=== PATIENT | male | born 1940 | race Caucasian/White ===

== ENCOUNTER 2018-04-29 06:50 | Observation (INO) | payer MEDICARE, SELFPAY ==
[2018-04-29] VITALS (16 sets, daily range): BP systolic 116–159; BP diastolic 7–88; PULSE 62–75; RESP 14–19; TEMP 36.5–37; O2SAT 94–99; BMI 33.7
--- NOTE | 2018-04-29 06:55 | RAD_ITS ---
STUDY: X-RAY CHEST REASON FOR EXAM: Male, 77 years old. Chest pain. TECHNIQUE: Single frontal view of the chest. COMPARISON: June 24, 2017 FINDINGS: There is stable mild hyperexpansion. There is no demonstrated pleural abnormality. Normal size heart. Normal mediastinum and savana. Normal visualized pulmonary arteries. There is aortic tortuosity unchanged. Normal visualized thoracic spine. Normal visualized ribs, clavicles, and shoulders. There is no demonstrated abnormality of the visualized soft tissue structures of the upper abdomen. RAD/Chest 1 View IMPRESSION: Stable mild hyperexpansion. No acute pathology. Electronically Signed: Amado Sethi MD at 11:17 EDT , Service support ,
--- NOTE | 2018-04-29 10:15 | DT_ITS ---
This patient was seen during an EMR downtime April 22, 2018 - April 29, 2018. This patient may have a combination of paper and electronic documentation or all paper documentation. All documentation is viewable within the e-chart portion of [employer] for each patient visit.
--- NOTE | 2018-04-29 10:55 | PCM.HP.STD ---
Problem List (1) Chest pain Status: Acute Qualifiers: Chest pain type: unspecified Qualified Code(s): R07.9 - Chest pain, unspecified (2) CAD (coronary artery disease) Status: Chronic Qualifiers: Coronary Disease-Associated Artery/Lesion type: [place] artery Associated angina: with unspecified angina (3) Chronic renal failure, stage 3 (moderate) Status: Chronic (4) HTN (hypertension) Status: Chronic Qualifiers: Hypertension type: essential hypertension Qualified Code(s): I10 - Essential (primary) hypertension (5) ETHAN (obstructive sleep apnea) Status: Chronic Comment: new diagnosis 04/2016 History of Present Illness Date of Admission: 04/29/18 Chief Complaint: Chest pain - 1 day The patient is a 77 year old M with past medical history of CAD status post 6 stents, chronic atrial fibrillation status post ablation, on chronic anticoagulation, hypertension, type 2 diabetes not on medication who comes in with complaints of angina that has been going on for months. Patient follows up with Dr. Banks in the outpatient and also plan for stress test versus cardiac cath. Patient woke up in the morning of the admission around 4 AM was sudden gradual onset of chest pain which was in the substernal and left side of the chest. Pain was described as crushing associated with some nausea but no diaphoresis or dizziness or palpitation. Pain lasts for about 15-20 minutes and is usually relieved by nitroglycerin. Patient had more than 2 nitroglycerin at home but was not getting relieved his family called the ambulance. In the ED, patient's initial EKG was unremarkable. Vitals were stable. He got a couple more doses of nitro which was still not being relieved and he subsequently was put on a nitro drip. At time of being seen, pain is less now for over 10, remains on nitro drip, no dizziness or palpitations or orthopnea or PND or leg edema. Past Medical History Past Medical History (Chronic Problems): Chronic Problems Chronic renal failure, stage 3 (moderate) (Chronic) H/O cardiac radiofrequency ablation (Chronic) March 2017 at the [facility] facility in [place] ETHAN (obstructive sleep apnea) (Chronic) new diagnosis 04/2016 Skin cancer (Chronic) not melanomas Chronic fatigue (Chronic) CAD (coronary artery disease) (Chronic) Osteoarthritis (Chronic) Glucose intolerance (pre-diabetes) (Chronic) S/P PTCA (percutaneous transluminal coronary angioplasty) (Chronic) has had 6 stents PAF (paroxysmal atrial fibrillation) (Chronic) GERD (gastroesophageal reflux disease) (Chronic) HTN (hypertension) (Chronic) Obesity (Chronic) Allergies adhesive tape Allergy (Verified 09/18/17 09:49) Rash Latex, Natural Rubber Allergy (Verified 09/18/17 09:49) Other TAPE BREAKS OUT IN HIVES codeine Adverse Reaction (Verified 09/18/17 09:49) Other HEART RACE hydrocodone bitartrate [From Vicodin] Adverse Reaction (Verified 09/18/17 09:49) Nausea meperidine HCl [From Demerol] Adverse Reaction (Verified 09/18/17 09:49) Other HEART RACE morphine Adverse Reaction (Verified 09/18/17 09:49) Vomiting propoxyphene napsylate [From Darvocet-N] Adverse Reaction (Verified 09/18/17 09:49) Other HEART RACE Home Medications: Ambulatory Orders Medication Instructions Recorded Apixaban [Eliquis] 5 mg PO BID 05/18/16 Atorvastatin Calcium [Lipitor] 40 mg PO QHS 05/18/16 Cholecalciferol (VIT D3) [Vitamin 1,000 unit PO DAILY 05/18/16 D3] Pantoprazole Sodium [Protonix] 40 mg PO DAILY 05/18/16 Dofetilide [Tikosyn] 250 mcg PO Q12 #60 capsule 05/19/16 Magnesium Oxide [Mag-Ox 400] 400 mg PO DAILYCM #90 tablet 05/23/16 Melatonin 3 mg PO QHS #90 tablet 05/23/16 Nitroglycerin [Nitrostat] 0.4 mg SUBLINGUAL Q5M PRN #1 tablet 05/23/16 Aspirin E.C. [Ecotrin] 81 mg PO DAILY@0807/26/16 Cyanocobalamin [Vitamin B12] 1,000 mcg PO DAILY@00 11/23/16 Metoprolol(XL)Succ [Toprol Xl 25 mg PO DAILY 06/24/17 (Beta Rebeca)] Senna/Docusate Sodium [Senokot-S] 1 tablet PO DAILY 06/24/17 Losartan Potassium [Cozaar] 50 mg PO DAILY 09/18/17 Celecoxib [Celebrex] 200 mg PO BID #30 capsule 10/03/17 Surgical History: total knee arthroplasty - Left, - - cervical fusion, 3 rotator cuff surgeries, lumbar fusion with an 8 inch kj, carpal tunnel surgery BL, 6 stents and 8 heart caths, radiofrequency ablation for atrial fibrillation Psychiatric History: No pertinent psych hx Smoking Status: Never smoker - *Family History Maternal History Items: Heart Disease Paternal History Items: No pertinent history Review of Systems Constitutional: Denies: Anorexia, Chills, Fever, Malaise, Weakness, Weight Change Eyes: Denies: Blurred vision, Cataracts, Conjunctivae Inflammation, Pain, Redness, Vision Change HEENT: Denies: Difficulty Hearing, Difficulty Swallowing, Head Aches, Hearing Changes, Nasal bleeding, Sinus Congestion, Sinus Drainage Cardiovascular: Reports: Chest Pain, Chest Pressure, Chest Tightness, Light Headedness. Denies: Heaviness, Orthopnea, Palpitations, Paroxysmal Noc. Dyspnea, Syncope Respiratory: Reports: Shortness of breath upon exertion. Denies: Cough, Hemoptysis, Pleuritic Pain, Shortness of Breath, Shortness of breath at rest, Sputum production Gastrointestinal: Denies: Abdominal Pain, Constipation, Hematemesis, Hematochezia, Nausea, Vomiting Genitourinary: Denies: Dysuria, Frequency, Incontinence, Nocturia Musculoskeletal: Denies: Joint Pain, Joint stiffness, Joint swelling, Joint Tenderness Skin: Denies: Rash, Wounds Neurological: Denies: Numbness, Tingling, Focal weakness Psychiatric: Denies: Anxiety, Depression, Homicidal Ideations, Suicidal Ideations Hematologic/ Lymphatic: Denies: Easy Bruising, Easy Bleeding VTE Information - Inpt Only VTE Present on Admission: No VTE Pharm Prophylaxis ordered?: Yes - Physical Exam General: Alert, Oriented x3, Cooperative, No apparent distress, - - Obese, not pale, no jaundice HEENT: Atraumatic, PERRLA, EOMI, Normocephalic Oral: Moist Mucosa Neck: Supple Lungs: Clear to auscultation, Normal air movement Cardiovascular: Regular rate, Regular Rhythm, Normal S1, Normal S2, No murmurs Abdomen: Bowel Sounds Present, Soft, Non Tender, Non-Distended, No Hepato-splenomegaly Extremities: No edema Skin: No rashes, No breakdown Musculoskeletal: No Tenderness to Palpation of Joints or Extremities Neurological: Cranial nerves II-XII grossly intact Psych/Mental Status: Normal Affect, Appropriate Weight: 103.5 kg Body Mass Index (BMI) 33.7 Assessment/Plan All Active Problems Chest pain (Acute) DVT (deep venous thrombosis) (Resolved) Diastolic CHF, acute (Resolved) 77 year old M with past medical history of CAD status post 6 stents, chronic atrial fibrillation status post ablation, on chronic anticoagulation, hypertension, type 2 diabetes not on medication who comes in with complaints of angina that has been going on for months. 1. Chest pain, acute on chronic angina, and the patient with complex cardiac history, history of 6 stents, no acute ST-T changes, stable vitals, initial troponins have been negative Plan: Admit to PCU, monitor on telemetry, trend troponins, cardiology consult in the light of patient's past medical history, G records from the [facility] 2. CAD status post stents, aspirin, statin, metoprolol, losartan 3. Chronic Atrial fibrillation status post ablation, in normal sinus rhythm, on Eliquis and Tikosyn 4. Hypertension, controlled, continue losartan and metoprolol 5. Obesity, BMI of 33.7, diet and exercise recommended 6. Chronic low back pain status post kj placement, not on any chronic pain medication back from NSAIDs, will hold NSAIDs for now 7. CKD stage III, creatinine appears around 1.75, will obtain records from the [facility] system to compare 8. DVT prophylaxis with heparin subcu Code Visit OBSV E&M: [id number] Initial observation care L3
--- NOTE | 2018-04-29 12:53 | CHAPLAIN ---
Type of Pastoral Visit _x__ Initial Visit ___ Follow-up Visit ___ On-call Visit ___ General Patient Visit ___ Spiritual Assessment ___ Family Conference ___ Bereavement ___ Rapid Response ___ Code Blue ___ Other (describe below) Pastoral Care Referral From ___ Patient _x__ Family ___ Nurse ___ Physician ___ Mobile Device Developer ___ Plugging Machine Operator ___ Other (describe below) Sacrament/Intervention _x__ Active listening ___ Anointing ___ Episcopal ___ Bereavement ___ Communion ___ Katelin exploration ___ ___ Life review _x__ Prayer ___ Reconciliation ___ Sacrament of Sick _x__ Supportive presence ___ Wedding ___ Other (describe below) Pastoral Comments family member asked for a 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
[2018-04-29] MEDS: Aspirin E.C. 81 MG Tablet PO (13:28)
[2018-04-29] MEDS: Losartan Potassium 50 MG Tablet PO (13:28)
[2018-04-29] MEDS: Cyanocobalamin 500 MCG Tablet 1000 MCG PO (13:28)
[2018-04-29] MEDS: Dofetilide 250 MCG Capsule PO ×2 (13:29→22:25)
[2018-04-29] MEDS: Metoprolol(XL)Succ 25 MG Tablet PO (13:29)
[2018-04-29] MEDS: Pantoprazole Sodium 40 MG Tablet PO (13:29)
[2018-04-29] MEDS: Senna/Docusate Sodium 1 Tablet PO (13:29)
[2018-04-29] MEDS: APIXABAN 5 MG TABLET PO (13:30)
--- NOTE | 2018-04-29 13:40 | EKG12_ITS ---
Test Reason : CP Blood Pressure : / mmHG Vent. Rate : 071 BPM Atrial Rate : 071 BPM P-R Int : 222 ms QRS Dur : 084 ms QT Int : 406 ms P-R-T Axes : -20 021 010 degrees QTc Int : 441 ms Sinus rhythm with 1st degree A-V block Otherwise normal ECG Confirmed by JENNA LORD, WALTER ([id number]), science editor NAINA VALERIO ([id number] on 05/01/2018 5:57:44 PM Referred By: Sergio Odom Confirmed By:WALTER WEST MD
--- NOTE | 2018-04-29 13:40 | EKG12_ITS ---
Test Reason : REPEAT-CP Blood Pressure : / mmHG Vent. Rate : 080 BPM Atrial Rate : 080 BPM P-R Int : 206 ms QRS Dur : 082 ms QT Int : 392 ms P-R-T Axes : 000 021 013 degrees QTc Int : 452 ms Normal sinus rhythm Normal ECG Confirmed by JENNA LORD, WALTER ([id number]), market editor NAINA VALERIO ([id number]) on 05/01/2018 5:57:24 PM Referred By: Sergio Odom Confirmed By:WALTER WEST MD
[2018-04-29 16:43] LABS: BUN 18 mg/dL (7-18); BUN/Creat Ratio 13.3 RATIO (10-20); Calcium,Total 8.6 mg/dL (8.5-10.1); Creatinine, Serum 1.35 mg/dL (0.70-1.30); EST Glomerular Filtration Rate 54 mL/min (>60); Est Glom Filt Rate - Afr Amer 65 mL/min (>60); Glucose 117 mg/dL (74-106)
[2018-04-29 16:44] LABS: Anion Gap 7 (5-15); Chloride 108 mmol/L (98-107); Sodium Level 142 mmol/L (136-145)
--- NOTE | 2018-04-29 18:44 | CON.PCM_ITS ---
Reason for Consult Date of Consultation: 04/29/18 Reason for Consultation: Chest discomfort. History of Present Illness: The patient is a 77 year old M with previously known coronary artery disease status post previous stenting as well as radiofrequency ablation has been complaining of chest discomfort over the last few days. He says that this morning he started experiencing chest discomfort described as a heaviness radiating across his neck for which he took one sublingual nitroglycerin. 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 He was started on intravenous nitroglycerin with improvement in his discomfort. He has not had any palpitations no dizziness no diaphoresis no near syncope or syncope he has not had any irregular heartbeats. He has been compliant with all his medications. Currently he is pain-free. [] Past Medical History Allergies/Adverse Reactions: Allergies adhesive tape Allergy (Verified 09/18/17 09:49) Rash Latex, Natural Rubber Allergy (Verified 09/18/17 09:49) Other TAPE BREAKS OUT IN HIVES codeine Adverse Reaction (Verified 09/18/17 09:49) Other HEART RACE hydrocodone bitartrate [From Vicodin] Adverse Reaction (Verified 09/18/17 09:49) Nausea meperidine HCl [From Demerol] Adverse Reaction (Verified 09/18/17 09:49) Other HEART RACE morphine Adverse Reaction (Verified 09/18/17 09:49) Vomiting propoxyphene napsylate [From Darvocet-N] Adverse Reaction (Verified 09/18/17 09: 49) Other HEART RACE Home Medications: Ambulatory Orders Medication Instructions Recorded Apixaban [Eliquis] 5 mg PO BID 05/18/16 Atorvastatin Calcium [Lipitor] 40 mg PO QHS 05/18/16 Cholecalciferol (VIT D3) [Vitamin 1,000 unit PO DAILY 05/18/16 D3] Pantoprazole Sodium [Protonix] 40 mg PO DAILY 05/18/16 Dofetilide [Tikosyn] 250 mcg PO Q12 #60 capsule 05/19/16 Magnesium Oxide [Mag-Ox 400] 400 mg PO DAILYCM #90 tablet 05/23/16 Melatonin 3 mg PO QHS #90 tablet 05/23/16 Nitroglycerin [Nitrostat] 0.4 mg SUBLINGUAL Q5M PRN #1 tablet 05/23/16 Aspirin E.C. [Ecotrin] 81 mg PO DAILY@0800 07/26/16 Cyanocobalamin [Vitamin B12] 1,000 mcg PO DAILY@0800 11/23/16 Metoprolol(XL)Succ [Toprol Xl 25 mg PO DAILY 06/24/17 (Beta Rebeca)] Senna/Docusate Sodium [Senokot-S] 1 tablet PO DAILY 06/24/17 Losartan Potassium [Cozaar] 50 mg PO DAILY 09/18/17 Celecoxib [Celebrex] 200 mg PO BID #30 capsule 10/03/17 Past Medical History (Chronic Problems): Chronic Problems Chronic renal failure, stage 3 (moderate) (Chronic) H/O cardiac radiofrequency ablation (Chronic) March 2017 at the [facility] facility in [place] ETHAN (obstructive sleep apnea) (Chronic) new diagnosis 04/2016 Skin cancer (Chronic) not melanomas Chronic fatigue (Chronic) CAD (coronary artery disease) (Chronic) Osteoarthritis (Chronic) Glucose intolerance (pre-diabetes) (Chronic) S/P PTCA (percutaneous transluminal coronary angioplasty) (Chronic) has had 6 stents PAF (paroxysmal atrial fibrillation) (Chronic) GERD (gastroesophageal reflux disease) (Chronic) HTN (hypertension) (Chronic) Obesity (Chronic) Surgical History: total knee arthroplasty - Left, - - cervical fusion, 3 rotator cuff surgeries, lumbar fusion with an 8 inch kj, carpal tunnel surgery BL, 6 stents and 8 heart caths, radiofrequency ablation for atrial fibrillation Psychiatric History: No pertinent psych hx - *Family History Maternal History Items: Heart Disease Paternal History Items: No pertinent history Smoking Status: Never smoker Alcohol: None Drugs: None Review of Systems - Review of Systems General: Denies: Fever, Night Sweats, Fatigue Cardiovascular: Reports: Chest Discomfort, Chest Pressure, Chest Tightness. Denies: Shortness of Breath, Orthopnea, PND, Peripheral Edema, Palpitations, Lightheadedness, Dizziness, Near Syncope, Syncope Respiratory: Denies: Cough, Sputum Production, Hemoptysis Gastrointestinal: Denies: Hematemesis, Hematochezia, Melena Genitourinary: Denies: Dysuria, Hematuria Skin: Denies: Rash Subjectve: Pleasant gentleman in no apparent distress Objective: Vital Signs Temp Pulse Resp BP Pulse Ox 98.3 F 67 14 128/75 H 97 04/29/18 18:00 04/29/18 18:00 04/29/18 18:00 04/29/18 18:00 04/29/18 18:00 Oxygen Delivery Method Room Air Weight: 228 lb 2.855 oz Body Mass Index (BMI) 33.7 Intake and Output for Last 24 Hours 04/27/18 04/28/18 04/29/18 23:59 23:59 23:59 Intake Total 567 / 567 Balance 567 / 567 General: Awake, Alert, Oriented x 3 HEENT: PERRL, EOMI, Sclera Non Icteric Neck: Supple, Good ROM, No Lymph Node Enlargement Lungs: Clear to auscultation Cardiovascular: Regular Rhythm, Normal S1, Normal S2, No Murmurs, No Rubs, No Gallops Vascular: No Carotid Bruits, Normal Femoral Pulses, Normal Radial Pulses, Normal Dorsalis Pedal Pulse, Normal Posterior Tibial Pulses Abdomen: Bowel Sounds Present, Soft, Non Tender, No HSM, No Organomegaly Extremities: No Cyanosis, No Clubbing, No edema Neurological: No Focal Motor or Sensory Deficit 04/29/18 11:40: Troponin I < 0.015 Rhythm: EKG: Normal sinus rhythm with a rate of 80 bpm and no acute changes. Assessment/Plan 1. Chest pain-recent angina. Ms. Hodgson presents with chest discomfort which is suggestive of recent angina. This appears to be well relieved by nitroglycerin. Due to his previous history of coronary artery stenting my recommendation will be for us to forego stress testing and proceed directly to a cardiac catheterization. Risks benefits and alternatives were explained to him he understands and agrees to proceed. Performed the above via the radial approach. 2. History of atrial fibrillation. He does have a history of atrial fibrillation currently maintaining sinus rhythm on the anticoagulation as well as the Tikosyn. My recommendation would be for him to continue the same. The anticoagulation however will be held pending his cardiac catheterization. 3. Hypertension. His blood pressure appears to be well controlled on the current medications with the Cozaar which will be continued. 4. Lipidemia. He does have a history of hyperlipidemia and following his coronary artery stenting the plan would be to continue him on high intensity statin. No other major changes will be made. Thank you for allowing me to participate in the care of your patient. Please don't hesitate to call if any issues arise
[2018-04-29] MEDS: MELATONIN 3 MG TABLET PO (22:25)
[2018-04-29] MEDS: Atorvastatin Calcium 40 MG Tablet PO (22:25)
[2018-04-30] VITALS (15 sets, daily range): BP systolic 96–132; BP diastolic 61–76; PULSE 58–65; RESP 14–16; TEMP 36.8–36.9; O2SAT 94–99
[2018-04-30 03:57] LABS: Hematocrit 41.1 % (40-54); Hemoglobin 13.9 g/dl (13.0-16.5); Mean Corp Hgb Conc 33.8 g/gl (32-36); Mean Corpuscular Hgb 29.7 pg (27.0-32.0); Mean Corpuscular Volume 87.8 fL (80-94); Mean Platelet Vol. 9.1 fl (6.2-12.0); Platelet Count 188 K/mm3 (150-450); RBC Distribution Width CV 14.5 % (11.6-14.6); RBC Distribution Width SD 46.5 fl (35.1-43.9); Red Blood Count 4.68 M/mm3 (4.6-6.2); White Blood Count 7.4 K/mm3 (4.4-11.0)
[2018-04-30 04:02] LABS: International Normalized Ratio 1.2; Prothrombin Time (Protime)PT. 15.3 SECONDS (11.7-14.9)
[2018-04-30 04:15] LABS: Anion Gap 6 (5-15); BUN 15 mg/dL (7-18); BUN/Creat Ratio 11.8 RATIO (10-20); Calcium,Total 8.9 mg/dL (8.5-10.1); Chloride 110 mmol/L (98-107); Creatinine, Serum 1.27 mg/dL (0.70-1.30); EST Glomerular Filtration Rate 58 mL/min (>60); Est Glom Filt Rate - Afr Amer 71 mL/min (>60); Glucose 108 mg/dL (74-106); Potassium 4.3 mmol/L (3.5-5.1); Sodium Level 144 mmol/L (136-145)
[2018-04-30 04:28] LABS: Scan Indicated on CBC? Y/N NO
--- NOTE | 2018-04-30 05:00 | EKG12_ITS ---
Test Reason : AM EKG Blood Pressure : / mmHG Vent. Rate : 083 BPM Atrial Rate : 083 BPM P-R Int : 252 ms QRS Dur : 080 ms QT Int : 390 ms P-R-T Axes : 037 029 013 degrees QTc Int : 458 ms Sinus rhythm with 1st degree A-V block Otherwise normal ECG Confirmed by MARISOL LORD, EVARISTO ([id number]), news copy editor NAINA VALERIO ([id number]) on 05/03/2018 1:44:20 PM Referred By: Sergio Odom Confirmed By:EVARISTO DAMON MD
[2018-04-30] MEDS: Losartan Potassium 50 MG Tablet PO (05:20)
[2018-04-30] MEDS: Metoprolol(XL)Succ 25 MG Tablet PO (05:20)
[2018-04-30] MEDS: Dofetilide 250 MCG Capsule PO (05:20)
[2018-04-30] MEDS: Aspirin E.C. 81 MG Tablet PO (05:21)
[2018-04-30 05:41] LABS: Bacteria 0 SEEN /hpf (None Seen); Mucous, Urine 0 SEEN /hpf (<or=2+); Red Blood Cells-Urine 0 SEEN /hpf (0-5); White Blood Cells 0 SEEN /hpf (0-5)
[2018-04-30 05:50] LABS: Color, Urine Yellow (Yellow); Glucose, Dipstick Normal (Normal); Ketone-Dipstick Negative (Negative); Leukocyte Esterase-Dipstick Negative /ul (Negative); Nitrite-Dipstick Negative (Negative); Occult Blood-Urine Negative /ul (Negative); Protein-Dipstick Negative (Negative); Urine Bilirubin Dipstick Negative (Negative); Urine Clarity Sl. Cloudy (Clear); Urine Urobilinogen Normal (Normal)
[2018-04-30 05:59] LABS: Squamous Epithelial Cells - UA 0-5 SEEN /hpf (0-5)
--- NOTE | 2018-04-30 06:58 | PCM.PN.HOSP ---
Vitals/I&O's: Vital Signs Temp Pulse Resp BP Pulse Ox 98.4 F 65 16 132/76 H 98 04/30/18 05:18 04/30/18 05:20 04/30/18 05:18 04/30/18 05:18 04/30/18 05:18 Oxygen Delivery Method Room Air Weight: 103.5 kg Body Mass Index (BMI) 33.7 Intake and Output for Last 24 Hours 04/28/18 04/29/18 04/30/18 23:59 23:59 23:59 Intake Total 567 / 567 Balance 567 / 567 Laboratory Results 04/29/18 11:40: Troponin I < 0.015 04/30/18 01:50: Urine Color Yellow, Urine Clarity Sl. Cloudy, Urine pH 6.0, Ur Specific [place] 1.010, Urine Protein Negative, Urine Glucose (UA) Normal, Urine Ketones Negative, Urine Occult Blood Negative, Urine Nitrite Negative, Urine Bilirubin Negative, Urine Urobilinogen Normal, Ur Leukocyte Esterase Negative, Urine RBC 0 SEEN, Urine WBC 0 SEEN, Ur Squamous Epith Cells 0-5 SEEN, Urine Bacteria 0 SEEN, Urine Mucus 0 SEEN 04/30/18 03:40: WBC 7.4, RBC 4.68, Hgb 13.9, Hct 41.1, MCV 87.8, MCH 29.7, MCHC 33.8, RDW 14.5, RDW Differential 46.5 H, Plt Count 188, MPV 9.1 04/30/18 03:40: Sodium 144, Potassium 4.3, Chloride 110 H, Carbon Dioxide 28.0, Anion Gap 6, BUN 15, Creatinine 1.27, Est GFR (MDRD) Af Amer 71, Est GFR (MDRD) Non-Af 58 L, BUN/Creatinine Ratio 11.8, Glucose 108 H, Calcium 8.9 04/30/18 03:40: PT 15.3 H, INR 1.2, APTT 32.0 Current Medications Aspirin (Ecotrin) 81 mg PO DAILY@0800 [facility] Last Admin: 04/30/18 05:21 Dose: 81 mg Atorvastatin Calcium (Lipitor) 40 mg PO QHS [facility] Last Admin: 04/29/18 22:25 Dose: 40 mg Bisacodyl (Dulcolax) 5 mg PO DAILY PRN PRN PRN Reason: Constipation Cholecalciferol (Vitamin D) 1,000 unit PO DAILY [facility] Last Admin: 04/29/18 13:29 Dose: 1,000 unit Cyanocobalamin (Vitamin B12) 1,000 mcg PO DAILY@0800 [facility] Last Admin: 04/29/18 13:28 Dose: 1,000 mcg Dofetilide (Tikosyn) 250 mcg PO Q12 [facility] Last Admin: 04/30/18 05:20 Dose: 250 mcg Sodium Chloride () 1,000 mls @ 15 mls/hr IV .Q48H [facility] PRN Reason: KVO Losartan Potassium (Cozaar) 50 mg PO DAILY [facility] Last Admin: 04/30/18 05:20 Dose: 50 mg Magnesium [facility]ide (Mag-Ox 400) [facility] Melatonin (Melatonin) 3 mg PO QHS [facility] Last Admin: 04/29/18 22:25 Dose: 3 mg Metoprolol Succinate (Toprol Xl (Beta Rebeca)) 25 mg PO DAILY [facility] Last Admin: 04/30/18 05:20 Dose: 25 mg Ondansetron HCl (Zofran) 4 mg IV Q8H PRN PRN PRN Reason: NAUSEA Pantoprazole Sodium (Protonix) 40 mg PO DAILY [facility] Last Admin: 04/29/18 13:29 Dose: 40 mg Psyllium Hydrophilic Mucilloid (Metamucil) 1 packet PO DAILY PRN PRN PRN Reason: CONSTIPATION Senna/Docusate Sodium (Senokot-S, Mague-Colace) 1 tablet PO DAILY [facility] Last Admin: 04/29/18 13:29 Dose: 1 tablet Medical Necessity - Tobacco Use Smoking Status: Never smoker Assessment/Plan All Active Problems Chest pain (Acute) DVT (deep venous thrombosis) (Resolved) Diastolic CHF, acute (Resolved)
--- NOTE | 2018-04-30 08:07 | PN.CARD_ITS ---
Subjectve: The patient was seen and evaluated. Appears to be doing well. Had uneventful night. Objective: Vital Signs Temp Pulse Resp BP Pulse Ox 98.4 F 65 16 132/76 H 98 04/30/18 05:18 04/30/18 05:20 04/30/18 05:18 04/30/18 05:18 04/30/18 05:18 Oxygen Delivery Method Room Air Weight: 228 lb 2.855 oz Body Mass Index (BMI) 33.7 Intake and Output for Last 24 Hours 04/28/18 04/29/18 04/30/18 23:59 23:59 23:59 Intake Total 567 / 567 Balance 567 / 567 General: Awake, Alert, Oriented x 3 HEENT: PERRL, EOMI, Sclera Non Icteric Neck: Supple, Good ROM, No Lymph Node Enlargement Lungs: Clear to auscultation Cardiovascular: Regular Rhythm, Normal S1, Normal S2, No Murmurs, No Rubs, No Gallops Vascular: No Carotid Bruits, Normal Femoral Pulses, Normal Radial Pulses, Normal Dorsalis Pedal Pulse, Normal Posterior Tibial Pulses Abdomen: Bowel Sounds Present, Soft, Non Tender, No HSM, No Organomegaly Extremities: No Cyanosis, No Clubbing, No edema Neurological: No Focal Motor or Sensory Deficit 04/29/18 11:40: Troponin I < 0.015 04/30/18 01:50: Urine Color Yellow, Urine Clarity Sl. Cloudy, Urine pH 6.0, Ur Specific [place] 1.010, Urine Protein Negative, Urine Glucose (UA) Normal, Urine Ketones Negative, Urine Occult Blood Negative, Urine Nitrite Negative, Urine Bilirubin Negative, Urine Urobilinogen Normal, Ur Leukocyte Esterase Negative, Urine RBC 0 SEEN, Urine WBC 0 SEEN 04/30/18 03:40: WBC 7.4, RBC 4.68, Hgb 13.9, Hct 41.1, MCV 87.8, MCH 29.7, MCHC 33.8, RDW 14.5, RDW Differential 46.5 H, Plt Count 188, MPV 9.1 04/30/18 03:40: Sodium 144, Potassium 4.3, Chloride 110 H, Carbon Dioxide 28.0, Anion Gap 6, BUN 15, Creatinine 1.27, Est GFR (MDRD) Af Amer 71, Est GFR (MDRD) Non-Af 58 L, BUN/Creatinine Ratio 11.8, Glucose 108 H, Calcium 8.9 04/30/18 03:40: PT 15.3 H, INR 1.2, APTT 32.0 Rhythm: EKG: ECHO: Stress Test: Cardiac Cath: PCI: CT Surgery: Holter monitor: EPS: PPM: CXR: Chest CT Scan: Medical Necessity - Tobacco Use Smoking Status: Never smoker Assessment/Plan 1. Chest pain-recent angina. Ms. Hodgson presents with chest discomfort which is suggestive of recent angina. Cardiac catheterization this morning demonstrated the following: Normal left main coronary artery. Left anterior descending artery previously stented with mild in-stent stenosis. Ramus intermedius with mild diffuse proximal disease. Left circumflex artery with no high-grade stenosis. Codominant right coronary artery with no high-grade stenosis. Preserved left ventricular ejection fraction. Based on the above angiographic findings the patient would be continued on medical therapy maximizing it and adding Norvasc to his regimen. 2. History of atrial fibrillation. He does have a history of atrial fibrillation currently maintaining sinus rhythm on the anticoagulation as well as the Tikosyn. My recommendation would be for him to continue the same. 3. Hypertension. His blood pressure appears to be well controlled on the current medications with the Cozaar which will be continued. 4. Lipidemia. He does have a history of hyperlipidemia and following his coronary artery stenting the plan would be to continue him on high intensity statin. No other major changes will be made. Thank you for allowing me to participate in the care of your patient. Please don't hesitate to call if any issues arise From the cardiac standpoint the patient can be discharged later today.
--- NOTE | 2018-04-30 08:24 | CL.D_ITS ---
Patient Name: JG CHAHAL Study Date: 04/30/2018 Performing: Humberto Tierney MD Ht: 69 inches 175 cm : 1940 Wt: 229.6 lbs 104 kg Age: 77 Gender: male BSA: 2.19 PROCEDURE(S) PERFORMED [id number] CLINICAL PROFILE AND INDICATIONS Indications: Worsening Angina Heart Failure: None Stress/Imaging Stress/Image Study Performed: No CAD Presentations: Stable angina. CONCLUSIONS Mild diffuse coronary atherosclerosis involving mild in-stent stenosis of the stent in the left anter ior descending artery with no high-grade stenosis noted. RECOMMENDATIONS Medical therapy Resume anticoagulation Sunday p.m. DESCRIPTION OF PROCEDURE The patient arrived to the procedure lab. The risks and benefits of the procedure as well as a full d escription of our services here and current unavailability of surgical backup were fully explained to the patient and/or their significant other prior to the catheterization. The Timeout was completed, verifying the correct patient and procedure. The patient's procedural site was prepped and draped in the usual fashion. Local anesthetic was given subcutaneously to right radial region with Lidocaine 2% . Using a modified Seldinger technique, arterial access was obtained via the right radial artery, a 6 Fr sheath was inserted. Left Coronary Artery selective angiography was performed in multiple views u sing a 5 Fr. 4.0 Hurricane catheter. Right Coronary Artery selective angiography was then performed in mu ltiple views using a 5 Fr. 4.0 Hurricane catheter. Left Ventriculography was performed in VARELA projection using a 5 Fr. Pigtail catheter. LV to AO pullback pressures were then recorded.The arterial sheath wa s pulled and a TR Band was applied for hemostasis 14ml air CORONARY ANGIOGRAPHY DOMINANCE: Co- Dominant LEFT HEART ASSESSMENT Left Ventricular Ejection Fraction: by LV Gram 60 % Normal LV wall motion Normal Left Ventricular systolic function LEFT MAIN: Angiographically normal LEFT ANTERIOR DECENDING ARTERY: Mild luminal irregularities less than 30% PROX LAD: Previously placed stent has an instent 30 % restenosis MID LAD: Previously placed stent has an instent 30 % restenosis CIRCUMFLEX ARTERY: Mild luminal irregularities OM 1: Ostial - 50 % Stenosis RAMUS: Mild luminal irregularities RIGHT CORONARY ARTERY: Moderate luminal irregularities up to 50% COMPLICATIONS No Complications PROCEDURE MEDICATIONS Versed 1 mg IV Fentanyl 50 mcg IV Oxygen: 2 L/min via nasal cannula Heparin diluted in 23cc Heparinized saline. Patient given 10cc IA of this solution. 04/30/2018 07:49: 51 Verapamil 2.5mg, Ntg 100mcgs, 2000 units of Heparin diluted in 23cc Heparinized saline. Patient give n 10cc IA of this solution. 04/30/2018 07:49:51 SUMMARY OF HEMODYNAMIC DATA Time AIR REST ECG 07:22:10 AO 124/76 (96) SA 07:52:21 LV 144/9, 19 07:59:09 LV 146/9, 18 07:59:15 LV 139/12, 23 08:00:43 LVp 142/10, 25 08:00:49 AOp 149/78 (106) 08:00:54 Signed By Humberto Tierney MD On 04/30/2018 08:23:25 Humberto Tierney MD
[2018-04-30] MEDS: Magnesium Oxide 400 MG Tablet PO (08:36)
[2018-04-30] MEDS: Cyanocobalamin 500 MCG Tablet 1000 MCG PO (08:37)
--- NOTE | 2018-04-30 08:45 | CASEMGMT ---
According to [employer] website, the following are in-network tertiary facilities: [facility], [place], [facility], [facility], [facility], and . Sarah [facility] CM
[2018-04-30] MEDS: Pantoprazole Sodium 40 MG Tablet PO (09:02)
[2018-04-30] MEDS: Senna/Docusate Sodium 1 Tablet PO ×2 (09:02)
[2018-04-30] MEDS: amLODIPine 5 MG Tablet PO (09:04)
--- NOTE | 2018-04-30 10:13 | PCM.DC ---
You will use the following diet at home:: Cardiac Discharge Activity: - - Follow post-op cath instructions. Call your doctor if your incision/area has: Continuous Slow Oozing, Sudden Increased Bleeding, Increased Pain/ Swelling, Increased Redness, Foul Smelling Discharge, Swelling at the incision site Call your doctor if you observe: Shortness of breath, Dizziness, Fainting spells, Chest pain, Increased palpitations (irregular heartbeat) Allergies/Adverse Reactions: Allergies adhesive tape Allergy (Verified 09/18/17 09:49) Rash Latex, Natural Rubber Allergy (Verified 09/18/17 09:49) Other TAPE BREAKS OUT IN HIVES codeine Adverse Reaction (Verified 09/18/17 09:49) Other HEART RACE hydrocodone bitartrate [From Vicodin] Adverse Reaction (Verified 09/18/17 09:49) Nausea meperidine HCl [From Demerol] Adverse Reaction (Verified 09/18/17 09:49) Other HEART RACE morphine Adverse Reaction (Verified 09/18/17 09:49) Vomiting propoxyphene napsylate [From Darvocet-N] Adverse Reaction (Verified 09/18/17 09:49) Other HEART RACE Medications to take at Discharge Apixaban [Eliquis] 5 mg PO BID 05/18/16 Atorvastatin Calcium [Lipitor] 40 mg PO QHS 05/18/16 Cholecalciferol (VIT D3) [Vitamin D3] 1,000 unit PO DAILY 05/18/16 Pantoprazole Sodium [Protonix] 40 mg PO DAILY 05/18/16 Dofetilide [Tikosyn] 250 mcg PO Q12 #60 capsule 05/19/16 Magnesium Oxide [Mag-Ox 400] 400 mg PO DAILYCM #90 tablet 05/23/16 Melatonin 3 mg PO QHS #90 tablet 05/23/16 Nitroglycerin [Nitrostat] 0.4 mg SUBLINGUAL Q5M PRN #1 tablet 05/23/16 Aspirin E.C. [Ecotrin] 81 mg PO DAILY@0807/26/16 Cyanocobalamin [Vitamin B12] 1,000 mcg PO DAILY@0811/23/16 Metoprolol(XL)Succ [Toprol Xl (Beta Rebeca)] 25 mg PO DAILY 06/24/17 Senna/Docusate Sodium [Senokot-S] 1 tablet PO DAILY 06/24/17 Losartan Potassium [Cozaar] 50 mg PO DAILY 09/18/17 Celecoxib [Celebrex] 200 mg PO BID #30 capsule 10/03/17 Amlodipine [Norvasc] 5 mg PO DAILY #30 tab 04/30/18 The following prescriptions were given: Amlodipine [Norvasc] 5 mg PO DAILY #30 tab Primary Care Physician: Galindo Yuan MD [Primary Care Provider] - Please follow up with your Primary Care Physician in: 1 Week Please Follow Up With: Mann Bee MD When: 2 Weeks Proposed Discharge Date: 04/30/18
--- NOTE | 2018-04-30 10:17 | DCINST_ITS ---
You will use the following diet at home:: Cardiac Discharge Activity: - - Follow post-op cath instructions. Call your doctor if your incision/area has: Continuous Slow Oozing, Sudden Increased Bleeding, Increased Pain/ Swelling, Increased Redness, Foul Smelling Discharge, Swelling at the incision site Call your doctor if you observe: Shortness of breath, Dizziness, Fainting spells , Chest pain, Increased palpitations (irregular heartbeat) Allergies/Adverse Reactions: Allergies adhesive tape Allergy (Verified 09/18/17 09:49) Rash Latex, Natural Rubber Allergy (Verified 09/18/17 09:49) Other TAPE BREAKS OUT IN HIVES codeine Adverse Reaction (Verified 09/18/17 09:49) Other HEART RACE hydrocodone bitartrate [From Vicodin] Adverse Reaction (Verified 09/18/17 09:49) Nausea meperidine HCl [From Demerol] Adverse Reaction (Verified 09/18/17 09:49) Other HEART RACE morphine Adverse Reaction (Verified 09/18/17 09:49) Vomiting propoxyphene napsylate [From Darvocet-N] Adverse Reaction (Verified 09/18/17 09: 49) Other HEART RACE Medications to take at Discharge Apixaban [Eliquis] 5 mg PO BID 05/18/16 Atorvastatin Calcium [Lipitor] 40 mg PO QHS 05/18/16 Cholecalciferol (VIT D3) [Vitamin D3] 1,000 unit PO DAILY 05/18/16 Pantoprazole Sodium [Protonix] 40 mg PO DAILY 05/18/16 Dofetilide [Tikosyn] 250 mcg PO Q12 #60 capsule 05/19/16 Magnesium Oxide [Mag-Ox 400] 400 mg PO DAILYCM #90 tablet 05/23/16 Melatonin 3 mg PO QHS #90 tablet 05/23/16 Nitroglycerin [Nitrostat] 0.4 mg SUBLINGUAL Q5M PRN #1 tablet 05/23/16 Aspirin E.C. [Ecotrin] 81 mg PO DAILY@0807/26/16 Cyanocobalamin [Vitamin B12] 1,000 mcg PO DAILY@0811/23/16 Metoprolol(XL)Succ [Toprol Xl (Beta Rebeca)] 25 mg PO DAILY 06/24/17 Senna/Docusate Sodium [Senokot-S] 1 tablet PO DAILY 06/24/17 Losartan Potassium [Cozaar] 50 mg PO DAILY 09/18/17 Celecoxib [Celebrex] 200 mg PO BID #30 capsule 10/03/17 Amlodipine [Norvasc] 5 mg PO DAILY #30 tab 04/30/18 The following prescriptions were given: Amlodipine [Norvasc] 5 mg PO DAILY #30 tab Primary Care Physician: Galindo Yuan MD [Primary Care Provider] - Please follow up with your Primary Care Physician in: 1 Week Please Follow Up With: Mann Bee MD When: 2 Weeks Proposed Discharge Date: 04/30/18
--- NOTE | 2018-04-30 10:27 | PCM.DC.SUM ---
<Sonia Luis - Last Filed: 04/30/18 10:36> Discharge Date and Diagnosis Date of Admission: 04/29/18 Date of Discharge: 04/30/18 - Primary Discharge Diagnosis 1. Acute on chronic angina-ACS ruled out - Secondary Discharge Diagnosis Chronic Problems Chronic renal failure, stage 3 (moderate) (Chronic) H/O cardiac radiofrequency ablation (Chronic) March 2017 at the [facility] facility in [place] ETHAN (obstructive sleep apnea) (Chronic) new diagnosis 04/2016 Skin cancer (Chronic) not melanomas Chronic fatigue (Chronic) CAD (coronary artery disease) (Chronic) Osteoarthritis (Chronic) Glucose intolerance (pre-diabetes) (Chronic) S/P PTCA (percutaneous transluminal coronary angioplasty) (Chronic) has had 6 stents PAF (paroxysmal atrial fibrillation) (Chronic) GERD (gastroesophageal reflux disease) (Chronic) HTN (hypertension) (Chronic) Obesity (Chronic) Hospital Course and Treatment Imaging Results: Diagnostic Data Chest X-Ray 04/29/18 06:55 IMPRESSION: Stable mild hyperexpansion. No acute pathology. Electronically Signed: Amado Sethi MD at 11:17 EDT , Service support , Dr. Tierney- Cardiology Operations: None Procedures: Cardiac catheterization Summary of Care Provided: The patient is a 77 year old M admitted 04/29/2018 due to chest pain. His past medical history of CAD status post 6 stents, paroxysmal atrial fibrillation status post ablation, hypertension, hyperlipidemia, type 2 diabetes mellitus, chronic kidney disease stage III, GERD, obesity, obstructive sleep apnea. He is a patient of Dr. Banks, [facility] cardiology. Cardiology consulted. He was initially placed on nitro drip. EKG without ST T changes. Troponin negative. Patient underwent cardiac catheterization 04/30/2018 which showed normal left main coronary artery, left anterior descending artery previously stented with mild in-stent stenosis, ramus intermedius with mild diffuse proximal disease, left circumflex artery with no high-grade stenosis, codominant right coronary artery with no high-grade stenosis, LVEF 60%. Other chronic medical conditions as noted above are stable at this time. Patient will continue with medical management including aspirin, statin, Eliquis, tikosyn, losartan, metoprolol. Additionally, he was started on amlodipine 5 mg daily. Patient continues to complain of minimal continuous left-sided chest discomfort. Denies other associated symptoms. Patient is stable for discharge home. To follow-up with primary care physician in 1 week and cardiology in 2 weeks. General: Alert, Oriented x3, Cooperative, No apparent distress HEENT: Atraumatic, PERRLA, EOMI, Normocephalic Oral: Moist Mucosa Neck: Supple Lungs: Clear to auscultation, Normal air movement Cardiovascular: Regular rate, Regular Rhythm, Normal S1, Normal S2, No murmurs Abdomen: Bowel Sounds Present, Soft, Non Tender, Non-Distended, No Hepato-splenomegaly Extremities: No edema Skin: No rashes, No breakdown Musculoskeletal: No Tenderness to Palpation of Joints or Extremities Neurological: Cranial nerves II-XII grossly intact Psych/Mental Status: Normal Affect, Appropriate Patient seen exam prior to discharge. Physical assessment as noted above. Patient stable for discharge home with the follow-up recommendations as noted above. This patient was seen by TRIP Black under the supervision of Dr. Saeed. Discharge Diet: Low fat/ Low Cholesterol, Carb Control Diet Discharge Activity: - - Follow post-op cath instructions. Call your doctor if your incision/area has: Continuous Slow Oozing, Sudden Increased Bleeding, Increased Pain/ Swelling, Increased Redness, Foul Smelling Discharge, Swelling at the incision site Call your doctor if you observe: Shortness of breath, Dizziness, Fainting spells, Chest pain, Increased palpitations (irregular heartbeat) Home Medications: Medications to take at Discharge Apixaban [Eliquis] 5 mg PO BID 05/18/16 Atorvastatin Calcium [Lipitor] 40 mg PO QHS 05/18/16 Cholecalciferol (VIT D3) [Vitamin D3] 1,000 unit PO DAILY 05/18/16 Pantoprazole Sodium [Protonix] 40 mg PO DAILY 05/18/16 Dofetilide [Tikosyn] 250 mcg PO Q12 #60 capsule 05/19/16 Magnesium Oxide [Mag-Ox 400] 400 mg PO DAILYCM #90 tablet 05/23/16 Melatonin 3 mg PO QHS #90 tablet 05/23/16 Nitroglycerin [Nitrostat] 0.4 mg SUBLINGUAL Q5M PRN #1 tablet 05/23/16 Aspirin E.C. [Ecotrin] 81 mg PO DAILY@0800 07/26/16 Cyanocobalamin [Vitamin B12] 1,000 mcg PO DAILY@0800 11/23/16 Metoprolol(XL)Succ [Toprol Xl (Beta Rebeca)] 25 mg PO DAILY 06/24/17 Senna/Docusate Sodium [Senokot-S] 1 tablet PO DAILY 06/24/17 Losartan Potassium [Cozaar] 50 mg PO DAILY 09/18/17 Celecoxib [Celebrex] 200 mg PO BID #30 capsule 10/03/17 Amlodipine [Norvasc] 5 mg PO DAILY #30 tab 04/30/18 Following Prescrptions Were Given to Patient: Amlodipine [Norvasc] 5 mg PO DAILY #30 tab Primary Care Physician: Galindo Yuan MD [Primary Care Provider] - Please follow up with your Primary Care Physician in: 1 Week Please Follow Up With: Mann Bee MD When: 2 Weeks Disposition: Home Minutes spent on discharge:: 35 Patient Condition:: Stable Medical Necessity - Tobacco Use Smoking Status: Never smoker Meaningful Use Info Meaningful Use Diagnoses (Choose all that apply): None applicable <Paintsil,[place] - Last Filed: 04/30/18 11:14> Discharge Date and Diagnosis - Secondary Discharge Diagnosis Chronic Problems Chronic renal failure, stage 3 (moderate) (Chronic) H/O cardiac radiofrequency ablation (Chronic) March 2017 at the [facility] facility in [place] ETHAN (obstructive sleep apnea) (Chronic) new diagnosis 04/2016 Skin cancer (Chronic) not melanomas Chronic fatigue (Chronic) CAD (coronary artery disease) (Chronic) Osteoarthritis (Chronic) Glucose intolerance (pre-diabetes) (Chronic) S/P PTCA (percutaneous transluminal coronary angioplasty) (Chronic) has had 6 stents PAF (paroxysmal atrial fibrillation) (Chronic) GERD (gastroesophageal reflux disease) (Chronic) HTN (hypertension) (Chronic) Obesity (Chronic) Hospital Course and Treatment Summary of Care Provided: The patient is a 77 year old M [] Code Visit Inpatient E&M: 11555 Disch Hosp
--- NOTE | 2018-04-30 10:36 | DS.PCM_ITS ---
<Sonia Luis - Last Filed: 04/30/18 10:36> Discharge Date and Diagnosis Date of Admission: 04/29/18 Date of Discharge: 04/30/18 - Primary Discharge Diagnosis 1. Acute on chronic angina-ACS ruled out - Secondary Discharge Diagnosis Chronic Problems Chronic renal failure, stage 3 (moderate) (Chronic) H/O cardiac radiofrequency ablation (Chronic) March 2017 at the [facility] facility in [place] ETH[place] (obstructive sleep apnea) (Chronic) new diagnosis 04/2016 Skin cancer (Chronic) not melanomas Chronic fatigue (Chronic) CAD (coronary artery disease) (Chronic) Osteoarthritis (Chronic) Glucose intolerance (pre-diabetes) (Chronic) S/P PTCA (percutaneous transluminal coronary angioplasty) (Chronic) has had 6 stents PAF (paroxysmal atrial fibrillation) (Chronic) GERD (gastroesophageal reflux disease) (Chronic) HTN (hypertension) (Chronic) Obesity (Chronic) Hospital Course and Treatment Imaging Results: Diagnostic Data Chest X-Ray 04/29/18 06:55 IMPRESSION: Stable mild hyperexpansion. No acute pathology. Electronically Signed: Amado Sethi MD at 11:17 EDT , Service support , Dr. Tierney- Cardiology Operations: None Procedures: Cardiac catheterization Summary of Care Provided: The patient is a 77 year old M admitted 04/29/2018 due to chest pain. His past medical history of CAD status post 6 stents, paroxysmal atrial fibrillation status post ablation, hypertension, hyperlipidemia, type 2 diabetes mellitus, chronic kidney disease stage III, GERD, obesity, obstructive sleep apnea. He is a patient of Dr. Banks, [facility] cardiology. Cardiology consulted. He was initially placed on nitro drip. EKG without ST T changes. Troponin negative. Patient underwent cardiac catheterization 04/30/2018 which showed normal left main coronary artery, left anterior descending artery previously stented with mild in-stent stenosis, ramus intermedius with mild diffuse proximal disease, left circumflex artery with no high-grade stenosis, codominant right coronary artery with no high-grade stenosis, LVEF 60%. Other chronic medical conditions as noted above are stable at this time. Patient will continue with medical management including aspirin, statin, Eliquis, tikosyn, losartan, metoprolol. Additionally, he was started on amlodipine 5 mg daily. Patient continues to complain of minimal continuous left-sided chest discomfort. Denies other associated symptoms. Patient is stable for discharge home. To follow-up with primary care physician in 1 week and cardiology in 2 weeks. General: Alert, Oriented x3, Cooperative, No apparent distress HEENT: Atraumatic, PERRLA, EOMI, Normocephalic Oral: Moist Mucosa Neck: Supple Lungs: Clear to auscultation, Normal air movement Cardiovascular: Regular rate, Regular Rhythm, Normal S1, Normal S2, No murmurs Abdomen: Bowel Sounds Present, Soft, Non Tender, Non-Distended, No Hepato- splenomegaly Extremities: No edema Skin: No rashes, No breakdown Musculoskeletal: No Tenderness to Palpation of Joints or Extremities Neurological: Cranial nerves II-XII grossly intact Psych/Mental Status: Normal Affect, Appropriate Patient seen exam prior to discharge. Physical assessment as noted above. Patient stable for discharge home with the follow-up recommendations as noted above. This patient was seen by TRIP Black under the supervision of Dr. Saeed. Discharge Diet: Low fat/ Low Cholesterol, Carb Control Diet Discharge Activity: - - Follow post-op cath instructions. Call your doctor if your incision/area has: Continuous Slow Oozing, Sudden Increased Bleeding, Increased Pain/ Swelling, Increased Redness, Foul Smelling Discharge, Swelling at the incision site Call your doctor if you observe: Shortness of breath, Dizziness, Fainting spells , Chest pain, Increased palpitations (irregular heartbeat) Home Medications: Medications to take at Discharge Apixaban [Eliquis] 5 mg PO BID 05/18/16 Atorvastatin Calcium [Lipitor] 40 mg PO QHS 05/18/16 Cholecalciferol (VIT D3) [Vitamin D3] 1,000 unit PO DAILY 05/18/16 Pantoprazole Sodium [Protonix] 40 mg PO DAILY 05/18/16 Dofetilide [Tikosyn] 250 mcg PO Q12 #60 capsule 05/19/16 Magnesium Oxide [Mag-Ox 400] 400 mg PO DAILYCM #90 tablet 05/23/16 Melatonin 3 mg PO QHS #90 tablet 05/23/16 Nitroglycerin [Nitrostat] 0.4 mg SUBLINGUAL Q5M PRN #1 tablet 05/23/16 Aspirin E.C. [Ecotrin] 81 mg PO DAILY@0800 07/26/16 Cyanocobalamin [Vitamin B12] 1,000 mcg PO DAILY@0800 11/23/16 Metoprolol(XL)Succ [Toprol Xl (Beta Rebeca)] 25 mg PO DAILY 06/24/17 Senna/Docusate Sodium [Senokot-S] 1 tablet PO DAILY 06/24/17 Losartan Potassium [Cozaar] 50 mg PO DAILY 09/18/17 Celecoxib [Celebrex] 200 mg PO BID #30 capsule 10/03/17 Amlodipine [Norvasc] 5 mg PO DAILY #30 tab 04/30/18 Following Prescrptions Were Given to Patient: Amlodipine [Norvasc] 5 mg PO DAILY #30 tab Primary Care Physician: Galindo Yuan MD [Primary Care Provider] - Please follow up with your Primary Care Physician in: 1 Week Please Follow Up With: Mann Bee MD When: 2 Weeks Disposition: Home Minutes spent on discharge:: 35 Patient Condition:: Stable Medical Necessity - Tobacco Use Smoking Status: Never smoker Meaningful Use Info Meaningful Use Diagnoses (Choose all that apply): None applicable <Paintsil,[place] - Last Filed: 04/30/18 11:14> Discharge Date and Diagnosis - Secondary Discharge Diagnosis Chronic Problems Chronic renal failure, stage 3 (moderate) (Chronic) H/O cardiac radiofrequency ablation (Chronic) March 2017 at the [facility] facility in [place] ETH[place] (obstructive sleep apnea) (Chronic) new diagnosis 04/2016 Skin cancer (Chronic) not melanomas Chronic fatigue (Chronic) CAD (coronary artery disease) (Chronic) Osteoarthritis (Chronic) Glucose intolerance (pre-diabetes) (Chronic) S/P PTCA (percutaneous transluminal coronary angioplasty) (Chronic) has had 6 stents PAF (paroxysmal atrial fibrillation) (Chronic) GERD (gastroesophageal reflux disease) (Chronic) HTN (hypertension) (Chronic) Obesity (Chronic) Hospital Course and Treatment Summary of Care Provided: The patient is a 77 year old M [] Code Visit Inpatient E&M: 88743 Disch Hosp
[2018-04-30] MEDS: 0.9% Normal Saline 1,000 ML 15 ML IV (11:38)
[2018-04-30 14:32] LABS: White Blood Count 6.9 K/mm3 (4.4-11.0)
[2018-04-30 14:33] LABS: Absolute Lymphocyte Count 0.98 X10^3/ul (0.83-4.51); Absolute Neutrophil Count 5.3 X10^3/uL (2.0-7.7); Basophil% 0.7 % (0-1); Eosinophils% 1.2 % (0-5); Hematocrit 42.6 % (40-54); Lymphocyte # 0.98 X10^3/ul (4.0); Lymphocyte % 14.2 % (19-41); Mean Corp Hgb Conc 32.9 g/gl (32-36); Mean Corpuscular Hgb 29.2 pg (27.0-32.0); Mean Corpuscular Volume 88.9 fL (80-94); Mean Platelet Vol. 9.5 fl (6.2-12.0); Monocyte% 6.8 % (0-10); Neutrophil # 5.31 X10^3/uL (2.7-7.7); POSITIVE COUNT NO; POSITIVE DIFFERENTIAL NO; POSITIVE MORPHOLOGY NO; Platelet Count 187 K/mm3 (150-450); RBC Distribution Width CV 14.8 % (11.6-14.6); RBC Distribution Width SD 47.5 fl (35.1-43.9); Red Blood Count 4.79 M/mm3 (4.6-6.2)
== END 2018-04-30 12:10 | disposition home or self-care (01) ==
LOC: ED 10:18 → PCU 10:19
PROVIDERS: Admitting Provider Internal Medicine; Emergency Provider Emergency Medicine; Family Provider Internal Medicine; PCP Internal Medicine; Visit Provider Internal Medicine
DX: I25.119 Atherosclerotic heart disease of native coronary artery with unspecified angina pectoris (principal); I48.2 Chronic atrial fibrillation; E78.5 Hyperlipidemia, unspecified; I13.0 Hypertensive heart and chronic kidney disease with heart failure and stage 1 through stage 4 chronic kidney disease, or unspecified chronic kidney disease; E11.22 Type 2 diabetes mellitus with diabetic chronic kidney disease; N18.3 Chronic kidney disease, stage 3 (moderate); I50.31 Acute diastolic (congestive) heart failure; E66.9 Obesity, unspecified; Z68.33 Body mass index [BMI] 33.0-33.9, adult; M54.5 Low back pain; G89.29 Other chronic pain; G47.33 Obstructive sleep apnea (adult) (pediatric); Z79.02 Long term (current) use of antithrombotics/antiplatelets; Z79.82 Long term (current) use of aspirin; Z79.899 Other long term (current) drug therapy
CPT/HCPCS: 36415; 71045; 80048; 81001; 84484; 85025; 85027; 85610; 85730; 93005; 93458; 99152; 99153; 99218; 99285; J7030; Q9967; A4216; C1769; C1894; G0378

== ENCOUNTER 2020-11-09 01:36 | Emergency (ER) | payer MEDICARE, SELFPAY ==
[2020-11-09 01:36] VITALS: BP 116/66; PULSE 76; RESP 18; TEMP 37.2; O2SAT 95; BMI 34.2
[2020-11-09 01:48] VITALS: O2SAT 95
--- NOTE | 2020-11-09 01:56 | RAD_ITS ---
STUDY: X-RAY CHEST REASON FOR EXAM: Male, 80 years old. CP TECHNIQUE: Single AP portable view of the chest. COMPARISON: None. FINDINGS: The lungs are clear and expanded. There is no demonstrated pleural abnormality. Normal size heart. Normal mediastinum and savana. Normal visualized pulmonary arteries. There is atherosclerotic calcification of the aortic arch with tortuosity. There are diffuse degenerative changes of the visualized thoracic spine. Normal visualized ribs, clavicles, and shoulders. There is no demonstrated abnormality of the visualized soft tissue structures of the upper abdomen. RAD/Chest 1 View (Portable) IMPRESSION: Degenerative changes, as described above. No demonstrated acute cardiopulmonary process. Electronically Signed: Manuel Núñez, at 2:37 EST Tel , Service support ,
--- NOTE | 2020-11-09 01:56 | ED.DCSUM_ITS ---
History of Present Illness Chief Complaint: Chest Pain Informant: Patient Narrative: 80-year-old male presenting with chest pain. Symptoms have been present intermittently for 4 days. He states that he thought it was a muscle and he states he still believes it is a muscle. Though he cannot elaborate as to why he believes it is a muscle. He states his chest is not sore. Nothing seems to make it better or worse. He states that it is a burning pain in the center of his chest. This is different than the chest pressure he had with his other episodes of angina he was hoping it would go away but tonight he woke around midnight after about 6 hours of sleep and was sweaty and had the pressure burning in his chest. After a while he called the ambulance to bring him to the hospital. They administered aspirin and nitroglycerin which did seem to help with his symptoms are reportedly coming back. He has a history of prior PTCA as well as ablation for A. fib. He sees a metal fabricating inspector in [place]. He states he used to see Dr. Banks locally for cardiology until he retired. 2017 he had a heart catheterization here that showed mild disease and mild in-stent stenosis but nothing to intervene upon and medical management was recommended. - Past Medical History (1) CAD (coronary artery disease) Status: Chronic (2) Chronic renal failure, stage 3 (moderate) Status: Chronic (3) GERD (gastroesophageal reflux disease) Status: Chronic (4) HTN (hypertension) Status: Chronic (5) ETHAN (obstructive sleep apnea) Status: Chronic Comment: new diagnosis 04/2016 (6) PAF (paroxysmal atrial fibrillation) Status: Chronic (7) S/P PTCA (percutaneous transluminal coronary angioplasty) Status: Chronic Comment: has had 6 stents Past Medical History - Allergies and Home Meds Allergies/Adverse Reactions: Allergies adhesive tape Allergy (Verified 11/09/20 01:39) Rash Latex, Natural Rubber Allergy (Verified 11/09/20 01:39) Other TAPE BREAKS OUT IN HIVES codeine Adverse Reaction (Verified 11/09/20 01:39) Other HEART RACE hydrocodone bitartrate [From Vicodin] Adverse Reaction (Verified 11/09/20 01:39) Nausea meperidine HCl [From Demerol] Adverse Reaction (Verified 11/09/20 01:39) Other HEART RACE morphine Adverse Reaction (Verified 11/09/20 01:39) Vomiting propoxyphene napsylate [From Darvocet-N] Adverse Reaction (Verified 11/09/20 01:39) Other HEART RACE Primary Care Physician: Galindo Yuan MD [Primary Care Provider] - Keep Melly appointment Prior records reviewed: Yes Surgical History: total knee arthroplasty - Left, - - cervical fusion, 3 rotator cuff surgeries, lumbar fusion with an 8 inch kj, carpal tunnel surgery BL, 6 stents and 8 heart caths, radiofrequency ablation for atrial fibrillation Smoking Status: Never smoker Drugs: None - Family History Maternal Family History: Reports: Heart Disease Paternal Family History: Reports: No pertinent history Review of Systems General: Denies: Chills, Fever, Sweats Eyes: Denies: Visual changes - bilaterally, Diplopia ENT: Denies: Rhinorrhea, Sore throat Cardiovascular: Reports: Chest pain. Denies: Palpitations Respiratory: Denies: Dyspnea, Cough, Dyspnea on exertion Gastrointestinal: Denies: Abdominal pain, Nausea, Vomiting, Diarrhea, Melena, Hematochezia Genitourinary: Denies: Dysuria, Hematuria, Frequency Musculoskeletal: Denies: Back pain, Extremity Pain Skin: Denies: Rash, Wounds Neurological: Denies: Headache, Weakness, Numbness Physical Exam Vital Signs/Narrative: Vital Signs Temp Pulse Resp BP Pulse Ox 11/09/20 01:48 95 11/09/20 01:36 98.9 F 76 18 116/66 95 Inital Vital Signs reviewed: Yes General: Well nourished, Well developed, No Acute Distress Head: Normocephalic, Atraumatic Eyes: Perrl, EOMI ENT: Moist mucous membranes, No rhinorrhea Neck: Supple, Nontender Cardiovascular: Regular rate, Regular rhythm, No murmurs Respiratory: No distress, CTA bilaterally, Chest nontender Abdomen: Soft, Nontender, Nondistended, Normal bowel sounds Back: Nontender, Normal Inspection Extremities: Nontender, No edema Skin: Normal color, No rash Neurological: Alert, Oriented x3, Cranial nerves II-XII grossly intact, Normal Strength, Normal Sensation Psychological: Normal affect, Normal Mood Diagnostic/Tx/Re-eval Clinical Impression(s) from Imaging Studies Chest X-Ray 11/09/20 01:56 IMPRESSION: Degenerative changes, as described above. No demonstrated acute cardiopulmonary process. Electronically Signed: Manuel Núñez at 2:37 EST Tel , Service support , Laboratory Last Values WBC 6.2 K/mm3 (4.4-11.0) 11/09/20 01:45 RBC 4.63 M/mm3 (4.6-6.2) 11/09/20 01:45 Hgb 13.3 g/dL (13.0-16.5) 11/09/20 01:45 Hct 40.9 % (40-54) 11/09/20 01:45 MCV 88.3 fL (80-94) 11/09/20 01:45 MCH 28.7 pg (27.0-32.0) 11/09/20 01:45 MCHC 32.5 g/dL (32-36) 11/09/20 01:45 RDW Std Deviation 44.2 fl (35.1-43.9) H 11/09/20 01:45 RDW Coeff of Nicholas 13.8 % (11.6-14.6) 11/09/20 01:45 Plt Count 209 K/mm3 (150-450) 11/09/20 01:45 MPV 9.1 fl (6.2-12.0) 11/09/20 01:45 Immature Gran % (Auto) 0.300 % (0.0-0.9) 11/09/20 01:45 Neut % (Auto) 59.1 % (47-70) 11/09/20 01:45 Lymph % (Auto) 28.8 % (19-41) 11/09/20 01:45 Carver % (Auto) 8.7 % (0-10) 11/09/20 01:45 Eos % (Auto) 2.1 % (0-5) 11/09/20 01:45 Baso % (Auto) 1.0 % (0-1) 11/09/20 01:45 Absolute Neuts (auto) 3.7 X10^3/uL (2.0-7.7) 11/09/20 01:45 Absolute Lymphs (auto) 1.78 X10^3/uL (0.83-4.51) 11/09/20 01:45 Nucleated RBC % 0 % (0-5) 11/09/20 01:45 Sodium 142 mmol/L (136-145) 11/09/20 01:45 Potassium 4.0 mmol/L (3.5-5.1) 11/09/20 01:45 Chloride 109 mmol/L (98-107) H 11/09/20 01:45 Carbon Dioxide 29.0 mmol/L (21.0-32.0) 11/09/20 01:45 Anion Gap 4 (5-15) L 11/09/20 01:45 BUN 18 mg/dL (7-18) 11/09/20 01:45 Creatinine 1.31 mg/dL (0.70-1.30) H 11/09/20 01:45 Estim Creat Clear Calc 44.97 ml/min 11/09/20 01:45 Est GFR (MDRD) Af Amer 68 mL/min (>60) 11/09/20 01:45 Est GFR (MDRD) Non-Af 56 mL/min (>60) L 11/09/20 01:45 BUN/Creatinine Ratio 13.7 RATIO (10-20) 11/09/20 01:45 Glucose 126 mg/dL (74-106) H 11/09/20 01:45 Calcium 8.7 mg/dL (8.5-10.1) 11/09/20 01:45 Troponin I < 0.015 ng/mL (<0.045) 11/09/20 01:45 - EKG Initial EKG Interpretation: Sinus Rhythm - EKG demonstrates a sinus rhythm with first-degree AV block and noted sinus arrhythmia. Rate is 70. I do not appreciate changes consistent with ACS. - Medical Decision Making My interpretation of the single view portable chest x-ray is no acute disease process. Initial EKG is a normal sinus rhythm with first-degree block with no concerning features of ACS. It appears grossly unchanged from April 2018. Initial cardiac enzymes were negative. A delta cardiac enzyme was ordered. This also was negative. Patient originally given GI cocktail and informed nursing that it resolves but it came back. He tells me he takes Protonix in the morning. I would recommend that he follow-up with primary care as he has an appointment on . I recommended he call his metal fabricating inspector today and tell them that he has had his symptoms and that he came to the hospital and had 2 sets of heart enzymes were negative and a normal EKG. ED Disposition - Plan for ED Patient: Disposition: Home or Assisted Living Diagnosis: Chest pain Instructions: ED Chest Pain, Uncertain Cause Referrals: Galindo Yuan MD [Primary Care Provider] - Keep Melly appointment Additional Instructions: I would recommend you call your metal fabricating inspector today and inform them that you are in the emergency room tonight with burning chest pain and had a normal EKG and 2 sets of cardiac enzymes that were also normal.
--- NOTE | 2020-11-09 01:56 | EKG12_ITS ---
Test Reason : CP Blood Pressure : / mmHG Vent. Rate : 070 BPM Atrial Rate : 070 BPM P-R Int : 262 ms QRS Dur : 080 ms QT Int : 422 ms P-R-T Axes : 046 041 030 degrees QTc Int : 455 ms Sinus rhythm with sinus arrhythmia with 1st degree A-V block Otherwise normal ECG Confirmed by MARISOL LORD, EVARISTO ([id number]), primer expeditor and drier RAJENDRA ROGERS ([id number]) on 11/10/2020 10:55:56 AM Referred By: Confirmed By:EVARISTO DAMON MD
[2020-11-09 02:06] LABS: Absolute Lymphocyte Count 1.78 X10^3/uL (0.83-4.51); Absolute Neutrophil Count 3.7 X10^3/uL (2.0-7.7); Basophil# 0.06 X10^3/uL; Eosinophil# 0.13 X10^3/uL; Eosinophils% 2.1 % (0-5); Hematocrit 40.9 % (40-54); Hemoglobin 13.3 g/dL (13.0-16.5); Lymphocyte # 1.78 X10^3/ul (4.0); Lymphocyte % 28.8 % (19-41); Mean Corp Hgb Conc 32.5 g/dL (32-36); Mean Corpuscular Hgb 28.7 pg (27.0-32.0); Mean Corpuscular Volume 88.3 fL (80-94); Mean Platelet Vol. 9.1 fl (6.2-12.0); Monocyte# 0.54 X10^3/uL; Monocyte% 8.7 % (0-10); NRBC Flagged by Analyzer 0 % (0-5); Neutrophil # 3.65 X10^3/uL (2.7-7.7); Neutrophil % 59.1 % (47-70); Platelet Count 209 K/mm3 (150-450); RBC Distribution Width CV 13.8 % (11.6-14.6); RBC Distribution Width SD 44.2 fl (35.1-43.9); Red Blood Count 4.63 M/mm3 (4.6-6.2); White Blood Count 6.2 K/mm3 (4.4-11.0)
[2020-11-09] MEDS: Mag Hydrox/Al Hydrox/Simeth 30 ML UDC PO (02:07)
[2020-11-09 02:21] LABS: Anion Gap 4 (5-15); BUN 18 mg/dL (7-18); BUN/Creat Ratio 13.7 RATIO (10-20); Calcium,Total 8.7 mg/dL (8.5-10.1); Chloride 109 mmol/L (98-107); Creatinine, Serum 1.31 mg/dL (0.70-1.30); EST Glomerular Filtration Rate 56 mL/min (>60); Est Glom Filt Rate - Afr Amer 68 mL/min (>60); Estimated Creatinine Clearance 44.97 ml/min; Glucose 126 mg/dL (74-106); Sodium Level 142 mmol/L (136-145)
[2020-11-09 02:36] VITALS: BP 112/59; PULSE 57; RESP 14; O2SAT 100
--- NOTE | 2020-11-09 03:27 | ED.RN ---
pt family updated about pt care per pt request. pt is currently resting in a position of comfort with no further needs at this time.
[2020-11-09 04:00] VITALS: BP 164/104; PULSE 97; RESP 28; O2SAT 100
[2020-11-09 05:07] VITALS: BP 124/77; PULSE 65; RESP 16; O2SAT 98
== END 2020-11-09 05:09 | disposition home or self-care (01) ==
PROVIDERS: Emergency Provider Emergency Medicine; PCP Internal Medicine
DX: R07.9 Chest pain, unspecified (principal); I25.119 Atherosclerotic heart disease of native coronary artery with unspecified angina pectoris; I12.9 Hypertensive 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 4 chronic kidney disease, or unspecified chronic kidney disease; N18.30 Chronic kidney disease, stage 3 unspecified; I48.0 Paroxysmal atrial fibrillation; I44.0 Atrioventricular block, first degree; K21.9 Gastro-esophageal reflux disease without esophagitis
CPT/HCPCS: 71045; 80048; 84484; 85025; 93005; 99285; J7030; A4216

== ENCOUNTER 2021-11-21 07:48 | Outpatient (CLI) | payer MEDICARE, SELFPAY ==
--- NOTE | 2021-11-21 07:57 | CT_ITS ---
STUDY: CT LEFT SHOULDER REASON FOR EXAM: Left shoulder pain, surgical planning. TECHNIQUE: The patient was scanned in a multi detector CT scanner. High resolution transaxial imaging was performed without the administration of intravenous contrast material. Sagittal and coronal images were reconstructed. Individualized dose optimization techniques were used for this CT. COMPARISON: Radiographs of the left humerus 06/20/2012. FINDINGS: There is glenohumeral arthrosis with small marginal osteophytes of the humeral head and joint space narrowing of the anterior aspect of the glenohumeral articulation (coronal reconstructions 35, 36) without demonstrated glenoid erosion. There is an intra-articular body in the anterior aspect of glenohumeral joint (axial images 30-32). There is an anchor in the humeral head. Status post subacromial decompression and excision of the distal clavicle. Normal visualized muscles and soft tissue structures. CT/Extremity Upper without Contra IMPRESSION: Glenohumeral arthrosis. Electronically Signed: Javan Mock MD at 14:58 EST Tel , Service support ,
== END 2021-11-21 23:59 | disposition short-term general hospital (02) ==
LOC: CT 07:50
PROVIDERS: PCP Internal Medicine; Referring Provider Specialist; Visit Provider Specialist
DX: M19.012 Primary osteoarthritis, left shoulder (principal)
CPT/HCPCS: 73200

== ENCOUNTER 2022-02-01 06:37 | Observation (INO) | payer MEDICARE, SELFPAY ==
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
[2022-01-18 08:25] LABS: Absolute Lymphocyte Count 1.44 X10^3/uL (0.83-4.51); Absolute Neutrophil Count 3.8 X10^3/uL (2.0-7.7); Basophil# 0.05 X10^3/uL; Basophil% 0.8 % (0-1); Eosinophil# 0.09 X10^3/uL; Eosinophils% 1.5 % (0-5); Hemoglobin 14.8 g/dL (13.0-16.5); Lymphocyte # 1.44 X10^3/ul (0.83-4.51); Lymphocyte % 24.4 % (19-41); Mean Corp Hgb Conc 32.9 g/dL (32-36); Mean Corpuscular Hgb 28.6 pg (27.0-32.0); Mean Corpuscular Volume 86.9 fL (80-94); Mean Platelet Vol. 9.1 fl (6.2-12.0); Monocyte# 0.48 X10^3/uL; Monocyte% 8.1 % (0-10); NRBC Flagged by Analyzer 0 % (0-5); Neutrophil # 3.84 X10^3/uL (2.7-7.7); Platelet Count 232 K/mm3 (150-450); RBC Distribution Width CV 14.2 % (11.6-14.6); RBC Distribution Width SD 45.2 fl (35.1-43.9); Red Blood Count 5.18 M/mm3 (4.6-6.2); White Blood Count 5.9 K/mm3 (4.4-11.0)
[2022-01-18 08:55] LABS: Magnesium 2.1 mg/dL (1.6-2.6)
[2022-01-18 09:01] LABS: Hemoglobin A1c 5.8 % (3.8-5.6)
[2022-01-18 09:02] LABS: Albumin, Serum 3.7 g/dL (3.2-5.0); Anion Gap 5 (5-15); BUN 20 mg/dL (7-18); Calcium,Total 9.4 mg/dL (8.5-10.1); Chloride 106 mmol/L (98-107); Creatinine, Serum 1.25 mg/dL (0.70-1.30); EST Glomerular Filtration Rate 59 mL/min (>60); Est Glom Filt Rate - Afr Amer 71 mL/min (>60); Glucose 102 mg/dL (74-106); Sodium Level 140 mmol/L (136-145)
[2022-02-01] VITALS (13 sets, daily range): BP systolic 105–144; BP diastolic 62–90; PULSE 59–75; RESP 14–18; TEMP 35.8–37.7; O2SAT 95–100; BMI 32.8
[2022-02-01] MEDS: Lactated Ringers 1,000 ML 999 ML IV ×2 (06:23→09:58)
[2022-02-01] MEDS: Acetaminophen 500 MG Tablet 1000 MG PO ×4 (06:24→23:47)
[2022-02-01] MEDS: Gabapentin 600 MG Tablet PO (06:24)
[2022-02-01 06:25] LABS: Bedside Glucose 156 mg/dL (74-106)
--- NOTE | 2022-02-01 06:36 | PCM.OPRPT ---
Report of Operation Date of Procedure: 02/01/22 Pre-Operative Diagnosis: Left shoulder osteoarthritis with rotator cuff insufficiency Post-Operative Diagnosis: Left shoulder osteoarthritis with rotator cuff insufficiency Surgery/Procedure Performed:: Left reverse total shoulder replacement Description of Surgical Findings:: Stable shoulder Surgeon: Zane Weaver industrial workers: Rowan Maldonado Type of Anesthesia: General Anesthesiologist: Ciro Urrutia Special Medications: 2 g Ancef, 2 g TXA lavage and wound prior to closure, 10 mg Decadron, 1.5 g vancomycin at incision Specimen's removed: Bony cuts Estimated Blood Loss (mL): 150 Fluids Replaced: 1000 mL crystalloid Description of Procedure: Components used 1. Paul reunion glenoid baseplate 2. Paul reunion 36 mm, 2 mm eccentric mm Glenosphere 3. Paul reunion 36 mm, 4 mm humeral liner 4. Paul reunion reverse TSA humeral adapter tray 2mm 5. Paul reunion humeral stem primary press-fit 14mm size Brief history/Operative indications: 81 yo m with history of left shoulder pain and cuff tear arthropathy. Patient failed conservative measures as mentioned in the H&P. After discussion of risk and benefits of reverse total shoulder replacement including but not limited to blood loss, DVTs, PEs, nerve vessel damage, infection, general risk of anesthesia including loss of life, instability and stiffness patient demonstrating understanding wish to proceed was able to sign informed consent. Medical clearance was obtained. Procedure: On the date of the procedure, patient's left upper extremity was marked in the preoperative area. Patient was taken back to the operating room where they were placed on the table in the supine position. Anesthesia assumed control of the C-spine and airway, then administered anesthetic. All bony prominences were identified well-padded, the head was secured and the patient was placed in the beachchair position at about 35? inclination. Anesthesia remained in control of the C-spine airway throughout the remainder of the procedure. Patient was then appropriately fastened to the table and the left upper extremity was prepped in a sterile fashion. The surgeons then scrubbed. Upon reentering the room, the left upper extremity was draped in a sterile fashion and the incision was marked out. Timeout was called, everyone agreed upon the side, the site, the procedure to be performed, patient identity and antibiotics given. Incision was taken down through skin and subcutaneous tissue, fat down to fascia. The stripe of the deltopectoral interval and cephalic vein were identified and blunt dissection was used to retract the deltoid. The cephalic vein was retracted laterally. Clavipectoral fascia was then incised and a cobra retractor was placed in the wound. The proximal one third of the pectoralis major insertion was released. Pectoralis tendon insertion was used to tenodesed the biceps tendon which was identified in the bicipital groove. Tenodesis was done with #1 Vicryl. Proximally we followed the biceps tendon after transecting it into the rotator interval. The rotator interval was split and the arm was externally rotated. The split was 1 cm medial to the bicipital groove. Subscapularis tendon was released. We released down the anterior portion of the humeral head and a renae elevator was used to release the inferior portion of the humeral head. The arm was externally rotated and the shoulder was dislocated. The humeral head was then cut at its natural retroversion. Once his humeral head cut was made humerus was retracted out of the way and the glenoid was exposed. After exposing the glenoid, the labrum and the remaining proximal biceps were debrided. At this time we are able to view the entire outer edge of the glenoid. A central pin was placed we sequentially reamed over this central pin to 36mm. Once this was completed the central screw was measured and found to be. The glenoid baseplate was screwed into place. Wound was closely irrigated out with normal saline we then drilled sequentially for 2 screws. Screws were placed superiorly and inferiorly and tightened down the screws. Once the screws were appropriately tightened into place the glenoid baseplate was compressed against the exposed subchondral bone. A 36mm glenosphere was impacted into place engaging the Ortiz taper. Attention was then turned towards the humerus. The humerus was again externally rotated exposing the proximal portion of the humerus. Central canal finder was then used to open up the canal. We reamed to a 14mm reamer. We then broached to a 14mm stem. We trialed the 4mm liner, with the 2mm humeral baseplate. We obtained an adequate reduction at this time with a nice stable shoulder. Good internal rotation to the gluteus, forward elevation to 140?, external rotation to 20?. Final components were then assembled on the back table, trials were removed and the wound was copiously irrigated with normal saline after dislocating the shoulder. Once the final components were assembled they were impacted into place. Shoulder was then reduced and found to be stable with good range of motion. Subscapularis tendon not repairable. The wound was with chlorhexidine solution then copiously irrigated out with a 1 L normal saline lavage. The deltopectoral fascia was then closed using #1 Vicryl skin was closed using 2-0 Vicryl interrupted sutures and final skin closure was done with 3-0 Monocryl. Steri-Strips are placed for final skin closure. Sterile dressing was placed patient was then placed in a sling and awakened by anesthesia. Patient was then transferred to the PACU for recovery. Postoperative plan: Patient will be admitted to the hospital overnight. They will get physical therapy starting in 2 weeks with normal postoperative regimen. Patient will resume his Eliquis dose postoperatively on postop day 1 for DVT prophylaxis. The first postoperative appointment will be in 2 weeks for wound check and initiation of phase 1 physical therapy. During the course of the procedure the physician housing assistant property manager played a vital role. His intimate knowledge of my steps in the procedure aided in safe and expedient completion of the procedure. The PA played a vital rolls in positioning particularly in obtaining the appropriate beach chair position and securing the patient's body and head to the table. The PA was also vital in the retraction of soft tissues during the exposure and especially the glenoid work as this is a vital part of the procedure to prevent neurovascular damage. the PA was also vital and protecting soft tissues during times of bony cuts and reaming. He also played a vital role in closure with my direct supervision. The PA was also important during reduction and dislocation of the joint and trials intraoperatively. Complications No intraoperative complications Admit VTE Documentation VTE Present on Admission: No VTE Mechan Device Prophylaxis: SCD's VTE Pharm Prophylaxis ordered?: Yes
--- NOTE | 2022-02-01 06:40 | RAD_ITS ---
History: Postop Right shoulder 2 views: Findings: Reverse shoulder prosthesis in place in satisfactory position. No acute bone or joint abnormality. Soft tissues are normal. IMPRESSION: Satisfactory postop changes. at 1059 Reported and signed by: Giovanny Dan MD Electronically Signed: Giovanny Dan MD at 10:58 EDT , RAD/Shoulder min 2 Views
[2022-02-01] MEDS: Lactated Ringers 1,000 ML 75 ML IV ×2 (07:30→10:57)
[2022-02-01] MEDS: Lactated Ringers 1,000 ML 125 ML IV (07:30)
[2022-02-01] MEDS: dexAMETHasone 10 MG/ML Vial IV (07:40)
[2022-02-01] MEDS: Cefazolin 2 GM in 0.9% Normal Saline 100 ML IV (07:40)
[2022-02-01 09:35] LABS: Bedside Glucose 113 mg/dL (74-106)
--- NOTE | 2022-02-01 10:27 | EKG12_ITS ---
Test Reason : POST OP Blood Pressure : / mmHG Vent. Rate : 063 BPM Atrial Rate : 063 BPM P-R Int : 242 ms QRS Dur : 090 ms QT Int : 476 ms P-R-T Axes : 075 026 010 degrees QTc Int : 487 ms Sinus rhythm with 1st degree A-V block Prolonged QT Abnormal ECG When compared with ECG of 09-NOV-2020 01:40, No significant change was found Confirmed by JOCELYN LORD, GILMER ([id number]), magazine editor RAJENDRA ROGERS ([id number]) on 02/02/2022 1:51:50 PM Referred By: Zane Weaver Confirmed By:LANRE BANKS MD
--- NOTE | 2022-02-01 11:19 | PN.HOSP_ITS ---
Subjective Subjective Follow-up for postop medical management: 81-year-old male with past medical history of CAD, hypertension, hyperlipidemia, ETHAN on CPAP, atrial fibrillation status post ablation, CKD who comes in with ongoing left shoulder pain status post fall in July 2021. Patient was admitted for elective left reverse total shoulder replacement. Patient was seen up postoperatively. He denied any chest pain or dizziness or palpitation. He rated the pain in his shoulder as 4 out of 10. He is able to wiggle his fingers . He sitting up in a chair. His vitals are stable with blood pressure 126/72, heart rate 68, SPO2 98% temperature 97.7, he saturating well on room air Objective Data Objective Data Vital Signs: Vital Signs Temp Pulse Resp BP Pulse Ox 97.8 F 62 14 133/68 H 97 02/01/22 10:34 02/01/22 10:56 02/01/22 10:34 02/01/22 10:34 02/01/22 10:34 Oxygen Flow Rate (L/min) 4 Oxygen Delivery Method Room Air Weight: 98 kg Body Mass Index (BMI) 32.8 Intake & Output: Intake and Output for Last 24 Hours 01/30/22 01/31/22 02/01/22 23:59 23:59 23:59 Intake Total 1930 Balance 1930 Lab / Micro Data Result Diagrams: 01/18/22 07:59 01/18/22 07:59 Labs: Laboratory Results - last 24 hr 02/01/22 06:07: POC Glucose 156 H 02/01/22 09:32: POC Glucose 113 H Micro: Microbiology 01/18/22 07:59 Swab (Method) Nasal Screen MRSA/MSSA - Final Radiography Diagnostic Testing: Radiology Impression Shoulder X-Ray 02/01/22 06:40 Physical Exam Narrative Physical exam: General: Alert, Oriented x3, Cooperative, No apparent distress, Well developed HEENT: Atraumatic Oral: Moist Mucosa Neck: Supple Lungs: Clear to auscultation Cardiovascular: HS I+II, regular, no murmurs Abdomen: Bowel Sounds Present, Soft, Non Tender Extremities: No edema, dressing over his anterior left shoulder is dry and intact, left shoulder in a sling, able to wiggle his fingers Skin: No rashes, No breakdown Neurological: Grossly intact Psych/Mental Status: Appropriate Assessment & Plan Assessment/Plan (1) ETHAN (obstructive sleep apnea): (2) Osteoarthritis: QUALIFIERS: Laterality: left Osteoarthritis location: shoulder Osteoarthritis type: post-traumatic Qualified Code(s): 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 Postop day #0 status post left reverse total shoulder arthroplasty, pain is fairly controlled Continue on current pain regimen, follow-up on orthopedic recommendations 2. Atrial fibrillation status post ablation, continue Tikosyn, metoprolol, apixaban(when okay by surgery) 3. Hypertension, controlled, continue metoprolol, losartan, amlodipine 4. CKD stage IIIa, stable, repeat blood work Continue losartan for now 5. ETHAN on CPAP 6. DVT prophylaxis?SCDs; will start apixaban tomorrow Charges/Coding Visit Charges Inpatient E&M: 64272 Subs Hosp L2
[2022-02-01] MEDS: Cyanocobalamin 500 MCG Tablet 1000 MCG PO (12:29)
[2022-02-01] MEDS: Senna/Docusate Sodium 1 Tablet 2 TABLET PO ×2 (12:29→20:20)
[2022-02-01] MEDS: Ensure Surgery 237 ML LIQUID PO ×2 (12:30→16:47)
[2022-02-01] MEDS: Cholecalciferol (VIT D3) 25 MCG TABLET (1,000 UNITS) PO (12:30)
[2022-02-01] MEDS: Magnesium Chloride 64 MG Delay Rel.Tablet 128 MG PO (12:30)
[2022-02-01] MEDS: Cefazolin 1 GM/50 ML BAG IV ×2 (16:46→23:08)
[2022-02-01 17:43] LABS: Absolute Lymphocyte Count 0.46 X10^3/uL (0.83-4.51); Absolute Neutrophil Count 11.6 X10^3/uL (2.0-7.7); Basophil# 0.02 X10^3/uL; Basophil% 0.2 % (0-1); Hematocrit 42.2 % (40-54); Hemoglobin 14.1 g/dL (13.0-16.5); Lymphocyte # 0.46 X10^3/ul (0.83-4.51); Lymphocyte % 3.6 % (19-41); Mean Corp Hgb Conc 33.4 g/dL (32-36); Mean Corpuscular Hgb 28.8 pg (27.0-32.0); Mean Corpuscular Volume 86.3 fL (80-94); Mean Platelet Vol. 9.2 fl (6.2-12.0); NRBC Flagged by Analyzer 0 % (0-5); Neutrophil # 11.61 X10^3/uL (2.7-7.7); Neutrophil % 91.9 % (47-70); POSITIVE DIFFERENTIAL YES; Platelet Count 231 K/mm3 (150-450); RBC Distribution Width SD 44.5 fl (35.1-43.9); Red Blood Count 4.89 M/mm3 (4.6-6.2); White Blood Count 12.6 K/mm3 (4.4-11.0)
[2022-02-01 18:06] LABS: ALB/GLOB Ratio 1.1 RATIO (0.9-2.4); AST(SGOT) 21 U/L (15-37); Alanine Aminotransfer ALT/SGPT 25 U/L (16-61); Albumin, Serum 3.6 g/dL (3.2-5.0); Alkaline Phosphatase 119 U/L (45-117); Anion Gap 6 (5-15); BUN 18 mg/dL (7-18); BUN/Creat Ratio 12.9 RATIO (10-20); Chloride 107 mmol/L (98-107); EST Glomerular Filtration Rate 52 mL/min (>60); Est Glom Filt Rate - Afr Amer 63 mL/min (>60); Estimated Creatinine Clearance 40.04 ml/min; Globulin 3.4 g/dL (2.2-4.2); Glucose 212 mg/dL (74-106); Potassium 4.9 mmol/L (3.5-5.1); Sodium Level 138 mmol/L (136-145)
[2022-02-01 18:12] LABS: Differential Indicated SCAN CRITERIA MET
[2022-02-01 19:29] LABS: Platelet Estimate ADEQUATE (ADEQ)
[2022-02-01 19:30] LABS: Red Cell Morphology NORM C+C NORMAL (NORM C&C)
[2022-02-01] MEDS: MELATONIN 3 MG TABLET PO (20:19)
[2022-02-01] MEDS: Atorvastatin Calcium 40 MG Tablet PO (20:19)
[2022-02-01] MEDS: Ketorolac 15 MG/ML Vial IV (20:20)
[2022-02-01] MEDS: traMADol 50 MG Tablet PO (20:21)
[2022-02-01] MEDS: Dofetilide 250 MCG Capsule PO (20:23)
[2022-02-01] MEDS: HYDROmorphone Inj 0.2 MG/ML SYRINGE IV (23:46)
[2022-02-01] MEDS: Ondansetron 4 MG/2 ML Vial IV (23:46)
[2022-02-02 00:02] VITALS: BP 119/70; PULSE 64; RESP 16; TEMP 36.6; O2SAT 96
[2022-02-02] MEDS: traMADol 50 MG Tablet PO ×2 (04:20→10:44)
[2022-02-02] MEDS: Ketorolac 15 MG/ML Vial IV (04:20)
[2022-02-02 04:32] VITALS: BP 116/65; PULSE 61; RESP 16; TEMP 36.8; O2SAT 96
[2022-02-02 06:10] LABS: Hematocrit 39.6 % (40-54); Hemoglobin 13.1 g/dL (13.0-16.5); Mean Corp Hgb Conc 33.1 g/dL (32-36); Mean Corpuscular Hgb 29.4 pg (27.0-32.0); Mean Platelet Vol. 9.3 fl (6.2-12.0); Platelet Count 223 K/mm3 (150-450); RBC Distribution Width CV 14.1 % (11.6-14.6); RBC Distribution Width SD 45.1 fl (35.1-43.9); Red Blood Count 4.45 M/mm3 (4.6-6.2); White Blood Count 10.5 K/mm3 (4.4-11.0)
[2022-02-02] MEDS: APIXABAN 5 MG TABLET PO (06:18)
[2022-02-02] MEDS: Acetaminophen 500 MG Tablet 1000 MG PO (06:19)
[2022-02-02 06:49] LABS: AST(SGOT) 18 U/L (15-37); Alanine Aminotransfer ALT/SGPT 22 U/L (16-61); Albumin, Serum 3.3 g/dL (3.2-5.0); Alkaline Phosphatase 105 U/L (45-117); Anion Gap 4 (5-15); BUN 28 mg/dL (7-18); BUN/Creat Ratio 21.2 RATIO (10-20); Calcium,Total 8.6 mg/dL (8.5-10.1); Chloride 105 mmol/L (98-107); Creatinine, Serum 1.32 mg/dL (0.70-1.30); EST Glomerular Filtration Rate 55 mL/min (>60); Est Glom Filt Rate - Afr Amer 67 mL/min (>60); Estimated Creatinine Clearance 42.46 ml/min; Globulin 3.2 g/dL (2.2-4.2); Glucose 131 mg/dL (74-106); Potassium 4.7 mmol/L (3.5-5.1); Protein, Total 6.5 g/dL (6.4-8.2); Sodium Level 135 mmol/L (136-145)
--- NOTE | 2022-02-02 07:41 | PN.HOSP_ITS ---
Subjective Subjective Follow-up for postop medical management: Patient was seen and examined. His pain is controlled. No acute events o vernight. Vital signs stable. Objective Data Objective Data Vital Signs: Vital Signs Temp Pulse Resp BP Pulse Ox 98.2 F 61 16 116/65 96 02/02/22 04:32 02/02/22 04:32 02/02/22 04:32 02/02/22 04:32 02/02/22 04:32 Oxygen Flow Rate (L/min) 4 Oxygen Delivery Method Room Air Weight: 98 kg Body Mass Index (BMI) 32.8 Intake & Output: Intake and Output for Last 24 Hours 01/31/22 02/01/22 02/02/22 23:59 23:59 23:59 Intake Total 5531 / 5981 1767.5 / 1767.5 Output Total 1200 / 1200 Balance 5531 / 5381 567.5 / 567.5 Lab / Micro Data Result Diagrams: 02/02/22 05:45 02/02/22 05:45 Labs: Laboratory Results - last 24 hr 02/01/22 09:32: POC Glucose 113 H 02/01/22 17:25: WBC 12.6 H, RBC 4.89, Hgb 14.1, Hct 42.2, MCV 86.3, MCH 28.8, MCHC 33.4, RDW Std Deviation 44.5 H, RDW Coeff of Nicholas 14.0, Plt Count 231, MPV 9.2, Immature Gran % (Auto) 0.300, Neut % (Auto) 91.9 H, Lymph % (Auto) 3.6 L, [place] % (Auto) 4.0, Eos % (Auto) 0.0, Baso % (Auto) 0.2, Absolute Neuts (auto) 11.6 H, Absolute Lymphs (auto) 0.46 L, Nucleated RBC % 0, Differential Comment , Platelet Estimate ADEQUATE, RBC Morphology NORM C+C 02/01/22 17:25: Sodium 138, Potassium 4.9, Chloride 107, Carbon Dioxide 25.0, Anion Gap 6, BUN 18, Creatinine 1.40 H, Estim Creat Clear Calc 40.04, Est GFR (MDRD) Af Amer 63, Est GFR (MDRD) Non-Af 52 L, BUN/Creatinine Ratio 12.9, Glucose 212 H, Calcium 9.0, Total Bilirubin 0.80, AST 21, ALT 25, Alkaline Phosphatase 119 H, Total Protein 7.0, Albumin 3.6, Globulin 3.4, A lbumin/Globulin Ratio 1.1 02/02/22 05:45: WBC 10.5, RBC 4.45 L, Hgb 13.1, Hct 39.6 L, MCV 89.0, MCH 29.4, MCHC 33.1, RDW Std Deviation 45.1 H, RDW Coeff of Nicholas 14.1, Plt Count 223, MPV 9.3 02/02/22 05:45: Sodium 135 L, Potassium 4.7, Chloride 105, Carbon Dioxide 26.0, Anion Gap 4 L, BUN 28 H, Creatinine 1.32 H, Estim Creat Clear Calc 42.46, Est GFR (MDRD) Af Amer 67, Est GFR (MDRD) Non-Af 55 L, BUN/Creatinine Ratio 21.2 H, Glucose 131 H, Calcium 8.6, Total Bilirubin 0.70, AST 18, ALT 22, Alkaline Phosphatase 105, Total Protein 6.5, Albumin 3.3, Globulin 3.2, Albumin/Globulin Ratio 1.0 Micro: Microbiology 01/18/22 07:59 Swab (Method) Nasal Screen MRSA/MSSA - Final Radiography Diagnostic Testing: Radiology Impression Shoulder X-Ray 02/01/22 06:40 Physical Exam Narrative Physical exam: General: Alert, Oriented x3, Cooperative, No apparent distress, Well developed HEENT: Atraumatic Oral: Moist Mucosa Neck: Supple Lungs: Clear to auscultation Cardiovascular: HS I+II, regular, no murmurs Abdomen: Bowel Sounds Present, Soft, Non Tender Extremities: No edema, dressing over his anterior left shoulder is dry and intact, left shoulder in a sling, able to wiggle his fingers Skin: No rashes, No breakdown Neurological: Grossly intact Psych/Mental Status: Appropriate Assessment & Plan Assessment/Plan (1) ETHAN (obstructive sleep apnea): (2) Osteoarthritis: QUALIFIERS: Laterality: left Osteoarthritis location: shoulder Osteoarthritis type: post-traumatic Qualified Code(s): 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 Postop day #1 status post left reverse total shoulder arthrop lasty, pain is fairly controlled Continue on current pain regimen, follow-up on orthopedic recommendations 2. Atrial fibrillation status post ablation, continue Tikosyn, metoprolol, apixaban 3. Hypertension, controlled, continue metoprolol, losartan, amlodipine 4. CKD stage IIIa, stable, repeat blood work Continue losartan for now 5. ETHAN on CPAP 6. DVT prophylaxis?apixaban Okay for discharge from medicine point of view Charges/Coding Visit Charges Inpatient E&M: 72761 Subs Hosp L2
[2022-02-02 08:00] VITALS: BP 101/65; PULSE 62; RESP 18; TEMP 36.9; O2SAT 94
--- NOTE | 2022-02-02 09:14 | PN.ORTHO_ITS ---
Subjective Subjective The patient was sitting in bedside chair upon examination. Patient denies any chest pain, shortness of breath, dizziness, lightheadedness, nausea or vomiting, or calf pain. Pain is controlled on medications. No adverse overnight events. Overall patient is doing well this morning. He has no significant complaints. Objective Data Objective Data Vital Signs: Vital Signs Temp Pulse Resp BP Pulse Ox 98.2 F 61 16 116/65 96 02/02/22 04:32 02/02/22 04:32 02/02/22 04:32 02/02/22 04:32 02/02/22 04:32 Oxygen Flow Rate (L/min) 4 Oxygen Delivery Method Room Air Weight: 98 kg Body Mass Index (BMI) 32.8 Intake & Output: Intake and Output for Last 24 Hours 01/31/22 02/01/22 02/02/22 23:59 23:59 23:59 Intake Total 5531 / 5981 1767.5 / 1767.5 Output Total 1200 / 1200 Balance 5531 / 5381 567.5 / 567.5 Lab / Micro Data Result Diagrams: 02/02/22 05:45 02/02/22 05:45 Labs: Laboratory Results - last 24 hr 02/01/22 09:32: POC Glucose 113 H 02/01/22 17:25: WBC 12.6 H, RBC 4.89, Hgb 14.1, Hct 42.2, MCV 86.3, MCH 28.8, MCHC 33.4, RDW Std Deviation 44.5 H, RDW Coeff of Nicholas 14.0, Plt Count 231, MPV 9.2, Immature Gran % (Auto) 0.300, Neut % (Auto) 91.9 H, Lymph % (Auto) 3.6 L, [place] % (Auto) 4.0, Eos % (Auto) 0.0, Baso % (Auto) 0.2, Absolute Neuts (auto) 11.6 H, Absolute Lymphs (auto) 0.46 L, Nucleated RBC % 0, Differential Comment , Platelet Estimate ADEQUATE, RBC Morphology NORM C+C 02/01/22 17:25: Sodium 138, Potassium 4.9, Chloride 107, Carbon Dioxide 25.0, Anion Gap 6, BUN 18, Creatinine 1.40 H, Estim Creat Clear Calc 40.04, Est GFR (MDRD) Af Amer 63, Est GFR (MDRD) Non-Af 52 L, BUN/Creatinine Ratio 12.9, Glucose 212 H, Calcium 9.0, Total Bilirubin 0.80, AST 21, ALT 25, Alkaline Ph osphatase 119 H, Total Protein 7.0, Albumin 3.6, Globulin 3.4, Albumin/Globulin Ratio 1.1 02/02/22 05:45: WBC 10.5, RBC 4.45 L, Hgb 13.1, Hct 39.6 L, MCV 89.0, MCH 29.4, MCHC 33.1, RDW Std Deviation 45.1 H, RDW Coeff of Nicholas 14.1, Plt Count 223, MPV 9.3 02/02/22 05:45: Sodium 135 L, Potassium 4.7, Chloride 105, Carbon Dioxide 26.0, Anion Gap 4 L, BUN 28 H, Creatinine 1.32 H, Estim Creat Clear Calc 42.46, Est GFR (MDRD) Af Amer 67, Est GFR (MDRD) Non-Af 55 L, BUN/Creatinine Ratio 21.2 H, Glucose 131 H, Calcium 8.6, Total Bilirubin 0.70, AST 18, ALT 22, Alkaline Phosphatase 105, Total Protein 6.5, Albumin 3.3, Globulin 3.2, Albumin/Globulin Ratio 1.0 Micro: Microbiology 01/18/22 07:59 Swab (Method) Nasal Screen MRSA/MSSA - Final Radiography Diagnostic Testing: Radiology Impression Shoulder X-Ray 02/01/22 06:40 Physical Exam Narrative Vital signs stable, afebrile Dressing is clean, dry, intact Ultra-sling fitting appropriately Sensation intact to axillary, radial, median, and ulnar distribution Motor intact to AIN, PIN, and ulnar nerve Const alert, oriented x3 and no apparent distress Assessment & Plan Assessment/Plan (1) Status post reverse total arthroplasty of left shoulder: PLAN: 1. S/P left reverse total shoulder arthroplasty POD #1 2. Continue Pain Medications: Tylenol and tramadol 3. DVT Prophylaxis: Patient will resume Eliquis today. Patient takes Eliquis for his atrial fibrillation and followed by cardiology. 4. PT/OT: Continue with UltraSling at all times except to come out for range of motion exercises of the elbow and pendulum exercise 3 times daily. No range of motion of the postoperative shoulder until outpatient physical therapy begins. Outpatient physical therapy will begin 2 weeks postoperatively after follow-up with [facility] with x-rays and incision check. 5. H & H: 13.1/39.6, asymptomatic. Postoperative anemia secondary to acute b lood loss from surgery without any intra operative complications. 6. Continue postoperative medical management per medicine: Patient does have stable chronic kidney disease with his creatinine today stable from previous lab work. 7. Encouraged Incentive Spirometry 8. Disposition: Plan will be for discharge home today as long as patient is medically stable, pain well controlled. Patient is not able to drive and will need home health physical therapy to start. We will not start home health ph ysical therapy until February 17, 2022. Patient will require 2-week postoperative follow-up first with x-rays. Prescriptions will be E scribed to John in [facility]. He will follow-up per postop instructions. I have reviewed the [place] Automated Rx Reporting System (OARRS) report for this patient for refill pattern and other prescriber involvement as part of the appropriate surveillance for the provision of acute and chronic controlled medications. The report was requested and reviewed on the date of this entry and was considered in the prescribing process.
--- NOTE | 2022-02-02 09:19 | DCINST_ITS ---
Discharge Instructions Diet Discharge Diet: No restrictions Activity Discharge Activity: May Not Drive (No driving 6 weeks postoperatively while wearing UltraSling and while taking narcotic pain medications.) May shower in (days): 1 (Dressing must be intact to skin. Turn dressing away from water.) Ice area for (Minutes): 20 (Every 1-2 hours while awake[address] place barrier between skin and ice pack.) Weight Bearing Status: No weight bearing (Postoperative upper extremity) Additional Activity Instructions:: Continue with UltraSling at all times. Please come out of UltraSling 3 times daily working on elbow range of motion and pendulum exercises. No range of motion of postoperative shoulder. Will begin outpatient physical therapy after 2-week scheduled follow-up. Dressing / Incision Call your doctor if your incision/area has: Continuous Slow Oozing, Sudden Increased Bleeding, Increased Pain/ Swelling, Increased Redness and Foul Smelling Discharge Call your doctor if you observe: Fever of 101 or Higher, Shortness of breath, Chest pain and Uncontrolled pain Remove Dressing in: 4 days (Okay to remove dressing on February 06, 2022) Additional Dressing/Incision Instructions:: Follow [facility] Post-op Instructions. Once postoperative dressing has been removed only use gentle soap and water over the incision. Do not use any ointments, Neosporin, salves, alcohol pads over the incision for 6 weeks postoperatively. Do not submerge underwater for 6 weeks postoperatively. Do NOT use alcohol with narcotic pain medication. Do NOT make important decisions while taking narcotic medication. If you have problems with taking your medication (rash, itching, nausea, etc.) call the office at once. Follow Up Care Test Results: Test results from this visit will be discussed in further detail at your follow-up appointment, if applicable. Discharge Plan Admission Admit Date/Time: 02/01/22 06:37 Attending Provider: Zane Weaver Primary Care Provider: Galindo Yuan Consulting Providers: Yumiko Huang Discharge Orders/Prescriptions Prescriptions: New tramadol 50 mg Tablet 50 - 100 mg PO Q6H PRN PRN (Reason: Pain Score 4-10) 7 Days Qty: 48 RF: 0 acetaminophen 500 mg Tablet 1,000 mg PO Q8 14 Days Qty: 84 RF: 0 Continued atorvastatin 40 MG tablet 40 mg PO QHS RF: 0 pantoprazole 40 MG tablet 40 mg PO DAILY RF: 0 cholecalciferol (vitamin D3) [Vitamin D3] 1,000 UNIT tablet 1,000 unit PO DAILY RF: 0 Eliquis 5 MG tablet 5 mg PO BID RF: 0 nitroglycerin 0.4 MG tablet 0.4 mg sublingual Q5M PRN (Reason: Chest Pain) Qty: 1 RF: 0 cyanocobalamin (vitamin B-12) [B-12 DOTS] 500 MCG tablet 1,000 mcg PO DAILY@0800 RF: 0 sennosides-docusate sodium [Stool Softener-Stimulant Laxat] 1 TABLET tablet 2 tab PO DAILY RF: 0 metoprolol succinate 25 MG tablet 25 mg PO DAILY RF: 0 losartan 50 MG tablet 50 mg PO DAILY RF: 0 dofetilide 250 MCG capsule 250 mcg PO Q12 RF: 0 melatonin 3 MG tablet 3 mg PO QHS RF: 0 amlodipine 5 MG tablet 5 mg PO DAILY RF: 0 magnesium oxide 400 MG tablet 400 mg PO DAILYCM RF: 0 Referrals / Follow Up: Galindo Yuan MD [Primary Care Provider] - Patricio Gage PA-C [PHYSICIAN SED [employer]] - 02/16/22 2:30 pm Disposition Disposition (needs filled in before D/C Order can be placed): Home Health Service
[2022-02-02] MEDS: Magnesium Chloride 64 MG Delay Rel.Tablet 128 MG PO (09:21)
[2022-02-02] MEDS: Pantoprazole Sodium 40 MG Tablet PO (09:21)
[2022-02-02] MEDS: Famotidine 20 MG Tablet PO (09:21)
[2022-02-02] MEDS: Cholecalciferol (VIT D3) 25 MCG TABLET (1,000 UNITS) PO (09:22)
[2022-02-02] MEDS: Cyanocobalamin 500 MCG Tablet 1000 MCG PO (09:22)
[2022-02-02] MEDS: amLODIPine 5 MG Tablet PO (09:22)
[2022-02-02] MEDS: Losartan Potassium 50 MG Tablet PO (09:22)
[2022-02-02] MEDS: Senna/Docusate Sodium 1 Tablet 2 TABLET PO (09:22)
[2022-02-02 09:23] VITALS: PULSE 66
[2022-02-02] MEDS: Dofetilide 250 MCG Capsule PO (09:23)
[2022-02-02] MEDS: Metoprolol(XL)Succ 25 MG Tablet PO (09:23)
[2022-02-02] MEDS: Ensure Surgery 237 ML LIQUID PO (09:25)
[2022-02-02 10:45] VITALS: BP 112/64; PULSE 66; RESP 14; O2SAT 99
--- NOTE | 2022-02-02 10:55 | CASEMGMT ---
RN CARLYN CLOTH BOOKER CM to room to meet with patient for initial transition planning/care coordination assessment. VISH ALCOCER introduced self and role at [facility]. Pt voices understanding and consents to assessment at this time. Pt sitting up in recliner in no distress at this time. in room visiting. Pt is A/O at this time and answers all questions appropriately. Care providers, pharmacy, and demographics verified/updated at this time. PCP: Dr Yuan Specialists: Dr Weaver-ortho. Channel Opener @ [facility] Chary--pt/ do not remember her name. Pt to see neurologist @ [facility] on May 02-- appt. [facility]erred [facility]acy: [facility] Prescription Benefit: Yes Living Will/HPOA: Pt does not currently have LW/HCPOA and declines info at this time. Pt and made aware that he can contact as an out-pt and make appt in the future if he decides he would like to talk with someone about this or would like to utilize [facility] social work for advanced directive completion. LNOK: , Kerri. Leigha DELGADO Living Arrangements: Lives w/ in a 2-story duplex w/one step to enter. Leigha DELGADO, and her live in the upstairs duplex. Pt independent prior to surgery. able to assist as needed. Transportation: Pt and both drive and deny transportation concerns DME: States has the following DME: shower chair, CPAP, polar care, glucometer Pt states no need for further DME at this time. HHC/SNF: No hx of SNF. Has had HHC in the past after hip surgery. Pt and interested in HHC. Education provided on [facility] requirements of being home-bound and made aware d/t pt not being homebound, [facility] would not cover for HHC. Discussed option of OP therapy. Pt and made aware [facility] in [place] does provide OP therapy, but he states does not want to go there. He prefers going to [facility] and would like VISH ALCOCER to schedule appt. Per KISHA Curry, only OP PT needed. Call placed to [facility] and 1st appt scheduled for 02/17/22 @ 9:30 AM w/PT. Appt placed in D/C plan/packet, printed off, and given to pt/. They voice appreciation. Pt wishes to return home and states has no concerns with going home at time of discharge. Pt and voice no further concerns/needs at this time. PLAN: Home w/OP therapy @ [facility]. MOODY form explained re: Observation status for treatment of left reverse total shoulder arthroplasty. Explained hospitalization will be paid per his insurance policy for Outpatient billing and condition will continue to be evaluated for Inpt necessity. Also let pt and know that [facility] sends paper in the billing packet with their phone number if questions arise. Pt and verbalize understanding and do not have further questions. Form signed, copy made and placed in chart, and original given to pt and . Calin CHRISTOPHER RN CM
== END 2022-02-02 11:22 | disposition home health service (06) ==
LOC: SDC 09:43 → MS3 09:43
PROVIDERS: Anesthesiology; Internal Medicine; Physician Assistant Surgical; Admitting Provider Specialist; PCP Internal Medicine; Referring Provider Specialist; Visit Provider Specialist
PROC: (CPT 23472; principal; 2022-02-01 07:00)
DX: M19.012 Primary osteoarthritis, left shoulder (principal); E11.22 Type 2 diabetes mellitus with diabetic chronic kidney disease; I48.0 Paroxysmal atrial fibrillation; N18.31 Chronic kidney disease, stage 3a; I25.10 Atherosclerotic heart disease of native coronary artery without angina pectoris; I12.9 Hypertensive 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 4 chronic kidney disease, or unspecified chronic kidney disease; K21.9 Gastro-esophageal reflux disease without esophagitis; G47.33 Obstructive sleep apnea (adult) (pediatric); M75.102 Unspecified rotator cuff tear or rupture of left shoulder, not specified as traumatic; E78.5 Hyperlipidemia, unspecified; Z79.01 Long term (current) use of anticoagulants; Z79.899 Other long term (current) drug therapy; G25.81 Restless legs syndrome
CPT/HCPCS: 23472; 01638; 64415; 36415; 73030; 80048; 80053; 82040; 82962; 83036; 83735; 85025; 85027; 87081; 93005; 96361; 96365; 96366; 96375; 96376; 97110; 97166; 97535; 99218; 99251; C1776; J7040; J7120; G0378; G0463; J2405

== ENCOUNTER 2022-08-08 08:07 | Emergency (ER) | payer MEDICARE, SELFPAY ==
[2022-08-08 08:08] VITALS: BP 130/65; PULSE 75; RESP 16; TEMP 36.7; O2SAT 97; BMI 34.9
--- NOTE | 2022-08-08 08:29 | CT_ITS ---
HISTORY: dizziness, headache. TECHNIQUE: Multiple axial images were obtained of the head without intravenous contrast. A radiation dose optimization technique was used for this scan. 248 images. COMPARISON: None. FINDINGS: BRAIN PARENCHYMA: Multiple foci and zones of low attenuation in the bilateral cerebral white matter compatible with chronic small vessel ischemic gliosis. Old lacunar infarcts in the basal ganglia. No acute intra-axial hemorrhage identified. CSF SPACES: Mild generalized volume loss. No midline shift or other significant mass effect. No acute extra-axial hemorrhage seen. OTHER: Intact calvarium. No significant air-fluid levels in the paranasal sinuses or mastoid air cells. Bilateral lens resections. CT/Brain/Head without Contrast IMPRESSION: No acute intracranial process identified. Chronic small vessel ischemic gliosis. Electronically Signed: Celsa Moreira MD at 9:30 EDT ,
[2022-08-08] MEDS: Ondansetron 4 MG/2 ML Vial IV (08:50)
[2022-08-08] MEDS: Acetaminophen 325 MG Tablet 650 MG PO (08:50)
[2022-08-08] MEDS: 0.9% Normal Saline 1,000 ML 1000 ML IV (08:50)
[2022-08-08 09:04] LABS: Absolute Lymphocyte Count 1.07 X10^3/uL (0.83-4.51); Absolute Neutrophil Count 4.9 X10^3/uL (2.0-7.7); Basophil# 0.05 X10^3/uL; Basophil% 0.8 % (0-1); Eosinophil# 0.06 X10^3/uL; Eosinophils% 0.9 % (0-5); Hematocrit 42.1 % (40-54); Hemoglobin 13.6 g/dL (13.0-16.5); Lymphocyte # 1.07 X10^3/ul (0.83-4.51); Lymphocyte % 16.4 % (19-41); Mean Corp Hgb Conc 32.3 g/dL (32-36); Mean Corpuscular Hgb 28.3 pg (27.0-32.0); Mean Corpuscular Volume 87.7 fL (80-94); Mean Platelet Vol. 9.6 fl (6.2-12.0); Monocyte# 0.41 X10^3/uL; Monocyte% 6.3 % (0-10); NRBC Flagged by Analyzer 0 % (0-5); Neutrophil # 4.92 X10^3/uL (2.7-7.7); Neutrophil % 75.3 % (47-70); Platelet Count 210 K/mm3 (150-450); RBC Distribution Width CV 14.1 % (11.6-14.6); RBC Distribution Width SD 45.1 fl (35.1-43.9); White Blood Count 6.5 K/mm3 (4.4-11.0)
--- NOTE | 2022-08-08 09:08 | ED.VIS.CHEST ---
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 Patient states he woke up around 3 AM which is normal for him. Around 5 AM he developed burning in the left side of his chest that radiated to his shoulder and then into his left hand. He has some associated nausea. He received nitro in route which did help with his chest discomfort but did give him a bad headache. Patient states he is pulled muscles in his chest is had similar pain before but denies any injury. He does note that he was chopping wood a couple days ago. He had left total shoulder in December of this year. Days. States that is when he bends over and he stands up he feels lightheaded. Had some urinary frequency yesterday that the noted however he states he was drinking more tea than normal. His child and adolescent therapist is through [facility]. Denies any swelling of his legs, history of DVT or PE. Denies any changes bowel movements, black or blood in his stool. Denies any vision changes. Prior Similar Symptoms: With Prior [place] [facility] Medical History Ambulates with cane Arthritis Back pain Cancer Cardiology follow-up encounter CPAP (continuous positive airway pressure) dependence Diabetes Excessive bleeding Gastric reflux History of echocardiogram History of renal disease History of stress test Hypertension Non-smoker Restless legs Sleep apnea Wears dentures Home Medications apixaban 5 mg tablet (Eliquis) 5 mg PO BID BLOOD THINNER 05/18/16 [History Last Taken 01/29/22] atorvastatin 40 mg tablet 40 mg PO QHS CHOLESTEROL 05/18/16 [History Last Taken 01/31/22] cholecalciferol (vitamin D3) 25 mcg (1,000 unit) tablet (Vitamin D3) 1,000 unit PO DAILY SUPPLEMENT 05/18/16 [History Last Taken 01/27/22] pantoprazole 40 mg tablet,delayed release 40 mg PO DAILY GERD 05/18/16 [History Last Taken 01/31/22] nitroglycerin 0.4 mg sublingual tablet 0.4 mg sublingual Q5M PRN Chest Pain ##1 05/23/16 [Rx Last Taken 01/31/22] cyanocobalamin (vitamin B-12) 500 mcg tablet (B-12 DOTS) 1,000 mcg PO DAILY@0800 SUPPLEMENT 11/23/16 [History Last Taken 01/27/22] metoprolol succinate 25 mg tablet,extended release 24 hr 25 mg PO DAILY BP 06/24/17 [History Last Taken 01/31/22] sennosides 8.6 mg-docusate sodium 50 mg tablet (Stool Softener-Stimulant Laxative) 2 tab PO DAILY STOOL SOFTENER 06/24/17 [History Last Taken 01/31/22] losartan 50 mg tablet 50 mg PO DAILY BP 09/18/17 [History Last Taken 01/31/22] amlodipine 5 mg tablet 5 mg PO DAILY BP 01/18/22 [History Last Taken 01/31/22] dofetilide 250 mcg capsule 250 mcg PO Q12 HEART RATE 01/18/22 [History Last Taken 01/31/22] magnesium oxide 400 mg (241.3 mg magnesium) tablet 400 mg PO DAILYCM SUPPLEMENT 01/18/22 [History Last Taken 01/27/22] melatonin 3 mg tablet 3 mg PO QHS SLEEP 01/18/22 [History Last Taken 01/31/22] acetaminophen 500 mg tablet 1,000 mg PO Q8 14 days #84 tabs 02/02/22 [Rx Last Taken Unknown] tramadol 50 mg tablet 50 - 100 mg PO Q6H PRN PRN Pain Score 4-10 7 days #48 tabs 02/02/22 [Rx Last Taken Unknown] meclizine 25 mg tablet 25 mg PO BID PRN dizziness #20 tabs 08/08/22 [Rx Last Taken Unknown] Allergy/AdvReac Type Severity Reaction Status Date / Time adhesive tape Allergy Rash Verified 08/08/22 08:08 Latex, Natural Rubber Allergy Other Verified 08/08/22 08:08 codeine AdvReac Other Verified 08/08/22 08:08 hydrocodone bitartrate AdvReac Nausea Verified 08/08/22 08:08 [From Vicodin] meperidine HCl [From Demerol] AdvReac Other Verified 08/08/22 08:08 morphine AdvReac Vomiting Verified 08/08/22 08:08 propoxyphene napsylate AdvReac Other Verified 08/08/22 08:08 [From Stevenson] Surgical History History of back surgery History of back surgery History of cardiac catheterization History of carpal tunnel release of both wrists History of coronary artery stent placement History of shoulder surgery Hx of neck surgery Hx of prior ablation treatment Hx of total hip arthroplasty Hx of total knee replacement Hx of total knee replacement Social History Smoking Status: Never smoker ROS ROS ED Constitutional Constitutional ED: Denies chills or fever(s) Eyes Eyes: Denies blurry vision or change in vision ENT ENT ED: Denies rhinorrhea or sore throat Cardiovascular Cardiovascular: Reports as per HPI and chest pain; Denies palpitations Respiratory/Chest Respiratory/Chest: Denies cough or dyspnea Gastrointestinal Gastrointestinal: Reports nausea; Denies abdominal pain or vomiting Genitourinary Genitourinary ED: Reports urinary frequency; Denies dysuria or hematuria Musculoskeletal Musculoskeletal: Denies arthralgias or myalgias Integumentary Denies rash Neurologic Neurologic: Denies headache(s), paresthesias or weakness Psychiatric Psychiatric: Denies anxiety Hematologic/Lymphatic Hematologic/Lymphatic: Reports easy bleeding and easy bruising EXAM Physical Exam Const Vital Signs: 08/08/22 08:08 08/08/22 08:10 08/08/22 10:16 Temperature 98.1 F Temperature Source Temporal Pulse Rate 75 68 Pulse Rate [Lying] Pulse Rate [Sitting (for 1 minute prior to obtaining)] Pulse Rate [Standing (for 1 minute prior to obtaining)] Respiratory Rate 16 16 Respiratory Effort Normal Non-Labored Blood Pressure 130/65 H 107/59 L Blood Pressure [Lying] Blood Pressure [Sitting (for 1 minute prior to obtaining)] Blood Pressure [Standing (for 1 minute prior to obtaining)] Blood Pressure Mean 86 75 Blood Pressure Mean [Lying] Blood Pressure Mean [Sitting (for 1 minute prior to obtaining)] Blood Pressure Mean [Standing (for 1 minute prior to obtaining)] Pulse Ox 97 96 Oxygen Delivery Method Room Air Room Air 08/08/22 12:00 08/08/22 13:22 Temperature Temperature Source Pulse Rate 59 L Pulse Rate [Lying] 65 Pulse Rate [Sitting (for 1 minute prior to obtaining)] 62 Pulse Rate [Standing (for 1 minute prior to obtaining)] 71 Respiratory Rate 18 Respiratory Effort Blood Pressure 116/72 Blood Pressure [Lying] 140/70 H Blood Pressure [Sitting (for 1 minute prior to obtaining)] 146/75 H Blood Pressure [Standing (for 1 minute prior to obtaining)] 155/80 H Blood Pressure Mean 86 Blood Pressure Mean [Lying] 93 Blood Pressure Mean [Sitting (for 1 minute prior to obtaining)] 98 Blood Pressure Mean [Standing (for 1 minute prior to obtaining)] 105 Pulse Ox 97 Oxygen Delivery Method Room Air Positive well nourished and well developed General Appearance ED: well developed and NAD HEENT Reports moist mucous membranes Eyes PERRL and EOMs intact bilaterally Neck supple and no JVD Neck Narrative: Decreased range of motion of the neck however this is chronic per patient Chest Wall inspection of chest normal and palpation of chest normal Chest: Negative for tenderness Resp normal respiratory effort and clear to auscultation bilaterally Cardio regular rate, regular rhythm and no murmurs Peripheral Pulses: pulses 2+ throughout GI normal to inspection, nondistended, normoactive bowel sounds, soft to palpation and non-tender Back/Spine no CVA tenderness Extremity normal to inspection Neuro oriented x3 and CN's II-XII intact bilaterally Motor Exam: Negative for general weakness Psych mental status grossly normal Skin no rashes or lesions noted and no wounds Heart Score History: Moderately Suspicious ECG: Normal Age: >/= 65 years Risk Factors: >/= 3 Risk Factors or History of CAD Troponin: </= Normal Limit Score: 5 MDM MDM MDM Narrative Medical decision making narrative: Patient is evaluated for chest pain that is burning in nature as well as dizziness. EKG is normal with a first-degree AV block and no ischemic changes. No changes compared to prior EKG. Cardiac work-up including 2-hour delta troponin is normal with a troponin of 8 both times. Chest x-ray interpreted by myself as well as radiology does not show any acute process. Patient's been compliant with his anticoagulation to have a low suspicion of a PE. CBC is normal including a normal hemoglobin. Creatinine is mildly elevated at 1.32 but this is his baseline. CMP largely unremarkable. Patient is given a GI cocktail in the ER with improvement of the symptoms. His orthostatics are normal. He is given a 500 cc bolus in the ER. The exact cause of his symptoms is not clear however I have a low suspicion for ACS at this time. It is possible he has vertigo but I cannot perform testing as he has prior neck surgery and very limited range of motion of his neck at baseline. CT of the brain does not show any acute process. He has a normal neurologic exam. No signs of truncal ataxia with normal [id number] as well. Patient is a steady gait in the ER. He will trial meclizine at home and is given a dose in the emergency room. Is given referral for ENT. Is counseled return precautions. Did offer observation given his cardiac risk factors but patient states he would prefer to go home. Is given return precautions. Patient and family verbalized agreement understand this plan of care. Lab Data Attestation: I reviewed the patient's lab results. Labs: Laboratory Results - last 24 hr 08/08/22 08/08/22 08/08/22 08:30 08:30 09:00 WBC 6.5 RBC 4.80 Hgb 13.6 Hct 42.1 MCV 87.7 MCH 28.3 MCHC 32.3 RDW Std Deviation 45.1 H RDW Coeff of Nicholas 14.1 Plt Count 210 MPV 9.6 Immature Gran % (Auto) 0.300 Neut % (Auto) 75.3 H Lymph % (Auto) 16.4 L [place] % (Auto) 6.3 Eos % (Auto) 0.9 Baso % (Auto) 0.8 Absolute Neuts (auto) 4.9 Absolute Lymphs (auto) 1.07 Nucleated RBC % 0 PT 15.9 H INR 1.3 Sodium 140 Potassium 3.7 Chloride 105 Carbon Dioxide 24.0 Anion Gap 11 BUN 17 Creatinine 1.32 H Estim Creat Clear Calc 40.34 Est GFR (MDRD) Af Amer 67 Est GFR (MDRD) Non-Af 55 L BUN/Creatinine Ratio 12.9 Glucose 135 H Calcium 9.0 Total Bilirubin 1.00 AST 15 ALT 21 Alkaline Phosphatase 131 H Troponin I High Sens 8 Total Protein 6.8 Albumin 3.3 Globulin 3.5 Albumin/Globulin Ratio 0.9 Lipase 91 Urine Color Urine Clarity Urine pH Ur Specific [place] Urine Protein Urine Glucose (UA) Urine Ketones Urine Occult Blood Urine Nitrite Urine Bilirubin Urine Urobilinogen Ur Leukocyte Esterase Urine RBC Urine WBC Ur Squamous Epith Cells Urine Bacteria Urine Mucus 08/08/22 08/08/22 09:24 11:25 WBC RBC Hgb Hct MCV MCH MCHC RDW Std Deviation RDW Coeff of Nicholas Plt Count MPV Immature Gran % (Auto) Neut % (Auto) Lymph % (Auto) [place] % (Auto) Eos % (Auto) Baso % (Auto) Absolute Neuts (auto) Absolute Lymphs (auto) Nucleated RBC % PT INR Sodium Potassium Chloride Carbon Dioxide Anion Gap BUN Creatinine Estim Creat Clear Calc Est GFR (MDRD) Af Amer Est GFR (MDRD) Non-Af BUN/Creatinine Ratio Glucose Calcium Total Bilirubin AST ALT Alkaline Phosphatase Troponin I High Sens 8 Total Protein Albumin Globulin Albumin/Globulin Ratio Lipase Urine Color Yellow Urine Clarity Clear Urine pH 7.0 Ur Specific [place] 1.010 Urine Protein Negative Urine Glucose (UA) Normal Urine Ketones Negative Urine Occult Blood Negative Urine Nitrite Negative Urine Bilirubin Negative Urine Urobilinogen Normal Ur Leukocyte Esterase 25 H Urine RBC 0 SEEN Urine WBC 0-5 SEEN Ur Squamous Epith Cells 0 SEEN Urine Bacteria 0 SEEN Urine Mucus 0 SEEN Radiography Diagnostic Testing: Clinical Impression(s) from Imaging Studies Brain CT 08/08/22 08:29 IMPRESSION: No acute intracranial process identified. Chronic small vessel ischemic gliosis. Electronically Signed: Celsa Moreira MD at 9:30 EDT , Chest X-Ray 08/08/22 09:10 IMPRESSION: No acute cardiopulmonary process identified. Electronically Signed: Celsa Moreira MD at 9:32 EDT , Rhythm Strip Rhythm Strip: Sinus Rhythm Rate: 78 Ectopy: None EKG Initial EKG: Attestation: I personally reviewed and interpreted this EKG as follows: Interpretation: Sinus Rhythm Comments: Sinus rhythm at a rate of 78 with sinus arrhythmia First-degree AV block with a MD interval 248 Normal axis Normal intervals Normal ST segments Compared to prior EKG on 02/01/2022, no significant change Discharge Plan Triage Chief Complaint: Chest Pain ED Provider: Gwendolyn Lopes Dx/Rx/DC Orders Clinical Impression: Chest pain, Dizziness Instructions: ED Chest Pain, Uncertain Cause, ED Dizziness, Uncertain Cause Prescriptions: New meclizine 25 mg tablet 25 mg PO BID PRN (Reason: dizziness) Qty: 20 0RF No Action atorvastatin 40 MG tablet 40 mg PO QHS Label Comments: Cholesterol pantoprazole 40 MG tablet 40 mg PO DAILY Label Comments: Acid Refulx/Stomach Acid cholecalciferol (vitamin D3) [Vitamin D3] 1,000 UNIT tablet 1,000 unit PO DAILY Label Comments: Supplement Eliquis 5 MG tablet 5 mg PO BID Label Comments: STOP 48 HR PRIOR nitroglycerin 0.4 MG tablet 0.4 mg sublingual Q5M PRN (Reason: Chest Pain) Qty: 1 0RF Label Comments: Chest pain Rx Instructions: Place one tab under tongue every 5 minutes x 3 doses as needed cyanocobalamin (vitamin B-12) [B-12 DOTS] 500 MCG tablet 1,000 mcg PO DAILY@0800 sennosides-docusate sodium [Stool Softener-Stimulant Laxat] 1 TABLET tablet 2 tab PO DAILY Label Comments: CONSTIPATION metoprolol succinate 25 MG tablet 25 mg PO DAILY Label Comments: HEART,BP losartan 50 MG tablet 50 mg PO DAILY dofetilide 250 MCG capsule 250 mcg PO Q12 Label Comments: Heart rate/rhythm melatonin 3 MG tablet 3 mg PO QHS Label Comments: Sleep amlodipine 5 MG tablet 5 mg PO DAILY magnesium oxide 400 MG tablet 400 mg PO DAILYCM Label Comments: Supplement tramadol 50 mg Tablet 50 - 100 mg PO Q6H PRN PRN (Reason: Pain Score 4-10) 7 Days Qty: 48 0RF acetaminophen 500 mg Tablet 1,000 mg PO Q8 14 Days Qty: 84 0RF Rx Instructions: Do not take more than 3000 mg Tylenol in a 24-hour period. Primary Care Provider: Galindo Yuan Referrals: Lalo Keenan MD [Med Staff - Active Staff] - 3-5 Days if not improving Galindo Yuan MD [Primary Care Provider] - Activity Restrictions/Additional Instructions: The exact cause of your discomfort today is not clear however your work-up was largely normal. Your orthostatic vital signs were normal, your EKG was normal, your high-sensitivity troponin was normal x2, and your CT did not show any acute process in your brain. No acute electrolyte abnormalities or signs of anemia. You have been referred to an ENT in case this is vertigo causing your dizziness. Please follow-up with your child and adolescent therapist as well as your primary care doctor. You are given a GI cocktail in the ER which did seem to improve some of the burning in your chest. Try to adhere to a low acid diet to see if that helps with your symptoms. Disposition Disposition: Home, Self Care Discharge Date/Time: 08/08/22 14:14
--- NOTE | 2022-08-08 09:10 | RAD_ITS ---
HISTORY: chest pain. TECHNIQUE: XR Chest 2 Views. COMPARISON: 11/09/2020. FINDINGS: CARDIOMEDIASTINAL BORDERS: Cardiac silhouette within normal limits in size. Mediastinal contour unremarkable with calcification of the aortic knob. LUNGS: Mild linear bibasilar scarring again seen. PLEURA: No pleural effusion or pneumothorax seen. OSSEOUS STRUCTURES: Interval left shoulder arthroplasty. Cervical spinal fusion hardware again seen. RAD/Chest PA and Lateral IMPRESSION: No acute cardiopulmonary process identified. Electronically Signed: Celsa Moreira MD at 9:32 EDT ,
[2022-08-08 09:17] LABS: International Normalized Ratio 1.3; Prothrombin Time (Protime)PT. 15.9 SECONDS (11.7-14.9)
[2022-08-08 09:24] LABS: ALB/GLOB Ratio 0.9 RATIO (0.9-2.4); AST(SGOT) 15 U/L (15-37); Alanine Aminotransfer ALT/SGPT 21 U/L (16-61); Albumin, Serum 3.3 g/dL (3.2-5.0); Alkaline Phosphatase 131 U/L (45-117); Anion Gap 11 (5-15); BUN 17 mg/dL (7-18); BUN/Creat Ratio 12.9 RATIO (10-20); Chloride 105 mmol/L (98-107); Creatinine, Serum 1.32 mg/dL (0.70-1.30); EST Glomerular Filtration Rate 55 mL/min (>60); Est Glom Filt Rate - Afr Amer 67 mL/min (>60); Estimated Creatinine Clearance 40.34 ml/min; Globulin 3.5 g/dL (2.2-4.2); Glucose 135 mg/dL (74-106); Lipase 91 U/L (73-393); Potassium 3.7 mmol/L (3.5-5.1); Protein, Total 6.8 g/dL (6.4-8.2); Sodium Level 140 mmol/L (136-145); Troponin-I HS (w/2H Reflex) 8 pg/mL (3.0-78.0)
[2022-08-08 09:28] LABS: Bacteria 0 SEEN /hpf (None Seen); Mucous, Urine 0 SEEN /hpf (<or=2+); Red Blood Cells-Urine 0 SEEN /hpf (0-5); Squamous Epithelial Cells - UA 0 SEEN /hpf (0-5)
[2022-08-08 09:31] LABS: Color, Urine Yellow (Yellow); Glucose, Dipstick Normal (Normal); Ketone-Dipstick Negative (Negative); Leukocyte Esterase-Dipstick 25 /ul (Negative); Nitrite-Dipstick Negative (Negative); Occult Blood-Urine Negative /ul (Negative); Protein-Dipstick Negative (Negative); Urine Bilirubin Dipstick Negative (Negative); Urine Clarity Clear (Clear); Urine Urobilinogen Normal (Normal)
[2022-08-08 09:41] LABS: White Blood Cells 0-5 SEEN /hpf (0-5)
[2022-08-08 10:16] VITALS: BP 107/59; PULSE 68; RESP 16; O2SAT 96
[2022-08-08 10:59] LABS: Reflex Troponin-HS? (from REC) Y
[2022-08-08 11:48] LABS: Troponin-I HS 8 pg/mL (3.0-78.0)
[2022-08-08] MEDS: Mag Hydrox/Al Hydrox/Simeth 30 ML UDC PO (11:59)
[2022-08-08 12:00] VITALS: BP 116/72; PULSE 59; RESP 18; O2SAT 97
[2022-08-08 13:22] VITALS: BP 140/70; BP 146/75; BP 155/80; PULSE 62; PULSE 65; PULSE 71
[2022-08-08] MEDS: Meclizine HCl 25 MG Tablet PO (13:56)
== END 2022-08-08 14:14 | disposition home or self-care (01) ==
PROVIDERS: Emergency Provider Emergency Medicine; PCP Internal Medicine; Visit Provider Emergency Medicine
DX: R07.9 Chest pain, unspecified (principal); E11.22 Type 2 diabetes mellitus with diabetic chronic kidney disease; I48.91 Unspecified atrial fibrillation; N18.30 Chronic kidney disease, stage 3 unspecified; R42 Dizziness and giddiness; I44.0 Atrioventricular block, first degree; I12.9 Hypertensive 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 4 chronic kidney disease, or unspecified chronic kidney disease; I25.10 Atherosclerotic heart disease of native coronary artery without angina pectoris; K21.9 Gastro-esophageal reflux disease without esophagitis; Z95.5 Presence of coronary angioplasty implant and graft; Z79.01 Long term (current) use of anticoagulants; Z79.899 Other long term (current) drug therapy
CPT/HCPCS: 36415; 70450; 71046; 80053; 81001; 83690; 84484; 85025; 85610; 93005; 96361; 96374; 99285; J7030; A4216; J2405

== ENCOUNTER 2023-01-27 09:12 | Emergency (ER) | payer MEDICARE, SELFPAY ==
[2023-01-27 09:13] VITALS: BP 167/76; PULSE 79; RESP 18; TEMP 36.3; O2SAT 98; BMI 34.4
[2023-01-27 09:25] VITALS: BP 124/72; PULSE 70; RESP 18; O2SAT 96
--- NOTE | 2023-01-27 09:42 | EX.ED.DYSGE1 ---
HPI History of Present Illness Chief Complaint: Wound Informant: patient Narrative Narrative: Patient is an 82-year-old male with history of coronary artery disease, CKD 3, proximal atrial fibrillation (on Eliquis therapy) presenting with increased redness, swelling and discomfort of his left upper extremity. Patient states it started next to where he had his IV recently. Patient states he had a recent cardiac catheterization at the beginning of the month and they went in through his right radial artery. Over the past 2 days he has noticed the pain, swelling and redness. He notes he gets intermittent numbness in his left fourth and fifth fingers but that is been more chronic. He currently does not have numbness. Denies any systemic symptoms such as fever or chills. Denies any chest pain or shortness of breath. States he is off his Eliquis for 2 days for the procedure but has been on it consistently since. No other complaints at this time. [facility] Medical History Ambulates with cane Arthritis Back pain Cancer Cardiology follow-up encounter CPAP (continuous positive airway pressure) dependence Diabetes Excessive bleeding Gastric reflux History of echocardiogram History of renal disease History of stress test Hypertension Non-smoker Restless legs Sleep apnea Wears dentures Home Medications apixaban 5 mg tablet (Eliquis) 5 mg PO BID BLOOD THINNER 05/18/16 [History Last Taken 01/29/22] atorvastatin 40 mg tablet 40 mg PO QHS CHOLESTEROL 05/18/16 [History Last Taken 01/31/22] cholecalciferol (vitamin D3) 25 mcg (1,000 unit) tablet (Vitamin D3) 1,000 unit PO DAILY SUPPLEMENT 05/18/16 [History Last Taken 01/27/22] pantoprazole 40 mg tablet,delayed release 40 mg PO DAILY GERD 05/18/16 [History Last Taken 01/31/22] nitroglycerin 0.4 mg sublingual tablet 0.4 mg sublingual Q5M PRN Chest Pain ##1 05/23/16 [Rx Last Taken 01/31/22] cyanocobalamin (vitamin B-12) 500 mcg tablet (B-12 DOTS) 1,000 mcg PO DAILY@0800 SUPPLEMENT 11/23/16 [History Last Taken 01/27/22] metoprolol succinate 25 mg tablet,extended release 24 hr 25 mg PO DAILY BP 06/24/17 [History Last Taken 01/31/22] sennosides 8.6 mg-docusate sodium 50 mg tablet (Stool Softener-Stimulant Laxative) 2 tab PO DAILY STOOL SOFTENER 06/24/17 [History Last Taken 01/31/22] losartan 50 mg tablet 50 mg PO DAILY BP 09/18/17 [History Last Taken 01/31/22] amlodipine 5 mg tablet 5 mg PO DAILY BP 01/18/22 [History Last Taken 01/31/22] dofetilide 250 mcg capsule 250 mcg PO Q12 HEART RATE 01/18/22 [History Last Taken 01/31/22] magnesium oxide 400 mg (241.3 mg magnesium) tablet 400 mg PO DAILYCM SUPPLEMENT 01/18/22 [History Last Taken 01/27/22] melatonin 3 mg tablet 3 mg PO QHS SLEEP 01/18/22 [History Last Taken 01/31/22] acetaminophen 500 mg tablet 1,000 mg PO Q8 14 days #84 tabs 02/02/22 [Rx Last Taken Unknown] tramadol 50 mg tablet 50 - 100 mg PO Q6H PRN PRN Pain Score 4-10 7 days #48 tabs 02/02/22 [Rx Last Taken Unknown] meclizine 25 mg tablet 25 mg PO BID PRN dizziness #20 tabs 08/08/22 [Rx Last Taken Unknown] cephalexin 500 mg capsule 500 mg PO Q6 7 days #28 CAPSULES 01/27/23 [Rx Last Taken Unknown] Allergy/AdvReac Type Severity Reaction Status Date / Time adhesive tape Allergy Rash Verified 01/27/23 09:16 Latex, Natural Rubber Allergy Other Verified 01/27/23 09:16 codeine AdvReac Other Verified 01/27/23 09:16 hydrocodone bitartrate AdvReac Nausea Verified 01/27/23 09:16 [From Vicodin] meperidine HCl [From Demerol] AdvReac Other Verified 01/27/23 09:16 morphine AdvReac Vomiting Verified 01/27/23 09:16 propoxyphene napsylate AdvReac Other Verified 01/27/23 09:16 [From Darvocet-N] Family History no significant family his Surgical History History of back surgery History of back surgery History of cardiac catheterization History of carpal tunnel release of both wrists History of coronary artery stent placement History of shoulder surgery Hx of neck surgery Hx of prior ablation treatment Hx of total hip arthroplasty Hx of total knee replacement Hx of total knee replacement Social History household members: spouse housing: house Smoking Status: Never smoker ROS ROS ED Constitutional Constitutional ED: Denies chills or fever(s) Cardiovascular Cardiovascular: Denies chest pain or palpitations Respiratory/Chest Respiratory/Chest: Denies cough or dyspnea Gastrointestinal Gastrointestinal: Denies nausea or vomiting Musculoskeletal Musculoskeletal: Reports other Details: left arm pain ; Denies arthralgias or myalgias Integumentary Reports rash Neurologic Neurologic: Reports paresthesias LUE (Fourth and fifth fingers, intermittent, chronic); Denies headache(s) or weakness Psychiatric Psychiatric: Denies anxiety or depression Hematologic/Lymphatic Hematologic/Lymphatic: Reports easy bleeding and easy bruising EXAM Physical Exam Const Vital Signs: 01/27/23 09:13 01/27/23 09:25 Temperature 97.3 F L Temperature Source Temporal Pulse Rate 79 70 Respiratory Rate 18 18 Blood Pressure 167/76 H 124/72 H Blood Pressure Mean 106 89 Pulse Ox 98 96 Oxygen Delivery Method Room Air Room Air Positive well nourished and well developed General Appearance ED: well developed and NAD HEENT Reports moist mucous membranes Neck supple and no JVD Chest Wall inspection of chest normal Resp normal respiratory effort Cardio regular rate and regular rhythm Extremity Extremity Narrative: Soft tissue edema of the medial aspect of the left elbow area. Normal range of motion of the elbow without pain. No joint effusion appreciated. 2+ radial pulse. Neuro oriented x3 Neuro Narrative: No focal deficits appreciated Normal movement of the hands with normal transcription typist strength. Sensorium / Orientation: alert Motor Exam: Negative for general weakness Skin Skin Narrative: Erythema warmth and mild tenderness over the medial left AC fossa. Erythema spans approximately 8 cm x 1 cm and is consistent with lymphangitic streaking/phlebitis. No associated crepitus. No fluctuance appreciated. No obvious wound present. MDM MDM MDM Narrative Medical decision making narrative: Patient is evaluated for swelling redness and pain of his left elbow area where he had a recent IV. Physical exam most consistent with phlebitis. Am concerned there could be an infectious component and will cover the patient with Keflex. First dose was given in the emergency room. Given that he is chronically anticoagulated lower suspicion for DVT and I do not think he requires a venous duplex at this time. He does not have any systemic symptoms I do not think lab work or IV antibiotics are indicated. He is also counseled on warm compresses. Erythema is demarcated with a marking pen and patient is given return precautions including development of systemic symptoms or worsening of his symptoms/spreading of the erythema. He verbalizes agreement understand this plan. Encouraged to follow-up with primary care physician in 2 to 3 days for wound check. Patient verbalized agreement understand this plan. Discharged home in stable condition. Discharge Plan Triage Chief Complaint: Wound ED Provider: Gwendolyn Lopes Dx/Rx/DC Orders Clinical Impression: Phlebitis and thrombophlebitis Instructions: ED Cellulitis, ED Thrombophlebitis, Superficial Prescriptions: New cephalexin 500 mg capsule 500 mg PO Q6 7 Days Qty: 28 0RF No Action atorvastatin 40 MG tablet 40 mg PO QHS Label Comments: Cholesterol pantoprazole 40 MG tablet 40 mg PO DAILY Label Comments: Acid Refulx/Stomach Acid cholecalciferol (vitamin D3) [Vitamin D3] 1,000 UNIT tablet 1,000 unit PO DAILY Label Comments: Supplement Eliquis 5 MG tablet 5 mg PO BID Label Comments: STOP 48 HR PRIOR nitroglycerin 0.4 MG tablet 0.4 mg sublingual Q5M PRN (Reason: Chest Pain) Qty: 1 0RF Label Comments: Chest pain Rx Instructions: Place one tab under tongue every 5 minutes x 3 doses as needed cyanocobalamin (vitamin B-12) [B-12 DOTS] 500 MCG tablet 1,000 mcg PO DAILY@0800 sennosides-docusate sodium [Stool Softener-Stimulant Laxat] 1 TABLET tablet 2 tab PO DAILY Label Comments: CONSTIPATION metoprolol succinate 25 MG tablet 25 mg PO DAILY Label Comments: HEART,BP losartan 50 MG tablet 50 mg PO DAILY dofetilide 250 MCG capsule 250 mcg PO Q12 Label Comments: Heart rate/rhythm melatonin 3 MG tablet 3 mg PO QHS Label Comments: Sleep amlodipine 5 MG tablet 5 mg PO DAILY magnesium oxide 400 MG tablet 400 mg PO DAILYCM Label Comments: Supplement tramadol 50 mg Tablet 50 - 100 mg PO Q6H PRN PRN (Reason: Pain Score 4-10) 7 Days Qty: 48 0RF acetaminophen 500 mg Tablet 1,000 mg PO Q8 14 Days Qty: 84 0RF Rx Instructions: Do not take more than 3000 mg Tylenol in a 24-hour period. meclizine 25 mg tablet 25 mg PO BID PRN (Reason: dizziness) Qty: 20 0RF Primary Care Provider: Galindo Yuan Referrals: Galindo Yuan MD [Primary Care Provider] - Activity Restrictions/Additional Instructions: Suspect you have inflammation of the vein however there could be a secondary cellulitis/infection as well so we will start you on antibiotics. Apply warm compresses to the area to help with inflammation and pain. Take Tylenol as needed at home. Continue taking your Eliquis. Follow-up with your primary care doctor in 2 to 3 days for wound check. Return if the redness and pain is worsening if you develop further symptoms/further concerns. Disposition Disposition: Home, Self Care Discharge Date/Time: 01/27/23 10:01
[2023-01-27] MEDS: Cephalexin 250 MG Capsule 500 MG PO (09:47)
== END 2023-01-27 10:01 | disposition home or self-care (01) ==
PROVIDERS: Emergency Provider Emergency Medicine; PCP Internal Medicine; Visit Provider Emergency Medicine
DX: I80.8 Phlebitis and thrombophlebitis of other sites (principal); I48.0 Paroxysmal atrial fibrillation; N18.30 Chronic kidney disease, stage 3 unspecified; I12.9 Hypertensive 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 4 chronic kidney disease, or unspecified chronic kidney disease; I25.10 Atherosclerotic heart disease of native coronary artery without angina pectoris; Z95.5 Presence of coronary angioplasty implant and graft; Z79.01 Long term (current) use of anticoagulants; Z79.899 Other long term (current) drug therapy
CPT/HCPCS: 99283

== ENCOUNTER 2023-06-24 07:56 | Emergency (ER) | payer MEDICARE, SELFPAY ==
[2023-06-24 07:57] VITALS: BP 118/56; PULSE 66; RESP 11; TEMP 36.6; O2SAT 99; BMI 33.0
--- NOTE | 2023-06-24 08:08 | EKG12_ITS ---
Test Reason : CP Blood Pressure : / mmHG Vent. Rate : 066 BPM Atrial Rate : 066 BPM P-R Int : 244 ms QRS Dur : 086 ms QT Int : 440 ms P-R-T Axes : 083 025 015 degrees QTc Int : 461 ms Sinus rhythm with 1st degree A-V block Otherwise normal ECG Confirmed by JENNA LORD, WALTER ([id number]), social media editor RAJENDRA ROGERS ([id number]) on 06/25/2023 1:27:06 PM Referred By: ALMA Confirmed By:WALTER WEST MD
--- NOTE | 2023-06-24 08:17 | RAD_ITS ---
STUDY: X-RAY CHEST REASON FOR EXAM: Male, 82 years old. Chest pain TECHNIQUE: Single AP portable view of the chest. COMPARISON: None. FINDINGS: The lungs are clear and expanded. There is no demonstrated pleural abnormality. Normal size heart. Normal mediastinum and savana. Normal visualized pulmonary arteries. There is atherosclerotic calcification of the aortic arch . There are degenerative changes of the visualized thoracic spine. There is postoperative change of the cervical spine. 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 There is no demonstrated abnormality of the visualized soft tissue structures of the upper abdomen. RAD/Chest 1 View (Portable) IMPRESSION: Degenerative and postoperative changes, as described above. No demonstrated acute cardiopulmonary process. Electronically Signed: Jay Bedoya MD at 9:12 EDT ,
[2023-06-24 08:24] LABS: Absolute Lymphocyte Count 1.59 X10^3/uL (0.83-4.51); Absolute Neutrophil Count 5.2 X10^3/uL (2.0-7.7); Basophil# 0.07 X10^3/uL; Basophil% 0.9 % (0-1); Eosinophil# 0.12 X10^3/uL; Eosinophils% 1.6 % (0-5); Hematocrit 45.6 % (40-54); Hemoglobin 14.2 g/dL (13.0-16.5); Lymphocyte # 1.59 X10^3/ul (0.83-4.51); Lymphocyte % 21.2 % (19-41); Mean Corp Hgb Conc 31.1 g/dL (32-36); Mean Corpuscular Hgb 28.7 pg (27.0-32.0); Mean Corpuscular Volume 92.1 fL (80-94); Monocyte% 6.7 % (0-10); NRBC Flagged by Analyzer 0 % (0-5); Neutrophil # 5.21 X10^3/uL (2.7-7.7); Neutrophil % 69.3 % (47-70); Platelet Count 230 K/mm3 (150-450); RBC Distribution Width CV 14.2 % (11.6-14.6); RBC Distribution Width SD 48.1 fl (35.1-43.9); Red Blood Count 4.95 M/mm3 (4.6-6.2); White Blood Count 7.5 K/mm3 (4.4-11.0)
[2023-06-24 08:43] LABS: Anion Gap 5 (5-15); BUN 17 mg/dL (7-18); BUN/Creat Ratio 14.3 RATIO (10-20); Chloride 108 mmol/L (98-107); Creatinine, Serum 1.19 mg/dL (0.70-1.30); EST Glomerular Filtration Rate 62 mL/min (>60); Est Glom Filt Rate - Afr Amer 75 mL/min (>60); Estimated Creatinine Clearance 44.75 ml/min; Glucose 129 mg/dL (74-106); Potassium 3.9 mmol/L (3.5-5.1); Sodium Level 140 mmol/L (136-145); Troponin-I HS (w/2H Reflex) 7 pg/mL (3.0-78.0)
--- NOTE | 2023-06-24 09:08 | ED.VIS.CHEST ---
HPI History of Present Illness Chief Complaint: Chest Pain Narrative Narrative: 82-year-old male with CAD, multiple cardiac stents, A-fib, hypertension, CKD presenting with an episode of chest pain which she described as achy. Episode started about 645 this morning while he was seated in exam which. He took a bite and became nauseous and diaphoretic. states he did not look pale. Patient got up from the table and went to sit down the living room. He took a nitroglycerin which eased the pain. He states he felt short of breath but this episode not not typical for him. Recently had clean cardiac catheterization by Dr. Rosas. Patient anticoagulated on Eliquis for A-fib history. Patient states chest pain is improved. His shortness of breath is improved. He states he is no longer sweaty and nauseous [facility] Medical History Ambulates with cane Arthritis Back pain Cancer Cardiology follow-up encounter CPAP (continuous positive airway pressure) dependence Diabetes Excessive bleeding Gastric reflux History of echocardiogram History of renal disease History of stress test Hypertension Non-smoker Restless legs Sleep apnea Wears dentures Home Medications apixaban 5 mg tablet (Eliquis) 5 mg PO BID BLOOD THINNER 05/18/16 [History Last Taken 01/29/22] atorvastatin 40 mg tablet 40 mg PO QHS CHOLESTEROL 05/18/16 [History Last Taken 01/31/22] cholecalciferol (vitamin D3) 25 mcg (1,000 unit) tablet (Vitamin D3) 1,000 unit PO DAILY SUPPLEMENT 05/18/16 [History Last Taken 01/27/22] pantoprazole 40 mg tablet,delayed release 40 mg PO DAILY GERD 05/18/16 [History Last Taken 01/31/22] nitroglycerin 0.4 mg sublingual tablet 0.4 mg sublingual Q5M PRN Chest Pain ##1 05/23/16 [Rx Last Taken 01/31/22] cyanocobalamin (vitamin B-12) 500 mcg tablet (B-12 DOTS) 1,000 mcg PO DAILY@0800 SUPPLEMENT 11/23/16 [History Last Taken 01/27/22] metoprolol succinate 25 mg tablet,extended release 24 hr 50 mg PO DAILY BP 06/24/17 [History Last Taken 01/31/22] sennosides 8.6 mg-docusate sodium 50 mg tablet (Stool Softener-Stimulant Laxative) 2 tab PO DAILY STOOL SOFTENER 06/24/17 [History Last Taken 01/31/22] losartan 50 mg tablet 50 mg PO DAILY BP 09/18/17 [History Last Taken 01/31/22] amlodipine 5 mg tablet 5 mg PO DAILY BP 01/18/22 [History Last Taken 01/31/22] dofetilide 250 mcg capsule 250 mcg PO Q12 HEART RATE 01/18/22 [History Last Taken 01/31/22] magnesium oxide 400 mg (241.3 mg magnesium) tablet 400 mg PO DAILYCM SUPPLEMENT 01/18/22 [History Last Taken 01/27/22] melatonin 3 mg tablet 3 mg PO QHS SLEEP 01/18/22 [History Last Taken 01/31/22] acetaminophen 500 mg tablet 1,000 mg (2 x 500 mg) PO Q8 14 days #84 tabs 02/02/22 [Rx Last Taken Unknown] tramadol 50 mg tablet 50 - 100 mg (1 - 2 x 50 mg) PO Q6H PRN PRN Pain Score 4-10 7 days #48 tabs 02/02/22 [Rx Last Taken Unknown] meclizine 25 mg tablet 25 mg PO BID PRN dizziness #20 tabs 08/08/22 [Rx Last Taken Unknown] Allergy/AdvReac Type Severity Reaction Status Date / Time adhesive tape Allergy Rash Verified 06/24/23 08:02 Latex, Natural Rubber Allergy Other Verified 06/24/23 08:02 codeine AdvReac Other Verified 06/24/23 08:02 hydrocodone bitartrate AdvReac Nausea Verified 06/24/23 08:02 [From Vicodin] meperidine HCl [From Demerol] AdvReac Other Verified 06/24/23 08:02 propoxyphene napsylate AdvReac Other Verified 06/24/23 08:02 [From Darvocet-N] Surgical History History of back surgery History of back surgery History of cardiac catheterization History of carpal tunnel release of both wrists History of coronary artery stent placement History of shoulder surgery Hx of neck surgery Hx of prior ablation treatment Hx of total hip arthroplasty Hx of total knee replacement Hx of total knee replacement Social History household members: spouse housing: house Smoking Status: Never smoker ROS ROS ED Constitutional Constitutional ED: Reports sweats; Denies chills or fever(s) Eyes Eyes: Denies blurry vision or change in vision ENT ENT ED: Denies ear pain or sore throat Cardiovascular Cardiovascular: Reports chest pain; Denies palpitations or racing heartbeat Respiratory/Chest Respiratory/Chest: Reports dyspnea; Denies cough or sputum Gastrointestinal Gastrointestinal: Reports nausea; Denies abdominal pain, constipation, diarrhea or vomiting Genitourinary Genitourinary ED: Denies dysuria, hematuria or urinary frequency Musculoskeletal Musculoskeletal: Denies arthralgias, myalgias or neck pain Integumentary Denies abscess, Abrasions or rash Neurologic Neurologic: Denies headache(s), paresthesias or weakness Psychiatric Psychiatric: Denies anxiety, depression, suicidal ideation or suicidal thoughts Endocrine Endocrinology: Denies polydipsia or polyuria EXAM Physical Exam Const Vital Signs: 06/24/23 07:57 06/24/23 07:57 06/24/23 09:56 Temperature 97.8 F Temperature Source Oral Pulse Rate 66 60 Respiratory Rate 11 L 98 H Respiratory Effort Normal Non-Labored Respiratory Pattern Normal Blood Pressure 118/56 L 126/76 H Blood Pressure Mean 76 92 Pulse Ox 99 98 Oxygen Delivery Method Room Air Room Air Positive well nourished General Appearance ED: NAD HEENT Reports moist mucous membranes Eyes PERRL and EOMs intact bilaterally Resp normal respiratory effort and clear to auscultation bilaterally Cardio regular rate and regular rhythm GI normal to inspection, nondistended, normoactive bowel sounds Extremity normal to inspection General Extremety ED: Negative for edema or pulses abnormal General Extremity: Negative for edema or pulses abnormal Neuro oriented x3 and CN's II-XII intact bilaterally Sensorium / Orientation: awake Motor Exam: strength 5/5 throughout Psych mental status grossly normal Skin no rashes or lesions noted Heart Score History: Moderately Suspicious ECG: Normal Age: >/= 65 years Risk Factors: >/= 3 Risk Factors or History of CAD Score: 5 MDM MDM MDM Narrative Medical decision making narrative: Patient with multiple comorbidities presenting with chest pain which started at about 645. Its improved. He took nitroglycerin today. Patient states he had a normal heart catheterization recently. Differential includes acute coronary syndrome, CHF, pneumonia, pneumothorax, gastritis, GERD, A-fib. Patient is on Eliquis so PE is unlikely. CBC discussed with blood cell count, hemoglobin, platelets, differential. BMP to assess renal function, electrolytes, glucose. High-sensitivity troponin EKG to assess for ischemia. Chest x-ray to rule out pneumonia or CHF. Patient had aspirin prior to arrival. EKG on my interpretation shows normal sinus rhythm with a ventricular of 66 bpm with first-degree AV block. It is noted that he had flipped into atrial fibrillation on the monitor in the room with a ventricular response was within normal limits. CBC was obtained to assess white blood cell count, hemoglobin and platelets. This was normal. BMP to assess renal function electrolytes, glucose and this was unremarkable. Patient had high-sensitivity troponin and delta troponin drawn and they were both 7. Chest x-ray on my interpretation shows no acute process. The radiologist or persistent agrees. At this point leighann with the family it is unlikely be cardiac especially with her recent cardiac catheter was negative. Patient did express to me that he has been under a lot of stress recently because he found his [id number] and has been having nightmares and its been upsetting him and he is wondering if maybe has anxiety over this. I recommended that he follow-up with his senior software qa analyst initially due to his medications that he is on to make sure what would be safe for him and he states he has appointment coming up at the end of the month. Patient return precautions. Impression: 1. chest pain 2. Nausea Lab Data Attestation: I reviewed the patient's lab results. Labs: Laboratory Results - last 24 hr 06/24/23 06/24/23 08:15 10:30 WBC 7.5 RBC 4.95 Hgb 14.2 Hct 45.6 MCV 92.1 MCH 28.7 MCHC 31.1 L RDW Std Deviation 48.1 H RDW Coeff of Nicholas 14.2 Plt Count 230 MPV 9.0 Immature Gran % (Auto) 0.300 Neut % (Auto) 69.3 Lymph % (Auto) 21.2 [place] % (Auto) 6.7 Eos % (Auto) 1.6 Baso % (Auto) 0.9 Absolute Neuts (auto) 5.2 Absolute Lymphs (auto) 1.59 Nucleated RBC % 0 Sodium 140 Potassium 3.9 Chloride 108 H Carbon Dioxide 27.0 Anion Gap 5 BUN 17 Creatinine 1.19 Estim Creat Clear Calc 44.75 Est GFR (MDRD) Af Amer 75 Est GFR (MDRD) Non-Af 62 BUN/Creatinine Ratio 14.3 Glucose 129 H Calcium 9.0 Troponin I High Sens 7 7 Radiography Diagnostic Testing: Clinical Impression(s) from Imaging Studies Chest X-Ray 06/24/23 08:17 IMPRESSION: Degenerative and postoperative changes, as described above. No demonstrated acute cardiopulmonary process. Electronically Signed: Jay Bedoya MD at 9:12 EDT , Discharge Plan Triage Chief Complaint: Chest Pain ED Provider: Koffi Rome Dx/Rx/DC Orders Instructions: ED Chest Pain, Uncertain Cause Prescriptions: No Action atorvastatin 40 MG tablet 40 mg PO QHS Patient Comments: Cholesterol pantoprazole 40 MG tablet 40 mg PO DAILY Patient Comments: Acid Refulx/Stomach Acid cholecalciferol (vitamin D3) [Vitamin D3] 1,000 UNIT tablet 1,000 unit PO DAILY Patient Comments: Supplement Eliquis 5 MG tablet 5 mg PO BID Patient Comments: STOP 48 HR PRIOR nitroglycerin 0.4 MG tablet 0.4 mg sublingual Q5M PRN (Reason: Chest Pain) Qty: 1 0RF Patient Comments: Chest pain Rx Instructions: Place one tab under tongue every 5 minutes x 3 doses as needed cyanocobalamin (vitamin B-12) [B-12 DOTS] 500 MCG tablet 1,000 mcg PO DAILY@0800 sennosides-docusate sodium [Stool Softener-Stimulant Laxat] 1 TABLET tablet 2 tab PO DAILY Patient Comments: CONSTIPATION metoprolol succinate 25 MG tablet 50 mg PO DAILY Patient Comments: HEART,BP losartan 50 MG tablet 50 mg PO DAILY dofetilide 250 MCG capsule 250 mcg PO Q12 Patient Comments: Heart rate/rhythm melatonin 3 MG tablet 3 mg PO QHS Patient Comments: Sleep amlodipine 5 MG tablet 5 mg PO DAILY magnesium oxide 400 MG tablet 400 mg PO DAILYCM Patient Comments: Supplement tramadol 50 mg Tablet 50 - 100 mg PO Q6H PRN PRN (Reason: Pain Score 4-10) 7 Days Qty: 48 0RF acetaminophen 500 mg Tablet 1,000 mg PO Q8 14 Days Qty: 84 0RF Rx Instructions: Do not take more than 3000 mg Tylenol in a 24-hour period. meclizine 25 mg tablet 25 mg PO BID PRN (Reason: dizziness) Qty: 20 0RF Primary Care Provider: Galindo Yuan Referrals: Galindo Yuan MD [Primary Care Provider] - Disposition Disposition: Home, Self Care
[2023-06-24 09:56] VITALS: BP 126/76; PULSE 60; RESP 98; O2SAT 98
[2023-06-24 10:17] LABS: Reflex Troponin-HS? (from REC) Y
[2023-06-24 10:50] LABS: Troponin-I HS 7 pg/mL (3.0-78.0)
[2023-06-24 11:17] VITALS: BP 112/60; PULSE 63; RESP 17; O2SAT 97
== END 2023-06-24 11:19 | disposition home or self-care (01) ==
PROVIDERS: Emergency Provider Student in an Organized Health Care Education/Training Program; PCP Internal Medicine; Visit Provider Student in an Organized Health Care Education/Training Program
DX: R07.9 Chest pain, unspecified (principal); I48.91 Unspecified atrial fibrillation; R11.0 Nausea; I25.10 Atherosclerotic heart disease of native coronary artery without angina pectoris; I12.9 Hypertensive 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 4 chronic kidney disease, or unspecified chronic kidney disease; N18.9 Chronic kidney disease, unspecified; Z95.5 Presence of coronary angioplasty implant and graft; Z79.01 Long term (current) use of anticoagulants; Z79.899 Other long term (current) drug therapy; Z63.4 Disappearance and death of family member
CPT/HCPCS: 71045; 80048; 84484; 85025; 93005; 99285

== ENCOUNTER 2023-10-12 15:58 | Emergency (ER) | payer MEDICARE, SELFPAY ==
[2023-10-12 16:00] VITALS: BP 146/66; PULSE 90; RESP 16; TEMP 36.4; O2SAT 96; BMI 32.5
[2023-10-12 16:21] VITALS: BP 119/69; PULSE 88; RESP 16; TEMP 36.2; O2SAT 97
--- NOTE | 2023-10-12 16:22 | EX.ED.DYSGE1 ---
HPI History of Present Illness Chief Complaint: Cold Sx Informant: patient, spouse/S.O., EMS and SNF Narrative Narrative: 83-year-old male presenting to the emergency department with fever. Patient states that on Sunday he developed sore throat and a cough. states he had 103 fever today. Reportedly was swabbed for strep and influenza and was negative. Patient states he is coughing up phlegm. He does not feel short of breath. He states he feels nauseated and generally weak. He notes a history of congestive heart failure, atrial fibrillation, coronary artery disease. The patient's paperwork that accompanies him list amoxicillin as a current medication but he does not know anything about that. There is no indication on the paperwork that tells me when it was started or for what reason. Patient states he feels thirsty. No diarrhea. No rashes. He notes generalized myalgias [facility] Medical History Ambulates with cane Arthritis Back pain Cancer Cardiology follow-up encounter CPAP (continuous positive airway pressure) dependence Diabetes Excessive bleeding Gastric reflux History of echocardiogram History of renal disease History of stress test Hypertension Non-smoker Restless legs Sleep apnea Wears dentures Home Medications apixaban 5 mg tablet (Eliquis) 5 mg PO BID BLOOD THINNER 05/18/16 [History Last Taken 01/29/22] atorvastatin 40 mg tablet 40 mg PO QHS CHOLESTEROL 05/18/16 [History Last Taken 01/31/22] cholecalciferol (vitamin D3) 25 mcg (1,000 unit) tablet (Vitamin D3) 1,000 unit PO DAILY SUPPLEMENT 05/18/16 [History Last Taken 01/27/22] pantoprazole 40 mg tablet,delayed release 40 mg PO DAILY GERD 05/18/16 [History Last Taken 01/31/22] nitroglycerin 0.4 mg sublingual tablet 0.4 mg sublingual Q5M PRN Chest Pain ##1 05/23/16 [Rx Last Taken 01/31/22] cyanocobalamin (vitamin B-12) 500 mcg tablet (B-12 DOTS) 1,000 mcg PO DAILY@0800 SUPPLEMENT 11/23/16 [History Last Taken 01/27/22] metoprolol succinate 25 mg tablet,extended release 24 hr 50 mg PO DAILY BP 06/24/17 [History Last Taken 01/31/22] sennosides 8.6 mg-docusate sodium 50 mg tablet (Stool Softener-Stimulant Laxative) 2 tab PO DAILY STOOL SOFTENER 06/24/17 [History Last Taken 01/31/22] losartan 50 mg tablet 50 mg PO DAILY BP 09/18/17 [History Last Taken 01/31/22] amlodipine 5 mg tablet 5 mg PO DAILY BP 01/18/22 [History Last Taken 01/31/22] dofetilide 250 mcg capsule 250 mcg PO Q12 HEART RATE 01/18/22 [History Last Taken 01/31/22] magnesium oxide 400 mg (241.3 mg magnesium) tablet 400 mg PO DAILYCM SUPPLEMENT 01/18/22 [History Last Taken 01/27/22] melatonin 3 mg tablet 3 mg PO QHS SLEEP 01/18/22 [History Last Taken 01/31/22] acetaminophen 500 mg tablet 1,000 mg (2 x 500 mg) PO Q8 14 days #84 tabs 02/02/22 [Rx Last Taken Unknown] tramadol 50 mg tablet 50 - 100 mg (1 - 2 x 50 mg) PO Q6H PRN PRN Pain Score 4-10 7 days #48 tabs 02/02/22 [Rx Last Taken Unknown] meclizine 25 mg tablet 25 mg PO BID PRN dizziness #20 tabs 08/08/22 [Rx Last Taken Unknown] molnupiravir 200 mg capsule (EUA) 800 mg (4 x 200 mg) PO Q12H 5 days #40 caps 10/12/23 [Rx Last Taken Unknown] Allergy/AdvReac Type Severity Reaction Status Date / Time adhesive tape Allergy Rash Verified 10/12/23 16:04 Latex, Natural Rubber Allergy Other Verified 10/12/23 16:04 codeine AdvReac Other Verified 10/12/23 16:04 hydrocodone bitartrate AdvReac Nausea Verified 10/12/23 16:04 [From Vicodin] meperidine HCl [From Demerol] AdvReac Other Verified 10/12/23 16:04 propoxyphene napsylate AdvReac Other Verified 10/12/23 16:04 [From Darvocet-N] Surgical History History of back surgery History of back surgery History of cardiac catheterization History of carpal tunnel release of both wrists History of coronary artery stent placement History of shoulder surgery Hx of neck surgery Hx of prior ablation treatment Hx of total hip arthroplasty Hx of total knee replacement Hx of total knee replacement Social History household members: spouse housing: house Smoking Status: Never smoker ROS ROS ED Constitutional Constitutional ED: Reports chills, fever(s) and sweats; Denies weight loss Eyes Eyes: Denies change in vision or diplopia ENT ENT ED: Reports sore throat; Denies ear pain or rhinorrhea Cardiovascular Cardiovascular: Denies chest pain, orthopnea, palpitations or racing heartbeat Respiratory/Chest Respiratory/Chest: Reports cough and sputum; Denies dyspnea or orthopnea Gastrointestinal Gastrointestinal: Reports nausea; Denies abdominal pain, diarrhea or vomiting Genitourinary Genitourinary ED: Denies dysuria, hematuria or urinary frequency Musculoskeletal Musculoskeletal: Reports myalgias; Denies arthralgias, back pain or neck pain Integumentary Denies abscess or rash Neurologic Neurologic: Denies headache(s) or weakness Psychiatric Psychiatric: Denies anxiety, depression, suicidal ideation or suicidal thoughts Endocrine Endocrinology: Denies polydipsia, polyphagia or polyuria Allergic/Immunologic Allergic/Immunologic ED: Denies mouth swelling, tongue swelling or urticaria EXAM Physical Exam Narrative Exam Narrative: The patient does not appear in any distress. He is laying back at a 45 degree angle. Const Vital Signs: 10/12/23 16:00 10/12/23 16:05 10/12/23 16:21 Temperature 97.6 F L 97.1 F L Temperature Source Oral Oral Pulse Rate 90 88 Respiratory Rate 16 16 Respiratory Pattern Normal Blood Pressure 146/66 H 119/69 Blood Pressure Mean 92 85 Pulse Ox 96 97 Oxygen Delivery Method Room Air Room Air 10/12/23 17:33 10/12/23 18:57 Temperature Temperature Source Pulse Rate 88 88 Respiratory Rate 16 18 Respiratory Pattern Blood Pressure 133/79 H 110/98 H Blood Pressure Mean 97 102 Pulse Ox 92 93 Oxygen Delivery Method Room Air Positive well nourished and well developed General Appearance ED: well developed HEENT Reports normocephalic, head/scalp atraumatic and moist mucous membranes HEENT Narrative: The patient has uvular edema. I do not appreciate any peritonsillar or retropharyngeal abscess. He appears to be handling secretions normally. No palatal petechiae. No exudates seen. Eyes PERRL and EOMs intact bilaterally Neck supple and no JVD Neck Narrative: There are few scattered small (less than 1 cm) tender anterior lymph nodes. Resp normal respiratory effort Auscultation: rhonchi throughout (Bilateral) Cardio regular rate, regular rhythm and no murmurs GI normal to inspection, nondistended, normoactive bowel sounds and non-tender Palpation: soft Back/Spine no CVA tenderness and normal ROM Extremity normal to inspection General Extremety ED: Negative for edema General Extremity: Negative for edema Neuro oriented x3 and CN's II-XII intact bilaterally Sensorium / Orientation: alert Motor Exam: strength 5/5 throughout Psych mental status grossly normal Mood & Affect: Negative for depressed or tearful Skin no rashes or lesions noted and no wounds MDM MDM MDM Narrative Medical decision making narrative: My independent interpretation of the chest x-ray is no acute process. White count 10.9 hemoglobin 15.3. Urinalysis 5-10 white cells rare bacteria negative nitrates. He is COVID-positive. Creatinine 1.50 BUN of 15. Lactic 1.4. Patient received 500 cc of normal saline. He also received Tylenol. He has been satting in the low 90s on room air. Breathing is unlabored. He received a small dose of Solu-Medrol for the uvulitis recognizing as discussed with family this may not help. Family is requesting COVID-19 antiviral. I will prescribe this and do think that is reasonable given his history. Patient to return if worsening or concerns. Lab Data Attestation: I reviewed the patient's lab results. Labs: Laboratory Results - last 24 hr 10/12/23 10/12/23 16:37 17:29 WBC 10.9 RBC 5.48 Hgb 15.3 Hct 46.8 MCV 85.4 MCH 27.9 MCHC 32.7 RDW Std Deviation 42.7 RDW Coeff of Nicholas 13.7 Plt Count 189 MPV 9.0 Immature Gran % (Auto) 0.500 Neut % (Auto) 84.4 H Lymph % (Auto) 5.0 L [place] % (Auto) 8.0 Eos % (Auto) 1.6 Baso % (Auto) 0.5 Absolute Neuts (auto) 9.2 H Absolute Lymphs (auto) 0.54 L Nucleated RBC % 0 Differential Comment SEE COMMENT Platelet Estimate ADEQUATE RBC Morphology NORM C+C PT 16.9 H INR 1.4 APTT 33.4 Sodium 132 L Potassium 4.1 Chloride 100 Carbon Dioxide 27.0 Anion Gap 5 BUN 15 Creatinine 1.50 H Estim Creat Clear Calc 34.89 Est GFR (MDRD) Af Amer 58 L Est GFR (MDRD) Non-Af 48 L BUN/Creatinine Ratio 10.0 Glucose 146 H Lactic Acid 1.4 Calcium 9.2 Total Bilirubin 1.20 H AST 13 L ALT 20 Alkaline Phosphatase 127 H Troponin I High Sens 14 B-Natriuretic Peptide 69.2 Total Protein 7.7 Albumin 3.6 Globulin 4.1 Albumin/Globulin Ratio 0.9 Urine Color Yellow Urine Clarity Clear Urine pH 6.0 Ur Specific [place] 1.015 Urine Protein 100 H Urine Glucose (UA) Normal Urine Ketones 5 H Urine Occult Blood 50 H Urine Nitrite Negative Urine Bilirubin Negative Urine Urobilinogen 1 H Ur Leukocyte Esterase 25 H Urine RBC 0 SEEN Urine WBC 5-10 SEEN Ur Squamous Epith Cells 0 SEEN Urine Bacteria RARE Urine Mucus 1+ Radiography Diagnostic Testing: Clinical Impression(s) from Imaging Studies Chest X-Ray 10/12/23 16:25 IMPRESSION: No acute cardiopulmonary pathology. Electronically Signed: Uri Pang MD at 16:44 EST Reading Location ID and State: [address] [place] [address] Tel , Service support , EKG Initial EKG: Attestation: I personally reviewed and interpreted this EKG as follows: Comments: Sinus rhythm with a first-degree AV block and a ventricular rate of 92 bpm. Discharge Plan Triage Chief Complaint: Cold Sx ED Provider: Vicente Davila Dx/Rx/DC Orders Clinical Impression: COVID-19, Uvulitis Instructions: ED Uvulitis Prescriptions: New molnupiravir 200 mg capsule 800 mg PO Q12H 5 Days Qty: 40 0RF No Action atorvastatin 40 MG tablet 40 mg PO QHS Patient Comments: Cholesterol pantoprazole 40 MG tablet 40 mg PO DAILY Patient Comments: Acid Refulx/Stomach Acid cholecalciferol (vitamin D3) [Vitamin D3] 1,000 UNIT tablet 1,000 unit PO DAILY Patient Comments: Supplement Eliquis 5 MG tablet 5 mg PO BID Patient Comments: STOP 48 HR PRIOR nitroglycerin 0.4 MG tablet 0.4 mg sublingual Q5M PRN (Reason: Chest Pain) Qty: 1 0RF Patient Comments: Chest pain Rx Instructions: Place one tab under tongue every 5 minutes x 3 doses as needed cyanocobalamin (vitamin B-12) [B-12 DOTS] 500 MCG tablet 1,000 mcg PO DAILY@0800 sennosides-docusate sodium [Stool Softener-Stimulant Laxat] 1 TABLET tablet 2 tab PO DAILY Patient Comments: CONSTIPATION metoprolol succinate 25 MG tablet 50 mg PO DAILY Patient Comments: HEART,BP losartan 50 MG tablet 50 mg PO DAILY dofetilide 250 MCG capsule 250 mcg PO Q12 Patient Comments: Heart rate/rhythm melatonin 3 MG tablet 3 mg PO QHS Patient Comments: Sleep amlodipine 5 MG tablet 5 mg PO DAILY magnesium oxide 400 MG tablet 400 mg PO DAILYCM Patient Comments: Supplement tramadol 50 mg Tablet 50 - 100 mg PO Q6H PRN PRN (Reason: Pain Score 4-10) 7 Days Qty: 48 0RF acetaminophen 500 mg Tablet 1,000 mg PO Q8 14 Days Qty: 84 0RF Rx Instructions: Do not take more than 3000 mg Tylenol in a 24-hour period. meclizine 25 mg tablet 25 mg PO BID PRN (Reason: dizziness) Qty: 20 0RF Primary Care Provider: Galindo Yuan Referrals: Galindo Yuan MD [Primary Care Provider] - As Needed Disposition Disposition: Home, Self Care
--- NOTE | 2023-10-12 16:25 | RAD_ITS ---
STUDY: X-RAY CHEST REASON FOR EXAM: Male, 83 years old. cough TECHNIQUE: AP portable COMPARISON: June 24, 2023. FINDINGS: The lungs are clear and expanded. There is no demonstrated pleural abnormality. Normal size heart. Normal mediastinum and savana. Normal visualized pulmonary arteries. Mildly calcified aortic arch and descending thoracic aorta. Dorsal spine demonstrates degenerative change. Normal visualized ribs, and clavicles. There are degenerative changes of the right shoulder and prosthesis on the left. Status post cervical fusion. There is no demonstrated abnormality of the visualized soft tissue structures of the upper abdomen. RAD/Chest 1 View (Portable) IMPRESSION: No acute cardiopulmonary pathology. Electronically Signed: Uri Pang MD at 16:44 EST ,
[2023-10-12] MEDS: Ondansetron 4 MG/2 ML Vial IV (16:33)
[2023-10-12 16:58] LABS: Absolute Lymphocyte Count 0.54 X10^3/uL (0.83-4.51); Absolute Neutrophil Count 9.2 X10^3/uL (2.0-7.7); Basophil# 0.05 X10^3/uL; Basophil% 0.5 % (0-1); Eosinophil# 0.17 X10^3/uL; Eosinophils% 1.6 % (0-5); Hematocrit 46.8 % (40-54); Hemoglobin 15.3 g/dL (13.0-16.5); Lymphocyte # 0.54 X10^3/ul (0.83-4.51); Mean Corp Hgb Conc 32.7 g/dL (32-36); Mean Corpuscular Hgb 27.9 pg (27.0-32.0); Mean Corpuscular Volume 85.4 fL (80-94); Monocyte# 0.87 X10^3/uL; NRBC Flagged by Analyzer 0 % (0-5); Neutrophil # 9.19 X10^3/uL (2.7-7.7); Neutrophil % 84.4 % (47-70); POSITIVE DIFFERENTIAL YES; Platelet Count 189 K/mm3 (150-450); RBC Distribution Width CV 13.7 % (11.6-14.6); RBC Distribution Width SD 42.7 fl (35.1-43.9); Red Blood Count 5.48 M/mm3 (4.6-6.2); White Blood Count 10.9 K/mm3 (4.4-11.0)
[2023-10-12 17:11] LABS: International Normalized Ratio 1.4; Prothrombin Time (Protime)PT. 16.9 SECONDS (11.7-14.9)
[2023-10-12 17:13] LABS: Partial Thromboplast Time 33.4 Seconds (24.1-36.2)
[2023-10-12 17:15] LABS: Lactic Acid 1.4 mmol/L (0.4-1.9)
[2023-10-12 17:16] LABS: ALB/GLOB Ratio 0.9 RATIO (0.9-2.4); AST(SGOT) 13 U/L (15-37); Alanine Aminotransfer ALT/SGPT 20 U/L (16-61); Albumin, Serum 3.6 g/dL (3.2-5.0); Alkaline Phosphatase 127 U/L (45-117); Anion Gap 5 (5-15); BUN 15 mg/dL (7-18); Calcium,Total 9.2 mg/dL (8.5-10.1); Chloride 100 mmol/L (98-107); EST Glomerular Filtration Rate 48 mL/min (>60); Est Glom Filt Rate - Afr Amer 58 mL/min (>60); Estimated Creatinine Clearance 34.89 ml/min; Globulin 4.1 g/dL (2.2-4.2); Glucose 146 mg/dL (74-106); Potassium 4.1 mmol/L (3.5-5.1); Protein, Total 7.7 g/dL (6.4-8.2); Sodium Level 132 mmol/L (136-145); Troponin-I HS 14 pg/mL (3.0-78.0)
[2023-10-12] MEDS: Acetaminophen 500 MG Tablet 1000 MG PO (17:21)
[2023-10-12 17:22] LABS: Differential Indicated SCAN CRITERIA MET
[2023-10-12 17:25] LABS: BNP,B-Type NATRIURETIC PEPTIDE 69.2 pg/mL (0-100); Platelet Estimate ADEQUATE (ADEQ); Red Cell Morphology NORM C+C NORMAL (NORM C&C)
[2023-10-12 17:33] VITALS: BP 133/79; PULSE 88; RESP 16; O2SAT 92
[2023-10-12 17:39] LABS: Red Blood Cells-Urine 0 SEEN /hpf (0-5); Squamous Epithelial Cells - UA 0 SEEN /hpf (0-5)
[2023-10-12 17:50] LABS: Color, Urine Yellow (Yellow); Glucose, Dipstick Normal (Normal); Ketone-Dipstick 5 mg/dl (Negative); Leukocyte Esterase-Dipstick 25 /ul (Negative); Nitrite-Dipstick Negative (Negative); Occult Blood-Urine 50 /ul (Negative); Protein-Dipstick 100 mg/dl (Negative); Specific Gravity, Urine 1.015 (1.002-1.030); Urine Bilirubin Dipstick Negative (Negative); Urine Clarity Clear (Clear); Urine Urobilinogen 1 mg/dl (Normal)
[2023-10-12] MEDS: 0.9% Normal Saline (500mL Bag) 500 ML 999 ML IV (17:55)
[2023-10-12 18:01] LABS: White Blood Cells 5-10 SEEN /hpf (0-5)
[2023-10-12 18:02] LABS: Bacteria RARE /hpf (None Seen); Mucous, Urine 1+ /hpf (<or=2+)
[2023-10-12] MEDS: MethylPREDNISolone 125 MG/2 ML Vial 60 MG IV (18:03)
[2023-10-12 18:57] VITALS: BP 110/98; PULSE 88; RESP 18; O2SAT 93
== END 2023-10-12 19:29 | disposition home or self-care (01) ==
PROVIDERS: Emergency Provider Emergency Medicine; PCP Internal Medicine; Visit Provider Emergency Medicine
DX: U07.1 COVID-19 (principal); I50.9 Heart failure, unspecified; E11.9 Type 2 diabetes mellitus without complications; K12.2 Cellulitis and abscess of mouth; I25.10 Atherosclerotic heart disease of native coronary artery without angina pectoris; G47.30 Sleep apnea, unspecified
CPT/HCPCS: 71045; 80053; 81001; 83605; 83880; 84484; 85025; 85610; 85730; 87040; 87086; 87428; 93005; 96361; 96374; 96375; 99284; J7030; A4216; J2405

== ENCOUNTER 2025-10-11 14:37 | Inpatient (IN) | payer MEDICARE, SELFPAY ==
[2025-10-11] VITALS (13 sets, daily range): BP systolic 111–183; BP diastolic 66–97; PULSE 58–75; RESP 12–25; TEMP 36.6–36.7; O2SAT 96–98; BMI 31.9; BMI 32.4
--- NOTE | 2025-10-11 14:52 | EKG12_ITS ---
Test Reason : cp Blood Pressure : */* mmHG Vent. Rate : 70 BPM Atrial Rate : 70 BPM P-R Int : 284 ms QRS Dur : 84 ms QT Int : 414 ms P-R-T Axes : 77 38 11 degrees QTcB Int : 447 ms Sinus rhythm with 1st degree A-V block Otherwise normal ECG Confirmed by JENNA LORD, WALTER ([id number]), development editor RAJENDRA ROGERS ([id number]) on 10/12/2025 1:06:16 PM Referred By: Yasmin Confirmed By: WALTER WEST MD
[2025-10-11 15:09] LABS: Hematocrit 42.5 % (40-54); Hemoglobin 14.1 g/dL (13.0-16.5); Immature Granulocytes Count 0.020 X10^3/uL (0.0-0.0); Mean Corp Hgb Conc 33.2 g/dL (32-36); Mean Corpuscular Volume 86.2 fL (80-94); Mean Platelet Vol. 9.6 fl (6.2-12.0); NRBC Flagged by Analyzer 0 % (0-5); Platelet Count 222 K/mm3 (150-450); RBC Distribution Width CV 14.1 % (11.6-14.6); RBC Distribution Width SD 44.5 fl (35.1-43.9); Red Blood Count 4.93 M/mm3 (4.6-6.2); White Blood Count 6.6 K/mm3 (4.4-11.0)
--- NOTE | 2025-10-11 15:16 | RAD_ITS ---
PROCEDURE: CHEST 1 VIEW (PORTABLE) 10/11/2025 REASON FOR EXAM: CHEST PAIN TECHNIQUE: Frontal view of the chest. COMPARISON: 10/12/23 FINDINGS: No focal consolidation. No pleural effusion or pneumothorax. Cardiac silhouette is within normal limits. No acute fractures. Cervical ACDF or left shoulder prosthesis. RAD/Chest 1 View (Portable) IMPRESSION: No focal consolidations. Reading Location: [id number]
--- NOTE | 2025-10-11 15:20 | ED.VIS.CHEST ---
HPI History of Present Illness Chief Complaint: Chest Pain Detail of Chief Complaint: Intermittent chest pressure burning past 4 days. Informant: patient and spouse/S.O. Onset/Context/Timing Onset: Days Activity at onset: sudden and rest Timing: Intermittent Quality: Positive for Aching and Pressure Location: Left Chest (With radiation to the left upper extremity. Yesterday it radiated to the jaw prior to going to the left upper extremity.) Current Severity: Mild Maximum Severity: Moderate Worsened By: Exertion; Not Worsened By Movement of Arm, Movement of Torso, Eating, Palpation or Breathing Relieved By: NTG (For approximately 15 to 30 minutes.) Associated Symptoms: Positive for Dyspnea; Negative for Nausea, Vomiting, Diaphoresis, Cough, Fever, Lightheadedness, Acid Reflux or Palpitations Narrative Narrative: Patient is a 85-year-old male. He has known coronary disease. He has 5 stents. First episode of chest discomfort was 4 days ago. This occurred at rest. Associated with shortness of breath and radiation to his left upper extremity. He did take nitro with temporary relief. He did not take any additional nitroglycerin. He had a chest pressure heaviness on Sunday as well. This occurred at rest. He did have radiation to the extremity. He took nitroglycerin with temporary relief. Yesterday he had chest discomfort with radiation again and dyspnea. He did not take nitro. This episode started at 2:30 in the morning. He took 1 nitro at 1:30 PM. He had transient relief again. When asked why he did not come in sooner and he states he does not like to come to the hospital. When asked why he did not take more nitroglycerin he states he does not like taking nitroglycerin because it gives him a headache. He denies history of peptic ulcers, hiatal hernia or reflux. He denies any respiratory infectious symptoms. He has no history of VTE. Denies leg pain, swelling discoloration. He denies orthopnea, PND or pedal edema. He denies symptoms of claudication. Prior Similar Symptoms: Yes and With Prior Angina CVD Risk Factors: Positive for Hypertension and Hypercholesterolemia; Negative for Diabetes PE Risk Factors: Negative for Recent Travel/Surgery, Recent Immobilization, Prior DVT or PE, Cancer or OCP + Smoking + >/=35 TAD Risk Factors: Positive for Hypertension; Negative for Marfan's Syndrome or Family History [facility] Medical History Wears dentures Cancer Diabetes Ambulates with cane Arthritis History of renal disease Excessive bleeding Restless legs Back pain Gastric reflux Non-smoker CPAP (continuous positive airway pressure) dependence Sleep apnea Hypertension Cardiology follow-up encounter History of stress test History of echocardiogram Home Medications ?Medication ?Instructions ?Recorded ?Last Taken ?Type apixaban 5 mg tablet (Eliquis) 5 mg PO BID BLOOD THINNER 05/18/16 01/29/22 History atorvastatin 40 mg tablet 40 mg PO QHS CHOLESTEROL 05/18/16 01/31/22 History cholecalciferol (vitamin D3) 25 1,000 unit PO DAILY SUPPLEMENT 05/18/16 01/27/22 History mcg (1,000 unit) tablet (Vitamin D3) pantoprazole 40 mg tablet,delayed 40 mg PO DAILY GERD 05/18/16 01/31/22 History release nitroglycerin 0.4 mg sublingual 0.4 mg sublingual Q5M PRN Chest 05/23/16 01/31/22 Rx tablet Pain ##1 cyanocobalamin (vitamin B-12) 500 1,000 mcg PO DAILY@0800 SUPPLEMENT 11/23/16 01/27/22 History mcg tablet (B-12 DOTS) metoprolol succinate 25 mg 50 mg PO DAILY BP 06/24/17 01/31/22 History tablet,extended release 24 hr sennosides 8.6 mg-docusate sodium 2 tab PO DAILY STOOL SOFTENER 06/24/17 01/31/22 History 50 mg tablet (Stool Softener-Stimulant Laxative) losartan 50 mg tablet 50 mg PO DAILY BP 09/18/17 01/31/22 History amlodipine 5 mg tablet 2.5 mg PO DAILY BP 01/18/22 01/31/22 History dofetilide 250 mcg capsule 250 mcg PO Q12 HEART RATE 01/18/22 01/31/22 History magnesium oxide 400 mg (241.3 mg 400 mg PO DAILYCM SUPPLEMENT 01/18/22 01/27/22 History magnesium) tablet melatonin 3 mg tablet 3 mg PO QHS SLEEP 01/18/22 01/31/22 History meclizine 25 mg tablet 25 mg PO BID PRN dizziness #20 tabs 08/08/22 Unknown Rx Allergy/AdvReac Type Severity Reaction Status Date / Time adhesive tape Allergy Rash Verified 10/11/25 14:39 Latex, Natural Rubber Allergy Other Verified 10/11/25 14:39 codeine AdvReac Other Verified 10/11/25 14:39 hydrocodone bitartrate (From AdvReac Nausea Verified 10/11/25 14:39 Vicodin) meperidine HCl (From Demerol) AdvReac Other Verified 10/11/25 14:39 propoxyphene napsylate (From AdvReac Other Verified 10/11/25 14:39 Darvocet-N) Surgical History History of cardiac catheterization Hx of total hip arthroplasty History of back surgery Hx of prior ablation treatment History of coronary artery stent placement History of back surgery Hx of neck surgery History of shoulder surgery Hx of total knee replacement History of carpal tunnel release of both wrists Hx of total knee replacement Social History household members: spouse housing: house Smoking Status: Never smoker ROS ROS ED Constitutional Constitutional ED: Denies chills, fever(s), subjective or sweats Eyes Eyes: Reports none ENT ENT ED: Denies ear pain, rhinorrhea or sore throat Cardiovascular Cardiovascular: Reports as per HPI; Denies orthopnea or paroxysmal nocturnal dyspnea Respiratory/Chest Respiratory/Chest: Reports dyspnea; Denies cough, dyspnea on exertion, orthopnea or paroxysmal nocturnal dyspnea Gastrointestinal Gastrointestinal: Denies abdominal pain, constipation, nausea or vomiting Musculoskeletal Musculoskeletal: Denies arthralgias, back pain, myalgias or neck pain Integumentary Denies abscess, Abrasions or rash Neurologic Neurologic: Denies headache(s), paresthesias or weakness Hematologic/Lymphatic Hematologic/Lymphatic: Denies easy bleeding or easy bruising EXAM Physical Exam Const Vital Signs: 10/11/25 14:39 10/11/25 17:08 Temperature 97.9 F Temperature Source Temporal Pulse Rate 75 70 Respiratory Rate 18 Blood Pressure 160/76 H 183/76 H Blood Pressure Mean 104 111 Pulse Ox 97 Oxygen Delivery Method Room Air Positive well nourished, well developed and obese General Appearance ED: well developed and NAD; Negative for pallor Nutritional Appearance: obese HEENT Reports moist mucous membranes normocephalic and atraumatic Eyes EOMs intact bilaterally General Eye ED: Negative for pale conjunctiva or scleral icterus Neck no lymphadenopathy, supple and no JVD Neck Narrative: Trachea is midline. Resp normal respiratory effort and clear to auscultation bilaterally Cardio regular rate, regular rhythm, S1 normal heart sound, S2 normal heart sound and no murmurs GI normal to inspection, nondistended, normoactive bowel sounds, soft to palpation, non-tender, non-distended and no masses Extremity normal to inspection General Extremety ED: Negative for edema or pulses abnormal General Extremity: Negative for edema or pulses abnormal Neuro oriented x3 and CN's II-XII intact bilaterally Neuro Narrative: He moves all extremities. There is no evidence of neurovasc compromise. Sensorium / Orientation: awake Psych mental status grossly normal Skin no rashes or lesions noted and no wounds General Skin Exam: Negative for jaundice or pallor MDM MDM MDM Narrative Medical decision making narrative: Differential diagnosis is cardiac chest pain versus noncardiac. Based on patient's history, past medical history and the fact that he gets improvement with nitroglycerin and worse with walking suspect this is cardiac. Noncardiac would include reflux, peptic ulcer disease, hiatal hernia, pulmonary. History physicals not consistent with pulmonary embolus. Nurse protocol was initiated. Lab Data Attestation: I reviewed the patient's lab results. Lab results narrative: CBC is unremarkable. Basic metabolic panel reveals mild renal insufficiency with a creatinine of 1.28 and estimated GFR 55. Glucose is slightly elevated 112. Troponin slightly elevated at 40. Labs: Laboratory Results - last 24 hr 10/11/25 10/11/25 14:59 17:20 WBC 6.6 RBC 4.93 Hgb 14.1 Hct 42.5 MCV 86.2 MCH 28.6 MCHC 33.2 RDW Std Deviation 44.5 H RDW Coeff of Nicholas 14.1 Plt Count 222 MPV 9.6 Immature Gran % (Auto) 0.300 Neut % (Auto) 63.1 Lymph % (Auto) 25.3 [place] % (Auto) 8.5 Eos % (Auto) 1.7 Baso % (Auto) 1.1 H Absolute Neuts (auto) 4.1 Absolute Lymphs (auto) 1.66 Nucleated RBC % 0 PT 16.2 H INR 1.3 APTT 32.6 Sodium 139 Potassium 3.9 Chloride 103 Carbon Dioxide 23.0 Anion Gap 13 BUN 19 Creatinine 1.28 H Estim Creat Clear Calc 47.57 L Est GFR (MDRD) Non-Af 55 L BUN/Creatinine Ratio 14.5 Glucose 112 H Hemoglobin A1c 6.0 H Calcium 9.3 Troponin T High Sens 40 H Troponin T Hi Sens 2 Hr 37 H Radiography Diagnostic Testing: Clinical Impression(s) from Imaging Studies Chest X-Ray 10/11/25 15:16 IMPRESSION: No focal consolidations. Reading Location: [facility] EKG Initial EKG: Attestation: I personally reviewed and interpreted this EKG as follows: Interpretation: Sinus Rhythm (Rate is 70. EKG reveals a first-degree AV block otherwise normal. The MI interval is 294 ms. QRS duration 84 ms. QT duration 114 ms. Doland is normal. There are no acute ischemic changes noted.) Treatment and Re-Evaluation :: Patient with acute coronary syndrome. In light of his history, past medical history, he was started on nitro drip since he was still having pain and heparin drip. Will contact hospitalist for admission. [employer] Therapist was not contacted since he does not require emergent intervention. Critical Care Time Critical Care Time: Yes Critical care time (excluding procedures): 30-74 minutes (39), Including time spent: (History, physical, documentation, interpretation laboratory results, EKG, initiation of treatment for acute coronary syndrome with heparin drip and nitro drip since he was having continuous pain.), Discussing w/Patient &/or Family/Strike Operations Officer (Patient and were informed why he was receiving the medicine and need for admission.), Discussing w/Consultants and Arranging Admission or Transfer Discharge Plan Dx/Rx/DC Orders Clinical Impression: ACS (acute coronary syndrome), ETHAN (obstructive sleep apnea), HTN (hypertension), Elevated serum creatinine, Glucose intolerance (pre-diabetes) Disposition Disposition: [facility] Discharge Date/Time: 10/11/25 18:09
[2025-10-11 15:27] LABS: Anion Gap 13 (5-15); BUN 19 mg/dL (4-19); BUN/Creat Ratio 14.5 RATIO (10-20); Calcium,Total 9.3 mg/dL (7.6-11.0); Carbon Dioxide 23.0 mmol/L (21.0-32.0); Chloride 103 mmol/L (98-108); Estimated Creatinine Clearance 47.57 ml/min (50-250); Glucose 112 mg/dL (70-99); Potassium 3.9 mmol/L (3.3-5.1); Troponin T High Sensitivity 40 ng/L (<=22)
--- OUTSIDE RECORDS SUMMARY | 2025-10-11 16:04 | XMS RPT_ITS | CCD ---
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, Kemi Unavailable Galindo Yuan MD Primary Care Provider Sakshi Sanz MD Unavailable Un available Galindo Yuan MD Primary Care Provider [phone] Jonathan Sanz MDine Unavailable Un available Galindo Yuan MD Primary Care Provider Kacy Nunez MD, Sakshi Unavailable Un available Kacy Nunez MD, Sakshi Unavailable Un available Galindo Yuan Primary Care Unavailable Gwendolyn Lopes Attending Unavailable Galindo Yuan Primary Care Unavailable Koffi Rome Attending Unavailable Galindo Yuan Primary Care Unavailable Vicente Davila Attending Unavailable Galindo Yuan MD Primary Care Provider BLANCO HERNANDEZ Attending Unavailable GALINDO YUAN Primary Care Unavailable Ean UNIVERSITY TUTORDION, Ana Fournier Unavailable RENAN BOWLING Admitting Unavailable RENAN BOWLING Attending Unavailable GALINDO YUAN Primary Care Unavailable RENAN BOWLING Admitting Unavailable RENAN BOWLING Attending Unavailable GALINDO YUAN Primary Care Unavailable Galindo Yuan MD Primary Care Provider ODIN OCHOA Attending Unavailable GALINDO YUAN Primary Care Unavailable ODIN OCHOA Admitting Unavailable ODIN OCHOA Attending Unavailable YUAN, GALINDO JESSICA Primary Care Unavailable YUAN, GALINDO JESSICA Primary Care Unavailable RENAN BOWLING Attending Unavailable YUAN, GALINDO Sam Primary Care Unavailable RENAN BOWLING Referring Unavailable YUAN, GALINDO Sam Primary Care Unavailable YUAN, GALINDO Sam Primary Care Unavailable YUAN, GALINDO Sam Referring Unavailable YUAN, GALINDO Sam Primary Care Unavailable ANURAG BAH Referring Unavailable RENAN BOWLING Referring Unavailable YUAN, GALINDO Sam Primary Care Unavailable YUAN, GLAINDO Sam Primary Care Unavailable YUAN, GALINDO Sam Attending Unavailable YUAN, GALINDO Sam Primary Care Unavailable TESTALEX, JUAN Referring Unavailable TESTALEX, JUAN Attending Unavailable YUAN, GALINDO Sam Primary Care Unavailable ATIF GRUBBS Attending Unavailable MIRYAM HENSON Referring Unavailable YUAN, GALINDO Sam Primary Care Unavailable ANURAG BAH Attending Unavailable YUAN, GALINDO Sam Primary Care Unavailable YUAN, GALINDO Sam Attending Unavailable YUAN, GALINDO Sam Attending Unavailable YUAN, GALINDO Sam Primary Care Unavailable RENAN BOWLING Attending Unavailable YUAN, GALINDO Sam Primary Care Unavailable YUAN, GALINDO Sam Primary Care Unavailable YUAN, GALINDO Sam Referring Unavailable YUAN, GALINDO Sam Primary Care Unavailable YUAN, GALINDO Sam Referring Unavailable YUAN, GALINDO Sam Primary Care Unavailable RASHAUN MANNING JR Attending Unavailable RENAN BOWLING Referring Unavailable YUAN, GALINDO Sam Primary Care Unavailable YUAN, GALINDO Sam Primary Care Unavailable RUTH PERLA Attending Unavailable YUAN, GALINDO Sam Primary Care Unavailable RUTH PERLA Attending Unavailable YUAN, GALINDO Sam Primary Care Unavailable TESTALEX, JUAN Attending Unavailable TESTALEX, JUAN Referring Unavailable YUAN, AGLINDO Sam Primary Care Unavailable TESTALEX, JUAN Referring Unavailable TESTALEX, JUAN Attending Unavailable YUAN, GALINDO Sam Primary Care Unavailable DIANE BRUCE Referring Unavailable YUAN, GALINDO Sam Primary Care Unavailable YUAN, GALINDO Sam Attending Unavailable YUAN, GALINDO Sam Primary Care Unavailable YUAN, GALINDO Sam Primary Care Unavailable YUAN, GALINDO Sam Referring Unavailable ULISSES FOX Attending Unavailable GALINDO YUAN Primary Care Unavailable JUAN TORRES Referring Unavailable JUAN TORRES Attending Unavailable Allergies Allergy Classification Reported Allergen(s) Allergy Type Date of Onset Reaction(s) Facility (20 sources) Adhesive agent; Translations: [ADHESIVE] Propensity to adverse reactions (disorder) 12-07-19 12 [facility] Repository (20 sources) codeine; Translations: [CODEINE] Drug Allergy 07-18-20 05 Palpitations [facility] Repository (20 sources) Latex; Translations: [LATEX] Propensity to adverse reactions (disorder) 08-24-20 12 [facility] Repository (20 sources) meperidine; Translations: [MEPERIDINE HCL] Drug Allergy 08-27-20 09 Unknown [facility] Repository (20 sources) PROPOXYPHENE N-ACETAMINOPHEN; Translations: [PROPOXYPHENE N-ACETAMINOPHEN] Propensity to adverse reactions (disorder) 07-16-20 Intolerance, Itching, Palpitations [facility] Repository (1 source) Acetaminophen / Propoxyphene Drug Allergy 03-17-20 19 tachycardia [facility] Work Phone: (1 source) Adhesive Tape; Translations: [TAPE] allergy to substance 03-17-20 [address] [facility] Work Phone: (1 source) Codeine Drug Allergy 03-17-20 19 tachycardia [facility] Work Phone: (1 source) Morphine Drug Allergy 03-17-20 19 vomiting [facility] Work Phone: (1 source) traMADol Drug Allergy 03-20-20 19 [facility] Work Phone: (5 sources) Adhesive Tape; Translations: [adhesive tape] Allergy to substance 08-08-20 Rash [facility] (5 sources) HYDROcodone; Translations: [hydrocodone bitartrate] Drug Allergy 08-08-20 22 Nausea [facility] (2 sources) Morphine Drug Allergy 08-08-20 Vomiting [facility] (4 sources) natural latex rubber Allergy to substance 08-08-20 Other [facility] (5 sources) Propoxyphene; Translations: [propoxyphene napsylate] Drug Allergy 08-08-20 Other [facility] (1 source) Morphine Drug Allergy 01-28-20 23 [facility] Repository (1 source) natural latex rubber Drug allergy (disorder) 10-12-20 [facility] Repository (2 sources) NSAIDs; Translations: [NSAIDS (NON-STEROIDAL ANTI-INFLAMMATORY DRUG)] Propensity to adverse reactions to drug (disorder) 03-16-20 Cardiac arrhythmia/arre st [facility] (1 source) ALLERGIES NOT ON FILE; Translations: [ALLERGIES NOT ON FILE] Propensity to adverse reactions (disorder) [facility] Medications Current Medications Medication Drug Class(es) Dates Sig (Normalized) Sig (Original) acetaminophen 500 mg oral tablet (4 sources) Start: 02-02-2022 take 3000 mg by mouth every eight hours Acetaminophen Active 1000 MG PO EVERY 8 HOURS 84 February 01, 2022 11:00pm Do not take more than 3000 mg Tylenol in a 24-hour period. amLODIPine 2.5 mg oral tablet (20 sources) Dihydropyridine Calcium Channel Rebeca Start: 07-19-2023 End: 12-10-2024 take 1 tablet by mouth once daily amLODIPine (NORVASC) 2.5 mg tablet Indications: Essential hypertension Take 1 tablet by mouth once daily. 90 tablet 3 12/10/2024 Active Start: 04-30-2018 End: 07-19-2023 take 5 mg by mouth once daily Amlodipine Active 5 MG P O DAILY January 18, 2022 11:26am Comment on above: Take 1 tablet by jennifer once daily. amoxicillin 500 mg oral tablet (20 sources) Penicillin-class Antibacterial Start: 09-29-20 21 Amoxicillin 500 mg tablet Take 4 tablets by mouth as needed (1 hour before the procedure). 4 tablet 09/29/2021 Active Comment on above: Take 4 tablets by mo [facility] as needed (1 hour before the procedure). apixaban 5 mg oral tablet (20 sources) Factor Xa Inhibitor Start: 05-18-20 16 End: 12-23-19 25 take 1 tablet by mouth twice daily apixaban (ELIQUIS) 5 mg tab(s) Indications: Paroxysmal atrial fibrillation (HCC) Take 1 tablet by mouth two times a day. 60 tablet 11 12/23/2024 Active Comment on above: Take 1 tablet by jennifer twice daily. Take 1 tablet by jennifer th two times a day. atorvastatin 40 mg oral tablet (20 sources) HMG-CoA Reductase Inhibitor Start: 05-18-20 16 End: 09-10-20 24 take 1 tablet by mouth once daily atorvastatin (LIPITOR) 40 mg tablet Take 1 tablet by mouth once daily. 90 tablet 3 09/10/2024 Active Comment on above: Take 1 tablet by jennifer once daily. b complex 0.4 mg tablet (1 source) take 1 tablet by mouth once daily b complex 0.4 mg tablet Take 1 tablet by mouth once daily. Active baclofen 10 mg oral tablet (20 sources) gamma-Aminobutyric Acid-ergic Agonist Start: 12-24-19 25 take 1 tablet by mouth at bedtime as needed baclofen 10 mg tablet Indications: Nocturnal leg cramps Take 1 tablet by mouth at bedtime as needed (leg cramps.). 30 tablet 12/24/2024 Active Start: 02-12-2023 End: 03-14-2023 take 1 tablet by mouth once daily baclofen (LIORESAL) 10 mg tablet Take 1 tablet by mouth once daily. 30 tablet 0 02/12/2023 03/14/2023 Comment on above: Take 1 tablet by jennifer once daily. betamethasone 0.5 mg/ml / clotrimazole 10 mg/ml topical cream (20 sources) Azole Antifungal, Corticosteroid Start: 08-15-2023 clotrimazole-betamet hasone (LOTRISONE) cream Apply to affected area twice daily. APPLY TO AFFECTED AREA 45 g 2 08/15/2023 Active Start: 08-15-2023 clotrimazole-b etamethasone (Lotrisone) cream Apply 1 Application topically 2 times a day. 08/15/2023 Active Comment on above: Apply to affected ar ea twice daily. 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 check blood sugars one time daily Freestyle LITE Meter Kit - Dx: Type 2 DM - Controlled E11.9 cholecalciferol 0.025 mg oral tablet (20 sources) Vitamin D Start: 05-18-20 take 1 tablet by mouth once daily Cholecalciferol (Vitamin D3) (Vitamin D3) 1,000 UNIT tablet Active 1000 UNIT PO DAILY May 17, 2016 11:00pm Start: 10-14-2013 take 1 capsule by mo [facility] once daily Cholecalciferol, Vitamin D3, 1,000 unit cap Take 1 capsule by mouth once daily. 0 10/14/2013 Active take 1 tablet by jennifer once daily cholecalciferol (Vitamin D3) 25 mcg (1,000 units) tablet Take 1 tablet (25 mcg) by mouth once daily. Active Comment on above: Take 1 capsule by mo [facility] once daily. ciclopirox 7.7 mg/ml topical cream (2 sources) Start: 06-16-2025 End: 07-16-2025 ciclopirox (LOPROX) 0.77 % cream Indications: Tinea pedis of left foot Apply 1 application to affected area once daily. 90 g 3 06/16/2025 07/16/2025 Active CPAP (20 sources) Start: 05-01-2022 CPAP Indications: ETHAN on CPAP Patient requesting new DME. Currently has a PAP device (2015 -- may be due for new device). Please fit with a Wisp (currently with Dream wisp and causing discomfort on top of head). Lifetime supplies. 1 Each 9999 05/01/2022 Active Comment on above: Patient requesting n ew DME. Currently has a PAP device (2016 -- may be due for new device). Please fit with a Wisp (currently with Dream wisp and causing discomfort on top of head). Lifetime supplies. docusate sodium 100 mg oral capsule (20 sources) Start: 11-25-2015 docusate sodium (COLACE) 100 mg capsule AT BEDTIME 11/25/2015 Active Comment on above: AT BEDTIME docusate sodium 50 mg / sennosides, detention 8.6 mg oral tablet (8 sources) Start: 06-24-2017 Sennosides-Docusate Sodium (Stool Softener-Stimulant Laxat) 1 TABLET tablet Active 2 TABLET PO DAILY June 24, 2017 6:18am Start: 08-10-2016 End: 06-24-2017 Sennosides-Docusate Sodium ( Stool Softener-Stimulant Laxat) 1 TABLET tablet Discontinued 2 TABLET PO TWICE A DAY August 09, 2016 11:00pm June 24, 2017 6:18am dofetilide 0.25 mg oral capsule (20 sources) Antiarrhythmic Start: 12-05-2023 End: 11-25-2024 take 1 capsule by mouth twice daily dofetilide (TIKOSYN) 250 mcg capsule Indications: Paroxysmal atrial fibrillation (HCC) Take 1 capsule by mouth two times a day. 180 capsule 3 11/26/2024 Active Start: 11-07-2021 End: 12-04-2022 take 1 capsule by mouth twice daily dofetilide (TIKOSYN) 250 mcg capsule Indications: Paroxysmal atrial fibrillation (HCC) Take 1 capsule by mouth twice daily. 180 capsule 3 12/04/2022 Active Start: 03-17-2019 TIKOSYN 250 MC G CAPS 1 capsule daily DOFETILIDE [id number] Kelli Fitzpatrick LPN Start: 05-19-2016 End: 01-18-2022 take 250 ug by mouth every twelve hours Dofetilide Active 250 MCG PO EVERY 12 HOURS January 18, 2022 11:26am Comment on above: Take 1 capsule by mo uth twice daily. Take 1 capsule by mo uth two times a day. doxycycline hyclate 100 mg oral tablet (2 sources) Tetracycline-class Drug Start: End: take 1 tablet by mouth twice daily doxycycline (VIBRA-TABS) 100 mg tablet Indications: Epididymitis Take 1 tablet by mouth two times a day for 5 days. 10 tablet 12/05/2024 12/10/2024 Active losartan potassium 50 mg oral tablet (20 sources) Angiotensin 2 Receptor Rebeca Start: 7 End: 5 take 1 tablet by mouth once daily losartan (COZAAR) 50 mg tablet Indications: Essential hypertension Take 1 tablet by mouth once daily. 90 tablet 3 12/23/2024 Active Start: 06-25-2017 End: 09-18-2017 take 50 mg by mouth twice daily Losartan Discontinued 50 MG PO TWICE A DAY June 24, 2017 11:00pm September 18, 2017 8:52am Start: 05-18-2016 End: 06-25-2017 take 50 mg by mouth once daily Losartan Discontinued 5 0 MG PO DAILY May 17, 2016 11:00pm June 25, 2017 9:41am Comment on above: Take 1 tablet by jennifer th once daily. magnesium oxide 400 mg oral tablet (20 sources) Start: 6 End: 2 take 1 tablet by mouth once daily magnesium oxide (MAG-OX) 400 mg tablet Indications: Paroxysmal atrial fibrillation (HCC) Take 1 tablet by mouth once daily. 90 tablet 3 08/21/2016 Active Comment on above: Take 1 tablet by jennifer th once daily. meclizine hydrochloride 25 mg oral tablet (4 sources) Antiemetic Start: 2 take 25 mg by mouth twice daily Meclizine Active 25 MG PO TWICE A DAY August 07, 2022 11:00pm melatonin 3 mg oral tablet (20 sources) Start: 6 End: 3 take 1 tablet by mouth once daily at bedtime melatonin 3 mg tablet Indications: Other insomnia Take 1 tablet by mouth daily at bedtime. 90 tablet 3 01/05/2023 Active take 1 capsule by mo uth once daily at bedtime melatonin 3 mg capsule Take 3 mg by mout h once daily at bedtime. Active Comment on above: Take 1 tablet by jennifer th daily at bedtime. 24 hr metoprolol succinate 25 mg extended release oral tablet (20 sources) beta-Adrenergic Rebeca Start: 12-23-2024 take 1 tablet by mouth once daily metoprolol succinate ER (TOPROL XL) 25 mg 24 hr tablet Indications: Paroxysmal atrial fibrillation (HCC) Take 1 tablet by mouth once daily. 90 tablet 3 12/23/2024 Active Start: 06-24-2017 End: 12-23-2024 take 1 tablet by mouth once daily metoprolol succinate ER (TOPROL XL) 25 mg 24 hr tablet Indications: Paroxysmal atrial fibrillation (HCC) Take 1 tablet by mouth once daily. 90 tablet 3 12/23/2024 Active Start: 06-24-2017 End: 11-16-2022 take 1 tablet by mouth once daily, then take 0.5 tablet by mouth once daily metoprolol succinate ER (TOPROL XL) 25 mg 24 hr tablet Indications: Paroxysmal atrial fibrillation (HCC) Take 1 tablet by mouth once daily. TAKE ONE-HALF TABLET BY MOUTH ONCE DAILY 90 tablet 3 12/21/2022 Active Start: 11-24-2016 End: 06-24-2017 take 12.5 mg by mouth twice daily Metoprolol Tartrate Discontinued 12.5 MG PO TWICE A DAY November 24, 2016 12:00am June 24, 2017 6:18am Comment on above: TAKE ONE-HALF TABLET BY MOUTH ONCE DAILY Take 1 tablet by jennifer th once daily. TAKE ONE-HALF TABLET BY MOUTH ONCE DAILY Take 1 tablet by jennifer th once daily. Molnupiravir (1 source) Start: take 800 mg by mouth every twelve hours Molnupiravir Active 800 MG PO Q12H 40 October 12, 2023 12:00am nitroglycerin 0.4 mg sublingual tablet (20 sources) Nitrate Vasodilator Start: 016 End: nitroglycerin sublingual (NITROSTAT) 0.4 mg SL tablet Indications: Coronary artery disease of [place] artery of [place] heart with stable angina pectoris Dissolve 1 tablet under the tongue every 5 minutes as needed for chest pain. 26 tablet 2 03/23/2025 Active Comment on above: Dissolve 1 tablet un diana the tongue every 5 minutes as needed for chest pain. pantoprazole 40 mg delayed release oral tablet (20 sources) Proton Pump Inhibitor Start: 024 End: take 1 tablet by mouth once daily before breakfast pantoprazole DR (PROTONIX) 40 mg tablet Indications: Gastroesophageal reflux disease without esophagitis TAKE ONE TABLET BY MOUTH DAILY ON EMPTY STOMACH ONE-HALF HOUR BEFORE BREAKFAST 90 tablet 3 11/26/2024 Active Start: 05-18-2016 End: 12-04-2022 take 1 tablet by mouth once daily before breakfast pantoprazole DR (PROTONIX) 40 mg tablet Indications: Gastroesophageal reflux disease without esophagitis TAKE ONE TABLET BY MOUTH DAILY ON EMPTY STOMACH ONE-HALF HOUR BEFORE BREAKFAST 90 tablet 3 12/04/2022 Active Comment on above: TAKE ONE TABLET BY M OUTH DAILY ON EMPTY STOMACH ONE-HALF HOUR BEFORE BREAKFAST perflutren lipid microspheres 1.3 mL in NaCl (PF) 0.9% 10 mL injection (DEFINITY) (20 sources) Start: 07-19-2023 End: 10-17-2024 perflutren lipid microspheres 1.3 mL in NaCl (PF) 0.9% 10 mL injection (DEFINITY) 125 ml sodium chloride 9 mg/ml prefilled syringe (20 sources) Start: 07-19-2023 End: 10-17-2024 sodium chloride 0.9 % (flush) 10 mL (BD POSIFLUSH) TENS unit and electrodes cmpk (20 sources) Start: 02-12-2023 TENS unit and electrodes cmpk Us as instructed. 1 Kit 02/12/2023 Active Start: 02-12-2023 TENS unit and electrodes cmpk Us as instructed. 1 Kit 0 02/12/2023 Active Comment on above: Us as instructed. traMADol hydrochloride 50 mg oral tablet (4 sources) Opioid Agonist Start: 02-03-20 22 take 50-100 mg by mouth every six hours as needed Tramadol Active 50 - 100 MG PO EVERY 6 HOURS NEEDED 48 7 February 01, 2022 11:00pm Vitamin B Complex (20 sources) Start: 06-01-20 11 take 1 tablet by mouth once daily vitamin b complex (B COMPLETE) ORAL Tab Take 1 tablet by mouth once daily. 100 tablet 4 06/01/2011 Active Comment on above: Take 1 tablet by jennifer once daily. vitamin b12 0.5 mg oral tablet (4 sources) Vitamin B12 Start: 11-23-19 17 take 2 tablets by mouth once daily Cyanocobalamin (Vitamin B-12) (B-12 Dots) 500 MCG tablet Active 1000 MCG PO DAILY@0800 November 23, 2016 12:00am zolpidem tartrate 5 mg oral tablet (20 sources) gamma-Aminobutyric Acid-ergic Agonist Start: 06-30-20 End: 06-20-20 24 take 1 tablet by mouth at bedtime as needed zolpidem (AMBIEN) 5 mg tablet Indications: Adjustment insomnia Take 1 tablet by mouth at bedtime as needed for sedation for up to 14 days. 14 tablet 0 06/30/2023 06/20/2024 Discontinued (Discontinued by Patient) Comment on above: Take 1 tablet by jennifer at bedtime as needed for sedation for up to 14 days. Completed/Discontinued Medications Medication Drug Class(es) Dates Sig (Normalized) Sig (Original) aspirin 81 mg delayed release oral tablet (5 sources) Platelet Aggregation Inhibitor, Nonsteroidal Anti-inflammatory Drug Start: 03-17-2019 ADULT ASPIRIN REGIMEN 81 MG TBEC 1 tablet daily ASPIRIN [id number] Kelli Fitzpatrick LPN Start: 05-18-2016 End: 05-23-2016 take 81 mg by mouth once daily Aspirin Discontinued 81 MG PO DAILY@0800 May 17, 2016 11:00pm May 23, 2016 9:53am B [id number] (1 source) Start: 03-17-2019 B COMPLETE TABS 1 tablet daily B [id number] Kelli Fitzpatrick LPN Blood-Glucose Meter monitoring kit (6 sources) Start: 03-30-2016 Blood-Glucose Meter monitoring kit Glucose Meter of Choice - Kit - Dx: Type 2 DM - Controlled E11.42 Insulin: No 1 Each 0 03/30/2016 Active Comment on above: Glucose Meter of Cho ice - Kit - Dx: Type 2 DM - Controlled E11.42 Insulin: No cephalexin 500 mg oral capsule (3 sources) Cephalosporin Antibacterial Start: 01-27-2023 End: 06-24-2023 take 500 mg by mouth every six hours Cephalexin Discontinued 500 MG PO EVERY 6 HOURS 15 06January 27, 2023 12:00am June 24, 2023 9:04am 24 hr isosorbide mononitrate 30 mg extended release oral tablet (4 sources) Nitrate Vasodilator Start: 05-18-2016 End: 05-23-2016 take 30 mg by mouth once daily Isosorbide Mononitrate Discontinued 30 MG PO DAILY May 17, 2016 11:00pm May 23, 2016 9:51am methocarbamol 750 mg oral tablet (6 sources) Muscle Relaxant Start: 12-23-2024 End: 12-24-2024 take 1 tablet by mouth twice daily as needed methocarbamol (ROBAXIN) 750 mg tablet Indications: Nocturnal leg cramps Take 1 tablet by mouth two times a day as needed (leg cramps). 60 tablet 1 12/23/2024 12/24/2024 Discontinued (Not on Formulary) Start: 01-04-2023 End: 02-03-2023 take 1 tablet by mouth every twelve hours as needed methocarbamol (ROBAXIN) 500 mg tablet Take 1 tablet by mouth twice daily as needed. 60 tablet 0 01/04/2023 02/03/2023 Active Comment on above: Take 1 tablet by jennifer twice daily as needed. sotalol hydrochloride 120 mg oral tablet (4 sources) Antiarrhythmic Start: End: take 120 mg by mouth twice daily Sotalol Discontinued 120 MG PO TWICE A DAY May 17, 2016 11:00pm May 23, 2016 9:51am temazepam 7.5 mg oral capsule (2 sources) Benzodiazepine Start: 023 End: 023 take 1 capsule by mouth at bedtime as needed temazepam (RESTORIL) 7.5 mg capsule Indications: Adjustment insomnia Take 1 capsule by mouth at bedtime as needed for up to 14 days. 14 capsule 0 06/28/2023 06/30/2023 Discontinued (Not on Formulary) Comment on above: Take 1 capsule by mo [facility] at bedtime as needed for up to 14 days. CHOLECALCIFEROL (1 source) Start: 019 VITAMIN D 1000 UNIT TABS 1 tablet daily CHOLECALCIFEROL [id number] Kelli Fitzpatrick LPN Problems Active Problems Problem Classification Problem Date Documented Da te Episodic/Chronic Acquired foot deformities (7 sources) Hammer toe; Translations: [Other hammer toe(s) (acquired), right foot] Onset: 5 Chronic Administrative/social admission (1 source) Follow-up status; Translations: [Person consulting for explanation of examination or test findings] Episodic Cardiac dysrhythmias (20 sources) Paroxysmal atrial fibrillation; Translations: [Paroxysmal atrial fibrillation] Onset: 6 Resolved: 0 11-06-2018 Chronic Chronic kidney disease (5 sources) Chronic renal failure; Translations: [Chronic renal failure, stage 3 (moderate)] Onset: 5 02-01-2022 Chronic Conditions associated with dizziness or vertigo (8 sources) Dizziness; Translations: [Dizziness and giddiness] Episodic Coronary atherosclerosis and other heart disease (20 sources) Coronary arteriosclerosis; Translations: [Atherosclerotic heart disease of [place] coronary artery without angina pectoris] Onset: 6 04-12-2018 Chronic Coronary atherosclerosis and other heart disease (5 sources) Patient post percutaneous transluminal coronary angioplasty; Translations: [Coronary angioplasty status] Onset: 5 04-30-2018 Episodic Diabetes mellitus with complications (20 sources) Type 2 diabetes mellitus; Translations: [Type 2 diabetes mellitus with diabetic polyneuropathy] Onset: 5 Resolved: 4 08-11-2015 Chronic Diabetes mellitus without complication (4 sources) Prediabetes; Translations: [Prediabetes] 04-30-2018 Episodic Diseases of mouth; excluding dental (1 source) Uvulitis; Translations: [Cellulitis and abscess of mouth] 10-12-2023 Episodic Disorders of lipid metabolism (20 sources) Hypercholesterolemia; Translations: [Pure hypercholesterolemia, unspecified] Onset: 2 Resolved: 7 11-06-2018 Chronic Esophageal disorders (20 sources) Gastroesophageal reflux disease; Translations: [Gastro-esophageal reflux disease without esophagitis] Onset: 2 11-06-2018 Chronic Essential hypertension (20 sources) Hypertensive disorder; Translations: [Essential (primary) hypertension] Onset: 5 Chronic Fever of unknown origin (1 source) Fever, unspecified; Translations: [Fever, unspecified] Onset: 3 Episodic Genitourinary symptoms and ill-defined conditions (2 sources) Increased frequency of urination; Translations: [Frequency of micturition] 10-12-2023 Episodic Hypertension with complications and secondary hypertension (20 sources) Chronic kidney disease due to hypertension; Translations: [Hypertensive 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 4 chronic kidney disease, or unspecified chronic kidney disease] Onset: 5 11-09-2020 Chronic Immunizations and screening for infectious disease (1 source) Vaccination needed; Translations: [Encounter for immunization] Episodic Malaise and fatigue (4 sources) Fatigue; Translations: [Chronic fatigue, unspecified] 04-30-2018 Chronic Miscellaneous mental health disorders (20 sources) Sleep terror disorder; Translations: [Sleep terrors [night terrors]] Onset: 2 11-24-2021 Chronic Miscellaneous mental health disorders (2 sources) Acute insomnia; Translations: [Adjustment insomnia] 06-28-2023 Episodic Open wounds of extremities (1 source) Open wound of toe; Translations: [Unspecified open wound of unspecified toe(s) without damage to nail, initial encounter] 02-07-2024 Episodic Osteoarthritis (20 sources) Degenerative joint disease involving multiple joints; Translations: [Polyosteoarthritis, unspecified] Onset: 5 Resolved: 3 02-16-2016 Chronic Other aftercare (1 source) Surgical follow-up; Translations: [Encounter for other specified surgical aftercare] Onset: 9 05-15-2019 Episodic Other aftercare (15 sources) Patient encounter status; Translations: [Encounter for therapeutic drug level monitoring] Episodic Other aftercare (1 source) Long-term current use of drug therapy; Translations: [Encounter for therapeutic drug level monitoring] 07-24-2024 Episodic Other aftercare (1 source) Drug therapy finding; Translations: [snf (current) use of anticoagulants] 07-24-2024 Episodic Other and unspecified benign neoplasm (3 sources) Senile angioma; Translations: [Hemangioma of skin and subcutaneous tissue] Episodic Other and unspecified benign neoplasm (2 sources) Multiple benign melanocytic nevi ; Translations: [Melanocytic nevi, unspecified] 08-20-2024 Episodic Other and unspecified benign neoplasm (1 source) Sebaceous adenoma of skin; Translations: [Other benign neoplasm of skin of unspecified part of face] 09-22-2024 Episodic Other and unspecified benign neoplasm (1 source) Melanocytic nevi, unspecified; Translations: [Multiple benign nevi] Onset: 5 Episodic Other and unspecified benign neoplasm (1 source) Hemangioma of skin and subcutaneous tissue; Translations: [Rios angioma] Onset: 5 Episodic Other connective tissue disease (4 sources) History of reverse prosthetic total arthroplasty of left shoulder; Translations: [Presence of left artificial shoulder joint] 02-02-2022 Chronic Other connective tissue disease (20 sources) Cramp in lower limb; Translations: [Sleep related leg cramps] Onset: 5 12-23-2024 Chronic Other connective tissue disease (1 source) Sleep related leg cramps; Translations: [Nocturnal leg cramps] Onset: 5 Chronic Other connective tissue disease (8 sources) Pain of toe of right foot; Translations: [Pain in right toe(s)] Episodic Other connective tissue disease (8 sources) Pain of toe of left foot; Translations: [Pain in left toe(s)] Episodic Other lower respiratory disease (1 source) Wheezing; Translations: [Wheezing] 06-23-2025 Episodic Other nervous system disorders (1 source) Other chronic pain; Translations: [Chronic midline thoracic back pain] Onset: 4 Chronic Other nervous system disorders (2 sources) Other acute postprocedural pain; Translations: [Other acute postprocedural pain] Onset: 5 Episodic Other nervous system disorders (1 source) Post-surgery back pain 05-21-2025 Episodic Other non-epithelial cancer of skin (20 sources) History of malignant neoplasm of skin; Translations: [Personal history of other malignant neoplasm of skin] Onset: 6 Resolved: 8 11-06-2018 Episodic Other nutritional; endocrine; and metabolic disorders (20 sources) Obese class I; Translations: [Obesity, unspecified] Onset: 9 11-13-2019 Chronic Other nutritional; endocrine; and metabolic disorders (6 sources) Obesity; Translations: [Obesity, unspecified] 04-30-2018 Chronic Other nutritional; endocrine; and metabolic disorders (1 source) Body mass index (BMI) 31.0-31.9, adult; Translations: [Class 1 obesity with body mass index (BMI) of 31.0 to 31.9 in adult, unspecified obesity type, unspecified whether serious comorbidity present] Onset: 5 Chronic Other screening for suspected conditions (not mental disorders or infectious disease) (1 source) Encounter for screening for malignant neoplasm of skin; Translations: [Skin exam, screening for cancer] Onset: 5 Episodic Other skin disorders (7 sources) Keratosis; Translations: [Epidermal thickening, unspecified] Episodic Other skin disorders (3 sources) Lentiginosis; Translations: [Other melanin hyperpigmentation] Episodic Other skin disorders (1 source) Other seborrheic keratosis; Translations: [Seborrheic keratosis] Onset: 5 Episodic Other skin disorders (1 source) Other melanin hyperpigmentation; Translations: [Lentigines] Onset: 5 Episodic Other upper respiratory infections (2 sources) Sore throat symptom; Translations: [Acute pharyngitis, unspecified] 10-12-2023 Episodic Phlebitis; thrombophlebitis and thromboembolism (7 sources) Deep venous thrombosis; Translations: [Acute embolism and thrombosis of unspecified deep veins of unspecified lower extremity] 01-27-2023 Episodic Residual codes; unclassified (20 sources) Obstructive sleep apnea syndrome; Translations: [Obstructive sleep apnea (adult) (pediatric)] Onset: 6 Chronic Residual codes; unclassified (7 sources) Parasomnia; Translations: [Parasomnia, unspecified] Chronic Residual codes; unclassified (1 source) Insomnia; Translations: [Other insomnia] Chronic Residual codes; unclassified (9 sources) H/O Spinal surgery; Translations: [Presence of other specified functional implants] Onset: 5 04-22-2025 Chronic Residual codes; unclassified (1 source) Obstructive sleep apnea (adult) (pediatric); Translations: [ETHAN on CPAP] Onset: 3 Chronic Residual codes; unclassified (1 source) Parasomnia, unspecified; Translations: [Parasomnia, unspecified type] Onset: 5 Chronic Residual codes; unclassified (1 source) Presence of other specified functional implants; Translations: [Status post insertion of spinal cord stimulator] Onset: 5 Chronic Residual codes; unclassified (4 sources) History of radiofrequency ablation operation for arrhythmia; Translations: [Other specified postprocedural states] 04-30-2018 Episodic Spondylosis; intervertebral disc disorders; other back problems (20 sources) Cervical spondylosis; Translations: [Spondylosis without myelopathy or radiculopathy, cervical region] Onset: 2 Chronic Syncope (1 source) Near syncope; Translations: [Syncope and collapse] 10-12-2023 Episodic Transient cerebral ischemia (1 source) Vertebrobasilar artery syndrome; 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 Unclassified (1 source) Unknown / UNK(Unknown) Onset: 7 Unclassified (1 source) History of lumbar fusion; Translations: [Arthrodesis status] Onset: 9 03-20-2019 Unclassified (1 source) Autogenerated Problem Onset: 5 03-18-2025 Unclassified (1 source) Weakness of both legs 05-21-2025 Unclassified (1 source) Class 1 obesity with body mass index (BMI) of 31.0 to 31.9 in adult, unspecified obesity type, unspecified whether serious comorbidity present; Translations: [Class 1 obesity with body mass index (BMI) of 31.0 to 31.9 in adult, unspecified obesity type, unspecified whether serious comorbidity present] Onset: 5 Viral infection (1 source) Disease caused by 2018-nCoV; Translations: [COVID-19] 10-12-2023 Episodic Past or Other Problems Problem Classification Problem Date Documented Da te Episodic/Chronic Abdominal pain (20 sources) Right lower quadrant pain; Translations: [Right lower quadrant pain] Resolved: 12-20-2023 06-28-2023 Episodic Congestive heart failure; nonhypertensive (20 sources) Acute diastolic heart failure; Translations: [Acute diastolic (congestive) heart failure] Onset: 06-28-2023 Resolved: 12-20-2023 04-30-2018 Chronic Diabetes mellitus without complication (20 sources) Diabetes mellitus without complication; Translations: [Type 2 diabetes mellitus without complications] Onset: 07-08-2007 Resolved: 02-16-2016 11-14-2021 Chronic Gastritis and duodenitis (20 sources) Acute gastritis; Translations: [Acute gastritis without bleeding] Onset: 01-19-2011 Resolved: 09-15-2017 09-15-2017 Episodic Inflammatory conditions of male genital organs (2 sources) Epididymitis; Translations: [Epididymitis] Onset: 12-05-2024 12-05-2024 Episodic Intestinal infection (20 sources) Infection caused by Helicobacter pylori; Translations: [Other specified bacterial intestinal infections] Onset: 05-30-2011 Resolved: 09-28-2011 11-14-2021 Episodic Mycoses (11 sources) Onychomycosis; Translations: [Tinea unguium] Onset: 03-12-2025 Episodic Neoplasms of unspecified nature or uncertain behavior (20 sources) Neoplasm of skin; Translations: [Neoplasm of unspecified behavior of bone, soft tissue, and skin] Onset: 02-17-2015 Resolved: 11-06-2018 Episodic Nonspecific chest pain (20 sources) Chest pain; Translations: [Chest pain, unspecified] Onset: 04-07-2012 Resolved: 02-16-2016 11-09-2020 Episodic Other acquired deformities (20 sources) Lumbar spondylolisthesis; Translations: [Spondylolisthesis, lumbar region] Onset: 02-04-2020 Resolved: 06-28-2023 02-04-2020 Episodic Other aftercare (20 sources) Long-term current use of anticoagulant; Translations: [snf (current) use of anticoagulants] Onset: 10-12-2015 04-12-2018 Episodic Other aftercare (1 source) Encounter for therapeutic drug level monitoring; Translations: [Encounter for monitoring dofetilide therapy] Onset: 12-15-2024 Episodic Other aftercare (1 source) Other long term care administrator (current) drug therapy; Translations: [Encounter for monitoring dofetilide therapy] Onset: 12-15-2024 Episodic Other and unspecified benign neoplasm (20 sources) Hemangioma of skin and subcutaneous tissue; Translations: [Hemangioma of skin and subcutaneous tissue] Onset: 02-17-2015 Resolved: 02-16-2016 11-14-2021 Episodic Other connective tissue disease (20 sources) History of cervical spine fusion; Translations: [Arthrodesis status] Onset: 02-04-2020 Resolved: 05-12-2021 Episodic Other connective tissue disease (20 sources) Myofascial pain syndrome of neck; Translations: [Myalgia, other site] Onset: 02-12-2023 Resolved: 12-20-2023 Episodic Other connective tissue disease (1 source) Other specified soft tissue disorders; Translations: [Other specified soft tissue disorders] Onset: 02-02-2023 Episodic Other connective tissue disease (20 sources) Tear of right rotator cuff; Translations: [Unspecified rotator cuff tear or rupture of right shoulder, not specified as traumatic] Onset: 10-21-2012 Resolved: 05-12-2021 05-12-2021 Episodic Other connective tissue disease (20 sources) History of lumbar fusion; Translations: [Arthrodesis status] Onset: 02-04-2020 Resolved: 05-12-2021 05-12-2021 Episodic Other connective tissue disease (11 sources) Other symptoms and signs involving the musculoskeletal system; Translations: [Other musculoskeletal symptoms referable to limbs] Onset: 05-21-2025 05-21-2025 Episodic Other connective tissue disease (1 source) Pain in right toe(s); Translations: [Pain in toe of right foot] Onset: 03-12-2025 Episodic Other connective tissue disease (1 source) Pain in left toe(s); Translations: [Pain in toe of left foot] Onset: 03-12-2025 Episodic Other diseases of kidney and ureters (20 sources) Renal impairment; Translations: [Disorder of kidney and ureter, unspecified] Onset: 11-16-2010 Resolved: 09-28-2011 11-14-2021 Episodic Other diseases of kidney and ureters (1 source) Disorder of kidney and ureter, unspecified; Translations: [Kidney insufficiency] Onset: 12-23-2024 Episodic Other disorders of stomach and duodenum (20 sources) Acquired hypertrophic pyloric stenosis; Translations: [Adult hypertrophic pyloric stenosis] Onset: 05-20-2007 Resolved: 01-29-2009 01-29-2009 Episodic Other gastrointestinal disorders (20 sources) Oropharyngeal dysphagia; Translations: [Dysphagia, oropharyngeal phase] Onset: 06-19-2022 06-19-2022 Episodic Other lower respiratory disease (1 source) Wheezing; Translations: [Wheezing] Onset: 06-25-2025 Episodic Other non-traumatic joint disorders (20 sources) Shoulder joint pain; Translations: [Pain in unspecified shoulder] Onset: 02-12-2015 Resolved: 02-16-2016 02-16-2016 Episodic Other nutritional; endocrine; and metabolic disorders (20 sources) Lipoprotein deficiency disorder; Translations: [Lipoprotein deficiency] Onset: 07-18-2005 Resolved: 02-19-2017 11-14-2021 Chronic Other skin disorders (20 sources) Actinic keratosis; Translations: [Actinic keratosis] Onset: 02-17-2015 11-06-2018 Episodic Other skin disorders (20 sources) Seborrheic keratosis; Translations: [Other seborrheic keratosis] Onset: 02-17-2015 Resolved: 11-06-2018 Episodic Other skin disorders (1 source) Actinic keratosis; Translations: [Actinic keratosis] Onset: 11-06-2018 Episodic Other skin disorders (1 source) Epidermal thickening, unspecified; Translations: [Hyperkeratosis] Onset: 03-12-2025 Episodic Residual codes; unclassified (20 sources) Insomnia; Translations: [Insomnia, unspecified] Onset: 08-21-2016 Resolved: 11-06-2018 11-06-2018 Episodic Screening and history of mental health and substance abuse codes (2 sources) Encounter for screening for depression; Translations: [Encounter for screening examination for other mental health and behavioral disorders] Onset: 06-23-2025 Episodic Spondylosis; intervertebral disc disorders; other back problems (20 sources) Spinal stenosis of lumbar region; Translations: [Neck pain] Onset: 08-26-2008 Resolved: 12-20-2023 03-20-2019 Episodic Sprains and strains (20 sources) Sprain of shoulder rotator cuff; Translations: [Sprain of unspecified rotator cuff capsule, initial encounter] Onset: 12-28-2014 Resolved: 12-28-2014 12-28-2014 Episodic Unclassified (1 source) Encounter for preprocedural cardiovascular examination Onset: 09-21-2017 Unclassified (1 source) Problem Unclassified (20 sources) SUMMARY Onset: 05-30-2011 Resolved: 09-15-2017 11-14-2021 Results Test Name Value Interpretation Reference Range Facility [facility] 09-21-2025 CNOV Office Visit (PODIWS) JG CHAHAL ([id number]) 1940 M Date Time Provider Department 09/21/25 9:15 AM JUAN TORRES During your visit today, we recorded the following information about you: Diane Saucedo RN 09/21/2025 10:54 AM Signed Patient presents with: Left Foot - Established Patient, Follow Up, Diabetic Foot Care Right Foot - Established Patient, Follow Up, Diabetic Foot Care Patient presents for follow up diabetic foot/nail care. Was started on Loprox at last visit. Hx of neuropathy. Last HA1c 5.9 on 06/23/25 CRISTIN 06/16/25 MikaylaAzeb marcanoew 09/21/2025 10:54 AM Signed Last saw pcp: 06/23/25 Subjective: Patient presents to clinic c/o painful toenails. They state that the nails are especially painful with shoe gear and pressure. Patient admits to being diabetic. He has hammertoes which lead to rubbing. He is interested in receiving a new order for diabetic shoes No other pedal complaints at this time. Patient states no change in medications or medical history since last visit. Objective: Patient presents to clinic ambulating in diabetic shoes Vasc: DP and PT pulses are palpable bilateral. CFT is less than 5 seconds bilateral. Skin temperature is warm to cool proximal to distal bilateral. There is mild edema or varicosities noted. Neuro: Protective sensation is intact to the foot and toes when tested with the 5.07 SWM bilateral. Vibratory sensation is absent at the hallux IPJ bilateral. The hallux is downgoing bilateral. Derm: Nails 1-5 right and 1-3,5 left are painful, discolored-yellow, thick, crumbly, dystrophic and with subungal debris. Skin is of normal turgor, texture and hair growth is absent bilateral. There are callus to tuft of b/l 3rd toe. No ulceration present Ortho: Muscle strength is 5/5 for all pedal groups tested. Ankle joint DF is decreased with the knee extended with no pain or crepitus noted. 1st MPJ ROM is decreased bilateral. Rigid hammertoes are present to b/l feet Assessment: (B35.1) Onychomycosis (primary encounter diagnosis) (M79.674) Pain in toe of right foot (M79.675) Pain in toe of left foot (E11.49) Other diabetic neurological complication associated with type 2 diabetes mellitus (HCC) (L85.9) Hyperkeratosis (M20.41, M20.42) Hammer toes of both feet Plan: Patient was seen and evaluated. Nails 1-5 right and 1-3,5 left were debrided in length and thickness. Callus reduced with dremmel to b/l feet Discussed hammertoes and the presence of callus and the history of diabetic neuropathy. Due to these reasons, diabetic shoes order. Patient was instructed on the continued importance of diabetic foot care along with proper diet and keeping their blood sugar under control to prevent complications. Patient is to RTC in 3-4 months. VVIEK Aleman Matthew 09/21/2025 9:28 AM Signed Diabetes Foot Care Instructions When you have diabetes, proper foot care is very important. Poor foot care may lead to amputation of a foot or leg. As a person with diabetes, you are more vulnerable to foot problems, because diabetes can damage your nerves and reduce blood flow to your feet. Here are some diabetes foot care tips to follow: Wash and Dry Your Feet Daily Use mild soaps Use warm water Pat your skin dry; do not rub. Thoroughly dry your feet. After washing, use lotion on your feet to prevent cracking. Do not put lotion between your toes. Examine Your Feet Each Day Check the tops and bottoms of your feet. Have someone else look at your feet if you cannot see them. Check for dry, cracked skin. Look for blisters, cuts, scratches, or other sores. Check for redness, increased warmth, or tenderness when touching any area of your feet. Check for ingrown toenails, corns, and calluses. If you get a blister or sore from your shoes, do not pop it. Apply a bandage and wear a different pair of shoes. Take Care of Your Toenails Cut toenails after bathing, when they are soft. Cut toenails straight across and smooth with a nail file. Avoid cutting into the corners of toes. Do not cut cuticles. If you have neuropathy (or decreased sensation in your feet) a web programmer should always cut your toenails. Be Careful When Exercising Walk and exercise in comfortable shoes. Do not exercise when you have open sores on your feet. Protect Your Feet With Shoes and Socks Never go barefoot. Always protect your feet by wearing shoes or hard-soled slippers or footwear. Avoid shoes with high heels and pointed toes. Avoid shoes that expose your toes or heels (such as open-toed shoes or sandals). These types of shoes increase your risk for injury and potential infections. Try on new footwear with the type of socks you usually wear. Do not wear new shoes for more than an hour at a time. Change your socks daily. Look and feel inside your shoes befo (more content not included)... Normal [facility] CNOVon 09-09-2025 CNOV Office Visit (STFLD) JG CHAHAL ([id number]) 1940 M Date Time Provider Department 09/09/25 1:40 PM RUTH PERLA STTND During your visit today, we recorded the following information about you: Ruth Perla DO 09/09/2025 3:15 PM Signed Established Patient Visit Last Visit Date: 02/18/2025 CC: FBSE waist up (per patient)-Declines Full body skin exam HPI: 85 year old male. Today's concerns are: 1) Skin lesions Location: L forearm Duration: ~3 months Symptoms: raised, bleeds Current treatment: none Past treatment: none 2) Skin lesions Location: temples Duration: ~3 months Symptoms: raised, bleeds Current treatment: none Past treatment: none Past Derm History: Personal history of melanoma: No Family history of melanoma (1st degree relative): Yes: Father, brothers, maternal uncle History of atypical nevi: No, Sebaceous adenoma L glabella Aug 2024 Personal history of NMSC: Yes: BCC R superior forehead 03/13-Moh's, BCC left jain s/p Mohs 03/26/2024, Left mid cheek s/p MOHS 04/11/2023, 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 Skin as above. Physical Exam: Gen: AANDOx3, well appearing Skin exam performed including scalp, face, neck, chest, abdomen, back, arms, hands-Declines lower body skin exam. Exam with noted findings of: -Scattered normal appearing brown macules and papules with reassuring features on dermoscopy -Trunk: scattered small red papules -Face, neck, trunk, UE with scattered polk-brown macules in sun-exposed distribution -Trunk, UE, LE with scattered warty brown stuck-on papules -Well healed and appropriated scars, no evidence of recurrence -5 pink scaly rough patches on the L forearm Assessment/Plan: ASSESSMENT/PLAN: 1. Skin exam, screening for cancer - ICD9: V76.43, ICD10: Z12.83 (primary diagnosis) -The ABCD's of melanoma were discussed. The patient is to perform monthly self exams and follow-up in dermatology for skin exams every 6 months. If any new lesions then the patient shall return sooner. Recommended SPF of 30 or greater. 2. Hx of nonmelanoma skin cancer - ICD9: V10.83, ICD10: Z85.828 -No evidence of recurrence at this time. Importance of monthly self skin checks emphasized. Recommend sun protection/avoidance , including hats and protective clothing, as well as sunscreen >=spf 30 qd. 3. Actinic keratosis - ICD9: 702.0, ICD10: L57.0 -Discussed premalignant etiology with low rate of development into skin cancer. Treatments include cyrotherapy, PDT, topical effudex. Recommended daily of use SPF 30 or greater -Cryotherapy SE/Risks discussed: The risks, benefits, indications, alternatives, and complications were discussed, and informed consent was obtained. Specifically, the risks of permanent scar, loss or darkening of skin color, blister and recurrence of lesion were discussed. Patient verbalized understanding and wished to proceed. Verbal consent was obtained. - See procedure notes. 4. Multiple benign nevi - ICD9: 216.9, ICD10: D22.9 -Explanation of these lesions were dicussed. Benign reassurance was given. -If lesion should change, grow, darken, bleed, etc then discussed with patient to call and return to the office. 5. Seborrheic keratosis - ICD9: 702.19, ICD10: L82.1 -Explanation of these lesions were dicussed. Benign reassurance was given. 6. Lentigines - ICD9: 709.09, ICD10: L81.4 -Explanation of these lesions were dicussed. Benign reassurance was given. 7. 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 Benign reassurance was given. Procedures: Procedure Note - Benign/Pre-Malignant Lesion(s) - Lesion(s) x5 AK's was treated with cryotherapy x 2 cycles x 10 sec/cycle with liquid nitrogen via cryostat spray device. The risks, benefits, indications, alternatives, and complications were discussed, and informed consent was obtained. Specifically, the risks of permanent scar, loss or darkening of skin color, blister and recurrence of lesion were discussed. Patient verbalized understanding and wished to proceed. Verbal consent was obtained. The patient tolerated the procedure well without complications. Wound care instructions were reviewed and given to patient. RTC 6 months FBSE. The patient is seen and examined by Dr. Perla and the following reflects his/her service. Scribed by Deejay Rivas RN. I agree with the Chief Complaint, ROS, and Past Histories independently gathered by the clinical program support assistant and the remaining scribed note accurately describes my personal service to the patient. DO Rob Robles Tyler, RN 09/09/2025 2:03 PM Signed Department of Dermatology [address] [place] [address] [address] [place] [address] SKIN CA (more content not included)... Normal [facility] CNOVon 08-03-2025 CNOV Office Visit (SLEWST) JG CHAHAL ([id number]) 1940 M Date Time Provider Department 08/03/25 9:00 AM RASHAUN MANNING JR During your visit today, we recorded the following information about you: Pulse Respiration Blood pressure Weight 73/minute 16/minute 116/71 95.6 kg Rashaun Manning Jr., MD 08/03/2025 10:23 AM Signed ESTABLISHED PATIENT VISIT CHIEF COMPLAINT: Follow Up HISTORY OF PRESENT ILLNESS: Jg Chahal is a 85 year old male, BMI 31.95 kg/m2 with a PMH significant for and per last office visit of 07/28/24: 1. ETHAN on CPAP - ICD9: 327.23, ICD10: G47.33 (primary diagnosis) Doing well on PAP. No complaints. Perceived benefit. Subjective and objective compliance confirmed. No changes to pressures today. Dry mouth is only issue and explained to pt how to adjust both humidifier and heated tubing settings including video demonstration while in office. Reminded pt to clean and replace equipment regularly and avoid ozone dumper mold cleaner. Advised pt not to drive or operate heavy machinery if sleepy. 2. Parasomnia, unspecified type - ICD9: 307.47, ICD10: G47.50 Stable and asx. Continue melatonin 3mg nightly (if needed can increase to 5mg (limited availability of 3mg tabs)). 3. Class 1 obesity with body mass index (BMI) of 32.0 to 32.9 in adult, unspecified obesity type, unspecified whether serious comorbidity present - ICD9: 278.00, V85.32, ICD10: E66.9, Z68.32 Enocuraged weight loss. PAP data download up to 08/02/25 shows 30/30 nights used for avg of 7 hours and 41 minutes.Set at 5-12 cmH2O with ERP 3. AHI is 0.4. 95% leak of 33.5 LPM. 95% pressure of 11.6 cmH2O. Patient continues to remain compliant with PAP. No complaints. No mask issues. Getting replacements through DME as needed. No pressure issues. Pt aware of mask leak but states he does not tighten it too tight as would cause headache. Also thinks he is using too small of a nasal piece but has a large one and will replace it. Note pt device last replaced in 2023. No other sleep issues. Still taking melatonin at night with no parasomnias. REVIEW OF SYSTEMS GENERAL:No weight loss, malaise or fevers. HEENT:Negative for frequent or significant headaches, No changes in hearing or vision, no nose bleeds or other nasal problems NECK:Negative for lumps, goiter, pain and significant neck swelling RESPIRATORY: Negative for cough, wheezing or shortness of breath. CARDIOVASCULAR: Negative for chest pain, or palpitations. GASTROINTESTINAL: Negative for abdominal discomfort, blood in stools or black stools or change in bowel habits GENITOURINARY: No history of dysuria, frequency or incontinence MUSCULOSKELETAL: Does have spinal stimulator since last visit - has improved back pain with ambulation. However, chronic knee pain unrelated. NEUROLOGIC:Negative for focal numbness or weakness, headaches and dizziness or syncope, vision changes, speech/languag changes - EXCEPT that as per HPI above. SKIN:Negative for lesions, rash, and itching. LAB/IMAGING: Those performed since patient's last visit have been reviewed. WBC (k/uL) Date Value 01/01/2024 6.26 RBC (m/uL) Date Value 01/01/2024 4.62 Hemoglobin (g/dL) Date Value 01/01/2024 14.1 Hematocrit (%) Date Value 01/01/2024 42.0 MCV (fL) Date Value 01/01/2024 90.9 MCH (pg) Date Value 01/01/2024 30.5 MCHC (g/dL) Date Value 01/01/2024 33.6 RDW-CV (%) Date Value 01/01/2024 14.7 Platelet Count (k/uL) Date Value 01/01/2024 217 MPV (fL) Date Value 01/01/2024 10.2 Glucose (mg/dL) Date Value 03/26/2025 96 BUN (mg/dL) Date Value 03/26/2025 15 Creatinine (mg/dL) Date Value 03/26/2025 1.23 (H) Sodium (mmol/L) Date Value 03/26/2025 140 Potassium (mmol/L) Date Value 03/26/2025 4.5 Chloride (mmol/L) Date Value 03/26/2025 104 CO2 (mmol/L) Date Value 03/26/2025 24 Protein, Total (g/dL) Date Value 03/26/2025 7.0 Albumin (g/dL) Date Value 03/26/2025 4.3 Calcium, Total (mg/dL) Date Value 03/26/2025 9.8 Alkaline Phosphatase (U/L) Date Value 03/26/2025 136 (H) Bilirubin, Total (mg/dL) Date Value 03/26/2025 1.0 AST (U/L) Date Value 03/26/2025 16 ALT (U/L) Date Value 03/26/2025 13 Rheumatoid Factor (IU/mL) Date Value 06/21/2005 8 MEDICATIONS: nitroglycerin sublingual (NITROSTAT) 0.4 mg SL tablet Dissolve 1 tablet under the tongue every 5 minutes as needed for chest pain. baclofen 10 mg tablet Take 1 tablet by mouth at bedtime as needed (leg cramps.). losartan (COZAAR) 50 mg tablet Take 1 tablet by mouth once daily. metoprolol succinate ER (TOPROL XL) 25 mg 24 hr tablet Take 1 tablet by mouth once daily. apixaban (ELIQUIS) 5 mg tab(s) Take 1 tablet by mouth two times a day. amLODIPine (NORVASC) 2.5 mg tablet Take 1 tablet by mouth once daily. dofetilide (TIKOSYN) 250 mcg capsule Take 1 caps (more content not included)... [facility] JG CHAHAL ([id number]) 1940 M Date Time Provider Department 07/23/25 RUTH PERLA [facility] During your visit today, we recorded the following information about you: Allergies As of Date: 07/23/2025 Noted Allergy Reaction ADHESIVE 12/07/2011 4 - Hives CODEINE 07/18/2005 Comments: HEART PALPITATIONS DARVOCET-N 100 (PROPOXYPHENE N-AC*07/16/2006 5 - Intolerance Comments: Heart racing LATEX 08/24/2012 4 - Hives MEPERIDINE HCL 08/27/2009 Date Reviewed: 06/23/2025 Reviewed by: Leatha Doss MA - Fully Assessed Prescriptions as of 07/23/2025 - nitroglycerin sublingual (NITROSTAT) 0.4 mg SL tablet Dissolve 1 tablet under the tongue every 5 minutes as needed for chest pain. - baclofen 10 mg tablet Take 1 tablet by mouth at bedtime as needed (leg cramps.). - losartan (COZAAR) 50 mg tablet Take 1 tablet by mouth once daily. - metoprolol succinate ER (TOPROL XL) 25 mg 24 hr tablet Take 1 tablet by mouth once daily. - apixaban (ELIQUIS) 5 mg tab(s) Take 1 tablet by mouth two times a day. - amLODIPine (NORVASC) 2.5 mg tablet Take 1 tablet by mouth once daily. - dofetilide (TIKOSYN) 250 mcg capsule Take 1 capsule by mouth two times a day. - pantoprazole DR (PROTONIX) 40 mg tablet TAKE ONE TABLET BY MOUTH DAILY ON EMPTY STOMACH ONE-HALF HOUR BEFORE BREAKFAST - atorvastatin (LIPITOR) 40 mg tablet Take 1 tablet by mouth once daily. - clotrimazole-betamet hasone (LOTRISONE) cream Apply to affected area twice daily. APPLY TO AFFECTED AREA - blood sugar diagnostic (BLOOD GLUCOSE TEST) test strip Test blood sugar(s) 1 times daily. Dx: Type 2 DM - Controlled E11.42 Insulin: No - TENS unit and electrodes cmpk Us as instructed. - melatonin 3 mg tablet Take 1 tablet by mouth daily at bedtime. - Lancets lancets Test blood sugar(s) 1 times daily. Dx: Type 2 DM - Controlled E11.42 Insulin: No - CPAP Patient requesting new DME. Currently has a PAP device (2016 -- may be due for new device). Please fit with a Wisp (currently with Dream wisp and causing discomfort on top of head). Lifetime supplies. - Amoxicillin 500 mg tablet Take 4 tablets by mouth as needed (1 hour before the procedure). - docusate sodium (COLACE) 100 mg capsule AT BEDTIME - magnesium oxide (MAG-OX) 400 mg tablet Take 1 tablet by mouth once daily. - Cholecalciferol, Vitamin D3, 1,000 unit cap Take 1 capsule by mouth once daily. - vitamin b complex (B COMPLETE) ORAL Tab Take 1 tablet by mouth once daily. 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 pylori infection [A04.8] 05/30/2011 09/28/2011 SUMMARY [V999.95] 11/24/2011 03/28/2012 SUMMARY [V999.95] 04/06/2012 09/15/2017 Chest pain [R07.9] 04/07/2012 02/16/2016 Hyperlipidemia [E78.5] 04/07/2012 02/19/2017 DM (diabetes mellitus) [E11.9] 04/07/2012 02/16/2016 Hypercholesteremia [E78.00] 08/24/2012 GERD (gastroesophageal reflux disease) [K21.9] 08/24/2012 Rotator cuff tear, right [M75.101] 10/21/2012 05/12/2021 Rotator cuff (capsule) sprain [S43.429A] 12/28/2014 12/28/2014 Pain in joint, shoulder region [M25.519] 02/12/2015 02/16/2016 Actinic keratosis [L57.0] 02/17/2015 Other seborrheic keratosis [L82.1] 02/17/2015 11/06/2018 Neoplasm of uncertain behavior of skin [D48.5] 02/17/2015 11/06/2018 Hemangioma of skin and subcutaneous tissue [D18*02/17/2015 02/16/2016 Basal cell carcinoma [C44.91] 02/23/2015 11/06/2018 Well controlled type 2 diabetes mellitus with p*08/11/2015 Chronic anticoagulation [Z79.01] 10/12/2015 Paroxysmal atrial fibrillation (HCC) [I48.0] 11/26/2015 Arthritis, midfoot [M19.079] 02/16/2016 06/28/2023 ETHAN on CPAP [G47.33] 05/25/2016 Insomnia [G47.00] 08/21/2016 11/06/2018 Type 2 diabetes mellitus with stage 3 chronic k*04/12/2018 06/20/2024 S/P coronary artery stent placement, multiple s*09/08/2019 Other persistent atrial fibrillation (HCC) [I48*09/08/2019 11/09/2020 Obesity, Class I, BMI 30-34.9 [E66.811] 11/13/2019 Spondylolisthesis of lumbar region [M43.16] 02/04/2020 06/28/2023 History of fusion of lumbar spine [Z98.1] 02/04/2020 05/12/2021 History of fusion of cervical spine [Z98.1] 02/04/2020 05/12/2021 Neck pain (more content not included)... Normal [facility] XR CHEST 2V FRONTAL/LATon XR CHEST 2V FRONTAL/LAT * * *Final Repor t* * * DATE OF EXAM: Jun 25 2025 9:30AM WOX [id number] - XR CHEST 2V FRONTAL/LAT / PROCEDURE REASON: Wheezing * * * * Physician Interpretation * * * * EXAMINATION: CHEST RADIOGRAPH (2 VIEW FRONTAL and LATERAL) CLINICAL HISTORY: Wheezing MQ: [id number]_6 EXAM DATE/TIME: 06/25/2025 9:30 AM COMPARISON: 12/05/2015 RESULT: Lines, tubes, and devices: Paired stimulator leads superimpose the lower thoracic spine. Lungs and pleura: No consolidation. No lung mass. No pleural effusion. No pneumothorax. Cardiomediastinal silhouette: Normal cardiomediastinal silhouette. Bones and soft tissues: Fusion plate, lower cervical spine. Interval left shoulder arthroplasty IMPRESSION: No acute radiographic abnormality. Supply Chain Planner: PSCB Transcribe Date/Time: Jun 26 2025 10:48A Dictated by : DAMIEN MELCHOR MD This examination was interpreted and the report reviewed and electronically signed by: DAMIEN MELCHOR MD on Jun 26 2025 10:50AM EST [id number] CN Normal [facility] ALBUMIN/CREATININE RATIO, UR INEon 06-23-2025 Albumin DL <= 20 mg/L (U) [Mass/Vol] mg/dL Normal [facility] Comment on above: Order Comment: Speci men Type: URINE SPECIMENOrdering Facility: [facility] Address: [address] [place] [address] Performed By: #### U ACR ####[facility] LABCLIA [id number] [place] [address] [place] Albumin/Creatinine (U) [Mass ratio] <8 Normal <30 [facility] Comment on above: Order Comment: Speci men Type: URINE SPECIMENOrdering Facility: [facility] Address: [address] [place] [address] Result Comment: Adul t Male and Female Nephrotic Criteria: <30 mg/g is considered normal to mildly increased 30-300 mg/g is considered moderately increased >300 mg/g is considered severely increased KDIGO. (2013). KDIGO 2012 Clinical Practice Guideline for the Evaluation and Management of Chronic Kidney Disease. Official Journal of the International Society of Nephrology, 3(1), 1-150. Performed By: #### U ACR ####[facility]CLIA [id number] [place] [address] [place] Creatinine (U) [Mass/Vol] 141.9 mg/dL Normal 20.0-300.0 [facility] Comment on above: Order Comment: Speci men Type: URINE SPECIMENOrdering Facility: [facility] Address: [address] [place] [address] Performed By: #### U ACR ####[facility] LABCLIA [id number] [place] [id number] [place] CNOVon 06-23-2025 CNOV Office Visit (INTMWS) JG CHAHAL ([id number]) 1940 M Date Time Provider Department 06/23/25 8:00 AM GALINDO YUAN INTMWS During your visit today, we recorded the following information about you: Pulse Blood pressure Weight Height 80/minute 118/68 96.1 kg 1.73 m Galindo Yuan MD 06/23/2025 8:59 AM Signed Jg Chahal is a 84 year old male here for a Medicare wellness visit. Medicare Health Risk Assessment General Health Fair Exercise: Minutes/Day 30 min Exercise: Days/Week 4 days Alcohol: Daily Use Never Alcohol: Drinks/Day Patient does not drink Alcohol: 6 or more drinks Never Feel off balance No Concerns: Teeth/Dentures No Concerns: Sexual function No Troubled by feelings None of the above Frequency: Eating healthy diet Nearly every day ADLs requiring help None of the above Safety precautions in home/vehicle Yes Smoke, vape, chews tobacco No Difficulty hearing Yes Difficulty seeing No Current Providers Specialists: I have reviewed specialist-related care of the patient in the medical record. Current care team: Patient Care Team: Galindo Yuan MD as PCP - General (Internal Medicine) Sakshi Sanz MD (Cardiology, EPS) Ana Mckoy, UNIVERSITY TUTOR.DENTAL FLOSS PACKER as Candy Bar Attendant (Internal Medicine) Renan Bah MD (Cardiology) Ruth Perla DO (Dermatology) Rashaun Manning MD (Neurology-Sleep Medicine) Renan Bowling MD (Pain management) Juan Torres DPShantanu (Podiatry) Odin Ochoa MD ([facility], Neurosurgery) Uri Diggs MD (Ophthalmology, [facility]). Medical/Family history review Reviewed and updated problem list, medical/surgical/fam dov/social history, medications, and allergies. Opioid use review Opioid Medications (last 90 days) No data to display Anxiety/Depression screening Recommendation: no further intervention at this time Cognitive screening Mini Cog Score: 4 Cognitive screening reviewed and No further action needed (score 3-5). Functional Observation Was the patient's Timed Up AND Go test unsteady or >= 12 seconds? No Advance Care Planning Patient did not wish or was not able to name a surrogate decision maker or provide an advance care plan Measurements BP 118/68 Pulse 80 Ht 173 cm (5' 8.11) Wt 96.1 kg (211 lb 13.8 oz) SpO2 98% BMI 32.11 kg/m? Vision Screening: Follows with optometry/ophthalmol ogy Assessment/Plan Medicare annual wellness visit, subsequent (Z00.00) - Counseled on healthy diet and regular exercise - Fall avoidance information provided - Personalized prevention plan provided Galindo Yuan MD 06/23/2025 8:59 AM Signed Subjective Jg Chahal is a 84 year old male. He was doing reasonably well. Physical therapy recommended HEP for his leg weakness and this was improved. Diabetes was diet controlled. Chronic kidney disease was stable. Hyperlipidemia was controlled. Chronic pains were stable and better s/p implanted spinal cord stimulator. 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 Obesity, Class I, Bmi 30-34.9 Sleep Terrors Oropharyngeal Dysphagia Cervical Spondylosis Stable Angina Nocturnal Leg Cramps Primary Hypertension Status Post Insertion of Spinal Cord Stimulator Lumbar Radiculopathy Failed Back Syndrome Weakness of Both Legs PAST SURGICAL HISTORY Procedure Laterality Date ARTHROSCOPY KNEE DIAGNOSTIC W/WO SYNOVIAL BX SPX 11/2003 Arthroscopy, knee ARTHRP ACETBLR/PROX FEM PROSTC AGRFT/ALGRFT Right 08/07/2016 Hip replacement, total ARTHRP KNE CONDYLEANDPLATU MEDIALANDLAT COMPARTMENTS 2002 Knee replacement, total, left ARTHRP KNE CONDYLEANDPLATU MEDIALANDLAT COMPARTMENTS Left 10/01/2017 revision L TKA, [facility] CC ABLATION SVT 04/06/2017 EP study, ablation for A.fib. COLONOSCOPY FLX DX W/COLLJ SPEC WHEN PFRMD 12/24/2002 Colonoscopy COLONOSCOPY FLX DX W/COLLJ SPEC WHEN PFRMD 05/11/2011 Colonoscopy ESOPHAGOGASTRODUODEN OSCOPY TRANSORAL DIAGNOSTIC 03/18/2007 EGD ESOPHAGOGASTRODUODEN OSCOPY TRANSORAL DIAGNOSTIC 06/11/2007 EGD ESOPHAGOGASTRODUODEN OSCOPY TRANSORAL DIAGNOSTIC 05/11/2011 EGD [id number] RENE SENZA SPINAL CORD STIMULATOR 04/10/2025 Perc. Thoracic Spinal Cord Stim. Generator and electrode implant. (more content not included)... Normal [facility] HEMOGLOBIN A1C (POC)on 06-23 HbA1c (Bld) [Mass fraction] 5.9 % Abnormal 4.3 - 5.6 % [facility] Comment on above: [id number] Location:[address], [place], [address] Point of care (POC) Hemoglobin A1c (HGBA1C) testing is intended to assess glucose control and provide a management tool for patients known to have diabetes and their healthcare providers. Target HGBA1C levels may depend on specific clinical circumstances. POC HGBA1C is not intended for use as a diagnostic or screening test; laboratory-based testing should be used for diagnostic purposes. The following information is supplemental and may not be applicable to specific diabetes management situations: The POC device reinforcing steel machine operator provides a normal range of 4.2% to 6.5% for the HGBA1C POC test. However, the [place] [employer] guidelines indicate that patients with HGBA1C in the range of 5.7% to 6.4% are at increased risk for development of diabetes and that intervention by lifestyle modification may be beneficial. A HGBA1C level greater than or equal to 6.5% is considered diagnostic of diabetes, pending confirmatory testing. Use of HGBA1C testing to evaluate glucose control may not be appropriate for patients with hemoglobin variants or other conditions (e.g. anemia) that alter red blood cell lifespan. Interpretation and review of laboratory results Abnormal [facility] CNOVon 06-16-2025 CNOV Office Visit (PODIWS) GJ CHAHAL ([id number]) 1940 M Date Time Provider Department 06/16/25 8:15 AM JUAN TORRES During your visit today, we recorded the following information about you: Holli Johnson LPN 06/16/2025 9:40 AM Signed AMB ROOMING INTAKE FLOWSHEET DATA Patient presents with: Right Foot - Established Patient, Pain, Diabetic Foot Care Left Foot - Established Patient, Pain, Diabetic Foot Care HUANG Ramirez Matthew 06/16/2025 9:40 AM Signed Last saw pcp: 05/21/25 Subjective: Patient presents to clinic c/o painful toenails. They state that the nails are especially painful with shoe gear and pressure. Patient states that nails 1-5 b/l are painful. Patient admits to being diabetic. No other pedal complaints at this time. Patient states no change in medications or medical history since last visit. Objective: Patient presents to clinic ambulating in tennis shoes Vasc: DP and PT pulses are palpable bilateral. CFT is less than 5 seconds bilateral. Skin temperature is warm to cool proximal to distal bilateral. There is moderate edema or varicosities noted. Neuro: Protective sensation is absent to the foot and toes when tested with the 5.07 SWM bilateral. Vibratory sensation is absent at the hallux IPJ bilateral. The hallux is downgoing bilateral. Derm: Nails 1-5 b/l are painful, discolored-yellow, thick, crumbly, dystrophic and with subungal debris. Skin is of normal turgor, texture and hair growth is absent bilateral. There are callus to left 3rd toe. No ulcerations, scars, verruca or other lesions noted. Scaling is noted between the left 4th interspace Ortho: Muscle strength is 5/5 for all pedal groups tested. Ankle joint DF is decreased with the knee extended with no pain or crepitus noted. 1st MPJ ROM is decreased bilateral. Rigid hammertoes of lesser toes of b/l feet Assessment: (B35.1) Onychomycosis (primary encounter diagnosis) (M79.674) Pain in toe of right foot (M79.675) Pain in toe of left foot (E11.49) Other diabetic neurological complication associated with type 2 diabetes mellitus (HCC) (L85.9) Hyperkeratosis (B35.3) Tinea pedis of left foot Plan: Patient was seen and evaluated. Nails 1-5 bilateral were debrided in length and thickness. Callus reduced with dremmel to left 3rd toe Discussed athletes's foot. Recommend the use of loprox between toes and use of lambs wool. When macerated, use betadine. Patient was instructed on the continued importance of diabetic foot care along with proper diet and keeping their blood sugar under control to prevent complications. Patient is to RTC in 3-4 months. VIVEK Aleman Matthew 06/16/2025 8:43 AM Addendum You have what appears to be athletes foot between the 4th and 5th toes. Please be sure to dry between your toes. When the foot has scaling between the toes, use the prescribed athlete's foot medication. If you notice excess moisture, hold on medication and use betadine. The use of lambs wool between the toes will also help. Diabetes Foot Care Instructions When you have diabetes, proper foot care is very important. Poor foot care may lead to amputation of a foot or leg. As a person with diabetes, you are more vulnerable to foot problems, because diabetes can damage your nerves and reduce blood flow to your feet. Here are some diabetes foot care tips to follow: Wash and Dry Your Feet Daily Use mild soaps Use warm water Pat your skin dry; do not rub. Thoroughly dry your feet. After washing, use lotion on your feet to prevent cracking. Do not put lotion between your toes. Examine Your Feet Each Day Check the tops and bottoms of your feet. Have someone else look at your feet if you cannot see them. Check for dry, cracked skin. Look for blisters, cuts, scratches, or other sores. Check for redness, increased warmth, or tenderness when touching any area of your feet. Check for ingrown toenails, corns, and calluses. If you get a blister or sore from your shoes, do not pop it. Apply a bandage and wear a different pair of shoes. Take Care of Your Toenails Cut toenails after bathing, when they are soft. Cut toenails straight across and smooth with a nail file. Avoid cutting into the corners of toes. Do not cut cuticles. If you have neuropathy (or decreased sensation in your feet) a web programmer should always cut your toenails. Be Careful When Exercising Walk and exercise in comfortable shoes. Do not exercise when you have open sores on your feet. Protect Your Feet With Shoes and Socks Never go barefoot. Always protect your feet by wearing shoes or hard-soled slippers or footwear. Avoid shoes with high heels and pointed toes. Avoid shoes that expose your toes or heels (such as open-toed shoes or sandals). These types of shoes increase your risk for injury and (more content not included)... Normal [facility] [id number] 06-08-2025 [id number] HNO ID: [id number] Author: ULISSES FOX PT Service: ? Author Type: Physical Therapist Type: [id number] Filed: 06/08/2025 15:56 Note Text: [facility] Physical Therapy Plan of Care Certification Patient Name: Jg Chahal : 1940 [facility] #: [id number] Date: 06/08/2025 To: Galindo Yuan MD From Therapist: Ulisses Fox PT RE: Patient Certification/ Recertification Your review, approval and electronic signature are required in order to comply with Payor: AET MEDICARE / Plan: [employer] MEDICARE PPO / Product Type: PPO / regulations. The identified Physical Therapy PLAN OF CARE for the patient is as follows: R29.898 Weakness of both legs (primary encounter diagnosis) M96.1 Failed back syndrome M54.16 Lumbar radiculopathy PLAN OF CARE: Assessment: Jg Chahal presents with chief complaint of BLE weakness that interferes with standing, walking in the community, bending, physical activities, lifting, squatting . The patient presents with impairments in ADL's, gait, overall function, strength, and symptom management. PROMIS? (Patient-Reported Outcomes Measurement Information System) scores were reviewed and identified as a rehabilitation concern. Prognosis for therapy is Fair due to: clinical presentation, multiple co- morbidities, chronic nature of impairments, advanced age, limited tolerance to activity . The patient will benefit from skilled therapy services to meet the goals established for this plan of care as noted below. Assessment Fall Risk : Active low risk Goals for Episode of Care: established Patient reported outcome of physical function will increase T-score by a minimum 5 points. [place] in home exercise program. Patient will demonstrate increase in BLE strength to 4+/5 during manual muscle testing in order to improve function for basic self-care tasks, home management tasks, and light functional tasks. Perform walking and standing for ADLs with decreased report of symptoms/pain in 4-6 weeks. Time Frame for Goals and Treatment : 08/09/25 Planned Interventions, Frequency, and Duration: Current Frequency: 1x/week Duration: 4 weeks Total Number of Visits Planned: 4 Planned Treatment Interventions: Therapeutic exercise (71539), Therapeutic activities (47482), Neuromuscular re-education (49320), Manual therapy (77980), Gait Training (02671), Self-usp management (61538), Patient/Family/Careg iver Education, Body Mechanics Training PLAN FOR NEXT VISIT: Assess carry voer of HEP, progress accordingly Patient demonstrates good understanding of plan of care and treatment. The above goals and plan of care were discussed and agreed upon by patient/family. For further details regarding this patient refer to the Physical Therapy electronically documented visit dated 06/08/2025. Provider Attestation I have reviewed the treatment plan for Jg Chahal, [facility]# [id number] for the period of 06/08/25 -- 07/20/25, established on 06/08/2025. Signature certifies the need for therapy services. Normal [facility] CNTHERAPYon 06-08-2025 CNTHERAPY OT/PT/Speech Visit (PTWS) JG CHAHAL ([id number]) 1940 M Date Time Provider Department 06/08/25 9:00 AM ULISSES FOX PTWS Date Time Provider Department Center 06/08/2025 9:00 AM [id number], SEAN PTWS Mara Wilson Reason for Visit: PT Eval [747] Primary Visit Diagnosis:Weakness of both legs [R29.898] Other Visit Diagnoses:Failed back syndrome [M96.1] Lumbar radiculopathy [M54.16] Allergies As of Date: 06/08/2025 Noted Allergy Reaction ADHESIVE 12/07/2011 4 - Hives CODEINE 07/18/2005 Comments: HEART PALPITATIONS DARVOCET-N 100 (PROPOXYPHENE N-AC*07/16/2006 5 - Intolerance Comments: Heart racing LATEX 08/24/2012 4 - Hives MEPERIDINE HCL 08/27/2009 Date Reviewed: 05/21/2025 Reviewed by: Griselda Stark LPN - Fully Assessed Prescriptions as of 06/08/2025 - nitroglycerin sublingual (NITROSTAT) 0.4 mg SL tablet Dissolve 1 tablet under the tongue every 5 minutes as needed for chest pain. - baclofen 10 mg tablet Take 1 tablet by mouth at bedtime as needed (leg cramps.). - losartan (COZAAR) 50 mg tablet Take 1 tablet by mouth once daily. - metoprolol succinate ER (TOPROL XL) 25 mg 24 hr tablet Take 1 tablet by mouth once daily. - apixaban (ELIQUIS) 5 mg tab(s) Take 1 tablet by mouth two times a day. - amLODIPine (NORVASC) 2.5 mg tablet Take 1 tablet by mouth once daily. - dofetilide (TIKOSYN) 250 mcg capsule Take 1 capsule by mouth two times a day. - pantoprazole DR (PROTONIX) 40 mg tablet TAKE ONE TABLET BY MOUTH DAILY ON EMPTY STOMACH ONE-HALF HOUR BEFORE BREAKFAST - atorvastatin (LIPITOR) 40 mg tablet Take 1 tablet by mouth once daily. - clotrimazole-betamet hasone (LOTRISONE) cream Apply to affected area twice daily. APPLY TO AFFECTED AREA - blood sugar diagnostic (BLOOD GLUCOSE TEST) test strip Test blood sugar(s) 1 times daily. Dx: Type 2 DM - Controlled E11.42 Insulin: No - TENS unit and electrodes cmpk Us as instructed. - melatonin 3 mg tablet Take 1 tablet by mouth daily at bedtime. - Lancets lancets Test blood sugar(s) 1 times daily. Dx: Type 2 DM - Controlled E11.42 Insulin: No - CPAP Patient requesting new DME. Currently has a PAP device (2016 -- may be due for new device). Please fit with a Wisp (currently with Dream wisp and causing discomfort on top of head). Lifetime supplies. - Amoxicillin 500 mg tablet Take 4 tablets by mouth as needed (1 hour before the procedure). - docusate sodium (COLACE) 100 mg capsule AT BEDTIME - magnesium oxide (MAG-OX) 400 mg tablet Take 1 tablet by mouth once daily. - Cholecalciferol, Vitamin D3, 1,000 unit cap Take 1 capsule by mouth once daily. - vitamin b complex (B COMPLETE) ORAL Tab Take 1 tablet by mouth once daily. Head Grinder: Addendum Therapy (PT/OT/Speech/Resp) ID: [id number] 06/08/2025 9:29 AM Author: ULISSES FOX Signed by ULISSES FOX PT on 06/08/2025 at 9:29 AM * * * This document replaces document [id number] * * * Document text: Program_ID:[id number] Access Code: [email or web address] URL: [email or web address] Date: 06-08-2025 Prepared By: Ulisses Fox Program Notes Exercises - Supine Active Straight Leg Raise - 1 x daily - 7 x weekly - 3 sets - 10 reps - Sidelying Hip Abduction - 1 x daily - 7 x weekly - 3 sets - 10 reps - Sit to Stand with Arms Crossed - 1 x daily - 7 x weekly - 3 sets - 10 reps - Seated Long Arc Quad with Ankle Weight - 1 x daily - 7 x weekly - 3 sets - 10 reps -------- Normal [facility] THERAPY NTon 06-08-2025 THERAPY NT HNO ID: [id number] Author: ULISSES FOX PT Service: ? Author Type: Physical Therapist Type: Therapy (PT/OT/Speech/Resp) Filed: 06/08/2025 09:29 Note Text: Program_ID:[id number] Access Code: [email or web address] URL: [email or web address] Date: 06-08-2025 Prepared By: Ulisses Fox Program Notes Exercises - Supine Active Straight Leg Raise - 1 x daily - 7 x weekly - 3 sets - 10 reps - Sidelying Hip Abduction - 1 x daily - 7 x weekly - 3 sets - 10 reps - Sit to Stand with Arms Crossed - 1 x daily - 7 x weekly - 3 sets - 10 reps - Seated Long Arc Quad with Ankle Weight - 1 x daily - 7 x weekly - 3 sets - 10 reps Normal [facility] CNOVon 05-21-2025 CNOV Office Visit (INTMWS) TIRSOJG Whalen ([id number]) 1940 M Date Time Provider Department 05/21/25 11:40 AM GALINDO YUAN INTMWS During your visit today, we recorded the following information about you: Pulse Respiration Blood pressure Weight 76/minute 16/minute 124/70 94.4 kg Galindo Yuan MD 05/21/2025 12:29 PM Signed This note was created using [employer]. Subjective Patient presents with: Discussion Jg Whalen Tirso is a 84 year old male. Recording using [email or web address] software for draft documentation of the visit was discussed with the patient/authorized aircraft sales representative; all questions welcomed and answered. Patient/authorized aircraft sales representative agreed to proceed Lower Extremity Weakness: - Onset following percutaneous thoracic spinal cord stimulator placement on April 10. - Describes legs as feeling like they are going to go after standing for 20 minutes. - Reports veering to the right when walking without a cane. - Able to ascend and descend 12 steps twice daily using handrails; does not use a cane for this. - Denies paresthesia or tingling. - Bowel movements and urination are regular. - Denies fever or illness. Spinal Cord Stimulator: - Percutaneous thoracic spinal cord stimulator electrodes and generator placed on April 10 at [facility]. - Reports 50% pain relief in the back, with some days as low as 35%. - Able to stand for 20 minutes without back pain, compared to 3-4 minutes before the procedure. - Battery requires charging every 7 days for 45 minutes; failure to charge results in increased pain. - Incision site is healed; denies current pain at the site. 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 - Experiences instability, especially when descending stairs. - Considering a brace for support. Review of Systems Constitutional: (-) fever Gastrointestinal: (-) constipation, (-) diarrhea Genitourinary: (+) increased urinary frequency Musculoskeletal: (+) right knee instability Neurological: (+) bilateral leg weakness, (-) paresthesias, (-) decreased sensation Objective BP 124/70 (BP Site: Left Arm, BP Position: Sitting, BP Cuff Size: Large Adult) Pulse 76 Resp 16 Wt 94.4 kg (208 lb 1.8 oz) BMI 32.60 kg/m? Physical Exam Constitutional: General: He is not in acute distress. Appearance: He is not ill-appearing. Pulmonary: Effort: Pulmonary effort is normal. Abdominal: General: There is no distension. Tenderness: There is no abdominal tenderness. Musculoskeletal: General: No tenderness. Lumbar back: No tenderness or bony tenderness. Negative right straight leg raise test and negative left straight leg raise test. Scoliosis present. Right lower leg: No edema. Left lower leg: No edema. Comments: Healed surgical sites (2) left lumbar area. Neurological: Mental Status: He is alert. Motor: Weakness (Weakness of both legs 4/5, right slightly more than left.) present. Gait: Gait abnormal (antalgic gait). Comments: Ambulates with cane. Assessment and Plan 1. Weakness of both legs - ICD9: 729.89, ICD10: R29.898 (primary diagnosis) - CONSULT TO PHYSICAL THERAPY 2. 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 Lumbar radiculopathy - ICD9: 724.4, ICD10: M54.16 - CONSULT TO PHYSICAL THERAPY 4. Status post insertion of spinal cord stimulator - ICD9: V45.89, ICD10: Z96.89 - with benefit. Galindo Yuan MD Allergies As of Date: 05/21/2025 Noted Allergy Reaction ADHESIVE 12/07/2011 4 - Hives CODEINE 07/18/2005 Comments: HEART PALPITATIONS DARVOCET-N 100 (PROPOXYPHENE N-AC*07/16/2006 5 - Intolerance Comments: Heart racing LATEX 08/24/2012 4 - Hives MEPERIDINE HCL 08/27/2009 Date Reviewed: 05/21/2025 Reviewed by: Griselda Stark LPN - Fully Assessed Reason for Visit: Discussion [813] Primary Visit Diagnosis:Weakness of both legs [R29.898] Other Visit Diagnoses:Failed back syndrome [M96.1] Lumbar radiculopathy [M54.16] Status post insertion of spinal cord stimulator [Z96.89] Order(s):CONSULT TO PHYSICAL THERAPY [9032] Order #: [id number]: 1 FUTURE Prescriptions as of 05/21/2025 - nitroglycerin sublingual (NITROSTAT) 0.4 mg SL tablet Dissolve 1 tablet under the tongue every 5 minutes as needed for chest pain. - baclofen 10 mg tablet Take 1 tablet by mouth at bedtime as needed (leg cramps.). - losartan (COZAAR) 50 mg tablet Take 1 tablet by mouth once daily. - metoprolol succinate ER (TOPROL XL) 25 mg 24 hr tablet Take 1 tablet by mouth once daily. - apixaban (ELIQUIS) 5 mg tab(s) Take 1 tablet by mouth two times a day. - amLODIPine (NORVASC) 2.5 mg tablet Take 1 tablet by mouth once daily. - dofetilide (TIKOSYN) 250 mcg capsule Take 1 capsule by mouth two times a day. - pantoprazole DR (PROTONIX) (more content not included)... Normal [facility] Blood type and Indirect anti body screen panel (Bld)on 04-10-2025 ABO group Nom (Bld) O Normal [facility] Comment on above: Order Comment: As ne eded preprocedure ONCE for scheduled for aortic, liver, cardiac, or thoracic surgery OR hgb<7.5mg/dl and no active type and screen. RN to release order. Performed By: #### 3 4532-2 #### SAKSHI Whalen ([id number]) [facility] ([facility]) [address] [place], [place] [address] Blood group antibody screen Ql Negative [facility] Comment on above: Order Comment: As ne eded preprocedure ONCE for scheduled for aortic, liver, cardiac, or thoracic surgery OR hgb<7.5mg/dl and no active type and screen. RN to release order. Performed By: #### 3 4532-2 #### SAKSHI Whalen ([id number]) [facility] ([facility]) [address] [place], [place] [address] D Ag Ql (Bld) Positive [facility] Comment on above: Order Comment: As ne eded preprocedure ONCE for scheduled for aortic, liver, cardiac, or thoracic surgery OR hgb<7.5mg/dl and no active type and screen. RN to release order. Performed By: #### 3 4532-2 #### SAKSHI Whalen ([id number]) [facility] ([facility]) [address] [place] [address] FL FLUORO IMAGES NO CHARGEon 04-10-2025 FL FLUORO IMAGES NO CHARGE These images are not reportable by radiology and will not be interpreted by Radiologists. Normal [facility] Basic metabolic 2000 panelon 04-01-2025 Anion gap [Moles/Vol] 17 mmol/L Normal 10-20 [facility] Comment on above: Performed By: #### 2 4321-2 #### SAKSHI Whalen ([id number]) [facility] ([facility]) [address] [place] [address] Calcium [Mass/Vol] 9.4 mg/dL Normal 8.6-10.6 [facility] Comment on above: Performed By: #### 2 4321-2 #### SAKSHI Whalen ([id number]) [facility] ([facility]) [address] [place] [address] Chloride [Moles/Vol] 104 mmol/L Normal 98-107 [facility] Comment on above: Performed By: #### 2 4321-2 #### SAKSHI Whalen ([id number]) [facility] ([facility]) [address] [place] [address] CO2 [Moles/Vol] 23 mmol/L Normal 21-32 [facility] Comment on above: Performed By: #### 2 4321-2 #### SAKSHI Whalen ([id number]) [facility] ([facility]) [address] [place] [address] Creatinine [Mass/Vol] 1.16 mg/dL Normal 0.50-1.30 [facility] Comment on above: Performed By: #### 2 4321-2 #### SAKSHI Whalen ([id number]) [facility] ([facility]) [address] [place] [address] Glomerular filtration rate/1.73 sq M.predicted 62 mL/min/1.73m*2 Normal >60 [facility] Comment on above: Result Comment: Calc ulations of estimated GFR are performed using the 2020 CKD-EPI Study Refit equation without the race variable for the IDMS-Traceable creatinine methods. https://jasn.asnjournals.org/content//ASN.863 2910165 Performed By: #### 2 4321-2 #### SAKSHI Whalen ([id number]) [facility] ([facility]) [address] [place] [address] Glucose [Mass/Vol] 107 mg/dL High 74-99 [facility] Comment on above: Performed By: #### 2 4321-2 #### SAKSHI Whalen ([id number]) [facility] ([facility]) [address] [place] [address] Potassium [Moles/Vol] 4.4 mmol/L Normal 3.5-5.3 [facility] Comment on above: Performed By: #### 2 4321-2 #### SAKSHI Whalen ([id number]) [facility] ([facility]) [address] [place] [address] Sodium [Moles/Vol] 140 mmol/L Normal 136-145 [facility] Comment on above: Performed By: #### 2 4321-2 #### SAKSHI Whalen ([id number]) [facility] ([facility]) [address] [place] [address] Urea nitrogen [Mass/Vol] 20 mg/dL Normal 6-23 [facility] Comment on above: Performed By: #### 2 4321-2 #### SAKSHI Whalen ([id number]) [facility] ([facility]) [address] [place] [address] CBC panel Auto (Bld)on 04-01 Erythrocyte distribution width (RBC) [Ratio] 14.3 % Normal 11.5-14.5 [facility] Comment on above: Performed By: #### 5 8410-2 #### SAKSHI Whalen ([id number]) [facility] ([facility]) [address] [place] [address] Hematocrit (Bld) [Volume fraction] 44.3 % Normal 41.0-52.0 [facility] Comment on above: Performed By: #### 5 8410-2 #### SAKSHI Whalen ([id number]) [facility] ([facility]) [address] [place] [address] Hemoglobin (Bld) [Mass/Vol] 14.2 g/dL Normal 13.5-17.5 [facility] Comment on above: Performed By: #### 5 8410-2 #### SAKSHI Whalen ([id number]) [facility] ([facility]) [address] [place] [address] MCH (RBC) [Entitic mass] 27.8 pg Normal 26.0-34.0 [facility] Comment on above: Performed By: #### 5 8410-2 #### SAKSHI Whalen ([id number]) [facility] ([facility]) [address] [place] [address] MCHC (RBC) [Mass/Vol] 32.1 g/dL Normal 32.0-36.0 [facility] Comment on above: Performed By: #### 5 8410-2 #### SAKSHI Whalen ([id number]) [facility] ([facility]) [address] [place] [address] MCV (RBC) [Entitic vol] 87 fL Normal 80-100 U [facility] Comment on above: Performed By: #### 5 8410-2 #### SAKSHI Whalen ([id number]) [facility] ([facility]) [address] [place] [address] Nucleated RBC/100 WBC (Bld) [Ratio] 0.0 /100 WBCs Normal 0.0-0.0 [facility] Comment on above: Performed By: #### 5 8410-2 #### SAKSHI Whalen ([id number]) [facility] ([facility]) [address] [place] [address] Platelets (Bld) [#/Vol] 237 x10*3/uL Normal 150-450 [facility] Comment on above: Performed By: #### 5 8410-2 #### SAKSHI Whalen ([id number]) [facility] ([facility]) [address] [place] [address] RBC (Bld) [#/Vol] 5.11 x10*6/uL Normal 4.50-5.90 [facility] Comment on above: Performed By: #### 5 8410-2 #### SAKSHI Whalen ([id number]) [facility] ([facility]) [address] [place] [address] WBC (Bld) [#/Vol] 5.8 x10*3/uL Normal 4.4-11.3 [facility] Comment on above: Performed By: #### 5 8410-2 #### SAKSHI Whalen ([id number]) [facility] ([facility]) [address] [place] [address] CNPNon 04-01-2025 CNPN Telephone (AGCARDPOB) JG CHAHAL ([id number]) 1940 M Date Time Provider Department 04/01/25 ANURAG BAH AGCARDPOB During your visit today, we recorded the following information about you: Nicole Wolfe RN 04/01/2025 12:06 PM Signed Received fax from Perioperative Medicine. Blank form scanned to chart. Surgeon: Dr. Ochoa Surgery: Percutaneous thoracic spinal cord stimulator electrodes and generator placement Date: 04/10/25 Faxed/routed Dr. Bah's OV 03/23/25 addressing pre-operative recommendations to [phone]. VISH Londono Jennifer, LPN 04/10/2025 10:12 AM Signed Hebert called [facility] to notify Dr. Bah that patient was recommended by surgeon to hold Eliquis 7 days post procedure- patient has percutaneous thoracic spinal cord stimulator electrodes and generator placement. Maryellen Fischer LPN Allergies As of Date: 04/01/2025 Noted Allergy Reaction ADHESIVE 12/07/2011 4 - Hives CODEINE 07/18/2005 Comments: HEART PALPITATIONS DARVOCET-N 100 (PROPOXYPHENE N-AC*07/16/2006 5 - Intolerance Comments: Heart racing LATEX 08/24/2012 4 - Hives MEPERIDINE HCL 08/27/2009 Date Reviewed: 03/23/2025 Reviewed by: Anurag Bah MD - Fully Assessed Reason for Visit: Cardiac Clearance [4105] Prescriptions as of 04/10/2025 - nitroglycerin sublingual (NITROSTAT) 0.4 mg SL tablet Dissolve 1 tablet under the tongue every 5 minutes as needed for chest pain. - baclofen 10 mg tablet Take 1 tablet by mouth at bedtime as needed (leg cramps.). - losartan (COZAAR) 50 mg tablet Take 1 tablet by mouth once daily. - metoprolol succinate ER (TOPROL XL) 25 mg 24 hr tablet Take 1 tablet by mouth once daily. - apixaban (ELIQUIS) 5 mg tab(s) Take 1 tablet by mouth two times a day. - amLODIPine (NORVASC) 2.5 mg tablet Take 1 tablet by mouth once daily. - dofetilide (TIKOSYN) 250 mcg capsule Take 1 capsule by mouth two times a day. - pantoprazole DR (PROTONIX) 40 mg tablet TAKE ONE TABLET BY MOUTH DAILY ON EMPTY STOMACH ONE-HALF HOUR BEFORE BREAKFAST - atorvastatin (LIPITOR) 40 mg tablet Take 1 tablet by mouth once daily. - clotrimazole-betamet hasone (LOTRISONE) cream Apply to affected area twice daily. APPLY TO AFFECTED AREA - blood sugar diagnostic (BLOOD GLUCOSE TEST) test strip Test blood sugar(s) 1 times daily. Dx: Type 2 DM - Controlled E11.42 Insulin: No - TENS unit and electrodes cmpk Us as instructed. - melatonin 3 mg tablet Take 1 tablet by mouth daily at bedtime. - Lancets lancets Test blood sugar(s) 1 times daily. Dx: Type 2 DM - Controlled E11.42 Insulin: No - CPAP Patient requesting new DME. Currently has a PAP device (2015 -- may be due for new device). Please fit with a Wisp (currently with Dream wisp and causing discomfort on top of head). Lifetime supplies. - Amoxicillin 500 mg tablet Take 4 tablets by mouth as needed (1 hour before the procedure). - docusate sodium (COLACE) 100 mg capsule AT BEDTIME - magnesium oxide (MAG-OX) 400 mg tablet Take 1 tablet by mouth once daily. - Cholecalciferol, Vitamin D3, 1,000 unit cap Take 1 capsule by mouth once daily. - vitamin b complex (B COMPLETE) ORAL Tab Take 1 tablet by mouth once daily. 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 pylori infection [A04.8] 05/30/2011 09/28/2011 SUMMARY [V999.95] 11/24/2011 03/28/2012 SUMMARY [V999.95] 04/06/2012 09/15/2017 Chest pain [R07.9] 04/07/2012 02/16/2016 Hyperlipidemia [E78.5] 04/07/2012 02/19/2017 DM (diabetes mellitus) [E11.9] 04/07/2012 02/16/2016 Hypercholesteremia [E78.00] 08/24/2012 GERD (gastroesophageal reflux disease) [K21.9] 08/24/2012 Rotator cuff tear, right [M75.101] 10/21/2012 05/12/2021 Rotator cuff (capsule) sprain [S43.429A] 12/28/2014 12/28/2014 Pain in joint, shoulder region [M25.519] 02/12/2015 02/16/2016 Actinic keratosis [L57.0] 02/17/2015 Other seborrheic keratosis [L82.1] 02/17/2015 11/06/2018 Neoplasm of uncertain behavior of skin [D48.5] 02/17/2015 11/06/2018 Hemangioma of skin and subcutaneous tissue [D18*02/17/2015 02/16/2016 Basal cell carcinoma [C44.91] 02/23/2015 11/06/2018 Well controlled type 2 diabe (more content not included)... Normal [facility] Staphylococcus aureus.methic illin resistant isolateon 04-01-2025 MRSA isol Org specific cx Ql (Nose) Test: Staphylococcus aureus/MRSA colonization, Culture Specimen Source: Nares/Axilla/Groin Specimen Type: Swab Specimen Date: 04/01/2025 1041 Result Date: 04/02/2025 1719 Result Status: Final result Abnormal: No Resulting Lab: [facility] [address] [place] [address] CULTURE No Staphylococcus aureus isolated Normal [facility] Comment on above: Performed By: #### 5 2969-3 #### SAKSHI Whalen ([id number]) [facility] ([facility]) [address] [place] [address] Comprehensive metabolic 2000 panelon 03-26-2025 Albumin [Mass/Vol] 4.3 g/dL Normal 3.9-4.9 [facility] Comment on above: Order Comment: Speci men Type: BLOOD SPECIMENOrdering Facility: [facility] Address: [address] [place] [address] Performed By: #### 2 4323-8, 77646-0 ####[facility] [id number] [place] [address] [place] ALP [Catalytic activity/Vol] 136 U/L High 38-113 [facility] Comment on above: Order Comment: Speci men Type: BLOOD SPECIMENOrdering Facility: [facility] [facility] Address: [address] [place] [address] Performed By: #### 2 4323-8, 34754-9 ####[facility] LABCLIA [id number] [place] [address] [place] ALT [Catalytic activity/Vol] 13 U/L Normal 10-54 [facility] Comment on above: Order Comment: Speci men Type: BLOOD SPECIMENOrdering Facility: [facility] Address: [address] [id number] Performed By: #### 2 4323-8, 10483-9 ####[facility] LABCLIA [id number] [address] [address] [place] Anion gap [Moles/Vol] 12 mmol/L Normal 8-15 [facility] Comment on above: Order Comment: Speci men Type: BLOOD SPECIMENOrdering Facility: [facility] Address: [address] [place] [address] Performed By: #### 2 4323-8, 33167-9 ####[facility] LABCLIA [id number] [place] [id number] [place] AST [Catalytic activity/Vol] 16 U/L Normal 14-40 [facility] Comment on above: Order Comment: Speci men Type: BLOOD SPECIMENOrdering Facility: [facility] Address: [address] [place] [address] Performed By: #### 2 4323-8, 16923-5 ####[facility] LABCLIA [id number] [place] [id number] [place] Bilirubin [Mass/Vol] 1.0 mg/dL Normal 0.2-1.3 [facility] Comment on above: Order Comment: Speci men Type: BLOOD SPECIMENOrdering Facility: [facility] Address: [address] [place], [place] [address] Performed By: #### 2 4323-8, 37460-4 ####[facility] LABCLIA [id number] [address] [address] [place] Calcium [Mass/Vol] 9.8 mg/dL Normal 8.5-10.2 [facility] Comment on above: Order Comment: Speci men Type: BLOOD SPECIMENOrdering Facility: [facility] Address: [address] [place], [place] [address] Performed By: #### 2 4323-8, 33618-6 ####[facility] LABCLIA [id number] [address] [address] [place] Chloride [Moles/Vol] 104 mmol/L Normal 98-107 [facility] Comment on above: Order Comment: Speci men Type: BLOOD SPECIMENOrdering Facility: [facility] Address: [address] [place] [address] Performed By: #### 2 4323-8, 49659-8 ####[facility] LABIA [id number] [place] [id number] [place] CO2 [Moles/Vol] 24 mmol/L Normal 22-30 [facility] Comment on above: Order Comment: Speci men Type: BLOOD SPECIMENOrdering Facility: [facility] Address: [address] [place] [address] Performed By: #### 2 4323-8, 05633-6 ####[facility] LABIA [id number] [place] [address] [place] Creatinine [Mass/Vol] 1.23 mg/dL High 0.73-1.22 [facility] Comment on above: Order Comment: Speci men Type: BLOOD SPECIMENOrdering Facility: [facility] Address: [address] [place] [address] Performed By: #### 2 4323-8, 13188-1 ####[facility] LABIA [id number] [place] [address] [place] Creatinine and Glomerular filtration rate.predicted panel (S/P/Bld) 58 mL/min/1.73m??? Low >=60 [facility] Comment on above: Order Comment: Speci men Type: BLOOD SPECIMENOrdering Facility: [facility] Address: [address] [place] [address] Result Comment: Janie mated Glomerular Filtration Rate (eGFR) is calculated using the 2020 CKD-EPI creatinine equation. This equation utilizes serum creatinine, sex, and age as parameters. The creatinine assay has traceable calibration to isotope dilution-mass spectrometry. Refer to KDIGO guidelines for clinical interpretation. In patients with unstable renal function, e.g. those with acute kidney injury, the eGFR may not accurately reflect actual GFR. Performed By: #### 2 4323-8, ####[facility] LABCLIA [id number] [address] [address] [place] Glucose [Mass/Vol] 96 mg/dL Normal 74-99 [facility] Comment on above: Order Comment: Baldev bailey Type: BLOOD SPECIMENOrdering Facility: [facility] Address: [address] [place] [address] Result Comment: The [place] Diabetes Association (ADA) provides guidance for cutoff values for fasting glucose and random glucose. The ADA defines fasting as no caloric intake for at least 8 hours. Fasting plasma glucose results between 100 to 125 mg/dL indicate increased risk for diabetes (prediabetes). Fasting plasma glucose results greater than or equal to 126 mg/dL meet the criteria for diagnosis of diabetes. In the absence of unequivocal hyperglycemia, results should be confirmed by repeat testing. In a patient with classic symptoms of hyperglycemia or hyperglycemic crisis, random plasma glucose results greater than or equal to 200 mg/dL meet the criteria for diagnosis of diabetes. Reference: Standards of Medical Care in Diabetes 2016, [place] [employer] Association. Diabetes Care. 2016.39(Suppl 1). Performed By: #### 2 4323-8, ####[facility] LABCLIA [id number] [facility] [address] [address] [place] Potassium [Moles/Vol] 4.5 mmol/L Normal 3.7-5.1 [facility] Comment on above: Order Comment: Baldev bailey Type: BLOOD SPECIMENOrdering Facility: [facility] Address: [address] [place] [address] Performed By: #### 2 4323-8, ####[facility]CL[facility] [id number] [facility] [address] [address] [place] Protein [Mass/Vol] 7.0 g/dL Normal 6.3-8.0 [facility] Comment on above: Order Comment: Speci men Type: BLOOD SPECIMENOrdering Facility: [facility] Address: [address] [place] [address] Performed By: #### 2 4323-8, 22028-1 ####[facility] LABCLIA [id number] [address] [place] [address] [place] Sodium [Moles/Vol] 140 mmol/L Normal 136-144 [facility] Comment on above: Order Comment: Speci men Type: BLOOD SPECIMENOrdering Facility: [facility] Address: [address] [place] [address] Performed By: #### 2 4323-8, 76657-5 ####[facility] LABCLIA [id number] [address], [facility] [place] Urea nitrogen [Mass/Vol] 15 mg/dL Normal 9-24 [facility] Comment on above: Order Comment: Speci men Type: BLOOD SPECIMENOrdering Facility: [facility] Address: [address] [place] [address] Performed By: #### 2 4323-8, 27226-7 ####[facility] LABCLIA [id number] [address] [address] [place] Lipid 1996 panelon 5 Cholesterol [Mass/Vol] 95 mg/dL Normal <[address] [facility] Comment on above: Order Comment: Speci men Type: BLOOD SPECIMENOrdering Facility: [facility] Address: [address] [place], [place] [address] Result Comment: <200 mg/dL, Desirable 200-239 mg/dL, Borderline high >239 mg/dL, High Performed By: #### 2 4323-8, 98456-5 ####[facility] LABCLIA [id number] [address] [place] [address] [place] Cholesterol in HDL [Mass/Vol] 35 mg/dL Low >39 [facility] Comment on above: Order Comment: Speci men Type: BLOOD SPECIMENOrdering Facility: [facility] Address: [address] [place] [address] Result Comment: 40-5 9 mg/dL, Acceptable >59 mg/dL, High: Negative risk factor for coronary heart disease <40 mg/dL, Low: Positive risk factor for coronary heart disease Performed By: #### 2 4323-8, 72986-4 ####[facility] LABCLIA [id number] [place] [address] [place] Cholesterol in LDL [Mass/Vol] 46 mg/dL Normal <100 [facility] Comment on above: Order Comment: Speci men Type: BLOOD SPECIMENOrdering Facility: [facility] Address: [address] [place] [address] Result Comment: <100 mg/dL, Optimal 100-129 mg/dL, Near optimal/above optimal 130-159 mg/dL, Borderline high 160-189 mg/dL, High >189 mg/dL, Very high Secondary prevention optimal LDL Cholesterol levels are recommended to be <70 mg/dL LDL cholesterol is calculated using the Donovan-NIH equation. Performed By: #### 2 4323-8, 26204-3 ####[facility] LABIA [id number] [place] [address] [place] Cholesterol in LDL/Cholesterol in HDL [Mass ratio] 1.31 {ratio} Normal <2.54 [facility] Comment on above: Order Comment: Sierrai men Type: BLOOD SPECIMENOrdering Facility: [facility] Address: [address] [place] [address] Result Comment: Refe rence: 1. National Cholesterol Education Program ATP III Guideline At-A-Glance Quick Desk Reference: National Heart, Lung, and Blood [place]. National Institutes of Health. 2001: NIH Publication No. 01-3305. 2. An International Atherosclerosis Society position paper: global recommendations for the management of dyslipidemia: executive summary, Atherosclerosis. 2014: 232(2):410-413. Performed By: #### 2 4323-8, 19269-2 ####[facility] LABCLIA [id number] [address] [place] [address] [place] Cholesterol in VLDL [Mass/Vol] 9 mg/dL Normal <30 [facility] Comment on above: Order Comment: Speci men Type: BLOOD SPECIMENOrdering Facility: [facility] Address: [address] [place] [address] Performed By: #### 2 4323-8, 38112-9 ####[facility] LABCLIA [id number] [address], [facility] [place] Cholesterol non HDL [Mass/Vol] 60 mg/dL Normal <130 [facility] Comment on above: Order Comment: Speci men Type: BLOOD SPECIMENOrdering Facility: [facility] Address: [address] [place] [address] Result Comment: <130 mg/dL, Optimal 130-159 mg/dL, Near optimal/above optimal 160-189 mg/dL, Borderline high 190-219 mg/dL, High >219 mg/dL, Very high Secondary prevention optimal non HDL Cholesterol levels are recommended to be <100 mg/dL Performed By: #### 2 4323-8, 12428-6 ####[facility] LABCLIA [id number] [place] [address] [place] Cholesterol.total/Choles terol in HDL [Mass ratio] 2.71 {ratio} Normal <5.10 [facility] Comment on above: Order Comment: Speci men Type: BLOOD SPECIMENOrdering Facility: [facility] Address: [address] [place] [address] Performed By: #### 2 4323-8, ####[facility] LABCLIA [id number] [address], [facility] [place] FASTING TIME 12 hrs Normal [facility] Comment on above: Order Comment: Speci men Type: BLOOD SPECIMENOrdering Facility: [facility] Address: [address] [place] [address] Performed By: #### 2 4323-8, 53414-1 ####[facility] LABCLIA [id number] [place] [id number] [place] Triglyceride [Mass/Vol] 61 mg/dL Normal <150 [facility] Comment on above: Order Comment: Speci men Type: BLOOD SPECIMENOrdering Facility: [facility] Address: [address] [place] [address] Result Comment: <150 mg/dL, Normal 150-199 mg/dL, Borderline high 200-499 mg/dL, High >499 mg/dL, Very high Performed By: #### 2 4323-8, 70430-7 ####[facility] LABIA [id number] [address] [place] CNOVon 03-23-2025 CNOV Office Visit (CARDWS) JG CHAHAL ([id number]) 1940 M Date Time Provider Department 03/23/25 11:20 AM ANURAG BAH During your visit today, we recorded the following information about you: Pulse Respiration Blood pressure Weight 77/minute 12/minute 114/66 95.7 kg Height 1.702 m Anurag Bah MD 03/23/2025 12:23 PM Signed [facility] Cardiology ([address]) [address] [facility] [phone] OUTPATIENT VISIT DATE 03/23/2025 PRIMARY CARE PHYSICIAN: Galindo Yuan [address] [place] [address] HISTORY OF PRESENT ILLNESS: Mr. Chahal is a 84 year old gentleman with known coronary artery disease and prior coronary intervention, paroxysmal atrial fibrillation currently maintained on Tikosyn, hypertension, dyslipidemia and diabetes ifc-[id number]-[id number] g who presents for routine follow-up. Patient continues to do well from a functional standpoint. He is limited by some back pain. He is scheduled for a spinal stimulator later this month. He reports that he had a stimulator for 5 days which significantly decreased his back pain and increased his functional capacity. He has not had symptoms concerning for CHF including PND, orthopnea, or lower extremity edema. He denies palpitations, lightheadedness, dizziness, or syncope. 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 Dr. Tee Clemons, Dermatology Basal cell carcinoma (BCC) of skin of face Mohs 04/2021 Cervical spondylosis 09/25/2022 Coronary atherosclerosis of unspecified type of vessel, [place] or graft 01/22/2006 moderate Diverticulosis of colon (without mention of hemorrhage) 07/18/2005 Dyslipidemia Dyspepsia and other specified disorders of function of stomach 07/18/2005 Chronic gastritis, Dyspepsia. Gastric ulcer, unspecified as acute or chronic, without mention of hemorrhage or perforation, with obstruction Generalized osteoarthrosis, unspecified site 07/18/2005 H. pylori infection 05/30/2011 HTN (hypertension) Hypertensive 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 4 chronic kidney disease, or unspecified chronic kidney disease 07/18/2005 Impaired fasting glucose 07/18/2005 Lipoprotein deficiencies 07/18/2005 Low HDL. Lumbago 08/26/2008 Dr. Odin Coon, [facility]. Rotator cuff tear, right 10/21/2012 Salmonella enteritis 08/2010 Type II or unspecified type diabetes mellitus without mention of complication, not stated as uncontrolled 07/08/2007 Unspecified essential hypertension 07/18/2005 PAST SURGICAL HISTORY Procedure Laterality Date ARTHROSCOPY KNEE DIAGNOSTIC W/WO SYNOVIAL BX SPX 11/2003 Arthroscopy, knee ARTHRP ACETBLR/PROX FEM PROSTC AGRFT/ALGRFT Right 08/07/2016 Hip replacement, total ARTHRP KNE CONDYLEANDPLATU MEDIALANDLAT COMPARTMENTS 2001 Knee replacement, total, left ARTHRP KNE CONDYLEANDPLATU MEDIALANDLAT COMPARTMENTS Left 10/01/2017 revision L TKA, [facility] CC ABLATION SVT 04/06/2017 EP study, ablation for A.fib. COLONOSCOPY FLX DX W/COLLJ SPEC WHEN PFRMD 12/24/2002 Colonoscopy COLONOSCOPY FLX DX W/COLLJ SPEC WHEN PFRMD 05/11/2011 Colonoscopy ESOPHAGOGASTRODUODEN OSCOPY TRANSORAL DIAGNOSTIC 03/18/2007 EGD ESOPHAGOGASTRODUODEN OSCOPY TRANSORAL DIAGNOSTIC 06/11/2007 EGD ESOPHAGOGASTRODUODEN OSCOPY TRANSORAL DIAGNOSTIC 05/11/2011 EGD LOPEZ W/O FACETEC FORAMOT/DSC 1/2 VRT SGM CRV 2000 Laminectomy, cervical LAMINECTOMY W/O FFD > 2 VERT SEG LUMBAR 11/05/2008 lumbar fusion LAMINOTOMY (HEMILAMINECTOMY), WITH DECOMPRESSION OF NERVE ROOT(S) Bilateral 05/02/2019 Revision hemilaminectomies L2,L3,L4-L5 LEFT HEART CATH,PERCUTANEOUS 01/22/2006 Cardiac cath, L heart LEFT HEART CATH,PERCUTANEOUS 05/31/2011 Cardiac cath, L heart LEFT HEART CATH,PERCUTANEOUS 11/27/2011 Cardiac cath, L heart LEFT HEART CATH,PERCUTANEOUS 11/27/2013 Cardiac cath, L heart NEUROPLASTY AND/TRANSPOS MEDIAN NRV CARPAL TUNNE 1995 Carpal tunnel decomp R/L OPEN REPAIR OF ROTATOR CUFF ACUTE 1996 Rotator cuff repair, bilateral OPEN REPAIR OF ROTATOR CUFF CHRONIC Left 12/28/2014 Left shoulder open rotator cuff repair and Sub Ac decompression SHX TOTAL SHOULDER REVERSE Left 02/01/2022 Left reverse total shoulder arthroplasty TRANSCATH STENT INIT VESSEL,PERCUT 08/26/2009 Transcath stent init vessel percut TRANSCATH STENT INIT VESSEL,PERCUT 11/16/2010 Transcath stent init vessel percut SOCIAL HISTO (more content not included)... Normal [facility] CNOVon 03-13-2025 CNOV Office Visit (DERSIN) JG CHAHAL ([id number]) 1940 M Date Time Provider Department 03/13/25 11:00 AM ATIF GRUBBS During your visit today, we recorded the following information about you: Pulse Blood pressure 80/minute 151/78 Atif Grubbs MD 03/13/2025 2:42 PM Signed MOHS MICROGRAPHIC OPERATIVE REPORT SERVICE DATE: 03/13/2025 SERVICE TIME: 11:00 AM LOCATION: { [place]:[facility],[address] [address] REFERRING PROVIDER: Miryam Henson [address] [facility] [address] PROCEDURE START TIME: 11:45 AM PROCEDURE END TIME: 12:30 PM SURGEON: Dr. Atif Grubbs RESIDENT: Dr. Pilar Joy CONSERVATION OR HERITAGE ARCHITECT: Marie Rangel MA ANTICOAGULANTS: Eliquis IMPLANTED DEVICES: Artificial Joints ANTIBIOTIC PROPHYLAXIS: Not required TRANSPLANT PATIENT: No PHOTOS: Photos taken VERIFICATION OF PROCEDURE: Procedure to be Performed: Mohs Surgery Patient Verified By: Name and Date of Site(s) Confirmed: Patient confirmed site from image in the EMR. Patient used mirror(s) to identify site(s). Patient verbalized agreement of surgical site(s). Site(s) Marked: Provider marking the site with patient involvement. Relevant documentation, images, implants or special equipment present: Yes SIGN IN COMMUNICATION: Completed Time Out: Team Confirms the Correct Patient, Correct Procedure, Correct Site(s) and Site Marked, Correct Position (if applicable). Time: 11:47 AM Affirmation of Time Out: Yes Sign out Discussion: Completed UNIVERSAL PROTOCOL / SAFETY CHECKLIST Procedure to be Performed: MOHS Sign In: A Moment of CARE was completed. Appropriate PPE (Personal Protective Equipment) worn by all providers involved with the procedure. Special equipment not required. Patient/Surrogate Stated/Verified: Patient name, Date of , Relevant allergies, and The intended procedure Time Out: Relevant labs, photos, and/or imaging studies have been reviewed. Intended patient and procedure match the source document(s) (e.g. consent, HANDP, associated studies [imaging, pathology]) match the intended patient and procedure. Consent obtained and matches the intended procedure. Yes. Correct side/site has been marked and visible. Medications required for this procedure are verified. Fire risk assessed and interventions discussed. Implants: are not applicable. Sign Out: Specimens are all correctly labeled and sent. All instruments, equipment, possible retained foreign bodies are accounted for. Yes. The post-procedure plan of care has been communicated to the patient or surrogate. LESION #1 Preoperative Diagnosis: BCC Nodular and Superficial of the right superior forehead Tumor Type: Primary Path Report Available at Bedside: Inside pathology report # [id number], Date of Biopsy: 02/18/2025, and Biopsy Performed By: Dr. Ruth Perla Pre-op Size: 0.6 cm - 1 cm, (0.7 cm X 0.8 cm) Lymphadenopathy: None Indication for Mohs: Anatomic Location where lesion is prone to recur, Type of tumor, and Age of patient Location: Area M: (Includes Cheeks, Forehead, Scalp, Neck, Jawline and Pretibial Surface) Preparation: Chlorhexidine LAYER A The patient was positioned, prepped with alcohol and draped in the usual manner. Anesthesia was obtained with local infiltration. The clinically apparent tumor was then debulked with a curette. A 1-2 mm rim of tissue was marked circumferentially around the defect. The area thus outlined was excised deep to the subcutis. Hemostasis was achieved with electrocautery. The specimen was oriented, subdivided into 2 sections, chromacoded and submitted for horizontal frozen sections. The patient tolerated the procedure well and no complications were noted. Upon review of the horizontal frozen sections for Layer A, no residual tumor was identified in A1, A2 . CLOSURE Rationale for Second Intention Healing: Given the superficial nature of the defect, the defect was allowed to heal by secondary intent. Diagnosis: Surgical defect secondary to Mohs micrographic surgery on a Primary tumor type from the right superior forehead (location of tumor). Post-op Defect Size: 1.0 x 1.1 cm SECONDARY INTENTION HEALING CLOSURE: Given the lack of redundant tissue surrounding the defect, the wound was allowed to heal by secondary intention. Final Size: SEE DEFECT SCC Staging N/A N/A LOCAL ANESTHETIC: 3 cc 1% Lidocaine HCl with Epinephrine 1:100,000 ESTIMATED BLOOD LOSS: Less Than Minimal Unless Noted Here. COMPLICATIONS: None, patient tolerated procedure well. TOTAL OPERATIVE TIME: 60 Minutes POST OP MEDS: None POST OP CARE: Pressure Dressing applied consisting of Contact Layer: Petrolatum ointment and Non stick Telfa pad Absorbent Layer: Gelfoam, Gauze pad Liquid Adhesive to surrounding skin to adhere dressing. Outer Layer: Hypafix MOHS POST OP INSTRUCTION (more content not included)... Normal [facility] CNOVon 03-12-2025 CNOV Office Visit (PODIWS) JG CHAHAL ([id number]) 1940 M Date Time Provider Department 03/12/25 8:15 AM JUAN TORRES PODIWS During your visit today, we recorded the following information about you: Holli Johnson LPN 03/12/2025 8:38 AM Signed AMB ROOMING INTAKE FLOWSHEET DATA Pain Pain Level: 2 Pain Location: Toe Description: Tenderness Duration Units: Months Frequency: Intermittent Intervention/Comfort measure: Reposition, Relaxation Patient presents with: Right Foot - Established Patient, Pain, Diabetic Foot Care Left Foot - Established Patient, Pain, Diabetic Foot Care HUNAG Ramirez Matthew 03/12/2025 8:38 AM Signed Last saw pcp: 12/23/24 Subjective: Patient presents to clinic c/o painful toenails. They state that the nails are especially painful with shoe gear and pressure. Patient reports that his right 5th toe is starting to bother him at night. He states he will often have to sleep with his foot out of the bed at night. No other pedal complaints at this time. Patient states no change in medications or medical history since last visit. Objective: Patient presents to clinic ambulating in boots Vasc: DP and PT pulses are palpable bilateral. CFT is less than 5 seconds bilateral. Skin temperature is warm to cool proximal to distal bilateral. There is mild edema or varicosities noted. Neuro: Protective sensation is intact to the foot and toes when tested with the 5.07 SWM bilateral. Vibratory sensation is decreased at the hallux IPJ bilateral. The hallux is downgoing bilateral. Derm: Nails 1-5 right and 1,2,4,5 are painful, discolored-yellow, thick, crumbly, dystrophic and with subungal debris. Skin is of normal turgor, texture and hair growth is decreased bilateral. There are callus along distal tuft of right 3rd toe. No ulcerations, scars, verruca or other lesions noted. Ortho: Muscle strength is 5/5 for all pedal groups tested. Ankle joint DF is decreased with the knee extended with no pain or crepitus noted. 1st MPJ ROM is decreased bilateral. Hammertoes are present to lesser toes of b/l feet Assessment: (B35.1) Onychomycosis (primary encounter diagnosis) (M79.674) Pain in toe of right foot (M79.675) Pain in toe of left foot (E11.49) Other diabetic neurological complication associated with type 2 diabetes mellitus (HCC) (L85.9) Hyperkeratosis (M20.41, M20.42) Hammer toes of both feet Plan: Patient was seen and evaluated. Nails 1-5 right and 1,2,4,5 left were debrided in length and thickness. Small bleed to right 3rd toe. Band aide applied. Recommend lambs wool between toes to prvent rubbing. Suspect pain in foot could be multiple factorial, not limited to hammertoes and neuropathy. Use lambs wool between toes. Could consider correction of hammertoes but given age and limited pain, will continue with conservative care. Betadine placed today in left 4th interspace. Apply as needed Diabetic shoes ordered. Patient will benefit from diabetic shoe given his neuropathy, presence of callus and presence of deformity of toes. Patient was instructed on the continued importance of diabetic foot care along with proper diet and keeping their blood sugar under control to prevent complications. Patient is to RTC in 3-4 months. VIVEK Aleman Matthew 03/12/2025 8:30 AM Signed Diabetes Foot Care Instructions When you have diabetes, proper foot care is very important. Poor foot care may lead to amputation of a foot or leg. As a person with diabetes, you are more vulnerable to foot problems, because diabetes can damage your nerves and reduce blood flow to your feet. Here are some diabetes foot care tips to follow: Wash and Dry Your Feet Daily Use mild soaps Use warm water Pat your skin dry; do not rub. Thoroughly dry your feet. After washing, use lotion on your feet to prevent cracking. Do not put lotion between your toes. Examine Your Feet Each Day Check the tops and bottoms of your feet. Have someone else look at your feet if you cannot see them. Check for dry, cracked skin. Look for blisters, cuts, scratches, or other sores. Check for redness, increased warmth, or tenderness when touching any area of your feet. Check for ingrown toenails, corns, and calluses. If you get a blister or sore from your shoes, do not pop it. Apply a bandage and wear a different pair of shoes. Take Care of Your Toenails Cut toenails after bathing, when they are soft. Cut toenails straight across and smooth with a nail file. Avoid cutting into the corners of toes. Do not cut cuticles. If you have neuropathy (or decreased sensation in your feet) a web programmer should always cut your toenails. Be Careful When Exercising Walk and exercise in comfortable shoes. Do not exercise when you have open sores on your feet. Protect Your Feet With Shoes a (more content not included)... Normal [facility] CNOVon 02-18-2025 CNOV Office Visit (STFLD) JG CHAHAL ([id number]) 1940 M Date Time Provider Department 02/18/25 9:40 AM RUTH PERLA STFLD During your visit today, we recorded the following information about you: Ruth Perla DO 02/18/2025 9:59 AM Signed Established Patient Visit Last Visit Date: 09/22/2024 CC: FBSE (waist upper patient) HPI: 84 year old male. 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 Skin as above. Physical Exam: Gen: AANDOx3, well appearing Skin exam performed including scalp, face, neck, chest, abdomen, back, arms, hands. Exam with noted findings of: -Scattered normal appearing brown macules and papules with reassuring features on dermoscopy -Trunk: scattered small red papules -Face, neck, trunk, UE with scattered polk-brown macules in sun-exposed distribution -Trunk, UE, LE with scattered warty brown stuck-on papules -5 mm erythematous patch on R superior forehead -1.1 cm irregular polk macule on L jaw line -5 mm irregular brown macule on R lateral elbow Assessment/Plan: ASSESSMENT/PLAN: 1. Skin exam, screening for cancer - ICD9: V76.43, ICD10: Z12.83 (primary diagnosis) -He declines FBSE and only wants upper body checked today -The ABCD's of melanoma were discussed. The patient is to perform monthly self exams and follow-up in dermatology for skin exams every 6 months. If any new lesions then the patient shall return sooner. Recommended SPF of 30 or greater. 2. Hx of nonmelanoma skin cancer - ICD9: V10.83, ICD10: Z85.828 -No evidence of recurrence at this time. Importance of monthly self skin checks emphasized. Recommend sun protection/avoidance , including hats and protective clothing, as well as sunscreen >=spf 30 qd. 3. Neoplasm of skin - ICD9: 239.2, ICD10: D49.2 -Shave Biopsy: The risks, benefits, indications, alternatives, and complications were discussed, and informed consent was obtained. Specifically, the expectation of a permanent scar and risk of possible infection were explained and understood. If the procedure were to be declined, the lesion could not be evaluated microscopically for diagnosis or abnormality, including cancer. Verbal consent was obtained. -See procedure notes. -SURGICAL PATHOLOGY 4. Multiple benign nevi - ICD9: 216.9, ICD10: D22.9 -Explanation of these lesions were dicussed. Benign reassurance was given. -If lesion should change, grow, darken, bleed, etc then discussed with patient to call and return to the office. 5. Lentigines - ICD9: 709.09, ICD10: L81.4 -Explanation of these lesions were dicussed. Benign reassurance was given. 6. 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 Benign reassurance was given. 7. Seborrheic keratosis - ICD9: 702.19, ICD10: L82.1 -Explanation of these lesions were dicussed. Benign reassurance was given. Procedures: Tangential biopsy via shave technique: A.) R superior forehead r/o ak vs scc vs bcc B) L jaw line r/o lentigo vs lentigo maligna C) R lateral elbow r/o an vs sk - Tangential biopsy by shave. The risks, benefits, indications, alternatives, and complications were discussed, and informed consent was obtained. Specifically, the expectation of a permanent scar and risk of possible infection were explained and understood. If the procedure were to be declined, the lesion could not be evaluated microscopically for diagnosis or abnormality, including cancer. In accordance with the [facility] policy, pre-procedure time out was performed to verify the correct patient, procedure, site, positioning, and implant(s) or special equipment. Site(s) were cleaned with alcohol and anesthetized with 1% lidocaine with epinephrine. Tangential biopsy via shave technique was performed. Hemostasis was obtained with aluminum chloride and/or electrocautery. Petrolatum and bandage were applied. The patient tolerated the procedure well without complications and with minimal blood loss. Written wound care instructions were reviewed and given. Specimen(s) sent to pathology. UNIVERSAL PROTOCOL / SAFETY CHECKLIST Procedure to be Performed: shave biopsy Sign In: A Moment of CARE was completed. Appropriate PPE (Personal Protective Equipment) worn by all providers involved w (more content not included)... Normal [facility] Pathology biopsy report Ryland (Tiss)on 02-18-2025 AP DISCLAIMER Normal [facility] Comment on above: Order Comment: Speci men Type: TISSUE SPECIMENOrdering Facility: [facility] Address: [address] [place] [address] Result Comment: Lila carroll Developed Test (LDT) Disclaimer: Performance characteristics of immunohistochemical, immunofluorescent, and chromogenic in-situ hybridization tests have been determined by the performing laboratory within [facility] Pathology and Laboratory Medicine Department ([facility], [facility], [facility], [facility], [facility], [facility], or [facility]) in a manner consistent with CLIA requirements. One or more of these tests may not have been cleared or approved by the FDA. [facility] is regulated under CLIA as qualified to perform high-complexity testing. These tests are used for clinical purposes. These should not be regarded as investigational or for research. Positive and negative controls stain appropriately. Performed By: #### 6 6121-5 ####[facility] [id number] [address] [address] [place] CASE REPORT Normal [facility] Comment on above: Order Comment: Speci men Type: TISSUE SPECIMENOrdering Facility: [facility] Address: [address] [place] [address] Result Comment: Surg [facility] Pathology Report Case: [id number] Authorizing Provider: Ruth Perla DO Collected: 02/18/2025 04:40 PM Ordering Location: Dermatology [facility] Received: 02/18/2025 07:48 PM Pathologist: Coco Min MD Specimens: A) - Skin, Shave Biopsy, A) R superior forehead B) - Skin, Shave Biopsy, B) L jaw line C) - Skin, Shave Biopsy, C) R lateral elbow Performed By: #### 6 6121-5 ####[facility] [id number] [address] [address] [place] CLINICAL HISTORY A) r/o ak vs scc vs bcc B) r/o lentigo vs lentigo maligna, C) r/o an vs sk Normal [facility] Comment on above: Order Comment: Speci men Type: TISSUE SPECIMENOrdering Facility: [facility] Address: [address] [place] [address] Performed By: #### 6 6121-5 ####[facility] [id number] [address] [place] FINAL DIAGNOSIS Normal [facility] Comment on above: Order Comment: Speci men Type: TISSUE SPECIMENOrdering Facility: [facility] Address: [address] [place] [address] Result Comment: A. S kin, right superior forehead, shave biopsy: - Basal cell carcinoma, superficial and nodular types. B. Skin, left jawline, shave biopsy: - Seborrheic keratosis. C. Skin, right lateral elbow, shave biopsy: - Seborrheic keratosis. CR 02/19/2025 at 1543 EDT Performed By: #### 6 6121-5 ####[facility] [id number] [address] [place] FINAL PERFORMING LAB Normal [facility] Comment on above: Order Comment: Speci men Type: TISSUE SPECIMENOrdering Facility: [facility] Address: [address] [place] [address] Result Comment: Diag nostic interpretation performed at: [facility], [address] [place], [place] [address] CLIA# [id number] Blanchard Grinder Operator: Damien Parker MD Performed By: #### 6 6121-5 ####[facility] [id number] [address] [place] GROSS DESCRIPTION Normal [facility] Comment on above: Order Comment: Speci men Type: TISSUE SPECIMENOrdering Facility: [facility] Address: [address] [place] [address] Result Comment: A. S kin, Shave Biopsy Received in formalin is a 0.7 x 0.5 x 0.1 cm shave of skin. On the skin surface there is a 0.7 cm polk-serrano flat area. The specimen is bisected. Totally submitted in one cassette. B. Skin, Shave Biopsy Received in formalin is a 1.3 x 0.8 x 0.2 cm shave of skin. On the skin surface there is a 1.3 cm polk-brown slightly elevated and firm area. The specimen is bisected. Totally submitted in one cassette. C. Skin, Shave Biopsy Received in formalin is a 0.6 x 0.5 x 0.1 cm shave of skin. On the skin surface there is a 0.5 cm polk-brown flat area. The specimen is bisected. Totally submitted in one cassette. [facility] February 19, 2025 12:47 AM Gross examination performed at [facility], [address] [place] [address] Performed By: #### 6 6121-5 ####[facility] [id number] [address] Renetta 02-03-2025 CECIL Telephone (RHINANA) JG CHAHAL ([id number]) 1940 M Date Time Provider Department 02/03/25 RENAN BOWLING During your visit today, we recorded the following information about you: Mariella Kimball MA 02/03/2025 11:18 AM Signed Received a secure email from Marion ([email or web address]) that the patient has decided to have the permanent SCS implanted by Dr. Ochoa at . She clarified, since the Clinic, unfortunately, does not have access to the newest technology right now and we are not sure when they will have it. Dr. Bowling is aware of this, and is ok with it as it is what?s best for the patients in the long run! I already spoke with Dr. Ochoa?s office and they just requested that the clinical notes be faxed over to them, particularly all the work up, neuropsych, etc. All OV notes related to SCS, lumbar and thoracic XR/CT/MRI, and psych notes have been faxed to Dr. Ochoa's office at [phone] with confirmation received. Email has been forwarded to [facility] Imaging department to push over images to . Informed Marion (Rene Easley) via email that records have been faxed and images will be pushed to with confirmation received. Allergies As of Date: 02/03/2025 Noted Allergy Reaction ADHESIVE 12/07/2011 4 - Hives CODEINE 07/18/2005 Comments: HEART PALPITATIONS DARVOCET-N 100 (PROPOXYPHENE N-AC*07/16/2006 5 - Intolerance Comments: Heart racing LATEX 08/24/2012 4 - Hives MEPERIDINE HCL 08/27/2009 Date Reviewed: 01/14/2025 Reviewed by: Sonia Oconnell, VISH - Fully Assessed Reason for Visit: Permanent SCS will be referred to Dr. Ochoa at [Other] Cmt: Records faxed to Dr. Ochoa's Office Prescriptions as of 02/03/2025 - baclofen 10 mg tablet Take 1 tablet by mouth at bedtime as needed (leg cramps.). - losartan (COZAAR) 50 mg tablet Take 1 tablet by mouth once daily. - metoprolol succinate ER (TOPROL XL) 25 mg 24 hr tablet Take 1 tablet by mouth once daily. - apixaban (ELIQUIS) 5 mg tab(s) Take 1 tablet by mouth two times a day. - amLODIPine (NORVASC) 2.5 mg tablet Take 1 tablet by mouth once daily. - dofetilide (TIKOSYN) 250 mcg capsule Take 1 capsule by mouth two times a day. - pantoprazole DR (PROTONIX) 40 mg tablet TAKE ONE TABLET BY MOUTH DAILY ON EMPTY STOMACH ONE-HALF HOUR BEFORE BREAKFAST - atorvastatin (LIPITOR) 40 mg tablet Take 1 tablet by mouth once daily. - clotrimazole-betamet hasone (LOTRISONE) cream Apply to affected area twice daily. APPLY TO AFFECTED AREA - nitroglycerin sublingual (NITROSTAT) 0.4 mg SL tablet Dissolve 1 tablet under the tongue every 5 minutes as needed for chest pain. - blood sugar diagnostic (BLOOD GLUCOSE TEST) test strip Test blood sugar(s) 1 times daily. Dx: Type 2 DM - Controlled E11.42 Insulin: No - TENS unit and electrodes cmpk Us as instructed. - melatonin 3 mg tablet Take 1 tablet by mouth daily at bedtime. - Lancets lancets Test blood sugar(s) 1 times daily. Dx: Type 2 DM - Controlled E11.42 Insulin: No - CPAP Patient requesting new DME. Currently has a PAP device (2016 -- may be due for new device). Please fit with a Wisp (currently with Dream wisp and causing discomfort on top of head). Lifetime supplies. - Amoxicillin 500 mg tablet Take 4 tablets by mouth as needed (1 hour before the procedure). - docusate sodium (COLACE) 100 mg capsule AT BEDTIME - magnesium oxide (MAG-OX) 400 mg tablet Take 1 tablet by mouth once daily. - Cholecalciferol, Vitamin D3, 1,000 unit cap Take 1 capsule by mouth once daily. - vitamin b complex (B COMPLETE) ORAL Tab Take 1 tablet by mouth once daily. 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 pylori infection [A04.8] 05/30/2011 09/28/2011 SUMMARY [V999.95] 11/24/2011 03/28/2012 SUMMARY [V999.95] 04/06/2012 09/15/2017 Chest pain [R07.9] 04/07/2012 02/16/2016 Hyperlipidemia [E78.5] 04/07/2012 02/19/2017 DM (diabetes mellitus) [E11.9] 04/07/2012 02/16/2016 Hypercholesteremia [E78.00] 08/24/2012 GERD (gastroesophageal reflux disease) [K21.9] 08/24/2012 Rotator cuff tear, right [M75.101] 10/21/2012 05/12/2021 Rotator cuff (capsule) sprain [S43.429A] 12/28/2014 12/28/2014 Pain in joint, sh (more content not included)... Normal [facility] MR Thoracic spine WO contras ton 01-23-2025 IMPRESSION: Preserved vertebral heights. No suspicious marrow signal intensity. Visualized spinal cord demonstrates normal caliber and signal intensity. No high-grade spinal canal stenosis. Degenerative changes as above. T1/T2/STIR hyperintense lesion at T10 likely presenting an atypical hemangioma. No aggressive imaging features. T2 hypointense subcentimeter left lower pole renal cortical lesion might represent a cyst with hemorrhagic content. This imaging finding could be further evaluated with dedicated nonurgent ultrasound. Anatomic Thoracic/Lumbar Variant: None. L4-5 is considered the level of the iliac crest and assume there are 5 lumbar-type vertebrae. Supply Chain Planner: [facility] Transcribe Date/Time: Jan 23 2025 10:01A Dictated by : KARLA SRIVASTAVA MD This examination was interpreted and the report reviewed and electronically signed by: KARLA SRIVASTAVA MD on Jan 23 2025 10:21AM [facility] DIVISION OF RADIOLOGY * * *Final Report* * * DATE OF EXAM: Jan 23 2025 8:27AM [facility] 0325 - MRI THORACIC SPINE WO IVCON / PROCEDURE REASON: multiple diagnoses * * * * Physician Interpretation * * * * EXAMINATION: MRI THORACIC SPINE WO IVCON CLINICAL HISTORY: Chronic midline thoracic back pain Chronic midline thoracic back pain TECHNIQUE: Routine thoracic spine MR protocol. MQ: MTSWO_3 COMPARISON: None. RESULT: Counting reference: Craniocervical and lumbosacral junctions. For the purposes of this report, Localizer images: Degenerative changes of visualized right glenohumeral and acromioclavicular joints. Susceptibility artifacts from left glenohumeral joint hardware. Susceptibility artifacts from anterior cervical fusion hardware. Susceptibility artifacts from lumbar posterior fusion hardware. Susceptibility artifacts from right hip replacement. T2 hyperintense left upper pole renal cortical lesion consistent with a renal cortical cyst. T2 hyperintense subcentimeter right hepatic lobe lesion likely secondary to simple hepatic cyst or hemangioma. T2 hyperintense left lower pole renal cortical cyst (localizer image 14) measuring 1.1 cm with similar imaging findings also seen on prior MRI lumbar spine Alignment: Alignment is anatomic. Cord: The visualized cord is within normal limits of signal intensity and morphology. Bone marrow signal/fracture: No evidence of pathologic marrow infiltration. No evidence of prior fracture. T1/T2/STIR hyperintense lesion at T10 (sagittal 13) likely representing an atypical hemangioma. Thoracic paraspinal soft tissues: The paraspinal soft tissues are within normal limits. Degenerative changes: Multilevel mild disc height reduction, endplate degenerative changes, and marginal osteophytes through the thoracic spine most pronounced at mid/lower thoracic region. Canal and foramina: No high-grade spinal canal or foraminal stenosis. Perineural cyst at T5-T6 on the right and T3-T4 and T4-T5 on the left. Small posterior disc bulge at T3-T4 with effacement of the anterior subarachnoid space and abutment of the ventral surface of the thoracic spinal cord (10:12). Small right paracentral disc protrusion at T6-T7 (10:29) with partial effacement of the anterior subarachnoid space without significant spinal canal stenosis. Small posterior central disc protrusion at T8-T9 (10:40) without significant spinal canal stenosis. Small right paracentral disc protrusion at T11-T12 (10:59) with partial effacement of the anterior subarachnoid space without significant spinal canal stenosis. [id number]-lhhladwv left foraminal stenosis at T9-T10. Mild to moderate right and mild left foraminal stenosis at T10-T11. DIVISION OF RADIOLOGY Provider, [facility] [place] - 01/23/2025 * * *Final Report* * * DATE OF EXAM: Jan 23 2025 8:27AM [facility] 0325 - MRI THORACIC SPINE WO IVCON / PROCEDURE REASON: multiple diagnoses * * * * Physician Interpretation * * * * EXAMINATION: MRI THORACIC SPINE WO IVCON CLINICAL HISTORY: Chronic midline thoracic back pain Chronic midline thoracic back pain TECHNIQUE: Routine thoracic spine MR protocol. MQ: [id number]_3 COMPARISON: None. RESULT: Counting reference: Craniocervical and lumbosacral junctions. For the purposes of this report, Localizer images: Degenerative changes of visualized right glenohumeral and acromioclavicular joints. Susceptibility artifacts from left glenohumeral joint hardware. Susceptibility artifacts from anterior cervical fusion hardware. Susceptibility artifacts from lumbar posterior fusion hardware. Susceptibility artifacts from right hip replacement. T2 hyperintense left upper pole renal cortical lesion consistent with a renal cortical cyst. T2 hyperintense subcentimeter right hepatic lobe lesion likely secondary to simple hepatic cyst or hemangioma. T2 hyperintense left lower pole renal cortical cyst (localizer image 14) measuring 1.1 cm with similar imaging findings also seen on prior MRI lumbar spine Alignment: Alignment is anatomic. Cord: The visualized cord is within normal limits of signal intensity and morphology. Bone marrow signal/fracture: No evidence of pathologic marrow infiltration. No evidence of prior fracture. T1/T2/STIR hyperintense lesion at T10 (sagittal 13) likely representing an atypical hemangioma. Thoracic paraspinal soft tissues: The paraspinal soft tissues are within normal limits. Degenerative changes: Multilevel mild disc height reduction, endplate degenerative changes, and marginal osteophytes through the thoracic spine most pronounced at mid/lower thoracic region. Canal and foramina: No high-grade spinal canal or foraminal stenosis. Perineural cyst at T5-T6 on the right and T3-T4 and T4-T5 on the left. Small posterior disc bulge at T3-T4 with effacement of the anterior subarachnoid space and abutment of the ventral surface of the thoracic spinal cord (10:12). Small right paracentral disc protrusion at T6-T7 (10:29) with partial effacement of the anterior subarachnoid space without significant spinal canal stenosis. Small posterior central disc protrusion at T8-T9 (10:40) without significant spinal canal stenosis. Small right paracentral disc protrusion at T11-T12 (10:59) with partial effacement of the anterior subarachnoid space without significant spinal canal stenosis. [id number] left foraminal stenosis at T9-T10. Mild to moderate right and mild left foraminal stenosis at T10-T11. IMPRESSION IMPRESSION: Preserved vertebral heights. No suspicious marrow signal intensity. Visualized spinal cord demonstrates normal caliber and signal intensity. No high-grade spinal canal stenosis. Degenerative changes as above. T1/T2/STIR hyperintense lesion at T10 likely presenting an atypical hemangioma. No aggressive imaging features. T2 hypointense subcentimeter left lower pole renal cortical lesion might represent a cyst with hemorrhagic content. This imaging finding could be further evaluated with dedicated nonurgent ultrasound. Anatomic Thoracic/Lumbar Variant: None. L4-5 is considered the level of the iliac crest and assume there are 5 lumbar-type vertebrae. Supply Chain Planner: [facility] Transcribe Date/Time: Jan 23 2025 10:01A Dictated by : KARLA SRIVASTAVA MD This examination was interpreted and the report reviewed and electronically signed by: KARLA SRIVASTAVA MD on Jan 23 2025 10:21AM EST [facility] Radiology Study observation (narrative) [facility] MR Thoracic spine WO contras tOrdered By: [facility] Provider on 01-23-2025 [facility] MRI THORACIC SPINE WO IVCONo n 01-23-2025 MRI THORACIC SPINE WO IVCON * * *Final Report* * * DATE OF EXAM: Jan 23 2025 8:27AM [facility] 0325 - MRI THORACIC SPINE WO IVCON / PROCEDURE REASON: multiple diagnoses * * * * Physician Interpretation * * * * EXAMINATION: MRI THORACIC SPINE WO IVCON CLINICAL HISTORY: Chronic midline thoracic back pain Chronic midline thoracic back pain TECHNIQUE: Routine thoracic spine MR protocol. MQ: MTSWO_3 COMPARISON: None. RESULT: Counting reference: Craniocervical and lumbosacral junctions. For the purposes of this report, Localizer images: Degenerative changes of visualized right glenohumeral and acromioclavicular joints. Susceptibility artifacts from left glenohumeral joint hardware. Susceptibility artifacts from anterior cervical fusion hardware. Susceptibility artifacts from lumbar posterior fusion hardware. Susceptibility artifacts from right hip replacement. T2 hyperintense left upper pole renal cortical lesion consistent with a renal cortical cyst. T2 hyperintense subcentimeter right hepatic lobe lesion likely secondary to simple hepatic cyst or hemangioma. T2 hyperintense left lower pole renal cortical cyst (localizer image 14) measuring 1.1 cm with similar imaging findings also seen on prior MRI lumbar spine Alignment: Alignment is anatomic. Cord: The visualized cord is within normal limits of signal intensity and morphology. Bone marrow signal/fracture: No evidence of pathologic marrow infiltration. No evidence of prior fracture. T1/T2/STIR hyperintense lesion at T10 (sagittal 13) likely representing an atypical hemangioma. Thoracic paraspinal soft tissues: The paraspinal soft tissues are within normal limits. Degenerative changes: Multilevel mild disc height reduction, endplate degenerative changes, and marginal osteophytes through the thoracic spine most pronounced at mid/lower thoracic region. Canal and foramina: No high-grade spinal canal or foraminal stenosis. Perineural cyst at T5-T6 on the right and T3-T4 and T4-T5 on the left. Small posterior disc bulge at T3-T4 with effacement of the anterior subarachnoid space and abutment of the ventral surface of the thoracic spinal cord (10:12). Small right paracentral disc protrusion at T6-T7 (10:29) with partial effacement of the anterior subarachnoid space without significant spinal canal stenosis. Small posterior central disc protrusion at T8-T9 (10:40) without significant spinal canal stenosis. Small right paracentral disc protrusion at T11-T12 (10:59) with partial effacement of the anterior subarachnoid space without significant spinal canal stenosis. Tvwe-ah-bkjwwgoi left foraminal stenosis at T9-T10. Mild to moderate right and mild left foraminal stenosis at T10-T11. IMPRESSION: Preserved vertebral heights. No suspicious marrow signal intensity. Visualized spinal cord demonstrates normal caliber and signal intensity. No high-grade spinal canal stenosis. Degenerative changes as above. T1/T2/STIR hyperintense lesion at T10 likely presenting an atypical hemangioma. No aggressive imaging features. T2 hypointense subcentimeter left lower pole renal cortical lesion might represent a cyst with hemorrhagic content. This imaging finding could be further evaluated with dedicated nonurgent ultrasound. Anatomic Thoracic/Lumbar Variant: None. L4-5 is considered the level of the iliac crest and assume there are 5 lumbar-type vertebrae. Supply Chain Planner: [facility] Transcribe Date/Time: Jan 23 2025 10:01A Dictated by : KARLA SRIVASTAVA MD This examination was interpreted and the report reviewed and electronically signed by: KARLA SRIVASTAVA MD on Jan 23 2025 10:21AM EST [id number] CN Normal [facility] CNOVon 01-21-2025 CNOV Office Visit (PNMDNA) JG CHAHAL ([id number]) 1940 M Date Time Provider Department 01/21/25 10:30 AM RENAN BOWLING PNMDNA During your visit today, we recorded the following information about you: Pulse Weight 89/minute 96.9 kg Renan Bowling MD 01/21/2025 11:31 AM Signed [facility] Date: January 21, 2025 - 10:24 AM Chief Complaint: Back and leg pain SUBJECTIVE: Mr. Chahal presents to the [facility] for a follow up appointment regarding chronic back and predominant left lower extremity pain. The patient is here for follow-up for removal of the spinal cord stimulator leads. The patient had a trial for 7 days. Overall he states up to 80% improvement of pain. He also states he was able to engage in more purposeful activities. The pain is described as just hurts and is rated as 2 on a scale of 0-10. Symptoms interfere with physical activity, walking, and sitting. The pain is exacerbated by movement, sitting, and standing. The pain is mitigated by lying down staight. REVIEW OF SYSTEMS: Constitutional: (-) Fever (-) Night Sweats (-) Weight Gain (-) Weight Loss (-) Fatigue Cardiovascular: (-) Chest Pain (-) Palpitations (-) Lightheadedness (-) Swelling of Ankles (-) Hx Heart Surgery Respiratory: (-) Shortness of Breath (-) Cough (-) Wheezing (-) Snoring Gastrointestinal: (-) Incontinence (-) Abdominal Pain (-) Diarrhea (-) Constipation (-) Nausea/Vomiting (-) Heart Burn Endocrine: (-) Thyroid Disorder (-) Diabetes Hematologic: (-) Prolonged Bleeding (-) Easy Bruising Genitourinary: (-) Incontinence (-) Frequency (-) Urinary Urgency Skin: (-) Rashes (-) Itching (-) Other Lesions Neurologic: (-) Headache (-) Double Vision (-) Confusion (-) Paralysis Psychiatric: (-) Depression (-) Anxiety (-) Delusions (-) Hallucinations (-) Personal History of Alcohol or Substance Abuse (-) Family History of Alcohol or Substance Abuse PROMIS 12/24/2024 PROMIS CAT Pain Interference PROMIS Adult Short Form-Global Health Score (Mental) 48.3 (Very Good) 02/13/2024 02/14/2023 PROMIS CAT Physical Function T-Score 38 (moderate dysfunction) 47 (within normal limits) Percentile 12 38 Proxy-reported Percentiles provide an indication of how a patient?s score ranks in relation to the [place] general population. > 31st percentile is within normal limits or better * < 31st percentile is at least ? 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 Dr. Tee Clemons, Dermatology Basal cell carcinoma (BCC) of skin of face Mohs 04/2021 Cervical spondylosis 09/25/2022 Coronary atherosclerosis of unspecified type of vessel, [place] or graft 01/22/2006 moderate Diverticulosis of colon (without mention of hemorrhage) 07/18/2005 Dyslipidemia Dyspepsia and other specified disorders of function of stomach 07/18/2005 Chronic gastritis, Dyspepsia. Gastric ulcer, unspecified as acute or chronic, without mention of hemorrhage or perforation, with obstruction Generalized osteoarthrosis, unspecified site 07/18/2005 H. pylori infection 05/30/2011 HTN (hypertension) Hypertensive 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 4 chronic kidney disease, or unspecified chronic kidney disease 07/18/2005 Impaired fasting glucose 07/18/2005 Lipoprotein deficiencies 07/18/2005 Low HDL. Lumbago 08/26/2008 Dr. Odin Coon, [facility]. Rotator cuff tear, right 10/21/2012 Salmonella enteritis 08/2010 Type II or unspecified type diabetes mellitus without mention of complication, not stated as uncontrolled 07/08/2007 Unspecified essential hypertension 07/18/2005 PAST SURGICAL HISTORY Procedure Laterality Date ARTHROSCOPY KNEE DIAGNOSTIC W/WO SYNOVIAL BX SPX 11/2003 Arthroscopy, knee ARTHRP ACETBLR/PROX FEM PROSTC AGRFT/ALGRFT Right 08/07/2016 Hip replacement, total ARTHRP KNE CONDYLEANDPLATU MEDIALANDLAT COMPARTMENTS 2002 Knee replacement, total, left ARTHRP KNE CONDYLEANDPLATU MEDIALANDLAT COMPARTMENTS Left 10/01/2017 revision L TKA, [facility] CC ABLATION SVT 04/06/2017 EP study, ablation for A.fib. COLONOSCOPY FLX DX W/COLLJ (more content not included)... 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 Post Anesthesia Patient Status Patient Evaluation: PACU. PACU/ICU Patient Condition: stable. Anticipated Disposition: phase 2 then home. Neurological Status: aware and responsive. Pulmonary Status: breathing comfortably on room air Airway Control: returned to baseline unsupported. Cardiovascular Status: stable. Pain Management: clinically adequate - multimodal analgesia pain management approach Postoperative Hydration: acceptable. Intraoperative Events: no significant anesthesia events Recommendation: continue current plan of care. Anesthesia Observations No Documentation SIGNATURE: Ignacio Francisco MD PATIENT NAME: Jg Chahal DATE: January 14, 2025 TIME: 10:07 AM CSN: [id number] [facility] ANES PRE-OPon 01-14-2025 ANES PRE-OP HNO ID: [id number] Author: IGNACIO FRANCISCO MD Service: Anesthesiology Author Type: Physician Type: Anesthesia Preprocedure Evaluation Filed: 01/14/2025 07:34 Note Text: ANESTHESIOLOGY DAY OF SURGERY NOTE : 1940 Procedure Information Date/Time: 01/14/25729 Procedure: PERCUTANEOUS IMPLANT LEAD NEUROSTIM EPIDURAL TRIAL (Spine) Location: [place] OR02 / [place] Surgeons: Renan Bowling MD Estimated body mass index is 31.32 kg/m? as calculated from the following: Height as of this encounter: 170.2 cm (5' 7). Weight as of this encounter: 90.7 kg (200 lb). Most recent hematocrit and potassium results: HCT 42.0 01/01/2024 Potassium 4.2 12/15/2024 Relevant Problems ANESTHESIA (+) ETHAN on CPAP CARDIO (+) Coronary artery disease of [place] artery of [place] heart with stable angina pectoris (HCC) (+) Paroxysmal atrial fibrillation (HCC) (+) Stable angina (HCC) GI (+) GERD (gastroesophageal reflux disease) -RENAL (+) Hypertensive 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 4 chronic kidney disease, or unspecified chronic kidney disease NEURO-PSYCH (+) Personal history of other malignant neoplasm of skin PULMONARY (+) ETHAN on CPAP I - PHYSICAL EVALUATION AIRWAY Patient intubated: No. Tracheostomy tube not present Mallampati: II. TM distance: >3 FB. Neck ROM: limited extension. Mouth opening: adequate. Short neck: no. Thick neck: no DENTAL Normal dental observations. Dentures, upper: complete. Dentures, lower: complete. Additional exam findings: yes. CARDIOVASCULAR Rhythm: regular Rate: normal PULMONARY Breath sounds clear to auscultation. II - ANESTHESIA PLAN ASA Score: 3 Anesthetic Plan: MAC NPO Status: adequate Anesthetic plan additional comments: Has hardware in low back and neck from spine surgeries. Vyay-sa-vkaa rotation is limited.. Beta Rebeca Monitoring Plan Monitoring plan: Standard ASA. Post Procedure Analgesic Plan Postoperative analgesic plan: parenteral or oral opioids and multimodal analgesia. Informed Consent Anesthetic risks, benefits, alternatives, personnel and consent discussed: yes. Patient / Responsible Libertarian agrees to proceed: yes Patient / Surrogate agrees to blood products: blood products not planned DNR status not reviewed with patient and/or family prior to surgery. Significant changes in the patient condition since the History and Physical, not otherwise documented in primary service progress note: no. Potential Anesthesia issues that may suggest increased risk of complications or contraindication to planned procedure: none. Vitals Value Taken Time BP 143/65 01/14/25 0630 Pulse 58 01/14/25 0630 Resp 18 01/14/25 0630 Temp 36.5 ?C (97.7 ?F) 01/14/25 0630 SpO2 98 % 01/14/2530 Facility-Administere d Medications as of 01/14/2025 Medication Dose Route Frequency NaCl 0.9% iv infusion 30 mL/hr INTRAVENOUS CONTINUOUS ceFAZolin iv piggyback 1 g in D5W (iso-osmotic) 50 mL (ANCEF) 1 g INTRAVENOUS ONCE Outpatient Medications as of 01/14/2025 Medication Sig amLODIPine (NORVASC) 2.5 mg tablet Take 1 tablet by mouth once daily. dofetilide (TIKOSYN) 250 mcg capsule Take 1 capsule by mouth two times a day. pantoprazole DR (PROTONIX) 40 mg tablet TAKE ONE TABLET BY MOUTH DAILY ON EMPTY STOMACH ONE-HALF HOUR BEFORE BREAKFAST atorvastatin (LIPITOR) 40 mg tablet Take 1 tablet by mouth once daily. melatonin 3 mg tablet Take 1 tablet by mouth daily at bedtime. CPAP Patient requesting new DME. Currently has a PAP device (2015 -- may be due for new device). Please fit with a Wisp (currently with Dream wisp and causing discomfort on top of head). Lifetime supplies. docusate sodium (COLACE) 100 mg capsule AT BEDTIME magnesium oxide (MAG-OX) 400 mg tablet Take 1 tablet by mouth once daily. Cholecalciferol, Vitamin D3, 1,000 unit cap Take 1 capsule by mouth once daily. vitamin b complex (B COMPLETE) ORAL Tab Take 1 tablet by mouth once daily. clotrimazole-betamet hasone (LOTRISONE) cream Apply to affected area twice daily. APPLY TO AFFECTED AREA nitroglycerin sublingual (NITROSTAT) 0.4 mg SL tablet Dissolve 1 tablet under the tongue every 5 minutes as needed for chest pain. blood sugar diagnostic (BLOOD GLUCOSE TEST) test strip Test blood sugar(s) 1 times daily. Dx: Type 2 DM - Controlled E11.42 Insulin: No TENS unit and electrodes cmpk Us as instructed. Lancets lancets Test blood sugar(s) 1 times daily. Dx: Type 2 DM - Controlled E11.42 Insulin: No Amoxicillin 500 mg tablet Take 4 tablets by mouth as needed (1 hour before the procedure). I have interviewed and examined the patient. I have reviewed the medical record and/or the pre-anesthesia evaluation, pertinent labs, and test results. This contains updated information obtained within 48 hours of Surgery/Procedure. SIGNATURE: Ignacio Francisco MD PATIENT NAME: Jg Chahal DATE: January 14, 2025 TIME: 6:52 AM CSN: [id number] (more content not included)... Normal [facility] HISTORY PHYSICALon HISTORY PHYSICAL HNO ID: [id number] Author: RENAN BOWLING MD Service: Pain Management Author Type: Physician Type: H&P Filed: 01/14/2025 07:15 Note Text: HISTORY AND PHYSICAL EXAMINATION PATIENT NAME: Jg Chahal DATE of SERVICE: 01/14/2025 Jg Chahal is here for the pain mangement procedure. The patients presents with persistent pain complaints. Jg Chahal denies any interval changes or new pain complaints or focal neurologic deficits. 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 Dr. Tee Clemons, Dermatology Basal cell carcinoma (BCC) of skin of face Mohs 04/2021 Cervical spondylosis 09/25/2022 Coronary atherosclerosis of unspecified type of vessel, [place] or graft 01/22/2006 moderate Diverticulosis of colon (without mention of hemorrhage) 07/18/2005 Dyslipidemia Dyspepsia and other specified disorders of function of stomach 07/18/2005 Chronic gastritis, Dyspepsia. Gastric ulcer, unspecified as acute or chronic, without mention of hemorrhage or perforation, with obstruction Generalized osteoarthrosis, unspecified site 07/18/2005 H. pylori infection 05/30/2011 HTN (hypertension) Hypertensive 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 4 chronic kidney disease, or unspecified chronic kidney disease 07/18/2005 Impaired fasting glucose 07/18/2005 Lipoprotein deficiencies 07/18/2005 Low HDL. Lumbago 08/26/2008 Dr. Odin Coon, [facility]. Rotator cuff tear, right 10/21/2012 Salmonella enteritis 08/2010 Type II or unspecified type diabetes mellitus without mention of complication, not stated as uncontrolled 07/08/2007 Unspecified essential hypertension 07/18/2005 PAST SURGICAL HISTORY Procedure Laterality Date ARTHROSCOPY KNEE DIAGNOSTIC W/WO SYNOVIAL BX SPX 11/2003 Arthroscopy, knee ARTHRP ACETBLR/PROX FEM PROSTC AGRFT/ALGRFT Right 08/07/2016 Hip replacement, total ARTHRP KNE CONDYLEANDPLATU MEDIALANDLAT COMPARTMENTS 2002 Knee replacement, total, left ARTHRP KNE CONDYLEANDPLATU MEDIALANDLAT COMPARTMENTS Left 10/01/2017 revision L TKA, [facility] CC ABLATION SVT 04/06/2017 EP study, ablation for A.fib. COLONOSCOPY FLX DX W/COLLJ SPEC WHEN PFRMD 12/24/2002 Colonoscopy COLONOSCOPY FLX DX W/COLLJ SPEC WHEN PFRMD 05/11/2011 Colonoscopy ESOPHAGOGASTRODUODEN OSCOPY TRANSORAL DIAGNOSTIC 03/18/2007 EGD ESOPHAGOGASTRODUODEN OSCOPY TRANSORAL DIAGNOSTIC 06/11/2007 EGD ESOPHAGOGASTRODUODEN OSCOPY TRANSORAL DIAGNOSTIC 05/11/2011 EGD LOPEZ W/O FACETEC FORAMOT/DSC 1/2 VRT SGM CRV 2000 Laminectomy, cervical LAMINECTOMY W/O FFD > 2 VERT SEG LUMBAR 11/05/2008 lumbar fusion LAMINOTOMY (HEMILAMINECTOMY), WITH DECOMPRESSION OF NERVE ROOT(S) Bilateral 05/02/2019 Revision hemilaminectomies L2,L3,L4-L5 LEFT HEART CATH,PERCUTANEOUS 01/22/2006 Cardiac cath, L heart LEFT HEART CATH,PERCUTANEOUS 05/31/2011 Cardiac cath, L heart LEFT HEART CATH,PERCUTANEOUS 11/27/2011 Cardiac cath, L heart LEFT HEART CATH,PERCUTANEOUS 11/27/2013 Cardiac cath, L heart NEUROPLASTY AND/TRANSPOS MEDIAN NRV CARPAL TUNNE 1995 Carpal tunnel decomp R/L OPEN REPAIR OF ROTATOR CUFF ACUTE 1996 Rotator cuff repair, bilateral OPEN REPAIR OF ROTATOR CUFF CHRONIC Left 12/28/2014 Left shoulder open rotator cuff repair and Sub Ac decompression SHX TOTAL SHOULDER REVERSE Left 02/01/2022 Left reverse total shoulder arthroplasty TRANSCATH STENT INIT VESSEL,PERCUT 08/26/2009 Transcath stent init vessel percut TRANSCATH STENT INIT VESSEL,PERCUT 11/16/2010 Transcath stent init vessel percut Social History Tobacco Use Smoking status: Never Smokeless tobacco: Never Vaping Use Vaping status: Never Used Substance Use Topics Alcohol use: No Drug use: No FAMILY HISTORY Problem Relation Age of Onset other (CVA) Mother d 89 stroke other (HTN) Mother other (CHF) Mother Ischemic Heart Disease Father Skin Cancer Father bcc other (Lymphoma) Father d 65 lymphoma other (Skin Ca) Brother Melanoma Brother other (Tremors) Brother Cancer Daughter ovarian Diabetes Maternal Grandmother other (Tremors) Brother Melanoma Other maternal uncle ALLERGIES Allergen Reactions Adhesive Hives Codeine HEART PALPITATIONS Darvocet-N 100 [Pro* Intolerance Heart racing Latex Hives Meperidine Hcl Current Facility-Administere d Medications Medication Dose Route Frequency NaCl 0.9% iv infusion 30 mL/hr INTRAVENOUS CONTINUOUS ceFAZolin iv piggyback 1 g in D5W (iso-osmotic) 50 mL (ANCEF) 1 g INTRAVENOUS ONCE Physical Exam: Performed in conjunction with observation. The patient is alert and oscar (more content not included)... [facility] OPERATIVE NOon 01-14-2025 OPERATIVE NO HNO ID: [id number] Author: RENAN BOWLING MD Service: Pain Management Author Type: Physician Type: Operative Report Filed: 01/14/2025 08:50 Note Text: PATIENT NAME: Jg Chahal SERVICE DATE: 01/14/2025 PREOPERATIVE DIAGNOSIS Postlaminectomy syndrome Lumbar radiculopathy Lumbar canal stenosis POSTOPERATIVE DIAGNOSIS Same PROCEDURE: PERCUTANEOUS SPINAL CORD STIMULATOR TRIAL (ANS/MEDTRONIC/BS) ANESTHESIA: MAC PREOPERATIVE ANTIBIOTICS: 1 g IV given 30 minutes prior to procedure start, see anesthesia record for time. DESCRIPTION OF PROCEDURE: The patient was brought to the OR. The patient was positioned prone on the fluoroscopy table. Monitored anesthesia care was initiated by the anesthesia team. The lumbar spine area was prepped and draped in a sterile fashion. In AP projection, T12-L1 interspace was identified and entry point was marked. Skin anesthesia was achieved using 10 cc of 0.25% Marcaine with Epinepherine. A 14 3 1/2 inch Tuohy needle was inserted at the T12-L1 interspace using a paramedian approach. The needle was slowly advanced in a 45-degree angle down towards the ligamentum flavum. Once the ligamentum flavum was reached, a loss of resistance syringe was attached. The needle was slowly advanced into the dorsal epidural space. After loss of resistance was noted, negative aspiration for blood or CSF was confirmed . A 8-lead percutaneous lead was inserted through the needle and slowly advanced in the epidural space under fluoroscopy. The distal lead was eventually placed at the bottom of T7. A second lead was then placed in a similar fashion and placed immediately adjacent to the first lead with the distal tip placed at the top of T8. Both leads were then connected to allow for test stimulation and confirmed the correct impedence. The lead was sutured in place with a 0-silk suture. A sterile dressing was applied. The patient was transferred to the postoperative area in stable condition. Jg Whalen Tirso was taken to the Post-block Recovery Area for further observation. EBL: nil Start time: 7:58 AM End time: 8:43 AM I was present the entire time and personally performed the procedure. SIGNATURE: Renan Bowling MD DATE: January 14, 2025 TIME: 8:47 AM [facility] XR FLUOROSCOPYon 01-14-2025 XR FLUOROSCOPY * * *Final Report* * * DATE OF EXAM: Jan 14 2025 8:43AM MDR [id number] - XR FLUOROSCOPY / PROCEDURE REASON: PERCUTANEOUS IMPLANT LEAD NEUROSTIMULATOR TRIAL INSERTION * * * * Physician Interpretation * * * * EXAMINATION: XR FLUOROSCOPY CLINICAL INFORMATION: 84 years old Male with PERCUTANEOUS IMPLANT LEAD NEUROSTIMULATOR TRIAL INSERTION Fluoroscopic Radiation Summary: Plane A, Air Kerma: 109.8 mGy Dose Area Product (DAP): Fluoro time: 1:32 min:sec RESULT/ IMPRESSION: Fluoroscopic images obtained during placement of spinal stimulator. Please refer to the performing LIP's report for details. Supply Chain Planner: [facility] Transcribe Date/Time: Jan 14 2025 9:45A Dictated by : MONTSE CARMEN DO This examination was interpreted and the report reviewed and electronically signed by: MONTSE CARMEN DO on Jan 14 2025 9:46AM EST [id number] CN [facility] CNCOon 01-02-2025 CNCO Letter Text [facility] CNPNon 01-02-2025 CNPN Telephone (PNMDNA) JG CHAHAL ([id number]) 1940 M Date Time Provider Department 01/02/25 RENAN BOWLING During your visit today, we recorded the following information about you: Petr Mccall RN 01/02/2025 2:04 PM Addendum Procedure: SCS Trial Procedure Date: 01/14/2025 Auth Status: DENIED Denial Rationale: Based on [employer] Supplemental Guidelines for Spinal Cord Stimulation and the information we have about your condition, you don't meet both of the criteria for a dorsal column stimulator device. The criteria are: (1) You have a diagnosis of one of the following: (a) failed back surgery syndrome, (b) complex regional pain syndrome, (c) ongoing and intense ischemic limb pain in an arm or leg due to blockages in your blood vessels (peripheral vascular disease) that can't be fixed with surgery, or (d) this is a last option to treat your moderate to severe nerve pain you've had for 12 or more months. And (2) you have all of the following: (a) screening completed by a team of healthcare providers from different medical specialties, (b) no untreated drug addiction problems, (c) clearance from a psychiatrist, psychologist, or other qualified mental health professional (such as master's or licensed clinical clinical social work therapist) to receive this device, (d) tried other ways to treat your pain and failed, (e) there is a known medical reason for your pain, and (f) you scored 21% or more on a standard disability test (Oswestry Disability Index) to evaluate your pain. 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 Hernandez 08/27/2024, Dr. Bowling 10/01/2024, Neurology - Dr. Manning 01/18/2024 No untreated drug addiction problems: Narc Score 010 Clearance from psychiatrist, psychologist, or other qualified mental health professional: Dr. Pop appointment 12/03/2024 with approval to proceed Tried other ways to treat pain and failed: s/p lumbar fusion, injections Known medical reason for your pain: Lumbar MRI 02/19/2024 (Multilevel degenerative changes resulting in primarily foraminal stenosis, most pronounced and advanced bilaterally at L5-S1 as well as moderate to advanced bilaterally spanning L2-L5.) Standard disability test score 21% or more Appeal faxed to [phone] (EXPEDITED). Secure email sent to [employer] Denials Support Team notifying of faxed appeal. Awaiting determination. Petr Mccall RN 01/06/2025 9:17 AM Signed Informed patient via telephone of SCS trial denial and expedited appeal. Patient verbalized understanding. Office to contact patient on Sunday, 01/09 with update. Petr Mccall RN 01/08/2025 12:34 PM Addendum Procedure: SCS Trial Procedure Date: 01/14/2025 Auth Status: APPROVED Secure email received from [employer] Denials Support Team: I am contacting you in order to inform you that we were advised from the insurance that your appeal filled on 01/02/2025 has been approved. Under auth# [id number] valid from 01/05/2025 - 07/05/2025. Attempted to contact patient via telephone without success. Left voicemail requesting return telephone call. Petr Mccall RN 01/08/2025 1:20 PM Signed Notified patient via telephone of procedure approval. Patient verbalized understanding and voiced no additional questions/concerns. Allergies As of Date: 01/02/2025 Noted Allergy Reaction ADHESIVE 12/07/2011 4 - Hives CODEINE 07/18/2005 Comments: HEART PALPITATIONS DARVOCET-N 100 (PROPOXYPHENE N-AC*07/16/2006 5 - Intolerance Comments: Heart racing LATEX 08/24/2012 4 - Hives MEPERIDINE HCL 08/27/2009 Date Reviewed: 12/24/2024 Reviewed by: William Vann PA-C - Fully Assessed Reason for Visit: Insurance Authorization [[id number]] Cmt: SCS Trial Prescriptions as of 01/08/2025 - baclofen 10 mg tablet Take 1 tablet by mouth at bedtime as needed (leg cramps.). - losartan (COZAAR) 50 mg tablet Take 1 tablet by mouth once daily. - metoprolol succinate ER (TOPROL XL) 25 mg 24 hr tablet Take 1 tablet by mouth once daily. - apixaban (ELIQUIS) 5 mg tab(s) Take 1 tablet by mouth two times a day. - amLODIPine (NORVASC) 2.5 mg tablet Take 1 tablet by mouth once daily. - dofetilide (TIKOSYN) 250 mcg capsule Take 1 capsule by mouth two times a day. - pantoprazole DR (PROTONIX) 40 mg tablet TAKE ONE TABLET BY MOUTH DAILY ON EMPTY STOMACH ONE-HALF HOUR BEFORE BREAKFAST - atorvastatin (LIPITOR) 40 mg tablet Take 1 tablet by mouth once daily. - clotrimazole-betamet hasone (LOTRISONE) cream Apply to affected area twice daily. APPLY TO AFFECTED AREA - nitroglycerin sublingual (NITROSTAT) 0.4 mg SL tablet Dissolve 1 tablet under the tongue every 5 minutes as needed for chest pain. - blood sugar diagnostic (BLOOD GLUCOSE TEST) test strip Test blood sugar(s) 1 times daily. Dx: Typ (more content not included)... Normal [facility] HISTORY PHYSICALon HISTORY PHYSICAL HNO ID: [id number] Author: WILLIAM VANN PA-C Service: ? Author Type: Physician Resin Coater Type: H&P Filed: 12/24/2024 10:00 Note Text: [facility] HISTORY AND PHYSICAL EXAMINATION SERVICE DATE: 12/24/2024 SERVICE TIME: 8:50 AM PRIMARY CARE PHYSICIAN: Galindo Yuan MD Assessment Patient has the following medical conditions which may affect eileen-operative course: Coronary artery disease of [place] artery of [place] heart with stable angina pectoris (HCC) Assessment: Follows with Cardiology in [place], and EP at , last OV with Diane Reed PA-C 07/24/2024 History of AR and stents. Denies any recent chest pain or SOB. No Nitro in months. 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 Assessment: . [place] Activity Status Index: METS: Walk indoors, such as around the house (1.75 METs) Do light work around the house, such as dusting or washing dishes (2.70 METs) Take care of self; that is eating, dressing, bathing, using the toilet (2.75 METs) Walk a block or two on level ground (2.75 METs) Do moderate work around the house, such as vacuuming, sweeping floors, or carrying in groceries (3.50 METs) DASI Score: 13.45 Patient denies any chest pain or undue shortness of breath with the above physical activity. Clinical Frailty Scale: 5. Mildly frail STOP-Bang Score: STOP-Bang Score: (+ETHAN- uses CPAP nightly ) [id number] Score: Age: >=75 Sex: male CHF history: No Hypertension history: Yes Stroke/TIA/thromboem bolism history: No Vascular disease history: No Diabetes history: Yes [id number] Score: 4 ANESTHESIA FINDINGS: Intubation History: No history of difficult intubation Significant Anesthesia Considerations: none Airway History: No history of difficult airway History of head/neck surgery that distorted airway, including mouth, neck, or their mobility I - PHYSICAL EVALUATION AIRWAY Patient intubated: No. Tracheostomy tube not present Mallampati: III. TM distance: >3 FB. Neck ROM: limited flexion and extension. Mouth opening: adequate. Short neck: no. Additional comments: Limited neck rotation with pain. Thick neck: no Tolentino present: no Lip Bite Test: I DENTAL Dentures, upper: complete. Dentures, lower: complete. II - ANESTHESIA PLAN Anesthetic plan additional comments: *PACC/TCI - anesthesia choice. Beta Rebeca Monitoring Plan Post Procedure Analgesic Plan Prepared for Surgery: optimally prepared for surgery. Patient was seen by PCP yesterday and instructed to hold Eliquis 2 days before procedure. CONSULTS: Patient does not require consults for optimization at this time Planned Anesthetic: anesthesia choice The Following Tests/Procedures Have Been Initiated: No orders of the defined types were placed in this encounter. This is a virtual visit using Keego video visit. It required patient-provider interaction for the medical decision making as documented below. REASON FOR VISIT: Jg Chahal is a 84 year old male who is scheduled for Procedure(s): PERCUTANEOUS IMPLANT LEAD NEUROSTIM EPIDURAL TRIAL (N/A) at the request of Dr. Renan Bowling for consultation. My final recommendation will be communicated back to the requesting physician by way of shared medical record or letter. Subjective The patient has the following: COVID-19 Immunization Status Postponed - Covid-19 Vaccine () Postponed until 12/05/2025 12/05/2024 Postponed until 12/05/2025 by Saritha Daniel MA (Declined at this time) 06/20/2024 Imm Admin: COVID-19 vaccine, age 12+ yr (PFIZER-BIONTECH COMIRNATY) 12/20/2023 Imm Admin: COVID-19 vaccine, age 12+ yr (PFIZER-BIONTECH COMIRNATY) Only the first 3 history entries have been loaded, but more history exists. CHIEF COMPLAINT: Pain disorder with related psychological factors, Failed back syndrome of lumbar spine HPI: Jg Chahal is a 84 year old male who is scheduled for (more content not included)... Normal [facility] CNOVon 12-23-2024 CNOV Office Visit (INTMWS) JG CHAHAL ([id number]) 1940 M Date Time Provider Department 12/23/24 8:40 AM GALINDO YUAN INTMWS During your visit today, we recorded the following information about you: Temperature Pulse Respiration Blood pressure 98.5 degrees 64/minute 16/minute 126/72 Weight 97.2 kg Galindo Yuan MD 12/23/2024 9:19 AM Signed This note was created using Mavenlinkriter. Subjective Jg Chahal is a 84 year old male. His testicle pain resolved. He's been dealing with hand cramps off and on. His recent labs were notable for mild kidney insufficiency. What was more bothersome was severe nocturnal leg cramps for more than one year, that wake him up often. These are worse when he was more active. He gets relief from a small serving of pickle juice but his blood pressure elevates from pickle juice presumably from high sodium content. He was scheduled for a trial of percutaneous implant of neurostimulator for chronic pain. Review of Systems Constitutional: Negative for fatigue and fever. Respiratory: Negative for shortness of breath. Cardiovascular: Negative for chest pain, palpitations and leg swelling. Musculoskeletal: Positive for myalgias. Neurological: Negative. 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 Obesity, Class I, Bmi 30-34.9 Sleep Terrors Oropharyngeal Dysphagia Cervical Spondylosis Stable Angina (Hcc) Social History Tobacco Use Smoking status: Never Smokeless tobacco: Never Vaping Use Vaping status: Never Used Substance Use Topics Alcohol use: No Drug use: No Current Outpatient Medications Medication Sig amLODIPine (NORVASC) 2.5 mg tablet Take 1 tablet by mouth once daily. dofetilide (TIKOSYN) 250 mcg capsule Take 1 capsule by mouth two times a day. pantoprazole DR (PROTONIX) 40 mg tablet TAKE ONE TABLET BY MOUTH DAILY ON EMPTY STOMACH ONE-HALF HOUR BEFORE BREAKFAST apixaban (ELIQUIS) 5 mg tab(s) Take 1 tablet by mouth two times a day. atorvastatin (LIPITOR) 40 mg tablet Take 1 tablet by mouth once daily. metoprolol succinate ER (TOPROL XL) 25 mg 24 hr tablet Take 1 tablet by mouth once daily. losartan (COZAAR) 50 mg tablet Take 1 tablet by mouth once daily. clotrimazole-betamet hasone (LOTRISONE) cream Apply to affected area twice daily. APPLY TO AFFECTED AREA nitroglycerin sublingual (NITROSTAT) 0.4 mg SL tablet Dissolve 1 tablet under the tongue every 5 minutes as needed for chest pain. blood sugar diagnostic (BLOOD GLUCOSE TEST) test strip Test blood sugar(s) 1 times daily. Dx: Type 2 DM - Controlled E11.42 Insulin: No TENS unit and electrodes cmpk Us as instructed. melatonin 3 mg tablet Take 1 tablet by mouth daily at bedtime. Lancets lancets Test blood sugar(s) 1 times daily. Dx: Type 2 DM - Controlled E11.42 Insulin: No CPAP Patient requesting new DME. Currently has a PAP device (2015 -- may be due for new device). Please fit with a Wisp (currently with Dream wisp and causing discomfort on top of head). Lifetime supplies. Amoxicillin 500 mg tablet Take 4 tablets by mouth as needed (1 hour before the procedure). docusate sodium (COLACE) 100 mg capsule AT BEDTIME magnesium oxide (MAG-OX) 400 mg tablet Take 1 tablet by mouth once daily. Cholecalciferol, Vitamin D3, 1,000 unit cap Take 1 capsule by mouth once daily. vitamin b complex (B COMPLETE) ORAL Tab Take 1 tablet by mouth once daily. No current facility-administere d medications for this visit. Objective BP 126/72 (BP Site: Left Arm, BP Position: Sitting, BP Cuff Size: Large Adult) Pulse 64 Temp 36.9 ?C (98.5 ?F) (Temporal) Resp 16 Wt 97.2 kg (214 lb 4.6 oz) BMI 33.56 kg/m? Physical Exam Constitutional: General: He is not in acute distress. Cardiovascular: Heart sounds: Normal heart sounds. Pulmonary: Breath sounds: Normal breath sounds. Musculoskeletal: Right lower leg: No edema. Left lower leg: No edema. Neurological: General: No focal deficit present. Mental Status: He is alert. Gait: Gait abnormal. Comments: Using a cane. Assessment and Plan 1. Nocturnal leg cramps - ICD9: 327.52, ICD10: G47.62 (primary diagnosis) Chronic. Shared Medical Decision Making was done: Me (more content not included)... Normal [facility] CNPNon 12-23-2024 [facility] Telephone (INTMWS) TIRSOJG ([id number]) 1940 M Date Time Provider Department 12/23/24 GALINDO YUAN INTMWS During your visit today, we recorded the following information about you: Faby Zapien RN 12/23/2024 9:22 AM Signed Renetta pharmacist from [facility] calls and states that insurance will not cover methocarbamol. Insurance will cover Tizanidine. VISH Reich Victor H, MD 12/24/2024 9:46 AM Signed The following approved medication requests have been transmitted electronically. Requested Prescriptions Signed Prescriptions Disp Refills baclofen 10 mg tablet 30 tablet 0 Sig: Take 1 tablet by mouth at bedtime as needed (leg cramps.). Authorizing Provider: GALINDO YUAN MD Allergies As of Date: 12/23/2024 Noted Allergy Reaction ADHESIVE 12/07/2011 4 - Hives CODEINE 07/18/2005 Comments: HEART PALPITATIONS DARVOCET-N 100 (PROPOXYPHENE N-AC*07/16/2006 5 - Intolerance Comments: Heart racing LATEX 08/24/2012 4 - Hives MEPERIDINE HCL 08/27/2009 Date Reviewed: 12/23/2024 Reviewed by: Griselda Stark LPN - Fully Assessed Reason for Visit: Medication Problem [65] Primary Visit Diagnosis:Nocturnal leg cramps [G47.62] Order(s):baclofen 10 mg tabletTake 1 tablet by mouth at bedtime as needed (leg cramps.).Disp: 30 tabletRfl: 0 Prescriptions as of 12/24/2024 - baclofen 10 mg tablet Take 1 tablet by mouth at bedtime as needed (leg cramps.). - losartan (COZAAR) 50 mg tablet Take 1 tablet by mouth once daily. - metoprolol succinate ER (TOPROL XL) 25 mg 24 hr tablet Take 1 tablet by mouth once daily. - apixaban (ELIQUIS) 5 mg tab(s) Take 1 tablet by mouth two times a day. - amLODIPine (NORVASC) 2.5 mg tablet Take 1 tablet by mouth once daily. - dofetilide (TIKOSYN) 250 mcg capsule Take 1 capsule by mouth two times a day. - pantoprazole DR (PROTONIX) 40 mg tablet TAKE ONE TABLET BY MOUTH DAILY ON EMPTY STOMACH ONE-HALF HOUR BEFORE BREAKFAST - atorvastatin (LIPITOR) 40 mg tablet Take 1 tablet by mouth once daily. - clotrimazole-betamet hasone (LOTRISONE) cream Apply to affected area twice daily. APPLY TO AFFECTED AREA - nitroglycerin sublingual (NITROSTAT) 0.4 mg SL tablet Dissolve 1 tablet under the tongue every 5 minutes as needed for chest pain. - blood sugar diagnostic (BLOOD GLUCOSE TEST) test strip Test blood sugar(s) 1 times daily. Dx: Type 2 DM - Controlled E11.42 Insulin: No - TENS unit and electrodes cmpk Us as instructed. - melatonin 3 mg tablet Take 1 tablet by mouth daily at bedtime. - Lancets lancets Test blood sugar(s) 1 times daily. Dx: Type 2 DM - Controlled E11.42 Insulin: No - CPAP Patient requesting new DME. Currently has a PAP device (2016 -- may be due for new device). Please fit with a Wisp (currently with Dream wisp and causing discomfort on top of head). Lifetime supplies. - Amoxicillin 500 mg tablet Take 4 tablets by mouth as needed (1 hour before the procedure). - docusate sodium (COLACE) 100 mg capsule AT BEDTIME - magnesium oxide (MAG-OX) 400 mg tablet Take 1 tablet by mouth once daily. - Cholecalciferol, Vitamin D3, 1,000 unit cap Take 1 capsule by mouth once daily. - vitamin b complex (B COMPLETE) ORAL Tab Take 1 tablet by mouth once daily. 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 pylori infection [A04.8] 05/30/2011 09/28/2011 SUMMARY [V999.95] 11/24/2011 03/28/2012 SUMMARY [V999.95] 04/06/2012 09/15/2017 Chest pain [R07.9] 04/07/2012 02/16/2016 Hyperlipidemia [E78.5] 04/07/2012 02/19/2017 DM (diabetes mellitus) [E11.9] 04/07/2012 02/16/2016 Hypercholesteremia [E78.00] 08/24/2012 GERD (gastroesophageal reflux disease) [K21.9] 08/24/2012 Rotator cuff tear, right [M75.101] 10/21/2012 05/12/2021 Rotator cuff (capsule) sprain [S43.429A] 12/28/2014 12/28/2014 Pain in joint, shoulder region [M25.519] 02/12/2015 02/16/2016 Actinic keratosis [L57.0] 02/17/2015 Other seborrheic keratosis [L82.1] 02/17/2015 11/06/2018 Neoplasm of uncertain behavior of skin [D48.5] 02/17/2015 11/06/2018 Hemangioma of skin and subcutaneous tissue [D18*02/17/2015 02/16/2016 Basal cell carcinoma [C44.9 (more content not included)... Normal [facility] Basic metabolic 2000 panelon 12-15-2024 Anion gap [Moles/Vol] 8 mmol/L Normal 8-15 [facility] Comment on above: Order Comment: Speci men Type: BLOOD SPECIMENOrdering Facility: [facility] Address: [address] [place] [address] Performed By: #### 1 9123-9, 61788-8 ####[facility]ITALSHREYAA [id number] [place] [address] [place] Calcium [Mass/Vol] 9.9 mg/dL Normal 8.5-10.2 [facility] Comment on above: Order Comment: Speci men Type: BLOOD SPECIMENOrdering Facility: [facility] Address: [address] [place] [address] Performed By: #### 1 9123-9, 06358-5 ####[facility] HOSPITALSARAH [id number] [place] [address] [place] Chloride [Moles/Vol] 100 mmol/L Normal 98-107 [facility] Comment on above: Order Comment: Speci men Type: BLOOD SPECIMENOrdering Facility: [facility] Address: [address] [place] [address] Performed By: #### 1 9123-9, 33954-8 ####[facility] [id number] [place] [address] [place] CO2 [Moles/Vol] 27 mmol/L Normal 22-30 [facility] Comment on above: Order Comment: Speci men Type: BLOOD SPECIMENOrdering Facility: [facility] Address: [address] [place] [address] Performed By: #### 1 9123-9, 53303-2 ####[facility]ITAL[facility] [id number] [place] [address] [place] Creatinine [Mass/Vol] 1.24 mg/dL High 0.73-1.22 [facility] Comment on above: Order Comment: Speci men Type: BLOOD SPECIMENOrdering Facility: [facility] Address: [address] [place], [place] [id number] Performed By: #### 1 9123-9, 67289-3 ####[facility] HOSPITALNCLIA [id number] [place] [address] [place] Creatinine and Glomerular filtration rate.predicted panel (S/P/Bld) 57 mL/min/1.73m??? Low >=60 [facility] Comment on above: Order Comment: Baldev bailey Type: BLOOD SPECIMENOrdering Facility: [facility] Address: [address] [place] [address] Result Comment: Janie mated Glomerular Filtration Rate (eGFR) is calculated using the 2020 CKD-EPI creatinine equation. This equation utilizes serum creatinine, sex, and age as parameters. The creatinine assay has traceable calibration to isotope dilution-mass spectrometry. Refer to KDIGO guidelines for clinical interpretation. In patients with unstable renal function, e.g. those with acute kidney injury, the eGFR may not accurately reflect actual GFR. Performed By: #### 1 9123-9, 04052-3 ####[facility]ITALA [id number] [place] [address] [place] Glucose [Mass/Vol] 107 mg/dL High 74-99 [facility] Comment on above: Order Comment: Baldev bailey Type: BLOOD SPECIMENOrdering Facility: [facility] Address: [address] [place] [address] Result Comment: The [place] Diabetes Association (ADA) provides guidance for cutoff values for fasting glucose and random glucose. The ADA defines fasting as no caloric intake for at least 8 hours. Fasting plasma glucose results between 100 to 125 mg/dL indicate increased risk for diabetes (prediabetes). Fasting plasma glucose results greater than or equal to 126 mg/dL meet the criteria for diagnosis of diabetes. In the absence of unequivocal hyperglycemia, results should be confirmed by repeat testing. In a patient with classic symptoms of hyperglycemia or hyperglycemic crisis, random plasma glucose results greater than or equal to 200 mg/dL meet the criteria for diagnosis of diabetes. Reference: Standards of Medical Care in Diabetes 2016, [place] [employer] Association. Diabetes Care. 2016.39(Suppl 1). Performed By: #### 1 9123-9, 85879-9 ####[facility] MAR[facility] LUISJUDEA [id number] [place] [address] [place] Potassium [Moles/Vol] 4.2 mmol/L Normal 3.7-5.1 [facility] Comment on above: Order Comment: Speci men Type: BLOOD SPECIMENOrdering Facility: [facility] Address: [address] [place] [address] Performed By: #### 1 9123-9, 92899-3 ####[facility] JESSICA [id number] [place] [address] [place] Sodium [Moles/Vol] 135 mmol/L Low 136-144 [facility] Comment on above: Order Comment: Speci men Type: BLOOD SPECIMENOrdering Facility: [facility] Address: [address] [place] [address] Performed By: #### 1 9123-9, 94410-7 ####[facility] JESSICA [id number] [place] [address] [place] Urea nitrogen [Mass/Vol] 16 mg/dL Normal 9-24 [facility] Comment on above: Order Comment: Speci men Type: BLOOD SPECIMENOrdering Facility: [facility] Address: [address] [place] [address] Performed By: #### 1 9123-9, 33996-2 ####[facility] HOSPITALNICOLELIA [id number] [place] [address] [place] Magnesium SerPl-mCncon 12-15 Magnesium [Mass/Vol] 2.2 mg/dL Normal 1.7-2.3 [facility] Comment on above: Order Comment: Speci men Type: BLOOD SPECIMENOrdering Facility: [facility] Address: [address] [place] [address] Performed By: #### 1 9123-9, 95125-3 ####[facility] SIUSARAH [id number] [place] [address] [facility] CNOVon 12-11-2024 CNOV Office Visit (PODIWS) JG CHAHAL ([id number]) 1940 M Date Time Provider Department 12/11/24 8:30 AM JUAN TORRES PODIWS During your visit today, we recorded the following information about you: Holli Johnson LPN 12/11/2024 8:58 AM Signed AMB ROOMING INTAKE FLOWSHEET DATA Pain Pain Level: 4 Pain Location: Toe Description: Sore Duration Units: Months Frequency: Intermittent Intervention/Comfort measure: Relaxation, Reposition Patient presents with: Right Foot - Established Patient, Pain, nail care Left Foot - Established Patient, Pain, nail care HUANG Ramirez Matthew 12/11/2024 8:34 AM Signed Diabetes Foot Care Instructions When you have diabetes, proper foot care is very important. Poor foot care may lead to amputation of a foot or leg. As a person with diabetes, you are more vulnerable to foot problems, because diabetes can damage your nerves and reduce blood flow to your feet. Here are some diabetes foot care tips to follow: Wash and Dry Your Feet Daily Use mild soaps Use warm water Pat your skin dry; do not rub. Thoroughly dry your feet. After washing, use lotion on your feet to prevent cracking. Do not put lotion between your toes. Examine Your Feet Each Day Check the tops and bottoms of your feet. Have someone else look at your feet if you cannot see them. Check for dry, cracked skin. Look for blisters, cuts, scratches, or other sores. Check for redness, increased warmth, or tenderness when touching any area of your feet. Check for ingrown toenails, corns, and calluses. If you get a blister or sore from your shoes, do not pop it. Apply a bandage and wear a different pair of shoes. Take Care of Your Toenails Cut toenails after bathing, when they are soft. Cut toenails straight across and smooth with a nail file. Avoid cutting into the corners of toes. Do not cut cuticles. If you have neuropathy (or decreased sensation in your feet) a web programmer should always cut your toenails. Be Careful When Exercising Walk and exercise in comfortable shoes. Do not exercise when you have open sores on your feet. Protect Your Feet With Shoes and Socks Never go barefoot. Always protect your feet by wearing shoes or hard-soled slippers or footwear. Avoid shoes with high heels and pointed toes. Avoid shoes that expose your toes or heels (such as open-toed shoes or sandals). These types of shoes increase your risk for injury and potential infections. Try on new footwear with the type of socks you usually wear. Do not wear new shoes for more than an hour at a time. Change your socks daily. Look and feel inside your shoes before putting them on to make sure there are no foreign objects or rough areas. Avoid tight socks. Wear natural-fiber socks (cotton, wool, or a cotton-wool blend). Wear special shoes if your health care provider recommends them. Wear shoes/boots that will protect your feet from various weather conditions (cold, moisture, etc.). Make sure your shoes fit properly. If you have neuropathy (nerve damage), you may not notice that your shoes are too tight. Perform the footwear test described below. Footwear Test Use this simple test to see if your shoes fit correctly: Stand on a piece of paper. (Make sure you are standing and not sitting, because your foot changes shape when you stand.) Trace the outline of your foot. Trace the outline of your shoe. Compare the tracings: Is the shoe too narrow? Is your foot crammed into the shoe? The shoe should be at least 1/2 inch longer than your longest toe and as wide as your foot. Proper Shoe Choices The following types of shoes are best for people with diabetes Closed toes and heels Leather uppers without a seam inside At least 1/2 inch extra space at the end of your longest toe Inside of shoe should be soft with no rough areas Outer sole should be made of stiff material Shoes should be at least as wide as your feet Tips for Foot Care in Diabetes Don't wait to treat a minor foot problem if you have diabetes. Follow your health care provider's guidelines and first aid guidelines. Report foot injuries and infections to your health care provider immediately. Check water temperature with your elbow, not your foot. Do not use a heating pad on your feet. Do not cross your legs. Do not self-treat your corns, calluses, or other foot problems. Go to your health care provider or web programmer to treat these conditions. Juan oTrres 12/11/2024 8:58 AM Signed Last saw pcp: 12/05/24 Subjective: Patient presents to clinic c/o painful toenails. They state that the nails are especially painful with shoe gear and pressure. Patient admits to being diabetic. No other pedal complaints at this time. Patient states no change in medications or medical history since last visit. Objective: Patien (more content not included)... Normal [facility] CNOVon 12-05-2024 CNOV Office Visit (INTMWS) JG CHAHAL ([id number]) 1940 M Date Time Provider Department 12/05/24 11:40 AM GALINDO YUAN INTMWS During your visit today, we recorded the following information about you: Pulse Respiration Blood pressure Weight 56/minute 16/minute 118/70 96.3 kg Galindo Yuan MD 12/05/2024 1:42 PM Signed This note was created using NoteWriter. Subjective Jg Chahal is a 84 year old male. He developed left testicle pain one week ago, varying in severity, aggravated by sitting down and certain movements, but no self palpation. He denied trauma, urinary symptoms, or swelling. Review of Systems Constitutional: Negative for chills and fever. Gastrointestinal: Negative for abdominal pain, nausea and vomiting. Genitourinary: Negative for dysuria, hematuria and penile discharge. 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 Obesity, Class I, Bmi 30-34.9 Sleep Terrors Oropharyngeal Dysphagia Cervical Spondylosis Stable Angina (Hcc) Social History Tobacco Use Smoking status: Never Smokeless tobacco: Never Vaping Use Vaping status: Never Used Substance Use Topics Alcohol use: No Drug use: No Current Outpatient Medications Medication Sig doxycycline (VIBRA-TABS) 100 mg tablet Take 1 tablet by mouth two times a day for 5 days. dofetilide (TIKOSYN) 250 mcg capsule Take 1 capsule by mouth two times a day. pantoprazole DR (PROTONIX) 40 mg tablet TAKE ONE TABLET BY MOUTH DAILY ON EMPTY STOMACH ONE-HALF HOUR BEFORE BREAKFAST apixaban (ELIQUIS) 5 mg tab(s) Take 1 tablet by mouth two times a day. atorvastatin (LIPITOR) 40 mg tablet Take 1 tablet by mouth once daily. metoprolol succinate ER (TOPROL XL) 25 mg 24 hr tablet Take 1 tablet by mouth once daily. losartan (COZAAR) 50 mg tablet Take 1 tablet by mouth once daily. amLODIPine (NORVASC) 2.5 mg tablet Take 1 tablet by mouth once daily. clotrimazole-betamet hasone (LOTRISONE) cream Apply to affected area twice daily. APPLY TO AFFECTED AREA nitroglycerin sublingual (NITROSTAT) 0.4 mg SL tablet Dissolve 1 tablet under the tongue every 5 minutes as needed for chest pain. blood sugar diagnostic (BLOOD GLUCOSE TEST) test strip Test blood sugar(s) 1 times daily. Dx: Type 2 DM - Controlled E11.42 Insulin: No TENS unit and electrodes cmpk Us as instructed. melatonin 3 mg tablet Take 1 tablet by mouth daily at bedtime. Lancets lancets Test blood sugar(s) 1 times daily. Dx: Type 2 DM - Controlled E11.42 Insulin: No CPAP Patient requesting new DME. Currently has a PAP device (2016 -- may be due for new device). Please fit with a Wisp (currently with Dream wisp and causing discomfort on top of head). Lifetime supplies. Amoxicillin 500 mg tablet Take 4 tablets by mouth as needed (1 hour before the procedure). docusate sodium (COLACE) 100 mg capsule AT BEDTIME magnesium oxide (MAG-OX) 400 mg tablet Take 1 tablet by mouth once daily. Cholecalciferol, Vitamin D3, 1,000 unit cap Take 1 capsule by mouth once daily. vitamin b complex (B COMPLETE) ORAL Tab Take 1 tablet by mouth once daily. No current facility-administere d medications for this visit. Objective BP 118/70 Pulse (!) 56 Resp 16 Wt 96.3 kg (212 lb 4.9 oz) SpO2 94% BMI 33.25 kg/m? Physical Exam Constitutional: Appearance: He is not ill-appearing. Abdominal: Palpations: Abdomen is soft. There is no mass. Tenderness: There is no abdominal tenderness. Hernia: No hernia is present. There is no hernia in the left inguinal area or right inguinal area. Genitourinary: Penis: Uncircumcised. No discharge or lesions. Testes: Right: Mass, tenderness, swelling, testicular hydrocele or varicocele not present. Left: Tenderness present. Mass, swelling, testicular hydrocele or varicocele not present. Epididymis: Left: Tenderness present. No mass. Lymphadenopathy: Lower Body: No right inguinal adenopathy. No left inguinal adenopathy. Neurological: Mental Status: He is alert. Latest Ref Rng 12/05/2024 GLUCOSE UA (POCT) Negative mg/dL Negative BILIRUBIN UA (POCT) Negative Negative KETONE UA (POCT) Negative mg/dL Negative SPECIFIC GRAVITY UA (POCT) 1.005 - 1.030 1.020 HEMOGLOBIN (more content not included)... Normal [facility] UA DIP, URINE (POC)on 2024 BILIRUBIN UA (POCT) Negative Negative [facility] CLARITY UA (POCT) Clear [facility] COLOR UA (POCT) Yellow [facility] GLUCOSE UA (POCT) Negative Negative mg/dL [facility] Hemoglobin Ql (U) Trace-intact Abnormal Negative [facility] Interpretation and review of laboratory results Abnormal [facility] KETONE UA (POCT) Negative Negative mg/dL [facility] LEUKOCYTES UA (POCT) [facility] N[facility] ([facility]) Negative Negative [facility] PH UA (POCT) 6.0 4.5 - 8.0 [facility] Protein Ql (U) Negative Negative mg/dL [facility] SPECIFIC GRAVITY UA (POCT) 1.020 1.005 - 1.030 [facility] UROBILINOGEN UA (POCT) 0.2 [place] l E.U./dL [facility] Location:[address], [place], [place], [id number] [place] [address] POINT OF CARE [facility] CNPMaría 12-03-2024 CNPN Telephone (PNMDNA) CHAHALJG VICTORIA ([id number]) 1940 M Date Time Provider Department 12/03/24 RENAN BOWLING During your visit today, we recorded the following information about you: Petr Mccall RN 12/03/2024 3:50 PM Signed Procedure: SCS Trial Procedure Date: TBD Patient completed office visit with Dr. Pop on 12/03/2024. Recommendations: Mr. Chahal appears to be an excellent candidate for the SCS and it is recommended that he proceed to the trial of the spinal cord stimulator. He was instructed in the need to maintain a journal of activities, pain, sleep, what he likes and does not like about the process in order to determine whether or not to continue to permanent implant. If he does well with the trial, and would like to continue to permanent implant, it would be so indicated. Lumbar MRI: 02/19/2024 Thoracic XRAY: 10/02/2024 Patient to be discussed with Dr. Bowling during next available office day. Petr Mccall RN 12/08/2024 3:06 PM Addendum Patient discussed with Dr. Bowling, who is amenable to proceeding with SCS trial with [facility]. Confirmed with Surgery Schedulers of OR availability 01/14/2025 AM. Email sent to block Dr. Bowling's office schedule. Petr Mccall RN 12/08/2024 3:34 PM Signed Patient contacted via telephone to schedule SCS Trial. Patient has scheduled for: January 14, 2025 Patient's Office Visit: January 21, 2025 @ 1030 Patient instructed to hold the following medication(s) prior to the procedure: PACC Visit Dr. Aguilar's number provided to schedule consult for permanent SCS implantation ([phone]). Patient verbalized understanding with no additional questions or concerns at this time. Email sent to [facility]ene aircraft sales representative informing of OR date and follow-up office visit. Procedure order pended for provider review. Routing to provider Petr Mccall RN 12/08/2024 3:35 PM Signed Addended by: PETR CMCALL on: 12/08/2024 03:35 PM Modules accepted: Orders Krystin Hernandez APRN.CNP 12/09/2024 11:12 AM Signed SCS order signed off Krystin Hernandez APRN.CNP 12/09/2024 11:12 AM Signed Addended by: KRYSTIN HERNANDEZ on: 12/09/2024 11:12 AM Modules accepted: Orders Allergies As of Date: 12/03/2024 Noted Allergy Reaction ADHESIVE 12/07/2011 4 - Hives CODEINE 07/18/2005 Comments: HEART PALPITATIONS DARVOCET-N 100 (PROPOXYPHENE N-AC*07/16/2006 5 - Intolerance Comments: Heart racing LATEX 08/24/2012 4 - Hives MEPERIDINE HCL 08/27/2009 Date Reviewed: 09/09/2024 Reviewed by: Nicole Rod MA - Fully Assessed Reason for Visit: Hand Buffer - Other [3602] Cmt: SCS Trial Primary Visit Diagnosis: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 - dofetilide (TIKOSYN) 250 mcg capsule Take 1 capsule by mouth two times a day. - pantoprazole DR (PROTONIX) 40 mg tablet TAKE ONE TABLET BY MOUTH DAILY ON EMPTY STOMACH ONE-HALF HOUR BEFORE BREAKFAST - apixaban (ELIQUIS) 5 mg tab(s) Take 1 tablet by mouth two times a day. - atorvastatin (LIPITOR) 40 mg tablet Take 1 tablet by mouth once daily. - metoprolol succinate ER (TOPROL XL) 25 mg 24 hr tablet Take 1 tablet by mouth once daily. - losartan (COZAAR) 50 mg tablet Take 1 tablet by mouth once daily. - amLODIPine (NORVASC) 2.5 mg tablet Take 1 tablet by mouth once daily. - clotrimazole-betamet hasone (LOTRISONE) cream Apply to affected area twice daily. APPLY TO AFFECTED AREA - nitroglycerin sublingual (NITROSTAT) 0.4 mg SL tablet Dissolve 1 tablet under the tongue every 5 minutes as needed for chest pain. - blood sugar diagnostic (BLOOD GLUCOSE TEST) test strip Test blood sugar(s) 1 times daily. Dx: Type 2 DM - Controlled E11.42 Insulin: No - TENS unit and electrodes cmpk Us as instructed. - melatonin 3 mg tablet Take 1 tablet by mouth daily at bedtime. - Lancets lancets Test blood sugar(s) 1 times daily. Dx: Type 2 DM - Controlled E11.42 Insulin: No - CPAP Patient requesting new DME. Currently has a PAP device (2016 -- may be due for new device). Please fit with a Wisp (currently with Dream wisp and causing discomfort on top of head). Lifetime supplies. - Amoxicillin 500 mg tablet Take 4 tablets by mouth as needed (1 hour before the procedure). - docusate sodium (COLACE) 100 mg capsule AT BEDTIME - magnesium oxide (MAG-OX) 400 mg tablet Take 1 tablet by mouth once daily. - Cholecalciferol, Vitamin D3, 1,000 unit cap Take 1 capsule by mouth once daily. - vitamin b complex (B COMPLETE) ORAL Tab Take 1 tablet by mouth once daily. Problem List As Of Date 12/03/2024 (more content not included)... [facility]BALJINDER[facility] CHAHALJG VICTORIA ([id number]) 1940 M Date Time Provider Department 11/24/24 RENAN BOWLING During your visit today, we recorded the following information about you: Petr Mccall RN 11/24/2024 12:48 PM Signed Patient's granddaughter contacted Pain Management with [employer] on 11/24/2024 at 1238 inquiring if patient can schedule with a provider other than Dr. Pop for his psychological testing prior to his spinal cord stimulator (SCS) trial. Patient's granddaughter stating that patient has been unable to schedule an appointment with Dr. Pop. Patient's granddaughter requesting return telephone call at [phone]. CRISTIN: 10/01/2024 w/Dr. Bowling PLAN: The patient status post lumbar fusion surgery with chronic persistent back pain and left radicular pain symptoms. He has had injections multiple times with temporary relief but still having persistent pain that is worsening. His activity level is decreased significantly and is only able to ambulate for short distances. The patient does not want to proceed with any major surgical procedures at this time. The recommendation is to proceed with spinal cord stimulation trial. The rationale behind the procedure as well as risk and benefits were discussed with the patient. The patient understands and wishes to proceed. No new medication was prescribed. Encouraged regular home exercise program. F/U in 1 week after the spinal cord stimulation trial. Mariella Kimball MA 11/24/2024 1:00 PM Signed Called and spoke with the patient's granddaughter and informed her that it can be any psychologist as long as they do clearances for SCS trials. The patient's granddaughter is going to contact a place closer to them. I informed the patient's granddaughter that we will need the OV notes or a letter clearing the patient for SCS trial fax to our office. Patient's granddaughter verbalized understanding. Allergies As of Date: 11/24/2024 Noted Allergy Reaction ADHESIVE 12/07/2011 4 - Hives CODEINE 07/18/2005 Comments: HEART PALPITATIONS DARVOCET-N 100 (PROPOXYPHENE N-AC*07/16/2006 5 - Intolerance Comments: Heart racing LATEX 08/24/2012 4 - Hives MEPERIDINE HCL 08/27/2009 Date Reviewed: 09/09/2024 Reviewed by: Nicole Rod MA - Fully Assessed Reason for Visit: Patient Update [1234] Prescriptions as of 11/24/2024 - apixaban (ELIQUIS) 5 mg tab(s) Take 1 tablet by mouth two times a day. - atorvastatin (LIPITOR) 40 mg tablet Take 1 tablet by mouth once daily. - metoprolol succinate ER (TOPROL XL) 25 mg 24 hr tablet Take 1 tablet by mouth once daily. - losartan (COZAAR) 50 mg tablet Take 1 tablet by mouth once daily. - amLODIPine (NORVASC) 2.5 mg tablet Take 1 tablet by mouth once daily. - dofetilide (TIKOSYN) 250 mcg capsule Take 1 capsule by mouth two times a day. - pantoprazole DR (PROTONIX) 40 mg tablet TAKE ONE TABLET BY MOUTH DAILY ON EMPTY STOMACH ONE-HALF HOUR BEFORE BREAKFAST - clotrimazole-betamet hasone (LOTRISONE) cream Apply to affected area twice daily. APPLY TO AFFECTED AREA - nitroglycerin sublingual (NITROSTAT) 0.4 mg SL tablet Dissolve 1 tablet under the tongue every 5 minutes as needed for chest pain. - blood sugar diagnostic (BLOOD GLUCOSE TEST) test strip Test blood sugar(s) 1 times daily. Dx: Type 2 DM - Controlled E11.42 Insulin: No - TENS unit and electrodes cmpk Us as instructed. - melatonin 3 mg tablet Take 1 tablet by mouth daily at bedtime. - Lancets lancets Test blood sugar(s) 1 times daily. Dx: Type 2 DM - Controlled E11.42 Insulin: No - CPAP Patient requesting new DME. Currently has a PAP device (2015 -- may be due for new device). Please fit with a Wisp (currently with Dream wisp and causing discomfort on top of head). Lifetime supplies. - Amoxicillin 500 mg tablet Take 4 tablets by mouth as needed (1 hour before the procedure). - docusate sodium (COLACE) 100 mg capsule AT BEDTIME - magnesium oxide (MAG-OX) 400 mg tablet Take 1 tablet by mouth once daily. - Cholecalciferol, Vitamin D3, 1,000 unit cap Take 1 capsule by mouth once daily. - vitamin b complex (B COMPLETE) ORAL Tab Take 1 tablet by mouth once daily. 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 [facility] Nurse Visit (FAMPWS) JG CHAHAL ([id number]) 1940 M Date Time Provider Department 11/05/24 11:30 AM AR NURSE FAMPWS During your visit today, we recorded the following information about you: Sussy Ng LPN 11/05/2024 11:05 AM Signed Patient presents for Flu vaccine. Denies any problems at this time. Tolerated injection well. Sussy Ng LPN Referring Provider: GALINDO YUAN [[id number]] Allergies As of Date: 11/05/2024 Noted Allergy Reaction ADHESIVE 12/07/2011 4 - Hives CODEINE 07/18/2005 Comments: HEART PALPITATIONS DARVOCET-N 100 (PROPOXYPHENE N-AC*07/16/2006 5 - Intolerance Comments: Heart racing LATEX 08/24/2012 4 - Hives MEPERIDINE HCL 08/27/2009 Date Reviewed: 09/09/2024 Reviewed by: Nicole Rod MA - Fully Assessed Reason for Visit: Imm/Inj [58] Visit Diagnosis:Encounter for immunization [Z23] Order(s):INFLUENZA VACCINE, PRSV FREE, AGE 65+ YR, HIGH DOSE, TRIVALENT (FLUZONE HIGH-DOSE) [[id number]] Order #: [id number] Prescriptions as of 11/05/2024 - apixaban (ELIQUIS) 5 mg tab(s) Take 1 tablet by mouth two times a day. - atorvastatin (LIPITOR) 40 mg tablet Take 1 tablet by mouth once daily. - metoprolol succinate ER (TOPROL XL) 25 mg 24 hr tablet Take 1 tablet by mouth once daily. - losartan (COZAAR) 50 mg tablet Take 1 tablet by mouth once daily. - amLODIPine (NORVASC) 2.5 mg tablet Take 1 tablet by mouth once daily. - dofetilide (TIKOSYN) 250 mcg capsule Take 1 capsule by mouth two times a day. - pantoprazole DR (PROTONIX) 40 mg tablet TAKE ONE TABLET BY MOUTH DAILY ON EMPTY STOMACH ONE-HALF HOUR BEFORE BREAKFAST - clotrimazole-betamet hasone (LOTRISONE) cream Apply to affected area twice daily. APPLY TO AFFECTED AREA - nitroglycerin sublingual (NITROSTAT) 0.4 mg SL tablet Dissolve 1 tablet under the tongue every 5 minutes as needed for chest pain. - blood sugar diagnostic (BLOOD GLUCOSE TEST) test strip Test blood sugar(s) 1 times daily. Dx: Type 2 DM - Controlled E11.42 Insulin: No - TENS unit and electrodes cmpk Us as instructed. - melatonin 3 mg tablet Take 1 tablet by mouth daily at bedtime. - Lancets lancets Test blood sugar(s) 1 times daily. Dx: Type 2 DM - Controlled E11.42 Insulin: No - CPAP Patient requesting new DME. Currently has a PAP device (2016 -- may be due for new device). Please fit with a Wisp (currently with Dream wisp and causing discomfort on top of head). Lifetime supplies. - Amoxicillin 500 mg tablet Take 4 tablets by mouth as needed (1 hour before the procedure). - docusate sodium (COLACE) 100 mg capsule AT BEDTIME - magnesium oxide (MAG-OX) 400 mg tablet Take 1 tablet by mouth once daily. - Cholecalciferol, Vitamin D3, 1,000 unit cap Take 1 capsule by mouth once daily. - vitamin b complex (B COMPLETE) ORAL Tab Take 1 tablet by mouth once daily. 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 pylori infection [A04.8] 05/30/2011 09/28/2011 SUMMARY [V999.95] 11/24/2011 03/28/2012 SUMMARY [V999.95] 04/06/2012 09/15/2017 Chest pain [R07.9] 04/07/2012 02/16/2016 Hyperlipidemia [E78.5] 04/07/2012 02/19/2017 DM (diabetes mellitus) [E11.9] 04/07/2012 02/16/2016 Hypercholesteremia [E78.00] 08/24/2012 GERD (gastroesophageal reflux disease) [K21.9] 08/24/2012 Rotator cuff tear, right [M75.101] 10/21/2012 05/12/2021 Rotator cuff (capsule) sprain [S43.429A] 12/28/2014 12/28/2014 Pain in joint, shoulder region [M25.519] 02/12/2015 02/16/2016 Actinic keratosis [L57.0] 02/17/2015 Other seborrheic keratosis [L82.1] 02/17/2015 11/06/2018 Neoplasm of uncertain behavior of skin [D48.5] 02/17/2015 11/06/2018 Hemangioma of skin and subcutaneous tissue [D18*02/17/2015 02/16/2016 Basal cell carcinoma [C44.91] 02/23/2015 11/06/2018 Well controlled type 2 diabetes mellitus with p*08/11/2015 Chronic anticoagulation [Z79.01] 10/12/2015 Paroxysmal atrial fibrillation (HCC) [I48.0] 11/26/2015 Arthritis, 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 Normal [facility] [facility] Renetta 10-13-2024 CNPN Telephone (RHINANA) JG CHAHAL ([id number]) 1940 M Date Time Provider Department 10/13/24 RENAN BOWLING During your visit today, we recorded the following information about you: Petr Mccall RN 10/13/2024 9:40 AM Signed Thoracic XRAY obtained for potential spinal cord stimulator (SCS) trial. [employer] message sent. Petr Mccall RN 10/14/2024 8:49 AM Signed [place] message read: Last read by Jr Chahal at 5:23 PM on 10/13/2024. Allergies As of Date: 10/13/2024 Noted Allergy Reaction ADHESIVE 12/07/2011 4 - Hives CODEINE 07/18/2005 Comments: HEART PALPITATIONS DARVOCET-N 100 (PROPOXYPHENE N-AC*07/16/2006 5 - Intolerance Comments: Heart racing LATEX 08/24/2012 4 - Hives MEPERIDINE HCL 08/27/2009 Date Reviewed: 09/09/2024 Reviewed by: Nicole Rod MA - Fully Assessed Reason for Visit: Results [95] Cmt: Thoracic XRAY Prescriptions as of 10/14/2024 - apixaban (ELIQUIS) 5 mg tab(s) Take 1 tablet by mouth two times a day. - atorvastatin (LIPITOR) 40 mg tablet Take 1 tablet by mouth once daily. - metoprolol succinate ER (TOPROL XL) 25 mg 24 hr tablet Take 1 tablet by mouth once daily. - losartan (COZAAR) 50 mg tablet Take 1 tablet by mouth once daily. - amLODIPine (NORVASC) 2.5 mg tablet Take 1 tablet by mouth once daily. - dofetilide (TIKOSYN) 250 mcg capsule Take 1 capsule by mouth two times a day. - pantoprazole DR (PROTONIX) 40 mg tablet TAKE ONE TABLET BY MOUTH DAILY ON EMPTY STOMACH ONE-HALF HOUR BEFORE BREAKFAST - clotrimazole-betamet hasone (LOTRISONE) cream Apply to affected area twice daily. APPLY TO AFFECTED AREA - nitroglycerin sublingual (NITROSTAT) 0.4 mg SL tablet Dissolve 1 tablet under the tongue every 5 minutes as needed for chest pain. - blood sugar diagnostic (BLOOD GLUCOSE TEST) test strip Test blood sugar(s) 1 times daily. Dx: Type 2 DM - Controlled E11.42 Insulin: No - TENS unit and electrodes [facility] as instructed. - melatonin 3 mg tablet Take 1 tablet by mouth daily at bedtime. - Lancets lancets Test blood sugar(s) 1 times daily. Dx: Type 2 DM - Controlled E11.42 Insulin: No - CPAP Patient requesting new DME. Currently has a PAP device (2015 -- may be due for new device). Please fit with a Wisp (currently with Dream wisp and causing discomfort on top of head). Lifetime supplies. - Amoxicillin 500 mg tablet Take 4 tablets by mouth as needed (1 hour before the procedure). - docusate sodium (COLACE) 100 mg capsule AT BEDTIME - magnesium oxide (MAG-OX) 400 mg tablet Take 1 tablet by mouth once daily. - Cholecalciferol, Vitamin D3, 1,000 unit cap Take 1 capsule by mouth once daily. - vitamin b complex (B COMPLETE) ORAL Tab Take 1 tablet by mouth once daily. 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 pylori infection [A04.8] 05/30/2011 09/28/2011 SUMMARY [V999.95] 11/24/2011 03/28/2012 SUMMARY [V999.95] 04/06/2012 09/15/2017 Chest pain [R07.9] 04/07/2012 02/16/2016 Hyperlipidemia [E78.5] 04/07/2012 02/19/2017 DM (diabetes mellitus) [E11.9] 04/07/2012 02/16/2016 Hypercholesteremia [E78.00] 08/24/2012 GERD (gastroesophageal reflux disease) [K21.9] 08/24/2012 Rotator cuff tear, right [M75.101] 10/21/2012 05/12/2021 Rotator cuff (capsule) sprain [S43.429A] 12/28/2014 12/28/2014 Pain in joint, shoulder region [M25.519] 02/12/2015 02/16/2016 Actinic keratosis [L57.0] 02/17/2015 Other seborrheic keratosis [L82.1] 02/17/2015 11/06/2018 Neoplasm of uncertain behavior of skin [D48.5] 02/17/2015 11/06/2018 Hemangioma of skin and subcutaneous tissue [D18*02/17/2015 02/16/2016 Basal cell carcinoma [C44.91] 02/23/2015 11/06/2018 Well controlled type 2 diabetes mellitus with p*08/11/2015 Chronic anticoagulation [Z79.01] 10/12/2015 Paroxysmal atrial fibrillation (HCC) [I48.0] 11/26/2015 Arthritis, 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 Normal [facility] XR THORACIC 2V AP/LATon 11- XR THORACIC 2V AP/LAT * * *Final Report* * * DATE OF EXAM: Oct 02 2024 9:30AM WOX [id number] - XR THORACIC 2V AP/LAT / PROCEDURE REASON: multiple diagnoses * * * * Physician Interpretation * * * * EXAMINATION: XR THORACIC 2V AP/LAT CLINICAL HISTORY: Chronic midline thoracic back pain Technique: XR THORACIC 2V AP/LAT -- NOT APPLICABLE with 2 views on 4 images Comparison: No relevant prior study is available for comparison RESULT: No acute fracture or malalignment. Multilevel intervertebral disc space narrowing with vertebral body osteophytes. Anterior fusion of the lower cervical spine from C4 through C7. Hardware is intact. IMPRESSION: No acute fracture. Degenerative disease of the thoracic spine. Supply Chain Planner: BERENICE Transcribe Date/Time: Oct 07 2024 3:35P Dictated by : SUSSY BOLES MD This examination was interpreted and the report reviewed and electronically signed by: SUSSY BOLES MD on Oct 07 2024 3:39PM EST [id number] CN Normal [facility] CNOVon 10-01-2024 CNOV Office Visit (PNMDNA) JG CHAHAL ([id number]) 1940 M Date Time Provider Department 10/01/24 9:30 AM RENAN BOWLING PNFLASH During your visit today, we recorded the following information about you: Pulse Weight 74/minute 96.7 kg Renan Bowling MD 10/01/2024 10:38 AM Signed [facility] Date: October 01, 2024 - 9:20 AM Chief Complaint: back and leg pain SUBJECTIVE: Mr. Chahal presents to the [facility] for a follow up appointment regarding chronic lower back pain. He states that since the last visit symptoms have been persistent. The pain is located in the left lumbar region and gluteal region and radiates to the left lower extremity along the posterior aspect to the level of the posterior thigh. // The pain is described as aching and is rated as 6 on a scale of 0-10. Symptoms interfere with physical activity, walking, sleeping, and lifting. The pain is exacerbated by standing and walking. The pain is mitigated by sitting. He is not currently receiving medications through the [facility]. REVIEW OF SYSTEMS: Constitutional: (-) Fever (-) Night Sweats (-) Weight Gain (-) Weight Loss (-) Fatigue Cardiovascular: (-) Chest Pain (-) Palpitations (-) Lightheadedness (-) Swelling of Ankles (-) Hx Heart Surgery Respiratory: (-) Shortness of Breath (-) Cough (-) Wheezing (-) Snoring Gastrointestinal: (-) Incontinence (-) Abdominal Pain (-) Diarrhea (-) Constipation (-) Nausea/Vomiting (-) Heart Burn Endocrine: (-) Thyroid Disorder (-) Diabetes Hematologic: (-) Prolonged Bleeding (-) Easy Bruising Genitourinary: (-) Incontinence (-) Frequency (-) Urinary Urgency Skin: (-) Rashes (-) Itching (-) Other Lesions Neurologic: (-) Headache (-) Double Vision (-) Confusion (-) Paralysis Psychiatric: (-) Depression (-) Anxiety (-) Delusions (-) Hallucinations (-) Personal History of Alcohol or Substance Abuse (-) Family History of Alcohol or Substance Abuse PROMIS 02/13/2024 PROMIS CAT Pain Interference PROMIS Pain Interference T-Score (range: 10 - 90) 63 (moderate) PROMIS Pain Interference Percentile 10 PROMIS Adult Short Form-Global Health Score (Mental) 45.8 (Good) 02/13/2024 02/14/2023 PROMIS CAT Physical Function T-Score 38 (moderate dysfunction) 47 (within normal limits) Percentile 12 38 Percentiles provide an indication of how a patient?s score ranks in relation to the [place] general population. > 31st percentile is within normal limits or better * < 31st percentile is at least ? 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 Dr. Tee Clemons, Dermatology Basal cell carcinoma (BCC) of skin of face Mohs 04/2021 Cervical spondylosis 09/25/2022 Coronary atherosclerosis of unspecified type of vessel, [place] or graft 01/22/2006 moderate Diverticulosis of colon (without mention of hemorrhage) 07/18/2005 Dyslipidemia Dyspepsia and other specified disorders of function of stomach 07/18/2005 Chronic gastritis, Dyspepsia. Gastric ulcer, unspecified as acute or chronic, without mention of hemorrhage or perforation, with obstruction Generalized osteoarthrosis, unspecified site 07/18/2005 H. pylori infection 05/30/2011 HTN (hypertension) Hypertensive 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 4 chronic kidney disease, or unspecified chronic kidney disease 07/18/2005 Impaired fasting glucose 07/18/2005 Lipoprotein deficiencies 07/18/2005 Low HDL. Lumbago 08/26/2008 Dr. Odin Coon, [facility]. Rotator cuff tear, right 10/21/2012 Salmonella enteritis 08/2010 Type II or unspecified type diabetes mellitus without mention of complication, not stated as uncontrolled 07/08/2007 Unspecified essential hypertension 07/18/2005 PAST SURGICAL HISTORY Procedure Laterality Date ARTHROSCOPY KNEE DIAGNOSTIC W/WO SYNOVIAL BX SPX 11/2003 Arthroscopy, knee ARTHRP ACETBLR/PROX FEM PROSTC AGRFT/ALGRFT Right 08/07/2016 Hip replacement, total ARTHRP KNE CONDYLEANDPLATU MEDIALANDLAT COMPARTMENTS 2002 Knee replacement, total, left ARTHRP KNE CONDYLEANDPLATU MEDIALANDLAT COMPARTMENTS Left 10/01/2017 linda (more content not included)... Normal [facility] SURGICAL PATHOLOGYOrdered By : Luis Felipe Muniz on 09-23-2024 Case Report Surgical Pathology Report Case: [id number] Authorizing Provider: Maryellen Mitchell MD Collected: 09/22/2024 03:05 PM Ordering Location: Dermatology Received: 09/22/2024 04:31 PM Pathologist: Luis Felipe Muniz MD, PhD Specimen: Skin, Excision, left glabella [facility] Work Phone: Clinical History k5zobKMbKHTnv3jcCGRr bGFuZzEwMzNcZnRuYmp7 ACCuepB5Qxq5UAIxJXdq cV4eUDFsVTrdK7dkijPg zDNzAZEuMDs8hS4zbFlt qE2mHzWfQgOuCVPpuAYf js45PM4dw5QvRAJpoRVm JECgnp3bGPhtQ8jvZ8ve hQJnC3swp3ukJTOsmS== [facility] Work Phone: FINAL DIAGNOSIS a3ubyKEpUAKsuFKdKUqt VetzvrIjRIEdyMMfT1Vw pizpGWdlEO9xYU7djOty gRYhmSQyGPHuCeFod1ss v833xPBxi6gjEKXOwhwn lOl1dIreK64sr7W3Zdei K96hlZUmMDT3VUEjGHOr bNGkNAXkTDA6XAGmoHSe N3jvNTIoTD2hhsywHGvy FPayQRQetYK5DZSwsSJs S2IuPUVqJYpeFFJwzmn3 CkMtZe7woMSgnNlbLDng YXJkXHBsYWluXGZzMjAg BQ9sV7mmwtpukTFejBXn bGFiZWxsYSwgZXhjaXNp e789GDHghuAaWCOrYwOr ZW76epRdpTDfxyBnCFIj SA6oZPQliwWmIKluwJXs AZPgmHUiPI4alwPzLKXf t55ntKO9IYr4XHK3F4pt ZWQuXHBhciAtIFNlYmFj AN96htDvBCXem78pJFot OM5kuFFiMFRlnMwaqNCx IkAtuDUqKAUmhqRGCb6W UlWuKJ1aAS9uXAywRNI0 [facility] Work Phone: Gross Description r8ycnSWaQCGhpUUJQYH8 YJEjDO7yrQladRf2vCtm BQBftrG3kBGxFQccw6cp NGJ4d8lsjnYPIzznSSQe QN3hMSzoAFKyLY1kDdXx XGRlZmYxXHBhcGVydzEy MuIhHWRuyDNuzQB7TENr ZZ9lxabrFThqEVflKEFq pgQ7TJNaqUCzA1CbFZYz VV5vniinGJA0KSWOSkcb Tk1bdPUswFziApHcYtPm TKRoIUHrHSWyh8tvloDG ncvaqDi1qM9SDIHrD2Et BN7Pd2evITSdhJFjXWO2 BHufj9voKWedHRP0CXWk JQJbMAEcPY2GUuNyOCb5 TcG2Amt5McP5KIn5RNLZ PFPmZDM6OgZ5RRErWYl5 OTkgXFxuaCBcXHQgMSBc BLKdAHprjaJ6n4ijWBSe hXYvXAQ5AUmxa6tqZGpa RRA4KJTlLsYjXLBmCA8B FvEiCIh3TrH8Lzd0NwW5 BDh2ECHOCzVsIwGlTnK7 KzK0YLqwHCf7CAa5PFrX KnXqHGL8DTcbApC6YkH4 LTW8PnDxEUYrFkTrOCBe WHFvZRqkaVSjVF6zkKof NUFuCG5DNQDtYPpiTKTy MnIiCX4nY2kazwgmXTop mVIme57lrCJoQ5ypjPUp ZX3MMUNvjbTkTFqmyHex nT1eqUXjO9ybMzMxQzej cGljTmVzdERvYzEgDQpc qHCccTPoVU8EHIJqYsPj StGsWGs9KBGcxC8cTu8k xSLltY1krZJqXN0wNCfh tCS0hRQndJAhmWWlUDVn k5IcpJUacEBiNuBqi6ck IGFuZCBzdWJjdXRhbmVv sLBijXuqf4YcEZ8oGKT7 cmluZyAxLjcgeCAxLjAg nWGdPpJyU63pCUNOtOWm j1gnotCkwDWvOSKoLVSm xA4mo0WtXQOmjhOnviLl kbLtZ4KoRTWwfLWwPXOr bGlnaHRseSBkZXByZXNz ZWQgYXJlYSBtZWFzdXJp qcytRT10WGsnJY9nVUYe HNYnixZpYZt6JT9jtwP3 jaMlNzZvX24fpE2xvZjz SH0aSHFpj6OsaOChN0st NuUtSOraQY4grdsdggQf WSEsOQoxa6NmUWSvOCAb LiAgVGhlIHNwZWNpbWVu VBuxWUYwG2Dtj69eVLKg dvQjsF46WBclvLUfcSIn zNH3WIOmQYArCa0lxG98 czogQTEgdGlwcywgQTJc kXqmLKQbCQj0CnXhJJYc ZHkuIFxwYXIgDQpccGFy QF3ZH6MsId23YF6wYFIr NTdtSjVeKPZbDxL4PVEQ XHBhciANClxwYXIgDQpH uv1ruaUvpEEfhT4waSpc ukXfCELiz8EuBRBcAQZf N0nadmSsYR4fFBWokW7c YywgOTUwMCBFdWNsaWQg RQYtPxayA5losgLyTW6i MGVRNVC5ZMN1RLcqLNZe ANsnc1MxIFzorShlXAEi CwQjMYpcSOFoF14dc1DF e8Ebm4hlwQzuh6HpeQGv WU99JSIfjKQqSID7XD2d fVxwYXIgDQpccGFyZCAN ZdxpreHiLM4EoE== [facility] Work Phone: Performing Lab m1vajZFmQXGhlTGjKzLc DTMqOFDre8xkSQVowQYc ZzEwMzNcZnRuYmpcdWMx EUEoNmGwy7itm379oYVo q5chFFOkSqM9cJUwAZMo lPWyN895NWOjUJnwe5gl f3CtBVNigCBnt7T5LEPW ybgmfDc8uCigL95ge0V0 NigvD5abNPKgSGYxW4To YB2pGWTyRsf5UGZ3ZON3 WCYqFISkD4BjKC7gXFWh rIKaCQh2m7ynwTvjABPj HII6j2ikQTohoyFbPW7f cx1lbAu6t9yjmeWoPAEl OBCiwJVSNBWyE5BndJck Wz5moUy3yMlxXbeiYHD6 Smm9MS8wty68oyz2xTjh ETDsrettDmZ9ELmjXWRh touoVKn9KSewZMPecOS1 THQmiALmN9KjEYicGL2x eme2LVZ9CCpqZHRbDcJ9 NDBcaGVhZGVyeTcyMFxm z625TOA0UfKxDE0jV0Cr a3C3fS3olUOwQXTgpULg MgKuKEEdge8ajQPrNLrw x9OkETV9lkL3kCUqpVJw VWQmCW79Bydni8RlHian w3WgE33hvNF1JPlqp6lu ON1uUqJ0iiUaKVxuk1fq rR7dTyG9TNkfAV0gEP5n CZFjtM2onndwOBArAxDd fydwYKSxgJkinuGaTq8a iFpsIFZ3DDxiL6gioX6p EfX1QDbyA0juzC1yMIf6 WHnvvNU9ZTKzvV8yHK7j udwcf2joCUhiLYazAESp uwC7jgLqMEFqfUWaP0Ld eL7yPAZnPS7accspn3uo GOI6ERizJPVtXYA3ViJj OXSqo9Dsqhb5NwOvj0Zl uDMeKWmbG71ok574PBZx crXdM4eotNMkpuiccDXg qnsfYIppaiS8HLGfPJWa YWluXGYxXGZzMjBcbGFu ZzEwMzNcaGljaFxmMVxk MjKuWCTcWVdcL4dkXjZl FlLnLQKOvWYumz5heGae GVkrtCKeySJceNA1dK6z EFZvqzJogt4cEDNvvGRE lDQ9EThpvuNiZ6rdmqyd JJZ8XWMcPHS8C6eqOUOA dmUsIENsZXZlbGFuZCBP LPD6BWA3DDQfRMSDQCYl BAA9AQM3LJNuNRBqzOIw XHBhclxwYXJkXHBsYWlu DLUnEYJoBqYnbNkotJ0h GhEnPrPlWFspYT5oANBa E2vhuVKpIJCpBHGlU1kd WoAadD6lrTmfRPxqJsQg ZnMyMFxsdHJjaCBMYWJv xqX5a3I1OUvatUThgvoe MVxmczIwXGxhbmcxMDMz UDqxG6rpDzNuULJspNjg XQgga8AyHHRcLOEdYkFf IOnfHXV9u9H9KIoyiTBw zjLOTsCDDI5qcPQwcpwp OV6BLjkuaLXddsadNGst czIyXGxhbmcxMDMzXGhp V8tlTqIbOSMrvFvzWRno j2MwXEGdYWGjFuZsvMCz fQ== [facility] Work Phone: [facility] Work Phone: CNOVon 08-27-2024 CNOV Office Visit (NSFRVW) JG CHAHAL ([id number]) 1940 M Date Time Provider Department 08/27/24 10:00 AM BLANCO HERNANDEZ NSFRVW During your visit today, we recorded the following information about you: Pulse Blood pressure 68/minute 155/74 Blanco Hernandez MD 08/27/2024 12:42 PM Signed SPINE SURGERY ESTABLISHED This is an in-person visit. DATE OF SERVICE: 08/27/2024 DATE OF LAST VISIT: 05/21/2024 SUBJECTIVE: HPI:Jg Chahal is a 84 year old male presenting with family. Today, the patient reports that he feels pain in the middle of their back. While they are able to lie down on their back or their side to go to sleep at night, their pain returns when standing back up in the morning. Patient has also complained of a chronic heart disease. PAIN EVALUATION 08/27/2024 0951 Pain Level: 3 Pain Location: Back-Lower Description: Aching Frequency: Continuous Pain Radiation: Mid back Aggravating Factors: Standing, Walking Alleviating Factors: Lying supine, Side-lying AMBULATORY STATUS: Impaired Community Distances ANTIPLATELET OR ANTICOAGULATION STATUS: Yes, Eliquis 5mg PREVIOUS CONSERVATIVE TREATMENTS: N/A REVIEW OF SYSTEMS: GENERAL: No weight loss or malaise MUSCULOSKELETAL: SEE HPI NEURO: No history of syncope, paralysis, seizures or tremors MEDICATIONS: gabapentin (NEURONTIN) 300 mg capsule Take 1 capsule by mouth two times a day. iv contrast (will be provided with radiology test) CT ABD/PEL -Inject, intravenously, once for 1 dose.No IV access, insert saline lock prior to the beginning of sedation, infusion, injection of imaging exam. Discontinue saline lock post exam. If Pt. has a central line or IVAD, may access for administration according to line specific nursing protocol. Once exam is complete flush line and de-access according to line specific nursing protocol in the CT contrast administration guidelines link. methocarbamol (ROBAXIN) 750 mg tablet Take 1 tablet by mouth three times a day as needed. amLODIPine (NORVASC) 10 mg tablet Take 10 mg by mouth once daily. hydroCHLOROthiazide 12.5 mg capsule Take 12.5 mg by mouth once daily. atenolol (TENORMIN) 25 mg tablet Take 25 mg by mouth once daily. finasteride(PROSCAR 5 MG TAB) Take one(1) tablet daily. SIMVASTATIN 20 MG TAB Take one(1) tablet daily. trazodone hcl(DESYREL 150 MG TAB) as necessary MULTIVITAMINS-MINERA LS-LUTEIN TAB Take one(1) tablet daily. hyoscyamine sublingual (LEVSIN SL) 0.125 mg Dissolve 1 tablet under the tongue every 4 hours as needed for up to 3 days. Patient Entered Questionnaires 06/20/2023 Low Back Pain Questionnaires STarT Risk Score 1 (Low risk for prolonged disability) STarT Distress Score Incomplete STarT Total Score Incomplete PROMIS Score Percentiles 06/20/2023 Physical Health Physical Function Percentile 66 Pain Interference Percentile 31 Percentiles provide an indication of how the patient's score ranks in relation to the general population. Higher percentile rankings indicate better function/quality of life. 50th percentile is the average of the general population and indicates half of respondents had a worse score. Depression Screening: PHQ-9 Self-Harm (Item 9) response options: 0 Not at all 1 Several days 2 More than half the days 3 Nearly every day PHQ-9 Levels: 0-4 No to mild depression 5-9 Mild depression 10-14 Moderate depression 15-19 Moderately severe depression 20-27 Severe depression OBJECTIVE: PHYSICAL EXAM: BP 114/97 Pulse 84 SpO2 99% GENERAL APPEARANCE: Well nourished, well developed, and no apparent distress. NEURO PSYCH: Patient oriented to person, place, and time. Mood pleasant. Benign affect. MUSCULOSKELETAL VISUAL INSPECTION CERVICAL: WNL THORACIC: WNL LUMBAR: WNL MOTOR: 5/5 in all muscle groups. SENSORY: Normal sensory exam GAIT: Normal. NEURO TESTS: None DATA REVIEW:Diagnostic tests reviewed for today's visit, films/specimens were personally reviewed by me: [facility] records independently reviewed Imaging and outside records independently reviewed Images independently reviewed with the patient ASSESSMENT/PLAN Lumbar stenosis with neurogenic claudication Jg Chahal is not a candidate for surgery at this time. I will reach out to Dr. Bowling regarding spinal cord stimulator trial. Surgery consideration will include extension of fusion to L4 with L4-5 TLIF. Follow up: Following above The documentation for this note was completed by Lavelle Hamilton acting as scribe for Blanco Hernandez MD. August 27, 2024 9:56 AM. SIGNATURE: Blanco Hernandez MD PATIENT NAME: Jg Chahal DATE: August 27, 2024 TIME: 9:56 AM PAGER: Allergies As of Date: 08/27/2024 Noted Allergy Reaction ADHESIVE 12/07/2011 4 - Hives CODEINE 07/18/2005 Comments: HEART PALPITATIONS DARVOCET-N 100 (PROPOXYPHENE N (more content not included)... Normal [facility] CT Lumbar spine WO contrasto n 08-06-2024 IMPRESSION: Degenerative and postsurgical changes of the lumbar spine as discussed. No severe narrowing of the bony spinal canal. Severe bilateral bony foraminal stenosis at L3-4, L4-5, and L5-S1. L5-S1 posterior fusion hardware is intact and without CT evidence of loosening. Anatomic Lumbar Variant: None. L4-5 is considered the level of the iliac crest and assume there are 5 lumbar-type vertebrae. Supply Chain Planner: PSCB Transcribe Date/Time: Aug 06 2024 6:16P Dictated by : NADJA SCHMIDT MD This examination was interpreted and the report reviewed and electronically signed by: NADJA SCHMIDT MD on Aug 06 2024 6:22PM [facility] DIVISION OF RADIOLOGY * * *Final Report* * * DATE OF EXAM: Aug 06 2024 3:21PM [facility] 0508 - CT LUMBAR SPINE WO IVCON / PROCEDURE REASON: Radiculopathy of lumbar region * * * * Physician Interpretation * * * * EXAMINATION: CT LUMBAR SPINE WO IVCON CLINICAL HISTORY: Radiculopathy of lumbar region TECHNIQUE: Spiral, high resolution axial unenhanced images were obtained from the thoracolumbar junction to the sacrum with sagittal and coronal planar reconstructions. MQ: CTLSPWO_3 CT Radiation dose: Integrated Dose-Length Product (DLP) for this visit = 1417 mGy*cm. CT Dose Reduction Employed: Automated exposure control(AEC) and iterative recon COMPARISON: MRI lumbar spine 02/19/2024. RESULT: Counting reference: Lumbosacral junction. For the purposes of this report, L4-5 is considered the level of the iliac crest and assume there are 5 lumbar-type vertebrae. Anatomic variant: None. [employer] (topogram) images: Right hip replacement changes. Alignment: Grade 2 anterolisthesis of L5 on S1, unchanged. Grade 1 anterolisthesis of L4 on L5, unchanged. Alignment is otherwise preserved. Bone marrow /fracture: Again noted are changes of posterior decompression at L2-3 as well as at L4-S1. Again noted is posterior instrumented fusion at L5-S1 with bilateral pedicle screws and connecting rods. Hardware appears intact without CT evidence of loosening. There is bony ankylosis between L5 and S1. No fracture. Paraspinal soft tissues: Postsurgical changes at L2 and below, no definite loculated fluid collection identified. Lower thoracic spine: A large anterior osteophytes in the lower thoracic levels. Disc/osteophyte complex bulges at T11-12 and T12-L1 with mild spinal canal narrowing. L1-L2: Disc/osteophyte complex bulge and facet hypertrophy with mild spinal canal and mild bilateral foraminal stenosis. No significant change allowing for difference in technique. L2-L3: Canal is decompressed. Disc bulge and facet hypertrophy with moderate bilateral foraminal stenosis. No significant change. L3-L4: Canal is decompressed. Severe bilateral foraminal stenosis. No significant change. L4-L5: Canal is decompressed. Severe bilateral foraminal stenosis. L5-S1: Canal is decompressed. Severe bilateral bony foraminal stenosis. No significant change. Sacrum and iliac wings: The visualized sacrum and iliac wings are within normal limits. DIVISION OF RADIOLOGY Provider, [facility] [place] - 08/06/2024 * * *Final Report* * * DATE OF EXAM: Aug 06 2024 3:21PM [facility] 0508 - CT LUMBAR SPINE WO IVCON / PROCEDURE REASON: Radiculopathy of lumbar region * * * * Physician Interpretation * * * * EXAMINATION: CT LUMBAR SPINE WO IVCON CLINICAL HISTORY: Radiculopathy of lumbar region TECHNIQUE: Spiral, high resolution axial unenhanced images were obtained from the thoracolumbar junction to the sacrum with sagittal and coronal planar reconstructions. MQ: [id number]_3 CT Radiation dose: Integrated Dose-Length Product (DLP) for this visit = 1417 mGy*cm. CT Dose Reduction Employed: Automated exposure control(AEC) and iterative recon COMPARISON: MRI lumbar spine 02/19/2024. RESULT: Counting reference: Lumbosacral junction. For the purposes of this report, L4-5 is considered the level of the iliac crest and assume there are 5 lumbar-type vertebrae. Anatomic variant: None. [employer] (topogram) images: Right hip replacement changes. Alignment: Grade 2 anterolisthesis of L5 on S1, unchanged. Grade 1 anterolisthesis of L4 on L5, unchanged. Alignment is otherwise preserved. Bone marrow /fracture: Again noted are changes of posterior decompression at L2-3 as well as at L4-S1. Again noted is posterior instrumented fusion at L5-S1 with bilateral pedicle screws and connecting rods. Hardware appears intact without CT evidence of loosening. There is bony ankylosis between L5 and S1. No fracture. Paraspinal soft tissues: Postsurgical changes at L2 and below, no definite loculated fluid collection identified. Lower thoracic spine: A large anterior osteophytes in the lower thoracic levels. Disc/osteophyte complex bulges at T11-12 and T12-L1 with mild spinal canal narrowing. L1-L2: Disc/osteophyte complex bulge and facet hypertrophy with mild spinal canal and mild bilateral foraminal stenosis. No significant change allowing for difference in technique. L2-L3: Canal is decompressed. Disc bulge and facet hypertrophy with moderate bilateral foraminal stenosis. No significant change. L3-L4: Canal is decompressed. Severe bilateral foraminal stenosis. No significant change. L4-L5: Canal is decompressed. Severe bilateral foraminal stenosis. L5-S1: Canal is decompressed. Severe bilateral bony foraminal stenosis. No significant change. Sacrum and iliac wings: The visualized sacrum and iliac wings are within normal limits. IMPRESSION IMPRESSION: Degenerative and postsurgical changes of the lumbar spine as discussed. No severe narrowing of the bony spinal canal. Severe bilateral bony foraminal stenosis at L3-4, L4-5, and L5-S1. L5-S1 posterior fusion hardware is intact and without CT evidence of loosening. Anatomic Lumbar Variant: None. L4-5 is considered the level of the iliac crest and assume there are 5 lumbar-type vertebrae. Supply Chain Planner: BERENICE Transcribe Date/Time: Aug 06 2024 6:16P Dictated by : NADJA SCHMIDT MD This examination was interpreted and the report reviewed and electronically signed by: NADJA SCHMIDT MD on Aug 06 2024 6:22PM EST [facility] Radiology Study observation (narrative) [facility] CT Lumbar spine WO gabbyO rdered By: [facility] Provider on 08-06-2024 [facility] HEMOGLOBIN A1C (POC)on 06-20 HbA1c (Bld) [Mass fraction] 5.8 % Abnormal 4.3 - 5.6 % [facility] Comment on above: Location:[facility], [address], [place], [address] Point of care (POC) Hemoglobin A1c (HGBA1C) testing is intended to assess glucose control and provide a management tool for patients known to have diabetes and their healthcare providers. Target HGBA1C levels may depend on specific clinical circumstances. POC HGBA1C is not intended for use as a diagnostic or screening test; laboratory-based testing should be used for diagnostic purposes. The following information is supplemental and may not be applicable to specific diabetes management situations: The POC device reinforcing steel machine operator provides a normal range of 4.2% to 6.5% for the HGBA1C POC test. However, the [place] [employer] guidelines indicate that patients with HGBA1C in the range of 5.7% to 6.4% are at increased risk for development of diabetes and that intervention by lifestyle modification may be beneficial. A HGBA1C level greater than or equal to 6.5% is considered diagnostic of diabetes, pending confirmatory testing. Use of HGBA1C testing to evaluate glucose control may not be appropriate for patients with hemoglobin variants or other conditions (e.g. anemia) that alter red blood cell lifespan. Interpretation and review of laboratory results Abnormal [facility] HISTORY PHYSICALon HISTORY PHYSICAL HNO ID: [id number] Author: RENAN BOWLING MD Service: Pain Management Author Type: Physician Type: H&P Filed: 03/18/2024 07:14 Note Text: HISTORY AND PHYSICAL EXAMINATION PATIENT NAME: Jg Chahal DATE of SERVICE: 03/18/2024 Jg Chahal is here for the pain mangement procedure. The patients presents with persistent pain complaints. Jg Chahal denies any interval changes or new pain complaints or focal neurologic deficits. 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 Dr. Tee Clemons, Dermatology Basal cell carcinoma (BCC) of skin of face Mohs 04/2021 Cervical spondylosis 09/25/2022 Coronary atherosclerosis of unspecified type of vessel, [place] or graft 01/22/2006 moderate Diverticulosis of colon (without mention of hemorrhage) 07/18/2005 Dyslipidemia Dyspepsia and other specified disorders of function of stomach 07/18/2005 Chronic gastritis, Dyspepsia. Gastric ulcer, unspecified as acute or chronic, without mention of hemorrhage or perforation, with obstruction Generalized osteoarthrosis, unspecified site 07/18/2005 H. pylori infection 05/30/2011 HTN (hypertension) Hypertensive 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 4 chronic kidney disease, or unspecified chronic kidney disease 07/18/2005 Impaired fasting glucose 07/18/2005 Lipoprotein deficiencies 07/18/2005 Low HDL. Lumbago 08/26/2008 Dr. Odin Coon, [facility]. Rotator cuff tear, right 10/21/2012 Salmonella enteritis 08/2010 Type II or unspecified type diabetes mellitus without mention of complication, not stated as uncontrolled 07/08/2007 Unspecified essential hypertension 07/18/2005 PAST SURGICAL HISTORY Procedure Laterality Date ARTHROSCOPY KNEE DIAGNOSTIC W/WO SYNOVIAL BX SPX 11/2003 Arthroscopy, knee ARTHRP ACETBLR/PROX FEM PROSTC AGRFT/ALGRFT Right 08/07/2016 Hip replacement, total ARTHRP KNE CONDYLEANDPLATU MEDIALANDLAT COMPARTMENTS 2001 Knee replacement, total, left ARTHRP KNE CONDYLEANDPLATU MEDIALANDLAT COMPARTMENTS Left 10/01/2017 revision L TKA, [facility] CC ABLATION SVT 04/06/2017 EP study, ablation for A.fib. COLONOSCOPY FLX DX W/COLLJ SPEC WHEN PFRMD 12/24/2002 Colonoscopy COLONOSCOPY FLX DX W/COLLJ SPEC WHEN PFRMD 05/11/2011 Colonoscopy ESOPHAGOGASTRODUODEN OSCOPY TRANSORAL DIAGNOSTIC 03/18/2007 EGD ESOPHAGOGASTRODUODEN OSCOPY TRANSORAL DIAGNOSTIC 06/11/2007 EGD ESOPHAGOGASTRODUODEN OSCOPY TRANSORAL DIAGNOSTIC 05/11/2011 EGD LOPEZ W/O FACETEC FORAMOT/DSC 1/2 VRT SGM CRV 2000 Laminectomy, cervical LAMINECTOMY W/O FFD > 2 VERT SEG LUMBAR 11/05/2008 lumbar fusion LAMINOTOMY (HEMILAMINECTOMY), WITH DECOMPRESSION OF NERVE ROOT(S) Bilateral 05/02/2019 Revision hemilaminectomies L2,L3,L4-L5 LEFT HEART CATH,PERCUTANEOUS 01/22/2006 Cardiac cath, L heart LEFT HEART CATH,PERCUTANEOUS 05/31/2011 Cardiac cath, L heart LEFT HEART CATH,PERCUTANEOUS 11/27/2011 Cardiac cath, L heart LEFT HEART CATH,PERCUTANEOUS 11/27/2013 Cardiac cath, L heart NEUROPLASTY AND/TRANSPOS MEDIAN NRV CARPAL TUNNE 1995 Carpal tunnel decomp R/L OPEN REPAIR OF ROTATOR CUFF ACUTE 1996 Rotator cuff repair, bilateral OPEN REPAIR OF ROTATOR CUFF CHRONIC Left 12/28/2014 Left shoulder open rotator cuff repair and Sub Ac decompression SHX TOTAL SHOULDER REVERSE Left 02/01/2022 Left reverse total shoulder arthroplasty TRANSCATH STENT INIT VESSEL,PERCUT 08/26/2009 Transcath stent init vessel percut TRANSCATH STENT INIT VESSEL,PERCUT 11/16/2010 Transcath stent init vessel percut Social History Tobacco Use Smoking status: Never Smokeless tobacco: Never Vaping Use Vaping Use: Never used Substance Use Topics Alcohol use: No Drug use: No FAMILY HISTORY Problem Relation Age of Onset other (CVA) Mother d 89 stroke other (HTN) Mother other (CHF) Mother Ischemic Heart Disease Father Skin Cancer Father bcc other (Lymphoma) Father d 65 lymphoma other (Skin Ca) Brother Melanoma Brother other (Tremors) Brother Cancer Daughter ovarian Diabetes Maternal Grandmother other (Tremors) Brother Melanoma Other maternal uncle ALLERGIES Allergen Reactions Adhesive Hives Codeine HEART PALPITATIONS Darvocet-N 100 [Pro* Intolerance Heart racing Latex Hives Meperidine Hcl No current facility-administere d medications for this encounter. Physical Exam: Performed in conjunction with observation. The patient is alert and oriented x3. The patient is in no acute distress. Neck: Supple. The range of motion is intact. Lungs: clear CVR: RRR. Extremities: no reported edema o (more content not included)... [facility] NURSING PROGon 03-18-2024 NURSING PROG HNO ID: [id number] Author: SONIA OCONNELL RN Service: Nursing Author Type: Registered Nurse Type: Nursing Progress Note Filed: 03/18/2024 07:19 Note Text: Other: pt ready for OR, call light in reach, and son to stay in waiting room per pt request. [facility] OPERATIVE NOon 03-18-2024 OPERATIVE NO HNO ID: [id number] Author: RENAN BOWLING MD Service: Pain Management Author Type: Physician Type: Operative Report Filed: 03/18/2024 08:49 Note Text: PATIENT NAME: Jg Chahal SERVICE DATE: 03/18/2024 PROCEDURE NOTE PREOPERATIVE DIAGNOSIS(ES) Lumbar radiculopathy Lumbar disc displacement Lumbar canal stenosis without neurogenic claudication Lumbar DDD POSTOPERATIVE DIAGNOSIS(ES): Same PROCEDURE: Left L4-5 lumbar transforaminal epidural steroid injection under fluoroscopy. ANESTHESIA: Conscious sedation with Versed 2mg, IV INDICATIONS: The patient presents for lumbar transforaminal epidural steroid injection. Since the last assessment, the patient denies any new pain complaints and denies any focal neurological deficits. The risks and benefits of the procedure were discussed. Specifically, the risks of bleeding, infection, inadvertent dural puncture, spinal heaches, vasovagal reaction, epidural hematoma, partial or permanent nerve injury were covered. The potential side effects of medications used in procedures including increase in lumbar pain, headaches, facial redness or warmth (flushing), anxiety or mood swings, sleeplessness, fever, high blood sugar, brief reduction in immunity were discussed. The patient expressed understanding of potential risks and wishes to proceed with the procedure. PROCEDURE NOTE: The patient was brought to the operating room. The patient was placed in the prone position with pressure points protected. Continuous hemodynamic monitoring was initiated including blood pressure, EKG, and pulse oximetry. Supplemental oxygen per nasal canula was started. The intravenous medication was administered incrementally to provide conscious sedation and to allow the patient to remain comfortable and conversant throughout the procedure. The lower back was prepped in sterile fashion. Upon AP projection under a fluoroscopy, the lumbar L4-5 level was identified. The fluoroscopy was rotated in oblique projection to identify the neuroforamen. Entry point was marked and anesthetized with 2ml of 0.25% Marcaine. This was followed by insertion of a 5 inch spinal needle, which was inserted and advanced towards the 12 o' clock of the L4-5 neuroforamen. Once the Needle tip contacted the inferior lateral aspect of the pedicle, aspiration was performed which was negative for blood or CSF. This was followed by injection of 0.2 ml of Omnipaque 300, which revealed a spread through the neuroforamen into the anterior epidural space. There was no evidence of intravascular or intrathecal flow. This was then followed by a total injection of 2 mL of 0.25% Marcaine with 40 mg of Depomedrol. The patient tolerated the procedure well. The needle was removed intact. Dry dressing was placed over the injection site. The patient was taken to the recovery room in stable condition. EBL: nil Start time: 8:35 AM End time: 8:46 AM I was present the entire time and personally performed the procedure. SIGNATURE: Renan Bowling MD DATE: March 18, 2024 TIME: 8:48 AM [facility] MR Lumbar spine WO contrasto n 02-19-2024 [facility] Culture, Blood (WB)on 2022 CUB No growth in 5 days. Normal [facility] Comment on above: Performed By: #### M 200.1000 #### [facility] [address] [place], [address] CUB No growth in 5 days. Normal [facility] Comment on above: Performed By: #### M 200.1000 #### [facility] [address] [place], [address] Urine Cultureon 10-13-2023 [facility] Culture exhibits no growth. Normal [facility] Comment on above: Performed By: #### M 101.0111, L400.0001, M100.2200 #### [facility] [address] [place], [address] Absolute lymphocyte countOrd ered By: Vicente Davila on 10-12-2023 Lymphocytes Auto (Unsp spec) [#/Vol] 0.54 10*3/uL 0.83-4.51 [facility] BNP,B-Type NATRIURETIC PEPTI Simeon 10-12-2023 Natriuretic peptide B (Bld) [Mass/Vol] 69.2 pg/mL Normal 0-100 [facility] Comment on above: Performed By: #### M 101.0111, L400.0001, M100.2200 #### [facility] [address] [place], [address] Basophil percentageOrdered B y: Vicente Davila on 10-12-2023 Basophil percentage 5-10 SEEN /hpf 0-5 [facility] Basophils/100 WBC (Bld) 0.5 % 0-1 [facility] Bilirubin [Mass/Vol] 1.20 mg/dL 0.20-1.00 [facility] Comment on above: For patients on eltr ombopag therapy, use of Dimension Traphill TBIL is not recommended. Chloride [Moles/Vol] 100 mmol/L 98-107 [facility] Eosinophils/100 WBC (Bld) 1.6 % 0-5 [facility] Glucose [Mass/Vol] 146 mg/dL 74-106 [facility] Comment on above: Fasting Glucose resu lt greater than or equal to 126 mg/dL suggests DIABETES MELLITUS per A.D.A. criteria. Lactate [Moles/Vol] 1.4 mmol/L 0.4-2.0 [facility] Neutrophils (Bld) [#/Vol] 9.2 10*3/uL 2.0-7.7 [facility] Neutrophils/100 WBC (Bld) 84.4 % 47-70 [facility] Potassium [Moles/Vol] 4.1 mmol/L 3.5-5.1 [facility] Protein [Mass/Vol] 7.7 g/dL 6.4-8.2 [facility] Sodium [Moles/Vol] 132 mmol/L 136-145 [facility] WBC (Bld) [#/Vol] 10.9 10*3/uL 4.4-11.0 [facility] Bilirubin Test strip Ql (U)O rdered By: Vicente Davila on 10-12-2023 Bilirubin Ql (U) Negative Negative [facility] Blood erythrocytes count (nu mber/volume)Ordered By: Vicente Davila on 10-12-2023 RBC (Bld) [#/Vol] 5.48 10*6/uL 4.6-6.2 [facility] Blood hemoglobin measurement (mass/volume)Ordered By: Vicente Davila on 10-12-2023 Hemoglobin (Bld) [Mass/Vol] 15.3 g/dL 13.0-16.5 [facility] Blood lymphocytes/100 leukoc ytesOrdered By: Vicente Davila on 10-12-2023 Lymphocytes/100 WBC (Bld) 5.0 % 19-41 [facility] Blood manual differential co mment interpretation (narrative result)Ordered By: Vicente Davila on 10-12-2023 Manual differential comment Ryland (Bld) [Interp] SEE COMMENT [facility] Comment on above: LYMPHOPENIA NOTED Blood monocytes/100 leukocyt esOrdered By: Vicente Davila on 10-12-2023 Monocytes/100 WBC (Bld) 8.0 % 0-10 [facility] Blood platelet adequacy dete ction by light microscopyOrdered By: Vicente Davila on 10-12-2023 Platelets LM Ql (Bld) ADEQUATE ADEQ [facility] Blood platelet mean volumeOr dered By: Vicente Davila on 10-12-2023 Platelet mean volume (Bld) [Entitic vol] 9.0 fL 6.2-12.0 [facility] CBC W/Diff, Automatedon 09-20 PLT EST [facility]QUATE [facility] Comment on above: Performed By: #### M 101.0111, L400.0001, M100.0 #### [facility] [address] [place], [place], [id number] RED CELL MORPH NORM C+C Normal NORM C C [facility] Comment on above: Performed By: #### M 101.0111, L400.0001, M100.2200 #### [facility] [address] [place], [place], [id number] SMEAR COMMENT SEE COMMENT Normal [facility] Comment on above: Result Comment: LYMP HOPENIA NOTED Performed By: #### M 101.0111, L400.0001, M100.2200 #### [facility] [address] [place], [place], [address] Chest 1 View (Portable)on Chest 1 View (Portable) [facility] Imaging Services [address] [place] [address] Chest 1 View (Portable) MR#: [id number] Acct: [id number] Name: JG CHAAHL Rep #: [id number] : 1940 M 83 From: Uri Pang MD PCP: Dr. Galindo Yuan MD Status: REG ER Study: Chest 1 View (Portable) Date of Exam: 10/12/23 Exam# [id number] Ordering Dr: Vicente Davila DO [id number] STUDY: X-RAY CHEST REASON FOR EXAM: Male, 83 years old. cough TECHNIQUE: AP portable COMPARISON: June 24, 2023. FINDINGS: The lungs are clear and expanded. There is no demonstrated pleural abnormality. Normal size heart. Normal mediastinum and savana. Normal visualized pulmonary arteries. Mildly calcified aortic arch and descending thoracic aorta. Dorsal spine demonstrates degenerative change. Normal visualized ribs, and clavicles. There are degenerative changes of the right shoulder and prosthesis on the left. Status post cervical fusion. There is no demonstrated abnormality of the visualized soft tissue structures of the upper abdomen. RAD/Chest 1 View (Portable) IMPRESSION: No acute cardiopulmonary pathology. Electronically Signed: Uri Pang MD at 16:44 EST , CC: Dr. Vicente Davila DO; Dr. Galindo Yuan MD Supply Chain Planner: Signed Normal [facility] Comprehensive Metabolic Prof ilon 10-12-2023 Albumin [Mass/Vol] 3.6 g/dL Normal 3.2-5.0 [facility] Comment on above: Order Comment: 'TROP ' Serial specimen #1, #2 or #3: 1 Performed By: #### M 101.0111, L400.0001, M1.0 #### [facility] [address] [place], [address] Albumin/Globulin [Mass ratio] 0.9 {ratio} Normal 0.9-2.4 [facility] Comment on above: Order Comment: 'TROP ' Serial specimen #1, #2 or #3: 1 Performed By: #### M 101.0111, L400.0001, M1.2199 #### [facility] [address] [place], [address] ALK P 127 U/L High 45-117 [facility] Comment on above: Order Comment: 'TROP ' Serial specimen #1, #2 or #3: 1 Performed By: #### M 101.0111, L400.0001, #### [facility] [address] [place], [address] ALT [Catalytic activity/Vol] 20 U/L Normal 16-61 [facility] Comment on above: Order Comment: 'TROP ' Serial specimen #1, #2 or #3: 1 Performed By: #### M 101.0111, L400.0001, M1.0 #### [facility] [address] [place], [address] AST [Catalytic activity/Vol] 13 U/L Low 15-37 [facility] Comment on above: Order Comment: 'TROP ' Serial specimen #1, #2 or #3: 1 Performed By: #### M 101.0111, L400.0001, M1.0 #### [facility] [address] [place], [address] Bilirubin [Mass/Vol] 1.20 mg/dL High 0.20-1.00 [facility] Comment on above: Order Comment: 'TROP ' Serial specimen #1, #2 or #3: 1 Result Comment: For patients on eltrombopag therapy, use of Dimension Traphill TBIL is not recommended. Performed By: #### M 101.0111, L400.0001, #### [facility] [address] [place], [address] BUN/CRE 10.0 RATIO Normal 10-20 [facility] Comment on above: Order Comment: 'TROP ' Serial specimen #1, #2 or #3: 1 Performed By: #### M 101.0111, L400.0001, #### [facility] [address] [place], [address] CA,Total 9.2 mg/dL Normal 8.5-10.1 [facility] Comment on above: Order Comment: 'TROP ' Serial specimen #1, #2 or #3: 1 Performed By: #### M 101.0111, L400.0001, #### [facility] [address] [place], [address] Chloride [Moles/Vol] 100 mmol/L Normal 98-107 [facility] Comment on above: Order Comment: 'TROP ' Serial specimen #1, #2 or #3: 1 Performed By: #### M 101.0111, L400.0001, #### [facility] [address] [place], [address] CO2 [Moles/Vol] 27.0 mmol/L Normal 21.0-32.0 [facility] Comment on above: Order Comment: 'TROP ' Serial specimen #1, #2 or #3: 1 Performed By: #### M 101.0111, L400.0001, #### [facility] [address] [place], [address] Creatinine [Mass/Vol] 1.50 mg/dL High 0.70-1.30 [facility] Comment on above: Order Comment: 'TROP ' Serial specimen #1, #2 or #3: 1 Result Comment: The validity of the calculated GFR GFRAA in patients over 70 years has not been determined. Clinical correlation is essential. Performed By: #### M 101.0111, L400.0001, M10 #### [facility] [address] [place], [address] ECRCL 34.89 ml/min Normal [facility] Comment on above: Order Comment: 'TROP ' Serial specimen #1, #2 or #3: 1 Performed By: #### M 101.0111, L400.0001, #### [facility] [address] [place], [address] EST GFR - AA 58 mL/min Low >60 [facility] Comment on above: Order Comment: 'TROP ' Serial specimen #1, #2 or #3: 1 Result Comment: Afri can [place] GFR Calc Performed By: #### M 101.0111, L400.0001, 0 #### [facility] [address] [place], [address] GAP 5 Normal 5-15 [facility] Comment on above: Order Comment: 'TROP ' Serial specimen #1, #2 or #3: 1 Performed By: #### M 101.0111, L400.0001, M10 #### [facility] [address] [place], [address] GFR/1.73 sq M.predicted among non-blacks MDRD (S/P/Bld) [Vol rate/Area] 48 mL/min/{1.73_m2} Low >60 [facility] Comment on above: Order Comment: 'TROP ' Serial specimen #1, #2 or #3: 1 Result Comment: Non- GFR Calc Performed By: #### M 101.0111, L400.0001, .2199 #### [facility] [address] [place], [address] Globulin (S) [Mass/Vol] 4.1 g/dL Normal 2.2-4.[address] [facility] Comment on above: Order Comment: 'TROP ' Serial specimen #1, #2 or #3: 1 Performed By: #### M 101.0111, L400.0001, .2199 #### [facility] [address] [place], [address] Glucose [Mass/Vol] 146 mg/dL High 74-106 [facility] Comment on above: Order Comment: 'TROP ' Serial specimen #1, #2 or #3: 1 Result Comment: Fast ing Glucose result greater than or equal to 126 mg/dL suggests DIABETES MELLITUS per A.D.A. criteria. Performed By: #### M 101.0111, L400.0001, #### [facility] [address] [place], [address] Potassium [Moles/Vol] 4.1 mmol/L Normal 3.5-5.1 [facility] Comment on above: Order Comment: 'TROP ' Serial specimen #1, #2 or #3: 1 Performed By: #### M 101.0111, L400.0001, #### [facility] [address] [place], [address] Sodium [Moles/Vol] 132 mmol/L Low 136-145 [facility] Comment on above: Order Comment: 'TROP ' Serial specimen #1, #2 or #3: 1 Performed By: #### M 101.0111, L400.0001, M1.0 #### [facility] [address] [place], [address] T PROT 7.7 g/dL Normal 6.4-8.2 [facility] Comment on above: Order Comment: 'TROP ' Serial specimen #1, #2 or #3: 1 Performed By: #### M 101.0111, L400.0001, M100.2200 #### [facility] [address] [place], [address] Urea nitrogen [Mass/Vol] 15 mg/dL Normal 7-18 [facility] Comment on above: Order Comment: 'TROP ' Serial specimen #1, #2 or #3: 1 Performed By: #### M 101.0111, L400.0001, M100.2200 #### [facility] [address] [place], [address] Determination of erythrocyte mean corpuscular volume (MCV)Ordered By: Vicente Davila on 10-12-2023 MCV (RBC) [Entitic vol] 85.4 fL 80-94 [facility] Emergency Department Summary on 10-12-2023 Emergency Department Summary [facility] Medical Records Department [address] [place] [address] Emergency Department Summary 10/12/23 MR#: [id number] Acct: [id number] Name: JG CHAHAL Rep #: [id number] : 1940 83 From: Vicente Davila DO PCP: Dr. Galindo Yuan MD Status:DEP ER Location: ED HPI History of Present Illness Chief Complaint: Cold Sx Informant: patient, spouse/S.O., EMS and SNF Narrative Narrative: 83-year-old male presenting to the emergency department with fever. Patient states that on Sunday he developed sore throat and a cough. states he had 103 fever today. Reportedly was swabbed for strep and influenza and was negative. Patient states he is coughing up phlegm. He does not feel short of breath. He states he feels nauseated and generally weak. He notes a history of congestive heart failure, atrial fibrillation, coronary artery disease. The patient's paperwork that accompanies him list amoxicillin as a current medication but he does not know anything about that. There is no indication on the paperwork that tells me when it was started or for what reason. Patient states he feels thirsty. No diarrhea. No rashes. He notes generalized myalgias [facility] Medical History Ambulates with cane Arthritis Back pain Cancer Cardiology follow-up encounter CPAP (continuous positive airway pressure) dependence Diabetes Excessive bleeding Gastric reflux History of echocardiogram History of renal disease History of stress test Hypertension Non-smoker Restless legs Sleep apnea Wears dentures Home Medications apixaban 5 mg tablet (Eliquis) 5 mg PO BID BLOOD THINNER 05/18/16 [History Last Taken 01/29/22] atorvastatin 40 mg tablet 40 mg PO QHS CHOLESTEROL 05/18/16 [History Last Taken 01/31/22] cholecalciferol (vitamin D3) 25 mcg (1,000 unit) tablet (Vitamin D3) 1,000 unit PO DAILY SUPPLEMENT 05/18/16 [History Last Taken 01/27/22] pantoprazole 40 mg tablet,delayed release 40 mg PO DAILY GERD 05/18/16 [History Last Taken 01/31/22] nitroglycerin 0.4 mg sublingual tablet 0.4 mg sublingual Q5M PRN Chest Pain ##1 05/23/16 [Rx Last Taken 01/31/22] cyanocobalamin (vitamin B-12) 500 mcg tablet (B-12 DOTS) 1,000 mcg PO DAILY@0800 SUPPLEMENT 11/23/16 [History Last Taken 01/27/22] metoprolol succinate 25 mg tablet,extended release 24 hr 50 mg PO DAILY BP 06/24/17 [History Last Taken 01/31/22] sennosides 8.6 mg-docusate sodium 50 mg tablet (Stool Softener-Stimulant Laxative) 2 tab PO DAILY STOOL SOFTENER 06/24/17 [History Last Taken 01/31/22] losartan 50 mg tablet 50 mg PO DAILY BP 09/18/17 [History Last Taken 01/31/22] amlodipine 5 mg tablet 5 mg PO DAILY BP 01/18/22 [History Last Taken 01/31/22] dofetilide 250 mcg capsule 250 mcg PO Q12 HEART RATE 01/18/22 [History Last Taken 01/31/22] magnesium oxide 400 mg (241.3 mg magnesium) tablet 400 mg PO DAILYCM SUPPLEMENT 01/18/22 [History Last Taken 01/27/22] melatonin 3 mg tablet 3 mg PO QHS SLEEP 01/18/22 [History Last Taken 01/31/22] acetaminophen 500 mg tablet 1,000 mg (2 x 500 mg) PO Q8 14 days #84 tabs 02/02/22 [Rx Last Taken Unknown] tramadol 50 mg tablet 50 - 100 mg (1 - 2 x 50 mg) PO Q6H PRN PRN Pain Score 4-10 7 days #48 tabs 02/02/22 [Rx Last Taken Unknown] meclizine 25 mg tablet 25 mg PO BID PRN dizziness #20 tabs 08/08/22 [Rx Last Taken Unknown] molnupiravir 200 mg capsule (EUA) 800 mg (4 x 200 mg) PO Q12H 5 days #40 caps 10/12/23 [Rx Last Taken Unknown] Allergy/AdvReac Type Severity Reaction Status Date / Time adhesive tape Allergy Rash Verified 10/12/23 16:04 Latex, Natural Rubber Allergy Other Verified 10/12/23 16:04 codeine AdvReac Other Verified 10/12/23 16:04 hydrocodone bitartrate AdvReac Nausea Verified 10/12/23 16:04 [From Vicodin] meperidine HCl [From Demerol] AdvReac Other Verified 10/12/23 16:04 propoxyphene napsylate AdvReac Other Verified 10/12/23 16:04 [From Darvocet-N] Surgical History History of back surgery History of back surgery History of cardiac catheterization History of carpal tunnel release of both wrists History of coronary artery stent placement History of shoulder surgery Hx of neck surgery Hx of prior ablation treatment Hx of total hip arthroplasty Hx of total knee replacement Hx of total knee replacement Social History household members: spouse housing: house Smoking Status: Never smoker ROS ROS ED Constitutional Constitutional ED: Reports chills, fever(s) and sweats; Denies weight loss Eyes Eyes: Denies change in vision or diplopia ENT ENT ED: Reports sore throat; Denies ear pain or rhinorrhea Cardiovascular Cardiovascular: Denies chest pain, orthopnea, palpitations or racing h (more content not included)... Normal [facility] GLUCOSE, BLOOD (POC)on 10-12 Glucose [Mass/Vol] 143 mg/dL Abnormal 74 - 99 mg/dL [facility] Hematocrit Auto (Bld) [Volum e fraction]Ordered By: Vicente Davila on 10-12-2023 Hematocrit (Bld) [Volume fraction] 46.8 % 40-54 [facility] INFLUENZA A&B MOLECULAR (POC )on 10-12-2023 Flu A (POCT) Negative Negative [facility] Flu B (POCT) Negative Negative [facility] Procedural Control Valid [facility] INR in Blood by Coagulation assayOrdered By: Vicente Davila on 10-12-2023 INR Coag (Bld) [Relative time] 1.4 {INR} [facility] Influenza virus A and B and SARS-CoV-2 (COVID-19) Ag panel - Upper respiratory specimOrdered By: Vicente Davila on 10-12-2023 SARS-CoV-2 & FLU Antigen (Rapid) SARS-CoV-2 (COVID 19) [facility] Ketones Test strip Ql (U)Ord ered By: Vicente Davila on 10-12-2023 Ketones Ql (U) 5 mg/dl Negative [facility] L501.4020on 10-12-2023 TROPONIN-I HS 14 pg/mL Normal 3.0-78.0 [facility] Comment on above: Order Comment: 'TROP ' Serial specimen #1, #2 or #3: 1 Result Comment: Plea se Note: New Test Units and Gender Specific Reference Ranges. For more information see Policy Stat Procedure Traphill High Sensitivity Troponin (TNIH) and attachments. Performed By: #### M 101.0111, L400.0001, M100.2200 #### [facility] [address] [place], [address] Laboratory - Chemistry and C hemistry - challengeOrdered By: Vicente Davila on 10-12-2023 ALP [Catalytic activity/Vol] 127 U/L 45-117 [facility] ALT [Catalytic activity/Vol] 20 U/L 16-61 [facility] CO2 [Moles/Vol] 27.0 mmol/L 21.0-32.0 [facility] Globulin (S) [Mass/Vol] 4.1 g/dL 2.2-4.2 [facility] Natriuretic peptide B (Bld) [Mass/Vol] 69.2 pg/mL 0-100 [facility] Urea nitrogen/Creatinine [Mass ratio] 10.0 mg/mg 10-20 [facility] Laboratory - CoagulationOrde red By: Vicente Davila on 10-12-2023 aPTT Coag (Bld) [Time] 33.4 s 24.1-36.2 [facility] PT Coag (PPP) [Time] 16.9 s 11.7-14.9 [facility] Laboratory - Hematology and Cell countsOrdered By: Vicente Davila on 10-12-2023 Erythrocyte distribution width (RBC) [Entitic vol] 42.7 fL 35.1-43.9 [facility] Erythrocyte distribution width (RBC) [Ratio] 13.7 % 11.6-14.6 [facility] Immature granulocytes/100 WBC (Bld) 0.500 % 0.0-0.9 [facility] Comment on above: IG% - Immature Granu locytes (promyelocytes, myelocytes and metamyelocytes) > 1% indicates that a LEFT SHIFT is Present. MCH (RBC) [Entitic mass] 27.9 pg 27.0-32.0 [facility] Nucleated RBC/100 WBC (Bld) [Ratio] 0 % 0-5 [facility] Lactic Acidon 10-12-2023 Lactate [Moles/Vol] 1.4 mmol/L Normal 0.4-1.9 [facility] Comment on above: Order Comment: Y Performed By: #### L 500.4050, L501.4020, L100.0100, L503.6005, L300.3900, L300.4310 #### [facility] [address] [place], [address] M101.0111on 10-12-2023 M101.0111 *Negative results from patients with symptom onset beyond five days should be treated as presumptive and confirmed by a molecular assay if clinically necessary. Negative results should not be used as the sole basis for treatment or for patient management. FLUABV+SARS-CoV2 Ag Pnl Up resp IA.rapid *Positive results do not differentiate between SARS-CoV and SARS-CoV-2. FLUABV+SARS-CoV2 Ag Pnl Up resp IA.rapid Negative Influenza results should be confirmed with FLU PANEL MOLECULAR if indicated. FLUABV+SARS-CoV2 Ag Pnl Up resp IA.rapid * This test has not been FDA cleared or approved; the test has been authorized by FDA under an Emergency Use Authorization (EAU) for use by laboratories certified under CLIA that meet the requirements to perform moderate, high, or waived complexity tests. FLUABV+SARS-CoV2 Ag Pnl Up resp IA.rapid Normal Reference Range: Negative [place], JEY method SARS-CoV-2 (COVID 19) A *POSITIVE* A Influenza Ag, Direct NEGATIVE for Influenza A/B Antigen (See Note) SARS-CoV-2 (COVID 19) Normal [facility] Comment on above: Performed By: #### M 101.0111, L400.0001, M100.2200 #### [facility] [address] [place], [address] MCHC Auto (RBC) [Mass/Vol]Or dered By: Vicente Davila on 10-12-2023 MCHC (RBC) [Mass/Vol] 32.7 g/dL 32-36 [facility] Mucus LM Ql (Urine sed)Order ed By: Vicente Davila on 10-12-2023 Mucus Ql (Urine sed) 1+ /hpf [facility] Nitrite Test strip Ql (U)Ord ered By: Vicente Davila on 10-12-2023 Nitrite Ql (U) Negative Negative [facility] No Panel InformationOrdered By: Vicente Davila on 10-12-2023 Estimated Creatinine Clearance Calc 34.89 ml/min [facility] Estimated GFR (MDRD) Amer 58 mL/min >60 [facility] Comment on above: GFR Calc Estimated GFR (MDRD) Non-Af Amer 48 mL/min >60 [facility] Comment on above: Non- GFR Calc Troponin I High Sensitivity 14 pg/mL 3.0-78.0 [facility] Comment on above: Please Note: New Serene t Units and Gender Specific Reference Ranges. For more information see Policy Stat Procedure Traphill High Sensitivity Troponin (TNIH) and attachments. Partial Thromboplast Timeon 10-12-2023 aPTT Coag (Bld) [Time] 33.4 s Normal 24.1-36.2 [facility] Comment on above: Performed By: #### M 101.0111, L400.0001, #### [facility] [address] [place], [address] Platelets bldOrdered By: Kalen Davila on 10-12-2023 Platelets (Bld) [#/Vol] 189 10*3/uL 150-450 [facility] Protein Test strip Ql (U)Ord ered By: Vicente Davila on 10-12-2023 Protein Ql (U) 100 mg/dl Negative [facility] Prothrombin Time w/INRon INR Coag (PPP) [Relative time] 1.4 {INR} Normal [facility] Comment on above: Performed By: #### M 101.0111, L400.0001, #### [facility] [address] [place], [address] PT Coag (PPP) [Time] 16.9 s High 11.7-14.9 [facility] Comment on above: Performed By: #### M 101.0111, L400.0001, #### [facility] [address] [place], [address] RBC morphologyOrdered By: Boris Davila on 10-12-2023 RBC morphology finding Nom (Bld) NORM C+C NORMAL NORM C&C [facility] STREP A MOLECULAR (POC)on Procedural Control Valid [facility] Strep A (POCT) Negative Negative [facility] Serum or plasma albumin isabell urement (mass/volume)Ordered By: Vicente Davila on 10-12-2023 Albumin [Mass/Vol] 3.6 g/dL 3.2-5.0 [facility] Serum or plasma albumin/glob ulin mass ratioOrdered By: Vicente Davila on 10-12-2023 Albumin/Globulin [Mass ratio] 0.9 {ratio} 0.9-2.4 [facility] Serum or plasma calcium isabell urement (mass/volume)Ordered By: Vicente Davila on 10-12-2023 Calcium [Mass/Vol] 9.2 mg/dL 8.5-10.1 [facility] Serum or plasma creatinine m easurement (mass/volume)Ordered By: Vicente Davila on 10-12-2023 Creatinine [Mass/Vol] 1.50 mg/dL 0.70-1.30 [facility] Comment on above: The validity of the calculated GFR & GFRAA in patients over 70 years has not been determined. Clinical correlation is essential. Serum or plasma urea nitroge n measurement (mass/volume)Ordered By: Vicente Davila on 10-12-2023 Urea nitrogen [Mass/Vol] 15 mg/dL 7-18 [facility] Squamous epithelial cells de tection in urine sediment by light microscopyOrdered By: Vicente Davila on 10-12-2023 Epithelial cells.squamous LM Ql (Urine sed) 0 SEEN /hpf 0-5 [facility] Thin prep Papanicolaou smear with manual screeningOrdered By: Vicente Davila on 10-12-2023 Thin prep Papanicolaou smear with manual screening 13 U/L 15-37 [facility] Thin prep Papanicolaou smear with manual screening 5 5-15 [facility] UA DIP, URINE (POC)on 2022 BILIRUBIN UA (POCT) Negative Negative [facility] CLARITY UA (POCT) Clear [facility] COLOR UA (POCT) Yellow [facility] GLUCOSE UA (POCT) Negative Negative mg/dL [facility] Hemoglobin Ql (U) Moderate Abnormal Negative [facility] KETONE UA (POCT) Negative Negative mg/dL [facility] LEUKOCYTES UA (POCT) Negative Negative [facility] NITRITE UA (POCT) Negative [facility]A ([facility]) 7.0 4.5 - 8.0 [facility] Protein Ql (U) 100 mg/dL Abnormal Negative mg/dL [facility] SPECIFIC GRAVITY UA (POCT) 1.020 1.005 - 1.030 [facility] UROBILINOGEN UA (POCT) 1.0 E.U./dL [place] E.U./dL [facility] Urinalysis, Completeon 10-12 BACTERIA RARE Normal None Seen [facility] Comment on above: Order Comment: PEPE CTOR TO SPECIFY Performed By: #### M 101.0111, L400.0001, M100.2200 #### [facility] [address] [place], [address] Mucus Ql (Urine sed) 1+ /hpf Normal [facility] Comment on above: Order Comment: PEPE CTOR TO SPECIFY Performed By: #### M 101.0111, L400.0001, M100.2200 #### [facility] [address] [place], [address] WBC 5-10 SEEN Normal 0-5 [facility] Comment on above: Order Comment: PEPE CTOR TO SPECIFY Performed By: #### M 101.0111, L400.0001, M100.2200 #### [facility] [address] [place], [address] EPI,SQUAMOUS 0 SEEN Normal 0-5 [facility] Comment on above: Order Comment: PEPE CTOR TO SPECIFY Performed By: #### M 101.0111, L400.0001, M100.2200 #### [facility] [address] [place], [address] RBC 0 SEEN Normal 0-5 [facility] Comment on above: Order Comment: PEPE CTOR TO SPECIFY Performed By: #### M 101.0111, L400.0001, M100.2200 #### [facility] [address] [place], [address] Urine blood detectionOrdered By: Vicente Davila on 10-12-2023 RBC Ql (U) 50 /ul Negative [facility] RBC Ql (U) 0 SEEN /hpf 0-5 [facility] Urine clarityOrdered By: Kalen Davila on 10-12-2023 Clarity (U) Clear Clear [facility] Urine color determinationOrd ered By: Vicente Davila on 10-12-2023 Color (U) Yellow Yellow [facility] Urine glucose detectionOrder ed By: Vicente Davila on 10-12-2023 Glucose Ql (U) Normal mg/dl Normal [facility] Urine leukocyte esterase det ection by dipstickOrdered By: Vicente Davila on 10-12-2023 Leukocyte esterase Test strip Ql (U) 25 /ul Negative [facility] Urine pHOrdered By: Vicente morales on 10-12-2023 pH (U) 6.0 [pH] 5.0 - 8.0 [facility] Urine sediment bacteria coun t by microscopy (number/high power field)Ordered By: Vicente Davila on 10-12-2023 Bacteria LM.HPF (Urine sed) [#/Area] RARE /hpf None Seen [facility] Urine specific gravity measu rementOrdered By: Vicente Davila on 10-12-2023 Specific gravity (U) [Rel density] 1.015 1.002-1.030 [facility] Urobilinogen Auto test strip Ql (U)Ordered By: Vicente Davila on 10-12-2023 Urobilinogen Ql (U) 1 mg/dl Normal [facility] ECG COMPLETEon 07-21-2023 Atrial Rate 66 BPM [facility] Calculated P [place] 76 degrees [facility] Calculated R [place] 26 degrees [facility] Calculated T [place] 6 degrees [facility] P-R Interval 236 ms [facility] QRS Duration 86 ms [facility] QT Interval 412 ms [facility] QTC Calculation (Bazett) 431 ms [facility] Ventricular Rate 66 BPM [facility] d [facility] 12 Lead EKGon 06-24-2023 12 Lead EKG [facility] [address] [place] [address] 12 Lead EKG 06/24/23 0800 MR#: [id number] Acct: [id number] Name: JG CHAHAL Rep #: [id number] : 1940 82 From: Humberto Tierney MD Attending Dr: Status: DEP ER Ordering Dr: Koffi Rome DO Date: 06/24/23 Location: ED Sex: M C Admitted: Test Reason : CP Blood Pressure : / mmHG Vent. Rate : 066 BPM Atrial Rate : 066 BPM P-R Int : 244 ms QRS Dur : 086 ms QT Int : 440 ms P-R-T Axes : 083 025 015 degrees QTc Int : 461 ms Sinus rhythm with 1st degree A-V block Otherwise normal ECG Confirmed by HUMBERTO TIERNEY MD ([id number]), writer editor DIANE ROGERS ([id number]) on 06/25/2023 1:27:06 PM Referred By: ALMA Confirmed By:HUMBERTO TIERNEY MD 06/25/23 1327 Date Humberto Tierney MD CC: Dr. Kofif Rome DO; Dr. Galindo Yuan MD Signed Normal [facility] Absolute lymphocyte countOrd ered By: Koffi Rome on 06-24-2023 Lymphocytes Auto (Unsp spec) [#/Vol] 1.59 10*3/uL 0.83-4.51 [facility] Basic Metabolic Profile (BMP )on 06-24-2023 BUN/CRE 14.3 RATIO Normal 10-20 [facility] Comment on above: Order Comment: 1Y Performed By: #### M 101.0111, L400.0001, #### [facility] [address] [place], [address] CA,Total 9.0 mg/dL Normal 8.5-10.1 [facility] Comment on above: Order Comment: 1Y Performed By: #### M 101.0111, L400.0001, M100.0 #### [facility] [address] [place], [address] Chloride [Moles/Vol] 108 mmol/L High 98-107 [facility] Comment on above: Order Comment: 1Y Performed By: #### M 101.0111, L400.0001, #### [facility] [address] [place], [address] CO2 [Moles/Vol] 27.0 mmol/L Normal 21.0-32.0 [facility] Comment on above: Order Comment: 1Y Performed By: #### M 101.0111, L400.0001, #### [facility] [address] [place], [address] Creatinine [Mass/Vol] 1.19 mg/dL Normal 0.70-1.30 [facility] Comment on above: Order Comment: 1Y Result Comment: The validity of the calculated GFR GFRAA in patients over 70 years has not been determined. Clinical correlation is essential. Performed By: #### M 101.0111, L400.0001, #### [facility] [address] [place], [address] ECRCL 44.75 ml/min Normal [facility] Comment on above: Order Comment: 1Y Performed By: #### M 101.0111, L400.0001, #### [facility] [address] [place], [address] EST GFR - AA 75 mL/min Normal >60 [facility] Comment on above: Order Comment: 1Y Result Comment: Afri can Faro[place] GFR Calc Performed By: #### M 101.0111, L400.0001, #### [facility] [address] [place], [address] GAP 5 Normal 5-15 [facility] Comment on above: Order Comment: 1Y Performed By: #### M 101.0111, L400.0001, #### [facility] [address] [place], [address] GFR/1.73 sq M.predicted among non-blacks MDRD (S/P/Bld) [Vol rate/Area] 62 mL/min/{1.73_m2} Normal >60 [facility] Comment on above: Order Comment: 1Y Result Comment: Non- GFR Calc Performed By: #### M 101.0111, L400.0001, #### [facility] [address] [place], [address] Glucose [Mass/Vol] 129 mg/dL High 74-106 [facility] Comment on above: Order Comment: 1Y Result Comment: Fast ing Glucose result greater than or equal to 126 mg/dL suggests DIABETES MELLITUS per A.D.A. criteria. Performed By: #### M 101.0111, L400.0001, #### [facility] [address] [place], [address] Potassium [Moles/Vol] 3.9 mmol/L Normal 3.5-5.1 [facility] Comment on above: Order Comment: 1Y Performed By: #### M 101.0111, L400.0001, #### [facility] [address] [place], [address] Sodium [Moles/Vol] 140 mmol/L Normal 136-145 [facility] Comment on above: Order Comment: 1Y Performed By: #### M 101.0111, L400.0001, .0 #### [facility] [address] [place], [address] Urea nitrogen [Mass/Vol] 17 mg/dL Normal 7-18 [facility] Comment on above: Order Comment: 1Y Performed By: #### M 101.0111, L400.0001, .0 #### [facility] [address] [place], [address] Basophil percentageOrdered B y: Koffi Rome on 06-24-2023 Basophils/100 WBC (Bld) 0.9 % 0-1 [facility] Chloride [Moles/Vol] 108 mmol/L 98-107 [facility] Eosinophils/100 WBC (Bld) 1.6 % 0-5 [facility] Glucose [Mass/Vol] 129 mg/dL 74-106 [facility] Comment on above: Fasting Glucose resu lt greater than or equal to 126 mg/dL suggests DIABETES MELLITUS per A.D.A. criteria. Neutrophils (Bld) [#/Vol] 5.2 10*3/uL 2.0-7.7 [facility] Neutrophils/100 WBC (Bld) 69.3 % 47-70 [facility] Potassium [Moles/Vol] 3.9 mmol/L 3.5-5.1 [facility] Sodium [Moles/Vol] 140 mmol/L 136-145 [facility] WBC (Bld) [#/Vol] 7.5 10*3/uL 4.4-11.0 [facility] Blood erythrocytes count (nu mber/volume)Ordered By: Koffi Rome on 06-24-2023 RBC (Bld) [#/Vol] 4.95 10*6/uL 4.6-6.2 [facility] Blood hemoglobin measurement (mass/volume)Ordered By: Koffi Rome on 06-24-2023 Hemoglobin (Bld) [Mass/Vol] 14.2 g/dL 13.0-16.5 [facility] Blood lymphocytes/100 leukoc ytesOrdered By: Koffi Rome on 06-24-2023 Lymphocytes/100 WBC (Bld) 21.2 % 19-41 [facility] Blood monocytes/100 leukocyt esOrdered By: Koffi Rome on 06-24-2023 Monocytes/100 WBC (Bld) 6.7 % 0-10 [facility] Blood platelet mean volumeOr dered By: Koffi Rome on 06-24-2023 Platelet mean volume (Bld) [Entitic vol] 9.0 fL 6.2-12.0 [facility] CBC W/Diff, Automatedon Absolute Lymph 1.59 X10 3/uL Normal 0.83-4.51 [facility] Comment on above: Performed By: #### M 101.0111, L400.0001, #### [facility] [address] [place], [address] Absolute Neut 5.2 X10 3/uL Normal 2.0-7.7 [facility] Comment on above: Performed By: #### M 101.0111, L400.0001, #### [facility] [address] [place], [address] Basophils/100 WBC (Bld) 0.9 % Normal 0-1 [facility] Comment on above: Performed By: #### M 101.0111, L400.0001, #### [facility] [address] [place], [address] Eosinophils/100 WBC (Bld) 1.6 % Normal 0-5 [facility] Comment on above: Performed By: #### M 101.0111, L400.0001, #### [facility] [address] [place], [address] Erythrocyte distribution width (RBC) [Ratio] 14.2 % Normal 11.6-14.6 [facility] Comment on above: Performed By: #### M 101.0111, L400.0001, #### [facility] [address] [place], [address] Hematocrit (Bld) [Volume fraction] 45.6 % Normal 40-54 [facility] Comment on above: Performed By: #### M 101.0111, L400.0001, #### [facility] [address] [place], [address] Hemoglobin (Bld) [Mass/Vol] 14.2 g/dL Normal 13.0-16.5 [facility] Comment on above: Performed By: #### M 101.0111, L400.0001, #### [facility] [address] [place], [address] IG% 0.300 Normal 0.0-0.9 [facility] Comment on above: Result Comment: IG% - Immature Granulocytes (promyelocytes, myelocytes and metamyelocytes) > 1% indicates that a LEFT SHIFT is Present. Performed By: #### M 101.0111, L400.0001, #### [facility] [address] [place], [address] Lymphocytes/100 WBC (Bld) 21.2 % Normal 19-41 [facility] Comment on above: Performed By: #### M 101.0111, L400.0001, #### [facility] [address] [place], [address] MCH (RBC) [Entitic mass] 28.7 pg Normal 27.0-32.0 [facility] Comment on above: Performed By: #### M 101.0111, L400.0001, #### [facility] [address] [place], [address] MCHC (RBC) [Mass/Vol] 31.1 g/dL Low 32-36 [facility] Comment on above: Performed By: #### M 101.0111, L400.0001, #### [facility] [address] [place], [address] MCV (RBC) [Entitic vol] 92.1 fL Normal 80-94 [facility] Comment on above: Performed By: #### M 101.0111, L400.0001, #### [facility] [address] [place], [address] Monocytes/100 WBC (Bld) 6.7 % Normal 0-10 [facility] Comment on above: Performed By: #### M 101.0111, L400.0001, #### [facility] [address] [place], [address] Neutrophils/100 WBC (Bld) 69.3 % Normal 47-70 [facility] Comment on above: Performed By: #### M 101.0111, L400.0001, #### [facility] [address] [place], [address] Nucleated RBC (Bld) [#/Vol] 0 10*3/uL Normal 0-5 [facility] Comment on above: Performed By: #### M 101.0111, L400.0001, #### [facility] [address] [place], [address] Platelet mean volume (Bld) [Entitic vol] 9.0 fL Normal 6.2-12.0 [facility] Comment on above: Performed By: #### M 101.0111, L400.0001, #### [facility] [address] [place], [address] Platelets (Bld) [#/Vol] 230 10*3/uL Normal 150-450 [facility] Comment on above: Performed By: #### M 101.0111, L400.0001, #### [facility] [address] [place], [address] RBC (Bld) [#/Vol] 4.95 10*6/uL Normal 4.6-6.2 [facility] Comment on above: Performed By: #### M 101.0111, L400.0001, #### [facility] [address] [place], [address] RDW SD 48.1 fl High 35.1-43.9 [facility] Comment on above: Performed By: #### M 101.0111, L400.0001, M100.2200 #### [facility] [address] [place], [address] WBC (Bld) [#/Vol] 7.5 10*3/uL Normal 4.4-11.0 [facility] Comment on above: Performed By: #### M 101.0111, L400.0001, M100.2200 #### [facility] [address] [place], [address] Chest 1 View (Portable)on Chest 1 View (Portable) [facility] Imaging Services [address] [place] [address] Chest 1 View (Portable) MR#: [id number] Acct: [id number] Name: CHAHALJG Marlee Rep #: [id number] : 1940 82 From: Jay Bedoya MD PCP: Dr. Galindo Yuan MD Status: REG ER Study: Chest 1 View (Portable) Date of Exam: 06/24/23 Exam# [id number] Ordering Dr: Koffi Rome DO STUDY: X-RAY CHEST REASON FOR EXAM: Male, 82 years old. Chest pain TECHNIQUE: Single AP portable view of the chest. COMPARISON: None. FINDINGS: The lungs are clear and expanded. There is no demonstrated pleural abnormality. Normal size heart. Normal mediastinum and savana. Normal visualized pulmonary arteries. There is atherosclerotic calcification of the aortic arch . There are degenerative changes of the visualized thoracic spine. There is postoperative change of the cervical spine. 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 There is no demonstrated abnormality of the visualized soft tissue structures of the upper abdomen. RAD/Chest 1 View (Portable) IMPRESSION: Degenerative and postoperative changes, as described above. No demonstrated acute cardiopulmonary process. Electronically Signed: Jay Bedoya MD at 9:12 EDT , CC: Dr. Koffi Rome DO; Dr. Galindo Yuan MD Supply Chain Planner: Signed Normal [facility] Determination of erythrocyte mean corpuscular volume (MCV)Ordered By: Koffi Rome on 06-24-2023 MCV (RBC) [Entitic vol] 92.1 fL 80-94 [facility] Emergency Department Summary on 06-24-2023 Emergency Department Summary [facility] Medical Records Department [address] [place] [address] Emergency Department Summary 06/24/23 MR#: [id number] Acct: [id number] Name: JG CHAHAL Rep #: [id number] : 1940 82 From: Koffi Rome DO PCP: Dr. Galindo Yuan MD Status:REG ER Location: ED HPI History of Present Illness Chief Complaint: Chest Pain Narrative Narrative: 82-year-old male with CAD, multiple cardiac stents, A-fib, hypertension, CKD presenting with an episode of chest pain which she described as achy. Episode started about 645 this morning while he was seated in exam which. He took a bite and became nauseous and diaphoretic. states he did not look pale. Patient got up from the table and went to sit down the living room. He took a nitroglycerin which eased the pain. He states he felt short of breath but this episode not not typical for him. Recently had clean cardiac catheterization by Dr. Bah. Patient anticoagulated on Eliquis for A-fib history. Patient states chest pain is improved. His shortness of breath is improved. He states he is no longer sweaty and nauseous [facility] Medical History Ambulates with cane Arthritis Back pain Cancer Cardiology follow-up encounter CPAP (continuous positive airway pressure) dependence Diabetes Excessive bleeding Gastric reflux History of echocardiogram History of renal disease History of stress test Hypertension Non-smoker Restless legs Sleep apnea Wears dentures Home Medications apixaban 5 mg tablet (Eliquis) 5 mg PO BID BLOOD THINNER 05/18/16 [History Last Taken 01/29/22] atorvastatin 40 mg tablet 40 mg PO QHS CHOLESTEROL 05/18/16 [History Last Taken 01/31/22] cholecalciferol (vitamin D3) 25 mcg (1,000 unit) tablet (Vitamin D3) 1,000 unit PO DAILY SUPPLEMENT 05/18/16 [History Last Taken 01/27/22] pantoprazole 40 mg tablet,delayed release 40 mg PO DAILY GERD 05/18/16 [History Last Taken 01/31/22] nitroglycerin 0.4 mg sublingual tablet 0.4 mg sublingual Q5M PRN Chest Pain ##1 05/23/16 [Rx Last Taken 01/31/22] cyanocobalamin (vitamin B-12) 500 mcg tablet (B-12 DOTS) 1,000 mcg PO DAILY@0800 SUPPLEMENT 11/23/16 [History Last Taken 01/27/22] metoprolol succinate 25 mg tablet,extended release 24 hr 50 mg PO DAILY BP 06/24/17 [History Last Taken 01/31/22] sennosides 8.6 mg-docusate sodium 50 mg tablet (Stool Softener-Stimulant Laxative) 2 tab PO DAILY STOOL SOFTENER 06/24/17 [History Last Taken 01/31/22] losartan 50 mg tablet 50 mg PO DAILY BP 09/18/17 [History Last Taken 01/31/22] amlodipine 5 mg tablet 5 mg PO DAILY BP 01/18/22 [History Last Taken 01/31/22] dofetilide 250 mcg capsule 250 mcg PO Q12 HEART RATE 01/18/22 [History Last Taken 01/31/22] magnesium oxide 400 mg (241.3 mg magnesium) tablet 400 mg PO DAILYCM SUPPLEMENT 01/18/22 [History Last Taken 01/27/22] melatonin 3 mg tablet 3 mg PO QHS SLEEP 01/18/22 [History Last Taken 01/31/22] acetaminophen 500 mg tablet 1,000 mg (2 x 500 mg) PO Q8 14 days #84 tabs 02/02/22 [Rx Last Taken Unknown] tramadol 50 mg tablet 50 - 100 mg (1 - 2 x 50 mg) PO Q6H PRN PRN Pain Score 4-10 7 days #48 tabs 02/02/22 [Rx Last Taken Unknown] meclizine 25 mg tablet 25 mg PO BID PRN dizziness #20 tabs 08/08/22 [Rx Last Taken Unknown] Allergy/AdvReac Type Severity Reaction Status Date / Time adhesive tape Allergy Rash Verified 06/24/23 08:02 Latex, Natural Rubber Allergy Other Verified 06/24/23 08:02 codeine AdvReac Other Verified 06/24/23 08:02 hydrocodone bitartrate AdvReac Nausea Verified 06/24/23 08:02 [From Vicodin] meperidine HCl [From Demerol] AdvReac Other Verified 06/24/23 08:02 propoxyphene napsylate AdvReac Other Verified 06/24/23 08:02 [From Darvocet-N] Surgical History History of back surgery History of back surgery History of cardiac catheterization History of carpal tunnel release of both wrists History of coronary artery stent placement History of shoulder surgery Hx of neck surgery Hx of prior ablation treatment Hx of total hip arthroplasty Hx of total knee replacement Hx of total knee replacement Social History household members: spouse housing: house Smoking Status: Never smoker ROS RUST ED Constitutional Constitutional ED: Reports sweats; Denies chills or fever(s) Eyes Eyes: Denies blurry vision or change in vision ENT ENT ED: Denies ear pain or sore throat Cardiovascular Cardiovascular: Reports chest pain; Denies palpitations or racing heartbeat Respiratory/Chest Respiratory/Chest: Reports dyspnea; Denies cough or sputum Gastrointestinal Gastrointestinal: Reports nausea; Denies abdominal pain, constipation, diarrhea or vomiting Genitourinary Ge (more content not included)... Normal [facility] Hematocrit Auto (Bld) [Volum e fraction]Ordered By: Koffi Rome on 06-24-2023 Hematocrit (Bld) [Volume fraction] 45.6 % 40-54 [facility] L501.4020on 06-24-2023 TROPONIN-I HS 7 pg/mL Normal 3.0-78.0 [facility] Comment on above: Result Comment: Plelarisa gale Note: New Test Units and Gender Specific Reference Ranges. For more information see Policy Stat Procedure Traphill High Sensitivity Troponin (TNIH) and attachments. Performed By: #### L 501.4020 #### [facility] [address] [place], [place], [address] L501.5425on 06-24-2023 TROPONIN-I HS 7 pg/mL Normal 3.0-78.0 [facility] Comment on above: Order Comment: 1Y Result Comment: Son gale Note: New Test Units and Gender Specific Reference Ranges. For more information see Policy Stat Procedure Traphill High Sensitivity Troponin (TNIH) and attachments. Performed By: #### M 101.0111, L400.0001, M100.2200 #### [facility] [address] [place], [place], [address] Laboratory - Chemistry and C hemistry - challengeOrdered By: Koffi Rome on 06-24-2023 CO2 [Moles/Vol] 27.0 mmol/L 21.0-32.0 [facility] Urea nitrogen/Creatinine [Mass ratio] 14.3 mg/mg 10-20 [facility] - Hematology and Cell countsOrdered By: Koffi Rome on 06-24-2023 Erythrocyte distribution width (RBC) [Entitic vol] 48.1 fL 35.1-43.9 [facility] Erythrocyte distribution width (RBC) [Ratio] 14.2 % 11.6-14.6 [facility] Immature granulocytes/100 WBC (Bld) 0.300 % 0.0-0.9 [facility] Comment on above: IG% - Immature Granu locytes (promyelocytes, myelocytes and metamyelocytes) > 1% indicates that a LEFT SHIFT is Present. MCH (RBC) [Entitic mass] 28.7 pg 27.0-32.0 [facility] Nucleated RBC/100 WBC (Bld) [Ratio] 0 % 0-5 [facility] MCHC Auto (RBC) [Mass/Vol]Or dered By: Koffi Rome on 06-24-2023 MCHC (RBC) [Mass/Vol] 31.1 g/dL 32-36 [facility] No Panel InformationOrdered By: Koffi Rome on 06-24-2023 Troponin I High Sensitivity 7 pg/mL 3.0-78.0 [facility] Comment on above: Please Note: New Serene t Units and Gender Specific Reference Ranges. For more information see Policy Stat Procedure Traphill High Sensitivity Troponin (TNIH) and attachments. Estimated Creatinine Clearance Calc 44.75 ml/min [facility] Estimated GFR (MDRD) Amer 75 mL/min >60 [facility] Comment on above: GFR Calc Estimated GFR (MDRD) Non-Af Amer 62 mL/min >60 [facility] Comment on above: Non- GFR Calc Platelets bldOrdered By: Erik Rome on 06-24-2023 Platelets (Bld) [#/Vol] 230 10*3/uL 150-450 [facility] Serum or plasma calcium isabell urement (mass/volume)Ordered By: Koffi Rome on 06-24-2023 Calcium [Mass/Vol] 9.0 mg/dL 8.5-10.1 [facility] Serum or plasma creatinine m easurement (mass/volume)Ordered By: Koffi Rome on 06-24-2023 Creatinine [Mass/Vol] 1.19 mg/dL 0.70-1.30 [facility] Comment on above: The validity of the calculated GFR & GFRAA in patients over 70 years has not been determined. Clinical correlation is essential. Serum or plasma urea nitroge n measurement (mass/volume)Ordered By: Koffi Rome on 06-24-2023 Urea nitrogen [Mass/Vol] 17 mg/dL 7-18 [facility] Thin prep Papanicolaou smear with manual screeningOrdered By: Koffi Rome on 06-24-2023 Thin prep Papanicolaou smear with manual screening 5 5-15 [facility] Emergency Department Summary on 01-27-2023 Emergency Department Summary [facility] Medical Records Department [address] [place] [address] Emergency Department Summary 01/27/23 MR#: [id number] Acct: [id number] Name: JG CHAHAL Rep #: [id number] : 1940 82 From: Gwendolyn Lopes DO PCP: Dr. Galindo Yuan MD Status:DEP ER Location: ED HPI History of Present Illness Chief Complaint: Wound Informant: patient Narrative Narrative: Patient is an 82-year-old male with history of coronary artery disease, CKD 3, proximal atrial fibrillation (on Eliquis therapy) presenting with increased redness, swelling and discomfort of his left upper extremity. Patient states it started next to where he had his IV recently. Patient states he had a recent cardiac catheterization at the beginning of the month and they went in through his right radial artery. Over the past 2 days he has noticed the pain, swelling and redness. He notes he gets intermittent numbness in his left fourth and fifth fingers but that is been more chronic. He currently does not have numbness. Denies any systemic symptoms such as fever or chills. Denies any chest pain or shortness of breath. States he is off his Eliquis for 2 days for the procedure but has been on it consistently since. No other complaints at this time. [facility] Medical History Ambulates with cane Arthritis Back pain Cancer Cardiology follow-up encounter CPAP (continuous positive airway pressure) dependence Diabetes Excessive bleeding Gastric reflux History of echocardiogram History of renal disease History of stress test Hypertension Non-smoker Restless legs Sleep apnea Wears dentures Home Medications apixaban 5 mg tablet (Eliquis) 5 mg PO BID BLOOD THINNER 05/18/16 [History Last Taken 01/29/22] atorvastatin 40 mg tablet 40 mg PO QHS CHOLESTEROL 05/18/16 [History Last Taken 01/31/22] cholecalciferol (vitamin D3) 25 mcg (1,000 unit) tablet (Vitamin D3) 1,000 unit PO DAILY SUPPLEMENT 05/18/16 [History Last Taken 01/27/22] pantoprazole 40 mg tablet,delayed release 40 mg PO DAILY GERD 05/18/16 [History Last Taken 01/31/22] nitroglycerin 0.4 mg sublingual tablet 0.4 mg sublingual Q5M PRN Chest Pain ##1 05/23/16 [Rx Last Taken 01/31/22] cyanocobalamin (vitamin B-12) 500 mcg tablet (B-12 DOTS) 1,000 mcg PO DAILY@0800 SUPPLEMENT 11/23/16 [History Last Taken 01/27/22] metoprolol succinate 25 mg tablet,extended release 24 hr 25 mg PO DAILY BP 06/24/17 [History Last Taken 01/31/22] sennosides 8.6 mg-docusate sodium 50 mg tablet (Stool Softener-Stimulant Laxative) 2 tab PO DAILY STOOL SOFTENER 06/24/17 [History Last Taken 01/31/22] losartan 50 mg tablet 50 mg PO DAILY BP 09/18/17 [History Last Taken 01/31/22] amlodipine 5 mg tablet 5 mg PO DAILY BP 01/18/22 [History Last Taken 01/31/22] dofetilide 250 mcg capsule 250 mcg PO Q12 HEART RATE 01/18/22 [History Last Taken 01/31/22] magnesium oxide 400 mg (241.3 mg magnesium) tablet 400 mg PO DAILYCM SUPPLEMENT 01/18/22 [History Last Taken 01/27/22] melatonin 3 mg tablet 3 mg PO QHS SLEEP 01/18/22 [History Last Taken 01/31/22] acetaminophen 500 mg tablet 1,000 mg PO Q8 14 days #84 tabs 02/02/22 [Rx Last Taken Unknown] tramadol 50 mg tablet 50 - 100 mg PO Q6H PRN PRN Pain Score 4-10 7 days #48 tabs 02/02/22 [Rx Last Taken Unknown] meclizine 25 mg tablet 25 mg PO BID PRN dizziness #20 tabs 08/08/22 [Rx Last Taken Unknown] cephalexin 500 mg capsule 500 mg PO Q6 7 days #28 CAPSULES 01/27/23 [Rx Last Taken Unknown] Allergy/AdvReac Type Severity Reaction Status Date / Time adhesive tape Allergy Rash Verified 01/27/23 09:16 Latex, Natural Rubber Allergy Other Verified 01/27/23 09:16 codeine AdvReac Other Verified 01/27/23 09:16 hydrocodone bitartrate AdvReac Nausea Verified 01/27/23 09:16 [From Vicodin] meperidine HCl [From Demerol] AdvReac Other Verified 01/27/23 09:16 morphine AdvReac Vomiting Verified 01/27/23 09:16 propoxyphene napsylate AdvReac Other Verified 01/27/23 09:16 [From Darvocet-N] Family History no significant family his Surgical History History of back surgery History of back surgery History of cardiac catheterization History of carpal tunnel release of both wrists History of coronary artery stent placement History of shoulder surgery Hx of neck surgery Hx of prior ablation treatment Hx of total hip arthroplasty Hx of total knee replacement Hx of total knee replacement Social History household members: spouse housing: house Smoking Status: Never smoker ROS ROS ED Constitutional Constitutional ED: Denies chills or fever(s) Cardiovascular Cardiovascular: Denies chest pain or palpitations Respiratory/Chest Respiratory/Chest: Denies c (more content not included)... Normal [facility] SCREENING FOR AAAon 12-22 [facility] Absolute lymphocyte counton 08-08-2022 Lymphocytes Auto (Unsp spec) [#/Vol] 1.07 10*3/uL 0.83-4.51 [facility] Work Phone: Basophil percentageon 2021 Basophil percentage 0-5 SEEN /hpf 0-5 [facility] Work Phone: Basophils/100 WBC (Bld) 0.8 % 0-1 [facility] Work Phone: Bilirubin [Mass/Vol] 1.00 mg/dL 0.20-1.00 [facility] Work Phone: Comment on above: For patients on eltr ombopag therapy, use of Dimension Traphill TBIL is not recommended. Chloride [Moles/Vol] 105 mmol/L 98-107 [facility] Work Phone: Eosinophils/100 WBC (Bld) 0.9 % 0-5 [facility] Work Phone: Glucose [Mass/Vol] 135 mg/dL 74-106 [facility] Work Phone: Comment on above: Fasting Glucose resu lt greater than or equal to 126 mg/dL suggests DIABETES MELLITUS per A.D.A. criteria. Neutrophils (Bld) [#/Vol] 4.9 10*3/uL 2.0-7.7 [facility] Work Phone: Neutrophils/100 WBC (Bld) 75.3 % 47-70 [facility] Work Phone: Potassium [Moles/Vol] 3.7 mmol/L 3.5-5.[address] [facility] Work Phone: Protein [Mass/Vol] 6.8 g/dL 6.4-8.2 [facility] Work Phone: Sodium [Moles/Vol] 140 mmol/L 136-145 [facility] Work Phone: WBC (Bld) [#/Vol] 6.5 10*3/uL 4.4-11.0 [facility] Work Phone: Bilirubin Test strip Ql (U)o n 08-08-2022 Bilirubin Ql (U) Negative Negative [facility] Work Phone: Blood erythrocytes count (nu mber/volume)on 08-08-2022 RBC (Bld) [#/Vol] 4.80 10*6/uL 4.6-6.[address] [facility] Work Phone: Blood hemoglobin measurement (mass/volume)on 08-08-2022 Hemoglobin (Bld) [Mass/Vol] 13.6 g/dL 13.0-16.5 [facility] Work Phone: Blood lymphocytes/100 leukoc yteson 08-08-2022 Lymphocytes/100 WBC (Bld) 16.4 % 19-41 [facility] Work Phone: Blood monocytes/100 leukocyt eson 08-08-2022 Monocytes/100 WBC (Bld) 6.3 % 0-10 [facility] Work Phone: Blood platelet mean volumeon 08-08-2022 Platelet mean volume (Bld) [Entitic vol] 9.6 fL 6.2-12.0 [facility] Work Phone: Determination of erythrocyte mean corpuscular volume (MCV)on 08-08-2022 MCV (RBC) [Entitic vol] 87.7 fL 80-94 [facility] Work Phone: Hematocrit Auto (Bld) [Volum e fraction]on 08-08-2022 Hematocrit (Bld) [Volume fraction] 42.1 % 40-54 [facility] Work Phone: INR in Blood by Coagulation assayon 08-08-2022 INR Coag (Bld) [Relative time] 1.3 {INR} [facility] Work Phone: Ketones Test strip Ql (U)on 08-08-2022 Ketones Ql (U) Negative Negative [facility] Work Phone: Laboratory - Chemistry and C hemistry - challengeon 08-08-2022 ALP [Catalytic activity/Vol] 131 U/L 45-117 [facility] Work Phone: ALT [Catalytic activity/Vol] 21 U/L 16-61 [facility] Work Phone: CO2 [Moles/Vol] 24.0 mmol/L 21.0-32.0 [facility] Work Phone: Globulin (S) [Mass/Vol] 3.5 g/dL 2.2-4.2 [facility] Work Phone: Lipase [Catalytic activity/Vol] 91 U/L 73-393 [facility] Work Phone: Urea nitrogen/Creatinine [Mass ratio] 12.9 mg/mg 10-20 [facility] Work Phone: Laboratory - Coagulationon 0 08-08-2022 PT Coag (PPP) [Time] 15.9 s 11.7-14.9 [facility] Work Phone: Laboratory - Hematology and Cell countson 08-08-2022 Erythrocyte distribution width (RBC) [Entitic vol] 45.1 fL 35.1-43.9 [facility] Work Phone: Erythrocyte distribution width (RBC) [Ratio] 14.1 % 11.6-14.6 [facility] Work Phone: Immature granulocytes/100 WBC (Bld) 0.300 % 0.0-0.9 [facility] Work Phone: Comment on above: IG% - Immature Granu locytes (promyelocytes, myelocytes and metamyelocytes) > 1% indicates that a LEFT SHIFT is Present. MCH (RBC) [Entitic mass] 28.3 pg 27.0-32.0 [facility] Work Phone: Nucleated RBC/100 WBC (Bld) [Ratio] 0 % 0-5 [facility] Work Phone: MCHC Auto (RBC) [Mass/Vol]on 08-08-2022 MCHC (RBC) [Mass/Vol] 32.3 g/dL 32-36 [facility] Work Phone: Mucus LM Ql (Urine sed)on Mucus Ql (Urine sed) 0 SEEN /hpf [facility] Work Phone: Nitrite Test strip Ql (U)on 08-08-2022 Nitrite Ql (U) Negative Negative [facility] Work Phone: No Panel Informationon 08-08 Troponin I High Sensitivity 8 pg/mL 3.0-78.0 [facility] Work Phone: Comment on above: Please Note: New Serene t Units and Gender Specific Reference Ranges. For more information see Policy Stat Procedure Traphill High Sensitivity Troponin (TNIH) and attachments. Estimated Creatinine Clearance Calc 40.34 ml/min [facility] Work Phone: Estimated GFR (MDRD) Amer 67 mL/min >60 [facility] Work Phone: Comment on above: GFR Calc Estimated GFR (MDRD) Non-Af Amer 55 mL/min >60 [facility] Work Phone: Comment on above: Non- GFR Calc Platelets bldon 08-08-2022 Platelets (Bld) [#/Vol] 210 10*3/uL 150-450 [facility] Work Phone: Protein Test strip Ql (U)on 08-08-2022 Protein Ql (U) Negative Negative [facility] Work Phone: Serum or plasma albumin isabell urement (mass/volume)on 08-08-2022 Albumin [Mass/Vol] 3.3 g/dL 3.2-5.0 [facility] Work Phone: Serum or plasma albumin/glob ulin mass ratioon 08-08-2022 Albumin/Globulin [Mass ratio] 0.9 {ratio} 0.9-2.4 [facility] Work Phone: Serum or plasma calcium isabell urement (mass/volume)on 08-08-2022 Calcium [Mass/Vol] 9.0 mg/dL 8.5-10.1 [facility] Work Phone: Serum or plasma creatinine m easurement (mass/volume)on 08-08-2022 Creatinine [Mass/Vol] 1.32 mg/dL 0.70-1.30 [facility] Work Phone: Comment on above: The validity of the calculated GFR & GFRAA in patients over 70 years has not been determined. Clinical correlation is essential. Serum or plasma urea nitroge n measurement (mass/volume)on 08-08-2022 Urea nitrogen [Mass/Vol] 17 mg/dL 7-18 [facility] Work Phone: Squamous epithelial cells de tection in urine sediment by light microscopyon 08-08-2022 Epithelial cells.squamous LM Ql (Urine sed) 0 SEEN /hpf 0-5 [facility] Work Phone: Thin prep Papanicolaou smear with manual screeningon 08-08-2022 Thin prep Papanicolaou smear with manual screening 15 U/L 15-37 [facility] Work Phone: Thin prep Papanicolaou smear with manual screening 11 5-15 [facility] Work Phone: Urine blood detectionon 07-21 RBC Ql (U) Negative Negative [facility] Work Phone: RBC Ql (U) 0 SEEN /hpf 0-5 [facility] Work Phone: Urine clarityon 08-08-2022 Clarity (U) Clear Clear [facility] Work Phone: Urine color determinationon 08-08-2022 Color (U) Yellow Yellow [facility] Work Phone: Urine glucose detectionon Glucose Ql (U) Normal mg/dl Normal [facility] Work Phone: Urine leukocyte esterase det ection by dipstickon 08-08-2022 Leukocyte esterase Test strip Ql (U) 25 /ul Negative [facility] Work Phone: Urine pHon 08-08-2022 pH (U) 7.0 [pH] 5.0 - 8.0 [facility] Work Phone: Urine sediment bacteria coun t by microscopy (number/high power field)on 08-08-2022 Bacteria LM.HPF (Urine sed) [#/Area] 0 /[HPF] None Seen [facility] Work Phone: Urine specific gravity measu rementon 08-08-2022 Specific gravity (U) [Rel density] 1.010 1.002-1.030 [facility] Work Phone: Urobilinogen Auto test strip Ql (U)on 08-08-2022 Urobilinogen Ql (U) Normal mg/dl Normal [facility] Work Phone: MRI CERVICAL SPINE WO IVCONo n 05-15-2022 [facility] Provider Note - ED v2on 10-2 Provider Note - ED v2 Provider Note - ED v2: Chart Review: ED NOTES ED NOTES: Patient came in with complaints of head laceration patient said he rolled out of bed and hit it on the nightstand. Patient is on a blood thinner says he did not lose consciousness denies any headaches visual changes nausea or vomiting. HISTORY OF PRESENTING ILLNESS JG is a 81 year old Male and was seen by me at 13-Sep-2021 12:07. The historian is the patient. Triage Information: Most recent Vital Sign Value Date PAST MEDICAL HISTORY ATTESTATION: I have reviewed and confirmed nurse's/medic's notes for patient's medications, allergies, and medical, surgical, family and social history PSYCHOSOCIAL SCREENING: NO: concerns for safety at home, feelings of depression, feels like hurting others and feels like hurting self ALLERGIES/INTOLERANC ES: Allergy Allergen: NSAIDs Type: Drug Category Reaction: Arrhythmia HEALTH HISTORY: No documented data. OUTPATIENT MEDICATIONS: Home Medications Review Status for Reconciliation: Complete Med Status: Patient Currently Takes Medications Drug Name: Eliquis Instructions: null Drug Name: Tikosyn Instructions: null Drug Name: losartan Instructions: null Drug Name: metoprolol Instructions: null Drug Name: Lipitor Instructions: null Drug Name: amLODIPine Instructions: null SIGNIFICANT EVENTS: No documented data. REVIEW OF SYSTEMS INTEGUMENTARY: ( Laceration) All other systems reviewed and are negative RESULTS/VITAL SIGNS VITAL SIGNS: T PRBP SpO2O2(LPM) %FiO2 Method 13-Sep-2021 11:40:[id number] PHYSICAL EXAM CONSTITUTIONAL: Well appearing, well nourished, awake, alert, oriented to person, place, time/situation and in no apparent distress. HENMT: Airway patent, EYES: pupils are accommodating MUSCULOSKELETAL: , range of motion is not limited, no muscle or joint tenderness. NEUROLOGICAL: Alert and oriented, no focal deficits, no motor or sensory deficits. SKIN: Skin normal color for race, warm, patient has a 3 cm laceration. Laceration is clotted. Very superficial unable to suture. PSYCHIATRIC: Alert and oriented to person, place, time/situation. normal mood and affect. No apparent risk to self or others. HEME/LYMPH: No cervical adenopathy. CLINICAL IMPRESSION Diagnosis/Annotation : ED Dx Name:Laceration of scalp Code:S01.01XA Disposition: discharged Type: home ATTESTATION Comments/Additional Findings: Patient was cleansed with clobetasol. Bacitracin and bandage was placed on wound at this time. Patient was educated to keep it clean and dry and watch for signs and symptoms of infection. Patient was okay with not getting sutures due to superficial nature of wound. CRITICAL CARE TIME Is this a critically ill patient: no Electronic Signatures: Effie Douglas ([employer]IVERSITY [employer]OSS P[employer]ER) (Signed 13-Sep-2021 12:09) Authored: ED Notes, HPI, PMH, ROS, PE, Results/Vital Signs, Clinical Impression, Attestation, Chart Review, Scores Last Updated: 13-Sep-2021 12:09 by Effie Douglas (UNIVERSITY TUTOR-DENTAL FLOSS PACKER) [facility] Clinical Summary: HMSPatient IDon [id number] OOP [facility] Work Phone: Vital Signs Date Time Vital Sign Value Performing Clinician Facility 08-03-2025 08:45-0400 Body mass index (BMI) [Ratio] 31.95 kg/m2 Rashaun Manning Jr., MD Work Phone: [facility] 08-03-2025 08:45-0400 Body weight 95.62 kg Rashaun Manning Jr., MD Work Phone: [facility] 08-03-2025 08:45-0400 Diastolic blood pressure 71 mm[Hg] Rashaun Manning Jr., MD Work Phone: [facility] 08-03-2025 08:45-0400 Heart rate 73 /min Rashaun Manning Jr., MD Work Phone: [facility] 08-03-2025 08:45-0400 Respiratory rate 16 /min Rashaun Manning Jr., MD Work Phone: [facility] 08-03-2025 08:45-0400 SaO2% (BldA) [Mass fraction] 96 % Rashaun Manning Jr., MD Work Phone: [facility] 08-03-2025 08:45-0400 Systolic blood pressure 116 mm[Hg] Rashaun Manning Jr., MD Work Phone: [facility] 06-23-2025 07:41-0400 Body height 173 cm Galindo Yuan MD Work Phone: [facility] 06-23-2025 07:41-0400 Body mass index (BMI) [Ratio] 32.11 kg/m2 Galindo Yuan MD Work Phone: [facility] 06-23-2025 07:41-0400 Body weight 96.1 kg Galindo Yuan MD Work Phone: [facility] 06-23-2025 07:41-0400 Diastolic blood pressure 68 mm[Hg] Galindo Yuan MD Work Phone: [facility] 06-23-2025 07:41-0400 Heart rate 80 /min Galindo Yuan MD Work Phone: [facility] 06-23-2025 07:41-0400 SaO2% (BldA) [Mass fraction] 98 % Galindo Yuan MD Work Phone: [facility] 06-23-2025 07:41-0400 Systolic blood pressure 118 mm[Hg] Galindo Yuan MD Work Phone: [facility] 06-08-2025 09:00-0400 Diastolic blood pressure 72 mm[Hg] [facility] 06-08-2025 09:00-0400 Heart rate 83 /min [facility] 06-08-2025 09:00-0400 Systolic blood pressure 119 mm[Hg] [facility] 05-21-2025 11:31-0400 Body mass index (BMI) [Ratio] 32.6 kg/m2 Galindo Yuan MD Work Phone: [facility] 05-21-2025 11:31-0400 Body weight 94.4 kg Galindo Yuan MD Work Phone: [facility] 05-21-2025 11:31-0400 Diastolic blood pressure 70 mm[Hg] Galindo Yuan MD Work Phone: [facility] 05-21-2025 11:31-0400 Heart rate 76 /min Galindo Yuan MD Work Phone: [facility] 05-21-2025 11:31-0400 Respiratory rate 16 /min Galindo Yuan MD Work Phone: [facility] 05-21-2025 11:31-0400 Systolic blood pressure 124 mm[Hg] Galindo Yuan MD Work Phone: [facility] 03-23-2025 11:07-0400 Body height 170.2 cm Anurag Bah MD Work Phone: [facility] 03-23-2025 11:07-0400 Body mass index (BMI) [Ratio] 33.05 kg/m2 Anurag Bah MD Work Phone: [facility] 03-23-2025 11:07-0400 Body weight 95.71 kg Anurag Bah MD Work Phone: [facility] 03-23-2025 11:07-0400 Diastolic blood pressure 66 mm[Hg] Anurag Bah MD Work Phone: [facility] 03-23-2025 11:07-0400 Heart rate 77 /min Anurag Bah MD Work Phone: [facility] 03-23-2025 11:07-0400 Respiratory rate 12 /min Anurag Bah MD Work Phone: [facility] 03-23-2025 11:07-0400 SaO2% (BldA) [Mass fraction] 96 % Anurag Bah MD Work Phone: [facility] 03-23-2025 11:07-0400 Systolic blood pressure 114 mm[Hg] Anurag Bah MD Work Phone: [facility] 01-21-2025 10:30-0500 Body mass index (BMI) [Ratio] 33.46 kg/m2 Renan Bowling MD Work Phone: [facility] 01-21-2025 10:30-0500 Body weight 96.9 kg Renan Bowling MD Work Phone: [facility] 01-21-2025 10:30-0500 Heart rate 89 /min Renan Bowling MD Work Phone: [facility] 01-21-2025 10:30-0500 SaO2% (BldA) [Mass fraction] 98 % Renan Bowling MD Work Phone: [facility] 12-24-2024 08:58-0500 Body height 171.5 cm Pac 3 Work Phone: [facility] 12-24-2024 08:58-0500 Body mass index (BMI) [Ratio] 32.41 kg/m2 Pac 3 Work Phone: [facility] 12-24-2024 08:58-0500 Body weight 95.25 kg Pacc 3 Work Phone: [facility] 12-23-2024 08:25-0500 Body mass index (BMI) [Ratio] 33.56 kg/m2 Galindo Yuan MD Work Phone: [facility] 12-23-2024 08:25-0500 Body temperature 98.49 [degF] Galindo Yuan MD Work Phone: [facility] 12-23-2024 08:25-0500 Body weight 97.2 kg Galindo Yuan MD Work Phone: [facility] 12-23-2024 08:25-0500 Diastolic blood pressure 72 mm[Hg] Galindo Yuan MD Work Phone: [facility] 12-23-2024 08:25-0500 Heart rate 64 /min Galindo Yuan MD Work Phone: [facility] 12-23-2024 08:25-0500 Respiratory rate 16 /min Galindo Yuan MD Work Phone: [facility] 12-23-2024 08:25-0500 Systolic blood pressure 126 mm[Hg] Galindo Yuan MD Work Phone: [facility] 12-05-2024 11:40-0500 Body mass index (BMI) [Ratio] 33.25 kg/m2 Galindo Yuan MD Work Phone: [facility] 12-05-2024 11:40-0500 Body weight 96.3 kg Galindo Yuan MD Work Phone: [facility] 12-05-2024 11:40-0500 Diastolic blood pressure 70 mm[Hg] Galindo Yuan MD Work Phone: [facility] 12-05-2024 11:40-0500 Heart rate 56 /min Galindo Yuan MD Work Phone: [facility] 12-05-2024 11:40-0500 Respiratory rate 16 /min Galindo Yuan MD Work Phone: [facility] 12-05-2024 11:40-0500 SaO2% (BldA) [Mass fraction] 94 % Galindo Yuan MD Work Phone: [facility] 12-05-2024 11:40-0500 Systolic blood pressure 118 mm[Hg] Galindo Yuan MD Work Phone: [facility] 10-01-2024 09:28-0500 Body mass index (BMI) [Ratio] 33.39 kg/m2 Renan Bowling MD Work Phone: [facility] 10-01-2024 09:28-0500 Body weight 96.7 kg Renan Bowling MD Work Phone: [facility] 10-01-2024 09:28-0500 Heart rate 74 /min Renan Bowling MD Work Phone: [facility] 10-01-2024 09:28-0500 SaO2% (BldA) [Mass fraction] 97 % Renan Bowling MD Work Phone: [facility] 08-27-2024 09:47-0400 Diastolic blood pressure 74 mm[Hg] Blanco Hernandez MD Work Phone: [facility] 08-27-2024 09:47-0400 Heart rate 68 /min Blanco Hernandez MD Work Phone: [facility] 08-27-2024 09:47-0400 SaO2% (BldA) [Mass fraction] 98 % Blanco Hernandez MD Work Phone: [facility] 08-27-2024 09:47-0400 Systolic blood pressure 155 mm[Hg] Blanco Hernandez MD Work Phone: [facility] 08-04-2024 10:50-0400 Body height 170.2 cm Blanco Hernandez MD Work Phone: [facility] 08-04-2024 10:50-0400 Body mass index (BMI) [Ratio] 33.46 kg/m2 Blanco Hernandez MD Work Phone: [facility] 08-04-2024 10:50-0400 Body weight 96.9 kg Blanco Hernandez MD Work Phone: [facility] 08-04-2024 10:50-0400 Diastolic blood pressure 76 mm[Hg] Blanco Hernandez MD Work Phone: [facility] Comment on above: provider notified 08-04-2024 10:50-0400 Heart rate 81 /min Blanco Hernandez MD Work Phone: [facility] 08-04-2024 10:50-0400 SaO2% (BldA) [Mass fraction] 98 % Blanco Hernandez MD Work Phone: [facility] 08-04-2024 10:50-0400 Systolic blood pressure 159 mm[Hg] Blanco Hernandez MD Work Phone: [facility] Comment on above: provider notified 2024 08:53-0400 Body mass index (BMI) [Ratio] 32.2 kg/m2 Rashaun Manning Jr., MD Work Phone: [facility] 2024 08:53-0400 Body weight 93.26 kg Rashaun Manning Jr., MD Work Phone: [facility] 2024 08:53-0400 Diastolic blood pressure 81 mm[Hg] Rashaun Manning Jr., MD Work Phone: [facility] 2024 08:53-0400 Heart rate 71 /min Rashaun Manning Jr., MD Work Phone: [facility] 2024 08:53-0400 SaO2% (BldA) [Mass fraction] 99 % Rashaun Manning Jr., MD Work Phone: [facility] 2024 08:53-0400 Systolic blood pressure 118 mm[Hg] Rashaun Manning Jr., MD Work Phone: [facility] 07-24-2024 11:02-0400 Body mass index (BMI) [Ratio] 32.11 kg/m2 Diane Bruce PA-C Work Phone: [facility] 07-24-2024 11:02-0400 Body weight 93 kg Diane Bruce PA-C Work Phone: [facility] 07-24-2024 11:02-0400 Diastolic blood pressure 60 mm[Hg] Diane Bruce PA-C Work Phone: [facility] 07-24-2024 11:02-0400 Heart rate 69 /min Diane Bruce PA-C Work Phone: [facility] 07-24-2024 11:02-0400 Systolic blood pressure 128 mm[Hg] Diane Bruce PA-C Work Phone: [facility] 06-20-2024 07:24-0400 Diastolic blood pressure 76 mm[Hg] Ana Ean [employer]IVERSITY TUTOR[employer]OSS P[employer]ER Work Phone: [facility] 06-20-2024 07:24-0400 Systolic blood pressure 140 mm[Hg] Ana Ean [employer]IVERSITY TUTOR.D[employer]AL [employer]OSS P[employer]ER Work Phone: [facility] 06-20-2024 07:06-0400 Body height 170.2 cm Ana Ean UNIVERSITY TUTOR.D[employer]AL [employer]OSS P[employer]ER Work Phone: [facility] 06-20-2024 07:06-0400 Body mass index (BMI) [Ratio] 33.25 kg/m2 Ana Ean UNIVERSITY TUTOR.D[employer]AL [employer]OSS P[employer]ER Work Phone: [facility] 06-20-2024 07:06-0400 Body weight 96.3 kg Ana Ean UNIVERSITY TUTOR.D[employer]AL [employer]OSS P[employer]ER Work Phone: [facility] 06-20-2024 07:06-0400 Heart rate 76 /min Ana Ean UNIVERSITY TUTOR.D[employer]AL [employer]OSS P[employer]ER Work Phone: [facility] 06-20-2024 07:06-0400 Respiratory rate 12 /min Ana Ean [employer]IVERSITY TUTOR.D[employer]AL FLOSS P[employer]ER Work Phone: [facility] 06-20-2024 07:06-0400 SaO2% (BldA) [Mass fraction] 97 % Ana Mckoy UNIVERSITY TUTOR.DENTAL FLOSS P[employer]ER Work Phone: [facility] 06-17-2024 09:32-0400 Body mass index (BMI) [Ratio] 33.6 kg/m2 Krystin Hernandez UNIVERSITY TUTOR.D[employer]AL FLOSS P[employer]ER Work Phone: [facility] 06-17-2024 09:32-0400 Body weight 97.3 kg Krystin Hernandez UNIVERSITY TUTOR.[employer]AL [employer]OSS P[employer]ER Work Phone: [facility] 06-17-2024 09:32-0400 Heart rate 69 /min Krystin Hernandez [employer]IVERSITY TUTOR.D[employer]AL [employer]OSS P[employer]ER Work Phone: [facility] 06-17-2024 09:32-0400 SaO2% (BldA) [Mass fraction] 96 % Krystin Hernandez [employer]IVERSITY TUTOR.[employer]AL [employer]OSS P[employer]ER Work Phone: [facility] 06-16-2024 11:36-0400 Body mass index (BMI) [Ratio] 33.52 kg/m2 Anurag Bah MD Work Phone: [facility] 06-16-2024 11:36-0400 Body weight 97.07 kg Anurag Bah MD Work Phone: [facility] 06-16-2024 11:36-0400 Diastolic blood pressure 76 mm[Hg] Anurag Bah MD Work Phone: [facility] 06-16-2024 11:36-0400 Heart rate 66 /min Anurag Bah MD Work Phone: [facility] 06-16-2024 11:36-0400 SaO2% (BldA) [Mass fraction] 96 % Anurag Bah MD Work Phone: [facility] 06-16-2024 11:36-0400 Systolic blood pressure 134 mm[Hg] Anurag Bah MD Work Phone: [facility] 03-26-2024 14:07-0400 Diastolic blood pressure 65 mm[Hg] Sakshi Rodriguez MD Work Phone: [facility] 03-26-2024 14:07-0400 Heart rate 68 /min Sakshi Rodriguez MD Work Phone: [facility] 03-26-2024 14:07-0400 Systolic blood pressure 141 mm[Hg] Sakshi Rodriguez MD Work Phone: [facility] 02-13-2024 09:53-0400 Body weight 94.9 kg Renan Bowling MD Work Phone: [facility] 02-13-2024 09:53-0400 Heart rate 74 /min Renan Bowling MD Work Phone: [facility] 02-13-2024 09:53-0400 SaO2% (BldA) [Mass fraction] 97 % Renan Bowling MD Work Phone: [facility] 01-18-2024 09:01-0500 Body weight 95.25 kg Rashaun Manning Jr., MD Work Phone: [facility] 01-18-2024 09:01-0500 Diastolic blood pressure 76 mm[Hg] Rashaun Manning Jr., MD Work Phone: [facility] 01-18-2024 09:01-0500 Heart rate 76 /min Rashaun Manning Jr., MD Work Phone: [facility] 01-18-2024 09:01-0500 Respiratory rate 18 /min Rashaun Manning Jr., MD Work Phone: [facility] 01-18-2024 09:01-0500 SaO2% (BldA) [Mass fraction] 97 % Rashaun Manning Jr., MD Work Phone: [facility] 01-18-2024 09:01-0500 Systolic blood pressure 127 mm[Hg] Rashaun Manning Jr., MD Work Phone: [facility] 10-12-2023 18:57-0500 Diastolic blood pressure 98 mm[Hg] [facility] 10-12-2023 18:57-0500 Heart rate 88 /min [facility] 10-12-2023 18:57-0500 Respiratory rate 18 /min [facility] 10-12-2023 18:57-0500 SaO2% (BldA) [Mass fraction] 93 % [facility] 10-12-2023 18:57-0500 Systolic blood pressure 110 mm[Hg] [facility] 10-12-2023 16:21-0500 Body temperature 97.1 [degF] [facility] 10-12-2023 16:00-0500 Body height 171.45 cm [facility] 10-12-2023 16:00-0500 Body mass index (BMI) [Ratio] 32.5 kg/m2 [facility] 10-12-2023 16:00-0500 Body weight 95.8 kg [facility] 10-12-2023 14:51-0500 Body temperature 103.21 [degF] Yossi Soham [employer]IVERSITY T[employer]OR.[employer] P[employer]ER Work Phone: [facility] 10-12-2023 14:51-0500 Body weight 92.08 kg Yossi Soham [employer]IVERSITY TUTOR.D[employer]AL [employer]OSS P[employer]ER Work Phone: [facility] 10-12-2023 14:51-0500 Diastolic blood pressure 85 mm[Hg] Yossi Soham UNIVERSITY TUTOR.D[employer]AL [employer]OSS P[employer]ER Work Phone: [facility] 10-12-2023 14:51-0500 Heart rate 101 /min Yossi Soham UNIVERSITY T[employer]OR.[employer]AL [employer]OSS P[employer]ER Work Phone: [facility] 10-12-2023 14:51-0500 Respiratory rate 18 /min Yossi Soham [employer]IVERSITY TUTOR.[employer]AL [employer]OSS P[employer]ER Work Phone: [facility] 10-12-2023 14:51-0500 SaO2% (BldA) [Mass fraction] 97 % Yossi Soham 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.D[employer]AL [employer]OSS P[employer]ER Work Phone: [facility] 10-12-2023 14:51-0500 Systolic blood pressure 160 mm[Hg] Yossi Soahm [employer]IVERSITY TUTOR.D[employer]AL [employer]OSS P[employer]ER Work Phone: [facility] 07-19-2023 11:33-0400 Body height 170.2 cm Sakshi Nunez MD Work Phone: [facility] 07-19-2023 11:33-0400 Body weight 96.16 kg Sakshi Nunez MD Work Phone: [facility] 07-19-2023 11:33-0400 Diastolic blood pressure 70 mm[Hg] Sakshi Nunez MD Work Phone: [facility] 07-19-2023 11:33-0400 Heart rate 66 /min Sakshi Nunez MD Work Phone: [facility] 07-19-2023 11:33-0400 Systolic blood pressure 116 mm[Hg] Sakshi Nunez MD Work Phone: [facility] 07-13-2023 08:50-0400 Body weight 94.8 kg Rashaun Manning Jr., MD Work Phone: [facility] 07-13-2023 08:50-0400 Diastolic blood pressure 74 mm[Hg] Rashaun Manning Jr., MD Work Phone: [facility] 07-13-2023 08:50-0400 Heart rate 72 /min Rashaun Manning Jr., MD Work Phone: [facility] 07-13-2023 08:50-0400 Respiratory rate 18 /min Rashaun Manning Jr., MD Work Phone: [facility] 07-13-2023 08:50-0400 SaO2% (BldA) [Mass fraction] 97 % Rashaun Manning Jr., MD Work Phone: [facility] 07-13-2023 08:50-0400 Systolic blood pressure 128 mm[Hg] Rashaun Manning Jr., MD Work Phone: [facility] 07-09-2023 08:13-0400 Body height 170.2 cm Ana Older UNIVERSITY T[employer]OR.[employer]OSS P[employer]ER Work Phone: [facility] 07-09-2023 08:13-0400 Body weight 94.8 kg Ana Older [employer]IVERSITY T[employer]OR.[employer]OSS [employer]ER Work Phone: [facility] 07-09-2023 08:13-0400 Diastolic blood pressure 75 mm[Hg] Ana Older [employer]IVERSITY T[employer]OR.[employer] P[employer]ER Work Phone: [facility] 07-09-2023 08:13-0400 Heart rate 80 /min Ana Older [employer]IVERSITY T[employer]OR.[employer] P[employer]ER Work Phone: [facility] 07-09-2023 08:13-0400 Respiratory rate 16 /min Ana Older [employer]IVERSITY T[employer]OR.[employer] P[employer]ER Work Phone: [facility] 07-09-2023 08:13-0400 Systolic blood pressure 124 mm[Hg] Ana Older [employer]IVERSITY [employer]OR.[employer] P[employer]ER Work Phone: [facility] 06-28-2023 13:53-0400 Body weight 94.35 kg Galindo Yuan MD Work Phone: [facility] 06-28-2023 13:53-0400 Diastolic blood pressure 68 mm[Hg] Galindo Yuan MD Work Phone: [facility] 06-28-2023 13:53-0400 Heart rate 76 /min Galindo Yuan MD Work Phone: [facility] 06-28-2023 13:53-0400 Respiratory rate 20 /min Gailndo Yuan MD Work Phone: [facility] 06-28-2023 13:53-0400 Systolic blood pressure 120 mm[Hg] Galindo Yuan MD Work Phone: [facility] 06-24-2023 11:17-0400 Diastolic blood pressure 60 mm[Hg] [facility] 06-24-2023 11:17-0400 Heart rate 63 /min [facility] 06-24-2023 11:17-0400 Respiratory rate 17 /min [facility] 06-24-2023 11:17-0400 SaO2% (BldA) [Mass fraction] 97 % [facility] 06-24-2023 11:17-0400 Systolic blood pressure 112 mm[Hg] [facility] 06-24-2023 07:57-0400 Body height 170.18 cm [facility] 06-24-2023 07:57-0400 Body mass index (BMI) [Ratio] 33 kg/m2 [facility] 06-24-2023 07:57-0400 Body temperature 97.8 [degF] [facility] 06-24-2023 07:57-0400 Body weight 95.9 kg [facility] 04-11-2023 13:00-0400 Diastolic blood pressure 69 mm[Hg] Sakshi Rodriguez MD Work Phone: [facility] 04-11-2023 13:00-0400 Heart rate 77 /min Sakshi Rodriguez MD Work Phone: [facility] 04-11-2023 13:00-0400 Systolic blood pressure 130 mm[Hg] Sakshi Rodriguez MD Work Phone: [facility] 02-12-2023 09:08-0400 Body weight 96.62 kg Renan Bowling MD Work Phone: [facility] 02-12-2023 09:08-0400 Heart rate 76 /min Renan Bowling MD Work Phone: [facility] 02-12-2023 09:08-0400 SaO2% (BldA) [Mass fraction] 96 % Renan Bowling MD Work Phone: [facility] 01-27-2023 09:25-0500 Diastolic blood pressure 72 mm[Hg] [facility] 01-27-2023 09:25-0500 Heart rate 70 /min [facility] 01-27-2023 09:25-0500 Respiratory rate 18 /min [facility] 01-27-2023 09:25-0500 SaO2% (BldA) [Mass fraction] 96 % [facility] 01-27-2023 09:25-0500 Systolic blood pressure 124 mm[Hg] [facility] 01-27-2023 09:13-0500 Body height 170.18 cm [facility] 01-27-2023 09:13-0500 Body mass index (BMI) [Ratio] 34.4 kg/m2 [facility] 01-27-2023 09:13-0500 Body temperature 97.3 [degF] [facility] 01-27-2023 09:13-0500 Body weight 99.79 kg [facility] 01-05-2023 08:41-0500 Body weight 99.7 kg Rashaun Manning Jr., MD Work Phone: [facility] 01-05-2023 08:41-0500 Diastolic blood pressure 78 mm[Hg] Rashaun Manning Jr., MD Work Phone: [facility] 01-05-2023 08:41-0500 Heart rate 82 /min Rashaun Manning Jr., MD Work Phone: [facility] 01-05-2023 08:41-0500 Respiratory rate 16 /min Rashaun Manning Jr., MD Work Phone: [facility] 01-05-2023 08:41-0500 SaO2% (BldA) [Mass fraction] 97 % Rashaun Manning Jr., MD Work Phone: [facility] 01-05-2023 08:41-0500 Systolic blood pressure 132 mm[Hg] Rashaun Manning Jr., MD Work Phone: [facility] 12-20-2022 09:30-0500 Body temperature 98.2 [degF] Galindo Yuan MD Work Phone: [facility] 12-20-2022 09:30-0500 Body weight 99.34 kg Galindo Yuan MD Work Phone: [facility] 12-20-2022 09:30-0500 Diastolic blood pressure 64 mm[Hg] Galindo Yuan MD Work Phone: [facility] 12-20-2022 09:30-0500 Heart rate 76 /min Galindo Yuan MD Work Phone: [facility] 12-20-2022 09:30-0500 Respiratory rate 20 /min Galindo Yuan MD Work Phone: [facility] 12-20-2022 09:30-0500 Systolic blood pressure 138 mm[Hg] Galindo Yuan MD Work Phone: [facility] 09-04-2022 16:34-0400 Body weight 100.7 kg Rashaun Manning Jr., MD Work Phone: [facility] 09-04-2022 16:34-0400 Diastolic blood pressure 74 mm[Hg] Rashaun Manning Jr., MD Work Phone: [facility] 09-04-2022 16:34-0400 Heart rate 92 /min Rashaun Manning Jr., MD Work Phone: [facility] 09-04-2022 16:34-0400 SaO2% (BldA) [Mass fraction] 94 % Rashaun Manning Jr., MD Work Phone: [facility] 09-04-2022 16:34-0400 Systolic blood pressure 130 mm[Hg] Rashaun Manning Jr., MD Work Phone: [facility] 08-08-2022 13:22-0400 Diastolic blood pressure 80 mm[Hg] [facility] Work Phone: 08-08-2022 13:22-0400 Heart rate 71 /min [facility] Work Phone: 08-08-2022 13:22-0400 Systolic blood pressure 155 mm[Hg] [facility] Work Phone: 08-08-2022 12:00-0400 Respiratory rate 18 /min [facility] Work Phone: 08-08-2022 12:00-0400 SaO2% (BldA) [Mass fraction] 97 % [facility] Work Phone: 08-08-2022 08:08-0400 Body height 170.18 cm [facility] Work Phone: 08-08-2022 08:08-0400 Body mass index (BMI) [Ratio] 34.9 kg/m2 [facility] Work Phone: 08-08-2022 08:08-0400 Body temperature 98.1 [degF] [facility] Work Phone: 08-08-2022 08:08-0400 Body weight 101.1 kg [facility] Work Phone: 06-20-2022 11:37-0400 Body height 170.2 cm Faby Georges [employer]IV[employer]ITY [employer]OR[employer] Work Phone: [facility] 06-20-2022 11:37-0400 Body weight 97.52 kg Faby Georges [employer]IV[employer]ITY [employer]OR.[employer] Work Phone: [facility] 06-20-2022 11:37-0400 Diastolic blood pressure 69 mm[Hg] Afby Georges [employer]IVERSITY T[employer]OR.[employer] P[employer]ER Work Phone: [facility] 06-20-2022 11:37-0400 Heart rate 72 /min Faby Georges [employer]IVERSITY T[employer]OR.[employer]ER Work Phone: [facility] 06-20-2022 11:37-0400 SaO2% (BldA) [Mass fraction] 97 % Faby Georges [employer]IVERSITY [employer]OR.[employer]ER Work Phone: [facility] 06-20-2022 11:37-0400 Systolic blood pressure 126 mm[Hg] Faby Georges [employer]IVERSITY [employer]OR.[employer] P[employer]ER Work Phone: [facility] 05-01-2022 09:04-0400 Body temperature 98.91 [degF] Rashaun Manning Jr., MD Work Phone: [facility] 05-01-2022 09:04-0400 Body weight 97.98 kg Rashaun Manning Jr., MD Work Phone: [facility] 05-01-2022 09:04-0400 Diastolic blood pressure 72 mm[Hg] Rashaun Manning Jr., MD Work Phone: [facility] 05-01-2022 09:04-0400 Heart rate 85 /min Rashaun Manning Jr., MD Work Phone: [facility] 05-01-2022 09:04-0400 Respiratory rate 18 /min Rashaun Manning Jr., MD Work Phone: [facility] 05-01-2022 09:04-0400 SaO2% (BldA) [Mass fraction] 97 % Rashaun Manning Jr., MD Work Phone: [facility] 05-01-2022 09:04-0400 Systolic blood pressure 110 mm[Hg] Rashaun Manning Jr., MD Work Phone: [facility] NEGATED: Highlighted [id number] 10:31-0400 BMI (Body Mass Index) 33.79 kg/m2 Mary Oro [facility] Work Phone: NEGATED: Highlighted [id number] 10:31-0400 Body weight 103.42 kg Mary Oro DIRECTOR OF CARDIOLOGY [facility] Work Phone: NEGATED: Highlighted [id number] 10:31-0400 Body weight 104 kg Mary Abreuer [facility] Work Phone: NEGATED: Highlighted [id number] 10:31-0400 BP Diastolic 75 mm[Hg] Mary Bradyer DIRECTOR OF CARDIOLOGY [facility] Work Phone: NEGATED: Highlighted [id number] 10:31-0400 BP Systolic 113 mm[Hg] Mary Bradyer DIRECTOR OF CARDIOLOGY [facility] Work Phone: NEGATED: Highlighted [id number] 10:31-0400 Height 175.26 cm Mary Bradyer [facility] Work Phone: NEGATED: Highlighted [id number] 10:31-0400 Height 175 cm Mary Bradyer DIRECTOR OF CARDIOLOGY [facility] Work Phone: NEGATED: Highlighted [id number] 10:31-0400 Pulse (Heart Rate) 86 /min Mary Oro LPN [facility] Work Phone: Encounters Encounter Date Encounter Type Care Provider Facility Start: 09-25-2025 End: 09-25-2025 ambulatory GALINDO Sam KWABENA Facility:[facility] Start: 09-21-2025 End: 09-21-2025 ambulatory KARON KWABENA Facility:[facility] Start: 09-09-2025 End: 09-09-2025 ambulatory KARON KWABENA [facility] [facility] Start: 08-03-2025 End: 08-03-2025 Patient encounter procedure Rashaun Manning MD Work Phone: Neurology Comment on above: ETHAN on CPAP (Primary Dx); Class 1 obesity with body mass index (BMI) of 31.0 to 31.9 in adult, unspecified obesity type, unspecified whether serious comorbidity present; Parasomnia, unspecified type Start: 08-03-2025 End: 08-03-2025 ambulatory GALINDO Sam KWABENA Facility:[facility] Start: 07-23-2025 End: 07-23-2025 Telephone encounter Ruth Jesús CHAPPELL Work Phone: Dermatology [place] Start: 06-25-2025 ambulatory GALINDO Sam KWABENA Faci lity:[facility] Start: 06-23-2025 End: 06-23-2025 ambulatory KARON KWABENA Facility:[facility] Start: 06-23-2025 End: 06-23-2025 ambulatory KARON KWABENA Facility:[facility] Start: 06-23-2025 End: 06-23-2025 Patient encounter procedure Galindo Yuan MD Work Phone: Internal Medicine [place] Comment on above: Medicare annual well ness visit, subsequent (Primary Dx); Screening for depression; Encounter for screening examination for other mental health and behavioral disorders; 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); Coronary artery disease of [place] artery of [place] heart with stable angina pectoris; Primary hypertension; Failed back syndrome; Weakness of both legs; Wheezing Start: 06-16-2025 End: 06-16-2025 Patient encounter procedure Juan Torres Work Phone: Podiatry Comment on above: Onychomycosis (Prima ry Dx); Pain in toe of right foot; Pain in toe of left foot; Other diabetic neurological complication associated with type 2 diabetes mellitus (HCC); Hyperkeratosis; Tinea pedis of left foot Start: 06-16-2025 End: 06-16-2025 ambulatory GALINDO YUAN Facility:[facility] Start: 06-08-2025 End: 06-08-2025 ambulatory Ulisses Fox PT [facility] Comment on above: Weakness of both leg s (Primary Dx); Failed back syndrome; Lumbar radiculopathy Start: 05-21-2025 End: 05-21-2025 Office outpatient visit 15 minutes Galindo Yuan MD Work Phone: Internal Medicine [place] Comment on above: Weakness of both leg s (Primary Dx); Failed back syndrome; Lumbar radiculopathy; Status post insertion of spinal cord stimulator Start: 05-21-2025 End: 05-21-2025 ambulatory GALINDO YUAN Facility:[facility] Start: 04-22-2025 End: 04-22-2025 Postop follow up visit related to original px Odin Ochoa MD Work Phone: [facility] Comment on above: 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); S/P insertion of spinal cord stimulator Start: 04-10-2025 End: 04-10-2025 ambulatory ODIN OCHOA [facility] Start: 04-01-2025 End: 06-01-2025 Follow-up encounter Anurag Bah MD Work Phone: [facility] [place] Start: 04-01-2025 End: 04-01-2025 Telephone encounter Anurag Bah MD Work Phone: [facility] [place] Comment on above: Cardiac Clearance Start: 04-01-2025 End: 04-01-2025 ambulatory GALINDO MORENOASQUEZ [facility] Start: 04-01-2025 End: 04-01-2025 Encounter for other preprocedural examination GALINDO YUAN [facility] Start: 03-26-2025 End: 03-26-2025 ambulatory GALINDO Sam YUAN Facility:[facility] Start: 03-23-2025 Encounter for preprocedural cardiovascular examination ANURAG BAH [facility] Start: 03-23-2025 End: 03-23-2025 Patient encounter procedure Anurag Bah MD Work Phone: Cardiology Comment on above: Coronary artery dise ase of [place] artery of [place] heart with stable angina pectoris (Primary Dx); Paroxysmal atrial fibrillation (HCC); Hypercholesteremia; Primary hypertension; Pre-operative cardiovascular examination Start: 03-23-2025 End: 06-23-2025 Patient encounter status Anurag Bah MD Work Phone: [facility] Start: 03-23-2025 End: 03-23-2025 ambulatory GALINDO Sam KWABENA Facility:[facility] Start: 03-13-2025 End: 03-13-2025 ambulatory GALINDO Sam YUAN Facility:[facility] Start: 03-12-2025 End: 03-12-2025 ambulatory GALINDO Sam YUAN Facility:[facility] Start: 02-24-2025 End: 02-24-2025 Follow-up encounter Ruth Perla DO Work Phone: [employer] Comment on above: Derm Surgical Path R esults (Called pt to discuss biopsy results, no answer, v-mail left for pt to return call./) Start: 02-18-2025 End: 02-18-2025 ambulatory GALINDO Sam YUAN Facility:[facility] Start: 02-18-2025 End: 02-18-2025 Patient encounter procedure Ruth Perla DO Work Phone: [employer] Comment on above: Skin exam, screening for cancer (Primary Dx); Hx of nonmelanoma skin cancer; Neoplasm of skin; Multiple benign nevi; Lentigines; Rios angioma; Seborrheic keratosis Start: 02-04-2025 End: 02-04-2025 ambulatory ODIN OCHOA [facility] Start: 02-04-2025 End: 02-04-2025 Office outpatient new 30 minutes Odin Ochoa MD Work Phone: [facility] Comment on above: 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 Ochoa at (Records faxed to Dr. Ochoa's Office) Start: 01-23-2025 End: 01-23-2025 ambulatory RENAN BOWLING Facility:[facility] Start: 01-23-2025 End: 01-23-2025 Subsequent hospital visit by physician [facility] (I-Stat/1.5t) Work Phone: Radiology Comment on above: Chronic midline thor acic back pain [M54.6, G89.29] Start: 01-21-2025 End: 01-21-2025 ambulatory RENAN BOWLING Facility:[facility] Start: 01-21-2025 End: 01-21-2025 Patient encounter procedure Renan Bowling MD Work Phone: Pain Management Comment on above: Chronic midline thor acic back pain (Primary Dx); Lumbar radiculopathy; Failed back syndrome of lumbar spine Start: 01-14-2025 End: 01-14-2025 ambulatory RENAN BOWLING Facility:[facility] Start: 01-02-2025 End: 01-02-2025 Telephone encounter Renan Bowling MD Work Phone: Pain Management Comment on above: Insurance Authorizat ion (SCS Trial) Start: 12-24-2024 End: 12-24-2024 [facility]mission [facility] Work Phone: Pre Anesthesia Start: 12-24-2024 End: 12-24-2024 ambulatory RENAN BOWLING Facility:[facility] Start: 12-24-2024 End: 12-24-2024 Anesthesia consultation Pac 3 Work Phone: Pre Anesthesia Comment on above: Pre-op evaluation (P rimary Dx); Coronary artery disease of [place] artery of [place] heart with stable angina pectoris (HCC); Hypercholesteremia; Paroxysmal atrial fibrillation (HCC); ETHAN on CPAP; 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 Start: 12-24-2024 End: 12-24-2024 Preprocedural examination done [facility] Work Phone: [facility] Work Phone: Start: 12-23-2024 End: 12-24-2024 Telephone encounter Galindo Yuan MD Work Phone: Internal Medicine [place] Comment on above: Medication Problem Start: 12-23-2024 End: 12-23-2024 Office outpatient visit 15 minutes Galindo Yuan MD Work Phone: Internal Medicine [place] Comment on above: Nocturnal leg cramps (Primary Dx); Essential hypertension; Paroxysmal atrial fibrillation (HCC); Coronary artery disease of [place] artery of [place] heart with stable angina pectoris (HCC); 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); Kidney insufficiency Start: 12-23-2024 End: 12-23-2024 ambulatory GALINDO YUAN Facility:[facility] Start: 12-15-2024 End: 12-15-2024 Orders Only Renan Bowling MD Work Phone: Pain Management Comment on above: 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); Failed back syndrome of lumbar spine; Lumbar radiculopathy; Lumbar spondylosis Start: 12-11-2024 End: 12-11-2024 ambulatory JUAN TORRES Facility:[facility] Start: 12-11-2024 End: 12-11-2024 Patient encounter procedure Juan Torres Work Phone: Podiatry Comment on above: Onychomycosis (Prima ry Dx); Pain in toe of right foot; Pain in toe of left foot; Other diabetic neurological complication associated with type 2 diabetes mellitus (HCC); Hyperkeratosis; Hammer toes of both feet Start: 12-10-2024 End: 12-10-2024 Refill Galindo Yuan MD Work Phone: Internal Medicine [place] Comment on above: Refill Request Start: 12-05-2024 End: 12-05-2024 Office outpatient visit 15 minutes Galindo Yuan MD Work Phone: Internal Medicine [place] Comment on above: Epididymitis (Primar y Dx) Start: 12-05-2024 End: 12-05-2024 ambulatory KARON KWABENA Facility:[facility] Start: 12-03-2024 End: 12-03-2024 Telephone encounter Renan Bowling MD Work Phone: Pain Management Comment on above: Hand Buffer - O ther (SCS Trial) Start: 12-03-2024 End: 12-03-2024 Patient encounter procedure Silvia Massey PhD Work Phone: Pain Management Comment on above: 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); Failed back syndrome of lumbar spine Start: 11-25-2024 End: 11-26-2024 Refill Galindo Yuan MD Work Phone: Internal Medicine [place] Comment on above: Refill Request Start: 11-24-2024 End: 11-24-2024 Telephone encounter Renan Bowling MD Work Phone: Pain Management Comment on above: Patient Update Start: 11-05-2024 End: 11-05-2024 Nursing evaluation of patient and report Mi Nurse Work Phone: Family Medicine [place] Comment on above: Encounter for immuni zation Start: 11-05-2024 End: 11-05-2024 ambulatory KARON KWABENA Facility:[facility] Start: 10-13-2024 End: 10-14-2024 Telephone encounter Renan Bowling MD Work Phone: Pain Management Comment on above: Results (Thoracic XR AY) Start: 10-02-2024 End: 10-02-2024 ambulatory RENAN BOWLING Facility:[facility] Start: 10-02-2024 End: 10-02-2024 Subsequent hospital visit by physician José Miguel [facility] [place] Work Phone: Radiology Comment on above: 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] Start: 10-01-2024 End: 10-01-2024 ambulatory RENAN BOWLING Facility:[facility] Start: 10-01-2024 End: 10-01-2024 Patient encounter procedure Renan Bowling MD Work Phone: Pain Management Comment on above: Failed back syndrome of lumbar spine (Primary Dx); Chronic midline thoracic back pain Refill Request Start: 09-22-2024 End: 09-22-2024 Patient encounter procedure Maryellen Mitchell MD Work Phone: Dermatology Comment on above: Sebaceous adenoma of face (Primary Dx) Start: 09-10-2024 End: 09-10-2024 Refill aGlindo Yuan MD Work Phone: Internal Medicine [place] Comment on above: Refill Request Start: 09-09-2024 End: 09-09-2024 Patient encounter procedure Juan Torres Work Phone: Podiatry Comment on above: Onychomycosis (Prima ry Dx); Pain in toe of right foot; Pain in toe of left foot; Other diabetic neurological complication associated with type 2 diabetes mellitus (HCC) Start: 09-01-2024 End: 09-01-2024 Telephone encounter Renan Bowling MD Work Phone: Pain Management Comment on above: Appointment ([facility] [place]) Start: 08-27-2024 End: 08-27-2024 Telephone encounter Ruth Perla DO Work Phone: Dermatology [facility] Comment on above: Results Start: 08-27-2024 End: 08-27-2024 Patient encounter procedure Blanco Hernandez MD Work Phone: Neurosurgery Comment on above: Spondylolisthesis of lumbar region (Primary Dx); Spinal stenosis, lumbar region with neurogenic claudication Start: 08-27-2024 End: 08-27-2024 ambulatory BLANCO HERNANDEZ Facility:[facility] Start: 08-20-2024 End: 08-20-2024 Patient encounter procedure Ruth Perla DO Work Phone: Dermatology [facility] Comment on above: Skin exam, screening for cancer (Primary Dx); Hx of nonmelanoma skin cancer; Neoplasm of uncertain behavior of skin; Actinic keratosis; Rios angioma; Lentigines; Multiple benign nevi; Seborrheic keratosis Start: 08-12-2024 End: 09-02-2024 Telephone encounter Blanco Hernandez MD Work Phone: [facility] [place] Start: 08-06-2024 End: 08-06-2024 Subsequent hospital visit by physician [facility] (I-Stat) Work Phone: Cat Scan Comment on above: Radiculopathy of lum bar region [M54.16] Start: 08-04-2024 End: 08-04-2024 Patient encounter procedure Blanco Hernandez MD Work Phone: [facility] [place] Comment on above: Radiculopathy of lum bar region (Primary Dx); Lumbar radiculopathy; Lumbar spondylosis Start: 2024 End: 2024 Patient encounter procedure Rashaun Manning MD Work Phone: Neurology Comment on above: ETHAN on CPAP (Primary Dx); Parasomnia, unspecified type; Class 1 obesity with body mass index (BMI) of 32.0 to 32.9 in adult, unspecified obesity type, unspecified whether serious comorbidity present Start: 07-24-2024 End: 07-24-2024 Patient encounter procedure Diane Bruce PA-C Work Phone: Cardiology Comment on above: Encounter for monito ring dofetilide therapy (Primary Dx); Paroxysmal atrial fibrillation (HCC); On continuous oral anticoagulation Start: 06-20-2024 End: 06-20-2024 Patient encounter procedure Ana Mckoy APRN.CNP Work Phone: Internal Medicine [place] Comment on above: Medicare annual well ness visit, subsequent (Primary Dx); 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); Hypertensive 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 4 chronic kidney disease, or unspecified chronic kidney disease; ETHAN on CPAP; Screening for depression; Encounter for screening examination for other mental health and behavioral disorders; Encounter for immunization Start: 06-17-2024 End: 06-17-2024 Patient encounter procedure Krystin Hernandez APRN.[employer]ENTAL [employer]OSS P[employer]ER Work Phone: Pain Management Comment on above: Lumbar radiculopathy (Primary Dx); Lumbar spondylosis Start: 06-16-2024 End: 06-16-2024 Patient encounter procedure Anurag Bah MD Work Phone: Cardiology Comment on above: 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) (Primary Dx); Paroxysmal atrial fibrillation (HCC); Hypertensive 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 4 chronic kidney disease, or unspecified chronic kidney disease; Hypercholesteremia Start: 06-03-2024 End: 06-03-2024 Patient encounter procedure Juan Melissa Work Phone: Podiatry Comment on above: Onychomycosis (Prima ry Dx); Pain in toe of right foot; Pain in toe of left foot; Other diabetic neurological complication associated with type 2 diabetes mellitus (HCC); Hyperkeratosis Start: 04-21-2024 Telephone encounter Rashaun Manning MD Work Phone: Neurology Start: 03-26-2024 End: 03-26-2024 Patient encounter procedure Sakshi Rodriguez MD Work Phone: Dermatology Comment on above: Basal cell carcinoma (BCC) of left jain region Start: 03-18-2024 End: 03-18-2024 ambulatory RENAN BOWLING Facility:[facility] Start: 03-11-2024 Telephone encounter Sakshi Nunez MD Work Phone: Cardiology Comment on above: Patient Update Start: 02-28-2024 Orders Only Renan Bowling MD Work Phone: Pain Management Comment on above: Low back pain with s ciatica, sciatica laterality unspecified, unspecified back pain laterality, unspecified chronicity (Primary Dx); Lumbar radiculopathy Cardiac Clearance (A nticoagulation ) Start: 02-25-2024 ambulatory Renan Bowling MD Work Phone: Pain Management Comment on above: Results and Recommen dations Start: 02-25-2024 E-mail encounter mariaelena fournier caregiver Renan Bowling MD Work Phone: [facility] Start: 02-21-2024 ambulatory Renan Bowling MD Work Phone: Pain Management Comment on above: Results and Recommen dations Start: 02-21-2024 E-mail encounter fro shantanu caregiver Renan Bowling MD Work Phone: [facility] Start: 02-21-2024 Telephone encounter Renan ch MD Work Phone: Pain Management Comment on above: Results (Lumbar MRI ) Start: 02-19-2024 Telephone encounter Ruth Stone josh DO Work Phone: Dermatology [place] Comment on above: Results Start: 02-19-2024 End: 02-19-2024 Subsequent hospital visit by physician [facility] (I-Stat/1.5t) Work Phone: Radiology Comment on above: Low back pain with s ciatica, sciatica laterality unspecified, unspecified back pain laterality, unspecified chronicity [M54.40] Start: 02-13-2024 End: 02-13-2024 Patient encounter procedure Renan Bowling MD Work Phone: Pain Management Comment on above: Low back pain with s ciatica, sciatica laterality unspecified, unspecified back pain laterality, unspecified chronicity (Primary Dx) Start: 02-07-2024 End: 02-07-2024 Patient encounter procedure Juan Torres Work Phone: Podiatry Comment on above: Open wound of toe, i nitial encounter (Primary Dx) Start: 02-04-2024 Telephone encounter Rashaun Manning MD Work Phone: Neurology Comment on above: Patient Update Start: 02-04-2024 End: 02-04-2024 Nursing evaluation of patient and report Mi Nurse Work Phone: [facility] Medicine [place] Comment on above: Paroxysmal atrial fi brillation (HCC) (Primary Dx); Encounter for monitoring dofetilide therapy Start: 01-30-2024 ambulatory Lety Seth RN [facility] Comment on above: MARA LEON RN ( EDU per request of payor) Start: 01-18-2024 Telephone encounter Renan ch MD Work Phone: Pain Management Comment on above: Appointment (Dr. Thierno ma Referral ) Start: 01-18-2024 End: 01-18-2024 Patient encounter procedure Rashaun Manning MD Work Phone: Neurology Comment on above: Obstructive sleep ap zach (adult) (pediatric) (Primary Dx); ETHAN on CPAP; Parasomnia, unspecified type; Cervicalgia; Lumbar pain; Lightheadedness Start: 01-03-2024 Telephone encounter Galindo mccormick MD Work Phone: Internal Medicine [place] Comment on above: Results Refill Request Start: 12-25-2023 End: 12-25-2023 Patient encounter procedure Juan Torres Work Phone: Podiatry Comment on above: 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) (Primary Dx); Onychomycosis; Pain in toe of right foot; Pain in toe of left foot; Hammer toes of both feet; Hyperkeratosis Start: 10-12-2023 End: 10-12-2023 Emergency department patient visit Galindo Yuan Facility:[facility] Start: 10-12-2023 End: 10-12-2023 Emergency department patient visit [facility] Work Phone: Start: 10-12-2023 End: 10-12-2023 Patient encounter procedure Yossi Rousseau APRN.DENTAL FLOSS P[employer]ER Work Phone: [facility] Comment on above: URI, acute (Primary Dx); Sore throat; Urinary frequency; Gross hematuria; Pre-syncope Start: 09-27-2023 Refill Ana ParishDENTAL FLOSS PACKER Work Phone: Internal Medicine [place] Comment on above: Refill Request Start: 09-14-2023 Refill Galindo albarran MD Work Phone: Internal Medicine [place] Comment on above: Refill Request Start: 07-19-2023 End: 07-19-2023 Patient encounter procedure Sakshi Nunez MD Work Phone: Cardiology Comment on above: Paroxysmal atrial fi brillation (HCC) (Primary Dx); Encounter for monitoring dofetilide therapy; Essential hypertension; Acute diastolic heart failure (HCC) Start: 07-13-2023 End: 07-13-2023 Patient encounter procedure Rashaun Manning MD Work Phone: Neurology Comment on above: ETHAN on CPAP (Primary Dx); Parasomnia, unspecified type; Cervicalgia; Lightheadedness Start: 07-09-2023 End: 07-09-2023 Patient encounter procedure Ana Edwards APRN.CNP Work Phone: Internal Medicine [place] Comment on above: Medicare annual well ness visit, subsequent (Primary Dx); Encounter for immunization Start: 06-29-2023 Telephone encounter Galindo mccormick MD Work Phone: Internal Medicine [place] Comment on above: Medication Problem Start: 06-28-2023 End: 06-28-2023 Patient encounter procedure Galindo Yuan MD Work Phone: Internal Medicine [place] Comment on above: 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) (Primary Dx); 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); Paroxysmal atrial fibrillation (HCC); Right lower quadrant pain; Adjustment insomnia; Acute diastolic heart failure (HCC); Type 2 diabetes mellitus with stage 3a chronic kidney disease, without long-term current use of insulin (HCC) Start: 06-24-2023 End: 06-24-2023 Emergency department patient visit Galindo Yuan Facility:[facility] Start: 06-24-2023 End: 06-24-2023 Emergency department patient visit [facility] Work Phone: Start: 05-11-2023 End: 05-11-2023 Patient encounter procedure Juan Torres Work Phone: Podiatry Comment on above: 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) (Primary Dx); Onychomycosis; Pain in toe of right foot; Pain in toe of left foot; Hammer toes of both feet; Hyperkeratosis Start: 04-11-2023 End: 04-12-2023 Patient encounter procedure Sakshi Rodriguez MD Work Phone: Dermatology Comment on above: Basal cell carcinoma (BCC) of left cheek Start: 03-15-2023 Telephone encounter Ruth moreno DO Work Phone: Dermatology [place] Comment on above: Results Start: 03-14-2023 End: 03-14-2023 Patient encounter procedure Ruth Perla DO Work Phone: Dermatology [place] Comment on above: Skin exam, screening for cancer (Primary Dx); Hx of nonmelanoma skin cancer; Neoplasm of skin; Actinic keratosis; Lentigines; Rios angioma; Seborrheic keratosis Start: 02-22-2023 End: 02-22-2023 ambulatory Ancelmo Madrigal PT Work Phone: [facility] Comment on above: Cervicalgia (Primary Dx) Start: 02-20-2023 End: 02-20-2023 ambulatory Sheryl Mancia [employer] Work Phone: [facility] Comment on above: Cervicalgia (Primary Dx) Start: 02-15-2023 Telephone encounter Renan ch MD Work Phone: Pain Management Comment on above: Orders (TENS unit) Start: 02-12-2023 End: 02-12-2023 Patient encounter procedure Renan Bowling MD Work Phone: Pain Management Comment on above: Cervicalgia (Primary Dx); History of fusion of cervical spine; Cervical myofascial pain syndrome Start: 01-27-2023 End: 01-27-2023 Emergency department patient visit Galindo Yuan Facility:[facility] Start: 01-27-2023 End: 01-27-2023 Emergency department patient visit [facility]Emergency Department Start: 01-15-2023 Telephone encounter Krystin arrington APRN.CNP Work Phone: Pain Management Comment on above: Medication Problem Start: 01-05-2023 Telephone encounter Camilogan Renner APRN.DENTAL FLOSS PACKER Work Phone: [facility] Comment on above: Results Start: 01-05-2023 End: 01-05-2023 Patient encounter procedure Rashaun Manning MD Work Phone: Neurology Comment on above: ETHAN on CPAP (Primary Dx); Parasomnia, unspecified type; Cervicalgia; Vertigo; Other insomnia Start: 12-28-2022 Telephone encounter Galindo mccormick MD Work Phone: Internal Medicine [place] Comment on above: Results Start: 12-26-2022 Orders Only Anurag lagunas MD Work Phone: [facility] [place] Comment on above: 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) (Primary Dx) Start: 12-22-2022 End: 12-22-2022 Subsequent hospital visit by physician [facility] Work Phone: Radiology Comment on above: Screening for AAA (a bdominal aortic aneurysm) [Z13.6] Start: 12-21-2022 Telephone encounter Sakshi Nunez MD Work Phone: [address] [place] [address] Comment on above: Orders Start: 12-20-2022 End: 12-20-2022 Patient encounter procedure Galindo Yuan MD Work Phone: Internal Medicine [place] Comment on above: Hypertensive 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 4 chronic kidney disease, or unspecified chronic kidney disease (Primary Dx); 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); Essential hypertension; Paroxysmal atrial fibrillation (HCC); Need for COVID-19 vaccine; Screening for AAA (abdominal aortic aneurysm) Start: 12-04-2022 Refill Galindo albarran MD Work Phone: Internal Medicine [place] Comment on above: Refill Request Start: 11-21-2022 Orders Only Renan Bowling MD Work Phone: Pain Management Comment on above: Cervicalgia (Primary Dx); Cervical spondylosis; Cervical facet syndrome; History of fusion of cervical spine Start: 11-16-2022 Refill Ana ParishDENTAL FLOSS PACKER Work Phone: Internal Medicine [place] Comment on above: Refill Request Start: 11-06-2022 Refill Galindo albarran MD Work Phone: Internal Medicine [place] Comment on above: Refill Request Start: 09-27-2022 Refill Galindo albarran MD Work Phone: [address] [place] [address] Comment on above: Refill Request Start: 09-25-2022 End: 09-25-2022 Patient encounter procedure Renan Bowling MD Work Phone: Pain Management Comment on above: Cervical spondylosis (Primary Dx); Cervicalgia; History of fusion of cervical spine Cervicalgia (Primary Dx); History of fusion of cervical spine; Cervical spondylosis Start: 09-05-2022 Telephone encounter Rashaun Manning MD Work Phone: Neurology Comment on above: Orders Order MRI Start: 09-04-2022 End: 09-04-2022 Patient encounter procedure Rashaun Manning MD Work Phone: Neurology Comment on above: Vertigo (Primary Dx) ; ETHAN on CPAP; Parasomnia, unspecified type; Cervicalgia; History of fusion of cervical spine Start: 08-30-2022 End: 08-30-2022 ambulatory Mi Nurse Work Phone: Family [facility] Start: 08-21-2022 Telephone encounter Faby parisi APRN.DENTAL FLOSS PACKER Work Phone: Cardiology Comment on above: Results Start: 08-21-2022 End: 08-21-2022 Patient encounter procedure Juan Torres Work Phone: Podiatry Comment on above: 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) (Primary Dx); Onychomycosis; Pain in toe of right foot; Pain in toe of left foot; Hyperkeratosis; Hammer toes of both feet Start: 08-08-2022 End: 08-08-2022 [facility] Start: 07-12-2022 End: 07-12-2022 Patient encounter procedure Linden Iglesias PA-C Work Phone: Dermatology [facility] Comment on above: Actinic keratosis (P rimary Dx); History of nonmelanoma skin cancer; Seborrheic keratosis Start: 06-20-2022 End: 06-20-2022 Patient encounter procedure Faby Georgesisak AWTTS Work Phone: Cardiology Comment on above: Coronary artery dise ase involving spokane coronary artery of spokane heart without angina pectoris (Primary Dx); Paroxysmal atrial fibrillation (HCC); Visit for monitoring Tikosyn therapy; Current use of long term care administrator anticoagulation Start: 06-19-2022 Refill Galindo albarran MD Work Phone: Internal Medicine [place] Comment on above: Medication Problem Start: 06-06-2022 ambulatory Galindo albarran MD Work Phone: Internal Medicine [facility] [place] Start: 05-16-2022 Telephone encounter Rashaun Manning MD Work Phone: Neurology Comment on above: Results Start: 05-15-2022 End: 05-15-2022 Subsequent hospital visit by physician Mri Radio [facility] Wstr (I-Stat/1.5t) Work Phone: Radiology Comment on above: Spinal stenosis of c ervical region [M48.02] Start: 05-02-2022 End: 05-02-2022 Patient encounter procedure Juan Torres Work Phone: Podiatry Comment on above: 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) (Primary Dx); Onychomycosis; Pain in toe of right foot; Pain in toe of left foot; Hyperkeratosis; Hammer toes of both feet Start: 05-01-2022 Telephone encounter Rashaun Manning MD Work Phone: Neurology Comment on above: Orders (New DME ) Start: 05-01-2022 End: 05-01-2022 Patient encounter procedure Rashaun Manning MD Work Phone: Neurology Comment on above: ETHAN on CPAP (Primary Dx); Parasomnia, unspecified type; Cervicalgia; Spinal stenosis of cervical region; History of fusion of cervical spine Start: 05-15-2019 End: 05-15-2019 Patient encounter procedure Kemi Todd UNIVERSITY TUTOR-DENTAL FLOSS PACKER Work Phone: [facility] Work Phone: Start: 09-09-2018 [facility] Facility :[facility] Start: 01-09-2018 End: 01-09-2018 [facility] Facility:[facility] Start: 09-21-2017 End: 09-21-2017 [facility] Facility:[facility] Procedures Date Procedure Procedure Detail Performing Clinician Start: 06-23-2025 Hemoglobin A1c/Hemoglobin.total in Blood Galindo Yuan MD Work Phone: Start: 06-23-2025 Adult depression screening assessment Galindo Yuan MD Work Phone: Start: 01-23-2025 Mri spinal canal thoracic w/o contrast matrl Renan Bowling MD Work Phone: Start: 12-05-2024 Urnls dip stick/tabl et rgnt auto w/o microscopy Galindo Yuan MD Work Phone: Start: 09-22-2024 Level iv surg pathol ogy gross&microscopic exam Maryellen Mitchell MD Work Phone: Start: 08-06-2024 Ct lumbar spine w/o contrast material Blanco Hernandez MD Work Phone: Start: 06-20-2024 Hemoglobin A1c/Hemoglobin.total in Blood Ana Mckoy UNIVERSITY TUTOR.DENTAL FLOSS PACKER Work Phone: Start: 06-20-2024 [email or web address] COVID-19 VACCINE (2022- SEASON) AGE 12+ YR Ana Mckoy UNIVERSITY TUTOR.DENTAL FLOSS PACKER Work Phone: Start: 06-20-2024 Adult depression screening assessment Ana Mckoy UNIVERSITY TUTOR.DENTAL FLOSS PACKER Work Phone: Start: 02-19-2024 Mri spinal canal lum bar w/o contrast material Renan Bowling MD Work Phone: Start: 02-04-2024 Ecg routine ecg w/le ast 12 lds i&r only [facility] Provider Start: 10-12-2023 Plain chest X-ray Start: 10-12-2023 Gluc bld gluc mntr d ev cleared fda spec home use [facility] Provider Start: 10-12-2023 INFLUENZA A&B MOLECU LAR (POC) [facility] Provider Start: 10-12-2023 Urnls dip stick/tabl et rgnt auto w/o microscopy [facility] Provider Start: 10-12-2023 STREP A MOLECULAR (POC) [facility] Provider Start: 10-12-2023 SARS-CoV-2 & FLU Antigen (Rapid) Start: 07-19-2023 Ecg routine ecg w/le ast 12 lds i&r only [facility] Provider Start: 07-09-2023 [employer] COVID-19 BIVALENT VACCINE, AGE 12+ YR Ana Older UNIVERSITY TUTOR.DENTAL FLOSS PACKER Work Phone: Start: 06-24-2023 Plain chest X-ray Start: 12-22-2022 Us abdominal aorta r eal time screen study aaa Galindo Yuan MD Work Phone: Start: 12-20-2022 [employer] COVID-19 BIVALENT BOOSTER VACCINE, AGE 12+ YR Galindo Yuan MD Work Phone: Start: 08-30-2022 INFLUENZA SEASONAL QUADRIVALENT HIGH DOSE AGE 65+ Galindo Yuan MD Work Phone: Start: 08-08-2022 Plain chest X-ray Start: 08-08-2022 CT of head without contrast Start: 06-20-2022 Ecg routine ecg w/le ast 12 lds w/i&r [facility] Provider Start: 05-15-2022 Mri spinal canal cervical w/o contrast matrl Rashaun Manning MD Work Phone: Start: 09-08-2019 History of placement of stent for coronary artery disease S/P coronary artery stent placement, multiple stent placements, 2008, 2011, 2012. Rashaun Manning Jr., MD Work Phone: Start: 05-15-2019 End: 05-15-2019 Blood pressure within normal parameters - no follow-up required Kemi Todd APRN-DENTAL FLOSS PACKER Work Phone: Start: 05-15-2019 End: 05-15-2019 BMI outside of normal parameters - no follow-up plan/reason not given Kemi Todd APRN-LOWELL Work Phone: Start: 05-15-2019 End: 05-15-2019 Documentation of current medications Kemi Todd APRN-DENTAL FLOSS PACKER Work Phone: Start: 05-15-2019 End: 05-15-2019 Pain assessment documented as positive - follow-up documented Kemi Todd APRN-DENTAL FLOSS PACKER Work Phone: Start: 05-15-2019 End: 05-15-2019 Tobacco non-user Kemi Todd APRN-DENTAL FLOSS PACKER Work Phone: History of placement of stent for coronary artery disease S/P coronary artery stent placement, multiple stent placements, 2008, 2011, 2012. Pacc 3 Work Phone: NEGATED: Highlighted rowStart: 05-15-2019 End: 05-15-2019 Documentation of current medications Mary Oro LPN Plan of Treatment Date Care Activity Detail Author Start: 08-06-2026 End: 08-06-2026 Patient encounter procedure 08/06/2026 9:00 AM EDT Office Visit Neurology [address] [place] [phone] Rashaun Manning Jr., MD [address] [place], [place] [phone] 1 year follow up Neurology Comment on above: 1 year follow up Start: 06-23-2026 Anxiety Screening Anxiety Screening [facility] Start: 06-23-2026 Depression Screening Depression Screening [facility] Start: 06-23-2026 Hepatitis B screening Urine Albumin:Creatinine Ratio [facility] Start: 06-16-2026 Diabetic foot examination Diabetic Foot Exam [facility] Start: 05-11-2026 Glaucoma screening Dilated Retinal Exam [facility] Start: 04-01-2026 Creatinine measurement Creatinine Level [facility] Start: 04-01-2026 Potassium measurement Potassium Level [facility] Start: 03-26-2026 Hepatitis B surface antibody level LDL Cholesterol [facility] Start: 12-24-2025 Hemoglobin A1c measurement HbA1C [facility] Start: 12-24-2025 End: 12-24-2025 Patient encounter procedure 12/24/2025 9:40 AM EST Office Visit Internal Medicine [place] [address] [place] [address] Galindo Yuan MD [address] [place] [address] 6 month follow up Internal Medicine [place] Comment on above: 6 month follow up Start: 12-05-2025 Covid-19 Vaccine () Covid-19 Vaccine () [facility] Comment on above: Postponed from 08/15/2024 (Declined at t his time) Start: 11-02-2025 End: 11-02-2025 Patient encounter procedure 11/02/2025 1:20 PM EST Office Visit Cardiology [address] [place] [address] Anurag Bah MD [address] [facility] [address] [place] [address] 6-month follow up Cardiology Comment on above: 6-month follow up Start: 09-21-2025 End: 09-21-2025 Patient encounter procedure 09/21/2025 9:15 AM EST Office Visit Podiatry [address] [place] [address] Juan Torres [address] [place] [address] 2nd att to r/s -BETSY 07/30 Podiatry Comment on above: 2nd att to r/s -BETSY 07/30 Start: 09-17-2025 End: 09-17-2025 Patient encounter procedure 09/17/2025 8:15 AM EDT Office Visit Podiatry [address] [place] [address] Juan Torres [address] [place] [address] 3 month follow up nail care Podiatry Comment on above: 3 month follow up nail care Start: 09-09-2025 End: 09-09-2025 Patient encounter procedure 09/09/2025 1:40 PM EDT Office Visit Dermatology [facility] [address] [place] [address] Ruth Perla, DO [address] [place], [place] [phone] FBSE Dermatology [facility] Comment on above: FBSE Start: 08-26-2025 End: 08-26-2025 Patient encounter procedure Dermatology [facility] Comment on above: FBSE 07/23 [facility] Start: 08-19-2025 End: 08-19-2025 Patient encounter procedure 08/19/2025 11:30 AM EDT Office Visit [facility] [address] [place] [phone] Ruth Perla, DO [address] [place], [place] [phone] FBSE Dermatology [facility] Comment on above: FBSE Start: 08-03-2025 End: 08-03-2025 Patient encounter procedure Neurology Comment on above: 1 year follow up Start: 07-20-2025 Influenza [facility] Start: 07-07-2025 DTaP/Tdap/Td Vaccines (3 - Tdap) DTaP/Tdap/Td Vaccines (3 - Tdap) [facility] Start: 07-07-2025 Urine microalbumin profile [facility] Start: 07-03-2025 End: 07-03-2025 ambulatory 07/03/2025 8:15 AM EDT OT/PT/Speech Visit [facility] Physical Therapy [address] [place] [address] Ulisses Fox, PT R29.898 (ICD-10-CM) - Weakness of both legs [facility] Comment on above: R29.898 (ICD-10-CM) - Weakness of both l egs Start: 06-25-2025 End: 06-25-2025 Patient encounter procedure 06/25/2025 9:30 AM EDT Appointment Radiology [address] [place] [address] XR CHEST 2V FRONTAL/LAT Radiology Comment on above: XR CHEST 2V FRONTAL/LAT Start: 06-23-2025 End: 09-22-2025 Microalbumin/Creatinine [Mass Ratio] in Urine [facility] Work Phone: Comment on above: Expected: 06/23/2025, Expires: Start: 06-23-2025 End: 06-23-2025 ambulatory 06/23/2025 9:30 AM EDT OT/PT/Speech Visit [facility] [address] [place] [address] Sheryl Mancia, SUPERVISOR [employer] [address] [place] [address] R29.898 (ICD-10-CM) - Weakness of both legs [facility] Comment on above: R29.898 (ICD-10-CM) - Weakness of both l egs Start: 06-23-2025 End: 06-23-2025 Patient encounter procedure 06/23/2025 8:00 AM EDT Office Visit Internal Medicine [place] [address] [facility] [place] [place] [address] Galindo Yuan MD [address] [facility] [place] [address] Annual Medicare Wellness w/6 month follow-up Internal Medicine [place] Comment on above: Annual Medicare Wellness w/6 month follo w-up Start: 06-20-2025 Anxiety Screening Anxiety Screening [facility] Start: 06-20-2025 Depression Screening Depression Screening [facility] Start: 06-20-2025 Hemoglobin A1c measurement Diabetes: Hemoglobin A1C [facility] Start: 06-19-2025 End: 06-19-2025 ambulatory 06/19/2025 8:15 AM EDT OT/PT/Speech Visit [facility] [address] [place] [address] Ulisses Fox, PT R29.898 (ICD-10-CM) - Weakness of both legs [facility] Comment on above: R29.898 (ICD-10-CM) - Weakness of both l egs Start: 06-16-2025 End: 06-16-2025 Patient encounter procedure 06/16/2025 8:15 AM EDT Office Visit Podiatry [address] [place] [address] Juan Torres [address] [place] [address] 3 month follow up nail care Podiatry Comment on above: 3 month follow up nail care Start: 06-08-2025 End: 06-08-2025 ambulatory 06/08/2025 9:00 AM EDT OT/PT/Speech Visit [facility] [address] [place] [address] Ulisses Fox, PT Weakness of both legs [R29.898] [facility] Comment on above: Weakness of both legs [R29.898] Start: 06-03-2025 Diabetic foot examination Diabetic Foot Exam [facility] Start: 03-23-2025 End: 03-15-2026 Comprehensive metabolic 2000 panel - Serum or Plasma COMPREHENSIVE METABOLIC PANEL Lab Routine Coronary artery disease of [place] artery of [place] heart with stable angina pectoris Expected: 03/23/2025, Expires: 03/15/2026 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 Hypercholesteremia Expected: 03/23/2025, Expires: 03/15/2026 [facility] Comment on above: Expected: 03/23/2025, Expires: Start: 03-23-2025 End: 03-23-2025 Patient encounter procedure Cardiology Comment on above: 9-month follow up Start: 03-19-2025 Glaucoma screening Dilated Retinal Exam [facility] Start: 03-12-2025 End: 03-12-2025 Patient encounter procedure Podiatry Comment on above: 3 month follow up nail care Start: 02-18-2025 End: 02-18-2025 Patient encounter procedure 02/18/2025 9:40 AM EDT Office Visit Dermatology [facility] [address] [place] [address] Ruth Perla DO [address] [place] [address] FBSE Dermatology [facility] Comment on above: FBSE Start: 01-23-2025 End: 01-23-2025 Patient encounter procedure 01/23/2025 8:00 AM EST Appointment Radiology [address] [place] [address] 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 6, G89.29] Start: 01-21-2025 End: 07-24-2025 ECG COMPLETE ECG COMPLETE ECG Routine Encounter for monitoring dofetilide therapy Paroxysmal atrial fibrillation (HCC) Expected: 01/21/2025 (Approximate), Expires: 07/24/2025 [facility] Comment on above: Expected: 01/21/2025 (Approximate), Expi res: 07/24/2025 Start: 01-21-2025 End: 01-21-2025 Patient encounter procedure 01/21/2025 10:30 AM EST Office Visit Pain Management [address] [facility] [address] [place] [address] Renan Bowling MD [address] [facility] [address] [place] [address] SCS Assessment/Removal (Nevro Rep) Pain Management Comment on above: SCS Assessment/Removal (Nevro Rep) Start: 01-14-2025 End: 01-14-2025 Admission to same day surgery center 01/14/2025 7:30 AM EST - 01/14/2025 8:49 AM EST Surgery [facility] Surgery [address] [place] [address] Renan Bowling MD [address] [facility] [place] [address] PERCUTANEOUS IMPLANT LEAD NEUROSTIM EPIDURAL TRIAL [facility] Comment on above: PERCUTANEOUS IMPLANT LEAD NEUROSTIM EPID URAL TRIAL Start: 01-14-2025 End: 01-14-2025 Prq impltj nstim electrode array epidural PERCUTANEOUS IMPLANT LEAD NEUROSTIM EPIDURAL TRIAL 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 Lumbar radiculopathy Lumbar spondylosis 01/14/2025 7:30 AM EST ME OR Start: 01-14-2025 Subsequent hospital visit by physician 01/14/2025 7:30 AM EST Hospital Encounter [facility] Surgery [address] [place] [address] Renan Bowling MD [address] [facility] [place] [address] 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], 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], Lumbar radiculopathy [M54.16], Lumbar spondylosis [M47.816] [facility] Comment on above: 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], 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], Lumbar radiculopathy [M54.16], Lumbar spondylosis [M47.816] Start: 01-01-2025 Diabetes mellitus screening Diabetes Screening [facility] Start: 01-01-2025 Hepatitis B screening Urine Albumin:Creatinine Ratio [facility] Start: 01-01-2025 Hepatitis B surface antibody level LDL Cholesterol [facility] Start: 01-01-2025 Urine screening for protein CKD: Urine Protein Screening [facility] Start: 12-24-2024 End: 12-24-2024 Anesthesia consultation 12/24/2024 9:00 AM EST PAT Pre Anesthesia [address] [facility] [address] [place] [address] DOS 01/14 Pre Anesthesia Comment on above: DOS 01/14 Start: 12-23-2024 End: 12-23-2024 Patient encounter procedure 12/23/2024 8:40 AM EST Office Visit Internal Medicine [place] [address] [place] [address] Galindo Yuan MD [address] [facility] [place] [address] 6 month follow up Internal Medicine [place] Comment on above: 6 month follow up Start: 12-21-2024 Hemoglobin A1c measurement HbA1C [facility] Start: 12-11-2024 End: 12-11-2024 Patient encounter procedure Podiatry Comment on above: 3 month follow up nail care Start: 12-05-2024 End: 12-05-2024 Patient encounter procedure 12/05/2024 11:40 AM EST Office Visit Internal Medicine [place] [address] [facility] [place] [address] Galindo Yuan MD [address] [place] [address] testicle pain x1 week Internal Medicine [place] Comment on above: testicle pain x1 week Start: 12-03-2024 End: 12-03-2024 Patient encounter procedure 12/03/2024 1:00 PM EST Office Visit Pain Management [address] [place] [address] Silvia Villanueva, PhD [address] [facility] [address] [place], [place] [phone] NPPS - Dr Bowling Referred Pain Management Comment on above: NPPS - Dr Bowling Referred Start: 11-19-2024 Advance Directive Discussion Advance Directive Discussion [facility] Start: 11-19-2024 Medicare Advantage Annual Wellness Visit Medicare Advantage Annual Wellness Visit [facility] Start: 10-02-2024 End: 10-02-2024 Patient encounter procedure 10/02/2024 9:30 AM EST Appointment Radiology [address] [place] [address] 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] Radiology Comment on above: Failed back syndrome of lumbar spine [M9 6.1] Start: 10-01-2024 End: 10-01-2024 Patient encounter procedure 10/01/2024 9:30 AM EST Office Visit Pain Management [address] [facility] [address] [place], [place] [phone] Renan Bowling MD [address] [facility] [address] [place], [place] [phone] SCS Evaluation Pain Management Comment on above: SCS Evaluation Start: 09-22-2024 End: 09-22-2024 Patient encounter procedure 09/22/2024 1:30 PM EST Office Visit Dermatology [address] [place] [address] Maryellen Mitchell MD [address] [place], [place] [phone] Exc, left glabella, shave biopsy: Dermatology Comment on above: Exc, left glabella, shave biopsy: Start: 09-09-2024 End: 09-09-2024 Patient encounter procedure 09/09/2024 8:30 AM EDT Office Visit Podiatry [address] [place] [address] Juan Torres [address] [place] [address] 3MTH FOLLOW UP Podiatry Comment on above: 3MTH FOLLOW UP Start: 09-05-2024 End: 09-05-2024 Patient encounter procedure 09/05/2024 8:15 AM EDT Office Visit Podiatry [address] [place] [address] Juan Torres [address] [place], [place] [address] 3MTH FOLLOW UP Podiatry Comment on above: 3MTH FOLLOW UP Start: 08-20-2024 End: 08-20-2024 Patient encounter procedure 08/20/2024 1:20 PM EDT Office Visit Dermatology [facility] [address] [place] [address] Jesús RuthDO [address] [place] [address] 6 month FBSE Dermatology [facility] Comment on above: 6 month FBSE Start: 08-15-2024 COVID-19 Vaccine ( season) COVID-19 Vaccine () [facility] Start: 08-15-2024 Covid-19 Vaccine ( season) Covid-19 Vaccine () [facility] Start: 08-06-2024 End: 08-06-2024 Patient encounter procedure 08/06/2024 3:20 PM EDT Appointment Cat Scan [address] [place] [address] Radiculopathy of lumbar region [M54.16] Cat Scan Comment on above: Radiculopathy of lumbar region [M54.16] Start: 08-04-2024 End: 08-04-2024 Patient encounter procedure [facility] Comment on above: Lumbar radiculopathy [M54.16] Start: 2024 End: 2024 Patient encounter procedure Neurology Comment on above: ETHAN 6 mth follow up ETHAN 6 mth follow up, on [facility] Start: 07-24-2024 End: 07-24-2024 Patient encounter procedure 07/24/2024 11:00 AM EDT Office Visit Cardiology [address] [place] [address] Diane Bruce PA-C [address] [place] [address] cardiology follow up afib Cardiology Comment on above: cardiology follow up afib Start: 07-20-2024 Influenza vaccination [facility] Start: 07-10-2024 Medicare Annual Wellness Visit Medicare Annual Wellness Visit (AWV) [facility] Start: 07-01-2024 Hemoglobin A1c measurement HbA1C [facility] Start: 06-20-2024 End: 06-20-2024 Patient encounter procedure 06/20/2024 7:00 AM EDT Office Visit Internal Medicine [place] [address] [place] [address] Ana Mckoy, UNIVERSITY TUTOR.DENTAL FLOSS PACKER [address] [place] [address] 6 month follow up/medicare wellness Internal Medicine [place] Comment on above: 6 month follow up/medicare wellness Start: 06-17-2024 End: 06-17-2024 Patient encounter procedure 06/17/2024 9:30 AM EDT Office Visit Pain Management [address] [address] Krystin Hernandez, UNIVERSITY TUTOR.DENTAL FLOSS PACKER [address] [place] [address] consult for inj Pain Management Comment on above: consult for inj Start: 06-16-2024 End: 06-16-2024 Patient encounter procedure 06/16/2024 11:40 AM EDT Office Visit Cardiology [address] [place] [phone] Anurag Bah MD [address] [facility] [address] [place] [address] 6 month follow up Cardiology Comment on above: 6 month follow up Start: 05-11-2024 3 comp foot exam completed DIABETIC FOOT EXAM [facility] Start: 05-11-2024 Diabetic foot examination Diabetic Foot Exam [facility] Start: 04-19-2024 Covid-19 Vaccine ( season) Covid-19 Vaccine () [facility] Start: 03-26-2024 End: 03-26-2024 Patient encounter procedure 03/26/2024 2:00 PM EDT Office Visit Dermatology [address] [place] [address] Sakshi Gibson MD [address] [place] [id number] Mohs: BCC left jain, 1 pt Dermatology Comment on above: Mohs: BCC left jain, 1 pt Start: 03-18-2024 End: 03-18-2024 Admission to same day surgery center 03/18/2024 8:30 AM EDT - 03/18/2024 8:56 AM EDT Surgery [facility] Surgery [address] [place] [address] Renan Bowling MD [address] [place] [address] INJECTION(S) ANESTHETIC AGENT AND STEROID TRANSFORAMINAL EPIDURAL W/ IMAGING GUIDANCE LUMBAR [facility] Surgery Comment on above: INJECTION(S) ANESTHETIC AGENT AND STEROI D TRANSFORAMINAL EPIDURAL W/ IMAGING GUIDANCE LUMBAR Start: 03-18-2024 End: 03-18-2024 Njx anes&/strd w/img tfrml edrl lmbr/sac 1 lvl INJECTION(S) ANESTHETIC AGENT AND STEROID TRANSFORAMINAL EPIDURAL W/ IMAGING GUIDANCE LUMBAR Low back pain with sciatica, sciatica laterality unspecified, unspecified back pain laterality, unspecified chronicity Lumbar radiculopathy 03/18/2024 8:30 AM EDT ME OR Start: 03-18-2024 Subsequent hospital visit by physician 03/18/2024 8:30 AM EDT Hospital Encounter [facility] Surgery [address] [place] [address] Renan Bowling MD [address] [facility] [place] [address] Low back pain with sciatica, sciatica laterality unspecified, unspecified back pain laterality, unspecified chronicity [M54.40] [facility] Surgery Comment on above: Low back pain with sciatica, sciatica la terality unspecified, unspecified back pain laterality, unspecified chronicity [M54.40] Start: 02-22-2024 Glaucoma screening Dilated Retinal Exam [facility] Start: 02-22-2024 Hepatitis C antibody, confirmatory test DILATED RETINAL EXAM [facility] Start: 12-21-2023 Hemoglobin A1c measurement HbA1C [facility] Start: 12-21-2023 Hemoglobin A1c/Hemoglobin.total in Blood HBA1C [facility] Start: 12-07-2023 Hepatitis B screening URINE ALBUMIN:CREATININE RATIO [facility] Start: 12-07-2023 Hepatitis B surface antibody level LDL CHOLESTEROL [facility] Start: 11-19-2023 Advance Directive Discussion Advance Directive Discussion [facility] Start: 11-19-2023 Behavioral Health Screening Behavioral Health Screening [facility] Start: 10-12-2023 [facility] Start: 10-12-2023 [facility] Start: 10-12-2023 End: 10-12-2023 Blood culture [facility] Start: 10-12-2023 Bacteria identified in Blood by Culture Blood Culture [facility] Start: 10-12-2023 Bacteria identified in Urine by Culture [facility] Start: 09-03-2023 Covid-19 Vaccine ( season) Covid-19 Vaccine () [facility] Start: 07-20-2023 Influenza vaccination [facility] Start: 07-19-2023 End: 09-18-2023 Basic metabolic 2000 panel - Serum or Plasma BASIC METABOLIC PNL Lab Routine Encounter for monitoring dofetilide therapy Expected: 07/19/2023, Expires: 09/18/2023 [facility] Work Phone: Comment on above: Expected: 07/19/2023, Expires: Start: 07-19-2023 End: 09-18-2023 Magnesium [Mass/volume] in Serum or Plasma MAGNESIUM BLD Lab Routine Paroxysmal atrial fibrillation (HCC) Encounter for monitoring dofetilide therapy Expected: 07/19/2023, Expires: 09/18/2023 [facility] Work Phone: Comment on above: Expected: 07/19/2023, Expires: Start: 06-28-2023 End: 08-28-2023 Urinalysis complete panel - Urine URINALYSIS, WITH MICROSCOPIC Lab Routine Right lower quadrant pain Expected: 06/28/2023, Expires: 08/28/2023 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 Work Phone: Comment on above: Expected: 06/19/2023, Expires: 3 Start: 06-06-2023 Hemoglobin A1c/Hemoglobin.total in Blood HBA1C [facility] Start: 05-02-2023 3 comp foot exam completed DIABETIC FOOT EXAM [facility] Start: 04-19-2023 COVID-19 VACCINE (6 - Pfizer series) COVID-19 VACCINE (6 - Pfizer series) [facility] Start: 02-17-2023 Hepatitis C antibody, confirmatory test DILATED RETINAL EXAM [facility] Start: 12-21-2022 End: 02-20-2023 CBC panel - Blood by Automated count CBC Lab Routine Current use of long term care administrator anticoagulation Expected: 12/21/2022, Expires: 02/20/2023 [facility] Work Phone: Comment on above: Expected: 12/21/2022, Expires: 3 Start: 12-20-2022 Hemoglobin A1c/Hemoglobin.total in Blood HBA1C [facility] Start: 11-19-2022 ADVANCE DIRECTIVE DISCUSSION ADVANCE DIRECTIVE DISCUSSION [facility] Start: 11-19-2022 DEPRESSION ASSESSMENT DEPRESSION ASSESSMENT [facility] Start: 11-17-2022 Hepatitis B screening URINE ALBUMIN:CREATININE RATIO [facility] Start: 11-17-2022 Hepatitis B surface antibody level LDL CHOLESTEROL [facility] Start: 08-14-2022 COVID-19 VACCINE (5 - Booster for Pfizer series) COVID-19 VACCINE (5 - Booster for Pfizer series) [facility] Start: 07-20-2022 Influenza vaccination INFLUENZA (#1) [facility] Start: 06-06-2022 End: 08-06-2022 Hemoglobin A1c in Blood HGB A1C Lab Routine 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 Work Phone: Comment on above: Expected: 06/06/2022, Expires: 2 Start: 06-06-2022 End: 08-06-2022 SCHEDULE LAB TESTING SCHEDULE LAB TESTING Lab Routine Expected: 06/06/2022, Expires: 08/06/2022 [facility] Work Phone: Comment on above: Expected: 06/06/2022, Expires: 2 Start: 05-18-2022 Hemoglobin A1c/Hemoglobin.total in Blood HBA1C [facility] Start: 03-22-2022 COVID-19 VACCINE (4 - Booster for Pfizer series) COVID-19 VACCINE (4 - Booster for Pfizer series) [facility] Start: 02-14-2022 3 comp foot exam completed DIABETIC FOOT EXAM [facility] Start: 11-19-2021 ADVANCE DIRECTIVE DISCUSSION ADVANCE DIRECTIVE DISCUSSION [facility] Start: 11-19-2021 DEPRESSION ASSESSMENT DEPRESSION ASSESSMENT [facility] Start: 05-29-2019 End: 05-29-2019 Appointment Appointment [facility] Work Phone: Start: 05-15-2019 End: 05-15-2019 Appointment Appointment [facility] Work Phone: Start: 05-15-2019 End: 05-15-2019 Radex spine lumbosacral 2/3 views XR LUMBAR 2-3 VWS AP/LAT [facility] Work Phone: Start: 2000 RSV Vaccine (1 - 1-dose 60+ series) RSV Vaccine (1 - 1-dose 60+ series) [facility] Start: 1958 Anxiety Screening Anxiety Screening [facility] Start: 1958 Depression Screening Depression Screening [facility] Start: 1940 Echocardiography Echocardiogram [facility] Start: 1940 Lipid panel Lipid Panel [facility] Start: 1940 Medicare Annual Wellness Visit Medicare Annual Wellness Visit (AWV) [facility] ALERE STREP A TEST (AG) ALERE ST REP A TEST (AG) Lab Routine Sore throat Ordered: 10/12/2023 [facility] Work Phone: Comment on above: Ordered: 10/12/2023 End: 06-20-2023 Basic metabolic 2000 panel - Serum or Plasma BASIC METABOLIC PNL Lab Routine Paroxysmal atrial fibrillation (HCC) Visit for monitoring Tikosyn therapy Every 3 months for 4 Occurrences starting 06/20/2022 until 06/20/2023 [facility] Work Phone: Comment on above: Every 3 months for 4 Occurrences startin g 06/20/2022 until 06/20/2023 End: 07-24-2025 Basic metabolic 2000 panel - Serum or Plasma BASIC METABOLIC PANEL Lab Routine Encounter for monitoring dofetilide therapy Paroxysmal atrial fibrillation (HCC) Every 6 months for 2 Occurrences starting 07/24/2024 until 07/24/2025 [facility] Work Phone: Comment on above: Every 6 months for 2 Occurrences startin g 07/24/2024 until 07/24/2025 End: 09-03-2025 CT Lumbar spine WO contrast CT LUMBAR SPINE WO IVCON Radiology Routine Radiculopathy of lumbar region 1 Occurrences starting 08/04/2024 until 09/03/2025 [facility] Work Phone: Comment on above: 1 Occurrences starting 08/04/2024 until 09/03/2025 End: 06-20-2023 ECG COMPLETE ECG COMPLETE ECG Routine Coronary artery disease involving [place] coronary artery of [place] heart without angina pectoris 1 Occurrences starting 06/20/2022 until 06/20/2023 [facility] Work Phone: Comment on above: 1 Occurrences starting 06/20/2022 until 06/20/2023 ECG COMPLETE ECG COMPLETE ECG 06/20/2022 11:[address] [facility] End: 07-19-[address] [facility] Work Phone: Comment on above: 1 Occurrences starting 07/19/2023 until 07/19/2024 Every 3 months for 4 Occurrences starting 07/19/2023 until 07/19/2024 ECG COMPLETE ECG COMPLETE ECG 02/04/2024 9:[address] [facility] ECG COMPLETE ECG COMPLETE ECG Routine Encounter for monitoring dofetilide therapy Paroxysmal atrial fibrillation (HCC) Ordered: 07/24/2024 [facility] Comment on above: Ordered: 07/24/2024 End: 07-19-2024 Echocardiography ECHO Cardiology Routine Paroxysmal atrial fibrillation (HCC) 1 Occurrences starting 07/19/2023 until 07/19/2024 [facility] Work Phone: Comment on above: 1 Occurrences starting 07/19/2023 until 07/19/2024 End: 06-20-2023 Magnesium [Mass/volume] in Serum or Plasma MAGNESIUM BLD Lab Routine Paroxysmal atrial fibrillation (HCC) Visit for monitoring Tikosyn therapy Every 3 months for 4 Occurrences starting 06/20/2022 until 06/20/2023 [facility] Work Phone: Comment on above: Every 3 months for 4 Occurrences startin g 06/20/2022 until 06/20/2023 End: 07-24-2025 Magnesium [Mass/volume] in Serum or Plasma MAGNESIUM Lab Routine Encounter for monitoring dofetilide therapy Paroxysmal atrial fibrillation (HCC) Every 6 months for 2 Occurrences starting 07/24/2024 until 07/24/2025 [facility] Comment on above: Every 6 months for 2 Occurrences startin g 07/24/2024 until 07/24/2025 End: 03-14-2025 MR Lumbar spine WO contrast MRI LUMBAR SPINE WO IVCON Radiology Routine Low back pain with sciatica, sciatica laterality unspecified, unspecified back pain laterality, unspecified chronicity 1 Occurrences starting 02/13/2024 until 03/14/2025 [facility] Work Phone: Comment on above: 1 Occurrences starting 02/13/2024 until 03/14/2025 End: 02-20-2026 MR Thoracic spine WO contrast MRI THORACIC SPINE WO IVCON Radiology Routine Chronic midline thoracic back pain 1 Occurrences starting 01/21/2025 until 02/20/2026 [facility] Work Phone: Comment on above: 1 Occurrences starting 01/21/2025 until 02/20/2026 End: 10-05-2023 Mra head w/o contrst material MRA BRAIN WO IVCON Radiology Routine Vertebrobasilar artery syndrome 1 Occurrences starting 09/05/2022 until 10/05/2023 [facility] Work Phone: Comment on above: 1 Occurrences starting 09/05/2022 until 10/05/2023 End: 10-05-2023 Mra neck w/o contrst material MRA CAROTID WO IVCON Radiology Routine Vertebrobasilar artery syndrome 1 Occurrences starting 09/05/2022 until 10/05/2023 [facility] Work Phone: Comment on above: 1 Occurrences starting 09/05/2022 until 10/05/2023 End: 10-05-2023 Mri brain brain stem w/o contrast material MRI BRAIN WO IVCON Radiology Routine Vertebrobasilar artery syndrome 1 Occurrences starting 09/05/2022 until 10/05/2023 [facility] Work Phone: Comment on above: 1 Occurrences starting 09/05/2022 until 10/05/2023 End: 05-31-2023 Mri spinal canal cervical w/o contrast matrl MRI CERVICAL SPINE WO IVCON Radiology Routine Spinal stenosis of cervical region 1 Occurrences starting 05/01/2022 until 05/31/2023 [facility] Work Phone: Comment on above: 1 Occurrences starting 05/01/2022 until 05/31/2023 Njx anes&/strd w/img tfrml edrl lmbr/sac 1 lvl INJ TRANSFORAMINAL EPID ANES/STER LS SINGL Procedures Routine Low back pain with sciatica, sciatica laterality unspecified, unspecified back pain laterality, unspecified chronicity Lumbar radiculopathy Ordered: 02/21/2024 [facility] Work Phone: Comment on above: Ordered: 02/21/2024 Njx dx/ther agt pvrt facet jt crv/thrc 1 level NJX DX/THER AGT PVRT FACET JT CRV/THRC 1 LEVEL Procedures Routine Cervicalgia Cervical spondylosis 1 Occurrences starting 09/25/2022 [facility] Work Phone: Comment on above: 1 Occurrences starting 09/25/2022 Patient Education [facility] Work Phone: Patient referral [facility] Work Phone: Prq impltj nstim electrode array epidural SPINAL CORD STIM PERCT SCS ELCT Procedures Routine Failed back syndrome of lumbar spine 1 Occurrences starting 10/01/2024 [facility] Work Phone: Comment on above: 1 Occurrences starting 10/01/2024 SARS-CoV-2 (COVID-19 ) RNA [Presence] in Respiratory specimen by VAN with probe detection COVID NAAT, UPPER RESPIRATORY, ROUTINE Microbiology Routine URI, acute Ordered: 10/12/2023 [facility] Work Phone: Comment on above: Ordered: 10/12/2023 SURGICAL PATHOLOGY SURGICAL PATH OLOGY Lab Routine Neoplasm of skin 03/14/2023 3:[address] [facility] Work Phone: SURGICAL PATHOLOGY SURGICAL PATH OLOGY Lab Routine Neoplasm of uncertain behavior of skin Ordered: 08/20/2024 [facility] Work Phone: Comment on above: Ordered: 08/20/2024 Tissue Pathology bio psy report SURGICAL PATHOLOGY Lab Routine Neoplasm of skin Ordered: 02/18/2025 [facility] Work Phone: Comment on above: Ordered: 02/18/2025 Urinalysis complete panel - Urine URINALYSIS, WITH MICROSCOPIC Lab Routine Gross hematuria 10/12/2023 4:[address] [facility] Work Phone: End: 01-19-2024 Us abdominal aorta real time screen study aaa US SCREENING FOR AAA Radiology Routine Screening for AAA (abdominal aortic aneurysm) 1 Occurrences starting 12/20/2022 until 01/19/2024 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 Work Phone: [facility] Immunizations Immunization Date Immunization Notes Care Provider Fa cili 11-05-2024 influenza, high dose seasonal, preservative-free In Nurse Work Phone: [facility] 11-05-2024 influenza virus vaccine, unspecified formulation Galindo Yuan MD Work Phone: [facility] 07-03-2024 respiratory syncytia l virus (RSV) vaccine, adjuvanted (AREXVY) Diane Bruce PA-C Work Phone: [facility] 06-20-2024 COVID-19 vaccine, ag e 12+ yr, season (PFIZER-BIONTECH) Ana Mckoy UNIVERSITY TUTOR.DENTAL FLOSS PACKER Work Phone: [facility] 12-20-2023 COVID-19 vaccine, ag e 12+ yr, season (PFIZER-BIONTECH) Juan Torres Work Phone: [facility] 09-05-2023 influenza (HD-IIV4) vaccine, age 65+ yr, high dose, quadrivalent, PF (FLUZONE HIGH-DOSE) Juantreva Degroot Work Phone: [facility] Work Phone: 09-05-2023 influenza virus vaccine, unspecified formulation Juan Torres Work Phone: [facility] 07-09-2023 COVID-19 vaccine, ag e 12+ yr, bivalent (PFIZER-BIONTECH) Ana Edwards UNIVERSITY TUTOR.DENTAL FLOSS PACKER Work Phone: [facility] 12-20-2022 COVID-19 booster vaccine, age 12+ yr, bivalent (PFIZER-BIONTECH) Galindo Yuan MD Work Phone: [facility] Work Phone: 08-30-2022 influenza, high-dose , quadrivalent vaccine (FLUZONE HIGH DOSE QUADRIVALENT) In Nurse Work Phone: [facility] Work Phone: 08-30-2022 influenza virus vaccine, unspecified formulation Galindo Yuan MD Work Phone: [facility] 06-19-2022 COVID-19 vaccine, ag e 12+ yr (PFIZER-BIONTECH - RAMIREZ TOP) Galindo Yuan MD Work Phone: [facility] Work Phone: 11-22-2021 COVID-19 vaccine, ag e 12+ yr (PFIZER-BIONTECH - PURPLE TOP) Rashaun Manning Jr., MD Work Phone: [facility] Work Phone: 10-17-2021 influenza, high dose seasonal, preservative-free Rashaun Manning Jr., MD Work Phone: [facility] Work Phone: 10-17-2021 influenza, high-dose , quadrivalent vaccine (FLUZONE HIGH DOSE QUADRIVALENT) Rashaun Manning Jr., MD Work Phone: [facility] 09-05-2021 influenza, injectabl e, quadrivalent, preservative free [facility] 09-05-2021 influenza, seasonal, injectable Rashaun Manning Jr., MD Work Phone: [facility] 02-02-2021 COVID-19 vaccine, ag e 12+ yr (PFIZER-BIONTECH - PURPLE TOP) Rashaun Manning Jr., MD Work Phone: [facility] Work Phone: 01-12-2021 COVID-19 vaccine, ag e 12+ yr (PFIZER-BIONTECH - PURPLE TOP) Rashaun Manning Jr., MD Work Phone: [facility] Work Phone: 08-18-2020 influenza (HD-IIV4) vaccine, age 65+ yr, high dose, quadrivalent, PF (FLUZONE HIGH-DOSE) Galindo Yuan MD Work Phone: [facility] 08-18-2020 influenza, high dose seasonal, preservative-free Rashaun Manning Jr., MD Work Phone: [facility] Work Phone: 04-06-2020 zoster vaccine recombinant Rashaun Manning Jr., MD Work Phone: [facility] Work Phone: 12-26-2019 zoster vaccine recombinant Rashaun Manning Jr., MD Work Phone: [facility] Work Phone: 09-08-2019 influenza, high dose seasonal, preservative-free Rashaun Manning Jr., MD Work Phone: [facility] Work Phone: 09-09-2018 influenza, high dose seasonal, preservative-free Rashaun Manning Jr., MD Work Phone: [facility] 09-15-2017 influenza, high dose seasonal, preservative-free Rashaun Manning Jr., MD Work Phone: [facility] 08-22-2016 influenza, injectabl e, quadrivalent, preservative free [facility] 08-22-2016 influenza, seasonal, injectable [facility] 08-21-2016 influenza, high dose seasonal, preservative-free Rashaun Manning Jr., MD Work Phone: [facility] 10-21-2015 pneumococcal conjuga te vaccine, 13 valent Rashaun Manning Jr., MD Work Phone: [facility] 08-11-2015 influenza, high dose seasonal, preservative-free Rashaun Manning Jr., MD Work Phone: [facility] 07-07-2015 tetanus and diphther ia toxoids, adsorbed, preservative free, for adult use (5 Lf of tetanus toxoid and 2 Lf of diphtheria toxoid) Rashaun Manning Jr., MD Work Phone: [facility] 11-02-2014 influenza, seasonal, injectable Rashaun Manning Jr., MD Work Phone: [facility] 10-14-2013 influenza virus vaccine, unspecified formulation Rashaun Manning Jr., MD Work Phone: [facility] 08-25-2012 influenza virus vaccine, unspecified formulation Rashaun Manning Jr., MD Work Phone: [facility] 08-28-2009 influenza virus vaccine, unspecified formulation Rashaun Manning Jr., MD Work Phone: [facility] 09-23-2008 influenza virus vaccine, unspecified formulation Rashaun Manning Jr., MD Work Phone: [facility] 09-24-2007 influenza virus vaccine, unspecified formulation Rashaun Manning Jr., MD Work Phone: [facility] 09-28-2006 influenza virus vaccine, unspecified formulation Rashaun Manning Jr., MD Work Phone: [facility] 09-26-2005 influenza virus vaccine, unspecified formulation Rashaun Manning Jr., MD Work Phone: [facility] Work Phone: 09-26-2005 pneumococcal polysaccharide vaccine, 23 valent Rashaun Manning Jr., MD Work Phone: [facility] Work Phone: 12-24-2003 diphtheria and tetan us toxoids, adsorbed for pediatric use Rashaun Manning Jr., MD Work Phone: [facility] Work Phone: 08-23-1993 hepatitis B vaccine, unspecified formulation Rashaun Manning Jr., MD Work Phone: [facility] Work Phone: 03-21-1993 hepatitis B vaccine, unspecified formulation Rashaun Manning Jr., MD Work Phone: [facility] Work Phone: 02-14-1993 hepatitis B vaccine, unspecified formulation Rashaun Manning Jr., MD Work Phone: [facility] Work Phone: Payers Date Payer Category Payer Self-pay [id number] 2021 Medicare AETNA MEDICARE A ETNA MEDICARE PPO [id number] 2021-Present [phone] [address] [place] [address] PPO [id number] 2021 Medicare AETNA MEDICARE A ETNA MEDICARE PPO [id number] 2021-Present [phone] [address] [place] [address] PPO [id number] 2021 Medicare (Managed Care) [id number]. [id number] 2015 Private Health Insurance [place] [id number] 1940 Unknown [id number] [facility] 1940 Unknown [id number] [facility] 1940 Unknown [id number] 245 Medicare [id number] Unknown [id number] Unknown [id number] 62 Unknown [id number] Social History Date Type Detail Facility Start: 08-08-2022 End: 10-12-2023 Assertion Unknown if ever smoked [facility] Work Phone: Start: 09-28-2011 End: 04-01-2025 Tobacco smoking status NHIS Never smoked tobacco [facility] Work Phone: Start: 05-01-2022 End: 08-03-2025 Alcohol intake Current non-drinker of alcohol (finding) [facility] Start: 1940 Sex Assigned At Not on file C [facility] Start: 04-21-2022 End: 04-10-2025 Exposure to SARS-CoV-2 (event) Not sure [facility] Start: 09-28-2011 End: 04-01-2025 Tobacco use and exposure Smokeless tobacco non-user [facility] Work Phone: Start: 04-29-2018 None [facility] Start: 06-24-2017 Spouse/ Signif icant Other [facility] Start: 11-09-2020 Non-smoker [facility] Start: 1940 Sex Assigned At Male W [facility] Start: 06-28-2023 End: 08-20-2024 History of Social function [facility] Work Phone: Start: 06-28-2023 End: 08-20-2024 Tobacco use panel [facility] Work Phone: Start: 10-20-2012 Adult Depression Screening Assessment 0 [facility] Work Phone: How often to you hav e a drink containing alcohol? Never [facility] Start: 01-25-2025 End: 02-04-2025 Exposure to SARS-CoV-2 (event) Unable to assess [facility] Start: 04-10-2025 Alcoholic beverage intake Lifetime non-drinker (finding) [facility] Work Phone: Medical Equipment Procedure Code Equipment Code Equipment Origin al Text Equipment Identifier Dates Anchr Sut 5.5mm Bcmps Crkscr - [id number] Start: 12-28-2014 Comment on above: Description: [employer] [place] [employer] Corkscrew FT, Vented, 5.5 x 14.7mm Anchr Sut Svllok Bcs Rcuf - [id number] Start: 12-28-2014 Comment on above: Description: [employer] [place] [employer] SwiveLock SP Self Punching 4.75 x 24.5mm [id number] Start: 11-11-2020 End: 06-28-2023 Comment on above: Test blood sugar(s) 2 times daily. Dx: Type 2 DM - Controlled E11.42 Insulin: No Test blood sugar(s) 1 times daily. Dx: Type 2 DM - Controlled E11.42 Insulin: No ([id number]) Uncoated shoulde r humeral stem prosthesis [id number] FDA Start: 02-01-2022 ([id number]) Stem-fixed humer al head prosthesis [id number] FDA Start: 02-01-2022 ([id number]) Stem-fixed humer al head prosthesis ()[id number] FDA Start: 02-01-2022 ([id number]) Stem-fixed humer al head prosthesis ()[id number] RM FDA Start: 02-01-2022 ([id number]) Reverse shoulder prosthesis head ()[id number] DD FDA Start: 02-01-2022 ([id number]) Total shoulder prosthesis ()[id number] FDA Start: 02-01-2022 ([id number]) Reverse shoulder prosthesis base plate ()[id number] FDA Start: 02-01-2022 ([id number]) Metallic reverse shoulder prosthesis cup ()[id number](10)[id number] FDA Start: 02-01-2022 Kt Nrv Stm Ld Pe rq 50x5 [id number] Start: 01-14-2025 Kt Nrv Stm Ld Pe rq 50x5 [id number] Start: 01-14-2025 Lead Kit, Blue, 70cm, W/ 5mm Spacing - Sna - [id number] ()[id number]([id number](21) NA, [id number] FDA Start: 04-10-2025 Lead Kit, Blue, 70cm, W/ 5mm Spacing - Sna - [id number] ()[id number]([id number](21) NA, [id number] FDA Start: 04-10-2025 [place] Kit, Neurostimulator, N300 Lead - Sna - [id number] ()[id number](21)N A, [id number] FDA Start: 04-10-2025 Ipg Kit ()[id number], [id number] FDA Start: 04-10-2025 Comment on above: Description: Per gucci l only jdr 04/14 Goals Date Patient Goal Desired Activity /State Personal health goal Personal health goal Functional Status Date Assessment Result Facility 06-23-2025 Total score [AUDIT-C] 0 06/23/20 7:42 AM EDT Leatha Doss MA [facility] 04-07-2017 Are you deaf, or do you have serious difficulty hearing No 04/07/2017 12:58 PM DANIELT Lisseth Bernabe RN No [facility] 04-07-2017 Are you blind, or do you have serious difficulty seeing, even when wearing glasses No 04/07/2017 12:58 PM EDT Lisseth Bernabe, VISH No [facility] 04-07-2017 Do you have serious difficulty walking or climbing stairs No 04/07/2017 12:58 PM EDT Lisseth Bernabe RN No [facility] 04-07-2017 Do you have difficul ty dressing or bathing No 04/07/2017 12:58 PM DANIELT Lisseth Bernabe, VISH No [facility] 04-07-2017 Because of a physica l, mental, or emotional condition, do you have difficulty doing errands alone such as visiting a physician's office or shopping No 04/07/2017 12:58 PM Lisseth Galvin, VISH No [facility] Mental Status Date Assessment Result Facility 10-12-2023 Cognitive function Level Of Cons ciousness Awake;Alert;Appropriate [facility] Work Phone: 06-24-2023 Cognitive function Awake;Alert;A ppropriate;Fol lows Commands [facility] Work Phone: 08-08-2022 Cognitive function Awake;Alert;A ppropriate;Fol lows Commands [facility] Work Phone: 04-07-2017 Because of a physica l, mental, or emotional condition, do you have serious difficulty concentrating, remembering, or making decisions No 04/07/2017 12:58 PM EDT Lisseth Bernabe RN No [facility] Clinical Notes 03-17-2020 to 09-21-2025 Patient InstructionsRashaun Manning Jr., MD - 08/03/2025 9:04 AM Galindo Alarcon MD - 06/23/2025 8:45 AM Galindo Alarcon MD - 06/23/2025 7:42 AM EDTPatient Instructions Note Date & Type Note Facility 09-21-2025 Note HNO ID: [id number] Author: JUAN TORRES, ? Service: ? Author Type: Physician Type: Progress Notes Filed: 09/21/2025 10:54 Note Text: Last saw pcp: 06/23/25 Subjective: Patient presents to clinic c/o painful toenails. They state that the nails are especially painful with shoe gear and pressure. Patient admits to being diabetic. He has hammertoes which lead to rubbing. He is interested in receiving a new order for diabetic shoes No other pedal complaints at this time. Patient states no change in medications or medical history since last visit. Objective: Patient presents to clinic ambulating in diabetic shoes Vasc: DP and PT pulses are palpable bilateral. CFT is less than 5 seconds bilateral. Skin temperature is warm to cool proximal to distal bilateral. There is mild edema or varicosities noted. Neuro: Protective sensation is intact to the foot and toes when tested with the 5.07 SWM bilateral. Vibratory sensation is absent at the hallux IPJ bilateral. The hallux is downgoing bilateral. Derm: Nails 1-5 right and 1-3,5 left are painful, discolored-yellow, thick, crumbly, dystrophic and with subungal debris. Skin is of normal turgor, texture and hair growth is absent bilateral. There are callus to tuft of b/l 3rd toe. No ulceration present Ortho: Muscle strength is 5/5 for all pedal groups tested. Ankle joint DF is decreased with the knee extended with no pain or crepitus noted. 1st MPJ ROM is decreased bilateral. Rigid hammertoes are present to b/l feet Assessment: (B35.1) Onychomycosis (primary encounter diagnosis) (M79.674) Pain in toe of right foot (M79.675) Pain in toe of left foot (E11.49) Other diabetic neurological complication associated with type 2 diabetes mellitus (HCC) (L85.9) Hyperkeratosis (M20.41, M20.42) Hammer toes of both feet Plan: Patient was seen and evaluated. Nails 1-5 right and 1-3,5 left were debrided in length and thickness. Callus reduced with dremmel to b/l feet Discussed hammertoes and the presence of callus and the history of diabetic neuropathy. Due to these reasons, diabetic shoes order. Patient was instructed on the continued importance of diabetic foot care along with proper diet and keeping their blood sugar under control to prevent complications. Patient is to RTC in 3-4 months. Juan Torres DPM [facility] 09-21-2025 Note HNO ID: [id number] Author: DIANE SAUCEDO RN Service: ? Author Type: Registered Nurse Type: Progress Notes Filed: 09/21/2025 10:54 Note Text: Patient presents with: Left Foot - Established Patient, Follow Up, Diabetic Foot Care Right Foot - Established Patient, Follow Up, Diabetic Foot Care Patient presents for follow up diabetic foot/nail care. Was started on Loprox at last visit. Hx of neuropathy. Last HA1c 5.9 on 06/23/25 CRISTIN 06/16/25 [facility] 09-09-2025 Note HNO ID: [id number] Author: RUTH PERLA DO Service: ? Author Type: Physician Type: Progress Notes Filed: 09/09/2025 15:15 Note Text: Established Patient Visit Last Visit Date: 02/18/2025 CC: FBSE waist up (per patient)-Declines Full body skin exam HPI: 85 year old male. Today's concerns are: 1) Skin lesions Location: L forearm Duration: ~3 months Symptoms: raised, bleeds Current treatment: none Past treatment: none 2) Skin lesions Location: temples Duration: ~3 months Symptoms: raised, bleeds Current treatment: none Past treatment: none Past Derm History: Personal history of melanoma: No Family history of melanoma (1st degree relative): Yes: Father, brothers, maternal uncle History of atypical nevi: No, Sebaceous adenoma L glabella Aug 2024 Personal history of NMSC: Yes: BCC R superior forehead 03/13-Moh's, BCC left jain s/p Mohs 03/26/2024, Left mid cheek s/p MOHS 04/11/2023, 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 Skin as above. Physical Exam: Gen: AANDOx3, well appearing Skin exam performed including scalp, face, neck, chest, abdomen, back, arms, hands-Declines lower body skin exam. Exam with noted findings of: -Scattered normal appearing brown macules and papules with reassuring features on dermoscopy -Trunk: scattered small red papules -Face, neck, trunk, UE with scattered polk-brown macules in sun-exposed distribution -Trunk, UE, LE with scattered warty brown stuck-on papules -Well healed and appropriated scars, no evidence of recurrence -5 pink scaly rough patches on the L forearm Assessment/Plan: ASSESSMENT/PLAN: 1. Skin exam, screening for cancer - ICD9: V76.43, ICD10: Z12.83 (primary diagnosis) -The ABCD's of melanoma were discussed. The patient is to perform monthly self exams and follow-up in dermatology for skin exams every 6 months. If any new lesions then the patient shall return sooner. Recommended SPF of 30 or greater. 2. Hx of nonmelanoma skin cancer - ICD9: V10.83, ICD10: Z85.828 -No evidence of recurrence at this time. Importance of monthly self skin checks emphasized. Recommend sun protection/avoidance, including hats and protective clothing, as well as sunscreen >=spf 30 qd. 3. Actinic keratosis - ICD9: 702.0, ICD10: L57.0 -Discussed premalignant etiology with low rate of development into skin cancer. Treatments include cyrotherapy, PDT, topical effudex. Recommended daily of use SPF 30 or greater -Cryotherapy SE/Risks discussed: The risks, benefits, indications, alternatives, and complications were discussed, and informed consent was obtained. Specifically, the risks of permanent scar, loss or darkening of skin color, blister and recurrence of lesion were discussed. Patient verbalized understanding and wished to proceed. Verbal consent was obtained. - See procedure notes. 4. Multiple benign nevi - ICD9: 216.9, ICD10: D22.9 -Explanation of these lesions were dicussed. Benign reassurance was given. -If lesion should change, grow, darken, bleed, etc then discussed with patient to call and return to the office. 5. Seborrheic keratosis - ICD9: 702.19, ICD10: L82.1 -Explanation of these lesions were dicussed. Benign reassurance was given. 6. Lentigines - ICD9: 709.09, ICD10: L81.4 -Explanation of these lesions were dicussed. Benign reassurance was given. 7. 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 Benign reassurance was given. Procedures: Procedure Note - Benign/Pre-Malignant Lesion(s) - Lesion(s) x5 AK's was treated with cryotherapy x 2 cycles x 10 sec/cycle with liquid nitrogen via cryostat spray device. The risks, benefits, indications, alternatives, and complications were discussed, and informed consent was obtained. Specifically, the risks of permanent scar, loss or darkening of skin color, blister and recurrence of lesion were discussed. Patient verbalized understanding and wished to proceed. Verbal consent was obtained. The patient tolerated the procedure well without complications. Wound care instructions were reviewed and given to patient. RTC 6 months FBSE. The patient is seen and examined by Dr. Perla and the following reflects his/her service. Scribed by Deejay Rivas RN. I agree with the Chief Complaint, ROS, and Past Histories independently gathered by the clinical program support assistant and the remaining scribed note accurately describes my personal service to the patient. Ruth Perla, DO [facility] 08-03-2025 Instructions Rashaun Manning Jr., MD - 08/03/2025 9:17 AM EDT Your most recent body mass index (BMI) that we have on record is 31.95 kg/m2. Obstructive sleep apnea (ETHAN) worsens with an increase in weight; reduction in weight may improve or resolve your ETHAN. If you are not already seeking treatment, there are resources available at the [facility] such as a nutrition consultation or referral to weight management programs at our [facility]. Please let us know if we can assist with a referral. documented in this encounter [facility] 08-03-2025 Note HNO ID: [id number] Author: RASHAUN MANNING JR, MD Service: ? Author Type: Physician Type: Progress Notes Filed: 08/03/2025 10:23 Note Text: ESTABLISHED PATIENT VISIT CHIEF COMPLAINT: Follow Up HISTORY OF PRESENT ILLNESS: Jg Chahal is a 85 year old male, BMI 31.95 kg/m2 with a PMH significant for and per last office visit of 07/28/24: 1. ETHAN on CPAP - ICD9: 327.23, ICD10: G47.33 (primary diagnosis) Doing well on PAP. No complaints. Perceived benefit. Subjective and objective compliance confirmed. No changes to pressures today. Dry mouth is only issue and explained to pt how to adjust both humidifier and heated tubing settings including video demonstration while in office. Reminded pt to clean and replace equipment regularly and avoid ozone dumper mold cleaner. Advised pt not to drive or operate heavy machinery if sleepy. 2. Parasomnia, unspecified type - ICD9: 307.47, ICD10: G47.50 Stable and asx. Continue melatonin 3mg nightly (if needed can increase to 5mg (limited availability of 3mg tabs)). 3. Class 1 obesity with body mass index (BMI) of 32.0 to 32.9 in adult, unspecified obesity type, unspecified whether serious comorbidity present - ICD9: 278.00, V85.32, ICD10: E66.9, Z68.32 Enocuraged weight loss. PAP data download up to 08/02/25 shows 30/30 nights used for avg of 7 hours and 41 minutes.Set at 5-12 cmH2O with ERP 3. AHI is 0.4. 95% leak of 33.5 LPM. 95% pressure of 11.6 cmH2O. Patient continues to remain compliant with PAP. No complaints. No mask issues. Getting replacements through DME as needed. No pressure issues. Pt aware of mask leak but states he does not tighten it too tight as would cause headache. Also thinks he is using too small of a nasal piece but has a large one and will replace it. Note pt device last replaced in 2023. No other sleep issues. Still taking melatonin at night with no parasomnias. REVIEW OF SYSTEMS GENERAL:No weight loss, malaise or fevers. HEENT:Negative for frequent or significant headaches, No changes in hearing or vision, no nose bleeds or other nasal problems NECK:Negative for lumps, goiter, pain and significant neck swelling RESPIRATORY: Negative for cough, wheezing or shortness of breath. CARDIOVASCULAR: Negative for chest pain, or palpitations. GASTROINTESTINAL: Negative for abdominal discomfort, blood in stools or black stools or change in bowel habits GENITOURINARY: No history of dysuria, frequency or incontinence MUSCULOSKELETAL: Does have spinal stimulator since last visit - has improved back pain with ambulation. However, chronic knee pain unrelated. NEUROLOGIC:Negative for focal numbness or weakness, headaches and dizziness or syncope, vision changes, speech/languag changes - EXCEPT that as per HPI above. SKIN:Negative for lesions, rash, and itching. LAB/IMAGING: Those performed since patient's last visit have been reviewed. WBC (k/uL) Date Value 01/01/2024 6.26 RBC (m/uL) Date Value 01/01/2024 4.62 Hemoglobin (g/dL) Date Value 01/01/2024 14.1 Hematocrit (%) Date Value 01/01/2024 42.0 MCV (fL) Date Value 01/01/2024 90.9 MCH (pg) Date Value 01/01/2024 30.5 MCHC (g/dL) Date Value 01/01/2024 33.6 RDW-CV (%) Date Value 01/01/2024 14.7 Platelet Count (k/uL) Date Value 01/01/2024 217 MPV (fL) Date Value 01/01/2024 10.2 Glucose (mg/dL) Date Value 03/26/2025 96 BUN (mg/dL) Date Value 03/26/2025 15 Creatinine (mg/dL) Date Value 03/26/2025 1.23 (H) Sodium (mmol/L) Date Value 03/26/2025 140 Potassium (mmol/L) Date Value 03/26/2025 4.5 Chloride (mmol/L) Date Value 03/26/2025 104 CO2 (mmol/L) Date Value 03/26/2025 24 Protein, Total (g/dL) Date Value 03/26/2025 7.0 Albumin (g/dL) Date Value 03/26/2025 4.3 Calcium, Total (mg/dL) Date Value 03/26/2025 9.8 Alkaline Phosphatase (U/L) Date Value 03/26/2025 136 (H) Bilirubin, Total (mg/dL) Date Value 03/26/2025 1.0 AST (U/L) Date Value 03/26/2025 16 ALT (U/L) Date Value 03/26/2025 13 Rheumatoid Factor (IU/mL) Date Value 06/21/2005 8 MEDICATIONS: nitroglycerin sublingual (NITROSTAT) 0.4 mg SL tablet Dissolve 1 tablet under the tongue every 5 minutes as needed for chest pain. baclofen 10 mg tablet Take 1 tablet by mouth at bedtime as needed (leg cramps.). losartan (COZAAR) 50 mg tablet Take 1 tablet by mouth once daily. metoprolol succinate ER (TOPROL XL) 25 mg 24 hr tablet Take 1 tablet by mouth once daily. apixaban (ELIQUIS) 5 mg tab(s) Take 1 tablet by mouth two times a day. amLODIPine (NORVASC) 2.5 mg tablet Take 1 tablet by mouth once daily. dofetilide (TIKOSYN) 250 mcg capsule Take 1 capsule by mouth two times a day. pantoprazole DR (PROTONIX) 40 mg tablet TAKE ONE TABLET BY MOUTH DAILY ON EMPTY STOMACH ONE-HALF HOUR BEFORE BREAKFAST atorvastatin (LIPITOR) 40 mg tablet Take 1 tablet by mouth once daily. clotrimazole-betamethasone (LOTRISONE) cream Apply to (more content not included)... [facility] 08-03-2025 History of Present illness Narrative ESTABLISHED PATIENT VISIT CHIEF COMPLAINT: Follow Up HISTORY OF PRESENT ILLNESS: Jg Chahal is a 85 year old male, BMI 31.95 kg/m2 with a PMH significant for and per last office visit of 07/28/24: 1. ETHAN on CPAP - ICD9: 327.23, ICD10: G47.33 (primary diagnosis) Doing well on PAP. No complaints. Perceived benefit. Subjective and objective compliance confirmed. No changes to pressures today. Dry mouth is only issue and explained to pt how to adjust both humidifier and heated tubing settings including video demonstration while in office. Reminded pt to clean and replace equipment regularly and avoid ozone dumper mold cleaner. Advised pt not to drive or operate heavy machinery if sleepy. 2. Parasomnia, unspecified type - ICD9: 307.47, ICD10: G47.50 Stable and asx. Continue melatonin 3mg nightly (if needed can increase to 5mg (limited availability of 3mg tabs)). 3. Class 1 obesity with body mass index (BMI) of 32.0 to 32.9 in adult, unspecified obesity type, unspecified whether serious comorbidity present - ICD9: 278.00, V85.32, ICD10: E66.9, Z68.32 Enocuraged weight loss. PAP data download up to 08/02/25 shows 30/30 nights used for avg of 7 hours and 41 minutes.Set at 5-12 cmH2O with ERP 3. AHI is 0.4. 95% leak of 33.5 LPM. 95% pressure of 11.6 cmH2O. Patient continues to remain compliant with PAP. No complaints. No mask issues. Getting replacements through DME as needed. No pressure issues. Pt aware of mask leak but states he does not tighten it too tight as would cause headache. Also thinks he is using too small of a nasal piece but has a large one and will replace it. Note pt device last replaced in 2023. No other sleep issues. Still taking melatonin at night with no parasomnias. REVIEW OF SYSTEMS GENERAL:No weight loss, malaise or fevers. HEENT:Negative for frequent or significant headaches, No changes in hearing or vision, no nose bleeds or other nasal problems NECK:Negative for lumps, goiter, pain and significant neck swelling RESPIRATORY: Negative for cough, wheezing or shortness of breath. CARDIOVASCULAR: Negative for chest pain, or palpitations. GASTROINTESTINAL: Negative for abdominal discomfort, blood in stools or black stools or change in bowel habits GENITOURINARY: No history of dysuria, frequency or incontinence MUSCULOSKELETAL: Does have spinal stimulator since last visit - has improved back pain with ambulation. However, chronic knee pain unrelated. NEUROLOGIC:Negative for focal numbness or weakness, headaches and dizziness or syncope, vision changes, speech/languag changes - EXCEPT that as per HPI above. SKIN:Negative for lesions, rash, and itching. LAB/IMAGING: Those performed since patient's last visit have been reviewed. WBC (k/uL) Date Value 01/01/2024 6.26 RBC (m/uL) Date Value 01/01/2024 4.62 Hemoglobin (g/dL) Date Value 01/01/2024 14.1 Hematocrit (%) Date Value 01/01/2024 42.0 MCV (fL) Date Value 01/01/2024 90.9 MCH (pg) Date Value 01/01/2024 30.5 MCHC (g/dL) Date Value 01/01/2024 33.6 RDW-CV (%) Date Value 01/01/2024 14.7 Platelet Count (k/uL) Date Value 01/01/2024 217 MPV (fL) Date Value 01/01/2024 10.2 Glucose (mg/dL) Date Value 03/26/2025 96 BUN (mg/dL) Date Value 03/26/2025 15 Creatinine (mg/dL) Date Value 03/26/2025 1.23 (H) Sodium (mmol/L) Date Value 03/26/2025 140 Potassium (mmol/L) Date Value 03/26/2025 4.5 Chloride (mmol/L) Date Value 03/26/2025 104 CO2 (mmol/L) Date Value 03/26/2025 24 Protein, Total (g/dL) Date Value 03/26/2025 7.0 Albumin (g/dL) Date Value 03/26/2025 4.3 Calcium, Total (mg/dL) Date Value 03/26/2025 9.8 Alkaline Phosphatase (U/L) Date Value 03/26/2025 136 (H) Bilirubin, Total (mg/dL) Date Value 03/26/2025 1.0 AST (U/L) Date Value 03/26/2025 16 ALT (U/L) Date Value 03/26/2025 13 Rheumatoid Factor (IU/mL) Date Value 06/21/2005 8 MEDICATIONS: nitroglycerin sublingual (NITROSTAT) 0.4 mg SL tablet Dissolve 1 tablet under the tongue every 5 minutes as needed for chest pain. baclofen 10 mg tablet Take 1 tablet by mouth at bedtime as needed (leg cramps.). losartan (COZAAR) 50 mg tablet Take 1 tablet by mouth once daily. metoprolol succinate ER (TOPROL XL) 25 mg 24 hr tablet Take 1 tablet by mouth once daily. apixaban (ELIQUIS) 5 mg tab(s) Take 1 tablet by mouth two times a day. amLODIPine (NORVASC) 2.5 mg tablet Take 1 tablet by mouth once daily. dofetilide (TIKOSYN) 250 mcg capsule Take 1 capsule by mouth two times a day. pantoprazole DR (PROTONIX) 40 mg tablet TAKE ONE TABLET BY MOUTH DAILY ON EMPTY STOMACH ONE-HALF HOUR BEFORE BREAKFAST atorvastatin (LIPITOR) 40 mg tablet Take 1 tablet by mouth once daily. clotrimazole-betamethasone (LOTRISONE) cream Apply to affected area twice daily. APPLY TO AFFECTED AREA blood sugar diagnostic (BLOOD GLUCOSE TEST) test strip Test blood sugar(s) 1 times daily. Dx: Type 2 DM - Controlled E11.42 Insulin: No TENS unit and electrodes cmpk Us as instructed. melatonin 3 mg tablet Take 1 tablet by mouth daily at bedtime. Lancets lancets Test blood sugar(s) 1 times daily. Dx: Type 2 DM - Controlled E11.42 Insulin: No CPAP Patient requesting new DME. Currently has a PAP device (2016 -- may be due for new device). Please fit with a Wisp (currently with Dream wisp and causing discomfort on top of head). Lif[employer] supplies. Amoxicillin 500 mg tablet Take 4 tablets by mouth as needed (1 hour before the procedure). docusate sodium (COLACE) 100 mg capsule AT BEDTIME magnesium oxide (MAG-OX) 400 mg tablet Take 1 tablet by mouth once daily. Cholecalciferol, Vitamin D3, 1,000 unit cap Take 1 capsule by mouth once daily. vitamin b complex (B COMPLETE) ORAL Tab Take 1 tablet by mouth once daily. 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 Dr. Tee Clemons, Dermatology Basal cell carcinoma (BCC) of skin of face Mohs 04/2021 Cervical spondylosis 09/25/2022 Coronary atherosclerosis of unspecified type of vessel, [place] or graft 01/22/2006 moderate Diverticulosis of colon (without mention of hemorrhage) 07/18/2005 Dyslipidemia Dyspepsia and other specified disorders of function of stomach 07/18/2005 Chronic gastritis, Dyspepsia. Gastric ulcer, unspecified as acute or chronic, without mention of hemorrhage or perforation, with obstruction Generalized osteoarthrosis, unspecified site 07/18/2005 H. pylori infection 05/30/2011 HTN (hypertension) Hypertensive 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 4 chronic kidney disease, or unspecified chronic kidney disease 07/18/2005 Impaired fasting glucose 07/18/2005 Lipoprotein deficiencies 07/18/2005 Low HDL. Lumbago 08/26/2008 Dr. Odin Coon, [facility]. Rotator cuff tear, right 10/21/2012 Salmonella enteritis 08/2010 Type II or unspecified type diabetes mellitus without mention of complication, not stated as uncontrolled 07/08/2007 Unspecified essential hypertension 07/18/2005 FAMILY HISTORY Problem Relation Age of Onset other (CVA) Mother d 89 stroke other (HTN) Mother other (CHF) Mother Ischemic Heart Disease Father Skin Cancer Father bcc other (Lymphoma) Father d 65 lymphoma Arthritis Brother Heart Failure Brother Arrhythmia Brother atrial fib Parkinson s Disease Brother Stroke Brother Melanoma Brother Diabetes Maternal Grandmother Cancer Daughter ovarian Melanoma Other maternal uncle SOCIAL HISTORY SOCIAL HISTORY[1] PHYSICAL EXAMINATION BP 116/71 Pulse 73 Resp 16 Wt 95.6 kg (210 lb 12.8 oz) SpO2 96% BMI 31.95 kg/m GENERAL EXAM: General appearance: NAD, pleasant. HEENT: NC/AT, nasal congestion absent, no oral lesions, membranes moist. NECK: ROM nml. Lungs: CTA bilaterally. CV: RRR nl S1, S2. No carotid bruits. Extr: No cyanosis, clubbing or edema. Skin: Cool to touch. NEUROLOGICAL EXAM: General: Awake, alert, oriented x3 (person,place,time), fluent, no dysarthria; comprehension, naming, repetition intact. CN: PERRL, EOMI and without nystagmus, VFF to confrontation, facial sensation and strength are normal and symmetric, hearing is intact to finger rub bilaterally, palate and tongue movements are intact and symmetric. SCM and trapezius strength normal. Motor: Normal tone, bulk and strength (5/5) bilaterally (throughout extremities x4). Coordination: FNF, LUKASZ, HTS intact. No tremors. Sensation: Light touch intact throughout. No evidence of neglect. Gait: Stable with normal stride and arm swing. Assessment and Plan: ASSESSMENT/PLAN: 1. ETHAN on CPAP - ICD9: 327.23, ICD10: G47.33 (primary diagnosis) 2. Class 1 obesity with body mass index (BMI) of 31.0 to 31.9 in adult, unspecified obesity type, unspecified whether serious comorbidity present - ICD9: 278.00, V85.31, ICD10: E66.811, Z68.31 Patient doing well on PAP. Compliance confirmed by history and objective data of PAP download. Perceived benefit with PAP therapy. No complaints except mask leak but pt aware of problem and will adjust mask as above (needs to use large nasal piece). Encouraged continued compliance. Reminded to clean and replace equipment regularly. Advised pt not to drive or operate heavy machinery if sleepy. 3. Parasomnia, unspecified type - ICD9: 307.47, ICD10: G47.50 Resolved since started on melatonin - no side effects. Pt will continue melatonin which he purchases OTC. Follow up 1 year or sooner prn. Rashaun Manning MD I spent a total of 20 minutes on the date of the service which included preparing to see the patient, [id number] patient care, completing clinical documentation, obtaining and/or reviewing separately obtained history, performing a medically appropriate examination, counseling and educating the patient/family/caregiver, independently interpreting results (not separately reported), and communicating results to the patient/family/caregiver. [1] Social History Tobacco Use Smoking status: Never Smokeless tobacco: Never Vaping Use Vaping status: Never Used Substance Use Topics Alcohol use: No Drug use: No documented in this encounter [facility] 06-25-2025 Note HNO ID: [id number] Author: JD ALONSO RT(R) Service: ? Author Type: Client Account Specialist Type: Progress Notes Filed: 06/25/2025 09:29 Note Text: Radiology Service Progress Note PATIENT NAME: Jg Chahal DATE OF SERVICE: June 25, 2025 TIME: 9:29 AM PATIENT IDENTITY VERIFICATION COMPLETED USING TWO (2) IDENTIFIERS: Name and Date of confirmed by patient verbally. FALL SCREENING: Has the patient had 2 falls in the last year or 1 fall with injury or currently using an Ambulatory Assistive Device (Walker, Cane, Wheelchair, Crutches, etc.)? Yes, Patient High Risk for Falls What interventions were put in place to prevent falls during this visit? Increased Observations by Caregivers PATIENT GENDER DATA: Assigned male at PATIENT RELEVANT IMPLANT DATA REVIEWED: Yes PATIENT PRESENTS WITH AN IMPLANTABLE OR ATTACHED LIBRARY SPECIALIST: No RADIOLOGY DEPARTMENT: General X-ray: Exam(s) Completed: Chest X-Ray PERIPHERAL IV DATA: Not applicable SIGNED BY: RT Abdoulaye(R) June 25, 2025 9:29 AM [facility] 06-23-2025 Note HNO ID: [id number] Author: GALINDO YUAN MD Service: ? Author Type: Physician Type: Progress Notes Filed: 06/23/2025 08:59 Note Text: Subjective Jg Chahal is a 84 year old male. He was doing reasonably well. Physical therapy recommended HEP for his leg weakness and this was improved. Diabetes was diet controlled. Chronic kidney disease was stable. Hyperlipidemia was controlled. Chronic pains were stable and better s/p implanted spinal cord stimulator. 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 Obesity, Class I, Bmi 30-34.9 Sleep Terrors Oropharyngeal Dysphagia Cervical Spondylosis Stable Angina Nocturnal Leg Cramps Primary Hypertension Status Post Insertion of Spinal Cord Stimulator Lumbar Radiculopathy Failed Back Syndrome Weakness of Both Legs PAST SURGICAL HISTORY Procedure Laterality Date ARTHROSCOPY KNEE DIAGNOSTIC W/WO SYNOVIAL BX SPX 11/2003 Arthroscopy, knee ARTHRP ACETBLR/PROX FEM PROSTC AGRFT/ALGRFT Right 08/07/2016 Hip replacement, total ARTHRP KNE CONDYLEANDPLATU MEDIALANDLAT COMPARTMENTS 2001 Knee replacement, total, left ARTHRP KNE CONDYLEANDPLATU MEDIALANDLAT COMPARTMENTS Left 10/01/2017 revision L TKA, [facility] CC ABLATION SVT 04/06/2017 EP study, ablation for A.fib. COLONOSCOPY FLX DX W/COLLJ SPEC WHEN PFRMD 12/24/2002 Colonoscopy COLONOSCOPY FLX DX W/COLLJ SPEC WHEN PFRMD 05/11/2011 Colonoscopy ESOPHAGOGASTRODUODENOSCOPY TRANSORAL DIAGNOSTIC 03/18/2007 EGD ESOPHAGOGASTRODUODENOSCOPY TRANSORAL DIAGNOSTIC 06/11/2007 EGD ESOPHAGOGASTRODUODENOSCOPY TRANSORAL DIAGNOSTIC 05/11/2011 EGD [id number] RENE VELEZ SPINAL CORD STIMULATOR 04/10/2025 Perc. Thoracic Spinal Cord Stim. Generator and electrode implant. LOPEZ W/O FACETEC FORAMOT/DSC 1/2 VRT SGM CRV 2000 Laminectomy, cervical LAMINECTOMY W/O FFD > 2 VERT SEG LUMBAR 11/05/2008 lumbar fusion LAMINOTOMY (HEMILAMINECTOMY), WITH DECOMPRESSION OF NERVE ROOT(S) Bilateral 05/02/2019 Revision hemilaminectomies L2,L3,L4-L5 LEFT HEART CATH,PERCUTANEOUS 01/22/2006 Cardiac cath, L heart LEFT HEART CATH,PERCUTANEOUS 05/31/2011 Cardiac cath, L heart LEFT HEART CATH,PERCUTANEOUS 11/27/2011 Cardiac cath, L heart LEFT HEART CATH,PERCUTANEOUS 11/27/2013 Cardiac cath, L heart NEUROPLASTY AND/TRANSPOS MEDIAN NRV CARPAL TUNNE 1995 Carpal tunnel decomp R/L OPEN REPAIR OF ROTATOR CUFF ACUTE 1995 Rotator cuff repair, bilateral OPEN REPAIR OF ROTATOR CUFF CHRONIC Left 12/28/2014 Left shoulder open rotator cuff repair and Sub Ac decompression SHX TOTAL SHOULDER REVERSE Left 02/01/2022 Left reverse total shoulder arthroplasty TRANSCATH STENT INIT VESSEL,PERCUT 08/26/2009 Transcath stent init vessel percut TRANSCATH STENT INIT VESSEL,PERCUT 11/16/2010 Transcath stent init vessel percut Current Outpatient Medications Medication Sig ciclopirox (LOPROX) 0.77 % cream Apply 1 application to affected area once daily. nitroglycerin sublingual (NITROSTAT) 0.4 mg SL tablet Dissolve 1 tablet under the tongue every 5 minutes as needed for chest pain. baclofen 10 mg tablet Take 1 tablet by mouth at bedtime as needed (leg cramps.). losartan (COZAAR) 50 mg tablet Take 1 tablet by mouth once daily. metoprolol succinate ER (TOPROL XL) 25 mg 24 hr tablet Take 1 tablet by mouth once daily. apixaban (ELIQUIS) 5 mg tab(s) Take 1 tablet by mouth two times a day. amLODIPine (NORVASC) 2.5 mg tablet Take 1 tablet by mouth once daily. dofetilide (TIKOSYN) 250 mcg capsule Take 1 capsule by mouth two times a day. pantoprazole DR (PROTONIX) 40 mg tablet TAKE ONE TABLET BY MOUTH DAILY ON EMPTY STOMACH ONE-HALF HOUR BEFORE BREAKFAST atorvastatin (LIPITOR) 40 mg tablet Take 1 tablet by mouth once daily. clotrimazole-betamethasone (LOTRISONE) cream Apply to affected area twice daily. APPLY TO AFFECTED AREA blood sugar diagnostic (BLOOD GLUCOSE TEST) test strip Test blood sugar(s) 1 times daily. Dx: Type 2 DM - Controlled E11.42 Insulin: No TENS unit and electrodes cmpk Us as instructed. melatonin 3 mg tablet Take 1 tablet by mouth daily at bedtime. Lancets lancets Test blood sugar(s) 1 times daily. Dx: Type 2 DM - Controlled E11.42 Insulin: No CPAP Patient requesting new DME. Currently has a PAP device (2015 -- may be due for new device). Please fit with a Wisp (currently with Dream wisp (more content not included)... [facility] 06-23-2025 History of Present illness Narrative Subjective Jg Chahal is a 84 year old male. He was doing reasonably well. Physical therapy recommended HEP for his leg weakness and this was improved. Diabetes was diet controlled. Chronic kidney disease was stable. Hyperlipidemia was controlled. Chronic pains were stable and better s/p implanted spinal cord stimulator. 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 Obesity, Class I, Bmi 30-34.9 Sleep Terrors Oropharyngeal Dysphagia Cervical Spondylosis Stable Angina Nocturnal Leg Cramps Primary Hypertension Status Post Insertion of Spinal Cord Stimulator Lumbar Radiculopathy Failed Back Syndrome Weakness of Both Legs PAST SURGICAL HISTORY Procedure Laterality Date ARTHROSCOPY KNEE DIAGNOSTIC W/WO SYNOVIAL BX SPX 11/2003 Arthroscopy, knee ARTHRP ACETBLR/PROX FEM PROSTC AGRFT/ALGRFT Right 08/07/2016 Hip replacement, total ARTHRP KNE CONDYLE&PLATU MEDIAL&LAT COMPARTMENTS 2002 Knee replacement, total, left ARTHRP KNE CONDYLE&PLATU MEDIAL&LAT COMPARTMENTS Left 10/01/2017 revision L TKA, [facility] CC ABLATION SVT 04/06/2017 EP study, ablation for A.fib. COLONOSCOPY FLX DX W/COLLJ SPEC WHEN PFRMD 12/24/2002 Colonoscopy COLONOSCOPY FLX DX W/COLLJ SPEC WHEN PFRMD 05/11/2011 Colonoscopy ESOPHAGOGASTRODUODENOSCOPY TRANSORAL DIAGNOSTIC 03/18/2007 EGD ESOPHAGOGASTRODUODENOSCOPY TRANSORAL DIAGNOSTIC 06/11/2007 EGD ESOPHAGOGASTRODUODENOSCOPY TRANSORAL DIAGNOSTIC 05/11/2011 EGD [id number] RENE VELEZ SPINAL CORD STIMULATOR 04/10/2025 Perc. Thoracic Spinal Cord Stim. Generator and electrode implant. LOPEZ W/O FACETEC FORAMOT/DSC 1/2 VRT SGM CRV 2000 Laminectomy, cervical LAMINECTOMY W/O FFD > 2 VERT SEG LUMBAR 11/05/2008 lumbar fusion LAMINOTOMY (HEMILAMINECTOMY), WITH DECOMPRESSION OF NERVE ROOT(S) Bilateral 05/02/2019 Revision hemilaminectomies L2,L3,L4-L5 LEFT HEART CATH,PERCUTANEOUS 01/22/2006 Cardiac cath, L heart LEFT HEART CATH,PERCUTANEOUS 05/31/2011 Cardiac cath, L heart LEFT HEART CATH,PERCUTANEOUS 11/27/2011 Cardiac cath, L heart LEFT HEART CATH,PERCUTANEOUS 11/27/2013 Cardiac cath, L heart NEUROPLASTY &/TRANSPOS MEDIAN NRV CARPAL TUNNE 1995 Carpal tunnel decomp R/L OPEN REPAIR OF ROTATOR CUFF ACUTE 1996 Rotator cuff repair, bilateral OPEN REPAIR OF ROTATOR CUFF CHRONIC Left 12/28/2014 Left shoulder open rotator cuff repair and Sub Ac decompression SHX TOTAL SHOULDER REVERSE Left 02/01/2022 Left reverse total shoulder arthroplasty TRANSCATH STENT INIT VESSEL,PERCUT 08/26/2009 Transcath stent init vessel percut TRANSCATH STENT INIT VESSEL,PERCUT 11/16/2010 Transcath stent init vessel percut Current Outpatient Medications Medication Sig ciclopirox (LOPROX) 0.77 % cream Apply 1 application to affected area once daily. nitroglycerin sublingual (NITROSTAT) 0.4 mg SL tablet Dissolve 1 tablet under the tongue every 5 minutes as needed for chest pain. baclofen 10 mg tablet Take 1 tablet by mouth at bedtime as needed (leg cramps.). losartan (COZAAR) 50 mg tablet Take 1 tablet by mouth once daily. metoprolol succinate ER (TOPROL XL) 25 mg 24 hr tablet Take 1 tablet by mouth once daily. apixaban (ELIQUIS) 5 mg tab(s) Take 1 tablet by mouth two times a day. amLODIPine (NORVASC) 2.5 mg tablet Take 1 tablet by mouth once daily. dofetilide (TIKOSYN) 250 mcg capsule Take 1 capsule by mouth two times a day. pantoprazole DR (PROTONIX) 40 mg tablet TAKE ONE TABLET BY MOUTH DAILY ON EMPTY STOMACH ONE-HALF HOUR BEFORE BREAKFAST atorvastatin (LIPITOR) 40 mg tablet Take 1 tablet by mouth once daily. clotrimazole-betamethasone (LOTRISONE) cream Apply to affected area twice daily. APPLY TO AFFECTED AREA blood sugar diagnostic (BLOOD GLUCOSE TEST) test strip Test blood sugar(s) 1 times daily. Dx: Type 2 DM - Controlled E11.42 Insulin: No TENS unit and electrodes cmpk Us as instructed. melatonin 3 mg tablet Take 1 tablet by mouth daily at bedtime. Lancets lancets Test blood sugar(s) 1 times daily. Dx: Type 2 DM - Controlled E11.42 Insulin: No CPAP Patient requesting new DME. Currently has a PAP device (2016 -- may be due for new device). Please fit with a Wisp (currently with Dream wisp and causing discomfort on top of head). Lifetime supplies. Amoxicillin 500 mg tablet Take 4 tablets by mouth as needed (1 hour before the procedure). docusate sodium (COLACE) 100 mg capsule AT BEDTIME magnesium oxide (MAG-OX) 400 mg tablet Take 1 tablet by mouth once daily. Cholecalciferol, Vitamin D3, 1,000 unit cap Take 1 capsule by mouth once daily. vitamin b complex (B COMPLETE) ORAL Tab Take 1 tablet by mouth once daily. No current facility-administered medications for this visit. Review of Systems Constitutional: Negative for fatigue and unexpected weight change. Respiratory: Negative for cough, shortness of breath and wheezing. Cardiovascular: Negative for chest pain, palpitations and leg swelling. Gastrointestinal: Negative. Genitourinary: Negative for difficulty urinating. Musculoskeletal: Positive for arthralgias and gait problem. Neurological: Negative for dizziness. Objective BP 118/68 Pulse 80 Ht 173 cm (5' 8.11) Wt 96.1 kg (211 lb 13.8 oz) SpO2 98% BMI 32.11 kg/m Physical Exam Constitutional: General: He is not in acute distress. HENT: Nose: No rhinorrhea. Eyes: Conjunctiva/sclera: Conjunctivae normal. Cardiovascular: Rate and Rhythm: Normal rate and regular rhythm. Heart sounds: No murmur heard. No gallop. Pulmonary: Breath sounds: Examination of the right-upper field reveals wheezing. Wheezing present. No decreased breath sounds, rhonchi or rales. Musculoskeletal: Right lower leg: No edema. Left lower leg: No edema. Neurological: Mental Status: He is alert. Gait: Gait abnormal. Comments: Ambulatory with cane. A1c 5.9% today (POC) ASSESSMENT/PLAN: 1. Medicare annual wellness visit, subsequent - ICD9: V70.0, ICD10: Z00.00 (primary diagnosis) - See wellness. 2. Screening for depression - ICD9: V79.0, ICD10: Z13.31 - DEPRESSION SCREENING 3. Encounter for screening examination for other mental health and behavioral disorders - ICD9: V79.8, ICD10: Z13.39 - ANXIETY SCREENING 4. 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) - ICD9: 250.60, 357.2, ICD10: E11.42 Diet controlled. - HEMOGLOBIN A1C (POC) - ALBUMIN/CREATININE RATIO, URINE 5. Coronary artery disease of [place] artery of [place] heart with stable angina pectoris - ICD9: 414.01, 413.9, ICD10: I25.118 - Stable. 6. Primary hypertension - ICD9: 401.9, ICD10: I10 - Controlled - Continue current medications 7. Failed back syndrome - ICD9: 722.80, ICD10: M96.1 - He declined SNRI. 8. Weakness of both legs - ICD9: 729.89, ICD10: R29.898 - Resolve. 9. Wheezing - ICD9: 786.07, ICD10: R06.2 Significance not clear. I called spouse as this was discussed, but ordered after the visit. He was instructed to do at his convenience. - XR CHEST 2V FRONTAL/LAT Galindo Yuan MD Jg Chahal is a 84 year old male here for a Medicare wellness visit. Medicare Health Risk Assessment General Health Fair Exercise: Minutes/Day 30 min Exercise: Days/Week 4 days Alcohol: Daily Use Never Alcohol: Drinks/Day Patient does not drink Alcohol: 6 or more drinks Never Feel off balance No Concerns: Teeth/Dentures No Concerns: Sexual function No Troubled by feelings None of the above Frequency: Eating healthy diet Nearly every day ADLs requiring help None of the above Safety precautions in home/vehicle Yes Smoke, vape, chews tobacco No Difficulty hearing Yes Difficulty seeing No Current Providers Specialists: I have reviewed specialist-related care of the patient in the medical record. Current care team: Patient Care Team: Galindo Yuan MD as PCP - General (Internal Medicine) Sakshi Sanz MD (Cardiology, EPS) Ana Mckoy, UNIVERSITY TUTOR.DENTAL FLOSS PACKER as Candy Bar Attendant (Internal Medicine) Renan Bah MD (Cardiology) Ruth Perla DO (Dermatology) Rashaun Manning MD (Neurology-Sleep Medicine) Renan Bowling MD (Pain management) Juan Torres DPM (Podiatry) Odin Ochoa MD ([facility], Neurosurgery) Uri Diggs MD (Ophthalmology, [facility]). Medical/Family history review Reviewed and updated problem list, medical/surgical/family/social history, medications, and allergies. Opioid use review Opioid Medications (last 90 days) No data to display Anxiety/Depression screening Recommendation: no further intervention at this time Cognitive screening Mini Cog Score: 4 Cognitive screening reviewed and No further action needed (score 3-5). Functional Observation Was the patient's Timed Up & Go test unsteady or >= 12 seconds? No Advance Care Planning Patient did not wish or was not able to name a surrogate decision maker or provide an advance care plan Measurements BP 118/68 Pulse 80 Ht 173 cm (5' 8.11) Wt 96.1 kg (211 lb 13.8 oz) SpO2 98% BMI 32.11 kg/m Vision Screening: Follows with optometry/ophthalmology Assessment/Plan Medicare annual wellness visit, subsequent (Z00.00) - Counseled on healthy diet and regular exercise - Fall avoidance information provided - Personalized prevention plan provided documented in this encounter [facility] 06-23-2025 Note HNO ID: [id number] Author: GALINDO YUAN MD Service: ? Author Type: Physician Type: Progress Notes Filed: 06/23/2025 08:59 Note Text: Jg Chahal is a 84 year old male here for a Medicare wellness visit. Medicare Health Risk Assessment General Health Fair Exercise: Minutes/Day 30 min Exercise: Days/Week 4 days Alcohol: Daily Use Never Alcohol: Drinks/Day Patient does not drink Alcohol: 6 or more drinks Never Feel off balance No Concerns: Teeth/Dentures No Concerns: Sexual function No Troubled by feelings None of the above Frequency: Eating healthy diet Nearly every day ADLs requiring help None of the above Safety precautions in home/vehicle Yes Smoke, vape, chews tobacco No Difficulty hearing Yes Difficulty seeing No Current Providers Specialists: I have reviewed specialist-related care of the patient in the medical record. Current care team: Patient Care Team: Galindo Yuan MD as PCP - General (Internal Medicine) Sakshi Sanz MD (Cardiology, EPS) Ana Mckoy, DONNIE.DENTAL FLOSS PACKER as Candy Bar Attendant (Internal Medicine) Renan Bah MD (Cardiology) Ruth Perla DO (Dermatology) Rashaun Manning MD (Neurology-Sleep Medicine) Renan Bowling MD (Pain management) Juan Torres DPM (Podiatry) Odin Ochoa MD ([facility], Neurosurgery) Uri Diggs MD (Ophthalmology, [facility]). Medical/Family history review Reviewed and updated problem list, medical/surgical/family/social history, medications, and allergies. Opioid use review Opioid Medications (last 90 days) No data to display Anxiety/Depression screening Recommendation: no further intervention at this time Cognitive screening Mini Cog Score: 4 Cognitive screening reviewed and No further action needed (score 3-5). Functional Observation Was the patient's Timed Up AND Go test unsteady or >= 12 seconds? No Advance Care Planning Patient did not wish or was not able to name a surrogate decision maker or provide an advance care plan Measurements BP 118/68 Pulse 80 Ht 173 cm (5' 8.11) Wt 96.1 kg (211 lb 13.8 oz) SpO2 98% BMI 32.11 kg/m? Vision Screening: Follows with optometry/ophthalmology Assessment/Plan Medicare annual wellness visit, subsequent (Z00.00) - Counseled on healthy diet and regular exercise - Fall avoidance information provided - Personalized prevention plan provided [facility] 06-16-2025 Note HNO ID: [id number] Author: JUAN TORRES, ? Service: ? Author Type: Physician Type: Progress Notes Filed: 06/16/2025 09:40 Note Text: Last saw pcp: 05/21/25 Subjective: Patient presents to clinic c/o painful toenails. They state that the nails are especially painful with shoe gear and pressure. Patient states that nails 1-5 b/l are painful. Patient admits to being diabetic. No other pedal complaints at this time. Patient states no change in medications or medical history since last visit. Objective: Patient presents to clinic ambulating in tennis shoes Vasc: DP and PT pulses are palpable bilateral. CFT is less than 5 seconds bilateral. Skin temperature is warm to cool proximal to distal bilateral. There is moderate edema or varicosities noted. Neuro: Protective sensation is absent to the foot and toes when tested with the 5.07 SWM bilateral. Vibratory sensation is absent at the hallux IPJ bilateral. The hallux is downgoing bilateral. Derm: Nails 1-5 b/l are painful, discolored-yellow, thick, crumbly, dystrophic and with subungal debris. Skin is of normal turgor, texture and hair growth is absent bilateral. There are callus to left 3rd toe. No ulcerations, scars, verruca or other lesions noted. Scaling is noted between the left 4th interspace Ortho: Muscle strength is 5/5 for all pedal groups tested. Ankle joint DF is decreased with the knee extended with no pain or crepitus noted. 1st MPJ ROM is decreased bilateral. Rigid hammertoes of lesser toes of b/l feet Assessment: (B35.1) Onychomycosis (primary encounter diagnosis) (M79.674) Pain in toe of right foot (M79.675) Pain in toe of left foot (E11.49) Other diabetic neurological complication associated with type 2 diabetes mellitus (HCC) (L85.9) Hyperkeratosis (B35.3) Tinea pedis of left foot Plan: Patient was seen and evaluated. Nails 1-5 bilateral were debrided in length and thickness. Callus reduced with dremmel to left 3rd toe Discussed athletes's foot. Recommend the use of loprox between toes and use of lambs wool. When macerated, use betadine. Patient was instructed on the continued importance of diabetic foot care along with proper diet and keeping their blood sugar under control to prevent complications. Patient is to RTC in 3-4 months. Juan Torres DPM [facility] 06-16-2025 History of Present illness Narrative Last saw pcp: 05/21/25 Subjective: Patient presents to clinic c/o painful toenails. They state that the nails are especially painful with shoe gear and pressure. Patient states that nails 1-5 b/l are painful. Patient admits to being diabetic. No other pedal complaints at this time. Patient states no change in medications or medical history since last visit. Objective: Patient presents to clinic ambulating in tennis shoes Vasc: DP and PT pulses are palpable bilateral. CFT is less than 5 seconds bilateral. Skin temperature is warm to cool proximal to distal bilateral. There is moderate edema or varicosities noted. Neuro: Protective sensation is absent to the foot and toes when tested with the 5.07 SWM bilateral. Vibratory sensation is absent at the hallux IPJ bilateral. The hallux is downgoing bilateral. Derm: Nails 1-5 b/l are painful, discolored-yellow, thick, crumbly, dystrophic and with subungal debris. Skin is of normal turgor, texture and hair growth is absent bilateral. There are callus to left 3rd toe. No ulcerations, scars, verruca or other lesions noted. Scaling is noted between the left 4th interspace Ortho: Muscle strength is 5/5 for all pedal groups tested. Ankle joint DF is decreased with the knee extended with no pain or crepitus noted. 1st MPJ ROM is decreased bilateral. Rigid hammertoes of lesser toes of b/l feet Assessment: (B35.1) Onychomycosis (primary encounter diagnosis) (M79.674) Pain in toe of right foot (M79.675) Pain in toe of left foot (E11.49) Other diabetic neurological complication associated with type 2 diabetes mellitus (HCC) (L85.9) Hyperkeratosis (B35.3) Tinea pedis of left foot Plan: Patient was seen and evaluated. Nails 1-5 bilateral were debrided in length and thickness. Callus reduced with dremmel to left 3rd toe Discussed athletes's foot. Recommend the use of loprox between toes and use of lambs wool. When macerated, use betadine. Patient was instructed on the continued importance of diabetic foot care along with proper diet and keeping their blood sugar under control to prevent complications. Patient is to RTC in 3-4 months. Juan Torres DPM AMB ROOMING INTAKE FLOWSHEET DATA Patient presents with: Right Foot - Established Patient, Pain, Diabetic Foot Care Left Foot - Established Patient, Pain, Diabetic Foot Care Holli Johnson LPN documented in this encounter [facility] 06-16-2025 Instructions Juan Torres - 06/16/2025 8:34 AM EDT You have what appears to be athletes foot between the 4th and 5th toes. Please be sure to dry between your toes. When the foot has scaling between the toes, use the prescribed athlete's foot medication. If you notice excess moisture, hold on medication and use betadine. The use of lambs wool between the toes will also help. Diabetes Foot Care Instructions When you have diabetes, proper foot care is very important. Poor foot care may lead to amputation of a foot or leg. As a person with diabetes, you are more vulnerable to foot problems, because diabetes can damage your nerves and reduce blood flow to your feet. Here are some diabetes foot care tips to follow: Wash and Dry Your Feet Daily Use mild soaps Use warm water Pat your skin dry; do not rub. Thoroughly dry your feet. After washing, use lotion on your feet to prevent cracking. Do not put lotion between your toes. Examine Your Feet Each Day Check the tops and bottoms of your feet. Have someone else look at your feet if you cannot see them. Check for dry, cracked skin. Look for blisters, cuts, scratches, or other sores. Check for redness, increased warmth, or tenderness when touching any area of your feet. Check for ingrown toenails, corns, and calluses. If you get a blister or sore from your shoes, do not pop it. Apply a bandage and wear a different pair of shoes. Take Care of Your Toenails Cut toenails after bathing, when they are soft. Cut toenails straight across and smooth with a nail file. Avoid cutting into the corners of toes. Do not cut cuticles. If you have neuropathy (or decreased sensation in your feet) a web programmer should always cut your toenails. Be Careful When Exercising Walk and exercise in comfortable shoes. Do not exercise when you have open sores on your feet. Protect Your Feet With Shoes and Socks Never go barefoot. Always protect your feet by wearing shoes or hard-soled slippers or footwear. Avoid shoes with high heels and pointed toes. Avoid shoes that expose your toes or heels (such as open-toed shoes or sandals). These types of shoes increase your risk for injury and potential infections. Try on new footwear with the type of socks you usually wear. Do not wear new shoes for more than an hour at a time. Change your socks daily. Look and feel inside your shoes before putting them on to make sure there are no foreign objects or rough areas. Avoid tight socks. Wear natural-fiber socks (cotton, wool, or a cotton-wool blend). Wear special shoes if your health care provider recommends them. Wear shoes/boots that will protect your feet from various weather conditions (cold, moisture, etc.). Make sure your shoes fit properly. If you have neuropathy (nerve damage), you may not notice that your shoes are too tight. Perform the footwear test described below. Footwear Test Use this simple test to see if your shoes fit correctly: Stand on a piece of paper. (Make sure you are standing and not sitting, because your foot changes shape when you stand.) Trace the outline of your foot. Trace the outline of your shoe. Compare the tracings: Is the shoe too narrow? Is your foot crammed into the shoe? The shoe should be at least 1/2 inch longer than your longest toe and as wide as your foot. Proper Shoe Choices The following types of shoes are best for people with diabetes Closed toes and heels Leather uppers without a seam inside At least 1/2 inch extra space at the end of your longest toe Inside of shoe should be soft with no rough areas Outer sole should be made of stiff material Shoes should be at least as wide as your feet Tips for Foot Care in Diabetes Don't wait to treat a minor foot problem if you have diabetes. Follow your health care provider's guidelines and first aid guidelines. Report foot injuries and infections to your health care provider immediately. Check water temperature with your elbow, not your foot. Do not use a heating pad on your feet. Do not cross your legs. Do not self-treat your corns, calluses, or other foot problems. Go to your health care provider or web programmer to treat these conditions. documented in this encounter [facility] 06-16-2025 Note HNO ID: [id number] Author: HOLLI JOHNSON LPN Service: ? Author Type: LICENSED NURSE Type: Progress Notes Filed: 06/16/2025 09:40 Note Text: AMB ROOMING INTAKE FLOWSHEET DATA Patient presents with: Right Foot - Established Patient, Pain, Diabetic Foot Care Left Foot - Established Patient, Pain, Diabetic Foot Care Holli Johnson LPN [facility] 06-08-2025 Note HNO ID: [id number] Author: ULISSES FOX PT Service: ? Author Type: Physical Therapist Type: Progress Notes Filed: 06/08/2025 15:57 Note Text: Episode Visit Count: 1 Therapist That Will Accept/Oversee The Plan Of Care: Ulisses Fox Start of Care Date: 02/14/23 Onset Date: 02/14/22 Plan of Care Certification Date: 06/08/25 Next Certification Due Date: 07/20/25 Patient Identified by Name and Date of : Yes REHABILITATION AND SPORTS THERAPY PHYSICAL THERAPY EVALUATION PLAN OF CARE: Assessment: Jg Chahal presents with chief complaint of BLE weakness that interferes with standing, walking in the community, bending, physical activities, lifting, squatting . The patient presents with impairments in ADL's, gait, overall function, strength, and symptom management. PROMIS? (Patient-Reported Outcomes Measurement Information System) scores were reviewed and identified as a rehabilitation concern. Prognosis for therapy is Fair due to: clinical presentation, multiple co- morbidities, chronic nature of impairments, advanced age, limited tolerance to activity . The patient will benefit from skilled therapy services to meet the goals established for this plan of care as noted below. Assessment Fall Risk : Active low risk Goals for Episode of Care: established Patient reported outcome of physical function will increase T-score by a minimum 5 points. [place] in home exercise program. Patient will demonstrate increase in BLE strength to 4+/5 during manual muscle testing in order to improve function for basic self-care tasks, home management tasks, and light functional tasks. Perform walking and standing for ADLs with decreased report of symptoms/pain in 4-6 weeks. Time Frame for Goals and Treatment : 08/09/25 Planned Interventions, Frequency, and Duration: Current Frequency: 1x/week Duration: 4 weeks Total Number of Visits Planned: 4 Planned Treatment Interventions: Therapeutic exercise (87211), Therapeutic activities (97859), Neuromuscular re-education (77761), Manual therapy (38372), Gait Training (25962), Self-usp management (69189), Patient/Family/Caregiver Education, Body Mechanics Training PLAN FOR NEXT VISIT: Assess carry voer of HEP, progress accordingly Patient demonstrates good understanding of plan of care and treatment. The above goals and plan of care were discussed and agreed upon by patient/family. SUBJECTIVE: BLE weakness for awhile now but more noticeable lately after getting a spinal cord stimulator. Functional Limitations: standing, walking in the community, bending, physical activities, lifting, squatting Prior Level of Function: Independent with restrictions Independent with the following restrictions: Standing, walking, ADLs in WB Intake Information: Prescription present Falls History # of falls in past year: 0 Pain: Pain Pain Level: 5 Pain Location: Low Back/Lumbar Spine- Midline Description: Aching, Tightness Frequency: Intermittent PROMIS Scales 02/13/2024 02/14/2023 Higher is Better Phys Func - T Score 38 (moderate dysfunction) 47 (within normal limits) Phys Func - Percentile 12 38 Self-Eff Symptom - T Score 49 (Average) Self-Eff Symptom - Percentile 46 Proxy-reported 02/13/2024 02/14/2023 Lower is Better Pain Interference - T Score 63 (moderate) 63 (moderate) Pain Interference - Percentile 10 10 Proxy-reported T-scores: mean of general population = 50. 5 points is clinically meaningfully difference Percentiles provide an indication of how the patient's score ranks in relation to the general population. Higher percentile rankings indicate better function/quality of life. 50th percentile is the average of the general population and indicates half of respondents had a worse score. OBJECTIVE MEASURES WITH LEVEL OF FUNCTION: LE Strength R LE Strength: 4- to 4/5 grossly L LE Strength: 4- to 4/5 grossly Functional Performance Test Results 30 Second Chair Stand Test: 10 reps Vitals BP: 119/72 Pulse: 83 Education: Education Learning/educational needs: Home exercise program, Plan of Care Education Provided: Yes, see treatment interventions for education provided Education Provided To: Patient Education Mode/Type: Demonstration, Explanation/Discussion, Literature/Printed Materials Response to Education/Teach Back: States/Identifies TREATMENT: PT Treatment Interventions: Therapeutic Exercise Evaluation Therapeutic Exercise: 1: *SLR 3x10/side 2: *SL hip abduction 3x10/side 3: *LAQ 3x10 (Ankle weight of his choice at home, discussed how to determine appropriate resistance) 4: *STS 3x10 (cued for quick on the up, slow on the down) Skilled Intervention: Patient was educated in proper exercise technique and purpose for exercises. Skilled judgment was used in selection of appropriate interventions. Provided written instruction for home exercise program to facilitate proper (more content not included)... [facility] 06-08-2025 History of Present illness Narrative Images from the original note were not included. Episode Visit Count: 1 Therapist That Will Accept/Oversee The Plan Of Care: Ulisses Fox Start of Care Date: 02/14/23 Onset Date: 02/14/22 Plan of Care Certification Date: 06/08/25 Next Certification Due Date: 07/20/25 Patient Identified by Name and Date of : Yes REHABILITATION AND SPORTS THERAPY PHYSICAL THERAPY EVALUATION PLAN OF CARE: Assessment: Jg Chahal presents with chief complaint of BLE weakness that interferes with standing, walking in the community, bending, physical activities, lifting, squatting . The patient presents with impairments in ADL's, gait, overall function, strength, and symptom management. PROMIS (Patient-Reported Outcomes Measurement Information System) scores were reviewed and identified as a rehabilitation concern. Prognosis for therapy is Fair due to: clinical presentation, multiple co- morbidities, chronic nature of impairments, advanced age, limited tolerance to activity . The patient will benefit from skilled therapy services to meet the goals established for this plan of care as noted below. Assessment Fall Risk : Active low risk Goals for Episode of Care: established Patient reported outcome of physical function will increase T-score by a minimum 5 points. [place] in home exercise program. Patient will demonstrate increase in BLE strength to 4+/5 during manual muscle testing in order to improve function for basic self-care tasks, home management tasks, and light functional tasks. Perform walking and standing for ADLs with decreased report of symptoms/pain in 4-6 weeks. Time Frame for Goals and Treatment : 08/09/25 Planned Interventions, Frequency, and Duration: Current Frequency: 1x/week Duration: 4 weeks Total Number of Visits Planned: 4 Planned Treatment Interventions: Therapeutic exercise (26794), Therapeutic activities (25946), Neuromuscular re-education (17659), Manual therapy (65335), Gait Training (16453), Self-usp management (83563), Patient/Family/Caregiver Education, Body Mechanics Training PLAN FOR NEXT VISIT: Assess carry voer of HEP, progress accordingly Patient demonstrates good understanding of plan of care and treatment. The above goals and plan of care were discussed and agreed upon by patient/family. SUBJECTIVE: BLE weakness for awhile now but more noticeable lately after getting a spinal cord stimulator. Functional Limitations: standing, walking in the community, bending, physical activities, lifting, squatting Prior Level of Function: Independent with restrictions Independent with the following restrictions: Standing, walking, ADLs in WB Intake Information: Prescription present Falls History # of falls in past year: 0 Pain: Pain Pain Level: 5 Pain Location: Low Back/Lumbar Spine- Midline Description: Aching, Tightness Frequency: Intermittent PROMIS Scales 02/13/2024 02/14/2023 Higher is Better Phys Func - T Score 38 (moderate dysfunction) 47 (within normal limits) Phys Func - Percentile 12 38 Self-Eff Symptom - T Score 49 (Average) Self-Eff Symptom - Percentile 46 Proxy-reported 02/13/2024 02/14/2023 Lower is Better Pain Interference - T Score 63 (moderate) 63 (moderate) Pain Interference - Percentile 10 10 Proxy-reported T-scores: mean of general population = 50. 5 points is clinically meaningfully difference Percentiles provide an indication of how the patient's score ranks in relation to the general population. Higher percentile rankings indicate better function/quality of life. 50th percentile is the average of the general population and indicates half of respondents had a worse score. OBJECTIVE MEASURES WITH LEVEL OF FUNCTION: LE Strength R LE Strength: 4- to 4/5 grossly L LE Strength: 4- to 4/5 grossly Functional Performance Test Results 30 Second Chair Stand Test: 10 reps Vitals BP: 119/72 Pulse: 83 Education: Education Learning/educational needs: Home exercise program, Plan of Care Education Provided: Yes, see treatment interventions for education provided Education Provided To: Patient Education Mode/Type: Demonstration, Explanation/Discussion, Literature/Printed Materials Response to Education/Teach Back: States/Identifies TREATMENT: PT Treatment Interventions: Therapeutic Exercise Evaluation Therapeutic Exercise: 1: *SLR 3x10/side 2: *SL hip abduction 3x10/side 3: *LAQ 3x10 (Ankle weight of his choice at home, discussed how to determine appropriate resistance) 4: *STS 3x10 (cued for quick on the up, slow on the down) Skilled Intervention: Patient was educated in proper exercise technique and purpose for exercises. Skilled judgment was used in selection of appropriate interventions. Provided written instruction for home exercise program to facilitate proper performance and compliance. Correct performance of therapeutic exercises was facilitated with verbal, visual, and tactile cuing. Billing * Evaluation Low Complexity: 1 Unit Therapeutic Exercise Treatment Minutes: 10 Skilled Treatment Time Minutes (timed and untimed codes): 33 Total Session Time (minutes): 33 Session Start Time : 904 Session Stop Time : 937 Ulisses Fox PT Program_ID:[id number] Access Code: [email or web address] URL: [email or web address] Date: 06-08-2025 Prepared By: Ulisses Fox Program Notes Exercises - Supine Active Straight Leg Raise - 1 x daily - 7 x weekly - 3 sets - 10 reps - Sidelying Hip Abduction - 1 x daily - 7 x weekly - 3 sets - 10 reps - Sit to Stand with Arms Crossed - 1 x daily - 7 x weekly - 3 sets - 10 reps - Seated Long Arc Quad with Ankle Weight - 1 x daily - 7 x weekly - 3 sets - 10 reps documented in this encounter [facility] 05-21-2025 Note HNO ID: [id number] Author: GALINDO YUAN MD Service: ? Author Type: Physician Type: Progress Notes Filed: 05/21/2025 12:29 Note Text: This note was created using Mavenlinkriter. Subjective Patient presents with: Discussion Jg Chahal is a 84 year old male. Recording using [email or web address] software for draft documentation of the visit was discussed with the patient/authorized aircraft sales representative; all questions welcomed and answered. Patient/authorized aircraft sales representative agreed to proceed Lower Extremity Weakness: - Onset following percutaneous thoracic spinal cord stimulator placement on April 10. - Describes legs as feeling like they are going to go after standing for 20 minutes. - Reports veering to the right when walking without a cane. - Able to ascend and descend 12 steps twice daily using handrails; does not use a cane for this. - Denies paresthesia or tingling. - Bowel movements and urination are regular. - Denies fever or illness. Spinal Cord Stimulator: - Percutaneous thoracic spinal cord stimulator electrodes and generator placed on April 10 at [facility]. - Reports 50% pain relief in the back, with some days as low as 35%. - Able to stand for 20 minutes without back pain, compared to 3-4 minutes before the procedure. - Battery requires charging every 7 days for 45 minutes; failure to charge results in increased pain. - Incision site is healed; denies current pain at the site. 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 - Experiences instability, especially when descending stairs. - Considering a brace for support. Review of Systems Constitutional: (-) fever Gastrointestinal: (-) constipation, (-) diarrhea Genitourinary: (+) increased urinary frequency Musculoskeletal: (+) right knee instability Neurological: (+) bilateral leg weakness, (-) paresthesias, (-) decreased sensation Objective BP 124/70 (BP Site: Left Arm, BP Position: Sitting, BP Cuff Size: Large Adult) Pulse 76 Resp 16 Wt 94.4 kg (208 lb 1.8 oz) BMI 32.60 kg/m? Physical Exam Constitutional: General: He is not in acute distress. Appearance: He is not ill-appearing. Pulmonary: Effort: Pulmonary effort is normal. Abdominal: General: There is no distension. Tenderness: There is no abdominal tenderness. Musculoskeletal: General: No tenderness. Lumbar back: No tenderness or bony tenderness. Negative right straight leg raise test and negative left straight leg raise test. Scoliosis present. Right lower leg: No edema. Left lower leg: No edema. Comments: Healed surgical sites (2) left lumbar area. Neurological: Mental Status: He is alert. Motor: Weakness (Weakness of both legs 4/5, right slightly more than left.) present. Gait: Gait abnormal (antalgic gait). Comments: Ambulates with cane. Assessment and Plan 1. Weakness of both legs - ICD9: 729.89, ICD10: R29.898 (primary diagnosis) - CONSULT TO PHYSICAL THERAPY 2. 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 Lumbar radiculopathy - ICD9: 724.4, ICD10: M54.16 - CONSULT TO PHYSICAL THERAPY 4. Status post insertion of spinal cord stimulator - ICD9: V45.89, ICD10: Z96.89 - with benefit. Galindo Yuan MD [facility] 05-21-2025 History of Present illness Narrative This note was created using CollabNetter. Subjective Patient presents with: Discussion Jg Chahal is a 84 year old male. Recording using [email or web address] software for draft documentation of the visit was discussed with the patient/authorized aircraft sales representative; all questions welcomed and answered. Patient/authorized aircraft sales representative agreed to proceed Lower Extremity Weakness: - Onset following percutaneous thoracic spinal cord stimulator placement on April 10. - Describes legs as feeling like they are going to go after standing for 20 minutes. - Reports veering to the right when walking without a cane. - Able to ascend and descend 12 steps twice daily using handrails; does not use a cane for this. - Denies paresthesia or tingling. - Bowel movements and urination are regular. - Denies fever or illness. Spinal Cord Stimulator: - Percutaneous thoracic spinal cord stimulator electrodes and generator placed on April 10 at [facility]. - Reports 50% pain relief in the back, with some days as low as 35%. - Able to stand for 20 minutes without back pain, compared to 3-4 minutes before the procedure. - Battery requires charging every 7 days for 45 minutes; failure to charge results in increased pain. - Incision site is healed; denies current pain at the site. 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 - Experiences instability, especially when descending stairs. - Considering a brace for support. Review of Systems Constitutional: (-) fever Gastrointestinal: (-) constipation, (-) diarrhea Genitourinary: (+) increased urinary frequency Musculoskeletal: (+) right knee instability Neurological: (+) bilateral leg weakness, (-) paresthesias, (-) decreased sensation Objective BP 124/70 (BP Site: Left Arm, BP Position: Sitting, BP Cuff Size: Large Adult) Pulse 76 Resp 16 Wt 94.4 kg (208 lb 1.8 oz) BMI 32.60 kg/m Physical Exam Constitutional: General: He is not in acute distress. Appearance: He is not ill-appearing. Pulmonary: Effort: Pulmonary effort is normal. Abdominal: General: There is no distension. Tenderness: There is no abdominal tenderness. Musculoskeletal: General: No tenderness. Lumbar back: No tenderness or bony tenderness. Negative right straight leg raise test and negative left straight leg raise test. Scoliosis present. Right lower leg: No edema. Left lower leg: No edema. Comments: Healed surgical sites (2) left lumbar area. Neurological: Mental Status: He is alert. Motor: Weakness (Weakness of both legs 4/5, right slightly more than left.) present. Gait: Gait abnormal (antalgic gait). Comments: Ambulates with cane. Assessment and Plan 1. Weakness of both legs - ICD9: 729.89, ICD10: R29.898 (primary diagnosis) - CONSULT TO PHYSICAL THERAPY 2. 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 Lumbar radiculopathy - ICD9: 724.4, ICD10: M54.16 - CONSULT TO PHYSICAL THERAPY 4. Status post insertion of spinal cord stimulator - ICD9: V45.89, ICD10: Z96.89 - with benefit. Galindo Yuan MD documented in this encounter [facility] 04-22-2025 History of Present illness Narrative [facility] Neurosurgery Diagnosis Diagnoses and all orders for this visit: Postlaminectomy syndrome of lumbar region S/P insertion of spinal cord stimulator Patient Discussion/Summary Jg has postlaminectomy syndrome. After the failure of multimodal management, he underwent a trial of spinal cord stimulation using the [employer] system with an excellent result. As such, he was brought to the operating room on April 10 for implantation of a percutaneous spinal cord stimulator. This procedure was uncomplicated. In follow-up, he has been healing well. He only had mild surgical site discomfort, which has improved. He has already noticed significant improvement with the stimulation itself. We were able to see his usage in virtually today; this demonstrated excellent pain relief with rest and activity. At this time, he does not require any specific programming with the [employer] representatives. He is aware to call them with any needs. Otherwise, he may contact us with any questions or concerns. History of Present Illness Chief Complaint: No chief complaint on file. HPI: Jg Chahal is a 84 y.o. male with postlaminectomy syndrome who underwent a successful trial of spinal cord stimulation using the [employer] system, with up to 80% improvement in his baseline pain, as well as significant improvement in his sleep and function. 04/10 he underwent a percutaneous thoracic spinal cord stimulator electrodes and generator placement. Patient presents today for his post op visit for evaluation of wound, progress since surgery and programming as needed. ROS: As noted in HPI. Previous History Medical History[1] Surgical History[2] Social History[3] Family History[4] Allergies[5] Current Outpatient Medications Medication Instructions amLODIPine (NORVASC) 2.5 mg, Daily atorvastatin (LIPITOR) 40 mg, Daily b complex 0.4 mg tablet 1 tablet, Daily baclofen (LIORESAL) 10 mg, Daily PRN cholecalciferol (VITAMIN D3) 25 mcg, Daily clotrimazole-betamethasone (Lotrisone) cream 1 Application, 2 times daily docusate sodium (COLACE) 100 mg, Nightly dofetilide (TIKOSYN) 250 mcg, Every 12 hours Eliquis 5 mg, oral, 2 times daily, DO NOT RESUME UNTIL POST OPERATIVE DAY 7 (04/17/2025) losartan (COZAAR) 50 mg, Daily RT magnesium oxide (MAG-OX) 400 mg, Daily melatonin 3 mg, Nightly metoprolol succinate XL (TOPROL-XL) 25 mg, Daily RT nitroglycerin (NITROSTAT) 0.4 mg, Every 5 min PRN pantoprazole (PROTONIX) 40 mg, Daily before breakfast Vitals There were no vitals taken for this visit. [1] Past Medical History: Diagnosis Date Arrhythmia Arthritis Chronic pain disorder CKD (chronic kidney disease) Coronary artery disease GERD (gastroesophageal reflux disease) Hyperlipidemia Hypertension Irregular heart beat Lumbar disc disease Skin disorder Sleep apnea Type 2 diabetes mellitus [2] Past Surgical History: Procedure Laterality Date BACK SURGERY 4 surgeries CARPAL TUNNEL RELEASE Bilateral CATARACT EXTRACTION Bilateral HIP SURGERY Right KNEE Left 2x SHOULDER Left SHOULDER Right SKIN CANCER EXCISION head [3] Social History Tobacco Use Smoking status: Never Smokeless tobacco: Never Vaping Use Vaping status: Never Used Substance Use Topics Alcohol use: Never Drug use: Never [4] Family History Problem Relation Name Age of Onset Heart failure Mother Hypertension Mother Stroke Mother Heart attack Father Lymphoma Father [5] Allergies Allergen Reactions Adhesive Hives Latex Hives Meperidine Hcl Unknown Nsaids (Non-Steroidal Anti-Inflammatory Drug) Cardiac arrhythmia/arrest Codeine Palpitations Propoxyphene N-Acetaminophen Itching and Palpitations documented in this encounter [facility] Work Phone: 04-01-2025 Telephone encounter Note Received fax from Perioperative Medicine. Blank form scanned to chart. Surgeon: Dr. Ochoa Surgery: Percutaneous thoracic spinal cord stimulator electrodes and generator placement Date: 04/10/25 Faxed/routed Dr. Bah's OV 03/23/25 addressing pre-operative recommendations to [phone]. Nicole Wolfe RN [facility] 04-01-2025 Miscellaneous Notes Received fax from Perioperative Medicine. Blank form scanned to chart. Surgeon: Dr. Ochoa Surgery: Percutaneous thoracic spinal cord stimulator electrodes and generator placement Date: 04/10/25 Faxed/routed Dr. Bah'scott OV 03/23/25 addressing pre-operative recommendations to [phone]. Nicole Wolfe RN documented in this encounter [facility] 03-23-2025 Anurag Vitale MD - 03/23/2025 11:38 AM EDT Repeat fasting blood work documented in this encounter [facility] 03-23-2025 History of Present illness Narrative Images from the original note were not included. [facility] SE[facility] REGIONAL CARDIOLOGY Cardiology ([facility]) [address] [facility] [id number] OUTPATIENT VISIT DATE 03/23/2025 PRIMARY CARE PHYSICIAN: Galindo Yuan [address] [place] [address] HISTORY OF PRESENT ILLNESS: Mr. Chahal is a 84 year old gentleman with known coronary artery disease and prior coronary intervention, paroxysmal atrial fibrillation currently maintained on Tikosyn, hypertension, dyslipidemia and diabetes [id number] who presents for routine follow-up. Patient continues to do well from a functional standpoint. He is limited by some back pain. He is scheduled for a spinal stimulator later this month. He reports that he had a stimulator for 5 days which significantly decreased his back pain and increased his functional capacity. He has not had symptoms concerning for CHF including PND, orthopnea, or lower extremity edema. He denies palpitations, lightheadedness, dizziness, or syncope. 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 Dr. Tee Clemons, Dermatology Basal cell carcinoma (BCC) of skin of face Mohs 04/2021 Cervical spondylosis 09/25/2022 Coronary atherosclerosis of unspecified type of vessel, [place] or graft 01/22/2006 moderate Diverticulosis of colon (without mention of hemorrhage) 07/18/2005 Dyslipidemia Dyspepsia and other specified disorders of function of stomach 07/18/2005 Chronic gastritis, Dyspepsia. Gastric ulcer, unspecified as acute or chronic, without mention of hemorrhage or perforation, with obstruction Generalized osteoarthrosis, unspecified site 07/18/2005 H. pylori infection 05/30/2011 HTN (hypertension) Hypertensive 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 4 chronic kidney disease, or unspecified chronic kidney disease 07/18/2005 Impaired fasting glucose 07/18/2005 Lipoprotein deficiencies 07/18/2005 Low HDL. Lumbago 08/26/2008 Dr. Odin Coon, [facility]. Rotator cuff tear, right 10/21/2012 Salmonella enteritis 08/2010 Type II or unspecified type diabetes mellitus without mention of complication, not stated as uncontrolled 07/08/2007 Unspecified essential hypertension 07/18/2005 PAST SURGICAL HISTORY Procedure Laterality Date ARTHROSCOPY KNEE DIAGNOSTIC W/WO SYNOVIAL BX SPX 11/2003 Arthroscopy, knee ARTHRP ACETBLR/PROX FEM PROSTC AGRFT/ALGRFT Right 08/07/2016 Hip replacement, total ARTHRP KNE CONDYLE&PLATU MEDIAL&LAT COMPARTMENTS 2002 Knee replacement, total, left ARTHRP KNE CONDYLE&PLATU MEDIAL&LAT COMPARTMENTS Left 10/01/2017 revision L TKA, [facility] CC ABLATION SVT 04/06/2017 EP study, ablation for A.fib. COLONOSCOPY FLX DX W/COLLJ SPEC WHEN PFRMD 12/24/2002 Colonoscopy COLONOSCOPY FLX DX W/COLLJ SPEC WHEN PFRMD 05/11/2011 Colonoscopy ESOPHAGOGASTRODUODENOSCOPY TRANSORAL DIAGNOSTIC 03/18/2007 EGD ESOPHAGOGASTRODUODENOSCOPY TRANSORAL DIAGNOSTIC 06/11/2007 EGD ESOPHAGOGASTRODUODENOSCOPY TRANSORAL DIAGNOSTIC 05/11/2011 EGD LOPEZ W/O FACETEC FORAMOT/DSC 1/2 VRT SGM CRV 2000 Laminectomy, cervical LAMINECTOMY W/O FFD > 2 VERT SEG LUMBAR 11/05/2008 lumbar fusion LAMINOTOMY (HEMILAMINECTOMY), WITH DECOMPRESSION OF NERVE ROOT(S) Bilateral 05/02/2019 Revision hemilaminectomies L2,L3,L4-L5 LEFT HEART CATH,PERCUTANEOUS 01/22/2006 Cardiac cath, L heart LEFT HEART CATH,PERCUTANEOUS 05/31/2011 Cardiac cath, L heart LEFT HEART CATH,PERCUTANEOUS 11/27/2011 Cardiac cath, L heart LEFT HEART CATH,PERCUTANEOUS 11/27/2013 Cardiac cath, L heart NEUROPLASTY &/TRANSPOS MEDIAN NRV CARPAL TUNNE 1995 Carpal tunnel decomp R/L OPEN REPAIR OF ROTATOR CUFF ACUTE 1996 Rotator cuff repair, bilateral OPEN REPAIR OF ROTATOR CUFF CHRONIC Left 12/28/2014 Left shoulder open rotator cuff repair and Sub Ac decompression SHX TOTAL SHOULDER REVERSE Left 02/01/2022 Left reverse total shoulder arthroplasty TRANSCATH STENT INIT VESSEL,PERCUT 08/26/2009 Transcath stent init vessel percut TRANSCATH STENT INIT VESSEL,PERCUT 11/16/2010 Transcath stent init vessel percut SOCIAL HISTORY Social History Tobacco Use Smoking status: Never Smokeless tobacco: Never Vaping Use Vaping status: Never Used Substance Use Topics Alcohol use: No Drug use: No FAMILY HISTORY Problem Relation Age of Onset other (CVA) Mother d 89 stroke other (HTN) Mother other (CHF) Mother Ischemic Heart Disease Father Skin Cancer Father bcc other (Lymphoma) Father d 65 lymphoma other (Skin Ca) Brother Melanoma Brother other (Tremors) Brother Cancer Daughter ovarian Diabetes Maternal Grandmother other (Tremors) Brother Melanoma Other maternal uncle ALLERGIES: ALLERGIES Allergen Reactions Adhesive Hives Codeine HEART PALPITATIONS Darvocet-N 100 [Pro* Intolerance Heart racing Latex Hives Meperidine Hcl MEDICATIONS: baclofen 10 mg tablet Take 1 tablet by mouth at bedtime as needed (leg cramps.). losartan (COZAAR) 50 mg tablet Take 1 tablet by mouth once daily. metoprolol succinate ER (TOPROL XL) 25 mg 24 hr tablet Take 1 tablet by mouth once daily. apixaban (ELIQUIS) 5 mg tab(s) Take 1 tablet by mouth two times a day. amLODIPine (NORVASC) 2.5 mg tablet Take 1 tablet by mouth once daily. dofetilide (TIKOSYN) 250 mcg capsule Take 1 capsule by mouth two times a day. pantoprazole DR (PROTONIX) 40 mg tablet TAKE ONE TABLET BY MOUTH DAILY ON EMPTY STOMACH ONE-HALF HOUR BEFORE BREAKFAST atorvastatin (LIPITOR) 40 mg tablet Take 1 tablet by mouth once daily. clotrimazole-betamethasone (LOTRISONE) cream Apply to affected area twice daily. APPLY TO AFFECTED AREA nitroglycerin sublingual (NITROSTAT) 0.4 mg SL tablet Dissolve 1 tablet under the tongue every 5 minutes as needed for chest pain. blood sugar diagnostic (BLOOD GLUCOSE TEST) test strip Test blood sugar(s) 1 times daily. Dx: Type 2 DM - Controlled E11.42 Insulin: No TENS unit and electrodes cmpk Us as instructed. melatonin 3 mg tablet Take 1 tablet by mouth daily at bedtime. Lancets lancets Test blood sugar(s) 1 times daily. Dx: Type 2 DM - Controlled E11.42 Insulin: No CPAP Patient requesting new DME. Currently has a PAP device (2016 -- may be due for new device). Please fit with a Wisp (currently with Dream wisp and causing discomfort on top of head). Lifetime supplies. Amoxicillin 500 mg tablet Take 4 tablets by mouth as needed (1 hour before the procedure). docusate sodium (COLACE) 100 mg capsule AT BEDTIME magnesium oxide (MAG-OX) 400 mg tablet Take 1 tablet by mouth once daily. Cholecalciferol, Vitamin D3, 1,000 unit cap Take 1 capsule by mouth once daily. vitamin b complex (B COMPLETE) ORAL Tab Take 1 tablet by mouth once daily. REVIEW OF SYSTEMS: Review of Systems Constitutional: Negative for chills, fever, malaise/fatigue and weight loss. HENT: Negative for hearing loss and sore throat. Eyes: Negative for blurred vision and double vision. Respiratory: Negative. Cardiovascular: Negative. Gastrointestinal: Negative. Genitourinary: Negative for dysuria, frequency, hematuria and urgency. Musculoskeletal: Negative. Skin: Negative. Neurological: Negative for dizziness, seizures, loss of consciousness, weakness and headaches. Endo/Heme/Allergies: Negative for environmental allergies. Does not bruise/bleed easily. Psychiatric/Behavioral: Negative for depression. PHYSICAL EXAMINATION: BP 114/66 Pulse 77 Resp 12 Ht 5' 7 (1.70m) Wt 211 lb (95.7kg) SpO2 96% BMI 33.04 kg/(m^2). General: Pleasant gentleman sitting appears comfortable no apparent distress he is alert and oriented x3 HEENT: Carotid upstrokes are brisk bilaterally without bruits no JVD appreciated. Pulmonary: Lungs are clear no rales, wheezes, rhonchi Cardiovascular: Normal S1, S2 with regular rate and rhythm. No murmurs, rubs, or gallops Extremities: Warm, well-perfused, no lower extremity edema. 2+ distal pulses. CARDIOVASCULAR MEDICINE TESTING: ECG in the office 11/05/2023: Normal sinus rhythm with first-degree AV block 256 ms. Normal axis. No significant ST or T wave changes Cardiac Catheterization 01/17/2023: Post- Procedure Diagnosis: Patent stents in the proximal right coronary artery, proximal to mid LAD, and proximal ramus branch all with mild diffuse in-stent restenosis. Otherwise mild to moderate diffuse coronary disease noted. Right coronary dominant system. Normal LVEDP Hemodynamics: LVEDP: 7 mmHg LV - AORTA: No gradient. Coronary Angiography: Left Main: Mild diffuse disease Left Anterior Descending: Moderate to large caliber vessel. There are patent stents from the proximal to mid LAD with mild diffuse in-stent restenosis. The mid and mid distal vessel has mild diffuse disease. Circumflex: Large-caliber nondominant vessel extending into a distal obtuse marginal branch. The first obtuse marginal branch has mild to moderate focal ostial disease estimated 50-60% luminal narrowing. The remainder the vessel has mild diffuse disease. The AV groove circumflex has minimal disease. The distal obtuse marginal branch has mild diffuse disease Ramus: Large caliber vessel. The ostium of the vessel has mild focal disease estimated 40-50% luminal narrowing. There is a patent stent in the proximal segment with mild in-stent restenosis. Otherwise mild diffuse disease Right Coronary Artery: Large-caliber dominant vessel. There is a widely patent stent in the proximal vessel. The remainder the vessel has mild diffuse disease Echocardiogram 08/07/2023: - Exam indication: Atrial fibrillation - The left ventricle is normal in size. There is mild upper septal left ventricular hypertrophy. Left ventricular systolic function is normal. EF = 58 5% (2D biplane) Grade I left ventricular diastolic dysfunction. - The right ventricle is normal in size. Right ventricular systolic function is normal. - Exam was compared with the prior echocardiographic exam performed on 12/27/2021, no significant change. Echocardiogram 12/27/2021: - Technically difficult exam due to body habitus. - Exam indication: Pre-op clearance; S/p AF ablation - The left ventricle is small. There is moderate upper septal left ventricular hypertrophy. Left ventricular systolic function is normal. EF = 66 5% (2D biplane) Grade I left ventricular diastolic dysfunction. - The right ventricle is normal in size. Right ventricular systolic function is normal. - No significant valvular disease. - There is resting mild non-obstructive chordal ISELA IMPRESSION: Mr. Chahal is a 84 year old gentleman with extensive cardiac history and prior coronary interventions most recent 2005 with stenting of the LAD and RCA with recent cardiac catheterization January 2023 demonstrating patent stents and mild to moderate diffuse disease. He is also treated for paroxysmal atrial fibrillation with prior pulmonary vein isolation procedure and currently maintained on Tikosyn. He has a history of diabetes (voe-[id number]-[id number]) hypertension and dyslipidemia. He presents the office for routine follow-up. PLAN AND RECOMMENDATIONS: 1. Coronary artery disease of [place] artery of [place] heart with stable angina pectoris - ICD9: 414.01, 413.9, ICD10: I25.118 (primary diagnosis) Patient doing well without symptoms concerning for angina. Continue current medical therapy and risk factor modification - NITROGLYCERIN 0.4 MG SUBLINGUAL TABLET - COMPREHENSIVE METABOLIC PANEL - LIPID PANEL, FASTING 2. Paroxysmal atrial fibrillation (HCC) - ICD9: 427.31, ICD10: I48.0 Maintaining sinus rhythm. He is on Eliquis for stroke risk reduction. Follows with Dr. Argueta for electrophysiology. 3. Hypercholesteremia - ICD9: 272.0, ICD10: E78.00 Maintained on atorvastatin 40 mg daily. Recheck fasting lipid panel - LIPID PANEL, FASTING 4. Primary hypertension - ICD9: 401.9, ICD10: I10 Well-controlled on current regimen. 5. Pre-operative cardiovascular examination - ICD9: V72.81, ICD10: Z01.810 Patient is at low risk for planned low risk procedure. He should be off Eliquis for 72 hours prior to his procedure. Can resume Eliquis postprocedure as soon as medically safe from a surgical standpoint Anurag Bah MD documented in this encounter [facility] 03-23-2025 Note HNO ID: [id number] Author: ANURAG BAH MD Service: ? Author Type: Physician Type: Progress Notes Filed: 03/23/2025 12:23 Note Text: [facility] SECTION OF REGIONAL CARDIOLOGY Cardiology ([address]) [address] [facility] [id number] OUTPATIENT VISIT DATE 03/23/2025 PRIMARY CARE PHYSICIAN: Galindo Yuan [address] [place] [address] HISTORY OF PRESENT ILLNESS: Mr. Chahal is a 84 year old gentleman with known coronary artery disease and prior coronary intervention, paroxysmal atrial fibrillation currently maintained on Tikosyn, hypertension, dyslipidemia and diabetes [id number] who presents for routine follow-up. Patient continues to do well from a functional standpoint. He is limited by some back pain. He is scheduled for a spinal stimulator later this month. He reports that he had a stimulator for 5 days which significantly decreased his back pain and increased his functional capacity. He has not had symptoms concerning for CHF including PND, orthopnea, or lower extremity edema. He denies palpitations, lightheadedness, dizziness, or syncope. 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 Dr. Tee Clemons, Dermatology Basal cell carcinoma (BCC) of skin of face Mohs 04/2021 Cervical spondylosis 09/25/2022 Coronary atherosclerosis of unspecified type of vessel, [place] or graft 01/22/2006 moderate Diverticulosis of colon (without mention of hemorrhage) 07/18/2005 Dyslipidemia Dyspepsia and other specified disorders of function of stomach 07/18/2005 Chronic gastritis, Dyspepsia. Gastric ulcer, unspecified as acute or chronic, without mention of hemorrhage or perforation, with obstruction Generalized osteoarthrosis, unspecified site 07/18/2005 H. pylori infection 05/30/2011 HTN (hypertension) Hypertensive 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 4 chronic kidney disease, or unspecified chronic kidney disease 07/18/2005 Impaired fasting glucose 07/18/2005 Lipoprotein deficiencies 07/18/2005 Low HDL. Lumbago 08/26/2008 Dr. Odin Coon, [facility]. Rotator cuff tear, right 10/21/2012 Salmonella enteritis 08/2010 Type II or unspecified type diabetes mellitus without mention of complication, not stated as uncontrolled 07/08/2007 Unspecified essential hypertension 07/18/2005 PAST SURGICAL HISTORY Procedure Laterality Date ARTHROSCOPY KNEE DIAGNOSTIC W/WO SYNOVIAL BX SPX 11/2003 Arthroscopy, knee ARTHRP ACETBLR/PROX FEM PROSTC AGRFT/ALGRFT Right 08/07/2016 Hip replacement, total ARTHRP KNE CONDYLEANDPLATU MEDIALANDLAT COMPARTMENTS 2002 Knee replacement, total, left ARTHRP KNE CONDYLEANDPLATU MEDIALANDLAT COMPARTMENTS Left 10/01/2017 revision L TKA, [facility] CC ABLATION SVT 04/06/2017 EP study, ablation for A.fib. COLONOSCOPY FLX DX W/COLLJ SPEC WHEN PFRMD 12/24/2002 Colonoscopy COLONOSCOPY FLX DX W/COLLJ SPEC WHEN PFRMD 05/11/2011 Colonoscopy ESOPHAGOGASTRODUODENOSCOPY TRANSORAL DIAGNOSTIC 03/18/2007 EGD ESOPHAGOGASTRODUODENOSCOPY TRANSORAL DIAGNOSTIC 06/11/2007 EGD ESOPHAGOGASTRODUODENOSCOPY TRANSORAL DIAGNOSTIC 05/11/2011 EGD LOPEZ W/O FACETEC FORAMOT/DSC 1/2 VRT SGM CRV 2000 Laminectomy, cervical LAMINECTOMY W/O FFD > 2 VERT SEG LUMBAR 11/05/2008 lumbar fusion LAMINOTOMY (HEMILAMINECTOMY), WITH DECOMPRESSION OF NERVE ROOT(S) Bilateral 05/02/2019 Revision hemilaminectomies L2,L3,L4-L5 LEFT HEART CATH,PERCUTANEOUS 01/22/2006 Cardiac cath, L heart LEFT HEART CATH,PERCUTANEOUS 05/31/2011 Cardiac cath, L heart LEFT HEART CATH,PERCUTANEOUS 11/27/2011 Cardiac cath, L heart LEFT HEART CATH,PERCUTANEOUS 11/27/2013 Cardiac cath, L heart NEUROPLASTY AND/TRANSPOS MEDIAN NRV CARPAL TUNNE 1995 Carpal tunnel decomp R/L OPEN REPAIR OF ROTATOR CUFF ACUTE 1996 Rotator cuff repair, bilateral OPEN REPAIR OF ROTATOR CUFF CHRONIC Left 12/28/2014 Left shoulder open rotator cuff repair and Sub Ac decompression SHX TOTAL SHOULDER REVERSE Left 02/01/2022 Left reverse total shoulder arthroplasty TRANSCATH STENT INIT VESSEL,PERCUT 08/26/2009 Transcath stent init vessel percut TRANSCATH STENT INIT VESSEL,PERCUT 11/16/2010 Transcath stent init vessel percut SOCIAL HISTORY Social History Tobacco Use Smoking status: Never Smokeless tobacco: Never Vaping Use Vaping status: Never Used Substance Use Topics Alcohol use: No Drug use: No FAMILY HISTORY Problem Relation Age of Onset other (CVA) Mother d 89 stroke other (HTN) Mother other (CHF) M (more content not included)... [facility] 03-13-2025 Note HNO ID: [id number] Author: ATIF GRUBBS MD Service: ? Author Type: Physician Type: Progress Notes Filed: 03/13/2025 14:42 Note Text: MOHS MICROGRAPHIC OPERATIVE REPORT SERVICE DATE: 03/13/2025 SERVICE TIME: 11:00 AM LOCATION: { [place]:[facility]ERLY [facility],[id number] REFERRING PROVIDER: Miryam Henson [address] [facility] [address] PROCEDURE START TIME: 11:45 AM PROCEDURE END TIME: 12:30 PM SURGEON: Dr. Atif Grubbs RESIDENT: Dr. Pilar Joy CONSERVATION OR HERITAGE ARCHITECT: Marie Rangel MA ANTICOAGULANTS: Eliquis IMPLANTED DEVICES: Artificial Joints ANTIBIOTIC PROPHYLAXIS: Not required TRANSPLANT PATIENT: No PHOTOS: Photos taken VERIFICATION OF PROCEDURE: Procedure to be Performed: Mohs Surgery Patient Verified By: Name and Date of Site(s) Confirmed: Patient confirmed site from image in the EMR. Patient used mirror(s) to identify site(s). Patient verbalized agreement of surgical site(s). Site(s) Marked: Provider marking the site with patient involvement. Relevant documentation, images, implants or special equipment present: Yes SIGN IN COMMUNICATION: Completed Time Out: Team Confirms the Correct Patient, Correct Procedure, Correct Site(s) and Site Marked, Correct Position (if applicable). Time: 11:47 AM Affirmation of Time Out: Yes Sign out Discussion: Completed UNIVERSAL PROTOCOL / SAFETY CHECKLIST Procedure to be Performed: MOHS Sign In: A Moment of CARE was completed. Appropriate PPE (Personal Protective Equipment) worn by all providers involved with the procedure. Special equipment not required. Patient/Surrogate Stated/Verified: Patient name, Date of , Relevant allergies, and The intended procedure Time Out: Relevant labs, photos, and/or imaging studies have been reviewed. Intended patient and procedure match the source document(s) (e.g. consent, HANDP, associated studies [imaging, pathology]) match the intended patient and procedure. Consent obtained and matches the intended procedure. Yes. Correct side/site has been marked and visible. Medications required for this procedure are verified. Fire risk assessed and interventions discussed. Implants: are not applicable. Sign Out: Specimens are all correctly labeled and sent. All instruments, equipment, possible retained foreign bodies are accounted for. Yes. The post-procedure plan of care has been communicated to the patient or surrogate. 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 Ruth Perla Pre-op Size: 0.6 cm - 1 cm, (0.7 cm X 0.8 cm) Lymphadenopathy: None Indication for Mohs: Anatomic Location where lesion is prone to recur, Type of tumor, and Age of patient Location: Area M: (Includes Cheeks, Forehead, Scalp, Neck, Jawline and Pretibial Surface) Preparation: Chlorhexidine LAYER A The patient was positioned, prepped with alcohol and draped in the usual manner. Anesthesia was obtained with local infiltration. The clinically apparent tumor was then debulked with a curette. A 1-2 mm rim of tissue was marked circumferentially around the defect. The area thus outlined was excised deep to the subcutis. Hemostasis was achieved with electrocautery. The specimen was oriented, subdivided into 2 sections, chromacoded and submitted for horizontal frozen sections. The patient tolerated the procedure well and no complications were noted. Upon review of the horizontal frozen sections for Layer A, no residual tumor was identified in A1, A2 . CLOSURE Rationale for Second Intention Healing: Given the superficial nature of the defect, the defect was allowed to heal by secondary intent. Diagnosis: Surgical defect secondary to Mohs micrographic surgery on a Primary tumor type from the right superior forehead (location of tumor). Post-op Defect Size: 1.0 x 1.1 cm SECONDARY INTENTION HEALING CLOSURE: Given the lack of redundant tissue surrounding the defect, the wound was allowed to heal by secondary intention. Final Size: SEE DEFECT SCC Staging N/A N/A LOCAL ANESTHETIC: 3 cc 1% Lidocaine HCl with Epinephrine 1:100,000 ESTIMATED BLOOD LOSS: Less Than Minimal Unless Noted Here. COMPLICATIONS: None, patient tolerated procedure well. TOTAL OPERATIVE TIME: 60 Minutes POST OP MEDS: None POST OP CARE: Pressure Dressing applied consisting of Contact Layer: Petrolatum ointment and Non stick Telfa pad Absorbent Layer: Gelfoam, Gauze pad Liquid Adhesive to surrounding skin to adhere dressing. Outer Layer: Hypafix MOHS POST OP INSTRUCTIONS GIVEN WITH VERBAL UNDERSTANDING: Yes PATIENT DISCHARGED TO LUNCH COOK/NAME: self/driver guard FOLLOW UP: Pilar STOKES, served as the dermatology resident and assisted during the procedure. The documentation for this note was comp (more content not included)... [facility] 03-12-2025 Note HNO ID: [id number] Author: JUAN TORRES, ? Service: ? Author Type: Physician Type: Progress Notes Filed: 03/12/2025 08:38 Note Text: Last saw pcp: 12/23/24 Subjective: Patient presents to clinic c/o painful toenails. They state that the nails are especially painful with shoe gear and pressure. Patient reports that his right 5th toe is starting to bother him at night. He states he will often have to sleep with his foot out of the bed at night. No other pedal complaints at this time. Patient states no change in medications or medical history since last visit. Objective: Patient presents to clinic ambulating in boots Vasc: DP and PT pulses are palpable bilateral. CFT is less than 5 seconds bilateral. Skin temperature is warm to cool proximal to distal bilateral. There is mild edema or varicosities noted. Neuro: Protective sensation is intact to the foot and toes when tested with the 5.07 SWM bilateral. Vibratory sensation is decreased at the hallux IPJ bilateral. The hallux is downgoing bilateral. Derm: Nails 1-5 right and 1,2,4,5 are painful, discolored-yellow, thick, crumbly, dystrophic and with subungal debris. Skin is of normal turgor, texture and hair growth is decreased bilateral. There are callus along distal tuft of right 3rd toe. No ulcerations, scars, verruca or other lesions noted. Ortho: Muscle strength is 5/5 for all pedal groups tested. Ankle joint DF is decreased with the knee extended with no pain or crepitus noted. 1st MPJ ROM is decreased bilateral. Hammertoes are present to lesser toes of b/l feet Assessment: (B35.1) Onychomycosis (primary encounter diagnosis) (M79.674) Pain in toe of right foot (M79.675) Pain in toe of left foot (E11.49) Other diabetic neurological complication associated with type 2 diabetes mellitus (HCC) (L85.9) Hyperkeratosis (M20.41, M20.42) Hammer toes of both feet Plan: Patient was seen and evaluated. Nails 1-5 right and 1,2,4,5 left were debrided in length and thickness. Small bleed to right 3rd toe. Band aide applied. Recommend lambs wool between toes to prvent rubbing. Suspect pain in foot could be multiple factorial, not limited to hammertoes and neuropathy. Use lambs wool between toes. Could consider correction of hammertoes but given age and limited pain, will continue with conservative care. Betadine placed today in left 4th interspace. Apply as needed Diabetic shoes ordered. Patient will benefit from diabetic shoe given his neuropathy, presence of callus and presence of deformity of toes. Patient was instructed on the continued importance of diabetic foot care along with proper diet and keeping their blood sugar under control to prevent complications. Patient is to RTC in 3-4 months. Juan Torres DPM [facility] 03-12-2025 Note HNO ID: [id number] Author: HOLLI JOHNSON LPN Service: ? Author Type: LICENSED NURSE Type: Progress Notes Filed: 03/12/2025 08:38 Note Text: AMB ROOMING INTAKE FLOWSHEET DATA Pain Pain Level: 2 Pain Location: Toe Description: Tenderness Duration Units: Months Frequency: Intermittent Intervention/Comfort measure: Reposition, Relaxation Patient presents with: Right Foot - Established Patient, Pain, Diabetic Foot Care Left Foot - Established Patient, Pain, Diabetic Foot Care Holli Johnson LPN [facility] 02-24-2025 Telephone encounter Note Called pt to discuss biopsy results, no answer, v-mail left for pt to return call. [facility] 02-24-2025 Miscellaneous Notes Called pt to discuss biopsy results, no answer, v-mail left for pt to return call. ----- Message from Ruth Perla DO sent at 02/24/2025 11:05 AM EDT ----- A. Skin, right superior forehead, shave biopsy: - Basal cell carcinoma, superficial and nodular types- Mohs B. Skin, left jawline, shave biopsy: - Seborrheic keratosis- Benign C. Skin, right lateral elbow, shave biopsy: - Seborrheic keratosis- Benign documented in this encounter [facility] 02-24-2025 Telephone encounter Note ----- Message from Ruth Perla DO sent at 02/24/2025 11:05 AM EDT ----- A. Skin, right superior forehead, shave biopsy: - Basal cell carcinoma, superficial and nodular types- Mohs B. Skin, left jawline, shave biopsy: - Seborrheic keratosis- Benign C. Skin, right lateral elbow, shave biopsy: - Seborrheic keratosis- Benign [facility] 02-18-2025 Instructions Marry Tucker MA - 02/18/2025 9:46 AM EDT Images from the original note were not included. Department of Dermatology [address] [place] [address] CARE FOR YOUR SHAVE BIOPSY SITE Please follow these instructions for daily wound care: 1. Wash the area every day with gentle soap and water. 2. Apply a thin layer of Vaseline or Aquaphor to the wound site to keep the area slightly greasy at all time (this helps to prevent scabbing). Please do not use an old tub of ointment as this can introduce germs into your wound and cause infection. 3. Cover with a bandage and continue this daily process until the wound is healed. Do not leave a soiled or wet bandage on the wound. -Keep the area clean and dry with the bandage in place the day of surgery. -If you experience any bleeding, please apply pressure to the area for approximately 10 minutes. -You may shower, but do not soak in a bathtub, hot tub, pool, marmolejo, etc until after the wound has healed. -DO NOT USE NEOSPORIN OR BACITRACIN as there is a fairly high incidence of allergic response to these products. -You may experience some mild discomfort, redness, swelling, and/or a clear discharge from the wound after your procedure. Severe pain, worsening swelling, and foul-smelling discharge from the site are NOT to be expected. If you have concerns about how your wounds are healing, please send your provider a [email or web address] message or call [phone] and ask for a dermatology nurse. documented in this encounter [facility] 02-18-2025 Note HNO ID: [id number] Author: RUTH PERLA DO Service: ? Author Type: Physician Type: Progress Notes Filed: 02/18/2025 09:59 Note Text: Established Patient Visit Last Visit Date: 09/22/2024 CC: FBSE (waist upper patient) HPI: 84 year old male. 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 Skin as above. Physical Exam: Gen: AANDOx3, well appearing Skin exam performed including scalp, face, neck, chest, abdomen, back, arms, hands. Exam with noted findings of: -Scattered normal appearing brown macules and papules with reassuring features on dermoscopy -Trunk: scattered small red papules -Face, neck, trunk, UE with scattered polk-brown macules in sun-exposed distribution -Trunk, UE, LE with scattered warty brown stuck-on papules -5 mm erythematous patch on R superior forehead -1.1 cm irregular polk macule on L jaw line -5 mm irregular brown macule on R lateral elbow Assessment/Plan: ASSESSMENT/PLAN: 1. Skin exam, screening for cancer - ICD9: V76.43, ICD10: Z12.83 (primary diagnosis) -He declines FBSE and only wants upper body checked today -The ABCD's of melanoma were discussed. The patient is to perform monthly self exams and follow-up in dermatology for skin exams every 6 months. If any new lesions then the patient shall return sooner. Recommended SPF of 30 or greater. 2. Hx of nonmelanoma skin cancer - ICD9: V10.83, ICD10: Z85.828 -No evidence of recurrence at this time. Importance of monthly self skin checks emphasized. Recommend sun protection/avoidance, including hats and protective clothing, as well as sunscreen >=spf 30 qd. 3. Neoplasm of skin - ICD9: 239.2, ICD10: D49.2 -Shave Biopsy: The risks, benefits, indications, alternatives, and complications were discussed, and informed consent was obtained. Specifically, the expectation of a permanent scar and risk of possible infection were explained and understood. If the procedure were to be declined, the lesion could not be evaluated microscopically for diagnosis or abnormality, including cancer. Verbal consent was obtained. -See procedure notes. -SURGICAL PATHOLOGY 4. Multiple benign nevi - ICD9: 216.9, ICD10: D22.9 -Explanation of these lesions were dicussed. Benign reassurance was given. -If lesion should change, grow, darken, bleed, etc then discussed with patient to call and return to the office. 5. Lentigines - ICD9: 709.09, ICD10: L81.4 -Explanation of these lesions were dicussed. Benign reassurance was given. 6. 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 Benign reassurance was given. 7. Seborrheic keratosis - ICD9: 702.19, ICD10: L82.1 -Explanation of these lesions were dicussed. Benign reassurance was given. Procedures: Tangential biopsy via shave technique: A.) R superior forehead r/o ak vs scc vs bcc B) L jaw line r/o lentigo vs lentigo maligna C) R lateral elbow r/o an vs sk - Tangential biopsy by shave. The risks, benefits, indications, alternatives, and complications were discussed, and informed consent was obtained. Specifically, the expectation of a permanent scar and risk of possible infection were explained and understood. If the procedure were to be declined, the lesion could not be evaluated microscopically for diagnosis or abnormality, including cancer. In accordance with the [facility] policy, pre-procedure time out was performed to verify the correct patient, procedure, site, positioning, and implant(s) or special equipment. Site(s) were cleaned with alcohol and anesthetized with 1% lidocaine with epinephrine. Tangential biopsy via shave technique was performed. Hemostasis was obtained with aluminum chloride and/or electrocautery. Petrolatum and bandage were applied. The patient tolerated the procedure well without complications and with minimal blood loss. Written wound care instructions were reviewed and given. Specimen(s) sent to pathology. UNIVERSAL PROTOCOL / SAFETY CHECKLIST Procedure to be Performed: shave biopsy Sign In: A Moment of CARE was completed. Appropriate PPE (Personal Protective Equipment) worn by all providers involved with the procedure. Special equipment utilized . Patient/Surrogate Stated/Verified: Time Out: Relevant labs, photos, and/or imaging studies Intended patient and procedure match the s (more content not included)... [facility] 02-18-2025 History of Present illness Narrative Established Patient Visit Last Visit Date: 09/22/2024 CC: FBSE (waist upper patient) HPI: 84 year old male. 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 Skin as above. Physical Exam: Gen: A&Ox3, well appearing Skin exam performed including scalp, face, neck, chest, abdomen, back, arms, hands. Exam with noted findings of: -Scattered normal appearing brown macules and papules with reassuring features on dermoscopy -Trunk: scattered small red papules -Face, neck, trunk, UE with scattered polk-brown macules in sun-exposed distribution -Trunk, UE, LE with scattered warty brown stuck-on papules -5 mm erythematous patch on R superior forehead -1.1 cm irregular polk macule on L jaw line -5 mm irregular brown macule on R lateral elbow Assessment/Plan: ASSESSMENT/PLAN: 1. Skin exam, screening for cancer - ICD9: V76.43, ICD10: Z12.83 (primary diagnosis) -He declines FBSE and only wants upper body checked today -The ABCD's of melanoma were discussed. The patient is to perform monthly self exams and follow-up in dermatology for skin exams every 6 months. If any new lesions then the patient shall return sooner. Recommended SPF of 30 or greater. 2. Hx of nonmelanoma skin cancer - ICD9: V10.83, ICD10: Z85.828 -No evidence of recurrence at this time. Importance of monthly self skin checks emphasized. Recommend sun protection/avoidance, including hats and protective clothing, as well as sunscreen >=spf 30 qd. 3. Neoplasm of skin - ICD9: 239.2, ICD10: D49.2 -Shave Biopsy: The risks, benefits, indications, alternatives, and complications were discussed, and informed consent was obtained. Specifically, the expectation of a permanent scar and risk of possible infection were explained and understood. If the procedure were to be declined, the lesion could not be evaluated microscopically for diagnosis or abnormality, including cancer. Verbal consent was obtained. -See procedure notes. -SURGICAL PATHOLOGY 4. Multiple benign nevi - ICD9: 216.9, ICD10: D22.9 -Explanation of these lesions were dicussed. Benign reassurance was given. -If lesion should change, grow, darken, bleed, etc then discussed with patient to call and return to the office. 5. Lentigines - ICD9: 709.09, ICD10: L81.4 -Explanation of these lesions were dicussed. Benign reassurance was given. 6. 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 Benign reassurance was given. 7. Seborrheic keratosis - ICD9: 702.19, ICD10: L82.1 -Explanation of these lesions were dicussed. Benign reassurance was given. Procedures: Tangential biopsy via shave technique: A.) R superior forehead r/o ak vs scc vs bcc B) L jaw line r/o lentigo vs lentigo maligna C) R lateral elbow r/o an vs sk - Tangential biopsy by shave. The risks, benefits, indications, alternatives, and complications were discussed, and informed consent was obtained. Specifically, the expectation of a permanent scar and risk of possible infection were explained and understood. If the procedure were to be declined, the lesion could not be evaluated microscopically for diagnosis or abnormality, including cancer. In accordance with the [facility] policy, pre-procedure time out was performed to verify the correct patient, procedure, site, positioning, and implant(s) or special equipment. Site(s) were cleaned with alcohol and anesthetized with 1% lidocaine with epinephrine. Tangential biopsy via shave technique was performed. Hemostasis was obtained with aluminum chloride and/or electrocautery. Petrolatum and bandage were applied. The patient tolerated the procedure well without complications and with minimal blood loss. Written wound care instructions were reviewed and given. Specimen(s) sent to pathology. UNIVERSAL PROTOCOL / SAFETY CHECKLIST Procedure to be Performed: shave biopsy Sign In: A Moment of CARE was completed. Appropriate PPE (Personal Protective Equipment) worn by all providers involved with the procedure. Special equipment utilized . Patient/Surrogate Stated/Verified: Time Out: Relevant labs, photos, and/or imaging studies Intended patient and procedure match the source document(s) (e.g. consent, H&P, associated studies [imaging, pathology]) Consent obtained and matches the intended procedure. Correct side/site Medications required for this procedure Fire risk assessed Implants: Correct implant(s) confirmed including size and side. Expiration date(s) reviewed. Sign Out: Specimens All instruments, equipment, possible retained foreign bodies are accounted for. The post-procedure plan of care has been communicated . RTC 6 month skin check. The patient is seen and examined by Dr. Perla and the following reflects his/her service. Scribed by Marry Tucker CMA. I agree with the Chief Complaint, ROS, and Past Histories independently gathered by the clinical program support assistant and the remaining scribed note accurately describes my personal service to the patient. Ruth Perla DO documented in this encounter [facility] 02-04-2025 History of Present illness Narrative [facility] Neurosurgery Diagnosis Diagnoses and all orders for this visit: Postlaminectomy syndrome of lumbar region Patient Discussion/Summary Jg has postlaminectomy syndrome. His pain has been refractory to multimodal management including physical therapy, injections and medications. He underwent a successful trial of spinal cord stimulation using the Nevro system, with up to 80% improvement in his baseline pain, as well as significant improvement in his sleep and function. As such, he is an excellent candidate for permanent implantation of a percutaneous Nevro spinal cord stimulator. The procedure was discussed in detail and all of their questions were answered. We also discussed the risks of the procedure including, but not limited to the risks of bleeding, infection, CSF leak, hardware malfunction, and neurological injury including, but not limited to increased pain, numbness, weakness, paralysis or stroke. The risks of an anesthetic including cardiorespiratory compromise, coma or were touched upon, and will be discussed in greater detail by the anesthesiologist. History of Present Illness Chief Complaint: No chief complaint on file. HPI: Jg Chahal is a 84 y.o. male referred by Dr. Bowling for chronic back and LLE pain. Also with hx of HTN, A-fib, CAD, DM2 and kidney insufficiency and nocturnal leg cramps. His pain is in the left lumbar region and gluteal region and radiates to the left lower extremity along the posterior aspect to the level of the posterior thigh. It's aching in nature. Pain is exacerbated by standing and walking and mitigated by sitting. He underwent a Nevro scs trial on 01/[address] Bowling at [facility] where he received 80% improvement of pain. Of note, pain psych eval done on 12/03 with Silvia GARCÍA: As noted in HPI. Previous History No past medical history on file. No past surgical history on file. No family history on file. Not on File No current outpatient medications Vitals There were no vitals taken for this visit. Results An MRI of the thoracic spine from January 2025 was reviewed. This demonstrates multilevel degenerative changes without significant central or foraminal stenosis. 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 documented in this encounter [facility] Work Phone: 02-03-2025 Telephone encounter Note Received a secure email from Marion ([employer]) that the patient has decided to have the permanent SCS implanted by Dr. Ochoa at . She clarified, since the Clinic, unfortunately, does not have access to the newest technology right now and we are not sure when they will have it. Dr. Bowling is aware of this, and is ok with it as it is what s best for the patients in the long run! I already spoke with Dr. Ochoa s office and they just requested that the clinical notes be faxed over to them, particularly all the work up, neuropsych, etc. All OV notes related to SCS, lumbar and thoracic XR/CT/MRI, and psych notes have been faxed to Dr. Ochoa's office at [phone] with confirmation received. Email has been forwarded to [facility] Imaging department to push over images to . Informed Marion (Rene [employer]) via email that records have been faxed and images will be pushed to with confirmation received. [facility] 02-03-2025 Miscellaneous Notes Received a secure email from Marion (Rene [employer]) that the patient has decided to have the permanent SCS implanted by Dr. Ochoa at . She clarified, since the Clinic, unfortunately, does not have access to the newest technology right now and we are not sure when they will have it. Dr. Bowling is aware of this, and is ok with it as it is what s best for the patients in the long run! I already spoke with Dr. Ochoa s office and they just requested that the clinical notes be faxed over to them, particularly all the work up, neuropsych, etc. All OV notes related to SCS, lumbar and thoracic XR/CT/MRI, and psych notes have been faxed to Dr. Ochoa's office at [phone] with confirmation received. Email has been forwarded to [facility] Imaging department to push over images to . Informed Marion (Rene Easley) via email that records have been faxed and images will be pushed to with confirmation received. documented in this encounter [facility] 01-23-2025 History of Present illness Narrative Radiology Service Progress Note PATIENT NAME: Jg Chahal DATE OF SERVICE: January 23, 2025 TIME: 8:04 AM PATIENT IDENTITY VERIFICATION COMPLETED USING TWO (2) IDENTIFIERS: Name and Date of confirmed by patient verbally. FALL SCREENING: Has the patient had 2 falls in the last year or 1 fall with injury or currently using an Ambulatory Assistive Device (Walker, Cane, Wheelchair, Crutches, etc.)? Yes, Patient High Risk for Falls What interventions were put in place to prevent falls during this visit? Instructed Patient to Call for Help if Needed, Offered Assistance with Transfers/Clothing, Instructed Patient to Remain Seated (Not on Exam Table) Until Exam, and Increased Observations by Caregivers PATIENT GENDER DATA: Assigned male at PATIENT RELEVANT IMPLANT DATA REVIEWED: Yes PATIENT PRESENTS WITH AN IMPLANTABLE OR ATTACHED LIBRARY SPECIALIST: No RADIOLOGY DEPARTMENT: MR; Exam(s) Completed: Spine: Thoracic spine PERIPHERAL IV DATA: Not applicable SIGNED BY: RT Lebron(Magali) January 23, 2025 8:04 AM documented in this encounter [facility] 01-23-2025 Note HNO ID: [id number] Author: KELLI BLACKMON RT(R) Service: ? Author Type: Technologist Type: Progress Notes Filed: 01/23/2025 08:04 Note Text: Radiology Service Progress Note PATIENT NAME: Jg Chahal DATE OF SERVICE: January 23, 2025 TIME: 8:04 AM PATIENT IDENTITY VERIFICATION COMPLETED USING TWO (2) IDENTIFIERS: Name and Date of confirmed by patient verbally. FALL SCREENING: Has the patient had 2 falls in the last year or 1 fall with injury or currently using an Ambulatory Assistive Device (Walker, Cane, Wheelchair, Crutches, etc.)? Yes, Patient High Risk for Falls What interventions were put in place to prevent falls during this visit? Instructed Patient to Call for Help if Needed, Offered Assistance with Transfers/Clothing, Instructed Patient to Remain Seated (Not on Exam Table) Until Exam, and Increased Observations by Caregivers PATIENT GENDER DATA: Assigned male at PATIENT RELEVANT IMPLANT DATA REVIEWED: Yes PATIENT PRESENTS WITH AN IMPLANTABLE OR ATTACHED LIBRARY SPECIALIST: No RADIOLOGY DEPARTMENT: MR; Exam(s) Completed: Spine: Thoracic spine PERIPHERAL IV DATA: Not applicable SIGNED BY: RT Lebron(R) January 23, 2025 8:04 AM [facility] 01-21-2025 Note HNO ID: [id number] Author: RENAN BOWLING MD Service: ? Author Type: Physician Type: Progress Notes Filed: 01/21/2025 11:31 Note Text: [facility] Date: January 21, 2025 - 10:24 AM Chief Complaint: Back and leg pain SUBJECTIVE: Mr. Chahal presents to the [facility] for a follow up appointment regarding chronic back and predominant left lower extremity pain. The patient is here for follow-up for removal of the spinal cord stimulator leads. The patient had a trial for 7 days. Overall he states up to 80% improvement of pain. He also states he was able to engage in more purposeful activities. The pain is described as just hurts and is rated as 2 on a scale of 0-10. Symptoms interfere with physical activity, walking, and sitting. The pain is exacerbated by movement, sitting, and standing. The pain is mitigated by lying down staight. REVIEW OF SYSTEMS: Constitutional: (-) Fever (-) Night Sweats (-) Weight Gain (-) Weight Loss (-) Fatigue Cardiovascular: (-) Chest Pain (-) Palpitations (-) Lightheadedness (-) Swelling of Ankles (-) Hx Heart Surgery Respiratory: (-) Shortness of Breath (-) Cough (-) Wheezing (-) Snoring Gastrointestinal: (-) Incontinence (-) Abdominal Pain (-) Diarrhea (-) Constipation (-) Nausea/Vomiting (-) Heart Burn Endocrine: (-) Thyroid Disorder (-) Diabetes Hematologic: (-) Prolonged Bleeding (-) Easy Bruising Genitourinary: (-) Incontinence (-) Frequency (-) Urinary Urgency Skin: (-) Rashes (-) Itching (-) Other Lesions Neurologic: (-) Headache (-) Double Vision (-) Confusion (-) Paralysis Psychiatric: (-) Depression (-) Anxiety (-) Delusions (-) Hallucinations (-) Personal History of Alcohol or Substance Abuse (-) Family History of Alcohol or Substance Abuse PROMIS 12/24/2024 PROMIS CAT Pain Interference PROMIS Adult Short Form-Global Health Score (Mental) 48.3 (Very Good) 02/13/2024 02/14/2023 PROMIS CAT Physical Function T-Score 38 (moderate dysfunction) 47 (within normal limits) Percentile 12 38 Proxy-reported Percentiles provide an indication of how a patient?s score ranks in relation to the [place] general population. > 31st percentile is within normal limits or better * < 31st percentile is at least ? 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 Dr. Tee Clemons, Dermatology Basal cell carcinoma (BCC) of skin of face Mohs 04/2021 Cervical spondylosis 09/25/2022 Coronary atherosclerosis of unspecified type of vessel, [place] or graft 01/22/2006 moderate Diverticulosis of colon (without mention of hemorrhage) 07/18/2005 Dyslipidemia Dyspepsia and other specified disorders of function of stomach 07/18/2005 Chronic gastritis, Dyspepsia. Gastric ulcer, unspecified as acute or chronic, without mention of hemorrhage or perforation, with obstruction Generalized osteoarthrosis, unspecified site 07/18/2005 H. pylori infection 05/30/2011 HTN (hypertension) Hypertensive 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 4 chronic kidney disease, or unspecified chronic kidney disease 07/18/2005 Impaired fasting glucose 07/18/2005 Lipoprotein deficiencies 07/18/2005 Low HDL. Lumbago 08/26/2008 Dr. Odin Coon, [facility]. Rotator cuff tear, right 10/21/2012 Salmonella enteritis 08/2010 Type II or unspecified type diabetes mellitus without mention of complication, not stated as uncontrolled 07/08/2007 Unspecified essential hypertension 07/18/2005 PAST SURGICAL HISTORY Procedure Laterality Date ARTHROSCOPY KNEE DIAGNOSTIC W/WO SYNOVIAL BX SPX 11/2003 Arthroscopy, knee ARTHRP ACETBLR/PROX FEM PROSTC AGRFT/ALGRFT Right 08/07/2016 Hip replacement, total ARTHRP KNE CONDYLEANDPLATU MEDIALANDLAT COMPARTMENTS 2002 Knee replacement, total, left ARTHRP KNE CONDYLEANDPLATU MEDIALANDLAT COMPARTMENTS Left 10/01/2017 revision L TKA, [facility] CC ABLATION SVT 04/06/2017 EP study, ablation for A.fib. COLONOSCOPY FLX DX W/COLLJ SPEC WHEN PFRMD 12/24/2002 Colonoscopy COLONOSCOPY FLX DX W/COLLJ SPEC WHEN PFRMD 05/11/2011 Colonoscopy ESOPHAGOGASTRODUODENOSCOPY TRANSORAL DIAGNOSTIC 03/18/2007 EGD ESOPHAGOGASTRODUODENOSCOPY TRANSORAL DIAGNOSTIC 0 (more content not included)... [facility] 01-21-2025 History of Present illness Narrative Images from the original note were not included. [facility] Date: January 21, 2025 - 10:24 AM Chief Complaint: Back and leg pain SUBJECTIVE: Mr. Chahal presents to the [facility] for a follow up appointment regarding chronic back and predominant left lower extremity pain. The patient is here for follow-up for removal of the spinal cord stimulator leads. The patient had a trial for 7 days. Overall he states up to 80% improvement of pain. He also states he was able to engage in more purposeful activities. The pain is described as just hurts and is rated as 2 on a scale of 0-10. Symptoms interfere with physical activity, walking, and sitting. The pain is exacerbated by movement, sitting, and standing. The pain is mitigated by lying down staight. REVIEW OF SYSTEMS: Constitutional: (-) Fever (-) Night Sweats (-) Weight Gain (-) Weight Loss (-) Fatigue Cardiovascular: (-) Chest Pain (-) Palpitations (-) Lightheadedness (-) Swelling of Ankles (-) Hx Heart Surgery Respiratory: (-) Shortness of Breath (-) Cough (-) Wheezing (-) Snoring Gastrointestinal: (-) Incontinence (-) Abdominal Pain (-) Diarrhea (-) Constipation (-) Nausea/Vomiting (-) Heart Burn Endocrine: (-) Thyroid Disorder (-) Diabetes Hematologic: (-) Prolonged Bleeding (-) Easy Bruising Genitourinary: (-) Incontinence (-) Frequency (-) Urinary Urgency Skin: (-) Rashes (-) Itching (-) Other Lesions Neurologic: (-) Headache (-) Double Vision (-) Confusion (-) Paralysis Psychiatric: (-) Depression (-) Anxiety (-) Delusions (-) Hallucinations (-) Personal History of Alcohol or Substance Abuse (-) Family History of Alcohol or Substance Abuse PROMIS 12/24/2024 PROMIS CAT Pain Interference PROMIS Adult Short Form-Global Health Score (Mental) 48.3 (Very Good) 02/13/2024 02/14/2023 PROMIS CAT Physical Function T-Score 38 (moderate dysfunction) 47 (within normal limits) Percentile 12 38 Proxy-reported Percentiles provide an indication of how a patient s score ranks in relation to the [place] general population. > 31st percentile is within normal limits or better * < 31st percentile is at least SD worse than population, which may be clinically relevant < 16th percentile is at least 1 SD worse than population and warrants attention PAST MEDICAL HISTORY Diagnosis Date Abdominal pain, right lower quadrant 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 Dr. Tee Clemons, Dermatology Basal cell carcinoma (BCC) of skin of face Mohs 04/2021 Cervical spondylosis 09/25/2022 Coronary atherosclerosis of unspecified type of vessel, [place] or graft 01/22/2006 moderate Diverticulosis of colon (without mention of hemorrhage) 07/18/2005 Dyslipidemia Dyspepsia and other specified disorders of function of stomach 07/18/2005 Chronic gastritis, Dyspepsia. Gastric ulcer, unspecified as acute or chronic, without mention of hemorrhage or perforation, with obstruction Generalized osteoarthrosis, unspecified site 07/18/2005 H. pylori infection 05/30/2011 HTN (hypertension) Hypertensive 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 4 chronic kidney disease, or unspecified chronic kidney disease 07/18/2005 Impaired fasting glucose 07/18/2005 Lipoprotein deficiencies 07/18/2005 Low HDL. Lumbago 08/26/2008 Dr. Odin Coon, [facility]. Rotator cuff tear, right 10/21/2012 Salmonella enteritis 08/2010 Type II or unspecified type diabetes mellitus without mention of complication, not stated as uncontrolled 07/08/2007 Unspecified essential hypertension 07/18/2005 PAST SURGICAL HISTORY Procedure Laterality Date ARTHROSCOPY KNEE DIAGNOSTIC W/WO SYNOVIAL BX SPX 11/2003 Arthroscopy, knee ARTHRP ACETBLR/PROX FEM PROSTC AGRFT/ALGRFT Right 08/07/2016 Hip replacement, total ARTHRP KNE CONDYLE&PLATU MEDIAL&LAT COMPARTMENTS 2002 Knee replacement, total, left ARTHRP KNE CONDYLE&PLATU MEDIAL&LAT COMPARTMENTS Left 10/01/2017 revision L TKA, [facility] CC ABLATION SVT 04/06/2017 EP study, ablation for A.fib. COLONOSCOPY FLX DX W/COLLJ SPEC WHEN PFRMD 12/24/2002 Colonoscopy COLONOSCOPY FLX DX W/COLLJ SPEC WHEN PFRMD 05/11/2011 Colonoscopy ESOPHAGOGASTRODUODENOSCOPY TRANSORAL DIAGNOSTIC 03/18/2007 EGD ESOPHAGOGASTRODUODENOSCOPY TRANSORAL DIAGNOSTIC 06/11/2007 EGD ESOPHAGOGASTRODUODENOSCOPY TRANSORAL DIAGNOSTIC 05/11/2011 EGD LOPEZ W/O FACETEC FORAMOT/DSC 1/2 VRT SGM CRV 2000 Laminectomy, cervical LAMINECTOMY W/O FFD > 2 VERT SEG LUMBAR 11/05/2008 lumbar fusion LAMINOTOMY (HEMILAMINECTOMY), WITH DECOMPRESSION OF NERVE ROOT(S) Bilateral 05/02/2019 Revision hemilaminectomies L2,L3,L4-L5 LEFT HEART CATH,PERCUTANEOUS 01/22/2006 Cardiac cath, L heart LEFT HEART CATH,PERCUTANEOUS 05/31/2011 Cardiac cath, L heart LEFT HEART CATH,PERCUTANEOUS 11/27/2011 Cardiac cath, L heart LEFT HEART CATH,PERCUTANEOUS 11/27/2013 Cardiac cath, L heart NEUROPLASTY &/TRANSPOS MEDIAN NRV CARPAL TUNNE 1995 Carpal tunnel decomp R/L OPEN REPAIR OF ROTATOR CUFF ACUTE 1996 Rotator cuff repair, bilateral OPEN REPAIR OF ROTATOR CUFF CHRONIC Left 12/28/2014 Left shoulder open rotator cuff repair and Sub Ac decompression SHX TOTAL SHOULDER REVERSE Left 02/01/2022 Left reverse total shoulder arthroplasty TRANSCATH STENT INIT VESSEL,PERCUT 08/26/2009 Transcath stent init vessel percut TRANSCATH STENT INIT VESSEL,PERCUT 11/16/2010 Transcath stent init vessel percut ALLERGIES Allergen Reactions Adhesive Hives Codeine HEART PALPITATIONS Darvocet-N 100 [Pro* Intolerance Heart racing Latex Hives Meperidine Hcl Current Outpatient Medications Medication Sig baclofen 10 mg tablet Take 1 tablet by mouth at bedtime as needed (leg cramps.). losartan (COZAAR) 50 mg tablet Take 1 tablet by mouth once daily. metoprolol succinate ER (TOPROL XL) 25 mg 24 hr tablet Take 1 tablet by mouth once daily. apixaban (ELIQUIS) 5 mg tab(s) Take 1 tablet by mouth two times a day. amLODIPine (NORVASC) 2.5 mg tablet Take 1 tablet by mouth once daily. dofetilide (TIKOSYN) 250 mcg capsule Take 1 capsule by mouth two times a day. pantoprazole DR (PROTONIX) 40 mg tablet TAKE ONE TABLET BY MOUTH DAILY ON EMPTY STOMACH ONE-HALF HOUR BEFORE BREAKFAST atorvastatin (LIPITOR) 40 mg tablet Take 1 tablet by mouth once daily. clotrimazole-betamethasone (LOTRISONE) cream Apply to affected area twice daily. APPLY TO AFFECTED AREA nitroglycerin sublingual (NITROSTAT) 0.4 mg SL tablet Dissolve 1 tablet under the tongue every 5 minutes as needed for chest pain. blood sugar diagnostic (BLOOD GLUCOSE TEST) test strip Test blood sugar(s) 1 times daily. Dx: Type 2 DM - Controlled E11.42 Insulin: No TENS unit and electrodes cmpk Us as instructed. melatonin 3 mg tablet Take 1 tablet by mouth daily at bedtime. Lancets lancets Test blood sugar(s) 1 times daily. Dx: Type 2 DM - Controlled E11.42 Insulin: No CPAP Patient requesting new DME. Currently has a PAP device (2015 -- may be due for new device). Please fit with a Wisp (currently with Dream wisp and causing discomfort on top of head). Lifetime supplies. Amoxicillin 500 mg tablet Take 4 tablets by mouth as needed (1 hour before the procedure). docusate sodium (COLACE) 100 mg capsule AT BEDTIME magnesium oxide (MAG-OX) 400 mg tablet Take 1 tablet by mouth once daily. Cholecalciferol, Vitamin D3, 1,000 unit cap Take 1 capsule by mouth once daily. vitamin b complex (B COMPLETE) ORAL Tab Take 1 tablet by mouth once daily. No current facility-administered medications for this visit. I have reviewed the nurses notes and I am aware of the family/social history. Since the last evaluation the medical history has not changed. PDMP website checked and validated. All prescriptions have been APPROPRIATELY filled. No suspicious activity was identified. 01/21/2025 by Renan Bowling MD Narcotic Agreement reviewed and signed?: N/A on January 21, 2025 Urine Panel: No results found for: UQCANN, UQBNZL, PHQ6PYY, UQAMPH, UQMAMP, UQBUPRE, UQNORBUP, UQMTHD, UQEDDP, UQTRAM, UQDTRM, UQFNTL, UQNFTL, UQCODE, UQMORP, UQDCDN, UQHCOD, UQOXYC, UQHMOR, UQOXYM, UQCREA, UQPH, UQSPGR, UQOXID, UQSPQ The pain panel was N/A PHYSICAL EXAMINATION: Performed in conjunction with observation. The patient was alert and oriented x3. The patient was in no acute distress. Lungs: Clear, negative for dyspnea or distress. CVR: Regular Rate. Negative for SOB or peripheral edema. Neck: Supple. The range of motion was intact. Back: Range of motion of the trunk was intact. The spinal cord spinal leads were removed intact. The puncture sites were clean. There is no sign of any infections. Extremities: no reported edema or erythema. ASSESSMENT: Chronic midline thoracic back pain (primary encounter diagnosis) Status post spinal cord stimulation trial. PLAN: Prior available imaging studies were reviewed. Findings were discussed. Injection history was reviewed. Medication use and compliance were reviewed. 1. The patient had up to 80% improvement of pain and was able to engage in more activities. Recommend proceeding with permanent implantation of the spinal cord stimulator. 2. MRI of the thoracic spine was ordered for preop assessment. 3. No new medication was prescribed. 4. Encouraged regular home exercise program. 5) F/U in as needed basis The treatment plan was discussed with the patient during the office visit and they verbalized an understanding of it. I have discussed and confirmed the above treatment plan with the patient and I have reviewed the nurses notes and I am aware of the family/social history. I have confirmed ROS findings. Renan Bwoling MD cc: Dr. Galindo Yuan MD cc: No referring provider defined for this encounter. Phone: N/A Fax: Results of consultation to be transmitted via electronic medical record for those providers who practice within [facility] or with access to [employer] via [employer] Connect, or via letter. 1. This document has been created with the use of voice recognition technology. It may contain inaccuracies: (e.g. misspellings, inaccurate syntax or word sense) that have escaped review. 2. The nurse practitioner, nursing staff and medical assistants are a major part of YOUR TREATMENT TEAM and will be handling your phone calls and inquiries, if any. Unless explicitly told otherwise at the time of your office visit, your study results and ensuing treatment plans will be discussed during your follow-up appointment. If you do not have a follow-up appointment and wish to discuss any issues, please set up an appointment. 3. It is my practice to not fill disability or any other insurance-related forms/documentation. All of the office notes, study results, and other pertinent documentation generated as part of your evaluation will be available to you and to your Primary Care Physician (PCP). Use of this material to complete such forms will be at the discretion of your PCP/referring physician. documented in this encounter [facility] 01-14-2025 Note HNO ID: [id number] Author: SONIA OCONNELL RN Service: Nursing Author Type: Registered Nurse Type: Nursing Progress Note Filed: 01/14/2025 06:45 Note Text: Other: pt ready for OR, call light in reach, family called to bedside [facility] 01-02-2025 Telephone encounter Note Images from the original note were not included. Procedure: SCS Trial Procedure Date: 01/14/2025 Auth Status: DENIED Denial Rationale: Based on [employer] Supplemental Guidelines for Spinal Cord Stimulation and the information we have about your condition, you don't meet both of the criteria for a dorsal column stimulator device. The criteria are: (1) You have a diagnosis of one of the following: (a) failed back surgery syndrome, (b) complex regional pain syndrome, (c) ongoing and intense ischemic limb pain in an arm or leg due to blockages in your blood vessels (peripheral vascular disease) that can't be fixed with surgery, or (d) this is a last option to treat your moderate to severe nerve pain you've had for 12 or more months. And (2) you have all of the following: (a) screening completed by a team of healthcare providers from different medical specialties, (b) no untreated drug addiction problems, (c) clearance from a psychiatrist, psychologist, or other qualified mental health professional (such as master's or licensed clinical clinical social work therapist) to receive this device, (d) tried other ways to treat your pain and failed, (e) there is a known medical reason for your pain, and (f) you scored 21% or more on a standard disability test (Oswestry Disability Index) to evaluate your pain. 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 Hernandez 08/27/2024, Dr. Bowling 10/01/2024, Neurology - Dr. Manning 01/18/2024 No untreated drug addiction problems: Narc Score 010 Clearance from psychiatrist, psychologist, or other qualified mental health professional: Dr. Pop appointment 12/03/2024 with approval to proceed Tried other ways to treat pain and failed: s/p lumbar fusion, injections Known medical reason for your pain: Lumbar MRI 02/19/2024 (Multilevel degenerative changes resulting in primarily foraminal stenosis, most pronounced and advanced bilaterally at L5-S1 as well as moderate to advanced bilaterally spanning L2-L5.) Standard disability test score 21% or more Appeal faxed to [phone] (EXPEDITED). Secure email sent to [employer] Denials Support Team notifying of faxed appeal. Awaiting determination. [facility] 01-02-2025 Miscellaneous Notes Images from the original note were not included. Procedure: SCS Trial Procedure Date: 01/14/2025 Auth Status: DENIED Denial Rationale: Based on [employer] Supplemental Guidelines for Spinal Cord Stimulation and the information we have about your condition, you don't meet both of the criteria for a dorsal column stimulator device. The criteria are: (1) You have a diagnosis of one of the following: (a) failed back surgery syndrome, (b) complex regional pain syndrome, (c) ongoing and intense ischemic limb pain in an arm or leg due to blockages in your blood vessels (peripheral vascular disease) that can't be fixed with surgery, or (d) this is a last option to treat your moderate to severe nerve pain you've had for 12 or more months. And (2) you have all of the following: (a) screening completed by a team of healthcare providers from different medical specialties, (b) no untreated drug addiction problems, (c) clearance from a psychiatrist, psychologist, or other qualified mental health professional (such as master's or licensed clinical clinical social work therapist) to receive this device, (d) tried other ways to treat your pain and failed, (e) there is a known medical reason for your pain, and (f) you scored 21% or more on a standard disability test (Oswestry Disability Index) to evaluate your pain. 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 Hernandez 08/27/2024, Dr. Bowling 10/01/2024, Neurology - Dr. Manning 01/18/2024 No untreated drug addiction problems: Narc Score 010 Clearance from psychiatrist, psychologist, or other qualified mental health professional: Dr. Pop appointment 12/03/2024 with approval to proceed Tried other ways to treat pain and failed: s/p lumbar fusion, injections Known medical reason for your pain: Lumbar MRI 02/19/2024 (Multilevel degenerative changes resulting in primarily foraminal stenosis, most pronounced and advanced bilaterally at L5-S1 as well as moderate to advanced bilaterally spanning L2-L5.) Standard disability test score 21% or more Appeal faxed to [phone] (EXPEDITED). Secure email sent to [employer] Denials Support Team notifying of faxed appeal. Awaiting determination. documented in this encounter [facility] 12-24-2024 Telephone encounter Note The following approved medication requests have been transmitted electronically. Requested Prescriptions Signed Prescriptions Disp Refills baclofen 10 mg tablet 30 tablet 0 Sig: Take 1 tablet by mouth at bedtime as needed (leg cramps.). Authorizing Provider: GALINDO YUAN MD [facility] 12-24-2024 Miscellaneous Notes The following approved medication requests have been transmitted electronically. Requested Prescriptions Signed Prescriptions Disp Refills baclofen 10 mg tablet 30 tablet 0 Sig: Take 1 tablet by mouth at bedtime as needed (leg cramps.). Authorizing Provider: GALINDO YUAN MD Renetta smalls from [facility] calls and states that insurance will not cover methocarbamol. Insurance will cover Tizanidine. Faby Zapien RN documented in this encounter [facility] 12-24-2024 Instructions William Vann PA-C - 12/24/2024 9:15 AM EST Images from the original note were not included. [facility] PATIENT PREOPERATIVE INSTRUCTIONS Renan Bowling MD has scheduled you for your procedure at this surgery center: [facility]: [phone] -- [address] [address]. Please read below carefully for your personalized instructions. Dietary Restrictions: - No solid food after midnight. - You may have 12 ounces of clear liquids (water, clear juices such as apple juice or gatorade, carbonated beverages, clear tea, black coffee, jello) until 2 hours before scheduled arrival at facility. Medications: Medications to take the day of surgery with a sip of water: Metoprolol, amlodipine, tikosyn, pantoprazole, atorvastatin If you take any medications for erectile dysfunction-Cialis (Tadalafil), Levitra, Staxyn (Vardenafil) Viagra (Sildenenafil please do not take these for 48 hours before surgery. If you start any new medications after today's visit, please contact the surgeon's office. If you are currently using a bism-iit-jhef injectable or oral medication for diabetes or weight loss such as Dulaglutide (Trulicity), Exenatide (Byetta, Bydureon), Liraglutide (Victoza, Saxenda), Semaglutide (Ozempic, Wegovy, Rybelsus), or Tirzepatide (Mounjaro), the medicine should be stopped at least 7 days before surgery. These medicines can cause food to remain in your stomach for a very long time and increase the risks from surgery and anesthesia. Not stopping the medication for a long enough time may result in your surgery being rescheduled. Blood Thinning Medications: - Stop NSAIDS (Ibuprofen, Advil, Aleve, Motrin, Celebrex, Mobic, etc.) 7 days before surgery, as directed by your surgeon. - Stop ALL herbal and dietary supplements 7 days before surgery. - You may take Tylenol (Acetaminophen) or any of your pain medications that do not contain aspirin or NSAIDS as needed. Eliquis- hold 2 days prior to surgery , per Dr. Yuan Important Reminders: - If you use CPAP/BIPAP, bring the machine with you to the surgery center. - If you are prescribed inhalers for breathing, continue using them. - Candy, mints, and tobacco products are NOT permitted the morning of surgery. - Hearing aids, dentures and glasses may be worn the morning of surgery. - NO jewelry, body piercings, makeup, hairpins or contacts are to be worn the day of surgery. If you develop symptoms such as a fever, cold, or flu, or have other changes to your health within TWO DAYS of scheduled surgery or the morning of surgery, please contact the surgery center above. Personal Belongings: -Please have photo ID and insurance cards. -If you do not have a copy of advance directives on file with us, please bring a copy with you on the day of surgery. - Leave ALL valuables and money at home or with family members. - Please bring high-quality footwear, such as sneakers, to the hospital for ambulating post-surgery. For Outpatient Procedures: - YOU MUST HAVE A RESPONSIBLE LUNCH COOK TAKE YOU HOME. A PROFESSIONAL BENEFITS SALES CONSULTANT OR SUPPORT SERVICES TECH CANNOT BE MADE A RESPONSIBLE LUNCH COOK. - We recommend that a responsible person stays with you overnight to take care of you. - You cannot stay in a hotel alone after outpatient surgery. You will not be permitted to have your surgery, if you do not have someone to take care of you. Arrival Time for Surgery: - The Surgery Center or hospital where you are having surgery will call the afternoon before surgery (or Sunday for Sunday surgery) with a scheduled arrival time. - If you have not heard by 4 pm, please contact the surgery center above. Please be aware that emergency situations arise, which may delay or change your surgical time. If this happens, we will notify you as soon as possible and regret any inconvenience. If you already have an Advance Directive, please fax a copy to [phone] or email to for it to be added to your chart. If you do not have an Advance Directive, you can find the appropriate form and more information at [email or web address]. We recommend that you complete the Advance Directive form found on the website and bring it with you the day of your surgery. It can be witnessed and scanned into your chart that day. William Vann PA-C documented in this encounter [facility] 12-24-2024 History and physical note Images from the original note were not included. [facility] HISTORY AND PHYSICAL EXAMINATION SERVICE DATE: 12/24/2024 SERVICE TIME: 8:50 AM PRIMARY CARE PHYSICIAN: Galindo Yuan MD Assessment Patient has the following medical conditions which may affect eileen-operative course: Coronary artery disease of [place] artery of [place] heart with stable angina pectoris (HCC) Assessment: Follows with Cardiology in [place], and EP at , last OV with Diane Reed PA-C 07/24/2024 History of AR and stents. Denies any recent chest pain or SOB. No Nitro in months. 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 Assessment: . [place] Activity Status Index: METS: Walk indoors, such as around the house (1.75 METs) Do light work around the house, such as dusting or washing dishes (2.70 METs) Take care of self; that is eating, dressing, bathing, using the toilet (2.75 METs) Walk a block or two on level ground (2.75 METs) Do moderate work around the house, such as vacuuming, sweeping floors, or carrying in groceries (3.50 METs) DASI Score: 13.45 Patient denies any chest pain or undue shortness of breath with the above physical activity. Clinical Frailty Scale: 5. Mildly frail STOP-Bang Score: STOP-Bang Score: (+ETHAN- uses CPAP nightly ) [id number] Score: Age: >=75 Sex: male CHF history: No Hypertension history: Yes Stroke/TIA/thromboembolism history: No Vascular disease history: No Diabetes history: Yes [id number] Score: 4 ANESTHESIA FINDINGS: Intubation History: No history of difficult intubation Significant Anesthesia Considerations: none Airway History: No history of difficult airway History of head/neck surgery that distorted airway, including mouth, neck, or their mobility I - PHYSICAL EVALUATION AIRWAY Patient intubated: No. Tracheostomy tube not present Mallampati: III. TM distance: >3 FB. Neck ROM: limited flexion and extension. Mouth opening: adequate. Short neck: no. Additional comments: Limited neck rotation with pain. Thick neck: no Tolentino present: no Lip Bite Test: I DENTAL Dentures, upper: complete. Dentures, lower: complete. II - ANESTHESIA PLAN Anesthetic plan additional comments: *PACC/TCI - anesthesia choice. Beta Rebeca Monitoring Plan Post Procedure Analgesic Plan Prepared for Surgery: optimally prepared for surgery. Patient was seen by PCP yesterday and instructed to hold Eliquis 2 days before procedure. CONSULTS: Patient does not require consults for optimization at this time Planned Anesthetic: anesthesia choice The Following Tests/Procedures Have Been Initiated: No orders of the defined types were placed in this encounter. This is a virtual visit using Keego video visit. It required patient-provider interaction for the medical decision making as documented below. REASON FOR VISIT: Jg Chahal is a 84 year old male who is scheduled for Procedure(s): PERCUTANEOUS IMPLANT LEAD NEUROSTIM EPIDURAL TRIAL (N/A) at the request of Dr. Renan Bowling for consultation. My final recommendation will be communicated back to the requesting physician by way of shared medical record or letter. Subjective The patient has the following: COVID-19 Immunization Status Postponed - Covid-19 Vaccine () Postponed until 12/05/2025 12/05/2024 Postponed until 12/05/2025 by Saritha Daniel MA (Declined at this time) 06/20/2024 Imm Admin: COVID-19 vaccine, age 12+ yr (PFIZER-BIONTECH COMIRNATY) 12/20/2023 Imm Admin: COVID-19 vaccine, age 12+ yr (PFIZER-BIONTECH COMIRNATY) Only the first 3 history entries have been loaded, but more history exists. CHIEF COMPLAINT: Pain disorder with related psychological factors, Failed back syndrome of lumbar spine HPI: Jg Chahal is a 84 year old male who is scheduled for PERCUTANEOUS IMPLANT LEAD NEUROSTIM EPIDURAL TRIAL at the request of Dr. Renan Bowling for 01/14/2025. He reports low back pain x2 years. He states that he can hardly stand up. He states pain is effecting his walking, sleeping and daily activities. He has had spinal injections without improvement. He has tried tylenol without improvement. He denies any relievers. This is a virtual visit. The visit was conducted using Keego video visit. It required patient-provider interaction for the medical decision making as documented below. I have communicated my name and active licensure. The patient's identity and physical location were verified at the time of this visit. Either the patient or their legal aircraft sales representative has been informed of the risks and benefits of and alternatives to treatment through a remote evaluation and consents to proceed with the evaluation remotely. REVIEW OF SYSTEMS: General: No weight loss, malaise or fevers. Neurological: No history of TIA's, stroke, CLINICAL CARE COORDINATOR tumor, impaired sensorium, hemiplegia, paraplegia or quadraplegia. No neurological symptoms or problems. Respiratory: Positive for: obstructive sleep apnea and CPAP/BiPAP compliant. Negative for: asthma, pneumonia within 6 weeks, tobacco use and URI < 2 weeks. Cardiovascular: Positive for: atrial fibrillation, CAD, hyperlipidemia and hypertension Negative for: chest pain and DVT/PE. GI: No history of GI symptoms or problems. No history of esophageal varices, recent ascites, or ETOH greater than 2 drinks per day. : +CKD-3 Negative for: dysuria and hematuria. Endocrine: Positive for: diabetes mellitus. Patient's diabetes mellitus is controlled by diet. Hematology: Positive for: chronic anti-coagulation/platelet meds. Oncology: No history of CA metastasis, chemo within 30 days, or radiotherapy within 90 days. No history of oncological symptoms or problems. Psych: No history of psychiatric symptoms or problems. Musculoskeletal: See HPI. Positive for: back pain and joint pain (hands, feet). Skin: Negative for lesions, rash and itching. 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 Dr. Tee Clemons, Dermatology Basal cell carcinoma (BCC) of skin of face Mohs 04/2021 Cervical spondylosis 09/25/2022 Coronary atherosclerosis of unspecified type of vessel, [place] or graft 01/22/2006 moderate Diverticulosis of colon (without mention of hemorrhage) 07/18/2005 Dyslipidemia Dyspepsia and other specified disorders of function of stomach 07/18/2005 Chronic gastritis, Dyspepsia. Gastric ulcer, unspecified as acute or chronic, without mention of hemorrhage or perforation, with obstruction Generalized osteoarthrosis, unspecified site 07/18/2005 H. pylori infection 05/30/2011 HTN (hypertension) Hypertensive 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 4 chronic kidney disease, or unspecified chronic kidney disease 07/18/2005 Impaired fasting glucose 07/18/2005 Lipoprotein deficiencies 07/18/2005 Low HDL. Lumbago 08/26/2008 Dr. Odin Coon, [facility]. Rotator cuff tear, right 10/21/2012 Salmonella enteritis 08/2010 Type II or unspecified type diabetes mellitus without mention of complication, not stated as uncontrolled 07/08/2007 Unspecified essential hypertension 07/18/2005 PAST SURGICAL HISTORY Procedure Laterality Date ARTHROSCOPY KNEE DIAGNOSTIC W/WO SYNOVIAL BX SPX 11/2003 Arthroscopy, knee ARTHRP ACETBLR/PROX FEM PROSTC AGRFT/ALGRFT Right 08/07/2016 Hip replacement, total ARTHRP KNE CONDYLE&PLATU MEDIAL&LAT COMPARTMENTS 2002 Knee replacement, total, left ARTHRP KNE CONDYLE&PLATU MEDIAL&LAT COMPARTMENTS Left 10/01/2017 revision L TKA, [facility] CC ABLATION SVT 04/06/2017 EP study, ablation for A.fib. COLONOSCOPY FLX DX W/COLLJ SPEC WHEN PFRMD 12/24/2002 Colonoscopy COLONOSCOPY FLX DX W/COLLJ SPEC WHEN PFRMD 05/11/2011 Colonoscopy ESOPHAGOGASTRODUODENOSCOPY TRANSORAL DIAGNOSTIC 03/18/2007 EGD ESOPHAGOGASTRODUODENOSCOPY TRANSORAL DIAGNOSTIC 06/11/2007 EGD ESOPHAGOGASTRODUODENOSCOPY TRANSORAL DIAGNOSTIC 05/11/2011 EGD LOPEZ W/O FACETEC FORAMOT/DSC 1/2 VRT SGM CRV 2000 Laminectomy, cervical LAMINECTOMY W/O FFD > 2 VERT SEG LUMBAR 11/05/2008 lumbar fusion LAMINOTOMY (HEMILAMINECTOMY), WITH DECOMPRESSION OF NERVE ROOT(S) Bilateral 05/02/2019 Revision hemilaminectomies L2,L3,L4-L5 LEFT HEART CATH,PERCUTANEOUS 01/22/2006 Cardiac cath, L heart LEFT HEART CATH,PERCUTANEOUS 05/31/2011 Cardiac cath, L heart LEFT HEART CATH,PERCUTANEOUS 11/27/2011 Cardiac cath, L heart LEFT HEART CATH,PERCUTANEOUS 11/27/2013 Cardiac cath, L heart NEUROPLASTY &/TRANSPOS MEDIAN NRV CARPAL TUNNE 1995 Carpal tunnel decomp R/L OPEN REPAIR OF ROTATOR CUFF ACUTE 1996 Rotator cuff repair, bilateral OPEN REPAIR OF ROTATOR CUFF CHRONIC Left 12/28/2014 Left shoulder open rotator cuff repair and Sub Ac decompression SHX TOTAL SHOULDER REVERSE Left 02/01/2022 Left reverse total shoulder arthroplasty TRANSCATH STENT INIT VESSEL,PERCUT 08/26/2009 Transcath stent init vessel percut TRANSCATH STENT INIT VESSEL,PERCUT 11/16/2010 Transcath stent init vessel percut FAMILY HISTORY Problem Relation Age of Onset other (CVA) Mother d 89 stroke other (HTN) Mother other (CHF) Mother Ischemic Heart Disease Father Skin Cancer Father bcc other (Lymphoma) Father d 65 lymphoma other (Skin Ca) Brother Melanoma Brother other (Tremors) Brother Cancer Daughter ovarian Diabetes Maternal Grandmother other (Tremors) Brother Melanoma Other maternal uncle Social History Tobacco Use Smoking status: Never Smokeless tobacco: Never Vaping Use Vaping status: Never Used Substance Use Topics Alcohol use: No Drug use: No Prior to Admission medications as of 12/24/24 0951 Medication Sig Last Dose Taking losartan (COZAAR) 50 mg tablet Take 1 tablet by mouth once daily. Taking Yes metoprolol succinate ER (TOPROL XL) 25 mg 24 hr tablet Take 1 tablet by mouth once daily. Taking Yes apixaban (ELIQUIS) 5 mg tab(s) Take 1 tablet by mouth two times a day. Taking Yes amLODIPine (NORVASC) 2.5 mg tablet Take 1 tablet by mouth once daily. Taking Yes dofetilide (TIKOSYN) 250 mcg capsule Take 1 capsule by mouth two times a day. Taking Yes pantoprazole DR (PROTONIX) 40 mg tablet TAKE ONE TABLET BY MOUTH DAILY ON EMPTY STOMACH ONE-HALF HOUR BEFORE BREAKFAST Taking Yes atorvastatin (LIPITOR) 40 mg tablet Take 1 tablet by mouth once daily. Taking Yes TENS unit and electrodes cmpk Us as instructed. Taking Yes melatonin 3 mg tablet Take 1 tablet by mouth daily at bedtime. Taking Yes CPAP Patient requesting new DME. Currently has a PAP device (2015 -- may be due for new device). Please fit with a Wisp (currently with Dream wisp and causing discomfort on top of head). Lifetime supplies. Taking Yes docusate sodium (COLACE) 100 mg capsule AT BEDTIME Taking Yes magnesium oxide (MAG-OX) 400 mg tablet Take 1 tablet by mouth once daily. Taking Yes Cholecalciferol, Vitamin D3, 1,000 unit cap Take 1 capsule by mouth once daily. Taking Yes vitamin b complex (B COMPLETE) ORAL Tab Take 1 tablet by mouth once daily. Taking Yes baclofen 10 mg tablet Take 1 tablet by mouth at bedtime as needed (leg cramps.). clotrimazole-betamethasone (LOTRISONE) cream Apply to affected area twice daily. APPLY TO AFFECTED AREA nitroglycerin sublingual (NITROSTAT) 0.4 mg SL tablet Dissolve 1 tablet under the tongue every 5 minutes as needed for chest pain. blood sugar diagnostic (BLOOD GLUCOSE TEST) test strip Test blood sugar(s) 1 times daily. Dx: Type 2 DM - Controlled E11.42 Insulin: No Lancets lancets Test blood sugar(s) 1 times daily. Dx: Type 2 DM - Controlled E11.42 Insulin: No Amoxicillin 500 mg tablet Take 4 tablets by mouth as needed (1 hour before the procedure). No medication comments found. ALLERGIES Allergen Reactions Adhesive Hives Codeine HEART PALPITATIONS Darvocet-N 100 [Pro* Intolerance Heart racing Latex Hives Meperidine Hcl Objective PHYSICAL EXAM: (if completed, exam performed via video enabled technology) General: alert and oriented and obese. Pertinent negatives noted - not distressed. Skin: normal color, no rash or lesions. HEENT: EOM intact and pupils equal round. Throat; OROPHARYNX: moist mucus membranes. Neck; full ROM, no cervical LNs noted. Cardiovascular: Pulse characterized as regular.RRR, confirmed with radial pulse exam. Respiratory: Breathing non-labored . Abdomen: Pertinent negatives noted - not tender. Extremities: no deformity, no edema or tenderness, no joint swelling or clubbing. Neurological: normal cognition and motor skills. PAIN ASSESSMENT: Pain Pain Level: 4 VITALS: Ht 5' 7.5 (1.72m) Wt 210 lb (95.3kg) BMI 32.39 kg/(m^2). Diagnostic tests reviewed for today's visit: Lab Value Units Date High Low HB No results within date range. HCT No results within date range. WBC No results within date range. PLT No results within date range. NA 135 mmol/L 12/15/2024 144 136 K 4.2 mmol/L 12/15/2024 5.1 3.7 GLUC 107 mg/dL 12/15/2024 99 74 BUN 16 mg/dL 12/15/2024 24 9 CREAT 1.24 mg/dL 12/15/2024 1.22 0.73 PTSEC No results within date range. INR No results within date range. APTT No results within date range. ALT No results within date range. AST No results within date range. TBILI No results within date range. TSH No results within date range. Lab Value Units Date High Low HCGQT No results within date range. UHCG No results within date range. HCG, BODY* No results within date range. Lab Value Units Date High Low ABORHD No results within date range. ABSCREEN No results within date range. Hemoglobin A1C (%) Date Value 01/01/2024 5.8 06/20/2023 5.8 12/07/2022 5.8 11/17/2021 6.1 05/05/2021 6.1 11/04/2020 6.0 11/05/2019 5.9 04/16/2019 5.9 Hemoglobin A1C (POCT) (%) Date Value 06/20/2024 5.8 06/19/2022 5.8 05/14/2020 6.0 Recent Results (from the past 8760 hour(s)) ECG COMPLETE Collection Time: 07/24/24 10:56 AM Result Value Ventricular Rate 69 Atrial Rate 69 P-R Interval 244 QRS Duration 84 QT Interval 406 QTC Calculation (Bazett) 435 Calculated P [place] 90 Calculated R [place] 59 Calculated T [place] 36 Impression SINUS RHYTHM WITH 1ST DEGREE AV BLOCK OTHERWISE NORMAL ECG Confirmed by NATALIE PETERSON MD ([id number]) on 08/11/2024 11:20:32 AM Recent Results (from the past 80955 hour(s)) ECHO Collection Time: 08/07/23 9:01 AM Impression CONCLUSIONS: - Exam indication: Atrial fibrillation - The left ventricle is normal in size. There is mild upper septal left ventricular hypertrophy. Left ventricular systolic function is normal. EF = 58 5% (2D biplane) Grade I left ventricular diastolic dysfunction. - The right ventricle is normal in size. Right ventricular systolic function is normal. - Exam was compared with the prior echocardiographic exam performed on 12/27/2021, no significant change. * * * Final * * * Instructions Given to Patient: Instructions located in the after visit summary. Patient given verbal and written preop instructions and voices comprehension and compliance. SIGNATURE: William Vann PA-C PATIENT NAME: Jg Chahal DATE: December 24, 2024 TIME: 10:00 AM PAGER/CONTACT #: [facility] 12-24-2024 History and physical note Images from the original note were not included. [facility] HISTORY AND PHYSICAL EXAMINATION SERVICE DATE: 12/24/2024 SERVICE TIME: 8:50 AM PRIMARY CARE PHYSICIAN: Galindo Yuan MD Assessment Patient has the following medical conditions which may affect eileen-operative course: Coronary artery disease of [place] artery of [place] heart with stable angina pectoris (HCC) Assessment: Follows with Cardiology in [place], and EP at , last OV with Diane Reed PA-C 07/24/2024 History of AR and stents. Denies any recent chest pain or SOB. No Nitro in months. 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 Assessment: . [place] Activity Status Index: METS: Walk indoors, such as around the house (1.75 METs) Do light work around the house, such as dusting or washing dishes (2.70 METs) Take care of self; that is eating, dressing, bathing, using the toilet (2.75 METs) Walk a block or two on level ground (2.75 METs) Do moderate work around the house, such as vacuuming, sweeping floors, or carrying in groceries (3.50 METs) DASI Score: 13.45 Patient denies any chest pain or undue shortness of breath with the above physical activity. Clinical Frailty Scale: 5. Mildly frail STOP-Bang Score: STOP-Bang Score: (+ETHAN- uses CPAP nightly ) [id number] Score: Age: >=75 Sex: male CHF history: No Hypertension history: Yes Stroke/TIA/thromboembolism history: No Vascular disease history: No Diabetes history: Yes [id number] Score: 4 ANESTHESIA FINDINGS: Intubation History: No history of difficult intubation Significant Anesthesia Considerations: none Airway History: No history of difficult airway History of head/neck surgery that distorted airway, including mouth, neck, or their mobility I - PHYSICAL EVALUATION AIRWAY Patient intubated: No. Tracheostomy tube not present Mallampati: III. TM distance: >3 FB. Neck ROM: limited flexion and extension. Mouth opening: adequate. Short neck: no. Additional comments: Limited neck rotation with pain. Thick neck: no Tolentino present: no Lip Bite Test: I DENTAL Dentures, upper: complete. Dentures, lower: complete. II - ANESTHESIA PLAN Anesthetic plan additional comments: *PACC/TCI - anesthesia choice. Beta Rebeca Monitoring Plan Post Procedure Analgesic Plan Prepared for Surgery: optimally prepared for surgery. Patient was seen by PCP yesterday and instructed to hold Eliquis 2 days before procedure. CONSULTS: Patient does not require consults for optimization at this time Planned Anesthetic: anesthesia choice The Following Tests/Procedures Have Been Initiated: No orders of the defined types were placed in this encounter. This is a virtual visit using Keego video visit. It required patient-provider interaction for the medical decision making as documented below. REASON FOR VISIT: Jg Chahal is a 84 year old male who is scheduled for Procedure(s): PERCUTANEOUS IMPLANT LEAD NEUROSTIM EPIDURAL TRIAL (N/A) at the request of Dr. Renan Bowling for consultation. My final recommendation will be communicated back to the requesting physician by way of shared medical record or letter. Subjective The patient has the following: COVID-19 Immunization Status Postponed - Covid-19 Vaccine ( season) Postponed until 12/05/2025 12/05/2024 Postponed until 12/05/2025 by Saritha Daniel MA (Declined at this time) 06/20/2024 Imm Admin: COVID-19 vaccine, age 12+ yr (PFIZER-BIONTECH COMIRNATY) 12/20/2023 Imm Admin: COVID-19 vaccine, age 12+ yr (PFIZER-BIONTECH COMIRNATY) Only the first 3 history entries have been loaded, but more history exists. CHIEF COMPLAINT: Pain disorder with related psychological factors, Failed back syndrome of lumbar spine HPI: Jg Chahal is a 84 year old male who is scheduled for PERCUTANEOUS IMPLANT LEAD NEUROSTIM EPIDURAL TRIAL at the request of Dr. Renan Bowling for 01/14/2025. He reports low back pain x2 years. He states that he can hardly stand up. He states pain is effecting his walking, sleeping and daily activities. He has had spinal injections without improvement. He has tried tylenol without improvement. He denies any relievers. This is a virtual visit. The visit was conducted using Keego video visit. It required patient-provider interaction for the medical decision making as documented below. I have communicated my name and active licensure. The patient's identity and physical location were verified at the time of this visit. Either the patient or their legal aircraft sales representative has been informed of the risks and benefits of and alternatives to treatment through a remote evaluation and consents to proceed with the evaluation remotely. REVIEW OF SYSTEMS: General: No weight loss, malaise or fevers. Neurological: No history of TIA's, stroke, CLINICAL CARE COORDINATOR tumor, impaired sensorium, hemiplegia, paraplegia or quadraplegia. No neurological symptoms or problems. Respiratory: Positive for: obstructive sleep apnea and CPAP/BiPAP compliant. Negative for: asthma, pneumonia within 6 weeks, tobacco use and URI < 2 weeks. Cardiovascular: Positive for: atrial fibrillation, CAD, hyperlipidemia and hypertension Negative for: chest pain and DVT/PE. GI: No history of GI symptoms or problems. No history of esophageal varices, recent ascites, or ETOH greater than 2 drinks per day. : +CKD-3 Negative for: dysuria and hematuria. Endocrine: Positive for: diabetes mellitus. Patient's diabetes mellitus is controlled by diet. Hematology: Positive for: chronic anti-coagulation/platelet meds. Oncology: No history of CA metastasis, chemo within 30 days, or radiotherapy within 90 days. No history of oncological symptoms or problems. Psych: No history of psychiatric symptoms or problems. Musculoskeletal: See HPI. Positive for: back pain and joint pain (hands, feet). Skin: Negative for lesions, rash and itching. 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 Dr. Tee Clemons, Dermatology Basal cell carcinoma (BCC) of skin of face Mohs 04/2021 Cervical spondylosis 09/25/2022 Coronary atherosclerosis of unspecified type of vessel, [place] or graft 01/22/2006 moderate Diverticulosis of colon (without mention of hemorrhage) 07/18/2005 Dyslipidemia Dyspepsia and other specified disorders of function of stomach 07/18/2005 Chronic gastritis, Dyspepsia. Gastric ulcer, unspecified as acute or chronic, without mention of hemorrhage or perforation, with obstruction Generalized osteoarthrosis, unspecified site 07/18/2005 H. pylori infection 05/30/2011 HTN (hypertension) Hypertensive 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 4 chronic kidney disease, or unspecified chronic kidney disease 07/18/2005 Impaired fasting glucose 07/18/2005 Lipoprotein deficiencies 07/18/2005 Low HDL. Lumbago 08/26/2008 Dr. Odin Coon, [facility]. Rotator cuff tear, right 10/21/2012 Salmonella enteritis 08/2010 Type II or unspecified type diabetes mellitus without mention of complication, not stated as uncontrolled 07/08/2007 Unspecified essential hypertension 07/18/2005 PAST SURGICAL HISTORY Procedure Laterality Date ARTHROSCOPY KNEE DIAGNOSTIC W/WO SYNOVIAL BX SPX 11/2003 Arthroscopy, knee ARTHRP ACETBLR/PROX FEM PROSTC AGRFT/ALGRFT Right 08/07/2016 Hip replacement, total ARTHRP KNE CONDYLE&PLATU MEDIAL&LAT COMPARTMENTS 2002 Knee replacement, total, left ARTHRP KNE CONDYLE&PLATU MEDIAL&LAT COMPARTMENTS Left 10/01/2017 revision L TKA, [facility] CC ABLATION SVT 04/06/2017 EP study, ablation for A.fib. COLONOSCOPY FLX DX W/COLLJ SPEC WHEN PFRMD 12/24/2002 Colonoscopy COLONOSCOPY FLX DX W/COLLJ SPEC WHEN PFRMD 05/11/2011 Colonoscopy ESOPHAGOGASTRODUODENOSCOPY TRANSORAL DIAGNOSTIC 03/18/2007 EGD ESOPHAGOGASTRODUODENOSCOPY TRANSORAL DIAGNOSTIC 06/11/2007 EGD ESOPHAGOGASTRODUODENOSCOPY TRANSORAL DIAGNOSTIC 05/11/2011 EGD LOPEZ W/O FACETEC FORAMOT/DSC 1/2 VRT SGM CRV 2000 Laminectomy, cervical LAMINECTOMY W/O FFD > 2 VERT SEG LUMBAR 11/05/2008 lumbar fusion LAMINOTOMY (HEMILAMINECTOMY), WITH DECOMPRESSION OF NERVE ROOT(S) Bilateral 05/02/2019 Revision hemilaminectomies L2,L3,L4-L5 LEFT HEART CATH,PERCUTANEOUS 01/22/2006 Cardiac cath, L heart LEFT HEART CATH,PERCUTANEOUS 05/31/2011 Cardiac cath, L heart LEFT HEART CATH,PERCUTANEOUS 11/27/2011 Cardiac cath, L heart LEFT HEART CATH,PERCUTANEOUS 11/27/2013 Cardiac cath, L heart NEUROPLASTY &/TRANSPOS MEDIAN NRV CARPAL TUNNE 1995 Carpal tunnel decomp R/L OPEN REPAIR OF ROTATOR CUFF ACUTE 1995 Rotator cuff repair, bilateral OPEN REPAIR OF ROTATOR CUFF CHRONIC Left 12/28/2014 Left shoulder open rotator cuff repair and Sub Ac decompression SHX TOTAL SHOULDER REVERSE Left 02/01/2022 Left reverse total shoulder arthroplasty TRANSCATH STENT INIT VESSEL,PERCUT 08/26/2009 Transcath stent init vessel percut TRANSCATH STENT INIT VESSEL,PERCUT 11/16/2010 Transcath stent init vessel percut FAMILY HISTORY Problem Relation Age of Onset other (CVA) Mother d 89 stroke other (HTN) Mother other (CHF) Mother Ischemic Heart Disease Father Skin Cancer Father bcc other (Lymphoma) Father d 65 lymphoma other (Skin Ca) Brother Melanoma Brother other (Tremors) Brother Cancer Daughter ovarian Diabetes Maternal Grandmother other (Tremors) Brother Melanoma Other maternal uncle Social History Tobacco Use Smoking status: Never Smokeless tobacco: Never Vaping Use Vaping status: Never Used Substance Use Topics Alcohol use: No Drug use: No Prior to Admission medications as of 12/24/24 0959 Medication Sig Last Dose Taking losartan (COZAAR) 50 mg tablet Take 1 tablet by mouth once daily. Taking Yes metoprolol succinate ER (TOPROL XL) 25 mg 24 hr tablet Take 1 tablet by mouth once daily. Taking Yes apixaban (ELIQUIS) 5 mg tab(s) Take 1 tablet by mouth two times a day. Taking Yes amLODIPine (NORVASC) 2.5 mg tablet Take 1 tablet by mouth once daily. Taking Yes dofetilide (TIKOSYN) 250 mcg capsule Take 1 capsule by mouth two times a day. Taking Yes pantoprazole DR (PROTONIX) 40 mg tablet TAKE ONE TABLET BY MOUTH DAILY ON EMPTY STOMACH ONE-HALF HOUR BEFORE BREAKFAST Taking Yes atorvastatin (LIPITOR) 40 mg tablet Take 1 tablet by mouth once daily. Taking Yes TENS unit and electrodes [facility] as instructed. Taking Yes melatonin 3 mg tablet Take 1 tablet by mouth daily at bedtime. Taking Yes CPAP Patient requesting new DME. Currently has a PAP device (2016 -- may be due for new device). Please fit with a Wisp (currently with Dream wisp and causing discomfort on top of head). Lifetime supplies. Taking Yes docusate sodium (COLACE) 100 mg capsule AT BEDTIME Taking Yes magnesium oxide (MAG-OX) 400 mg tablet Take 1 tablet by mouth once daily. Taking Yes Cholecalciferol, Vitamin D3, 1,000 unit cap Take 1 capsule by mouth once daily. Taking Yes vitamin b complex (B COMPLETE) ORAL Tab Take 1 tablet by mouth once daily. Taking Yes baclofen 10 mg tablet Take 1 tablet by mouth at bedtime as needed (leg cramps.). clotrimazole-betamethasone (LOTRISONE) cream Apply to affected area twice daily. APPLY TO AFFECTED AREA nitroglycerin sublingual (NITROSTAT) 0.4 mg SL tablet Dissolve 1 tablet under the tongue every 5 minutes as needed for chest pain. blood sugar diagnostic (BLOOD GLUCOSE TEST) test strip Test blood sugar(s) 1 times daily. Dx: Type 2 DM - Controlled E11.42 Insulin: No Lancets lancets Test blood sugar(s) 1 times daily. Dx: Type 2 DM - Controlled E11.42 Insulin: No Amoxicillin 500 mg tablet Take 4 tablets by mouth as needed (1 hour before the procedure). No medication comments found. ALLERGIES Allergen Reactions Adhesive Hives Codeine HEART PALPITATIONS Darvocet-N 100 [Pro* Intolerance Heart racing Latex Hives Meperidine Hcl Objective PHYSICAL EXAM: (if completed, exam performed via video enabled technology) General: alert and oriented and obese. Pertinent negatives noted - not distressed. Skin: normal color, no rash or lesions. HEENT: EOM intact and pupils equal round. Throat; OROPHARYNX: moist mucus membranes. Neck; full ROM, no cervical LNs noted. Cardiovascular: Pulse characterized as regular.RRR, confirmed with radial pulse exam. Respiratory: Breathing non-labored . Abdomen: Pertinent negatives noted - not tender. Extremities: no deformity, no edema or tenderness, no joint swelling or clubbing. Neurological: normal cognition and motor skills. PAIN ASSESSMENT: Pain Pain Level: 4 VITALS: Ht 5' 7.5 (1.72m) Wt 210 lb (95.3kg) BMI 32.39 kg/(m^2). Diagnostic tests reviewed for today's visit: Lab Value Units Date High Low HB No results within date range. HCT No results within date range. WBC No results within date range. PLT No results within date range. NA 135 mmol/L 12/15/2024 144 136 K 4.2 mmol/L 12/15/2024 5.1 3.7 GLUC 107 mg/dL 12/15/2024 99 74 BUN 16 mg/dL 12/15/2024 24 9 CREAT 1.24 mg/dL 12/15/2024 1.22 0.73 PTSEC No results within date range. INR No results within date range. APTT No results within date range. ALT No results within date range. AST No results within date range. TBILI No results within date range. TSH No results within date range. Lab Value Units Date High Low HCGQT No results within date range. UHCG No results within date range. HCG, BODY* No results within date range. Lab Value Units Date High Low ABORHD No results within date range. ABSCREEN No results within date range. Hemoglobin A1C (%) Date Value 01/01/2024 5.8 06/20/2023 5.8 12/07/2022 5.8 11/17/2021 6.1 05/05/2021 6.1 11/04/2020 6.0 11/05/2019 5.9 04/16/2019 5.9 Hemoglobin A1C (POCT) (%) Date Value 06/20/2024 5.8 06/19/2022 5.8 05/14/2020 6.0 Recent Results (from the past 8760 hour(s)) ECG COMPLETE Collection Time: 07/24/24 10:56 AM Result Value Ventricular Rate 69 Atrial Rate 69 P-R Interval 244 QRS Duration 84 QT Interval 406 QTC Calculation (Bazett) 435 Calculated P [place] 90 Calculated R [place] 59 Calculated T [place] 36 Impression SINUS RHYTHM WITH 1ST DEGREE AV BLOCK OTHERWISE NORMAL ECG Confirmed by NATALIE PETERSON MD ([id number]) on 08/11/2024 11:20:32 AM Recent Results (from the past 66414 hour(s)) ECHO Collection Time: 08/07/23 9:01 AM Impression CONCLUSIONS: - Exam indication: Atrial fibrillation - The left ventricle is normal in size. There is mild upper septal left ventricular hypertrophy. Left ventricular systolic function is normal. EF = 58 5% (2D biplane) Grade I left ventricular diastolic dysfunction. - The right ventricle is normal in size. Right ventricular systolic function is normal. - Exam was compared with the prior echocardiographic exam performed on 12/27/2021, no significant change. * * * Final * * * Instructions Given to Patient: Instructions located in the after visit summary. Patient given verbal and written preop instructions and voices comprehension and compliance. SIGNATURE: William Vann PA-C PATIENT NAME: Jg Chahal DATE: December 24, 2024 TIME: 10:00 AM PAGER/CONTACT #: documented in this encounter [facility] 12-23-2024 Telephone encounter Note Renetta smalls from [facility] and states that insurance will not cover methocarbamol. Insurance will cover Tizanidine. Faby Zapien RN [facility] 12-23-2024 Note HNO ID: [id number] Author: GALINDO YUAN MD Service: ? Author Type: Physician Type: Progress Notes Filed: 12/23/2024 09:19 Note Text: This note was created using Mavenlinkriter. Subjective Jg Chahal is a 84 year old male. His testicle pain resolved. He's been dealing with hand cramps off and on. His recent labs were notable for mild kidney insufficiency. What was more bothersome was severe nocturnal leg cramps for more than one year, that wake him up often. These are worse when he was more active. He gets relief from a small serving of pickle juice but his blood pressure elevates from pickle juice presumably from high sodium content. He was scheduled for a trial of percutaneous implant of neurostimulator for chronic pain. Review of Systems Constitutional: Negative for fatigue and fever. Respiratory: Negative for shortness of breath. Cardiovascular: Negative for chest pain, palpitations and leg swelling. Musculoskeletal: Positive for myalgias. Neurological: Negative. 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 Obesity, Class I, Bmi 30-34.9 Sleep Terrors Oropharyngeal Dysphagia Cervical Spondylosis Stable Angina (Hcc) Social History Tobacco Use Smoking status: Never Smokeless tobacco: Never Vaping Use Vaping status: Never Used Substance Use Topics Alcohol use: No Drug use: No Current Outpatient Medications Medication Sig amLODIPine (NORVASC) 2.5 mg tablet Take 1 tablet by mouth once daily. dofetilide (TIKOSYN) 250 mcg capsule Take 1 capsule by mouth two times a day. pantoprazole DR (PROTONIX) 40 mg tablet TAKE ONE TABLET BY MOUTH DAILY ON EMPTY STOMACH ONE-HALF HOUR BEFORE BREAKFAST apixaban (ELIQUIS) 5 mg tab(s) Take 1 tablet by mouth two times a day. atorvastatin (LIPITOR) 40 mg tablet Take 1 tablet by mouth once daily. metoprolol succinate ER (TOPROL XL) 25 mg 24 hr tablet Take 1 tablet by mouth once daily. losartan (COZAAR) 50 mg tablet Take 1 tablet by mouth once daily. clotrimazole-betamethasone (LOTRISONE) cream Apply to affected area twice daily. APPLY TO AFFECTED AREA nitroglycerin sublingual (NITROSTAT) 0.4 mg SL tablet Dissolve 1 tablet under the tongue every 5 minutes as needed for chest pain. blood sugar diagnostic (BLOOD GLUCOSE TEST) test strip Test blood sugar(s) 1 times daily. Dx: Type 2 DM - Controlled E11.42 Insulin: No TENS unit and electrodes cmpk Us as instructed. melatonin 3 mg tablet Take 1 tablet by mouth daily at bedtime. Lancets lancets Test blood sugar(s) 1 times daily. Dx: Type 2 DM - Controlled E11.42 Insulin: No CPAP Patient requesting new DME. Currently has a PAP device (2015 -- may be due for new device). Please fit with a Wisp (currently with Dream wisp and causing discomfort on top of head). Lifetime supplies. Amoxicillin 500 mg tablet Take 4 tablets by mouth as needed (1 hour before the procedure). docusate sodium (COLACE) 100 mg capsule AT BEDTIME magnesium oxide (MAG-OX) 400 mg tablet Take 1 tablet by mouth once daily. Cholecalciferol, Vitamin D3, 1,000 unit cap Take 1 capsule by mouth once daily. vitamin b complex (B COMPLETE) ORAL Tab Take 1 tablet by mouth once daily. No current facility-administered medications for this visit. Objective BP 126/72 (BP Site: Left Arm, BP Position: Sitting, BP Cuff Size: Large Adult) Pulse 64 Temp 36.9 ?C (98.5 ?F) (Temporal) Resp 16 Wt 97.2 kg (214 lb 4.6 oz) BMI 33.56 kg/m? Physical Exam Constitutional: General: He is not in acute distress. Cardiovascular: Heart sounds: Normal heart sounds. Pulmonary: Breath sounds: Normal breath sounds. Musculoskeletal: Right lower leg: No edema. Left lower leg: No edema. Neurological: General: No focal deficit present. Mental Status: He is alert. Gait: Gait abnormal. Comments: Using a cane. Assessment and Plan 1. Nocturnal leg cramps - ICD9: 327.52, ICD10: G47.62 (primary diagnosis) Chronic. Shared Medical Decision Making was done: Medication: methocarbamol. Benefits: Medication may help symptoms. Risks: Possible side effects were discussed. Possible interactions: n/a. Warnings: n/a. Options: cyclobenzaprine contraindicated due to arrhythmia. Call for refill if effective. - METHOCARBAMOL 750 MG TABLET 2. Essential hypertension (more content not included)... [facility] 12-23-2024 History of Present illness Narrative This note was created using NoteWriter. Subjective Jg Chahal is a 84 year old male. His testicle pain resolved. He's been dealing with hand cramps off and on. His recent labs were notable for mild kidney insufficiency. What was more bothersome was severe nocturnal leg cramps for more than one year, that wake him up often. These are worse when he was more active. He gets relief from a small serving of pickle juice but his blood pressure elevates from pickle juice presumably from high sodium content. He was scheduled for a trial of percutaneous implant of neurostimulator for chronic pain. Review of Systems Constitutional: Negative for fatigue and fever. Respiratory: Negative for shortness of breath. Cardiovascular: Negative for chest pain, palpitations and leg swelling. Musculoskeletal: Positive for myalgias. Neurological: Negative. 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 Obesity, Class I, Bmi 30-34.9 Sleep Terrors Oropharyngeal Dysphagia Cervical Spondylosis Stable Angina (Hcc) Social History Tobacco Use Smoking status: Never Smokeless tobacco: Never Vaping Use Vaping status: Never Used Substance Use Topics Alcohol use: No Drug use: No Current Outpatient Medications Medication Sig amLODIPine (NORVASC) 2.5 mg tablet Take 1 tablet by mouth once daily. dofetilide (TIKOSYN) 250 mcg capsule Take 1 capsule by mouth two times a day. pantoprazole DR (PROTONIX) 40 mg tablet TAKE ONE TABLET BY MOUTH DAILY ON EMPTY STOMACH ONE-HALF HOUR BEFORE BREAKFAST apixaban (ELIQUIS) 5 mg tab(s) Take 1 tablet by mouth two times a day. atorvastatin (LIPITOR) 40 mg tablet Take 1 tablet by mouth once daily. metoprolol succinate ER (TOPROL XL) 25 mg 24 hr tablet Take 1 tablet by mouth once daily. losartan (COZAAR) 50 mg tablet Take 1 tablet by mouth once daily. clotrimazole-betamethasone (LOTRISONE) cream Apply to affected area twice daily. APPLY TO AFFECTED AREA nitroglycerin sublingual (NITROSTAT) 0.4 mg SL tablet Dissolve 1 tablet under the tongue every 5 minutes as needed for chest pain. blood sugar diagnostic (BLOOD GLUCOSE TEST) test strip Test blood sugar(s) 1 times daily. Dx: Type 2 DM - Controlled E11.42 Insulin: No TENS unit and electrodes cmpk Us as instructed. melatonin 3 mg tablet Take 1 tablet by mouth daily at bedtime. Lancets lancets Test blood sugar(s) 1 times daily. Dx: Type 2 DM - Controlled E11.42 Insulin: No CPAP Patient requesting new DME. Currently has a PAP device (2015 -- may be due for new device). Please fit with a Wisp (currently with Dream wisp and causing discomfort on top of head). Lifetime supplies. Amoxicillin 500 mg tablet Take 4 tablets by mouth as needed (1 hour before the procedure). docusate sodium (COLACE) 100 mg capsule AT BEDTIME magnesium oxide (MAG-OX) 400 mg tablet Take 1 tablet by mouth once daily. Cholecalciferol, Vitamin D3, 1,000 unit cap Take 1 capsule by mouth once daily. vitamin b complex (B COMPLETE) ORAL Tab Take 1 tablet by mouth once daily. No current facility-administered medications for this visit. Objective BP 126/72 (BP Site: Left Arm, BP Position: Sitting, BP Cuff Size: Large Adult) Pulse 64 Temp 36.9 C (98.5 F) (Temporal) Resp 16 Wt 97.2 kg (214 lb 4.6 oz) BMI 33.56 kg/m Physical Exam Constitutional: General: He is not in acute distress. Cardiovascular: Heart sounds: Normal heart sounds. Pulmonary: Breath sounds: Normal breath sounds. Musculoskeletal: Right lower leg: No edema. Left lower leg: No edema. Neurological: General: No focal deficit present. Mental Status: He is alert. Gait: Gait abnormal. Comments: Using a cane. Assessment and Plan 1. Nocturnal leg cramps - ICD9: 327.52, ICD10: G47.62 (primary diagnosis) Chronic. Shared Medical Decision Making was done: Medication: methocarbamol. Benefits: Medication may help symptoms. Risks: Possible side effects were discussed. Possible interactions: n/a. Warnings: n/a. Options: cyclobenzaprine contraindicated due to arrhythmia. Call for refill if effective. - METHOCARBAMOL 750 MG TABLET 2. Essential hypertension - ICD9: 401.9, ICD10: I10 - Controlled - Continue current medications - Encouraged sodium restriction, DASH or Mediterranean diet - LOSARTAN 50 MG TABLET 3. Paroxysmal atrial fibrillation (HCC) - ICD9: 427.31, ICD10: I48.0 Controlled. - METOPROLOL SUCCINATE ER 25 MG TABLET,EXTENDED RELEASE 24 HR - APIXABAN 5 MG TABLET 4. Coronary artery disease of [place] artery of [place] heart with stable angina pectoris (HCC) - ICD9: 414.01, 413.9, ICD10: I25.118 - Stable. 5. 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 Kidney insufficiency - ICD9: 593.9, ICD10: N28.9 - Hydration stressed. Galindo Yuan MD documented in this encounter [facility] 12-11-2024 Note HNO ID: [id number] Author: JUAN TORRES, ? Service: ? Author Type: Physician Type: Progress Notes Filed: 12/11/2024 08:58 Note Text: Last saw pcp: 12/05/24 Subjective: Patient presents to clinic c/o painful toenails. They state that the nails are especially painful with shoe gear and pressure. Patient admits to being diabetic. No other pedal complaints at this time. Patient states no change in medications or medical history since last visit. Objective: Patient presents to clinic ambulating in sneakers Vasc: DP and PT pulses are palpable bilateral. CFT is less than 5 seconds bilateral. Skin temperature is warm to cool proximal to distal bilateral. There is mild edema or varicosities noted. Neuro: Protective sensation is decreased to the foot and toes when tested with the 5.07 SWM bilateral. Vibratory sensation is absent at the hallux IPJ bilateral. The hallux is downgoing bilateral. Derm: Nails 1-5 right and 1,2,4,5 are painful, discolored-yellow, thick, crumbly, dystrophic and with subungal debris. Skin is of normal turgor, texture and hair growth is decreased bilateral. There are callus to the distal tuft of b/l 3rd toe. no ulcerations, scars, verruca or other lesions noted. Ortho: Muscle strength is 5/5 for all pedal groups tested. Ankle joint DF is decreased with the knee extended with no pain or crepitus noted. 1st MPJ ROM is decreased bilateral. Hammertoes are present to lesser toes of b/l feet. Assessment: (B35.1) Onychomycosis (primary encounter diagnosis) (M79.674) Pain in toe of right foot (M79.675) Pain in toe of left foot (E11.49) Other diabetic neurological complication associated with type 2 diabetes mellitus (HCC) (L85.9) Hyperkeratosis (M20.41, M20.42) Hammer toes of both feet Plan: Patient was seen and evaluated. Nails 1-5 right and 1,2,4,5 left were debrided in length and thickness. Discussed hammertoes and callus. Continue with wider shoes and/or padding. Callus reduced with dremmel. Patient was instructed on the continued importance of diabetic foot care along with proper diet and keeping their blood sugar under control to prevent complications. Stressed the importance of avoiding barefoot walking, wearing good shoes and inspection of feet. Patient is to RTC in 3-4 months. Juan Torres DPM [facility] 12-11-2024 History of Present illness Narrative Last saw pcp: 12/05/24 Subjective: Patient presents to clinic c/o painful toenails. They state that the nails are especially painful with shoe gear and pressure. Patient admits to being diabetic. No other pedal complaints at this time. Patient states no change in medications or medical history since last visit. Objective: Patient presents to clinic ambulating in [facility] Vasc: DP and PT pulses are palpable bilateral. CFT is less than 5 seconds bilateral. Skin temperature is warm to cool proximal to distal bilateral. There is mild edema or varicosities noted. Neuro: Protective sensation is decreased to the foot and toes when tested with the 5.07 SWM bilateral. Vibratory sensation is absent at the hallux IPJ bilateral. The hallux is downgoing bilateral. Derm: Nails 1-5 right and 1,2,4,5 are painful, discolored-yellow, thick, crumbly, dystrophic and with subungal debris. Skin is of normal turgor, texture and hair growth is decreased bilateral. There are callus to the distal tuft of b/l 3rd toe. no ulcerations, scars, verruca or other lesions noted. Ortho: Muscle strength is 5/5 for all pedal groups tested. Ankle joint DF is decreased with the knee extended with no pain or crepitus noted. 1st MPJ ROM is decreased bilateral. Hammertoes are present to lesser toes of b/l feet. Assessment: (B35.1) Onychomycosis (primary encounter diagnosis) (M79.674) Pain in toe of right foot (M79.675) Pain in toe of left foot (E11.49) Other diabetic neurological complication associated with type 2 diabetes mellitus (HCC) (L85.9) Hyperkeratosis (M20.41, M20.42) Hammer toes of both feet Plan: Patient was seen and evaluated. Nails 1-5 right and 1,2,4,5 left were debrided in length and thickness. Discussed hammertoes and callus. Continue with wider shoes and/or padding. Callus reduced with dremmel. Patient was instructed on the continued importance of diabetic foot care along with proper diet and keeping their blood sugar under control to prevent complications. Stressed the importance of avoiding barefoot walking, wearing good shoes and inspection of feet. Patient is to RTC in 3-4 months. Juan Torres DPM AMB ROOMING INTAKE FLOWSHEET DATA Pain Pain Level: 4 Pain Location: Toe Description: Sore Duration Units: Months Frequency: Intermittent Intervention/Comfort measure: Relaxation, Reposition Patient presents with: Right Foot - Established Patient, Pain, nail care Left Foot - Established Patient, Pain, nail care Holli Johnson LPN documented in this encounter [facility] 12-11-2024 Instructions Juan Torres - 12/11/2024 8:34 AM EST Diabetes Foot Care Instructions When you have diabetes, proper foot care is very important. Poor foot care may lead to amputation of a foot or leg. As a person with diabetes, you are more vulnerable to foot problems, because diabetes can damage your nerves and reduce blood flow to your feet. Here are some diabetes foot care tips to follow: Wash and Dry Your Feet Daily Use mild soaps Use warm water Pat your skin dry; do not rub. Thoroughly dry your feet. After washing, use lotion on your feet to prevent cracking. Do not put lotion between your toes. Examine Your Feet Each Day Check the tops and bottoms of your feet. Have someone else look at your feet if you cannot see them. Check for dry, cracked skin. Look for blisters, cuts, scratches, or other sores. Check for redness, increased warmth, or tenderness when touching any area of your feet. Check for ingrown toenails, corns, and calluses. If you get a blister or sore from your shoes, do not pop it. Apply a bandage and wear a different pair of shoes. Take Care of Your Toenails Cut toenails after bathing, when they are soft. Cut toenails straight across and smooth with a nail file. Avoid cutting into the corners of toes. Do not cut cuticles. If you have neuropathy (or decreased sensation in your feet) a web programmer should always cut your toenails. Be Careful When Exercising Walk and exercise in comfortable shoes. Do not exercise when you have open sores on your feet. Protect Your Feet With Shoes and Socks Never go barefoot. Always protect your feet by wearing shoes or hard-soled slippers or footwear. Avoid shoes with high heels and pointed toes. Avoid shoes that expose your toes or heels (such as open-toed shoes or sandals). These types of shoes increase your risk for injury and potential infections. Try on new footwear with the type of socks you usually wear. Do not wear new shoes for more than an hour at a time. Change your socks daily. Look and feel inside your shoes before putting them on to make sure there are no foreign objects or rough areas. Avoid tight socks. Wear natural-fiber socks (cotton, wool, or a cotton-wool blend). Wear special shoes if your health care provider recommends them. Wear shoes/boots that will protect your feet from various weather conditions (cold, moisture, etc.). Make sure your shoes fit properly. If you have neuropathy (nerve damage), you may not notice that your shoes are too tight. Perform the footwear test described below. Footwear Test Use this simple test to see if your shoes fit correctly: Stand on a piece of paper. (Make sure you are standing and not sitting, because your foot changes shape when you stand.) Trace the outline of your foot. Trace the outline of your shoe. Compare the tracings: Is the shoe too narrow? Is your foot crammed into the shoe? The shoe should be at least 1/2 inch longer than your longest toe and as wide as your foot. Proper Shoe Choices The following types of shoes are best for people with diabetes Closed toes and heels Leather uppers without a seam inside At least 1/2 inch extra space at the end of your longest toe Inside of shoe should be soft with no rough areas Outer sole should be made of stiff material Shoes should be at least as wide as your feet Tips for Foot Care in Diabetes Don't wait to treat a minor foot problem if you have diabetes. Follow your health care provider's guidelines and first aid guidelines. Report foot injuries and infections to your health care provider immediately. Check water temperature with your elbow, not your foot. Do not use a heating pad on your feet. Do not cross your legs. Do not self-treat your corns, calluses, or other foot problems. Go to your health care provider or web programmer to treat these conditions. documented in this encounter [facility] 12-11-2024 Note HNO ID: [id number] Author: HOLLI JOHNSON LPN Service: ? Author Type: LICENSED NURSE Type: Progress Notes Filed: 12/11/2024 08:58 Note Text: AMB ROOMING INTAKE FLOWSHEET DATA Pain Pain Level: 4 Pain Location: Toe Description: Sore Duration Units: Months Frequency: Intermittent Intervention/Comfort measure: Relaxation, Reposition Patient presents with: Right Foot - Established Patient, Pain, nail care Left Foot - Established Patient, Pain, nail care Holli Johnson LPN [facility] 12-10-2024 Telephone encounter Note Prescription Refill Information The patient has been identified by name and date of : Yes Caregiver verified no other encounters exist for this prescription request: Yes Caregiver confirmed with patient/requestor that no other refills are due, in the near future, with this provider at this time: Yes The last office visit in the department: 12-05-24 Does the patient have a future office visit with this provider/department: Yes Requested Prescriptions Pending Prescriptions Disp Refills amLODIPine (NORVASC) 2.5 mg tablet 90 tablet 3 Sig: Take 1 tablet by mouth once daily. Maryellen Greenberg December 10, 2024 8:02 AM [facility] 12-10-2024 Miscellaneous Notes Prescription Refill Information The patient has been identified by name and date of : Yes Caregiver verified no other encounters exist for this prescription request: Yes Caregiver confirmed with patient/requestor that no other refills are due, in the near future, with this provider at this time: Yes The last office visit in the department: 12-05-24 Does the patient have a future office visit with this provider/department: Yes Requested Prescriptions Pending Prescriptions Disp Refills amLODIPine (NORVASC) 2.5 mg tablet 90 tablet 3 Sig: Take 1 tablet by mouth once daily. Maryellen Greenberg December 10, 2024 8:02 AM documented in this encounter [facility] 12-05-2024 Note HNO ID: [id number] Author: GALINDO YUAN MD Service: ? Author Type: Physician Type: Progress Notes Filed: 12/05/2024 13:42 Note Text: This note was created using Mavenlinkriter. Subjective Jg Chahal is a 84 year old male. He developed left testicle pain one week ago, varying in severity, aggravated by sitting down and certain movements, but no self palpation. He denied trauma, urinary symptoms, or swelling. Review of Systems Constitutional: Negative for chills and fever. Gastrointestinal: Negative for abdominal pain, nausea and vomiting. Genitourinary: Negative for dysuria, hematuria and penile discharge. 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 Obesity, Class I, Bmi 30-34.9 Sleep Terrors Oropharyngeal Dysphagia Cervical Spondylosis Stable Angina (Hcc) Social History Tobacco Use Smoking status: Never Smokeless tobacco: Never Vaping Use Vaping status: Never Used Substance Use Topics Alcohol use: No Drug use: No Current Outpatient Medications Medication Sig doxycycline (VIBRA-TABS) 100 mg tablet Take 1 tablet by mouth two times a day for 5 days. dofetilide (TIKOSYN) 250 mcg capsule Take 1 capsule by mouth two times a day. pantoprazole DR (PROTONIX) 40 mg tablet TAKE ONE TABLET BY MOUTH DAILY ON EMPTY STOMACH ONE-HALF HOUR BEFORE BREAKFAST apixaban (ELIQUIS) 5 mg tab(s) Take 1 tablet by mouth two times a day. atorvastatin (LIPITOR) 40 mg tablet Take 1 tablet by mouth once daily. metoprolol succinate ER (TOPROL XL) 25 mg 24 hr tablet Take 1 tablet by mouth once daily. losartan (COZAAR) 50 mg tablet Take 1 tablet by mouth once daily. amLODIPine (NORVASC) 2.5 mg tablet Take 1 tablet by mouth once daily. clotrimazole-betamethasone (LOTRISONE) cream Apply to affected area twice daily. APPLY TO AFFECTED AREA nitroglycerin sublingual (NITROSTAT) 0.4 mg SL tablet Dissolve 1 tablet under the tongue every 5 minutes as needed for chest pain. blood sugar diagnostic (BLOOD GLUCOSE TEST) test strip Test blood sugar(s) 1 times daily. Dx: Type 2 DM - Controlled E11.42 Insulin: No TENS unit and electrodes cmpk Us as instructed. melatonin 3 mg tablet Take 1 tablet by mouth daily at bedtime. Lancets lancets Test blood sugar(s) 1 times daily. Dx: Type 2 DM - Controlled E11.42 Insulin: No CPAP Patient requesting new DME. Currently has a PAP device (2016 -- may be due for new device). Please fit with a Wisp (currently with Dream wisp and causing discomfort on top of head). Lifetime supplies. Amoxicillin 500 mg tablet Take 4 tablets by mouth as needed (1 hour before the procedure). docusate sodium (COLACE) 100 mg capsule AT BEDTIME magnesium oxide (MAG-OX) 400 mg tablet Take 1 tablet by mouth once daily. Cholecalciferol, Vitamin D3, 1,000 unit cap Take 1 capsule by mouth once daily. vitamin b complex (B COMPLETE) ORAL Tab Take 1 tablet by mouth once daily. No current facility-administered medications for this visit. Objective BP 118/70 Pulse (!) 56 Resp 16 Wt 96.3 kg (212 lb 4.9 oz) SpO2 94% BMI 33.25 kg/m? Physical Exam Constitutional: Appearance: He is not ill-appearing. Abdominal: Palpations: Abdomen is soft. There is no mass. Tenderness: There is no abdominal tenderness. Hernia: No hernia is present. There is no hernia in the left inguinal area or right inguinal area. Genitourinary: Penis: Uncircumcised. No discharge or lesions. Testes: Right: Mass, tenderness, swelling, testicular hydrocele or varicocele not present. Left: Tenderness present. Mass, swelling, testicular hydrocele or varicocele not present. Epididymis: Left: Tenderness present. No mass. Lymphadenopathy: Lower Body: No right inguinal adenopathy. No left inguinal adenopathy. Neurological: Mental Status: He is alert. Latest Ref Rng 12/05/2024 GLUCOSE UA (POCT) Negative mg/dL Negative BILIRUBIN UA (POCT) Negative Negative KETONE UA (POCT) Negative mg/dL Negative SPECIFIC GRAVITY UA (POCT) 1.005 - 1.030 1.020 HEMOGLOBIN/BLOOD UA (POCT) Negative Trace-intact ! PH UA (POCT) 4.5 - 8.0 6.0 PROTEIN UA (POCT) Negative mg/dL Negative UROBILINOGEN UA (POCT) Normal E.U./dL 0.2 NITRITE UA (POCT) Negative Negative LEUKOCYTES UA (POCT) Negative Negative COLOR UA (POCT) Yellow CLARITY UA (POCT) Migue (more content not included)... [facility] 12-05-2024 History of Present illness Narrative This note was created using Mavenlinkriter. Subjective Jg Chahal is a 84 year old male. He developed left testicle pain one week ago, varying in severity, aggravated by sitting down and certain movements, but no self palpation. He denied trauma, urinary symptoms, or swelling. Review of Systems Constitutional: Negative for chills and fever. Gastrointestinal: Negative for abdominal pain, nausea and vomiting. Genitourinary: Negative for dysuria, hematuria and penile discharge. 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 Obesity, Class I, Bmi 30-34.9 Sleep Terrors Oropharyngeal Dysphagia Cervical Spondylosis Stable Angina (Hcc) Social History Tobacco Use Smoking status: Never Smokeless tobacco: Never Vaping Use Vaping status: Never Used Substance Use Topics Alcohol use: No Drug use: No Current Outpatient Medications Medication Sig doxycycline (VIBRA-TABS) 100 mg tablet Take 1 tablet by mouth two times a day for 5 days. dofetilide (TIKOSYN) 250 mcg capsule Take 1 capsule by mouth two times a day. pantoprazole DR (PROTONIX) 40 mg tablet TAKE ONE TABLET BY MOUTH DAILY ON EMPTY STOMACH ONE-HALF HOUR BEFORE BREAKFAST apixaban (ELIQUIS) 5 mg tab(s) Take 1 tablet by mouth two times a day. atorvastatin (LIPITOR) 40 mg tablet Take 1 tablet by mouth once daily. metoprolol succinate ER (TOPROL XL) 25 mg 24 hr tablet Take 1 tablet by mouth once daily. losartan (COZAAR) 50 mg tablet Take 1 tablet by mouth once daily. amLODIPine (NORVASC) 2.5 mg tablet Take 1 tablet by mouth once daily. clotrimazole-betamethasone (LOTRISONE) cream Apply to affected area twice daily. APPLY TO AFFECTED AREA nitroglycerin sublingual (NITROSTAT) 0.4 mg SL tablet Dissolve 1 tablet under the tongue every 5 minutes as needed for chest pain. blood sugar diagnostic (BLOOD GLUCOSE TEST) test strip Test blood sugar(s) 1 times daily. Dx: Type 2 DM - Controlled E11.42 Insulin: No TENS unit and electrodes cmpk Us as instructed. melatonin 3 mg tablet Take 1 tablet by mouth daily at bedtime. Lancets lancets Test blood sugar(s) 1 times daily. Dx: Type 2 DM - Controlled E11.42 Insulin: No CPAP Patient requesting new DME. Currently has a PAP device (2015 -- may be due for new device). Please fit with a Wisp (currently with Dream wisp and causing discomfort on top of head). Lifetime supplies. Amoxicillin 500 mg tablet Take 4 tablets by mouth as needed (1 hour before the procedure). docusate sodium (COLACE) 100 mg capsule AT BEDTIME magnesium oxide (MAG-OX) 400 mg tablet Take 1 tablet by mouth once daily. Cholecalciferol, Vitamin D3, 1,000 unit cap Take 1 capsule by mouth once daily. vitamin b complex (B COMPLETE) ORAL Tab Take 1 tablet by mouth once daily. No current facility-administered medications for this visit. Objective BP 118/70 Pulse (!) 56 Resp 16 Wt 96.3 kg (212 lb 4.9 oz) SpO2 94% BMI 33.25 kg/m Physical Exam Constitutional: Appearance: He is not ill-appearing. Abdominal: Palpations: Abdomen is soft. There is no mass. Tenderness: There is no abdominal tenderness. Hernia: No hernia is present. There is no hernia in the left inguinal area or right inguinal area. Genitourinary: Penis: Uncircumcised. No discharge or lesions. Testes: Right: Mass, tenderness, swelling, testicular hydrocele or varicocele not present. Left: Tenderness present. Mass, swelling, testicular hydrocele or varicocele not present. Epididymis: Left: Tenderness present. No mass. Lymphadenopathy: Lower Body: No right inguinal adenopathy. No left inguinal adenopathy. Neurological: Mental Status: He is alert. Latest Ref Rng 12/05/2024 GLUCOSE UA (POCT) Negative mg/dL Negative BILIRUBIN UA (POCT) Negative Negative KETONE UA (POCT) Negative mg/dL Negative SPECIFIC GRAVITY UA (POCT) 1.005 - 1.030 1.020 HEMOGLOBIN/BLOOD UA (POCT) Negative Trace-intact ! PH UA (POCT) 4.5 - 8.0 6.0 PROTEIN UA (POCT) Negative mg/dL Negative UROBILINOGEN UA (POCT) Normal E.U./dL 0.2 NITRITE UA (POCT) Negative Negative LEUKOCYTES UA (POCT) Negative Negative COLOR UA (POCT) Yellow CLARITY UA (POCT) Clear Legend: ! Abnormal Assessment and Plan 1. Epididymitis - ICD9: 604.90, ICD10: N45.1 Supportive care. Empiric antibiotic. Call if not better or worse. - DOXYCYCLINE HYCLATE 100 MG TABLET - UA DIP, URINE (POC) Galindo Yuan MD documented in this encounter [facility] 12-03-2024 Telephone encounter Note Procedure: SCS Trial Procedure Date: TBD Patient completed office visit with Dr. Pop on 12/03/2024. Recommendations: Mr. Chahal appears to be an excellent candidate for the SCS and it is recommended that he proceed to the trial of the spinal cord stimulator. He was instructed in the need to maintain a journal of activities, pain, sleep, what he likes and does not like about the process in order to determine whether or not to continue to permanent implant. If he does well with the trial, and would like to continue to permanent implant, it would be so indicated. Lumbar MRI: 02/19/2024 Thoracic XRAY: 10/02/2024 Patient to be discussed with Dr. Bowling during next available office day. [facility] 12-03-2024 Miscellaneous Notes Procedure: SCS Trial Procedure Date: TBD Patient completed office visit with Dr. Pop on 12/03/2024. Recommendations: Mr. Chahal appears to be an excellent candidate for the SCS and it is recommended that he proceed to the trial of the spinal cord stimulator. He was instructed in the need to maintain a journal of activities, pain, sleep, what he likes and does not like about the process in order to determine whether or not to continue to permanent implant. If he does well with the trial, and would like to continue to permanent implant, it would be so indicated. Lumbar MRI: 02/19/2024 Thoracic XRAY: 10/02/2024 Patient to be discussed with Dr. Bowling during next available office day. documented in this encounter [facility] 12-03-2024 History of Present illness Narrative [facility] PA[facility]NAG[facility]HAVIORAL MEDICINE EVALUATION REFERRING PHYSICIAN: Renan Bowling MD ATTENDING PHYSICIAN: Silvia Massey, PHD Jg Chahal PATIENT TYPE: [facility] : 1940 DATE OF SERVICE: December 03, 2024 IDENTIFYING INFORMATION Jg Chahal is a 84 year old male from [place], [place] who is referred for evaluation by Renan Bowling MD to determine if he would be an appropriate candidate for a spinal cord stimulator. He was accompanied to his appointment by his spouse, Kerri. It is his understanding that Dr. Bowling would do the trial, and if he moves to permanent implant, he would see someone at [facility]. PRESENTING COMPLAINT He presents with failed back surgery syndrome, M96.1; chronic midline thoracic pain, M54.6, G89.29. His pain is in his center back down to his left hip with the usual intensity of 7, subsiding to 2, and escalating to 10. He describes it as being like a severe toothache. It is exacerbated by standing, walking distances, and alleviated by sitting or lying down. CIRCUMSTANCES OF ONSET His pain severity began about 3 years ago. He does have a history of falling down a flight of stairs. He has had 3 back surgeries including lumbar fusion and does not want any more surgery. OTHER PHYSICAL CONDITIONS There are no active hospital problems to display for this patient. 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 Dr. Tee Clemons, Dermatology Basal cell carcinoma (BCC) of skin of face Mohs 04/2021 Cervical spondylosis 09/25/2022 Coronary atherosclerosis of unspecified type of vessel, [place] or graft 01/22/2006 moderate Diverticulosis of colon (without mention of hemorrhage) 07/18/2005 Dyslipidemia Dyspepsia and other specified disorders of function of stomach 07/18/2005 Chronic gastritis, Dyspepsia. Gastric ulcer, unspecified as acute or chronic, without mention of hemorrhage or perforation, with obstruction Generalized osteoarthrosis, unspecified site 07/18/2005 H. pylori infection 05/30/2011 HTN (hypertension) Hypertensive 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 4 chronic kidney disease, or unspecified chronic kidney disease 07/18/2005 Impaired fasting glucose 07/18/2005 Lipoprotein deficiencies 07/18/2005 Low HDL. Lumbago 08/26/2008 Dr. Odin Coon, [facility]. Rotator cuff tear, right 10/21/2012 Salmonella enteritis 08/2010 Type II or unspecified type diabetes mellitus without mention of complication, not stated as uncontrolled 07/08/2007 Unspecified essential hypertension 07/18/2005 PAST SURGICAL HISTORY Procedure Laterality Date ARTHROSCOPY KNEE DIAGNOSTIC W/WO SYNOVIAL BX SPX 11/2003 Arthroscopy, knee ARTHRP ACETBLR/PROX FEM PROSTC AGRFT/ALGRFT Right 08/07/2016 Hip replacement, total ARTHRP KNE CONDYLE&PLATU MEDIAL&LAT COMPARTMENTS 2002 Knee replacement, total, left ARTHRP KNE CONDYLE&PLATU MEDIAL&LAT COMPARTMENTS Left 10/01/2017 revision L TKA, [facility] CC ABLATION SVT 04/06/2017 EP study, ablation for A.fib. COLONOSCOPY FLX DX W/COLLJ SPEC WHEN PFRMD 12/24/2002 Colonoscopy COLONOSCOPY FLX DX W/COLLJ SPEC WHEN PFRMD 05/11/2011 Colonoscopy ESOPHAGOGASTRODUODENOSCOPY TRANSORAL DIAGNOSTIC 03/18/2007 EGD ESOPHAGOGASTRODUODENOSCOPY TRANSORAL DIAGNOSTIC 06/11/2007 EGD ESOPHAGOGASTRODUODENOSCOPY TRANSORAL DIAGNOSTIC 05/11/2011 EGD LOPEZ W/O FACETEC FORAMOT/DSC 1/2 VRT SGM CRV 2000 Laminectomy, cervical LAMINECTOMY W/O FFD > 2 VERT SEG LUMBAR 11/05/2008 lumbar fusion LAMINOTOMY (HEMILAMINECTOMY), WITH DECOMPRESSION OF NERVE ROOT(S) Bilateral 05/02/2019 Revision hemilaminectomies L2,L3,L4-L5 LEFT HEART CATH,PERCUTANEOUS 01/22/2006 Cardiac cath, L heart LEFT HEART CATH,PERCUTANEOUS 05/31/2011 Cardiac cath, L heart LEFT HEART CATH,PERCUTANEOUS 11/27/2011 Cardiac cath, L heart LEFT HEART CATH,PERCUTANEOUS 11/27/2013 Cardiac cath, L heart NEUROPLASTY &/TRANSPOS MEDIAN NRV CARPAL TUNNE 1995 Carpal tunnel decomp R/L OPEN REPAIR OF ROTATOR CUFF ACUTE 1996 Rotator cuff repair, bilateral OPEN REPAIR OF ROTATOR CUFF CHRONIC Left 12/28/2014 Left shoulder open rotator cuff repair and Sub Ac decompression SHX TOTAL SHOULDER REVERSE Left 02/01/2022 Left reverse total shoulder arthroplasty TRANSCATH STENT INIT VESSEL,PERCUT 08/26/2009 Transcath stent init vessel percut TRANSCATH STENT INIT VESSEL,PERCUT 11/16/2010 Transcath stent init vessel percut RELEVANT MEDICAL HISTORY He has had interventional procedures without relief. He states he was told he is not a candidate for physical therapy. He has not seen a psychologist or psychiatrist. He has a TENS unit that helps his neck, but has not been beneficial for his back. He was asked what treatments have helped the most, and states that he has been worse since his last surgery. He did not identify anything that helped. CURRENT MEDICATIONS Current Outpatient Medications Medication Sig Dispense Refill dofetilide (TIKOSYN) 250 mcg capsule Take 1 capsule by mouth two times a day. [address] (PROTONIX) 40 mg tablet TAKE ONE TABLET BY MOUTH DAILY ON EMPTY STOMACH ONE-HALF HOUR BEFORE BREAKFAST 90 tablet 3 apixaban (ELIQUIS) 5 mg tab(s) Take 1 tablet by mouth two times a day. 180 tablet 3 atorvastatin (LIPITOR) 40 mg tablet Take 1 tablet by mouth once daily. 90 tablet 3 metoprolol succinate ER (TOPROL XL) 25 mg 24 hr tablet Take 1 tablet by mouth once daily. 90 tablet 3 losartan (COZAAR) 50 mg tablet Take 1 tablet by mouth once daily. 90 tablet 3 amLODIPine (NORVASC) 2.5 mg tablet Take 1 tablet by mouth once daily. 90 tablet 3 clotrimazole-betamethasone (LOTRISONE) cream Apply to affected area twice daily. APPLY TO AFFECTED AREA 45 g 2 nitroglycerin sublingual (NITROSTAT) 0.4 mg SL tablet Dissolve 1 tablet under the tongue every 5 minutes as needed for chest pain. 26 tablet 2 blood sugar diagnostic (BLOOD GLUCOSE TEST) test strip Test blood sugar(s) 1 times daily. Dx: Type 2 DM - Controlled E11.42 Insulin: No 50 Strip 5 TENS unit and electrodes cmpk Us as instructed. 1 Kit 0 melatonin 3 mg tablet Take 1 tablet by mouth daily at bedtime. 90 tablet 3 Lancets lancets Test blood sugar(s) 1 times daily. Dx: Type 2 DM - Controlled E11. Insulin: No 100 Each 3 CPAP Patient requesting new DME. Currently has a PAP device (2016 -- may be due for new device). Please fit with a Wisp (currently with Dream wisp and causing discomfort on top of head). Lifetime supplies. 1 Each 9999 Amoxicillin 500 mg tablet Take 4 tablets by mouth as needed (1 hour before the procedure). 4 tablet 0 docusate sodium (COLACE) 100 mg capsule AT BEDTIME magnesium oxide (MAG-OX) 400 mg tablet Take 1 tablet by mouth once daily. 90 tablet 3 Cholecalciferol, Vitamin D3, 1,000 unit cap Take 1 capsule by mouth once daily. 0 vitamin b complex (B COMPLETE) ORAL Tab Take 1 tablet by mouth once daily. 100 tablet 4 No current facility-administered medications for this visit. ALLERGIES ALLERGIES Allergen Reactions Adhesive Hives Codeine HEART PALPITATIONS Darvocet-N 100 [Pro* Intolerance Heart racing Latex Hives Meperidine Hcl SUBSTANCE USE He denies alcohol, tobacco, marijuana, CBD consumption. Caffeine involves Dr. Garcia and tea. He denies any history of substance abuse. FAMILY HISTORY His mother lived to age 89; his father at age 65 of lymphoma. They had been together. He has 2 older brothers and reports having a great relationship with his family of origin, with no history of being abused. He is 65-1/2 years with no previous marriages. He has 2 grown daughters and a son. He and his live in a house they described as accessible; however, their bedroom is upstairs. They do have a bedroom on the first floor where they could stay, and he was encouraged to do that, particularly while going through the stimulator process. His is a homemaker. He describes her as great; she's a wonderful person. EDUCATION/EMPLOYMENT He is a high school graduate, no background. 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 He last worked at age 62. INTERVIEW He arrived for his appointment neatly groomed, with good attention to personal hygiene. He was able to sit throughout his session, but ambulates with a cane. He was friendly, pleasant, and cooperative. He denies problems with memory or concentration. He denies mood changes, anxiety, depression, anger. He is frustrated with himself, and irritable at times when he is in pain. He denies suicidal ideation. He occasionally has difficulty with sleep onset, noting he has to lie down for 15 to 20 minutes to ease his pain before he is able to function. He does not have trouble maintaining sleep for 4 or 5 hours. He does exercise including daily stretching and walking. He states he has not relinquished any activities because of his pain. Social and leisure activities are pretty much limited to being with his family, which he enjoys. He works on crossword puzzles, picture puzzles and listens to [employer] music; he and his enjoyed dancing, but they are no longer able to do that. They both enjoy outdoors activities in the summer. If he had some relief from his pain, he would like to do more woodworking. He was asked about expectations for stimulator and states I hope it works. He states he would be satisfied with 50-60% relief. We discussed the stimulator in detail including the difference between that and a TENS unit. We reviewed pulse generation, high-frequency, and closed-loop functions as well as the trial process, permanent implant, and recharging. TESTS ADMINISTERED 1. Landrum Depression Inventory (BDI-II) 2. Oswestry Disability Index 3. Personality Assessment Inventory (GLORIA) 4. Chronic Pain Coping Inventory (CPCI) TEST INTERPRETATION His score of 10 on the BDI suggests he sees himself as having only mild/minimal depression. His score of 8 on the Oswestry suggests he only sees himself as mildly disabled. He was administered the CPCI, which is interpreted anecdotally as he exceeds the age limit, but it does provide information on how he views himself. On illness focused coping strategies he is on the borderline of adaptive for resting, indicating he does not have too much downtime. He shows a need for moderate improvement in guarding, which involves avoiding people, places, activities because of his pain, and asking for assistance, both of which are in the moderate/subclinical range, but again with his age are not of any significance. He does very well on wellness focused coping strategies with seeking social support, coping self statements, and relaxation skills all being in the adaptive range, with task persistence and pacing very close to adaptive and only a mild need for improvement in exercise/stretching, which is in the moderate/subclinical range. He was also administered the Personality Assessment Inventory, the results of which suggest he responded to test items in a slightly defensive manner, but in an individual who appears to want help for his problems. His profile is valid and interpretable. He sees himself as having only mild health concerns, with a high focus on them, and no tendency to convert emotions into physical symptoms. He reports mild anxiety, with just mild anxiety related issues. He reports the emotional component of depression to be low to mild with a more moderate elevation on physical aspects, likely to include fatigue, lack of energy, sleep disturbance, perceptual disturbance, but overall energy levels appear to be reasonable. There are no indications of any major psychological/psychiatric disorder nor personality disorder that would preclude doing well with the stimulator. There are no indications of substance abuse. He denies anger, denies suicidal ideation, sees himself as having low stress, good support, but not a lot of control over his life at this point in time. He is likely to be someone who has autonomy and balance in his life, with normal assertiveness, friendliness, and concern for others. IMPRESSIONS 1. 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 Bowling doing the trial, and if successful being seen at [facility] [place] for permanent implant. If he had some relief from his pain, he would like to do more woodworking. He was asked about expectations for stimulator and states I hope it works. He states he would be satisfied with 50-60% relief. We discussed the stimulator in detail including the difference between that and a TENS unit. We reviewed pulse generation, high-frequency, and closed-loop functions as well as the trial process, permanent implant, and recharging. 2. 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 3. He does try to help himself through exercising including walking and daily stretching. He enjoys working on crossword puzzles picture puzzles, listening to '50s music and having outdoor activities in the warm weather. 4. His goal is to be more active with his woodworking. 5. He has had 3 back surgeries and likes the idea of the stimulator as he does not want further back surgery 6. There are no psychological/psychiatric factors nor personality disorders that would preclude doing well with the stimulator. 7. He was asked about expectations for stimulator and states I hope it works. He states he would be satisfied with 50-60% relief. We discussed the stimulator in detail including the difference between that and a TENS unit. We reviewed pulse generation, high-frequency, and closed-loop functions as well as the trial process, permanent implant, and recharging. RECOMMENDATIONS 1. Mr. Chahal appears to be an excellent candidate for the SCS and it is recommended that he proceed to the trial of the spinal cord stimulator. 2. He was instructed in the need to maintain a journal of activities, pain, sleep, what he likes and does not like about the process in order to determine whether or not to continue to permanent implant. 3. If he does well with the trial, and would like to continue to permanent implant, it would be so indicated. Silvia Massey, PHD documented in this encounter [facility] 11-25-2024 Telephone encounter Note Next office appointment 12/23/24 Maryanne Colunga MA [facility] 11-25-2024 Miscellaneous Notes Next office appointment 12/23/24 Maryanne Colunga MA Prescription Refill Information The patient has been identified by name and date of : Yes Caregiver verified no other encounters exist for this prescription request: Yes Caregiver confirmed with patient/requestor that no other refills are due, in the near future, with this provider at this time: Yes The last office visit in the department: 11-05-24 Does the patient have a future office visit with this provider/department: Yes Requested Prescriptions Pending Prescriptions Disp Refills dofetilide (TIKOSYN) 250 mcg capsule 180 capsule 3 Sig: Take 1 capsule by mouth two times a day. pantoprazole DR (PROTONIX) 40 mg tablet 90 tablet 3 Sig: TAKE ONE TABLET BY MOUTH DAILY ON EMPTY STOMACH ONE-HALF HOUR BEFORE BREAKFAST Patient is also asking the name of the psychiatrist in [place]. Please return call to patient. Chelsey Casillas November 25, 2024 1:05 PM documented in this encounter [facility] 11-25-2024 Telephone encounter Note Prescription Refill Information The patient has been identified by name and date of : Yes Caregiver verified no other encounters exist for this prescription request: Yes Caregiver confirmed with patient/requestor that no other refills are due, in the near future, with this provider at this time: Yes The last office visit in the department: 11-05-24 Does the patient have a future office visit with this provider/department: Yes Requested Prescriptions Pending Prescriptions Disp Refills dofetilide (TIKOSYN) 250 mcg capsule 180 capsule 3 Sig: Take 1 capsule by mouth two times a day. pantoprazole DR (PROTONIX) 40 mg tablet 90 tablet 3 Sig: TAKE ONE TABLET BY MOUTH DAILY ON EMPTY STOMACH ONE-HALF HOUR BEFORE BREAKFAST Patient is also asking the name of the psychiatrist in [place]. Please return call to patient. Chelsey Casillas November 25, 2024 1:05 PM [facility] 11-24-2024 Telephone encounter Note Called and spoke with the patient's granddaughter and informed her that it can be any psychologist as long as they do clearances for SCS trials. The patient's granddaughter is going to contact a place closer to them. I informed the patient's granddaughter that we will need the OV notes or a letter clearing the patient for SCS trial fax to our office. Patient's granddaughter verbalized understanding. [facility] 11-24-2024 Miscellaneous Notes Called and spoke with the patient's granddaughter and informed her that it can be any psychologist as long as they do clearances for SCS trials. The patient's granddaughter is going to contact a place closer to them. I informed the patient's granddaughter that we will need the OV notes or a letter clearing the patient for SCS trial fax to our office. Patient's granddaughter verbalized understanding. Patient's granddaughter contacted Pain Management with voicemail on 11/24/2024 at 1238 inquiring if patient can schedule with a provider other than Dr. Pop for his psychological testing prior to his spinal cord stimulator (SCS) trial. Patient's granddaughter stating that patient has been unable to schedule an appointment with Dr. Pop. Patient's granddaughter requesting return telephone call at [phone]. CRISTIN: 10/01/2024 w/Dr. Bowling PLAN: The patient status post lumbar fusion surgery with chronic persistent back pain and left radicular pain symptoms. He has had injections multiple times with temporary relief but still having persistent pain that is worsening. His activity level is decreased significantly and is only able to ambulate for short distances. The patient does not want to proceed with any major surgical procedures at this time. The recommendation is to proceed with spinal cord stimulation trial. The rationale behind the procedure as well as risk and benefits were discussed with the patient. The patient understands and wishes to proceed. No new medication was prescribed. Encouraged regular home exercise program. F/U in 1 week after the spinal cord stimulation trial. documented in this encounter [facility] 11-24-2024 Telephone encounter Note Patient's granddaughter contacted Pain Management with voicemail on 11/24/2024 at 1238 inquiring if patient can schedule with a provider other than Dr. Pop for his psychological testing prior to his spinal cord stimulator (SCS) trial. Patient's granddaughter stating that patient has been unable to schedule an appointment with Dr. Pop. Patient's granddaughter requesting return telephone call at [phone]. CRISTIN: 10/01/2024 w/Dr. Bowling PLAN: The patient status post lumbar fusion surgery with chronic persistent back pain and left radicular pain symptoms. He has had injections multiple times with temporary relief but still having persistent pain that is worsening. His activity level is decreased significantly and is only able to ambulate for short distances. The patient does not want to proceed with any major surgical procedures at this time. The recommendation is to proceed with spinal cord stimulation trial. The rationale behind the procedure as well as risk and benefits were discussed with the patient. The patient understands and wishes to proceed. No new medication was prescribed. Encouraged regular home exercise program. F/U in 1 week after the spinal cord stimulation trial. [facility] 11-05-2024 Note HNO ID: [id number] Author: SUSSY NG LPN Service: ? Author Type: LICENSED NURSE Type: Progress Notes Filed: 11/05/2024 11:05 Note Text: Patient presents for Flu vaccine. Denies any problems at this time. Tolerated injection well. Sussy Ng LPN [facility] 11-05-2024 History of Present illness Narrative Patient presents for Flu vaccine. Denies any problems at this time. Tolerated injection well. Sussy Ng LPN documented in this encounter [facility] 10-14-2024 Telephone encounter Note MyChart message read: Last read by Jr Mralee Chahal at 5:23 PM on 10/13/2024. [facility] 10-14-2024 Miscellaneous Notes MyChart message read: Last read by Jr Chahal at 5:23 PM on 10/13/2024. Thoracic XRAY obtained for potential spinal cord stimulator (SCS) trial. MyChart message sent. documented in this encounter [facility] 10-13-2024 Telephone encounter Note Thoracic XRAY obtained for potential spinal cord stimulator (SCS) trial. MyChart message sent. [facility] 10-02-2024 History of Present illness Narrative Radiology Service Progress Note PATIENT NAME: Jg Chahal DATE OF SERVICE: October 02, 2024 TIME: 9:22 AM PATIENT IDENTITY VERIFICATION COMPLETED USING TWO (2) IDENTIFIERS: Name and Date of confirmed by patient verbally. FALL SCREENING: Has the patient had 2 falls in the last year or 1 fall with injury or currently using an Ambulatory Assistive Device (Walker, Cane, Wheelchair, Crutches, etc.)? Yes, Patient High Risk for Falls What interventions were put in place to prevent falls during this visit? Offered Assistance with Transfers/Clothing and Instructed Patient to Remain Seated (Not on Exam Table) Until Exam PATIENT GENDER DATA: Male PATIENT RELEVANT IMPLANT DATA REVIEWED: Not Applicable PATIENT PRESENTS WITH AN IMPLANTABLE OR ATTACHED LIBRARY SPECIALIST: No RADIOLOGY DEPARTMENT: General X-ray: Exam(s) Completed: Spine X-Ray(s): Thoracic PERIPHERAL IV DATA: Not applicable SIGNED BY: RT Yareli(R) October 02, 2024 9:22 AM documented in this encounter [facility] 10-02-2024 Note HNO ID: [id number] Author: PRAVEEN ALFORD RT(R) Service: Radiology Author Type: Technologist Type: Progress Notes Filed: 10/02/2024 09:31 Note Text: Radiology Service Progress Note PATIENT NAME: Jg Chahal DATE OF SERVICE: October 02, 2024 TIME: 9:22 AM PATIENT IDENTITY VERIFICATION COMPLETED USING TWO (2) IDENTIFIERS: Name and Date of confirmed by patient verbally. FALL SCREENING: Has the patient had 2 falls in the last year or 1 fall with injury or currently using an Ambulatory Assistive Device (Walker, Cane, Wheelchair, Crutches, etc.)? Yes, Patient High Risk for Falls What interventions were put in place to prevent falls during this visit? Offered Assistance with Transfers/Clothing and Instructed Patient to Remain Seated (Not on Exam Table) Until Exam PATIENT GENDER DATA: Male PATIENT RELEVANT IMPLANT DATA REVIEWED: Not Applicable PATIENT PRESENTS WITH AN IMPLANTABLE OR ATTACHED LIBRARY SPECIALIST: No RADIOLOGY DEPARTMENT: General X-ray: Exam(s) Completed: Spine X-Ray(s): Thoracic PERIPHERAL IV DATA: Not applicable SIGNED BY: RT Yareli(R) October 02, 2024 9:22 AM [facility] 10-01-2024 Telephone encounter Note Prescription Refill Information The patient has been identified by name and date of : Yes Caregiver verified no other encounters exist for this prescription request: Yes Caregiver confirmed with patient/requestor that no other refills are due, in the near future, with this provider at this time: Yes The last office visit in the department: 06-20-24 Does the patient have a future office visit with this provider/department: Yes 12-23-24 Requested Prescriptions Pending Prescriptions Disp Refills apixaban (ELIQUIS) 5 mg tab(s) 180 tablet 3 Sig: Take 1 tablet by mouth two times a day. Alia Greenberg October 01, 2024 11:57 AM [facility] 10-01-2024 Miscellaneous Notes Prescription Refill Information The patient has been identified by name and date of : Yes Caregiver verified no other encounters exist for this prescription request: Yes Caregiver confirmed with patient/requestor that no other refills are due, in the near future, with this provider at this time: Yes The last office visit in the department: 06-20-24 Does the patient have a future office visit with this provider/department: Yes 12-23-24 Requested Prescriptions Pending Prescriptions Disp Refills apixaban (ELIQUIS) 5 mg tab(s) 180 tablet 3 Sig: Take 1 tablet by mouth two times a day. Alia Greenberg October 01, 2024 11:57 AM documented in this encounter [facility] 10-01-2024 Note HNO ID: [id number] Author: RENAN BOWLING MD Service: ? Author Type: Physician Type: Progress Notes Filed: 10/01/2024 10:38 Note Text: [facility] Date: October 01, 2024 - 9:20 AM Chief Complaint: back and leg pain SUBJECTIVE: Mr. Chahal presents to the [facility] for a follow up appointment regarding chronic lower back pain. He states that since the last visit symptoms have been persistent. The pain is located in the left lumbar region and gluteal region and radiates to the left lower extremity along the posterior aspect to the level of the posterior thigh. // The pain is described as aching and is rated as 6 on a scale of 0-10. Symptoms interfere with physical activity, walking, sleeping, and lifting. The pain is exacerbated by standing and walking. The pain is mitigated by sitting. He is not currently receiving medications through the [facility]. REVIEW OF SYSTEMS: Constitutional: (-) Fever (-) Night Sweats (-) Weight Gain (-) Weight Loss (-) Fatigue Cardiovascular: (-) Chest Pain (-) Palpitations (-) Lightheadedness (-) Swelling of Ankles (-) Hx Heart Surgery Respiratory: (-) Shortness of Breath (-) Cough (-) Wheezing (-) Snoring Gastrointestinal: (-) Incontinence (-) Abdominal Pain (-) Diarrhea (-) Constipation (-) Nausea/Vomiting (-) Heart Burn Endocrine: (-) Thyroid Disorder (-) Diabetes Hematologic: (-) Prolonged Bleeding (-) Easy Bruising Genitourinary: (-) Incontinence (-) Frequency (-) Urinary Urgency Skin: (-) Rashes (-) Itching (-) Other Lesions Neurologic: (-) Headache (-) Double Vision (-) Confusion (-) Paralysis Psychiatric: (-) Depression (-) Anxiety (-) Delusions (-) Hallucinations (-) Personal History of Alcohol or Substance Abuse (-) Family History of Alcohol or Substance Abuse PROMIS 02/13/2024 PROMIS CAT Pain Interference PROMIS Pain Interference T-Score (range: 10 - 90) 63 (moderate) PROMIS Pain Interference Percentile 10 PROMIS Adult Short Form-Global Health Score (Mental) 45.8 (Good) 02/13/2024 02/14/2023 PROMIS CAT Physical Function T-Score 38 (moderate dysfunction) 47 (within normal limits) Percentile 12 38 Percentiles provide an indication of how a patient?s score ranks in relation to the [place] general population. > 31st percentile is within normal limits or better * < 31st percentile is at least ? 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 Dr. Tee Clemons, Dermatology Basal cell carcinoma (BCC) of skin of face Mohs 04/2021 Cervical spondylosis 09/25/2022 Coronary atherosclerosis of unspecified type of vessel, [place] or graft 01/22/2006 moderate Diverticulosis of colon (without mention of hemorrhage) 07/18/2005 Dyslipidemia Dyspepsia and other specified disorders of function of stomach 07/18/2005 Chronic gastritis, Dyspepsia. Gastric ulcer, unspecified as acute or chronic, without mention of hemorrhage or perforation, with obstruction Generalized osteoarthrosis, unspecified site 07/18/2005 H. pylori infection 05/30/2011 HTN (hypertension) Hypertensive 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 4 chronic kidney disease, or unspecified chronic kidney disease 07/18/2005 Impaired fasting glucose 07/18/2005 Lipoprotein deficiencies 07/18/2005 Low HDL. Lumbago 08/26/2008 Dr. Odin Coon, [facility]. Rotator cuff tear, right 10/21/2012 Salmonella enteritis 08/2010 Type II or unspecified type diabetes mellitus without mention of complication, not stated as uncontrolled 07/08/2007 Unspecified essential hypertension 07/18/2005 PAST SURGICAL HISTORY Procedure Laterality Date ARTHROSCOPY KNEE DIAGNOSTIC W/WO SYNOVIAL BX SPX 11/2003 Arthroscopy, knee ARTHRP ACETBLR/PROX FEM PROSTC AGRFT/ALGRFT Right 08/07/2016 Hip replacement, total ARTHRP KNE CONDYLEANDPLATU MEDIALANDLAT COMPARTMENTS 2001 Knee replacement, total, left ARTHRP KNE CONDYLEANDPLATU MEDIALANDLAT COMPARTMENTS Left 10/01/2017 revision L TKA, [facility] CC ABLATION SVT 04/06/2017 EP study, ablation for A.fib. COLONOSCOPY FLX DX W/COLLJ SPEC WHEN PFRMD 12/24/2002 Colonoscopy COLONOSCOPY FLX DX W/COLLJ SPEC WHEN PFRMD 05/11/2011 Colonoscopy (more content not included)... [facility] 10-01-2024 History of Present illness Narrative Images from the original note were not included. [facility] Date: October 01, 2024 - 9:20 AM Chief Complaint: back and leg pain SUBJECTIVE: Mr. Chahal presents to the [facility] for a follow up appointment regarding chronic lower back pain. He states that since the last visit symptoms have been persistent. The pain is located in the left lumbar region and gluteal region and radiates to the left lower extremity along the posterior aspect to the level of the posterior thigh. // The pain is described as aching and is rated as 6 on a scale of 0-10. Symptoms interfere with physical activity, walking, sleeping, and lifting. The pain is exacerbated by standing and walking. The pain is mitigated by sitting. He is not currently receiving medications through the [facility]. REVIEW OF SYSTEMS: Constitutional: (-) Fever (-) Night Sweats (-) Weight Gain (-) Weight Loss (-) Fatigue Cardiovascular: (-) Chest Pain (-) Palpitations (-) Lightheadedness (-) Swelling of Ankles (-) Hx Heart Surgery Respiratory: (-) Shortness of Breath (-) Cough (-) Wheezing (-) Snoring Gastrointestinal: (-) Incontinence (-) Abdominal Pain (-) Diarrhea (-) Constipation (-) Nausea/Vomiting (-) Heart Burn Endocrine: (-) Thyroid Disorder (-) Diabetes Hematologic: (-) Prolonged Bleeding (-) Easy Bruising Genitourinary: (-) Incontinence (-) Frequency (-) Urinary Urgency Skin: (-) Rashes (-) Itching (-) Other Lesions Neurologic: (-) Headache (-) Double Vision (-) Confusion (-) Paralysis Psychiatric: (-) Depression (-) Anxiety (-) Delusions (-) Hallucinations (-) Personal History of Alcohol or Substance Abuse (-) Family History of Alcohol or Substance Abuse PROMIS 02/13/2024 PROMIS CAT Pain Interference PROMIS Pain Interference T-Score (range: 10 - 90) 63 (moderate) PROMIS Pain Interference Percentile 10 PROMIS Adult Short Form-Global Health Score (Mental) 45.8 (Good) 02/13/2024 02/14/2023 PROMIS CAT Physical Function T-Score 38 (moderate dysfunction) 47 (within normal limits) Percentile 12 38 Percentiles provide an indication of how a patient s score ranks in relation to the [place] general population. > 31st percentile is within normal limits or better * < 31st percentile is at least SD worse than population, which may be clinically relevant < 16th percentile is at least 1 SD worse than population and warrants attention PAST MEDICAL HISTORY Diagnosis Date Abdominal pain, right lower quadrant 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 Dr. Tee Clemons, Dermatology Basal cell carcinoma (BCC) of skin of face Mohs 04/2021 Cervical spondylosis 09/25/2022 Coronary atherosclerosis of unspecified type of vessel, [place] or graft 01/22/2006 moderate Diverticulosis of colon (without mention of hemorrhage) 07/18/2005 Dyslipidemia Dyspepsia and other specified disorders of function of stomach 07/18/2005 Chronic gastritis, Dyspepsia. Gastric ulcer, unspecified as acute or chronic, without mention of hemorrhage or perforation, with obstruction Generalized osteoarthrosis, unspecified site 07/18/2005 H. pylori infection 05/30/2011 HTN (hypertension) Hypertensive 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 4 chronic kidney disease, or unspecified chronic kidney disease 07/18/2005 Impaired fasting glucose 07/18/2005 Lipoprotein deficiencies 07/18/2005 Low HDL. Lumbago 08/26/2008 Dr. Odin Coon, [facility]. Rotator cuff tear, right 10/21/2012 Salmonella enteritis 08/2010 Type II or unspecified type diabetes mellitus without mention of complication, not stated as uncontrolled 07/08/2007 Unspecified essential hypertension 07/18/2005 PAST SURGICAL HISTORY Procedure Laterality Date ARTHROSCOPY KNEE DIAGNOSTIC W/WO SYNOVIAL BX SPX 11/2003 Arthroscopy, knee ARTHRP ACETBLR/PROX FEM PROSTC AGRFT/ALGRFT Right 08/07/2016 Hip replacement, total ARTHRP KNE CONDYLE&PLATU MEDIAL&LAT COMPARTMENTS 2002 Knee replacement, total, left ARTHRP KNE CONDYLE&PLATU MEDIAL&LAT COMPARTMENTS Left 10/01/2017 revision L TKA, [facility] CC ABLATION SVT 04/06/2017 EP study, ablation for A.fib. COLONOSCOPY FLX DX W/COLLJ SPEC WHEN PFRMD 12/24/2002 Colonoscopy COLONOSCOPY FLX DX W/COLLJ SPEC WHEN PFRMD 05/11/2011 Colonoscopy ESOPHAGOGASTRODUODENOSCOPY TRANSORAL DIAGNOSTIC 03/18/2007 EGD ESOPHAGOGASTRODUODENOSCOPY TRANSORAL DIAGNOSTIC 06/11/2007 EGD ESOPHAGOGASTRODUODENOSCOPY TRANSORAL DIAGNOSTIC 05/11/2011 EGD LOPEZ W/O FACETEC FORAMOT/DSC 1/2 VRT SGM CRV 2000 Laminectomy, cervical LAMINECTOMY W/O FFD > 2 VERT SEG LUMBAR 11/05/2008 lumbar fusion LAMINOTOMY (HEMILAMINECTOMY), WITH DECOMPRESSION OF NERVE ROOT(S) Bilateral 05/02/2019 Revision hemilaminectomies L2,L3,L4-L5 LEFT HEART CATH,PERCUTANEOUS 01/22/2006 Cardiac cath, L heart LEFT HEART CATH,PERCUTANEOUS 05/31/2011 Cardiac cath, L heart LEFT HEART CATH,PERCUTANEOUS 11/27/2011 Cardiac cath, L heart LEFT HEART CATH,PERCUTANEOUS 11/27/2013 Cardiac cath, L heart NEUROPLASTY &/TRANSPOS MEDIAN NRV CARPAL TUNNE 1995 Carpal tunnel decomp R/L OPEN REPAIR OF ROTATOR CUFF ACUTE 1995 Rotator cuff repair, bilateral OPEN REPAIR OF ROTATOR CUFF CHRONIC Left 12/28/2014 Left shoulder open rotator cuff repair and Sub Ac decompression SHX TOTAL SHOULDER REVERSE Left 02/01/2022 Left reverse total shoulder arthroplasty TRANSCATH STENT INIT VESSEL,PERCUT 08/26/2009 Transcath stent init vessel percut TRANSCATH STENT INIT VESSEL,PERCUT 11/16/2010 Transcath stent init vessel percut ALLERGIES Allergen Reactions Adhesive Hives Codeine HEART PALPITATIONS Darvocet-N 100 [Pro* Intolerance Heart racing Latex Hives Meperidine Hcl Current Outpatient Medications Medication Sig atorvastatin (LIPITOR) 40 mg tablet Take 1 tablet by mouth once daily. metoprolol succinate ER (TOPROL XL) 25 mg 24 hr tablet Take 1 tablet by mouth once daily. losartan (COZAAR) 50 mg tablet Take 1 tablet by mouth once daily. amLODIPine (NORVASC) 2.5 mg tablet Take 1 tablet by mouth once daily. dofetilide (TIKOSYN) 250 mcg capsule Take 1 capsule by mouth two times a day. pantoprazole DR (PROTONIX) 40 mg tablet TAKE ONE TABLET BY MOUTH DAILY ON EMPTY STOMACH ONE-HALF HOUR BEFORE BREAKFAST apixaban (ELIQUIS) 5 mg tab(s) Take 1 tablet by mouth two times a day. clotrimazole-betamethasone (LOTRISONE) cream Apply to affected area twice daily. APPLY TO AFFECTED AREA nitroglycerin sublingual (NITROSTAT) 0.4 mg SL tablet Dissolve 1 tablet under the tongue every 5 minutes as needed for chest pain. blood sugar diagnostic (BLOOD GLUCOSE TEST) test strip Test blood sugar(s) 1 times daily. Dx: Type 2 DM - Controlled E11.42 Insulin: No TENS unit and electrodes cmpk Us as instructed. melatonin 3 mg tablet Take 1 tablet by mouth daily at bedtime. Lancets lancets Test blood sugar(s) 1 times daily. Dx: Type 2 DM - Controlled E11.42 Insulin: No CPAP Patient requesting new DME. Currently has a PAP device (2015 -- may be due for new device). Please fit with a Wisp (currently with Dream wisp and causing discomfort on top of head). Lifetime supplies. Amoxicillin 500 mg tablet Take 4 tablets by mouth as needed (1 hour before the procedure). docusate sodium (COLACE) 100 mg capsule AT BEDTIME magnesium oxide (MAG-OX) 400 mg tablet Take 1 tablet by mouth once daily. Cholecalciferol, Vitamin D3, 1,000 unit cap Take 1 capsule by mouth once daily. vitamin b complex (B COMPLETE) ORAL Tab Take 1 tablet by mouth once daily. Current Facility-Administered Medications Medication Dose Route Frequency perflutren lipid microspheres 1.3 mL in NaCl (PF) 0.9% 10 mL injection (DEFINITY) INTRAVENOUS DIRECTED PRN sodium chloride 0.9 % (flush) 10 mL (BD POSIFLUSH) 10 mL INTRAVENOUS DIRECTED PRN I have reviewed the nurses notes and I am aware of the family/social history. Since the last evaluation the medical history has not changed. PDMP website checked and validated. All prescriptions have been APPROPRIATELY filled. No suspicious activity was identified. 10/01/2024 by Renan Bowling MD Narcotic Agreement reviewed and signed?: N/A on October 01, 2024 Urine Panel: No results found for: UQCANN, UQBNZL, VKA7DDB, UQAMPH, UQMAMP, UQBUPRE, UQNORBUP, UQMTHD, UQEDDP, UQTRAM, UQDTRM, UQFNTL, UQNFTL, UQCODE, UQMORP, UQDCDN, UQHCOD, UQOXYC, UQHMOR, UQOXYM, UQCREA, UQPH, UQSPGR, UQOXID, UQSPQ The pain panel was N/A PHYSICAL EXAMINATION: Performed in conjunction with observation. The patient was alert and oriented x3. The patient was in no acute distress. Lungs: Clear, negative for dyspnea or distress. CVR: Regular Rate. Negative for SOB or peripheral edema. Neck: Supple. The range of motion was intact. Negative focal tenderness Back: Range of motion of the trunk was limited to mainly due to pain. Bilateral lumbosacral tenderness. SLR: Positive/equivocal on the left. Facet Loading: Equivocal with axial loading and extension. Extremities: no reported edema or erythema. Motor: Negative focal deficits Sensory: Intact light touch bilateral lower extremity to the level of the ankles Gait: Slow to stand with flexed posture. Only able to ambulate for short distances. Positive antalgic gait as he favors the left side. 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 Findings were discussed. Injection history was reviewed. Medication use and compliance were reviewed. 1. The patient status post lumbar fusion surgery with chronic persistent back pain and left radicular pain symptoms. He has had injections multiple times with temporary relief but still having persistent pain that is worsening. His activity level is decreased significantly and is only able to ambulate for short distances. The patient does not want to proceed with any major surgical procedures at this time. The recommendation is to proceed with spinal cord stimulation trial. 2. The rationale behind the procedure as well as risk and benefits were discussed with the patient. The patient understands and wishes to proceed. 3. No new medication was prescribed. 4. Encouraged regular home exercise program. 5) F/U in 1 week after the spinal cord stimulation trial. The treatment plan was discussed with the patient during the office visit and they verbalized an understanding of it. I have discussed and confirmed the above treatment plan with the patient and I have reviewed the nurses notes and I am aware of the family/social history. I have confirmed ROS findings. Renan Bowling MD cc: Dr. Galindo Yuan MD cc: No referring provider defined for this encounter. Phone: N/A Fax: Results of consultation to be transmitted via electronic medical record for those providers who practice within [facility] or with access to [employer] via MD Connect, or via letter. 1. This document has been created with the use of voice recognition technology. It may contain inaccuracies: (e.g. misspellings, inaccurate syntax or word sense) that have escaped review. 2. The nurse practitioner, nursing staff and medical assistants are a major part of YOUR TREATMENT TEAM and will be handling your phone calls and inquiries, if any. Unless explicitly told otherwise at the time of your office visit, your study results and ensuing treatment plans will be discussed during your follow-up appointment. If you do not have a follow-up appointment and wish to discuss any issues, please set up an appointment. 3. It is my practice to not fill disability or any other insurance-related forms/documentation. All of the office notes, study results, and other pertinent documentation generated as part of your evaluation will be available to you and to your Primary Care Physician (PCP). Use of this material to complete such forms will be at the discretion of your PCP/referring physician. documented in this encounter [facility] 09-25-2024 Progress note Formatting of t his note might be different from the original. Patient informed of pathology results via [place] [facility]. Maryellen Mitchell MD [facility] 09-25-2024 Miscellaneous Notes Patient informed of pathology results via [facility] [facility]. Maryellen Mitchell MD documented in this encounter [facility] 09-22-2024 Instructions Marie Rangel MA - 09/22/2024 1:20 PM EST WOUND CARE INSTRUCTIONS WITH REMOVABLE SUTURES WOUND CARE: The dressing you have been sent home with is called a pressure dressing. It should remain in place for 48 hours. To care for the wound: Remove pressure dressing after 48 hours. Tip: wet dressing in the shower to assist with adhesive removal. You can remove adhesive with soap, water, or alcohol pad. Clean with gentle soap and water twice daily. If you notice dried blood or scab, please use a small amount of hydrogen peroxide along the suture line Your main form of cleaning will be with soap and water Example of gentle soap: Dove, Dial, CeraVe, Cetaphil, Aveeno, or any non-scented bar of soap After wound is thoroughly cleansed and dried, apply a thick layer of Vaseline or Aquaphor to the suture line. Do NOT use polysporin or neosporin on your wound After 72 hours, may leave uncovered as long as it is kept greasy and won t interfere with clothing. If you need to have stitches removed, please make an appointment to return to the office in 7 days. This will be with a nurse only, unless you have been informed otherwise. Signs and symptoms of infection: Redness streaking away from the wound, swelling, new onset of pain, foul smelling drainage, pus, and generalized fevers/chills BLEEDING: Careful attention has been given to your wound to prevent bleeding. The initial dressing you have on is a pressure dressing to also help prevent bleeding. You may notice a small amount of blood on the edges of the dressing the first day; this is normal. In case of persistent bleeding: Apply firm, steady pressure over the dressing with gauze for 20 minutes. If bleeding persists, please apply firm pressure for another 30 minutes. Tip #1: use a timer to record the time of pressure held Tip #2: do not peek at wound until time is completed- this will disrupt clotting time of vessel Tip #3: you may also use ice, as this may aid in slowing any bleeding. If bleeding persists, please call the office using the numbers below. We will instruct you on how to proceed. PAIN: What pain can I expect after surgery? You can expect to have some pain after surgery. This is normal. The pain is typically worse for a day or two after surgery, and quickly begins to get better. Most patients are able to manage their pain after surgery with Swlc-lbz-Leikdwc (OTC) medications such as Tylenol (acetaminophen) and Motrin/Advil (ibuprofen). If you have a condition that does not allow you to take either of these medications, please notify us immediately. How will I manage my pain? The best strategy for controlling your pain after surgery is around the clock pain control with Tylenol (acetaminophen) and Motrin/Advil (ibuprofen). Alternating these medications with each other allows you to maximize your pain control. In addition to Tylenol and Motrin, you can use ice packs on your incisions for 20 minutes each hour for the first two days after surgery to help reduce your pain and swelling. After the first two days, you may use a heating pad or warm compress on your incisions and surrounding area. If you have received a graft, please *DO NOT* apply ice directly onto the graft site. How will I alternate my regular strength iitq-jqe-kiixriq pain medication? You will take a dose of pain medication every four hours while you're awake. Start by taking 200-400 mg of Motrin/Advil (ibuprofen) (1-2 pills of 200 mg) 4 hours later, take 500-1000 mg of Tylenol (acetaminophen) (1-2 pills of 500 mg) 4 hours later, take 200-400 mg of Motrin/Advil (ibuprofen) (1-2 pills of 200 mg) 4 hours later, take 500-1000 mg of Tylenol (acetaminophen) (1-2 pills of 500 mg) 4 hours later, take 200-400 mg of Motrin/Advil (ibuprofen) (1-2 pills of 200 mg) We recommend that you follow this schedule [id number] for at least 3 days after surgery, or until you feel that it is no longer needed. As an alternative, you can purchase OTC Advil Dual Action, which is a combined pill containing Acetaminophen 250mg and Ibuprofen 125mg. IMPORTANT: Do not take more than 3000mg of Tylenol (acetaminophen) or 3200mg of Motrin/Advil (ibuprofen) in a 24-hour period. Be aware that some chronic pain medications as well as over the counter cold and flu remedies may also contain acetaminophen. Take this into consideration to avoid exceeding the maximum daily dose. Limit alcohol intake. It is recommended to avoid heavy alcohol intake (more than two standard drinks per day for men and one standard drink for women) after surgery and while taking acetaminophen. Drinking alcohol causes the liver to convert more of the acetaminophen you take into toxic byproducts. Alcohol also acts as a blood thinner and can increase your risk for post-operative bleeding. Continue to take all of your prescribed medication. SWELLING: Swelling after surgery is normal and can peak at 48hr after surgery Suggestion: sleep on 1-2 pillows post procedure for 2-3 days to minimize swelling You can do this if you had a procedure on your face, top of head, ears, jaw, eyes, nose, cheeks, etc. Elevate arms and legs at rest to decrease swelling You can wrap your affected extremity by using JERI wrap, coban wrap, or compression stockings to also minimize swelling Please also use ice packs to decrease swelling. Can use approximately 20 minutes each hour. NOTES: You may shower regularly after your initial surgery dressing is removed Avoid increasing heart rate or blood pressure for the first 72 hours following surgery (increases bleeding risk) Avoid heavy lifting and strenuous activity for 72 hours following surgery Return to referring automobile service writer for skin checks every 6 months Wear sunscreen PHONE NUMBERS: [place] contact number: [phone], [phone], or [phone] (Sunday-Sunday, 8am-5pm) For emergencies only: On-call number: [phone] and ask for the installation engineer dermatology surgery fellow documented in this encounter [facility] 09-22-2024 History of Present illness Narrative Patient is here for: Excision and Closure Site: left glabella Referral from Dr. Dr. Ruth Perla . PATIENT ID CONFIRMED: by Name and Birthdate YES PATIENT ID VERIFIED BY: Marie Rangel MA ANTIGOAGULANTS: Eliquis PACEMAKER: NO ANTIBIOTIC PROPHYLAXIS: Not required SURGERY ROOM:[facility] Dr. Maryellen Mitchell Pre photos taken with consent PROCEDURE NOTES: EXCISION WITH CLOSURE REF MD: Dr. Ruth Perla STAFF Derm Surg Staff: Dr. Maryellen Mitchell UNIVERSAL PROTOCOL / SAFETY CHECKLIST Procedure to be Performed: Excision and Closure Sign In: A Moment of CARE was completed. Personnel directly involved with the procedure wore the appropriate PPE (Personal Protective Equipment). No special equipment needed. Patient/Surrogate Stated/Verified: PATIENT VERIFIED(optional for EMERGENT procedures): Patient name, Date of , Relevant allergies, and The intended procedure Time Out Communication: Intended patient and procedure match the source documents. Consent documented and matches the intended procedure. Relevant labs, photos, and/or imaging studies have been reviewed. Correct side/site marked and visible. Medications required for procedure verified. Fire risk assessed and interventions discussed. No implant(s) inserted. Sign Out: SIGN OUT (optional for EMERGENT procedures): All specimen containers correctly labeled. All instruments, equipment, possible retained foreign bodies accounted for. Post-procedure follow-up management communicated and Plan of Care Visit completed when applicable. Marie Rangel MA Antibiotics Administered if Applicable Safety Precautions Based on Patient History or Medication yes LOCAL ANESTHETIC: 1% Lidocaine HCl with Epinephrine 1:100,000 A full-thickness excision of the lesion(s) was performed to the level of: Subcutaneous fat LESION # 1 DX: Sebaceous Adenoma TUMOR TYPE: N/A LOC OF LESION: LEFT GLABELLA PRE-OP SIZE: 0.8 X 0.6 CM MARGIN: 1-2 mm LYMPHADENOPATHY: n/a Description: PRIMARY INTERMEDIATE requiring a layered closure of the following; skin and deeper subcutaneous fat CLOSURE: Primary intermediate: Requiring closure of skin and deeper subcutaneous fat. Undermining was performed in all directions at the dermal subcutaneous layer to decrease the tension of the wound and facilitate skin edge apposition. Meticulous hemostasis was achieved with electrocautery. The deeper tissues were apposed with 5-0 Absorbable sutures. The epidermal edges were apposed with 6-0 Non absorbable sutures. The surgical site was cleansed with saline and covered with a bandage as below. The patient tolerated the procedure well and no complications were noted. Sutures: 5-0 Absorbable and 6-0 Non absorbable Final Size: Linear closure - 1.9 cm COMPLICATIONS: None, patient tolerated procedure well. POST OP MEDS: None POST OP CARE:Pressure Dressing applied consisting of Contact Layer: Petrolatum ointment and Non stick Telfa pad Absorbent Layer: Gauze pad Skin Prep to surrounding skin to adhere dressing. Outer Layer: Hypafix POST OP INSTRUCTIONS GIVEN: Surgical Wound Care COMMENTS: 1 specimen sent to pathology CHARGE CODE: see e-bill PATIENT TO RETURN TO CLINIC: SUTURE REMOVAL: 7 DAYS PATIENT DISCHARGED TO LUNCH COOK/NAME: family TOTAL OPERATIVE TIME: MINUTES: 30 min The documentation for this note was completed by Marie Rangel MA acting as scribe for Maryellen Mitchell MD. September 22, 2024 3:02 PM. I agree with the operative note independently gathered by the clinical program support assistant and the remaining scribed note accurately describes my personal service to the patient. Maryellen Mitchell MD documented in this encounter [facility] 09-10-2024 Telephone encounter Note Prescription Refill Information The patient has been identified by name and date of : Yes Caregiver verified no other encounters exist for this prescription request: Yes Caregiver confirmed with patient/requestor that no other refills are due, in the near future, with this provider at this time: Yes The last office visit in the department: 06-20-24 Does the patient have a future office visit with this provider/department: Yes 12-23-24 Requested Prescriptions Pending Prescriptions Disp Refills atorvastatin (LIPITOR) 40 mg tablet 90 tablet 3 Sig: Take 1 tablet by mouth once daily. Alia Baxter [facility] September 10, 2024 8:20 AM [facility] 09-10-2024 Miscellaneous Notes Prescription Refill Information The patient has been identified by name and date of : Yes Caregiver verified no other encounters exist for this prescription request: Yes Caregiver confirmed with patient/requestor that no other refills are due, in the near future, with this provider at this time: Yes The last office visit in the department: 06-20-24 Does the patient have a future office visit with this provider/department: Yes 12-23-24 Requested Prescriptions Pending Prescriptions Disp Refills atorvastatin (LIPITOR) 40 mg tablet 90 tablet 3 Sig: Take 1 tablet by mouth once daily. Alia Greenberg September 10, 2024 8:20 AM documented in this encounter [facility] 09-09-2024 History of Present illness Narrative Last saw pcp: 06/20/24 Subjective: Patient presents to clinic c/o painful toenails. They state that the nails are especially painful with shoe gear and pressure. Patient states his left 2nd toe is painful. No other pedal complaints at this time. Patient states no change in medications or medical history since last visit. Objective: Patient presents to clinic ambulating in sneakers Vasc: DP and PT pulses are palpable bilateral. CFT is less than 5 seconds bilateral. Skin temperature is warm to cool proximal to distal bilateral. There is no edema or varicosities noted. Neuro: Protective sensation is intact to the foot and toes when tested with the 5.07 SWM bilateral. Vibratory sensation is absent at the hallux IPJ bilateral. The hallux is downgoing bilateral. Derm: Nails 1-5 right and 1,2,3,5 left are painful, discolored-yellow, thick, crumbly, dystrophic and with subungal debris. Skin is of normal turgor, texture and hair growth is present bilateral. There are no hyperkeratosis, ulcerations, scars, verruca or other lesions noted. Ortho: Muscle strength is 5/5 for all pedal groups tested. Ankle joint DF is decreased with the knee extended with no pain or crepitus noted. 1st MPJ ROM is decreased bilateral. 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 Nails 1-5 right and 1,2,3,5 left were debrided in length and thickness. Small bleed to right 3rd toe. Band aide applied. Recommend gel padding between toes to prevent rubbing. Discussed pain in left 2nd toe. Suspect arthritis of left 2nd dipj. Options include monitoring vs dipj fusion vs distal syme amputation. Patient has elected to monitor. Patient was instructed on the continued importance of diabetic foot care along with proper diet and keeping their blood sugar under control to prevent complications. Stressed the importance of\ avoiding barefoot walking, wearing good shoes and inspection of feet. Patient is to RTC in 3-4 months. Juan Torres DPM Patient presents with: Right Foot - Established Patient Left Foot - Established Patient Nail care AMB ROOMING INTAKE FLOWSHEET DATA Here for nail care. documented in this encounter [facility] 09-09-2024 Instructions Juan Torres - 09/09/2024 8:28 AM EDT Diabetes Foot Care Instructions When you have diabetes, proper foot care is very important. Poor foot care may lead to amputation of a foot or leg. As a person with diabetes, you are more vulnerable to foot problems, because diabetes can damage your nerves and reduce blood flow to your feet. Here are some diabetes foot care tips to follow: Wash and Dry Your Feet Daily Use mild soaps Use warm water Pat your skin dry; do not rub. Thoroughly dry your feet. After washing, use lotion on your feet to prevent cracking. Do not put lotion between your toes. Examine Your Feet Each Day Check the tops and bottoms of your feet. Have someone else look at your feet if you cannot see them. Check for dry, cracked skin. Look for blisters, cuts, scratches, or other sores. Check for redness, increased warmth, or tenderness when touching any area of your feet. Check for ingrown toenails, corns, and calluses. If you get a blister or sore from your shoes, do not pop it. Apply a bandage and wear a different pair of shoes. Take Care of Your Toenails Cut toenails after bathing, when they are soft. Cut toenails straight across and smooth with a nail file. Avoid cutting into the corners of toes. Do not cut cuticles. If you have neuropathy (or decreased sensation in your feet) a web programmer should always cut your toenails. Be Careful When Exercising Walk and exercise in comfortable shoes. Do not exercise when you have open sores on your feet. Protect Your Feet With Shoes and Socks Never go barefoot. Always protect your feet by wearing shoes or hard-soled slippers or footwear. Avoid shoes with high heels and pointed toes. Avoid shoes that expose your toes or heels (such as open-toed shoes or sandals). These types of shoes increase your risk for injury and potential infections. Try on new footwear with the type of socks you usually wear. Do not wear new shoes for more than an hour at a time. Change your socks daily. Look and feel inside your shoes before putting them on to make sure there are no foreign objects or rough areas. Avoid tight socks. Wear natural-fiber socks (cotton, wool, or a cotton-wool blend). Wear special shoes if your health care provider recommends them. Wear shoes/boots that will protect your feet from various weather conditions (cold, moisture, etc.). Make sure your shoes fit properly. If you have neuropathy (nerve damage), you may not notice that your shoes are too tight. Perform the footwear test described below. Footwear Test Use this simple test to see if your shoes fit correctly: Stand on a piece of paper. (Make sure you are standing and not sitting, because your foot changes shape when you stand.) Trace the outline of your foot. Trace the outline of your shoe. Compare the tracings: Is the shoe too narrow? Is your foot crammed into the shoe? The shoe should be at least 1/2 inch longer than your longest toe and as wide as your foot. Proper Shoe Choices The following types of shoes are best for people with diabetes Closed toes and heels Leather uppers without a seam inside At least 1/2 inch extra space at the end of your longest toe Inside of shoe should be soft with no rough areas Outer sole should be made of stiff material Shoes should be at least as wide as your feet Tips for Foot Care in Diabetes Don't wait to treat a minor foot problem if you have diabetes. Follow your health care provider's guidelines and first aid guidelines. Report foot injuries and infections to your health care provider immediately. Check water temperature with your elbow, not your foot. Do not use a heating pad on your feet. Do not cross your legs. Do not self-treat your corns, calluses, or other foot problems. Go to your health care provider or web programmer to treat these conditions. documented in this encounter [facility] 09-01-2024 Telephone encounter Note Called and spoke with Patient. He accepted appt for 10/01/2024 at 9:30 AM Miryam Barker [facility] 09-01-2024 Miscellaneous Notes Called and spoke with Patient. He accepted appt for 10/01/2024 at 9:30 AM Miryam Barker Received secure staff message from Dr. Hernandez: I saw Mr. Chahal regarding low back pain and adjacent segment degeneration. He had temporary response to recent epidural injection but not lasting. I gave him option to extend fusion to L4 but he wants to see if he is considered for spinal cord stimulator trial. Any chance you can see him please for evaluation? Dr. Bowling in agreement to see patient for spinal cord stimulator (SCS) evaluation. Routing to clerical pool for appointment scheduling. Provider: Dr. Bowling Why: SCS Evaluation documented in this encounter [facility] 09-01-2024 Telephone encounter Note Received secure staff message from Dr. Hernandez: I saw Mr. Chahal regarding low back pain and adjacent segment degeneration. He had temporary response to recent epidural injection but not lasting. I gave him option to extend fusion to L4 but he wants to see if he is considered for spinal cord stimulator trial. Any chance you can see him please for evaluation? Dr. Bowling in agreement to see patient for spinal cord stimulator (SCS) evaluation. Routing to clerical pool for appointment scheduling. Provider: Dr. Bowling Why: SCS Evaluation [facility] 08-27-2024 History of Present illness Narrative SPINE SURGERY ESTABLISHED This is an in-person visit. DATE OF SERVICE: 08/27/2024 DATE OF LAST VISIT: 05/21/2024 SUBJECTIVE: HPI:Jg Chahal is a 84 year old male presenting with family. Today, the patient reports that he feels pain in the middle of their back. While they are able to lie down on their back or their side to go to sleep at night, their pain returns when standing back up in the morning. Patient has also complained of a chronic heart disease. PAIN EVALUATION 08/27/2024 0951 Pain Level: 3 Pain Location: Back-Lower Description: Aching Frequency: Continuous Pain Radiation: Mid back Aggravating Factors: Standing, Walking Alleviating Factors: Lying supine, Side-lying AMBULATORY STATUS: Impaired Community Distances ANTIPLATELET OR ANTICOAGULATION STATUS: Yes, Eliquis 5mg PREVIOUS CONSERVATIVE TREATMENTS: N/A REVIEW OF SYSTEMS: GENERAL: No weight loss or malaise MUSCULOSKELETAL: SEE HPI NEURO: No history of syncope, paralysis, seizures or tremors MEDICATIONS: gabapentin (NEURONTIN) 300 mg capsule Take 1 capsule by mouth two times a day. iv contrast (will be provided with radiology test) CT ABD/PEL -Inject, intravenously, once for 1 dose.No IV access, insert saline lock prior to the beginning of sedation, infusion, injection of imaging exam. Discontinue saline lock post exam. If Pt. has a central line or IVAD, may access for administration according to line specific nursing protocol. Once exam is complete flush line and de-access according to line specific nursing protocol in the CT contrast administration guidelines link. methocarbamol (ROBAXIN) 750 mg tablet Take 1 tablet by mouth three times a day as needed. amLODIPine (NORVASC) 10 mg tablet Take 10 mg by mouth once daily. hydroCHLOROthiazide 12.5 mg capsule Take 12.5 mg by mouth once daily. atenolol (TENORMIN) 25 mg tablet Take 25 mg by mouth once daily. finasteride(PROSCAR 5 MG TAB) Take one(1) tablet daily. SIMVASTATIN 20 MG TAB Take one(1) tablet daily. trazodone hcl(DESYREL 150 MG TAB) as necessary [id number] TAB Take one(1) tablet daily. hyoscyamine sublingual (LEVSIN SL) 0.125 mg Dissolve 1 tablet under the tongue every 4 hours as needed for up to 3 days. Patient Entered Questionnaires 06/20/2023 Low Back Pain Questionnaires STarT Risk Score 1 (Low risk for prolonged disability) STarT Distress Score Incomplete STarT Total Score Incomplete PROMIS Score Percentiles 06/20/2023 Physical Health Physical Function Percentile 66 Pain Interference Percentile 31 Percentiles provide an indication of how the patient's score ranks in relation to the general population. Higher percentile rankings indicate better function/quality of life. 50th percentile is the average of the general population and indicates half of respondents had a worse score. Depression Screening: PHQ-9 Self-Harm (Item 9) response options: 0 Not at all 1 Several days 2 More than half the days 3 Nearly every day PHQ-9 Levels: 0-4 No to mild depression 5-9 Mild depression 10-14 Moderate depression 15-19 Moderately severe depression 20-27 Severe depression OBJECTIVE: PHYSICAL EXAM: BP 114/97 Pulse 84 SpO2 99% GENERAL APPEARANCE: Well nourished, well developed, and no apparent distress. NEURO PSYCH: Patient oriented to person, place, and time. Mood pleasant. Benign affect. MUSCULOSKELETAL VISUAL INSPECTION CERVICAL: WNL THORACIC: WNL LUMBAR: WNL MOTOR: 5/5 in all muscle groups. SENSORY: Normal sensory exam GAIT: Normal. NEURO TESTS: None DATA REVIEW:Diagnostic tests reviewed for today's visit, films/specimens were personally reviewed by me: [facility] records independently reviewed Imaging and outside records independently reviewed Images independently reviewed with the patient ASSESSMENT/PLAN Lumbar stenosis with neurogenic claudication Jg Chahal is not a candidate for surgery at this time. I will reach out to Dr. Bowling regarding spinal cord stimulator trial. Surgery consideration will include extension of fusion to L4 with L4-5 TLIF. Follow up: Following above The documentation for this note was completed by Lavelle Hamilton acting as scribe for Blanco Hernandez MD. August 27, 2024 9:56 AM. SIGNATURE: Blanco Hernandez MD PATIENT NAME: Jg Chahal DATE: August 27, 2024 TIME: 9:56 AM PAGER: documented in this encounter [facility] 08-27-2024 Note HNO ID: [id number] Author: BLANCO HERNANDEZ MD Service: ? Author Type: Physician Type: Progress Notes Filed: 08/27/2024 12:42 Note Text: SPINE SURGERY ESTABLISHED This is an in-person visit. DATE OF SERVICE: 08/27/2024 DATE OF LAST VISIT: 05/21/2024 SUBJECTIVE: HPI:Jg Chahal is a 84 year old male presenting with family. Today, the patient reports that he feels pain in the middle of their back. While they are able to lie down on their back or their side to go to sleep at night, their pain returns when standing back up in the morning. Patient has also complained of a chronic heart disease. PAIN EVALUATION 08/27/2024 0951 Pain Level: 3 Pain Location: Back-Lower Description: Aching Frequency: Continuous Pain Radiation: Mid back Aggravating Factors: Standing, Walking Alleviating Factors: Lying supine, Side-lying AMBULATORY STATUS: Impaired Community Distances ANTIPLATELET OR ANTICOAGULATION STATUS: Yes, Eliquis 5mg PREVIOUS CONSERVATIVE TREATMENTS: N/A REVIEW OF SYSTEMS: GENERAL: No weight loss or malaise MUSCULOSKELETAL: SEE HPI NEURO: No history of syncope, paralysis, seizures or tremors MEDICATIONS: gabapentin (NEURONTIN) 300 mg capsule Take 1 capsule by mouth two times a day. iv contrast (will be provided with radiology test) CT ABD/PEL -Inject, intravenously, once for 1 dose.No IV access, insert saline lock prior to the beginning of sedation, infusion, injection of imaging exam. Discontinue saline lock post exam. If Pt. has a central line or IVAD, may access for administration according to line specific nursing protocol. Once exam is complete flush line and de-access according to line specific nursing protocol in the CT contrast administration guidelines link. methocarbamol (ROBAXIN) 750 mg tablet Take 1 tablet by mouth three times a day as needed. amLODIPine (NORVASC) 10 mg tablet Take 10 mg by mouth once daily. hydroCHLOROthiazide 12.5 mg capsule Take 12.5 mg by mouth once daily. atenolol (TENORMIN) 25 mg tablet Take 25 mg by mouth once daily. finasteride(PROSCAR 5 MG TAB) Take one(1) tablet daily. SIMVASTATIN 20 MG TAB Take one(1) tablet daily. trazodone hcl(DESYREL 150 MG TAB) as necessary [id number] TAB Take one(1) tablet daily. hyoscyamine sublingual (LEVSIN SL) 0.125 mg Dissolve 1 tablet under the tongue every 4 hours as needed for up to 3 days. Patient Entered Questionnaires 06/20/2023 Low Back Pain Questionnaires STarT Risk Score 1 (Low risk for prolonged disability) STarT Distress Score Incomplete STarT Total Score Incomplete PROMIS Score Percentiles 06/20/2023 Physical Health Physical Function Percentile 66 Pain Interference Percentile 31 Percentiles provide an indication of how the patient's score ranks in relation to the general population. Higher percentile rankings indicate better function/quality of life. 50th percentile is the average of the general population and indicates half of respondents had a worse score. Depression Screening: PHQ-9 Self-Harm (Item 9) response options: 0 Not at all 1 Several days 2 More than half the days 3 Nearly every day PHQ-9 Levels: 0-4 No to mild depression 5-9 Mild depression 10-14 Moderate depression 15-19 Moderately severe depression 20-27 Severe depression OBJECTIVE: PHYSICAL EXAM: BP 114/97 Pulse 84 SpO2 99% GENERAL APPEARANCE: Well nourished, well developed, and no apparent distress. NEURO PSYCH: Patient oriented to person, place, and time. Mood pleasant. Benign affect. MUSCULOSKELETAL VISUAL INSPECTION CERVICAL: WNL THORACIC: WNL LUMBAR: WNL MOTOR: 5/5 in all muscle groups. SENSORY: Normal sensory exam GAIT: Normal. NEURO TESTS: None DATA REVIEW:Diagnostic tests reviewed for today's visit, films/specimens were personally reviewed by me: [facility] records independently reviewed Imaging and outside records independently reviewed Images independently reviewed with the patient ASSESSMENT/PLAN Lumbar stenosis with neurogenic claudication Jg Chahal is not a candidate for surgery at this time. I will reach out to Dr. Bowling regarding spinal cord stimulator trial. Surgery consideration will include extension of fusion to L4 with L4-5 TLIF. Follow up: Following above The documentation for this note was completed by Lavelle Hamilton acting as scribe for Blanco Hernandez MD. August 27, 2024 9:56 AM. SIGNATURE: Blanco Hernandez MD PATIENT NAME: Jg Chahal DATE: August 27, 2024 TIME: 9:56 AM PAGER: [facility] 08-27-2024 Telephone encounter Note LVM for pt to schedule. [facility] 08-27-2024 Miscellaneous Notes LVM for pt to schedule. PROCEDURE & TIME REQUIRED Excision: TIME REQUIRED: Other: A. Skin, left glabella, shave biopsy: - Sebaceous adenoma. Size: 0.4 cm 60 minutes for PGY2 45 minutes for PGY3 30 minutes for PGY4 or staff Approved by: Frantz Mosley RN Schedule with: Patient Preference Location: Patient Preference *Photos in Get Images documented in this encounter [facility] 08-27-2024 Telephone encounter Note PROCEDURE & TIME REQUIRED Excision: TIME REQUIRED: Other: A. Skin, left glabella, shave biopsy: - Sebaceous adenoma. Size: 0.4 cm 60 minutes for PGY2 45 minutes for PGY3 30 minutes for PGY4 or staff Approved by: Frantz Mosley RN Schedule with: Patient Preference Location: Patient Preference *Photos in Get Images [facility] 08-27-2024 Telephone encounter Note ----- Message from Ruth Perla DO sent at 08/26/2024 5:22 PM EDT ----- A. Skin, left glabella, shave biopsy: - Sebaceous adenoma- Excision with Derm Surg [facility] 08-27-2024 Miscellaneous Notes ----- Message from Ruth Perla DO sent at 08/26/2024 5:22 PM EDT ----- A. Skin, left glabella, shave biopsy: - Sebaceous adenoma- Excision with Derm Surg documented in this encounter [facility] 08-20-2024 Instructions Sussy Zepeda MA - 08/20/2024 1:49 PM EDT Images from the original note were not included. Department of Dermatology [address] [place] [address] CARE FOR YOUR SHAVE BIOPSY SITE Please follow these instructions for daily wound care: 1. Wash the area every day with gentle soap and water. 2. Apply a thin layer of Vaseline or Aquaphor to the wound site to keep the area slightly greasy at all time (this helps to prevent scabbing). Please do not use an old tub of ointment as this can introduce germs into your wound and cause infection. 3. Cover with a bandage and continue this daily process until the wound is healed. Do not leave a soiled or wet bandage on the wound. -Keep the area clean and dry with the bandage in place the day of surgery. -If you experience any bleeding, please apply pressure to the area for approximately 10 minutes. -You may shower, but do not soak in a bathtub, hot tub, pool, marmolejo, etc until after the wound has healed. -DO NOT USE NEOSPORIN OR BACITRACIN as there is a fairly high incidence of allergic response to these products. -You may experience some mild discomfort, redness, swelling, and/or a clear discharge from the wound after your procedure. Severe pain, worsening swelling, and foul-smelling discharge from the site are NOT to be expected. If you have concerns about how your wounds are healing, please send your provider a [email or web address] message or call [phone] and ask for a dermatology nurse. SKIN CARE AFTER CRYOSURGERY The SKIN'S response to cryosurgery (freezing) can be mild to more severe, depending on the depth of the freeze and the location of the area treated. You may have only mild redness and swelling with a little discomfort of significant discoloration and blistering with considerable discomfort. A burning sensation in the skin may last from several minutes to several hours after the procedure. Follow these instructions when caring for an area treated by cryosurgery: MINOR RESPONSE: 1. The area may sing or burn for a short time after treatment. 2. The treated area will be red in color at first then turn brown and flakey as it heals and the upper layer of skin sloughs off. 3. Gently cleanse the area with anti-bacterial soap and water. Pat dry and apply a thin film of antibiotic ointment. Do this at least once a day to prevent infection. MAJOR RESPONSE: 1. Follow instructions as stated for minor response. 2. The area may sting and burn for several hours after treatment. 3. To relieve throbbing and pain, elevate the treatment area. 4. If instructed by your physician, you may take [id number]-pitpily pain medications as needed for discomfort. 5. A blister will form in the area of freezing. It may be filled with clear fluid or blood. This response is not unusual. 6. Do not break the blister unless it becomes uncomfortable. You may prick the blister with a sterile needle or pin to remove the fluid. Leave the skin intact. 7. All treated areas usually heal within 3 to 4 weeks. If you have problems or questions, please call the office at . documented in this encounter [facility] 08-20-2024 History of Present illness Narrative Established Patient Visit Last Visit Date: 02/15/2024 CC: Skin check HPI: 84 year old male. 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 Skin as above. Physical Exam: Gen: A&Ox3, well appearing Skin exam performed including scalp, face, neck, arms, abdomen, chest, back. Exam with noted findings of: -Declines full body skin exam today, upper body only -Scattered normal appearing brown macules and papules with reassuring features on dermoscopy -Trunk: scattered small red papules -Face, neck, trunk, UE with scattered polk-brown macules in sun-exposed distribution -Trunk, UE with scattered warty brown stuck-on papules -4 mm erythematous papule left glabella -1 pink scaly rough patch on right ear Assessment/Plan: ASSESSMENT/PLAN: 1. Skin exam, screening for cancer - ICD9: V76.43, ICD10: Z12.83 (primary diagnosis) -Only upper body done today per pt -The ABCD's of melanoma were discussed. The patient is to perform monthly self exams and follow-up in dermatology for skin exams every 6 months. If any new lesions then the patient shall return sooner. Recommended SPF of 30 or greater. 2. Hx of nonmelanoma skin cancer - ICD9: V10.83, ICD10: Z85.828 -No evidence of recurrence at this time. Importance of monthly self skin checks emphasized. Recommend sun protection/avoidance, including hats and protective clothing, as well as sunscreen >=spf 30 qd. 3. Neoplasm of uncertain behavior of skin - ICD9: 238.2, ICD10: D48.5 -Shave Biopsy: The risks, benefits, indications, alternatives, and complications were discussed, and informed consent was obtained. Specifically, the expectation of a permanent scar and risk of possible infection were explained and understood. If the procedure were to be declined, the lesion could not be evaluated microscopically for diagnosis or abnormality, including cancer. Verbal consent was obtained. -See procedure notes. -SURGICAL PATHOLOGY 4. Actinic keratosis - ICD9: 702.0, ICD10: L57.0 -Discussed premalignant etiology with low rate of development into skin cancer. Treatments include cyrotherapy, PDT, topical effudex. Recommended daily of use SPF 30 or greater -Cryotheraphy SE/Risks discussed: The risks, benefits, indications, alternatives, and complications were discussed, and informed consent was obtained. Specifically, the risks of permanent scar, loss or darkening of skin color, blister and recurrence of lesion were discussed. Patient verbalized understanding and wished to proceed. Verbal consent was obtained. -See procedure notes. 5. 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 Benign reassurance was given. 6. Lentigines - ICD9: 709.09, ICD10: L81.4 -Explanation of these lesions were dicussed. Benign reassurance was given. 7. Multiple benign nevi - ICD9: 216.9, ICD10: D22.9 -Explanation of these lesions were dicussed. Benign reassurance was given. -If lesion should change, grow, darken, bleed, etc then discussed with patient to call and return to the office. 8. Seborrheic keratosis - ICD9: 702.19, ICD10: L82.1 - Explanation of these lesions were dicussed. Benign reassurance was given. Procedures: Tangential biopsy via shave technique: A.) Left glabella r/o BCC vs SCC - Tangential biopsy by shave. The risks, benefits, indications, alternatives, and complications were discussed, and informed consent was obtained. Specifically, the expectation of a permanent scar and risk of possible infection were explained and understood. If the procedure were to be declined, the lesion could not be evaluated microscopically for diagnosis or abnormality, including cancer. In accordance with the [facility] policy, pre-procedure time out was performed to verify the correct patient, procedure, site, positioning, and implant(s) or special equipment. Site(s) were cleaned with alcohol and anesthetized with 1% lidocaine. Tangential biopsy via shave technique was performed. Hemostasis was obtained with aluminum chloride and/or electrocautery. Petrolatum and bandage were applied. The patient tolerated the procedure well without complications and with minimal blood loss. Written wound care instructions were reviewed and given. Specimen(s) sent to pathology. Procedure Note - Benign/Pre-Malignant Lesion(s) - Lesion(s) x1 AK was treated with cryotherapy x 2 cycles x 10 sec/cycle with liquid nitrogen via cryostat spray device. The risks, benefits, indications, alternatives, and complications were discussed, and informed consent was obtained. Specifically, the risks of permanent scar, loss or darkening of skin color, blister and recurrence of lesion were discussed. Patient verbalized understanding and wished to proceed. Verbal consent was obtained. The patient tolerated the procedure well without complications. Wound care instructions were reviewed and given to patient. RTC 6 month FBSE/pending path. The patient is seen and examined by Dr. Perla and the following reflects his/her service. Scribed by Sussy Zepeda MA. I agree with the Chief Complaint, ROS, and Past Histories independently gathered by the clinical program support assistant and the remaining scribed note accurately describes my personal service to the patient. Ruth Perla DO documented in this encounter [facility] 08-18-2024 Telephone encounter Note Patient called back asking for Dr. Hernandez's review and recommendations after his review of recent CT. Advised we would call him back. [facility] 08-18-2024 Miscellaneous Notes Patient called back asking for Dr. Hernandez's review and recommendations after his review of recent CT. Advised we would call him back. Patient left message on nurse VM 08/12/24 requesting call back to discuss referral to Dr. Bowling regarding possible injection. CRISTIN; 08/04/[address] Hernandez ASSESSMENT/PLAN (M54.16) Radiculopathy of lumbar region (primary encounter diagnosis) (M54.16) Lumbar radiculopathy (M47.816) Lumbar spondylosis Jg Chahal has a condition that requires further workup. 1. Imaging: CT Lumbar Spine 2.After CT we can discuss Spinal Cord stimulator trial with Dr. Bowling. Follow up: Following above Imaging Ordered: CT Lumbar Spine CT lumbar spin completed 08/06/24 Routing to provider for review and recommendations documented in this encounter [facility] 08-12-2024 Telephone encounter Note Patient left message on nurse VM 08/12/24 requesting call back to discuss referral to Dr. Bowling regarding possible injection. CRISTIN; 08/04/[address] Hernandez ASSESSMENT/PLAN (M54.16) Radiculopathy of lumbar region (primary encounter diagnosis) (M54.16) Lumbar radiculopathy (M47.816) Lumbar spondylosis Jg Chahal has a condition that requires further workup. 1. Imaging: CT Lumbar Spine 2.After CT we can discuss Spinal Cord stimulator trial with Dr. Bowling. Follow up: Following above Imaging Ordered: CT Lumbar Spine CT lumbar spin completed 08/06/24 Routing to provider for review and recommendations [facility] 08-06-2024 History of Present illness Narrative Radiology Service Progress Note PATIENT NAME: Jg Chahal DATE OF SERVICE: August 06, 2024 TIME: 3:46 PM PATIENT IDENTITY VERIFICATION COMPLETED USING TWO (2) IDENTIFIERS: Name and Date of confirmed by patient verbally. FALL SCREENING: Has the patient had 2 falls in the last year or 1 fall with injury or currently using an Ambulatory Assistive Device (Walker, Cane, Wheelchair, Crutches, etc.)? No PATIENT GENDER DATA: Male PATIENT RELEVANT IMPLANT DATA REVIEWED: Yes PATIENT PRESENTS WITH AN IMPLANTABLE OR ATTACHED LIBRARY SPECIALIST: No RADIOLOGY DEPARTMENT: CT; Exam(s) Completed: Spine PERIPHERAL IV DATA: Not applicable SIGNED BY: RT Richar(R) August 06, 2024 3:46 PM documented in this encounter [facility] 08-04-2024 History of Present illness Narrative Images from the original note were not included. SPINE SURGERY NEW PATIENT This is an in-person visit. PCP: Galindo Yuan MD REFERRING PROVIDER: Krystin Hernandez APRN.[facility] SUBJECTIVE HISTORY OF PRESENT ILLNESS: Jg Chahal is a 84 year old male presenting with granddaughter. CHIEF COMPLAINT: Mid back pain PRECIPITATING EVENT: None DURATION OF SYMPTOMS: Greater Than 1 Year C/O Mid back pain with no radiation which started a year ago. In the last 6 months symptoms have been worsening. He has difficulty standing straight up due to pain. No paresthesia in LE. Has had an injection on 03/18/2024 which lasted 5-6 days . He is not currently taking any medication. He has tried opioids and Gabapentin. He does not smoke. PAIN EVALUATION 08/04/2024 1049 Pain Level: 7 Pain Location: Back-Lower Description: Sharp Duration Amount of Time: -- ongoing Frequency: Continuous Pain Radiation: Pain does not radiate Aggravating Factors: Standing, Walking, Bending Alleviating Factors: Sitting, Stretching, elevating legs Pain Ratio: N/A DERMATOMAL DISTRIBUTION: Not applicable AMBULATORY STATUS: Independent Community Distances ANTIPLATELET OR ANTICOAGULATION STATUS: Yes Apixaban 5 mg PREVIOUS CONSERVATIVE TREATMENTS: left L4-5 transforaminal injection- 03/18/2024 (75% improvement lasted 30 days ) PREVIOUS SPINAL SURGERY: SURGERY #1: Cervical, Laminectomy 2000 SURGERY #2: Lumbar Fusion 11/05/2008 SURGERY #3: Bilateral Hemilaminectomy L2,L3,L4-L5 ACTIVE PROBLEM LIST Hypertensive Chronic Kidney Disease With Stage 1 Through Stage 4 Chronic Kidney Disease, Or Unspecified Chronic Kidney Disease 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 Obesity, Class I, Bmi 30-34.9 Sleep Terrors Oropharyngeal Dysphagia Cervical Spondylosis Stable Angina (Hcc) PAST MEDICAL HISTORY Diagnosis Date Abdominal pain, right lower quadrant 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 Dr. Tee Clemons, Dermatology Basal cell carcinoma (BCC) of skin of face Mohs 04/2021 Cervical spondylosis 09/25/2022 Coronary atherosclerosis of unspecified type of vessel, [place] or graft 01/22/2006 moderate Diverticulosis of colon (without mention of hemorrhage) 07/18/2005 Dyslipidemia Dyspepsia and other specified disorders of function of stomach 07/18/2005 Chronic gastritis, Dyspepsia. Gastric ulcer, unspecified as acute or chronic, without mention of hemorrhage or perforation, with obstruction Generalized osteoarthrosis, unspecified site 07/18/2005 H. pylori infection 05/30/2011 HTN (hypertension) Hypertensive 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 4 chronic kidney disease, or unspecified chronic kidney disease 07/18/2005 Impaired fasting glucose 07/18/2005 Lipoprotein deficiencies 07/18/2005 Low HDL. Lumbago 08/26/2008 Dr. Odin Coon, [facility]. Rotator cuff tear, right 10/21/2012 Salmonella enteritis 08/2010 Type II or unspecified type diabetes mellitus without mention of complication, not stated as uncontrolled 07/08/2007 Unspecified essential hypertension 07/18/2005 PAST SURGICAL HISTORY Procedure Laterality Date ARTHROSCOPY KNEE DIAGNOSTIC W/WO SYNOVIAL BX SPX 11/2003 Arthroscopy, knee ARTHRP ACETBLR/PROX FEM PROSTC AGRFT/ALGRFT Right 08/07/2016 Hip replacement, total ARTHRP KNE CONDYLE&PLATU MEDIAL&LAT COMPARTMENTS 2002 Knee replacement, total, left ARTHRP KNE CONDYLE&PLATU MEDIAL&LAT COMPARTMENTS Left 10/01/2017 revision L TKA, [facility] CC ABLATION SVT 04/06/2017 EP study, ablation for A.fib. COLONOSCOPY FLX DX W/COLLJ SPEC WHEN PFRMD 12/24/2002 Colonoscopy COLONOSCOPY FLX DX W/COLLJ SPEC WHEN PFRMD 05/11/2011 Colonoscopy ESOPHAGOGASTRODUODENOSCOPY TRANSORAL DIAGNOSTIC 03/18/2007 EGD ESOPHAGOGASTRODUODENOSCOPY TRANSORAL DIAGNOSTIC 06/11/2007 EGD ESOPHAGOGASTRODUODENOSCOPY TRANSORAL DIAGNOSTIC 05/11/2011 EGD LOPEZ W/O FACETEC FORAMOT/DSC 1/2 VRT SGM CRV 2000 Laminectomy, cervical LAMINECTOMY W/O FFD > 2 VERT SEG LUMBAR 11/05/2008 lumbar fusion LAMINOTOMY (HEMILAMINECTOMY), WITH DECOMPRESSION OF NERVE ROOT(S) Bilateral 05/02/2019 Revision hemilaminectomies L2,L3,L4-L5 LEFT HEART CATH,PERCUTANEOUS 01/22/2006 Cardiac cath, L heart LEFT HEART CATH,PERCUTANEOUS 05/31/2011 Cardiac cath, L heart LEFT HEART CATH,PERCUTANEOUS 11/27/2011 Cardiac cath, L heart LEFT HEART CATH,PERCUTANEOUS 11/27/2013 Cardiac cath, L heart NEUROPLASTY &/TRANSPOS MEDIAN NRV CARPAL TUNNE 1995 Carpal tunnel decomp R/L OPEN REPAIR OF ROTATOR CUFF ACUTE 1996 Rotator cuff repair, bilateral OPEN REPAIR OF ROTATOR CUFF CHRONIC Left 12/28/2014 Left shoulder open rotator cuff repair and Sub Ac decompression SHX TOTAL SHOULDER REVERSE Left 02/01/2022 Left reverse total shoulder arthroplasty TRANSCATH STENT INIT VESSEL,PERCUT 08/26/2009 Transcath stent init vessel percut TRANSCATH STENT INIT VESSEL,PERCUT 11/16/2010 Transcath stent init vessel percut FAMILY HISTORY Problem Relation Age of Onset other (CVA) Mother d 89 stroke other (HTN) Mother other (CHF) Mother Ischemic Heart Disease Father Skin Cancer Father bcc other (Lymphoma) Father d 65 lymphoma other (Skin Ca) Brother Melanoma Brother other (Tremors) Brother Cancer Daughter ovarian Diabetes Maternal Grandmother other (Tremors) Brother Melanoma Other maternal uncle Social History Tobacco Use Smoking status: Never Smokeless tobacco: Never Vaping Use Vaping status: Never Used Substance Use Topics Alcohol use: No Drug use: No ALLERGIES Allergen Reactions Adhesive Hives Codeine HEART PALPITATIONS Darvocet-N 100 [Pro* Intolerance Heart racing Latex Hives Meperidine Hcl MEDICATIONS: metoprolol succinate ER (TOPROL XL) 25 mg 24 hr tablet^Take 1 tablet by mouth once daily.^Disp: 90 tablet^Rfl: 3 losartan (COZAAR) 50 mg tablet^Take 1 tablet by mouth once daily.^Disp: 90 tablet^Rfl: 3 amLODIPine (NORVASC) 2.5 mg tablet^Take 1 tablet by mouth once daily.^Disp: 90 tablet^Rfl: 3 dofetilide (TIKOSYN) 250 mcg capsule^Take 1 capsule by mouth two times a day.^Disp: 180 capsule^Rfl: [address] (PROTONIX) 40 mg tablet^TAKE ONE TABLET BY MOUTH DAILY ON EMPTY STOMACH ONE-HALF HOUR BEFORE BREAKFAST^Disp: 90 tablet^Rfl: 3 apixaban (ELIQUIS) 5 mg tab(s)^Take 1 tablet by mouth two times a day.^Disp: 180 tablet^Rfl: 3 atorvastatin (LIPITOR) 40 mg tablet^Take 1 tablet by mouth once daily.^Disp: 90 tablet^Rfl: 3 clotrimazole-betamethasone (LOTRISONE) cream^Apply to affected area twice daily. APPLY TO AFFECTED AREA^Disp: 45 g^Rfl: 2 nitroglycerin sublingual (NITROSTAT) 0.4 mg SL tablet^Dissolve 1 tablet under the tongue every 5 minutes as needed for chest pain.^Disp: 26 tablet^Rfl: 2 blood sugar diagnostic (BLOOD GLUCOSE TEST) test strip^Test blood sugar(s) 1 times daily. Dx: Type 2 DM - Controlled E11.42 Insulin: No^Disp: 50 Strip^Rfl: 5 TENS unit and electrodes cmpk^Us as instructed.^Disp: 1 Kit^Rfl: 0 melatonin 3 mg tablet^Take 1 tablet by mouth daily at bedtime.^Disp: 90 tablet^Rfl: 3 Lancets lancets^Test blood sugar(s) 1 times daily. Dx: Type 2 DM - Controlled E11.42 Insulin: No^Disp: 100 Each^Rfl: 3 CPAP^Patient requesting new DME. Currently has a PAP device (2016 -- may be due for new device). Please fit with a Wisp (currently with Dream wisp and causing discomfort on top of head). Lifetime supplies.^Disp: 1 Each^Rfl: 9999 Amoxicillin 500 mg tablet^Take 4 tablets by mouth as needed (1 hour before the procedure).^Disp: 4 tablet^Rfl: 0 docusate sodium (COLACE) 100 mg capsule^AT BEDTIME^Disp: ^Rfl: magnesium oxide (MAG-OX) 400 mg tablet^Take 1 tablet by mouth once daily.^Disp: 90 tablet^Rfl: 3 Cholecalciferol, Vitamin D3, 1,000 unit cap^Take 1 capsule by mouth once daily.^Disp: ^Rfl: 0 vitamin b complex (B COMPLETE) ORAL Tab^Take 1 tablet by mouth once daily.^Disp: 100 tablet^Rfl: 4 REVIEW OF SYSTEMS: PAIN ASSESSMENT: See HPI. GENERAL: Denies fever, chills malaise and weight loss. HEENT: No recent change in vision or hearing. CARDIOVASCULAR: Denies chest pain, history of A-fib, valvular disease, or pacemaker/ICD. RESPIRATORY: Denies SOB, sputum production, and hemoptysis. GI: Denies GI ulcers, inflammatory disease, or liver disease. : Denies change in frequency or urgency, kidney disease, and burning with urination. MUSCULOSKELETAL: Positive for back pain SKIN: Denies rash or itching. PSYCHOLOGICAL: Denies uncontrolled depression or anxiety. NEURO: Denies CVA, seizures, headaches. ENDOCRINE: Denies diabetes, thyroid disease. HEMATOLOGY/LYMPHOLOGY: Denies cancer, bleeding or clotting disorders, anemia,and DVT's. ALLERGIC/IMMUNOLOGICAL: Denies risks for infection, or recent MRSA infections. Patient Entered Questionnaires PROMIS Score Percentiles 02/14/2023 02/13/2024 Physical Health Physical Function Percentile 38 12 Pain Interference Percentile 10 10 02/14/2023 02/13/2024 PROMIS Global Health Scale Physical Health Percentile 22* 15 15 Mental Health Percentile 73 34 34 Multiple values from one day are sorted in reverse-chronological order Percentiles provide an indication of how the patient's score ranks in relation to the general population. Higher percentile rankings indicate better function/quality of life. 50th percentile is the average of the general population and indicates half of respondents had a worse score. Depression Screenin05/12/2021 PHQ-9 Score 3 05/12/2021 PHQ-9 Self-harm Question Question 9 Not at all PHQ-9 Self-Harm (Item 9) response options: 0 Not at all 1 Several days 2 More than half the days 3 Nearly every day PHQ-9 Levels: 0-4 No to mild depression 5-9 Mild depression 10-14 Moderate depression 15-19 Moderately severe depression 20-27 Severe depression OBJECTIVE: PHYSICAL EXAM BP 159/76 (BP Site: Left Arm, BP Position: Sitting, BP Cuff Size: Regular Adult) Pulse 81 Ht 170.2 cm (5' 7) Wt 96.9 kg (213 lb 10 oz) SpO2 98% BMI 33.46 kg/m Oriented x3 PERRL FS Motor: UE D 5/5, B 5/5, T 5/5, G 5/5, HI 5/5 LE HF 5/5, KE 5/5, DF 5/5, PF 5/5, EHL 5/5 Incision C/D/I Antalgic gait Reflexes 2+ Hip exam is normal Forward posture NEURO TESTS: None DATA REVIEW MRI lumbar spine shows prior L5/S! Fusion with adjacent segment degeneration with associated L4/5 foraminal stenosis ASSESSMENT/PLAN (M54.16) Radiculopathy of lumbar region (primary encounter diagnosis) (M54.16) Lumbar radiculopathy (M47.816) Lumbar spondylosis Jg Chahal has a condition that requires further workup. 1. Imaging: CT Lumbar Spine 2.After CT we can discuss Spinal Cord stimulator trial with Dr. Bowling. Follow up: Following above Imaging Ordered: CT Lumbar Spine Medical Decision Making: Problems: Moderate: 2+ stable chronic illnesses Data: Independent interpretation of test from other physician/QHCP Risk: Moderate: Moderate risk from testing/treatment Medical Decision Making Level: 4 - Moderate The documentation for this note was completed by Sumi Ozuna acting as scribe for Blanco Hernandez MD. August 04, 2024 11:15 AM. SIGNATURE: Blanco Hernandez MD PATIENT NAME: Jg Chahal DATE: August 04, 2024 TIME: 11:00 AM PAGER: documented in this encounter [facility] 2024 Instructions Rashaun Manning Jr., MD - 2024 9:30 AM EDT Your most recent body mass index (BMI) that we have on record is 32.2 kg/m2. Obstructive sleep apnea (ETHAN) worsens with an increase in weight; reduction in weight may improve or resolve your ETHAN. If you are not already seeking treatment, there are resources available at the [facility] such as a nutrition consultation or referral to weight management programs at our [facility]. Please let us know if we can assist with a referral. documented in this encounter [facility] 2024 History of Present illness Narrative ESTABLISHED PATIENT VISIT CHIEF COMPLAINT: Follow Up HISTORY OF PRESENT ILLNESS: Jg Chahal is a 84 year old male, BMI 32.2 kg/m2 with a PMH significant for and per last office visit of 01/18/24: 1. Obstructive sleep apnea (adult) (pediatric) - ICD9: 327.23, ICD10: G47.33 (primary diagnosis) Patient doing well on PAP. Subjective and objective compliance confirmed. Perceived benefit. Tubing and mask issues as above for which Rx sent to DME for longer tubing and possible mask fitting. No other complaints. Encouraged continued compliance. Reminded to clean and replace PAP equipment regularly. Advised pt not to drive or operate heavy machinery if sleepy. 3. Parasomnia, unspecified type - ICD9: 307.47, ICD10: G47.50 Stable and asx on melatonin 3mg nightly. 4. Cervicalgia - ICD9: 723.1, ICD10: M54.2 5. Lumbar pain - ICD9: 724.2, ICD10: M54.50 Persist with lumbar pain worsening. Chronic disease and following with ortho and pain. Will ask Dr. Bowling if he feels injections at this point would help. 6. Lightheadedness - ICD9: 780.4, ICD10: R42 Resolved. PAP data download shows 90/90 days use for avg of 7 hours and 53 minutes. Sat at 5-12 cmH2O. 95% pressure was 11.7 cmH2O. 95% leak is 34 LPM. AHI is 0.4. States scheduled to see spine surgery after failing injections with Dr. Bowling. Patient states pain impacting walking, work, posture. Patient feels sleep going well. No issues falling asleep (<30 minutes). Wakes maybe once or twice per night due to chronic back pain. No nocturia. Only issues patient has with PAP is dry mouth. Using nasal masks - states not opening mouth. Pt has not tried to increase humidifier. Patient instructed on how to adjust humidifier and heated tubing settings. Bedtime about 6PM and wake time about 230AM. Finds sleep restorative. Tired during the day but pt feels due to other health conditions. Note on multiple meds and cards history that could result in fatigue. ESS 08/12. No parasomnias. Continues on melatonin 3mg daily. REVIEW OF SYSTEMS GENERAL:No weight loss, malaise or fevers. HEENT:Negative for frequent or significant headaches, No changes in hearing or vision, no nose bleeds or other nasal problems NECK:Negative for lumps, goiter, pain and significant neck swelling RESPIRATORY: Negative for cough, wheezing or shortness of breath. CARDIOVASCULAR: Negative for chest pain or palpitations. GASTROINTESTINAL: Negative for abdominal discomfort, blood in stools or black stools or change in bowel habits GENITOURINARY: No history of dysuria, frequency or incontinence MUSCULOSKELETAL: Negative for joint pain or swelling, back pain or muscle pain. NEUROLOGIC:Negative for focal numbness or weakness, headaches and dizziness or syncope, vision changes, speech/languag changes - EXCEPT that as per HPI above. SKIN:Negative for lesions, rash, and itching. LAB/IMAGING: Those performed since patient's last visit have been reviewed. WBC (k/uL) Date Value 01/01/2024 6.26 RBC (m/uL) Date Value 01/01/2024 4.62 Hemoglobin (g/dL) Date Value 01/01/2024 14.1 Hematocrit (%) Date Value 01/01/2024 42.0 MCV (fL) Date Value 01/01/2024 90.9 MCH (pg) Date Value 01/01/2024 30.5 MCHC (g/dL) Date Value 01/01/2024 33.6 RDW-CV (%) Date Value 01/01/2024 14.7 Platelet Count (k/uL) Date Value 01/01/2024 217 MPV (fL) Date Value 01/01/2024 10.2 Glucose (mg/dL) Date Value 07/25/2024 113 (H) BUN (mg/dL) Date Value 07/25/2024 17 Creatinine (mg/dL) Date Value 07/25/2024 1.17 Sodium (mmol/L) Date Value 07/25/2024 138 Potassium (mmol/L) Date Value 07/25/2024 4.1 Chloride (mmol/L) Date Value 07/25/2024 102 CO2 (mmol/L) Date Value 07/25/2024 24 Protein, Total (g/dL) Date Value 01/01/2024 6.6 Albumin (g/dL) Date Value 01/01/2024 4.3 Calcium, Total (mg/dL) Date Value 07/25/2024 9.7 Alkaline Phosphatase (U/L) Date Value 01/01/2024 121 (H) Bilirubin, Total (mg/dL) Date Value 01/01/2024 1.0 AST (U/L) Date Value 01/01/2024 15 ALT (U/L) Date Value 01/01/2024 12 Rheumatoid Factor (IU/mL) Date Value 06/21/2005 8 MEDICATIONS: metoprolol succinate ER (TOPROL XL) 25 mg 24 hr tablet^Take 1 tablet by mouth once daily.^Disp: 90 tablet^Rfl: 3 losartan (COZAAR) 50 mg tablet^Take 1 tablet by mouth once daily.^Disp: 90 tablet^Rfl: 3 amLODIPine (NORVASC) 2.5 mg tablet^Take 1 tablet by mouth once daily.^Disp: 90 tablet^Rfl: 3 dofetilide (TIKOSYN) 250 mcg capsule^Take 1 capsule by mouth two times a day.^Disp: 180 capsule^Rfl: [address] (PROTONIX) 40 mg tablet^TAKE ONE TABLET BY MOUTH DAILY ON EMPTY STOMACH ONE-HALF HOUR BEFORE BREAKFAST^Disp: 90 tablet^Rfl: 3 apixaban (ELIQUIS) 5 mg tab(s)^Take 1 tablet by mouth two times a day.^Disp: 180 tablet^Rfl: 3 atorvastatin (LIPITOR) 40 mg tablet^Take 1 tablet by mouth once daily.^Disp: 90 tablet^Rfl: 3 clotrimazole-betamethasone (LOTRISONE) cream^Apply to affected area twice daily. APPLY TO AFFECTED AREA^Disp: 45 g^Rfl: 2 nitroglycerin sublingual (NITROSTAT) 0.4 mg SL tablet^Dissolve 1 tablet under the tongue every 5 minutes as needed for chest pain.^Disp: 26 tablet^Rfl: 2 blood sugar diagnostic (BLOOD GLUCOSE TEST) test strip^Test blood sugar(s) 1 times daily. Dx: Type 2 DM - Controlled E11.42 Insulin: No^Disp: 50 Strip^Rfl: 5 TENS unit and electrodes cmpk^Us as instructed.^Disp: 1 Kit^Rfl: 0 melatonin 3 mg tablet^Take 1 tablet by mouth daily at bedtime.^Disp: 90 tablet^Rfl: 3 Lancets lancets^Test blood sugar(s) 1 times daily. Dx: Type 2 DM - Controlled E11.42 Insulin: No^Disp: 100 Each^Rfl: 3 CPAP^Patient requesting new DME. Currently has a PAP device (2015 -- may be due for new device). Please fit with a Wisp (currently with Dream wisp and causing discomfort on top of head). Lifetime supplies.^Disp: 1 Each^Rfl: 9999 Amoxicillin 500 mg tablet^Take 4 tablets by mouth as needed (1 hour before the procedure).^Disp: 4 tablet^Rfl: 0 docusate sodium (COLACE) 100 mg capsule^AT BEDTIME^Disp: ^Rfl: magnesium oxide (MAG-OX) 400 mg tablet^Take 1 tablet by mouth once daily.^Disp: 90 tablet^Rfl: 3 Cholecalciferol, Vitamin D3, 1,000 unit cap^Take 1 capsule by mouth once daily.^Disp: ^Rfl: 0 vitamin b complex (B COMPLETE) ORAL Tab^Take 1 tablet by mouth once daily.^Disp: 100 tablet^Rfl: 4 HISTORIES PAST MEDICAL HISTORY No date: Abdominal pain, right lower quadrant 05/20/2007: Acquired hypertrophic pyloric stenosis 08/26/2009: Acute coronary syndrome (HCC) 06/28/2023: Acute diastolic heart failure (HCC) 06/11/2007: Acute gastritis without mention of hemorrhage No date: Atrial fibrillation (HCC) 02/23/2015: Basal cell carcinoma Comment: Behind right mid ear, shave biopsy. Dr. Tee Clemons, Dermatology No date: Basal cell carcinoma (BCC) of skin of face Comment: Mohs 04/202109/25/2022: Cervical spondylosis 01/22/2006: Coronary atherosclerosis of unspecified type of vessel, [place] or graft Comment: moderate 07/18/2005: Diverticulosis of colon (without mention of hemorrhage) No date: Dyslipidemia 07/18/2005: Dyspepsia and other specified disorders of function of stomach Comment: Chronic gastritis, Dyspepsia. No date: Gastric ulcer, unspecified as acute or chronic, without mention of hemorrhage or perforation, with obstruction 07/18/2005: Generalized osteoarthrosis, unspecified site 05/30/2011: H. pylori infection No date: HTN (hypertension) 07/18/2005: Hypertensive 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 4 chronic kidney disease, or unspecified chronic kidney disease 07/18/2005: Impaired fasting glucose 07/18/2005: Lipoprotein deficiencies Comment: Low HDL. 08/26/2008: Lumbago Comment: Dr. Odin Coon, [facility]. 10/21/2012: Rotator cuff tear, right 08/2010: Salmonella enteritis 07/08/2007: Type II or unspecified type diabetes mellitus without mention of complication, not stated as uncontrolled 07/18/2005: Unspecified essential hypertension FAMILY HISTORY Problem Relation Age of Onset other (CVA) Mother d 89 stroke other (HTN) Mother other (CHF) Mother Ischemic Heart Disease Father Skin Cancer Father bcc other (Lymphoma) Father d 65 lymphoma other (Skin Ca) Brother Melanoma Brother other (Tremors) Brother Cancer Daughter ovarian Diabetes Maternal Grandmother other (Tremors) Brother Melanoma Other maternal uncle SOCIAL HISTORY Social History Tobacco Use Smoking status: Never Smokeless tobacco: Never Vaping Use Vaping status: Never Used Substance Use Topics Alcohol use: No Drug use: No PHYSICAL EXAMINATION BP 118/81 (BP Site: Right Arm, BP Position: Sitting) Pulse 71 Wt 93.3 kg (205 lb 9.6 oz) SpO2 99% BMI 32.20 kg/m GENERAL EXAM: General appearance: NAD, pleasant. HEENT: NC/AT, nasal congestion absent, no oral lesions, membranes moist. NECK: No masses, supple. Lungs: CTA bilaterally. CV: RRR nl S1, S2. Extr: No cyanosis, clubbing or edema. Skin: Cool to touch. NEUROLOGICAL EXAM: General: Awake, alert, oriented x3 (person,place,time), speech fluent, no dysarthria; comprehension, naming, repetition intact. CN: PERRL, EOMI and without nystagmus, VFF to confrontation, facial sensation and strength are normal and symmetric, hearing is intact to finger rub bilaterally, palate and tongue movements are intact and symmetric. SCM and trapezius strength normal. Motor: Normal tone, bulk and strength (5/5) bilaterally (throughout extremities x4). Coordination: FNF, LUKASZ, HTS intact. No tremors. Sensation: Light touch intact throughout. No evidence of neglect. Gait: Stable with cane. Assessment and Plan: ASSESSMENT/PLAN: 1. ETHAN on CPAP - ICD9: 327.23, ICD10: G47.33 (primary diagnosis) Doing well on PAP. No complaints. Perceived benefit. Subjective and objective compliance confirmed. No changes to pressures today. Dry mouth is only issue and explained to pt how to adjust both humidifier and heated tubing settings including video demonstration while in office. Reminded pt to clean and replace equipment regularly and avoid ozone dumper mold cleaner. Advised pt not to drive or operate heavy machinery if sleepy. 2. Parasomnia, unspecified type - ICD9: 307.47, ICD10: G47.50 Stable and asx. Continue melatonin 3mg nightly (if needed can increase to 5mg (limited availability of 3mg tabs)). 3. Class 1 obesity with body mass index (BMI) of 32.0 to 32.9 in adult, unspecified obesity type, unspecified whether serious comorbidity present - ICD9: 278.00, V85.32, ICD10: E66.9, Z68.32 Enocuraged weight loss. Pt will continue to follow with spine surgery for chronic cervicalgia and lumbar pain. Follow up 6 mos to 1 year or sooner prn. Rashaun Manning MD Medical Decision Making: Problems: Moderate: 2+ stable chronic illnesses Data: Unique test result(s) reviewed: 2 Risk: Low: Low risk from testing/treatment Medical Decision Making Level: 3 - Low . I spent a total of 25 minutes on the date of the service which included preparing to see the patient, [id number] patient care, completing clinical documentation, obtaining and/or reviewing separately obtained history, performing a medically appropriate examination, counseling and educating the patient/family/caregiver, independently interpreting results (not separately reported), and communicating results to the patient/family/caregiver (results include interp of PAP data download). documented in this encounter [facility] 07-24-2024 Instructions Diane Bruce PA-C - 07/24/2024 11:26 AM EDT - Continue tikosyn for rhythm control, continue Toprol - Continue eliquis for stroke protection - I placed orders for labs and EKG's for tikosyn monitoring --> you should get labs now for tikosyn (either here or in [place]) - In 6 months get an EKG and labs again - I will message Dr Bah but also call their office about the chest pain - We will continue to see you annually Diane Bruce PA-C documented in this encounter [facility] 07-24-2024 History of Present illness Narrative Images from the original note were not included. [facility] Department of Cardiovascular Medicine SECTION OF CARDIAC PACING and ELECTROPHYSIOLOGY OUTPATIENT VISIT DATE July 24, 2024 OUTPATIENT VISIT TYPE ESTABLISHED PRIMARY CARE PHYSICIAN: Galindo Yuan [address] [place] [address] CHIEF COMPLAINT: Cardiology follow up HISTORY OF PRESENT ILLNESS: Mr. Chahal is a 83 year old male who presents today for follow-up visit. He is a patient of Dr Woodruff'scott with history of previously persistent, drug refractory atrial fibrillation s/p PVAI March 2017, HTN, HLP, DM II, ETHAN on CPAP, CAD s/p PCI in 2005 and 2008. Currently managed on eliquis, dofetilide, and Toprol. Here for an annual follow up Has seen Dr Bah in [place] for general cardiology. Says he has been battling a lot of low back pain - seeing a spine doc later this month. Reports having some chest heaviness about a week ago after coming down stairs after he woke up; says it was left sided and radiated to left shoulder and was SOB. Lasted ~ 4 hrs. Little clammy. BP was in the 150's, HR's in the 70's. Says that he has had 3 other episodes of chest heaviness over the past 2 months and each of those lasted about 20 minutes No AF that he is aware of He denies abdominal distention, shortness of breath, orthopnea, cough, edema, palpitations, PND, lightheadedness or syncope. PAST CARDIAC HISTORY: See above PAST MEDICAL HISTORY No date: Abdominal pain, right lower quadrant 05/20/2007: Acquired hypertrophic pyloric stenosis 08/26/2009: Acute coronary syndrome (HCC) 06/28/2023: Acute diastolic heart failure (HCC) 06/11/2007: Acute gastritis without mention of hemorrhage No date: Atrial fibrillation (HCC) 02/23/2015: Basal cell carcinoma Comment: Behind right mid ear, shave biopsy. Dr. Tee Clemons, Dermatology No date: Basal cell carcinoma (BCC) of skin of face Comment: Mohs 04/202109/25/2022: Cervical spondylosis 01/22/2006: Coronary atherosclerosis of unspecified type of vessel, [place] or graft Comment: moderate 07/18/2005: Diverticulosis of colon (without mention of hemorrhage) No date: Dyslipidemia 07/18/2005: Dyspepsia and other specified disorders of function of stomach Comment: Chronic gastritis, Dyspepsia. No date: Gastric ulcer, unspecified as acute or chronic, without mention of hemorrhage or perforation, with obstruction 07/18/2005: Generalized osteoarthrosis, unspecified site 05/30/2011: H. pylori infection No date: HTN (hypertension) 07/18/2005: Hypertensive 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 4 chronic kidney disease, or unspecified chronic kidney disease 07/18/2005: Impaired fasting glucose 07/18/2005: Lipoprotein deficiencies Comment: Low HDL. 08/26/2008: Lumbago Comment: Dr. Odin Coon, [facility]. 10/21/2012: Rotator cuff tear, right 08/2010: Salmonella enteritis 07/08/2007: Type II or unspecified type diabetes mellitus without mention of complication, not stated as uncontrolled 07/18/2005: Unspecified essential hypertensionPAST SURGICAL HISTORY 11/2003: ARTHROSCOPY KNEE DIAGNOSTIC W/WO SYNOVIAL BX SPX Comment: Arthroscopy, knee 08/07/2016: ARTHRP ACETBLR/PROX FEM PROSTC AGRFT/ALGRFT; Right Comment: Hip replacement, total 2001: ARTHRP KNE CONDYLE&PLATU MEDIAL&LAT COMPARTMENTS Comment: Knee replacement, total, left 10/01/2017: ARTHRP KNE CONDYLE&PLATU MEDIAL&LAT COMPARTMENTS; Left Comment: revision L TKA, [facility] 04/06/2017: CC ABLATION SVT Comment: EP study, ablation for A.fib. 12/24/2002: COLONOSCOPY FLX DX W/COLLJ SPEC WHEN PFRMD Comment: Colonoscopy 05/11/2011: COLONOSCOPY FLX DX W/COLLJ SPEC WHEN PFRMD Comment: Colonoscopy 03/18/2007: ESOPHAGOGASTRODUODENOSCOPY TRANSORAL DIAGNOSTIC Comment: EGD 06/11/2007: ESOPHAGOGASTRODUODENOSCOPY TRANSORAL DIAGNOSTIC Comment: EGD 05/11/2011: ESOPHAGOGASTRODUODENOSCOPY TRANSORAL DIAGNOSTIC Comment: EGD 2000: LOPEZ W/O FACETEC FORAMOT/DSC 1/2 VRT SGM CRV Comment: Laminectomy, cervical 11/05/2008: LAMINECTOMY W/O FFD > 2 VERT SEG LUMBAR Comment: lumbar fusion 05/02/2019: LAMINOTOMY (HEMILAMINECTOMY), WITH DECOMPRESSION OF NERVE ROOT(S); Bilateral Comment: Revision hemilaminectomies L2,L3,L4-L5 01/22/2006: LEFT HEART CATH,PERCUTANEOUS Comment: Cardiac cath, heart 05/31/2011: LEFT HEART CATH,PERCUTANEOUS Comment: Cardiac cath, L heart 11/27/2011: LEFT HEART CATH,PERCUTANEOUS Comment: Cardiac cath, L heart 11/27/2013: LEFT HEART CATH,PERCUTANEOUS Comment: Cardiac cath, L heart 1995: NEUROPLASTY &/TRANSPOS MEDIAN NRV CARPAL TUNNE Comment: Carpal tunnel decomp R/L 1995: OPEN REPAIR OF ROTATOR CUFF ACUTE Comment: Rotator cuff repair, bilateral 12/28/2014: OPEN REPAIR OF ROTATOR CUFF CHRONIC; Left Comment: Left shoulder open rotator cuff repair and Sub Ac decompression 02/01/2022: SHX TOTAL SHOULDER REVERSE; Left Comment: Left reverse total shoulder arthroplasty 08/26/2009: TRANSCATH STENT INIT VESSEL,PERCUT Comment: Transcath stent init vessel percut 11/16/2010: TRANSCATH STENT INIT VESSEL,PERCUT Comment: Transcath stent init vessel percut SOCIAL HISTORY Social History Tobacco Use Smoking status: Never Smokeless tobacco: Never Vaping Use Vaping status: Never Used Substance Use Topics Alcohol use: No Drug use: No FAMILY HISTORY Problem Relation Age of Onset other (CVA) Mother d 89 stroke other (HTN) Mother other (CHF) Mother Ischemic Heart Disease Father Skin Cancer Father bcc other (Lymphoma) Father d 65 lymphoma other (Skin Ca) Brother Melanoma Brother other (Tremors) Brother Cancer Daughter ovarian Diabetes Maternal Grandmother other (Tremors) Brother Melanoma Other maternal uncle ALLERGIES: ALLERGIES Allergen Reactions Adhesive Hives Codeine HEART PALPITATIONS Darvocet-N 100 [Pro* Intolerance Heart racing Latex Hives Meperidine Hcl MEDICATIONS: metoprolol succinate ER (TOPROL XL) 25 mg 24 hr tablet^Take 1 tablet by mouth once daily.^Disp: 90 tablet^Rfl: 3 losartan (COZAAR) 50 mg tablet^Take 1 tablet by mouth once daily.^Disp: 90 tablet^Rfl: 3 amLODIPine (NORVASC) 2.5 mg tablet^Take 1 tablet by mouth once daily.^Disp: 90 tablet^Rfl: 3 dofetilide (TIKOSYN) 250 mcg capsule^Take 1 capsule by mouth two times a day.^Disp: 180 capsule^Rfl: [address] (PROTONIX) 40 mg tablet^TAKE ONE TABLET BY MOUTH DAILY ON EMPTY STOMACH ONE-HALF HOUR BEFORE BREAKFAST^Disp: 90 tablet^Rfl: 3 apixaban (ELIQUIS) 5 mg tab(s)^Take 1 tablet by mouth two times a day.^Disp: 180 tablet^Rfl: 3 atorvastatin (LIPITOR) 40 mg tablet^Take 1 tablet by mouth once daily.^Disp: 90 tablet^Rfl: 3 clotrimazole-betamethasone (LOTRISONE) cream^Apply to affected area twice daily. APPLY TO AFFECTED AREA^Disp: 45 g^Rfl: 2 nitroglycerin sublingual (NITROSTAT) 0.4 mg SL tablet^Dissolve 1 tablet under the tongue every 5 minutes as needed for chest pain.^Disp: 26 tablet^Rfl: 2 blood sugar diagnostic (BLOOD GLUCOSE TEST) test strip^Test blood sugar(s) 1 times daily. Dx: Type 2 DM - Controlled E11.42 Insulin: No^Disp: 50 Strip^Rfl: 5 TENS unit and electrodes cmpk^Us as instructed.^Disp: 1 Kit^Rfl: 0 melatonin 3 mg tablet^Take 1 tablet by mouth daily at bedtime.^Disp: 90 tablet^Rfl: 3 Lancets lancets^Test blood sugar(s) 1 times daily. Dx: Type 2 DM - Controlled E11.42 Insulin: No^Disp: 100 Each^Rfl: 3 CPAP^Patient requesting new DME. Currently has a PAP device (2015 -- may be due for new device). Please fit with a Wisp (currently with Dream wisp and causing discomfort on top of head). Lifetime supplies.^Disp: 1 Each^Rfl: 9999 Amoxicillin 500 mg tablet^Take 4 tablets by mouth as needed (1 hour before the procedure).^Disp: 4 tablet^Rfl: 0 docusate sodium (COLACE) 100 mg capsule^AT BEDTIME^Disp: ^Rfl: magnesium oxide (MAG-OX) 400 mg tablet^Take 1 tablet by mouth once daily.^Disp: 90 tablet^Rfl: 3 Cholecalciferol, Vitamin D3, 1,000 unit cap^Take 1 capsule by mouth once daily.^Disp: ^Rfl: 0 vitamin b complex (B COMPLETE) ORAL Tab^Take 1 tablet by mouth once daily.^Disp: 100 tablet^Rfl: 4 REVIEW OF SYSTEMS: + Findings in bold GENERAL: Negative for: Weight loss or gain, Fever or Chills, Weakness and Sleep difficulties. HEENT: Negative for: Headache, Impaired Vision, Glasses, Hearing Impairment, Ringing in Ears, Nosebleeds, Poor Dental Care, Bleeding Gums and Dentures. NECK: Negative for: Swelling, Pain, Stiffness RESPIRATORY: Negative for: Cough, Blood in Sputum, Shortness of breath, Wheezing, Apnea GASTROINTESTINAL: Negative for: Trouble swallowing, Heartburn, Change in bowel habits, Blood in stool, Dark black stools MUSCULOSKELETAL: Negtive for: Muscle or joint pain, stiffness, Joint swelling NEUROLOGIC/PSYCHIATRIC: Negative for: Weakness, Paralysis, Numbness, Tingling, Tremor, Nervousness or anxiety, Depressed mood, Memory loss SKIN: Negative for: Rash, Itching HEMATOLOGICAL/LYMPHATIC: Negative for: Easy bruising, Easy bleeding ENDOCRINE: Negative for: Heat or Cold Intolerance, Excessive Sweating, Frequent Urination, Frequent Thirst PHYSICAL EXAMINATION: BP 128/60 (BP Site: Left Arm, BP Position: Sitting, BP Cuff Size: Regular Adult) Pulse 69 Wt 93 kg (205 lb 0.4 oz) BMI 32.11 kg/m General: Well appearing, in no acute distress, speaking in complete sentences. Neck: No jugular venous distention, no carotid bruits, carotids have a normal upstroke, no palpable thyromegaly. Lungs: Clear to auscultation bilaterally, no wheezing or rhonchi. Heart: Regular rhythm, PMI not displaced, S1, S2 normal, no S3, no S4, no heaves, no rub and no murmur. Abdomen: Soft, nontender, bowel sounds normal, no palpable organomegaly, no bruits. Extremities: No peripheral edema . Grade 2/4 distal pulses bilaterally. Neuro: Oriented to person, place and time, alert, cooperative, gait coordinated. CARDIOVASCULAR MEDICINE TESTING: Electrocardiogram: July 24, 2024 Sinus rhythm, rate of 69 BPM QTc 435 ms Echo: 2022 - The left ventricle is normal in size. There is mild upper septal left ventricular hypertrophy. Left ventricular systolic function is normal. EF = 58 5% (2D biplane) Grade I left ventricular diastolic dysfunction. - The right ventricle is normal in size. Right ventricular systolic function is normal. - Exam was compared with the prior echocardiographic exam performed on 12/27/2021, no significant change. Cardiac Cath: 01/2023 LMT: _ The LMT has mild diffuse disease. LAD: _ The LAD has mild diffuse disease. _ The proximal LAD is narrowed 30 % - ISR. Additional Comment: Moderate to large caliber vessel. There are patent stents from the proximal to mid LAD with mild diffuse in-stent restenosis. The mid and mid distal vessel has mild diffuse disease. LCX: _ The Circumflex has mild diffuse disease. _ The 1st obtuse marginal circumflex is narrowed 50 % - focal disease. Additional Comment: Large-caliber nondominant vessel extending into a distal obtuse marginal branch. The first obtuse marginal branch has mild to moderate focal ostial disease estimated 50-60% luminal narrowing. The remainder the vessel has mild diffuse disease. The AV groove circumflex has minimal disease. The distal obtuse marginal branch has mild diffuse disease. RAMUS: _ The Ramus has mild diffuse disease. _ The ostial Ramus is narrowed 50 % - focal disease. Additional Comment: Large caliber vessel. The ostium of the vessel has mild focal disease estimated 40-50% luminal narrowing. There is a patent stent in the proximal segment with mild in-stent restenosis. Otherwise mild diffuse disease. RCA: _ The RCA has mild diffuse disease. Additional Comment: Large-caliber dominant vessel. There is a widely patent stent in the proximal vessel. The remainder the vessel has mild diffuse disease. Latest Ref Rng 12/12/2023 01/01/2024 Protein, Total 6.3 - 8.0 g/dL 6.6 Albumin 3.9 - 4.9 g/dL 4.3 Calcium 8.5 - 10.2 mg/dL 9.5 Bilirubin, Total 0.2 - 1.3 mg/dL 1.0 Alkaline Phosphatase 38 - 113 U/L 121 (H) AST 14 - 40 U/L 15 ALT 10 - 54 U/L 12 Glucose 74 - 99 mg/dL 102 (H) BUN 9 - 24 mg/dL 14 Creatinine 0.73 - 1.22 mg/dL 1.22 Sodium 136 - 144 mmol/L 141 Potassium 3.7 - 5.1 mmol/L 4.4 Chloride 97 - 105 mmol/L 106 (H) CO2 22 - 30 mmol/L 26 Anion Gap 9 - 18 mmol/L 9 eGFR >=60 mL/min/1.73m 59 (L) WBC 3.70 - 11.00 k/uL 6.26 RBC 4.20 - 6.00 m/uL 4.62 Hemoglobin 13.0 - 17.0 g/dL 14.1 Hematocrit 39.0 - 51.0 % 42.0 MCV 80.0 - 100.0 fL 90.9 MCH 26.0 - 34.0 pg 30.5 MCHC 30.5 - 36.0 g/dL 33.6 RDW-CV 11.5 - 15.0 % 14.7 Platelet Count 150 - 400 k/uL 217 MPV 9.0 - 12.7 fL 10.2 Absolute nRBC <0.01 k/uL <0.01 Magnesium 1.7 - 2.3 mg/dL 2.1 I have personally reviewed the Electrocardiogram. IMPRESSION: Mr. Chahal is a 83 year old male with previously persistent, drug refractory atrial fibrillation s/p PVAI March 2017, HTN, HLP, DM II, ETHAN on CPAP, CAD s/p PCI in 2005 and 2008. Here for routine annual visit for Tikosyn monitoring. He is in sinus rhythm on EKG today with a stable QTc interval of 435 ms. Reports no awareness of any breakthroughs of atrial fibrillation in the past year. Continues to be anticoagulated with Eliquis without any bleeding complications. However he reported having a couple of episodes of left-sided chest heaviness over the past 2 months. Last episode was the most significant 1 that lasted for hours, radiated to his left shoulder, associated with shortness of breath and sweating. Has not recurred since. His cath was done 1 year ago with overall stable findings from before. PLAN AND RECOMMENDATIONS: -With regards to his chest pain I will send a message to Dr. Bah/patient to inform the office -Continue Tikosyn therapy at current dose. QTc remained stable on EKG -Continue Toprol and Eliquis -Standing orders placed for EKG and labs for dofetilide monitoring. He needs to update labs now, and in 6 months needs EKG and labs locally in [place] -In we will see him again in 1 year I personally interviewed, confirmed and edited the above information as obtained by others. CONTACT INFORMATION: Diane Bruce PA-C I spent 35 minutes in the visit, with more than 50% of the total [id number] time of the visit in counseling / coordination of care. documented in this encounter [facility] 06-20-2024 Instructions Ana Mckoy, UNIVERSITY TUTOR.DENTAL FLOSS PACKER - 06/20/2024 7:21 AM EDT Screening schedule The following prevention plan is recommended: RSV Vaccine(1 - 1-dose 60+ series) Never done WHAT YOU CAN DO TO PREVENT FALLS Many falls can be prevented. By making some changes, you can lower your chances of falling. Four things YOU can do to prevent falls for you* and your caregiver 1. Begin a regular exercise program Exercise is one of the most important ways to lower your chances of falling. It makes you stronger and helps you feel better. Exercises that improve balance and coordination (like Angel Chi) are the most helpful. Lack of exercise leads to weakness and increases your chances of falling. Ask your doctor or health care provider about the best type of exercise program for you. 2. Have your health care provider review your medicines Have your doctor or pharmacist review all the medicines you take, even sqgn-clr-[id number] medicines. As you get older, the way medicines work in your body can change. Some medicines, or combinations of medicines, can make you sleepy or dizzy and can cause you to fall. 3. Have your vision checked Have your eyes checked by an eye doctor at least once a year. You may be wearing the wrong glasses or have a condition like glaucoma or cataracts that limits your vision. Poor vision can increase your chances of falling. 4. Make your home safer About half of all falls happen at home. To make your home safer: Remove things you can trip over (like papers, books, clothes, and shoes) from stairs and places where you walk. Remove small throw rugs or use double-sided tape to keep the rugs from slipping. Keep items you use often in cabinets you can reach easily without using a step stool. Have grab bars put in next to your toilet and in the tub or shower. Use non-slip mats in the bathtub and on shower floors. Improve the lighting in your home. As you get older, you need brighter lights to see well. Hang light-weight curtains or shades to reduce glare. Have handrails and lights put in on all staircases. Wear shoes both inside and outside the house. Avoid going barefoot or wearing slippers. For more information, contact: Centers for Disease Control and Prevention www.cdc.gov/injury * This information may not apply if you have certain medical conditions. documented in this encounter [facility] 06-20-2024 History of Present illness Narrative Images from the original note were not included. Jg Chahal is a 83 year old male here for a Medicare wellness visit. Medicare Health Risk Assessment General Health Good Exercise: Minutes/Day 30 min Exercise: Days/Week 5 days Alcohol: Daily Use Never Alcohol: Drinks/Day Patient does not drink Alcohol: 6 or more drinks Never Feel off balance No Concerns: Teeth/Dentures No Concerns: Sexual function No Troubled by feelings None of the above Frequency: Eating healthy diet Nearly every day ADLs requiring help None of the above Safety precautions in home/vehicle Yes Smoke, vape, chews tobacco No Difficulty hearing Yes Difficulty seeing Current Providers Specialists: I have reviewed specialist-related care of the patient in the medical record. Current care team: Patient Care Team: Galindo Yuan MD as PCP - General (Internal Medicine) Dr. Bah (Cardiology) (dermatology) Dr. Manning (neurology) Dr. Bowling (pain management) Outside specialists seen: [facility] Medical/Family history review Reviewed and updated problem list, medical/surgical/family/social history, medications, and allergies. Opioid use review Opioid Medications (last 90 days) No data to display Anxiety/Depression screening PHQ-2 Score: 0 (Lower risk for depression) SHREYAS-2 Score: 0 (Lower risk for anxiety) Recommendation: no further intervention at this time Cognitive screening Mini Cog Score: 5 Cognitive screening reviewed and No further action needed (score 3-5). Functional Observation Was the patient's Timed Up & Go test unsteady or ? 12 seconds? No Advance Care Planning Patient was not able to provide a surrogate decision maker or written advance directives Measurements BP 142/92 Pulse 76 Resp 12 Ht 170.2 cm (5' 7) Wt 96.3 kg (212 lb 4.9 oz) SpO2 97% BMI 33.25 kg/m Vision Screening: Follows with optometry/ophthalmology Assessment/Plan Medicare annual wellness visit, subsequent (Z00.00) - Counseled on healthy diet and regular exercise - Fall avoidance information provided - Personalized prevention plan provided Additional Concerns The following concerns were also discussed with the patient: Diabetes: Diet controlled Home blood sugar readings: does not check Increased thirst: No Urinary frequency: No Nocturia: No Fatigue: No Unintentional weight loss: No Blurred vision: No Numbness, tingling or pain in extremities: No Ulcers or sores on feet: No Last Ophthalmology exam: within the past 12 months Patient's last HgA1C : Hemoglobin A1C (%) Date Value 01/01/2024 5.8 06/20/2023 5.8 11/17/2021 6.1 05/05/2021 6.1 Hemoglobin A1C (POCT) (%) Date Value 06/19/2022 5.8 HTN-Medication changes:No Taking all medications as prescribed: Yes Side effects: No Home BP's: No Denies: headache, chest pain, palpitations, dyspnea, and peripheral edema. Last 3 Encounter BP Readings: Date: BP: 06/20/2024 140/76 06/16/2024 134/76 03/26/2024 141/65 ETHAN: Is compliant with CPAP. No changes in settings. Denies issues with mask. Denies snoring, un-refreshed sleep, insomnia, excessive daytime drowsiness. PHYSICAL EXAM BP 142/92 Pulse 76 Resp 12 Ht 170.2 cm (5' 7) Wt 96.3 kg (212 lb 4.9 oz) SpO2 97% BMI 33.25 kg/m GENERAL: well appearing, alert, in no acute distress CARDIOVASCULAR: regular rate and rhythm. No murmur, rubs or gallops. PULMONARY: clear to auscultation, no wheezing, rhonchi, or crackles ASSESSMENT/PLAN: 1. Medicare annual wellness visit, subsequent - ICD9: V70.0, ICD10: Z00.00 (primary diagnosis) See medicare wellness plan 2. 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 Hypertensive 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 4 chronic kidney disease, or unspecified chronic kidney disease - ICD9: 403.90, ICD10: I12.9 - Controlled - Continue current medications - Recommend home blood pressure monitoring, to bring results to next visit - Encouraged sodium restriction, DASH or Mediterranean diet 4. ETHAN on CPAP - ICD9: 327.23, ICD10: G47.33 Compliant with CPAP 5. Screening for depression - ICD9: V79.0, ICD10: Z13.31 - DEPRESSION SCREENING 6. Encounter for screening examination for other mental health and behavioral disorders - ICD9: V79.8, ICD10: Z13.39 - ANXIETY SCREENING 7. Encounter for immunization - ICD9: V03.89, ICD10: Z23 - [employer] COVID-19 VACCINE (2022- SEASON) AGE 12+ YR - RSV PRINTED PHARMACY INSTRUCTIONS Ana Mckoy APRN.[facility]ELL documented in this encounter [facility] 06-17-2024 History of Present illness Narrative Images from the original note were not included. Subjective Jg Chahal presents to [facility] Pain Management Department for a follow up appointment. Since the last visit, Jg Chahal states the pain has been improved with the injection in February. Current pain intensity is 6 on a scale of 0-10. Pain located in lower back and gluteal area and radiates to the left LE to the level of the thigh. Pain described as aching Symptoms interfere with walking. Pain is exacerbated by walking and standing. Pain is mitigated by sitting. The patient is overall improved with the injections by 75%. Patient Entered Questionnaires PROMIS Score Percentiles 02/14/2023 02/13/2024 PROMIS Global Health Scale Physical Health Percentile 22* 15 15 Mental Health Percentile 73 34 34 02/14/2023 02/13/2024 Physical Health Physical Function Percentile 38 12 Pain Interference Percentile 10 10 Percentiles provide an indication of how the patient's score ranks in relation to the general population. Higher percentile rankings indicate better function/quality of life. 50th percentile is the average of the general population and indicates half of respondents had a worse score. > 31st percentile is within normal limits or better * < 31st percentile is at least SD worse than population, which may be clinically relevant < 16th percentile is at least 1 SD worse than population and warrants attention Review of Systems Constitutional: (-) Weight Gain (-) Weight Loss (-) Fatigue Cardiovascular: (-) hx heart surgery (-) Pacemaker Respiratory: (-) Shortness of Breath (-) Cough (-) Snoring Gastrointestinal: (-) Incontinence (-) Diarrhea (-) Constipation (-) Nausea/Vomiting Endocrine: (-) Thyroid Disorder (-) Diabetes Hematologic: (-) Prolonged Bleeding (-) Easy Bruising Genitourinary: (-) Incontinence (-) Frequency (-) Urinary Urgency Skin: (-) Open sores/wound Neurologic: (-) Headache (-) Double Vision Psychiatric: (-) Depression (-) Anxiety (-) Personal History of Alcohol or Substance Abuse (-) Family History of Alcohol or Substance Abuse Chief Complaint Patient presents with: Back Pain Follow Up Physical Examination Pulse 69 Wt 214 lb 8.1 oz (97.3kg) SpO2 96% General:well appearing and alert Skin: Skin color, texture, turgor normal, no rashes or lesions HEENT: normal Cardiovascular: Regular, rate and rhythm Lungs: Normal respiratory rate and rhythm, unlabored on room air Musculoskeletal: Back: Tenderness on palpation over the lumbar spine. , Tenderness over the left lumbar paraspinal muscles, Pain reproduced with flexion of the lumbar spine., Pain reproduced with extension of the lumbar spine. , Diffiuclty going from sitting to standing. Extremities: Extremities normal. No deformities, edema, or skin discoloration Neurological: Mental Status: alert Gait: Antalgic. Trigger points: lumbosacral spine muscles. Assessment Assessment : Patient presents for an injection follow-up He had a left L4-5 transforaminal injection on 03-18-2024 with 75% improvement but only lasted for about 30 days He has chronic low back pain mainly on the left side that radiates down the left lower extremity He reports difficulty standing and has been using a cane to ambulate Patient has a history of spinal fusion from [facility] about 3 years ago. He has had a total of 3 back surgeries and a neck surgery He defers repeating the injection due to not lasting as long as he expected Discussed spine surgery consult Encounter Diagnosis ICD-10-CM 1. Lumbar radiculopathy M54.16 CONSULT TO SPINE SURGERY 2. Lumbar spondylosis M47.816 CONSULT TO SPINE SURGERY 02/13/2024 PROMIS CAT Pain Interference PROMIS Pain Interference T-Score (range: 10 - 90) 63 (moderate) PROMIS Pain Interference Percentile 10 PROMIS Adult Short Form-Global Health Score (Mental) 45.8 (Good) OARRS Report: Reviewed: The patient's OARRS report was reviewed and is consistent with the reported medication use. Plan Injection history was reviewed. Medication use and compliance were reviewed. 1. Consult spine surgery 2. No meds prescribed today 3. Interventional procedure options discussed. None. Consider SCS? 4. Encouraged regular home exercise program. 5) F/U in prn The level of medical decision making for this encounter was low level. I spent a total of 25 minutes on the date of the service which included preparing to see the patient, [id number] patient care, completing clinical documentation, performing a medically appropriate examination, and ordering medications, tests, or procedures. 1. This document has been created with the use of voice recognition technology. It may contain inaccuracies: (e.g. misspellings, inaccurate syntax or word sense) that have escaped review. 2. The physician, nursing staff and medical assistants are a major part of YOUR TREATMENT TEAM and will be handling your phone calls and inquiries, if any. Unless explicitly told otherwise at the time of your office visit, your study results and ensuing treatment plans will be discussed during your follow-up appointment. If you do not have a follow-up appointment and wish to discuss any issues, please set up an appointment. 3. It is my practice to not fill disability or any other insurance-related forms/documentation. All of the office notes, study results, and other pertinent documentation generated as part of your evaluation will be available to you and to your Primary Care Physician (PCP). Use of this material to complete such forms will be at the discretion of your PCP/referring physician. The above plan and management options were discussed at length with patient. Patient is in agreement with the above and verbalized understanding. Krystin Hernandez APRN, CNP June 17, 2024 documented in this encounter [facility] 06-16-2024 History of Present illness Narrative Images from the original note were not included. [facility] SE[facility]IONAL CARDIOLOGY Cardiology ([facility]) [address] [facility] [id number] OUTPATIENT VISIT DATE 06/16/2023 PRIMARY CARE PHYSICIAN: Galindo Yuan [address] [place] [address] HISTORY OF PRESENT ILLNESS: Mr. Chahal is a 83 year old gentleman with known coronary artery disease and prior coronary intervention, paroxysmal atrial fibrillation currently maintained on Tikosyn, hypertension, dyslipidemia and diabetes [id number] who presents for routine follow-up. Patient continues to do well from a functional standpoint. He is limited by lower back pain. He has not had symptoms concerning for congestive heart failure including PND, orthopnea, or lower extremity edema. He denies overt palpitations but does describe a flutter feeling that is brief that happens intermittently. He denies chest pain, chest pressure, or dyspnea on exertion. 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 Dr. Tee Clemons, Dermatology Basal cell carcinoma (BCC) of skin of face Mohs 04/2021 Cervical spondylosis 09/25/2022 Coronary atherosclerosis of unspecified type of vessel, [place] or graft 01/22/2006 moderate Diverticulosis of colon (without mention of hemorrhage) 07/18/2005 Dyslipidemia Dyspepsia and other specified disorders of function of stomach 07/18/2005 Chronic gastritis, Dyspepsia. Gastric ulcer, unspecified as acute or chronic, without mention of hemorrhage or perforation, with obstruction Generalized osteoarthrosis, unspecified site 07/18/2005 H. pylori infection 05/30/2011 HTN (hypertension) Hypertensive 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 4 chronic kidney disease, or unspecified chronic kidney disease 07/18/2005 Impaired fasting glucose 07/18/2005 Lipoprotein deficiencies 07/18/2005 Low HDL. Lumbago 08/26/2008 Dr. Odin Coon, [facility]. Rotator cuff tear, right 10/21/2012 Salmonella enteritis 08/2010 Type II or unspecified type diabetes mellitus without mention of complication, not stated as uncontrolled 07/08/2007 Unspecified essential hypertension 07/18/2005 PAST SURGICAL HISTORY Procedure Laterality Date ARTHROSCOPY KNEE DIAGNOSTIC W/WO SYNOVIAL BX SPX 11/2003 Arthroscopy, knee ARTHRP ACETBLR/PROX FEM PROSTC AGRFT/ALGRFT Right 08/07/2016 Hip replacement, total ARTHRP KNE CONDYLE&PLATU MEDIAL&LAT COMPARTMENTS 2002 Knee replacement, total, left ARTHRP KNE CONDYLE&PLATU MEDIAL&LAT COMPARTMENTS Left 10/01/2017 revision L TKA, [facility] CC ABLATION SVT 04/06/2017 EP study, ablation for A.fib. COLONOSCOPY FLX DX W/COLLJ SPEC WHEN PFRMD 12/24/2002 Colonoscopy COLONOSCOPY FLX DX W/COLLJ SPEC WHEN PFRMD 05/11/2011 Colonoscopy ESOPHAGOGASTRODUODENOSCOPY TRANSORAL DIAGNOSTIC 03/18/2007 EGD ESOPHAGOGASTRODUODENOSCOPY TRANSORAL DIAGNOSTIC 06/11/2007 EGD ESOPHAGOGASTRODUODENOSCOPY TRANSORAL DIAGNOSTIC 05/11/2011 EGD LOPEZ W/O FACETEC FORAMOT/DSC 1/2 VRT SGM CRV 2000 Laminectomy, cervical LAMINECTOMY W/O FFD > 2 VERT SEG LUMBAR 11/05/2008 lumbar fusion LAMINOTOMY (HEMILAMINECTOMY), WITH DECOMPRESSION OF NERVE ROOT(S) Bilateral 05/02/2019 Revision hemilaminectomies L2,L3,L4-L5 LEFT HEART CATH,PERCUTANEOUS 01/22/2006 Cardiac cath, L heart LEFT HEART CATH,PERCUTANEOUS 05/31/2011 Cardiac cath, L heart LEFT HEART CATH,PERCUTANEOUS 11/27/2011 Cardiac cath, L heart LEFT HEART CATH,PERCUTANEOUS 11/27/2013 Cardiac cath, L heart NEUROPLASTY &/TRANSPOS MEDIAN NRV CARPAL TUNNE 1996 Carpal tunnel decomp R/L OPEN REPAIR OF ROTATOR CUFF ACUTE 1996 Rotator cuff repair, bilateral OPEN REPAIR OF ROTATOR CUFF CHRONIC Left 12/28/2014 Left shoulder open rotator cuff repair and Sub Ac decompression SHX TOTAL SHOULDER REVERSE Left 02/01/2022 Left reverse total shoulder arthroplasty TRANSCATH STENT INIT VESSEL,PERCUT 08/26/2009 Transcath stent init vessel percut TRANSCATH STENT INIT VESSEL,PERCUT 11/16/2010 Transcath stent init vessel percut SOCIAL HISTORY Social History Tobacco Use Smoking status: Never Smokeless tobacco: Never Vaping Use Vaping Use: Never used Substance Use Topics Alcohol use: No Drug use: No FAMILY HISTORY Problem Relation Age of Onset other (CVA) Mother d 89 stroke other (HTN) Mother other (CHF) Mother Ischemic Heart Disease Father Skin Cancer Father bcc other (Lymphoma) Father d 65 lymphoma other (Skin Ca) Brother Melanoma Brother other (Tremors) Brother Cancer Daughter ovarian Diabetes Maternal Grandmother other (Tremors) Brother Melanoma Other maternal uncle ALLERGIES: ALLERGIES Allergen Reactions Adhesive Hives Codeine HEART PALPITATIONS Darvocet-N 100 [Pro* Intolerance Heart racing Latex Hives Meperidine Hcl MEDICATIONS: metoprolol succinate ER (TOPROL XL) 25 mg 24 hr tablet^Take 1 tablet by mouth once daily.^Disp: 90 tablet^Rfl: 3 losartan (COZAAR) 50 mg tablet^Take 1 tablet by mouth once daily.^Disp: 90 tablet^Rfl: 3 amLODIPine (NORVASC) 2.5 mg tablet^Take 1 tablet by mouth once daily.^Disp: 90 tablet^Rfl: 3 dofetilide (TIKOSYN) 250 mcg capsule^Take 1 capsule by mouth two times a day.^Disp: 180 capsule^Rfl: [address] (PROTONIX) 40 mg tablet^TAKE ONE TABLET BY MOUTH DAILY ON EMPTY STOMACH ONE-HALF HOUR BEFORE BREAKFAST^Disp: 90 tablet^Rfl: 3 apixaban (ELIQUIS) 5 mg tab(s)^Take 1 tablet by mouth two times a day.^Disp: 180 tablet^Rfl: 3 atorvastatin (LIPITOR) 40 mg tablet^Take 1 tablet by mouth once daily.^Disp: 90 tablet^Rfl: 3 clotrimazole-betamethasone (LOTRISONE) cream^Apply to affected area twice daily. APPLY TO AFFECTED AREA^Disp: 45 g^Rfl: 2 nitroglycerin sublingual (NITROSTAT) 0.4 mg SL tablet^Dissolve 1 tablet under the tongue every 5 minutes as needed for chest pain.^Disp: 26 tablet^Rfl: 2 blood sugar diagnostic (BLOOD GLUCOSE TEST) test strip^Test blood sugar(s) 1 times daily. Dx: Type 2 DM - Controlled E11.42 Insulin: No^Disp: 50 Strip^Rfl: 5 TENS unit and electrodes cmpk^Us as instructed.^Disp: 1 Kit^Rfl: 0 melatonin 3 mg tablet^Take 1 tablet by mouth daily at bedtime.^Disp: 90 tablet^Rfl: 3 Lancets lancets^Test blood sugar(s) 1 times daily. Dx: Type 2 DM - Controlled E11.42 Insulin: No^Disp: 100 Each^Rfl: 3 CPAP^Patient requesting new DME. Currently has a PAP device (2016 -- may be due for new device). Please fit with a Wisp (currently with Dream wisp and causing discomfort on top of head). Lifetime supplies.^Disp: 1 Each^Rfl: 9999 Amoxicillin 500 mg tablet^Take 4 tablets by mouth as needed (1 hour before the procedure).^Disp: 4 tablet^Rfl: 0 docusate sodium (COLACE) 100 mg capsule^AT BEDTIME^Disp: ^Rfl: magnesium oxide (MAG-OX) 400 mg tablet^Take 1 tablet by mouth once daily.^Disp: 90 tablet^Rfl: 3 Cholecalciferol, Vitamin D3, 1,000 unit cap^Take 1 capsule by mouth once daily.^Disp: ^Rfl: 0 vitamin b complex (B COMPLETE) ORAL Tab^Take 1 tablet by mouth once daily.^Disp: 100 tablet^Rfl: 4 zolpidem (AMBIEN) 5 mg tablet^Take 1 tablet by mouth at bedtime as needed for sedation for up to 14 days.^Disp: 14 tablet^Rfl: 0 REVIEW OF SYSTEMS: Review of Systems Constitutional: Negative for chills, fever, malaise/fatigue and weight loss. HENT: Negative for hearing loss and sore throat. Eyes: Negative for blurred vision and double vision. Respiratory: Negative. Cardiovascular: Negative. Gastrointestinal: Negative. Genitourinary: Negative for dysuria, frequency, hematuria and urgency. Musculoskeletal: Negative. Skin: Negative. Neurological: Negative for dizziness, seizures, loss of consciousness, weakness and headaches. Endo/Heme/Allergies: Negative for environmental allergies. Does not bruise/bleed easily. Psychiatric/Behavioral: Negative for depression. PHYSICAL EXAMINATION: BP 134/76 Pulse 66 Wt 214 lb (97.1kg) SpO2 96% General: Pleasant gentleman sitting appears comfortable no apparent distress he is alert and oriented x3 HEENT: Carotid upstrokes are brisk bilaterally without bruits no JVD appreciated. Pulmonary: Lungs are clear no rales, wheezes, rhonchi Cardiovascular: Normal S1, S2 with regular rate and rhythm. No murmurs, rubs, or gallops Extremities: Warm, well-perfused, no lower extremity edema. 2+ distal pulses. CARDIOVASCULAR MEDICINE TESTING: ECG in the office 11/05/2023: Normal sinus rhythm with first-degree AV block 256 ms. Normal axis. No significant ST or T wave changes Cardiac Catheterization 01/17/2023: Post- Procedure Diagnosis: Patent stents in the proximal right coronary artery, proximal to mid LAD, and proximal ramus branch all with mild diffuse in-stent restenosis. Otherwise mild to moderate diffuse coronary disease noted. Right coronary dominant system. Normal LVEDP Hemodynamics: LVEDP: 7 mmHg LV - AORTA: No gradient. Coronary Angiography: Left Main: Mild diffuse disease Left Anterior Descending: Moderate to large caliber vessel. There are patent stents from the proximal to mid LAD with mild diffuse in-stent restenosis. The mid and mid distal vessel has mild diffuse disease. Circumflex: Large-caliber nondominant vessel extending into a distal obtuse marginal branch. The first obtuse marginal branch has mild to moderate focal ostial disease estimated 50-60% luminal narrowing. The remainder the vessel has mild diffuse disease. The AV groove circumflex has minimal disease. The distal obtuse marginal branch has mild diffuse disease Ramus: Large caliber vessel. The ostium of the vessel has mild focal disease estimated 40-50% luminal narrowing. There is a patent stent in the proximal segment with mild in-stent restenosis. Otherwise mild diffuse disease Right Coronary Artery: Large-caliber dominant vessel. There is a widely patent stent in the proximal vessel. The remainder the vessel has mild diffuse disease Echocardiogram 08/07/2023: - Exam indication: Atrial fibrillation - The left ventricle is normal in size. There is mild upper septal left ventricular hypertrophy. Left ventricular systolic function is normal. EF = 58 5% (2D biplane) Grade I left ventricular diastolic dysfunction. - The right ventricle is normal in size. Right ventricular systolic function is normal. - Exam was compared with the prior echocardiographic exam performed on 12/27/2021, no significant change. Echocardiogram 12/27/2021: - Technically difficult exam due to body habitus. - Exam indication: Pre-op clearance; S/p AF ablation - The left ventricle is small. There is moderate upper septal left ventricular hypertrophy. Left ventricular systolic function is normal. EF = 66 5% (2D biplane) Grade I left ventricular diastolic dysfunction. - The right ventricle is normal in size. Right ventricular systolic function is normal. - No significant valvular disease. - There is resting mild non-obstructive chordal ISELA IMPRESSION: Mr. Chahal is a 83 year old gentleman with extensive cardiac history and prior coronary interventions most recent 2005 with stenting of the LAD and RCA with recent cardiac catheterization January 2023 demonstrating patent stents and mild to moderate diffuse disease. He is also treated for paroxysmal atrial fibrillation with prior pulmonary vein isolation procedure and currently maintained on Tikosyn. He has a history of diabetes (ixs-jizqpao-[id number]) hypertension and dyslipidemia. He presents the office for routine follow-up. PLAN AND RECOMMENDATIONS: 1. Coronary artery disease of [place] artery of [place] heart with stable angina pectoris (HCC) - ICD9: 414.01, 413.9, ICD10: I25.118 (primary diagnosis) Patient doing well without overt anginal symptoms. Catheterization from January 2023 was reviewed with the patient during the office visit. 2. Paroxysmal atrial fibrillation (HCC) - ICD9: 427.31, ICD10: I48.[address] Argueta for electrophysiology. He is maintaining sinus rhythm on current dose of Tikosyn. He is on Eliquis for stroke risk reduction 3. Hypertensive 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 4 chronic kidney disease, or unspecified chronic kidney disease - ICD9: 403.90, ICD10: I12.9 Adequate control on current regimen. 4. Hypercholesteremia - ICD9: 272.0, ICD10: E78.00 Maintained on atorvastatin 40 mg daily. Fasting blood work from January 2024 was reviewed. LDL cholesterol 38 mg/dL Anurag Bah MD documented in this encounter [facility] 06-03-2024 History of Present illness Narrative Last saw pcp: 12/20/23 Subjective: Patient presents to clinic c/o painful toenails. They state that the nails are especially painful with shoe gear and pressure. Patient states that nails right 3rd are painful. Patient admits to being diabetic. No other pedal complaints at this time. Patient states no change in medications or medical history since last visit. Objective: Patient presents to clinic ambulating in diabetic shoes Vasc: DP and PT pulses are palpable bilateral. CFT is less than 5 seconds bilateral. Skin temperature is warm to cool proximal to distal bilateral. There is no edema or varicosities noted. Neuro: Protective sensation is absent to the foot and toes when tested with the 5.07 SWM bilateral. Vibratory sensation is absent at the hallux IPJ bilateral. The hallux is downgoing bilateral. Derm: Nails 1-5 right and 1,2,5 left are painful, discolored-yellow, thick, crumbly, dystrophic and with subungal debris. Left 3rd and 4th nail have been removed. Skin is of normal turgor, texture and hair growth is present bilateral. Callus present to distal tuft of b/l 3rd toe. There are no other lesions noted. Ortho: Muscle strength is 5/5 for all pedal groups tested. Ankle joint DF is decreased with the knee extended with no pain or crepitus noted. 1st MPJ ROM is decreased bilateral. Hammertoe is present to lesser toes of b/l feet Assessment: (B35.1) Onychomycosis (primary encounter diagnosis) (M79.674) Pain in toe of right foot (M79.675) Pain in toe of left foot (E11.49) Other diabetic neurological complication associated with type 2 diabetes mellitus (HCC) (L85.9) Hyperkeratosis Plan: Patient was seen and evaluated. Nails 1-5 right and 1,2,5 left were debrided in length and thickness. Callus to b/l 3rd toe reduced today with dremmel. Small bleed present to right 3rd toe. Band aide applied. Patient was instructed on the continued importance of diabetic foot care along with proper diet and keeping their blood sugar under control to prevent complications. He has neuropathy so it is important he avoid barefoot walking. Patient is to RTC in 3-4 months. Juan Torres DPM Patient presents with: Left Foot - Established Patient, Follow Up Right Foot - Established Patient, Follow Up, Pain Patient presents for follow up nail care and calluses to bilateral feet. States some tenderness to right toes. documented in this encounter [facility] 06-03-2024 Instructions Juan Torres - 06/03/2024 9:47 AM EDT Diabetes Foot Care Instructions When you have diabetes, proper foot care is very important. Poor foot care may lead to amputation of a foot or leg. As a person with diabetes, you are more vulnerable to foot problems, because diabetes can damage your nerves and reduce blood flow to your feet. Here are some diabetes foot care tips to follow: Wash and Dry Your Feet Daily Use mild soaps Use warm water Pat your skin dry; do not rub. Thoroughly dry your feet. After washing, use lotion on your feet to prevent cracking. Do not put lotion between your toes. Examine Your Feet Each Day Check the tops and bottoms of your feet. Have someone else look at your feet if you cannot see them. Check for dry, cracked skin. Look for blisters, cuts, scratches, or other sores. Check for redness, increased warmth, or tenderness when touching any area of your feet. Check for ingrown toenails, corns, and calluses. If you get a blister or sore from your shoes, do not pop it. Apply a bandage and wear a different pair of shoes. Take Care of Your Toenails Cut toenails after bathing, when they are soft. Cut toenails straight across and smooth with a nail file. Avoid cutting into the corners of toes. Do not cut cuticles. If you have neuropathy (or decreased sensation in your feet) a web programmer should always cut your toenails. Be Careful When Exercising Walk and exercise in comfortable shoes. Do not exercise when you have open sores on your feet. Protect Your Feet With Shoes and Socks Never go barefoot. Always protect your feet by wearing shoes or hard-soled slippers or footwear. Avoid shoes with high heels and pointed toes. Avoid shoes that expose your toes or heels (such as open-toed shoes or sandals). These types of shoes increase your risk for injury and potential infections. Try on new footwear with the type of socks you usually wear. Do not wear new shoes for more than an hour at a time. Change your socks daily. Look and feel inside your shoes before putting them on to make sure there are no foreign objects or rough areas. Avoid tight socks. Wear natural-fiber socks (cotton, wool, or a cotton-wool blend). Wear special shoes if your health care provider recommends them. Wear shoes/boots that will protect your feet from various weather conditions (cold, moisture, etc.). Make sure your shoes fit properly. If you have neuropathy (nerve damage), you may not notice that your shoes are too tight. Perform the footwear test described below. Footwear Test Use this simple test to see if your shoes fit correctly: Stand on a piece of paper. (Make sure you are standing and not sitting, because your foot changes shape when you stand.) Trace the outline of your foot. Trace the outline of your shoe. Compare the tracings: Is the shoe too narrow? Is your foot crammed into the shoe? The shoe should be at least 1/2 inch longer than your longest toe and as wide as your foot. Proper Shoe Choices The following types of shoes are best for people with diabetes Closed toes and heels Leather uppers without a seam inside At least 1/2 inch extra space at the end of your longest toe Inside of shoe should be soft with no rough areas Outer sole should be made of stiff material Shoes should be at least as wide as your feet Tips for Foot Care in Diabetes Don't wait to treat a minor foot problem if you have diabetes. Follow your health care provider's guidelines and first aid guidelines. Report foot injuries and infections to your health care provider immediately. Check water temperature with your elbow, not your foot. Do not use a heating pad on your feet. Do not cross your legs. Do not self-treat your corns, calluses, or other foot problems. Go to your health care provider or web programmer to treat these conditions. documented in this encounter [facility] 04-21-2024 Telephone encounter Note Faxed signed Rx to [facility] with OV notation to [phone]. Dede Baxter LPN [facility] 04-21-2024 Miscellaneous Notes Faxed signed Rx to [facility] with OV notation to [phone]. Dede Baxter LPN documented in this encounter [facility] 03-26-2024 Instructions Sharmila Douglas DIRECTOR OF CARDIOLOGY - 03/26/2024 4:36 PM EDT WOUND CARE INSTRUCTIONS WITH DISSOLVABLE SUTURES WOUND CARE: The dressing you have been sent home with is called a pressure dressing. It should remain in place for 48 hours. To care for the wound: Remove pressure dressing after 48 hours. Tip: wet dressing in the shower to assist with adhesive removal. You can remove adhesive with soap, water, or alcohol pad. Clean with gentle soap and water twice daily. Example of gentle soap: Dove, Dial, CeraVe, Cetaphil, Aveeno, or any non-scented bar of soap After wound is thoroughly cleansed and dried, apply a thick layer of Vaseline or Aquaphor to the suture line. Do NOT use polysporin or neosporin on your wound After 72 hours, may leave uncovered as long as it is kept greasy and won t interfere with clothing. You may notice redness along the suture line as the wound heals This is normal- it is your body trying to break down the sutures If redness persists and continues to grow, please call us Signs and symptoms of infection: Redness streaking away from the wound, swelling, new onset of pain, foul smelling drainage, pus, and generalized fevers/chills BLEEDING: Careful attention has been given to your wound to prevent bleeding. The initial dressing you have on is a pressure dressing to also help prevent bleeding. You may notice a small amount of blood on the edges of the dressing the first day; this is normal. In case of persistent bleeding: Apply firm, steady pressure over the dressing with gauze for 20 minutes. If bleeding persists, please apply firm pressure for another 30 minutes. Tip #1: use a timer to record the time of pressure held Tip #2: do not peek at wound until time is completed- this will disrupt clotting time of vessel Tip #3: you may also use ice, as this may aid in slowing any bleeding. 2. If bleeding persists, please call the office using the numbers below. We will instruct you on how to proceed. PAIN: What pain can I expect after surgery? You can expect to have some pain after surgery. This is normal. The pain is typically worse for a day or two after surgery, and quickly begins to get better. Most patients are able to manage their pain after surgery with Fmeq-gye-Gejsbmc (OTC) medications such as Tylenol (acetaminophen) and Motrin/Advil (ibuprofen). If you have a condition that does not allow you to take either of these medications, please notify us immediately. How will I manage my pain? The best strategy for controlling your pain after surgery is around the clock pain control with Tylenol (acetaminophen) and Motrin/Advil (ibuprofen). Alternating these medications with each other allows you to maximize your pain control. In addition to Tylenol and Motrin, you can use ice packs on your incisions for 20 minutes each hour for the first two days after surgery to help reduce your pain and swelling. After the first two days, you may use a heating pad or warm compress on your incisions and surrounding area. If you have received a graft, please *DO NOT* apply ice directly onto the graft site. How will I alternate my regular strength rqld-nyg-maamkox pain medication? You will take a dose of pain medication every four hours while you're awake. Start by taking 200-400 mg of Motrin/Advil (ibuprofen) (1-2 pills of 200 mg) 4 hours later, take 500-1000 mg of Tylenol (acetaminophen) (1-2 pills of 500 mg) 4 hours later, take 200-400 mg of Motrin/Advil (ibuprofen) (1-2 pills of 200 mg) 4 hours later, take 500-1000 mg of Tylenol (acetaminophen) (1-2 pills of 500 mg) 4 hours later, take 200-400 mg of Motrin/Advil (ibuprofen) (1-2 pills of 200 mg) We recommend that you follow this schedule qrhbbf-fpy-cbnre for at least 3 days after surgery, or until you feel that it is no longer needed. As an alternative, you can purchase OTC Advil Dual Action, which is a combined pill containing Acetaminophen 250mg and Ibuprofen 125mg. IMPORTANT: Do not take more than 3000mg of Tylenol (acetaminophen) or 3200mg of Motrin/Advil (ibuprofen) in a 24-hour period. Be aware that some chronic pain medications as well as over the counter cold and flu remedies may also contain acetaminophen. Take this into consideration to avoid exceeding the maximum daily dose. Easy on the alcohol. It is recommended to avoid heavy alcohol intake (more than two standard drinks per day for men and one standard drink for women) after surgery and while taking acetaminophen. Drinking alcohol causes the liver to convert more of the acetaminophen you take into toxic byproducts. Alcohol also acts as a blood thinner and can increase your risk for post-operative bleeding. Continue to take all of your prescribed medication. SWELLING: Swelling after surgery is normal and can peak at 48hr after surgery Suggestion: sleep on 1-2 pillows post procedure for 2-3 days to minimize swelling You can do this if you had a procedure on your face, top of head, ears, jaw, eyes, nose, cheeks, etc. Elevate arms and legs at rest to decrease swelling You can wrap your affected extremity by using JERI wrap, coban wrap, or compression stockings to also minimize swelling Please also use ice to decrease swelling. Can use approximately 20 minutes each hour. NOTES: You may shower regularly after your initial surgery dressing is removed Avoid increasing heart rate or blood pressure for the first 72 hours following surgery (increases bleeding risk) Avoid heavy lifting and strenuous activity for 72 hours following surgery Return to referring automobile service writer for skin checks every 6 months Wear sunscreen PHONE NUMBERS: [facility]: [phone] and ask to be transferred to Dermatology (Sunday-Sunday, 8am-5pm) For emergencies only: On-call number: [phone] and ask for the installation engineer dermatology surgery fellow documented in this encounter [facility] 03-26-2024 History of Present illness Narrative [facility] MICROGRAPHIC OPERATIVE REPORT SERVICE DATE: 03/26/2024 SERVICE TIME: 1400 LOCATION: [facility] [address] [place], [place] [address] REFERRING PROVIDER: Ruth Perla DO PROCEDURE START TIME: 1440 PROCEDURE END TIME: 1630 SURGEON: Dr. Sakshi Rodriguez FELLOW: Fátima Lowery MD LICENSED PRACTICAL NURSE: Sharmila Douglas LPN ANTICOAGULANTS: None IMPLANTED DEVICES: None ANTIBIOTIC PROPHYLAXIS: Not required TRANSPLANT PATIENT: No PHOTOS: Photos taken VERIFICATION OF PROCEDURE: Procedure to be Performed: Mohs Surgery Patient Verified By: Name and Date of Site(s) Confirmed: Patient confirmed site from image in the EMR. Patient used mirror(s) to identify site(s). Patient pointed to site(s). Patient identified site in photo(s) taken during consult or preprocedure then signed photo. Patient verbalized agreement of surgical site(s). Site(s) Marked: Provider marking the site with patient involvement. Provider physically marking the site on or near incision site, with persistent marker, and remains visible once patient prepped. Relevant documentation, images, implants or special equipment present: Yes SIGN IN COMMUNICATION: Completed Time Out: Team Confirms the Correct Patient, Correct Procedure, Correct Site(s) and Site Marked, Correct Position (if applicable). Time: 1324 Affirmation of Time Out: Yes Sign out Discussion: Completed UNIVERSAL PROTOCOL / SAFETY CHECKLIST Procedure to be Performed: Mohs Surgery Sign In: A Moment of CARE was completed. Personnel directly involved with the procedure wore the appropriate PPE (Personal Protective Equipment). No special equipment needed. Patient/Surrogate Stated/Verified: PATIENT VERIFIED(optional for EMERGENT procedures): Patient name, Date of , Relevant allergies, and The intended procedure Time Out Communication: Intended patient and procedure match the source documents. Consent documented and matches the intended procedure. Relevant labs, photos, and/or imaging studies have been reviewed. Correct side/site marked and visible. Medications required for procedure verified. Fire risk assessed and interventions discussed. No implant(s) inserted. Sign Out: SIGN OUT (optional for EMERGENT procedures): All specimen containers correctly labeled. All instruments, equipment, possible retained foreign bodies accounted for. Post-procedure follow-up management communicated and Plan of Care Visit completed when applicable. Sakshi Rodriguez MD LESION #1 Preoperative Diagnosis: BCC Nodular and Superficial of the left jain Tumor Type: Primary Path Report Available at Bedside: Inside pathology report # [id number] Pre-op Size: 0.6 cm - 1 cm, (0.9 X 0.8 cm) Lymphadenopathy: None Indication for Mohs: Type of tumor, Rapid growth, and Age of patient Location: Area H: (Mask Areas of the Face - Includes Central Face, Eyelids, Inner/Outer [place], Eyebrows, Nose, Chin, Lips, Ears, Periauricular Skin and Church) Preparation: Povidone-iodine LAYER A The patient was positioned, prepped with alcohol and draped in the usual manner. Anesthesia was obtained with local infiltration. The clinically apparent tumor was then debulked with a curette. A 1-2 mm rim of tissue was marked circumferentially around the defect. The area thus outlined was excised deep to the subcutis. Hemostasis was achieved with electrocautery. The specimen was oriented, subdivided into 2 sections, chromacoded and submitted for horizontal frozen sections. The patient tolerated the procedure well and no complications were noted. A1-A2 positive. Upon review of the horizontal frozen sections for Layer A, residual basal cell carcinoma nodular infiltrative was identified in pieces A1 and A2. Depth of Invasion:dermis Perineural invasion: No LVI: No . NODULAR BASAL CELL CARCINOMA: Emanating from the epidermis and infiltrating the dermis are irregularly shaped islands of basaloid keratinocytes. The cells have scant cytoplasm and round dark nuclei. Mitotic figures and apoptotic bodies are evident. The nuclei at the periphery of the islands have a palisaded arrangement. The islands are associated with a fibromyxoid stroma and there is cleft formation between some of the islands and stroma. and INFILTRATIVE BASAL CELL CARCINOMA: Irregularly shaped cords and strands of basaloid keratinocytes infiltrate the dermis with a spiky growth pattern. The cells have scant cytoplasm and round dark nuclei. Mitotic figures and apoptotic bodies are evident. The nuclei at the periphery of the islands have a palisaded arrangement. The islands are associated with a fibromyxoid stroma and there is cleft formation between some of the islands and stroma. LAYER B A 1-2 mm rim of tissue was marked to encompass the positive margins noted in the frozen section. The area thus outlined was excised deep to the subcutis. Hemostasis was achieved with electrocautery. The specimen was oriented, subdivided into 2 sections, chromacoded and submitted for horizontal frozen sections. The patient tolerated the procedure well and no complications were noted. B1-B2 negative. Upon review of the horizontal frozen sections for Layer B, no residual tumor was identified . CLOSURE Rationale for Primary Closure: Given the location and size of the defect and in order to minimize the pain, bleeding, and infection associated with second intention healing, the wound was closed with a primary linear closure. Diagnosis: Surgical defect secondary to Mohs micrographic surgery on a Primary tumor type from [facility] jain (location of tumor). Post-op Defect Size: 1.5 x 1.6 cm INTERMEDIATE CLOSURE: Requiring skin and subcutaneous fat. The beveled edge of the Mohs defect was surgically removed. The wound edges were undermined in all directions to decrease the tension of the wound and facilitate skin edge apposition. Meticulous hemostasis was achieved with electrocautery. Redundant standing cones were removed to allow the wound to be closed without distortion. The deep tissue were opposed with 4-0 Absorbable Absorbant sutures. The epidermal edges were opposed with 5-0 Absorbable sutures. The surgical site was cleansed with saline and covered with a bandage as below. The patient tolerated the procedure well and no complications were noted. Final Size: Linear closure - 4 cm LOCAL ANESTHETIC: 9 cc 1% Lidocaine HCl with Epinephrine 1:100,000 ESTIMATED BLOOD LOSS: Less Than Minimal Unless Noted Here. COMPLICATIONS: None, patient tolerated procedure well. TOTAL OPERATIVE TIME: 130 Minutes POST OP MEDS: Tylenol 650 mg every 4-6 hours as needed for pain relief POST OP CARE: Pressure Dressing applied consisting of Contact Layer: Petrolatum ointment and Non stick Telfa pad Absorbent Layer: Gauze pad and ABD pad Outer Layer: Hypafix MOHS POST OP INSTRUCTIONS GIVEN WITH VERBAL UNDERSTANDING: Yes PATIENT DISCHARGED TO LUNCH COOK/NAME: Grand Daughter FOLLOW UP:every 6 months for full body skin exam The documentation for this note was completed by Sharmila Douglas LPN acting as scribe for Sakshi Cheng MD. March 26, 2024 4:38 PM. Fellow took the layer(s), under direct supervision and the remainder of the procedure was performed by the primary surgeon/proceduralist with assistance. I served as the fellow in this case under supervision of the attending surgeon. I prepped the patient and interpreted the slides. I took the Mohs A layer Fátima Lowery MD Micrographic Surgery & Dermatologic Oncology Fellow I have seen and examined Jg Chahal. I have discussed the case and the management of this patient's care with the Fellow. I also have reviewed and agree with the assessment and plan as stated above and agree with all of its relevant components. I was present for and supervised the procedures as documented above by the Fellow. documented in this encounter [facility] 03-13-2024 Telephone encounter Note Patient aware. [facility] 03-13-2024 Miscellaneous Notes Patient aware. Patient is scheduled for left L4-5 lumbar trans foraminal epidural steroid injection on March 18, 2024. Patient takes Eliqus [address] Renan Bowling asking for consent to withhold their anticoagulant. Please advise. documented in this encounter [facility] 03-11-2024 Telephone encounter Note Patient is scheduled for left L4-5 lumbar trans foraminal epidural steroid injection on March 18, 2024. Patient takes Eliqus [address] Renan Bowling asking for consent to withhold their anticoagulant. Please advise. [facility] 02-28-2024 Miscellaneous Notes Procedure: Left L4-5 TFESI Procedure Date: 03/18/2024 Cardiac Clearance: Eliquis, ASA 81mg Per patient, Eliquis managed by his journalism teacher, Dr. Araiza. Cardiac Clearance letter generated and faxed to Dr. Argueta. Awaiting determination. documented in this encounter [facility] 02-25-2024 Miscellaneous Notes MyChart message unread. Additional MyChart message sent. Injection order signed off Dr. Bowling reviewed patient's lumbar MRI. Lumbar MRI shows: Multi-level degenerative disc disease (wear and tear) Foraminal stenosis (narrowing in the part of the spine causing nerve compression) at L4-5, L5-S1 Osteophytes (bone spurs) at L4-5, L5-S1 Dr. Bowling recommends a left L4-5 lumbar transforaminal epidural steroid injection. MyChart message sent. Injection order pended for provider review. Routing to provider. documented in this encounter [facility] 02-21-2024 History of Present illness Narrative [facility] NURSE - CHART REVIEW Provider NOEL [facility] Action 06/24/2023 patient with cardiac history presented to ED reporting episode of chest pain, became nauseous, short of breath, and diaphoretic, nitroglycerine relieved pain and symptoms improved. Anticoagulated and history of A fib. Documentation of encounter did not reveal any acute processes. Transitioned home with instruction to follow up with journalism teacher and PCP. Pt identified by name and . Reason for Review: Payor request Patient Attributed To: QAE Payer: LEON Chart Review For: Utilization: ED Total Patient High CostTotal Patient High Cost {HIGH COST:155013) Quality measure review Payor request for assistance Action Taken: No action needed Karma Navarro RN February 21, 2024 10:58 AM documented in this encounter [facility] 02-19-2024 Miscellaneous Notes Patient contacted and agrees to MOHS procedure. ----- Message from Ruth Perla DO sent at 02/19/2024 12:16 PM EDT ----- A. Skin, left jain, shave biopsy: - Basal cell carcinoma, superficial and nodular types- Mohs documented in this encounter [facility] 02-19-2024 History of Present illness Narrative Radiology Service Progress Note PATIENT NAME: Jg Chahal DATE OF SERVICE: February 19, 2024 TIME: 8:00 AM PATIENT IDENTITY VERIFICATION COMPLETED USING TWO (2) IDENTIFIERS: Name and Date of confirmed by patient verbally. FALL SCREENING: Has the patient had 2 falls in the last year or 1 fall with injury or currently using an Ambulatory Assistive Device (Walker, Cane, Wheelchair, Crutches, etc.)? No PATIENT GENDER DATA: Male PATIENT RELEVANT IMPLANT DATA REVIEWED: Yes PATIENT PRESENTS WITH AN IMPLANTABLE OR ATTACHED LIBRARY SPECIALIST: No RADIOLOGY DEPARTMENT: MR; Exam(s) Completed: Spine: Lumbar spine PERIPHERAL IV DATA: Not applicable SIGNED BY: RT Lebron(Magali) February 19, 2024 8:00 AM documented in this encounter [facility] 02-13-2024 History of Present illness Narrative [facility] Date: February 13, 2024 - 9:43 AM Chief Complaint: back and leg pain SUBJECTIVE: Mr. Chahal presents to the [facility] for a follow up appointment regarding back and leg pain. He states that since the last visit symptoms have been persistent. The pain is located in the left lumbar region and gluteal region and radiates to the left lower extremity along the posterior aspect to the level of the posterior thigh. // The pain is described as aching and is rated as 6 on a scale of 0-10. Currently, the symptoms do not interfere with activities of daily living (ADLs).The pain is exacerbated by standing. The pain is mitigated by sitting. REVIEW OF SYSTEMS: Constitutional: (-) Fever (-) Night Sweats (-) Weight Gain (-) Weight Loss (-) Fatigue Cardiovascular: (-) Chest Pain (-) Palpitations (+) Lightheadedness (-) Swelling of Ankles (-) Hx Heart Surgery Respiratory: (-) Shortness of Breath (-) Cough (-) Wheezing (-) Snoring Gastrointestinal: (-) Incontinence (-) Abdominal Pain (-) Diarrhea (-) Constipation (-) Nausea/Vomiting (-) Heart Burn Endocrine: (-) Thyroid Disorder (-) Diabetes Hematologic: (-) Prolonged Bleeding (+) Easy Bruising Genitourinary: (-) Incontinence (-) Frequency (-) Urinary Urgency Skin: (-) Rashes (-) Itching (-) Other Lesions Neurologic: (-) Headache (-) Double Vision (-) Confusion (-) Paralysis Psychiatric: (-) Depression (-) Anxiety (-) Delusions (-) Hallucinations (-) Personal History of Alcohol or Substance Abuse (-) Family History of Alcohol or Substance Abuse PAST MEDICAL HISTORY Diagnosis Date Abdominal pain, right lower quadrant 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 Dr. Tee Clemons, Dermatology Basal cell carcinoma (BCC) of skin of face Mohs 04/2021 Cervical spondylosis 09/25/2022 Coronary atherosclerosis of unspecified type of vessel, [place] or graft 01/22/2006 moderate Diverticulosis of colon (without mention of hemorrhage) 07/18/2005 Dyslipidemia Dyspepsia and other specified disorders of function of stomach 07/18/2005 Chronic gastritis, Dyspepsia. Gastric ulcer, unspecified as acute or chronic, without mention of hemorrhage or perforation, with obstruction Generalized osteoarthrosis, unspecified site 07/18/2005 H. pylori infection 05/30/2011 HTN (hypertension) Hypertensive 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 4 chronic kidney disease, or unspecified chronic kidney disease 07/18/2005 Impaired fasting glucose 07/18/2005 Lipoprotein deficiencies 07/18/2005 Low HDL. Lumbago 08/26/2008 Dr. Odin Coon, [facility]. Rotator cuff tear, right 10/21/2012 Salmonella enteritis 08/2010 Type II or unspecified type diabetes mellitus without mention of complication, not stated as uncontrolled 07/08/2007 Unspecified essential hypertension 07/18/2005 PAST SURGICAL HISTORY Procedure Laterality Date ARTHROSCOPY KNEE DIAGNOSTIC W/WO SYNOVIAL BX SPX 11/2003 Arthroscopy, knee ARTHRP ACETBLR/PROX FEM PROSTC AGRFT/ALGRFT Right 08/07/2016 Hip replacement, total ARTHRP KNE CONDYLE&PLATU MEDIAL&LAT COMPARTMENTS 2002 Knee replacement, total, left ARTHRP KNE CONDYLE&PLATU MEDIAL&LAT COMPARTMENTS Left 10/01/2017 revision L TKA, [facility] CC ABLATION SVT 04/06/2017 EP study, ablation for A.fib. COLONOSCOPY FLX DX W/COLLJ SPEC WHEN PFRMD 12/24/2002 Colonoscopy COLONOSCOPY FLX DX W/COLLJ SPEC WHEN PFRMD 05/11/2011 Colonoscopy ESOPHAGOGASTRODUODENOSCOPY TRANSORAL DIAGNOSTIC 03/18/2007 EGD ESOPHAGOGASTRODUODENOSCOPY TRANSORAL DIAGNOSTIC 06/11/2007 EGD ESOPHAGOGASTRODUODENOSCOPY TRANSORAL DIAGNOSTIC 05/11/2011 EGD LOPEZ W/O FACETEC FORAMOT/DSC 1/2 VRT SGM CRV 2000 Laminectomy, cervical LAMINECTOMY W/O FFD > 2 VERT SEG LUMBAR 11/05/2008 lumbar fusion LAMINOTOMY (HEMILAMINECTOMY), WITH DECOMPRESSION OF NERVE ROOT(S) Bilateral 05/02/2019 Revision hemilaminectomies L2,L3,L4-L5 LEFT HEART CATH,PERCUTANEOUS 01/22/2006 Cardiac cath, L heart LEFT HEART CATH,PERCUTANEOUS 05/31/2011 Cardiac cath, L heart LEFT HEART CATH,PERCUTANEOUS 11/27/2011 Cardiac cath, L heart LEFT HEART CATH,PERCUTANEOUS 11/27/2013 Cardiac cath, L heart NEUROPLASTY &/TRANSPOS MEDIAN NRV CARPAL TUNNE 1995 Carpal tunnel decomp R/L OPEN REPAIR OF ROTATOR CUFF ACUTE 1996 Rotator cuff repair, bilateral OPEN REPAIR OF ROTATOR CUFF CHRONIC Left 12/28/2014 Left shoulder open rotator cuff repair and Sub Ac decompression SHX TOTAL SHOULDER REVERSE Left 02/01/2022 Left reverse total shoulder arthroplasty TRANSCATH STENT INIT VESSEL,PERCUT 08/26/2009 Transcath stent init vessel percut TRANSCATH STENT INIT VESSEL,PERCUT 11/16/2010 Transcath stent init vessel percut ALLERGIES Allergen Reactions Adhesive Hives Codeine HEART PALPITATIONS Darvocet-N 100 [Pro* Intolerance Heart racing Latex Hives Meperidine Hcl Current Outpatient Medications Medication Sig metoprolol succinate ER (TOPROL XL) 25 mg 24 hr tablet Take 1 tablet by mouth once daily. losartan (COZAAR) 50 mg tablet Take 1 tablet by mouth once daily. amLODIPine (NORVASC) 2.5 mg tablet Take 1 tablet by mouth once daily. dofetilide (TIKOSYN) 250 mcg capsule Take 1 capsule by mouth two times a day. pantoprazole DR (PROTONIX) 40 mg tablet TAKE ONE TABLET BY MOUTH DAILY ON EMPTY STOMACH ONE-HALF HOUR BEFORE BREAKFAST apixaban (ELIQUIS) 5 mg tab(s) Take 1 tablet by mouth two times a day. atorvastatin (LIPITOR) 40 mg tablet Take 1 tablet by mouth once daily. clotrimazole-betamethasone (LOTRISONE) cream Apply to affected area twice daily. APPLY TO AFFECTED AREA zolpidem (AMBIEN) 5 mg tablet Take 1 tablet by mouth at bedtime as needed for sedation for up to 14 days. nitroglycerin sublingual (NITROSTAT) 0.4 mg SL tablet Dissolve 1 tablet under the tongue every 5 minutes as needed for chest pain. blood sugar diagnostic (BLOOD GLUCOSE TEST) test strip Test blood sugar(s) 1 times daily. Dx: Type 2 DM - Controlled E11.42 Insulin: No TENS unit and electrodes cmpk Us as instructed. melatonin 3 mg tablet Take 1 tablet by mouth daily at bedtime. Lancets lancets Test blood sugar(s) 1 times daily. Dx: Type 2 DM - Controlled E11.42 Insulin: No CPAP Patient requesting new DME. Currently has a PAP device (2016 -- may be due for new device). Please fit with a Wisp (currently with Dream wisp and causing discomfort on top of head). Lif[employer] supplies. Amoxicillin 500 mg tablet Take 4 tablets by mouth as needed (1 hour before the procedure). (Patient not taking: Reported on 02/07/2024) docusate sodium (COLACE) 100 mg capsule AT BEDTIME magnesium oxide (MAG-OX) 400 mg tablet Take 1 tablet by mouth once daily. Cholecalciferol, Vitamin D3, 1,000 unit cap Take 1 capsule by mouth once daily. vitamin b complex (B COMPLETE) ORAL Tab Take 1 tablet by mouth once daily. Current Facility-Administered Medications Medication Dose Route Frequency perflutren lipid microspheres 1.3 mL in NaCl (PF) 0.9% 10 mL injection (DEFINITY) INTRAVENOUS DIRECTED PRN sodium chloride 0.9 % (flush) 10 mL (BD POSIFLUSH) 10 mL INTRAVENOUS DIRECTED PRN I have reviewed the nurses notes and I am aware of the family/social history. Since the last evaluation the medical history has not changed. PDMP website checked and validated. All prescriptions have been APPROPRIATELY filled. No suspicious activity was identified. 02/13/2024 by Renan Bowling MD Narcotic Agreement reviewed and signed?: N/A on February 13, 2024 Urine Panel: No results found for: UQCANN, UQBNZL, YFN7MXZ, UQAMPH, UQMAMP, UQBUPRE, UQNORBUP, UQMTHD, UQEDDP, UQTRAM, UQDTRM, UQFNTL, UQNFTL, UQCODE, UQMORP, UQDCDN, UQHCOD, UQOXYC, UQHMOR, UQOXYM, UQCREA, UQPH, UQSPGR, UQOXID, UQSPQ The pain panel was N/A PHYSICAL EXAMINATION: Performed in conjunction with observation. The patient was alert and oriented x3. The patient was in no acute distress. Lungs: Clear, negative for dyspnea or distress. CVR: Regular Rate. Negative for SOB or peripheral edema. Neck: Supple. The range of motion was intact. Negative focal tenderness Back: Range of motion of the trunk was limited with extension. Bilateral lumbosacral tenderness worse on the left side. SLR: Positive on the left at less than 75 degrees elevation. Facet Loading: Positive with axial loading and extension. SI joint: Negative PSIS tenderness. Extremities: no reported edema or erythema. Motor: Negative focal deficits Sensory: Intact to light touch and sharp throughout the lower extremities Gait: Slow to stand with flexed posture. Otherwise, within normal limits ASSESSMENT: Low back pain with sciatica, sciatica laterality unspecified, unspecified back pain laterality, unspecified chronicity (primary encounter diagnosis) PLAN: Prior available imaging studies were reviewed. Findings were discussed. Injection history was reviewed. Medication use and compliance were reviewed. 1. The patient has prior history of lumbar surgery with posterior instrumentation fusion L5-S1 level. The patient is having worsening back pain with left radicular pain symptoms. Due to pain, his activity level is diminished significantly. Recommend MRI evaluation of his lumbar spine. 2. Interventional procedure options discussed. None at this time 3. No new medication was prescribed. 4. Encouraged regular home exercise program. 5) F/U in we will contact with results of the imaging studies and we will provide further recommendation at that time. The treatment plan was discussed with the patient during the office visit and they verbalized an understanding of it. I have discussed and confirmed the above treatment plan with the patient and I have reviewed the nurses notes and I am aware of the family/social history. I have confirmed ROS findings. Renan Bowling MD cc: Dr. Galindo Yuan MD cc: No referring provider defined for this encounter. Phone: N/A Fax: Results of consultation to be transmitted via electronic medical record for those providers who practice within [facility] or with access to [employer] via [employer] Connect, or via letter. 1. This document has been created with the use of voice recognition technology. It may contain inaccuracies: (e.g. misspellings, inaccurate syntax or word sense) that have escaped review. 2. The nurse practitioner, nursing staff and medical assistants are a major part of YOUR TREATMENT TEAM and will be handling your phone calls and inquiries, if any. Unless explicitly told otherwise at the time of your office visit, your study results and ensuing treatment plans will be discussed during your follow-up appointment. If you do not have a follow-up appointment and wish to discuss any issues, please set up an appointment. 3. It is my practice to not fill disability or any other insurance-related forms/documentation. All of the office notes, study results, and other pertinent documentation generated as part of your evaluation will be available to you and to your Primary Care Physician (PCP). Use of this material to complete such forms will be at the discretion of your PCP/referring physician. documented in this encounter [facility] 02-07-2024 Instructions Juan Torres - 02/07/2024 8:24 AM EDT Your wounds appear to be healing nicely Continue with soaking and local wound care until the entire toe heals You have small scabs that may fall off. If they do, dress with topical antibiotic documented in this encounter [facility] 02-07-2024 History of Present illness Narrative FOLLOW UP PODIATRIC OFFICE VISIT Chief Complaint: This 83 year old who presents for follow up:total nail matrixectomy of left 3rd and 4th toe Patient presents for follow-up left 3rd and 4th toe Patient denies any redness or drainage Feeling very well Places padding between the 3rd and 2nd toe to avoid rubbing. PAIN EVALUATION No data found in the last 1 encounters. Hemoglobin A1C Date Value Ref Range Status 01/01/2024 5.8 (H) 4.3 - 5.6 % Final Comment: [place] [employer] guidelines indicate that patients with HgbA1c in the range 5.7-6.4% are at increased risk for development of diabetes, and intervention by lifestyle modification may be beneficial. HgbA1c greater or equal to 6.5% is considered diagnostic of diabetes. PCP: Galindo Yuan MD PAST MEDICAL HISTORY Diagnosis Date Abdominal pain, right lower quadrant 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 Dr. Tee Clemons, Dermatology Basal cell carcinoma (BCC) of skin of face Mohs 04/2021 Cervical spondylosis 09/25/2022 Coronary atherosclerosis of unspecified type of vessel, [place] or graft 01/22/2006 moderate Diverticulosis of colon (without mention of hemorrhage) 07/18/2005 Dyslipidemia Dyspepsia and other specified disorders of function of stomach 07/18/2005 Chronic gastritis, Dyspepsia. Gastric ulcer, unspecified as acute or chronic, without mention of hemorrhage or perforation, with obstruction Generalized osteoarthrosis, unspecified site 07/18/2005 H. pylori infection 05/30/2011 HTN (hypertension) Hypertensive 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 4 chronic kidney disease, or unspecified chronic kidney disease 07/18/2005 Impaired fasting glucose 07/18/2005 Lipoprotein deficiencies 07/18/2005 Low HDL. Lumbago 08/26/2008 Dr. Odin Coon, [facility]. Rotator cuff tear, right 10/21/2012 Salmonella enteritis 08/2010 Type II or unspecified type diabetes mellitus without mention of complication, not stated as uncontrolled 07/08/2007 Unspecified essential hypertension 07/18/2005 Current Outpatient Medications Medication Sig metoprolol succinate ER (TOPROL XL) 25 mg 24 hr tablet Take 1 tablet by mouth once daily. losartan (COZAAR) 50 mg tablet Take 1 tablet by mouth once daily. amLODIPine (NORVASC) 2.5 mg tablet Take 1 tablet by mouth once daily. dofetilide (TIKOSYN) 250 mcg capsule Take 1 capsule by mouth two times a day. pantoprazole DR (PROTONIX) 40 mg tablet TAKE ONE TABLET BY MOUTH DAILY ON EMPTY STOMACH ONE-HALF HOUR BEFORE BREAKFAST apixaban (ELIQUIS) 5 mg tab(s) Take 1 tablet by mouth two times a day. atorvastatin (LIPITOR) 40 mg tablet Take 1 tablet by mouth once daily. clotrimazole-betamethasone (LOTRISONE) cream Apply to affected area twice daily. APPLY TO AFFECTED AREA nitroglycerin sublingual (NITROSTAT) 0.4 mg SL tablet Dissolve 1 tablet under the tongue every 5 minutes as needed for chest pain. blood sugar diagnostic (BLOOD GLUCOSE TEST) test strip Test blood sugar(s) 1 times daily. Dx: Type 2 DM - Controlled E11.42 Insulin: No TENS unit and electrodes cmpk Us as instructed. melatonin 3 mg tablet Take 1 tablet by mouth daily at bedtime. Lancets lancets Test blood sugar(s) 1 times daily. Dx: Type 2 DM - Controlled E11.42 Insulin: No CPAP Patient requesting new DME. Currently has a PAP device (2015 -- may be due for new device). Please fit with a Wisp (currently with Dream wisp and causing discomfort on top of head). Lifetime supplies. docusate sodium (COLACE) 100 mg capsule AT BEDTIME magnesium oxide (MAG-OX) 400 mg tablet Take 1 tablet by mouth once daily. Cholecalciferol, Vitamin D3, 1,000 unit cap Take 1 capsule by mouth once daily. vitamin b complex (B COMPLETE) ORAL Tab Take 1 tablet by mouth once daily. zolpidem (AMBIEN) 5 mg tablet Take 1 tablet by mouth at bedtime as needed for sedation for up to 14 days. Amoxicillin 500 mg tablet Take 4 tablets by mouth as needed (1 hour before the procedure). (Patient not taking: Reported on 02/07/2024) Current Facility-Administered Medications Medication Dose Route Frequency perflutren lipid microspheres 1.3 mL in NaCl (PF) 0.9% 10 mL injection (DEFINITY) INTRAVENOUS DIRECTED PRN sodium chloride 0.9 % (flush) 10 mL (BD POSIFLUSH) 10 mL INTRAVENOUS DIRECTED PRN ALLERGIES Allergen Reactions Adhesive Hives Codeine HEART PALPITATIONS Darvocet-N 100 [Pro* Intolerance Heart racing Latex Hives Meperidine Hcl PAST SURGICAL HISTORY Procedure Laterality Date ARTHROSCOPY KNEE DIAGNOSTIC W/WO SYNOVIAL BX SPX 11/2003 Arthroscopy, knee ARTHRP ACETBLR/PROX FEM PROSTC AGRFT/ALGRFT Right 08/07/2016 Hip replacement, total ARTHRP KNE CONDYLE&PLATU MEDIAL&LAT COMPARTMENTS 2002 Knee replacement, total, left ARTHRP KNE CONDYLE&PLATU MEDIAL&LAT COMPARTMENTS Left 10/01/2017 revision L TKA, [facility] CC ABLATION SVT 04/06/2017 EP study, ablation for A.fib. COLONOSCOPY FLX DX W/COLLJ SPEC WHEN PFRMD 12/24/2002 Colonoscopy COLONOSCOPY FLX DX W/COLLJ SPEC WHEN PFRMD 05/11/2011 Colonoscopy ESOPHAGOGASTRODUODENOSCOPY TRANSORAL DIAGNOSTIC 03/18/2007 EGD ESOPHAGOGASTRODUODENOSCOPY TRANSORAL DIAGNOSTIC 06/11/2007 EGD ESOPHAGOGASTRODUODENOSCOPY TRANSORAL DIAGNOSTIC 05/11/2011 EGD LOPEZ W/O FACETEC FORAMOT/DSC 1/2 VRT SGM CRV 2000 Laminectomy, cervical LAMINECTOMY W/O FFD > 2 VERT SEG LUMBAR 11/05/2008 lumbar fusion LAMINOTOMY (HEMILAMINECTOMY), WITH DECOMPRESSION OF NERVE ROOT(S) Bilateral 05/02/2019 Revision hemilaminectomies L2,L3,L4-L5 LEFT HEART CATH,PERCUTANEOUS 01/22/2006 Cardiac cath, L heart LEFT HEART CATH,PERCUTANEOUS 05/31/2011 Cardiac cath, L heart LEFT HEART CATH,PERCUTANEOUS 11/27/2011 Cardiac cath, L heart LEFT HEART CATH,PERCUTANEOUS 11/27/2013 Cardiac cath, L heart NEUROPLASTY &/TRANSPOS MEDIAN NRV CARPAL TUNNE 1995 Carpal tunnel decomp R/L OPEN REPAIR OF ROTATOR CUFF ACUTE 1996 Rotator cuff repair, bilateral OPEN REPAIR OF ROTATOR CUFF CHRONIC Left 12/28/2014 Left shoulder open rotator cuff repair and Sub Ac decompression SHX TOTAL SHOULDER REVERSE Left 02/01/2022 Left reverse total shoulder arthroplasty TRANSCATH STENT INIT VESSEL,PERCUT 08/26/2009 Transcath stent init vessel percut TRANSCATH STENT INIT VESSEL,PERCUT 11/16/2010 Transcath stent init vessel percut Physical Exam: OBJECTIVE: Constitutional: Pt is a well developed 83 year old male who is alert, oriented, cooperative and in no apparent distress. Eyes: Following during examination. No redness or drainage. Respiratory: RR normal and nonlabored. Even breathing. No evidence of distress. Psychology: Patient is engaged during conversation. Normal affect and mood. Does not appear depressed or anxious. NVSI unchanged from previous visit. Dermatological: Left 3rd and 4th toe with nail bed intact, healing as expected. No signs of infection. ASSESSMENT: (S91.109A) Open wound of toe, initial encounter (primary encounter diagnosis) PLAN: Wounds of left 3rd and 4th toe appear to be healing Continue with local wound care utnil the toe is completely healed Patient very pleased with progress Juan Torres DPM Patient presents with: Left Foot - Established Patient, Follow Up, Post Op Patient presents for follow up matrixectomy L 3rd and 4th toe done 01/24/24 documented in this encounter [facility] 02-04-2024 Miscellaneous Notes Phone call placed to [place] advised patient needs mask supplies. Domenico Ambrosio will reach out to the patient. Dede Baxter LPN documented in this encounter [facility] 02-04-2024 History of Present illness Narrative Patient presents for EKG per Dr Sakshi Nunez. Denies any problems at this time. Tolerated procedure well. Sussy Ng LPN documented in this encounter [facility] 01-30-2024 History of Present illness Narrative ACM KIMBERLY RN Patient identified by name and date of . Reason for review or outreach: Chart Review [facility] Emergency Department Utilization Utilization in past 6 months: # Occurrences Date Last Occurrence Hospital Admission Hospital Observation ED 2 10/12/23 SNF / Acute Rehab / LTAC ED DIAGNOSES/REASON(S) FOR ED USE: Upper Resp Infection OTHER FINDINGS/SUMMARY: No further action needed Patient Attributed To: E Payer: Leon JARRETT Action Taken: No action needed Contact made with patient: No, Chart review only. Signature: Lety Seth RN documented in this encounter [facility] 01-18-2024 Miscellaneous Notes Per secure staff message: Wondering if he might benefit from lumbar spine injections as pain getting worse. You previously saw for cervical spine injections bu never worked on the lumbar spine. Thank you. Routing to clerical pool for appointment scheduling. Appointment: Lumbar Pain w/Dr. Bowling documented in this encounter [facility] 01-18-2024 Miscellaneous Notes Faxed Rx mask, tubing to [facility] 01/18/2024 to [phone]. Dede Baxter LPN documented in this encounter [facility] 01-18-2024 History of Present illness Narrative ESTABLISHED PATIENT VISIT CHIEF COMPLAINT: Follow Up HISTORY OF PRESENT ILLNESS: Jg Chahal is a 83 year old male, BMI 32.89 kg/m2 with a PMH significant for and per last office visit of 07/13/23: 1. ETHAN on CPAP - ICD9: 327.23, V46.8, ICD10: G47.33 (primary diagnosis) Subjectively doing well and both subjectively and objectively compliant. Download shows elevated leak, but pt denies. Thus no changes in PAP settings. Encouraged continued compliance. Reminded to clean and replace equipment regularly. Advised pt not to drive or operate heavy machinery when sleepy. Note recent fatigue appears directly related to recent episode of afib with pt having cards follow up soon. 2. Parasomnia, unspecified type - ICD9: 307.47, ICD10: G47.50 Stable with no symptoms so long as taking melatonin 3-5mg nightly. No change in treatment. 3. Cervicalgia - ICD9: 723.1, ICD10: M54.2 Stable. Encouraged follow up with Dr. Bowling. 4. Lightheadedness - ICD9: 780.4, ICD10: R42 Not vertigo. Positional in nature. Could not reproduce in office and not orthostatic. However question if Norvasc contributing and would ask if cardiology could consider alternative med. PAP data download up to 01/16/24 shows 88/90 days use for avg of 7 hours and 52 minutes. PAP set at 5-12 cmH2O. AHI is 0.7. 95% leak is 12.8 LPM. 95% pressure is 11.7 cmH2O. Patient now using FFM. States cannot wear false teeth with mask as the mask pushes and cuts into the gum line with teeth in. Unclear exactly what mask pt has. Also has issue of pulling tubing and mask apart. No other issues with PAP. Tolerating pressure. Sleep is good. Goes to bed about 630PM and wakes at MN. Sleep schedule is based on pt's prior work schedule. No parasomnias. Still taking melatonin at night. Neck pain stable. However, did have a fall last fall in which he injured his right upper ext. States surgeons have told him he has a torn rotator cuff. Also with worsening lower back pain (chronic condition for which he has been seen by surgeon) - if stands to long the lower back aches, if sits down it resolves. Encouraged follow up with Dr. Bowling. REVIEW OF SYSTEMS GENERAL:No weight loss, malaise or fevers. HEENT:Negative for frequent or significant headaches, No changes in hearing or vision, no nose bleeds or other nasal problems NECK:Negative for lumps, goiter, pain and significant neck swelling RESPIRATORY: Negative for cough, wheezing or shortness of breath. CARDIOVASCULAR: Negative for chest pain, leg swelling or palpitations. GASTROINTESTINAL: Negative for abdominal discomfort, blood in stools or black stools or change in bowel habits GENITOURINARY: No history of dysuria, frequency or incontinence MUSCULOSKELETAL: See HPI NEUROLOGIC:See HPI SKIN:Negative for lesions, rash, and itching. LAB/IMAGING: Those performed since patient's last visit have been reviewed. WBC (k/uL) Date Value 01/01/2024 6.26 RBC (m/uL) Date Value 01/01/2024 4.62 Hemoglobin (g/dL) Date Value 01/01/2024 14.1 Hematocrit (%) Date Value 01/01/2024 42.0 MCV (fL) Date Value 01/01/2024 90.9 MCH (pg) Date Value 01/01/2024 30.5 MCHC (g/dL) Date Value 01/01/2024 33.6 RDW-CV (%) Date Value 01/01/2024 14.7 Platelet Count (k/uL) Date Value 01/01/2024 217 MPV (fL) Date Value 01/01/2024 10.2 Glucose (mg/dL) Date Value 01/01/2024 102 (H) BUN (mg/dL) Date Value 01/01/2024 14 Creatinine (mg/dL) Date Value 01/01/2024 1.22 Sodium (mmol/L) Date Value 01/01/2024 141 Potassium (mmol/L) Date Value 01/01/2024 4.4 Chloride (mmol/L) Date Value 01/01/2024 106 (H) CO2 (mmol/L) Date Value 01/01/2024 26 Protein, Total (g/dL) Date Value 01/01/2024 6.6 Albumin (g/dL) Date Value 01/01/2024 4.3 Calcium, Total (mg/dL) Date Value 01/01/2024 9.5 Alkaline Phosphatase (U/L) Date Value 01/01/2024 121 (H) Bilirubin, Total (mg/dL) Date Value 01/01/2024 1.0 AST (U/L) Date Value 01/01/2024 15 ALT (U/L) Date Value 01/01/2024 12 Rheumatoid Factor (IU/mL) Date Value 06/21/2005 8 MEDICATIONS: metoprolol succinate ER (TOPROL XL) 25 mg 24 hr tablet^Take 1 tablet by mouth once daily.^Disp: 90 tablet^Rfl: 3 losartan (COZAAR) 50 mg tablet^Take 1 tablet by mouth once daily.^Disp: 90 tablet^Rfl: 3 amLODIPine (NORVASC) 2.5 mg tablet^Take 1 tablet by mouth once daily.^Disp: 90 tablet^Rfl: 3 dofetilide (TIKOSYN) 250 mcg capsule^Take 1 capsule by mouth two times a day.^Disp: 180 capsule^Rfl: [address] (PROTONIX) 40 mg tablet^TAKE ONE TABLET BY MOUTH DAILY ON EMPTY STOMACH ONE-HALF HOUR BEFORE BREAKFAST^Disp: 90 tablet^Rfl: 3 apixaban (ELIQUIS) 5 mg tab(s)^Take 1 tablet by mouth two times a day.^Disp: 180 tablet^Rfl: 3 atorvastatin (LIPITOR) 40 mg tablet^Take 1 tablet by mouth once daily.^Disp: 90 tablet^Rfl: 3 clotrimazole-betamethasone (LOTRISONE) cream^Apply to affected area twice daily. APPLY TO AFFECTED AREA^Disp: 45 g^Rfl: 2 nitroglycerin sublingual (NITROSTAT) 0.4 mg SL tablet^Dissolve 1 tablet under the tongue every 5 minutes as needed for chest pain.^Disp: 26 tablet^Rfl: 2 blood sugar diagnostic (BLOOD GLUCOSE TEST) test strip^Test blood sugar(s) 1 times daily. Dx: Type 2 DM - Controlled E11.42 Insulin: No^Disp: 50 Strip^Rfl: 5 TENS unit and electrodes cmpk^Us as instructed.^Disp: 1 Kit^Rfl: 0 melatonin 3 mg tablet^Take 1 tablet by mouth daily at bedtime.^Disp: 90 tablet^Rfl: 3 Lancets lancets^Test blood sugar(s) 1 times daily. Dx: Type 2 DM - Controlled E11.42 Insulin: No^Disp: 100 Each^Rfl: 3 CPAP^Patient requesting new DME. Currently has a PAP device (2016 -- may be due for new device). Please fit with a Wisp (currently with Dream wisp and causing discomfort on top of head). Lifetime supplies.^Disp: 1 Each^Rfl: 9999 Amoxicillin 500 mg tablet^Take 4 tablets by mouth as needed (1 hour before the procedure).^Disp: 4 tablet^Rfl: 0 docusate sodium (COLACE) 100 mg capsule^AT BEDTIME^Disp: ^Rfl: magnesium oxide (MAG-OX) 400 mg tablet^Take 1 tablet by mouth once daily.^Disp: 90 tablet^Rfl: 3 Cholecalciferol, Vitamin D3, 1,000 unit cap^Take 1 capsule by mouth once daily.^Disp: ^Rfl: 0 vitamin b complex (B COMPLETE) ORAL Tab^Take 1 tablet by mouth once daily.^Disp: 100 tablet^Rfl: 4 zolpidem (AMBIEN) 5 mg tablet^Take 1 tablet by mouth at bedtime as needed for sedation for up to 14 days.^Disp: 14 tablet^Rfl: 0 HISTORIES PAST MEDICAL HISTORY Diagnosis Date Abdominal pain, right lower quadrant 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 Dr. Tee Clemons, Dermatology Basal cell carcinoma (BCC) of skin of face Mohs 04/2021 Cervical spondylosis 09/25/2022 Coronary atherosclerosis of unspecified type of vessel, [place] or graft 01/22/2006 moderate Diverticulosis of colon (without mention of hemorrhage) 07/18/2005 Dyslipidemia Dyspepsia and other specified disorders of function of stomach 07/18/2005 Chronic gastritis, Dyspepsia. Gastric ulcer, unspecified as acute or chronic, without mention of hemorrhage or perforation, with obstruction Generalized osteoarthrosis, unspecified site 07/18/2005 H. pylori infection 05/30/2011 HTN (hypertension) Hypertensive 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 4 chronic kidney disease, or unspecified chronic kidney disease 07/18/2005 Impaired fasting glucose 07/18/2005 Lipoprotein deficiencies 07/18/2005 Low HDL. Lumbago 08/26/2008 Dr. Odin Coon, [facility]. Rotator cuff tear, right 10/21/2012 Salmonella enteritis 08/2010 Type II or unspecified type diabetes mellitus without mention of complication, not stated as uncontrolled 07/08/2007 Unspecified essential hypertension 07/18/2005 FAMILY HISTORY Problem Relation Age of Onset other (CVA) Mother d 89 stroke other (HTN) Mother other (CHF) Mother Ischemic Heart Disease Father Skin Cancer Father bcc other (Lymphoma) Father d 65 lymphoma other (Skin Ca) Brother Melanoma Brother other (Tremors) Brother Cancer Daughter ovarian Diabetes Maternal Grandmother other (Tremors) Brother Melanoma Other maternal uncle SOCIAL HISTORY Social History Tobacco Use Smoking status: Never Smokeless tobacco: Never Vaping Use Vaping Use: Never used Substance Use Topics Alcohol use: No Drug use: No PHYSICAL EXAMINATION BP 127/76 Pulse 76 Resp 18 Wt 95.3 kg (210 lb) SpO2 97% BMI 32.89 kg/m GENERAL EXAM: General appearance: NAD, pleasant. HEENT: NC/AT, nasal congestion absent, no oral lesions, membranes moist. NECK: ROM nml. Lungs: CTA bilaterally. CV: RRR nl S1, S2. Extr: No cyanosis, clubbing or edema. Skin: Cool to touch. NEUROLOGICAL EXAM: General: Awake, alert, oriented x3 (person,place,time), speech fluent, no dysarthria; comprehension, naming, repetition intact. CN: PERRL, EOMI and without nystagmus, VFF to confrontation, facial sensation and strength are normal and symmetric, hearing is intact to finger rub bilaterally, palate and tongue movements are intact and symmetric. SCM and trapezius strength normal. Motor: Normal tone, bulk and strength (5/5) bilaterally (throughout extremities x4). Coordination: FNF, LUKASZ, HTS intact. No tremors. Sensation: LT intact throughout. No evidence of neglect. Gait: Stable with normal stride and arm swing. Assessment and Plan: ASSESSMENT/PLAN: 1. Obstructive sleep apnea (adult) (pediatric) - ICD9: 327.23, ICD10: G47.33 (primary diagnosis) Patient doing well on PAP. Subjective and objective compliance confirmed. Perceived benefit. Tubing and mask issues as above for which Rx sent to DME for longer tubing and possible mask fitting. No other complaints. Encouraged continued compliance. Reminded to clean and replace PAP equipment regularly. Advised pt not to drive or operate heavy machinery if sleepy. 3. Parasomnia, unspecified type - ICD9: 307.47, ICD10: G47.50 Stable and asx on melatonin 3mg nightly. 4. Cervicalgia - ICD9: 723.1, ICD10: M54.2 5. Lumbar pain - ICD9: 724.2, ICD10: M54.50 Persist with lumbar pain worsening. Chronic disease and following with ortho and pain. Will ask Dr. Bowling if he feels injections at this point would help. 6. Lightheadedness - ICD9: 780.4, ICD10: R42 Resolved. Rashaun Manning MD Medical Decision Making: Problems: Moderate: 2+ stable chronic illnesses Data: Unique test result(s) reviewed: 2 Medical Decision Making Level: 3 - Low I spent a total of 25 minutes on the date of the service which included preparing to see the patient, [id number] patient care, completing clinical documentation, obtaining and/or reviewing separately obtained history, performing a medically appropriate examination, counseling and educating the patient/family/caregiver, independently interpreting results (not separately reported), and communicating results to the patient/family/caregiver. documented in this encounter [facility] 01-03-2024 Miscellaneous Notes Patient notified, verbalized understanding. Griselda Stark LPN Attempted to reach pt by phone and line is busy. Try later. Georgina Baxter LPN ----- Message from Galindo Yuan MD sent at 01/02/2024 10:56 PM EST ----- Test results are okay. Diabetes, lipids controlled. Continue diet, and medications. documented in this encounter [facility] 01-03-2024 Miscellaneous Notes Patient has been identified by name and date of : Yes Patient phones for refill(s): Requested Prescriptions Pending Prescriptions Disp Refills metoprolol succinate ER (TOPROL XL) 25 mg 24 hr tablet 90 tablet 3 Sig: Take 1 tablet by mouth once daily. losartan (COZAAR) 50 mg tablet 90 tablet 3 Sig: Take 1 tablet by mouth once daily. Date of last office visit in primary care: 12/20/2023 Date of next office visit in primary care: 06/20/2024 Please advise. Thank you. Candi Greenberg. documented in this encounter [facility] 12-25-2023 History of Present illness Narrative Last saw pcp: 12/20/23 Subjective: Patient presents to clinic c/o painful toenails. They state that the nails are especially painful with shoe gear and pressure. Patient states that nails left 3rd and 4th toenail are painful. Patient admits to being diabetic. No other pedal complaints at this time. Patient states no change in medications or medical history since last visit. Objective: Patient presents to clinic ambulating in diabetic shoe Vasc: DP and PT pulses are palpable bilateral. CFT is less than 5 seconds bilateral. Skin temperature is warm to cool proximal to distal bilateral. There is no edema or varicosities noted. Neuro: Protective sensation is intact to the foot and toes when tested with the 5.07 SWM bilateral. Vibratory sensation is absent at the hallux IPJ bilateral. The hallux is downgoing bilateral. Derm: Nails 1-5 b/l are painful, discolored-yellow, thick, crumbly, dystrophic and with subungal debris. Skin is of normal turgor, texture and hair growth is present bilateral. There are callus to right 3rd toe. No ulcerations, scars, verruca or other lesions noted. Ortho: Muscle strength is 5/5 for all pedal groups tested. Ankle joint DF is decreased with the knee extended with no pain or crepitus noted. 1st MPJ ROM is decreased bilateral. Hammertoes of lesser toes, b/l feet Assessment: (E11.49) Other diabetic neurological complication associated with type 2 diabetes mellitus (HCC) (primary encounter diagnosis) (B35.1) Onychomycosis (M79.674) Pain in toe of right foot (M79.675) Pain in toe of left foot (M20.41, M20.42) Hammer toes of both feet (L85.9) Hyperkeratosis Plan: Patient was seen and evaluated. Nails 1-5 bilateral were debrided in length and thickness. Discussed conservative care for nail deformity vs permanent removal. Patient desires removal of left 3rd and 4th nail in the future. Would ask that he stop his blood thinner prior to procedure if possible Callus reduced to right 3rd toe with dremmel. Due to hammertoe, diabetic neurop[athy and pre-ulcerative callus, will order diabetic shoe Patient was instructed on the continued importance of diabetic foot care along with proper diet and keeping their blood sugar under control to prevent complications. Patient is to RTC in 3-4 months. Juan Torres DPM AMB ROOMING INTAKE FLOWSHEET DATA Pain Pain Level: 3 Pain Location: Foot-Left Description: Raw Duration Amount of Time: 1 Duration Units: Weeks Frequency: Continuous Intervention/Comfort measure: Reposition, Relaxation Patient presents with: Left Foot - Established Patient, Follow Up, Pain, Diabetic Foot Care Right Foot - Established Patient, Follow Up, Diabetic Foot Care Holli Johnson LPN documented in this encounter [facility] 12-25-2023 Instructions Juan Torres - 12/25/2023 9:11 AM EST Diabetes Foot Care Instructions When you have diabetes, proper foot care is very important. Poor foot care may lead to amputation of a foot or leg. As a person with diabetes, you are more vulnerable to foot problems, because diabetes can damage your nerves and reduce blood flow to your feet. Here are some diabetes foot care tips to follow: Wash and Dry Your Feet Daily Use mild soaps Use warm water Pat your skin dry; do not rub. Thoroughly dry your feet. After washing, use lotion on your feet to prevent cracking. Do not put lotion between your toes. Examine Your Feet Each Day Check the tops and bottoms of your feet. Have someone else look at your feet if you cannot see them. Check for dry, cracked skin. Look for blisters, cuts, scratches, or other sores. Check for redness, increased warmth, or tenderness when touching any area of your feet. Check for ingrown toenails, corns, and calluses. If you get a blister or sore from your shoes, do not pop it. Apply a bandage and wear a different pair of shoes. Take Care of Your Toenails Cut toenails after bathing, when they are soft. Cut toenails straight across and smooth with a nail file. Avoid cutting into the corners of toes. Do not cut cuticles. If you have neuropathy (or decreased sensation in your feet) a web programmer should always cut your toenails. Be Careful When Exercising Walk and exercise in comfortable shoes. Do not exercise when you have open sores on your feet. Protect Your Feet With Shoes and Socks Never go barefoot. Always protect your feet by wearing shoes or hard-soled slippers or footwear. Avoid shoes with high heels and pointed toes. Avoid shoes that expose your toes or heels (such as open-toed shoes or sandals). These types of shoes increase your risk for injury and potential infections. Try on new footwear with the type of socks you usually wear. Do not wear new shoes for more than an hour at a time. Change your socks daily. Look and feel inside your shoes before putting them on to make sure there are no foreign objects or rough areas. Avoid tight socks. Wear natural-fiber socks (cotton, wool, or a cotton-wool blend). Wear special shoes if your health care provider recommends them. Wear shoes/boots that will protect your feet from various weather conditions (cold, moisture, etc.). Make sure your shoes fit properly. If you have neuropathy (nerve damage), you may not notice that your shoes are too tight. Perform the footwear test described below. Footwear Test Use this simple test to see if your shoes fit correctly: Stand on a piece of paper. (Make sure you are standing and not sitting, because your foot changes shape when you stand.) Trace the outline of your foot. Trace the outline of your shoe. Compare the tracings: Is the shoe too narrow? Is your foot crammed into the shoe? The shoe should be at least 1/2 inch longer than your longest toe and as wide as your foot. Proper Shoe Choices The following types of shoes are best for people with diabetes Closed toes and heels Leather uppers without a seam inside At least 1/2 inch extra space at the end of your longest toe Inside of shoe should be soft with no rough areas Outer sole should be made of stiff material Shoes should be at least as wide as your feet Tips for Foot Care in Diabetes Don't wait to treat a minor foot problem if you have diabetes. Follow your health care provider's guidelines and first aid guidelines. Report foot injuries and infections to your health care provider immediately. Check water temperature with your elbow, not your foot. Do not use a heating pad on your feet. Do not cross your legs. Do not self-treat your corns, calluses, or other foot problems. Go to your health care provider or web programmer to treat these conditions. documented in this encounter [facility] 10-12-2023 Nurse Note Administered 3 L/Min of oxygen pre-EMS arrival by Cheo Rousseau CNP. Stephanie Arce MA documented in this encounter [facility] 10-12-2023 History of Present illness Narrative Subjective HPI HPI Jg Chahal is a 83 year old male who presents today for CC of cough, congestion, fever, chills, urinary frequency. This started 1 day ago. Has tried otc medication for relief. Symptoms are worsened by nothing. Risk factors sick exposures recently. Denies cp/sob. Denies testicular pain/perineal pain. .Patient presents with: Chest Congestion: Sinus congestion, chills x1 day PAST MEDICAL HISTORY Diagnosis Date Abdominal pain, right lower quadrant 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 Dr. Tee Clemons, Dermatology Basal cell carcinoma (BCC) of skin of face Mohs 04/2021 Coronary atherosclerosis of unspecified type of vessel, [place] or graft 01/22/2006 moderate Diverticulosis of colon (without mention of hemorrhage) 07/18/2005 Dyslipidemia Dyspepsia and other specified disorders of function of stomach 07/18/2005 Chronic gastritis, Dyspepsia. Gastric ulcer, unspecified as acute or chronic, without mention of hemorrhage or perforation, with obstruction Generalized osteoarthrosis, unspecified site 07/18/2005 H. 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 Lumbago 08/26/2008 Dr. Odin Coon, [facility]. Rotator cuff tear, right 10/21/2012 Salmonella enteritis 08/2010 Type II or unspecified type diabetes mellitus without mention of complication, not stated as uncontrolled 07/08/2007 Unspecified essential hypertension 07/18/2005 PAST SURGICAL HISTORY Procedure Laterality Date ARTHROSCOPY KNEE DIAGNOSTIC W/WO SYNOVIAL BX SPX 11/2003 Arthroscopy, knee ARTHRP ACETBLR/PROX FEM PROSTC AGRFT/ALGRFT Right 08/07/2016 Hip replacement, total ARTHRP KNE CONDYLE&PLATU MEDIAL&LAT COMPARTMENTS 2001 Knee replacement, total, left ARTHRP KNE CONDYLE&PLATU MEDIAL&LAT COMPARTMENTS Left 10/01/2017 revision L TKA, [facility] CC ABLATION SVT 04/06/2017 EP study, ablation for A.fib. COLONOSCOPY FLX DX W/COLLJ SPEC WHEN PFRMD 12/24/2002 Colonoscopy COLONOSCOPY FLX DX W/COLLJ SPEC WHEN PFRMD 05/11/2011 Colonoscopy ESOPHAGOGASTRODUODENOSCOPY TRANSORAL DIAGNOSTIC 03/18/2007 EGD ESOPHAGOGASTRODUODENOSCOPY TRANSORAL DIAGNOSTIC 06/11/2007 EGD ESOPHAGOGASTRODUODENOSCOPY TRANSORAL DIAGNOSTIC 05/11/2011 EGD LOPEZ W/O FACETEC FORAMOT/DSC 1/2 VRT SGM CRV 2000 Laminectomy, cervical LAMINECTOMY W/O FFD > 2 VERT SEG LUMBAR 11/05/2008 lumbar fusion LAMINOTOMY (HEMILAMINECTOMY), WITH DECOMPRESSION OF NERVE ROOT(S) Bilateral 05/02/2019 Revision hemilaminectomies L2,L3,L4-L5 LEFT HEART CATH,PERCUTANEOUS 01/22/2006 Cardiac cath, L heart LEFT HEART CATH,PERCUTANEOUS 05/31/2011 Cardiac cath, L heart LEFT HEART CATH,PERCUTANEOUS 11/27/2011 Cardiac cath, L heart LEFT HEART CATH,PERCUTANEOUS 11/27/2013 Cardiac cath, L heart NEUROPLASTY &/TRANSPOS MEDIAN NRV CARPAL TUNNE 1995 Carpal tunnel decomp R/L OPEN REPAIR OF ROTATOR CUFF ACUTE 1995 Rotator cuff repair, bilateral OPEN REPAIR OF ROTATOR CUFF CHRONIC Left 12/28/2014 Left shoulder open rotator cuff repair and Sub Ac decompression SHX TOTAL SHOULDER REVERSE Left 02/01/2022 Left reverse total shoulder arthroplasty TRANSCATH STENT INIT VESSEL,PERCUT 08/26/2009 Transcath stent init vessel percut TRANSCATH STENT INIT VESSEL,PERCUT 11/16/2010 Transcath stent init vessel percut ALLERGIES Adhesive, Codeine, Darvocet-N 100 [Propoxyphene N-Acetaminophen], Latex, and Meperidine Hcl MEDICATIONS apixaban (ELIQUIS) 5 mg tab(s)^Take 1 tablet by mouth two times a day.^Disp: 180 tablet^Rfl: 3 atorvastatin (LIPITOR) 40 mg tablet^Take 1 tablet by mouth once daily.^Disp: 90 tablet^Rfl: 3 clotrimazole-betamethasone (LOTRISONE) cream^Apply to affected area twice daily. APPLY TO AFFECTED AREA^Disp: 45 g^Rfl: 2 amLODIPine (NORVASC) 2.5 mg tablet^Take 1 tablet by mouth once daily.^Disp: ^Rfl: zolpidem (AMBIEN) 5 mg tablet^Take 1 tablet by mouth at bedtime as needed for sedation for up to 14 days.^Disp: 14 tablet^Rfl: 0 nitroglycerin sublingual (NITROSTAT) 0.4 mg SL tablet^Dissolve 1 tablet under the tongue every 5 minutes as needed for chest pain.^Disp: 26 tablet^Rfl: 2 blood sugar diagnostic (BLOOD GLUCOSE TEST) test strip^Test blood sugar(s) 1 times daily. Dx: Type 2 DM - Controlled E11.42 Insulin: No^Disp: 50 Strip^Rfl: 5 metoprolol succinate ER (TOPROL XL) 25 mg 24 hr tablet^Take 1 tablet by mouth once daily.^Disp: ^Rfl: 3 TENS unit and electrodes cmpk^Us as instructed.^Disp: 1 Kit^Rfl: 0 melatonin 3 mg tablet^Take 1 tablet by mouth daily at bedtime.^Disp: 90 tablet^Rfl: 3 Lancets lancets^Test blood sugar(s) 1 times daily. Dx: Type 2 DM - Controlled E11.42 Insulin: No^Disp: 100 Each^Rfl: 3 losartan (COZAAR) 50 mg tablet^Take 1 tablet by mouth once daily.^Disp: 90 tablet^Rfl: [address] (PROTONIX) 40 mg tablet^TAKE ONE TABLET BY MOUTH DAILY ON EMPTY STOMACH ONE-HALF HOUR BEFORE BREAKFAST^Disp: 90 tablet^Rfl: 3 dofetilide (TIKOSYN) 250 mcg capsule^Take 1 capsule by mouth twice daily.^Disp: 180 capsule^Rfl: 3 CPAP^Patient requesting new DME. Currently has a PAP device (2016 -- may be due for new device). Please fit with a Wisp (currently with Dream wisp and causing discomfort on top of head). Lifetime supplies.^Disp: 1 Each^Rfl: 9999 Amoxicillin 500 mg tablet^Take 4 tablets by mouth as needed (1 hour before the procedure).^Disp: 4 tablet^Rfl: 0 docusate sodium (COLACE) 100 mg capsule^AT BEDTIME^Disp: ^Rfl: magnesium oxide (MAG-OX) 400 mg tablet^Take 1 tablet by mouth once daily.^Disp: 90 tablet^Rfl: 3 Cholecalciferol, Vitamin D3, 1,000 unit cap^Take 1 capsule by mouth once daily.^Disp: ^Rfl: 0 vitamin b complex (B COMPLETE) ORAL Tab^Take 1 tablet by mouth once daily.^Disp: 100 tablet^Rfl: 4 FAMILY HISTORY Problem Relation Age of Onset other (CVA) Mother d 89 stroke other (HTN) Mother other (CHF) Mother Ischemic Heart Disease Father Skin Cancer Father bcc other (Lymphoma) Father d 65 lymphoma other (Skin Ca) Brother Melanoma Brother other (Tremors) Brother Cancer Daughter ovarian Diabetes Maternal Grandmother other (Tremors) Brother Melanoma Other maternal uncle Social History Tobacco Use Smoking status: Never Smokeless tobacco: Never Vaping Use Vaping Use: Never used Substance Use Topics Alcohol use: No Drug use: No Review of Systems Constitutional: Positive for fever and malaise/fatigue. HENT: Positive for congestion and sore throat. Negative for ear pain and nosebleeds. Respiratory: Positive for cough. Negative for shortness of breath and wheezing. Musculoskeletal: Negative for neck pain. Skin: Negative for itching and rash. Objective Blood pressure 160/85, pulse 101, temperature (!) 39.6 C (103.2 F), resp. rate 18, weight 92.1 kg (203 lb), SpO2 97 %. Component Latest Ref Rng & Units 09/25/2023 Glucose 74 - 99 mg/dL 91 BUN 9 - 24 mg/dL 14 Creatinine 0.73 - 1.22 mg/dL 1.22 Sodium 136 - 144 mmol/L 140 Potassium 3.7 - 5.1 mmol/L 4.3 Chloride 97 - 105 mmol/L 104 CO2 22 - 30 mmol/L 25 Anion Gap 9 - 18 mmol/L 11 Calcium 8.5 - 10.2 mg/dL 9.4 eGFR >=60 mL/min/1.73m 59 (L) Physical Exam Constitutional: General: He is not in acute distress. Appearance: He is not toxic-appearing or diaphoretic. HENT: Head: Normocephalic and atraumatic. Right Ear: Hearing, tympanic membrane, ear canal and external ear normal. Left Ear: Hearing, tympanic membrane, ear canal and external ear normal. Nose: Nose normal. Mouth/Throat: Pharynx: Uvula midline. Posterior oropharyngeal erythema present. No pharyngeal swelling, oropharyngeal exudate or uvula swelling. Eyes: General: Lids are normal. No scleral icterus. Right eye: No discharge. Left eye: No discharge. Conjunctiva/sclera: Conjunctivae normal. Pupils: Pupils are equal, round, and reactive to light. Neck: Trachea: Trachea normal. Cardiovascular: Rate and Rhythm: Normal rate and regular rhythm. Heart sounds: Normal heart sounds. Pulmonary: Effort: Pulmonary effort is normal. Breath sounds: Normal breath sounds. Musculoskeletal: Cervical back: Normal range of motion and neck supple. Lymphadenopathy: Cervical: No cervical adenopathy. Right cervical: No superficial cervical adenopathy. Left cervical: No superficial cervical adenopathy. Skin: Findings: No rash. Neurological: Mental Status: He is alert and oriented to person, place, and time. ASSESSMENT/PLAN: 1. URI, acute - ICD9: 465.9, ICD10: J06.9 (primary diagnosis) - Discussed viral etiology and rationale for treatment. - Symptomatic treatment with prn analgesia - Supportive care with fluids and rest - Follow up in 3-5 days if symptoms persist or sooner if worsening of symptoms - COVID NAAT, UPPER RESPIRATORY, ROUTINE 2. Sore throat - ICD9: 462, ICD10: J02.9 Neg, viral - ALERE STREP A TEST (AG) 3. Urinary frequency - ICD9: 788.41, ICD10: R35.0 acute - UA positive for hematuria and proteinuria - Send urine for culture - Patient education for prevention given - URINE CULTURE 4. Gross hematuria - ICD9: 599.71, ICD10: R31.0 - URINALYSIS, WITH MICROSCOPIC - URINE CULTURE 5. Pre-syncope - ICD9: 780.2, ICD10: R55 Will refer to ER, squad called This occurred while in room. Yossi Rousseau APRN.DENTAL FLOSS PACKER documented in this encounter [facility] 09-27-2023 Miscellaneous Notes Last seen DOCUMENT PROCESSING SPECIALIST 07/09/23. Next appt with pcp 12/20/23. Patient has been identified by name and date of : Yes Requested Prescriptions Pending Prescriptions Disp Refills apixaban (ELIQUIS) 5 mg tab(s) 180 tablet 3 Sig: Take 1 tablet by mouth two times a day. RX INSTRUCTIONS: Patient aware RX will be sent to pharmacy. No need to notify patient. Lorna Greenberg documented in this encounter [facility] 09-14-2023 Miscellaneous Notes CRISTIN: 07/09/2023 Last refill: QTY: 90 Refills: 3 Patient has been identified by name and date of : Yes Requested Prescriptions Pending Prescriptions Disp Refills atorvastatin (LIPITOR) 40 mg tablet 90 tablet 3 Sig: Take 1 tablet by mouth once daily. RX INSTRUCTIONS: Patient aware RX will be sent to pharmacy. No need to notify patient. Alia Baxter Pss documented in this encounter [facility] 07-19-2023 History of Present illness Narrative Images from the original note were not included. [facility] Department of Cardiovascular Medicine SECTION OF CARDIAC PACING and ELECTROPHYSIOLOGY OUTPATIENT VISIT DATE December 21, 2022 OUTPATIENT VISIT TYPE ESTABLISHED PRIMARY CARE PHYSICIAN: Galindo Yuan MD [address] [place] [address] CHIEF COMPLAINT: Previously persistent, drug refractory atrial fibrillation, status post catheter ablation March 2017; Therapy HISTORY OF PRESENT ILLNESS: Mr. Chahal is a fair functioning 82 year old male who presents today for follow-up visit -- generally doing well. In July, he had an episode of tachycardia (heart rate via his blood pressure cuff was 90 bpm), because he felt lightheaded, he was encouraged to go to the emergency department by his granddaughter who is a nurse practitioner. Upon arrival he was noted to be in sinus rhythm, work-up was performed without remarkable findings and he was discharged home he had another episode of lightheadedness in September, but this resolved without incident. Recently had another episode that was very similar. This was associated with lightheadedness, shortness of breath. Reports that it came on very suddenly. Prompting him to call EMS. He was found to be in A-fib. This resolved spontaneously while he is in the emergency department, and he was discharged home. He denies chest pain, shortness of breath, orthopnea, cough, edema, palpitations, PND, lightheadedness or syncope. PAST CARDIAC HISTORY: PAST MEDICAL HISTORY Diagnosis Date Abdominal pain, right lower quadrant 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 Dr. Tee Clemons, Dermatology Basal cell carcinoma (BCC) of skin of face Mohs 04/2021 Coronary atherosclerosis of unspecified type of vessel, [place] or graft 01/22/2006 moderate Diverticulosis of colon (without mention of hemorrhage) 07/18/2005 Dyslipidemia Dyspepsia and other specified disorders of function of stomach 07/18/2005 Chronic gastritis, Dyspepsia. Gastric ulcer, unspecified as acute or chronic, without mention of hemorrhage or perforation, with obstruction Generalized osteoarthrosis, unspecified site 07/18/2005 H. 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 Lumbago 08/26/2008 Dr. Odin Coon, [facility]. Rotator cuff tear, right 10/21/2012 Salmonella enteritis 08/2010 Type II or unspecified type diabetes mellitus without mention of complication, not stated as uncontrolled 07/08/2007 Unspecified essential hypertension 07/18/2005 PAST SURGICAL HISTORY Procedure Laterality Date ARTHROSCOPY KNEE DIAGNOSTIC W/WO SYNOVIAL BX SPX 11/2003 Arthroscopy, knee ARTHRP ACETBLR/PROX FEM PROSTC AGRFT/ALGRFT Right 08/07/2016 Hip replacement, total ARTHRP KNE CONDYLE&PLATU MEDIAL&LAT COMPARTMENTS 2001 Knee replacement, total, left ARTHRP KNE CONDYLE&PLATU MEDIAL&LAT COMPARTMENTS Left 10/01/2017 revision L TKA, [facility] CC ABLATION SVT 04/06/2017 EP study, ablation for A.fib. COLONOSCOPY FLX DX W/COLLJ SPEC WHEN PFRMD 12/24/2002 Colonoscopy COLONOSCOPY FLX DX W/COLLJ SPEC WHEN PFRMD 05/11/2011 Colonoscopy ESOPHAGOGASTRODUODENOSCOPY TRANSORAL DIAGNOSTIC 03/18/2007 EGD ESOPHAGOGASTRODUODENOSCOPY TRANSORAL DIAGNOSTIC 06/11/2007 EGD ESOPHAGOGASTRODUODENOSCOPY TRANSORAL DIAGNOSTIC 05/11/2011 EGD LOPEZ W/O FACETEC FORAMOT/DSC 1/2 VRT SGM CRV 2000 Laminectomy, cervical LAMINECTOMY W/O FFD > 2 VERT SEG LUMBAR 11/05/2008 lumbar fusion LAMINOTOMY (HEMILAMINECTOMY), WITH DECOMPRESSION OF NERVE ROOT(S) Bilateral 05/02/2019 Revision hemilaminectomies L2,L3,L4-L5 LEFT HEART CATH,PERCUTANEOUS 01/22/2006 Cardiac cath, L heart LEFT HEART CATH,PERCUTANEOUS 05/31/2011 Cardiac cath, L heart LEFT HEART CATH,PERCUTANEOUS 11/27/2011 Cardiac cath, L heart LEFT HEART CATH,PERCUTANEOUS 11/27/2013 Cardiac cath, L heart NEUROPLASTY &/TRANSPOS MEDIAN NRV CARPAL TUNNE 1995 Carpal tunnel decomp R/L OPEN REPAIR OF ROTATOR CUFF ACUTE 1996 Rotator cuff repair, bilateral OPEN REPAIR OF ROTATOR CUFF CHRONIC Left 12/28/2014 Left shoulder open rotator cuff repair and Sub Ac decompression SHX TOTAL SHOULDER REVERSE Left 02/01/2022 Left reverse total shoulder arthroplasty TRANSCATH STENT INIT VESSEL,PERCUT 08/26/2009 Transcath stent init vessel percut TRANSCATH STENT INIT VESSEL,PERCUT 11/16/2010 Transcath stent init vessel percut SOCIAL HISTORY Social History Tobacco Use Smoking status: Never Smokeless tobacco: Never Vaping Use Vaping Use: Never used Substance Use Topics Alcohol use: No Drug use: No FAMILY HISTORY Problem Relation Age of Onset other (CVA) Mother d 89 stroke other (HTN) Mother other (CHF) Mother Ischemic Heart Disease Father Skin Cancer Father bcc other (Lymphoma) Father d 65 lymphoma other (Skin Ca) Brother Melanoma Brother other (Tremors) Brother Cancer Daughter ovarian Diabetes Maternal Grandmother other (Tremors) Brother Melanoma Other maternal uncle ALLERGIES: ALLERGIES Allergen Reactions Adhesive Hives Codeine HEART PALPITATIONS Darvocet-N 100 [Pro* Intolerance Heart racing Latex Hives Meperidine Hcl MEDICATIONS: amLODIPine (NORVASC) 2.5 mg tablet^Take 1 tablet by mouth once daily.^Disp: ^Rfl: zolpidem (AMBIEN) 5 mg tablet^Take 1 tablet by mouth at bedtime as needed for sedation for up to 14 days.^Disp: 14 tablet^Rfl: 0 nitroglycerin sublingual (NITROSTAT) 0.4 mg SL tablet^Dissolve 1 tablet under the tongue every 5 minutes as needed for chest pain.^Disp: 26 tablet^Rfl: 2 blood sugar diagnostic (BLOOD GLUCOSE TEST) test strip^Test blood sugar(s) 1 times daily. Dx: Type 2 DM - Controlled E11.42 Insulin: No^Disp: 50 Strip^Rfl: 5 metoprolol succinate ER (TOPROL XL) 25 mg 24 hr tablet^Take 1 tablet by mouth once daily.^Disp: ^Rfl: 3 TENS unit and electrodes cmpk^Us as instructed.^Disp: 1 Kit^Rfl: 0 melatonin 3 mg tablet^Take 1 tablet by mouth daily at bedtime.^Disp: 90 tablet^Rfl: 3 Lancets lancets^Test blood sugar(s) 1 times daily. Dx: Type 2 DM - Controlled E11.42 Insulin: No^Disp: 100 Each^Rfl: 3 losartan (COZAAR) 50 mg tablet^Take 1 tablet by mouth once daily.^Disp: 90 tablet^Rfl: [address] (PROTONIX) 40 mg tablet^TAKE ONE TABLET BY MOUTH DAILY ON EMPTY STOMACH ONE-HALF HOUR BEFORE BREAKFAST^Disp: 90 tablet^Rfl: 3 dofetilide (TIKOSYN) 250 mcg capsule^Take 1 capsule by mouth twice daily.^Disp: 180 capsule^Rfl: 3 apixaban (ELIQUIS) 5 mg tab(s)^Take 1 tablet by mouth twice daily.^Disp: 180 tablet^Rfl: 3 atorvastatin (LIPITOR) 40 mg tablet^Take 1 tablet by mouth once daily.^Disp: 90 tablet^Rfl: 3 CPAP^Patient requesting new DME. Currently has a PAP device (2016 -- may be due for new device). Please fit with a Wisp (currently with Dream wisp and causing discomfort on top of head). Lifetime supplies.^Disp: 1 Each^Rfl: 9999 Amoxicillin 500 mg tablet^Take 4 tablets by mouth as needed (1 hour before the procedure).^Disp: 4 tablet^Rfl: 0 docusate sodium (COLACE) 100 mg capsule^AT BEDTIME^Disp: ^Rfl: magnesium oxide (MAG-OX) 400 mg tablet^Take 1 tablet by mouth once daily.^Disp: 90 tablet^Rfl: 3 Cholecalciferol, Vitamin D3, 1,000 unit cap^Take 1 capsule by mouth once daily.^Disp: ^Rfl: 0 vitamin b complex (B COMPLETE) ORAL Tab^Take 1 tablet by mouth once daily.^Disp: 100 tablet^Rfl: 4 REVIEW OF SYSTEMS: GENERAL: Negative for: Weight loss or gain, Fever or Chills, Weakness and Sleep difficulties. HEENT: Negative for: Headache, Impaired Vision, Glasses, Hearing Impairment, Ringing in Ears, Nosebleeds, Poor dental care, Bleeding Gums, Dentures NECK: Negative for: Swelling, Pain, Stiffness RESPIRATORY: Negative for: Cough, Blood in Sputum, Shortness of breath, Wheezing, Apnea GASTROINTESTINAL: Negative for: Trouble swallowing, Heartburn, Change in bowel habits, Blood in stool, Dark black stools MUSCULOSKELETAL: Negative for: Muscle or joint pain, Stiffness , Joint swelling NEUROLOGIC/PSYCHIATRIC: Negative for: Weakness, Paralysis, Numbness, Tingling, Tremor, Nervousness, Depressed mood, Memory loss SKIN: Negative for: Rashes, Itching HEMATOLOGICAL/LYMPHATIC: Negative for: Easy bruising , Easy bleeding ENDOCRINE: Negative for: Heat or cold intolerance, Excessive sweating, Frequent urination, Frequent thirst PHYSICAL EXAMINATION: BP 116/70 Pulse 66 Ht 170.2 cm (5' 7) Wt 96.2 kg (212 lb) BMI 33.20 kg/m General: Well appearing, in no acute distress. Skin: No clubbing, no cyanosis. Eyes: Extra ocular movements intact Oropharynx: Teeth in good repair. Neck: No jugular venous distention, no carotid bruits, carotids have a normal upstroke, no palpable thyromegaly. Lungs: Clear to auscultation bilaterally, no wheezing or rhonchi. Heart: Regular rhythm, PMI not displaced, S1, S2 normal, no S3, no S4, no heaves, no rub and no murmur. Abdomen: Soft, nontender, bowel sounds normal, no palpable organomegaly, no bruits. Extremities: No peripheral edema . Grade 2/4 distal pulses bilaterally. Neuro: Oriented to person, place and time, alert, cooperative, gait coordinated. CARDIOVASCULAR MEDICINE TESTING: Electrocardiogram: Normal sinus rhythm corrected QT 440 Cardiac perfusion and stress study July 2021 CONCLUSIONS: 1. SPECT Perfusion Study: Normal. 2. There is no scintigraphic evidence for inducible ischemia. 3. No evidence of scarred myocardium. 4. Left ventricle is normal in size. The left ventricle systolic function is hyperdynamic. 5. Right ventricle is normal in size. The right ventricle systolic function is normal. 6. This is a low risk scan. Component Latest Ref Rng & Units 06/20/2023 07/02/2023 Glucose 74 - 99 mg/dL 104 (H) BUN 9 - 24 mg/dL 15 Creatinine 0.73 - 1.22 mg/dL 1.17 Sodium 136 - 144 mmol/L 140 Potassium 3.7 - 5.1 mmol/L 4.7 Chloride 97 - 105 mmol/L 104 CO2 22 - 30 mmol/L 25 Anion Gap 9 - 18 mmol/L 11 Calcium 8.5 - 10.2 mg/dL 9.9 eGFR >=60 mL/min/1.73m 62 Magnesium 1.7 - 2.3 mg/dL 2.0 I have personally reviewed the Electrocardiogram. IMPRESSION: Mr. Chahal is a fairly well-functioning 82 year old male hypertension, dyslipidemia, diabetes, obstructive sleep apnea treated with C Pap, stable coronary artery disease (status post PCI 2005,2008), preserved LV systolic function, diffuse arthritis (chronic pain), and drug refractory symptomatic, persistent atrial fibrillation (previously initially improved with sotalol started in November 2015; but then developed refractoriness and switched to Tikosyn in May 2016). He Underwent in March 2017 catheter based pulmonary vein antral isolation. Remains on dofetilide 250 mg twice a day. He has demonstrated excellent rhythm control following catheter ablation --until the fall 2021. He describes awareness of what seemed to him sudden onset tachypalpitations, associated with lightheadedness. Blood pressure taken at home was 180/90. He took 2 sublingual nitroglycerin --found he was still quite lightheaded, and presented to his local emergency department. On arrival he was found to be in sinus rhythm. Work-up was complete and he was sent home. He describes another episode of transient lightheadedness which occurred in September. Another episode recently, in which he presented to the emergency department and was reportedly found in A-fib with RVR. A-fib resolved spontaneously. We discussed escalating rhythm control efforts including 1. Catheter ablation and to switching from dofetilide to amiodarone. At this point he would like to adopt a watchful waiting strategy He continues to describe dyspnea (mild) with exertion. We reviewed his coronary angiography. Echo from last year showed no structural nor valvular disease. We will repeat an echocardiogram. But I told Satnam that I suspect this may be deconditioning. He wonders if his blood pressure may be too low. And it was suggested to him that he cut back on his dose of amlodipine. This in my opinion is reasonable.. But I did tell him to check his blood pressure after this adjustment and if greater than 140/90, he should resume this current dose. Next appointment in 12 months with [facility] team documented in this encounter [facility] 07-19-2023 Instructions Sakshi Sanz MD - 07/19/2023 1:02 PM EDT Reduce amlodipine 2.5 mg daily IF BP >140/90 then resume 5 mg daily documented in this encounter [facility] 07-13-2023 History of Present illness Narrative ESTABLISHED PATIENT VISIT CHIEF COMPLAINT: Follow Up HISTORY OF PRESENT ILLNESS: Jg Chahal is a 82 year old male, BMI 32.73 kg/m2 with a PMH significant for and per last office visit note of 01/05/23: 1. ETHAN on CPAP - ICD9: 327.23, V46.8, ICD10: G47.33, Z99.89 (primary diagnosis) Doing well on PAP. No subjective complaints and objective data download confirm compliance with normalization of AHI. Encouraged continued compliance. Reminded to clean and replace equipment regularly. Advised pt not to drive or operate heavy machinery if sleepy. 2. Parasomnia, unspecified type - ICD9: 307.47, ICD10: G47.50 Stable with no symptoms with pt taking melatonin 3mg at bedtime. No change in therapy at this time. 3. Cervicalgia - ICD9: 723.1, ICD10: M54.2 Encouraged follow up with pain mgmt. Non-focal neuro exam. 4. Vertigo - ICD9: 780.4, ICD10: R42 Resolved. Discussed benefits of still gong through with MRI brain (MRA brain/neck). Pt declines at this time. If changes his mind, order still in system. PAP data download reviewed. Pt has used 89/90 days for avg use of 8 hours and 3 minutes. Set at 5-12 cmH2O with 95% pressure of 11.8 cmH2O. 95% leak is elevated at 31.4 LPM. AHI is 0.5. Pt still feels lightheaded when standing up - goes away immediately. Not vertigo. had a spell with his heart a week or so ago and was in afib. States they did not change meds however fatigued ever since. Sleep has been ok and in fact better than it has been. in February had some difficulties sleeping after finding his brother in law . Nightmares for a month or so per pt after event. Now resolved. Using CPAP nightly. States he does need a new mask with pt stating 3 months since last. No subjective leaks. States pressure does not feel like enough in the AM. Always wakes at 2AM no matter when he falls asleep. Feels sleep is good and wakes and walks every day. Still following with pain mgmt for neck with good control of cervicalgia (seeing Dr. Malena Bowling in [place]). Parasomnias stable. BP sittin/65; pulse 73 BP standin/72; pulse 82 REVIEW OF SYSTEMS GENERAL:No weight loss, malaise or fevers. HEENT:Negative for frequent or significant headaches, No changes in hearing or vision, no nose bleeds or other nasal problems NECK:Negative for lumps, goiter, pain and significant neck swelling RESPIRATORY: Negative for cough, wheezing or shortness of breath. CARDIOVASCULAR: Negative for chest pain, leg swelling or palpitations. GASTROINTESTINAL: Negative for abdominal discomfort, blood in stools or black stools or change in bowel habits GENITOURINARY: No history of dysuria, frequency or incontinence MUSCULOSKELETAL: See HPI. NEUROLOGIC:Negative for focal numbness or weakness, headaches and dizziness or syncope, vision changes, speech/languag changes - EXCEPT that as per HPI above. SKIN:Negative for lesions, rash, and itching. LAB/IMAGING: Those performed since patient's last visit have been reviewed. WBC (k/uL) Date Value 01/03/2023 9.27 RBC (m/uL) Date Value 01/03/2023 5.04 Hemoglobin (g/dL) Date Value 01/03/2023 14.7 Hematocrit (%) Date Value 01/03/2023 44.2 MCV (fL) Date Value 01/03/2023 87.7 MCH (pg) Date Value 01/03/2023 29.2 MCHC (g/dL) Date Value 01/03/2023 33.3 RDW-CV (%) Date Value 01/03/2023 14.6 Platelet Count (k/uL) Date Value 01/03/2023 216 MPV (fL) Date Value 01/03/2023 9.2 Glucose (mg/dL) Date Value 07/02/2023 104 (H) BUN (mg/dL) Date Value 07/02/2023 15 Creatinine (mg/dL) Date Value 07/02/2023 1.17 Sodium (mmol/L) Date Value 07/02/2023 140 Potassium (mmol/L) Date Value 07/02/2023 4.7 Chloride (mmol/L) Date Value 07/02/2023 104 CO2 (mmol/L) Date Value 07/02/2023 25 Protein, Total (g/dL) Date Value 12/07/2022 6.9 Albumin (g/dL) Date Value 12/07/2022 4.3 Calcium, Total (mg/dL) Date Value 07/02/2023 9.9 Alkaline Phosphatase (U/L) Date Value 12/07/2022 137 (H) Bilirubin, Total (mg/dL) Date Value 12/07/2022 0.7 AST (U/L) Date Value 12/07/2022 16 ALT (U/L) Date Value 12/07/2022 18 Rheumatoid Factor (IU/mL) Date Value 06/21/2005 8 MEDICATIONS: zolpidem (AMBIEN) 5 mg tablet Take 1 tablet by mouth at bedtime as needed for sedation for up to 14 days. nitroglycerin sublingual (NITROSTAT) 0.4 mg SL tablet Dissolve 1 tablet under the tongue every 5 minutes as needed for chest pain. blood sugar diagnostic (BLOOD GLUCOSE TEST) test strip Test blood sugar(s) 1 times daily. Dx: Type 2 DM - Controlled E11.42 Insulin: No metoprolol succinate ER (TOPROL XL) 25 mg 24 hr tablet Take 1 tablet by mouth once daily. TENS unit and electrodes cmpk Us as instructed. melatonin 3 mg tablet Take 1 tablet by mouth daily at bedtime. Lancets lancets Test blood sugar(s) 1 times daily. Dx: Type 2 DM - Controlled E11.42 Insulin: No losartan (COZAAR) 50 mg tablet Take 1 tablet by mouth once daily. pantoprazole DR (PROTONIX) 40 mg tablet TAKE ONE TABLET BY MOUTH DAILY ON EMPTY STOMACH ONE-HALF HOUR BEFORE BREAKFAST dofetilide (TIKOSYN) 250 mcg capsule Take 1 capsule by mouth twice daily. amLODIPine (NORVASC) 5 mg tablet Take 1 tablet by mouth once daily. apixaban (ELIQUIS) 5 mg tab(s) Take 1 tablet by mouth twice daily. atorvastatin (LIPITOR) 40 mg tablet Take 1 tablet by mouth once daily. CPAP Patient requesting new DME. Currently has a PAP device (2015 -- may be due for new device). Please fit with a Wisp (currently with Dream wisp and causing discomfort on top of head). Lifetime supplies. Amoxicillin 500 mg tablet Take 4 tablets by mouth as needed (1 hour before the procedure). docusate sodium (COLACE) 100 mg capsule AT BEDTIME magnesium oxide (MAG-OX) 400 mg tablet Take 1 tablet by mouth once daily. Cholecalciferol, Vitamin D3, 1,000 unit cap Take 1 capsule by mouth once daily. vitamin b complex (B COMPLETE) ORAL Tab Take 1 tablet by mouth once daily. 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 Dr. Tee Clemons, Dermatology Basal cell carcinoma (BCC) of skin of face Mohs 04/2021 Coronary atherosclerosis of unspecified type of vessel, [place] or graft 01/22/2006 moderate Diverticulosis of colon (without mention of hemorrhage) 07/18/2005 Dyslipidemia Dyspepsia and other specified disorders of function of stomach 07/18/2005 Chronic gastritis, Dyspepsia. Gastric ulcer, unspecified as acute or chronic, without mention of hemorrhage or perforation, with obstruction Generalized osteoarthrosis, unspecified site 07/18/2005 H. 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 Lumbago 08/26/2008 Dr. Odin Coon, [facility]. Rotator cuff tear, right 10/21/2012 Salmonella enteritis 08/2010 Type II or unspecified type diabetes mellitus without mention of complication, not stated as uncontrolled 07/08/2007 Unspecified essential hypertension 07/18/2005 FAMILY HISTORY Problem Relation Age of Onset other (CVA) Mother d 89 stroke other (HTN) Mother other (CHF) Mother Ischemic Heart Disease Father Skin Cancer Father bcc other (Lymphoma) Father d 65 lymphoma other (Skin Ca) Brother Melanoma Brother other (Tremors) Brother Cancer Daughter ovarian Diabetes Maternal Grandmother other (Tremors) Brother Melanoma Other maternal uncle SOCIAL HISTORY Social History Tobacco Use Smoking status: Never Smokeless tobacco: Never Vaping Use Vaping Use: Never used Substance Use Topics Alcohol use: No Drug use: No PHYSICAL EXAMINATION BP 128/74 Pulse 72 Resp 18 Wt 94.8 kg (209 lb) SpO2 97% BMI 32.73 kg/m GENERAL EXAM: General appearance: NAD, pleasant. HEENT: NC/AT, nasal congestion absent, no oral lesions, membranes moist. NECK: No masses, supple. Lungs: CTA bilaterally. CV: RRR nl S1, S2 Extr: No cyanosis, clubbing or edema. Skin: Cool to touch. NEUROLOGICAL EXAM: General: Awake, alert, oriented x3 (person,place,time), speech fluent, no dysarthria; comprehension, naming, repetition intact. CN: PERRL, EOMI and without nystagmus, VFF to confrontation, facial sensation and strength are normal and symmetric, hearing is intact to finger rub bilaterally, palate and tongue movements are intact and symmetric. SCM and trapezius strength normal. Motor: Normal tone, bulk and strength (5/5) bilaterally (throughout extremities x4). Coordination: FNF, LUKASZ, HTS intact. No tremors. Sensation: Light touch, vibration intact throughout. No evidence of neglect. Gait: Stable with normal stride and arm swing. Assessment and Plan: ASSESSMENT/PLAN: 1. ETHAN on CPAP - ICD9: 327.23, V46.8, ICD10: G47.33 (primary diagnosis) Subjectively doing well and both subjectively and objectively compliant. Download shows elevated leak, but pt denies. Thus no changes in PAP settings. Encouraged continued compliance. Reminded to clean and replace equipment regularly. Advised pt not to drive or operate heavy machinery when sleepy. Note recent fatigue appears directly related to recent episode of afib with pt having cards follow up soon. 2. Parasomnia, unspecified type - ICD9: 307.47, ICD10: G47.50 Stable with no symptoms so long as taking melatonin 3-5mg nightly. No change in treatment. 3. Cervicalgia - ICD9: 723.1, ICD10: M54.2 Stable. Encouraged follow up with Dr. Bowling. 4. Lightheadedness - ICD9: 780.4, ICD10: R42 Not vertigo. Positional in nature. Could not reproduce in office and not orthostatic. However question if Norvasc contributing and would ask if cardiology could consider alternative med. Rashaun Manning MD I spent a total of 32 minutes on the date of the service which included preparing to see the patient, [id number] patient care, completing clinical documentation, obtaining and/or reviewing separately obtained history, performing a medically appropriate examination, counseling and educating the patient/family/caregiver, communicating with other HCPs (not separately reported), independently interpreting results (not separately reported), and communicating results to the patient/family/caregiver. documented in this encounter [facility] 07-09-2023 Ana Mead APRN.DENTAL FLOSS PACKER - 07/09/2023 8:21 AM EDT Screening schedule The following prevention plan is recommended: COVID-19 VACCINE(6 - Pfizer series) due on 04/19/2023 WHAT YOU CAN DO TO PREVENT FALLS Many falls can be prevented. By making some changes, you can lower your chances of falling. Four things YOU can do to prevent falls for you* and your caregiver 1. Begin a regular exercise program Exercise is one of the most important ways to lower your chances of falling. It makes you stronger and helps you feel better. Exercises that improve balance and coordination (like Angel Chi) are the most helpful. Lack of exercise leads to weakness and increases your chances of falling. Ask your doctor or health care provider about the best type of exercise program for you. 2. Have your health care provider review your medicines Have your doctor or pharmacist review all the medicines you take, even [id number] medicines. As you get older, the way medicines work in your body can change. Some medicines, or combinations of medicines, can make you sleepy or dizzy and can cause you to fall. 3. Have your vision checked Have your eyes checked by an eye doctor at least once a year. You may be wearing the wrong glasses or have a condition like glaucoma or cataracts that limits your vision. Poor vision can increase your chances of falling. 4. Make your home safer About half of all falls happen at home. To make your home safer: Remove things you can trip over (like papers, books, clothes, and shoes) from stairs and places where you walk. Remove small throw rugs or use double-sided tape to keep the rugs from slipping. Keep items you use often in cabinets you can reach easily without using a step stool. Have grab bars put in next to your toilet and in the tub or shower. Use non-slip mats in the bathtub and on shower floors. Improve the lighting in your home. As you get older, you need brighter lights to see well. Hang light-weight curtains or shades to reduce glare. Have handrails and lights put in on all staircases. Wear shoes both inside and outside the house. Avoid going barefoot or wearing slippers. For more information, contact: Centers for Disease Control and Prevention www.cdc.gov/injury * This information may not apply if you have certain medical conditions. documented in this encounter [facility] 07-09-2023 History of Present illness Narrative Jg Chahal is a 82 year old male here for a Medicare wellness visit. Health Risk Assessment In general, health is: Good Concerns with balance:occasional due to positional lightheadedness Concerns with teeth or dentures:Not at all Concerns with sexual function:prefers not to answer [place] anxious, stressed, angry, irritable, lonely, isolated, or had thoughts of hurting themself: Several days due to recent in the family Has little interest or pleasure in doing things: Not at all Bothered by feeling down, depressed, or hopeless: Not at all Needs help with grocery shopping, cooking, housework, bathing, grooming, dressing, eating, sitting or standing, walking, using the toilet, handling finances, taking medications, using the telephone, or driving: No Following safety precautions in the home environment and vehicle: removed throw rugs from floors, installed grab bars in the bathroom, handrails in stairwells, having adequate lighting, wearing seatbelt at all times?: Yes Smokes cigarettes, vapes, or chew tobacco: No Eats healthy foods including fruits, vegetables, whole grains, and fiber-rich foods: Nearly every day Number of days per week engages in exercise: tries to stay active with walking and yard work Average alcohol consumption: Never Current Providers Specialists: I have reviewed specialist-related care of the patient in the medical record. Current care team: Patient Care Team: Galindo Yuan MD as PCP - General (Internal Medicine) Sakshi Sanz MD as Primary Staff Physician (Cardiology-bag machine set up operator) Podiatry- [place] Sleep medicine- [facility] Outside specialists seen: [facility] Medical/Family history review Reviewed and updated problem list, medical/surgical/family/social history, medications, and allergies. Opioid use review Patient is not currently using opioids. Depression screening Depression Screening PHQ-2 Score PHQ-9 Score 06/28/2023 0 - Depression screening tool completed and reviewed. Based on score and interview, patient is not at risk for depression. Screening tool discussed with patient, and I recommended no further intervention at this time. Cognitive screening Mini Cog Score: 5 Functional Observation Was the patient's timed Up & Go test unsteady or ? 12 seconds? No Advance Care Planning End of Life planning discussed, including patient's advanced directive wishes: Yes Measurements BP 124/75 Pulse 80 Resp 16 Ht 5' 7 (1.70m) Wt 209 lb (94.8kg) BMI 32.73 kg/(m^2). Visual acuity (required for Welcome to Medicare): follows with optometry/ophthalmology Hearing Evaluation: within normal limits Assessment/Plan Medicare annual wellness visit, subsequent (Z00.00) - Counseled on healthy diet and regular exercise - Discussed need for and benefit of weight loss. BMI 32.73 kg/(m^2) - Fall avoidance - Vaccines recommended COVID-19 - Depression screening documented in this encounter [facility] 07-02-2023 Miscellaneous Notes Pt notified. Amberly Rosales Ma Patient's request for medication is as follows Requested Prescriptions Signed Prescriptions Disp Refills zolpidem (AMBIEN) 5 mg tablet 14 tablet 0 Sig: Take 1 tablet by mouth at bedtime as needed for sedation for up to 14 days. Authorizing Provider: GALINDO YUAN Order entered - please phone pharmacy and notify patient. Galindo Yuan MD Patient reports insurance will not cover temazepam not on formulary. Asking pcp to order something else. Advised patient to call insurance and ask what medication is on formulary. Patient states he does not want to call insurance, would rather doctor take care of this. Please advise patient. documented in this encounter [facility] 06-28-2023 History of Present illness Narrative This note was created using [employer]. Subjective Jg Chahal is a 82 year old male. He was in the [facility] ED for chest pain and palpitations. His cardiac work up was negative. His medications were unchanged, and he was advised cardiology follow up. He was dealing with a in the family and stressors were high. He was having more insomnia. On system review, he had chronic right lower quadrant pain for several months, with no specific triggers or associations. Review of Systems Constitutional: Negative for appetite change, fatigue, fever and unexpected weight change. Respiratory: Negative for cough and shortness of breath. Cardiovascular: Negative for chest pain, palpitations and leg swelling. Gastrointestinal: Positive for abdominal pain. Negative for abdominal distention, blood in stool, constipation, diarrhea, nausea and vomiting. Genitourinary: Negative for difficulty urinating, dysuria, flank pain and hematuria. 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 Obesity, Class I, Bmi 30-34.9 Sleep Terrors Oropharyngeal Dysphagia Cervical Spondylosis Stable Angina (Hcc) Cervical Myofascial Pain Syndrome Cervicalgia Social History Tobacco Use Smoking status: Never Smokeless tobacco: Never Vaping Use Vaping Use: Never used Substance Use Topics Alcohol use: No Drug use: No ALLERGIES Allergen Reactions Adhesive Hives Codeine HEART PALPITATIONS Darvocet-N 100 [Pro* Intolerance Heart racing Latex Hives Meperidine Hcl Current Outpatient Medications Medication Sig TENS unit and electrodes cmpk Us as instructed. melatonin 3 mg tablet Take 1 tablet by mouth daily at bedtime. Lancets lancets Test blood sugar(s) 1 times daily. Dx: Type 2 DM - Controlled E11.42 Insulin: No losartan (COZAAR) 50 mg tablet Take 1 tablet by mouth once daily. pantoprazole DR (PROTONIX) 40 mg tablet TAKE ONE TABLET BY MOUTH DAILY ON EMPTY STOMACH ONE-HALF HOUR BEFORE BREAKFAST dofetilide (TIKOSYN) 250 mcg capsule Take 1 capsule by mouth twice daily. amLODIPine (NORVASC) 5 mg tablet Take 1 tablet by mouth once daily. apixaban (ELIQUIS) 5 mg tab(s) Take 1 tablet by mouth twice daily. atorvastatin (LIPITOR) 40 mg tablet Take 1 tablet by mouth once daily. CPAP Patient requesting new DME. Currently has a PAP device (2015 -- may be due for new device). Please fit with a Wisp (currently with Dream wisp and causing discomfort on top of head). Lifetime supplies. Amoxicillin 500 mg tablet Take 4 tablets by mouth as needed (1 hour before the procedure). docusate sodium (COLACE) 100 mg capsule AT BEDTIME magnesium oxide (MAG-OX) 400 mg tablet Take 1 tablet by mouth once daily. Cholecalciferol, Vitamin D3, 1,000 unit cap Take 1 capsule by mouth once daily. vitamin b complex (B COMPLETE) ORAL Tab Take 1 tablet by mouth once daily. nitroglycerin sublingual (NITROSTAT) 0.4 mg SL tablet Dissolve 1 tablet under the tongue every 5 minutes as needed for chest pain. blood sugar diagnostic (BLOOD GLUCOSE TEST) test strip Test blood sugar(s) 1 times daily. Dx: Type 2 DM - Controlled E11.42 Insulin: No metoprolol succinate ER (TOPROL XL) 25 mg 24 hr tablet Take 1 tablet by mouth once daily. temazepam (RESTORIL) 7.5 mg capsule Take 1 capsule by mouth at bedtime as needed for up to 14 days. No current facility-administered medications for this visit. Objective BP 120/68 (BP Site: Left Arm, BP Position: Sitting, BP Cuff Size: Large Adult) Pulse 76 Resp 20 Wt 94.3 kg (208 lb) BMI 32.58 kg/m Physical Exam Constitutional: General: He is not in acute distress. Appearance: He is not ill-appearing. HENT: Mouth/Throat: Mouth: Mucous membranes are moist. Eyes: General: No scleral icterus. Conjunctiva/sclera: Conjunctivae normal. Cardiovascular: Rate and Rhythm: Normal rate and regular rhythm. Heart sounds: No murmur heard. No gallop. Pulmonary: Effort: Pulmonary effort is normal. Breath sounds: Normal breath sounds. Abdominal: General: There is no distension. Palpations: Abdomen is soft. There is no mass. Tenderness: There is no abdominal tenderness. There is no guarding. Hernia: No hernia is present. Neurological: General: No focal deficit present. Mental Status: He is alert. Gait: Gait normal. Depression Screening 04/12/2018 04/25/2019 05/12/2021 06/28/2023 PHQ-2 Score 0 0 0 0 PHQ-9 Score - - 3 - Depression screening tool completed and reviewed. Based on score and interview, patient is not at risk for depression. Screening tool discussed with patient, and I recommended no further intervention at this time. Assessment and Plan 1. Coronary artery disease of [place] artery of [place] heart with stable angina pectoris (HCC) - ICD9: 414.01, 413.9, ICD10: I25.118 (primary diagnosis) Stable. - NITROGLYCERIN 0.4 MG SUBLINGUAL TABLET 2. 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) - ICD9: 250.60, 357.2, ICD10: E11.42 - Controlled - Continue current medications - BLOOD GLUCOSE TEST STRIPS 3. Paroxysmal atrial fibrillation (HCC) - ICD9: 427.31, ICD10: I48.0 Dose clarified. - METOPROLOL SUCCINATE ER 25 MG TABLET,EXTENDED RELEASE 24 HR 4. Right lower quadrant pain - ICD9: 789.03, ICD10: R10.31 Etiology unclear Differential Diagnosis includes Kidney stones/colic - URINALYSIS, WITH MICROSCOPIC 5. Adjustment insomnia - ICD9: 307.41, ICD10: F51.02 Discussed medication dosage, usage, goals of therapy, and side effects. 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 Macias, [facility] Other seborrheic keratosis 02/17/2015 1 01/07/2018 Overview: Dr. Tee Clemons, Dermatology Neoplasm of uncertain behavior of skin 02/17/2015 11/06/2018 Overview: Behind right mid ear Dr. Tee Clemons, Dermatology Hemangioma of skin and subcutaneous tissue 02/17/2015 02/16/2016 Overview: Dr. Tee Clemons, Dermatology Pain in joint, shoulder region 02/12/2015 02/16/2016 Rotator cuff (capsule) sprain 12/28/2014 12/28/2014 Rotator cuff tear, right 10/21/2012 Chest pain 04/07/2012 02/16/2016 Overview: Unstable angina vs NSTEMI Multiple admissions for NSTEMI and unstable angina Stress test in Sep 2015 negative Zack negative Plan: - Consider LHC if symptoms get worse Hyperlipidemia 04/07/2012 02/19/2017 DM (diabetes mellitus) 04/07/201202/15 SUMMARY 04/06/2012 09/15/2017 Overview: This is a 71 year old male with CAD (s/p PCI with DARCI in PDA and Ramus), DM, obesity and HTN who presents with typical CP over 12hrs. ECG shows mild diffuse concave ST elevation, less notable than his ECG in November 2011 when a LHC showed stable CAD. Enzymes at [facility] negative. Repeat enzymes pending. Plan - Cycle ECG/Enzymes-Negativef for AR - Aspirin/Clopidogrel/BB/Statin/ARB -Stress echo negative for ischemia, discharge 04/09 am. -04/09/2012 Stable DC home. Follow up with Dr Jones. DC home on same meds prior to admit except aspirin reduced from 325mg daily to 81mg daily. SUMMARY 11/24/2011 03/28/2012 Overview: This is a 71 year old male with CAD s/p PCI with DARCI in PDA and Ramus, DM, HTN who presents with atypical CP over the past 5 weeks 1/9 Intermittent chest discomfort all weekend despite negative enzymes, cath today SUMMARY 05/30/2011 09/28/2011 Overview: 72 year old man known to have HTN, DM, hypercholesterolaemia, CAD s/p DARCI to the [facility] 08/2009, DARCI to the [place] 10/2010. He was admitted 05/2011 with chest pain but on repeat LHC was found to have patent stents. He was readmitted 03/2012 with chest pain but was negative for coronary ischaemia on stress echocardiogram evaluation and was medically optimised pre discharge He was admitted to an OSH on 08/24/2012 with sudden onset of chest pain at 10 AM while at a , his initial eval was negative for ACS and he has been transferred to [facility] for further evaluation and management. Started heparin,NTG last night for unstable angina. Cardiac cath - 08/27/2012 Successful PCI of Mid LAD with a 2.5 x 16 mm Promus Element DARCI H. pylori infection 05/30/2011 09/28/20 11 Overview: Continue triple therapy Acute gastritis without mention of hemorrhage 01/20/20 11 09/15/2017 Renal insufficiency 11/16/2010 09/28/20 11 Overview: Na Bicarb at cath. 05/30 BUN/Creat 13.15 Diabetes mellitus without complication 07/08/2007 02/16/2016 Overview: - Accuchecks and DM diet - Sliding scale insulin. -HBa1c -5.6%. 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 Macias, [facility] Dermatology Other seborrheic keratosis 02/17/2015 1 01/07/2018 Overview: Dr. Tee Clemons, Dermatology Neoplasm of uncertain behavior of skin 02/17/2015 11/06/2018 Overview: Behind right mid ear Dr. Tee Clemons, Dermatology Hemangioma of skin and subcutaneous tissue 02/17/2015 02/16/2016 Overview: Dr. Tee Clemons, Dermatology Pain in joint, shoulder region 02/12/2015 02/16/2016 Rotator cuff (capsule) sprain 12/28/2014 12/28/2014 Rotator cuff tear, right 10/21/2012 Chest pain 04/07/2012 02/16/2016 Overview: Unstable angina vs NSTEMI Multiple admissions for NSTEMI and unstable angina Stress test in Sep 2015 negative Zack negative Plan: - Consider LHC if symptoms get worse Hyperlipidemia 04/07/2012 02/19/2017 DM (diabetes mellitus) 04/07/201202/15 SUMMARY 04/06/2012 09/15/2017 Overview: This is a 71 year old male with CAD (s/p PCI with DARCI in PDA and Ramus), DM, obesity and HTN who presents with typical CP over 12hrs. ECG shows mild diffuse concave ST elevation, less notable than his ECG in November 2011 when a LHC showed stable CAD. Enzymes at [facility] negative. Repeat enzymes pending. Plan - Cycle ECG/Enzymes-Negativef for AR - Aspirin/Clopidogrel/BB/Statin/ARB -Stress echo negative for ischemia, discharge 04/09 am. -04/09/2012 Stable DC home. Follow up with Dr Jones. DC home on same meds prior to admit except aspirin reduced from 325mg daily to 81mg daily. SUMMARY 11/24/2011 03/28/2012 Overview: This is a 71 year old male with CAD s/p PCI with DARCI in PDA and Ramus, DM, HTN who presents with atypical CP over the past 5 weeks 11/27 Intermittent chest discomfort all weekend despite negative enzymes, cath today SUMMARY 05/30/2011 09/28/2011 Overview: 72 year old man known to have HTN, DM, hypercholesterolaemia, CAD s/p DARCI to the [facility] 08/2009, DARCI to the [place] 10/2010. He was admitted 05/2011 with chest pain but on repeat LHC was found to have patent stents. He was readmitted 03/2012 with chest pain but was negative for coronary ischaemia on stress echocardiogram evaluation and was medically optimised pre discharge He was admitted to an OSH on 08/24/2012 with sudden onset of chest pain at 10 AM while at a , his initial eval was negative for ACS and he has been transferred to [facility] for further evaluation and management. Started heparin,NTG last night for unstable angina. Cardiac cath - 08/27/2012 Successful PCI of Mid LAD with a 2.5 x 16 mm Promus Element DARCI H. pylori infection 05/30/2011 09/28/20 11 Overview: Continue triple therapy Acute gastritis without mention of hemorrhage 01/20/20 11 09/15/2017 Renal insufficiency 11/16/2010 09/28/20 11 Overview: Na Bicarb at cath. 05/30 BUN/Creat 01/12.15 Diabetes mellitus without complication 07/08/2007 02/16/2016 Overview: - Accuchecks and DM diet - Sliding scale insulin. -HBa1c -5.6%. 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 Macias, [facility] Dermatology Other seborrheic keratosis 02/17/2015 1 01/07/2018 Overview: Dr. Tee Clemons, Dermatology Neoplasm of uncertain behavior of skin 02/17/2015 11/06/2018 Overview: Behind right mid ear Dr. Tee Clemons, Dermatology Hemangioma of skin and subcutaneous tissue 02/17/2015 02/16/2016 Overview: Dr. Tee Clemons, Dermatology Pain in joint, shoulder region 02/12/2015 02/16/2016 Rotator cuff (capsule) sprain 12/28/2014 12/28/2014 Rotator cuff tear, right 10/21/2012 Chest pain 04/07/2012 02/16/2016 Overview: Unstable angina vs NSTEMI Multiple admissions for NSTEMI and unstable angina Stress test in Sep 2015 negative Zack negative Plan: - Consider C if symptoms get worse Hyperlipidemia 04/07/2012 02/19/2017 DM (diabetes mellitus) 04/07/201202/15 SUMMARY 04/06/2012 09/15/2017 Overview: This is a 71 year old male with CAD (s/p PCI with DARCI in PDA and Ramus), DM, obesity and HTN who presents with typical CP over 12hrs. ECG shows mild diffuse concave ST elevation, less notable than his ECG in November 2011 when a LHC showed stable CAD. Enzymes at [facility] negative. Repeat enzymes pending. Plan - Cycle ECG/Enzymes-Negativef for AR - Aspirin/Clopidogrel/BB/Statin/ARB -Stress echo negative for ischemia, discharge 04/09 am. -04/09/2012 Stable DC home. Follow up with Dr Jones. DC home on same meds prior to admit except aspirin reduced from 325mg daily to 81mg daily. SUMMARY 11/24/2011 03/28/2012 Overview: This is a 71 year old male with CAD s/p PCI with DARCI in PDA and Ramus, DM, HTN who presents with atypical CP over the past 5 weeks 11/27 Intermittent chest discomfort all weekend despite negative enzymes, cath today SUMMARY 05/30/2011 09/28/2011 Overview: 72 year old man known to have HTN, DM, hypercholesterolaemia, CAD s/p DARCI to the [facility] 08/2009, DARCI to [place] 10/2010. He was admitted 05/2011 with chest pain but on repeat LHC was found to have patent stents. He was readmitted 03/2012 with chest pain but was negative for coronary ischaemia on stress echocardiogram evaluation and was medically optimised pre discharge He was admitted to an OSH on 08/24/2012 with sudden onset of chest pain at 10 AM while at a , his initial eval was negative for ACS and he has been transferred to [facility] for further evaluation and management. Started heparin,NTG last night for unstable angina. Cardiac cath - 08/27/2012 Successful PCI of Mid LAD with a 2.5 x 16 mm Promus Element DARCI H. pylori infection 05/30/2011 09/28/20 11 Overview: Continue triple therapy Acute gastritis without mention of hemorrhage 01/20/20 11 09/15/2017 Renal insufficiency 11/16/2010 09/28/20 11 Overview: Na Bicarb at cath. 05/30 BUN/Creat 01/12.15 Diabetes mellitus without complication 07/08/2007 02/16/2016 Overview: - Accuchecks and DM diet - Sliding scale insulin. -HBa1c -5.6%. 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 Macias, [facility] Dermatology Other seborrheic keratosis 02/17/2015 1 01/07/2018 Overview: Dr. Tee Clemons, Dermatology Neoplasm of uncertain behavior of skin 02/17/2015 11/06/2018 Overview: Behind right mid ear Dr. Tee Clemons, Dermatology Hemangioma of skin and subcutaneous tissue 02/17/2015 02/16/2016 Overview: Dr. Tee Clemons, Dermatology Pain in joint, shoulder region 02/12/2015 02/16/2016 Rotator cuff (capsule) sprain 12/28/2014 12/28/2014 Rotator cuff tear, right 10/21/2012 Chest pain 04/07/2012 02/16/2016 Overview: Unstable angina vs NSTEMI Multiple admissions for NSTEMI and unstable angina Stress test in Sep 2015 negative Z[facility] negative Plan: - Consider LHC if symptoms get worse Hyperlipidemia 04/07/2012 02/19/2017 DM (diabetes mellitus) 04/07/201202/15 SUMMARY 04/06/2012 09/15/2017 Overview: This is a 71 year old male with CAD (s/p PCI with DARCI in PDA and Ramus), DM, obesity and HTN who presents with typical CP over 12hrs. ECG shows mild diffuse concave ST elevation, less notable than his ECG in November 2011 when a LHC showed stable CAD. Enzymes at [facility] negative. Repeat enzymes pending. Plan - Cycle ECG/Enzymes-Negativef for AR - Aspirin/Clopidogrel/BB/Statin/ARB -Stress echo negative for ischemia, discharge 04/09 am. -04/09/2012 Stable DC home. Follow up with Dr Jones. DC home on same meds prior to admit except aspirin reduced from 325mg daily to 81mg daily. SUMMARY 11/24/2011 03/28/2012 Overview: This is a 71 year old male with CAD s/p PCI with DARCI in PDA and Ramus, DM, HTN who presents with atypical CP over the past 5 weeks 1/9 Intermittent chest discomfort all weekend despite negative enzymes, cath today SUMMARY 05/30/2011 09/28/2011 Overview: 72 year old man known to have HTN, DM, hypercholesterolaemia, CAD s/p DARCI to the [facility] 08/2009, DARCI to [place] 10/2010. He was admitted 05/2011 with chest pain but on repeat LHC was found to have patent stents. He was readmitted 03/2012 with chest pain but was negative for coronary ischaemia on stress echocardiogram evaluation and was medically optimised pre discharge He was admitted to an OSH on 08/24/2012 with sudden onset of chest pain at 10 AM while at a , his initial eval was negative for ACS and he has been transferred to [facility] for further evaluation and management. Started heparin,NTG last night for unstable angina. Cardiac cath - 08/27/2012 Successful PCI of Mid LAD with a 2.5 x 16 mm Promus Element DARCI H. pylori infection 05/30/2011 09/28/20 11 Overview: Continue triple therapy Acute gastritis without mention of hemorrhage 01/20/20 11 09/15/2017 Renal insufficiency 11/16/2010 09/28/20 11 Overview: Na Bicarb at cath. 05/30 BUN/Creat 01/12.15 Diabetes mellitus without complication 07/08/2007 02/16/2016 Overview: - Accuchecks and DM diet - Sliding scale insulin. -HBa1c -5.6%. 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 Macias, [facility] Dermatology Other seborrheic keratosis 02/17/2015 1 01/07/2018 Overview: Dr. Tee Clemons, Dermatology Neoplasm of uncertain behavior of skin 02/17/2015 11/06/2018 Overview: Behind right mid ear Dr. Tee Clemons, Dermatology Hemangioma of skin and subcutaneous tissue 02/17/2015 02/16/2016 Overview: Dr. Tee Clemons, Dermatology Pain in joint, shoulder region 02/12/2015 02/16/2016 Rotator cuff (capsule) sprain 12/28/2014 12/28/2014 Rotator cuff tear, right 10/21/2012 Chest pain 04/07/2012 02/16/2016 Overview: Unstable angina vs NSTEMI Multiple admissions for NSTEMI and unstable angina Stress test in Sep 2015 negative Zack negative Plan: - Consider LHC if symptoms get worse Hyperlipidemia 04/07/2012 02/19/2017 DM (diabetes mellitus) 04/07/201202/15 SUMMARY 04/06/2012 09/15/2017 Overview: This is a 71 year old male with CAD (s/p PCI with DARCI in PDA and Ramus), DM, obesity and HTN who presents with typical CP over 12hrs. ECG shows mild diffuse concave ST elevation, less notable than his ECG in November 2011 when a LHC showed stable CAD. Enzymes at [facility] negative. Repeat enzymes pending. Plan - Cycle ECG/Enzymes-Negativef for AR - Aspirin/Clopidogrel/BB/Statin/ARB -Stress echo negative for ischemia, discharge 04/09 am. -04/09/2012 Stable DC home. Follow up with Dr Jones. DC home on same meds prior to admit except aspirin reduced from 325mg daily to 81mg daily. SUMMARY 11/24/2011 03/28/2012 Overview: This is a 71 year old male with CAD s/p PCI with DARCI in PDA and Ramus, DM, HTN who presents with atypical CP over the past 5 weeks 11/27 Intermittent chest discomfort all weekend despite negative enzymes, cath today SUMMARY 05/30/2011 09/28/2011 Overview: 72 year old man known to have HTN, DM, hypercholesterolaemia, CAD s/p DARCI to the [facility] 08/2009, [place]ARCI to [place] 10/2010. He was admitted 05/2011 with chest pain but on repeat LHC was found to have patent stents. He was readmitted 03/2012 with chest pain but was negative for coronary ischaemia on stress echocardiogram evaluation and was medically optimised pre discharge He was admitted to an OSH on 08/24/2012 with sudden onset of chest pain at 10 AM while at a , his initial eval was negative for ACS and he has been transferred to [facility] for further evaluation and management. Started heparin,NTG last night for unstable angina. Cardiac cath - 08/27/2012 Successful PCI of Mid LAD with a 2.5 x 16 mm Promus Element DARCI H. pylori infection 05/30/2011 09/28/20 11 Overview: Continue triple therapy Acute gastritis without mention of hemorrhage 01/20/20 11 09/15/2017 Renal insufficiency 11/16/2010 09/28/20 11 Overview: Na Bicarb at cath. 05/30 BUN/Creat 01/12.15 Diabetes mellitus without complication 07/08/2007 02/16/2016 Overview: - Accuchecks and DM diet - Sliding scale insulin. -HBa1c -5.6%. 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/2017 Overview: Continue pravastatin Right lower quadrant pain documented as of this encounter (statuses as of 01/18/2024) [facility]-10-2023 History of Past illness Narrative* Problem Noted Date Diagnosed Date Resolved Date Acute diastolic heart failure 06/28/2023 12/20/2023 Cervicalgia 02/14/2023 12/20/2023 Cervical myofascial pain syndrome 02/12/2023 12/20/2023 Spinal stenosis, lumbar braulio on with neurogenic claudication 03/17/2020 05/12/2021 Neck pain 02/09/2020 05/12/2021 Spondylolisthesis of lumbar region 02/04/2020 06/28/2023 History of fusion of lumbar spine 02/04/2020 05/12/2021 History of fusion of cervical spine 02/04/2020 05/12/2021 Other persistent atrial fibrillation 09/08/2019 11/09/2020 Insomnia 08/21/2016 11/06/2018 Arthritis, midfoot 02/16/2016 Basal cell carcinoma 02/23/2015 018 Overview: Dr. Macias, [facility] Dermatology Other seborrheic keratosis 02/17/2015 1 01/07/2018 Overview: Dr. Tee Clemons, Dermatology Neoplasm of uncertain behavior of skin 02/17/2015 11/06/2018 Overview: Behind right mid ear Dr. Tee Clemons, Dermatology Hemangioma of skin and subcutaneous tissue 02/17/2015 02/16/2016 Overview: Dr. Tee Clemons, Dermatology Pain in joint, shoulder region 02/12/2015 02/16/2016 Rotator cuff (capsule) sprain 12/28/2014 12/28/2014 Rotator cuff tear, right 10/21/2012 Chest pain 04/07/2012 02/16/2016 Overview: Unstable angina vs NSTEMI Multiple admissions for NSTEMI and unstable angina Stress test in Sep 2015 negative Zack negative Plan: - Consider LHC if symptoms get worse Hyperlipidemia 04/07/2012 02/19/2017 DM (diabetes mellitus) 04/07/201202/15 SUMMARY 04/06/2012 09/15/2017 Overview: This is a 71 year old male with CAD (s/p PCI with DARCI in PDA and Ramus), DM, obesity and HTN who presents with typical CP over 12hrs. ECG shows mild diffuse concave ST elevation, less notable than his ECG in November 2011 when a LHC showed stable CAD. Enzymes at [place] negative. Repeat enzymes pending. Plan - Cycle ECG/Enzymes-Negativef for AR - Aspirin/Clopidogrel/BB/Statin/ARB -Stress echo negative for ischemia, discharge 04/09 am. -04/09/2012 Stable DC home. Follow up with Dr Jones. DC home on same meds prior to admit except aspirin reduced from 325mg daily to 81mg daily. SUMMARY 11/24/2011 03/28/2012 Overview: This is a 71 year old male with CAD s/p PCI with DARCI in PDA and Ramus, DM, HTN who presents with atypical CP over the past 5 weeks 11/27 Intermittent chest discomfort all weekend despite negative enzymes, cath today SUMMARY 05/30/2011 09/28/2011 Overview: 72 year old man known to have HTN, DM, hypercholesterolaemia, CAD s/p DARCI to the [place] 08/2009, DARCI to the [place] 10/2010. He was admitted 05/2011 with chest pain but on repeat LHC was found to have patent stents. He was readmitted 03/2012 with chest pain but was negative for coronary ischaemia on stress echocardiogram evaluation and was medically optimised pre discharge He was admitted to an OSH on 08/24/2012 with sudden onset of chest pain at 10 AM while at a , his initial eval was negative for ACS and he has been transferred to [facility] for further evaluation and management. Started heparin,NTG last night for unstable angina. Cardiac cath - 08/27/2012 Successful PCI of Mid LAD with a 2.5 x 16 mm Promus Element DARCI H. pylori infection 05/30/2011 09/28/20 11 Overview: Continue triple therapy Acute gastritis without mention of hemorrhage 01/20/20 11 09/15/2017 Renal insufficiency 11/16/2010 09/28/20 11 Overview: Na Bicarb at cath. 05/30 BUN/Creat 13/1.15 Diabetes mellitus without complication 07/08/2007 02/16/2016 Overview: - Accuchecks and DM diet - Sliding scale insulin. -HBa1c -5.6%. 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 Macias, [facility] Dermatology Other seborrheic keratosis 02/17/2015 1 01/07/2018 Overview: Dr. Tee Clemons, Dermatology Neoplasm of uncertain behavior of skin 02/17/2015 11/06/2018 Overview: Behind right mid ear Dr. Tee Clemons, Dermatology Hemangioma of skin and subcutaneous tissue 02/17/2015 02/16/2016 Overview: Dr. Tee Clemons, Dermatology Pain in joint, shoulder region 02/12/2015 02/16/2016 Rotator cuff (capsule) sprain 12/28/2014 12/28/2014 Rotator cuff tear, right 10/21/2012 Chest pain 04/07/2012 02/16/2016 Overview: Unstable angina vs NSTEMI Multiple admissions for NSTEMI and unstable angina Stress test in Sep 2015 negative Zack negative Plan: - Consider LHC if symptoms get worse Hyperlipidemia 04/07/2012 02/19/2017 DM (diabetes mellitus) 04/07/201202/15 SUMMARY 04/06/2012 09/15/2017 Overview: This is a 71 year old male with CAD (s/p PCI with DARCI in PDA and Ramus), DM, obesity and HTN who presents with typical CP over 12hrs. ECG shows mild diffuse concave ST elevation, less notable than his ECG in November 2011 when a LHC showed stable CAD. Enzymes at [place] negative. Repeat enzymes pending. Plan - Cycle ECG/Enzymes-Negativef for AR - Aspirin/Clopidogrel/BB/Statin/ARB -Stress echo negative for ischemia, discharge 04/09 am. -04/09/2012 Stable DC home. Follow up with Dr Jones. DC home on same meds prior to admit except aspirin reduced from 325mg daily to 81mg daily. SUMMARY 11/24/2011 03/28/2012 Overview: This is a 71 year old male with CAD s/p PCI with DARCI in PDA and Ramus, DM, HTN who presents with atypical CP over the past 5 weeks 11/27 Intermittent chest discomfort all weekend despite negative enzymes, cath today SUMMARY 05/30/2011 09/28/2011 Overview: 72 year old man known to have HTN, DM, hypercholesterolaemia, CAD s/p DARCI to the r[place] 08/2009, DARCI to the [place] 10/2010. He was admitted 05/2011 with chest pain but on repeat LHC was found to have patent stents. He was readmitted 03/2012 with chest pain but was negative for coronary ischaemia on stress echocardiogram evaluation and was medically optimised pre discharge He was admitted to an OSH on 08/24/2012 with sudden onset of chest pain at 10 AM while at a , his initial eval was negative for ACS and he has been transferred to [facility] for further evaluation and management. Started heparin,NTG last night for unstable angina. Cardiac cath - 08/27/2012 Successful PCI of Mid LAD with a 2.5 x 16 mm Promus Element DARCI H. pylori infection 05/30/2011 09/28/20 11 Overview: Continue triple therapy Acute gastritis without mention of hemorrhage 01/20/20 11 09/15/2017 Renal insufficiency 11/16/2010 09/28/20 11 Overview: Na Bicarb at cath. 05/30 BUN/Creat 01/12.15 Diabetes mellitus without complication 07/08/2007 02/16/2016 Overview: - Accuchecks and DM diet - Sliding scale insulin. -HBa1c -5.6%. 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/2017 Overview: Continue pravastatin Right lower quadrant pain documented as of this encounter (statuses as of 01/30/2024) [facility]08-10-2023 History of Past illness Narrative* Problem Noted Date Diagnosed Date Resolved Date Acute diastolic heart failure 06/28/2023 12/20/2023 Cervicalgia 02/14/2023 12/20/2023 Cervical myofascial pain syndrome 02/12/2023 12/20/2023 Spinal stenosis, lumbar braulio on with neurogenic claudication 03/17/2020 05/12/2021 Neck pain 02/09/2020 05/12/2021 Spondylolisthesis of lumbar region 02/04/2020 06/28/2023 History of fusion of lumbar spine 02/04/2020 05/12/2021 History of fusion of cervical spine 02/04/2020 05/12/2021 Other persistent atrial fibrillation 09/08/2019 11/09/2020 Insomnia 08/21/2016 11/06/2018 Arthritis, midfoot 02/16/2016 3 Basal cell carcinoma 02/23/2015 018 Overview: Dr. Macias, [facility] Dermatology Other seborrheic keratosis 02/17/2015 1 01/07/2018 Overview: Dr. Tee Clemons, Dermatology Neoplasm of uncertain behavior of skin 02/17/2015 11/06/2018 Overview: Behind right mid ear Dr. Tee Clemons, Dermatology Hemangioma of skin and subcutaneous tissue 02/17/2015 02/16/2016 Overview: Dr. Tee Clemons, Dermatology Pain in joint, shoulder region 02/12/2015 02/16/2016 Rotator cuff (capsule) sprain 12/28/2014 12/28/2014 Rotator cuff tear, right 10/21/2012 Chest pain 04/07/2012 02/16/2016 Overview: Unstable angina vs NSTEMI Multiple admissions for NSTEMI and unstable angina Stress test in Sep 2015 negative Zack negative Plan: - Consider LHC if symptoms get worse Hyperlipidemia 04/07/2012 02/19/2017 DM (diabetes mellitus) 04/07/201202/15 SUMMARY 04/06/2012 09/15/2017 Overview: This is a 71 year old male with CAD (s/p PCI with DARCI in PDA and Ramus), DM, obesity and HTN who presents with typical CP over 12hrs. ECG shows mild diffuse concave ST elevation, less notable than his ECG in November 2011 when a LHC showed stable CAD. Enzymes at [place] negative. Repeat enzymes pending. Plan - Cycle ECG/Enzymes-Negativef for AR - Aspirin/Clopidogrel/BB/Statin/ARB -Stress echo negative for ischemia, discharge 04/09 am. -04/09/2012 Stable DC home. Follow up with Dr Jones. DC home on same meds prior to admit except aspirin reduced from 325mg daily to 81mg daily. SUMMARY 11/24/2011 03/28/2012 Overview: This is a 71 year old male with CAD s/p PCI with DARCI in PDA and Ramus, DM, HTN who presents with atypical CP over the past 5 weeks 1/ Intermittent chest discomfort all weekend despite negative enzymes, cath today SUMMARY 05/30/2011 09/28/2011 Overview: 72 year old man known to have HTN, DM, hypercholesterolaemia, CAD s/p DARCI to the r[place] 08/2009, DARCI to [place] 10/2010. He was admitted 05/2011 with chest pain but on repeat LHC was found to have patent stents. He was readmitted 03/2012 with chest pain but was negative for coronary ischaemia on stress echocardiogram evaluation and was medically optimised pre discharge He was admitted to an OSH on 08/24/2012 with sudden onset of chest pain at 10 AM while at a , his initial eval was negative for ACS and he has been transferred to [facility] for further evaluation and management. Started heparin,NTG last night for unstable angina. Cardiac cath - 08/27/2012 Successful PCI of Mid LAD with a 2.5 x 16 mm Promus Element DARCI H. pylori infection 05/30/2011 09/28/20 11 Overview: Continue triple therapy Acute gastritis without mention of hemorrhage 01/20/20 11 09/15/2017 Renal insufficiency 11/16/2010 09/28/20 11 Overview: Na Bicarb at cath. 05/30 BUN/Creat 01/12.15 Diabetes mellitus without complication 07/08/2007 02/16/2016 Overview: - Accuchecks and DM diet - Sliding scale insulin. -HBa1c -5.6%. 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/2017 Overview: Continue pravastatin Right lower quadrant pain documented as of this encounter (statuses as of 02/04/2024) [facility]08-10-2023 History of Past illness Narrative* Problem Noted Date Diagnosed Date Resolved Date Acute diastolic heart failure 06/28/2023 12/20/2023 Cervicalgia 02/14/2023 12/20/2023 Cervical myofascial pain syndrome 02/12/2023 12/20/2023 Spinal stenosis, lumbar braulio on with neurogenic claudication 03/17/2020 05/12/2021 Neck pain 02/09/2020 05/12/2021 Spondylolisthesis of lumbar region 02/04/2020 06/28/2023 History of fusion of lumbar spine 02/04/2020 05/12/2021 History of fusion of cervical spine 02/04/2020 05/12/2021 Other persistent atrial fibrillation 09/08/2019 11/09/2020 Insomnia 08/21/2016 11/06/2018 Arthritis, midfoot 02/16/2016 3 Basal cell carcinoma 02/23/2015 018 Overview: Dr. Macias, [facility] Dermatology Other seborrheic keratosis 02/17/2015 1 01/07/2018 Overview: Dr. Tee Clemons, Dermatology Neoplasm of uncertain behavior of skin 02/17/2015 11/06/2018 Overview: Behind right mid ear Dr. Tee Clemons, Dermatology Hemangioma of skin and subcutaneous tissue 02/17/2015 02/16/2016 Overview: Dr. Tee Clemons, Dermatology Pain in joint, shoulder region 02/12/2015 02/16/2016 Rotator cuff (capsule) sprain 12/28/2014 12/28/2014 Rotator cuff tear, right 10/21/2012 Chest pain 04/07/2012 02/16/2016 Overview: Unstable angina vs NSTEMI Multiple admissions for NSTEMI and unstable angina Stress test in Sep 2015 negative Zack negative Plan: - Consider LHC if symptoms get worse Hyperlipidemia 04/07/2012 02/19/2017 DM (diabetes mellitus) 04/07/201202/15 SUMMARY 04/06/2012 09/15/2017 Overview: This is a 71 year old male with CAD (s/p PCI with DARCI in PDA and Ramus), DM, obesity and HTN who presents with typical CP over 12hrs. ECG shows mild diffuse concave ST elevation, less notable than his ECG in November 2011 when a LHC showed stable CAD. Enzymes at [place] negative. Repeat enzymes pending. Plan - Cycle ECG/Enzymes-Negativef for AR - Aspirin/Clopidogrel/BB/Statin/ARB -Stress echo negative for ischemia, discharge 04/09 am. -04/09/2012 Stable DC home. Follow up with Dr Jones. DC home on same meds prior to admit except aspirin reduced from 325mg daily to 81mg daily. SUMMARY 11/24/2011 03/28/2012 Overview: This is a 71 year old male with CAD s/p PCI with DARCI in PDA and Ramus, DM, HTN who presents with atypical CP over the past 5 weeks 11/27 Intermittent chest discomfort all weekend despite negative enzymes, cath today SUMMARY 05/30/2011 09/28/2011 Overview: 72 year old man known to have HTN, DM, hypercholesterolaemia, CAD s/p DARCI to the [place] 08/2009, DARCI to [place] 10/2010. He was admitted 05/2011 with chest pain but on repeat LHC was found to have patent stents. He was readmitted 03/2012 with chest pain but was negative for coronary ischaemia on stress echocardiogram evaluation and was medically optimised pre discharge He was admitted to an OSH on 08/24/2012 with sudden onset of chest pain at 10 AM while at a , his initial eval was negative for ACS and he has been transferred to [facility] for further evaluation and management. Started heparin,NTG last night for unstable angina. Cardiac cath - 08/27/2012 Successful PCI of Mid LAD with a 2.5 x 16 mm Promus Element DARCI H. pylori infection 05/30/2011 09/28/20 11 Overview: Continue triple therapy Acute gastritis without mention of hemorrhage 01/20/20 11 09/15/2017 Renal insufficiency 11/16/2010 09/28/20 11 Overview: Na Bicarb at cath. 05/30 BUN/Creat 01/12.15 Diabetes mellitus without complication 07/08/2007 02/16/2016 Overview: - Accuchecks and DM diet - Sliding scale insulin. -HBa1c -5.6%. 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/2017 Overview: Continue pravastatin Right lower quadrant pain documented as of this encounter (statuses as of 02/04/2024) [facility]08-10-2023 History of Past illness Narrative* Problem Noted Date Diagnosed Date Resolved Date Acute diastolic heart failure 06/28/2023 12/20/2023 Cervicalgia 02/14/2023 12/20/2023 Cervical myofascial pain syndrome 02/12/2023 12/20/2023 Spinal stenosis, lumbar braulio on with neurogenic claudication 03/17/2020 05/12/2021 Neck pain 02/09/2020 05/12/2021 Spondylolisthesis of lumbar region 02/04/2020 06/28/2023 History of fusion of lumbar spine 02/04/2020 05/12/2021 History of fusion of cervical spine 02/04/2020 05/12/2021 Other persistent atrial fibrillation 09/08/2019 11/09/2020 Insomnia 08/21/2016 11/06/2018 Arthritis, midfoot 02/16/2016 Basal cell carcinoma 02/23/2015 018 Overview: Dr. Macias, [facility] Dermatology Other seborrheic keratosis 02/17/2015 1 01/07/2018 Overview: Dr. Tee Clemons, Dermatology Neoplasm of uncertain behavior of skin 02/17/2015 11/06/2018 Overview: Behind right mid ear Dr. Tee Clemons, Dermatology Hemangioma of skin and subcutaneous tissue 02/17/2015 02/16/2016 Overview: Dr. Tee Clemons, Dermatology Pain in joint, shoulder region 02/12/2015 02/16/2016 Rotator cuff (capsule) sprain 12/28/2014 12/28/2014 Rotator cuff tear, right 10/21/2012 Chest pain 04/07/2012 02/16/2016 Overview: Unstable angina vs NSTEMI Multiple admissions for NSTEMI and unstable angina Stress test in Sep 2015 negative Zack negative Plan: - Consider LHC if symptoms get worse Hyperlipidemia 04/07/2012 02/19/2017 DM (diabetes mellitus) 04/07/201202/15 SUMMARY 04/06/2012 09/15/2017 Overview: This is a 71 year old male with CAD (s/p PCI with DARCI in PDA and Ramus), DM, obesity and HTN who presents with typical CP over 12hrs. ECG shows mild diffuse concave ST elevation, less notable than his ECG in November 2011 when a LHC showed stable CAD. Enzymes at [place] negative. Repeat enzymes pending. Plan - Cycle ECG/Enzymes-Negativef for AR - Aspirin/Clopidogrel/BB/Statin/ARB -Stress echo negative for ischemia, discharge 04/09 am. -04/09/2012 Stable DC home. Follow up with Dr Jones. DC home on same meds prior to admit except aspirin reduced from 325mg daily to 81mg daily. SUMMARY 11/24/2011 03/28/2012 Overview: This is a 71 year old male with CAD s/p PCI with DARCI in PDA and Ramus, DM, HTN who presents with atypical CP over the past 5 weeks 11/27 Intermittent chest discomfort all weekend despite negative enzymes, cath today SUMMARY 05/30/2011 09/28/2011 Overview: 72 year old man known to have HTN, DM, hypercholesterolaemia, CAD s/p DARCI to the r[facility] 08/2009, DARCI to the [place] 10/2010. He was admitted 05/2011 with chest pain but on repeat LHC was found to have patent stents. He was readmitted 03/2012 with chest pain but was negative for coronary ischaemia on stress echocardiogram evaluation and was medically optimised pre discharge He was admitted to an OSH on 08/24/2012 with sudden onset of chest pain at 10 AM while at a , his initial eval was negative for ACS and he has been transferred to [facility] for further evaluation and management. Started heparin,NTG last night for unstable angina. Cardiac cath - 08/27/2012 Successful PCI of Mid LAD with a 2.5 x 16 mm Promus Element DARCI H. pylori infection 05/30/2011 09/28/20 11 Overview: Continue triple therapy Acute gastritis without mention of hemorrhage 01/20/20 11 09/15/2017 Renal insufficiency 11/16/2010 09/28/20 11 Overview: Na Bicarb at cath. 05/30 BUN/Creat 13/1.15 Diabetes mellitus without complication 07/08/2007 02/16/2016 Overview: - Accuchecks and DM diet - Sliding scale insulin. -HBa1c -5.6%. 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/2017 Overview: Continue pravastatin Right lower quadrant pain documented as of this encounter (statuses as of 02/07/2024) [facility]08-10-2023 History of Past illness Narrative* Problem Noted Date Diagnosed Date Resolved Date Acute diastolic heart failure 06/28/2023 12/20/2023 Cervicalgia 02/14/2023 12/20/2023 Cervical myofascial pain syndrome 02/12/2023 12/20/2023 Spinal stenosis, lumbar braulio on with neurogenic claudication 03/17/2020 05/12/2021 Neck pain 02/09/2020 05/12/2021 Spondylolisthesis of lumbar region 02/04/2020 06/28/2023 History of fusion of lumbar spine 02/04/2020 05/12/2021 History of fusion of cervical spine 02/04/2020 05/12/2021 Other persistent atrial fibrillation 09/08/2019 11/09/2020 Insomnia 08/21/2016 11/06/2018 Arthritis, midfoot 02/16/2016 3 Basal cell carcinoma 02/23/2015 018 Overview: Dr. Macias, [facility] Dermatology Other seborrheic keratosis 02/17/2015 1 01/07/2018 Overview: Dr. Tee Clemons, Dermatology Neoplasm of uncertain behavior of skin 02/17/2015 11/06/2018 Overview: Behind right mid ear Dr. Tee Clemons, Dermatology Hemangioma of skin and subcutaneous tissue 02/17/2015 02/16/2016 Overview: Dr. Tee Clemons, Dermatology Pain in joint, shoulder region 02/12/2015 02/16/2016 Rotator cuff (capsule) sprain 12/28/2014 12/28/2014 Rotator cuff tear, right 10/21/2012 Chest pain 04/07/2012 02/16/2016 Overview: Unstable angina vs NSTEMI Multiple admissions for NSTEMI and unstable angina Stress test in Sep 2015 negative Zack negative Plan: - Consider LHC if symptoms get worse Hyperlipidemia 04/07/2012 02/19/2017 DM (diabetes mellitus) 04/07/201202/15 SUMMARY 04/06/2012 09/15/2017 Overview: This is a 71 year old male with CAD (s/p PCI with DARCI in PDA and Ramus), DM, obesity and HTN who presents with typical CP over 12hrs. ECG shows mild diffuse concave ST elevation, less notable than his ECG in November 2011 when a LHC showed stable CAD. Enzymes at [place] negative. Repeat enzymes pending. Plan - Cycle ECG/Enzymes-Negativef for AR - Aspirin/Clopidogrel/BB/Statin/ARB -Stress echo negative for ischemia, discharge 04/09 am. -04/09/2012 Stable DC home. Follow up with Dr Jones. DC home on same meds prior to admit except aspirin reduced from 325mg daily to 81mg daily. SUMMARY 11/24/2011 03/28/2012 Overview: This is a 71 year old male with CAD s/p PCI with DARCI in PDA and Ramus, DM, HTN who presents with atypical CP over the past 5 weeks 1/9 Intermittent chest discomfort all weekend despite negative enzymes, cath today SUMMARY 05/30/2011 09/28/2011 Overview: 72 year old man known to have HTN, DM, hypercholesterolaemia, CAD s/p DARCI to the r[facility] 08/2009, DARCI to the [place] 10/2010. He was admitted 05/2011 with chest pain but on repeat LHC was found to have patent stents. He was readmitted 03/2012 with chest pain but was negative for coronary ischaemia on stress echocardiogram evaluation and was medically optimised pre discharge He was admitted to an OSH on 08/24/2012 with sudden onset of chest pain at 10 AM while at a , his initial eval was negative for ACS and he has been transferred to [facility] for further evaluation and management. Started heparin,NTG last night for unstable angina. Cardiac cath - 08/27/2012 Successful PCI of Mid LAD with a 2.5 x 16 mm Promus Element DARCI H. pylori infection 05/30/2011 09/28/20 11 Overview: Continue triple therapy Acute gastritis without mention of hemorrhage 01/20/20 11 09/15/2017 Renal insufficiency 11/16/2010 09/28/20 11 Overview: Na Bicarb at cath. 05/30 BUN/Creat 01/12.15 Diabetes mellitus without complication 07/08/2007 02/16/2016 Overview: - Accuchecks and DM diet - Sliding scale insulin. -HBa1c -5.6%. 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 Macias, [facility] Dermatology Other seborrheic keratosis 02/17/2015 1 01/07/2018 Overview: Dr. Tee Clemons, Dermatology Neoplasm of uncertain behavior of skin 02/17/2015 11/06/2018 Overview: Behind right mid ear Dr. Tee Clemons, Dermatology Hemangioma of skin and subcutaneous tissue 02/17/2015 02/16/2016 Overview: Dr. Tee Clemons, Dermatology Pain in joint, shoulder region 02/12/2015 02/16/2016 Rotator cuff (capsule) sprain 12/28/2014 12/28/2014 Rotator cuff tear, right 10/21/2012 Chest pain 04/07/2012 02/16/2016 Overview: Unstable angina vs NSTEMI Multiple admissions for NSTEMI and unstable angina Stress test in Sep 2015 negative Zack negative Plan: - Consider LHC if symptoms get worse Hyperlipidemia 04/07/2012 02/19/2017 DM (diabetes mellitus) 04/07/201202/15 SUMMARY 04/06/2012 09/15/2017 Overview: This is a 71 year old male with CAD (s/p PCI with DARCI in PDA and Ramus), DM, obesity and HTN who presents with typical CP over 12hrs. ECG shows mild diffuse concave ST elevation, less notable than his ECG in November 2011 when a LHC showed stable CAD. Enzymes at [facility] negative. Repeat enzymes pending. Plan - Cycle ECG/Enzymes-Negativef for AR - Aspirin/Clopidogrel/BB/Statin/ARB -Stress echo negative for ischemia, discharge 04/09 am. -04/09/2012 Stable DC home. Follow up with Dr Jones. DC home on same meds prior to admit except aspirin reduced from 325mg daily to 81mg daily. SUMMARY 11/24/2011 03/28/2012 Overview: This is a 71 year old male with CAD s/p PCI with DARCI in PDA and Ramus, DM, HTN who presents with atypical CP over the past 5 weeks 11/27 Intermittent chest discomfort all weekend despite negative enzymes, cath today SUMMARY 05/30/2011 09/28/2011 Overview: 72 year old man known to have HTN, DM, hypercholesterolaemia, CAD s/p DARCI to the [place] 08/2009, DARCI to the [place] 10/2010. He was admitted 05/2011 with chest pain but on repeat LHC was found to have patent stents. He was readmitted 03/2012 with chest pain but was negative for coronary ischaemia on stress echocardiogram evaluation and was medically optimised pre discharge He was admitted to an OSH on 08/24/2012 with sudden onset of chest pain at 10 AM while at a , his initial eval was negative for ACS and he has been transferred to [facility] for further evaluation and management. Started heparin,NTG last night for unstable angina. Cardiac cath - 08/27/2012 Successful PCI of Mid LAD with a 2.5 x 16 mm Promus Element DARCI H. pylori infection 05/30/2011 09/28/20 11 Overview: Continue triple therapy Acute gastritis without mention of hemorrhage 01/20/20 11 09/15/2017 Renal insufficiency 11/16/2010 09/28/20 11 Overview: Na Bicarb at cath. 05/30 BUN/Creat 01/12.15 Diabetes mellitus without complication 07/08/2007 02/16/2016 Overview: - Accuchecks and DM diet - Sliding scale insulin. -HBa1c -5.6%. 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/2017 Overview: Continue pravastatin Right lower quadrant pain documented as of this encounter (statuses as of 02/20/2024) [facility]08-10-2023 History of Past illness Narrative* Problem Noted Date Diagnosed Date Resolved Date Acute diastolic heart failure 06/28/2023 12/20/2023 Cervicalgia 02/14/2023 12/20/2023 Cervical myofascial pain syndrome 02/12/2023 12/20/2023 Spinal stenosis, lumbar braulio on with neurogenic claudication 03/17/2020 05/12/2021 Neck pain 02/09/2020 05/12/2021 Spondylolisthesis of lumbar region 02/04/2020 06/28/2023 History of fusion of lumbar spine 02/04/2020 05/12/2021 History of fusion of cervical spine 02/04/2020 05/12/2021 Other persistent atrial fibrillation 09/08/2019 11/09/2020 Insomnia 08/21/2016 11/06/2018 Arthritis, midfoot 02/16/2016 Basal cell carcinoma 02/23/2015 018 Overview: Dr. Macias, [facility] Dermatology Other seborrheic keratosis 02/17/2015 1 01/07/2018 Overview: Dr. Tee Clemons, Dermatology Neoplasm of uncertain behavior of skin 02/17/2015 11/06/2018 Overview: Behind right mid ear Dr. Tee Clemons, Dermatology Hemangioma of skin and subcutaneous tissue 02/17/2015 02/16/2016 Overview: Dr. Tee Clemons, Dermatology Pain in joint, shoulder region 02/12/2015 02/16/2016 Rotator cuff (capsule) sprain 12/28/2014 12/28/2014 Rotator cuff tear, right 10/21/2012 Chest pain 04/07/2012 02/16/2016 Overview: Unstable angina vs NSTEMI Multiple admissions for NSTEMI and unstable angina Stress test in Sep 2015 negative Zack negative Plan: - Consider LHC if symptoms get worse Hyperlipidemia 04/07/2012 02/19/2017 DM (diabetes mellitus) 04/07/201202/15 SUMMARY 04/06/2012 09/15/2017 Overview: This is a 71 year old male with CAD (s/p PCI with DARCI in PDA and Ramus), DM, obesity and HTN who presents with typical CP over 12hrs. ECG shows mild diffuse concave ST elevation, less notable than his ECG in November 2011 when a LHC showed stable CAD. Enzymes at [facility] negative. Repeat enzymes pending. Plan - Cycle ECG/Enzymes-Negativef for AR - Aspirin/Clopidogrel/BB/Statin/ARB -Stress echo negative for ischemia, discharge 04/09 am. -04/09/2012 Stable DC home. Follow up with Dr Jones. DC home on same meds prior to admit except aspirin reduced from 325mg daily to 81mg daily. SUMMARY 11/24/2011 03/28/2012 Overview: This is a 71 year old male with CAD s/p PCI with DARCI in PDA and Ramus, DM, HTN who presents with atypical CP over the past 5 weeks 11/27 Intermittent chest discomfort all weekend despite negative enzymes, cath today SUMMARY 05/30/2011 09/28/2011 Overview: 72 year old man known to have HTN, DM, hypercholesterolaemia, CAD s/p DARCI to the r[place] 08/2009, DARCI to the [place] 10/2010. He was admitted 05/2011 with chest pain but on repeat LHC was found to have patent stents. He was readmitted 03/2012 with chest pain but was negative for coronary ischaemia on stress echocardiogram evaluation and was medically optimised pre discharge He was admitted to an OSH on 08/24/2012 with sudden onset of chest pain at 10 AM while at a , his initial eval was negative for ACS and he has been transferred to [facility] for further evaluation and management. Started heparin,NTG last night for unstable angina. Cardiac cath - 08/27/2012 Successful PCI of Mid LAD with a 2.5 x 16 mm Promus Element DARCI H. pylori infection 05/30/2011 09/28/20 11 Overview: Continue triple therapy Acute gastritis without mention of hemorrhage 01/20/20 11 09/15/2017 Renal insufficiency 11/16/2010 09/28/20 11 Overview: Na Bicarb at cath. 05/30 BUN/Creat 13/.15 Diabetes mellitus without complication 07/08/2007 02/16/2016 Overview: - Accuchecks and DM diet - Sliding scale insulin. -HBa1c -5.6%. 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/2017 Overview: Continue pravastatin Right lower quadrant pain documented as of this encounter (statuses as of 02/20/2024) [facility]08-10-2023 History of Past illness Narrative* Problem Noted Date Diagnosed Date Resolved Date Acute diastolic heart failure 06/28/2023 12/20/2023 Cervicalgia 02/14/2023 12/20/2023 Cervical myofascial pain syndrome 02/12/2023 12/20/2023 Spinal stenosis, lumbar braulio on with neurogenic claudication 03/17/2020 05/12/2021 Neck pain 02/09/2020 05/12/2021 Spondylolisthesis of lumbar region 02/04/2020 06/28/2023 History of fusion of lumbar spine 02/04/2020 05/12/2021 History of fusion of cervical spine 02/04/2020 05/12/2021 Other persistent atrial fibrillation 09/08/2019 11/09/2020 Insomnia 08/21/2016 11/06/2018 Arthritis, midfoot 02/16/2016 3 Basal cell carcinoma 02/23/2015 018 Overview: Dr. Macias, [facility] Dermatology Other seborrheic keratosis 02/17/2015 1 01/07/2018 Overview: Dr. Tee Clemons, Dermatology Neoplasm of uncertain behavior of skin 02/17/2015 11/06/2018 Overview: Behind right mid ear Dr. Tee Clemons, Dermatology Hemangioma of skin and subcutaneous tissue 02/17/2015 02/16/2016 Overview: Dr. Tee Clemons, Dermatology Pain in joint, shoulder region 02/12/2015 02/16/2016 Rotator cuff (capsule) sprain 12/28/2014 12/28/2014 Rotator cuff tear, right 10/21/2012 Chest pain 04/07/2012 02/16/2016 Overview: Unstable angina vs NSTEMI Multiple admissions for NSTEMI and unstable angina Stress test in Sep 2015 negative Zack negative Plan: - Consider LHC if symptoms get worse Hyperlipidemia 04/07/2012 02/19/2017 DM (diabetes mellitus) 04/07/201202/15 SUMMARY 04/06/2012 09/15/2017 Overview: This is a 71 year old male with CAD (s/p PCI with DARCI in PDA and Ramus), DM, obesity and HTN who presents with typical CP over 12hrs. ECG shows mild diffuse concave ST elevation, less notable than his ECG in November 2011 when a LHC showed stable CAD. Enzymes at [facility] negative. Repeat enzymes pending. Plan - Cycle ECG/Enzymes-Negativef for AR - Aspirin/Clopidogrel/BB/Statin/ARB -Stress echo negative for ischemia, discharge 04/09 am. -04/09/2012 Stable DC home. Follow up with Dr Jones. DC home on same meds prior to admit except aspirin reduced from 325mg daily to 81mg daily. SUMMARY 11/24/2011 03/28/2012 Overview: This is a 71 year old male with CAD s/p PCI with DARCI in PDA and Ramus, DM, HTN who presents with atypical CP over the past 5 weeks 11/27 Intermittent chest discomfort all weekend despite negative enzymes, cath today SUMMARY 05/30/2011 09/28/2011 Overview: 72 year old man known to have HTN, DM, hypercholesterolaemia, CAD s/p DARCI to the r[place] 08/2009, DARCI to the [place] 10/2010. He was admitted 05/2011 with chest pain but on repeat LHC was found to have patent stents. He was readmitted 03/2012 with chest pain but was negative for coronary ischaemia on stress echocardiogram evaluation and was medically optimised pre discharge He was admitted to an OSH on 08/24/2012 with sudden onset of chest pain at 10 AM while at a , his initial eval was negative for ACS and he has been transferred to [facility] for further evaluation and management. Started heparin,NTG last night for unstable angina. Cardiac cath - 08/27/2012 Successful PCI of Mid LAD with a 2.5 x 16 mm Promus Element DARCI H. pylori infection 05/30/2011 09/28/20 11 Overview: Continue triple therapy Acute gastritis without mention of hemorrhage 01/20/20 11 09/15/2017 Renal insufficiency 11/16/2010 09/28/20 11 Overview: Na Bicarb at cath. 05/30 BUN/Creat 01/12.15 Diabetes mellitus without complication 07/08/2007 02/16/2016 Overview: - Accuchecks and DM diet - Sliding scale insulin. -HBa1c -5.6%. 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/2017 Overview: Continue pravastatin Right lower quadrant pain documented as of this encounter (statuses as of 02/21/2024) [facility]08-10-2023 History of Past illness Narrative* Problem Noted Date Diagnosed Date Resolved Date Acute diastolic heart failure 06/28/2023 12/20/2023 Cervicalgia 02/14/2023 12/20/2023 Cervical myofascial pain syndrome 02/12/2023 12/20/2023 Spinal stenosis, lumbar braulio on with neurogenic claudication 03/17/2020 05/12/2021 Neck pain 02/09/2020 05/12/2021 Spondylolisthesis of lumbar region 02/04/2020 06/28/2023 History of fusion of lumbar spine 02/04/2020 05/12/2021 History of fusion of cervical spine 02/04/2020 05/12/2021 Other persistent atrial fibrillation 09/08/2019 11/09/2020 Insomnia 08/21/2016 11/06/2018 Arthritis, midfoot 02/16/2016 Basal cell carcinoma 02/23/2015 018 Overview: Dr. Macias, [facility] Dermatology Other seborrheic keratosis 02/17/2015 1 01/07/2018 Overview: Dr. Tee Clemons, Dermatology Neoplasm of uncertain behavior of skin 02/17/2015 11/06/2018 Overview: Behind right mid ear Dr. Tee Clemons, Dermatology Hemangioma of skin and subcutaneous tissue 02/17/2015 02/16/2016 Overview: Dr. Tee Clemons, Dermatology Pain in joint, shoulder region 02/12/2015 02/16/2016 Rotator cuff (capsule) sprain 12/28/2014 12/28/2014 Rotator cuff tear, right 10/21/2012 Chest pain 04/07/2012 02/16/2016 Overview: Unstable angina vs NSTEMI Multiple admissions for NSTEMI and unstable angina Stress test in Sep 2015 negative Zack negative Plan: - Consider LHC if symptoms get worse Hyperlipidemia 04/07/2012 02/19/2017 DM (diabetes mellitus) 04/07/201202/15 SUMMARY 04/06/2012 09/15/2017 Overview: This is a 71 year old male with CAD (s/p PCI with DARCI in PDA and Ramus), DM, obesity and HTN who presents with typical CP over 12hrs. ECG shows mild diffuse concave ST elevation, less notable than his ECG in November 2011 when a LHC showed stable CAD. Enzymes at [facility] negative. Repeat enzymes pending. Plan - Cycle ECG/Enzymes-Negativef for AR - Aspirin/Clopidogrel/BB/Statin/ARB -Stress echo negative for ischemia, discharge 04/09 am. -04/09/2012 Stable DC home. Follow up with Dr Jones. DC home on same meds prior to admit except aspirin reduced from 325mg daily to 81mg daily. SUMMARY 11/24/2011 03/28/2012 Overview: This is a 71 year old male with CAD s/p PCI with DARCI in PDA and Ramus, DM, HTN who presents with atypical CP over the past 5 weeks 11/27 Intermittent chest discomfort all weekend despite negative enzymes, cath today SUMMARY 05/30/2011 09/28/2011 Overview: 72 year old man known to have HTN, DM, hypercholesterolaemia, CAD s/p DARCI to the [place] 08/2009, DARCI to the [place] 10/2010. He was admitted 05/2011 with chest pain but on repeat LHC was found to have patent stents. He was readmitted 03/2012 with chest pain but was negative for coronary ischaemia on stress echocardiogram evaluation and was medically optimised pre discharge He was admitted to an OSH on 08/24/2012 with sudden onset of chest pain at 10 AM while at a , his initial eval was negative for ACS and he has been transferred to [facility] for further evaluation and management. Started heparin,NTG last night for unstable angina. Cardiac cath - 08/27/2012 Successful PCI of Mid LAD with a 2.5 x 16 mm Promus Element DARCI H. pylori infection 05/30/2011 09/28/20 11 Overview: Continue triple therapy Acute gastritis without mention of hemorrhage 01/20/20 11 09/15/2017 Renal insufficiency 11/16/2010 09/28/20 11 Overview: Liana Turk at cath. 05/30 BUN/Creat 13.15 Diabetes mellitus without complication 07/08/2007 02/16/2016 Overview: - Accuchecks and DM diet - Sliding scale insulin. -HBa1c -5.6%. 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/2017 Overview: Continue pravastatin Right lower quadrant pain documented as of this encounter (statuses as of 02/22/2024) [facility]08-10-2023 History of Past illness Narrative* Problem Noted Date Diagnosed Date Resolved Date Acute diastolic heart failure 06/28/2023 12/20/2023 Cervicalgia 02/14/2023 12/20/2023 Cervical myofascial pain syndrome 02/12/2023 12/20/2023 Spinal stenosis, lumbar braulio on with neurogenic claudication 03/17/2020 05/12/2021 Neck pain 02/09/2020 05/12/2021 Spondylolisthesis of lumbar region 02/04/2020 06/28/2023 History of fusion of lumbar spine 02/04/2020 05/12/2021 History of fusion of cervical spine 02/04/2020 05/12/2021 Other persistent atrial fibrillation 09/08/2019 11/09/2020 Insomnia 08/21/2016 11/06/2018 Arthritis, midfoot 02/16/2016 Basal cell carcinoma 02/23/2015 018 Overview: Dr. Macias, [facility] Dermatology Other seborrheic keratosis 02/17/2015 1 01/07/2018 Overview: Dr. Tee Clemons, Dermatology Neoplasm of uncertain behavior of skin 02/17/2015 11/06/2018 Overview: Behind right mid ear Dr. Tee Clemons, Dermatology Hemangioma of skin and subcutaneous tissue 02/17/2015 02/16/2016 Overview: Dr. Tee Clemons, Dermatology Pain in joint, shoulder region 02/12/2015 02/16/2016 Rotator cuff (capsule) sprain 12/28/2014 12/28/2014 Rotator cuff tear, right 10/21/2012 Chest pain 04/07/2012 02/16/2016 Overview: Unstable angina vs NSTEMI Multiple admissions for NSTEMI and unstable angina Stress test in Sep 2015 negative Zack negative Plan: - Consider LHC if symptoms get worse Hyperlipidemia 04/07/2012 02/19/2017 DM (diabetes mellitus) 04/07/201202/15 SUMMARY 04/06/2012 09/15/2017 Overview: This is a 71 year old male with CAD (s/p PCI with DARCI in PDA and Ramus), DM, obesity and HTN who presents with typical CP over 12hrs. ECG shows mild diffuse concave ST elevation, less notable than his ECG in November 2011 when a LHC showed stable CAD. Enzymes at [facility] negative. Repeat enzymes pending. Plan - Cycle ECG/Enzymes-Negativef for AR - Aspirin/Clopidogrel/BB/Statin/ARB -Stress echo negative for ischemia, discharge 04/09 am. -04/09/2012 Stable DC home. Follow up with Dr Jones. DC home on same meds prior to admit except aspirin reduced from 325mg daily to 81mg daily. SUMMARY 11/24/2011 03/28/2012 Overview: This is a 71 year old male with CAD s/p PCI with DARCI in PDA and Ramus, DM, HTN who presents with atypical CP over the past 5 weeks 11/27 Intermittent chest discomfort all weekend despite negative enzymes, cath today SUMMARY 05/30/2011 09/28/2011 Overview: 72 year old man known to have HTN, DM, hypercholesterolaemia, CAD s/p DARCI to the r[facility] 08/2009, DARCI to the [place] 10/2010. He was admitted 05/2011 with chest pain but on repeat LHC was found to have patent stents. He was readmitted 03/2012 with chest pain but was negative for coronary ischaemia on stress echocardiogram evaluation and was medically optimised pre discharge He was admitted to an OSH on 08/24/2012 with sudden onset of chest pain at 10 AM while at a , his initial eval was negative for ACS and he has been transferred to [facility] for further evaluation and management. Started heparin,NTG last night for unstable angina. Cardiac cath - 08/27/2012 Successful PCI of Mid LAD with a 2.5 x 16 mm Promus Element DARCI H. pylori infection 05/30/2011 09/28/20 11 Overview: Continue triple therapy Acute gastritis without mention of hemorrhage 01/20/20 11 09/15/2017 Renal insufficiency 11/16/2010 09/28/20 11 Overview: Na Bicarb at cath. 05/30 BUN/Creat 13/.15 Diabetes mellitus without complication 07/08/2007 02/16/2016 Overview: - Accuchecks and DM diet - Sliding scale insulin. -HBa1c -5.6%. 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/2017 Overview: Continue pravastatin Right lower quadrant pain documented as of this encounter (statuses as of 02/25/2024) [facility]08-10-2023 History of Past illness Narrative* Problem Noted Date Diagnosed Date Resolved Date Acute diastolic heart failure 06/28/2023 12/20/2023 Cervicalgia 02/14/2023 12/20/2023 Cervical myofascial pain syndrome 02/12/2023 12/20/2023 Spinal stenosis, lumbar braulio on with neurogenic claudication 03/17/2020 05/12/2021 Neck pain 02/09/2020 05/12/2021 Spondylolisthesis of lumbar region 02/04/2020 06/28/2023 History of fusion of lumbar spine 02/04/2020 05/12/2021 History of fusion of cervical spine 02/04/2020 05/12/2021 Other persistent atrial fibrillation 09/08/2019 11/09/2020 Insomnia 08/21/2016 11/06/2018 Arthritis, midfoot 02/16/2016 3 Basal cell carcinoma 02/23/2015 018 Overview: Dr. Macias, [facility] Dermatology Other seborrheic keratosis 02/17/2015 1 01/07/2018 Overview: Dr. Tee Clemons, Dermatology Neoplasm of uncertain behavior of skin 02/17/2015 11/06/2018 Overview: Behind right mid ear Dr. Tee Clemons, Dermatology Hemangioma of skin and subcutaneous tissue 02/17/2015 02/16/2016 Overview: Dr. Tee Clemons, Dermatology Pain in joint, shoulder region 02/12/2015 02/16/2016 Rotator cuff (capsule) sprain 12/28/2014 12/28/2014 Rotator cuff tear, right 10/21/2012 Chest pain 04/07/2012 02/16/2016 Overview: Unstable angina vs NSTEMI Multiple admissions for NSTEMI and unstable angina Stress test in Sep 2015 negative Zack negative Plan: - Consider LHC if symptoms get worse Hyperlipidemia 04/07/2012 02/19/2017 DM (diabetes mellitus) 04/07/201202/15 SUMMARY 04/06/2012 09/15/2017 Overview: This is a 71 year old male with CAD (s/p PCI with DARCI in PDA and Ramus), DM, obesity and HTN who presents with typical CP over 12hrs. ECG shows mild diffuse concave ST elevation, less notable than his ECG in November 2011 when a LHC showed stable CAD. Enzymes at [facility] negative. Repeat enzymes pending. Plan - Cycle ECG/Enzymes-Negativef for AR - Aspirin/Clopidogrel/BB/Statin/ARB -Stress echo negative for ischemia, discharge 04/09 am. -04/09/2012 Stable DC home. Follow up with Dr Jones. DC home on same meds prior to admit except aspirin reduced from 325mg daily to 81mg daily. SUMMARY 11/24/2011 03/28/2012 Overview: This is a 71 year old male with CAD s/p PCI with DARCI in PDA and Ramus, DM, HTN who presents with atypical CP over the past 5 weeks / Intermittent chest discomfort all weekend despite negative enzymes, cath today SUMMARY 05/30/2011 09/28/2011 Overview: 72 year old man known to have HTN, DM, hypercholesterolaemia, CAD s/p DARCI to the [facility] 08/2009, DARCI to the [place] 10/2010. He was admitted 05/2011 with chest pain but on repeat LHC was found to have patent stents. He was readmitted 03/2012 with chest pain but was negative for coronary ischaemia on stress echocardiogram evaluation and was medically optimised pre discharge He was admitted to an OSH on 08/24/2012 with sudden onset of chest pain at 10 AM while at a , his initial eval was negative for ACS and he has been transferred to [facility] for further evaluation and management. Started heparin,NTG last night for unstable angina. Cardiac cath - 08/27/2012 Successful PCI of Mid LAD with a 2.5 x 16 mm Promus Element DARCI H. pylori infection 05/30/2011 09/28/20 11 Overview: Continue triple therapy Acute gastritis without mention of hemorrhage 01/20/20 11 09/15/2017 Renal insufficiency 11/16/2010 09/28/20 11 Overview: Na Bicarb at cath. 05/30 BUN/Creat 01/12.15 Diabetes mellitus without complication 07/08/2007 02/16/2016 Overview: - Accuchecks and DM diet - Sliding scale insulin. -HBa1c -5.6%. 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/2017 Overview: Continue pravastatin Right lower quadrant pain documented as of this encounter (statuses as of 02/25/2024) [facility]08-10-2023 History of Past illness Narrative* Problem Noted Date Diagnosed Date Resolved Date Acute diastolic heart failure 06/28/2023 12/20/2023 Cervicalgia 02/14/2023 12/20/2023 Cervical myofascial pain syndrome 02/12/2023 12/20/2023 Spinal stenosis, lumbar braulio on with neurogenic claudication 03/17/2020 05/12/2021 Neck pain 02/09/2020 05/12/2021 Spondylolisthesis of lumbar region 02/04/2020 06/28/2023 History of fusion of lumbar spine 02/04/2020 05/12/2021 History of fusion of cervical spine 02/04/2020 05/12/2021 Other persistent atrial fibrillation 09/08/2019 11/09/2020 Insomnia 08/21/2016 11/06/2018 Arthritis, midfoot 02/16/2016 3 Basal cell carcinoma 02/23/2015 018 Overview: Dr. Macias, [facility] Dermatology Other seborrheic keratosis 02/17/2015 1 01/07/2018 Overview: Dr. Tee Clemons, Dermatology Neoplasm of uncertain behavior of skin 02/17/2015 11/06/2018 Overview: Behind right mid ear Dr. Tee Clemons, Dermatology Hemangioma of skin and subcutaneous tissue 02/17/2015 02/16/2016 Overview: Dr. Tee Clemons, Dermatology Pain in joint, shoulder region 02/12/2015 02/16/2016 Rotator cuff (capsule) sprain 12/28/2014 12/28/2014 Rotator cuff tear, right 10/21/2012 Chest pain 04/07/2012 02/16/2016 Overview: Unstable angina vs NSTEMI Multiple admissions for NSTEMI and unstable angina Stress test in Sep 2015 negative Zack negative Plan: - Consider LHC if symptoms get worse Hyperlipidemia 04/07/2012 02/19/2017 DM (diabetes mellitus) 04/07/201202/15 SUMMARY 04/06/2012 09/15/2017 Overview: This is a 71 year old male with CAD (s/p PCI with DARCI in PDA and Ramus), DM, obesity and HTN who presents with typical CP over 12hrs. ECG shows mild diffuse concave ST elevation, less notable than his ECG in November 2011 when a LHC showed stable CAD. Enzymes at [facility] negative. Repeat enzymes pending. Plan - Cycle ECG/Enzymes-Negativef for AR - Aspirin/Clopidogrel/BB/Statin/ARB -Stress echo negative for ischemia, discharge 04/09 am. -04/09/2012 Stable DC home. Follow up with Dr Jones. DC home on same meds prior to admit except aspirin reduced from 325mg daily to 81mg daily. SUMMARY 11/24/2011 03/28/2012 Overview: This is a 71 year old male with CAD s/p PCI with DARCI in PDA and Ramus, DM, HTN who presents with atypical CP over the past 5 weeks 1/9 Intermittent chest discomfort all weekend despite negative enzymes, cath today SUMMARY 05/30/2011 09/28/2011 Overview: 72 year old man known to have HTN, DM, hypercholesterolaemia, CAD s/p DARCI to the [facility] 08/2009, [place]ARCI to [place] 10/2010. He was admitted 05/2011 with chest pain but on repeat LHC was found to have patent stents. He was readmitted 03/2012 with chest pain but was negative for coronary ischaemia on stress echocardiogram evaluation and was medically optimised pre discharge He was admitted to an OSH on 08/24/2012 with sudden onset of chest pain at 10 AM while at a , his initial eval was negative for ACS and he has been transferred to [facility] for further evaluation and management. Started heparin,NTG last night for unstable angina. Cardiac cath - 08/27/2012 Successful PCI of Mid LAD with a 2.5 x 16 mm Promus Element DARCI H. pylori infection 05/30/2011 09/28/20 11 Overview: Continue triple therapy Acute gastritis without mention of hemorrhage 01/20/20 11 09/15/2017 Renal insufficiency 11/16/2010 09/28/20 11 Overview: Na Bicarb at cath. 05/30 BUN/Creat 01/12.15 Diabetes mellitus without complication 07/08/2007 02/16/2016 Overview: - Accuchecks and DM diet - Sliding scale insulin. -HBa1c -5.6%. 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/2017 Overview: Continue pravastatin Right lower quadrant pain documented as of this encounter (statuses as of 02/28/2024) [facility]08-06-2023 Discharge summary Author Koffi Rome [facility] June 24, 2023 11:10am Note Date/Time June 24, 2023 9:0 9am [facility] Medical Records Department [address] [place] [address] Emergency Department Summary 06/24/23 MR#: [id number] Acct: [id number] Name: JG CHAHAL Rep #:[id number] : 1940 82 From: Koffi Rome DO PCP: Dr. Galindo Yuan MD Status:R EG ER Location: ED HPI History of Present Illness Chief Complaint: Chest Pain Narrative Narrative: 82-year-old male with CAD, multiple cardiac stents, A-fib, hypertension, CKD presenting with an episode of chest pain which she described as achy. Episode started about 645 this morning while he was seated in exam which. He took a bite and became nauseous and diaphoretic. states he did not look pale. Patient got up from the table and went to sit down the living room. He took a nitroglycerin which eased the pain. He states he felt short of breath but this episode not not typical for him. Recently had clean cardiac catheterization by Dr. Bah. Patient anticoagulated on Eliquis for A-fib history. Patient states chest pain is improved. His shortness of breath is improved. He states he is no longer sweaty and nauseous PFSH PFS Medical History Ambulates with cane Arthritis Back pain Cancer Cardiology follow-up encounter CPAP (continuous positive airway pressure) dependence Diabetes Excessive bleeding Gastric reflux History of echocardiogram History of renal disease History of stress test Hypertension Non-smoker Restless legs Sleep apnea Wears dentures Home Medications apixaban 5 mg tablet (Eliquis) 5 mg PO BID BLOOD THINNER 05/18/16 [History Last Taken 01/29/22] atorvastatin 40 mg tablet 40 mg PO QHS CHOLESTEROL 05/18/16 [History Last Taken 01/31/22] cholecalciferol (vitamin D3) 25 mcg (1,000 unit) tablet (Vitamin D3) 1,000 unit PO DAILY SUPPLEMENT 05/18/16 [History Last Taken 01/27/22] pantoprazole 40 mg tablet,delayed release 40 mg PO DAILY GERD 05/18/16 [History Last Taken 01/31/22] nitroglycerin 0.4 mg sublingual tablet 0.4 mg sublingual Q5M PRN Chest Pain ##1 05/23/16 [Rx Last Taken 01/31/22] cyanocobalamin (vitamin B-12) 500 mcg tablet (B-12 DOTS) 1,000 mcg PO DAILY@0800SUPPLEMENT 11/23/16 [History Last Taken 01/27/22] metoprolol succinate 25 mg tablet,extended release 24 hr 50 mg PO DAILY BP 06/24/17 [History Last Taken 01/31/22] sennosides 8.6 mg-docusate sodium 50 mg tablet (Stool Softener-Stimulant Laxative) 2 tab PO DAILY STOOL SOFTENER 06/24/17 [History Last Taken 01/31/22] losartan 50 mg tablet 50 mg PO DAILY BP 09/18/17 [History Last Taken 01/31/22] amlodipine 5 mg tablet 5 mg PO DAILY BP 01/18/22 [History Last Taken 01/31/22] dofetilide 250 mcg capsule 250 mcg PO Q12 HEART RATE 01/18/22 [History Last Taken 01/31/22] magnesium oxide 400 mg (241.3 mg magnesium) tablet 400 mg PO DAILYCM SUPPLEMENT 01/18/22 [History Last Taken 01/27/22] melatonin 3 mg tablet 3 mg PO QHS SLEEP 01/18/22 [History Last Taken 01/31/22] acetaminophen 500 mg tablet 1,000 mg (2 x 500 mg) PO Q8 14 days #84 tabs 02/02/22 [Rx Last Taken Unknown] tramadol 50 mg tablet 50 - 100 mg (1 - 2 x 50 mg) PO Q6H PRN PRN Pain Score 4- 107 days #48 tabs 02/02/22 [Rx Last Taken Unknown] meclizine 25 mg tablet 25 mg PO BID PRN dizziness #20 tabs 08/08/22 [Rx Last Taken Unknown] Allergy/AdvReac Type Severity Reaction Status Date / Time adhesive tape Allergy Rash Verified 06/24/23 08:02 Latex, Natural Rubber Allergy Other Verified 06/24/23 08:02 codeine AdvReac Other Verified 06/24/23 08:02 hydrocodone bitartrate AdvReac Nausea Verified 06/24/23 08:02 [From Vicodin] meperidine HCl [From Demerol] AdvReac Other Verified 06/24/23 08:02 propoxyphene napsylate AdvReac Other Verified 06/24/23 08:02 [From Darvocet-N] Surgical History History of back surgery History of back surgery History of cardiac catheterization History of carpal tunnel release of both wrists History of coronary artery stent placement History of shoulder surgery Hx of neck surgery Hx of prior ablation treatment Hx of total hip arthroplasty Hx of total knee replacement Hx of total knee replacement Social History household members: spouse housing: house Smoking Status: Never smoker ROS ROS ED Constitutional Constitutional ED: Reports sweats; Denies chills or fever(s) Eyes Eyes: Denies blurry vision or change in vision ENT ENT ED: Denies ear pain or sore throat Cardiovascular Cardiovascular: Reports chest pain; Denies palpitations or racing heartbeat Respiratory/Chest Respiratory/Chest: Reports dyspnea; Denies cough or sputum Gastrointestinal Gastrointestinal: Reports nausea; Denies abdominal pain, constipation, diarrhea or vomiting Genitourinary Genitourinary ED: Denies dysuria, hematuria or urinary frequency Musculoskeletal Musculoskeletal: Denies arthralgias, myalgias or neck pain Integumentary Denies abscess, Abrasions or rash Neurologic Neurologic: Denies headache(s), paresthesias or weakness Psychiatric Psychiatric: Denies anxiety, depression, suicidal ideation or suicidal thoughts Endocrine Endocrinology: Denies polydipsia or polyuria EXAM Physical Exam Const Vital Signs: 06/24/23 07:57 06/24/23 07:57 06/24/23 09:56 Temperature 97.8 F Temperature Source Oral Pulse Rate 66 60 Respiratory Rate 11 L 98 H Respiratory Effort Normal Non-Labored Respiratory Pattern Normal Blood Pressure 118/56 L 126/76 H Blood Pressure Mean 76 92 Pulse Ox 99 98 Oxygen Delivery Method Room Air Room Air Positive well nourished General Appearance ED: NAD HEENT Reports moist mucous membranes Eyes PERRL and EOMs intact bilaterally Resp normal respiratory effort and clear to auscultation bilaterally Cardio regular rate and regular rhythm GI normal to inspection, nondistended, normoactive bowel sounds Extremity normal to inspection General Extremety ED: Negative for edema or pulses abnormal General Extremity: Negative for edema or pulses abnormal Neuro oriented x3 and CN's II-XII intact bilaterally Sensorium / Orientation: awake Motor Exam: strength 5/5 throughout Psych mental status grossly normal Skin no rashes or lesions noted Heart Score History: Moderately Suspicious ECG: Normal Age: >/= 65 years Risk Factors: >/= 3 Risk Factors or History of CAD Score: 5 MDM MDM MDM Narrative Medical decision making narrative: Patient with multiple comorbidities presenting with chest pain which started at about 645. Its improved. He took nitroglycerin today. Patient states he had anormal heart catheterization recently. Differential includes acute coronary syndrome, CHF, pneumonia, pneumothorax, gastritis, GERD, A-fib. Patient is on Eliquis so PE is unlikely. CBC discussed with blood cell count, hemoglobin, platelets, differential. BMP to assess renal function, electrolytes, glucose. High-sensitivity troponin EKG to assess for ischemia. Chest x-ray to rule out pneumonia or CHF. Patient had aspirin prior to arrival. EKG on my interpretation shows normal sinus rhythm with a ventricular of 66 bpm with first-degree AV block. It is noted that he had flipped into atrial fibrillationon the monitor in the room with a ventricular response was within normal limits. CBC was obtained to assess white blood cell count, hemoglobin and platelets. This was normal. BMP to assess renal function electrolytes, glucose and this was unremarkable. Patient had high-sensitivity troponin and delta troponin drawn and they were both 7. Chest x-ray on my interpretation shows no acute process. The radiologist or persistent agrees. At this point leighann with the family it is unlikely be cardiac especially with her recent cardiac catheter wasnegative. Patient did express to me that he has been under a lot of stress recently because he found his flxpozq-zp-its and has been having nightmares and its been upsetting him and he is wondering if maybe has anxiety over this. 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 Patient return precautions. Impression: 1. chest pain 2. Nausea Lab Data Attestation: I reviewed the patient's lab results. Labs: Laboratory Results - last 24 hr 06/24/23 06/24/23 08:15 10:30 WBC 7.5 RBC 4.95 Hgb 14.2 Hct 45.6 MCV 92.1 MCH 28.7 MCHC 31.1 L RDW Std Deviation 48.1 H RDW Coeff of Nicholas 14.2 Plt Count 230 MPV 9.0 Immature Gran % (Auto) 0.300 Neut % (Auto) 69.3 Lymph % (Auto) 21.2 [place] % (Auto) 6.7 Eos % (Auto) 1.6 Baso % (Auto) 0.9 Absolute Neuts (auto) 5.2 Absolute Lymphs (auto) 1.59 Nucleated RBC % 0 Sodium 140 Potassium 3.9 Chloride 108 H Carbon Dioxide 27.0 Anion Gap 5 BUN 17 Creatinine 1.19 Estim Creat Clear Calc 44.75 Est GFR (MDRD) Af Amer 75 Est GFR (MDRD) Non-Af 62 BUN/Creatinine Ratio 14.3 Glucose 129 H Calcium 9.0 Troponin I High Sens 7 7 Radiography Diagnostic Testing: Clinical Impression(s) from Imaging Studies Chest X-Ray 06/24/23 08:17 IMPRESSION: Degenerative and postoperative changes, as described above. No demonstrated acute cardiopulmonary process. Electronically Signed: Jay Bedoya MD at 9:12 EDT , Discharge Plan Triage Chief Complaint: Chest Pain ED Provider: Koffi Rome Dx/Rx/DC Orders Instructions: ED Chest Pain, Uncertain Cause Prescriptions: No Action atorvastatin 40 MG tablet 40 mg PO QHS Patient Comments: Cholesterol pantoprazole 40 MG tablet 40 mg PO DAILY Patient Comments: Acid Refulx/Stomach Acid cholecalciferol (vitamin D3) [Vitamin D3] 1,000 UNIT tablet 1,000 unit PO DAILY Patient Comments: Supplement Eliquis 5 MG tablet 5 mg PO BID Patient Comments: STOP 48 HR PRIOR nitroglycerin 0.4 MG tablet 0.4 mg sublingual Q5M PRN (Reason: Chest Pain) Qty: 1 0RF Patient Comments: Chest pain Rx Instructions: Place one tab under tongue every 5 minutes x 3 doses as needed cyanocobalamin (vitamin B-12) [B-12 DOTS] 500 MCG tablet 1,000 mcg PO DAILY@0800 sennosides-docusate sodium [Stool Softener-Stimulant Laxat] 1 TABLET tablet 2 tab PO DAILY Patient Comments: CONSTIPATION metoprolol succinate 25 MG tablet 50 mg PO DAILY Patient Comments: HEART,BP losartan 50 MG tablet 50 mg PO DAILY dofetilide 250 MCG capsule 250 mcg PO Q12 Patient Comments: Heart rate/rhythm melatonin 3 MG tablet 3 mg PO QHS Patient Comments: Sleep amlodipine 5 MG tablet 5 mg PO DAILY magnesium oxide 400 MG tablet 400 mg PO DAILYCM Patient Comments: Supplement tramadol 50 mg Tablet 50 - 100 mg PO Q6H PRN PRN (Reason: Pain Score 4-10) 7 Days Qty: 48 0RF acetaminophen 500 mg Tablet 1,000 mg PO Q8 14 Days Qty: 84 0RF Rx Instructions: Do not take more than 3000 mg Tylenol in a 24-hour period. meclizine 25 mg tablet 25 mg PO BID PRN (Reason: dizziness) Qty: 20 0RF Primary Care Provider: Galindo Yuan Referrals: Galindo Yuan MD [Primary Care Provider] - Disposition Disposition: Home, Self Care What to do if you have Problems For any increased pain, shortness of breath, bleeding, nausea or vomiting, chestpain, or any unexpected problems, contact your Primary Care Provider. Call [facility] ([phone]) or report to the closest Emergency Room. Call 911 if necessary. 06/24/23 1110 <Electronically signed by Koffi Rome DO> Cosigner Signature (if applicable): CC: Dr. Galindo Yuan MD ~ Signed [facility] Work Phone: [phone] 789-818506-23-2023 History of Present illness Narrative* Juan oTrres - 05/11/2023 1:57 PM EDT Last saw pcp: 12/20/22 Subjective: Patient presents to clinic c/o painful toenails. They state that the nails are especially painful with shoe gear and pressure. Patient states that nails 1-5 b/l are painful. Patient admits to being diabetic. Patient complains of painful callus to right 3rd toe. No other pedal complaintsat this time. Patient states no change in medications or medical history since last visit. Objective: Patient presents to clinic ambulating in [facility] Vasc: DP and PT pulses are palpable bilateral. CFT is less than 5 seconds bilateral. Skin temperature is warm to cool proximal to distal bilateral. There is no edema or varicosities noted. Neuro: Protective sensation is decreased to the foot and toes when tested with the 5.07 SWM bilateral. Vibratory sensation is absent at the hallux IPJ bilateral. The hallux is downgoing bilateral. Derm: Nails 1-5 b/l are painful, discolored-yellow, thick, crumbly, dystrophic and with subungal debris. Skin is of normal turgor, texture and hair growth is present bilateral. There are callus to right 3rd toe. No ulcerations, scars, verruca or other lesions noted. Ortho: Muscle strength is 5/5 for all pedal groups tested. Ankle joint DF is decreased with the knee extended with no pain or crepitus noted. 1st MPJ ROM is decreased bilateral. Rigid hammertoe of lesser toes at dipj b/l. Assessment: (E11.49) Other diabetic neurological complication associated with type 2 diabetes mellitus (HCC) (primary encounter diagnosis) (B35.1) Onychomycosis (M79.674) Pain in toe of right foot (M79.675) Pain in toe of left foot (M20.41, M20.42) Hammer toes of both feet (L85.9) Hyperkeratosis Plan: Patient was seen and evaluated. Nails 1-5 bilateral were debrided in length and thickness. Callus of right 3rd toe caused by hammertoe. Continue with hammertoe pad vs consideration into hammertoe correction. Patient states he will hold on surgery at this time. Callus reduced with dremmel. Patient was instructed on the continued importance of diabetic foot care along with proper diet andkeeping their blood sugar under control to prevent complications. Patient is to RTC in 3-4 months. Juan Torres DPM * Holli Johnson LPN - 05/11/2023 1:35 PM EDT AMB ROOMING INTAKE FLOWSHEET DATA Pain Pain Level: 7 Pain Location: Other: See Comment (bilateral feet) Description: Burning Duration Units: Years Frequency: Intermittent Intervention/Comfort measure: Reposition, Relaxation Patient presents with: Left Foot - Established Patient, Follow Up, nail care , Pain Right Foot - Established Patient, Follow Up, nail care , Pain Holli Johnson LPN [facility] Instructions* Patient Instructions* Juan Torres - 05/11/2023 1:57 PM EDT Diabetes Foot Care Instructions When you have diabetes, proper foot care is very important. Poor foot care may lead to amputation of a foot or leg. As a person with diabetes, you are more vulnerable to foot problems, because diabetes can damage your nerves and reduce blood flow to your feet. Here are some diabetes foot care tips to follow: Wash and Dry Your Feet Daily Use mild soaps Use warm water Pat your skin dry; do not rub. Thoroughly dry your feet. After washing, use lotion on your feet to prevent cracking. Do not put lotion between your toes. Examine Your Feet Each Day Check the tops and bottoms of your feet. Have someone else look at your feet if you cannot see them. Check for dry, cracked skin. Look for blisters, cuts, scratches, or other sores. Check for redness, increased warmth, or tenderness when touching any area of your feet. Check for ingrown toenails, corns, and calluses. If you get a blister or sore from your shoes, do not pop it. Apply a bandage and wear a differentpair of shoes. Take Care of Your Toenails Cut toenails after bathing, when they are soft. Cut toenails straight across and smooth with a nail file. Avoid cutting into the corners of toes. Do not cut cuticles. If you have neuropathy (or decreased sensation in your feet) a web programmer should always cut your toenails. Be Careful When Exercising Walk and exercise in comfortable shoes. Do not exercise when you have open sores on your feet. Protect Your Feet With Shoes and Socks Never go barefoot. Always protect your feet by wearing shoes or hard-soled slippers or footwear. Avoid shoes with high heels and pointed toes. Avoid shoes that expose your toes or heels (such as open-toed shoes or sandals). These types of shoes increase your risk for injury and potential infections. Try on new footwear with the type of socks you usually wear. Do not wear new shoes for more than an hour at a time. Change your socks daily. Look and feel inside your shoes before putting them on to make sure there are no foreign objects orrough areas. Avoid tight socks. Wear natural-fiber socks (cotton, wool, or a cotton-wool blend). Wear special shoes if your health care provider recommends them. Wear shoes/boots that will protect your feet from various weather conditions (cold, moisture, etc.). Make sure your shoes fit properly. If you have neuropathy (nerve damage), you may not notice that your shoes are too tight. Perform the footwear test described below. Footwear Test Use this simple test to see if your shoes fit correctly: Stand on a piece of paper. (Make sure you are standing and not sitting, because your foot changes shape when you stand.) Trace the outline of your foot. Trace the outline of your shoe. Compare the tracings: Is the shoe too narrow? Is your foot crammed into the shoe? The shoe should be at least 1/2 inch longer than your longest toe and as wide as your foot. Proper Shoe Choices The following types of shoes are best for people with diabetes Closed toes and heels Leather uppers without a seam inside At least 1/2 inch extra space at the end of your longest toe Inside of shoe should be soft with no rough areas Outer sole should be made of stiff material Shoes should be at least as wide as your feet Tips for Foot Care in Diabetes Don't wait to treat a minor foot problem if you have diabetes. Follow your health care provider's guidelines and first aid guidelines. Report foot injuries and infections to your health care provider immediately. Check water temperature with your elbow, not your foot. Do not use a heating pad on your feet. Do not cross your legs. Do not self-treat your corns, calluses, or other foot problems. Go to your health care provider or web programmer to treat these conditions. documented in this [facility]05-24[facility]23 Instructions* Patient Instructions* Desirae Salas RN - 04/11/2023 3:59 PM EDT WOUND CARE INSTRUCTIONS WITH DISSOLVABLE SUTURES WOUND CARE: The dressing you have been sent home with is called a pressure dressing. It should remain in place for 48 hours. To care for the wound: Remove pressure dressing after 48 hours. Tip: wet dressing in the shower to assist with adhesive removal. You can remove adhesive with soap,water, or alcohol pad. Clean with gentle soap and water twice daily. Example of gentle soap: Dove, Dial, CeraVe, Cetaphil, Aveeno, or any non-scented bar of soap After wound is thoroughly cleansed and dried, apply a thick layer of Vaseline or Aquaphor to the suture line. Do NOT use polysporin or neosporin on your wound After 72 hours, may leave uncovered as long as it is kept greasy and won t interfere with clothing. You may notice redness along the suture line as the wound heals This is normal- it is your body trying to break down the sutures If redness persists and continues to grow, please call us Signs and symptoms of infection: Redness streaking away from the wound, swelling, new onset of pain, foul smelling drainage, pus, and generalized fevers/chills BLEEDING: Careful attention has been given to your wound to prevent bleeding. The initial dressing you have on is a pressure dressing to also help prevent bleeding. You may notice a small amount of blood on the edges of the dressing the first day; this is normal. In case of persistent bleeding: Apply firm, steady pressure over the dressing with gauze for 20 minutes. If bleeding persists, please apply firm pressure for another 30 minutes. Tip #1: use a timer to record the time of pressure held Tip #2: do not peek at wound until time is completed- this will disrupt clotting time of vessel Tip #3: you may also use ice, as this may aid in slowing any bleeding. 2. If bleeding persists, please call the office using the numbers below. We will instruct you on how to proceed. PAIN: What pain can I expect after surgery? You can expect to have some pain after surgery. This is normal. The pain is typically worse for a day or two after surgery, and quickly begins to get better. Most patients are able to manage their pain after surgery with Usnc-lfd-Xsnpwmv (OTC) medications such as Tylenol (acetaminophen) and Motrin/A dvil (ibuprofen). If you have a condition that does not allow you to take either of these medications, please notify us immediately. How will I manage my pain? The best strategy for controlling your pain after surgery is around the clock pain control with Tylenol (acetaminophen) and Motrin/Advil (ibuprofen). Alternating these medications with each other allows you to maximize your pain control. In addition to Tylenol and Motrin, you can use ice packs on your incisions for 20 minutes each hour for the first two days after surgery to help reduce your painand swelling. After the first two days, you may use a heating pad or warm compress on your incisions and surrounding area. If you have received a graft, please *DO NOT* apply ice directly onto the graft site. How will I alternate my regular strength maka-hzj-qduqafe pain medication? You will take a dose of pain medication every four hours while you're awake. Start by taking 200-400 mg of Motrin/Advil (ibuprofen) (1-2 pills of 200 mg) 4 hours later, take 500-1000 mg of Tylenol (acetaminophen) (1-2 pills of 500 mg) 4 hours later, take 200-400 mg of Motrin/Advil (ibuprofen) (1-2 pills of 200 mg) 4 hours later, take 500-1000 mg of Tylenol (acetaminophen) (1-2 pills of 500 mg) 4 hours later, take 200-400 mg of Motrin/Advil (ibuprofen) (1-2 pills of 200 mg) We recommend that you follow this schedule aluclf-dlm-ctgne for at least 3 days after surgery, or until you feel that it is no longer needed. As an alternative, you can purchase OTC Advil Dual Action, which is a combined pill containing Acetaminophen 250mg and Ibuprofen 125mg. IMPORTANT: Do not take more than 3000mg of Tylenol (acetaminophen) or 3200mg of Motrin/Advil (ibuprofen) in a 24-hour period. Be aware that some chronic pain medications as well as over the counter cold and flu remedies may also contain acetaminophen. Take this into consideration to avoid exceeding the maximum daily dose. Limit alcohol intake. It is recommended to avoid heavy alcohol intake (more than two standard drinks per day for men and one standard drink for women) after surgery and while taking acetaminophen. Drinking alcohol causes the liver to convert more of the acetaminophen you take into toxic byproducts.Alcohol also acts as a blood thinner and can increase your risk for post-operative bleeding. Continue to take all of your prescribed medication. SWELLING: Swelling after surgery is normal and can peak at 48hr after surgery Suggestion: sleep on 1-2 pillows post procedure for 2-3 days to minimize swelling You can do this if you had a procedure on your face, top of head, ears, jaw, eyes, nose, cheeks, etc. Elevate arms and legs at rest to decrease swelling You can wrap your affected extremity by using JERI wrap, coban wrap, or compression stockings to also minimize swelling Please also use ice to decrease swelling. Can use approximately 20 minutes each hour. NOTES: You may shower regularly after your initial surgery dressing is removed Avoid increasing heart rate or blood pressure for the first 72 hours following surgery (increases bleeding risk) Avoid heavy lifting and strenuous activity for 72 hours following surgery Return to referring automobile service writer for skin checks every 6 months Wear sunscreen PHONE NUMBERS: Chary contact number: [phone] and ask to be transferred to Dermatology (Sunday-Sunday, 8am-5pm) For emergencies only: On-call number: [phone] and ask for the installation engineer dermatology surgery fellow documented in this encounterT[facility]05-[facility]23 History of Present illness Narrative* Sakshi Rodriguez MD - 04/11/2023 10:44 AM EDT MOHS MICROGRAPHIC OPERATIVE REPORT SERVICE DATE: 04/11/2023 SERVICE TIME: 1300 LOCATION: [facility] [address] [place], [place] [address] REFERRING PROVIDER: Ruth Perla [address] [place] [id number] PROCEDURE START TIME: 1:21 PM PROCEDURE END TIME: 1601 SURGEON: Dr. Sakshi Rodriguez FELLOW: Dr. Jg Bangura PHYSICIAN TRUCKLOAD OWNER OPERATOR: Kerri Dockery LICENSED PRACTICAL NURSE: Romulo Yoder LPN ANTICOAGULANTS: Eliquis 5 mg IMPLANTED DEVICES: Artificial Joints left knee, right hip, left shoulder, plate in Neck and Back. ANTIBIOTIC PROPHYLAXIS: Not required TRANSPLANT PATIENT: No PHOTOS: Photos taken VERIFICATION OF PROCEDURE: Procedure to be Performed: Mohs Surgery Patient Verified By: Name and Date of Site(s) Confirmed: Patient confirmed site from image in the EMR. Patient used mirror(s) to identifysite(s). Patient pointed to site(s). Patient identified site in photo(s) taken during consult or preprocedure then signed photo. Patient verbalized agreement of surgical site(s). Site(s) Marked: Provider marking the site with patient involvement. Relevant documentation, images, implants or special equipment present: Yes SIGN IN COMMUNICATION: Completed Time Out: Team Confirms the Correct Patient, Correct Procedure, Correct Site(s) and Site Marked, Correct Position (if applicable). Time: 1:21 PM Affirmation of Time Out: Yes Sign out Discussion: Completed UNIVERSAL PROTOCOL / SAFETY CHECKLIST Procedure to be Performed: Mohs Surgery Sign In: A Moment of CARE was completed. Personnel directly involved with the procedure wore the appropriate PPE (Personal Protective Equipment). No special equipment needed. Patient/Surrogate Stated/Verified: PATIENT VERIFIED(optional for EMERGENT procedures): Patient name, Date of , Relevant allergies, and The intended procedure Time Out Communication: Intended patient and procedure match the source documents. Consent documented and matches the intended procedure. Relevant labs, photos, and/or imaging studies have been reviewed. Correct side/site marked and visible. Medications required for procedure verified. Fire risk assessed and interventions discussed. No implant(s) inserted. Sign Out: SIGN OUT (optional for EMERGENT procedures): All specimen containers correctly labeled. All instruments, equipment, possible retained foreign bodies accounted for. Post-procedure follow-up management communicated and Plan of Care Visit completed when applicable. Romulo Yoder LPN LESION #1 Preoperative Diagnosis: BCC Nodular of the LEFT MID CHEEK Tumor Type: Primary Path Report Available at Bedside: Inside pathology report # [id number] Pre-op Size: 0.6 cm - 1 cm, (0.8 cm X 0.7 cm) Lymphadenopathy: None Indication for Mohs: Anatomic Location where lesion is prone to recur, Proven difficulty with skin cancers, Type of tumor, Rapid growth, Age of patient, Size, and Aggressive pathology Location: Area M: (Includes Cheeks, Forehead, Scalp, Neck, Jawline and Pretibial Surface) Preparation: Povidone-iodine LAYER A The patient was positioned, prepped with alcohol and draped in the usual manner. Anesthesia was obtained with local infiltration. The clinically apparent tumor was then debulked with a curette. A 1-2mm rim of tissue was marked circumferentially around the defect. The area thus outlined was exciseddeep to the subcutis. Hemostasis was achieved with electrocautery. The specimen was oriented, subdivided into 2 sections ( A1 & A2), chromacoded and submitted for horizontal frozen sections. The patient tolerated the procedure well and no complications were noted. Upon review of the horizontal frozen sections for Layer A, residual bcc was identified in pieces A1& A2. Depth of Invasion:dermis. MORPHEAFORM BASAL CELL CARCINOMA: Irregularly shaped cords and strands of basaloid keratinocytes are present within the. In areas the cells assume a single cell strand formation with a highly-infiltrative growth pattern. The cells have scant cytoplasm and round dark nuclei. Mitotic figures and apoptotic bodies are evident. The nuclei at the periphery of the islands have a palisaded arrangement. The islands are associated with a dense morpheic stroma. LAYER B A 1-2 mm rim of tissue was marked to encompass the positive margins noted in the frozen section. The area thus outlined was excised deep to the subcutis. Hemostasis was achieved with electrocautery. The specimen was oriented, subdivided into 1 sections, chromacoded and submitted for horizontal frozen sections. The patient tolerated the procedure well and no complications were noted. Upon review of the horizontal frozen sections for Layer B, residual BCC was identified in pieces B1 Depth of Invasion:dermis. LAYER C A 1-2 mm rim of tissue was marked to encompass the positive margins noted in the frozen section. The area thus outlined was excised deep to the subcutis. Hemostasis was achieved with electrocautery. The specimen was oriented, subdivided into 1 sections, chromacoded and submitted for horizontal frozen sections. The patient tolerated the procedure well and no complications were noted. Upon review of the horizontal frozen sections for Layer C, no residual tumor was identified in piece C1. CLOSURE Rationale for Primary Closure: Given the location and size of the defect and in order to minimize the pain, bleeding, and infection associated with second intention healing, the wound was closed witha primary linear closure. Diagnosis: Surgical defect secondary to Mohs micrographic surgery on a Primary tumor type from LeftMid Cheek (location of tumor). Post-op Defect Size: 1.5 cm X 1.8 cm INTERMEDIATE CLOSURE: Requiring skin and subcutaneous fat. The beveled edge of the Mohs defect was surgically removed. The wound edges were undermined in all directions to decrease the tension of thewound and facilitate skin edge apposition. Meticulous hemostasis was achieved with electrocautery. Redundant standing cones were removed to allow the wound to be closed without distortion. The deep tissue were opposed with 5-0 Absorbable Absorbant sutures. The epidermal edges were opposed with 5-0 Absorbable sutures. The surgical site was cleansed with saline and covered with a bandage as below. The patient tolerated the procedure well and no complications were noted. Final Size: Linear closure - 4.0 cm SCC Staging N/A N/A LOCAL ANESTHETIC: 6 cc 1% Lidocaine HCl with Epinephrine 1:100,000 ESTIMATED BLOOD LOSS: Less Than Minimal Unless Noted Here. COMPLICATIONS: None, patient tolerated procedure well. TOTAL OPERATIVE TIME: 160 Minutes POST OP MEDS: Tylenol 650 mg every 4-6 hours as needed for pain relief POST OP CARE: Pressure Dressing applied consisting of Contact Layer: Petrolatum ointment and Non stick Telfa pad Absorbent Layer: Gauze pad Liquid Adhesive to surrounding skin to adhere dressing. Outer Layer: Hypafix MOHS POST OP INSTRUCTIONS GIVEN WITH VERBAL UNDERSTANDING: Yes PATIENT DISCHARGED TO LUNCH COOK/NAME: spouse Kerri. FOLLOW UP: Return for wound care check in 6-8 weeks See Dermatology yearly or as needed for FSE's PRN The documentation for this note was completed by Romulo Yoder LPN acting as scribe for MD Gisselle. April 11, 2023 1:19 PM. Kerri Dockery PA-C (Training) Jg Bangura MD served as fellow surgeon in the final repair. Fellow closed, under direct supervision and the remainder of the procedure was performed by the primary surgeon/proceduralist with assistance. I have seen and examined Jg Whalen Chahal. I have discussed the case and the management of this patient's care with the Fellow. I also have reviewed and agree with the assessment and plan as stated above and agree with all of its relevant components. I was present for and supervised the proceduresas documented above by the Fellow. I was physically present during the critical portion(s) of this procedure. I agree with the operative note independently gathered by the clinical program support assistant and the remaining scribed note accurately describes my personal service to the patient. I/primary surgeon/proceduralist reviewed the specimen(s) and worked as the pathologist. Sakshi Cheng MD April 18, 2023 documented in this encounterToledo [facility]04-28-2023 Miscellaneous Notes* Telephone Encounter - Swati Roberto RN - 03/16/2023 10:56 AM EDT Called patient regarding biopsy results and to discuss Mohs surgery expectations/instructions. Patient voiced understanding and would like to proceed. Routed to Mohs schedulers to set up appointment time. PROCEDURE & TIME REQUIRED Mohs Micrographic surgery: AUC: 7 Mohs surgery preoperative scoring for BCC and SCC (for scheduling): Lesion 1 1. Where is the lesion located? Other location (1 points) A. Skin, left mid cheek, shave biopsy: -Basal cell carcinoma, nodular type. 2. Is the lesion a recurrent tumor? Unknown (0 points) 3. Does the tumor have an aggressive histologic subtype? (micronodular or infiltrative BCC, moderate or poorly differentiated SCC) No (0 points) 4. Lesion size <1 cm (0 points) Size: 0.5 cm Total Points for Lesion: 1 If 2 lesions are close together and done on the same day add 1 point. Total points: 1 If score is 3 or higher, schedule in AM Mohs slots only If score is 5 or higher, please hold 2 Mohs surgery slots For every 4 additional points hold an additional slot If the lesion has 6 or greater number of pieces please schedule at location where 2 histotechs are located. Please include total points in the appointment visit notes. Derm time required: one slot and PM Approved by: Swati Roberto RN Schedule with: First Available Location: [place] *Photos in Get Images; no photos in mirror * Telephone Encounter - Marry Tucker CMA - 03/16/2023 9:07 AM EDT Patient agrees to Mohs. * Telephone Encounter - Brenda London Ma - 03/15/2023 5:17 PM EDT ----- Message from Ruth Perla DO sent at 03/15/2023 4:23 PM EDT ----- A. Skin, left mid cheek, shave biopsy: -Basal cell carcinoma, nodular type- Mohs documented in this encounterToledo [facility]04-26-2023 Instructions* Patient Instructions* Brenda London Ma - 03/14/2023 3:56 PM EDT Images from the original note were not included. Department of Dermatology [address] [place], [place] [id number] SKIN CARE AFTER CRYOSURGERY Post - Operative Instructions The skin's response to cryosurgery (freezing) can be mild to more severe, depending on the depth ofthe freeze and the location of the area treated. You may have only mild redness and swelling with alittle discomfort of significant discoloration and blistering with considerable discomfort. A burning sensation in the skin may last from several minutes to several hours after the procedure. Follow these instructions when caring for an area treated by cryosurgery: MINOR RESPONSE: The area may sting or burn for a short time after treatment. The treated area will be red in color at first then turn brown and flaky as it heals and the upper layer of skin sloughs off. Gently cleanse the area with soap and water. Pat dry and apply a thin film of: vaseline. Do this atleast once a day to prevent infection. MAJOR RESPONSE: Follow instructions as stated for minor response. The area may sting and burn for several hours after treatment. To relieve throbbing and pain, elevate the treatment area. Acetaminophen (Tylenol) may be taken every 3 to 4 hours for discomfort. A blister will form in the area of freezing. It may be filled with clear fluid or blood. This response is not unusual. Do not break the blister unless it becomes uncomfortable. You may prick the blister with a sterile needle or pin to remove the fluid. Leave the skin intact. Cleanse twice a day with soap and water and apply vaseline to prevent infection and a thick scab from forming. All treated areas usually heal within 3 to 4 weeks. Please call [phone] to speak to one of the dermatology nurses if you have any questions. Department of Dermatology [address] [place], [place] [id number] CARE FOR YOUR SHAVE BIOPSY SITE Please follow these instructions for daily wound care: 1. Wash the area every day with gentle soap and water. 2. Apply a thin layer of Vaseline or Aquaphor to the wound site to keep the area slightly greasy atall time (this helps to prevent scabbing). Please do not use an old tub of ointment as this can introduce germs into your wound and cause infection. 3. Cover with a bandage and continue this daily process until the wound is healed. Do not leave a soiled or wet bandage on the wound. -Keep the area clean and dry with the bandage in place the day of surgery. -If you experience any bleeding, please apply pressure to the area for approximately 10 minutes. -You may shower, but do not soak in a bathtub, hot tub, pool, marmolejo, etc until after the wound has healed. -DO NOT USE NEOSPORIN OR BACITRACIN as there is a fairly high incidence of allergic response to these products. -You may experience some mild discomfort, redness, swelling, and/or a clear discharge from the wound after your procedure. Severe pain, worsening swelling, and foul-smelling discharge from the site are NOT to be expected. If you have concerns about how your wounds are healing, please send your provider a [email or web address] message or call [phone] and ask for a dermatology nurse. documented in this encounterT[facility]edo Hospital04-26-2023 History of Present illness Narrative* Ruth Perla DO - 03/14/2023 3:36 PM EDT Established Patient Visit Last Visit Date: 07/12/2022 with Linden Iglesias PA-C CC: skin lesions HPI: 82 year old male. Today's concerns are: 1) skin lesions Location: Right arm, left arm, scalp, face Duration: years-months Symptoms: bleeding lesion on face Current treatment: none Past treatment: LN2 treatment in the past Past Derm History: Personal history of melanoma: No Family history of melanoma (1st degree relative): Yes: father, brothers, maternal uncle History of atypical nevi: No Personal history of NMSC: Yes: Multiple BCC most recent L side of nose 04/2021 Mohs, SCC L posteriorforearm excised 09/2021 ROS: Denies fevers, weight loss, night sweats, joint pain, abdominal pain, headaches, cough. Skin as above. Physical Exam: Gen: A&Ox3, well appearing Skin exam performed including scalp, face, neck, chest, abdomen, back, arms, hands. Exam with notedfindings of: -scalp, right forearm, left forearm: 8 pink scaly rough patches -Left mid cheek: 5 mm AN erythematous crusted patch -Trunk: scattered small red papules -Trunk, UE, LE with scattered warty brown stuck-on papules -Face, neck, trunk, UE with scattered polk-brown macules in sun-exposed distribution Assessment/Plan: ASSESSMENT/PLAN: 1. Skin exam, screening for cancer - ICD9: V76.43, ICD10: Z12.83 (primary diagnosis) -The ABCD's of melanoma were discussed. The patient is to perform monthly self exams and follow-up in dermatology for skin exams every 3 months. If any new lesions then the patient shall return sooner. Recommended SPF of 30 or greater. 2. Hx of nonmelanoma skin cancer - ICD9: V10.83, ICD10: Z85.828 -The ABCD's of melanoma were discussed. The patient is to perform monthly self exams and follow-up in dermatology for skin exams every 3 months. If any new lesions then the patient shall return sooner. Recommended SPF of 30 or greater. 3. Neoplasm of skin - ICD9: 239.2, ICD10: D49.2 - Shave Biopsy: The risks, benefits, indications, alternatives, and complications were discussed, and informed consent was obtained. Specifically, the expectation of a permanent scar and risk of possible infection were explained and understood. If the procedure were to be declined, the lesion could not be evaluated microscopically for diagnosis or abnormality, including cancer. Verbal consent wasobtained. - See procedure notes. 4. Actinic keratosis - ICD9: 702.0, ICD10: L57.0 - Cryotheraphy SE/Risks discussed: The risks, benefits, indications, alternatives, and complications were discussed, and informed consent was obtained. Specifically, the risks of permanent scar, lossor darkening of skin color, blister and recurrence of lesion were discussed. Patient verbalized unde rstanding and wished to proceed. Verbal consent was obtained. - See procedure notes. 5. Lentigines - ICD9: 709.09, ICD10: L81.4 -Explanation of these lesions were dicussed. Benign reassurance was given. 6. 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 Benign reassurance was given. 7. Seborrheic keratosis - ICD9: 702.19, ICD10: L82.1 -Explanation of these lesions were dicussed. Benign reassurance was given. Procedures: Tangential biopsy via shave technique: A.) left mid cheek r/o bcc vs scc - Tangential biopsy by shave. The risks, benefits, indications, alternatives, and complications were discussed, and informed consent was obtained. Specifically, the expectation of a permanent scar and risk of possible infection were explained and understood. If the procedure were to be declined, the lesion could not be evaluated microscopically for diagnosis or abnormality, including cancer. In accordance with the [facility] policy, pre-procedure time out was performed to verify the correct patient, procedure, site, positioning, and implant(s) or special equipment. Site(s) were cleaned with alcoholand anesthetized with 1% lidocaine with epinephrine. Tangential biopsy via shave technique was performed. Hemostasis was obtained with aluminum chloride and/or electrocautery. Petrolatum and bandage were applied. The patient tolerated the procedure well without complications and with minimal blood loss. Written wound care instructions were reviewed and given. Specimen(s) sent to pathology. Procedure Note - Benign/Pre-Malignant Lesion(s) - Lesion(s) x 8 AK's was treated with cryotherapy x 2 cycles x 10 sec/cycle with liquid nitrogen via cryostat spray device. The risks, benefits, indications, alternatives, and complications were discussed, and informed consent was obtained. Specifically, the risks of permanent scar, loss or darkening of skin color, blister and recurrence of lesion were discussed. Patient verbalized understanding and wished to proceed. Verbal consent was obtained. The patient tolerated the procedure well withoutcomplications. Wound care instructions were reviewed and given to patient. RTC 6 months skin check. The patient is seen and examined by Dr. Perla and the following reflects his/her service. Scribed by Yue I agree with the Chief Complaint, ROS, and Past Histories independently gathered by the clinical program support assistant and the remaining scribed note accurately describes my personal service to the patient. Ruth Perla DO documented in this encounterT[facility]edo Hospital04-06-2023 History of Present illness Narrative* Ancelmo Madrigal PT - 02/22/2023 10:41 AM EDT Episode Visit Count: 3 Therapist That Will Accept/Oversee The Plan Of Care: Ancelmo Madrigal PT Start of Care Date: 02/14/23 Onset Date: 02/14/22 Plan of Care Certification Date: 02/14/23 Next Certification Due Date: 03/28/23 Patient Identified by Name and Date of : Yes REHABILITATION AND SPORTS THERAPY PHYSICAL THERAPY TREATMENT NOTE ASSESSMENT: Jg Chahal tolerated the session with no issues. He demonstrated difficulty withincreased pain that did not decrease after manual therapy. The patient will continue to benefit from ongoing skilled physical therapy to progress toward set goals. PLAN FOR NEXT VISIT: Continue with stretching and strengthening of cervical spine musculature with emphasis on proper technique and intensity. Continue manual therapy for soft tissue work but no traction secondary to cervical spine fusion. SUBJECTIVE: Patient Reason for Visit: Pt reports that overall he is feeling worse and he blames thecurrent weather conditions for this. Pt reports that he has stayed active at home doing chores around the house. He reports compliance with HEP 3x day. He reports that improvements from massage last visit lasted for less than an hour. He reports that driving home caused all of his symptoms to return. He reports that his gave him a massage yesterday and the short term relief was the same as when he received massage in PT. Pain: Pain Pain Level: 5 Pain Location: Neck - Right, Head - Right Description: (headache) Frequency: Intermittent Post Treatment Pain Post Treatment Pain Level: No Change Post Treatment Symptoms: After manual therapy today, pt denied any change and continued to rate hispain 5/10 OBJECTIVE MEASURES WITH LEVEL OF FUNCTION: TREATMENT: Therapeutic Exercise: 1: *Cervical AROM rotation to R and L x10 each 2: *Cervical side bending 1x10 B 3: seated R UT stretch 3x30 seconds 4: seated R levator scapulae stretch 3x30 seconds 5: seated scapular retraction 2x10 6: HEP was reviewed, corrected and continuation encouraged for AROM(sidebending and rotation) and stretches for levator scapulae and UT. Skilled Intervention: Patient was educated in proper exercise technique and purpose for exercises. Reviewed and educated patient on additions/changes for home exercise program as above (*). Skilled judgment was provided in selection of appropriate interventions. Correct performance of therapeutic exercises was facilitated with verbal, visual, and tactile cuing. Patient education as noted. Manual Therapy: 1: After therex, manual therapy done to R sided cervical spine musculature. Techniques included massage, muscle bending, passive stretch, sub-occipital release and trigger point release. All done to pt tolerance. Total time with manual therapy was 10 minutes. Skilled Intervention: Manual skills to improve joint mobility, ROM, and decrease pain. Utilized anatomy knowledge of the therapist, and assessment of patient's response to intervention. Billing Therapeutic Exercise Treatment Minutes: 30 Manual TherapyTreatment Minutes: 10 Total Treatment Time Minutes (timed/untimed): 40 Ancelmo Madrigal PT documented in this encounterT[facility]edo Hospital04-04-2023 History of Present illness Narrative* Ancelmo Madrigal PT - 02/20/2023 8:42 AM EDT Episode Visit Count: 2 Therapist That Will Accept/Oversee The Plan Of Care: Ancelmo Madrigal PT Start of Care Date: 02/14/23 Onset Date: 02/14/22 Plan of Care Certification Date: 02/14/23 Next Certification Due Date: 03/28/23 Patient Identified by Name and Date of : Yes REHABILITATION AND SPORTS THERAPY PHYSICAL THERAPY TREATMENT NOTE ASSESSMENT: Jg Chahal tolerated the session with decreased symptoms. He demonstrated difficulty with AROM of cervical spine. The patient will continue to benefit from ongoing skilled physicaltherapy to progress toward set goals. PLAN FOR NEXT VISIT: Assese response to STM and SUBJECTIVE: Patient Reason for Visit: Pt reports that he doesn't think that the exercises are helping at all, his neck has gotten a little worse. Pt states completing the exercises 3x per day. Pt states having a dull headache this morning. Pain: Pain Pain Level: 6 Pain Location: Neck - Right, Head - Right Frequency: Intermittent (worse with drivng) Post Treatment Pain Post Treatment Pain Level: Better Post Treatment Pain Location: Neck - Right, Head - Right Post Treatment Symptoms: Pt stated headache was alleviated with manual techniques. OBJECTIVE MEASURES WITH LEVEL OF FUNCTION: Increased cervical rotation noted after manual techniques. TREATMENT: Therapeutic Exercise: 1: Cervical AROM rotation to R and L x10 each 2: Cervical side bending 1x10 B 3: Attempted scapular retractions , discontinued to go aggrevation in shoudlers 4: Cervical retraction 1x10 5: *discussed decreasing frequency of stretches to see if it helps with symptoms. Skilled Intervention: Patient was educated in proper exercise technique and purpose for exercises. Skilled judgment was provided in selection of appropriate interventions. Correct performance of therapeutic exercises was facilitated with verbal and visual cuing. Manual Therapy: 1: Manual stretching of R UT 2: STM to R cervical paraspinals x 10 minutes Skilled Intervention: Manual skills to improve joint mobility, ROM, and decrease pain. Utilized anatomy knowledge of the therapist, and assessment of patient's response to intervention. Billing Therapeutic Exercise Treatment Minutes: 23 Manual TherapyTreatment Minutes: 15 Total Treatment Time Minutes (timed/untimed): 38 Sheryl Mancia, [employer] Ancelmo Madrigal PT documented in this encounterT[facility]03-30-[facility]23 Miscellaneous Notes* Telephone Encounter - Mariella Kimball Ma - 02/15/2023 3:34 PM EDT Order for TENS unit, CMN form, demographics, and today's OV note has been faxed to [facility]. Fax confirmation received. documented in this encounterToledo [facility]03-27-2023 History of Present illness Narrative* Renan Bowling MD - 02/12/2023 9:02 AM EDT [facility] Date: February 12, 2023 - 9:02 AM Chief Complaint: Neck pain SUBJECTIVE: Mr. Chahal presents to the [facility] for a follow up appointment regarding chronic neck pain. He is status post of cervical facet injections with overall minimal improvement. Pain is also involving the right posterior occipital region on an intermittent basis. He denies any radiation to the upper extremities. He is status post multilevel anterior cervical fusion. The pain is bilateral but mainly located in the right posterior cervical region and does not radiate. // The pain is described as crawling and headache and is rated as 6 on a scale of 0-10. The patient Denies numbness and tingling. Symptoms interfere with sleeping and his day to day activities. The painis exacerbated by looking down and turning his head to the right. The pain is mitigated by compression and ice. He is currently receiving medications through the [facility]. He is having difficulty with his PMC medications. The medications are causing hives and welts. REVIEW OF SYSTEMS: Constitutional: (-) Fever (-) Night Sweats (-) Weight Gain (-) Weight Loss (-) Fatigue Cardiovascular: (-) Chest Pain (-) Palpitations (-) Lightheadedness (-) Swelling of Ankles (-) Hx Heart Surgery Respiratory: (-) Shortness of Breath (-) Cough (-) Wheezing (-) Snoring Gastrointestinal: (-) Incontinence (-) Abdominal Pain (-) Diarrhea (-) Constipation (-) Nausea/Vomiting (-) Heart Burn Endocrine: (-) Thyroid Disorder (-) Diabetes Hematologic: (-) Prolonged Bleeding (-) Easy Bruising Genitourinary: (-) Incontinence (-) Frequency (-) Urinary Urgency Skin: (-) Rashes (-) Itching (-) Other Lesions Neurologic: (+) Headache (-) Double Vision (-) Confusion (-) Paralysis Psychiatric: (-) Depression (-) Anxiety PAST MEDICAL HISTORY Diagnosis Date Abdominal pain, right lower quadrant 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 Dr. Tee Clemons, Dermatology Basal cell carcinoma (BCC) of skin of face Mohs 04/2021 Coronary atherosclerosis of unspecified type of vessel, [place] or graft 01/22/2006 moderate Diverticulosis of colon (without mention of hemorrhage) 07/18/2005 Dyslipidemia Dyspepsia and other specified disorders of function of stomach 07/18/2005 Chronic gastritis, Dyspepsia. Gastric ulcer, unspecified as acute or chronic, without mention of hemorrhage or perforation, with obstruction Generalized osteoarthrosis, unspecified site 07/18/2005 H. 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 Lumbago 08/26/2008 Dr. Odin Coon, [facility]. Rotator cuff tear, right 10/21/2012 Salmonella enteritis 08/2010 Type II or unspecified type diabetes mellitus without mention of complication, not stated as uncontrolled 07/08/2007 Unspecified essential hypertension 07/18/2005 PAST SURGICAL HISTORY Procedure Laterality Date ARTHROSCOPY KNEE DIAGNOSTIC W/WO SYNOVIAL BX SPX 11/2003 Arthroscopy, knee ARTHRP ACETBLR/PROX FEM PROSTC AGRFT/ALGRFT Right 08/07/2016 Hip replacement, total ARTHRP KNE CONDYLE&PLATU MEDIAL&LAT COMPARTMENTS 2002 Knee replacement, total, left ARTHRP KNE CONDYLE&PLATU MEDIAL&LAT COMPARTMENTS Left 10/01/2017 revision L TKA, [facility] CC ABLATION SVT 04/06/2017 EP study, ablation for A.fib. COLONOSCOPY FLX DX W/COLLJ SPEC WHEN PFRMD 12/24/2002 Colonoscopy COLONOSCOPY FLX DX W/COLLJ SPEC WHEN PFRMD 05/11/2011 Colonoscopy ESOPHAGOGASTRODUODENOSCOPY TRANSORAL DIAGNOSTIC 03/18/2007 EGD ESOPHAGOGASTRODUODENOSCOPY TRANSORAL DIAGNOSTIC 06/11/2007 EGD ESOPHAGOGASTRODUODENOSCOPY TRANSORAL DIAGNOSTIC 05/11/2011 EGD LOPEZ W/O FACETEC FORAMOT/DSC 1/2 VRT SGM CRV 2000 Laminectomy, cervical LAMINECTOMY W/O FFD > 2 VERT SEG LUMBAR 11/05/2008 lumbar fusion LAMINOTOMY (HEMILAMINECTOMY), WITH DECOMPRESSION OF NERVE ROOT(S) Bilateral 05/02/2019 Revision hemilaminectomies L2,L3,L4-L5 LEFT HEART CATH,PERCUTANEOUS 01/22/2006 Cardiac cath, L heart LEFT HEART CATH,PERCUTANEOUS 05/31/2011 Cardiac cath, L heart LEFT HEART CATH,PERCUTANEOUS 11/27/2011 Cardiac cath, L heart LEFT HEART CATH,PERCUTANEOUS 11/27/2013 Cardiac cath, L heart NEUROPLASTY &/TRANSPOS MEDIAN NRV CARPAL TUNNE 1995 Carpal tunnel decomp R/L OPEN REPAIR OF ROTATOR CUFF ACUTE 1996 Rotator cuff repair, bilateral OPEN REPAIR OF ROTATOR CUFF CHRONIC Left 12/28/2014 Left shoulder open rotator cuff repair and Sub Ac decompression SHX TOTAL SHOULDER REVERSE Left 02/01/2022 Left reverse total shoulder arthroplasty TRANSCATH STENT INIT VESSEL,PERCUT 08/26/2009 Transcath stent init vessel percut TRANSCATH STENT INIT VESSEL,PERCUT 11/16/2010 Transcath stent init vessel percut ALLERGIES Allergen Reactions Adhesive Hives Codeine HEART PALPITATIONS Darvocet-N 100 [Pro* Intolerance Heart racing Latex Hives Meperidine Hcl Current Outpatient Medications Medication Sig TENS unit and electrodes cmpk Us as instructed. baclofen (LIORESAL) 10 mg tablet Take 1 tablet by mouth once daily. melatonin 3 mg tablet Take 1 tablet by mouth daily at bedtime. metoprolol succinate ER (TOPROL XL) 25 mg 24 hr tablet Take 1 tablet by mouth once daily. TAKE ONE-HALF TABLET BY MOUTH ONCE DAILY (Patient taking differently: Take 25 mg by mouth once daily. Taking 50 mg (1 tablet) daily) blood sugar diagnostic (BLOOD GLUCOSE TEST) test strip Test blood sugar(s) 1 times daily. Dx: Type 2 DM - Controlled E11.42 Insulin: No Lancets lancets Test blood sugar(s) 1 times daily. Dx: Type 2 DM - Controlled E11.42 Insulin: No losartan (COZAAR) 50 mg tablet Take 1 tablet by mouth once daily. pantoprazole DR (PROTONIX) 40 mg tablet TAKE ONE TABLET BY MOUTH DAILY ON EMPTY STOMACH ONE-HALF HOUR BEFORE BREAKFAST dofetilide (TIKOSYN) 250 mcg capsule Take 1 capsule by mouth twice daily. amLODIPine (NORVASC) 5 mg tablet Take 1 tablet by mouth once daily. apixaban (ELIQUIS) 5 mg tab(s) Take 1 tablet by mouth twice daily. atorvastatin (LIPITOR) 40 mg tablet Take 1 tablet by mouth once daily. CPAP Patient requesting new DME. Currently has a PAP device (2016 -- may be due for new device). Please fit with a Wisp (currently with Dream wisp and causing discomfort on top of head). Lifetime supplies. nitroglycerin sublingual (NITROSTAT) 0.4 mg SL tablet Dissolve 1 tablet under the tongue every 5 minutes as needed for chest pain. Amoxicillin 500 mg tablet Take 4 tablets by mouth as needed (1 hour before the procedure). docusate sodium (COLACE) 100 mg capsule AT BEDTIME magnesium oxide (MAG-OX) 400 mg tablet Take 1 tablet by mouth once daily. Cholecalciferol, Vitamin D3, 1,000 unit cap Take 1 capsule by mouth once daily. vitamin b complex (B COMPLETE) ORAL Tab Take 1 tablet by mouth once daily. No current facility-administered medications for this visit. I have reviewed the nurses notes and I am aware of the family/social history. Since the last evaluation the medical history has not changed. PDMP website checked and validated. All prescriptions have been APPROPRIATELY filled. No suspiciousactivity was identified. 02/12/2023 by Renan Bowling MD Narcotic Agreement reviewed and signed?: N/A on February 12, 2023 Urine Panel: No results found for: UQCANN, UQBNZL, AKV8MRD, UQAMPH, UQMAMP, UQBUPRE, UQNORBUP, UQMTHD, UQEDDP, UQTRAM, UQDTRM, UQFNTL, UQNFTL, UQCODE, UQMORP, UQDCDN, UQHCOD, UQOXYC, UQHMOR, UQOXYM, UQCREA, UQPH,UQSPGR, UQOXID, UQSPQ The pain panel was N/A PHYSICAL EXAMINATION: Performed in conjunction with observation. The patient was alert and oriented x3. The patient was in no acute distress. Lungs: Clear, negative for dyspnea or distress. CVR: Regular Rate. Negative for SOB or peripheral edema. Neck: Supple. The range of motion was limited. Rotation to the right was less than 5 degrees and this reproduced the pain in the right posterior paracervical region. Cervical facet loading: Equivocal Spurling's: Negative Back: Range of motion of the trunk was intact. SLR: Negative Extremities: no reported edema or erythema. Motor: Negative focal deficits Sensory: Intact to light touch and sharp throughout the upper extremities Gait: Within normal limits ASSESSMENT: Cervicalgia (primary encounter diagnosis) History of fusion of cervical spine Cervical myofascial pain syndrome PLAN: Prior available imaging studies were reviewed. Findings were discussed. Injection history was reviewed. Medication use and compliance were reviewed. 1. Recommend a trial of TENS unit. 2. Interventional procedure options discussed. None 3. The patient had allergic ration to Robaxin. Trial of baclofen 10 mg 1 p.o. daily as needed basis. 4. Recommend physical therapy 5) F/U in 2 months The treatment plan was discussed with the patient during the office visit and they verbalized an understanding of it. I have discussed and confirmed the above treatment plan with the patient and I have reviewed the nurses notes and I am aware of the family/social history. I have confirmed ROS findings. Renan Bowling MD cc: Dr. Galindo Yuan MD cc: No referring provider defined for this encounter. Phone: N/A Fax: Results of consultation to be transmitted via electronic medical record for those providers who practice within [facility] or with access to [employer] via MD Connect, or via letter. 1. This document has been created with the use of voice recognition technology. It may contain inaccuracies: (e.g. misspellings, inaccurate syntax or word sense) that have escaped review. 2. The nurse practitioner, nursing staff and medical assistants are a major part of YOUR TREATMENT TEAM and will be handling your phone calls and inquiries, if any. Unless explicitly told otherwise at the time of your office visit, your study results and ensuing treatment plans will be discussed during your follow- up appointment. If you do not have a follow-up appointment and wish to discuss any issues, please set up an appointment. 3. It is my practice to not fill disability or any other insurance-related forms/documentation. Allof the office notes, study results, and other pertinent documentation generated as part of your evaluation will be available to you and to your Primary Care Physician (PCP). Use of this material to complete such forms will be at the discretion of your PCP/referring physician. documented in this encounterToledo [facility]03-11-2023 Hospital Discharge instructions Additional Instructions Suspect you have inflammation of the vein however there could be a secondary cellulitis/infection as well so we will start you on antibiotics. Apply warm compresses to the area to help with inflammation and pain. Take Tylenol as needed at home. Continue taking your Eliquis. Follow-up with your primary care doctor in 2 to 3 days for wound check. Return if the redness and pain is worsening if you develop further symptoms/further concerns.[facility] Work Phone: [phone] Miscellaneous Notes* Telephone Encounter - Lacy Figueroa RN - 01/16/2023 2:08 PM EST [email or web address] message sent at this time * Telephone Encounter - Lacy Figueroa RN - 01/16/2023 2:06 PM EST This RN attempted to contact patient X3 at this time Phone line was busy Will send update via [employer] message since unable to get through via phone * Telephone Encounter - Krystin Hernandez APRN.CNP - 01/15/2023 3:58 PM EST Recommend a oral OTC antihistamine like, Magalie or Claritin both are non drowsy or Benadryl but will causes drowsiness. * Telephone Encounter - Renetta Lane - 01/15/2023 8:45 AM EST Patient called that he was on Robaxin that Krystin prescribed, and got hives, his BP went up and was SOB. He stopped the med on Sunday but is still having issues. Please call patient and advise. TY documented in this encounterToledo Hospital02-17-2023 Miscellaneous Notes* Telephone Encounter - Sonia Us LPN - 01/05/2023 2:32 PM EST I spoke to and informed him of Cami's response to lab results. Patient voiced understanding. Sonia Us LPN * Telephone Encounter - Sonia Us LPN - 01/05/2023 2:31 PM EST ----- Message from Cami Renner APRN.[employer]ENTAL FLOSS PACKER sent at 01/05/2023 2:19 PM EST ----- Please call the patient and report lab results revealed CBC normal and BMP stable. Thanks, Cami Renner APRN.DENTAL FLOSS PACKER documented in this encounterToledo Hospital02-17-2023 Instructions* Patient Instructions* Rashaun Manning Jr., MD - 01/05/2023 9:53 AM EST Your most recent body mass index (BMI) that we have on record is 34.43 kg/m2. Obstructive sleep apnea (ETHAN) worsens with an increase in weight; reduction in weight may improve or resolve your ETHAN. Ifyou are not already seeking treatment, there are resources available at the [facility] such as a nutrition consultation or referral to weight management programs at our [facility]. Please let us know if we can assist with a referral. documented in this encounterToledo Hospital02-17-2023 History of Present illness Narrative* Rashaun Manning Jr., MD - 01/05/2023 8:50 AM EST ESTABLISHED PATIENT VISIT CHIEF COMPLAINT: Follow U HISTORY OF PRESENT ILLNESS: Jg Chahal is a 82 year old male, BMI 34.43 kg/m2 with a PMH significant for and per last office visit of 09/04/22: 1. Vertigo - ICD9: 780.4, ICD10: R42 (primary diagnosis) As described above and in setting of CP with known history of afib. Records from [facility] not available for review except for CT brain report indicating no evidence of acute findings. Concern vertigo still may have represent TIA vs small stroke not declared on CT. Feel appropriate to follow up with MRI brain with MRA head and neck. Discussed with pt but he declines at this time. States he will discuss with family and inform us if he changes his mind. 2. ETHAN on CPAP - ICD9: 327.23, V46.8, ICD10: G47.33, Z99.89 No updated PAP data download available for review. However AHI controlled earlier this year. Pt reports DME allowing for new device. Thus, will send Rx, but will order AutoPAP to allow for adjustments in PAP setting as needed in upcoming years. Encouraged PAP compliance. Advised pt not to drive or operate heavy machinery if sleepy. 3. Parasomnia, unspecified type - ICD9: 307.47, ICD10: G47.50 Stable on melatonin 5mg QHS. Discussed possible transition to Klonopin but pt does not feel need for this yet. Will continue to follow up on symptoms in upcoming months. 4. Cervicalgia - ICD9: 723.1, ICD10: M54.2 5. History of fusion of cervical spine - ICD9: V45.4, ICD10: Z98.1 Reviewed recent MRI C spine. Will refer to Dr. Bowling of spine/pain who has previously evaluated pt for lumbar disease. PAP data download shows 90/90 days use leading up to the appointment. Avg of 8 hours and 37 minutesper night. 95% pressure is 11.9 cmH2O. Residual AHI is 0.5. 95% leak is 28.3 LPM. Patient states injections to the neck did not help and neck pain is primary complaint. Note he is following with pain mgmt. They started him on muscle relaxants overnight. Not radiating into upper extremities. Pt never had MRI brain or MRA head and neck. Stats dizziness now resolved. States not present for now a couple weeks - not even with positional changes. Does reports he is going in for a cardiac cath03/19/23 - they think I have a problem with my heart because Im short of breath. More specifically BOND. Sleep has been good. No issues with PAP device. Going to bed about 7PM, and falls asleep in about 15 minutes. Wakes about 130AM and goes right back to sleep until starting day about 330-4AM. Feels rested in the AM. No parasomnias reported including no behaviors to suggest RBD. REVIEW OF SYSTEMS GENERAL:No weight loss, malaise or fevers. HEENT:Negative for frequent or significant headaches, No changes in hearing or vision, no nose bleeds or other nasal problems NECK:See HPI RESPIRATORY: Negative for cough, wheezing or shortness of breath. CARDIOVASCULAR: Negative for chest pain, leg swelling or palpitations. GASTROINTESTINAL: Negative for abdominal discomfort, blood in stools or black stools or change in bowel habits GENITOURINARY: No history of dysuria, frequency or incontinence MUSCULOSKELETAL: See HPI. NEUROLOGIC:See HPI SKIN:Negative for lesions, rash, and itching. HEMATOLOGIC/LYMPHATIC/IMMUNOLOGIC:Negative for prolonged bleeding, bruising easily or swollen nodes. ENDOCRINE: Negative for cold or heat intolerance, polyuria, polydipsia and goiter. The remainder of the ROS was reviewed and is negative. LAB/IMAGING: Those performed since patient's last visit have been reviewed. WBC (k/uL) Date Value 01/03/2023 9.27 RBC (m/uL) Date Value 01/03/2023 5.04 Hemoglobin (g/dL) Date Value 01/03/2023 14.7 Hematocrit (%) Date Value 01/03/2023 44.2 MCV (fL) Date Value 01/03/2023 87.7 MCH (pg) Date Value 01/03/2023 29.2 MCHC (g/dL) Date Value 01/03/2023 33.3 RDW-CV (%) Date Value 01/03/2023 14.6 Platelet Count (k/uL) Date Value 01/03/2023 216 MPV (fL) Date Value 01/03/2023 9.2 Glucose (mg/dL) Date Value 01/03/2023 90 BUN (mg/dL) Date Value 01/03/2023 15 Creatinine (mg/dL) Date Value 01/03/2023 1.23 (H) Sodium (mmol/L) Date Value 01/03/2023 138 Potassium (mmol/L) Date Value 01/03/2023 3.9 Chloride (mmol/L) Date Value 01/03/2023 103 CO2 (mmol/L) Date Value 01/03/2023 27 Protein, Total (g/dL) Date Value 12/07/2022 6.9 Albumin (g/dL) Date Value 12/07/2022 4.3 Calcium, Total (mg/dL) Date Value 01/03/2023 8.8 Alkaline Phosphatase (U/L) Date Value 12/07/2022 137 (H) Bilirubin, Total (mg/dL) Date Value 12/07/2022 0.7 AST (U/L) Date Value 12/07/2022 16 ALT (U/L) Date Value 12/07/2022 18 Rheumatoid Factor (IU/mL) Date Value 06/21/2005 8 MEDICATIONS: methocarbamol (ROBAXIN) 500 mg tablet Take 1 tablet by mouth twice daily as needed. metoprolol succinate ER (TOPROL XL) 25 mg 24 hr tablet Take 1 tablet by mouth once daily. TAKE ONE-HALF TABLET BY MOUTH ONCE DAILY (Patient taking differently: Take 25 mg by mouth once daily. Taking 50 mg (1 tablet) daily) blood sugar diagnostic (BLOOD GLUCOSE TEST) test strip Test blood sugar(s) 1 times daily. Dx: Type 2 DM - Controlled E11.42 Insulin: No Lancets lancets Test blood sugar(s) 1 times daily. Dx: Type 2 DM - Controlled E11.42 Insulin: No losartan (COZAAR) 50 mg tablet Take 1 tablet by mouth once daily. pantoprazole DR (PROTONIX) 40 mg tablet TAKE ONE TABLET BY MOUTH DAILY ON EMPTY STOMACH ONE-HALF HOUR BEFORE BREAKFAST dofetilide (TIKOSYN) 250 mcg capsule Take 1 capsule by mouth twice daily. amLODIPine (NORVASC) 5 mg tablet Take 1 tablet by mouth once daily. apixaban (ELIQUIS) 5 mg tab(s) Take 1 tablet by mouth twice daily. atorvastatin (LIPITOR) 40 mg tablet Take 1 tablet by mouth once daily. CPAP Patient requesting new DME. Currently has a PAP device (2016 -- may be due for new device). Please fit with a Wisp (currently with Dream wisp and causing discomfort on top of head). Lifetime supplies. nitroglycerin sublingual (NITROSTAT) 0.4 mg SL tablet Dissolve 1 tablet under the tongue every 5 minutes as needed for chest pain. Amoxicillin 500 mg tablet Take 4 tablets by mouth as needed (1 hour before the procedure). docusate sodium (COLACE) 100 mg capsule AT BEDTIME magnesium oxide (MAG-OX) 400 mg tablet Take 1 tablet by mouth once daily. melatonin 3 mg Take 1 tablet by mouth daily at bedtime. Cholecalciferol, Vitamin D3, 1,000 unit cap Take 1 capsule by mouth once daily. vitamin b complex (B COMPLETE) ORAL Tab Take 1 tablet by mouth once daily. HISTORIES PAST MEDICAL HISTORY Diagnosis Date Abdominal pain, right lower quadrant 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 Dr. Tee Clemons, Dermatology Basal cell carcinoma (BCC) of skin of face Mohs 04/2021 Coronary atherosclerosis of unspecified type of vessel, [place] or graft 01/22/2006 moderate Diverticulosis of colon (without mention of hemorrhage) 07/18/2005 Dyslipidemia Dyspepsia and other specified disorders of function of stomach 07/18/2005 Chronic gastritis, Dyspepsia. Gastric ulcer, unspecified as acute or chronic, without mention of hemorrhage or perforation, with obstruction Generalized osteoarthrosis, unspecified site 07/18/2005 H. 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 Lumbago 08/26/2008 Dr. Odin Coon, [facility]. Rotator cuff tear, right 10/21/2012 Salmonella enteritis 08/2010 Type II or unspecified type diabetes mellitus without mention of complication, not stated as uncontrolled 07/08/2007 Unspecified essential hypertension 07/18/2005 FAMILY HISTORY Problem Relation Age of Onset other (CVA) Mother d 89 stroke other (HTN) Mother other (CHF) Mother Ischemic Heart Disease Father Skin Cancer Father bcc other (Lymphoma) Father d 65 lymphoma other (Skin Ca) Brother Melanoma Brother other (Tremors) Brother Cancer Daughter ovarian Diabetes Maternal Grandmother other (Tremors) Brother Melanoma Other maternal uncle SOCIAL HISTORY Social History Tobacco Use Smoking status: Never Smokeless tobacco: Never Vaping Use Vaping Use: Never used Substance Use Topics Alcohol use: No Drug use: No PHYSICAL EXAMINATION BP 132/78 Pulse 82 Resp 16 Wt 99.7 kg (219 lb 12.8 oz) SpO2 97% BMI 34.43 kg/m GENERAL EXAM: General appearance: NAD, pleasant. HEENT: NC/AT, nasal congestion absent, no oral lesions, membranes moist. NECK: No masses, supple. Lungs: CTA bilaterally. CV: s. Extr: No cyanosis, clubbing or edema. Skin: Cool to touch. NEUROLOGICAL EXAM: General: Awake, alert, oriented x3 (person,place,time), speech fluent, no dysarthria; comprehension, naming, repetition intact. CN: PERRL, EOMI and without nystagmus, VFF to confrontation, facial sensation and strength are normal and symmetric, hearing is intact to finger rub bilaterally, palate and tongue movements are intact and symmetric. SCM and trapezius strength normal. Motor: Normal tone, bulk and strength (5/5) bilaterally (throughout extremities x4). Coordination: FNF, LUKASZ, HTS intact. No tremors. Sensation: Light touch, vibration, temperature intact throughout. No evidence of neglect. Gait: Stable with normal stride and arm swing. Assessment and Plan: ASSESSMENT/PLAN: 1. ETHAN on CPAP - ICD9: 327.23, V46.8, ICD10: G47.33, Z99.89 (primary diagnosis) Doing well on PAP. No subjective complaints and objective data download confirm compliance with normalization of AHI. Encouraged continued compliance. Reminded to clean and replace equipment regularly. Advised pt not to drive or operate heavy machinery if sleepy. 2. Parasomnia, unspecified type - ICD9: 307.47, ICD10: G47.50 Stable with no symptoms with pt taking melatonin 3mg at bedtime. No change in therapy at this time. 3. Cervicalgia - ICD9: 723.1, ICD10: M54.2 Encouraged follow up with pain mgmt. Non-focal neuro exam. 4. Vertigo - ICD9: 780.4, ICD10: R42 Resolved. Discussed benefits of still gong through with MRI brain (MRA brain/neck). Pt declines at this time. If changes his mind, order still in system. Rashaun Manning MD I spent a total of 25 minutes on the date of the service which included preparing to see the patient, [id number] patient care, completing clinical documentation, obtaining and/or reviewing separately obtained history, performing a medically appropriate examination, counseling and educating the pat ient/family/caregiver, independently interpreting results (not separately reported), and communicating results to the patient/family/caregiver. documented in [facility]02-[facility]23 Miscellaneous Notes* Telephone Encounter - Consuelo Barnes LPN - 12/28/2022 11:44 AM EST Patient was notified of results and patient given number for Dr Laurent office so they can assist with scheduling his consult appt. * Telephone Encounter - May Loya RN - 12/28/2022 11:34 AM EST Images from the original note were not included. Attempted to contact patient with result message below. Line is busy. Please try patient again. May Loya RN COPIED: 12/28/22 Galindo Yuan MD P Wstr Im Yuan Pool Test results are okay and negative for abdominal aortic aneurysm. documented in this encounterT[facility]02-07-[facility]23 History of Present illness Narrative* Anurag Bah MD - 12/26/2022 5:33 PM EST Patient's records were reviewed in detail. I spoke to Dr.Tanaka Nunez on the phone regarding this patient and his symptoms. I contacted the patient directly and interviewed him over the phone. He has been having worsening shortness of breath on exertion associated with chest burning. Given his known history of coronary artery disease and prior coronary interventions I recommended proceeding with diagnostic cardiac catheterization. Patient was in agreement to proceed with the procedure. documented in this encounterTol[facility]02-03-2023 History of Present illness Narrative* Sonia Carbajal RDMS - 12/22/2022 10:00 AM EST Radiology Service Progress Note PATIENT NAME: Jg Chahal DATE OF SERVICE: December 22, 2022 TIME: 10:06 AM PATIENT IDENTITY VERIFICATION COMPLETED USING TWO (2) IDENTIFIERS: Name and Date of confirmedby patient verbally. FALL SCREENING: Has the patient had 2 falls in the last year or 1 fall with injury or currently using an Ambulatory Assistive Device (Walker, Cane, Wheelchair, Crutches, etc.)? No PATIENT GENDER DATA: Male PATIENT RELEVANT IMPLANT DATA REVIEWED: Not Applicable RADIOLOGY DEPARTMENT: Ultrasound PERIPHERAL IV DATA: Not applicable SIGNED BY: Sonia Carbajal RDMS RV December 22, 2022 10:06 AM documented in this encounterToledo Hospital02-03-2023 Miscellaneous Notes* Result Encounter Note - Galindo Yuan MD - 12/22/2022 10:00 AM EST Test results are okay and negative for abdominal aortic aneurysm. documented in this [facility]02-02-2023 Miscellaneous Notes* Telephone Encounter - Renetta Root RN - 12/21/2022 5:24 PM EST Called to let pharmacy know she increased this today to 25 mg daily so it is 1 tablet daily, Satnam the pharmacist said he would take care of this for us. * Telephone Encounter - Keisha Melendez - 12/21/2022 11:57 AM EST Jg Chahal called today. : 1940 Allergies: Adhesive, Codeine, Darvocet-N 100 [Propoxyphene N-Acetaminophen], Latex, and Meperidine Hcl (home) Reason for call: Dami[place]mart calling regarding the Metoprolol. There are 2 sets of directions. Needs clarification. Can call [phone]. Patient last appointment: 09/27/2022 The patients preferred pharmacy has been captured for this encounter? Keisha Melendez documented in this encounterToledo [facility]02-01-2023 Instructions* Patient Instructions* Galindo Yuan MD - 12/20/2022 9:55 AM EST AVOID GAS FORMING FOODS AND DRINK 1 DAY BEFORE YOUR ABDOMINAL ULTRASOUND. documented in this encounterToledo Hospital02-01-2023 History of Present illness Narrative* Galindo Yuan MD - 12/20/2022 9:33 AM EST This note was created using PetroDE. Subjective Jg Chahal is a 82 year old male. He was mainly dealing with cervicalgia and just had injections yesterday. This may be accounting for his elevated blood pressure today. We reviewed his test results and diabetes mellitus and lipids were well controlled. He will see his journalism teacher tomorrow. He had an incomplete AAA screening 2 years ago. He often gets gassy with specific foods. Review of Systems Constitutional: Negative. Respiratory: Negative. Cardiovascular: Negative. Gastrointestinal: Negative. Neurological: Negative. ACTIVE PROBLEM LIST Hypertensive Chronic Kidney Disease With Stage 1 Through Stage 4 Chronic Kidney Disease, Or Unspecified Chronic Kidney Disease Generalized Osteoarthritis of Multiple Sites Cad (Coronary Artery Disease) Personal history of other malignant neoplasm of skin Chronic Bilateral Low Back Pain Without Sciatica Hypercholesteremia Gerd (Gastroesophageal Reflux Disease) Actinic Keratosis Well Controlled Type 2 Diabetes Mellitus With Peripheral Neuropathy (Hcc) Chronic Anticoagulation Paroxysmal Atrial Fibrillation (Hcc) Arthritis, Midfoot Ethan On Cpap Type 2 Diabetes Mellitus With Stage 3 Chronic Kidney Disease (Hcc) S/P coronary artery stent placement, multiple stent placements, 2008, 2011, 2012. Obesity, Class I, Bmi 30-34.9 Spondylolisthesis of Lumbar Region Sleep Terrors Oropharyngeal Dysphagia Cervical Spondylosis Current Outpatient Medications Medication Sig pantoprazole DR (PROTONIX) 40 mg tablet TAKE ONE TABLET BY MOUTH DAILY ON EMPTY STOMACH ONE-HALF HOUR BEFORE BREAKFAST dofetilide (TIKOSYN) 250 mcg capsule Take 1 capsule by mouth twice daily. metoprolol succinate ER (TOPROL XL) 25 mg 24 hr tablet TAKE ONE-HALF TABLET BY MOUTH ONCE DAILY amLODIPine (NORVASC) 5 mg tablet Take 1 tablet by mouth once daily. apixaban (ELIQUIS) 5 mg tab(s) Take 1 tablet by mouth twice daily. atorvastatin (LIPITOR) 40 mg tablet Take 1 tablet by mouth once daily. blood sugar diagnostic (BLOOD GLUCOSE TEST) test strip Test blood sugar(s) 1 times daily. Dx: Type 2 DM - Controlled E11.42 Insulin: No CPAP Patient requesting new DME. Currently has a PAP device (2015 -- may be due for new device). Please fit with a Wisp (currently with Dream wisp and causing discomfort on top of head). Lifetime supplies. nitroglycerin sublingual (NITROSTAT) 0.4 mg SL tablet Dissolve 1 tablet under the tongue every 5 minutes as needed for chest pain. losartan (COZAAR) 50 mg tablet Take 1 tablet by mouth once daily. Amoxicillin 500 mg tablet Take 4 tablets by mouth as needed (1 hour before the procedure). Lancets lancets Test blood sugar(s) 2 times daily. Dx: Type 2 DM - Controlled E11.42 Insulin: No docusate sodium (COLACE) 100 mg capsule AT BEDTIME magnesium oxide (MAG-OX) 400 mg tablet Take 1 tablet by mouth once daily. melatonin 3 mg Take 1 tablet by mouth daily at bedtime. Cholecalciferol, Vitamin D3, 1,000 unit cap Take 1 capsule by mouth once daily. vitamin b complex (B COMPLETE) ORAL Tab Take 1 tablet by mouth once daily. No current facility-administered medications for this visit. Objective BP 138/64 (BP Site: Left Arm, BP Position: Sitting, BP Cuff Size: Large Adult) Pulse 76 Temp 36.8 C (98.2 F) (Temporal) Resp 20 Wt 99.3 kg (219 lb) BMI 34.30 kg/m Physical Exam Constitutional: General: He is not in acute distress. Cardiovascular: Rate and Rhythm: Normal rate and regular rhythm. Heart sounds: No murmur heard. No gallop. Pulmonary: Breath sounds: Normal breath sounds. Musculoskeletal: Right lower leg: No edema. Left lower leg: No edema. Neurological: Mental Status: He is alert. Gait: Gait normal. Component Latest Ref Rng & Units 12/07/2022 Protein, Total 6.3 - 8.0 g/dL 6.9 Albumin 3.9 - 4.9 g/dL 4.3 Calcium 8.5 - 10.2 mg/dL 9.4 Bilirubin, Total 0.2 - 1.3 mg/dL 0.7 Alkaline Phosphatase 38 - 113 U/L 137 (H) AST 14 - 40 U/L 16 ALT 10 - 54 U/L 18 Glucose 74 - 99 mg/dL 101 (H) BUN 9 - 24 mg/dL 20 Creatinine 0.73 - 1.22 mg/dL 1.25 (H) Sodium 136 - 144 mmol/L 139 Potassium 3.7 - 5.1 mmol/L 4.2 Chloride 97 - 105 mmol/L 104 CO2 22 - 30 mmol/L 25 Anion Gap 9 - 18 mmol/L 10 eGFR >=60 mL/min/1.73m 57 (L) WBC 3.70 - 11.00 k/uL 6.70 RBC 4.20 - 6.00 m/uL 5.07 Hemoglobin 13.0 - 17.0 g/dL 14.8 Hematocrit 39.0 - 51.0 % 44.0 MCV 80.0 - 100.0 fL 86.8 MCH 26.0 - 34.0 pg 29.2 MCHC 30.5 - 36.0 g/dL 33.6 RDW-CV 11.5 - 15.0 % 13.9 Platelet Count 150 - 400 k/uL 231 MPV 9.0 - 12.7 fL 10.3 Absolute nRBC <0.01 k/uL <0.01 Cholesterol, Total <200 mg/dL 88 Triglyceride <150 mg/dL 51 HDL Cholesterol >39 mg/dL 34 (L) Non HDL Cholesterol <130 mg/dL 54 Fasting Time hrs 13 VLDL Cholesterol <30 mg/dL 10 TC:HDL Ratio <5.10 2.59 LDL Cholesterol <100 mg/dL 44 LDL:HDL Ratio <2.54 1.29 Creatinine, Ur Random (UCRR) 20.0 - 300.0 mg/dL 26.7 Albumin, Urine Random mg/L <12.0 Albumin/Creat Ratio Hemoglobin A1C 4.3 - 5.6 % 5.8 (H) Estimated Average Glucose mg/dL 120 Magnesium 1.7 - 2.3 mg/dL 2.1 Assessment and Plan 1. Hypertensive 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 4 chronic kidney disease, or unspecified chronic kidney disease - ICD9: 403.90, ICD10: I12.9 (primary diagnosis) - good control - Continue current medication(s) - Goal of BP <130/80 - BASIC METABOLIC PNL 2. 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) - ICD9: 250.60, 357.2,ICD10: E11.42 Controlled. - Continue current medications - BLOOD GLUCOSE TEST STRIPS - LANCETS - BASIC METABOLIC PNL - HGB A1C 3. Essential hypertension - ICD9: 401.9, ICD10: I10 - good control - Continue current medication(s) - Goal of BP <130/80 - LOSARTAN 50 MG TABLET 4. Paroxysmal atrial fibrillation (HCC) - ICD9: 427.31, ICD10: I48.0 Controlled, anticoagulated. 5. Need for COVID-19 vaccine - ICD9: V04.89, ICD10: Z23 - [email or web address] COVID-19 BIVALENT BOOSTER VACCINE, AGE 12+ YR 6. Screening for AAA (abdominal aortic aneurysm) - ICD9: V81.2, ICD10: Z13.6 See printed instructions or information. - SCREENING FOR AAA Galindo Yuan MD documented in this encounterT[facility]01-16-2023 Miscellaneous Notes* Telephone Encounter - Nelson Mitchell Ma - 12/04/2022 9:10 AM EST CRISTIN: 06/19/2022 protonix Last refill: 12/07/2021 QTY: 90 Refills: 3 tikosyn Last refill: 11/07/2021 QTY: 180 Refills: 3 * Telephone Encounter - Chelsey Casillas - 12/04/2022 8:04 AM EST Patient has been identified by name and date of : Yes Requested Prescriptions Pending Prescriptions Disp Refills pantoprazole DR (PROTONIX) 40 mg tablet 90 tablet 3 Sig: TAKE ONE TABLET BY MOUTH DAILY ON EMPTY STOMACH ONE-HALF HOUR BEFORE BREAKFAST dofetilide (TIKOSYN) 250 mcg capsule 180 capsule 3 Sig: Take 1 capsule by mouth twice daily. RX INSTRUCTIONS: Patient aware RX will be sent to pharmacy. No need to notify patient. Chelsey Casillas documented in this encounterToledo Hospital12-29-2022 Miscellaneous Notes* Telephone Encounter - Hope Guaman - 11/16/2022 2:42 PM EST Patient has been identified by name and date of : Yes, Provider ANA EDWARDS Patient phones for refill(s): Requested Prescriptions Pending Prescriptions Disp Refills metoprolol succinate ER (TOPROL XL) 25 mg 24 hr tablet 90 tablet 3 Sig: TAKE ONE-HALF TABLET BY MOUTH ONCE DAILY Date of last office visit in primary care: 06/19/22 Labs-08/21/22 NOV-12/20/22 med filled 11/14/21 Last 2 Encounter Wt Readings: Date: Wt: 11/16/2022 95.7 kg (211 lb) 09/25/2022 95.3 kg (210 lb) Previous labs/tests for medication: Not applicable Please advise. Thank you. Hope Guaman documented in this encounterToledo Hospital12-19-2022 Miscellaneous Notes* Telephone Encounter - Griselda Stark LPN - 11/06/2022 2:32 PM EST Patient has been identified by name and date of : Yes Patient phones for refill(s): Requested Prescriptions Pending Prescriptions Disp Refills amLODIPine (NORVASC) 5 mg tablet 90 tablet 3 Sig: Take 1 tablet by mouth once daily. Date of last office visit in primary care: 06/19/2022 6 month follow-up: 12/20/2022 Last 2 Encounter Wt Readings: Date: Wt: 09/25/2022 95.3 kg (210 lb) 09/04/2022 100.7 kg (222 lb) Previous labs/tests for medication: Blood Pressure: BUN (mg/dL) Date Value 08/21/2022 20 11/17/2021 11 Sodium (mmol/L) Date Value 08/21/2022 139 11/17/2021 140 Last 1 Encounter BP Readings: Date: BP: 09/25/2022 127/73 Please advise. Thank you. Griselda Stark LPN * Telephone Encounter - Lorna Worrell Pss - 11/06/2022 8:49 AM EST Patient has been identified by name and date of : Yes Requested Prescriptions Pending Prescriptions Disp Refills amLODIPine (NORVASC) 5 mg tablet 90 tablet 3 Sig: Take 1 tablet by mouth once daily. RX INSTRUCTIONS: Patient aware RX will be sent to pharmacy. No need to notify patient. Lorna Worrell Pss documented in this encounterT[facility]edo Hospital11-09-2022 Miscellaneous Notes* Addendum Note - Ana Edwards APRN.CNP - 09/27/2022 10:27 AM ESTAddended by: ANA EDWARDS on: 09/27/2022 10:27 AM Modules accepted: Orders * Telephone Encounter - Nelson Mitchell Ma - 09/27/2022 9:24 AM EST CRISTIN: 06/19/2022 Last refill: 09/05/2021 QTY: 60 Refills: 11 * Telephone Encounter - May Juarez Pss - 09/27/2022 9:17 AM EST Patient has been identified by name and date of : Yes Last office visit in this department: Visit date not found RX INSTRUCTIONS: Patient aware RX will be sent to pharmacy. No need to notify patient. Patient phones requesting refills as follows: Requested Prescriptions Pending Prescriptions Disp Refills apixaban (ELIQUIS) 5 mg tab(s) 60 tablet 11 Sig: Take 1 tablet by mouth twice daily. Please review and advise. May Greenberg documented in this encounterToledo Hospital11-07-2022 History of Present illness Narrative* Renan Bowling MD - 09/25/2022 9:36 AM EST [facility] Date: September 25, 2022 - 9:37 AM Chief Complaint: neck pain SUBJECTIVE: Mr. Chahal presents to the [facility] for a follow up appointment regarding chronic neck pain. He states that since the last visit symptoms have been persistent. The pain is located in the right posterior cervical region and radiates to posterior occiput and right shoulder blade . // The pain is described as constant and worse with movement and is rated as 5 on a scale of 0-10. Thepatient reports stiffness and denies numbness and tingling. Symptoms interfere with physical activity, sleeping, driving, and reaching for shelves. The pain is exacerbated by moving his head. The pain is mitigated by unable to pinpoint positions/factors that are mitigating. He is not currently receiving medications through the [facility]. REVIEW OF SYSTEMS: Constitutional: (-) Fever (-) Night Sweats (-) Weight Gain (-) Weight Loss (-) Fatigue Cardiovascular: (-) Chest Pain (-) Palpitations (-) Lightheadedness (-) Swelling of Ankles (-) Hx Heart Surgery Respiratory: (-) Shortness of Breath (-) Cough (-) Wheezing (-) Snoring Gastrointestinal: (-) Incontinence (-) Abdominal Pain (-) Diarrhea (-) Constipation (-) Nausea/Vomiting (-) Heart Burn Endocrine: (-) Thyroid Disorder (-) Diabetes Hematologic: (+) Prolonged Bleeding (+) Easy Bruising Genitourinary: (-) Incontinence (-) Frequency (-) Urinary Urgency Skin: (-) Rashes (-) Itching (-) Other Lesions Neurologic: (-) Headache (-) Double Vision (-) Confusion (-) Paralysis Psychiatric: (-) Depression (-) Anxiety (-) Delusions (-) Hallucinations (-) Personal History of Alcohol or Substance Abuse (+) Family History of Alcohol or Substance Abuse PAST MEDICAL HISTORY Diagnosis Date Abdominal pain, right lower quadrant 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 Dr. Tee Clemons, Dermatology Basal cell carcinoma (BCC) of skin of face Mohs 04/2021 Coronary atherosclerosis of unspecified type of vessel, [place] or graft 01/22/2006 moderate Diverticulosis of colon (without mention of hemorrhage) 07/18/2005 Dyslipidemia Dyspepsia and other specified disorders of function of stomach 07/18/2005 Chronic gastritis, Dyspepsia. Gastric ulcer, unspecified as acute or chronic, without mention of hemorrhage or perforation, with obstruction Generalized osteoarthrosis, unspecified site 07/18/2005 H. 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 Lumbago 08/26/2008 Dr. Odin Coon, [facility]. Rotator cuff tear, right 10/21/2012 Salmonella enteritis 08/2010 Type II or unspecified type diabetes mellitus without mention of complication, not stated as uncontrolled 07/08/2007 Unspecified essential hypertension 07/18/2005 PAST SURGICAL HISTORY Procedure Laterality Date ARTHROSCOPY KNEE DIAGNOSTIC W/WO SYNOVIAL BX SPX 11/2003 Arthroscopy, knee ARTHRP ACETBLR/PROX FEM PROSTC AGRFT/ALGRFT Right 08/07/2016 Hip replacement, total ARTHRP KNE CONDYLE&PLATU MEDIAL&LAT COMPARTMENTS 2002 Knee replacement, total, left ARTHRP KNE CONDYLE&PLATU MEDIAL&LAT COMPARTMENTS Left 10/01/2017 revision L TKA, [facility] CC ABLATION SVT 04/06/2017 EP study, ablation for A.fib. COLONOSCOPY FLX DX W/COLLJ SPEC WHEN PFRMD 12/24/2002 Colonoscopy COLONOSCOPY FLX DX W/COLLJ SPEC WHEN PFRMD 05/11/2011 Colonoscopy ESOPHAGOGASTRODUODENOSCOPY TRANSORAL DIAGNOSTIC 03/18/2007 EGD ESOPHAGOGASTRODUODENOSCOPY TRANSORAL DIAGNOSTIC 06/11/2007 EGD ESOPHAGOGASTRODUODENOSCOPY TRANSORAL DIAGNOSTIC 05/11/2011 EGD LOPEZ W/O FACETEC FORAMOT/DSC 1/2 VRT SGM CRV 2000 Laminectomy, cervical LAMINECTOMY W/O FFD > 2 VERT SEG LUMBAR 11/05/2008 lumbar fusion LAMINOTOMY (HEMILAMINECTOMY), WITH DECOMPRESSION OF NERVE ROOT(S) Bilateral 05/02/2019 Revision hemilaminectomies L2,L3,L4-L5 LEFT HEART CATH,PERCUTANEOUS 01/22/2006 Cardiac cath, L heart LEFT HEART CATH,PERCUTANEOUS 05/31/2011 Cardiac cath, L heart LEFT HEART CATH,PERCUTANEOUS 11/27/2011 Cardiac cath, L heart LEFT HEART CATH,PERCUTANEOUS 11/27/2013 Cardiac cath, L heart NEUROPLASTY &/TRANSPOS MEDIAN NRV CARPAL TUNNE 1995 Carpal tunnel decomp R/L OPEN REPAIR OF ROTATOR CUFF ACUTE 1996 Rotator cuff repair, bilateral OPEN REPAIR OF ROTATOR CUFF CHRONIC Left 12/28/2014 Left shoulder open rotator cuff repair and Sub Ac decompression SHX TOTAL SHOULDER REVERSE Left 02/01/2022 Left reverse total shoulder arthroplasty TRANSCATH STENT INIT VESSEL,PERCUT 08/26/2009 Transcath stent init vessel percut TRANSCATH STENT INIT VESSEL,PERCUT 11/16/2010 Transcath stent init vessel percut ALLERGIES Allergen Reactions Adhesive Hives Codeine HEART PALPITATIONS Darvocet-N 100 [Pro* Intolerance Heart racing Latex Hives Meperidine Hcl Current Outpatient Medications Medication Sig atorvastatin (LIPITOR) 40 mg tablet Take 1 tablet by mouth once daily. blood sugar diagnostic (BLOOD GLUCOSE TEST) test strip Test blood sugar(s) 1 times daily. Dx: Type 2 DM - Controlled E11.42 Insulin: No CPAP Patient requesting new DME. Currently has a PAP device (2016 -- may be due for new device). Please fit with a Wisp (currently with Dream wisp and causing discomfort on top of head). Lifetime supplies. pantoprazole DR (PROTONIX) 40 mg tablet TAKE ONE TABLET BY MOUTH DAILY ON EMPTY STOMACH ONE-HALF HOUR BEFORE BREAKFAST nitroglycerin sublingual (NITROSTAT) 0.4 mg SL tablet Dissolve 1 tablet under the tongue every 5 minutes as needed for chest pain. metoprolol succinate ER (TOPROL XL) 25 mg 24 hr tablet TAKE ONE-HALF TABLET BY MOUTH ONCE DAILY amLODIPine (NORVASC) 5 mg tablet Take 1 tablet by mouth once daily. losartan (COZAAR) 50 mg tablet Take 1 tablet by mouth once daily. dofetilide (TIKOSYN) 250 mcg capsule Take 1 capsule by mouth twice daily. Amoxicillin 500 mg tablet Take 4 tablets by mouth as needed (1 hour before the procedure). apixaban (ELIQUIS) 5 mg tab(s) Take 1 tablet by mouth twice daily. Lancets lancets Test blood sugar(s) 2 times daily. Dx: Type 2 DM - Controlled E11.42 Insulin: No docusate sodium (COLACE) 100 mg capsule AT BEDTIME magnesium oxide (MAG-OX) 400 mg tablet Take 1 tablet by mouth once daily. melatonin 3 mg Take 1 tablet by mouth daily at bedtime. Cholecalciferol, Vitamin D3, 1,000 unit cap Take 1 capsule by mouth once daily. vitamin b complex (B COMPLETE) ORAL Tab Take 1 tablet by mouth once daily. No current facility-administered medications for this visit. I have reviewed the nurses notes and I am aware of the family/social history. Since the last evaluation the medical history has not changed. PDMP website checked and validated. All prescriptions have been APPROPRIATELY filled. No suspiciousactivity was identified. 09/25/2022 by Renan Bowling MD Narcotic Agreement reviewed and signed?: N/A on September 25, 2022 Urine Panel: No results found for: UQCANN, UQBNZL, SKF3JTJ, UQAMPH, UQMAMP, UQBUPRE, UQNORBUP, UQMTHD, UQEDDP, UQTRAM, UQDTRM, UQFNTL, UQNFTL, UQCODE, UQMORP, UQDCDN, UQHCOD, UQOXYC, UQHMOR, UQOXYM, UQCREA, UQPH,UQSPGR, UQOXID, UQSPQ The pain panel was N/A PHYSICAL EXAMINATION: Performed in conjunction with observation. The patient was alert and oriented x3. The patient was in no acute distress. Lungs: Clear, negative for dyspnea or distress. CVR: Regular Rate. Negative for SOB or peripheral edema. Neck: Supple. The range of motion was i limited. Positive tenderness palpation the right paracervical muscle in the upper cervical region. Cervical facet loading: Positive Spurling's: Negative Back: Range of motion of the trunk was generally intact. Extremities: no reported edema or erythema. Motor: Negative focal deficits Sensory: Intact to light touch and sharp throughout the upper extremities ASSESSMENT: Cervicalgia History of fusion of cervical spine Cervical spondylosis (primary encounter diagnosis) PLAN: Prior available imaging studies were reviewed. Findings were discussed. Injection history was reviewed. Medication use and compliance were reviewed. 1. MRI reviewed. The patient has prior anterior cervical fusion from C3-C6. He has hypertrophic facet changes above the fusion particularly at C2-C3 and C3-C4 levels. Recommend cervical facet injection as a diagnostic/therapeutic option. 2. Interventional procedure options discussed. Right C2-3 for cervical facet medial branch nerve blocks. 3. Requested Prescriptions No prescriptions requested or ordered in this encounter 4. Encouraged regular home exercise program. 5) F/U in 3 months The treatment plan was discussed with the patient during the office visit and they verbalized an understanding of it. I have discussed and confirmed the above treatment plan with the patient and I have reviewed the nurses notes and I am aware of the family/social history. I have confirmed ROS findings. Renan Bowling MD cc: Dr. Galindo Yuan MD cc: Rashaun Manning [id number] [facility] [address] REPLACED BY [facility] [phone] Results of consultation to be transmitted via electronic medical record for those providers who practice within [facility] or with access to [employer] via [employer] Connect, or via letter. documented in this encounterToledo Hospital10-18-2022 Miscellaneous Notes* Telephone Encounter - ELIE Giles - 09/05/2022 10:18 AM EDT Order for new PAP machine faxed to [facility] with required documentation. ELIE Giles documented in this encounterToledo Hospital10-18-2022 Miscellaneous Notes* Telephone Encounter - Shantanu Munoz RN - 09/05/2022 9:11 AM EDT Patient asking Dr. Manning to please order MRI (shoulders, veins in neck, and head). Asking office tophone him to schedule once order is in place. documented in this encounterToledo Hospital10-17-2022 History of Present illness Narrative* Rashaun Manning Jr., MD - 09/04/2022 4:50 PM EDT ESTABLISHED PATIENT VISIT CHIEF COMPLAINT: Follow Up HISTORY OF PRESENT ILLNESS: Jg Chahal is a 82 year old male, BMI 34.77 kg/m2 with a PMH significant for and per last office visit note of 05/01/2022: ASSESSMENT/PLAN: 1. ETHAN on CPAP - ICD9: 327.23, V46.8, ICD10: G47.33, Z99.89 Doing well on PAP subjectively and objectively. However, pt requesting new DME. Referral will be provided. In addition ordering a regular Wisp nasal mask due to complaints of discomfort with current dream wisp mask. Encouraged PAP compliance. Reminded to clean and replace equipment regularly. Advised pt not to drive or operate heavy machinery when sleepy. 2. 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 Etiology uncertain at this time. Possible RBD. However, frequency not increasing. Discussed with pt and he would prefer to not take additional meds at this time when weight risks of side effects vs benefits -- further supported by patient only having 1 episode per year. Advised to continue melatonin 3mg nightly for now, but if was to have anotherepisode to increase to 6mg nightly. Again, encouraged PAP compliance. Encouraged maintenance of regular sleep schedule. Advised to avoid ETOH prior to bedtime. Explained means of safe guarding the bedroom to avoid injury. 3. Cervicalgia - ICD9: 723.1, ICD10: M54.2 4. Spinal stenosis of cervical region - ICD9: 723.0, ICD10: M48.02 5. History of fusion of cervical spine - ICD9: V45.4, ICD10: Z98.1 Pain as above that appears to involve R C2, C3, C4 dermatomes and travel through the L greater occipital nerve. Therapy completed and has provided no relief of symptoms. Prior C spine fusion as above~25 years ago. At this time pt would like to hold on meds as he feels they always impact his heart in a negative manner. However will further evaluate for cause of symptoms by means of MRI C spine wo contrast. Depending on findings may need pain mgmt follow up (pt would prefer to stay in [place] area). Pt states had a spell with his heart since last seen - elevated BP with chest and L neck pain. No response to Nitro. EMS took to hospital and had a dizzy spell there. was evaluated in hospitaland discharged with reported unremarkable workup and told to follow up with his health services information specialist (scheduled). had great burning in his chest. States had vertigo for 8 hours - definite spinningwith ataxia. Has not had since. Only had CT brain and no MRI - CT done at first onset of symptoms. Neck still hurts. States worse when sits upright or flexes neck, but if extends neck and stretches it out, it is not so bad. Previously saw by pain specialist Dr. Sousa who told pt he would not touch him anymore (re injections and per pt) and was referred to [facility]. Pt willing to see spine and pain in [place]. States CPAP has a lot of age on it. They (the DME) recommended he get an order for a new device. CPAP at 7 cmH2O. Last download earlier this year showed compliance with AHI of <1.0. States no episodes of dream enactment. He is taking melatonin 5mg at night. Maybe 2 episodes total since last seen. States he has stupid dreams then wakes in the AM feeling tired, but he is not. No injurious behaviors - primarily sleep talking. REVIEW OF SYSTEMS GENERAL:No weight loss, malaise or fevers. HEENT:Negative for frequent or significant headaches, No changes in hearing or vision, no nose bleeds or other nasal problems NECK:Negative for lumps, goiter, pain and significant neck swelling RESPIRATORY: Negative for cough, wheezing or shortness of breath. CARDIOVASCULAR: See HPI GASTROINTESTINAL: Negative for abdominal discomfort, blood in stools or black stools or change in bowel habits GENITOURINARY: No history of dysuria, frequency or incontinence MUSCULOSKELETAL: See HPI NEUROLOGIC:Negative for focal numbness or weakness, headaches and dizziness or syncope, vision changes, speech/languag changes - EXCEPT that as per HPI above. SKIN:Negative for lesions, rash, and itching. HEMATOLOGIC/LYMPHATIC/IMMUNOLOGIC:Negative for prolonged bleeding, bruising easily or swollen nodes. ENDOCRINE: Negative for cold or heat intolerance, polyuria, polydipsia and goiter. The remainder of the ROS was reviewed and is negative. LAB/IMAGING: Those performed since patient's last visit have been reviewed. WBC (k/uL) Date Value 06/09/2022 6.52 RBC (m/uL) Date Value 06/09/2022 5.06 Hemoglobin (g/dL) Date Value 06/09/2022 14.3 Hematocrit (%) Date Value 06/09/2022 45.0 MCV (fL) Date Value 06/09/2022 88.9 MCH (pg) Date Value 06/09/2022 28.3 MCHC (g/dL) Date Value 06/09/2022 31.8 RDW-CV (%) Date Value 06/09/2022 14.0 Platelet Count (k/uL) Date Value 06/09/2022 244 MPV (fL) Date Value 06/09/2022 10.5 Glucose (mg/dL) Date Value 08/21/2022 113 (H) BUN (mg/dL) Date Value 08/21/2022 20 Creatinine (mg/dL) Date Value 08/21/2022 1.21 Sodium (mmol/L) Date Value 08/21/2022 139 Potassium (mmol/L) Date Value 08/21/2022 4.3 Chloride (mmol/L) Date Value 08/21/2022 103 CO2 (mmol/L) Date Value 08/21/2022 25 Protein, Total (g/dL) Date Value 11/17/2021 7.1 Albumin (g/dL) Date Value 11/17/2021 4.3 Calcium, Total (mg/dL) Date Value 08/21/2022 9.4 Alkaline Phosphatase (U/L) Date Value 11/17/2021 152 (H) Bilirubin, Total (mg/dL) Date Value 11/17/2021 0.9 AST (U/L) Date Value 11/17/2021 20 ALT (U/L) Date Value 11/17/2021 16 Rheumatoid Factor (IU/mL) Date Value 06/21/2005 8 MEDICATIONS: pantoprazole DR (PROTONIX) 40 mg tablet TAKE ONE TABLET BY MOUTH DAILY ON EMPTY STOMACH ONE-HALF HOUR BEFORE BREAKFAST nitroglycerin sublingual (NITROSTAT) 0.4 mg SL tablet Dissolve 1 tablet under the tongue every 5 minutes as needed for chest pain. metoprolol succinate ER (TOPROL XL) 25 mg 24 hr tablet TAKE ONE-HALF TABLET BY MOUTH ONCE DAILY amLODIPine (NORVASC) 5 mg tablet Take 1 tablet by mouth once daily. losartan (COZAAR) 50 mg tablet Take 1 tablet by mouth once daily. dofetilide (TIKOSYN) 250 mcg capsule Take 1 capsule by mouth twice daily. Amoxicillin 500 mg tablet Take 4 tablets by mouth as needed (1 hour before the procedure). atorvastatin (LIPITOR) 40 mg tablet Take 1 tablet by mouth once daily. apixaban (ELIQUIS) 5 mg tab(s) Take 1 tablet by mouth twice daily. docusate sodium (COLACE) 100 mg capsule AT BEDTIME magnesium oxide (MAG-OX) 400 mg tablet Take 1 tablet by mouth once daily. melatonin 3 mg Take 1 tablet by mouth daily at bedtime. Cholecalciferol, Vitamin D3, 1,000 unit cap Take 1 capsule by mouth once daily. vitamin b complex (B COMPLETE) ORAL Tab Take 1 tablet by mouth once daily. blood sugar diagnostic (BLOOD GLUCOSE TEST) test strip Test blood sugar(s) 1 times daily. Dx: Type 2 DM - Controlled E11.42 Insulin: No CPAP Patient requesting new DME. Currently has a PAP device (2016 -- may be due for new device). Please fit with a Wisp (currently with Dream wisp and causing discomfort on top of head). Lifetime supplies. Lancets lancets Test blood sugar(s) 2 times daily. 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 Dr. Tee Clemons, Dermatology Basal cell carcinoma (BCC) of skin of face Mohs 04/2021 Coronary atherosclerosis of unspecified type of vessel, [place] or graft 01/22/2006 moderate Diverticulosis of colon (without mention of hemorrhage) 07/18/2005 Dyslipidemia Dyspepsia and other specified disorders of function of stomach 07/18/2005 Chronic gastritis, Dyspepsia. Gastric ulcer, unspecified as acute or chronic, without mention of hemorrhage or perforation, with obstruction Generalized osteoarthrosis, unspecified site 07/18/2005 H. 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 Lumbago 08/26/2008 Dr. Odin Coon, [facility]. Rotator cuff tear, right 10/21/2012 Salmonella enteritis 08/2010 Type II or unspecified type diabetes mellitus without mention of complication, not stated as uncontrolled 07/08/2007 Unspecified essential hypertension 07/18/2005 FAMILY HISTORY Problem Relation Age of Onset other (CVA) Mother d 89 stroke other (HTN) Mother other (CHF) Mother Ischemic Heart Disease Father Skin Cancer Father bcc other (Lymphoma) Father d 65 lymphoma other (Skin Ca) Brother Melanoma Brother other (Tremors) Brother Cancer Daughter ovarian Diabetes Maternal Grandmother other (Tremors) Brother Melanoma Other maternal uncle SOCIAL HISTORY Social History Tobacco Use Smoking status: Never Smokeless tobacco: Never Substance Use Topics Alcohol use: No Drug use: No PHYSICAL EXAMINATION BP 130/74 Pulse 92 Wt 100.7 kg (222 lb) SpO2 94% BMI 34.77 kg/m GENERAL EXAM: General appearance: NAD, pleasant. HEENT: NC/AT, nasal congestion absent, no oral lesions, membranes moist. Lungs: CTA bilaterally. CV: RRR nl S1, S2 NEUROLOGICAL EXAM: General: Awake, alert, oriented x3 (person,place,time), speech fluent, no dysarthria; comprehension, naming, repetition intact. CN: PERRL, fundi with no evidence of papilledema, EOMI and without nystagmus, VFF to confrontation,facial sensation and strength are normal and symmetric, hearing is intact to finger rub bilaterally, palate and tongue movements are intact and symmetric. SCM and trapezius strength normal. Motor: Normal tone, bulk and strength (5/5) bilaterally (throughout extremities x4). Coordination: FNF, LUKASZ, HTS intact. No tremors. Sensation: Light touch intact throughout. No evidence of neglect. Gait: Stable with normal stride and arm swing. Romberg normal. Assessment and Plan: ASSESSMENT/PLAN: 1. Vertigo - ICD9: 780.4, ICD10: R42 (primary diagnosis) As described above and in setting of CP with known history of afib. Records from [facility] not available for review except for CT brain report indicating no evidence of acute findings. Concern vertigo still may have represent TIA vs small stroke not declared on CT. Feel appropriate to follow up with MRI brain with MRA head and neck. Discussed with pt but he declines at this time. States he will discuss with family and inform us if he changes his mind. 2. ETHAN on CPAP - ICD9: 327.23, V46.8, ICD10: G47.33, Z99.89 No updated PAP data download available for review. However AHI controlled earlier this year. Pt reports DME allowing for new device. Thus, will send Rx, but will order AutoPAP to allow for adjustments in PAP setting as needed in upcoming years. Encouraged PAP compliance. Advised pt not to drive or operate heavy machinery if sleepy. 3. Parasomnia, unspecified type - ICD9: 307.47, ICD10: G47.50 Stable on melatonin 5mg QHS. Discussed possible transition to Klonopin but pt does not feel need for this yet. Will continue to follow up on symptoms in upcoming months. 4. Cervicalgia - ICD9: 723.1, ICD10: M54.2 5. History of fusion of cervical spine - ICD9: V45.4, ICD10: Z98.1 Reviewed recent MRI C spine. Will refer to Dr. Bowling of spine/pain who has previously evaluated pt for lumbar disease. Follow up with neuro in 3-4 months otherwise. or sooner prn. Rashaun Manning MD I spent a total of 35 minutes on the date of the service which included preparing to see the patient, [id number] patient care, completing clinical documentation, obtaining and/or reviewing separately obtained history, performing a medically appropriate examination, counseling and educating the pat ient/family/caregiver, ordering medications, tests, or procedures, and communicating results to thepatient/family/caregiver. documented in this encounterT[facility]10-03-[facility]22 History of Present illness Narrative* Juan Torres - 08/21/2022 8:10 AM EDT Last saw Dr. Yuan: 06/19/22 Subjective: Patient presents to clinic c/o painful toenails. They state that the nails are especially painful with shoe gear and pressure. Patient states that right 3rd toenail is painful. Patient admits to being diabetic. No other pedal complaints at this time. Patient states no change in medications or medical history since last visit. Objective: Patient presents to clinic ambulating in diabetic shoes Vasc: DP and PT pulses are palpable bilateral. CFT is less than 5 seconds bilateral. Skin temperature is warm to cool proximal to distal bilateral. There is no edema or varicosities noted. Neuro: Protective sensation is intact to the foot and toes when tested with the 5.07 SWM bilateral.Vibratory sensation is absent at the hallux IPJ bilateral. The hallux is downgoing bilateral. Derm: Nails 1-5 b/l are painful, discolored-yellow, thick, crumbly, dystrophic and with subungal debris. Right hallux medial nail border is ingrowing without signs of infection. Skin is of normal turgor, texture and hair growth is present bilateral. There is callus to distal lateral 3rd toe. no ulcerations, scars, verruca or other lesions noted. Ortho: Muscle strength is 5/5 for all pedal groups tested. Ankle joint DF is decreased with the knee extended with no pain or crepitus noted. 1st MPJ ROM is decreased bilateral. Rigid hammertoes 2-5 b/l Assessment: Onychomycosis with pain Diabetes Plan: Patient was seen and evaluated. Nails 1-5 bilateral were debrided in length and thickness. Small bleed from right great toe due to ingrown. Band aide applied. Could consider matrixectomy if nail continues to become an issues Callus reduced to right 3rd toe. Etiology of callus is hammertoe. Small bleed following debridementof callus. Callus debrided with dremmel. In order to perform a complete physical exam, limited shaving of callus area was performed. This incidental service is integral to the evaluation and management visit in order to appropriately manage and treat the patient (for their complaint or for this visit). Band aide applied. Would continue with hammertoe pads to prevent ulceration. Cointinue with diabetic shoe. Patient was instructed on the continued importance of diabetic foot care along with proper diet andkeeping their blood sugar under control to prevent complications. Patient is to RTC in 3-4 months. Juan Torres DPM * Holli Johnson LPN - 08/21/2022 8:06 AM EDT AMB ROOMING INTAKE FLOWSHEET DATA Risk Screening Do you have concerns about personal safety or safety in the home?: No Patient presents with: Left Foot - Established Patient, Follow Up, Diabetic Foot Care Right Foot - Diabetic Foot Care, Established Patient, Follow Up Holli Johnson LPN documented in this encounterToledo Hospital10-03-2022 Instructions* Patient Instructions* Juan Torres - 08/21/2022 8:10 AM EDT Diabetes Foot Care Instructions When you have diabetes, proper foot care is very important. Poor foot care may lead to amputation of a foot or leg. As a person with diabetes, you are more vulnerable to foot problems, because diabetes can damage your nerves and reduce blood flow to your feet. Here are some diabetes foot care tips to follow: Wash and Dry Your Feet Daily Use mild soaps Use warm water Pat your skin dry; do not rub. Thoroughly dry your feet. After washing, use lotion on your feet to prevent cracking. Do not put lotion between your toes. Examine Your Feet Each Day Check the tops and bottoms of your feet. Have someone else look at your feet if you cannot see them. Check for dry, cracked skin. Look for blisters, cuts, scratches, or other sores. Check for redness, increased warmth, or tenderness when touching any area of your feet. Check for ingrown toenails, corns, and calluses. If you get a blister or sore from your shoes, do not pop it. Apply a bandage and wear a differentpair of shoes. Take Care of Your Toenails Cut toenails after bathing, when they are soft. Cut toenails straight across and smooth with a nail file. Avoid cutting into the corners of toes. Do not cut cuticles. If you have neuropathy (or decreased sensation in your feet) a web programmer should always cut your toenails. Be Careful When Exercising Walk and exercise in comfortable shoes. Do not exercise when you have open sores on your feet. Protect Your Feet With Shoes and Socks Never go barefoot. Always protect your feet by wearing shoes or hard-soled slippers or footwear. Avoid shoes with high heels and pointed toes. Avoid shoes that expose your toes or heels (such as open-toed shoes or sandals). These types of shoes increase your risk for injury and potential infections. Try on new footwear with the type of socks you usually wear. Do not wear new shoes for more than an hour at a time. Change your socks daily. Look and feel inside your shoes before putting them on to make sure there are no foreign objects orrough areas. Avoid tight socks. Wear natural-fiber socks (cotton, wool, or a cotton-wool blend). Wear special shoes if your health care provider recommends them. Wear shoes/boots that will protect your feet from various weather conditions (cold, moisture, etc.). Make sure your shoes fit properly. If you have neuropathy (nerve damage), you may not notice that your shoes are too tight. Perform the footwear test described below. Footwear Test Use this simple test to see if your shoes fit correctly: Stand on a piece of paper. (Make sure you are standing and not sitting, because your foot changes shape when you stand.) Trace the outline of your foot. Trace the outline of your shoe. Compare the tracings: Is the shoe too narrow? Is your foot crammed into the shoe? The shoe should be at least 1/2 inch longer than your longest toe and as wide as your foot. Proper Shoe Choices The following types of shoes are best for people with diabetes Closed toes and heels Leather uppers without a seam inside At least 1/2 inch extra space at the end of your longest toe Inside of shoe should be soft with no rough areas Outer sole should be made of stiff material Shoes should be at least as wide as your feet Tips for Foot Care in Diabetes Don't wait to treat a minor foot problem if you have diabetes. Follow your health care provider's guidelines and first aid guidelines. Report foot injuries and infections to your health care provider immediately. Check water temperature with your elbow, not your foot. Do not use a heating pad on your feet. Do not cross your legs. Do not self-treat your corns, calluses, or other foot problems. Go to your health care provider or web programmer to treat these conditions. documented in this encounterToledo Hospital08-24-2022 Instructions* Patient Instructions* Linden Iglesias PA-C - 07/12/2022 11:24 AM EDT [facility] D[facility] Liquid Nitrogen Therapy Care Instructions 1. The area may be red and puffy. Cool compress or a washcloth will help with the discomfort. 2. A blister, even a blood blister, may form. You will feel better if you break it. Use a sterile needle and gently squeeze out the fluid. 3. Clean area with soap and water daily. A band aid is not necessary, but may be used for protection. Change it daily. Do not leave a soiled or wet band aid on the wound. 4. Apply vaseline daily until scab comes off. 5. Aspirin, Tylenol, or Ibuprophen may be used for pain. 6. As soon as scab has formed, you do not need to cleanse area and you may leave the bandage off. The scab will generally fall off in 3-4 weeks on the face, but may take longer on the other areas of the body. 7. Call if you have any problems or questions or if these areas recur or do not go away documented in this encounterToledo Hospital08-24-2022 History of Present illness Narrative* Linden Iglesias PA-C - 07/12/2022 11:08 AM EDT SKIN EXAM FOLLOWUP CC: This patient is a 81 year old male. HPI: -Pt reports he has noticed some new lesions - one on each ear, some on the scalp, and one on the R forearm. Reports they can be irritating. -Pt has no other concerns at this time. 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 Dx: Type 2 DM - Controlled E11.42 Insulin: No CPAP Patient requesting new DME. Currently has a PAP device (2015 -- may be due for new device). Please fit with a Wisp (currently with Dream wisp and causing discomfort on top of head). Lifetime supplies. pantoprazole DR (PROTONIX) 40 mg tablet TAKE ONE TABLET BY MOUTH DAILY ON EMPTY STOMACH ONE-HALF HOUR BEFORE BREAKFAST nitroglycerin sublingual (NITROSTAT) 0.4 mg SL tablet Dissolve 1 tablet under the tongue every 5 minutes as needed for chest pain. metoprolol succinate ER (TOPROL XL) 25 mg 24 hr tablet TAKE ONE-HALF TABLET BY MOUTH ONCE DAILY amLODIPine (NORVASC) 5 mg tablet Take 1 tablet by mouth once daily. losartan (COZAAR) 50 mg tablet Take 1 tablet by mouth once daily. dofetilide (TIKOSYN) 250 mcg capsule Take 1 capsule by mouth twice daily. Amoxicillin 500 mg tablet Take 4 tablets by mouth as needed (1 hour before the procedure). atorvastatin (LIPITOR) 40 mg tablet Take 1 tablet by mouth once daily. apixaban (ELIQUIS) 5 mg tab(s) Take 1 tablet by mouth twice daily. Lancets lancets Test blood sugar(s) 2 times daily. Dx: Type 2 DM - Controlled E11.42 Insulin: No docusate sodium (COLACE) 100 mg capsule AT BEDTIME magnesium oxide (MAG-OX) 400 mg tablet Take 1 tablet by mouth once daily. melatonin 3 mg Take 1 tablet by mouth daily at bedtime. Cholecalciferol, Vitamin D3, 1,000 unit cap Take 1 capsule by mouth once daily. vitamin b complex (B COMPLETE) ORAL Tab Take 1 tablet by mouth once daily. No current facility-administered medications on file prior to visit. ALLERGY: ALLERGIES Allergen Reactions Adhesive Hives Codeine HEART PALPITATIONS Darvocet-N 100 [Pro* Intolerance Heart racing Latex Hives Meperidine Hcl REVIEW OF SYSTEMS: Patient feels well and denies any recent fevers, chills, or nightsweats.. Skin: skin lesions PHYSICAL EXAM: The patient is a pleasant male in no distress. Patient appears healthy, well developed, well nourished and in otherwise good health. Alert and oriented x 3. A skin exam was done of the ears, neck, face, scalp, and bilateral upper extremities. Alexandra Skin Type: II IMPRESSION: [place] scaly papule right ear inferior helix x1, right postauricular x1, vertex scalp x1, crown scalpx1, right frontal scalp x2, left ear inferior helix x1, right posterior forearm x1 Brown and polk stuck on plaques throughout scalp A/P: 1) actinic keratosis - PROCEDURE: Cryosurgery of non-malignant lesion(s) Risks, including but not limited to scarring and postprocedure pain, benefits, alternatives and personnel required for cryosurgery reviewed with patient. Pt verbalizes understanding and wishes to proceed. I personally obtained patient's verbal consent, Linden Iglesias PA-C Cryosurgery performed with Liquid Nitrogen via cryostat spray gun to AK (location: right ear inferior helix x1, right postauricular x1, vertex scalp x1, crown scalp x1, right frontal scalp x2, left ear inferior helix x1, right posterior forearm x1). 7 lesions treated. Wound care instructions provided, pt verbalizes understanding. Pt tolerated treatment well. Linden Iglesias PA-C 2) History of NMSC - Recommend full body skin exam every 6 months for the first 2 years after diagnosis then yearly for life. Recommend SPF 30 or higher daily on all sun exposed areas, reapplying as directed on packaging. 3) Seborrheic keratoses - Discussed etiology, reassured, and educated. Recommend broad spectrum SPF30 or higher daily on all sun exposed areas reapplying as directed on packaging. Pt verbalizes understanding. I counseled the patient after the exam about the ABCDEs of nevus evaluation, pre-cancer, and skin cancer surveillance with monthly self skin exams. Pt agrees to return before scheduled follow up if there are any changing, non-healing, or new lesions on the skin. Follow up in 6 months and PRN The documentation for this note was partially completed by Mima Couch RN acting as scribe for Linden Iglesias PA-C. July 12, 2022 11:12 AM. I, Linden Iglesias PA-C, agree with the Chief Complaint, ROS, and Past Histories independently gathered by the clinical program support assistant, Mima Couch RN, and the remaining scribed note accurately describes my personal service to the patient. July 12, 2022 12:19 PM This note was partially generated using [employer] voice recognition system. Linden Iglesias PA-C documented in this encounterToledo Hospital08-02-2022 History of Present illness Narrative* Faby Georges APRN.DENTAL FLOSS PACKER - 06/20/2022 10:57 AM EDT Images from the original note were not included. [facility] [place] [facility] Department of Cardiovascular Medicine SECTION OF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 ONE-HALF HOUR BEFORE BREAKFAST nitroglycerin sublingual (NITROSTAT) 0.4 mg SL tablet Dissolve 1 tablet under the tongue every 5 minutes as needed for chest pain. metoprolol succinate ER (TOPROL XL) 25 mg 24 hr tablet TAKE ONE-HALF TABLET BY MOUTH ONCE DAILY amLODIPine (NORVASC) 5 mg tablet Take 1 tablet by mouth once daily. losartan (COZAAR) 50 mg tablet Take 1 tablet by mouth once daily. dofetilide (TIKOSYN) 250 mcg capsule Take 1 capsule by mouth twice daily. Amoxicillin 500 mg tablet Take 4 tablets by mouth as needed (1 hour before the procedure). atorvastatin (LIPITOR) 40 mg tablet Take 1 tablet by mouth once daily. apixaban (ELIQUIS) 5 mg tab(s) Take 1 tablet by mouth twice daily. blood sugar diagnostic (BLOOD GLUCOSE TEST) test strip Test blood sugar(s) 2 times daily. Dx: Type 2 DM - Controlled E11.42 Insulin: No Lancets lancets Test blood sugar(s) 2 times daily. Dx: Type 2 DM - Controlled E11.42 Insulin: No docusate sodium (COLACE) 100 mg capsule AT BEDTIME magnesium oxide (MAG-OX) 400 mg tablet Take 1 tablet by mouth once daily. melatonin 3 mg Take 1 tablet by mouth daily at bedtime. Blood-Glucose Meter monitoring kit Glucose Meter of Choice - Kit - Dx: Type 2 DM - Controlled E11.42 Insulin: No Cholecalciferol, Vitamin D3, 1,000 unit cap Take 1 capsule by mouth once daily. vitamin b complex (B COMPLETE) ORAL Tab Take 1 tablet by mouth once daily. HISTORIES PAST MEDICAL HISTORY Diagnosis Date Abdominal pain, right lower quadrant 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 Dr. Tee Clemons, Dermatology Basal cell carcinoma (BCC) of skin of face Mohs 04/2021 Coronary atherosclerosis of unspecified type of vessel, [place] or graft 01/22/2006 moderate Diverticulosis of colon (without mention of hemorrhage) 07/18/2005 Dyslipidemia Dyspepsia and other specified disorders of function of stomach 07/18/2005 Chronic gastritis, Dyspepsia. Gastric ulcer, unspecified as acute or chronic, without mention of hemorrhage or perforation, with obstruction Generalized osteoarthrosis, unspecified site 07/18/2005 H. 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 Lumbago 08/26/2008 Dr. Odin Coon, [facility]. Rotator cuff tear, right 10/21/2012 Salmonella enteritis 08/2010 Type II or unspecified type diabetes mellitus without mention of complication, not stated as uncontrolled 07/08/2007 Unspecified essential hypertension 07/18/2005 FAMILY HISTORY Problem Relation Age of Onset other (CVA) Mother d 89 stroke other (HTN) Mother other (CHF) Mother Ischemic Heart Disease Father Skin Cancer Father bcc other (Lymphoma) Father d 65 lymphoma other (Skin Ca) Brother Melanoma Brother other (Tremors) Brother Cancer Daughter ovarian Diabetes Maternal Grandmother other (Tremors) Brother Melanoma Other maternal uncle SOCIAL HISTORY Social History Tobacco Use Smoking status: Never Smoker Smokeless tobacco: Never Used Substance Use Topics Alcohol use: No Drug use: No PHYSICAL EXAMINATION BP 110/72 Pulse 85 Temp 37.2 C (98.9 F) Resp 18 Wt 98 kg (216 lb) SpO2 97% BMI 32.84 kg/m GENERAL EXAM: General appearance: NAD, pleasant. HEENT: NC/AT, nasal congestion absent, no oral lesions, membranes moist. Flanagan III. NECK: Decreased ROM due to pain. Lungs: CTA bilaterally. CV: RRR nl S1, S2. No carotid bruits. Extr: Extremity pulses palpable and normal. Skin: Cool to touch. NEUROLOGICAL EXAM: General: Awake, alert, oriented x3 (person,place,time), speech fluent, no dysarthria; comprehension, naming, repetition intact. Fund of knowledge grossly normal. CN: PERRL, fundi with no evidence of papilledema, EOMI and without nystagmus, VFF to confrontation,facial sensation and strength are normal and symmetric, hearing is intact to finger rub bilaterally, palate and tongue movements are intact and symmetric. SCM and trapezius strength normal. Motor: Normal tone, bulk and strength (5/5) bilaterally (throughout extremities x4). Coordination: FNF, LUKASZ, HTS intact. No tremors. Sensation: Light touch, vibration, temperature intact throughout. No evidence of neglect. Gait: Stable with normal stride and arm swing. Assessment and Plan: ASSESSMENT/PLAN: 1. ETHAN on CPAP - ICD9: 327.23, V46.8, ICD10: G47.33, Z99.89 Doing well on PAP subjectively and objectively. However, pt requesting new DME. Referral will be provided. In addition ordering a regular Wisp nasal mask due to complaints of discomfort with current dream wisp mask. Encouraged PAP compliance. Reminded to clean and replace equipment regularly. Advised pt not to drive or operate heavy machinery when sleepy. 2. 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 Etiology uncertain at this time. Possible RBD. However, frequency not increasing. Discussed with pt and he would prefer to not take additional meds at this time when weight risks of side effects vs benefits -- further supported by patient only having 1 episode per year. Advised to continue melatonin 3mg nightly for now, but if was to have anotherepisode to increase to 6mg nightly. Again, encouraged PAP compliance. Encouraged maintenance of regular sleep schedule. Advised to avoid ETOH prior to bedtime. Explained means of safe guarding the bedroom to avoid injury. 3. Cervicalgia - ICD9: 723.1, ICD10: M54.2 4. Spinal stenosis of cervical region - ICD9: 723.0, ICD10: M48.02 5. History of fusion of cervical spine - ICD9: V45.4, ICD10: Z98.1 Pain as above that appears to involve R C2, C3, C4 dermatomes and travel through the L greater occipital nerve. Therapy completed and has provided no relief of symptoms. Prior C spine fusion as above~25 years ago. At this time pt would like to hold on meds as he feels they always impact his heart in a negative manner. However will further evaluate for cause of symptoms by means of MRI C spine wo contrast. Depending on findings may need pain mgmt follow up (pt would prefer to stay in [place] area). Rashaun Manning MD I spent a total of 51 minutes on the date of the service which included preparing to see the patient, [id number] patient care, completing clinical documentation, obtaining and/or reviewing separately obtained history, performing a medically appropriate examination, counseling and educating the pat ient/family/caregiver, ordering medications, tests, or procedures, independently interpreting results (not separately reported) and communicating results to the patient/family/caregiver. [facility] History of Past illness Narrative* Problem Noted Date Resolved Date Spinal stenosis, lumbar region with neurogenic c laudication 03/17/2020 05/12/2021 Neck pain 02/09/2020 05/12/2021 History of fusion of lumbar spine 02/04/2020 05/12/2021 History of fusion of cervical spine 02/04/2020 05/12/2021 Other persistent atrial fibrillation 09/08/2019 11/09/2020 Insomnia 08/21/2016 11/06/2018 Basal cell carcinoma 02/23/2015 11/06/2018 Overview: Dr. Macias, [facility] Dermatology Other seborrheic keratosis 02/17/201511/06 Overview: Dr. Tee Clemons, Dermatology Neoplasm of uncertain behavior of skin 5 11/06/2018 Overview: Behind right mid ear Dr. Tee Clemons, Dermatology Hemangioma of skin and subcutaneous tissue 02/1702/16/2016 Overview: Dr. Tee Clemons, Dermatology Pain in joint, shoulder region 02/12/2015 0 02/16/2016 Rotator cuff (capsule) sprain 12/28/2014 Rotator cuff tear, right 10/21/2012 021 Chest pain 04/07/2012 02/16/2016 Overview: Unstable angina vs NSTEMI Multiple admissions for NSTEMI and unstable angina Stress test in Sep 2015 negative Zack negative Plan: - Consider LHC if symptoms get worse Hyperlipidemia 04/07/2012 02/19/2017 DM (diabetes mellitus) 04/07/2012 6 SUMMARY 04/06/2012 09/15/2017 Overview: This is a 71 year old male with CAD (s/p PCI with DARCI in PDA and Ramus), DM, obesity and HTN who presents with typical CP over 12hrs. ECG shows mild diffuse concave ST elevation, less notable than his ECG in November 2011 when a LHC showed stable CAD. Enzymes at [place] negative. Repeat enzymes pending. Plan - Cycle ECG/Enzymes-Negativef for AR - Aspirin/Clopidogrel/BB/Statin/ARB -Stress echo negative for ischemia, discharge 04/09 am. -04/09/2012 Stable DC home. Follow up with Dr Jones. DC home on same meds prior to admit except aspirin reduced from 325mg daily to 81mg daily. SUMMARY 11/24/2011 03/28/2012 Overview: This is a 71 year old male with CAD s/p PCI with DARCI in PDA and Ramus, DM, HTN who presents with atypical CP over the past 5 weeks 1/9 Intermittent chest discomfort all weekend despite negative enzymes, cath today SUMMARY 05/30/2011 09/28/2011 Overview: 72 year old man known to have HTN, DM, hypercholesterolaemia, CAD s/p DARCI to the rPDA 08/2009, DARCI to the [place] 10/2010. He was admitted 05/2011 with chest pain but on repeat LHC was found to have patent stents. He was readmitted 03/2012 with chest pain but was negative for coronary ischaemia on stress echocardiogram evaluation and was medically optimised pre discharge He was admitted to an OSH on 08/24/2012 with sudden onset of chest pain at 10 AM while at a , his initial eval was negative for ACS and he has been transferred to [facility] for further evaluation and management. Started heparin,NTG last night for unstable angina. Cardiac cath - 08/27/2012 Successful PCI of Mid LAD with a 2.5 x 16 mm Promus Element DARCI H. pylori infection 05/30/2011 09/28/2011 Overview: Continue triple therapy Acute gastritis without mention of hemorrhage 09/15/2017 Renal insufficiency 11/16/2010 09/28/2011 Overview: Na Bicarb at cath. 05/30 BUN/Creat 01/12.15 Diabetes mellitus without complication 7 02/16/2016 Overview: - Accuchecks and DM diet - Sliding scale insulin. -HBa1c -5.6%. 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 017 Overview: Continue pravastatin Abdominal pain, right lower quadrant 09/28/2011 documented as of this encounter (statuses as of 05/01/2022) [facility] of Past illness Narrative* Problem Noted Date Resolved Date Spinal stenosis, lumbar region with neurogenic c laudication 03/17/2020 05/12/2021 Neck pain 02/09/2020 05/12/2021 History of fusion of lumbar spine 02/04/2020 05/12/2021 History of fusion of cervical spine 02/04/2020 05/12/2021 Other persistent atrial fibrillation 09/08/2019 11/09/2020 Insomnia 08/21/2016 11/06/2018 Basal cell carcinoma 02/23/2015 11/06/2018 Overview: Dr. Macias, [facility] Dermatology Other seborrheic keratosis 02/17/201511/06 Overview: Dr. Tee Clemons, Dermatology Neoplasm of uncertain behavior of skin 5 11/06/2018 Overview: Behind right mid ear Dr. Tee Clemons, Dermatology Hemangioma of skin and subcutaneous tissue 02/1702/16/2016 Overview: Dr. Tee Clemons, Dermatology Pain in joint, shoulder region 02/12/2015 0 02/16/2016 Rotator cuff (capsule) sprain 12/28/2014 Rotator cuff tear, right 10/21/2012 021 Chest pain 04/07/2012 02/16/2016 Overview: Unstable angina vs NSTEMI Multiple admissions for NSTEMI and unstable angina Stress test in Sep 2015 negative Zack negative Plan: - Consider LHC if symptoms get worse Hyperlipidemia 04/07/2012 02/19/2017 DM (diabetes mellitus) 04/07/2012 6 SUMMARY 04/06/2012 09/15/2017 Overview: This is a 71 year old male with CAD (s/p PCI with DARCI in PDA and Ramus), DM, obesity and HTN who presents with typical CP over 12hrs. ECG shows mild diffuse concave ST elevation, less notable than his ECG in November 2011 when a LHC showed stable CAD. Enzymes at [place] negative. Repeat enzymes pending. Plan - Cycle ECG/Enzymes-Negativef for AR - Aspirin/Clopidogrel/BB/Statin/ARB -Stress echo negative for ischemia, discharge 04/09 am. -04/09/2012 Stable DC home. Follow up with Dr Jones. DC home on same meds prior to admit except aspirin reduced from 325mg daily to 81mg daily. SUMMARY 11/24/2011 03/28/2012 Overview: This is a 71 year old male with CAD s/p PCI with DARCI in PDA and Ramus, DM, HTN who presents with atypical CP over the past 5 weeks 11/27 Intermittent chest discomfort all weekend despite negative enzymes, cath today SUMMARY 05/30/2011 09/28/2011 Overview: 72 year old man known to have HTN, DM, hypercholesterolaemia, CAD s/p DARCI to the rPDA 08/2009, DARCI to the [place] 10/2010. He was admitted 05/2011 with chest pain but on repeat LHC was found to have patent stents. He was readmitted 03/2012 with chest pain but was negative for coronary ischaemia on stress echocardiogram evaluation and was medically optimised pre discharge He was admitted to an OSH on 08/24/2012 with sudden onset of chest pain at 10 AM while at a , his initial eval was negative for ACS and he has been transferred to [facility] for further evaluation and management. Started heparin,NTG last night for unstable angina. Cardiac cath - 08/27/2012 Successful PCI of Mid LAD with a 2.5 x 16 mm Promus Element DARCI H. pylori infection 05/30/2011 09/28/2011 Overview: Continue triple therapy Acute gastritis without mention of hemorrhage 09/15/2017 Renal insufficiency 11/16/2010 09/28/2011 Overview: Na Bicarb at cath. 05/30 BUN/Creat 01/12.15 Diabetes mellitus without complication 7 02/16/2016 Overview: - Accuchecks and DM diet - Sliding scale insulin. -HBa1c -5.6%. 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 017 Overview: Continue pravastatin Abdominal pain, right lower quadrant 09/28/2011 documented as of this encounter (statuses as of 05/01/2022) [facility] illness Narrative* Problem Noted Date Resolved Date Spinal stenosis, lumbar region with neurogenic c laudication 03/17/2020 05/12/2021 Neck pain 02/09/2020 05/12/2021 History of fusion of lumbar spine 02/04/2020 05/12/2021 History of fusion of cervical spine 02/04/2020 05/12/2021 Other persistent atrial fibrillation 09/08/2019 11/09/2020 Insomnia 08/21/2016 11/06/2018 Basal cell carcinoma 02/23/2015 11/06/2018 Overview: Dr. Macias, [facility] Dermatology Other seborrheic keratosis 02/17/201511/06 Overview: Dr. Tee Clemons, Dermatology Neoplasm of uncertain behavior of skin 5 11/06/2018 Overview: Behind right mid ear Dr. Tee Clemons, Dermatology Hemangioma of skin and subcutaneous tissue 02/1702/16/2016 Overview: Dr. Tee Clemons, Dermatology Pain in joint, shoulder region 02/12/2015 0 02/16/2016 Rotator cuff (capsule) sprain 12/28/2014 Rotator cuff tear, right 10/21/2012 021 Chest pain 04/07/2012 02/16/2016 Overview: Unstable angina vs NSTEMI Multiple admissions for NSTEMI and unstable angina Stress test in Sep 2015 negative Zack negative Plan: - Consider LHC if symptoms get worse Hyperlipidemia 04/07/2012 02/19/2017 DM (diabetes mellitus) 04/07/2012 6 SUMMARY 04/06/2012 09/15/2017 Overview: This is a 71 year old male with CAD (s/p PCI with DARCI in PDA and Ramus), DM, obesity and HTN who presents with typical CP over 12hrs. ECG shows mild diffuse concave ST elevation, less notable than his ECG in November 2011 when a LHC showed stable CAD. Enzymes at [place] negative. Repeat enzymes pending. Plan - Cycle ECG/Enzymes-Negativef for AR - Aspirin/Clopidogrel/BB/Statin/ARB -Stress echo negative for ischemia, discharge 04/09 am. -04/09/2012 Stable DC home. Follow up with Dr Jones. DC home on same meds prior to admit except aspirin reduced from 325mg daily to 81mg daily. SUMMARY 11/24/2011 03/28/2012 Overview: This is a 71 year old male with CAD s/p PCI with DARCI in PDA and Ramus, DM, HTN who presents with atypical CP over the past 5 weeks 11/27 Intermittent chest discomfort all weekend despite negative enzymes, cath today SUMMARY 05/30/2011 09/28/2011 Overview: 72 year old man known to have HTN, DM, hypercholesterolaemia, CAD s/p DARCI to the rPDA 08/2009, DARCI to the [place] 10/2010. He was admitted 05/2011 with chest pain but on repeat LHC was found to have patent stents. He was readmitted 03/2012 with chest pain but was negative for coronary ischaemia on stress echocardiogram evaluation and was medically optimised pre discharge He was admitted to an OSH on 08/24/2012 with sudden onset of chest pain at 10 AM while at a , his initial eval was negative for ACS and he has been transferred to [facility] for further evaluation and management. Started heparin,NTG last night for unstable angina. Cardiac cath - 08/27/2012 Successful PCI of Mid LAD with a 2.5 x 16 mm Promus Element DARCI H. pylori infection 05/30/2011 09/28/2011 Overview: Continue triple therapy Acute gastritis without mention of hemorrhage 09/15/2017 Renal insufficiency 11/16/2010 09/28/2011 Overview: Na Bicarb at cath. 05/30 BUN/Creat 01/12.15 Diabetes mellitus without complication 7 02/16/2016 Overview: - Accuchecks and DM diet - Sliding scale insulin. -HBa1c -5.6%. 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 017 Overview: Continue pravastatin Abdominal pain, right lower quadrant 09/28/2011 documented as of this encounter (statuses as of 05/02/2022) [facility] of Past illness Narrative* Problem Noted Date Resolved Date Spinal stenosis, lumbar region with neurogenic c laudication 03/17/2020 05/12/2021 Neck pain 02/09/2020 05/12/2021 History of fusion of lumbar spine 02/04/2020 05/12/2021 History of fusion of cervical spine 02/04/2020 05/12/2021 Other persistent atrial fibrillation 09/08/2019 11/09/2020 Insomnia 08/21/2016 11/06/2018 Basal cell carcinoma 02/23/2015 11/06/2018 Overview: Dr. Macias, [facility] Dermatology Other seborrheic keratosis 02/17/201511/06 Overview: Dr. Tee Clemons, Dermatology Neoplasm of uncertain behavior of skin 5 11/06/2018 Overview: Behind right mid ear Dr. Tee Clemons, Dermatology Hemangioma of skin and subcutaneous tissue 02/1702/16/2016 Overview: Dr. Tee Clemons, Dermatology Pain in joint, shoulder region 02/12/2015 0 02/16/2016 Rotator cuff (capsule) sprain 12/28/2014 Rotator cuff tear, right 10/21/2012 021 Chest pain 04/07/2012 02/16/2016 Overview: Unstable angina vs NSTEMI Multiple admissions for NSTEMI and unstable angina Stress test in Sep 2015 negative Zack negative Plan: - Consider [facility] if symptoms get worse Hyperlipidemia 04/07/2012 02/19/2017 DM (diabetes mellitus) 04/07/2012 6 SUMMARY 04/06/2012 09/15/2017 Overview: This is a 71 year old male with CAD (s/p PCI with DARCI in PDA and Ramus), DM, obesity and HTN who presents with typical CP over 12hrs. ECG shows mild diffuse concave ST elevation, less notable than his ECG in November 2011 when a LHC showed stable CAD. Enzymes at [place] negative. Repeat enzymes pending. Plan - Cycle ECG/Enzymes-Negativef for AR - Aspirin/Clopidogrel/BB/Statin/ARB -Stress echo negative for ischemia, discharge 04/09 am. -04/09/2012 Stable DC home. Follow up with Dr Jones. DC home on same meds prior to admit except aspirin reduced from 325mg daily to 81mg daily. SUMMARY 11/24/2011 03/28/2012 Overview: This is a 71 year old male with CAD s/p PCI with DARCI in PDA and Ramus, DM, HTN who presents with atypical CP over the past 5 weeks 11/27 Intermittent chest discomfort all weekend despite negative enzymes, cath today SUMMARY 05/30/2011 09/28/2011 Overview: 72 year old man known to have HTN, DM, hypercholesterolaemia, CAD s/p DARCI to the r[facility] 08/2009, DARCI to the [place] 10/2010. He was admitted 05/2011 with chest pain but on repeat LHC was found to have patent stents. He was readmitted 03/2012 with chest pain but was negative for coronary ischaemia on stress echocardiogram evaluation and was medically optimised pre discharge He was admitted to an OSH on 08/24/2012 with sudden onset of chest pain at 10 AM while at a , his initial eval was negative for ACS and he has been transferred to [facility] for further evaluation and management. Started heparin,NTG last night for unstable angina. Cardiac cath - 08/27/2012 Successful PCI of Mid LAD with a 2.5 x 16 mm Promus Element DARCI H. pylori infection 05/30/2011 09/28/2011 Overview: Continue triple therapy Acute gastritis without mention of hemorrhage 09/15/2017 Renal insufficiency 11/16/2010 09/28/2011 Overview: Na Bicarb at cath. 05/30 BUN/Creat 01/12.15 Diabetes mellitus without complication 7 02/16/2016 Overview: - Accuchecks and DM diet - Sliding scale insulin. -HBa1c -5.6%. 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 017 Overview: Continue pravastatin Abdominal pain, right lower quadrant 09/28/2011 documented as of this encounter (statuses as of 05/16/2022) [facility] Past illness Narrative* Problem Noted Date Resolved Date Spinal stenosis, lumbar region with neurogenic c laudication 03/17/2020 05/12/2021 Neck pain 02/09/2020 05/12/2021 History of fusion of lumbar spine 02/04/2020 05/12/2021 History of fusion of cervical spine 02/04/2020 05/12/2021 Other persistent atrial fibrillation 09/08/2019 11/09/2020 Insomnia 08/21/2016 11/06/2018 Basal cell carcinoma 02/23/2015 11/06/2018 Overview: Dr. Macias, [facility] Dermatology Other seborrheic keratosis 02/17/201511/06 Overview: Dr. Tee Clemons, Dermatology Neoplasm of uncertain behavior of skin 5 11/06/2018 Overview: Behind right mid ear Dr. Tee Clemons, Dermatology Hemangioma of skin and subcutaneous tissue 02/1702/16/2016 Overview: Dr. Tee Clemosn, Dermatology Pain in joint, shoulder region 02/12/2015 0 02/16/2016 Rotator cuff (capsule) sprain 12/28/2014 Rotator cuff tear, right 10/21/2012 021 Chest pain 04/07/2012 02/16/2016 Overview: Unstable angina vs NSTEMI Multiple admissions for NSTEMI and unstable angina Stress test in Sep 2015 negative Zack negative Plan: - Consider [facility] if symptoms get worse Hyperlipidemia 04/07/2012 02/19/2017 DM (diabetes mellitus) 04/07/2012 6 SUMMARY 04/06/2012 09/15/2017 Overview: This is a 71 year old male with CAD (s/p PCI with DARCI in PDA and Ramus), DM, obesity and HTN who presents with typical CP over 12hrs. ECG shows mild diffuse concave ST elevation, less notable than his ECG in November 2011 when a LHC showed stable CAD. Enzymes at [place] negative. Repeat enzymes pending. Plan - Cycle ECG/Enzymes-Negativef for AR - Aspirin/Clopidogrel/BB/Statin/ARB -Stress echo negative for ischemia, discharge 04/09 am. -04/09/2012 Stable DC home. Follow up with Dr Jones. DC home on same meds prior to admit except aspirin reduced from 325mg daily to 81mg daily. SUMMARY 11/24/2011 03/28/2012 Overview: This is a 71 year old male with CAD s/p PCI with DARCI in PDA and Ramus, DM, HTN who presents with atypical CP over the past 5 weeks 11/27 Intermittent chest discomfort all weekend despite negative enzymes, cath today SUMMARY 05/30/2011 09/28/2011 Overview: 72 year old man known to have HTN, DM, hypercholesterolaemia, CAD s/p DARCI to the r[place]DA 08/2009, DARCI to the [place] 10/2010. He was admitted 05/2011 with chest pain but on repeat LHC was found to have patent stents. He was readmitted 03/2012 with chest pain but was negative for coronary ischaemia on stress echocardiogram evaluation and was medically optimised pre discharge He was admitted to an OSH on 08/24/2012 with sudden onset of chest pain at 10 AM while at a , his initial eval was negative for ACS and he has been transferred to [facility] for further evaluation and management. Started heparin,NTG last night for unstable angina. Cardiac cath - 08/27/2012 Successful PCI of Mid LAD with a 2.5 x 16 mm Promus Element DARCI H. pylori infection 05/30/2011 09/28/2011 Overview: Continue triple therapy Acute gastritis without mention of hemorrhage 09/15/2017 Renal insufficiency 11/16/2010 09/28/2011 Overview: Na Bicarb at cath. 05/30 BUN/Creat 01/12.15 Diabetes mellitus without complication 7 02/16/2016 Overview: - Accuchecks and DM diet - Sliding scale insulin. -HBa1c -5.6%. 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 017 Overview: Continue pravastatin Abdominal pain, right lower quadrant 09/28/2011 documented as of this encounter (statuses as of 05/16/2022) [facility] [facility] History of Past illness Narrative* Problem Noted Date Resolved Date Spinal stenosis, lumbar region with neurogenic c laudication 03/17/2020 05/12/2021 Neck pain 02/09/2020 05/12/2021 History of fusion of lumbar spine 02/04/2020 05/12/2021 History of fusion of cervical spine 02/04/2020 05/12/2021 Other persistent atrial fibrillation 09/08/2019 11/09/2020 Insomnia 08/21/2016 11/06/2018 Basal cell carcinoma 02/23/2015 11/06/2018 Overview: Dr. Macias, [facility] Dermatology Other seborrheic keratosis 02/17/201511/06 Overview: Dr. Tee Clemons, Dermatology Neoplasm of uncertain behavior of skin 5 11/06/2018 Overview: Behind right mid ear Dr. Tee Clemons, Dermatology Hemangioma of skin and subcutaneous tissue 02/1702/16/2016 Overview: Dr. Tee Clemons, Dermatology Pain in joint, shoulder region 02/12/2015 0 02/16/2016 Rotator cuff (capsule) sprain 12/28/2014 Rotator cuff tear, right 10/21/2012 021 Chest pain 04/07/2012 02/16/2016 Overview: Unstable angina vs NSTEMI Multiple admissions for NSTEMI and unstable angina Stress test in Sep 2015 negative Zack negative Plan: - Consider LHC if symptoms get worse Hyperlipidemia 04/07/2012 02/19/2017 DM (diabetes mellitus) 04/07/2012 6 SUMMARY 04/06/2012 09/15/2017 Overview: This is a 71 year old male with CAD (s/p PCI with DARCI in PDA and Ramus), DM, obesity and HTN who presents with typical CP over 12hrs. ECG shows mild diffuse concave ST elevation, less notable than his ECG in November 2011 when a LHC showed stable CAD. Enzymes at [facility] negative. Repeat enzymes pending. Plan - Cycle ECG/Enzymes-Negativef for AR - Aspirin/Clopidogrel/BB/Statin/ARB -Stress echo negative for ischemia, discharge 04/09 am. -04/09/2012 Stable DC home. Follow up with Dr Jones. DC home on same meds prior to admit except aspirin reduced from 325mg daily to 81mg daily. SUMMARY 11/24/2011 03/28/2012 Overview: This is a 71 year old male with CAD s/p PCI with DARCI in PDA and Ramus, DM, HTN who presents with atypical CP over the past 5 weeks 11/27 Intermittent chest discomfort all weekend despite negative enzymes, cath today SUMMARY 05/30/2011 09/28/2011 Overview: 72 year old man known to have HTN, DM, hypercholesterolaemia, CAD s/p DARCI to the [place] 08/2009, DARCI to the [place] 10/2010. He was admitted 05/2011 with chest pain but on repeat LHC was found to have patent stents. He was readmitted 03/2012 with chest pain but was negative for coronary ischaemia on stress echocardiogram evaluation and was medically optimised pre discharge He was admitted to an OSH on 08/24/2012 with sudden onset of chest pain at 10 AM while at a , his initial eval was negative for ACS and he has been transferred to [facility] for further evaluation and management. Started heparin,NTG last night for unstable angina. Cardiac cath - 08/27/2012 Successful PCI of Mid LAD with a 2.5 x 16 mm Promus Element DARCI H. pylori infection 05/30/2011 09/28/2011 Overview: Continue triple therapy Acute gastritis without mention of hemorrhage 09/15/2017 Renal insufficiency 11/16/2010 09/28/2011 Overview: Na Bicarb at cath. 05/30 BUN/Creat 13.15 Diabetes mellitus without complication 7 02/16/2016 Overview: - Accuchecks and DM diet - Sliding scale insulin. -HBa1c -5.6%. 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 017 Overview: Continue pravastatin Abdominal pain, right lower quadrant 09/28/2011 documented as of this encounter (statuses as of 06/09/2022) [facility]04-29[facility] History of Past illness Narrative* Problem Noted Date Resolved Date Spinal stenosis, lumbar region with neurogenic c laudication 03/17/2020 05/12/2021 Neck pain 02/09/2020 05/12/2021 History of fusion of lumbar spine 02/04/2020 05/12/2021 History of fusion of cervical spine 02/04/2020 05/12/2021 Other persistent atrial fibrillation 09/08/2019 11/09/2020 Insomnia 08/21/2016 11/06/2018 Basal cell carcinoma 02/23/2015 11/06/2018 Overview: Dr. Macias, [facility] Dermatology Other seborrheic keratosis 02/17/201511/06 Overview: Dr. Tee Clemons, Dermatology Neoplasm of uncertain behavior of skin 5 11/06/2018 Overview: Behind right mid ear Dr. Tee Clemons, Dermatology Hemangioma of skin and subcutaneous tissue 02/1702/16/2016 Overview: Dr. Tee Clemons, Dermatology Pain in joint, shoulder region 02/12/2015 0 02/16/2016 Rotator cuff (capsule) sprain 12/28/2014 Rotator cuff tear, right 10/21/2012 021 Chest pain 04/07/2012 02/16/2016 Overview: Unstable angina vs NSTEMI Multiple admissions for NSTEMI and unstable angina Stress test in Sep 2015 negative Zack negative Plan: - Consider LHC if symptoms get worse Hyperlipidemia 04/07/2012 02/19/2017 DM (diabetes mellitus) 04/07/2012 6 SUMMARY 04/06/2012 09/15/2017 Overview: This is a 71 year old male with CAD (s/p PCI with DARCI in PDA and Ramus), DM, obesity and HTN who presents with typical CP over 12hrs. ECG shows mild diffuse concave ST elevation, less notable than his ECG in November 2011 when a LHC showed stable CAD. Enzymes at [facility] negative. Repeat enzymes pending. Plan - Cycle ECG/Enzymes-Negativef for AR - Aspirin/Clopidogrel/BB/Statin/ARB -Stress echo negative for ischemia, discharge 04/09 am. -04/09/2012 Stable DC home. Follow up with Dr Jones. DC home on same meds prior to admit except aspirin reduced from 325mg daily to 81mg daily. SUMMARY 11/24/2011 03/28/2012 Overview: This is a 71 year old male with CAD s/p PCI with DARCI in PDA and Ramus, DM, HTN who presents with atypical CP over the past 5 weeks 11/27 Intermittent chest discomfort all weekend despite negative enzymes, cath today SUMMARY 05/30/2011 09/28/2011 Overview: 72 year old man known to have HTN, DM, hypercholesterolaemia, CAD s/p DARCI to the r[place] 08/2009, DARCI to the [place] 10/2010. He was admitted 05/2011 with chest pain but on repeat LHC was found to have patent stents. He was readmitted 03/2012 with chest pain but was negative for coronary ischaemia on stress echocardiogram evaluation and was medically optimised pre discharge He was admitted to an OSH on 08/24/2012 with sudden onset of chest pain at 10 AM while at a , his initial eval was negative for ACS and he has been transferred to [facility] for further evaluation and management. Started heparin,NTG last night for unstable angina. Cardiac cath - 08/27/2012 Successful PCI of Mid LAD with a 2.5 x 16 mm Promus Element DARCI H. pylori infection 05/30/2011 09/28/2011 Overview: Continue triple therapy Acute gastritis without mention of hemorrhage 09/15/2017 Renal insufficiency 11/16/2010 09/28/2011 Overview: Na Bicarb at cath. 05/30 BUN/Creat 01/12.15 Diabetes mellitus without complication 7 02/16/2016 Overview: - Accuchecks and DM diet - Sliding scale insulin. -HBa1c -5.6%. 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 017 Overview: Continue pravastatin Abdominal pain, right lower quadrant 09/28/2011 documented as of this encounter (statuses as of 06/19/2022) [facility]04-29-2020 History of Past illness Narrative* Problem Noted Date Resolved Date Spinal stenosis, lumbar region with neurogenic c laudication 03/17/2020 05/12/2021 Neck pain 02/09/2020 05/12/2021 History of fusion of lumbar spine 02/04/2020 05/12/2021 History of fusion of cervical spine 02/04/2020 05/12/2021 Other persistent atrial fibrillation 09/08/2019 11/09/2020 Insomnia 08/21/2016 11/06/2018 Basal cell carcinoma 02/23/2015 11/06/2018 Overview: Dr. Macias, [facility] Dermatology Other seborrheic keratosis 02/17/201511/06 Overview: Dr. Tee Clemons, Dermatology Neoplasm of uncertain behavior of skin 5 11/06/2018 Overview: Behind right mid ear Dr. Tee Clemons, Dermatology Hemangioma of skin and subcutaneous tissue 02/1702/16/2016 Overview: Dr. Tee Clemons, Dermatology Pain in joint, shoulder region 02/12/2015 0 02/16/2016 Rotator cuff (capsule) sprain 12/28/2014 Rotator cuff tear, right 10/21/2012 021 Chest pain 04/07/2012 02/16/2016 Overview: Unstable angina vs NSTEMI Multiple admissions for NSTEMI and unstable angina Stress test in Sep 2015 negative Zack negative Plan: - Consider LHC if symptoms get worse Hyperlipidemia 04/07/2012 02/19/2017 DM (diabetes mellitus) 04/07/2012 6 SUMMARY 04/06/2012 09/15/2017 Overview: This is a 71 year old male with CAD (s/p PCI with DARCI in PDA and Ramus), DM, obesity and HTN who presents with typical CP over 12hrs. ECG shows mild diffuse concave ST elevation, less notable than his ECG in November 2011 when a LHC showed stable CAD. Enzymes at [place] negative. Repeat enzymes pending. Plan - Cycle ECG/Enzymes-Negativef for AR - Aspirin/Clopidogrel/BB/Statin/ARB -Stress echo negative for ischemia, discharge 04/09 am. -04/09/2012 Stable DC home. Follow up with Dr Jones. DC home on same meds prior to admit except aspirin reduced from 325mg daily to 81mg daily. SUMMARY 11/24/2011 03/28/2012 Overview: This is a 71 year old male with CAD s/p PCI with DARCI in PDA and Ramus, DM, HTN who presents with atypical CP over the past 5 weeks 1/ Intermittent chest discomfort all weekend despite negative enzymes, cath today SUMMARY 05/30/2011 09/28/2011 Overview: 72 year old man known to have HTN, DM, hypercholesterolaemia, CAD s/p DARCI to the r[facility] 08/2009, DARCI to the [place] 10/2010. He was admitted 05/2011 with chest pain but on repeat LHC was found to have patent stents. He was readmitted 03/2012 with chest pain but was negative for coronary ischaemia on stress echocardiogram evaluation and was medically optimised pre discharge He was admitted to an OSH on 08/24/2012 with sudden onset of chest pain at 10 AM while at a , his initial eval was negative for ACS and he has been transferred to [facility] for further evaluation and management. Started heparin,NTG last night for unstable angina. Cardiac cath - 08/27/2012 Successful PCI of Mid LAD with a 2.5 x 16 mm Promus Element DARCI H. pylori infection 05/30/2011 09/28/2011 Overview: Continue triple therapy Acute gastritis without mention of hemorrhage 09/15/2017 Renal insufficiency 11/16/2010 09/28/2011 Overview: Na Bicarb at cath. 05/30 BUN/Creat 01/12.15 Diabetes mellitus without complication 7 02/16/2016 Overview: - Accuchecks and DM diet - Sliding scale insulin. -HBa1c -5.6%. 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 017 Overview: Continue pravastatin Abdominal pain, right lower quadrant 09/28/2011 documented as of this encounter (statuses as of 06/20/2022) [facility]04[facility] History of Past illness Narrative* Problem Noted Date Resolved Date Spinal stenosis, lumbar region with neurogenic c laudication 03/17/2020 05/12/2021 Neck pain 02/09/2020 05/12/2021 History of fusion of lumbar spine 02/04/2020 05/12/2021 History of fusion of cervical spine 02/04/2020 05/12/2021 Other persistent atrial fibrillation 09/08/2019 11/09/2020 Insomnia 08/21/2016 11/06/2018 Basal cell carcinoma 02/23/2015 11/06/2018 Overview: Dr. Macias, [facility] Dermatology Other seborrheic keratosis 02/17/201511/06 Overview: Dr. Tee Clemons, Dermatology Neoplasm of uncertain behavior of skin 5 11/06/2018 Overview: Behind right mid ear Dr. Tee Clemons, Dermatology Hemangioma of skin and subcutaneous tissue 02/1702/16/2016 Overview: Dr. Tee Clemons, Dermatology Pain in joint, shoulder region 02/12/2015 0 02/16/2016 Rotator cuff (capsule) sprain 12/28/2014 Rotator cuff tear, right 10/21/2012 021 Chest pain 04/07/2012 02/16/2016 Overview: Unstable angina vs NSTEMI Multiple admissions for NSTEMI and unstable angina Stress test in Sep 2015 negative Zack negative Plan: - Consider LHC if symptoms get worse Hyperlipidemia 04/07/2012 02/19/2017 DM (diabetes mellitus) 04/07/2012 6 SUMMARY 04/06/2012 09/15/2017 Overview: This is a 71 year old male with CAD (s/p PCI with DARCI in PDA and Ramus), DM, obesity and HTN who presents with typical CP over 12hrs. ECG shows mild diffuse concave ST elevation, less notable than his ECG in November 2011 when a LHC showed stable CAD. Enzymes at [facility] negative. Repeat enzymes pending. Plan - Cycle ECG/Enzymes-Negativef for AR - Aspirin/Clopidogrel/BB/Statin/ARB -Stress echo negative for ischemia, discharge 04/09 am. -04/09/2012 Stable DC home. Follow up with Dr Jones. DC home on same meds prior to admit except aspirin reduced from 325mg daily to 81mg daily. SUMMARY 11/24/2011 03/28/2012 Overview: This is a 71 year old male with CAD s/p PCI with DARCI in PDA and Ramus, DM, HTN who presents with atypical CP over the past 5 weeks 1/9 Intermittent chest discomfort all weekend despite negative enzymes, cath today SUMMARY 05/30/2011 09/28/2011 Overview: 72 year old man known to have HTN, DM, hypercholesterolaemia, CAD s/p DARCI to the [facility] 08/2009, DARCI to the [place] 10/2010. He was admitted 05/2011 with chest pain but on repeat LHC was found to have patent stents. He was readmitted 03/2012 with chest pain but was negative for coronary ischaemia on stress echocardiogram evaluation and was medically optimised pre discharge He was admitted to an OSH on 08/24/2012 with sudden onset of chest pain at 10 AM while at a , his initial eval was negative for ACS and he has been transferred to [facility] for further evaluation and management. Started heparin,NTG last night for unstable angina. Cardiac cath - 08/27/2012 Successful PCI of Mid LAD with a 2.5 x 16 mm Promus Element DARCI H. pylori infection 05/30/2011 09/28/2011 Overview: Continue triple therapy Acute gastritis without mention of hemorrhage 09/15/2017 Renal insufficiency 11/16/2010 09/28/2011 Overview: Na Bicarb at cath. 05/30 BUN/Creat 01/12.15 Diabetes mellitus without complication 7 02/16/2016 Overview: - Accuchecks and DM diet - Sliding scale insulin. -HBa1c -5.6%. 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 017 Overview: Continue pravastatin Abdominal pain, right lower quadrant 09/28/2011 documented as of this encounter (statuses as of 07/12/2022) [facility]04-29-[facility] History of Past illness Narrative* Problem Noted Date Resolved Date Spinal stenosis, lumbar region with neurogenic c laudication 03/17/2020 05/12/2021 Neck pain 02/09/2020 05/12/2021 History of fusion of lumbar spine 02/04/2020 05/12/2021 History of fusion of cervical spine 02/04/2020 05/12/2021 Other persistent atrial fibrillation 09/08/2019 11/09/2020 Insomnia 08/21/2016 11/06/2018 Basal cell carcinoma 02/23/2015 11/06/2018 Overview: Dr. Macias, [facility] Other seborrheic keratosis 02/17/201511/06 Overview: Dr. Tee Clemons, Dermatology Neoplasm of uncertain behavior of skin 5 11/06/2018 Overview: Behind right mid ear Dr. Tee Clemons, Dermatology Hemangioma of skin and subcutaneous tissue 02/1702/16/2016 Overview: Dr. Tee Clemons, Dermatology Pain in joint, shoulder region 02/12/2015 0 02/16/2016 Rotator cuff (capsule) sprain 12/28/2014 Rotator cuff tear, right 10/21/2012 021 Chest pain 04/07/2012 02/16/2016 Overview: Unstable angina vs NSTEMI Multiple admissions for NSTEMI and unstable angina Stress test in Sep 2015 negative Zack negative Plan: - Consider LHC if symptoms get worse Hyperlipidemia 04/07/2012 02/19/2017 DM (diabetes mellitus) 04/07/2012 6 SUMMARY 04/06/2012 09/15/2017 Overview: This is a 71 year old male with CAD (s/p PCI with DARCI in PDA and Ramus), DM, obesity and HTN who presents with typical CP over 12hrs. ECG shows mild diffuse concave ST elevation, less notable than his ECG in November 2011 when a LHC showed stable CAD. Enzymes at [place] negative. Repeat enzymes pending. Plan - Cycle ECG/Enzymes-Negativef for AR - Aspirin/Clopidogrel/BB/Statin/ARB -Stress echo negative for ischemia, discharge 04/09 am. -04/09/2012 Stable DC home. Follow up with Dr Jones. DC home on same meds prior to admit except aspirin reduced from 325mg daily to 81mg daily. SUMMARY 11/24/2011 03/28/2012 Overview: This is a 71 year old male with CAD s/p PCI with DARCI in PDA and Ramus, DM, HTN who presents with atypical CP over the past 5 weeks 11/27 Intermittent chest discomfort all weekend despite negative enzymes, cath today SUMMARY 05/30/2011 09/28/2011 Overview: 72 year old man known to have HTN, DM, hypercholesterolaemia, CAD s/p DARCI to the [facility] 08/2009, DARCI to the [place] 10/2010. He was admitted 05/2011 with chest pain but on repeat LHC was found to have patent stents. He was readmitted 03/2012 with chest pain but was negative for coronary ischaemia on stress echocardiogram evaluation and was medically optimised pre discharge He was admitted to an OSH on 08/24/2012 with sudden onset of chest pain at 10 AM while at a , his initial eval was negative for ACS and he has been transferred to [facility] for further evaluation and management. Started heparin,NTG last night for unstable angina. Cardiac cath - 08/27/2012 Successful PCI of Mid LAD with a 2.5 x 16 mm Promus Element DARCI H. pylori infection 05/30/2011 09/28/2011 Overview: Continue triple therapy Acute gastritis without mention of hemorrhage 09/15/2017 Renal insufficiency 11/16/2010 09/28/2011 Overview: Na Bicarb at cath. 05/30 BUN/Creat 13/.15 Diabetes mellitus without complication 7 02/16/2016 Overview: - Accuchecks and DM diet - Sliding scale insulin. -HBa1c -5.6%. 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 017 Overview: Continue pravastatin Abdominal pain, right lower quadrant 09/28/2011 documented as of this encounter (statuses as of 08/21/2022) [facility]04-29[facility] History of Past illness Narrative* Problem Noted Date Resolved Date Spinal stenosis, lumbar region with neurogenic c laudication 03/17/2020 05/12/2021 Neck pain 02/09/2020 05/12/2021 History of fusion of lumbar spine 02/04/2020 05/12/2021 History of fusion of cervical spine 02/04/2020 05/12/2021 Other persistent atrial fibrillation 09/08/2019 11/09/2020 Insomnia 08/21/2016 11/06/2018 Basal cell carcinoma 02/23/2015 11/06/2018 Overview: Dr. Macias, [facility] Dermatology Other seborrheic keratosis 02/17/201511/06 Overview: Dr. Tee Clemons, Dermatology Neoplasm of uncertain behavior of skin 5 11/06/2018 Overview: Behind right mid ear Dr. Tee Clemons, Dermatology Hemangioma of skin and subcutaneous tissue 02/1702/16/2016 Overview: Dr. Tee Clemons, Dermatology Pain in joint, shoulder region 02/12/2015 0 02/16/2016 Rotator cuff (capsule) sprain 12/28/2014 Rotator cuff tear, right 10/21/2012 021 Chest pain 04/07/2012 02/16/2016 Overview: Unstable angina vs NSTEMI Multiple admissions for NSTEMI and unstable angina Stress test in Sep 2015 negative Zack negative Plan: - Consider LHC if symptoms get worse Hyperlipidemia 04/07/2012 02/19/2017 DM (diabetes mellitus) 04/07/2012 6 SUMMARY 04/06/2012 09/15/2017 Overview: This is a 71 year old male with CAD (s/p PCI with DARCI in PDA and Ramus), DM, obesity and HTN who presents with typical CP over 12hrs. ECG shows mild diffuse concave ST elevation, less notable than his ECG in November 2011 when a LHC showed stable CAD. Enzymes at [place] negative. Repeat enzymes pending. Plan - Cycle ECG/Enzymes-Negativef for AR - Aspirin/Clopidogrel/BB/Statin/ARB -Stress echo negative for ischemia, discharge 04/09 am. -04/09/2012 Stable DC home. Follow up with Dr Jones. DC home on same meds prior to admit except aspirin reduced from 325mg daily to 81mg daily. SUMMARY 11/24/2011 03/28/2012 Overview: This is a 71 year old male with CAD s/p PCI with DRACI in PDA and Ramus, DM, HTN who presents with atypical CP over the past 5 weeks 11/27 Intermittent chest discomfort all weekend despite negative enzymes, cath today SUMMARY 05/30/2011 09/28/2011 Overview: 72 year old man known to have HTN, DM, hypercholesterolaemia, CAD s/p DARCI to the [facility] 08/2009, DARCI to [place] 10/2010. He was admitted 05/2011 with chest pain but on repeat LHC was found to have patent stents. He was readmitted 03/2012 with chest pain but was negative for coronary ischaemia on stress echocardiogram evaluation and was medically optimised pre discharge He was admitted to an OSH on 08/24/2012 with sudden onset of chest pain at 10 AM while at a , his initial eval was negative for ACS and he has been transferred to [facility] for further evaluation and management. Started heparin,NTG last night for unstable angina. Cardiac cath - 08/27/2012 Successful PCI of Mid LAD with a 2.5 x 16 mm Promus Element DARCI H. pylori infection 05/30/2011 09/28/2011 Overview: Continue triple therapy Acute gastritis without mention of hemorrhage 09/15/2017 Renal insufficiency 11/16/2010 09/28/2011 Overview: Na Bicarb at cath. 05/30 BUN/Creat 01/12.15 Diabetes mellitus without complication 7 02/16/2016 Overview: - Accuchecks and DM diet - Sliding scale insulin. -HBa1c -5.6%. 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 017 Overview: Continue pravastatin Abdominal pain, right lower quadrant 09/28/2011 documented as of this encounter (statuses as of 08/21/2022) [facility]04[facility]29[facility] History of Past illness Narrative* Problem Noted Date Resolved Date Spinal stenosis, lumbar region with neurogenic c laudication 03/17/2020 05/12/2021 Neck pain 02/09/2020 05/12/2021 History of fusion of lumbar spine 02/04/2020 05/12/2021 History of fusion of cervical spine 02/04/2020 05/12/2021 Other persistent atrial fibrillation 09/08/2019 11/09/2020 Insomnia 08/21/2016 11/06/2018 Basal cell carcinoma 02/23/2015 11/06/2018 Overview: Dr. Macias, [facility] Dermatology Other seborrheic keratosis 02/17/201511/06 Overview: Dr. Tee Clemons, Dermatology Neoplasm of uncertain behavior of skin 5 11/06/2018 Overview: Behind right mid ear Dr. Tee Clemons, Dermatology Hemangioma of skin and subcutaneous tissue 02/1702/16/2016 Overview: Dr. Tee Clemons, Dermatology Pain in joint, shoulder region 02/12/2015 0 02/16/2016 Rotator cuff (capsule) sprain 12/28/2014 Rotator cuff tear, right 10/21/2012 021 Chest pain 04/07/2012 02/16/2016 Overview: Unstable angina vs NSTEMI Multiple admissions for NSTEMI and unstable angina Stress test in Sep 2015 negative Zack negative Plan: - Consider [facility] if symptoms get worse Hyperlipidemia 04/07/2012 02/19/2017 DM (diabetes mellitus) 04/07/2012 6 SUMMARY 04/06/2012 09/15/2017 Overview: This is a 71 year old male with CAD (s/p PCI with DARCI in PDA and Ramus), DM, obesity and HTN who presents with typical CP over 12hrs. ECG shows mild diffuse concave ST elevation, less notable than his ECG in November 2011 when a LHC showed stable CAD. Enzymes at [place] negative. Repeat enzymes pending. Plan - Cycle ECG/Enzymes-Negativef for AR - Aspirin/Clopidogrel/BB/Statin/ARB -Stress echo negative for ischemia, discharge 04/09 am. -04/09/2012 Stable DC home. Follow up with Dr Jones. DC home on same meds prior to admit except aspirin reduced from 325mg daily to 81mg daily. SUMMARY 11/24/2011 03/28/2012 Overview: This is a 71 year old male with CAD s/p PCI with DARCI in PDA and Ramus, DM, HTN who presents with atypical CP over the past 5 weeks 11/27 Intermittent chest discomfort all weekend despite negative enzymes, cath today SUMMARY 05/30/2011 09/28/2011 Overview: 72 year old man known to have HTN, DM, hypercholesterolaemia, CAD s/p DARCI to the [facility] 08/2009, [place]CI to [place] 10/2010. He was admitted 05/2011 with chest pain but on repeat LHC was found to have patent stents. He was readmitted 03/2012 with chest pain but was negative for coronary ischaemia on stress echocardiogram evaluation and was medically optimised pre discharge He was admitted to an OSH on 08/24/2012 with sudden onset of chest pain at 10 AM while at a , his initial eval was negative for ACS and he has been transferred to [facility] for further evaluation and management. Started heparin,NTG last night for unstable angina. Cardiac cath - 08/27/2012 Successful PCI of Mid LAD with a 2.5 x 16 mm Promus Element DARCI H. pylori infection 05/30/2011 09/28/2011 Overview: Continue triple therapy Acute gastritis without mention of hemorrhage 09/15/2017 Renal insufficiency 11/16/2010 09/28/2011 Overview: Na Bicarb at cath. 05/30 BUN/Creat 13.15 Diabetes mellitus without complication 7 02/16/2016 Overview: - Accuchecks and DM diet - Sliding scale insulin. -HBa1c -5.6%. 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 017 Overview: Continue pravastatin Abdominal pain, right lower quadrant 09/28/2011 documented as of this encounter (statuses as of 08/30/2022) [facility]04-29-2020 History of Past illness Narrative* Problem Noted Date Resolved Date Spinal stenosis, lumbar region with neurogenic c laudication 03/17/2020 05/12/2021 Neck pain 02/09/2020 05/12/2021 History of fusion of lumbar spine 02/04/2020 05/12/2021 History of fusion of cervical spine 02/04/2020 05/12/2021 Other persistent atrial fibrillation 09/08/2019 11/09/2020 Insomnia 08/21/2016 11/06/2018 Basal cell carcinoma 02/23/2015 11/06/2018 Overview: Dr. Macias, [facility] Dermatology Other seborrheic keratosis 02/17/201511/06 Overview: Dr. Tee Clemons, Dermatology Neoplasm of uncertain behavior of skin 5 11/06/2018 Overview: Behind right mid ear Dr. Tee Clemons, Dermatology Hemangioma of skin and subcutaneous tissue 02/1702/16/2016 Overview: Dr. Tee Clemons, Dermatology Pain in joint, shoulder region 02/12/2015 0 02/16/2016 Rotator cuff (capsule) sprain 12/28/2014 Rotator cuff tear, right 10/21/2012 021 Chest pain 04/07/2012 02/16/2016 Overview: Unstable angina vs NSTEMI Multiple admissions for NSTEMI and unstable angina Stress test in Sep 2015 negative Zack negative Plan: - Consider [facility] if symptoms get worse Hyperlipidemia 04/07/2012 02/19/2017 DM (diabetes mellitus) 04/07/2012 6 SUMMARY 04/06/2012 09/15/2017 Overview: This is a 71 year old male with CAD (s/p PCI with DARCI in PDA and Ramus), DM, obesity and HTN who presents with typical CP over 12hrs. ECG shows mild diffuse concave ST elevation, less notable than his ECG in November 2011 when a LHC showed stable CAD. Enzymes at [place] negative. Repeat enzymes pending. Plan - Cycle ECG/Enzymes-Negativef for AR - Aspirin/Clopidogrel/BB/Statin/ARB -Stress echo negative for ischemia, discharge 04/09 am. -04/09/2012 Stable DC home. Follow up with Dr Jones. DC home on same meds prior to admit except aspirin reduced from 325mg daily to 81mg daily. SUMMARY 11/24/2011 03/28/2012 Overview: This is a 71 year old male with CAD s/p PCI with DARCI in PDA and Ramus, DM, HTN who presents with atypical CP over the past 5 weeks 11/27 Intermittent chest discomfort all weekend despite negative enzymes, cath today SUMMARY 05/30/2011 09/28/2011 Overview: 72 year old man known to have HTN, DM, hypercholesterolaemia, CAD s/p DARCI to the [place] 08/2009, DARCI to the [place] 10/2010. He was admitted 05/2011 with chest pain but on repeat LHC was found to have patent stents. He was readmitted 03/2012 with chest pain but was negative for coronary ischaemia on stress echocardiogram evaluation and was medically optimised pre discharge He was admitted to an OSH on 08/24/2012 with sudden onset of chest pain at 10 AM while at a , his initial eval was negative for ACS and he has been transferred to [facility] for further evaluation and management. Started heparin,NTG last night for unstable angina. Cardiac cath - 08/27/2012 Successful PCI of Mid LAD with a 2.5 x 16 mm Promus Element DARCI H. pylori infection 05/30/2011 09/28/2011 Overview: Continue triple therapy Acute gastritis without mention of hemorrhage 09/15/2017 Renal insufficiency 11/16/2010 09/28/2011 Overview: Na Bicarb at cath. 05/30 BUN/Creat 13/.15 Diabetes mellitus without complication 7 02/16/2016 Overview: - Accuchecks and DM diet - Sliding scale insulin. -HBa1c -5.6%. 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 017 Overview: Continue pravastatin Abdominal pain, right lower quadrant 09/28/2011 documented as of this encounter (statuses as of 09/04/2022) [facility]2020 History of Past illness Narrative* Problem Noted Date Resolved Date Spinal stenosis, lumbar region with neurogenic c laudication 03/17/2020 05/12/2021 Neck pain 02/09/2020 05/12/2021 History of fusion of lumbar spine 02/04/2020 05/12/2021 History of fusion of cervical spine 02/04/2020 05/12/2021 Other persistent atrial fibrillation 09/08/2019 11/09/2020 Insomnia 08/21/2016 11/06/2018 Basal cell carcinoma 02/23/2015 11/06/2018 Overview: Dr. Macias, [facility] Dermatology Other seborrheic keratosis 02/17/201511/06 Overview: Dr. Tee Clemons, Dermatology Neoplasm of uncertain behavior of skin 5 11/06/2018 Overview: Behind right mid ear Dr. Tee Clemons, Dermatology Hemangioma of skin and subcutaneous tissue 02/1702/16/2016 Overview: Dr. Tee Clemons, Dermatology Pain in joint, shoulder region 02/12/2015 0 02/16/2016 Rotator cuff (capsule) sprain 12/28/2014 Rotator cuff tear, right 10/21/2012 021 Chest pain 04/07/2012 02/16/2016 Overview: Unstable angina vs NSTEMI Multiple admissions for NSTEMI and unstable angina Stress test in Sep 2015 negative Zack negative Plan: - Consider LHC if symptoms get worse Hyperlipidemia 04/07/2012 02/19/2017 DM (diabetes mellitus) 04/07/2012 6 SUMMARY 04/06/2012 09/15/2017 Overview: This is a 71 year old male with CAD (s/p PCI with DARCI in PDA and Ramus), DM, obesity and HTN who presents with typical CP over 12hrs. ECG shows mild diffuse concave ST elevation, less notable than his ECG in November 2011 when a LHC showed stable CAD. Enzymes at [facility] negative. Repeat enzymes pending. Plan - Cycle ECG/Enzymes-Negativef for AR - Aspirin/Clopidogrel/BB/Statin/ARB -Stress echo negative for ischemia, discharge 04/09 am. -04/09/2012 Stable DC home. Follow up with Dr Jones. DC home on same meds prior to admit except aspirin reduced from 325mg daily to 81mg daily. SUMMARY 11/24/2011 03/28/2012 Overview: This is a 71 year old male with CAD s/p PCI with DARCI in PDA and Ramus, DM, HTN who presents with atypical CP over the past 5 weeks 11/27 Intermittent chest discomfort all weekend despite negative enzymes, cath today SUMMARY 05/30/2011 09/28/2011 Overview: 72 year old man known to have HTN, DM, hypercholesterolaemia, CAD s/p DARCI to the r[facility]DA 08/2009, DARCI to the [place] 10/2010. He was admitted 05/2011 with chest pain but on repeat LHC was found to have patent stents. He was readmitted 03/2012 with chest pain but was negative for coronary ischaemia on stress echocardiogram evaluation and was medically optimised pre discharge He was admitted to an OSH on 08/24/2012 with sudden onset of chest pain at 10 AM while at a , his initial eval was negative for ACS and he has been transferred to [facility] for further evaluation and management. Started heparin,NTG last night for unstable angina. Cardiac cath - 08/27/2012 Successful PCI of Mid LAD with a 2.5 x 16 mm Promus Element DARCI H. pylori infection 05/30/2011 09/28/2011 Overview: Continue triple therapy Acute gastritis without mention of hemorrhage 09/15/2017 Renal insufficiency 11/16/2010 09/28/2011 Overview: Na Bicarb at cath. 05/30 BUN/Creat 01/12.15 Diabetes mellitus without complication 7 02/16/2016 Overview: - Accuchecks and DM diet - Sliding scale insulin. -HBa1c -5.6%. 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 017 Overview: Continue pravastatin Abdominal pain, right lower quadrant 09/28/2011 documented as of this encounter (statuses as of 09/05/2022) [facility]2020 History of Past illness Narrative* Problem Noted Date Resolved Date Spinal stenosis, lumbar region with neurogenic c laudication 03/17/2020 05/12/2021 Neck pain 02/09/2020 05/12/2021 History of fusion of lumbar spine 02/04/2020 05/12/2021 History of fusion of cervical spine 02/04/2020 05/12/2021 Other persistent atrial fibrillation 09/08/2019 11/09/2020 Insomnia 08/21/2016 11/06/2018 Basal cell carcinoma 02/23/2015 11/06/2018 Overview: Dr. Macias, [facility] Dermatology Other seborrheic keratosis 02/17/201511/06 Overview: Dr. Tee Clemons, Dermatology Neoplasm of uncertain behavior of skin 5 11/06/2018 Overview: Behind right mid ear Dr. Tee Clemons, Dermatology Hemangioma of skin and subcutaneous tissue 02/1702/16/2016 Overview: Dr. Tee Clemons, Dermatology Pain in joint, shoulder region 02/12/2015 0 02/16/2016 Rotator cuff (capsule) sprain 12/28/2014 Rotator cuff tear, right 10/21/2012 021 Chest pain 04/07/2012 02/16/2016 Overview: Unstable angina vs NSTEMI Multiple admissions for NSTEMI and unstable angina Stress test in Sep 2015 negative Zack negative Plan: - Consider LHC if symptoms get worse Hyperlipidemia 04/07/2012 02/19/2017 DM (diabetes mellitus) 04/07/2012 6 SUMMARY 04/06/2012 09/15/2017 Overview: This is a 71 year old male with CAD (s/p PCI with DARCI in PDA and Ramus), DM, obesity and HTN who presents with typical CP over 12hrs. ECG shows mild diffuse concave ST elevation, less notable than his ECG in November 2011 when a LHC showed stable CAD. Enzymes at [facility] negative. Repeat enzymes pending. Plan - Cycle ECG/Enzymes-Negativef for AR - Aspirin/Clopidogrel/BB/Statin/ARB -Stress echo negative for ischemia, discharge 04/09 am. -04/09/2012 Stable DC home. Follow up with Dr Jones. DC home on same meds prior to admit except aspirin reduced from 325mg daily to 81mg daily. SUMMARY 11/24/2011 03/28/2012 Overview: This is a 71 year old male with CAD s/p PCI with DARCI in PDA and Ramus, DM, HTN who presents with atypical CP over the past 5 weeks 11/27 Intermittent chest discomfort all weekend despite negative enzymes, cath today SUMMARY 05/30/2011 09/28/2011 Overview: 72 year old man known to have HTN, DM, hypercholesterolaemia, CAD s/p DARCI to the r[facility] 08/2009, DARCI to the [place] 10/2010. He was admitted 05/2011 with chest pain but on repeat LHC was found to have patent stents. He was readmitted 03/2012 with chest pain but was negative for coronary ischaemia on stress echocardiogram evaluation and was medically optimised pre discharge He was admitted to an OSH on 08/24/2012 with sudden onset of chest pain at 10 AM while at a , his initial eval was negative for ACS and he has been transferred to [facility] for further evaluation and management. Started heparin,NTG last night for unstable angina. Cardiac cath - 08/27/2012 Successful PCI of Mid LAD with a 2.5 x 16 mm Promus Element DARCI H. pylori infection 05/30/2011 09/28/2011 Overview: Continue triple therapy Acute gastritis without mention of hemorrhage 09/15/2017 Renal insufficiency 11/16/2010 09/28/2011 Overview: Na Bicarb at cath. 05/30 BUN/Creat 01/12.15 Diabetes mellitus without complication 7 02/16/2016 Overview: - Accuchecks and DM diet - Sliding scale insulin. -HBa1c -5.6%. 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 017 Overview: Continue pravastatin Abdominal pain, right lower quadrant 09/28/2011 documented as of this encounter (statuses as of 09/06/2022) [facility]2020 History of Past illness Narrative* Problem Noted Date Resolved Date Spinal stenosis, lumbar region with neurogenic c laudication 03/17/2020 05/12/2021 Neck pain 02/09/2020 05/12/2021 History of fusion of lumbar spine 02/04/2020 05/12/2021 History of fusion of cervical spine 02/04/2020 05/12/2021 Other persistent atrial fibrillation 09/08/2019 11/09/2020 Insomnia 08/21/2016 11/06/2018 Basal cell carcinoma 02/23/2015 11/06/2018 Overview: Dr. Macias, [facility] Dermatology Other seborrheic keratosis 02/17/201511/06 Overview: Dr. Tee Clemons, Dermatology Neoplasm of uncertain behavior of skin 5 11/06/2018 Overview: Behind right mid ear Dr. Tee Clemons, Dermatology Hemangioma of skin and subcutaneous tissue 02/1702/16/2016 Overview: Dr. Tee Clemons, Dermatology Pain in joint, shoulder region 02/12/2015 0 02/16/2016 Rotator cuff (capsule) sprain 12/28/2014 Rotator cuff tear, right 10/21/2012 021 Chest pain 04/07/2012 02/16/2016 Overview: Unstable angina vs NSTEMI Multiple admissions for NSTEMI and unstable angina Stress test in Sep 2015 negative Zack negative Plan: - Consider LHC if symptoms get worse Hyperlipidemia 04/07/2012 02/19/2017 DM (diabetes mellitus) 04/07/2012 6 SUMMARY 04/06/2012 09/15/2017 Overview: This is a 71 year old male with CAD (s/p PCI with DARCI in PDA and Ramus), DM, obesity and HTN who presents with typical CP over 12hrs. ECG shows mild diffuse concave ST elevation, less notable than his ECG in November 2011 when a LHC showed stable CAD. Enzymes at [facility] negative. Repeat enzymes pending. Plan - Cycle ECG/Enzymes-Negativef for AR - Aspirin/Clopidogrel/BB/Statin/ARB -Stress echo negative for ischemia, discharge 04/09 am. -04/09/2012 Stable DC home. Follow up with Dr Jones. DC home on same meds prior to admit except aspirin reduced from 325mg daily to 81mg daily. SUMMARY 11/24/2011 03/28/2012 Overview: This is a 71 year old male with CAD s/p PCI with DARCI in PDA and Ramus, DM, HTN who presents with atypical CP over the past 5 weeks 1/9 Intermittent chest discomfort all weekend despite negative enzymes, cath today SUMMARY 05/30/2011 09/28/2011 Overview: 72 year old man known to have HTN, DM, hypercholesterolaemia, CAD s/p DARCI to the r[facility] 08/2009, DARCI to the [place] 10/2010. He was admitted 05/2011 with chest pain but on repeat LHC was found to have patent stents. He was readmitted 03/2012 with chest pain but was negative for coronary ischaemia on stress echocardiogram evaluation and was medically optimised pre discharge He was admitted to an OSH on 08/24/2012 with sudden onset of chest pain at 10 AM while at a , his initial eval was negative for ACS and he has been transferred to [facility] for further evaluation and management. Started heparin,NTG last night for unstable angina. Cardiac cath - 08/27/2012 Successful PCI of Mid LAD with a 2.5 x 16 mm Promus Element DARCI H. pylori infection 05/30/2011 09/28/2011 Overview: Continue triple therapy Acute gastritis without mention of hemorrhage 09/15/2017 Renal insufficiency 11/16/2010 09/28/2011 Overview: Na Bicarb at cath. 05/30 BUN/Creat 01/12.15 Diabetes mellitus without complication 7 02/16/2016 Overview: - Accuchecks and DM diet - Sliding scale insulin. -HBa1c -5.6%. 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 017 Overview: Continue pravastatin Abdominal pain, right lower quadrant 09/28/2011 documented as of this encounter (statuses as of 09/25/2022) [facility] History of Past illness Narrative* Problem Noted Date Resolved Date Spinal stenosis, lumbar region with neurogenic c laudication 03/17/2020 05/12/2021 Neck pain 02/09/2020 05/12/2021 History of fusion of lumbar spine 02/04/2020 05/12/2021 History of fusion of cervical spine 02/04/2020 05/12/2021 Other persistent atrial fibrillation 09/08/2019 11/09/2020 Insomnia 08/21/2016 11/06/2018 Basal cell carcinoma 02/23/2015 11/06/2018 Overview: Dr. Macias, [facility] Dermatology Other seborrheic keratosis 02/17/201511/06 Overview: Dr. Tee Clemons, Dermatology Neoplasm of uncertain behavior of skin 5 11/06/2018 Overview: Behind right mid ear Dr. Tee Clemons, Dermatology Hemangioma of skin and subcutaneous tissue 02/1702/16/2016 Overview: Dr. Tee Clemons, Dermatology Pain in joint, shoulder region 02/12/2015 0 02/16/2016 Rotator cuff (capsule) sprain 12/28/2014 Rotator cuff tear, right 10/21/2012 021 Chest pain 04/07/2012 02/16/2016 Overview: Unstable angina vs NSTEMI Multiple admissions for NSTEMI and unstable angina Stress test in Sep 2015 negative Zack negative Plan: - Consider LHC if symptoms get worse Hyperlipidemia 04/07/2012 02/19/2017 DM (diabetes mellitus) 04/07/2012 6 SUMMARY 04/06/2012 09/15/2017 Overview: This is a 71 year old male with CAD (s/p PCI with DARCI in PDA and Ramus), DM, obesity and HTN who presents with typical CP over 12hrs. ECG shows mild diffuse concave ST elevation, less notable than his ECG in November 2011 when a LHC showed stable CAD. Enzymes at [place] negative. Repeat enzymes pending. Plan - Cycle ECG/Enzymes-Negativef for AR - Aspirin/Clopidogrel/BB/Statin/ARB -Stress echo negative for ischemia, discharge 04/09 am. -04/09/2012 Stable DC home. Follow up with Dr Jones. DC home on same meds prior to admit except aspirin reduced from 325mg daily to 81mg daily. SUMMARY 11/24/2011 03/28/2012 Overview: This is a 71 year old male with CAD s/p PCI with DARCI in PDA and Ramus, DM, HTN who presents with atypical CP over the past 5 weeks /9 Intermittent chest discomfort all weekend despite negative enzymes, cath today SUMMARY 05/30/2011 09/28/2011 Overview: 72 year old man known to have HTN, DM, hypercholesterolaemia, CAD s/p DARCI to the [facility] 08/2009, DARCI to the [place] 10/2010. He was admitted 05/2011 with chest pain but on repeat LHC was found to have patent stents. He was readmitted 03/2012 with chest pain but was negative for coronary ischaemia on stress echocardiogram evaluation and was medically optimised pre discharge He was admitted to an OSH on 08/24/2012 with sudden onset of chest pain at 10 AM while at a , his initial eval was negative for ACS and he has been transferred to [facility] for further evaluation and management. Started heparin,NTG last night for unstable angina. Cardiac cath - 08/27/2012 Successful PCI of Mid LAD with a 2.5 x 16 mm Promus Element DARCI H. pylori infection 05/30/2011 09/28/2011 Overview: Continue triple therapy Acute gastritis without mention of hemorrhage 09/15/2017 Renal insufficiency 11/16/2010 09/28/2011 Overview: Na Bicarb at cath. 05/30 BUN/Creat 01/12.15 Diabetes mellitus without complication 7 02/16/2016 Overview: - Accuchecks and DM diet - Sliding scale insulin. -HBa1c -5.6%. 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 017 Overview: Continue pravastatin Abdominal pain, right lower quadrant 09/28/2011 documented as of this encounter (statuses as of 09/25/2022) [facility] History of Past illness Narrative* Problem Noted Date Resolved Date Spinal stenosis, lumbar region with neurogenic c laudication 03/17/2020 05/12/2021 Neck pain 02/09/2020 05/12/2021 History of fusion of lumbar spine 02/04/2020 05/12/2021 History of fusion of cervical spine 02/04/2020 05/12/2021 Other persistent atrial fibrillation 09/08/2019 11/09/2020 Insomnia 08/21/2016 11/06/2018 Basal cell carcinoma 02/23/2015 11/06/2018 Overview: Dr. Macias, [facility] Dermatology Other seborrheic keratosis 02/17/201511/06 Overview: Dr. Tee Clemons, Dermatology Neoplasm of uncertain behavior of skin 5 11/06/2018 Overview: Behind right mid ear Dr. Tee Clemons, Dermatology Hemangioma of skin and subcutaneous tissue 02/1702/16/2016 Overview: Dr. Tee Clemons, Dermatology Pain in joint, shoulder region 02/12/2015 0 02/16/2016 Rotator cuff (capsule) sprain 12/28/2014 Rotator cuff tear, right 10/21/2012 021 Chest pain 04/07/2012 02/16/2016 Overview: Unstable angina vs NSTEMI Multiple admissions for NSTEMI and unstable angina Stress test in Sep 2015 negative Zack negative Plan: - Consider LHC if symptoms get worse Hyperlipidemia 04/07/2012 02/19/2017 DM (diabetes mellitus) 04/07/2012 6 SUMMARY 04/06/2012 09/15/2017 Overview: This is a 71 year old male with CAD (s/p PCI with DARCI in PDA and Ramus), DM, obesity and HTN who presents with typical CP over 12hrs. ECG shows mild diffuse concave ST elevation, less notable than his ECG in November 2011 when a LHC showed stable CAD. Enzymes at [facility] negative. Repeat enzymes pending. Plan - Cycle ECG/Enzymes-Negativef for AR - Aspirin/Clopidogrel/BB/Statin/ARB -Stress echo negative for ischemia, discharge 04/09 am. -04/09/2012 Stable DC home. Follow up with Dr Jones. DC home on same meds prior to admit except aspirin reduced from 325mg daily to 81mg daily. SUMMARY 11/24/2011 03/28/2012 Overview: This is a 71 year old male with CAD s/p PCI with DARCI in PDA and Ramus, DM, HTN who presents with atypical CP over the past 5 weeks 11/27 Intermittent chest discomfort all weekend despite negative enzymes, cath today SUMMARY 05/30/2011 09/28/2011 Overview: 72 year old man known to have HTN, DM, hypercholesterolaemia, CAD s/p DARCI to the [facility] 08/2009, DARCI to the [place] 10/2010. He was admitted 05/2011 with chest pain but on repeat LHC was found to have patent stents. He was readmitted 03/2012 with chest pain but was negative for coronary ischaemia on stress echocardiogram evaluation and was medically optimised pre discharge He was admitted to an OSH on 08/24/2012 with sudden onset of chest pain at 10 AM while at a , his initial eval was negative for ACS and he has been transferred to [facility] for further evaluation and management. Started heparin,NTG last night for unstable angina. Cardiac cath - 08/27/2012 Successful PCI of Mid LAD with a 2.5 x 16 mm Promus Element DARCI H. pylori infection 05/30/2011 09/28/2011 Overview: Continue triple therapy Acute gastritis without mention of hemorrhage 09/15/2017 Renal insufficiency 11/16/2010 09/28/2011 Overview: Na Bicarb at cath. 05/30 BUN/Creat 01/12.15 Diabetes mellitus without complication 7 02/16/2016 Overview: - Accuchecks and DM diet - Sliding scale insulin. -HBa1c -5.6%. 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 017 Overview: Continue pravastatin Abdominal pain, right lower quadrant 09/28/2011 documented as of this encounter (statuses as of 09/27/2022) [facility] History of Past illness Narrative* Problem Noted Date Resolved Date Spinal stenosis, lumbar region with neurogenic c laudication 03/17/2020 05/12/2021 Neck pain 02/09/2020 05/12/2021 History of fusion of lumbar spine 02/04/2020 05/12/2021 History of fusion of cervical spine 02/04/2020 05/12/2021 Other persistent atrial fibrillation 09/08/2019 11/09/2020 Insomnia 08/21/2016 11/06/2018 Basal cell carcinoma 02/23/2015 11/06/2018 Overview: Dr. Macias, [facility] Dermatology Other seborrheic keratosis 02/17/201511/06 Overview: Dr. Tee Clemons, Dermatology Neoplasm of uncertain behavior of skin 5 11/06/2018 Overview: Behind right mid ear Dr. Tee Clemons, Dermatology Hemangioma of skin and subcutaneous tissue 02/1702/16/2016 Overview: Dr. Tee Clemons, Dermatology Pain in joint, shoulder region 02/12/2015 0 02/16/2016 Rotator cuff (capsule) sprain 12/28/2014 Rotator cuff tear, right 10/21/2012 021 Chest pain 04/07/2012 02/16/2016 Overview: Unstable angina vs NSTEMI Multiple admissions for NSTEMI and unstable angina Stress test in Sep 2015 negative Zack negative Plan: - Consider LHC if symptoms get worse Hyperlipidemia 04/07/2012 02/19/2017 DM (diabetes mellitus) 04/07/2012 6 SUMMARY 04/06/2012 09/15/2017 Overview: This is a 71 year old male with CAD (s/p PCI with DARCI in PDA and Ramus), DM, obesity and HTN who presents with typical CP over 12hrs. ECG shows mild diffuse concave ST elevation, less notable than his ECG in November 2011 when a LHC showed stable CAD. Enzymes at [facility] negative. Repeat enzymes pending. Plan - Cycle ECG/Enzymes-Negativef for AR - Aspirin/Clopidogrel/BB/Statin/ARB -Stress echo negative for ischemia, discharge 04/09 am. -04/09/2012 Stable DC home. Follow up with Dr Jones. DC home on same meds prior to admit except aspirin reduced from 325mg daily to 81mg daily. SUMMARY 11/24/2011 03/28/2012 Overview: This is a 71 year old male with CAD s/p PCI with DARCI in PDA and Ramus, DM, HTN who presents with atypical CP over the past 5 weeks 11/27 Intermittent chest discomfort all weekend despite negative enzymes, cath today SUMMARY 05/30/2011 09/28/2011 Overview: 72 year old man known to have HTN, DM, hypercholesterolaemia, CAD s/p DARCI to the [facility] 08/2009, DARCI to the [place] 10/2010. He was admitted 05/2011 with chest pain but on repeat LHC was found to have patent stents. He was readmitted 03/2012 with chest pain but was negative for coronary ischaemia on stress echocardiogram evaluation and was medically optimised pre discharge He was admitted to an OSH on 08/24/2012 with sudden onset of chest pain at 10 AM while at a , his initial eval was negative for ACS and he has been transferred to [facility] for further evaluation and management. Started heparin,NTG last night for unstable angina. Cardiac cath - 08/27/2012 Successful PCI of Mid LAD with a 2.5 x 16 mm Promus Element DARCI H. pylori infection 05/30/2011 09/28/2011 Overview: Continue triple therapy Acute gastritis without mention of hemorrhage 09/15/2017 Renal insufficiency 11/16/2010 09/28/2011 Overview: Na Bicarb at cath. 05/30 BUN/Creat 01/12.15 Diabetes mellitus without complication 7 02/16/2016 Overview: - Accuchecks and DM diet - Sliding scale insulin. -HBa1c -5.6%. 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 017 Overview: Continue pravastatin Abdominal pain, right lower quadrant 09/28/2011 documented as of this encounter (statuses as of 11/06/2022) [facility]04-29-2020 History of Past illness Narrative* Problem Noted Date Resolved Date Spinal stenosis, lumbar region with neurogenic c laudication 03/17/2020 05/12/2021 Neck pain 02/09/2020 05/12/2021 History of fusion of lumbar spine 02/04/2020 05/12/2021 History of fusion of cervical spine 02/04/2020 05/12/2021 Other persistent atrial fibrillation 09/08/2019 11/09/2020 Insomnia 08/21/2016 11/06/2018 Basal cell carcinoma 02/23/2015 11/06/2018 Overview: Dr. Macias, [facility] Dermatology Other seborrheic keratosis 02/17/201511/06 Overview: Dr. Tee Clemons, Dermatology Neoplasm of uncertain behavior of skin 5 11/06/2018 Overview: Behind right mid ear Dr. Tee Clemons, Dermatology Hemangioma of skin and subcutaneous tissue 02/1702/16/2016 Overview: Dr. Tee Clemons, Dermatology Pain in joint, shoulder region 02/12/2015 0 02/16/2016 Rotator cuff (capsule) sprain 12/28/2014 Rotator cuff tear, right 10/21/2012 021 Chest pain 04/07/2012 02/16/2016 Overview: Unstable angina vs NSTEMI Multiple admissions for NSTEMI and unstable angina Stress test in Sep 2015 negative Zack negative Plan: - Consider C if symptoms get worse Hyperlipidemia 04/07/2012 02/19/2017 DM (diabetes mellitus) 04/07/2012 6 SUMMARY 04/06/2012 09/15/2017 Overview: This is a 71 year old male with CAD (s/p PCI with DARCI in PDA and Ramus), DM, obesity and HTN who presents with typical CP over 12hrs. ECG shows mild diffuse concave ST elevation, less notable than his ECG in November 2011 when a LHC showed stable CAD. Enzymes at [place] negative. Repeat enzymes pending. Plan - Cycle ECG/Enzymes-Negativef for AR - Aspirin/Clopidogrel/BB/Statin/ARB -Stress echo negative for ischemia, discharge 04/09 am. -04/09/2012 Stable DC home. Follow up with Dr Jones. DC home on same meds prior to admit except aspirin reduced from 325mg daily to 81mg daily. SUMMARY 11/24/2011 03/28/2012 Overview: This is a 71 year old male with CAD s/p PCI with DARCI in PDA and Ramus, DM, HTN who presents with atypical CP over the past 5 weeks 11/27 Intermittent chest discomfort all weekend despite negative enzymes, cath today SUMMARY 05/30/2011 09/28/2011 Overview: 72 year old man known to have HTN, DM, hypercholesterolaemia, CAD s/p DARCI to the [place] 08/2009, DARCI to the [place] 10/2010. He was admitted 05/2011 with chest pain but on repeat LHC was found to have patent stents. He was readmitted 03/2012 with chest pain but was negative for coronary ischaemia on stress echocardiogram evaluation and was medically optimised pre discharge He was admitted to an OSH on 08/24/2012 with sudden onset of chest pain at 10 AM while at a , his initial eval was negative for ACS and he has been transferred to [facility] for further evaluation and management. Started heparin,NTG last night for unstable angina. Cardiac cath - 08/27/2012 Successful PCI of Mid LAD with a 2.5 x 16 mm Promus Element DARCI H. pylori infection 05/30/2011 09/28/2011 Overview: Continue triple therapy Acute gastritis without mention of hemorrhage 09/15/2017 Renal insufficiency 11/16/2010 09/28/2011 Overview: Na Bicarb at cath. 05/30 BUN/Creat 01/12.15 Diabetes mellitus without complication 7 02/16/2016 Overview: - Accuchecks and DM diet - Sliding scale insulin. -HBa1c -5.6%. 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 017 Overview: Continue pravastatin Abdominal pain, right lower quadrant 09/28/2011 documented as of this encounter (statuses as of 11/22/2022) [facility]2020 History of Past illness Narrative* Problem Noted Date Resolved Date Spinal stenosis, lumbar region with neurogenic c laudication 03/17/2020 05/12/2021 Neck pain 02/09/2020 05/12/2021 History of fusion of lumbar spine 02/04/2020 05/12/2021 History of fusion of cervical spine 02/04/2020 05/12/2021 Other persistent atrial fibrillation 09/08/2019 11/09/2020 Insomnia 08/21/2016 11/06/2018 Basal cell carcinoma 02/23/2015 11/06/2018 Overview: Dr. Macias, [facility] Dermatology Other seborrheic keratosis 02/17/201511/06 Overview: Dr. Tee Clemons, Dermatology Neoplasm of uncertain behavior of skin 5 11/06/2018 Overview: Behind right mid ear Dr. Tee Clemons, Dermatology Hemangioma of skin and subcutaneous tissue 02/1702/16/2016 Overview: Dr. Tee Clemons, Dermatology Pain in joint, shoulder region 02/12/2015 0 02/16/2016 Rotator cuff (capsule) sprain 12/28/2014 Rotator cuff tear, right 10/21/2012 021 Chest pain 04/07/2012 02/16/2016 Overview: Unstable angina vs NSTEMI Multiple admissions for NSTEMI and unstable angina Stress test in Sep 2015 negative Zack negative Plan: - Consider [facility] if symptoms get worse Hyperlipidemia 04/07/2012 02/19/2017 DM (diabetes mellitus) 04/07/201202/15/ 6 SUMMARY 04/06/2012 09/15/2017 Overview: This is a 71 year old male with CAD (s/p PCI with DARCI in PDA and Ramus), DM, obesity and HTN who presents with typical CP over 12hrs. ECG shows mild diffuse concave ST elevation, less notable than his ECG in November 2011 when a LHC showed stable CAD. Enzymes at [place] negative. Repeat enzymes pending. Plan - Cycle ECG/Enzymes-Negativef for AR - Aspirin/Clopidogrel/BB/Statin/ARB -Stress echo negative for ischemia, discharge 04/09 am. -04/09/2012 Stable DC home. Follow up with Dr Jones. DC home on same meds prior to admit except aspirin reduced from 325mg daily to 81mg daily. SUMMARY 11/24/2011 03/28/2012 Overview: This is a 71 year old male with CAD s/p PCI with DARCI in PDA and Ramus, DM, HTN who presents with atypical CP over the past 5 weeks 11/27 Intermittent chest discomfort all weekend despite negative enzymes, cath today SUMMARY 05/30/2011 09/28/2011 Overview: 72 year old man known to have HTN, DM, hypercholesterolaemia, CAD s/p DARCI to the r[facility] 08/2009, DARCI to the [place] 10/2010. He was admitted 05/2011 with chest pain but on repeat LHC was found to have patent stents. He was readmitted 03/2012 with chest pain but was negative for coronary ischaemia on stress echocardiogram evaluation and was medically optimised pre discharge He was admitted to an OSH on 08/24/2012 with sudden onset of chest pain at 10 AM while at a , his initial eval was negative for ACS and he has been transferred to [facility] for further evaluation and management. Started heparin,NTG last night for unstable angina. Cardiac cath - 08/27/2012 Successful PCI of Mid LAD with a 2.5 x 16 mm Promus Element DARCI H. pylori infection 05/30/2011 09/28/2011 Overview: Continue triple therapy Acute gastritis without mention of hemorrhage 09/15/2017 Renal insufficiency 11/16/2010 09/28/2011 Overview: Na Bicarb at cath. 05/30 BUN/Creat 01/12.15 Diabetes mellitus without complication 7 02/16/2016 Overview: - Accuchecks and DM diet - Sliding scale insulin. -HBa1c -5.6%. 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 017 Overview: Continue pravastatin Abdominal pain, right lower quadrant 09/28/2011 documented as of this encounter (statuses as of 11/23/2022) [facility]2020 History of Past illness Narrative* Problem Noted Date Resolved Date Spinal stenosis, lumbar region with neurogenic c laudication 03/17/2020 05/12/2021 Neck pain 02/09/2020 05/12/2021 History of fusion of lumbar spine 02/04/2020 05/12/2021 History of fusion of cervical spine 02/04/2020 05/12/2021 Other persistent atrial fibrillation 09/08/2019 11/09/2020 Insomnia 08/21/2016 11/06/2018 Basal cell carcinoma 02/23/2015 11/06/2018 Overview: Dr. Macias, [facility] Dermatology Other seborrheic keratosis 02/17/201511/06 Overview: Dr. Tee Clemons, Dermatology Neoplasm of uncertain behavior of skin 5 11/06/2018 Overview: Behind right mid ear Dr. Tee Clemons, Dermatology Hemangioma of skin and subcutaneous tissue 02/1702/16/2016 Overview: Dr. Tee Clemons, Dermatology Pain in joint, shoulder region 02/12/2015 0 02/16/2016 Rotator cuff (capsule) sprain 12/28/2014 Rotator cuff tear, right 10/21/2012 021 Chest pain 04/07/2012 02/16/2016 Overview: Unstable angina vs NSTEMI Multiple admissions for NSTEMI and unstable angina Stress test in Sep 2015 negative Zack negative Plan: - Consider LHC if symptoms get worse Hyperlipidemia 04/07/2012 02/19/2017 DM (diabetes mellitus) 04/07/2012 6 SUMMARY 04/06/2012 09/15/2017 Overview: This is a 71 year old male with CAD (s/p PCI with DARCI in PDA and Ramus), DM, obesity and HTN who presents with typical CP over 12hrs. ECG shows mild diffuse concave ST elevation, less notable than his ECG in November 2011 when a LHC showed stable CAD. Enzymes at [place] negative. Repeat enzymes pending. Plan - Cycle ECG/Enzymes-Negativef for AR - Aspirin/Clopidogrel/BB/Statin/ARB -Stress echo negative for ischemia, discharge 04/09 am. -04/09/2012 Stable DC home. Follow up with Dr Jones. DC home on same meds prior to admit except aspirin reduced from 325mg daily to 81mg daily. SUMMARY 11/24/2011 03/28/2012 Overview: This is a 71 year old male with CAD s/p PCI with DARCI in PDA and Ramus, DM, HTN who presents with atypical CP over the past 5 weeks 1/9 Intermittent chest discomfort all weekend despite negative enzymes, cath today SUMMARY 05/30/2011 09/28/2011 Overview: 72 year old man known to have HTN, DM, hypercholesterolaemia, CAD s/p DARCI to the r[facility] 08/2009, DARCI to the [place] 10/2010. He was admitted 05/2011 with chest pain but on repeat LHC was found to have patent stents. He was readmitted 03/2012 with chest pain but was negative for coronary ischaemia on stress echocardiogram evaluation and was medically optimised pre discharge He was admitted to an OSH on 08/24/2012 with sudden onset of chest pain at 10 AM while at a , his initial eval was negative for ACS and he has been transferred to [facility] for further evaluation and management. Started heparin,NTG last night for unstable angina. Cardiac cath - 08/27/2012 Successful PCI of Mid LAD with a 2.5 x 16 mm Promus Element DARCI H. pylori infection 05/30/2011 09/28/2011 Overview: Continue triple therapy Acute gastritis without mention of hemorrhage 09/15/2017 Renal insufficiency 11/16/2010 09/28/2011 Overview: Na Bicarb at cath. 05/30 BUN/Creat 01/12.15 Diabetes mellitus without complication 7 02/16/2016 Overview: - Accuchecks and DM diet - Sliding scale insulin. -HBa1c -5.6%. 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 017 Overview: Continue pravastatin Abdominal pain, right lower quadrant 09/28/2011 documented as of this encounter (statuses as of 12/04/2022) [facility] History of Past illness Narrative* Problem Noted Date Resolved Date Spinal stenosis, lumbar region with neurogenic c laudication 03/17/2020 05/12/2021 Neck pain 02/09/2020 05/12/2021 History of fusion of lumbar spine 02/04/2020 05/12/2021 History of fusion of cervical spine 02/04/2020 05/12/2021 Other persistent atrial fibrillation 09/08/2019 11/09/2020 Insomnia 08/21/2016 11/06/2018 Basal cell carcinoma 02/23/2015 11/06/2018 Overview: Dr. Macias, [facility] Dermatology Other seborrheic keratosis 02/17/201511/06 Overview: Dr. Tee Clemons, Dermatology Neoplasm of uncertain behavior of skin 5 11/06/2018 Overview: Behind right mid ear Dr. Tee Clemons, Dermatology Hemangioma of skin and subcutaneous tissue 02/1702/16/2016 Overview: Dr. Tee Clemons, Dermatology Pain in joint, shoulder region 02/12/2015 0 02/16/2016 Rotator cuff (capsule) sprain 12/28/2014 Rotator cuff tear, right 10/21/2012 021 Chest pain 04/07/2012 02/16/2016 Overview: Unstable angina vs NSTEMI Multiple admissions for NSTEMI and unstable angina Stress test in Sep 2015 negative Zack negative Plan: - Consider LHC if symptoms get worse Hyperlipidemia 04/07/2012 02/19/2017 DM (diabetes mellitus) 04/07/2012 6 SUMMARY 04/06/2012 09/15/2017 Overview: This is a 71 year old male with CAD (s/p PCI with DARCI in PDA and Ramus), DM, obesity and HTN who presents with typical CP over 12hrs. ECG shows mild diffuse concave ST elevation, less notable than his ECG in November 2011 when a LHC showed stable CAD. Enzymes at [place] negative. Repeat enzymes pending. Plan - Cycle ECG/Enzymes-Negativef for AR - Aspirin/Clopidogrel/BB/Statin/ARB -Stress echo negative for ischemia, discharge 04/09 am. -04/09/2012 Stable DC home. Follow up with Dr Jones. DC home on same meds prior to admit except aspirin reduced from 325mg daily to 81mg daily. SUMMARY 11/24/2011 03/28/2012 Overview: This is a 71 year old male with CAD s/p PCI with DARCI in PDA and Ramus, DM, HTN who presents with atypical CP over the past 5 weeks 11/27 Intermittent chest discomfort all weekend despite negative enzymes, cath today SUMMARY 05/30/2011 09/28/2011 Overview: 72 year old man known to have HTN, DM, hypercholesterolaemia, CAD s/p DARCI to the r[facility] 08/2009, DARCI to the [place] 10/2010. He was admitted 05/2011 with chest pain but on repeat LHC was found to have patent stents. He was readmitted 03/2012 with chest pain but was negative for coronary ischaemia on stress echocardiogram evaluation and was medically optimised pre discharge He was admitted to an OSH on 08/24/2012 with sudden onset of chest pain at 10 AM while at a , his initial eval was negative for ACS and he has been transferred to [facility] for further evaluation and management. Started heparin,NTG last night for unstable angina. Cardiac cath - 08/27/2012 Successful PCI of Mid LAD with a 2.5 x 16 mm Promus Element DARCI H. pylori infection 05/30/2011 09/28/2011 Overview: Continue triple therapy Acute gastritis without mention of hemorrhage 09/15/2017 Renal insufficiency 11/16/2010 09/28/2011 Overview: Na Bicarb at cath. 05/30 BUN/Creat 01/12.15 Diabetes mellitus without complication 7 02/16/2016 Overview: - Accuchecks and DM diet - Sliding scale insulin. -HBa1c -5.6%. 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 017 Overview: Continue pravastatin Abdominal pain, right lower quadrant 09/28/2011 documented as of this encounter (statuses as of 12/20/2022) [facility] History of Past illness Narrative* Problem Noted Date Resolved Date Spinal stenosis, lumbar region with neurogenic c laudication 03/17/2020 05/12/2021 Neck pain 02/09/2020 05/12/2021 History of fusion of lumbar spine 02/04/2020 05/12/2021 History of fusion of cervical spine 02/04/2020 05/12/2021 Other persistent atrial fibrillation 09/08/2019 11/09/2020 Insomnia 08/21/2016 11/06/2018 Basal cell carcinoma 02/23/2015 11/06/2018 Overview: Dr. Macias, [facility] Dermatology Other seborrheic keratosis 02/17/201511/06 Overview: Dr. Tee Clemons, Dermatology Neoplasm of uncertain behavior of skin 5 11/06/2018 Overview: Behind right mid ear Dr. Tee Clemons, Dermatology Hemangioma of skin and subcutaneous tissue 02/1702/16/2016 Overview: Dr. Tee Clemons, Dermatology Pain in joint, shoulder region 02/12/2015 0 02/16/2016 Rotator cuff (capsule) sprain 12/28/2014 Rotator cuff tear, right 10/21/2012 021 Chest pain 04/07/2012 02/16/2016 Overview: Unstable angina vs NSTEMI Multiple admissions for NSTEMI and unstable angina Stress test in Sep 2015 negative Zack negative Plan: - Consider LHC if symptoms get worse Hyperlipidemia 04/07/2012 02/19/2017 DM (diabetes mellitus) 04/07/2012 6 SUMMARY 04/06/2012 09/15/2017 Overview: This is a 71 year old male with CAD (s/p PCI with DARCI in PDA and Ramus), DM, obesity and HTN who presents with typical CP over 12hrs. ECG shows mild diffuse concave ST elevation, less notable than his ECG in November 2011 when a LHC showed stable CAD. Enzymes at [place] negative. Repeat enzymes pending. Plan - Cycle ECG/Enzymes-Negativef for AR - Aspirin/Clopidogrel/BB/Statin/ARB -Stress echo negative for ischemia, discharge 04/09 am. -04/09/2012 Stable DC home. Follow up with Dr Jones. DC home on same meds prior to admit except aspirin reduced from 325mg daily to 81mg daily. SUMMARY 11/24/2011 03/28/2012 Overview: This is a 71 year old male with CAD s/p PCI with DARCI in PDA and Ramus, DM, HTN who presents with atypical CP over the past 5 weeks 1/9 Intermittent chest discomfort all weekend despite negative enzymes, cath today SUMMARY 05/30/2011 09/28/2011 Overview: 72 year old man known to have HTN, DM, hypercholesterolaemia, CAD s/p DARCI to the r[facility] 08/2009, DARCI to the [place] 10/2010. He was admitted 05/2011 with chest pain but on repeat LHC was found to have patent stents. He was readmitted 03/2012 with chest pain but was negative for coronary ischaemia on stress echocardiogram evaluation and was medically optimised pre discharge He was admitted to an OSH on 08/24/2012 with sudden onset of chest pain at 10 AM while at a , his initial eval was negative for ACS and he has been transferred to [facility] for further evaluation and management. Started heparin,NTG last night for unstable angina. Cardiac cath - 08/27/2012 Successful PCI of Mid LAD with a 2.5 x 16 mm Promus Element DARCI H. pylori infection 05/30/2011 09/28/2011 Overview: Continue triple therapy Acute gastritis without mention of hemorrhage 09/15/2017 Renal insufficiency 11/16/2010 09/28/2011 Overview: Na Bicarb at cath. 05/30 BUN/Creat 01/12.15 Diabetes mellitus without complication 7 02/16/2016 Overview: - Accuchecks and DM diet - Sliding scale insulin. -HBa1c -5.6%. 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 017 Overview: Continue pravastatin Abdominal pain, right lower quadrant 09/28/2011 documented as of this encounter (statuses as of 12/22/2022) [facility] History of Past illness Narrative* Problem Noted Date Resolved Date Spinal stenosis, lumbar region with neurogenic c laudication 03/17/2020 05/12/2021 Neck pain 02/09/2020 05/12/2021 History of fusion of lumbar spine 02/04/2020 05/12/2021 History of fusion of cervical spine 02/04/2020 05/12/2021 Other persistent atrial fibrillation 09/08/2019 11/09/2020 Insomnia 08/21/2016 11/06/2018 Basal cell carcinoma 02/23/2015 11/06/2018 Overview: Dr. Macias, [facility] Dermatology Other seborrheic keratosis 02/17/201511/06 Overview: Dr. Tee Clemons, Dermatology Neoplasm of uncertain behavior of skin 5 11/06/2018 Overview: Behind right mid ear Dr. Tee Clemons, Dermatology Hemangioma of skin and subcutaneous tissue 02/1702/16/2016 Overview: Dr. Tee Clemons, Dermatology Pain in joint, shoulder region 02/12/2015 0 02/16/2016 Rotator cuff (capsule) sprain 12/28/2014 Rotator cuff tear, right 10/21/2012 021 Chest pain 04/07/2012 02/16/2016 Overview: Unstable angina vs NSTEMI Multiple admissions for NSTEMI and unstable angina Stress test in Sep 2015 negative Zack negative Plan: - Consider LHC if symptoms get worse Hyperlipidemia 04/07/2012 02/19/2017 DM (diabetes mellitus) 04/07/2012 6 SUMMARY 04/06/2012 09/15/2017 Overview: This is a 71 year old male with CAD (s/p PCI with DARCI in PDA and Ramus), DM, obesity and HTN who presents with typical CP over 12hrs. ECG shows mild diffuse concave ST elevation, less notable than his ECG in November 2011 when a LHC showed stable CAD. Enzymes at [place] negative. Repeat enzymes pending. Plan - Cycle ECG/Enzymes-Negativef for AR - Aspirin/Clopidogrel/BB/Statin/ARB -Stress echo negative for ischemia, discharge 04/09 am. -04/09/2012 Stable DC home. Follow up with Dr Jones. DC home on same meds prior to admit except aspirin reduced from 325mg daily to 81mg daily. SUMMARY 11/24/2011 03/28/2012 Overview: This is a 71 year old male with CAD s/p PCI with DARCI in PDA and Ramus, DM, HTN who presents with atypical CP over the past 5 weeks 11/27 Intermittent chest discomfort all weekend despite negative enzymes, cath today SUMMARY 05/30/2011 09/28/2011 Overview: 72 year old man known to have HTN, DM, hypercholesterolaemia, CAD s/p DARCI to the [facility] 08/2009, DARCI to the [place] 10/2010. He was admitted 05/2011 with chest pain but on repeat LHC was found to have patent stents. He was readmitted 03/2012 with chest pain but was negative for coronary ischaemia on stress echocardiogram evaluation and was medically optimised pre discharge He was admitted to an OSH on 08/24/2012 with sudden onset of chest pain at 10 AM while at a , his initial eval was negative for ACS and he has been transferred to [facility] for further evaluation and management. Started heparin,NTG last night for unstable angina. Cardiac cath - 08/27/2012 Successful PCI of Mid LAD with a 2.5 x 16 mm Promus Element DARCI H. pylori infection 05/30/2011 09/28/2011 Overview: Continue triple therapy Acute gastritis without mention of hemorrhage 09/15/2017 Renal insufficiency 11/16/2010 09/28/2011 Overview: Na Bicarb at cath. 05/30 BUN/Creat 01/12.15 Diabetes mellitus without complication 7 02/16/2016 Overview: - Accuchecks and DM diet - Sliding scale insulin. -HBa1c -5.6%. 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 017 Overview: Continue pravastatin Abdominal pain, right lower quadrant 09/28/2011 documented as of this encounter (statuses as of 12/27/2022) [facility] History of Past illness Narrative* Problem Noted Date Resolved Date Spinal stenosis, lumbar region with neurogenic c laudication 03/17/2020 05/12/2021 Neck pain 02/09/2020 05/12/2021 History of fusion of lumbar spine 02/04/2020 05/12/2021 History of fusion of cervical spine 02/04/2020 05/12/2021 Other persistent atrial fibrillation 09/08/2019 11/09/2020 Insomnia 08/21/2016 11/06/2018 Basal cell carcinoma 02/23/2015 11/06/2018 Overview: Dr. Macias, [facility] Dermatology Other seborrheic keratosis 02/17/201511/06 Overview: Dr. Tee Clemons, Dermatology Neoplasm of uncertain behavior of skin 5 11/06/2018 Overview: Behind right mid ear Dr. Tee Clemons, Dermatology Hemangioma of skin and subcutaneous tissue 02/1702/16/2016 Overview: Dr. Tee Clemons, Dermatology Pain in joint, shoulder region 02/12/2015 0 02/16/2016 Rotator cuff (capsule) sprain 12/28/2014 Rotator cuff tear, right 10/21/2012 021 Chest pain 04/07/2012 02/16/2016 Overview: Unstable angina vs NSTEMI Multiple admissions for NSTEMI and unstable angina Stress test in Sep 2015 negative Zack negative Plan: - Consider LHC if symptoms get worse Hyperlipidemia 04/07/2012 02/19/2017 DM (diabetes mellitus) 04/07/2012 6 SUMMARY 04/06/2012 09/15/2017 Overview: This is a 71 year old male with CAD (s/p PCI with DARCI in PDA and Ramus), DM, obesity and HTN who presents with typical CP over 12hrs. ECG shows mild diffuse concave ST elevation, less notable than his ECG in November 2011 when a LHC showed stable CAD. Enzymes at [place] negative. Repeat enzymes pending. Plan - Cycle ECG/Enzymes-Negativef for AR - Aspirin/Clopidogrel/BB/Statin/ARB -Stress echo negative for ischemia, discharge 04/09 am. -04/09/2012 Stable DC home. Follow up with Dr Jones. DC home on same meds prior to admit except aspirin reduced from 325mg daily to 81mg daily. SUMMARY 11/24/2011 03/28/2012 Overview: This is a 71 year old male with CAD s/p PCI with DARCI in PDA and Ramus, DM, HTN who presents with atypical CP over the past 5 weeks 11/27 Intermittent chest discomfort all weekend despite negative enzymes, cath today SUMMARY 05/30/2011 09/28/2011 Overview: 72 year old man known to have HTN, DM, hypercholesterolaemia, CAD s/p DARCI to the [facility] 08/2009, DARCI to the [place] 10/2010. He was admitted 05/2011 with chest pain but on repeat LHC was found to have patent stents. He was readmitted 03/2012 with chest pain but was negative for coronary ischaemia on stress echocardiogram evaluation and was medically optimised pre discharge He was admitted to an OSH on 08/24/2012 with sudden onset of chest pain at 10 AM while at a , his initial eval was negative for ACS and he has been transferred to [facility] for further evaluation and management. Started heparin,NTG last night for unstable angina. Cardiac cath - 08/27/2012 Successful PCI of Mid LAD with a 2.5 x 16 mm Promus Element DARCI H. pylori infection 05/30/2011 09/28/2011 Overview: Continue triple therapy Acute gastritis without mention of hemorrhage 09/15/2017 Renal insufficiency 11/16/2010 09/28/2011 Overview: Na Bicarb at cath. 05/30 BUN/Creat 01/12.15 Diabetes mellitus without complication 7 02/16/2016 Overview: - Accuchecks and DM diet - Sliding scale insulin. -HBa1c -5.6%. 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 017 Overview: Continue pravastatin Abdominal pain, right lower quadrant 09/28/2011 documented as of this encounter (statuses as of 12/28/2022) [place] [id number] History of Past illness Narrative* Problem Noted Date Resolved Date Spinal stenosis, lumbar region with neurogenic c laudication 03/17/2020 05/12/2021 Neck pain 02/09/2020 05/12/2021 History of fusion of lumbar spine 02/04/2020 05/12/2021 History of fusion of cervical spine 02/04/2020 05/12/2021 Other persistent atrial fibrillation 09/08/2019 11/09/2020 Insomnia 08/21/2016 11/06/2018 Basal cell carcinoma 02/23/2015 11/06/2018 Overview: Dr. Macias, [facility] Dermatology Other seborrheic keratosis 02/17/201511/06 Overview: Dr. Tee Clemons, Dermatology Neoplasm of uncertain behavior of skin 5 11/06/2018 Overview: Behind right mid ear Dr. Tee Clemons, Dermatology Hemangioma of skin and subcutaneous tissue 02/1702/16/2016 Overview: Dr. Tee Clemons, Dermatology Pain in joint, shoulder region 02/12/2015 0 02/16/2016 Rotator cuff (capsule) sprain 12/28/2014 Rotator cuff tear, right 10/21/2012 021 Chest pain 04/07/2012 02/16/2016 Overview: Unstable angina vs NSTEMI Multiple admissions for NSTEMI and unstable angina Stress test in Sep 2015 negative Zack negative Plan: - Consider [facility] if symptoms get worse Hyperlipidemia 04/07/2012 02/19/2017 DM (diabetes mellitus) 04/07/2012 6 SUMMARY 04/06/2012 09/15/2017 Overview: This is a 71 year old male with CAD (s/p PCI with DARCI in PDA and Ramus), DM, obesity and HTN who presents with typical CP over 12hrs. ECG shows mild diffuse concave ST elevation, less notable than his ECG in November 2011 when a LHC showed stable CAD. Enzymes at [place] negative. Repeat enzymes pending. Plan - Cycle ECG/Enzymes-Negativef for AR - Aspirin/Clopidogrel/BB/Statin/ARB -Stress echo negative for ischemia, discharge 04/09 am. -04/09/2012 Stable DC home. Follow up with Dr Jones. DC home on same meds prior to admit except aspirin reduced from 325mg daily to 81mg daily. SUMMARY 11/24/2011 03/28/2012 Overview: This is a 71 year old male with CAD s/p PCI with DARCI in PDA and Ramus, DM, HTN who presents with atypical CP over the past 5 weeks 11/27 Intermittent chest discomfort all weekend despite negative enzymes, cath today SUMMARY 05/30/2011 09/28/2011 Overview: 72 year old man known to have HTN, DM, hypercholesterolaemia, CAD s/p DARCI to the r[facility] 08/2009, DARCI to the [place] 10/2010. He was admitted 05/2011 with chest pain but on repeat LHC was found to have patent stents. He was readmitted 03/2012 with chest pain but was negative for coronary ischaemia on stress echocardiogram evaluation and was medically optimised pre discharge He was admitted to an OSH on 08/24/2012 with sudden onset of chest pain at 10 AM while at a , his initial eval was negative for ACS and he has been transferred to [facility] for further evaluation and management. Started heparin,NTG last night for unstable angina. Cardiac cath - 08/27/2012 Successful PCI of Mid LAD with a 2.5 x 16 mm Promus Element DARCI H. pylori infection 05/30/2011 09/28/2011 Overview: Continue triple therapy Acute gastritis without mention of hemorrhage 09/15/2017 Renal insufficiency 11/16/2010 09/28/2011 Overview: Na Bicarb at cath. 05/30 BUN/Creat 01/12.15 Diabetes mellitus without complication 7 02/16/2016 Overview: - Accuchecks and DM diet - Sliding scale insulin. -HBa1c -5.6%. 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 017 Overview: Continue pravastatin Abdominal pain, right lower quadrant 09/28/2011 documented as of this encounter (statuses as of 01/05/2023) [facility]04-29-2020 History of Past illness Narrative* Problem Noted Date Resolved Date Spinal stenosis, lumbar region with neurogenic c laudication 03/17/2020 05/12/2021 Neck pain 02/09/2020 05/12/2021 History of fusion of lumbar spine 02/04/2020 05/12/2021 History of fusion of cervical spine 02/04/2020 05/12/2021 Other persistent atrial fibrillation 09/08/2019 11/09/2020 Insomnia 08/21/2016 11/06/2018 Basal cell carcinoma 02/23/2015 11/06/2018 Overview: Dr. Macias, [facility] Dermatology Other seborrheic keratosis 02/17/201511/06 Overview: Dr. Tee Clemons, Dermatology Neoplasm of uncertain behavior of skin 5 11/06/2018 Overview: Behind right mid ear Dr. Tee Clemons, Dermatology Hemangioma of skin and subcutaneous tissue 02/1702/16/2016 Overview: Dr. Tee Clemons, Dermatology Pain in joint, shoulder region 02/12/2015 0 02/16/2016 Rotator cuff (capsule) sprain 12/28/2014 Rotator cuff tear, right 10/21/2012 021 Chest pain 04/07/2012 02/16/2016 Overview: Unstable angina vs NSTEMI Multiple admissions for NSTEMI and unstable angina Stress test in Sep 2015 negative Zack negative Plan: - Consider [facility] if symptoms get worse Hyperlipidemia 04/07/2012 02/19/2017 DM (diabetes mellitus) 04/07/2012 6 SUMMARY 04/06/2012 09/15/2017 Overview: This is a 71 year old male with CAD (s/p PCI with DARCI in PDA and Ramus), DM, obesity and HTN who presents with typical CP over 12hrs. ECG shows mild diffuse concave ST elevation, less notable than his ECG in November 2011 when a LHC showed stable CAD. Enzymes at [place] negative. Repeat enzymes pending. Plan - Cycle ECG/Enzymes-Negativef for AR - Aspirin/Clopidogrel/BB/Statin/ARB -Stress echo negative for ischemia, discharge 04/09 am. -04/09/2012 Stable DC home. Follow up with Dr Jones. DC home on same meds prior to admit except aspirin reduced from 325mg daily to 81mg daily. SUMMARY 11/24/2011 03/28/2012 Overview: This is a 71 year old male with CAD s/p PCI with DARCI in PDA and Ramus, DM, HTN who presents with atypical CP over the past 5 weeks 11/27 Intermittent chest discomfort all weekend despite negative enzymes, cath today SUMMARY 05/30/2011 09/28/2011 Overview: 72 year old man known to have HTN, DM, hypercholesterolaemia, CAD s/p DARCI to the rPDA 08/2009, DARCI to the [place] 10/2010. He was admitted 05/2011 with chest pain but on repeat LHC was found to have patent stents. He was readmitted 03/2012 with chest pain but was negative for coronary ischaemia on stress echocardiogram evaluation and was medically optimised pre discharge He was admitted to an OSH on 08/24/2012 with sudden onset of chest pain at 10 AM while at a , his initial eval was negative for ACS and he has been transferred to [facility] for further evaluation and management. Started heparin,NTG last night for unstable angina. Cardiac cath - 08/27/2012 Successful PCI of Mid LAD with a 2.5 x 16 mm Promus Element DARCI H. pylori infection 05/30/2011 09/28/2011 Overview: Continue triple therapy Acute gastritis without mention of hemorrhage 09/15/2017 Renal insufficiency 11/16/2010 09/28/2011 Overview: Na Bicarb at cath. 05/30 BUN/Creat 01/12.15 Diabetes mellitus without complication 7 02/16/2016 Overview: - Accuchecks and DM diet - Sliding scale insulin. -HBa1c -5.6%. 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 017 Overview: Continue pravastatin Abdominal pain, right lower quadrant 09/28/2011 documented as of this encounter (statuses as of 01/05/2023) [facility]04-29-2020 History of Past illness Narrative* Problem Noted Date Resolved Date Spinal stenosis, lumbar region with neurogenic c laudication 03/17/2020 05/12/2021 Neck pain 02/09/2020 05/12/2021 History of fusion of lumbar spine 02/04/2020 05/12/2021 History of fusion of cervical spine 02/04/2020 05/12/2021 Other persistent atrial fibrillation 09/08/2019 11/09/2020 Insomnia 08/21/2016 11/06/2018 Basal cell carcinoma 02/23/2015 11/06/2018 Overview: Dr. Macias, [facility] Dermatology Other seborrheic keratosis 02/17/201511/06 Overview: Dr. Tee Clemons, Dermatology Neoplasm of uncertain behavior of skin 5 11/06/2018 Overview: Behind right mid ear Dr. Tee Clemons, Dermatology Hemangioma of skin and subcutaneous tissue 02/1702/16/2016 Overview: Dr. Tee Clemons, Dermatology Pain in joint, shoulder region 02/12/2015 0 02/16/2016 Rotator cuff (capsule) sprain 12/28/2014 Rotator cuff tear, right 10/21/2012 021 Chest pain 04/07/2012 02/16/2016 Overview: Unstable angina vs NSTEMI Multiple admissions for NSTEMI and unstable angina Stress test in Sep 2015 negative Zack negative Plan: - Consider LHC if symptoms get worse Hyperlipidemia 04/07/2012 02/19/2017 DM (diabetes mellitus) 04/07/2012 6 SUMMARY 04/06/2012 09/15/2017 Overview: This is a 71 year old male with CAD (s/p PCI with DARCI in PDA and Ramus), DM, obesity and HTN who presents with typical CP over 12hrs. ECG shows mild diffuse concave ST elevation, less notable than his ECG in November 2011 when a LHC showed stable CAD. Enzymes at [place] negative. Repeat enzymes pending. Plan - Cycle ECG/Enzymes-Negativef for AR - Aspirin/Clopidogrel/BB/Statin/ARB -Stress echo negative for ischemia, discharge 04/09 am. -04/09/2012 Stable DC home. Follow up with Dr Jones. DC home on same meds prior to admit except aspirin reduced from 325mg daily to 81mg daily. SUMMARY 11/24/2011 03/28/2012 Overview: This is a 71 year old male with CAD s/p PCI with DARCI in PDA and Ramus, DM, HTN who presents with atypical CP over the past 5 weeks 11/27 Intermittent chest discomfort all weekend despite negative enzymes, cath today SUMMARY 05/30/2011 09/28/2011 Overview: 72 year old man known to have HTN, DM, hypercholesterolaemia, CAD s/p DARCI to the r[facility]DA 08/2009, DARCI to the [place] 10/2010. He was admitted 05/2011 with chest pain but on repeat LHC was found to have patent stents. He was readmitted 03/2012 with chest pain but was negative for coronary ischaemia on stress echocardiogram evaluation and was medically optimised pre discharge He was admitted to an OSH on 08/24/2012 with sudden onset of chest pain at 10 AM while at a , his initial eval was negative for ACS and he has been transferred to [facility] for further evaluation and management. Started heparin,NTG last night for unstable angina. Cardiac cath - 08/27/2012 Successful PCI of Mid LAD with a 2.5 x 16 mm Promus Element DARCI H. pylori infection 05/30/2011 09/28/2011 Overview: Continue triple therapy Acute gastritis without mention of hemorrhage 09/15/2017 Renal insufficiency 11/16/2010 09/28/2011 Overview: Na Bicarb at cath. 05/30 BUN/Creat 01/12.15 Diabetes mellitus without complication 7 02/16/2016 Overview: - Accuchecks and DM diet - Sliding scale insulin. -HBa1c -5.6%. 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 017 Overview: Continue pravastatin Abdominal pain, right lower quadrant 09/28/2011 documented as of this encounter (statuses as of 01/16/2023) [facility]04-[facility]2020 History of Past illness Narrative* Problem Noted Date Resolved Date Spinal stenosis, lumbar region with neurogenic c laudication 03/17/2020 05/12/2021 Neck pain 02/09/2020 05/12/2021 History of fusion of lumbar spine 02/04/2020 05/12/2021 History of fusion of cervical spine 02/04/2020 05/12/2021 Other persistent atrial fibrillation 09/08/2019 11/09/2020 Insomnia 08/21/2016 11/06/2018 Basal cell carcinoma 02/23/2015 11/06/2018 Overview: Dr. Macias, [facility] Dermatology Other seborrheic keratosis 02/17/201511/06 Overview: Dr. Tee Clemons, Dermatology Neoplasm of uncertain behavior of skin 5 11/06/2018 Overview: Behind right mid ear Dr. Tee Clemons, Dermatology Hemangioma of skin and subcutaneous tissue 02/1702/16/2016 Overview: Dr. Tee Clemons, Dermatology Pain in joint, shoulder region 02/12/2015 0 02/16/2016 Rotator cuff (capsule) sprain 12/28/2014 Rotator cuff tear, right 10/21/201205/12/2 021 Chest pain 04/07/2012 02/16/2016 Overview: Unstable angina vs NSTEMI Multiple admissions for NSTEMI and unstable angina Stress test in Sep 2015 negative Zack negative Plan: - Consider LHC if symptoms get worse Hyperlipidemia 04/07/2012 02/19/2017 DM (diabetes mellitus) 04/07/2012 6 SUMMARY 04/06/2012 09/15/2017 Overview: This is a 71 year old male with CAD (s/p PCI with DARCI in PDA and Ramus), DM, obesity and HTN who presents with typical CP over 12hrs. ECG shows mild diffuse concave ST elevation, less notable than his ECG in November 2011 when a LHC showed stable CAD. Enzymes at [place] negative. Repeat enzymes pending. Plan - Cycle ECG/Enzymes-Negativef for AR - Aspirin/Clopidogrel/BB/Statin/ARB -Stress echo negative for ischemia, discharge 04/09 am. -04/09/2012 Stable DC home. Follow up with Dr Jones. DC home on same meds prior to admit except aspirin reduced from 325mg daily to 81mg daily. SUMMARY 11/24/2011 03/28/2012 Overview: This is a 71 year old male with CAD s/p PCI with DARCI in PDA and Ramus, DM, HTN who presents with atypical CP over the past 5 weeks / Intermittent chest discomfort all weekend despite negative enzymes, cath today SUMMARY 05/30/2011 09/28/2011 Overview: 72 year old man known to have HTN, DM, hypercholesterolaemia, CAD s/p DARCI to the r[facility] 08/2009, DARCI to the [place] 10/2010. He was admitted 05/2011 with chest pain but on repeat LHC was found to have patent stents. He was readmitted 03/2012 with chest pain but was negative for coronary ischaemia on stress echocardiogram evaluation and was medically optimised pre discharge He was admitted to an OSH on 08/24/2012 with sudden onset of chest pain at 10 AM while at a , his initial eval was negative for ACS and he has been transferred to [facility] for further evaluation and management. Started heparin,NTG last night for unstable angina. Cardiac cath - 08/27/2012 Successful PCI of Mid LAD with a 2.5 x 16 mm Promus Element DARCI H. pylori infection 05/30/2011 09/28/2011 Overview: Continue triple therapy Acute gastritis without mention of hemorrhage 09/15/2017 Renal insufficiency 11/16/2010 09/28/2011 Overview: Na Bicarb at cath. 05/30 BUN/Creat 01/12.15 Diabetes mellitus without complication 7 02/16/2016 Overview: - Accuchecks and DM diet - Sliding scale insulin. -HBa1c -5.6%. 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 017 Overview: Continue pravastatin Abdominal pain, right lower quadrant 09/28/2011 documented as of this encounter (statuses as of 02/12/2023) [facility]2020 History of Past illness Narrative* Problem Noted Date Resolved Date Spinal stenosis, lumbar region with neurogenic c laudication 03/17/2020 05/12/2021 Neck pain 02/09/2020 05/12/2021 History of fusion of lumbar spine 02/04/2020 05/12/2021 History of fusion of cervical spine 02/04/2020 05/12/2021 Other persistent atrial fibrillation 09/08/2019 11/09/2020 Insomnia 08/21/2016 11/06/2018 Basal cell carcinoma 02/23/2015 11/06/2018 Overview: Dr. Macias, [facility] Dermatology Other seborrheic keratosis 02/17/201511/06 Overview: Dr. Tee Clemons, Dermatology Neoplasm of uncertain behavior of skin 5 11/06/2018 Overview: Behind right mid ear Dr. Tee Clemons, Dermatology Hemangioma of skin and subcutaneous tissue 02/1702/16/2016 Overview: Dr. Tee Clemons, Dermatology Pain in joint, shoulder region 02/12/2015 0 02/16/2016 Rotator cuff (capsule) sprain 12/28/2014 Rotator cuff tear, right 10/21/2012 021 Chest pain 04/07/2012 02/16/2016 Overview: Unstable angina vs NSTEMI Multiple admissions for NSTEMI and unstable angina Stress test in Sep 2015 negative Zack negative Plan: - Consider LHC if symptoms get worse Hyperlipidemia 04/07/2012 02/19/2017 DM (diabetes mellitus) 04/07/2012 6 SUMMARY 04/06/2012 09/15/2017 Overview: This is a 71 year old male with CAD (s/p PCI with DARCI in PDA and Ramus), DM, obesity and HTN who presents with typical CP over 12hrs. ECG shows mild diffuse concave ST elevation, less notable than his ECG in November 2011 when a LHC showed stable CAD. Enzymes at [place] negative. Repeat enzymes pending. Plan - Cycle ECG/Enzymes-Negativef for AR - Aspirin/Clopidogrel/BB/Statin/ARB -Stress echo negative for ischemia, discharge 04/09 am. -04/09/2012 Stable DC home. Follow up with Dr Jones. DC home on same meds prior to admit except aspirin reduced from 325mg daily to 81mg daily. SUMMARY 11/24/2011 03/28/2012 Overview: This is a 71 year old male with CAD s/p PCI with DARCI in PDA and Ramus, DM, HTN who presents with atypical CP over the past 5 weeks 1/9 Intermittent chest discomfort all weekend despite negative enzymes, cath today SUMMARY 05/30/2011 09/28/2011 Overview: 72 year old man known to have HTN, DM, hypercholesterolaemia, CAD s/p DARCI to the r[facility] 08/2009, DARCI to the [place] 10/2010. He was admitted 05/2011 with chest pain but on repeat LHC was found to have patent stents. He was readmitted 03/2012 with chest pain but was negative for coronary ischaemia on stress echocardiogram evaluation and was medically optimised pre discharge He was admitted to an OSH on 08/24/2012 with sudden onset of chest pain at 10 AM while at a , his initial eval was negative for ACS and he has been transferred to [facility] for further evaluation and management. Started heparin,NTG last night for unstable angina. Cardiac cath - 08/27/2012 Successful PCI of Mid LAD with a 2.5 x 16 mm Promus Element DARCI H. pylori infection 05/30/2011 09/28/2011 Overview: Continue triple therapy Acute gastritis without mention of hemorrhage 09/15/2017 Renal insufficiency 11/16/2010 09/28/2011 Overview: Na Bicarb at cath. 05/30 BUN/Creat 01/12.15 Diabetes mellitus without complication 7 02/16/2016 Overview: - Accuchecks and DM diet - Sliding scale insulin. -HBa1c -5.6%. 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 017 Overview: Continue pravastatin Abdominal pain, right lower quadrant 09/28/2011 documented as of this encounter (statuses as of 02/20/2023) [facility] History of Past illness Narrative* Problem Noted Date Resolved Date Spinal stenosis, lumbar region with neurogenic c laudication 03/17/2020 05/12/2021 Neck pain 02/09/2020 05/12/2021 History of fusion of lumbar spine 02/04/2020 05/12/2021 History of fusion of cervical spine 02/04/2020 05/12/2021 Other persistent atrial fibrillation 09/08/2019 11/09/2020 Insomnia 08/21/2016 11/06/2018 Basal cell carcinoma 02/23/2015 11/06/2018 Overview: Dr. Macias, [facility] Dermatology Other seborrheic keratosis 02/17/201511/06 Overview: Dr. Tee Clemons, Dermatology Neoplasm of uncertain behavior of skin 5 11/06/2018 Overview: Behind right mid ear Dr. Tee Clemons, Dermatology Hemangioma of skin and subcutaneous tissue 02/1702/16/2016 Overview: Dr. Tee Clemons, Dermatology Pain in joint, shoulder region 02/12/2015 0 02/16/2016 Rotator cuff (capsule) sprain 12/28/2014 Rotator cuff tear, right 10/21/2012 021 Chest pain 04/07/2012 02/16/2016 Overview: Unstable angina vs NSTEMI Multiple admissions for NSTEMI and unstable angina Stress test in Sep 2015 negative Zack negative Plan: - Consider LHC if symptoms get worse Hyperlipidemia 04/07/2012 02/19/2017 DM (diabetes mellitus) 04/07/2012 6 SUMMARY 04/06/2012 09/15/2017 Overview: This is a 71 year old male with CAD (s/p PCI with DARCI in PDA and Ramus), DM, obesity and HTN who presents with typical CP over 12hrs. ECG shows mild diffuse concave ST elevation, less notable than his ECG in November 2011 when a LHC showed stable CAD. Enzymes at [place] negative. Repeat enzymes pending. Plan - Cycle ECG/Enzymes-Negativef for AR - Aspirin/Clopidogrel/BB/Statin/ARB -Stress echo negative for ischemia, discharge 04/09 am. -04/09/2012 Stable DC home. Follow up with Dr Jones. DC home on same meds prior to admit except aspirin reduced from 325mg daily to 81mg daily. SUMMARY 11/24/2011 03/28/2012 Overview: This is a 71 year old male with CAD s/p PCI with DARCI in PDA and Ramus, DM, HTN who presents with atypical CP over the past 5 weeks 1/9 Intermittent chest discomfort all weekend despite negative enzymes, cath today SUMMARY 05/30/2011 09/28/2011 Overview: 72 year old man known to have HTN, DM, hypercholesterolaemia, CAD s/p DARCI to the [facility] 08/2009, DARCI to [place] 10/2010. He was admitted 05/2011 with chest pain but on repeat LHC was found to have patent stents. He was readmitted 03/2012 with chest pain but was negative for coronary ischaemia on stress echocardiogram evaluation and was medically optimised pre discharge He was admitted to an OSH on 08/24/2012 with sudden onset of chest pain at 10 AM while at a , his initial eval was negative for ACS and he has been transferred to [facility] for further evaluation and management. Started heparin,NTG last night for unstable angina. Cardiac cath - 08/27/2012 Successful PCI of Mid LAD with a 2.5 x 16 mm Promus Element DARCI H. pylori infection 05/30/2011 09/28/2011 Overview: Continue triple therapy Acute gastritis without mention of hemorrhage 09/15/2017 Renal insufficiency 11/16/2010 09/28/2011 Overview: Na Bicarb at cath. 05/30 BUN/Creat 01/12.15 Diabetes mellitus without complication 7 02/16/2016 Overview: - Accuchecks and DM diet - Sliding scale insulin. -HBa1c -5.6%. 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 017 Overview: Continue pravastatin Abdominal pain, right lower quadrant 09/28/2011 documented as of this encounter (statuses as of 02/21/2023) [facility] History of Past illness Narrative* Problem Noted Date Resolved Date Spinal stenosis, lumbar region with neurogenic c laudication 03/17/2020 05/12/2021 Neck pain 02/09/2020 05/12/2021 History of fusion of lumbar spine 02/04/2020 05/12/2021 History of fusion of cervical spine 02/04/2020 05/12/2021 Other persistent atrial fibrillation 09/08/2019 11/09/2020 Insomnia 08/21/2016 11/06/2018 Basal cell carcinoma 02/23/2015 11/06/2018 Overview: Dr. Macias, [facility] Other seborrheic keratosis 02/17/201511/06 Overview: Dr. Tee Clemons, Dermatology Neoplasm of uncertain behavior of skin 5 11/06/2018 Overview: Behind right mid ear Dr. Tee Clemons, Dermatology Hemangioma of skin and subcutaneous tissue 02/1702/16/2016 Overview: Dr. Tee Clemons, Dermatology Pain in joint, shoulder region 02/12/2015 0 02/16/2016 Rotator cuff (capsule) sprain 12/28/2014 Rotator cuff tear, right 10/21/2012 021 Chest pain 04/07/2012 02/16/2016 Overview: Unstable angina vs NSTEMI Multiple admissions for NSTEMI and unstable angina Stress test in Sep 2015 negative Zack negative Plan: - Consider LHC if symptoms get worse Hyperlipidemia 04/07/2012 02/19/2017 DM (diabetes mellitus) 04/07/2012 6 SUMMARY 04/06/2012 09/15/2017 Overview: This is a 71 year old male with CAD (s/p PCI with DARCI in PDA and Ramus), DM, obesity and HTN who presents with typical CP over 12hrs. ECG shows mild diffuse concave ST elevation, less notable than his ECG in November 2011 when a LHC showed stable CAD. Enzymes at [place] negative. Repeat enzymes pending. Plan - Cycle ECG/Enzymes-Negativef for AR - Aspirin/Clopidogrel/BB/Statin/ARB -Stress echo negative for ischemia, discharge 04/09 am. -04/09/2012 Stable DC home. Follow up with Dr Jones. DC home on same meds prior to admit except aspirin reduced from 325mg daily to 81mg daily. SUMMARY 11/24/2011 03/28/2012 Overview: This is a 71 year old male with CAD s/p PCI with DARCI in PDA and Ramus, DM, HTN who presents with atypical CP over the past 5 weeks 11/27 Intermittent chest discomfort all weekend despite negative enzymes, cath today SUMMARY 05/30/2011 09/28/2011 Overview: 72 year old man known to have HTN, DM, hypercholesterolaemia, CAD s/p DARCI to the [facility] 08/2009, DARCI to the [place] 10/2010. He was admitted 05/2011 with chest pain but on repeat LHC was found to have patent stents. He was readmitted 03/2012 with chest pain but was negative for coronary ischaemia on stress echocardiogram evaluation and was medically optimised pre discharge He was admitted to an OSH on 08/24/2012 with sudden onset of chest pain at 10 AM while at a , his initial eval was negative for ACS and he has been transferred to [facility] for further evaluation and management. Started heparin,NTG last night for unstable angina. Cardiac cath - 08/27/2012 Successful PCI of Mid LAD with a 2.5 x 16 mm Promus Element DARCI H. pylori infection 05/30/2011 09/28/2011 Overview: Continue triple therapy Acute gastritis without mention of hemorrhage 09/15/2017 Renal insufficiency 11/16/2010 09/28/2011 Overview: Na Bicarb at cath. 05/30 BUN/Creat 13/1.15 Diabetes mellitus without complication 7 02/16/2016 Overview: - Accuchecks and DM diet - Sliding scale insulin. -HBa1c -5.6%. 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 017 Overview: Continue pravastatin Abdominal pain, right lower quadrant 09/28/2011 documented as of this encounter (statuses as of 02/22/2023) [facility]04-29-2020 History of Past illness Narrative* Problem Noted Date Resolved Date Spinal stenosis, lumbar region with neurogenic c laudication 03/17/2020 05/12/2021 Neck pain 02/09/2020 05/12/2021 History of fusion of lumbar spine 02/04/2020 05/12/2021 History of fusion of cervical spine 02/04/2020 05/12/2021 Other persistent atrial fibrillation 09/08/2019 11/09/2020 Insomnia 08/21/2016 11/06/2018 Basal cell carcinoma 02/23/2015 11/06/2018 Overview: Dr. Macias, [facility] Dermatology Other seborrheic keratosis 02/17/201511/06 Overview: Dr. Tee Clemons, Dermatology Neoplasm of uncertain behavior of skin 5 11/06/2018 Overview: Behind right mid ear Dr. eTe Clemons, Dermatology Hemangioma of skin and subcutaneous tissue 02/1702/16/2016 Overview: Dr. Tee Clemons, Dermatology Pain in joint, shoulder region 02/12/2015 0 02/16/2016 Rotator cuff (capsule) sprain 12/28/2014 Rotator cuff tear, right 10/21/2012 021 Chest pain 04/07/2012 02/16/2016 Overview: Unstable angina vs NSTEMI Multiple admissions for NSTEMI and unstable angina Stress test in Sep 2015 negative Zack negative Plan: - Consider LHC if symptoms get worse Hyperlipidemia 04/07/2012 02/19/2017 DM (diabetes mellitus) 04/07/2012 6 SUMMARY 04/06/2012 09/15/2017 Overview: This is a 71 year old male with CAD (s/p PCI with DARCI in PDA and Ramus), DM, obesity and HTN who presents with typical CP over 12hrs. ECG shows mild diffuse concave ST elevation, less notable than his ECG in November 2011 when a LHC showed stable CAD. Enzymes at [facility] negative. Repeat enzymes pending. Plan - Cycle ECG/Enzymes-Negativef for AR - Aspirin/Clopidogrel/BB/Statin/ARB -Stress echo negative for ischemia, discharge 04/09 am. -04/09/2012 Stable DC home. Follow up with Dr Jones. DC home on same meds prior to admit except aspirin reduced from 325mg daily to 81mg daily. SUMMARY 11/24/2011 03/28/2012 Overview: This is a 71 year old male with CAD s/p PCI with DARCI in PDA and Ramus, DM, HTN who presents with atypical CP over the past 5 weeks 11/27 Intermittent chest discomfort all weekend despite negative enzymes, cath today SUMMARY 05/30/2011 09/28/2011 Overview: 72 year old man known to have HTN, DM, hypercholesterolaemia, CAD s/p DARCI to the [facility] 08/2009, DARCI to the [place] 10/2010. He was admitted 05/2011 with chest pain but on repeat LHC was found to have patent stents. He was readmitted 03/2012 with chest pain but was negative for coronary ischaemia on stress echocardiogram evaluation and was medically optimised pre discharge He was admitted to an OSH on 08/24/2012 with sudden onset of chest pain at 10 AM while at a , his initial eval was negative for ACS and he has been transferred to [facility] for further evaluation and management. Started heparin,NTG last night for unstable angina. Cardiac cath - 08/27/2012 Successful PCI of Mid LAD with a 2.5 x 16 mm Promus Element DARCI H. pylori infection 05/30/2011 09/28/2011 Overview: Continue triple therapy Acute gastritis without mention of hemorrhage 09/15/2017 Renal insufficiency 11/16/2010 09/28/2011 Overview: Na Bicarb at cath. 05/30 BUN/Creat 01/12.15 Diabetes mellitus without complication 7 02/16/2016 Overview: - Accuchecks and DM diet - Sliding scale insulin. -HBa1c -5.6%. 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 017 Overview: Continue pravastatin Abdominal pain, right lower quadrant 09/28/2011 documented as of this encounter (statuses as of 03/15/2023) [facility]04-[facility]2020 History of Past illness Narrative* Problem Noted Date Resolved Date Spinal stenosis, lumbar region with neurogenic c laudication 03/17/2020 05/12/2021 Neck pain 02/09/2020 05/12/2021 History of fusion of lumbar spine 02/04/2020 05/12/2021 History of fusion of cervical spine 02/04/2020 05/12/2021 Other persistent atrial fibrillation 09/08/2019 11/09/2020 Insomnia 08/21/2016 11/06/2018 Basal cell carcinoma 02/23/2015 11/06/2018 Overview: Dr. Macias, [facility] Dermatology Other seborrheic keratosis 02/17/201511/06 Overview: Dr. Tee Clemons, Dermatology Neoplasm of uncertain behavior of skin 5 11/06/2018 Overview: Behind right mid ear Dr. Tee Clemons, Dermatology Hemangioma of skin and subcutaneous tissue 02/1702/16/2016 Overview: Dr. Tee Clemons, Dermatology Pain in joint, shoulder region 02/12/2015 0 02/16/2016 Rotator cuff (capsule) sprain 12/28/2014 Rotator cuff tear, right 10/21/2012 021 Chest pain 04/07/2012 02/16/2016 Overview: Unstable angina vs NSTEMI Multiple admissions for NSTEMI and unstable angina Stress test in Sep 2015 negative Zack negative Plan: - Consider C if symptoms get worse Hyperlipidemia 04/07/2012 02/19/2017 DM (diabetes mellitus) 04/07/2012 6 SUMMARY 04/06/2012 09/15/2017 Overview: This is a 71 year old male with CAD (s/p PCI with DARCI in PDA and Ramus), DM, obesity and HTN who presents with typical CP over 12hrs. ECG shows mild diffuse concave ST elevation, less notable than his ECG in November 2011 when a LHC showed stable CAD. Enzymes at [facility] negative. Repeat enzymes pending. Plan - Cycle ECG/Enzymes-Negativef for AR - Aspirin/Clopidogrel/BB/Statin/ARB -Stress echo negative for ischemia, discharge 04/09 am. -04/09/2012 Stable DC home. Follow up with Dr Jones. DC home on same meds prior to admit except aspirin reduced from 325mg daily to 81mg daily. SUMMARY 11/24/2011 03/28/2012 Overview: This is a 71 year old male with CAD s/p PCI with DARCI in PDA and Ramus, DM, HTN who presents with atypical CP over the past 5 weeks 11/27 Intermittent chest discomfort all weekend despite negative enzymes, cath today SUMMARY 05/30/2011 09/28/2011 Overview: 72 year old man known to have HTN, DM, hypercholesterolaemia, CAD s/p DARCI to the [facility] 08/2009, DARCI to the [place] 10/2010. He was admitted 05/2011 with chest pain but on repeat LHC was found to have patent stents. He was readmitted 03/2012 with chest pain but was negative for coronary ischaemia on stress echocardiogram evaluation and was medically optimised pre discharge He was admitted to an OSH on 08/24/2012 with sudden onset of chest pain at 10 AM while at a , his initial eval was negative for ACS and he has been transferred to [facility] for further evaluation and management. Started heparin,NTG last night for unstable angina. Cardiac cath - 08/27/2012 Successful PCI of Mid LAD with a 2.5 x 16 mm Promus Element DARCI H. pylori infection 05/30/2011 09/28/2011 Overview: Continue triple therapy Acute gastritis without mention of hemorrhage 09/15/2017 Renal insufficiency 11/16/2010 09/28/2011 Overview: Na Bicarb at cath. 05/30 BUN/Creat 01/12.15 Diabetes mellitus without complication 7 02/16/2016 Overview: - Accuchecks and DM diet - Sliding scale insulin. -HBa1c -5.6%. 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 017 Overview: Continue pravastatin Abdominal pain, right lower quadrant 09/28/2011 documented as of this encounter (statuses as of 03/16/2023) [facility]2020 History of Past illness Narrative* Problem Noted Date Resolved Date Spinal stenosis, lumbar region with neurogenic c laudication 03/17/2020 05/12/2021 Neck pain 02/09/2020 05/12/2021 History of fusion of lumbar spine 02/04/2020 05/12/2021 History of fusion of cervical spine 02/04/2020 05/12/2021 Other persistent atrial fibrillation 09/08/2019 11/09/2020 Insomnia 08/21/2016 11/06/2018 Basal cell carcinoma 02/23/2015 11/06/2018 Overview: Dr. Macias, [facility] Dermatology Other seborrheic keratosis 02/17/201511/06 Overview: Dr. Tee Clemons, Dermatology Neoplasm of uncertain behavior of skin 5 11/06/2018 Overview: Behind right mid ear Dr. Tee Clemons, Dermatology Hemangioma of skin and subcutaneous tissue 02/1702/16/2016 Overview: Dr. Tee Clemons, Dermatology Pain in joint, shoulder region 02/12/2015 0 02/16/2016 Rotator cuff (capsule) sprain 12/28/2014 Rotator cuff tear, right 10/21/2012 021 Chest pain 04/07/2012 02/16/2016 Overview: Unstable angina vs NSTEMI Multiple admissions for NSTEMI and unstable angina Stress test in Sep 2015 negative Zack negative Plan: - Consider [facility] if symptoms get worse Hyperlipidemia 04/07/2012 02/19/2017 DM (diabetes mellitus) 04/07/2012 6 SUMMARY 04/06/2012 09/15/2017 Overview: This is a 71 year old male with CAD (s/p PCI with DARCI in PDA and Ramus), DM, obesity and HTN who presents with typical CP over 12hrs. ECG shows mild diffuse concave ST elevation, less notable than his ECG in November 2011 when a LHC showed stable CAD. Enzymes at [place] negative. Repeat enzymes pending. Plan - Cycle ECG/Enzymes-Negativef for AR - Aspirin/Clopidogrel/BB/Statin/ARB -Stress echo negative for ischemia, discharge 04/09 am. -04/09/2012 Stable DC home. Follow up with Dr Jones. DC home on same meds prior to admit except aspirin reduced from 325mg daily to 81mg daily. SUMMARY 11/24/2011 03/28/2012 Overview: This is a 71 year old male with CAD s/p PCI with DARCI in PDA and Ramus, DM, HTN who presents with atypical CP over the past 5 weeks 11/27 Intermittent chest discomfort all weekend despite negative enzymes, cath today SUMMARY 05/30/2011 09/28/2011 Overview: 72 year old man known to have HTN, DM, hypercholesterolaemia, CAD s/p DARCI to the [facility] 08/2009, DARCI to the [place] 10/2010. He was admitted 05/2011 with chest pain but on repeat LHC was found to have patent stents. He was readmitted 03/2012 with chest pain but was negative for coronary ischaemia on stress echocardiogram evaluation and was medically optimised pre discharge He was admitted to an OSH on 08/24/2012 with sudden onset of chest pain at 10 AM while at a , his initial eval was negative for ACS and he has been transferred to [facility] for further evaluation and management. Started heparin,NTG last night for unstable angina. Cardiac cath - 08/27/2012 Successful PCI of Mid LAD with a 2.5 x 16 mm Promus Element DARCI H. pylori infection 05/30/2011 09/28/2011 Overview: Continue triple therapy Acute gastritis without mention of hemorrhage 09/15/2017 Renal insufficiency 11/16/2010 09/28/2011 Overview: Na Bicarb at cath. 05/30 BUN/Creat 13.15 Diabetes mellitus without complication 7 02/16/2016 Overview: - Accuchecks and DM diet - Sliding scale insulin. -HBa1c -5.6%. 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 017 Overview: Continue pravastatin Abdominal pain, right lower quadrant 09/28/2011 documented as of this encounter (statuses as of 04/18/2023) [facility]2020 History of Past illness Narrative* Problem Noted Date Resolved Date Spinal stenosis, lumbar region with neurogenic c laudication 03/17/2020 05/12/2021 Neck pain 02/09/2020 05/12/2021 History of fusion of lumbar spine 02/04/2020 05/12/2021 History of fusion of cervical spine 02/04/2020 05/12/2021 Other persistent atrial fibrillation 09/08/2019 11/09/2020 Insomnia 08/21/2016 11/06/2018 Basal cell carcinoma 02/23/2015 11/06/2018 Overview: Dr. Macias, [facility] Dermatology Other seborrheic keratosis 02/17/201511/06 Overview: Dr. Tee Clemons, Dermatology Neoplasm of uncertain behavior of skin 5 11/06/2018 Overview: Behind right mid ear Dr. Tee Clemons, Dermatology Hemangioma of skin and subcutaneous tissue 02/1702/16/2016 Overview: Dr. Tee Clemons, Dermatology Pain in joint, shoulder region 02/12/2015 0 02/16/2016 Rotator cuff (capsule) sprain 12/28/2014 Rotator cuff tear, right 10/21/2012 021 Chest pain 04/07/2012 02/16/2016 Overview: Unstable angina vs NSTEMI Multiple admissions for NSTEMI and unstable angina Stress test in Sep 2015 negative Zack negative Plan: - Consider LHC if symptoms get worse Hyperlipidemia 04/07/2012 02/19/2017 DM (diabetes mellitus) 04/07/2012 6 SUMMARY 04/06/2012 09/15/2017 Overview: This is a 71 year old male with CAD (s/p PCI with DARCI in PDA and Ramus), DM, obesity and HTN who presents with typical CP over 12hrs. ECG shows mild diffuse concave ST elevation, less notable than his ECG in November 2011 when a LHC showed stable CAD. Enzymes at [facility] negative. Repeat enzymes pending. Plan - Cycle ECG/Enzymes-Negativef for AR - Aspirin/Clopidogrel/BB/Statin/ARB -Stress echo negative for ischemia, discharge 04/09 am. -04/09/2012 Stable DC home. Follow up with Dr Jones. DC home on same meds prior to admit except aspirin reduced from 325mg daily to 81mg daily. SUMMARY 11/24/2011 03/28/2012 Overview: This is a 71 year old male with CAD s/p PCI with DARCI in PDA and Ramus, DM, HTN who presents with atypical CP over the past 5 weeks 11/27 Intermittent chest discomfort all weekend despite negative enzymes, cath today SUMMARY 05/30/2011 09/28/2011 Overview: 72 year old man known to have HTN, DM, hypercholesterolaemia, CAD s/p DARCI to the [facility] 08/2009, DARCI to the [place] 10/2010. He was admitted 05/2011 with chest pain but on repeat LHC was found to have patent stents. He was readmitted 03/2012 with chest pain but was negative for coronary ischaemia on stress echocardiogram evaluation and was medically optimised pre discharge He was admitted to an OSH on 08/24/2012 with sudden onset of chest pain at 10 AM while at a , his initial eval was negative for ACS and he has been transferred to [facility] for further evaluation and management. Started heparin,NTG last night for unstable angina. Cardiac cath - 08/27/2012 Successful PCI of Mid LAD with a 2.5 x 16 mm Promus Element DARCI H. pylori infection 05/30/2011 09/28/2011 Overview: Continue triple therapy Acute gastritis without mention of hemorrhage 09/15/2017 Renal insufficiency 11/16/2010 09/28/2011 Overview: Na Bicarb at cath. 05/30 BUN/Creat 13.15 Diabetes mellitus without complication 7 02/16/2016 Overview: - Accuchecks and DM diet - Sliding scale insulin. -HBa1c -5.6%. 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 017 Overview: Continue pravastatin Abdominal pain, right lower quadrant 09/28/2011 documented as of this encounter (statuses as of 05/11/2023) [facility] History of Past illness Narrative* Problem Noted Date Diagnosed Date Resolved Date Spinal stenosis, lumbar braulio on with neurogenic claudication 03/17/2020 05/12/2021 Neck pain 02/09/2020 05/12/2021 Spondylolisthesis of lumbar region 02/04/2020 06/28/2023 History of fusion of lumbar spine 02/04/2020 05/12/2021 History of fusion of cervical spine 02/04/2020 05/12/2021 Other persistent atrial fibrillation 09/08/2019 11/09/2020 Insomnia 08/21/2016 11/06/2018 Arthritis, midfoot 02/16/2016 3 Basal cell carcinoma 02/23/2015 018 Overview: Dr. Macias, [facility] Dermatology Other seborrheic keratosis 02/17/2015 1 01/07/2018 Overview: Dr. Tee Clemons, Dermatology Neoplasm of uncertain behavior of skin 02/17/2015 11/06/2018 Overview: Behind right mid ear Dr. Tee Clemons, Dermatology Hemangioma of skin and subcutaneous tissue 02/17/2015 02/16/2016 Overview: Dr. Tee Clemons, Dermatology Pain in joint, shoulder region 02/12/2015 02/16/2016 Rotator cuff (capsule) sprain 12/28/2014 12/28/2014 Rotator cuff tear, right 10/21/2012 Chest pain 04/07/2012 02/16/2016 Overview: Unstable angina vs NSTEMI Multiple admissions for NSTEMI and unstable angina Stress test in Sep 2015 negative Zack negative Plan: - Consider LHC if symptoms get worse Hyperlipidemia 04/07/2012 02/19/2017 DM (diabetes mellitus) 04/07/201202/15 SUMMARY 04/06/2012 09/15/2017 Overview: This is a 71 year old male with CAD (s/p PCI with DARCI in PDA and Ramus), DM, obesity and HTN who presents with typical CP over 12hrs. ECG shows mild diffuse concave ST elevation, less notable than his ECG in November 2011 when a LHC showed stable CAD. Enzymes at [place] negative. Repeat enzymes pending. Plan - Cycle ECG/Enzymes-Negativef for AR - Aspirin/Clopidogrel/BB/Statin/ARB -Stress echo negative for ischemia, discharge 04/09 am. -04/09/2012 Stable DC home. Follow up with Dr Jones. DC home on same meds prior to admit except aspirin reduced from 325mg daily to 81mg daily. SUMMARY 11/24/2011 03/28/2012 Overview: This is a 71 year old male with CAD s/p PCI with DARCI in PDA and Ramus, DM, HTN who presents with atypical CP over the past 5 weeks 1/ Intermittent chest discomfort all weekend despite negative enzymes, cath today SUMMARY 05/30/2011 09/28/2011 Overview: 72 year old man known to have HTN, DM, hypercholesterolaemia, CAD s/p DARCI to the [facility] 08/2009, DARCI to the [place] 10/2010. He was admitted 05/2011 with chest pain but on repeat LHC was found to have patent stents. He was readmitted 03/2012 with chest pain but was negative for coronary ischaemia on stress echocardiogram evaluation and was medically optimised pre discharge He was admitted to an OSH on 08/24/2012 with sudden onset of chest pain at 10 AM while at a , his initial eval was negative for ACS and he has been transferred to [facility] for further evaluation and management. Started heparin,NTG last night for unstable angina. Cardiac cath - 08/27/2012 Successful PCI of Mid LAD with a 2.5 x 16 mm Promus Element DARCI H. pylori infection 05/30/2011 09/28/20 11 Overview: Continue triple therapy Acute gastritis without mention of hemorrhage 01/20/20 11 09/15/2017 Renal insufficiency 11/16/2010 09/28/20 11 Overview: Na Bicarb at cath. 05/30 BUN/Creat 01/12.15 Diabetes mellitus without complication 07/08/2007 02/16/2016 Overview: - Accuchecks and DM diet - Sliding scale insulin. -HBa1c -5.6%. 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/2017 Overview: Continue pravastatin documented as of this encounter (statuses as of 06/28/2023) [facility] History of Past illness Narrative* Problem Noted Date Diagnosed Date Resolved Date Spinal stenosis, lumbar braulio on with neurogenic claudication 03/17/2020 05/12/2021 Neck pain 02/09/2020 05/12/2021 Spondylolisthesis of lumbar region 02/04/2020 06/28/2023 History of fusion of lumbar spine 02/04/2020 05/12/2021 History of fusion of cervical spine 02/04/2020 05/12/2021 Other persistent atrial fibrillation 09/08/2019 11/09/2020 Insomnia 08/21/2016 11/06/2018 Arthritis, midfoot 02/16/2016 3 Basal cell carcinoma 02/23/2015 018 Overview: Dr. Macias, [facility] Dermatology Other seborrheic keratosis 02/17/2015 1 01/07/2018 Overview: Dr. Tee Clemons, Dermatology Neoplasm of uncertain behavior of skin 02/17/2015 11/06/2018 Overview: Behind right mid ear Dr. Tee Clemons, Dermatology Hemangioma of skin and subcutaneous tissue 02/17/2015 02/16/2016 Overview: Dr. Tee Clemons, Dermatology Pain in joint, shoulder region 02/12/2015 02/16/2016 Rotator cuff (capsule) sprain 12/28/2014 12/28/2014 Rotator cuff tear, right 10/21/2012 Chest pain 04/07/2012 02/16/2016 Overview: Unstable angina vs NSTEMI Multiple admissions for NSTEMI and unstable angina Stress test in Sep 2015 negative Zack negative Plan: - Consider LHC if symptoms get worse Hyperlipidemia 04/07/2012 02/19/2017 DM (diabetes mellitus) 04/07/201202/15 SUMMARY 04/06/2012 09/15/2017 Overview: This is a 71 year old male with CAD (s/p PCI with DARCI in PDA and Ramus), DM, obesity and HTN who presents with typical CP over 12hrs. ECG shows mild diffuse concave ST elevation, less notable than his ECG in November 2011 when a LHC showed stable CAD. Enzymes at [place] negative. Repeat enzymes pending. Plan - Cycle ECG/Enzymes-Negativef for AR - Aspirin/Clopidogrel/BB/Statin/ARB -Stress echo negative for ischemia, discharge 04/09 am. -04/09/2012 Stable DC home. Follow up with Dr Jones. DC home on same meds prior to admit except aspirin reduced from 325mg daily to 81mg daily. SUMMARY 11/24/2011 03/28/2012 Overview: This is a 71 year old male with CAD s/p PCI with DARCI in PDA and Ramus, DM, HTN who presents with atypical CP over the past 5 weeks 1/9 Intermittent chest discomfort all weekend despite negative enzymes, cath today SUMMARY 05/30/2011 09/28/2011 Overview: 72 year old man known to have HTN, DM, hypercholesterolaemia, CAD s/p DARCI to the [facility] 08/2009, DARCI to the [place] 10/2010. He was admitted 05/2011 with chest pain but on repeat LHC was found to have patent stents. He was readmitted 03/2012 with chest pain but was negative for coronary ischaemia on stress echocardiogram evaluation and was medically optimised pre discharge He was admitted to an OSH on 08/24/2012 with sudden onset of chest pain at 10 AM while at a , his initial eval was negative for ACS and he has been transferred to [facility] for further evaluation and management. Started heparin,NTG last night for unstable angina. Cardiac cath - 08/27/2012 Successful PCI of Mid LAD with a 2.5 x 16 mm Promus Element DARCI H. pylori infection 05/30/2011 09/28/20 11 Overview: Continue triple therapy Acute gastritis without mention of hemorrhage 01/20/20 11 09/15/2017 Renal insufficiency 11/16/2010 09/28/20 11 Overview: Na Bicarb at cath. 05/30 BUN/Creat 01/12.15 Diabetes mellitus without complication 07/08/2007 02/16/2016 Overview: - Accuchecks and DM diet - Sliding scale insulin. -HBa1c -5.6%. 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/2017 Overview: Continue pravastatin documented as of this encounter (statuses as of 07/02/2023) [facility] History of Past illness Narrative* Problem Noted Date Diagnosed Date Resolved Date Spinal stenosis, lumbar braulio on with neurogenic claudication 03/17/2020 05/12/2021 Neck pain 02/09/2020 05/12/2021 Spondylolisthesis of lumbar region 02/04/2020 06/28/2023 History of fusion of lumbar spine 02/04/2020 05/12/2021 History of fusion of cervical spine 02/04/2020 05/12/2021 Other persistent atrial fibrillation 09/08/2019 11/09/2020 Insomnia 08/21/2016 11/06/2018 Arthritis, midfoot 02/16/2016 3 Basal cell carcinoma 02/23/2015 018 Overview: Dr. Macias, [facility] Dermatology Other seborrheic keratosis 02/17/2015 1 01/07/2018 Overview: Dr. Tee Clemons, Dermatology Neoplasm of uncertain behavior of skin 02/17/2015 11/06/2018 Overview: Behind right mid ear Dr. Tee Clemons, Dermatology Hemangioma of skin and subcutaneous tissue 02/17/2015 02/16/2016 Overview: Dr. Tee Clemons, Dermatology Pain in joint, shoulder region 02/12/2015 02/16/2016 Rotator cuff (capsule) sprain 12/28/2014 12/28/2014 Rotator cuff tear, right 10/21/2012 Chest pain 04/07/2012 02/16/2016 Overview: Unstable angina vs NSTEMI Multiple admissions for NSTEMI and unstable angina Stress test in Sep 2015 negative Zack negative Plan: - Consider LHC if symptoms get worse Hyperlipidemia 04/07/2012 02/19/2017 DM (diabetes mellitus) 04/07/201202/15 SUMMARY 04/06/2012 09/15/2017 Overview: This is a 71 year old male with CAD (s/p PCI with DARCI in PDA and Ramus), DM, obesity and HTN who presents with typical CP over 12hrs. ECG shows mild diffuse concave ST elevation, less notable than his ECG in November 2011 when a LHC showed stable CAD. Enzymes at [facility] negative. Repeat enzymes pending. Plan - Cycle ECG/Enzymes-Negativef for AR - Aspirin/Clopidogrel/BB/Statin/ARB -Stress echo negative for ischemia, discharge 04/09 am. -04/09/2012 Stable DC home. Follow up with Dr Jones. DC home on same meds prior to admit except aspirin reduced from 325mg daily to 81mg daily. SUMMARY 11/24/2011 03/28/2012 Overview: This is a 71 year old male with CAD s/p PCI with DARCI in PDA and Ramus, DM, HTN who presents with atypical CP over the past 5 weeks 11/27 Intermittent chest discomfort all weekend despite negative enzymes, cath today SUMMARY 05/30/2011 09/28/2011 Overview: 72 year old man known to have HTN, DM, hypercholesterolaemia, CAD s/p DARCI to the [place] 08/2009, DARCI to the [place] 10/2010. He was admitted 05/2011 with chest pain but on repeat LHC was found to have patent stents. He was readmitted 03/2012 with chest pain but was negative for coronary ischaemia on stress echocardiogram evaluation and was medically optimised pre discharge He was admitted to an OSH on 08/24/2012 with sudden onset of chest pain at 10 AM while at a , his initial eval was negative for ACS and he has been transferred to [facility] for further evaluation and management. Started heparin,NTG last night for unstable angina. Cardiac cath - 08/27/2012 Successful PCI of Mid LAD with a 2.5 x 16 mm Promus Element DARCI H. pylori infection 05/30/2011 09/28/20 11 Overview: Continue triple therapy Acute gastritis without mention of hemorrhage 01/20/20 11 09/15/2017 Renal insufficiency 11/16/2010 09/28/20 11 Overview: Na Bicarb at cath. 05/30 BUN/Creat 01/12.15 Diabetes mellitus without complication 07/08/2007 02/16/2016 Overview: - Accuchecks and DM diet - Sliding scale insulin. -HBa1c -5.6%. 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 Macias, [facility] Dermatology Other seborrheic keratosis 02/17/2015 1 01/07/2018 Overview: Dr. Tee Clemons, Dermatology Neoplasm of uncertain behavior of skin 02/17/2015 11/06/2018 Overview: Behind right mid ear Dr. Tee Clemons, Dermatology Hemangioma of skin and subcutaneous tissue 02/17/2015 02/16/2016 Overview: Dr. Tee Clemons, Dermatology Pain in joint, shoulder region 02/12/2015 02/16/2016 Rotator cuff (capsule) sprain 12/28/2014 12/28/2014 Rotator cuff tear, right 10/21/2012 Chest pain 04/07/2012 02/16/2016 Overview: Unstable angina vs NSTEMI Multiple admissions for NSTEMI and unstable angina Stress test in Sep 2015 negative Zack negative Plan: - Consider [facility] if symptoms get worse Hyperlipidemia 04/07/2012 02/19/2017 DM (diabetes mellitus) 04/07/201202/15 SUMMARY 04/06/2012 09/15/2017 Overview: This is a 71 year old male with CAD (s/p PCI with DARCI in PDA and Ramus), DM, obesity and HTN who presents with typical CP over 12hrs. ECG shows mild diffuse concave ST elevation, less notable than his ECG in November 2011 when a LHC showed stable CAD. Enzymes at [place] negative. Repeat enzymes pending. Plan - Cycle ECG/Enzymes-Negativef for AR - Aspirin/Clopidogrel/BB/Statin/ARB -Stress echo negative for ischemia, discharge 04/09 am. -04/09/2012 Stable DC home. Follow up with Dr Jones. DC home on same meds prior to admit except aspirin reduced from 325mg daily to 81mg daily. SUMMARY 11/24/2011 03/28/2012 Overview: This is a 71 year old male with CAD s/p PCI with DARCI in PDA and Ramus, DM, HTN who presents with atypical CP over the past 5 weeks 11/27 Intermittent chest discomfort all weekend despite negative enzymes, cath today SUMMARY 05/30/2011 09/28/2011 Overview: 72 year old man known to have HTN, DM, hypercholesterolaemia, CAD s/p DARCI to the [place] 08/2009, DARCI to [place] 10/2010. He was admitted 05/2011 with chest pain but on repeat LHC was found to have patent stents. He was readmitted 03/2012 with chest pain but was negative for coronary ischaemia on stress echocardiogram evaluation and was medically optimised pre discharge He was admitted to an OSH on 08/24/2012 with sudden onset of chest pain at 10 AM while at a , his initial eval was negative for ACS and he has been transferred to [facility] for further evaluation and management. Started heparin,NTG last night for unstable angina. Cardiac cath - 08/27/2012 Successful PCI of Mid LAD with a 2.5 x 16 mm Promus Element DARCI H. pylori infection 05/30/2011 09/28/20 11 Overview: Continue triple therapy Acute gastritis without mention of hemorrhage 01/20/20 11 09/15/2017 Renal insufficiency 11/16/2010 09/28/20 11 Overview: Na Bicarb at cath. 05/30 BUN/Creat 13.15 Diabetes mellitus without complication 07/08/2007 02/16/2016 Overview: - Accuchecks and DM diet - Sliding scale insulin. -HBa1c -5.6%. 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 Macias, [facility] Dermatology Other seborrheic keratosis 02/17/2015 1 01/07/2018 Overview: Dr. Tee Clemons, Dermatology Neoplasm of uncertain behavior of skin 02/17/2015 11/06/2018 Overview: Behind right mid ear Dr. Tee Clemons, Dermatology Hemangioma of skin and subcutaneous tissue 02/17/2015 02/16/2016 Overview: Dr. Tee Clemons, Dermatology Pain in joint, shoulder region 02/12/2015 02/16/2016 Rotator cuff (capsule) sprain 12/28/2014 12/28/2014 Rotator cuff tear, right 10/21/2012 Chest pain 04/07/2012 02/16/2016 Overview: Unstable angina vs NSTEMI Multiple admissions for NSTEMI and unstable angina Stress test in Sep 2015 negative Zack negative Plan: - Consider [facility] if symptoms get worse Hyperlipidemia 04/07/2012 02/19/2017 DM (diabetes mellitus) 04/07/201202/15 SUMMARY 04/06/2012 09/15/2017 Overview: This is a 71 year old male with CAD (s/p PCI with DARCI in PDA and Ramus), DM, obesity and HTN who presents with typical CP over 12hrs. ECG shows mild diffuse concave ST elevation, less notable than his ECG in November 2011 when a LHC showed stable CAD. Enzymes at [place] negative. Repeat enzymes pending. Plan - Cycle ECG/Enzymes-Negativef for AR - Aspirin/Clopidogrel/BB/Statin/ARB -Stress echo negative for ischemia, discharge 04/09 am. -04/09/2012 Stable DC home. Follow up with Dr Jones. DC home on same meds prior to admit except aspirin reduced from 325mg daily to 81mg daily. SUMMARY 11/24/2011 03/28/2012 Overview: This is a 71 year old male with CAD s/p PCI with DARCI in PDA and Ramus, DM, HTN who presents with atypical CP over the past 5 weeks 11/27 Intermittent chest discomfort all weekend despite negative enzymes, cath today SUMMARY 05/30/2011 09/28/2011 Overview: 72 year old man known to have HTN, DM, hypercholesterolaemia, CAD s/p DARCI to the [place] 08/2009, DARCI to [place] 10/2010. He was admitted 05/2011 with chest pain but on repeat LHC was found to have patent stents. He was readmitted 03/2012 with chest pain but was negative for coronary ischaemia on stress echocardiogram evaluation and was medically optimised pre discharge He was admitted to an OSH on 08/24/2012 with sudden onset of chest pain at 10 AM while at a , his initial eval was negative for ACS and he has been transferred to [facility] for further evaluation and management. Started heparin,NTG last night for unstable angina. Cardiac cath - 08/27/2012 Successful PCI of Mid LAD with a 2.5 x 16 mm Promus Element DARCI H. pylori infection 05/30/2011 09/28/20 11 Overview: Continue triple therapy Acute gastritis without mention of hemorrhage 01/20/20 11 09/15/2017 Renal insufficiency 11/16/2010 09/28/20 11 Overview: Na Bicarb at cath. 05/30 BUN/Creat 01/12.15 Diabetes mellitus without complication 07/08/2007 02/16/2016 Overview: - Accuchecks and DM diet - Sliding scale insulin. -HBa1c -5.6%. 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 Macias, [facility] Dermatology Other seborrheic keratosis 02/17/2015 1 01/07/2018 Overview: Dr. Tee Clemons, Dermatology Neoplasm of uncertain behavior of skin 02/17/2015 11/06/2018 Overview: Behind right mid ear Dr. Tee Clemons, Dermatology Hemangioma of skin and subcutaneous tissue 02/17/2015 02/16/2016 Overview: Dr. Tee Clemons, Dermatology Pain in joint, shoulder region 02/12/2015 02/16/2016 Rotator cuff (capsule) sprain 12/28/2014 12/28/2014 Rotator cuff tear, right 10/21/2012 Chest pain 04/07/2012 02/16/2016 Overview: Unstable angina vs NSTEMI Multiple admissions for NSTEMI and unstable angina Stress test in Sep 2015 negative Zack negative Plan: - Consider LHC if symptoms get worse Hyperlipidemia 04/07/2012 02/19/2017 DM (diabetes mellitus) 04/07/201202/15 SUMMARY 04/06/2012 09/15/2017 Overview: This is a 71 year old male with CAD (s/p PCI with DARCI in PDA and Ramus), DM, obesity and HTN who presents with typical CP over 12hrs. ECG shows mild diffuse concave ST elevation, less notable than his ECG in November 2011 when a LHC showed stable CAD. Enzymes at [place] negative. Repeat enzymes pending. Plan - Cycle ECG/Enzymes-Negativef for AR - Aspirin/Clopidogrel/BB/Statin/ARB -Stress echo negative for ischemia, discharge 04/09 am. -04/09/2012 Stable DC home. Follow up with Dr Jones. DC home on same meds prior to admit except aspirin reduced from 325mg daily to 81mg daily. SUMMARY 11/24/2011 03/28/2012 Overview: This is a 71 year old male with CAD s/p PCI with DARCI in PDA and Ramus, DM, HTN who presents with atypical CP over the past 5 weeks 1/9 Intermittent chest discomfort all weekend despite negative enzymes, cath today SUMMARY 05/30/2011 09/28/2011 Overview: 72 year old man known to have HTN, DM, hypercholesterolaemia, CAD s/p DARCI to the [facility] 08/2009, DARCI to the [place] 10/2010. He was admitted 05/2011 with chest pain but on repeat LHC was found to have patent stents. He was readmitted 03/2012 with chest pain but was negative for coronary ischaemia on stress echocardiogram evaluation and was medically optimised pre discharge He was admitted to an OSH on 08/24/2012 with sudden onset of chest pain at 10 AM while at a , his initial eval was negative for ACS and he has been transferred to [facility] for further evaluation and management. Started heparin,NTG last night for unstable angina. Cardiac cath - 08/27/2012 Successful PCI of Mid LAD with a 2.5 x 16 mm Promus Element DARCI H. pylori infection 05/30/2011 09/28/20 11 Overview: Continue triple therapy Acute gastritis without mention of hemorrhage 01/20/20 11 09/15/2017 Renal insufficiency 11/16/2010 09/28/20 11 Overview: Na Bicarb at cath. 05/30 BUN/Creat 01/12.15 Diabetes mellitus without complication 07/08/2007 02/16/2016 Overview: - Accuchecks and DM diet - Sliding scale insulin. -HBa1c -5.6%. 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 Macias, [facility] Dermatology Other seborrheic keratosis 02/17/2015 1 01/07/2018 Overview: Dr. Tee Clemons, Dermatology Neoplasm of uncertain behavior of skin 02/17/2015 11/06/2018 Overview: Behind right mid ear Dr. Tee Clemons, Dermatology Hemangioma of skin and subcutaneous tissue 02/17/2015 02/16/2016 Overview: Dr. Tee Clemons, Dermatology Pain in joint, shoulder region 02/12/2015 02/16/2016 Rotator cuff (capsule) sprain 12/28/2014 12/28/2014 Rotator cuff tear, right 10/21/2012 Chest pain 04/07/2012 02/16/2016 Overview: Unstable angina vs NSTEMI Multiple admissions for NSTEMI and unstable angina Stress test in Sep 2015 negative Zack negative Plan: - Consider LHC if symptoms get worse Hyperlipidemia 04/07/2012 02/19/2017 DM (diabetes mellitus) 04/07/201202/15 SUMMARY 04/06/2012 09/15/2017 Overview: This is a 71 year old male with CAD (s/p PCI with DARCI in PDA and Ramus), DM, obesity and HTN who presents with typical CP over 12hrs. ECG shows mild diffuse concave ST elevation, less notable than his ECG in November 2011 when a LHC showed stable CAD. Enzymes at [facility] negative. Repeat enzymes pending. Plan - Cycle ECG/Enzymes-Negativef for AR - Aspirin/Clopidogrel/BB/Statin/ARB -Stress echo negative for ischemia, discharge 04/09 am. -04/09/2012 Stable DC home. Follow up with Dr Jones. DC home on same meds prior to admit except aspirin reduced from 325mg daily to 81mg daily. SUMMARY 11/24/2011 03/28/2012 Overview: This is a 71 year old male with CAD s/p PCI with DARCI in PDA and Ramus, DM, HTN who presents with atypical CP over the past 5 weeks 1/9 Intermittent chest discomfort all weekend despite negative enzymes, cath today SUMMARY 05/30/2011 09/28/2011 Overview: 72 year old man known to have HTN, DM, hypercholesterolaemia, CAD s/p DARCI to the [facility] 08/2009, DARCI to the [place] 10/2010. He was admitted 05/2011 with chest pain but on repeat LHC was found to have patent stents. He was readmitted 03/2012 with chest pain but was negative for coronary ischaemia on stress echocardiogram evaluation and was medically optimised pre discharge He was admitted to an OSH on 08/24/2012 with sudden onset of chest pain at 10 AM while at a , his initial eval was negative for ACS and he has been transferred to [facility] for further evaluation and management. Started heparin,NTG last night for unstable angina. Cardiac cath - 08/27/2012 Successful PCI of Mid LAD with a 2.5 x 16 mm Promus Element DARCI H. pylori infection 05/30/2011 09/28/20 11 Overview: Continue triple therapy Acute gastritis without mention of hemorrhage 01/20/20 11 09/15/2017 Renal insufficiency 11/16/2010 09/28/20 11 Overview: Na Bicarb at cath. 05/30 BUN/Creat 01/12.15 Diabetes mellitus without complication 07/08/2007 02/16/2016 Overview: - Accuchecks and DM diet - Sliding scale insulin. -HBa1c -5.6%. 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 Macias, [facility] Dermatology Other seborrheic keratosis 02/17/2015 1 01/07/2018 Overview: Dr. Tee Clemons, Dermatology Neoplasm of uncertain behavior of skin 02/17/2015 11/06/2018 Overview: Behind right mid ear Dr. Tee Clemons, Dermatology Hemangioma of skin and subcutaneous tissue 02/17/2015 02/16/2016 Overview: Dr. Tee Clemons, Dermatology Pain in joint, shoulder region 02/12/2015 02/16/2016 Rotator cuff (capsule) sprain 12/28/2014 12/28/2014 Rotator cuff tear, right 10/21/2012 Chest pain 04/07/2012 02/16/2016 Overview: Unstable angina vs NSTEMI Multiple admissions for NSTEMI and unstable angina Stress test in Sep 2015 negative Zack negative Plan: - Consider LHC if symptoms get worse Hyperlipidemia 04/07/2012 02/19/2017 DM (diabetes mellitus) 04/07/201202/15 SUMMARY 04/06/2012 09/15/2017 Overview: This is a 71 year old male with CAD (s/p PCI with DARCI in PDA and Ramus), DM, obesity and HTN who presents with typical CP over 12hrs. ECG shows mild diffuse concave ST elevation, less notable than his ECG in November 2011 when a LHC showed stable CAD. Enzymes at [place] negative. Repeat enzymes pending. Plan - Cycle ECG/Enzymes-Negativef for AR - Aspirin/Clopidogrel/BB/Statin/ARB -Stress echo negative for ischemia, discharge 04/09 am. -04/09/2012 Stable DC home. Follow up with Dr Jones. DC home on same meds prior to admit except aspirin reduced from 325mg daily to 81mg daily. SUMMARY 11/24/2011 03/28/2012 Overview: This is a 71 year old male with CAD s/p PCI with DARCI in PDA and Ramus, DM, HTN who presents with atypical CP over the past 5 weeks 11/27 Intermittent chest discomfort all weekend despite negative enzymes, cath today SUMMARY 05/30/2011 09/28/2011 Overview: 72 year old man known to have HTN, DM, hypercholesterolaemia, CAD s/p DARCI to the [facility] 08/2009, DARCI to the [place] 10/2010. He was admitted 05/2011 with chest pain but on repeat LHC was found to have patent stents. He was readmitted 03/2012 with chest pain but was negative for coronary ischaemia on stress echocardiogram evaluation and was medically optimised pre discharge He was admitted to an OSH on 08/24/2012 with sudden onset of chest pain at 10 AM while at a , his initial eval was negative for ACS and he has been transferred to [facility] for further evaluation and management. Started heparin,NTG last night for unstable angina. Cardiac cath - 08/27/2012 Successful PCI of Mid LAD with a 2.5 x 16 mm Promus Element DARCI H. pylori infection 05/30/2011 09/28/20 11 Overview: Continue triple therapy Acute gastritis without mention of hemorrhage 01/20/20 11 09/15/2017 Renal insufficiency 11/16/2010 09/28/20 11 Overview: Na [place] at cath. 05/30 BUN/Creat 01/12.15 Diabetes mellitus without complication 07/08/2007 02/16/2016 Overview: - Accuchecks and DM diet - Sliding scale insulin. -HBa1c -5.6%. 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 Macias, [facility] Dermatology Other seborrheic keratosis 02/17/2015 1 01/07/2018 Overview: Dr. Tee Clemons, Dermatology Neoplasm of uncertain behavior of skin 02/17/2015 11/06/2018 Overview: Behind right mid ear Dr. Tee Clemons, Dermatology Hemangioma of skin and subcutaneous tissue 02/17/2015 02/16/2016 Overview: Dr. Tee Clemons, Dermatology Pain in joint, shoulder region 02/12/2015 02/16/2016 Rotator cuff (capsule) sprain 12/28/2014 12/28/2014 Rotator cuff tear, right 10/21/2012 Chest pain 04/07/2012 02/16/2016 Overview: Unstable angina vs NSTEMI Multiple admissions for NSTEMI and unstable angina Stress test in Sep 2015 negative Zack negative Plan: - Consider LHC if symptoms get worse Hyperlipidemia 04/07/2012 02/19/2017 DM (diabetes mellitus) 04/07/201202/15 SUMMARY 04/06/2012 09/15/2017 Overview: This is a 71 year old male with CAD (s/p PCI with DARCI in PDA and Ramus), DM, obesity and HTN who presents with typical CP over 12hrs. ECG shows mild diffuse concave ST elevation, less notable than his ECG in November 2011 when a LHC showed stable CAD. Enzymes at [place] negative. Repeat enzymes pending. Plan - Cycle ECG/Enzymes-Negativef for AR - Aspirin/Clopidogrel/BB/Statin/ARB -Stress echo negative for ischemia, discharge 04/09 am. -04/09/2012 Stable DC home. Follow up with Dr Jones. DC home on same meds prior to admit except aspirin reduced from 325mg daily to 81mg daily. SUMMARY 11/24/2011 03/28/2012 Overview: This is a 71 year old male with CAD s/p PCI with DARCI in PDA and Ramus, DM, HTN who presents with atypical CP over the past 5 weeks 11/27 Intermittent chest discomfort all weekend despite negative enzymes, cath today SUMMARY 05/30/2011 09/28/2011 Overview: 72 year old man known to have HTN, DM, hypercholesterolaemia, CAD s/p DARCI to the [facility] 08/2009, [place]CI to the [place] 10/2010. He was admitted 05/2011 with chest pain but on repeat LHC was found to have patent stents. He was readmitted 03/2012 with chest pain but was negative for coronary ischaemia on stress echocardiogram evaluation and was medically optimised pre discharge He was admitted to an OSH on 08/24/2012 with sudden onset of chest pain at 10 AM while at a , his initial eval was negative for ACS and he has been transferred to [facility] for further evaluation and management. Started heparin,NTG last night for unstable angina. Cardiac cath - 08/27/2012 Successful PCI of Mid LAD with a 2.5 x 16 mm Promus Element DARCI H. pylori infection 05/30/2011 09/28/20 11 Overview: Continue triple therapy Acute gastritis without mention of hemorrhage 01/20/20 11 09/15/2017 Renal insufficiency 11/16/2010 09/28/20 11 Overview: Na Bicarb at cath. 05/30 BUN/Creat 01/12.15 Diabetes mellitus without complication 07/08/2007 02/16/2016 Overview: - Accuchecks and DM diet - Sliding scale insulin. -HBa1c -5.6%. 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/2017 Overview: Continue pravastatin documented as of this encounter (statuses as of 10/12/2023) [facility] ETHAN [facility] CP[facility]- Primary Obstructive sleep apnea (adult) (pediatric) Parasomnia, unspecified type Cervicalgia Spinal stenosis of cervical region Spinal stenosis in cervical region History of fusion of cervical spine Arthrodesis [facility] Diagnosis 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 Onychomycosis Dermatophytosis of nail Pain in toe of right foot Pain in limb Pain in toe of left foot Pain in limb Hyperkeratosis 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 [facility] Diagnosis Spinal stenosis of cervical region Spinal stenosis in cervical region [facility] Diagnosis 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) Type II or unspecified type diabetes mellitus with renal manifestations, not stated as uncontrolled [facility] Diagnosis 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) Type II or unspecified type diabetes mellitus with neurological manifestations, not stated as uncontrolled [facility] Diagnosis Coronary artery disease involving [place] coronary artery of [place] heart without angina pectoris- Primary Paroxysmal atrial fibrillation (HCC) Atrial fibrillation Visit for monitoring Tikosyn therapy Encounter for therapeutic drug monitoring Current use of retirement anticoagulation Long-term (current) use of anticoagulants [facility]* Diagnosis Actinic keratosis- Primary History of nonmelanoma skin cancer Personal history of other malignant neoplasm of skin Seborrheic keratosis Other seborrheic keratosis [facility] noteNo assessment information availableWThe [facility] Work Phone: Evaluation note* Diagnosis 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 Onychomycosis Dermatophytosis of nail Pain in toe of right foot Pain in limb Pain in toe of left foot Pain in limb Hyperkeratosis 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 [facility] Diagnosis Encounter to discuss test results [Z71.2 (ICD-10-CM)]- Primary Other specified counseling [facility]* Diagnosis Vertigo- Primary Dizziness and giddiness ETHAN on CPAP Obstructive sleep apnea (adult) (pediatric) Parasomnia, unspecified type Cervicalgia History of fusion of cervical spine Arthrodesis status [facility] Vertebrobasilar artery syndrome- Primary [facility] Diagnosis Cervical spondylosis- Primary Cervical spondylosis without myelopathy Cervicalgia History of fusion of cervical spine Arthrodesis status [facility] Diagnosis Cervicalgia- Primary History of fusion of cervical spine Arthrodesis status Cervical spondylosis Cervical spondylosis without myelopathy [facility] Diagnosis Other persistent atrial fibrillation, status post ablation, 2016 Cervicalgia History of fusion of cervical spine Arthrodesis status Cervical spondylosis Cervical spondylosis without myelopathy [facility] Diagnosis Essential hypertension Unspecified essential hypertension [facility] Diagnosis Paroxysmal atrial fibrillation (HCC) Atrial fibrillation Cervical spondylosis Cervical spondylosis without myelopathy Cervical facet syndrome Other symptoms referable to back History of fusion of cervical spine Arthrodesis status [facility] Diagnosis Cervicalgia- Primary Cervical spondylosis Cervical spondylosis without myelopathy Cervical facet syndrome Other symptoms referable to back History of fusion of cervical spine Arthrodesis status Cervical spondylosis Cervical spondylosis without myelopathy Cervical facet syndrome Other symptoms referable to back History of fusion of cervical spine Arthrodesis status [facility] Diagnosis Gastroesophageal reflux disease without esophagitis Esophageal reflux Paroxysmal atrial fibrillation (HCC) Atrial fibrillation Cervical spondylosis Cervical spondylosis without myelopathy Cervical facet syndrome Other symptoms referable to back History of fusion of cervical spine Arthrodesis status [facility] Diagnosis Hypertensive 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 4 chronic kidney disease, or unspecified chronic kidney disease- Primary 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) Type II or unspecified type diabetes mellitus with neurological manifestations, not stated as uncontrolled Essential hypertension Unspecified essential hypertension Paroxysmal atrial fibrillation (HCC) Atrial fibrillation Need for COVID-19 vaccine Screening for AAA (abdominal aortic aneurysm) Screening for other and unspecified cardiovascular conditions [facility] Diagnosis 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 [facility] Diagnosis ETHAN on CPAP- Primary Obstructive sleep apnea (adult) (pediatric) Parasomnia, unspecified type Cervicalgia Vertigo Dizziness and giddiness Other insomnia Stable angina (HCC) Other and unspecified angina pectoris [facility] Diagnosis Cervicalgia- Primary History of fusion of cervical spine Arthrodesis status Cervical myofascial pain syndrome Mylagia and myositis, unspecified [facility]* Diagnosis Cervicalgia- Primary [facility]* Diagnosis Skin exam, screening for cancer- Primary Screening for malignant neoplasm of the skin Hx of nonmelanoma skin cancer Personal history of other malignant neoplasm of skin Neoplasm of skin Neoplasm of unspecified nature of bone, soft tissue, and skin Actinic keratosis Lentigines Other dyschromia Rios angioma Nevus, non-neoplastic Seborrheic keratosis Other seborrheic keratosis [facility]* Diagnosis Basal cell carcinoma (BCC) of left cheek [facility]* Diagnosis 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 Onychomycosis Dermatophytosis of nail Pain in toe of right foot Pain in limb Pain in toe of left foot Pain in limb Hammer toes of both feet Hyperkeratosis Acquired keratoderma [facility] Diagnosis 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) Type II or unspecified type diabetes mellitus with neurological manifestations, not stated as uncontrolled Paroxysmal atrial fibrillation (HCC) Atrial fibrillation Right lower quadrant pain Abdominal pain, right lower quadrant Adjustment insomnia Transient disorder of initiating or maintaining sleep Acute diastolic heart failure (HCC) Acute diastolic heart failure Type 2 diabetes mellitus with stage 3a chronic kidney disease, without long-term current use of insulin (HCC) [facility]* Diagnosis Adjustment insomnia- Primary Transient disorder of initiating or maintaining sleep [facility]* Diagnosis Medicare annual wellness visit, subsequent- Primary Routine general medical examination at a health care facility Encounter for immunization Need for other specified prophylactic vaccination against single bacterial disease [facility] Diagnosis ETHAN on CPAP- Primary Obstructive sleep apnea (adult) (pediatric) Parasomnia, unspecified type Cervicalgia Lightheadedness Dizziness and giddiness [facility]* Diagnosis Paroxysmal atrial fibrillation (HCC)- Primary Atrial fibrillation Encounter for monitoring dofetilide therapy Encounter for therapeutic drug monitoring Essential hypertension Unspecified essential hypertension Acute diastolic heart failure (HCC) Acute diastolic heart failure [facility]* Diagnosis Screening for AAA (abdominal aortic aneurysm) Screening for other and unspecified cardiovascular conditions [facility]* Diagnosis Other persistent atrial fibrillation, status post ablation, 2016 [facility]* Diagnosis URI, acute- Primary Acute upper respiratory infections of unspecified site Sore throat Acute pharyngitis Urinary frequency Gross hematuria Pre-syncope Syncope and collapse [facility] Diagnosis 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 Onychomycosis Dermatophytosis of nail Pain in toe of right foot Pain in limb Pain in toe of left foot Pain in limb Hammer toes of both feet Hyperkeratosis Acquired keratoderma [facility] Diagnosis Paroxysmal atrial fibrillation (HCC) Atrial fibrillation Essential hypertension Unspecified essential hypertension [facility]* Diagnosis Obstructive sleep apnea (adult) (pediatric)- Primary ETHAN on CPAP Obstructive sleep apnea (adult) (pediatric) Parasomnia, unspecified type Cervicalgia Lumbar pain Lumbago Lightheadedness Dizziness and giddiness [facility]* Diagnosis Paroxysmal atrial fibrillation (HCC)- Primary Atrial fibrillation Encounter for monitoring dofetilide therapy Encounter for therapeutic drug monitoring [facility] Diagnosis Open wound of toe, initial encounter- Primary [facility] Diagnosis Low back pain with sciatica, sciatica laterality unspecified, unspecified back pain laterality, unspecified chronicity- Primary [facility] Diagnosis Low back pain with sciatica, sciatica laterality unspecified, unspecified back pain laterality, unspecified chronicity [facility] Diagnosis Low back pain with sciatica, sciatica laterality unspecified, unspecified back pain laterality, unspecified chronicity- Primary Lumbar radiculopathy Thoracic or lumbosacral neuritis or radiculitis, unspecified [facility] Diagnosis Low back pain with sciatica, sciatica laterality unspecified, unspecified back pain laterality, unspecified chronicity- Primary Lumbar radiculopathy Thoracic or lumbosacral neuritis or radiculitis, unspecified Low back pain with sciatica, sciatica laterality unspecified, unspecified back pain laterality, unspecified chronicity Lumbar radiculopathy Thoracic or lumbosacral neuritis or radiculitis, unspecified [facility]* Diagnosis Basal cell carcinoma (BCC) of left jain region [facility]* Diagnosis 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 Paroxysmal atrial fibrillation (HCC) Atrial fibrillation Hypertensive 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 4 chronic kidney disease, or unspecified chronic kidney disease Hypercholesteremia Pure hypercholesterolemia [facility]* Diagnosis Lumbar radiculopathy- Primary Thoracic or lumbosacral neuritis or radiculitis, unspecified Lumbar spondylosis Lumbosacral spondylosis without myelopathy [facility]* Diagnosis Medicare annual wellness visit, subsequent- Primary Routine general medical examination at a health care facility 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) Type II or unspecified type diabetes mellitus with neurological manifestations, not stated as uncontrolled Hypertensive 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 4 chronic kidney disease, or unspecified chronic kidney disease ETHAN on CPAP Obstructive sleep apnea (adult) (pediatric) Screening for depression Encounter for screening examination for other mental health and behavioral disorders Encounter for immunization Need for other specified prophylactic vaccination against single bacterial disease [facility] Diagnosis Encounter for monitoring dofetilide therapy- Primary Encounter for therapeutic drug monitoring Paroxysmal atrial fibrillation (HCC) Atrial fibrillation On continuous oral anticoagulation Long-term (current) use of anticoagulants [facility] Diagnosis ETHAN on CPAP- Primary Obstructive sleep apnea (adult) (pediatric) Parasomnia, unspecified type Class 1 obesity with body mass index (BMI) of 32.0 to 32.9 in adult, unspecified obesity type, unspecified whether serious comorbidity present [facility] Diagnosis Radiculopathy of lumbar region- Primary Thoracic or lumbosacral neuritis or radiculitis, unspecified Lumbar radiculopathy Thoracic or lumbosacral neuritis or radiculitis, unspecified Lumbar spondylosis Lumbosacral spondylosis without myelopathy [facility]* Diagnosis Radiculopathy of lumbar region Thoracic or lumbosacral neuritis or radiculitis, unspecified [facility]* Diagnosis Skin exam, screening for cancer- Primary Screening for malignant neoplasm of the skin Hx of nonmelanoma skin cancer Personal history of other malignant neoplasm of skin Neoplasm of uncertain behavior of skin Actinic keratosis Rios angioma Nevus, non-neoplastic Lentigines Other dyschromia Multiple benign nevi Benign neoplasm of skin, site unspecified Seborrheic keratosis Other seborrheic keratosis [facility]* Diagnosis Spondylolisthesis of lumbar region- Primary Acquired spondylolisthesis Spinal stenosis, lumbar region with neurogenic claudication [facility]* Diagnosis Onychomycosis- Primary Dermatophytosis of nail Pain in toe of right foot Pain in limb Pain in toe of left foot Pain in limb Other diabetic neurological complication associated with type 2 diabetes mellitus (HCC) [facility]* Diagnosis Onychomycosis- Primary Dermatophytosis of nail Pain in toe of right foot Pain in limb Pain in toe of left foot Pain in limb 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 [facility]* Diagnosis Sebaceous adenoma of face- Primary Benign neoplasm of skin of other and unspecified parts of face [facility]* Diagnosis 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 Postlaminectomy syndrome, lumbar region Chronic midline thoracic back pain [facility]* Diagnosis Other persistent atrial fibrillation, status post ablation, 2016 [facility] Diagnosis Failed back syndrome of lumbar spine Postlaminectomy syndrome, lumbar region Chronic midline thoracic back pain [facility]* Diagnosis Encounter for immunization Need for other specified prophylactic vaccination against single bacterial disease [facility] Diagnosis Paroxysmal atrial fibrillation (HCC) Atrial fibrillation Gastroesophageal reflux disease without esophagitis Esophageal reflux [facility]* Diagnosis 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 Postlaminectomy syndrome, lumbar region [facility]* Diagnosis Epididymitis- Primary Orchitis and epididymitis, unspecified [facility] Diagnosis Essential hypertension Unspecified essential hypertension [facility]* Diagnosis Onychomycosis- Primary Dermatophytosis of nail Pain in toe of right foot Pain in limb Pain in toe of left foot Pain in limb Other diabetic neurological complication associated with type 2 diabetes mellitus ([facility]) Hyperkeratosis 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 [facility] Diagnosis 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 Postlaminectomy syndrome, lumbar region Lumbar radiculopathy Thoracic or lumbosacral neuritis or radiculitis, unspecified Lumbar spondylosis Lumbosacral spondylosis without myelopathy 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 Postlaminectomy syndrome, lumbar region Lumbar radiculopathy Thoracic or lumbosacral neuritis or radiculitis, unspecified Lumbar spondylosis Lumbosacral spondylosis without myelopathy [facility]* Diagnosis Nocturnal leg cramps- Primary Sleep related leg cramps Essential hypertension Unspecified essential hypertension Paroxysmal atrial fibrillation (HCC) Atrial fibrillation 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) Type II or unspecified type diabetes mellitus with neurological manifestations, not stated as uncontrolled Kidney insufficiency Unspecified disorder of kidney and ureter 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 Postlaminectomy syndrome, lumbar region Lumbar radiculopathy Thoracic or lumbosacral neuritis or radiculitis, unspecified Lumbar spondylosis Lumbosacral spondylosis without myelopathy [facility] Diagnosis Pre-op evaluation- Primary Preoperative examination, unspecified Coronary artery disease of [place] artery of [place] heart with stable angina pectoris (HCC) Hypercholesteremia Pure hypercholesterolemia Paroxysmal atrial fibrillation (HCC) Atrial fibrillation ETHAN on CPAP Obstructive sleep apnea (adult) (pediatric) 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 Assessment: . 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) Assessment: diet controlled , PCP following Hemoglobin A1C (%) Date Value 11/17/2021 6.1 Hemoglobin A1C (POCT) (%) Date Value 06/20/2024 5.8 * Assessment & Plan Note - William Vann PA-C - 12/24/2024 9:03 AM EST Associated Problem(s): ETHAN on CPAP Assessment: uses CPAP nightly * Assessment & Plan Note - William Vann PA-C - 12/24/2024 9:03 AM EST Associated Problem(s): Paroxysmal atrial fibrillation (HCC) Assessment: taking tikosyn, metoprolol and Eliquis, history of ablation 03/2017 Follows with Cardiology in [place], and EP at , last OV with KRISTY Raymond 07/24/2024 * Assessment & Plan Note - William Vann PA-C - 12/24/2024 9:03 AM EST Associated Problem(s): Hypercholesteremia Assessment: taking statin, PCP following * Assessment & Plan Note - William Vann PA-C - 12/24/2024 9:02 AM EST Associated Problem(s): Coronary artery disease of [place] artery of [place] heart with stable angina pectoris (HCC) Assessment: Follows with Cardiology in [place], and EP at , last OV with Diane Reed PA-C 07/24/2024 History of AR and stents. Denies any recent chest pain or SOB. No Nitro in months. 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 Postlaminectomy syndrome, lumbar region Lumbar radiculopathy Thoracic or lumbosacral neuritis or radiculitis, unspecified Lumbar spondylosis Lumbosacral spondylosis without myelopathy [facility] Diagnosis Pre-op evaluation- Primary Preoperative examination, unspecified Coronary artery disease of [place] artery of [place] heart with stable angina pectoris (HCC) Hypercholesteremia Pure hypercholesterolemia Paroxysmal atrial fibrillation (HCC) Atrial fibrillation ETHAN on CPAP Obstructive sleep apnea (adult) (pediatric) 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 Postsurgical percutaneous transluminal coronary angioplasty status Chronic midline thoracic back pain- Primary Lumbar radiculopathy Thoracic or lumbosacral neuritis or radiculitis, unspecified Failed back syndrome of lumbar spine Postlaminectomy syndrome, lumbar region [facility] Diagnosis Pre-op evaluation- Primary Preoperative examination, unspecified Coronary artery disease of [place] artery of [place] heart with stable angina pectoris (HCC) Hypercholesteremia Pure hypercholesterolemia Paroxysmal atrial fibrillation (HCC) Atrial fibrillation ETHAN on CPAP Obstructive sleep apnea (adult) (pediatric) 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 Postsurgical percutaneous transluminal coronary angioplasty status Chronic midline thoracic back pain [facility] Postlaminectomy syndrome of lumbar region- Primary Postlaminectomy syndrome, lumbar region documented in this encounter [facility] Work Phone: Evaluation note* Diagnosis Pre-op evaluation- Primary Preoperative examination, unspecified Coronary artery disease of [place] artery of [place] heart with stable angina pectoris Hypercholesteremia Pure hypercholesterolemia Paroxysmal atrial fibrillation (HCC) Atrial fibrillation ETHAN on CPAP Obstructive sleep apnea (adult) (pediatric) 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 Postsurgical percutaneous transluminal coronary angioplasty status Skin exam, screening for cancer- Primary Screening for malignant neoplasm of the skin Hx of nonmelanoma skin cancer Personal history of other malignant neoplasm of skin Neoplasm of skin Neoplasm of unspecified nature of bone, soft tissue, and skin Multiple benign nevi Benign neoplasm of skin, site unspecified Lentigines Other dyschromia Rios angioma Nevus, non-neoplastic Seborrheic keratosis Other seborrheic keratosis [facility] Diagnosis Pre-op evaluation- Primary Preoperative examination, unspecified Coronary artery disease of [place] artery of [place] heart with stable angina pectoris Hypercholesteremia Pure hypercholesterolemia Paroxysmal atrial fibrillation (HCC) Atrial fibrillation ETHAN on CPAP Obstructive sleep apnea (adult) (pediatric) 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 Postsurgical percutaneous transluminal coronary angioplasty status Coronary artery disease of [place] artery of [place] heart with stable angina pectoris- Primary Paroxysmal atrial fibrillation (HCC) Atrial fibrillation Hypercholesteremia Pure hypercholesterolemia Primary hypertension Unspecified essential hypertension Pre-operative cardiovascular examination [facility] Diagnosis Postlaminectomy syndrome of lumbar region- Primary Postlaminectomy syndrome, lumbar region S/P insertion of spinal cord stimulator documented in this encounter [facility] Work Phone: Evaluation note* Diagnosis Pre-op evaluation- Primary Preoperative examination, unspecified Coronary artery disease of [place] artery of [place] heart with stable angina pectoris Hypercholesteremia Pure hypercholesterolemia Paroxysmal atrial fibrillation (HCC) Atrial fibrillation ETHAN on CPAP Obstructive sleep apnea (adult) (pediatric) 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 Lumbar radiculopathy Thoracic or lumbosacral neuritis or radiculitis, unspecified Status post insertion of spinal cord stimulator [facility] Diagnosis Pre-op evaluation- Primary Preoperative examination, unspecified Coronary artery disease of [place] artery of [place] heart with stable angina pectoris Hypercholesteremia Pure hypercholesterolemia Paroxysmal atrial fibrillation (HCC) Atrial fibrillation ETHAN on CPAP Obstructive sleep apnea (adult) (pediatric) 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 Lumbar radiculopathy Thoracic or lumbosacral neuritis or radiculitis, unspecified [facility] Diagnosis Pre-op evaluation- Primary Preoperative examination, unspecified Coronary artery disease of [place] artery of [place] heart with stable angina pectoris Hypercholesteremia Pure hypercholesterolemia Paroxysmal atrial fibrillation (HCC) Atrial fibrillation ETHAN on CPAP Obstructive sleep apnea (adult) (pediatric) 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 Postsurgical percutaneous transluminal coronary angioplasty status Onychomycosis- Primary Dermatophytosis of nail Pain in toe of right foot Pain in limb Pain in toe of left foot Pain in limb 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 Tinea pedis of left foot Dermatophytosis of foot [facility] Diagnosis Pre-op evaluation- Primary Preoperative examination, unspecified Coronary artery disease of [place] artery of [place] heart with stable angina pectoris Hypercholesteremia Pure hypercholesterolemia Paroxysmal atrial fibrillation (HCC) Atrial fibrillation ETHAN on CPAP Obstructive sleep apnea (adult) (pediatric) 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) Type II or unspecified type diabetes mellitus with neurological manifestations, not stated as uncontrolled Coronary artery disease of [place] artery of [place] heart with stable angina pectoris Primary hypertension Unspecified essential hypertension Failed back syndrome Other unspecified back disorder Weakness of both legs Other musculoskeletal symptoms referable to limbs Wheezing [facility] Diagnosis Pre-op evaluation- Primary Preoperative examination, unspecified Coronary artery disease of [place] artery of [place] heart with stable angina pectoris Hypercholesteremia Pure hypercholesterolemia Paroxysmal atrial fibrillation (HCC) Atrial fibrillation ETHAN on CPAP Obstructive sleep apnea (adult) (pediatric) 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 Postsurgical percutaneous transluminal coronary angioplasty status ETHAN on CPAP- Primary Obstructive sleep apnea (adult) (pediatric) Class 1 obesity with body mass index (BMI) of 31.0 to 31.9 in adult, unspecified obesity type, unspecified whether serious comorbidity present Parasomnia, unspecified type documented in this encounter [facility] Discharge instructions Additional Instructions The exact cause of your discomfort today is not clear however your work-up was largely normal. Your orthostatic vital signs were normal, your EKG was normal, your high-sensitivity troponin was normal x2, and your CT did not show any acute process in your brain. No acute electrolyte abnormalities or signs of anemia. You have been referred to an ENT in case this is vertigo causing your dizziness. Please follow-up with your journalism teacher as well as your primary care doctor. You are given a GI cocktail in the ER which did seem to improve some of the burning in your chest. Try to adhere to a low acid diet to see if that helps with your symptoms.[facility] Work Phone: Reason for referral (narrative)* Outpatient Procedure (Routine) - Pending Review Specialty Diagnoses / Procedures Referred By Greg mcgraw Referred To [facility] Diagnoses Coronary artery disease involving sp[place] coronary artery of [place] heart without angina pectoris Procedures ECG COMPLETE ECG ROUTINE ECG W/LEAST 12 LDS W/I&R Faby Georges APRN.CNP [address] [place] [address] [facility] [address] [place] [address] Referral ID Status Reason Start Date Expiration Date Visits Requested Visits Authorized [id number] Pending Review Auto-Generat ed Referral 06/20/2022 06/20/2023 1 1 [facility] for referral (narrative)* Diagnostic Procedure Only (Routine) - Authorized Specialty Diagnoses / Procedures Referred By Greg mcgraw Referred To Contact US IMAGING Diagnoses Screening for AAA (abdominal aortic aneurysm) Procedures US SCREENING FOR AAA (2017) US ABDOMINAL AORTA REAL TIME SCREEN STUDY AAA Galindo Yuan MD [address] [place] [address] [facility] Referral ID Status Reason Start Date Expiration Date Visits Requested Visits Authorized [id number] Authorized Auto-Generat ed Referral 12/20/2022 01/19/2024 1 1 [facility] for referral (narrative)* Outpatient Procedure (Routine) - Pending Review Specialty Diagnoses / Procedures Referred By Contac t Referred To Contact [facility] Diagnoses Paroxysmal atrial fibrillation (HCC) Encounter for monitoring dofetilide therapy Procedures ECG COMPLETE ECG ROUTINE ECG W/LEAST 12 LDS W/I&R Sakshi Sanz [place] [id number] [place] [address] [address] Referral ID Status Reason Start Date Expiration Date Visits Requested Visits Authorized [id number] Pending Review Auto-Generat ed Referral 07/19/2023 07/18/2024 4 4 * Outpatient Procedure (Routine) - Pending Review Specialty Diagnoses / Procedures Referred By Contac t Referred To [facility] Diagnoses Paroxysmal atrial fibrillation (HCC) Procedures ECHO ECHO TTHRC R-T 2D W/WOM-MODE COMPL SPEC&COLR D Sakshi Sanz [place] [id number] [place] [address] [address] Referral ID Status Reason Start Date Expiration Date Visits Requested Visits Authorized [id number] Pending Review Auto-Generat ed Referral 07/19/2023 07/18/2024 1 1 * Outpatient Procedure (Routine) - Pending Review Specialty Diagnoses / Procedures Referred By Contac t Referred To [facility] Diagnoses Paroxysmal atrial fibrillation (HCC) Procedures ECG COMPLETE ECG ROUTINE ECG W/LEAST 12 LDS W/I&R Sakshi Sanz MD [id number] [place] [address] [facility] [place] [address] Referral ID Status Reason Start Date Expiration Date Visits Requested Visits Authorized [id number] Pending Review Auto-Generat ed Referral 07/19/2023 07/18/2024 1 1 [facility] for referral (narrative)* Diagnostic Procedure Only (Routine) - Closed Specialty Diagnoses / Procedures Referred By Contac t Referred To Contact US IMAGING Diagnoses Screening for AAA (abdominal aortic aneurysm) Procedures US SCREENING FOR AAA (2017) US ABDOMINAL AORTA REAL TIME SCREEN STUDY AAA Galindo Yuan MD [address] [place] [address] [place] [address] Referral ID Status Reason Start Date Expiration Date V isits Requested Visits Authorized [id number] Closed Auto-Generate d Referral 12/20/2022 01/19/2024 1 1 [facility] for referral (narrative)* Outpatient Procedure (Routine) - New Request Specialty Diagnoses / Procedures Referred By Contac t Referred To Contact [facility] [place] Diagnoses Encounter for monitoring dofetilide therapy Paroxysmal atrial fibrillation (HCC) Procedures ECG COMPLETE ECG ROUTINE ECG W/LEAST 12 LDS W/I&R Diane Bruce PA-C [address] [place] [address] [facility] [address] [address] Referral ID Status Reason Start Date Expiration Date Visits Requested Visits Authorized [id number] New Request Auto-Generat ed Referral 01/21/2025 07/24/2025 1 1 * Outpatient Procedure (Routine) - New Request Specialty Diagnoses / Procedures Referred By Contac t Referred To Contact [facility] Diagnoses Encounter for monitoring dofetilide therapy Paroxysmal atrial fibrillation (HCC) Procedures ECG COMPLETE ECG ROUTINE ECG W/LEAST 12 LDS W/I&R Diane Bruce PA-C [address] [place] [address] [facility] [address] [place] [address] Referral ID Status Reason Start Date Expiration Date Visits Requested Visits Authorized [id number] New Request Auto-Generat ed Referral 07/24/2024 07/24/2025 1 1 [facility] for referral (narrative)* Diagnostic Procedure Only (Routine) - Authorized Specialty Diagnoses / Procedures Referred By Contac t Referred To Contact XR IMAGING Diagnoses 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 Procedures XR THORACIC LIMITED 2V AP/LAT RADEX SPINE THORACIC 2 VIEWS Renan Bowling MD [address] [facility] [address] [place] [address] Referral ID Status Reason Start Date Expiration Date Visits Requested Visits Authorized [id number] Authorized Auto-Generat ed Referral 4 10/31/2025 1 1 * Consult, Test, Treat (Routine) - Pending Review Specialty Diagnoses / Procedures Referred By Contac t Referred To Contact Psychology Diagnoses Failed back syndrome of lumbar spine Procedures CONSULT TO PSYCHOLOGY OFFICE/OUTPATIENT [facility] 60 MINUTES Renan Bowling MD [address] [facility] [place] [address] Referral ID Status Reason Start Date Expiration Date Visits Requested Visits Authorized [id number] Pending Review PCP Requested Referral 4 10/01/2025 1 1 [facility] for visit Narrative* Diagnostic Procedure Only (Routine) - Closed Specialty Diagnoses / Procedures Referred By Contac t Referred To Contact XR IMAGING Diagnoses 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 Procedures XR THORACIC LIMITED 2V AP/LAT RADEX SPINE THORACIC 2 VIEWS Renan Bowling MD [address] [facility] [place] [address] [place] [address] Referral ID Status Reason Start Date Expiration Date V isits Requested Visits Authorized [id number] Closed Auto-Generate d Referral 10/01/2024 10/31/2025 1 1 [facility] for visit Narrative* Outpatient Procedure (Routine) - Closed Specialty Diagnoses / Procedures Referred By Contac t Referred To Contact PAIN MANAGEMENT Diagnoses Pain disorder with related psychological factors Procedures PSYCHIATRIC DIAGNOSTIC EVALUATION PSYCHOLOGICAL TST EVAL SVC PHYS/QHP FIRST HOUR PSYL/NRPSYCL TST PHYS/QHP 2+ TST 1ST 30 [place] [address] [place] [address] Silvia Villanueva, PhD [address] [address] Referral ID Status Reason Start Date Expiration Date Visits Re quested Visits Authorized [id number] Closed 11/19/2024 12/26/2024 1 1 [facility] for visit Narrative* MRI/CT (Routine) - Closed Specialty Diagnoses / Procedures Referred By Contac t Referred To Contact MR IMAGING Diagnoses Chronic midline thoracic back pain Procedures MRI THORACIC SPINE WO IVCON MRI SPINAL CANAL THORACIC W/O CONTRAST MATRL Renan Bowling MD [address] [facility] [place] [address] Phone: tel: fax: MR IMAGING [facility] Referral ID Status Reason Start Date Expiration Date V isits Requested Visits Authorized [id number] Closed Auto-Generate d Referral 01/21/2025 02/20/2026 1 1 [facility] Summary Purpose Family History No Family History Records Found Relationship Condition Age at Onset Recorded Date/T diana Unknown Family History?Heart Disease Unknown June 11, 2016 5:11pm Family History?Heart Disease Unknown April 30, 2018 6:07am Family History?No pertinent history Unkno wn April 30, 2018 6:07am Relationship Condition Age at Onset Recorded Date/T diana Unknown Family History?Heart Disease Unknown June 11, 2016 4:11pm Family History?Heart Disease Unknown April 30, 2018 5:07am Family History?No pertinent history Unkno wn April 30, 2018 5:07am Advance Directives No Advanced Directives Records FoundDocuments on File Type Date Recorded 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 Advance Directive(s) 04/15/2020 9:06 AM Advance Directive(s) 04/05/2020 3:26 PM Documents on File Type Date Recorded 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 Advance Directive(s) 04/15/2020 9:06 AM Advance Directive(s) 04/05/2020 3:26 PM Advance Directive Response Recorded Date/ Time Advance Directives No November 22, 2016 4:35pm Living Will No August 08, 2022 8:12am Power of Customer Counter Associate No July 8:12am Advance Directive Response Recorded Date/ Time Advance Directives No November 22, 2016 3:35pm Living Will No January 27, 2023 9:24am Power of Customer Counter Associate No January 27 9:24am Advance Directive Response Recorded Date/ Time Advance Directives No November 22, 2016 4:35pm Living Will No June 24, 2023 7:57am Power of Customer Counter Associate No June 24 7:57am Advance Directive Response Recorded Date/ Time Advance Directives No November 22, 2016 3:35pm Living Will No October 12, 2 023 4:05pm Power of Customer Counter Associate No October 12, 2023 4:05pm Date Activated Date Inactivated Comments 04/10/2025 6:35 AM Question Answer Comments Plan of Care: Code Status Discussion Not Compl eted Decision Maker: Provider Rationale: Patient condition does not warra nt discussion Chief Complaint Chief Complaint Description Start Date lower back post Exploration of lumbar fusion, posterior, L5 bilateral on 05/02/2019, Revision bilateral hemilaminectomy, L2, L3, L4 and and L5 on 05/02/2019 Preliminary chief co mplaint data, not yet signed by the author as of Assessments There may be information available, but it has not been provided by the sender. Review of System There may be information available, but it has not been provided by the sender. History of Present Illness There may be information available, but it has not been provided by the sender. Reason for Referral Specialty Diagnoses / Procedures Referred By Contac t Referred To Contact MR IMAGING Diagnoses Spinal stenosis of cervical region Procedures MRI CERVICAL SPINE WO IVCON MRI SPINAL CANAL CERVICAL W/O CONTRAST MATRL Rashaun Manning Jr., MD [address] [facility] [address] [place] [address] Mr Imaging Referral ID Status Reason Start Date Expiration Date Visits Requested Visits Authorized [id number] Authorized Auto-Generat ed Referral 05/01/2022 05/31/2023 1 1 Referral ID Status Reason Start Date Expiration Date V isits Requested Visits Authorized [id number] Closed Auto-Generate d Referral 05/01/2022 05/31/2023 1 1 Specialty Diagnoses / Procedures Referred By Contac t Referred To Contact Pain Management Diagnoses Cervicalgia History of fusion of cervical spine Procedures CONSULT TO PAIN MGT OFFICE/OUTPATIENT NEW HIGH MDM 60-74 MINUTES Rashaun Manning Jr., MD [address] [facility] [address] [place] [address] Referral ID Status Reason Start Date Expiration Date Visits Requested Visits Authorized [id number] Pending Review PCP Requested Referral 2 09/04/2023 1 1 Specialty Diagnoses / Procedures Referred By Contac t Referred To Contact MR IMAGING Diagnoses Vertebrobasilar artery syndrome Procedures MRA CAROTID WO IVCON MRA, NECK; W/O CONTRAST Rashaun Manning Jr., MD [address] [facility] [address] [place] [address] Mr Imaging Referral ID Status Reason Start Date Expiration Date Visits Requested Visits Authorized [id number] Pending Review Auto-Generat ed Referral 2 10/05/2023 1 1 Specialty Diagnoses / Procedures Referred By Contac t Referred To Contact MR IMAGING Diagnoses Vertebrobasilar artery syndrome Procedures MRA BRAIN WO IVCON MRA, HEAD W/O CONTRAST Rashaun Manning Jr., MD [address] [facility] [address] [place] [address] Mr Imaging Referral ID Status Reason Start Date Expiration Date Visits Requested Visits Authorized [id number] Pending Review Auto-Generat ed Referral 2 10/05/2023 1 1 Specialty Diagnoses / Procedures Referred By Contac t Referred To Contact MR IMAGING Diagnoses Vertebrobasilar artery syndrome Procedures MRI BRAIN WO IVCON MRI BRAIN BRAIN STEM W/O CONTRAST MATERIAL Rashaun Manning Jr., MD [address] [address] Mr Imaging Referral ID Status Reason Start Date Expiration Date Visits Requested Visits Authorized [id number] Pending Review Auto-Generat ed Referral 2 10/05/2023 1 1 Specialty Diagnoses / Procedures Referred By Contac t Referred To Contact [facility] Diagnoses Cervicalgia Procedures CONSULT TO PHYSICAL THERAPY PHYSICAL THERAPY EVALUATION HIGH COMPLEX 45 MINS THERAPEUTIC EXERCISES RE, EA 15 MIN. Renan Bowling MD [address] [facility] [address] [facility] [address] [address] Referral ID Status Reason Start Date Expiration Date Visits Requested Visits Authorized [id number] Authorized Auto-Generat ed Referral 11/19/2022 11/18/2023 99 99 Specialty Diagnoses / Procedures Referred By Contac t Referred To Contact MR IMAGING Diagnoses Low back pain with sciatica, sciatica laterality unspecified, unspecified back pain laterality, unspecified chronicity Procedures MRI LUMBAR SPINE WO IVCON MRI SPINAL CANAL LUMBAR W/O CONTRAST MATERIAL Renan Bowling MD [address] [address] Mr Imaging [id number] Referral ID Status Reason Start Date Expiration Date Visits Requested Visits Authorized [id number] Authorized Auto-Generat ed Referral 02/13/2024 03/14/2025 1 1 Referral ID Status Reason Start Date Expiration Date V isits Requested Visits Authorized [id number] Closed Auto-Generate d Referral 02/13/2024 03/14/2025 1 1 Specialty Diagnoses / Procedures Referred By Contac t Referred To Contact SPINE SURGERY Diagnoses Lumbar radiculopathy Low back pain with sciatica, sciatica laterality unspecified, unspecified back pain laterality, unspecified chronicity Lumbar spondylosis Procedures CONSULT TO SPINE SURGERY Krystin Hernandez, UNIVERSITY TUTOR.DENTAL FLOSS PACKER [address] [place] [address] Blanco Hernandez MD [address] [address] Referral ID Status Reason Start Date Expiration Date V isits Requested Visits Authorized [id number] New Request 06/17/2024 08/16/2024 1 1 Specialty Diagnoses / Procedures Referred By Contac t Referred To Contact CT IMAGING Diagnoses Radiculopathy of lumbar region Procedures CT LUMBAR SPINE WO IVCON CT LUMBAR SPINE W/O CONTRAST MATERIAL Blanco Hernandez MD [address] [place] [address] Ct Imaging [place] [address] Referral ID Status Reason Start Date Expiration Date Visits Requested Visits Authorized [id number] Authorized Auto-Generat ed Referral 08/04/2024 09/03/2025 1 1 Referral ID Status Reason Start Date Expiration Date V isits Requested Visits Authorized [id number] Closed Auto-Generate d Referral 08/04/2024 09/03/2025 1 1 Chief Complaint and Reason for Visit Chief Complaint CP Chief Complaint wound Chief Complaint chest pain Chief Complaint chest pain cold symptoms Additional Source Comments (unrecognized sect ion and content) No Status Records FoundNo Status Records FoundNo Status Records FoundNo Status Records FoundNo Status Records FoundNo Status Records FoundNo Status Records FoundNo Status Records Found INFORMATION SOURCE (unrecogn ized section and content) DATE CREATED AUTHOR 05/10/2018 [facility] DATE CREATED AUTHOR AUTHOR'S ORGANIZ ATION 09/16/2021 [facility] DATE CREATED AUTHOR AUTHOR'S ORGANIZ ATION [facility] DATE CREATED AUTHOR AUTHOR'S ORGANIZ ATION 08/29/2024 [facility] DATE CREATED AUTHOR AUTHOR'S ORGANIZ ATION 01/15/2025 [facility] DATE CREATED AUTHOR AUTHOR'S ORGANIZ ATION 04/16/2025 [facility] DATE CREATED AUTHOR AUTHOR'S ORGANIZ ATION 04/23/2025 [facility] DATE CREATED AUTHOR AUTHOR'S ORGANIZ ATION 09/27/2025 [facility] Reason for Visit (unrecogniz ed section and content) Reason For Visit Description Postop - 1st visit Preliminary reason f or visit data, not yet signed by the author as of lower back post Exploration of lumbar fusion, posterior, L5 bilateral on 05/02/2019, Revision bilateral hemilaminectomy, L2, L3, L4 and and L5 on 05/02/2019 Reason Comments New Sleep Patient Consult ETHAN and Slee p Terrors Specialty Diagnoses / Procedures Referred By Contac t Referred To Contact Diagnoses ETHAN on CPAP Sleep terrors Procedures CONSULT TO SLEEP MEDICINE - ADULT NEW PATIENT VISIT LEVEL 5 Galindo Yuan MD [address] [place] [address] Referral ID Status Reason Start Date Expiration Date Visits Requested Visits Authorized [id number] Pending Review PCP Requested Referral 11/24/2021 11/24/2022 1 1 Reason Comments Orders New DME Reason Comments nail care Specialty Diagnoses / Procedures Referred By Contac t Referred To Contact MR IMAGING Diagnoses Spinal stenosis of cervical region Procedures MRI CERVICAL SPINE WO IVCON MRI SPINAL CANAL CERVICAL W/O CONTRAST MATRL Rashaun Manning Jr., MD [address] [facility] [address] [place] [address] Mr Imaging Referral ID Status Reason Start Date Expiration Date V isits Requested Visits Authorized [id number] Closed Auto-Generate d Referral 05/01/2022 05/31/2023 1 1 Reason Comments Results Reason Onset Date Comments Medication Problem 06/19/2022 Reason Comments Established Patient Follow up Reason Comments LESION, SKIN Lesion on right arm, one on back of both ears, one on forehead and one on left cheek. States they can be itchy and burning. Reason Comments Established Patient Follow Up Diabetic Foot Care Reason Comments Follow Up MRI results Reason Comments Orders Reason Comments Order MRI Reason Comments Neck Pain Specialty Diagnoses / Procedures Referred By Contac t Referred To Contact Pain Management Diagnoses Cervicalgia History of fusion of cervical spine Procedures CONSULT TO PAIN MGT OFFICE/OUTPATIENT NEW HIGH MDM 60-74 MINUTES Rashaun Manning Jr., MD [address] [facility] [address] [place] [address] Referral ID Status Reason Start Date Expiration Date Visits Requested Visits Authorized [id number] Pending Review PCP Requested Referral 2 09/04/2023 1 1 Reason Onset Date Comments Refill Request 09/27/2022 Reason Onset Date Comments Refill Request 11/06/2022 Reason Onset Date Comments Refill Request 11/16/2022 Reason Onset Date Comments Refill Request 12/04/2022 Reason Comments F/U 6 months Reason Comments Follow Up Sleep apnea 3 month follow up Reason Comments Medication Problem Reason Comments Injection Followup Reason Comments Physical Therapy Specialty Diagnoses / Procedures Referred By Contac t Referred To Contact [facility] Diagnoses Cervicalgia Procedures CONSULT TO PHYSICAL THERAPY PHYSICAL THERAPY EVALUATION HIGH COMPLEX 45 MINS THERAPEUTIC EXERCISES RE, EA 15 MIN. Renan Bowling MD [address] [facility] [place] [address] [facility] [place] [address] [place] [address] Referral ID Status Reason Start Date Expiration Date Visits Requested Visits Authorized [id number] Authorized Auto-Generat ed Referral 11/19/2022 11/18/2023 99 99 Reason Comments Orders TENS unit Reason Comments LESION, SKIN Reason Comments Mohs Specialty Diagnoses / Procedures Referred By Contac t Referred To Contact Dermatology Diagnoses Basal cell carcinoma of face Procedures MOHS OFFICE/OUTPATIENT NEW HIGH MDM 60-74 MINUTES Ruth Perla DO [address] [place] [address] Referral ID Status Reason Start Date Expiration Date Visits Requested Visits Authorized [id number] Pending Review PCP Requested Referral 03/15/2023 03/14/2024 1 1 Reason Comments Established Patient Follow Up nail care Pain Reason Comments ER F/U Reason Comments Medicare Wellness Exam Reason Comments Follow Up Pt reported increase d fatigue, dizziness. Reason Comments Cardiology Follow Up Reason Comments Refill Request Reason Comments Radiology US Specialty Diagnoses / Procedures Referred By Contac t Referred To Contact US IMAGING Diagnoses Screening for AAA (abdominal aortic aneurysm) Procedures US SCREENING FOR AAA (2017) US ABDOMINAL AORTA REAL TIME SCREEN STUDY AAA Galindo Yuan MD [address] [place] [address] [place] [address] Referral ID Status Reason Start Date Expiration Date V isits Requested Visits Authorized [id number] Closed Auto-Generate d Referral 12/20/2022 01/19/2024 1 1 Reason Onset Date Comments Refill Request 09/27/2023 Reason Comments Chest Congestion Sinus congestion, ch ills x1 day Reason Comments Established Patient Follow Up Pain Diabetic Foot Care Reason Onset Date Comments Refill Request 01/03/2024 Reason Comments Follow Up Reason Comments Appointment Dr. Manning Referral Reason Onset Date Comments ACM KIMBERLY RN 01/30/[address] of payor Reason Comments EKG Reason Comments Patient Update Reason Comments Established Patient Follow Up Post Op Reason Comments Back Pain Specialty Diagnoses / Procedures Referred By Contac t Referred To Contact MR IMAGING Diagnoses Low back pain with sciatica, sciatica laterality unspecified, unspecified back pain laterality, unspecified chronicity Procedures MRI LUMBAR SPINE WO IVCON MRI SPINAL CANAL LUMBAR W/O CONTRAST MATERIAL Renan Bowling MD [address] [facility] [place] [address] [place] [address] Referral ID Status Reason Start Date Expiration Date V isits Requested Visits Authorized [id number] Closed Auto-Generate d Referral 02/13/2024 03/14/2025 1 1 Reason Comments Results Lumbar MRI Reason Comments Cardiac Clearance Anticoagulation Specialty Diagnoses / Procedures Referred By Contac t Referred To Contact Dermatology Diagnoses Basal cell carcinoma (BCC) of left jain region Procedures MOHS OFFICE/OUTPATIENT [facility] 60 MINUTES Ruth Perla DO [address] [place] [address] Referral ID Status Reason Start Date Expiration Date V isits Requested Visits Authorized [id number] Closed PCP Requested Referral 02/19/2024 02/18/2025 1 1 Reason Comments Back Pain Follow Up Reason Comments Medicare Wellness Exam F/U 6 months Reason Comments Established Patient Reason Comments Follow Up ETHAN 6 month follow u p Reason Comments New Patient Evaluation Specialty Diagnoses / Procedures Referred By Contac t Referred To Contact SPINE SURGERY Diagnoses Lumbar radiculopathy Low back pain with sciatica, sciatica laterality unspecified, unspecified back pain laterality, unspecified chronicity Lumbar spondylosis Procedures CONSULT TO SPINE SURGERY OFFICE/OUTPATIENT [facility] MDM 60 MINUTES Krystin Hernandez, [employer]ER [address] [place] [address] Blanco Hernandez MD [address] [address] Referral ID Status Reason Start Date Expiration Date Visits Re quested Visits Authorized [id number] Closed 07/08/2024 11/18/2024 [address] Specialty Diagnoses / Procedures Referred By Contac t Referred To Contact CT IMAGING Diagnoses Radiculopathy of lumbar region Procedures CT LUMBAR SPINE WO IVCON CT LUMBAR SPINE W/O CONTRAST MATERIAL Blanco Heranndez MD [address] [place] [address] Ct Imaging [place] [address] Referral ID Status Reason Start Date Expiration Date V isits Requested Visits Authorized [id number] Closed Auto-Generate d Referral 08/04/2024 09/03/2025 1 1 Reason Comments Full Body Skin Check Reason Comments Appointment SCS Evaluation Reason Comments Established Patient Nail care Reason Onset Date Comments Refill Request 09/10/2024 Reason Comments Established Patient Follow Up Diabetic Foot Care Pain Reason Comments Derm Problem Exc sebaceous adenom a Reason Comments SCS Evaluation - Referral from Dr. Abena arroyo Reason Onset Date Comments Refill Request 10/01/2024 Reason Comments Results Thoracic XRAY Reason Comments Imm/Inj Reason Onset Date Comments Refill Request 11/25/2024 Reason Comments Hand Buffer - Other SCS Trial Reason Comments Recheck L testicle pain x 1. 5 weeks. Denies urinary issues Reason Onset Date Comments Refill Request 12/10/2024 Reason Comments Established Patient Pain nail care Reason Comments F/U 6 months Reason Comments Anesthesia Consult Reason Comments Insurance Authorization SCS Trial Reason Comments Back Pain SCS follow up Reason Comments Permanent SCS will be referr ed to Dr. Ochoa at Records faxed to Dr. Ochoa's Office Reason Onset Date Comments Derm Surgical Path Results 02/24/2025 Agrawal d pt to discuss biopsy results, no answer, v-mail left for pt to return call. Reason Comments Follow Up 9 month follow up-ne eds letter to be off eliquis for 2 days prior to back implant April 08 and april 09c/o lightheaded when turns head quickly Reason Comments Cardiac Clearance Reason Comments Discussion Reason Comments PT Eval Specialty Diagnoses / Procedures Referred By Contac t Referred To Contact [facility] Diagnoses Weakness of both legs Failed back syndrome Lumbar radiculopathy Procedures CONSULT TO PHYSICAL THERAPY PHYSICAL THERAPY EVALUATION HIGH COMPLEX 45 MINS THERAPEUTIC EXERCISES RE, EA 15 MIN. Galindo Yuan MD [address] [place] [address] Phone: tel: fax: [facility] [address] [place] [address] Referral ID Status Reason Start Date Expiration Date Visits Requested Visits Authorized [id number] Authorized Auto-Generat ed Referral 11/19/2024 11/18/2025 99 99 Reason Comments Established Patient Pain Diabetic Foot Care Reason Comments Follow Up ETHAN on CPAPParasomni a, unspecified typeClass 1 obesity with body mass index (BMI) of 32.0 to 32.9 in adult, unspecified obesity type, unspecified whether serious comorbidity present Source Comments (unrecognize d section and content) In the event this informatio n is protected by the Federal Confidentiality of Alcohol and Drug Abuse Patient Records regulations: The Federal rules restrict any use of the information to criminally investigate or prosecute any alcohol or drug abuse patient.[facility] the event this information is protected by the Federal Confidentiality of Alcohol and Drug Abuse Patient Records regulations: The Federal rules restrict any use of the information to criminally investigate or prosecute any alcohol or drug abuse patient.[facility]In the event this information is protected by the Federal Confidentiality of Alcohol and Drug Abuse Patient Records regulations: The Federal rules restrict any use of the information to criminally investigate or prosecute any alcohol or drug abuse patient.[facility] HospitalIn the event this information is protected by the Federal Confidentiality of Alcohol and Drug Abuse Patient Records regulations: The Federal rules restrict any use of the information to criminally investigate or prosecute any alcohol or drug abuse patient.[facility] HospitalIn the event this information is protected by the Federal Confidentiality of Alcohol and Drug Abuse Patient Records regulations: The Federal rules restrict any use of the information to criminally investigate or prosecute any alcohol or drug abuse patient.[facility] HospitalIn the event this information is protected by the Federal Confidentiality of Alcohol and Drug Abuse Patient Records regulations: The Federal rules restrict any use of the information to criminally investigate or prosecute any alcohol or drug abuse patient.[facility] HospitalIn the event this information is protected by the Federal Confidentiality of Alcohol and Drug Abuse Patient Records regulations: The Federal rules restrict any use of the information to criminally investigate or prosecute any alcohol or drug abuse patient.[facility] HospitalIn the event this information is protected by the Federal Confidentiality of Alcohol and Drug Abuse Patient Records regulations: The Federal rules restrict any use of the information to criminally investigate or prosecute any alcohol or drug abuse patient.[facility] HospitalIn the event this information is protected by the Federal Confidentiality of Alcohol and Drug Abuse Patient Records regulations: The Federal rules restrict any use of the information to criminally investigate or prosecute any alcohol or drug abuse patient.[facility] HospitalIn the event this information is protected by the Federal Confidentiality of Alcohol and Drug Abuse Patient Records regulations: The Federal rules restrict any use of the information to criminally investigate or prosecute any alcohol or drug abuse patient.[facility] HospitalIn the event this information is protected by the Federal Confidentiality of Alcohol and Drug Abuse Patient Records regulations: The Federal rules restrict any use of the information to criminally investigate or prosecute any alcohol or drug abuse patient.[facility] HospitalIn the event this information is protected by the Federal Confidentiality of Alcohol and Drug Abuse Patient Records regulations: The Federal rules restrict any use of the information to criminally investigate or prosecute any alcohol or drug abuse patient.[facility] HospitalIn the event this information is protected by the Federal Confidentiality of Alcohol and Drug Abuse Patient Records regulations: The Federal rules restrict any use of the information to criminally investigate or prosecute any alcohol or drug abuse patient.[facility] HospitalIn the event this information is protected by the Federal Confidentiality of Alcohol and Drug Abuse Patient Records regulations: The Federal rules restrict any use of the information to criminally investigate or prosecute any alcohol or drug abuse patient.[facility] HospitalIn the event this information is protected by the Federal Confidentiality of Alcohol and Drug Abuse Patient Records regulations: The Federal rules restrict any use of the information to criminally investigate or prosecute any alcohol or drug abuse patient.[facility] HospitalIn the event this information is protected by the Federal Confidentiality of Alcohol and Drug Abuse Patient Records regulations: The Federal rules restrict any use of the information to criminally investigate or prosecute any alcohol or drug abuse patient.[facility] HospitalIn the event this information is protected by the Federal Confidentiality of Alcohol and Drug Abuse Patient Records regulations: The Federal rules restrict any use of the information to criminally investigate or prosecute any alcohol or drug abuse patient.[facility] HospitalIn the event this information is protected by the Federal Confidentiality of Alcohol and Drug Abuse Patient Records regulations: The Federal rules restrict any use of the information to criminally investigate or prosecute any alcohol or drug abuse patient.[facility] HospitalIn the event this information is protected by the Federal Confidentiality of Alcohol and Drug Abuse Patient Records regulations: The Federal rules restrict any use of the information to criminally investigate or prosecute any alcohol or drug abuse patient.[facility] HospitalIn the event this information is protected by the Federal Confidentiality of Alcohol and Drug Abuse Patient Records regulations: The Federal rules restrict any use of the information to criminally investigate or prosecute any alcohol or drug abuse patient.[facility] HospitalIn the event this information is protected by the Federal Confidentiality of Alcohol and Drug Abuse Patient Records regulations: The Federal rules restrict any use of the information to criminally investigate or prosecute any alcohol or drug abuse patient.[facility] HospitalIn the event this information is protected by the Federal Confidentiality of Alcohol and Drug Abuse Patient Records regulations: The Federal rules restrict any use of the information to criminally investigate or prosecute any alcohol or drug abuse patient.[facility] HospitalIn the event this information is protected by the Federal Confidentiality of Alcohol and Drug Abuse Patient Records regulations: The Federal rules restrict any use of the information to criminally investigate or prosecute any alcohol or drug abuse patient.[facility] HospitalIn the event this information is protected by the Federal Confidentiality of Alcohol and Drug Abuse Patient Records regulations: The Federal rules restrict any use of the information to criminally investigate or prosecute any alcohol or drug abuse patient.[facility] HospitalIn the event this information is protected by the Federal Confidentiality of Alcohol and Drug Abuse Patient Records regulations: The Federal rules restrict any use of the information to criminally investigate or prosecute any alcohol or drug abuse patient.[facility] HospitalIn the event this information is protected by the Federal Confidentiality of Alcohol and Drug Abuse Patient Records regulations: The Federal rules restrict any use of the information to criminally investigate or prosecute any alcohol or drug abuse patient.[facility] HospitalIn the event this information is protected by the Federal Confidentiality of Alcohol and Drug Abuse Patient Records regulations: The Federal rules restrict any use of the information to criminally investigate or prosecute any alcohol or drug abuse patient.[facility] HospitalIn the event this information is protected by the Federal Confidentiality of Alcohol and Drug Abuse Patient Records regulations: The Federal rules restrict any use of the information to criminally investigate or prosecute any alcohol or drug abuse patient.[facility] HospitalIn the event this information is protected by the Federal Confidentiality of Alcohol and Drug Abuse Patient Records regulations: The Federal rules restrict any use of the information to criminally investigate or prosecute any alcohol or drug abuse patient.[facility] HospitalIn the event this information is protected by the Federal Confidentiality of Alcohol and Drug Abuse Patient Records regulations: The Federal rules restrict any use of the information to criminally investigate or prosecute any alcohol or drug abuse patient.[facility] HospitalIn the event this information is protected by the Federal Confidentiality of Alcohol and Drug Abuse Patient Records regulations: The Federal rules restrict any use of the information to criminally investigate or prosecute any alcohol or drug abuse patient.[facility] HospitalIn the event this information is protected by the Federal Confidentiality of Alcohol and Drug Abuse Patient Records regulations: The Federal rules restrict any use of the information to criminally investigate or prosecute any alcohol or drug abuse patient.[facility] HospitalIn the event this information is protected by the Federal Confidentiality of Alcohol and Drug Abuse Patient Records regulations: The Federal rules restrict any use of the information to criminally investigate or prosecute any alcohol or drug abuse patient.[facility] HospitalIn the event this information is protected by the Federal Confidentiality of Alcohol and Drug Abuse Patient Records regulations: The Federal rules restrict any use of the information to criminally investigate or prosecute any alcohol or drug abuse patient.[facility] HospitalIn the event this information is protected by the Federal Confidentiality of Alcohol and Drug Abuse Patient Records regulations: The Federal rules restrict any use of the information to criminally investigate or prosecute any alcohol or drug abuse patient.[facility] HospitalIn the event this information is protected by the Federal Confidentiality of Alcohol and Drug Abuse Patient Records regulations: The Federal rules restrict any use of the information to criminally investigate or prosecute any alcohol or drug abuse patient.[facility] HospitalIn the event this information is protected by the Federal Confidentiality of Alcohol and Drug Abuse Patient Records regulations: The Federal rules restrict any use of the information to criminally investigate or prosecute any alcohol or drug abuse patient.[facility] HospitalIn the event this information is protected by the Federal Confidentiality of Alcohol and Drug Abuse Patient Records regulations: The Federal rules restrict any use of the information to criminally investigate or prosecute any alcohol or drug abuse patient.[facility] HospitalIn the event this information is protected by the Federal Confidentiality of Alcohol and Drug Abuse Patient Records regulations: The Federal rules restrict any use of the information to criminally investigate or prosecute any alcohol or drug abuse patient.[facility] HospitalIn the event this information is protected by the Federal Confidentiality of Alcohol and Drug Abuse Patient Records regulations: The Federal rules restrict any use of the information to criminally investigate or prosecute any alcohol or drug abuse patient.[facility] HospitalIn the event this information is protected by the Federal Confidentiality of Alcohol and Drug Abuse Patient Records regulations: The Federal rules restrict any use of the information to criminally investigate or prosecute any alcohol or drug abuse patient.[facility] HospitalIn the event this information is protected by the Federal Confidentiality of Alcohol and Drug Abuse Patient Records regulations: The Federal rules restrict any use of the information to criminally investigate or prosecute any alcohol or drug abuse patient.[facility] HospitalIn the event this information is protected by the Federal Confidentiality of Alcohol and Drug Abuse Patient Records regulations: The Federal rules restrict any use of the information to criminally investigate or prosecute any alcohol or drug abuse patient.[facility] HospitalIn the event this information is protected by the Federal Confidentiality of Alcohol and Drug Abuse Patient Records regulations: The Federal rules restrict any use of the information to criminally investigate or prosecute any alcohol or drug abuse patient.[facility] HospitalIn the event this information is protected by the Federal Confidentiality of Alcohol and Drug Abuse Patient Records regulations: The Federal rules restrict any use of the information to criminally investigate or prosecute any alcohol or drug abuse patient.[facility] HospitalIn the event this information is protected by the Federal Confidentiality of Alcohol and Drug Abuse Patient Records regulations: The Federal rules restrict any use of the information to criminally investigate or prosecute any alcohol or drug abuse patient.[facility] HospitalIn the event this information is protected by the Federal Confidentiality of Alcohol and Drug Abuse Patient Records regulations: The Federal rules restrict any use of the information to criminally investigate or prosecute any alcohol or drug abuse patient.[facility] HospitalIn the event this information is protected by the Federal Confidentiality of Alcohol and Drug Abuse Patient Records regulations: The Federal rules restrict any use of the information to criminally investigate or prosecute any alcohol or drug abuse patient.[facility] HospitalIn the event this information is protected by the Federal Confidentiality of Alcohol and Drug Abuse Patient Records regulations: The Federal rules restrict any use of the information to criminally investigate or prosecute any alcohol or drug abuse patient.[facility] HospitalIn the event this information is protected by the Federal Confidentiality of Alcohol and Drug Abuse Patient Records regulations: The Federal rules restrict any use of the information to criminally investigate or prosecute any alcohol or drug abuse patient.[facility] HospitalIn the event this information is protected by the Federal Confidentiality of Alcohol and Drug Abuse Patient Records regulations: The Federal rules restrict any use of the information to criminally investigate or prosecute any alcohol or drug abuse patient.[facility] HospitalIn the event this information is protected by the Federal Confidentiality of Alcohol and Drug Abuse Patient Records regulations: The Federal rules restrict any use of the information to criminally investigate or prosecute any alcohol or drug abuse patient.[facility] HospitalIn the event this information is protected by the Federal Confidentiality of Alcohol and Drug Abuse Patient Records regulations: The Federal rules restrict any use of the information to criminally investigate or prosecute any alcohol or drug abuse patient.[facility] HospitalIn the event this information is protected by the Federal Confidentiality of Alcohol and Drug Abuse Patient Records regulations: The Federal rules restrict any use of the information to criminally investigate or prosecute any alcohol or drug abuse patient.[facility] HospitalIn the event this information is protected by the Federal Confidentiality of Alcohol and Drug Abuse Patient Records regulations: The Federal rules restrict any use of the information to criminally investigate or prosecute any alcohol or drug abuse patient.[facility] HospitalIn the event this information is protected by the Federal Confidentiality of Alcohol and Drug Abuse Patient Records regulations: The Federal rules restrict any use of the information to criminally investigate or prosecute any alcohol or drug abuse patient.[facility] HospitalIn the event this information is protected by the Federal Confidentiality of Alcohol and Drug Abuse Patient Records regulations: The Federal rules restrict any use of the information to criminally investigate or prosecute any alcohol or drug abuse patient.[facility] HospitalIn the event this information is protected by the Federal Confidentiality of Alcohol and Drug Abuse Patient Records regulations: The Federal rules restrict any use of the information to criminally investigate or prosecute any alcohol or drug abuse patient.[facility] HospitalIn the event this information is protected by the Federal Confidentiality of Alcohol and Drug Abuse Patient Records regulations: The Federal rules restrict any use of the information to criminally investigate or prosecute any alcohol or drug abuse patient.[facility] HospitalIn the event this information is protected by the Federal Confidentiality of Alcohol and Drug Abuse Patient Records regulations: The Federal rules restrict any use of the information to criminally investigate or prosecute any alcohol or drug abuse patient.[facility] HospitalIn the event this information is protected by the Federal Confidentiality of Alcohol and Drug Abuse Patient Records regulations: The Federal rules restrict any use of the information to criminally investigate or prosecute any alcohol or drug abuse patient.[facility] HospitalIn the event this information is protected by the Federal Confidentiality of Alcohol and Drug Abuse Patient Records regulations: The Federal rules restrict any use of the information to criminally investigate or prosecute any alcohol or drug abuse patient.[facility] HospitalIn the event this information is protected by the Federal Confidentiality of Alcohol and Drug Abuse Patient Records regulations: The Federal rules restrict any use of the information to criminally investigate or prosecute any alcohol or drug abuse patient.[facility] HospitalIn the event this information is protected by the Federal Confidentiality of Alcohol and Drug Abuse Patient Records regulations: The Federal rules restrict any use of the information to criminally investigate or prosecute any alcohol or drug abuse patient.[facility] HospitalIn the event this information is protected by the Federal Confidentiality of Alcohol and Drug Abuse Patient Records regulations: The Federal rules restrict any use of the information to criminally investigate or prosecute any alcohol or drug abuse patient.[facility] HospitalIn the event this information is protected by the Federal Confidentiality of Alcohol and Drug Abuse Patient Records regulations: The Federal rules restrict any use of the information to criminally investigate or prosecute any alcohol or drug abuse patient.[facility] HospitalIn the event this information is protected by the Federal Confidentiality of Alcohol and Drug Abuse Patient Records regulations: The Federal rules restrict any use of the information to criminally investigate or prosecute any alcohol or drug abuse patient.[facility] HospitalIn the event this information is protected by the Federal Confidentiality of Alcohol and Drug Abuse Patient Records regulations: The Federal rules restrict any use of the information to criminally investigate or prosecute any alcohol or drug abuse patient.[facility] HospitalIn the event this information is protected by the Federal Confidentiality of Alcohol and Drug Abuse Patient Records regulations: The Federal rules restrict any use of the information to criminally investigate or prosecute any alcohol or drug abuse patient.[facility] HospitalIn the event this information is protected by the Federal Confidentiality of Alcohol and Drug Abuse Patient Records regulations: The Federal rules restrict any use of the information to criminally investigate or prosecute any alcohol or drug abuse patient.[facility] HospitalIn the event this information is protected by the Federal Confidentiality of Alcohol and Drug Abuse Patient Records regulations: The Federal rules restrict any use of the information to criminally investigate or prosecute any alcohol or drug abuse patient.[facility] HospitalIn the event this information is protected by the Federal Confidentiality of Alcohol and Drug Abuse Patient Records regulations: The Federal rules restrict any use of the information to criminally investigate or prosecute any alcohol or drug abuse patient.[facility] HospitalIn the event this information is protected by the Federal Confidentiality of Alcohol and Drug Abuse Patient Records regulations: The Federal rules restrict any use of the information to criminally investigate or prosecute any alcohol or drug abuse patient.[facility] HospitalIn the event this information is protected by the Federal Confidentiality of Alcohol and Drug Abuse Patient Records regulations: The Federal rules restrict any use of the information to criminally investigate or prosecute any alcohol or drug abuse patient.[facility] HospitalIn the event this information is protected by the Federal Confidentiality of Alcohol and Drug Abuse Patient Records regulations: The Federal rules restrict any use of the information to criminally investigate or prosecute any alcohol or drug abuse patient.[facility] HospitalIn the event this information is protected by the Federal Confidentiality of Alcohol and Drug Abuse Patient Records regulations: The Federal rules restrict any use of the information to criminally investigate or prosecute any alcohol or drug abuse patient.[facility] HospitalIn the event this information is protected by the Federal Confidentiality of Alcohol and Drug Abuse Patient Records regulations: The Federal rules restrict any use of the information to criminally investigate or prosecute any alcohol or drug abuse patient.[facility] HospitalIn the event this information is protected by the Federal Confidentiality of Alcohol and Drug Abuse Patient Records regulations: The Federal rules restrict any use of the information to criminally investigate or prosecute any alcohol or drug abuse patient.[facility] HospitalIn the event this information is protected by the Federal Confidentiality of Alcohol and Drug Abuse Patient Records regulations: The Federal rules restrict any use of the information to criminally investigate or prosecute any alcohol or drug abuse patient.[facility] HospitalIn the event this information is protected by the Federal Confidentiality of Alcohol and Drug Abuse Patient Records regulations: The Federal rules restrict any use of the information to criminally investigate or prosecute any alcohol or drug abuse patient.[facility] HospitalIn the event this information is protected by the Federal Confidentiality of Alcohol and Drug Abuse Patient Records regulations: The Federal rules restrict any use of the information to criminally investigate or prosecute any alcohol or drug abuse patient.[facility] HospitalIn the event this information is protected by the Federal Confidentiality of Alcohol and Drug Abuse Patient Records regulations: The Federal rules restrict any use of the information to criminally investigate or prosecute any alcohol or drug abuse patient.[facility] HospitalIn the event this information is protected by the Federal Confidentiality of Alcohol and Drug Abuse Patient Records regulations: The Federal rules restrict any use of the information to criminally investigate or prosecute any alcohol or drug abuse patient.[facility] HospitalIn the event this information is protected by the Federal Confidentiality of Alcohol and Drug Abuse Patient Records regulations: The Federal rules restrict any use of the information to criminally investigate or prosecute any alcohol or drug abuse patient.[facility] HospitalIn the event this information is protected by the Federal Confidentiality of Alcohol and Drug Abuse Patient Records regulations: The Federal rules restrict any use of the information to criminally investigate or prosecute any alcohol or drug abuse patient.[facility] HospitalIn the event this information is protected by the Federal Confidentiality of Alcohol and Drug Abuse Patient Records regulations: The Federal rules restrict any use of the information to criminally investigate or prosecute any alcohol or drug abuse patient.[facility] HospitalIn the event this information is protected by the Federal Confidentiality of Alcohol and Drug Abuse Patient Records regulations: The Federal rules restrict any use of the information to criminally investigate or prosecute any alcohol or drug abuse patient.[facility] HospitalIn the event this information is protected by the Federal Confidentiality of Alcohol and Drug Abuse Patient Records regulations: The Federal rules restrict any use of the information to criminally investigate or prosecute any alcohol or drug abuse patient.[facility] HospitalIn the event this information is protected by the Federal Confidentiality of Alcohol and Drug Abuse Patient Records regulations: The Federal rules restrict any use of the information to criminally investigate or prosecute any alcohol or drug abuse patient.[facility] HospitalIn the event this information is protected by the Federal Confidentiality of Alcohol and Drug Abuse Patient Records regulations: The Federal rules restrict any use of the information to criminally investigate or prosecute any alcohol or drug abuse patient.[facility] HospitalIn the event this information is protected by the Federal Confidentiality of Alcohol and Drug Abuse Patient Records regulations: The Federal rules restrict any use of the information to criminally investigate or prosecute any alcohol or drug abuse patient.[facility] HospitalIn the event this information is protected by the Federal Confidentiality of Alcohol and Drug Abuse Patient Records regulations: The Federal rules restrict any use of the information to criminally investigate or prosecute any alcohol or drug abuse patient.[facility] HospitalIn the event this information is protected by the Federal Confidentiality of Alcohol and Drug Abuse Patient Records regulations: The Federal rules restrict any use of the information to criminally investigate or prosecute any alcohol or drug abuse patient.[facility] HospitalIn the event this information is protected by the Federal Confidentiality of Alcohol and Drug Abuse Patient Records regulations: The Federal rules restrict any use of the information to criminally investigate or prosecute any alcohol or drug abuse patient.[facility] HospitalIn the event this information is protected by the Federal Confidentiality of Alcohol and Drug Abuse Patient Records regulations: The Federal rules restrict any use of the information to criminally investigate or prosecute any alcohol or drug abuse patient.[facility] HospitalIn the event this information is protected by the Federal Confidentiality of Alcohol and Drug Abuse Patient Records regulations: The Federal rules restrict any use of the information to criminally investigate or prosecute any alcohol or drug abuse patient.[facility] HospitalIn the event this information is protected by the Federal Confidentiality of Alcohol and Drug Abuse Patient Records regulations: The Federal rules restrict any use of the information to criminally investigate or prosecute any alcohol or drug abuse patient.[facility] HospitalIn the event this information is protected by the Federal Confidentiality of Alcohol and Drug Abuse Patient Records regulations: The Federal rules restrict any use of the information to criminally investigate or prosecute any alcohol or drug abuse patient.[facility] HospitalIn the event this information is protected by the Federal Confidentiality of Alcohol and Drug Abuse Patient Records regulations: The Federal rules restrict any use of the information to criminally investigate or prosecute any alcohol or drug abuse patient.[facility] HospitalIn the event this information is protected by the Federal Confidentiality of Alcohol and Drug Abuse Patient Records regulations: The Federal rules restrict any use of the information to criminally investigate or prosecute any alcohol or drug abuse patient.[facility] HospitalIn the event this information is protected by the Federal Confidentiality of Alcohol and Drug Abuse Patient Records regulations: The Federal rules restrict any use of the information to criminally investigate or prosecute any alcohol or drug abuse patient.[facility] HospitalIn the event this information is protected by the Federal Confidentiality of Alcohol and Drug Abuse Patient Records regulations: The Federal rules restrict any use of the information to criminally investigate or prosecute any alcohol or drug abuse patient.[facility] HospitalIn the event this information is protected by the Federal Confidentiality of Alcohol and Drug Abuse Patient Records regulations: The Federal rules restrict any use of the information to criminally investigate or prosecute any alcohol or drug abuse patient.[facility] HospitalIn the event this information is protected by the Federal Confidentiality of Alcohol and Drug Abuse Patient Records regulations: The Federal rules restrict any use of the information to criminally investigate or prosecute any alcohol or drug abuse patient.[facility] HospitalIn the event this information is protected by the Federal Confidentiality of Alcohol and Drug Abuse Patient Records regulations: The Federal rules restrict any use of the information to criminally investigate or prosecute any alcohol or drug abuse patient.[facility] HospitalIn the event this information is protected by the Federal Confidentiality of Alcohol and Drug Abuse Patient Records regulations: The Federal rules restrict any use of the information to criminally investigate or prosecute any alcohol or drug abuse patient.[facility] HospitalIn the event this information is protected by the Federal Confidentiality of Alcohol and Drug Abuse Patient Records regulations: The Federal rules restrict any use of the information to criminally investigate or prosecute any alcohol or drug abuse patient.[facility] HospitalIn the event this information is protected by the Federal Confidentiality of Alcohol and Drug Abuse Patient Records regulations: The Federal rules restrict any use of the information to criminally investigate or prosecute any alcohol or drug abuse patient.[facility] HospitalIn the event this information is protected by the Federal Confidentiality of Alcohol and Drug Abuse Patient Records regulations: The Federal rules restrict any use of the information to criminally investigate or prosecute any alcohol or drug abuse patient.[facility] HospitalIn the event this information is protected by the Federal Confidentiality of Alcohol and Drug Abuse Patient Records regulations: The Federal rules restrict any use of the information to criminally investigate or prosecute any alcohol or drug abuse patient.[facility] HospitalIn the event this information is protected by the Federal Confidentiality of Alcohol and Drug Abuse Patient Records regulations: The Federal rules restrict any use of the information to criminally investigate or prosecute any alcohol or drug abuse patient.[facility] HospitalIn the event this information is protected by the Federal Confidentiality of Alcohol and Drug Abuse Patient Records regulations: The Federal rules restrict any use of the information to criminally investigate or prosecute any alcohol or drug abuse patient.[facility] HospitalIn the event this information is protected by the Federal Confidentiality of Alcohol and Drug Abuse Patient Records regulations: The Federal rules restrict any use of the information to criminally investigate or prosecute any alcohol or drug abuse patient.[facility] HospitalIn the event this information is protected by the Federal Confidentiality of Alcohol and Drug Abuse Patient Records regulations: The Federal rules restrict any use of the information to criminally investigate or prosecute any alcohol or drug abuse patient.[facility] HospitalIn the event this information is protected by the Federal Confidentiality of Alcohol and Drug Abuse Patient Records regulations: The Federal rules restrict any use of the information to criminally investigate or prosecute any alcohol or drug abuse patient.[facility] HospitalIn the event this information is protected by the Federal Confidentiality of Alcohol and Drug Abuse Patient Records regulations: The Federal rules restrict any use of the information to criminally investigate or prosecute any alcohol or drug abuse patient.[facility] Care Teams (unrecognized sec tion and content) Management Intern Relationship Specialty Start Date End Date Galindo Yuan MD [address] [place], [place] [id number] PCP - General Internal Medicine 06/19/03 Sakshi Sanz MD [address] [place] [address] Primary Staff Physician Cardiology 02/04/19 Management Intern Relationship Specialty Start Date End Date Galindo Yuan MD [address] [place], [place] [id number] PCP - General Internal Medicine 06/19/03 Sakshi Sanz MD [address] [place] [address] Primary Staff Physician Cardiology 02/04/19 Management Intern Relationship Specialty Start Date End Date Galindo Yuan MD [address] [facility] [place] [address] PCP - General Internal Medicine 06/19/03 Sakshi Sanz MD [address] [place] [address] Primary Staff Physician Cardiology 02/04/19 Management Intern Relationship Specialty Start Date End Date Galindo Yuan MD [address] [facility] [place] [address] PCP - General Internal Medicine 06/19/03 Sakshi Sanz MD [address] [place] [address] Primary Staff Physician Cardiology 02/04/19 Management Intern Relationship Specialty Start Date End Date Galindo Yuan MD [address] [facility] [place] [address] PCP - General Internal Medicine 06/19/03 Sakshi Sanz MD [address] [place] [address] Primary Staff Physician Cardiology 02/04/19 Management Intern Relationship Specialty Start Date End Date Galindo Yuan MD [address] [facility] [place] [address] PCP - General Internal Medicine 06/19/03 Sakshi Sanz MD [address] [place] [address] Primary Staff Physician Cardiology 02/04/19 Management Intern Relationship Specialty Start Date End Date Galindo Yuan MD [address] [facility] [place] [address] PCP - General Internal Medicine 06/19/03 Sakshi Sanz MD [address] [place] [address] Primary Staff Physician Cardiology 02/04/19 Management Intern Relationship Specialty Start Date End Date Galindo Yuan MD [address] [facility] [place] [address] PCP - General Internal Medicine 06/19/03 Sakshi Sanz MD [address] [place] [address] Primary Staff Physician Cardiology 02/04/19 Management Intern Relationship Specialty Start Date End Date Galindo Yuan MD [address] [facility] [place] [address] PCP - General Internal Medicine 06/19/03 Sakshi Sanz MD [address] [facility] [place] [place] [address] Primary Staff Physician Cardiology 02/04/19 Management Intern Relationship Specialty Start Date End Date Galindo Yuan MD [address] [facility] [place] [address] PCP - General Internal Medicine 06/19/03 Sakshi Sanz MD [address] [place] [address] Primary Staff Physician Cardiology 02/04/19 Management Intern Relationship Specialty Start Date End Date Galindo Yuan MD [address] [facility] [place] [address] PCP - General Internal Medicine 06/19/03 Sakshi Sanz MD [address] [place] [address] Primary Staff Physician Cardiology 02/04/19 Management Intern Relationship Specialty Start Date End Date Galindo Yuan MD [address] [facility] [place] [address] PCP - General Internal Medicine 06/19/03 Sakshi Sanz MD [address] [place] [address] Primary Staff Physician Cardiology 02/04/19 Management Intern Relationship Specialty Start Date End Date Galindo Yuan MD [address] [facility] [place] [address] PCP - General Internal Medicine 06/19/03 Sakshi Sanz MD [address] [place] [address] Primary Staff Physician Cardiology 02/04/19 Management Intern Relationship Specialty Start Date End Date Galindo Yuan MD [address] [facility] [place] [address] PCP - General Internal Medicine 06/19/03 Sakshi Sanz MD [address] [place] [address] Primary Staff Physician Cardiology 02/04/19 Management Intern Relationship Specialty Start Date End Date Galindo Yuan MD [address] [facility] [place] [address] PCP - General Internal Medicine 06/19/03 Sakshi Sanz MD [address] [place] [address] Primary Staff Physician Cardiology 02/04/19 Management Intern Relationship Specialty Start Date End Date Galindo Yuan MD [address] [facility] [place] [address] PCP - General Internal Medicine 06/19/03 Sakshi Sanz MD [address] [place] [address] Primary Staff Physician Cardiology 02/04/19 Management Intern Relationship Specialty Start Date End Date Galindo Yuan MD [address] [facility] [place] [address] PCP - General Internal Medicine 06/19/03 Sakshi Sanz MD [address] [place] [address] Primary Staff Physician Cardiology 02/04/19 Management Intern Relationship Specialty Start Date End Date Galindo Yuan MD [address] [facility] [place] [address] PCP - General Internal Medicine 06/19/03 Sakshi Sanz MD [address] [place] [address] Primary Staff Physician Cardiology 02/04/19 Management Intern Relationship Specialty Start Date End Date Galindo Yuan MD [address] [facility] [place] [address] PCP - General Internal Medicine 06/19/03 Sakshi Sanz MD [address] [place] [address] Primary Staff Physician Cardiology 02/04/19 Management Intern Relationship Specialty Start Date End Date Galindo Yuan MD [address] [facility] [place] [address] PCP - General Internal Medicine 06/19/03 Sakshi Sanz MD [address] [facility] [place] [address] Primary Staff Physician Cardiology 02/04/19 Management Intern Relationship Specialty Start Date End Date Galindo Yuan MD [address] [place] [address] PCP - General Internal Medicine 06/19/03 Sakshi Sanz MD [address] [place] [address] Primary Staff Physician Cardiology 02/04/19 Team Status: Active Member Role Status Dates Dr. Galindo Yuan MD Family Provider Active Dr. Galindo Yuan MD Primary Care Provider Active Team Status: Inactive Member Role Status Dates Dr. Galindo Yuan MD Primary Care Provider Active Dr. Gwendolyn Lopes , Emergency Provider Active Management Intern Relationship Specialty Start Date End Date Galindo Yuan MD [address] [place] [address] PCP - General Internal Medicine 06/19/03 Sakshi Sanz MD [address] [place] [address] Primary Staff Physician Cardiology 02/04/19 Management Intern Relationship Specialty Start Date End Date Galindo Yuan MD [address] [facility] [place] [address] PCP - General Internal Medicine 06/19/03 Sakshi Sanz MD [address] [place] [address] Primary Staff Physician Cardiology 02/04/19 Management Intern Relationship Specialty Start Date End Date Galindo Yuan MD [address] [facility] [place] [address] PCP - General Internal Medicine 06/19/03 Sakshi Sanz MD [address] [place] [address] Primary Staff Physician Cardiology 02/04/19 Management Intern Relationship Specialty Start Date End Date Galindo Yuan MD [address] [facility] [place] [address] PCP - General Internal Medicine 06/19/03 Sakshi Sanz MD [address] [place] [address] Primary Staff Physician Cardiology 02/04/19 Team Status: Inactive Member Role Status Dates Dr. Galindo Yuan MD Primary Care Provider Active Dr. Koffi Rome DO Emergency Provider Active Management Intern Relationship Specialty Start Date End Date Galindo Yuan MD [address] [facility] [place] [address] PCP - General Internal Medicine 06/19/03 Sakshi Sanz MD [address] [place] [address] Primary Staff Physician Cardiology 02/04/19 Management Intern Relationship Specialty Start Date End Date Galindo Yuan MD [address] [facility] [place] [address] PCP - General Internal Medicine 06/19/03 Sakshi Sanz MD [address] [place] [address] Primary Staff Physician Cardiology 02/04/19 Management Intern Relationship Specialty Start Date End Date Galindo Yuan MD [address] [facility] [place] [address] PCP - General Internal Medicine 06/19/03 Sakshi Sanz MD [address] [place] [address] Primary Staff Physician Cardiology 02/04/19 Management Intern Relationship Specialty Start Date End Date Galindo Yuan MD [address] [place] [address] PCP - General Internal Medicine 06/19/03 Sakshi Sanz MD [address] [place] [address] Primary Staff Physician Cardiology 02/04/19 Management Intern Relationship Specialty Start Date End Date Galindo Yuan MD [address] [place] [address] PCP - General Internal Medicine 06/19/03 Sakshi Sanz MD [address] [place] [address] Primary Staff Physician Cardiology 02/04/19 Management Intern Relationship Specialty Start Date End Date Galindo Yuan MD [address] [place] [address] PCP - General Internal Medicine 06/19/03 Sakshi Sanz MD [address] [place] [address] Primary Staff Physician Cardiology 02/04/19 Team Status: Inactive Member Role Status Dates Dr. Galindo Yuan MD Primary Care Provider Active Dr. Koffi Rome DO Attending Provider, Emergency Provider Active Team Status: Inactive Member Role Status Dates Dr. Galindo Yuan MD Primary Care Provider Active Dr. Vicente Davila DO Emergency Provider Active Management Intern Relationship Specialty Start Date End Date Galindo Yuan MD [address] [place] [address] PCP - General Internal Medicine 06/19/03 Sakshi Sanz MD [address] [place] [address] Primary Staff Physician Cardiology 02/04/19 Management Intern Relationship Specialty Start Date End Date Galindo Yuan MD [address] [place] [address] PCP - General Internal Medicine 06/19/03 Sakshi Sanz MD [address] [place] [address] Primary Staff Physician Cardiology 02/04/19 Management Intern Relationship Specialty Start Date End Date Galindo Yuan MD [address] [place] [address] PCP - General Internal Medicine 06/19/03 Sakshi Sanz MD [address] [place] [address] Primary Staff Physician Cardiology 02/04/19 Management Intern Relationship Specialty Start Date End Date Galindo Yuan MD [address] [place] [address] PCP - General Internal Medicine 06/19/03 Sakshi Sanz MD [address] [place] [address] Primary Staff Physician Cardiology 02/04/19 Management Intern Relationship Specialty Start Date End Date Galindo Yuan MD [address] [place] [address] PCP - General Internal Medicine 06/19/03 Sakshi Sanz MD [address] [place] [address] Primary Staff Physician Cardiology 02/04/19 Management Intern Relationship Specialty Start Date End Date Galindo Yuan MD [address] [place] [address] PCP - General Internal Medicine 06/19/03 Sakshi Sanz MD [address] [place] [address] Primary Staff Physician Cardiology 02/04/19 Management Intern Relationship Specialty Start Date End Date Galindo Yuan MD [address] [place] [address] PCP - General Internal Medicine 06/19/03 Sakshi Sanz MD [address] [place] [address] Primary Staff Physician Cardiology 02/04/19 Management Intern Relationship Specialty Start Date End Date Galindo Yuan MD [address] [place] [address] PCP - General Internal Medicine 06/19/03 Sakshi Sanz MD [address] [place] [address] Primary Staff Physician Cardiology 02/04/19 Management Intern Relationship Specialty Start Date End Date Galindo Yuan MD [address] [place] [address] PCP - General Internal Medicine 06/19/03 Sakshi Sanz MD [address] [place] [address] Primary Staff Physician Cardiology 02/04/19 Management Intern Relationship Specialty Start Date End Date Galindo Yuan MD [address] [place] [address] PCP - General Internal Medicine 06/19/03 Sakshi Sanz MD [address] [place] [address] Primary Staff Physician Cardiology 02/04/19 Management Intern Relationship Specialty Start Date End Date Galindo Yuan MD [address] [facility] [place] [address] PCP - General Internal Medicine 06/19/03 Sakshi Sanz MD [address] [place] [address] Primary Staff Physician Cardiology 02/04/19 Management Intern Relationship Specialty Start Date End Date Galindo Yuan MD [address] [place] [address] PCP - General Internal Medicine 06/19/03 Sakshi Sanz MD [address] [place] [address] Primary Staff Physician Cardiology 02/04/19 Management Intern Relationship Specialty Start Date End Date Galindo Yuan MD [address] [place] [address] PCP - General Internal Medicine 06/19/03 Sakshi Sanz MD [address] [place] [address] Primary Staff Physician Cardiology 02/04/19 Management Intern Relationship Specialty Start Date End Date Galindo Yuan MD [address] [place] [address] PCP - General Internal Medicine 06/19/03 Sakshi Sanz MD [address] [place] [address] Primary Staff Physician Cardiology 02/04/19 Management Intern Relationship Specialty Start Date End Date Galindo Yuan MD [address] [place] [address] PCP - General Internal Medicine 06/19/03 Sakshi Sanz MD [address] [place] [address] Primary Staff Physician Cardiology 02/04/19 Management Intern Relationship Specialty Start Date End Date Galindo Yuan MD [address] [place] [address] PCP - General Internal Medicine 06/19/03 Sakshi Sanz MD [address] [place] [address] Primary Staff Physician Cardiology 02/04/19 Management Intern Relationship Specialty Start Date End Date Galindo Yuan MD [address] [place] [address] PCP - General Internal Medicine 06/19/03 Sakshi Sanz MD [address] [place] [address] Primary Staff Physician Cardiology 02/04/19 Management Intern Relationship Specialty Start Date End Date Galindo Yuan MD [address] [place] [address] PCP - General Internal Medicine 06/19/03 Sakshi Sanz MD [address] [place] [address] Primary Staff Physician Cardiology 02/04/19 Management Intern Relationship Specialty Start Date End Date Galindo Yuan MD [address] [place] [address] PCP - General Internal Medicine 06/19/03 Sakshi Sanz MD [address] [place] [address] Primary Staff Physician Cardiology 02/04/19 Ana Mckoy, UNIVERSITY TUTOR.DENTAL FLOSS PACKER [address] [place] [address] Candy Bar Attendant Internal Medicine 10/27/24 Management Intern Relationship Specialty Start Date End Date Galindo Yuan MD [address] [facility] [place] [address] PCP - General Internal Medicine 06/19/03 Sakshi Sanz MD [address] [place] [address] Primary Staff Physician Cardiology 02/04/19 Ana Mckoy, UNIVERSITY TUTOR.DENTAL FLOSS PACKER [address] [facility] [place] [address] Candy Bar Attendant Internal Medicine 10/27/24 Management Intern Relationship Specialty Start Date End Date Galindo Yuan MD [address] [place] [address] PCP - General Internal Medicine 06/19/03 Sakshi Sanz MD [address] [place] [address] Primary Staff Physician Cardiology 02/04/19 Ana Mckoy, UNIVERSITY TUTOR.DENTAL FLOSS PACKER [address] [facility] [place] [address] Candy Bar Attendant Internal Medicine 10/27/24 Management Intern Relationship Specialty Start Date End Date Galindo Yuan MD [address] [place] [address] PCP - General Internal Medicine 06/19/03 Sakshi Sanz MD [address] [place] [address] Primary Staff Physician Cardiology 02/04/19 Ana Mckoy, UNIVERSITY TUTOR.DENTAL FLOSS PACKER [address] [facility] [place] [address] Candy Bar Attendant Internal Medicine 10/27/24 Management Intern Relationship Specialty Start Date End Date Galindo Yuan MD [address] [facility] [place] [address] PCP - General Internal Medicine 06/19/03 Sakshi Sanz MD [address] [place] [address] Primary Staff Physician Cardiology 02/04/19 Ana Mckoy, UNIVERSITY TUTOR.DENTAL FLOSS PACKER [address] [facility] [place] [address] Candy Bar Attendant Internal Medicine 10/27/24 Management Intern Relationship Specialty Start Date End Date Galindo Yuan MD [address] [facility] [place] [address] PCP - General Internal Medicine 06/19/03 Sakshi Sanz MD [address] [place] [address] Primary Staff Physician Cardiology 02/04/19 Ana Mckoy, UNIVERSITY TUTOR.DENTAL FLOSS PACKER [address] [facility] [place] [address] Candy Bar Attendant Internal Medicine 10/27/24 Management Intern Relationship Specialty Start Date End Date Galindo Yuan MD [address] [facility] [place] [address] PCP - General Internal Medicine 06/19/03 Sakshi Sanz MD [address] [place] [address] Primary Staff Physician Cardiology 02/04/19 Ana cMkoy, UNIVERSITY TUTOR.DENTAL FLOSS PACKER [address] [facility] [place] [address] Candy Bar Attendant Internal Medicine 10/27/24 Management Intern Relationship Specialty Start Date End Date Galindo Yuan MD [address] [facility] [place] [address] PCP - General Internal Medicine 06/19/03 Sakshi Sanz MD [address] [place] [address] Primary Staff Physician Cardiology 02/04/19 Ana Mckoy, UNIVERSITY TUTOR.DENTAL FLOSS PACKER [address] [facility] [place] [address] Candy Bar Attendant Internal Medicine 10/27/24 Management Intern Relationship Specialty Start Date End Date Galindo Yuan MD [address] [facility] [place] [address] PCP - General Internal Medicine 06/19/03 Sakshi Sanz MD [address] [place] [address] Primary Staff Physician Cardiology 02/04/19 Ana Mckoy, UNIVERSITY TUTOR.DENTAL FLOSS PACKER [address] [facility] [place] [address] Candy Bar Attendant Internal Medicine 10/27/24 Management Intern Relationship Specialty Start Date End Date Galindo Yuan MD [address] [facility] [place] [address] PCP - General Internal Medicine 06/19/03 Sakshi Sanz MD [address] [place] [address] Primary Staff Physician Cardiology 02/04/19 Ana Mckoy, UNIVERSITY TUTOR.DENTAL FLOSS PACKER [address] [facility] [place] [address] Candy Bar Attendant Internal Medicine 10/27/24 Management Intern Relationship Specialty Start Date End Date Galindo Yuan MD [address] [facility] [place] [address] PCP - General Internal Medicine 06/19/03 Sakshi Sanz MD [address] [place] [address] Primary Staff Physician Cardiology 02/04/19 Ana Mckoy, UNIVERSITY TUTOR.DENTAL FLOSS PACKER [address] [facility] [place] [address] Candy Bar Attendant Internal Medicine 10/27/24 Management Intern Relationship Specialty Start Date End Date Galindo Yuan MD [address] [facility] [place] [address] PCP - General Internal Medicine 06/19/03 Sakshi Sanz MD [address] [place] [address] Primary Staff Physician Cardiology 02/04/19 Ana Mckoy, UNIVERSITY TUTOR.DENTAL FLOSS PACKER [address] [facility] [place] [address] Candy Bar Attendant Internal Medicine 10/27/24 Management Intern Relationship Specialty Start Date End Date Galindo Yuan MD [address] [facility] [place] [address] PCP - General Internal Medicine 06/19/03 Sakshi Sanz MD [address] [place] [address] Primary Staff Physician Cardiology 02/04/19 Ana Mckoy, UNIVERSITY TUTOR.DENTAL FLOSS PACKER [address] [facility] [place] [address] Candy Bar Attendant Internal Medicine 10/27/24 Management Intern Relationship Specialty Start Date End Date Galindo Yuan MD [address] [facility] [place] [address] PCP - General Internal Medicine 06/19/03 Sakshi Sanz MD [address] [place] [address] Primary Staff Physician Cardiology 02/04/19 Ana Mckoy, UNIVERSITY TUTOR.DENTAL FLOSS PACKER [address] [facility] [place] [address] Candy Bar Attendant Internal Medicine 10/27/24 Management Intern Relationship Specialty Start Date End Date Galindo Yuan MD [address] [facility] [place] [address] PCP - General Internal Medicine 06/19/03 Sakshi Sanz MD [address] [place] [address] Primary Staff Physician Cardiology 02/04/19 Ana Mckoy, UNIVERSITY TUTOR.DENTAL FLOSS PACKER [address] [facility] [place] [address] Candy Bar Attendant Internal Medicine 10/27/24 Management Intern Relationship Specialty Start Date End Date Galindo Yuan MD [address] [facility] [place] [address] PCP - General Internal Medicine 06/19/03 Sakshi Sanz MD [address] [place] [address] Primary Staff Physician Cardiology 02/04/19 Ana Mckoy, UNIVERSITY TUTOR.DENTAL FLOSS PACKER [address] [facility] [place] [address] Candy Bar Attendant Internal Medicine 10/27/24 Management Intern Relationship Specialty Start Date End Date Galindo Yuan MD [address] [facility] [place] [address] PCP - General 08/16/10 Management Intern Relationship Specialty Start Date End Date Galindo Yuan MD [address] [facility] [place] [address] PCP - General Internal Medicine 06/19/03 Sakshi Sanz MD [address] [place] [address] Primary Staff Physician Cardiology 02/04/19 Aan Mckoy, UNIVERSITY TUTOR.DENTAL FLOSS PACKER [address] [facility] [place] [address] Candy Bar Attendant Internal Medicine 10/27/24 Management Intern Relationship Specialty Start Date End Date Galindo Yuan MD [address] [facility] [place] [address] PCP - General Internal Medicine 06/19/03 Sakshi Sanz MD [address] [place] [address] Primary Staff Physician Cardiology 02/04/19 Ana Mckoy, UNIVERSITY TUTOR.DENTAL FLOSS PACKER [address] [facility] [place] [address] Candy Bar Attendant Internal Medicine 10/27/24 Management Intern Relationship Specialty Start Date End Date Galindo Yuan MD [address] [facility] [place] [address] PCP - General Internal Medicine 06/19/03 Sakshi Sanz MD [address] [place] [address] Primary Staff Physician Cardiology 02/04/19 Ana Mckoy, UNIVERSITY TUTOR.DENTAL FLOSS PACKER [address] [facility] [place] [address] Candy Bar Attendant Internal Medicine 10/27/24 Management Intern Relationship Specialty Start Date End Date Galindo Yuan MD [address] [facility] [place] [address] PCP - General Internal Medicine 06/19/03 Sakshi Sanz MD [address] [place] [address] Primary Staff Physician Cardiology 02/04/19 Ana Mckoy, UNIVERSITY TUTOR.DENTAL FLOSS PACKER [address] [facility] [place] [address] Candy Bar Attendant Internal Medicine 10/27/24 Management Intern Relationship Specialty Start Date End Date Galindo Yuan MD [address] [place] [address] PCP - General 08/16/10 Management Intern Relationship Specialty Start Date End Date Galindo Yuan MD [address] [place] [address] PCP - General Internal Medicine 06/19/03 Sakshi Sanz MD [address] [place] [address] Primary Staff Physician Cardiology 02/04/19 Ana Mckoy, UNIVERSITY TUTOR.DENTAL FLOSS PACKER [address] [facility] [place] [address] Candy Bar Attendant Internal Medicine 10/27/24 Management Intern Relationship Specialty Start Date End Date Galindo Yuan MD [address] [facility] [place] [address] PCP - General Internal Medicine 06/19/03 Sakshi Sanz MD [address] [place] [address] Primary Staff Physician Cardiology 02/04/19 Ana Mckoy, UNIVERSITY TUTOR.DENTAL FLOSS PACKER [address] [facility] [place] [address] Candy Bar Attendant Internal Medicine 10/27/24 Management Intern Relationship Specialty Start Date End Date Galindo Yuan MD [address] [facility] [place] [address] PCP - General Internal Medicine 06/19/03 Sakshi Sanz MD [address] [place] [address] Primary Staff Physician Cardiology 02/04/19 Ana Mckoy, UNIVERSITY TUTOR.DENTAL FLOSS PACKER [address] [facility] [place] [address] Candy Bar Attendant Internal Medicine 10/27/24 Management Intern Relationship Specialty Start Date End Date Galindo Yuan MD [address] [facility] [place] [address] PCP - General Internal Medicine 06/19/03 Sakshi Sanz MD [address] [place] [address] Primary Staff Physician Cardiology 02/04/19 Ana Mckoy, UNIVERSITY TUTOR.DENTAL FLOSS PACKER [address] [facility] [place] [address] Candy Bar Attendant Internal Medicine 10/27/24 Management Intern Relationship Specialty Start Date End Date Galindo Yuan MD [address] [facility] [place] [address] PCP - General Internal Medicine 06/19/03 Sakshi Sanz MD [address] [place] [address] Primary Staff Physician Cardiology 02/04/19 Ana Mckoy, UNIVERSITY TUTOR.DENTAL FLOSS PACKER [address] [facility] [place] [address] Candy Bar Attendant Internal Medicine 10/27/24 Management Intern Relationship Specialty Start Date End Date Galindo Yuan MD [address] [facility] [place] [address] PCP - General Internal Medicine 06/19/03 Sakshi Sanz MD [address] [place] [address] Primary Staff Physician Cardiology 02/04/19 Ana Mckoy, UNIVERSITY TUTOR.DENTAL FLOSS PACKER [address] [facility] [place] [address] [facility] Internal Medicine 10/27/24 Management Intern Relationship Specialty Start Date End Date Galindo Yuan MD [address] [facility] [place] [address] PCP - General Internal Medicine 06/19/03 Sakshi Sanz MD [address] [place] [address] Primary Staff Physician Cardiology 02/04/19 Ana Mckoy, UNIVERSITY TUTOR.DENTAL FLOSS PACKER [address] [place] [address] [facility] Internal Medicine 10/27/24 Goals (unrecognized section and content) Goals may be documented in a n alternate sectionGoals may be documented in an alternate sectionGoals may be documented in an alternate sectionGoals may be documented in an alternate section FOR RECORDS PERTAINING TO PATIENTS WHO ARE OR HAVE BEEN ENROLLED IN A CHEMICAL DEPENDENCY/SUBSTANCEABUSE PROGRAM, SOME INFORMATION MAY BE OMITTED. This clinical summary was aggregated from multiple sources. Caution should be exercised in using it in the provision of clinical care. This summary normalizes information from multiple sources, and as a consequence, information in this document may materially change the coding, format and clinical context of patient data. In addition, data may be omitted in some cases. CLINICAL DECISIONS SHOULD BE BASED ON THE PRIMARY CLINICAL RECORDS. [facility]. provides no warranty or guarantee of the accuracy or completeness of information in this document.
[2025-10-11] MEDS: Heparin Injection (Vial) 5,000 UNIT/ML VIAL 4000 UNIT IV (17:03)
[2025-10-11] MEDS: HEPARIN/D5w 25,000 UNITS 25,000 UNITS/250 ML IV.SOLN. 10 UNITS CONT INF (17:03)
[2025-10-11] MEDS: Nitroglycerin Infusion 250 ML 3 MG CONT INF (17:08)
--- NOTE | 2025-10-11 17:21 | PCM.HP.STD ---
HPI - General General Date of Admission: 10/11/25 Date of Service: 10/11/25 Chief Complaint: Chest pain HPI Narrative JG CHAHAL, is a 85 M who presented to [facility] ED on 10/11/2025 with chest pain. Medical history significant for CAD with stenting, paroxysmal A-fib s/p pulmonary vein isolation, CKD stage IIIa, hypertension and hyperlipidemia. Patient lives at home with his , has fairly good functional status at baseline. He presents with intermittent chest pain/pressure for the past 4 days. He notes that the chest pain radiated up into his jaw and down the left upper extremity yesterday. The episode started at rest and he took a nitro with mild to moderate improvement in pain. He had another similar episode yesterday evening and had some relief of pain again with nitro. He had recurrence again today so he came in for further evaluation. In the ED he was hypertensive to the 160s to 170s systolic, was otherwise in normal sinus rhythm and stable on room air at rest. CBC and BMP were benign. EKG with no ischemic changes noted. Initial troponin level was 40. Given his presentation and history, ED physician started patient on heparin drip for NSTEMI and hospitalist was contacted for admission. I saw the patient at bedside in the ED, was present. Patient had been started on a nitro drip as well and he reported mild to moderate improvement in chest pain with this. He denied any other acute concerns currently. He has had 5 stents placed in the past, but last stenting was done over 10 years ago. Will be admitted for further management. [facility] Medical History Wears dentures Cancer Diabetes Ambulates with cane Arthritis History of renal disease Excessive bleeding Restless legs Back pain Gastric reflux Non-smoker CPAP (continuous positive airway pressure) dependence Sleep apnea Hypertension Cardiology follow-up encounter History of stress test History of echocardiogram Home Medications ?Medication ?Instructions ?Recorded ?Last Taken ?Type apixaban 5 mg tablet (Eliquis) 5 mg PO BID BLOOD THINNER 05/18/16 01/29/22 History atorvastatin 40 mg tablet 40 mg PO QHS CHOLESTEROL 05/18/16 01/31/22 History cholecalciferol (vitamin D3) 25 1,000 unit PO DAILY SUPPLEMENT 05/18/16 01/27/22 History mcg (1,000 unit) tablet (Vitamin D3) pantoprazole 40 mg tablet,delayed 40 mg PO DAILY GERD 05/18/16 01/31/22 History release nitroglycerin 0.4 mg sublingual 0.4 mg sublingual Q5M PRN Chest 05/23/16 01/31/22 Rx tablet Pain ##1 cyanocobalamin (vitamin B-12) 500 1,000 mcg PO DAILY@0800 SUPPLEMENT 11/23/16 01/27/22 History mcg tablet (B-12 DOTS) metoprolol succinate 25 mg 50 mg PO DAILY BP 06/24/17 01/31/22 History tablet,extended release 24 hr sennosides 8.6 mg-docusate sodium 2 tab PO DAILY STOOL SOFTENER 06/24/17 01/31/22 History 50 mg tablet (Stool Softener-Stimulant Laxative) losartan 50 mg tablet 50 mg PO DAILY BP 09/18/17 01/31/22 History amlodipine 5 mg tablet 2.5 mg PO DAILY BP 01/18/22 01/31/22 History dofetilide 250 mcg capsule 250 mcg PO Q12 HEART RATE 01/18/22 01/31/22 History magnesium oxide 400 mg (241.3 mg 400 mg PO DAILYCM SUPPLEMENT 01/18/22 01/27/22 History magnesium) tablet melatonin 3 mg tablet 3 mg PO QHS SLEEP 01/18/22 01/31/22 History meclizine 25 mg tablet 25 mg PO BID PRN dizziness #20 tabs 08/08/22 Unknown Rx Allergy/AdvReac Type Severity Reaction Status Date / Time adhesive tape Allergy Rash Verified 10/11/25 14:39 Latex, Natural Rubber Allergy Other Verified 10/11/25 14:39 codeine AdvReac Other Verified 10/11/25 14:39 hydrocodone bitartrate (From AdvReac Nausea Verified 10/11/25 14:39 Vicodin) meperidine HCl (From Demerol) AdvReac Other Verified 10/11/25 14:39 propoxyphene napsylate (From AdvReac Other Verified 10/11/25 14:39 Darvocet-N) Surgical History History of cardiac catheterization Hx of total hip arthroplasty History of back surgery Hx of prior ablation treatment History of coronary artery stent placement History of back surgery Hx of neck surgery History of shoulder surgery Hx of total knee replacement History of carpal tunnel release of both wrists Hx of total knee replacement Social History household members: spouse housing: house Smoking Status: Never smoker ROS Constitutional Constitutional: Reports fatigue; Denies chills, fever(s) or weakness Eyes Eyes: Denies change in vision Cardiovascular Cardiovascular: Reports chest pain; Denies dyspnea on exertion, edema, lightheadedness, orthopnea or palpitations Respiratory/Chest Respiratory/Chest: Denies cough, productive cough, shortness of breath at rest or wheezing Gastrointestinal Gastrointestinal: Denies abdominal pain, constipation, diarrhea, nausea or vomiting Musculoskeletal Musculoskeletal: Denies arthralgias or myalgias Neurologic Neurologic: Denies dizziness, focal weakness, headache(s), numbness or tingling Vital Signs Vital Signs Vital Signs: 10/11/25 14:39 10/11/25 17:08 Temperature 97.9 F Temperature Source Temporal Pulse Rate 75 70 Respiratory Rate 18 Blood Pressure 160/76 H 183/76 H Blood Pressure Mean 104 111 Pulse Ox 97 Oxygen Delivery Method Room Air Weight Weight: 96.661 kg Body Mass Index (BMI) 31.9 Physical Exam Const alert, oriented x3 and no apparent distress Constitutional Narrative: Elderly male, class I obesity, mildly fatigued appearing, otherwise sitting back fairly comfortably in bed, conversing normally, in no acute distress. General Appearance: cooperative and comfortable HEENT normocephalic, head/scalp atraumatic, hearing grossly normal bilaterally, nasal mucous membranes and turbinates normal and moist oral mucous membranes Eyes PERRL, EOMs intact bilaterally and conjunctivae normal Neck full ROM Chest inspection of chest normal Resp normal respiratory effort, normal air movement, no use of accessory muscles and clear to auscultation bilaterally Cardio regular rate, regular rhythm, no murmurs and peripheral pulses 2+ throughout GI normal to inspection, nondistended, normoactive bowel sounds, soft to palpation, non-tender and non-distended Back/Spine normal ROM Extremity normal to inspection, full ROM and no pedal edema Skin no rashes or lesions noted Psych mental status grossly normal Results Lab / Micro Data 10/11/25 14:59 10/11/25 14:59 Labs: Laboratory Results - last 24 hr 10/11/25 14:59: WBC 6.6, RBC 4.93, Hgb 14.1, Hct 42.5, MCV 86.2, MCH 28.6, MCHC 33.2, RDW Std Deviation 44.5 H, RDW Coeff of Nicholas 14.1, Plt Count 222, MPV 9.6, Immature Gran % (Auto) 0.300, Neut % (Auto) 63.1, Lymph % (Auto) 25.3, Dade % (Auto) 8.5, Eos % (Auto) 1.7, Baso % (Auto) 1.1 H, Absolute Neuts (auto) 4.1, Absolute Lymphs (auto) 1.66, Nucleated RBC % 0, Sodium 139, Potassium 3.9, Chloride 103, Carbon Dioxide 23.0, Anion Gap 13, BUN 19, Creatinine 1.28 H, Estim Creat Clear Calc 47.57 L, Est GFR (MDRD) Non-Af 55 L, BUN/Creatinine Ratio 14.5, Glucose 112 H, Calcium 9.3, Troponin T High Sens 40 H Imaging Radiology Impression Chest X-Ray 10/11/25 15:16 IMPRESSION: No focal consolidations. Reading Location: [facility] Assessment & Plan Assessment/Plan (1) NSTEMI, initial episode of care: PLAN: Plan Patient is an 85-year-old male who presented to [facility] ED on 10/11/2025 with chest pain. 1. NSTEMI ? Admit under inpatient status to PCU. Cardiology consulted. History of CAD with stenting as below. Presented with intermittent chest pain relieved with nitro. Troponin trend 40 > 37. EKG with normal sinus rhythm, no ST changes. Chest x-ray unremarkable. Will treat as NSTEMI type I given presentation and elevated troponins. Continue heparin drip. N.p.o. at midnight with plan for left heart cath tomorrow. Lipid panel and A1c ordered. Echocardiogram ordered. 2. History of CAD with stenting, paroxysmal A-fib with history of PVI, hypertension, hyperlipidemia ? Follows with [facility] cardiology. Unable to find full records but per patient, last stenting was done about 10 to 15 years ago. Has had 5 stents total placed. Had PVI for A-fib about 5 years ago, but has had recurrence of A-fib since then. Hypertensive to the 160s to 170s systolic in the ED, was stable in normal sinus rhythm. Continue home statin, dofetilide, amlodipine, losartan and Toprol. On heparin drip as above, will resume Eliquis when able. 3. CKD stage IIIa ? Creatinine 1.28 on admit, stable at baseline. 4. GERD ? Continue home PPI. DVT prophylaxis: Not indicated, on heparin drip CODE STATUS: Full code, verified Expected disposition: Home, TBD Total clinical time spent by myself addressing the patient's medical issues, reviewing all the data, and collaborating with patient's care team: 79 minutes. Charges/Coding Visit Charges Inpatient E&M: 48855 Init Hosp L3
[2025-10-11 17:29] LABS: Prothrombin Time (Protime)PT. 16.2 SECONDS (11.7-14.9)
[2025-10-11 17:30] LABS: Partial Thromboplast Time 32.6 Seconds (24.1-36.2)
--- OUTSIDE RECORDS SUMMARY | 2025-10-11 17:50 | XMS RPT_ITS | CCD ---
Author Organization [facility] CliniSyut Care Team Providers Care Boat Camp Operator Name Role Phone MARAL HUERTANETH Unavailable Unavailable Kwabena Galindo Unavailable Unavailable DEANNA, CHARLIE Unavailable Unavailable DEANNA, CHARLIE Unavailable Unavailable Kwabena, Galindo Unavailable Unavailable DEANNA, CHARLIE Unavailable Unavailable DEANNA, CHARLIE Unavailable Unavailable Galindo Yuan Unavailable Unavailable Opsitnick TANKER DRIVER-SOLAR SALES ASSOCIATE, Kemi Unavailable Galindo Yuan MD Primary Care Provider Sakshi Sanz MD Unavailable Un available Galindo Yuan MD Primary Care Provider [phone] Jonathan Sanz MDine Unavailable Un available Galindo [...] Unavailable GALINDO YUAN Primary Care Unavailable Ean TANKER DRIVERDION, Ana Fournier Unavailable RENAN BOWLING Admitting Unavailable [...] Attending Unavailable TESTALEX, JUAN Referring Unavailable YUAN, GALINDO Sam Primary Care [...] Propensity to adverse reactions (disorder) 12-07-19 12 [facility] Repository (20 sources) codeine; Translations: [CODEINE] Drug Allergy 07-18-20 05 Palpitations [facility] Repository (20 sources) Latex; Translations: [LATEX] Propensity to adverse reactions (disorder) 08-24-20 12 [facility] Repository (20 sources) meperidine; Translations: [MEPERIDINE HCL] Drug Allergy 08-27-20 09 Unknown [facility] Repository (20 sources) PROPOXYPHENE N-ACETAMINOPHEN; Translations: [PROPOXYPHENE N-ACETAMINOPHEN] Propensity to adverse reactions (disorder) 07-16-20 Intolerance, Itching, Palpitations [facility] Repository (1 source) Acetaminophen / Propoxyphene Drug Allergy 03-17-20 19 tachycardia [facility] Work Phone: (1 source) Adhesive Tape; Translations: [TAPE] allergy to substance 03-17-20 19 [facility] Work Phone: (1 source) Codeine Drug Allergy 03-17-20 19 tachycardia [facility] Work Phone: (1 source) Morphine Drug Allergy 03-17-20 19 vomiting [facility] Work Phone: (1 source) traMADol Drug Allergy 03-20-20 19 [facility] Work Phone: (5 sources) Adhesive Tape; Translations: [adhesive tape] Allergy to substance 08-08-20 Rash [facility] (5 sources) HYDROcodone; Translations: [hydrocodone bitartrate] Drug Allergy 08-08-20 22 Nausea [facility] (2 sources) Morphine Drug Allergy 08-08-20 Vomiting [facility] (4 sources) natural latex rubber Allergy to substance 08-08-20 Other [facility] (5 sources) Propoxyphene; Translations: [propoxyphene napsylate] Drug Allergy 08-08-20 Other [facility] (1 source) Morphine Drug Allergy 01-28-20 23 [facility] Repository (1 source) natural latex rubber Drug allergy (disorder) 10-12-20 [facility] Repository (2 sources) NSAIDs; Translations: [NSAIDS (NON-STEROIDAL ANTI-INFLAMMATORY DRUG)] Propensity to adverse reactions to drug (disorder) 03-16-20 Cardiac arrhythmia/arre st [facility] (1 source) ALLERGIES NOT ON FILE; Translations: [ALLERGIES NOT ON FILE] Propensity to adverse reactions (disorder) [facility] Medications Current Medications Medication Drug Class(es) Dates [...] on above: Take 4 tablets by mo [facility] as needed (1 hour before the [...] Start: 10-14-2013 take 1 capsule by mo [facility] once daily Cholecalciferol, Vitamin D3, 1,000 unit cap Take 1 capsule by mouth once daily. 0 10/14/2013 Active take 1 tablet by jennifer once daily cholecalciferol (Vitamin D3) 25 mcg (1,000 units) tablet Take 1 tablet (25 mcg) by mouth once daily. Active Comment on above: Take 1 capsule by mo [facility] once daily. ciclopirox 7.7 mg/ml topical [...] BEDTIME docusate sodium 50 mg / sennosides, shelter 8.6 mg oral tablet (8 sources) Start: [...] MC G CAPS 1 capsule daily DOFETILIDE [id number] Kelli Fitzpatrick LPN Start: 05-19-2016 End: 01-18-2022 [...] SL tablet Indications: Coronary artery disease of [place] artery of [place] heart with stable angina pectoris Dissolve 1 [...] 81 MG TBEC 1 tablet daily ASPIRIN [id number] Kelli Fitzpatrick LPN Start: 05-18-2016 End: 05-23-2016 take 81 mg by mouth once daily Aspirin Discontinued 81 MG PO DAILY@0800 May 17, 2016 11:00pm May 23, 2016 9:53am B [id number] (1 source) Start: 03-17-2019 B COMPLETE TABS 1 tablet daily B [id number] Kelli Fitzpatrick LPN Blood-Glucose Meter monitoring kit [...] on above: Take 1 capsule by mo [facility] at bedtime as needed for up to 14 days. CHOLECALCIFEROL (1 source) Start: 019 VITAMIN D 1000 UNIT TABS 1 tablet daily CHOLECALCIFEROL [id number] Kelli Fitzpatrick LPN Problems Active Problems Problem [...] Coronary arteriosclerosis; Translations: [Atherosclerotic heart disease of [place] coronary artery without angina pectoris] Onset: 6 [...] aftercare (1 source) Drug therapy finding; Translations: [prison (current) use of anticoagulants] 07-24-2024 Episodic Other [...] sources) Long-term current use of anticoagulant; Translations: [prison (current) use of anticoagulants] Onset: 10-12-2015 04-12-2018 Episodic Other aftercare (1 source) Encounter for therapeutic drug level monitoring; Translations: [Encounter for monitoring dofetilide therapy] Onset: 12-15-2024 Episodic Other aftercare (1 source) 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 VIVEK Aleman Matthew 09/21/2025 9:28 AM Signed Diabetes [...] (or decreased sensation in your feet) a slubber operator should always cut your toenails. Be Careful [...] shoes befo (more content not included)... Normal [facility] CNOVon 09-09-2025 CNOV Office Visit (STFLD) JG CHAHAL ([id number]) 1940 M Date Time Provider Department 09/09/25 1:40 PM RUTH PERLA STMAD During your visit today, we recorded the [...] BCC R superior forehead 03/13-Moh's, BCC left yazdanism s/p Mohs 03/26/2024, Left mid cheek s/p [...] Past Histories independently gathered by the clinical learning support assistant and the remaining scribed note accurately describes my personal service to the patient. DO Rob Robles Tyler, RN 09/09/2025 2:03 PM Signed Department of Dermatology [address] [place] [address] [address] [place] [address] SKIN CA (more content not included)... Normal [facility] CNOVon 08-03-2025 CNOV Office Visit (SLEWST) JG CHAHAL ([id number]) 1940 M Date Time Provider Department 08/03/25 [...] and replace equipment regularly and avoid ozone glass mould cleaner. Advised pt not to drive or [...] 1 caps (more content not included)... [facility] Telephone (FuturlinkD) JG CHAHAL ([id number]) 1940 M Date Time Provider Department 07/23/25 RUTH PERLA [facility] During your visit today, we recorded [...] [E78.6] 07/18/2005 02/19/2017 Coronary artery disease of [place] artery of yasmine*02/02/2006 Personal history of other [...] Neck pain (more content not included)... Normal [facility] XR CHEST 2V FRONTAL/LATon XR [...] shoulder arthroplasty IMPRESSION: No acute radiographic abnormality. Shafting Worker: PSCB Transcribe Date/Time: Jun 26 2025 10:48A Dictated by : DAMIEN MELCHOR MD This examination was interpreted and the report reviewed and electronically signed by: DAMIEN MELCHOR MD on Jun 26 2025 10:50AM EST [id number] Normal [facility] ALBUMIN/CREATININE RATIO, UR INEon 06-23-2025 Albumin DL <= 20 mg/L (U) [Mass/Vol] mg/dL Normal [facility] Comment on above: Order Comment: Speci men Type: URINE SPECIMENOrdering Facility: [facility] Address: [address] [place] [address] Performed By: #### U ACR ####[facility] LABCLIA [id number] [place] [address] [place] Albumin/Creatinine (U) [Mass ratio] <8 Normal <30 [facility] Comment on above: Order Comment: Speci men Type: URINE SPECIMENOrdering Facility: [facility] Address: [address] [place] [address] Result Comment: Adul t Male and Female Nephrotic Criteria: <30 mg/g is considered normal to mildly increased 30-300 mg/g is considered moderately increased >300 mg/g is considered severely increased KDIGO. (2013). KDIGO 2012 Clinical Practice Guideline for the Evaluation and Management of Chronic Kidney Disease. Official Journal of the International Society of Nephrology, 3(1), 1-150. Performed By: #### U ACR ####[facility] LABCLIA [id number] [place] [address] [place] Creatinine (U) [Mass/Vol] 141.9 mg/dL Normal 20.0-300.0 [facility] Comment on above: Order Comment: Speci men Type: URINE SPECIMENOrdering Facility: [facility] Address: [address] [place] [address] Performed By: #### U ACR ####[facility] LABCLIA [id number] [place] [id number] [place] CNOVon 06-23-2025 CNOV Office Visit (INTMWS) JG CHAHAL ([id number]) 1940 M Date Time Provider Department 06/23/25 [...] Sakshi Sanz MD (Cardiology, EPS) Ana Mckoy, TANKER DRIVER.SOLAR SALES ASSOCIATE as Receptionist/Telephone Operator (Internal Medicine) Renan Bah MD (Cardiology) Ruth Perla DO (Dermatology) Rashaun Manning MD (Neurology-Sleep Medicine) Renan Bowling MD (Pain management) Juan Torres DPShantanu (Podiatry) Odin Ochoa MD ([facility], Neurosurgery) Uri Diggs MD (Ophthalmology, [facility]). Medical/Family history review Reviewed and updated problem [...] of Multiple Sites Coronary Artery Disease of [place] Artery of [place] Heart With Stable Angina Pectoris Personal history [...] EGD ESOPHAGOGASTRODUODEN OSCOPY TRANSORAL DIAGNOSTIC 05/11/2011 EGD [id number] RENE SENZA SPINAL CORD STIMULATOR 04/10/2025 Perc. Thoracic Spinal Cord Stim. Generator and electrode implant. (more content not included)... Normal [facility] HEMOGLOBIN A1C (POC)on 06-23 HbA1c (Bld) [Mass fraction] 5.9 % Abnormal 4.3 - 5.6 % [facility] Comment on above: [id number] Location:[address], [place], [address] Point of care (POC) Hemoglobin A1c (HGBA1C) [...] specific diabetes management situations: The POC device stator connector provides a normal range of 4.2% to 6.5% for the HGBA1C POC test. However, the [place] Diabetes [employer] guidelines indicate that patients with [...] Interpretation and review of laboratory results Abnormal [facility] CNOVon 06-16-2025 CNOV Office Visit (PODIWS) JG CHAHAL ([id number]) 1940 M Date Time Provider Department 06/16/25 [...] (or decreased sensation in your feet) a slubber operator should always cut your toenails. Be Careful [...] injury and (more content not included)... Normal [facility] [id number] 06-08-2025 [id number] HNO ID: [id number] Author: ULISSES FOX PT Service: ? Author Type: Physical Therapist Type: [id number] Filed: 06/08/2025 15:56 Note Text: [facility] Rehabilitation and Sports Therapy Physical Therapy Plan of Care Certification Patient Name: Jg Chahal : 1940 [facility] #: [id number] Date: 06/08/2025 To: Galindo Yuan MD From [...] increase T-score by a minimum 5 points. [place] in home exercise program. Patient will demonstrate [...] Planned: 4 Planned Treatment Interventions: Therapeutic exercise (26709), Therapeutic activities (96665), Neuromuscular re-education (83836), Manual therapy (24685), Gait Training (81548), Self-halfway management (55624), Patient/Family/Careg iver Education, Body Mechanics Training PLAN [...] reviewed the treatment plan for Jg Chahal, [facility]# [id number] for the period of 06/08/25 -- 07/20/25, established on 06/08/2025. Signature certifies the need for therapy services. Normal [facility] CNTHERAPYon 06-08-2025 CNTHERAPY OT/PT/Speech Visit (PTWS) JG CHAHAL ([id number]) 1940 M Date Time Provider Department 06/08/25 9:00 AM ULISSES FOX PTWS Date Time Provider Department Center 06/08/2025 9:00 AM [id number], SEAN PTWS Mara Wilson Reason for Visit: [...] Take 1 tablet by mouth once daily. Economic Forecaster: Addendum Therapy (PT/OT/Speech/Resp) ID: [id number] 06/08/2025 9:29 AM Author: ULISSES FOX Signed by ULISSES FOX PT on 06/08/2025 at 9:29 AM * * * This document replaces document [id number] * * * Document text: Program_ID:[id number] Access Code: [email or web address] URL: [email or web address] Date: 06-08-2025 Prepared By: Ulisses Fox Program [...] 3 sets - 10 reps -------- Normal [facility] THERAPY NTon 06-08-2025 THERAPY NT HNO ID: [id number] Author: ULISSES FOX PT Service: ? Author Type: Physical Therapist Type: Therapy (PT/OT/Speech/Resp) Filed: 06/08/2025 09:29 Note Text: Program_ID:[id number] Access Code: [email or web address] URL: [email or web address] Date: 06-08-2025 Prepared By: Ulisses Fox Program [...] - 3 sets - 10 reps Normal [facility] CNOVon 05-21-2025 CNOV Office Visit (INTMWS) TIRSOJG Whalen ([id number]) 1940 M Date Time Provider Department 05/21/25 11:40 AM GALINDO YUAN INTMWS During your visit today, we recorded the following information about you: Pulse Respiration Blood pressure Weight 76/minute 16/minute 124/70 94.4 kg Galindo Yuan MD 05/21/2025 12:29 PM Signed This note was created using Enigmediater. Subjective Patient presents with: Discussion Jg Whalen Tirso is a 84 year old male. Recording using TwitJump software for draft documentation of the visit was discussed with the patient/authorized pharmaceutical sales representative; all questions welcomed and answered. Patient/authorized pharmaceutical sales representative agreed to proceed Lower Extremity [...] and generator placed on April 10 at [facility]. - Reports 50% pain relief in the [...] Order(s):CONSULT TO PHYSICAL THERAPY [9032] Order #: [id number]: 1 FUTURE Prescriptions as of 05/21/2025 - [...] DR (PROTONIX) (more content not included)... Normal [facility] Blood type and Indirect anti body screen panel (Bld)on 04-10-2025 ABO group Nom (Bld) O Normal [facility] Comment on above: Order Comment: As ne eded preprocedure ONCE for scheduled for aortic, liver, cardiac, or thoracic surgery OR hgb<7.5mg/dl and no active type and screen. RN to release order. Performed By: #### 3 4532-2 #### SAKSHI Whalen ([id number]) [facility] ([facility]) [id number] [place], [place] [id number] Blood group antibody screen Ql Negative [facility] Comment on above: Order Comment: As ne eded preprocedure ONCE for scheduled for aortic, liver, cardiac, or thoracic surgery OR hgb<7.5mg/dl and no active type and screen. RN to release order. Performed By: #### 3 4532-2 #### SAKSHI Whalen ([id number]) [facility] ([facility]) [address] [place], [place] [address] D Ag Ql (Bld) Positive [facility] Comment on above: Order Comment: As ne eded preprocedure ONCE for scheduled for aortic, liver, cardiac, or thoracic surgery OR hgb<7.5mg/dl and no active type and screen. RN to release order. Performed By: #### 3 4532-2 #### SAKSHI Whalen ([id number]) [facility] ([facility]) [address] [place] [address] FL FLUORO IMAGES NO CHARGEon 04-10-2025 FL FLUORO IMAGES NO CHARGE These images are not reportable by radiology and will not be interpreted by Radiologists. Normal [facility] Basic metabolic 2000 panelon 04-01-2025 Anion gap [Moles/Vol] 17 mmol/L Normal 10-20 [facility] Comment on above: Performed By: #### 2 4321-2 #### SAKSHI Whalen ([id number]) [facility] ([facility]) [address] [place] [address] Calcium [Mass/Vol] 9.4 mg/dL Normal 8.6-10.6 [facility] Comment on above: Performed By: #### 2 4321-2 #### SAKSHI Whalen ([id number]) [facility] ([facility]) [address] [place] [address] Chloride [Moles/Vol] 104 mmol/L Normal 98-107 [facility] Comment on above: Performed By: #### 2 4321-2 #### SAKSHI Whalen ([id number]) [facility] ([facility]) [address] [place] [address] CO2 [Moles/Vol] 23 mmol/L Normal 21-32 [facility] Comment on above: Performed By: #### 2 4321-2 #### SAKSHI Whalen ([id number]) [facility] ([facility]) [address] [place] [address] Creatinine [Mass/Vol] 1.16 mg/dL Normal 0.50-1.30 [facility] Comment on above: Performed By: #### 2 4321-2 #### SAKSHI Whalen ([id number]) [facility] ([facility]) [address] [place] [address] Glomerular filtration rate/1.73 sq M.predicted 62 mL/min/1.73m*2 Normal >60 [facility] Comment on above: Result Comment: Calc ulations of estimated GFR are performed using the 2020 CKD-EPI Study Refit equation without the race variable for the IDMS-Traceable creatinine methods. https://jasn.asnjournals.org/content//ASN.117 7846542 Performed By: #### 2 4321-2 #### SAKSHI Whalen (22225) [facility] ([facility]) [address] [place] [address] Glucose [Mass/Vol] 107 mg/dL High 74-99 [facility] Comment on above: Performed By: #### 2 4321-2 #### SAKSHI Whalen (11821) [facility] ([facility]) [address] [place] [address] Potassium [Moles/Vol] 4.4 mmol/L Normal 3.5-5.3 [facility] Comment on above: Performed By: #### 2 4321-2 #### SAKSHI Whalen (77238) [facility] ([facility]) [address] [place] [address] Sodium [Moles/Vol] 140 mmol/L Normal 136-145 [facility] Comment on above: Performed By: #### 2 4321-2 #### SAKSHI Whalen ([id number]) [facility] ([facility]) [address] [place] [address] Urea nitrogen [Mass/Vol] 20 mg/dL Normal 6-23 [facility] Comment on above: Performed By: #### 2 4321-2 #### SAKSHI Whalen ([id number]) [facility] ([facility]) [address] [place] [address] CBC panel Auto (Bld)on 04-01 Erythrocyte distribution width (RBC) [Ratio] 14.3 % Normal 11.5-14.5 [facility] Comment on above: Performed By: #### 5 8410-2 #### SAKSHI Whalen ([id number]) [facility] ([facility]) [address] [place] [address] Hematocrit (Bld) [Volume fraction] 44.3 % Normal 41.0-52.0 [facility] Comment on above: Performed By: #### 5 8410-2 #### SAKSHI Whalen ([id number]) [facility] ([facility]) [address] [place] [address] Hemoglobin (Bld) [Mass/Vol] 14.2 g/dL Normal 13.5-17.5 [facility] Comment on above: Performed By: #### 5 8410-2 #### SAKSHI Whalen (93766) [facility] ([facility]) [address] [place] [address] MCH (RBC) [Entitic mass] 27.8 pg Normal 26.0-34.0 [facility] Comment on above: Performed By: #### 5 8410-2 #### SAKSHI Whalen (98906) [facility] ([facility]) [address] [place] [address] MCHC (RBC) [Mass/Vol] 32.1 g/dL Normal 32.0-36.0 [facility] Comment on above: Performed By: #### 5 8410-2 #### SAKSHI Whalen ([id number]) [facility] ([facility]) [address] [place] [address] MCV (RBC) [Entitic vol] 87 fL Normal 80-100 U [facility] Comment on above: Performed By: #### 5 8410-2 #### SAKSHI Whalen ([id number]) [facility] ([facility]) [address] [place] [address] Nucleated RBC/100 WBC (Bld) [Ratio] 0.0 /100 WBCs Normal 0.0-0.0 [facility] Comment on above: Performed By: #### 5 8410-2 #### SAKSHI Whalen ([id number]) [facility] ([facility]) [address] [place] [address] Platelets (Bld) [#/Vol] 237 x10*3/uL Normal 150-450 [facility] Comment on above: Performed By: #### 5 8410-2 #### SAKSHI Whalen ([id number]) [facility] ([facility]) [address] [place] [address] RBC (Bld) [#/Vol] 5.11 x10*6/uL Normal 4.50-5.90 [facility] Comment on above: Performed By: #### 5 8410-2 #### SAKSHI Whalen (07769) [facility] ([facility]) [address] [place] [address] WBC (Bld) [#/Vol] 5.8 x10*3/uL Normal 4.4-11.3 [facility] Comment on above: Performed By: #### 5 8410-2 #### SAKSHI Whalen (10896) [facility] ([facility]) [address] [place] [address] CNPNon 04-01-2025 CNPN Telephone (AGCARDPOB) JG CHAHAL ([id number]) 1940 M Date Time Provider Department 04/01/25 ANURAG BAH AGCARDPOB During your visit today, we recorded the following information about you: Nicole Wolfe RN 04/01/2025 12:06 PM Signed Received fax from Perioperative Medicine. Blank form scanned to chart. Surgeon: Dr. Ochoa Surgery: Percutaneous thoracic spinal cord stimulator electrodes and generator placement Date: 04/10/25 Faxed/routed Dr. Bah's OV 03/23/25 addressing pre-operative recommendations to [phone]. VISH Londono Jennifer, LPN 04/10/2025 10:12 AM Signed Hebert called [facility] to notify Dr. Bah that patient was [...] [E78.6] 07/18/2005 02/19/2017 Coronary artery disease of [place] artery of yasmine*02/02/2006 Personal history of other [...] 2 diabe (more content not included)... Normal [facility] Staphylococcus aureus.methic illin resistant isolateon 04-01-2025 MRSA isol Org specific cx Ql (Nose) Test: Staphylococcus aureus/MRSA colonization, Culture Specimen Source: Nares/Axilla/Groin Specimen Type: Swab Specimen Date: 04/01/2025 1041 Result Date: 04/02/2025 1719 Result Status: Final result Abnormal: No Resulting Lab: [facility] [address] [place] [address] CULTURE No Staphylococcus aureus isolated Normal [facility] Comment on above: Performed By: #### 5 2969-3 #### SAKSHI Whalen ([id number]) [facility] ([facility]) [address] [place] [address] Comprehensive metabolic 2000 panelon 03-26-2025 Albumin [Mass/Vol] 4.3 g/dL Normal 3.9-4.9 [facility] Comment on above: Order Comment: Speci men Type: BLOOD SPECIMENOrdering Facility: [facility] Address: [address] [place] [address] Performed By: #### 2 4323-8, 35249-4 ####[facility] LABCLIA [id number] [place] [address] [place] ALP [Catalytic activity/Vol] 136 U/L High 38-113 [facility] Comment on above: Order Comment: Speci men Type: BLOOD SPECIMENOrdering Facility: [facility] Address: [address] [place] [address] Performed By: #### 2 4323-8, 71735-4 ####[facility] LABCLIA [id number] [place] [address] [place] ALT [Catalytic activity/Vol] 13 U/L Normal 10-54 [facility] Comment on above: Order Comment: Speci men Type: BLOOD SPECIMENOrdering Facility: [facility] Address: [address] [id number] Performed By: #### 2 4323-8, 73886-2 ####[facility] LABCLIA [id number] [address] [address] [place] Anion gap [Moles/Vol] 12 mmol/L Normal 8-15 [facility] Comment on above: Order Comment: Speci men Type: BLOOD SPECIMENOrdering Facility: [facility] Address: [address] [place] [address] Performed By: #### 2 4323-8, 86389-5 ####[facility] LABCLIA [id number] [place] [id number] [place] AST [Catalytic activity/Vol] 16 U/L Normal 14-40 [facility] Comment on above: Order Comment: Speci men Type: BLOOD SPECIMENOrdering Facility: [facility] Address: [address] [place] [address] Performed By: #### 2 4323-8, 33050-5 ####[facility] LABCLIA [id number] [place] [address] [place] Bilirubin [Mass/Vol] 1.0 mg/dL Normal 0.2-1.3 [facility] Comment on above: Order Comment: Speci men Type: BLOOD SPECIMENOrdering Facility: [facility] Address: [address] [place], [place] [address] Performed By: #### 2 4323-8, 02492-0 ####[facility] LABCLIA [id number] [address] [address] [place] Calcium [Mass/Vol] 9.8 mg/dL Normal 8.5-10.2 [facility] Comment on above: Order Comment: Speci men Type: BLOOD SPECIMENOrdering Facility: [facility] Address: [address] [place], [place] [address] Performed By: #### 2 4323-8, 18496-2 ####[facility] LABCLIA [id number] [address] [address] [place] Chloride [Moles/Vol] 104 mmol/L Normal 98-107 [facility] Comment on above: Order Comment: Speci men Type: BLOOD SPECIMENOrdering Facility: [facility] Address: [address] [place] [address] Performed By: #### 2 4323-8, 58403-2 ####[facility] LABIA [id number] [place] [address] [place] CO2 [Moles/Vol] 24 mmol/L Normal 22-30 [facility] Comment on above: Order Comment: Speci men Type: BLOOD SPECIMENOrdering Facility: [facility] Address: [address] [place] [address] Performed By: #### 2 4323-8, 55181-5 ####[facility] LABIA [id number] [place] [address] [place] Creatinine [Mass/Vol] 1.23 mg/dL High 0.73-1.22 [facility] Comment on above: Order Comment: Speci men Type: BLOOD SPECIMENOrdering Facility: [facility] Address: [address] [place] [address] Performed By: #### 2 4323-8, 60183-3 ####[facility] LABIA [id number] [place] [address] [place] Creatinine and Glomerular filtration rate.predicted panel (S/P/Bld) 58 mL/min/1.73m??? Low >=60 [facility] Comment on above: Order Comment: Speci men Type: BLOOD SPECIMENOrdering Facility: [facility] Address: [address] [place] [address] Result Comment: Janie mated Glomerular Filtration Rate [...] actual GFR. Performed By: #### 2 4323-8, ####[facility] LABCLIA [id number] [address] [address] [place] Glucose [Mass/Vol] 96 mg/dL Normal 74-99 [facility] Comment on above: Order Comment: Baldev bailey Type: BLOOD SPECIMENOrdering Facility: [facility] Address: [address] [place] [address] Result Comment: The [place] Diabetes Association (ADA) provides guidance for cutoff [...] Standards of Medical Care in Diabetes 2016, [place] Diabetes Association. Diabetes Care. 2016.39(Suppl 1). Performed By: #### 2 4323-8, ####[facility] LABCLIA [id number] [facility] [address] [address] [place] Potassium [Moles/Vol] 4.5 mmol/L Normal 3.7-5.1 [facility] Comment on above: Order Comment: Baldev bailey Type: BLOOD SPECIMENOrdering Facility: [facility] Address: [address] [place] [address] Performed By: #### 2 4323-8, ####[facility] LABCLIA [id number] [facility] [address] [address] [place] Protein [Mass/Vol] 7.0 g/dL Normal 6.3-8.0 [facility] Comment on above: Order Comment: Speci men Type: BLOOD SPECIMENOrdering Facility: [facility] Address: [address] [place] [address] Performed By: #### 2 4323-8, 83331-3 ####[facility] LABCLIA [id number] [address] [place] [address] [place] Sodium [Moles/Vol] 140 mmol/L Normal 136-144 [facility] Comment on above: Order Comment: Speci men Type: BLOOD SPECIMENOrdering Facility: [facility] Address: [address] [place] [address] Performed By: #### 2 4323-8, 93227-7 ####[facility] LABCLIA [id number] [address], [facility]95 [place] Urea nitrogen [Mass/Vol] 15 mg/dL Normal 9-24 [facility] Comment on above: Order Comment: Speci men Type: BLOOD SPECIMENOrdering Facility: [facility] Address: [address] [place] [address] Performed By: #### 2 4323-8, 94185-2 ####[facility] LABCLIA [id number] [address] [address] [place] Lipid 1996 panelon 5 Cholesterol [Mass/Vol] 95 mg/dL Normal <200 [facility] Comment on above: Order Comment: Speci men Type: BLOOD SPECIMENOrdering Facility: [facility] Address: [address] [place], [place] [address] Result Comment: <200 mg/dL, Desirable 200-239 mg/dL, Borderline high >239 mg/dL, High Performed By: #### 2 4323-8, 56142-8 ####[facility] LABCLIA [id number] [address] [place] [address] [place] Cholesterol in HDL [Mass/Vol] 35 mg/dL Low >39 [facility] Comment on above: Order Comment: Speci men Type: BLOOD SPECIMENOrdering Facility: [facility] Address: [address] [place] [address] Result Comment: 40-5 9 mg/dL, Acceptable >59 mg/dL, High: Negative risk factor for coronary heart disease <40 mg/dL, Low: Positive risk factor for coronary heart disease Performed By: #### 2 4323-8, 22594-9 ####[facility] LABCLIA [id number] [place] [address] [place] Cholesterol in LDL [Mass/Vol] 46 mg/dL Normal <100 [facility] Comment on above: Order Comment: Speci men Type: BLOOD SPECIMENOrdering Facility: [facility] Address: [address] [place] [address] Result Comment: <100 mg/dL, Optimal 100-129 mg/dL, Near optimal/above optimal 130-159 mg/dL, Borderline high 160-189 mg/dL, High >189 mg/dL, Very high Secondary prevention optimal LDL Cholesterol levels are recommended to be <70 mg/dL LDL cholesterol is calculated using the Donovan-NIH equation. Performed By: #### 2 4323-8, 89803-1 ####[facility] LABIA [id number] [place] [address] [place] Cholesterol in LDL/Cholesterol in HDL [Mass ratio] 1.31 {ratio} Normal <2.54 [facility] Comment on above: Order Comment: Sierrai men Type: BLOOD SPECIMENOrdering Facility: [facility] Address: [address] [place] [address] Result Comment: Refe rence: 1. National Cholesterol Education Program ATP III Guideline At-A-Glance Quick Desk Reference: National Heart, Lung, and Blood [place]. National Institutes of Health. 2001: NIH Publication No. 01-3305. 2. An International Atherosclerosis Society position paper: global recommendations for the management of dyslipidemia: executive summary, Atherosclerosis. 2014: 232(2):410-413. Performed By: #### 2 4323-8, 51598-0 ####[facility] LABCLIA [id number] [address] [place] [address] [place] Cholesterol in VLDL [Mass/Vol] 9 mg/dL Normal <30 [facility] Comment on above: Order Comment: Speci men Type: BLOOD SPECIMENOrdering Facility: [facility] Address: [address] [place] [address] Performed By: #### 2 4323-8, 16241-7 ####[facility] LABCLIA [id number] [address], [facility]95 [place] Cholesterol non HDL [Mass/Vol] 60 mg/dL Normal <130 [facility] Comment on above: Order Comment: Speci men Type: BLOOD SPECIMENOrdering Facility: [facility] Address: [address] [place] [address] Result Comment: <130 mg/dL, Optimal 130-159 mg/dL, Near optimal/above optimal 160-189 mg/dL, Borderline high 190-219 mg/dL, High >219 mg/dL, Very high Secondary prevention optimal non HDL Cholesterol levels are recommended to be <100 mg/dL Performed By: #### 2 4323-8, 94341-5 ####[facility] LABCLIA [id number] [place] [address] [place] Cholesterol.total/Choles terol in HDL [Mass ratio] 2.71 {ratio} Normal <5.10 [facility] Comment on above: Order Comment: Speci men Type: BLOOD SPECIMENOrdering Facility: [facility] Address: [address] [place] [address] Performed By: #### 2 4323-8, ####[facility] LABCLIA [id number] [address], [facility]95 [place] FASTING TIME 12 hrs Normal [facility] Comment on above: Order Comment: Speci men Type: BLOOD SPECIMENOrdering Facility: [facility] Address: [address] [place] [address] Performed By: #### 2 4323-8, 19907-6 ####[facility] LABCLIA [id number] [place] [address] [place] Triglyceride [Mass/Vol] 61 mg/dL Normal <150 [facility] Comment on above: Order Comment: Speci men Type: BLOOD SPECIMENOrdering Facility: [facility] Address: [address] [place] [address] Result Comment: <150 mg/dL, Normal 150-199 mg/dL, Borderline high 200-499 mg/dL, High >499 mg/dL, Very high Performed By: #### 2 4323-8, 47023-0 ####[facility] LABIA [id number] [address] [place] CNOVon 03-23-2025 CNOV Office Visit (CARDWS) JG CHAHAL ([id number]) 1940 M Date Time Provider Department 03/23/25 11:20 AM ANURAG BAH During your visit today, we recorded the following information about you: Pulse Respiration Blood pressure Weight 77/minute 12/minute 114/66 95.7 kg Height 1.702 m Anurag Bah MD 03/23/2025 12:23 PM Signed [facility]IOLOG[facility] Cardiology ([address]) [address] [facility] [id number] OUTPATIENT VISIT DATE 03/23/2025 PRIMARY CARE PHYSICIAN: Galindo Yuan [address] [place] [address] HISTORY OF PRESENT ILLNESS: Mr. Chahal is a 84 year old gentleman with known coronary artery disease and prior coronary intervention, paroxysmal atrial fibrillation currently maintained on Tikosyn, hypertension, dyslipidemia and diabetes igf-lssybkp-mjhgjpxz g who presents for routine follow-up. Patient [...] Coronary atherosclerosis of unspecified type of vessel, [place] or graft 01/22/2006 moderate Diverticulosis of colon [...] Low HDL. Lumbago 08/26/2008 Dr. Odin Coon, [facility]. Rotator cuff tear, right 10/21/2012 Salmonella [...] MEDIALANDLAT COMPARTMENTS Left 10/01/2017 revision L TKA, [facility] CC ABLATION SVT 04/06/2017 EP study, [...] SOCIAL HISTO (more content not included)... Normal [facility] CNOVon 03-13-2025 CNOV Office Visit (DERSIN) JG CHAHAL ([id number]) 1940 M Date Time Provider Department 03/13/25 11:00 AM ATIF GRUBBS During your visit today, we recorded the following information about you: Pulse Blood pressure 80/minute 151/78 Atif Grubbs MD 03/13/2025 2:42 PM Signed [facility]AT[facility] REPORT SERVICE DATE: 03/13/2025 SERVICE TIME: 11:00 AM LOCATION: { [place]:[facility],[address] [place] [address] REFERRING PROVIDER: Miryam Hesnon [address] [facility] [address] PROCEDURE START TIME: 11:45 AM PROCEDURE END TIME: 12:30 PM SURGEON: Dr. Atif Grubbs RESIDENT: Dr. Pilar Joy ASSISTANT MEN'S SOCCER COACH: Marie Rangel MA ANTICOAGULANTS: Eliquis IMPLANTED DEVICES: [...] at Bedside: Inside pathology report # [id number], Date of Biopsy: 02/18/2025, and Biopsy Performed [...] OP INSTRUCTION (more content not included)... Normal [facility] CNOVon 03-12-2025 CNOV Office Visit (PODIWS) JG CHAHAL ([id number]) 1940 M Date Time Provider Department 03/12/25 [...] Pain, Diabetic Foot Care HUANG Ramirez Matthew 03/12/2025 8:38 AM Signed Last [...] (or decreased sensation in your feet) a slubber operator should always cut your toenails. Be Careful When Exercising Walk and exercise in comfortable shoes. Do not exercise when you have open sores on your feet. Protect Your Feet With Shoes a (more content not included)... Normal [facility] CNOVon 02-18-2025 CNOV Office Visit (STFLD) JG CHAHAL ([id number]) 1940 M Date Time Provider Department 02/18/25 [...] Personal history of NMSC: Yes: BCC left yazdanism s/p Mohs 03/26/2024, Left mid cheek s/p [...] abnormality, including cancer. In accordance with the [facility] policy, pre-procedure time out was performed to [...] involved w (more content not included)... Normal [facility] Pathology biopsy report Ryland (Tiss)on 02-18-2025 AP DISCLAIMER Normal [facility] Comment on above: Order Comment: Speci men Type: TISSUE SPECIMENOrdering Facility: [facility] Address: [address] [place] [address] Result Comment: Lila carroll Developed Test (LDT) Disclaimer: Performance characteristics of immunohistochemical, immunofluorescent, and chromogenic in-situ hybridization tests have been determined by the performing laboratory within [facility]'s [facility] Pathology and Laboratory Medicine Department ([facility], [facility], [facility], [facility], [facility], [facility], or [facility]) in a manner consistent with CLIA requirements. One or more of these tests may not have been cleared or approved by the FDA. [facility] is regulated under CLIA as qualified to perform high-complexity testing. These tests are used for clinical purposes. These should not be regarded as investigational or for research. Positive and negative controls stain appropriately. Performed By: #### 6 6121-5 ####[facility] LABCLIA [id number] [address] [address] [place] CASE REPORT Normal [facility] Comment on above: Order Comment: Speci men Type: TISSUE SPECIMENOrdering Facility: [facility] Address: [address] [place] [address] Result Comment: Surg [facility] Pathology Report Case: [id number] Authorizing Provider: Ruth Perla DO Collected: 02/18/2025 04:40 PM Ordering Location: Dermatology [facility] Received: 02/18/2025 07:48 PM Pathologist: Coco Min MD Specimens: A) - Skin, Shave Biopsy, A) R superior forehead B) - Skin, Shave Biopsy, B) L jaw line C) - Skin, Shave Biopsy, C) R lateral elbow Performed By: #### 6 6121-5 ####[facility] LABCLIA [id number] [address] [address] [place] CLINICAL HISTORY A) r/o ak vs scc vs bcc B) r/o lentigo vs lentigo maligna, C) r/o an vs sk Normal [facility] Comment on above: Order Comment: Speci men Type: TISSUE SPECIMENOrdering Facility: [facility] Address: [address] [place] [address] Performed By: #### 6 6121-5 ####[facility] LABCLIA [id number] [address] [place] FINAL DIAGNOSIS Normal [facility] Comment on above: Order Comment: Speci men Type: TISSUE SPECIMENOrdering Facility: [facility] Address: [address] [place] [address] Result Comment: A. S kin, right superior forehead, shave biopsy: - Basal cell carcinoma, superficial and nodular types. B. Skin, left jawline, shave biopsy: - Seborrheic keratosis. C. Skin, right lateral elbow, shave biopsy: - Seborrheic keratosis. CR 02/19/2025 at 1543 EDT Performed By: #### 6 6121-5 ####[facility] LABCLIA [id number] [address] [place] FINAL PERFORMING LAB Normal [facility] Comment on above: Order Comment: Speci men Type: TISSUE SPECIMENOrdering Facility: [facility] Address: [address] [place] [address] Result Comment: Diag nostic interpretation performed at: [facility], [address] [place], [place] [address] CLIA# [id number] Latcher: Damien Parker MD Performed By: #### 6 6121-5 ####[facility] LABCLIA [id number] [address] [place] GROSS DESCRIPTION Normal [facility] Comment on above: Order Comment: Speci men Type: TISSUE SPECIMENOrdering Facility: [facility] Address: [address] [place] [address] Result Comment: A. S kin, Shave Biopsy [...] is bisected. Totally submitted in one cassette. [facility] February 19, 2025 12:47 AM Gross examination performed at [facility], [address] [place] [address] Performed By: #### 6 6121-5 ####[facility] LABCLIA [id number] [address] Renetta 02-03-2025 CECIL Telephone (RHINANA) JG CHAHAL ([id number]) 1940 M Date Time Provider Department 02/03/25 RENAN BOWLING During your visit today, we recorded the following information about you: Mariella Kimball MA 02/03/2025 11:18 AM Signed Received a secure email from [place] ([email or web address]) that the patient has decided to have [...] been faxed to Dr. Ochoa's office at [phone] with confirmation received. Email has been forwarded to [facility] Imaging department to push over images to [...] [E78.6] 07/18/2005 02/19/2017 Coronary artery disease of [place] artery of yasmine*02/02/2006 Personal history of other [...] joint, sh (more content not included)... Normal [facility] MR Thoracic spine WO contras [...] and assume there are 5 lumbar-type vertebrae. Shafting Worker: [facility] Transcribe Date/Time: Jan 23 2025 10:01A Dictated by : KARLA SRIVASTAVA MD This examination was interpreted and the report reviewed and electronically signed by: KARLA SRIVASTAVA MD on Jan 23 2025 10:21AM [facility] DIVISION OF RADIOLOGY * * *Final Report* * * DATE OF EXAM: Jan 23 2025 8:27AM [facility] 0325 - MRI THORACIC SPINE WO [...] subarachnoid space without significant spinal canal stenosis. Kfgu-vf-ypirvzpe left foraminal stenosis at T9-T10. Mild to moderate right and mild left foraminal stenosis at T10-T11. DIVISION OF RADIOLOGY Provider, [facility] [place] - 01/23/2025 * * *Final Report* * [...] subarachnoid space without significant spinal canal stenosis. Onpo-wq-keanrqrz left foraminal stenosis at T9-T10. Mild to [...] and assume there are 5 lumbar-type vertebrae. Shafting Worker: [facility] Transcribe Date/Time: Jan 23 2025 10:01A Dictated by : KARLA SRIVASTAVA MD This examination was interpreted and the report reviewed and electronically signed by: KARLA SRIVASTAVA MD on Jan 23 2025 10:21AM EST [facility] Radiology Study observation (narrative) [facility] MR Thoracic spine WO contras tOrdered By: [facility]cf Provider on 01-23-2025 [facility] MRI THORACIC SPINE WO IVCONo n 01-23-2025 MRI THORACIC SPINE WO IVCON * * *Final Report* * * DATE OF EXAM: Jan 23 2025 8:27AM [facility] 0325 - MRI THORACIC SPINE WO [...] subarachnoid space without significant spinal canal stenosis. Yphl-ha-dcrrfcjo left foraminal stenosis at T9-T10. Mild to [...] and assume there are 5 lumbar-type vertebrae. Shafting Worker: [facility] Transcribe Date/Time: Jan 23 2025 10:01A Dictated by : KARLA SRIVASTAVA MD This examination was interpreted and the report reviewed and electronically signed by: KARLA RSIVASTAVA MD on Jan 23 2025 10:21AM EST [id number] Normal [facility] CNOVon 01-21-2025 CNOV Office Visit (PNMDNA) JG CHAHAL ([id number]) 1940 M Date Time Provider Department 01/21/25 10:30 AM RENAN BOWLING PNMDNA During your visit today, we recorded the following information about you: Pulse Weight 89/minute 96.9 kg Renan Bowling MD 01/21/2025 11:31 AM Signed [facility] Date: January 21, 2025 - 10:24 AM Chief Complaint: Back and leg pain SUBJECTIVE: Mr. Chahal presents to the [facility] for a follow up appointment [...] Coronary atherosclerosis of unspecified type of vessel, [place] or graft 01/22/2006 moderate Diverticulosis of colon [...] Low HDL. Lumbago 08/26/2008 Dr. Odin Coon, [facility]. Rotator cuff tear, right 10/21/2012 Salmonella [...] MEDIALANDLAT COMPARTMENTS Left 10/01/2017 revision L TKA, [facility] CC ABLATION SVT 04/06/2017 EP study, ablation for A.fib. COLONOSCOPY FLX DX W/COLLJ (more content not included)... Normal [facility] ANES POSTPROC EVALon 025 ANES POSTPROC EVAL HNO ID: [id number] Author: IGNACIO FRANCISCO MD Service: Anesthesiology Author Type: Physician Type: Anesthesia Postprocedure Evaluation Filed: 01/14/2025 10:07 Note Text: POST ANESTHESIA EVALUATION NOTE : 1940 Procedure Summary Date: 01/14/25 Room / Location: [place] OR02 / [place] Anesthesia Start: 736 [...] January 14, 2025 TIME: 10:07 AM CSN: [id number] [facility] ANES PRE-OPon 01-14-2025 ANES PRE-OP HNO ID: [id number] Author: IGNACIO FRANCISCO MD Service: Anesthesiology Author Type: Physician Type: Anesthesia Preprocedure Evaluation Filed: 01/14/2025 07:34 Note Text: ANESTHESIOLOGY DAY OF SURGERY NOTE : 1940 Procedure Information Date/Time: 01/14/25729 Procedure: PERCUTANEOUS IMPLANT LEAD NEUROSTIM EPIDURAL TRIAL (Spine) [place]: Renan Bowling MD Estimated body mass index is 31.32 kg/m? as calculated from the following: Height as of this encounter: 170.2 cm (5' 7). Weight as of this encounter: 90.7 kg (200 lb). 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 Ouvn-ww-pnvu rotation is limited.. Beta Rebeca Monitoring Plan Monitoring plan: Standard ASA. Post Procedure Analgesic Plan Postoperative analgesic plan: parenteral or oral opioids and multimodal analgesia. Informed Consent Anesthetic risks, benefits, alternatives, personnel and consent discussed: yes. Patient / Responsible Democrat agrees to proceed: yes Patient / Surrogate [...] CSN: [id number] (more content not included)... Normal [facility] HISTORY PHYSICALon HISTORY PHYSICAL HNO ID: [id number] Author: RENAN BOWLING MD Service: Pain Management [...] Coronary atherosclerosis of unspecified type of vessel, tuluks[place] or graft 01/22/2006 moderate Diverticulosis of colon [...] Low HDL. Lumbago 08/26/2008 Dr. Odin Coon, [facility]. Rotator cuff tear, right 10/21/2012 Salmonella [...] MEDIALANDLAT COMPARTMENTS Left 10/01/2017 revision L TKA, [facility] CC ABLATION SVT 04/06/2017 EP study, [...] alert and oscar (more content not included)... [facility] OPERATIVE NOon 01-14-2025 OPERATIVE NO HNO ID: [id number] Author: RENAN BOWLING MD Service: Pain Management [...] DATE: January 14, 2025 TIME: 8:47 AM [facility] XR FLUOROSCOPYon 01-14-2025 XR FLUOROSCOPY * * [...] to the performing LIP's report for details. Shafting Worker: BERENICE Transcribe Date/Time: Jan 14 2025 9:45A Dictated by : MONTSE CARMEN DO This examination was interpreted and the report reviewed and electronically signed by: MONTSE CARMEN DO on Jan 14 2025 9:46AM EST [id number] CN [facility] CNCOon 01-02-2025 CNCO Letter Text [facility] CNPNon 01-02-2025 CNPN Telephone (PNMDNA) JG CHAHAL ([id number]) 1940 M Date Time Provider Department 01/02/25 [...] professional (such as master's or licensed clinical psychiatric social worker supervisor) to receive this device, (d) tried other [...] score 21% or more Appeal faxed to [phone] (EXPEDITED). Secure email sent to PreAccess Denials [...] on 01/02/2025 has been approved. Under auth# [id number] valid from 01/05/2025 - 07/05/2025. Attempted to [...] Dx: Typ (more content not included)... Normal [facility] HISTORY PHYSICALon HISTORY PHYSICAL HNO ID: [id number] Author: WILLIAM VANN PA-C Service: ? 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 Denies any recent chest pain or SOB. No Nitro in months. Hypercholesteremia Assessment: taking statin, PCP following Paroxysmal atrial fibrillation (HCC) Assessment: taking tikosyn, metoprolol and Eliquis, history of ablation 03/2017 Follows with Cardiology in [place], and EP at , last OV with [...] STOP-Bang Score: (+ETHAN- uses CPAP nightly ) [id number] Score: Age: >=75 Sex: male CHF history: No Hypertension history: Yes Stroke/TIA/thromboem bolism history: No Vascular disease history: No Diabetes history: Yes [id number] Score: 4 ANESTHESIA FINDINGS: Intubation History: No [...] encounter. This is a virtual visit using Kinetic video visit. It required patient-provider interaction for [...] scheduled for (more content not included)... Normal [facility] CNOVon 12-23-2024 CNOV Office Visit (INTMWS) JG CHAHAL ([id number]) 1940 M Date Time Provider Department 12/23/24 8:40 AM GALINDO YUAN INTMWS During your visit today, we recorded the following information about you: Temperature Pulse Respiration Blood pressure 98.5 degrees 64/minute 16/minute 126/72 Weight 97.2 kg Galindo Yuan MD 12/23/2024 9:19 AM Signed This note was created using LocalMedriter. Subjective Jg Chahal is a 84 year [...] of Multiple Sites Coronary Artery Disease of [place] Artery of [place] Heart With Stable Angina Pectoris (Hcc) Personal [...] done: Me (more content not included)... Normal [facility] CNPNon 12-23-2024 [facility] Telephone (INTMWS) TIRSOJG ([id number]) 1940 M Date Time Provider Department 12/23/24 [...] [E78.6] 07/18/2005 02/19/2017 Coronary artery disease of tuluks[place] artery of yasmine*02/02/2006 Personal history of other [...] carcinoma [C44.9 (more content not included)... Normal [facility] Basic metabolic 2000 panelon 12-15-2024 Anion gap [Moles/Vol] 8 mmol/L Normal 8-15 [facility] Comment on above: Order Comment: Speci men Type: BLOOD SPECIMENOrdering Facility: [facility] Address: [address] [place] [address] Performed By: #### 1 9123-9, 71038-2 ####[facility]ITALSHREYAA [id number] [place] [address] [place] Calcium [Mass/Vol] 9.9 mg/dL Normal 8.5-10.2 [facility] Comment on above: Order Comment: Speci men Type: BLOOD SPECIMENOrdering Facility: [facility] Address: [address] [place] [address] Performed By: #### 1 9123-9, 95148-7 ####[facility]ALSARAH [id number] [place] [address] [place] Chloride [Moles/Vol] 100 mmol/L Normal 98-107 [facility] Comment on above: Order Comment: Speci men Type: BLOOD SPECIMENOrdering Facility: [facility] Address: [address] [place] [address] Performed By: #### 1 9123-9, 59670-8 ####[facility] [id number] [place] [address] [place] CO2 [Moles/Vol] 27 mmol/L Normal 22-30 [facility] Comment on above: Order Comment: Speci men Type: BLOOD SPECIMENOrdering Facility: [facility] Address: [address] [place] [address] Performed By: #### 1 9123-9, 41859-3 ####[facility] [id number] [place] [address] [place] Creatinine [Mass/Vol] 1.24 mg/dL High 0.73-1.22 [facility] Comment on above: Order Comment: Speci men Type: BLOOD SPECIMENOrdering Facility: [facility] Address: [address] [place], [place] [address] Performed By: #### 1 9123-9, 94371-3 ####[facility]ITALNCLIA [id number] [place] [address] [place] Creatinine and Glomerular filtration rate.predicted panel (S/P/Bld) 57 mL/min/1.73m??? Low >=60 [facility] Comment on above: Order Comment: Baldev bailey Type: BLOOD SPECIMENOrdering Facility: [facility] Address: [address] [place] [address] Result Comment: Janie mated Glomerular Filtration Rate [...] actual GFR. Performed By: #### 1 9123-9, 93706-7 ####[facility] [id number] [place] [address] [place] Glucose [Mass/Vol] 107 mg/dL High 74-99 [facility] Comment on above: Order Comment: Baldev bailey Type: BLOOD SPECIMENOrdering Facility: [facility] Address: [address] [place] [address] Result Comment: The [place] Diabetes Association (ADA) provides guidance for cutoff [...] Standards of Medical Care in Diabetes 2016, [place] Diabetes Association. Diabetes Care. 2016.39(Suppl 1). Performed By: #### 1 9123-9, 70516-7 ####[facility] LUISJUDEA [id number] [place] [address] [place] Potassium [Moles/Vol] 4.2 mmol/L Normal 3.7-5.1 [facility] Comment on above: Order Comment: Speci men Type: BLOOD SPECIMENOrdering Facility: [facility] Address: [address] [place] [address] Performed By: #### 1 9123-9, 52884-3 ####[facility] JESSICA [id number] [place] [address] [place] Sodium [Moles/Vol] 135 mmol/L Low 136-144 [facility] Comment on above: Order Comment: Speci men Type: BLOOD SPECIMENOrdering Facility: [facility] Address: [address] [place] [address] Performed By: #### 1 9123-9, 44815-5 ####[facility] JESSICA [id number] [place] [address] [place] Urea nitrogen [Mass/Vol] 16 mg/dL Normal 9-24 [facility] Comment on above: Order Comment: Speci men Type: BLOOD SPECIMENOrdering Facility: [facility] Address: [address] [place] [address] Performed By: #### 1 9123-9, 13420-6 ####[facility]ITALNICOLELIA [id number] [place] [address] [place] Magnesium SerPl-mCncon 12-15 Magnesium [Mass/Vol] 2.2 mg/dL Normal 1.7-2.3 [facility] Comment on above: Order Comment: Speci men Type: BLOOD SPECIMENOrdering Facility: [facility] Address: [address] [place] [address] Performed By: #### 1 9123-9, 06686-6 ####[facility] SIUSARAH [id number] [place] [address] [facility] CNOVon 12-11-2024 CNOV Office Visit (PODIWS) JG CHAHAL ([id number]) 1940 M Date Time Provider Department 12/11/24 [...] (or decreased sensation in your feet) a slubber operator should always cut your toenails. Be Careful [...] Go to your health care provider or slubber operator to treat these conditions. Juan Torres 12/11/2024 8:58 AM Signed Last saw pcp: 12/05/24 Subjective: Patient presents to clinic c/o painful toenails. They state that the nails are especially painful with shoe gear and pressure. Patient admits to being diabetic. No other pedal complaints at this time. Patient states no change in medications or medical history since last visit. Objective: Patien (more content not included)... 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 [facility], [facility] (POC)on 2024 BILIRUBIN UA (POCT) Negative Negative [facility] CLARITY UA (POCT) Clear [facility] COLOR UA (POCT) Yellow [facility] GLUCOSE UA (POCT) Negative Negative mg/dL [facility] Hemoglobin Ql (U) Trace-intact Abnormal Negative [facility] Interpretation and review of laboratory results Abnormal [facility] KETONE UA (POCT) Negative Negative mg/dL [facility] LEUKOCYTES UA (POCT) Negative Negative [facility] NITRITE UA (POCT) Negative Negative [facility] PH UA (POCT) 6.0 4.5 - 8.0 [facility] Protein Ql (U) Negative Negative mg/dL [facility] SPECIFIC GRAVITY UA (POCT) 1.020 1.005 - 1.030 [facility] UROBILINOGEN UA (POCT) 0.2 Yuni l E.U./dL [facility] Location:[address], [place], [place], [id number] [place] [address] POINT OF CARE [facility] CNPMaría 12-03-2024 CNPN Telephone (PNMDNA) CHAHALJG VICTORIA ([id number]) 1940 M Date Time Provider Department 12/03/24 [...] to schedule consult for permanent SCS implantation ([phone]). Patient verbalized understanding with no additional questions or concerns at this time. Email sent to [employer] sales representative informing of OR date and follow-up office visit. Procedure order pended for provider review. 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 [facility] Telephone (BALJINDER) CHAHALJG VICTORIA ([id number]) 1940 M Date Time Provider Department 11/24/24 RENAN BOWLING During your visit today, we recorded the following information about you: Petr Mccall RN 11/24/2024 12:48 PM Signed Patient's granddaughter contacted Pain Management with [facility] on 11/24/2024 at 1238 inquiring if patient can schedule with a provider other than Dr. Pop for his psychological testing prior to his spinal cord stimulator (SCS) trial. Patient's granddaughter stating that patient has been unable to schedule an appointment with Dr. Pop. Patient's granddaughter requesting return telephone call at [phone]. CRISTIN: 10/01/2024 w/Dr. 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 [facility] Nurse Visit (FAMPWS) JG CHAHAL ([id number]) 1940 M Date Time Provider Department 11/05/24 11:30 AM [facility] N[facility]SE FAMPWS During your visit today, we recorded the following information about you: Sussy Ng LPN 11/05/2024 11:05 AM Signed Patient presents for Flu vaccine. Denies any problems at this time. Tolerated injection well. 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 Normal [facility] Renetta 10-13-2024 CNPN Telephone (RHINANA) JG CHAHAL ([id number]) 1940 M Date Time Provider Department 10/13/24 RENAN BOWLING During your visit today, we recorded the following information about you: Petr Mccall RN 10/13/2024 9:40 AM Signed Thoracic XRAY obtained for potential spinal cord stimulator (SCS) trial. Ethonovat message sent. Petr Mccall RN 10/14/2024 8:49 AM Signed Kinetic message read: Last read by Jr Chahal [...] Insulin: No - TENS unit and electrodes [facility] as instructed. 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 Normal [facility] XR THORACIC 2V AP/LATon 11- [...] fracture. Degenerative disease of the thoracic spine. Shafting Worker: BERENICE Transcribe Date/Time: Oct 07 2024 3:35P Dictated by : SUSSY BOLES MD This examination was interpreted and the report reviewed and electronically signed by: SUSSY BOLES MD on Oct 07 2024 3:39PM EST [id number] Normal [facility] CNOVon 10-01-2024 CNOV Office Visit (PNMDNA) JG CHAHAL ([id number]) 1940 M Date Time Provider Department 10/01/24 9:30 AM RENAN BOWLING PNFLASH During your visit today, we recorded the following information about you: Pulse Weight 74/minute 96.7 kg Renan Bowling MD 10/01/2024 10:38 AM Signed [facility] Date: October 01, 2024 - 9:20 AM Chief Complaint: back and leg pain SUBJECTIVE: Mr. Chaahl presents to the [facility] for a follow up appointment regarding chronic [...] is not currently receiving medications through the [facility]. REVIEW OF SYSTEMS: Constitutional: (-) Fever (-) [...] Coronary atherosclerosis of unspecified type of vessel, tuluks[place] or graft 01/22/2006 moderate Diverticulosis of colon [...] Low HDL. Lumbago 08/26/2008 Dr. Odin Coon, [facility]. Rotator cuff tear, right 10/21/2012 Salmonella [...] 10/01/2017 linda (more content not included)... Normal [facility] SURGICAL PATHOLOGYOrdered By : Luis Felipe Muniz on 09-23-2024 Case Report Surgical Pathology Report Case: [id number] Authorizing Provider: Maryellen Mitchell MD Collected: 09/22/2024 03:05 PM Ordering Location: Dermatology Received: 09/22/2024 04:31 PM Pathologist: Luis Felipe Muniz MD, PhD Specimen: Skin, Excision, left glabella [facility] Work Phone: Clinical History z2lquEDrOIGqg8lyPLEf bGFuZzEwMzNcZnRuYmp7 XHWzexS3Glx9IWMxVUwc jD6nNSUpTEleC9cwryLx oKPwWPNkGSn0nE5zxRto nA2lOjKcTdMkDINwuVFo oh76HD2zd9JeLFCtxVQi SUYyjl3lHYjyG1oxH6vk lBUaQ0qid0wxIAGezJ== [facility] Work Phone: FINAL DIAGNOSIS f5rtyKWjDJYevGIjLZtc AndvfsDrYMIucGShB2Pb cnauZEiwQW0yKE9wcCpr iRMxkRExPNTeIoDvy3wa x995xVRjt0shDKELwhov jMd2dMinM89po7R7Fpmy H32emJRyQCT4KHGsNZEw kWNkDKFmOXR6VUIaaKHi D7vcNNAuIM3iojnaIRxr MAndWIEkgQO3IMVjnRCq K3VmYTEfBBcaPMDrezx8 QoPjUq0bpPIlfYgbTJvg YXJkXHBsYWluXGZzMjAg PD2tF2hsvbkwvWCjdLRm bGFiZWxsYSwgZXhjaXNp s358OOUzpsNiHSDtKaJf MT17fpZisGLorjJfVQRy XR1bGGIggvAqEUsbzBPg IYMluSSgSU0brbMxDFFq b90vzAV4RQk1LYG1Y4bn ZWQuXHBhciAtIFNlYmFj GB81pjAlBFEse74eGJcj TG5ipXDqGNXwwHyfnHMu BtRrvHIfUXXsccFAJj7O YqKoRM6xYQ3kNGovAES9 [facility] Work Phone: Gross Description f0rzzKSuGIFaaTBRDYB1 QUWmBG0xtPbmvWj5vZpz GROcbeG0lDXiONvky6kq WFT1a0qdvgWLHxpuTCLc NM0rHCffCFPzTS3eNtLp XGRlZmYxXHBhcGVydzEy DvCaCADpkNOptRB4TGRq AB6xjczrDFvdFBjnRJQi lsQ3OMUxwLIzI9TzIMVn XL5oxsjiMMX4KNFIPvzo Tb2pzOBwxRtmPrQmSjHc BFYlAEVmUZLbs5neceKF pygoyYd1eO5BCOExG9Qq US7Fh4adURIknOJgPJR6 NAghw2ewTNoiCBL9OLOs XSXcCJBkLU4TUzTaVTp9 ZrH1Yod9QjQ0BHt5GBJC HBHsXAC1BkF3CCCzTSp3 OTkgXFxuaCBcXHQgMSBc EXAdNGtjroS1r0wbHKRg zEFrLVU1AWyrz4njMUnh TTF6UFMvSiHpBZHmHM6Y SlRjUQc0LoX2Ubn0WoL4 VEq4ESHVMgDfAkIfXrP4 MsK1FFfrCDj7AFp0KIfQ GaTrDGN0AZlyToX9JyB0 VAC5EdGhZLBoQtQdGSPo CQOxKOvdmENjZV5tpCgc IVAyBW5GAOMlVHihSCSj OoTaJQ5mY2wsznduAJga kWVae66usJZoX5drqTCu GG0UZIGmptIsTCyxoBhp eL2msYAnI0gbIwPoUgyz cGljTmVzdERvYzEgDQpc hEWlqFEzBW7WZIKiTxYn AtIjZEn8GKUdgK2qIc0d fYNgsK8veMMqWG5nOGju cKX3wDCaaHVymRUpNJMv z6AvmVQauKDdXjDze1fh IGFuZCBzdWJjdXRhbmVv pVSdnCmwy9ZuBA7gLME5 cmluZyAxLjcgeCAxLjAg lAIrRnNpZ62kPBWWrOQx s1iyymFheKIlOMMmVWXf nL0fu8BdDAWrieCzngFb cdViO5NbVVCheDSfPUXc bGlnaHRseSBkZXByZXNz ZWQgYXJlYSBtZWFzdXJp uwiiQQ30FCqoVN8wDCOa ZJXbgqBeDSv5IZ7dicY9 uxMxGbWtP95jcH8tiKxk EF4yDFRwz3NziNCcT1dr WeVtGSuvMT7xtzzansTr BJHeURbyn5MzEDYpWQBh LiAgVGhlIHNwZWNpbWVu DIjwEYQvB0Boc10aWWTf apZjwU26KZitkMJfgIPd lMH7OAKxTUUzLr3hcY01 czogQTEgdGlwcywgQTJc rHclAYUoZEl1UkZiGJIm ZHkuIFxwYXIgDQpccGFy GM2DQ5OpUq37QV6zFDKl PDloFvFqPJQvAtW1OAAH XHBhciANClxwYXIgDQpH ny4pxjFguXEijP9uvQmp aiZrHBBcw8WgAZUbDJSf K3xsgpIkVC1qAZSbbI3r YywgOTUwMCBFdWNsaWQg CBOwKvkbC8vvpuIdGU8r ENMWZAI9HKA1CBcbEQWo DEqds4RzZJpoaFizNPCa FdZwZWfzYOOrX07ua3JE a3Dle8ambNzxq1OdkBAv PW64GKSthMThGGG5WW7d fVxwYXIgDQpccGFyZCAN TmvqrbMqEG3HmY== [facility] Work Phone: Performing Lab w4nnlQVjUKExcJHeTfUt GZQwCTTzz3ipKDWcgEUt ZzEwMzNcZnRuYmpcdWMx GKPrIgXiw2ems965sREt z0bfOTYaWcP5dZMaHFZj rLGjO948RELpZWrci5ei b7AqBMLwlTJph6Q0EVNX jtgrwBh5vGvyB73gr2D5 BaegU9txNGEjBXKgS8Le CS0nGCZzOsr6GKV7AGC0 KVAqJNLdR0QbHS8vKLEq wQGoZXt8n5yfcFndIMFm CGG4t8tzLUaeuvUsGA4g cu4syNr0b7clduKdNFYm FYFqoGZSMWKfL5YvoYul Bb9tjTb4sActJrdoKCX8 Hgu1XW7kjo15pdm1gCeq NXJvykgbWwE0VPpeEFBk mxctIDt9ALtkMDJduYX4 YLFxcKNbM2DtRZsgCD7h sbg0BZD6RUnkESZgUxZ9 NDBcaGVhZGVyeTcyMFxm a290ZKE4CuPfGX6oM2Lf u5Z7xY7poGUvETWpvFRa PiEpBFJzmk5gpVUkDNqw s7EkYGZ9jcK0iNQehXEv LLIjEO01Iigse0GwOukh a7BoM50qmZG7XLkpo9bn FO6rHqM7zlCuHTpmp6xj eY3hEyG9AWdaVJ2zZS9u AITadV6ojplsYDJkVsIv pxohFRPvsPkrvbRzTf2y qCkoCTE3NCvpP5sxnR9q EpC0MIraA6shuX8zTTx2 OIakjKK6EAWdcP8hOM6b fmikj2ubRHxqFNdnYYTb dxC3pdJwQEZyuHInO7Yv vF4pLTLfCL1bpnjhe6uz VRE2FKtqGZDzWYG4KwCg PLNlj6Ayrzs2VhYch4Uc xBNaDVomE25il824AVCv vpYsI6mieVGxocmjlWIz vhmkEMceyfL2EDTlXNJn YWluXGYxXGZzMjBcbGFu ZzEwMzNcaGljaFxmMVxk IvJgXUYeVTgaP1soBtAr GaXhZECRaPImrr5buLsq LPhelWHbqCLhbEB9oY6r CXXjruMhxb4kAOAmtDLZ hCQ2IJwtqmMjO0fiwjpe DGS2SFPdQUQ9H4qwPENF dmUsIENsZXZlbGFuZCBP DQV7XMQ5OURaDSYUSTQm JJY3MLH2RBIbFTJuwZDb XHBhclxwYXJkXHBsYWlu UFUhGKMhYpGxaVqxbO1c NjDePiFyZUayTU9eGZEo J7ylpCJbDSNmGBIoR8qb KrKwuF3liNicIQjeSuNi ZnMyMFxsdHJjaCBMYWJv rsS6o3W8QLzzuHUlvwxv MVxmczIwXGxhbmcxMDMz YEklY4omMrQyNQHvqMnw AApar9GePSAkRCRuSjFh XKjyMHA2o7R3RDdaoHDt fiGULtDERS7cyPXuvqnr YV4DDynytNIwlxheCTvi czIyXGxhbmcxMDMzXGhp J8axMxVoSRMuaVjiEWat m7FcQROlZQKgTaXegPTm fQ== [facility] Work Phone: [facility] Work Phone: CNOVon 08-27-2024 CNOV Office Visit (NSFRVW) JG CHAHAL ([id number]) 1940 M Date Time Provider Department 08/27/24 [...] (PROPOXYPHENE N (more content not included)... Normal [facility] CT Lumbar spine WO contrasto n [...] and assume there are 5 lumbar-type vertebrae. Shafting Worker: PSCB Transcribe Date/Time: Aug 06 2024 6:16P Dictated by : NADJA SCHMIDT MD This examination was interpreted and the report reviewed and electronically signed by: NADJA SCHMIDT MD on Aug 06 2024 6:22PM [facility] DIVISION OF RADIOLOGY * * *Final Report* * * DATE OF EXAM: Aug 06 2024 3:21PM [facility] 0508 - CT LUMBAR SPINE WO IVCON [...] are 5 lumbar-type vertebrae. Anatomic variant: None. Pie Filler (topogram) images: Right hip replacement changes. Alignment: [...] within normal limits. DIVISION OF RADIOLOGY Provider, [facility] [place] - 08/06/2024 * * *Final Report* * * DATE OF EXAM: Aug 06 2024 3:21PM [facility] 0508 - CT LUMBAR SPINE WO IVCON [...] are 5 lumbar-type vertebrae. Anatomic variant: None. Pie Filler (topogram) images: Right hip replacement changes. Alignment: [...] and assume there are 5 lumbar-type vertebrae. Shafting Worker: BERENICE Transcribe Date/Time: Aug 06 2024 6:16P Dictated by : NADJA SCHMIDT MD This examination was interpreted and the report reviewed and electronically signed by: NADJA SCHMIDT MD on Aug 06 2024 6:22PM EST [facility] Radiology Study observation (narrative) [facility] CT Lumbar spine WO gabbyO rdered By: [facility] Provider on 08-06-2024 [facility] HEMOGLOBIN A1C (POC)on 06-20 HbA1c (Bld) [Mass fraction] 5.8 % Abnormal 4.3 - 5.6 % [facility] Comment on above: Location:[facility], [address], [place], [address] Point of care (POC) Hemoglobin A1c (HGBA1C) [...] specific diabetes management situations: The POC device stator connector provides a normal range of 4.2% to 6.5% for the HGBA1C POC test. However, the [place] [employer] guidelines indicate that patients with [...] Interpretation and review of laboratory results Abnormal [facility] HISTORY PHYSICALon HISTORY PHYSICAL HNO ID: [id number] Author: RENAN BOWLING MD Service: Pain Management [...] Coronary atherosclerosis of unspecified type of vessel, [place] or graft 01/22/2006 moderate Diverticulosis of colon [...] Low HDL. Lumbago 08/26/2008 Dr. Odin Coon, [facility]. Rotator cuff tear, right 10/21/2012 Salmonella [...] MEDIALANDLAT COMPARTMENTS Left 10/01/2017 revision L TKA, [facility] CC ABLATION SVT 04/06/2017 EP study, [...] reported edema o (more content not included)... [facility] NURSING PROGon 03-18-2024 NURSING PROG HNO ID: [id number] Author: SONIA OCONNELL RN Service: Nursing Author Type: Registered Nurse Type: Nursing Progress Note Filed: 03/18/2024 07:19 Note Text: Other: pt ready for OR, call light in reach, and son to stay in waiting room per pt request. [facility] OPERATIVE NOon 03-18-2024 OPERATIVE NO HNO ID: [id number] Author: RENAN BOWLING MD Service: Pain Management [...] DATE: March 18, 2024 TIME: 8:48 AM [facility] MR Lumbar spine WO contrasto n 02-19-2024 [facility] Culture, Blood (WB)on 2022 CUB No growth in 5 days. Normal [facility] Comment on above: Performed By: #### M 200.1000 #### [facility] [address] [place], [address] CUB No growth in 5 days. Normal [facility] Comment on above: Performed By: #### M 200.1000 #### [facility] [address] [place], [address] Urine Cultureon 10-13-2023 [facility] Culture exhibits no growth. Normal [facility] Comment on above: Performed By: #### M 101.0111, L400.0001, M100.2200 #### [facility] [address] [place], [address] Absolute lymphocyte countOrd ered By: Vicente Davila on 10-12-2023 Lymphocytes Auto (Unsp spec) [#/Vol] 0.54 10*3/uL 0.83-4.51 [facility] BNP,B-Type NATRIURETIC PEPTI Simeon 10-12-2023 Natriuretic peptide B (Bld) [Mass/Vol] 69.2 pg/mL Normal 0-100 [facility] Comment on above: Performed By: #### M 101.0111, L400.0001, M100.2200 #### [facility] [address] [place], [address] Basophil percentageOrdered B y: Vicente Davila on 10-12-2023 Basophil percentage 5-10 SEEN /hpf 0-5 [facility] [place] [facility] Basophils/100 WBC (Bld) 0.5 % 0-1 [facility] [place] [facility] Bilirubin [Mass/Vol] 1.20 mg/dL 0.20-1.00 [facility] Comment on above: For patients on eltr ombopag therapy, use of Dimension [place] TBIL is not recommended. Chloride [Moles/Vol] 100 mmol/L 98-107 [facility] Eosinophils/100 WBC (Bld) 1.6 % 0-5 [facility] Glucose [Mass/Vol] 146 mg/dL 74-106 [facility] Comment on above: Fasting Glucose resu lt greater than or equal to 126 mg/dL suggests DIABETES MELLITUS per A.D.A. criteria. Lactate [Moles/Vol] 1.4 mmol/L 0.4-2.0 [facility] Neutrophils (Bld) [#/Vol] 9.2 10*3/uL 2.0-7.7 [facility] Neutrophils/100 WBC (Bld) 84.4 % 47-70 [facility] Potassium [Moles/Vol] 4.1 mmol/L 3.5-5.1 [facility] Protein [Mass/Vol] 7.7 g/dL 6.4-8.2 [facility] Sodium [Moles/Vol] 132 mmol/L 136-145 [facility] WBC (Bld) [#/Vol] 10.9 10*3/uL 4.4-11.0 [facility] Bilirubin Test strip Ql (U)O rdered By: iVcente Davila on 10-12-2023 Bilirubin Ql (U) Negative Negative [facility] Blood erythrocytes count (nu mber/volume)Ordered By: Vicente Davila on 10-12-2023 RBC (Bld) [#/Vol] 5.48 10*6/uL 4.6-6.2 [facility] Blood hemoglobin measurement (mass/volume)Ordered By: Vicente Davila on 10-12-2023 Hemoglobin (Bld) [Mass/Vol] 15.3 g/dL 13.0-16.5 [facility] Blood lymphocytes/100 leukoc ytesOrdered By: Vicente Davila on 10-12-2023 Lymphocytes/100 WBC (Bld) 5.0 % 19-41 [facility] Blood manual differential co mment interpretation (narrative result)Ordered By: Vicente Davila on 10-12-2023 Manual differential comment Ryland (Bld) [Interp] SEE COMMENT [facility] Comment on above: LYMPHOPENIA NOTED Blood monocytes/100 leukocyt esOrdered By: Vicente Davila on 10-12-2023 Monocytes/100 WBC (Bld) 8.0 % 0-10 [facility] [place] [facility] Blood platelet adequacy dete ction by light microscopyOrdered By: Vicente Davila on 10-12-2023 Platelets LM Ql (Bld) ADEQUATE ADEQ [facility] Blood platelet mean volumeOr dered By: Vicente Davila on 10-12-2023 Platelet mean volume (Bld) [Entitic vol] 9.0 fL 6.2-12.0 [facility] CBC W/Diff, Automatedon 09-20 PLT EST ADEQUATE Normal [facility] Comment on above: Performed By: #### M 101.0111, L400.0001, M100.0 #### [facility] [address] [place], [place], [id number] RED CELL MORPH NORM C+C Normal NORM C C [facility] Comment on above: Performed By: #### M 101.0111, L400.0001, M100.2200 #### [facility] [address] [place], [place], [id number] SMEAR COMMENT SEE COMMENT Normal [facility] Comment on above: Result Comment: LYMP HOPENIA NOTED Performed By: #### M 101.0111, L400.0001, M100.2200 #### [facility] [address] [place], [place], [address] Chest 1 View (Portable)on Chest 1 View (Portable) [facility] Imaging Services [address] [place] [address] Chest 1 View (Portable) MR#: [id number] Acct: [id number] Name: JG CHAHAL Rep #: [id number] : 1940 M 83 From: Uri Pnag MD PCP: Dr. Galindo Yuan MD Status: REG ER Study: Chest 1 View (Portable) Date of Exam: 10/12/23 Exam# [id number] Ordering Dr: Vicente Davila DO [id number] STUDY: X-RAY CHEST REASON FOR EXAM: Male, [...] Vicente Davila DO; Dr. 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 Normal [facility] Comprehensive Metabolic Prof ilon 10-12-2023 Albumin [Mass/Vol] 3.6 g/dL Normal 3.2-5.0 [facility] Comment on above: Order Comment: 'TROP ' Serial specimen #1, #2 or #3: 1 Performed By: #### M 101.0111, L400.0001, M1.0 #### [facility] [address] [place], [address] Albumin/Globulin [Mass ratio] 0.9 {ratio} Normal 0.9-2.4 [facility] Comment on above: Order Comment: 'TROP ' Serial specimen #1, #2 or #3: 1 Performed By: #### M 101.0111, L400.0001, M1.2199 #### [facility] [address] [place], [address] ALK P 127 U/L High 45-117 [facility] Comment on above: Order Comment: 'TROP ' Serial specimen #1, #2 or #3: 1 Performed By: #### M 101.0111, L400.0001, #### [facility] [address] [place], [address] ALT [Catalytic activity/Vol] 20 U/L Normal 16-61 [facility] Comment on above: Order Comment: 'TROP ' Serial specimen #1, #2 or #3: 1 Performed By: #### M 101.0111, L400.0001, M1.0 #### [facility] [address] [place], [address] AST [Catalytic activity/Vol] 13 U/L Low 15-37 [facility] Comment on above: Order Comment: 'TROP ' Serial specimen #1, #2 or #3: 1 Performed By: #### M 101.0111, L400.0001, M1.0 #### [facility] [address] [place], [address] Bilirubin [Mass/Vol] 1.20 mg/dL High 0.20-1.00 [facility] Comment on above: Order Comment: 'TROP ' Serial specimen #1, #2 or #3: 1 Result Comment: For patients on eltrombopag therapy, use of Dimension [place] TBIL is not recommended. Performed By: #### M 101.0111, L400.0001, #### [facility] [address] [place], [address] BUN/CRE 10.0 RATIO Normal 10-20 [facility] Comment on above: Order Comment: 'TROP ' Serial specimen #1, #2 or #3: 1 Performed By: #### M 101.0111, L400.0001, #### [facility] [address] [place], [address] CA,Total 9.2 mg/dL Normal 8.5-10.1 [facility] Comment on above: Order Comment: 'TROP ' Serial specimen #1, #2 or #3: 1 Performed By: #### M 101.0111, L400.0001, #### [facility] [address] [place], [address] Chloride [Moles/Vol] 100 mmol/L Normal 98-107 [facility] Comment on above: Order Comment: 'TROP ' Serial specimen #1, #2 or #3: 1 Performed By: #### M 101.0111, L400.0001, #### [facility] [address] [place], [address] CO2 [Moles/Vol] 27.0 mmol/L Normal 21.0-32.0 [facility] Comment on above: Order Comment: 'TROP ' Serial specimen #1, #2 or #3: 1 Performed By: #### M 101.0111, L400.0001, #### [facility] [address] [place], [address] Creatinine [Mass/Vol] 1.50 mg/dL High 0.70-1.30 [facility] Comment on above: Order Comment: 'TROP ' Serial specimen #1, #2 or #3: 1 Result Comment: The validity of the calculated GFR GFRAA in patients over 70 years has not been determined. Clinical correlation is essential. Performed By: #### M 101.0111, L400.0001, M10 #### [facility] [address] [place], [address] ECRCL 34.89 ml/min Normal [facility] Comment on above: Order Comment: 'TROP ' Serial specimen #1, #2 or #3: 1 Performed By: #### M 101.0111, L400.0001, #### [facility] [address] [place], [address] EST GFR - AA 58 mL/min Low >60 [facility] Comment on above: Order Comment: 'TROP ' Serial specimen #1, #2 or #3: 1 Result Comment: Afri can [place] GFR Calc Performed By: #### M 101.0111, L400.0001, 0 #### [facility] [address] [place], [address] GAP 5 Normal 5-15 [facility] Comment on above: Order Comment: 'TROP ' Serial specimen #1, #2 or #3: 1 Performed By: #### M 101.0111, L400.0001, M10 #### [facility] [address] [place], [address] GFR/1.73 sq M.predicted among non-blacks MDRD (S/P/Bld) [Vol rate/Area] 48 mL/min/{1.73_m2} Low >60 [facility] Comment on above: Order Comment: 'TROP ' Serial specimen #1, #2 or #3: 1 Result Comment: Non- GFR Calc Performed By: #### M 101.0111, L400.0001, .2199 #### [facility] [address] [place], [address] Globulin (S) [Mass/Vol] 4.1 g/dL Normal 2.2-4.2 [facility] Comment on above: Order Comment: 'TROP ' Serial specimen #1, #2 or #3: 1 Performed By: #### M 101.0111, L400.0001, .2199 #### [facility] [address] [place], [address] Glucose [Mass/Vol] 146 mg/dL High 74-106 [facility] Comment on above: Order Comment: 'TROP ' Serial specimen #1, #2 or #3: 1 Result Comment: Fast ing Glucose result greater than or equal to 126 mg/dL suggests DIABETES MELLITUS per A.D.A. criteria. Performed By: #### M 101.0111, L400.0001, #### [facility] [address] [place], [address] Potassium [Moles/Vol] 4.1 mmol/L Normal 3.5-5.1 [facility] Comment on above: Order Comment: 'TROP ' Serial specimen #1, #2 or #3: 1 Performed By: #### M 101.0111, L400.0001, #### [facility] [address] [place], [address] Sodium [Moles/Vol] 132 mmol/L Low 136-145 [facility] Comment on above: Order Comment: 'TROP ' Serial specimen #1, #2 or #3: 1 Performed By: #### M 101.0111, L400.0001, M1.0 #### [facility] [address] [place], [address] T PROT 7.7 g/dL Normal 6.4-8.2 [facility] Comment on above: Order Comment: 'TROP ' Serial specimen #1, #2 or #3: 1 Performed By: #### M 101.0111, L400.0001, M100.2200 #### [facility] [address] [place], [address] Urea nitrogen [Mass/Vol] 15 mg/dL Normal 7-18 [facility] Comment on above: Order Comment: 'TROP ' Serial specimen #1, #2 or #3: 1 Performed By: #### M 101.0111, L400.0001, M100.2200 #### [facility] [address] [place], [address] Determination of erythrocyte mean corpuscular volume (MCV)Ordered By: Vicente Davila on 10-12-2023 MCV (RBC) [Entitic vol] 85.4 fL 80-94 [facility] [place] [facility] Emergency Department Summary on 10-12-2023 Emergency Department Summary [facility] Medical Records Department [address] [place] [address] Emergency Department Summary 10/12/23 MR#: [id number] Acct: [id number] Name: JG CHAHAL Rep #: [id number] : 1940 83 From: Vicente Davila DO [...] diarrhea. No rashes. He notes generalized myalgias [facility] Medical History Ambulates with cane Arthritis Back [...] h (more content not included)... Normal [facility] GLUCOSE, BLOOD (POC)on 10-12 Glucose [Mass/Vol] 143 mg/dL Abnormal 74 - 99 mg/dL [facility] Hematocrit Auto (Bld) [Volum e fraction]Ordered By: Vicente Davila on 10-12-2023 Hematocrit (Bld) [Volume fraction] 46.8 % 40-54 [facility] INFLUENZA A&B MOLECULAR (POC )on 10-12-2023 Flu A (POCT) Negative Negative [facility] Flu B (POCT) Negative Negative [facility] Procedural Control Valid [facility] INR in Blood by Coagulation assayOrdered By: Vicente Davila on 10-12-2023 INR Coag (Bld) [Relative time] 1.4 {INR} [facility] Influenza virus A and B and SARS-CoV-2 (COVID-19) Ag panel - Upper respiratory specimOrdered By: Vicente Davila on 10-12-2023 SARS-CoV-2 & FLU Antigen (Rapid) SARS-CoV-2 (COVID 19) [facility] Ketones Test strip Ql (U)Ord ered By: Vicente Davila on 10-12-2023 Ketones Ql (U) 5 mg/dl Negative [facility] L501.4020on 10-12-2023 TROPONIN-I HS 14 pg/mL Normal 3.0-78.0 [facility] Comment on above: Order Comment: 'TROP ' Serial specimen #1, #2 or #3: 1 Result Comment: Plea se Note: New Test Units and Gender Specific Reference Ranges. For more information see Policy Stat Procedure [place] High Sensitivity Troponin (TNIH) and attachments. Performed By: #### M 101.0111, L400.0001, M100.2200 #### [facility] [address] [place], [address] Laboratory - Chemistry and C hemistry - challengeOrdered By: Vicente Davila on 10-12-2023 ALP [Catalytic activity/Vol] 127 U/L 45-117 [facility] ALT [Catalytic activity/Vol] 20 U/L 16-61 [facility] CO2 [Moles/Vol] 27.0 mmol/L 21.0-32.0 [facility] Globulin (S) [Mass/Vol] 4.1 g/dL 2.2-4.2 [facility] [place] [facility] Natriuretic peptide B (Bld) [Mass/Vol] 69.2 pg/mL 0-100 [facility] Urea nitrogen/Creatinine [Mass ratio] 10.0 mg/mg 10-20 [facility] - CoagulationOrde red By: Vicente Davila on 10-12-2023 aPTT Coag (Bld) [Time] 33.4 s 24.1-36.2 [facility] PT Coag (PPP) [Time] 16.9 s 11.7-14.9 [facility] - Hematology and Cell countsOrdered By: Vicente Davila on 10-12-2023 Erythrocyte distribution width (RBC) [Entitic vol] 42.7 fL 35.1-43.9 [facility] Erythrocyte distribution width (RBC) [Ratio] 13.7 % 11.6-14.6 [facility] Immature granulocytes/100 WBC (Bld) 0.500 % 0.0-0.9 [facility] Comment on above: IG% - Immature Granu locytes (promyelocytes, myelocytes and metamyelocytes) > 1% indicates that a LEFT SHIFT is Present. MCH (RBC) [Entitic mass] 27.9 pg 27.0-32.0 [facility] Nucleated RBC/100 WBC (Bld) [Ratio] 0 % 0-5 [facility] Lactic Acidon 10-12-2023 Lactate [Moles/Vol] 1.4 mmol/L Normal 0.4-1.9 [facility] Comment on above: Order Comment: Y Performed By: #### L 500.4050, L501.4020, L100.0100, L503.6005, L300.3900, L300.4310 #### [facility] [address] [place], [address] M101.0111on 10-12-2023 M101.0111 *Negative results from patients [...] Up resp IA.rapid Normal Reference Range: Negative Eknya, JEY method SARS-CoV-2 (COVID 19) A *POSITIVE* A Influenza Ag, Direct NEGATIVE for Influenza A/B Antigen (See Note) SARS-CoV-2 (COVID 19) Normal [facility] Comment on above: Performed By: #### M 101.0111, L400.0001, M100.2200 #### [facility] [address] [place], [address] MCHC Auto (RBC) [Mass/Vol]Or dered By: Vicente Davila on 10-12-2023 MCHC (RBC) [Mass/Vol] 32.7 g/dL 32-36 [facility] Mucus LM Ql (Urine sed)Order ed By: Vicente Davila on 10-12-2023 Mucus Ql (Urine sed) 1+ /hpf [facility] Nitrite Test strip Ql (U)Ord ered By: Vicente Davila on 10-12-2023 Nitrite Ql (U) Negative Negative [facility] No Panel InformationOrdered By: Vicente Davila on 10-12-2023 Estimated Creatinine Clearance Calc 34.89 ml/min [facility] Estimated GFR (MDRD) Amer 58 mL/min >60 [facility] Comment on above: GFR Calc Estimated GFR (MDRD) Non-Af Amer 48 mL/min >60 [facility] Comment on above: Non- GFR Calc Troponin I High Sensitivity 14 pg/mL 3.0-78.0 [facility] Comment on above: Please Note: New Serene t Units and Gender Specific Reference Ranges. For more information see Policy Stat Procedure [place] High Sensitivity Troponin (TNIH) and attachments. Partial Thromboplast Timeon 10-12-2023 aPTT Coag (Bld) [Time] 33.4 s Normal 24.1-36.2 [facility] Comment on above: Performed By: #### M 101.0111, L400.0001, #### [facility] [address] [place], [address] Platelets bldOrdered By: Kalen Davila on 10-12-2023 Platelets (Bld) [#/Vol] 189 10*3/uL 150-450 [facility] Protein Test strip Ql (U)Ord ered By: Vicente Davila on 10-12-2023 Protein Ql (U) 100 mg/dl Negative [facility] Prothrombin Time w/INRon INR Coag (PPP) [Relative time] 1.4 {INR} Normal [facility] Comment on above: Performed By: #### M 101.0111, L400.0001, #### [facility] [address] [place], [address] PT Coag (PPP) [Time] 16.9 s High 11.7-14.9 [facility] Comment on above: Performed By: #### M 101.0111, L400.0001, #### [facility] [address] [place], [address] RBC morphologyOrdered By: Boris Davila on 10-12-2023 RBC morphology finding Nom (Bld) NORM C+C NORMAL NORM C&C [facility] STREP A MOLECULAR (POC)on Procedural Control Valid [facility] Strep A (POCT) Negative Negative [facility] Serum or plasma albumin isabell urement (mass/volume)Ordered By: Vicente Davila on 10-12-2023 Albumin [Mass/Vol] 3.6 g/dL 3.2-5.0 [facility] Serum or plasma albumin/glob ulin mass ratioOrdered By: Vicente Davila on 10-12-2023 Albumin/Globulin [Mass ratio] 0.9 {ratio} 0.9-2.4 [facility] Serum or plasma calcium isabell urement (mass/volume)Ordered By: Vicente Davila on 10-12-2023 Calcium [Mass/Vol] 9.2 mg/dL 8.5-10.1 [facility] Serum or plasma creatinine m easurement (mass/volume)Ordered By: Vicente Davila on 10-12-2023 Creatinine [Mass/Vol] 1.50 mg/dL 0.70-1.30 [facility] Comment on above: The validity of the calculated GFR & GFRAA in patients over 70 years has not been determined. Clinical correlation is essential. Serum or plasma urea nitroge n measurement (mass/volume)Ordered By: Vicente Davila on 10-12-2023 Urea nitrogen [Mass/Vol] 15 mg/dL 7-18 [facility] Squamous epithelial cells de tection in urine sediment by light microscopyOrdered By: Vicente Davila on 10-12-2023 Epithelial cells.squamous LM Ql (Urine sed) 0 SEEN /hpf 0-5 [facility] Thin prep Papanicolaou smear with manual screeningOrdered By: Vicente Davila on 10-12-2023 Thin prep Papanicolaou smear with manual screening 13 U/L 15-37 [facility] Thin prep Papanicolaou smear with manual screening 5 5-15 [facility] UA DIP, URINE (POC)on 2022 BILIRUBIN UA (POCT) Negative Negative [facility] CLARITY UA (POCT) Clear [facility] COLOR UA (POCT) Yellow [facility] GLUCOSE UA (POCT) Negative Negative mg/dL [facility] Hemoglobin Ql (U) Moderate Abnormal Negative [facility] KETONE UA (POCT) Negative Negative mg/dL [facility] LEUKOCYTES UA (POCT) Negative Negative [facility] NITRITE UA (POCT) Negative [facility] ([facility]CT) 7.0 4.5 - 8.0 [facility] Protein Ql (U) 100 mg/dL Abnormal Negative mg/dL [facility] SPECIFIC GRAVITY UA (POCT) 1.020 1.005 - 1.030 [facility] UROBILINOGEN UA (POCT) 1.0 E.U./dL Y[place] l E.U./dL [facility] Urinalysis, Completeon 10-12 BACTERIA RARE Normal None Seen [facility] Comment on above: Order Comment: PEPE CTOR TO SPECIFY Performed By: #### M 101.0111, L400.0001, M100.2200 #### [facility] [address] [place], [address] Mucus Ql (Urine sed) 1+ /hpf Normal [facility] Comment on above: Order Comment: PEPE CTOR TO SPECIFY Performed By: #### M 101.0111, L400.0001, M100.2200 #### [facility] [address] [place], [address] WBC 5-10 SEEN Normal 0-5 [facility] Comment on above: Order Comment: PEPE CTOR TO SPECIFY Performed By: #### M 101.0111, L400.0001, M100.2200 #### [facility] [address] [place], [address] EPI,SQUAMOUS 0 SEEN Normal 0-5 [facility] Comment on above: Order Comment: PEPE CTOR TO SPECIFY Performed By: #### M 101.0111, L400.0001, M100.2200 #### [facility] [address] [place], [address] RBC 0 SEEN Normal 0-5 [facility] Comment on above: Order Comment: PEPE CTOR TO SPECIFY Performed By: #### M 101.0111, L400.0001, M100.2200 #### [facility] [address] [place], [address] Urine blood detectionOrdered By: Vicente Davila on 10-12-2023 RBC Ql (U) 50 /ul Negative [facility] RBC Ql (U) 0 SEEN /hpf 0-5 [facility] Urine clarityOrdered By: Kalen Davila on 10-12-2023 Clarity (U) Clear Clear [facility] Urine color determinationOrd ered By: Vicente Davila on 10-12-2023 Color (U) Yellow Yellow [facility] Urine glucose detectionOrder ed By: Vicente Davila on 10-12-2023 Glucose Ql (U) Normal mg/dl Normal [facility] Urine leukocyte esterase det ection by dipstickOrdered By: Vicente Davila on 10-12-2023 Leukocyte esterase Test strip Ql (U) 25 /ul Negative [facility] Urine pHOrdered By: Vicente morales on 10-12-2023 pH (U) 6.0 [pH] 5.0 - 8.0 [facility] Urine sediment bacteria coun t by microscopy (number/high power field)Ordered By: Vicente Davila on 10-12-2023 Bacteria LM.HPF (Urine sed) [#/Area] RARE /hpf None Seen [facility] Urine specific gravity measu rementOrdered By: Vicente Davila on 10-12-2023 Specific gravity (U) [Rel density] 1.015 1.002-1.030 [facility] Urobilinogen Auto test strip Ql (U)Ordered By: Vicente Davila on 10-12-2023 Urobilinogen Ql (U) 1 mg/dl Normal [facility] ECG COMPLETEon 07-21-2023 Atrial Rate 66 BPM [facility] Calculated P [place] 76 degrees [facility] Calculated R [place] 26 degrees [facility] Calculated T [place] 6 degrees [facility] P-R Interval 236 ms [facility] QRS Duration 86 ms [facility] QT Interval 412 ms [facility] QTC Calculation ([place]) 431 ms [facility] Ventricular Rate [address] [facility] d [facility] 12 Lead EKGon 06-24-2023 12 Lead EKG [facility] Cardiovascular Services [address] [place] [address] 12 Lead EKG 06/24/23 0800 MR#: [id number] Acct: [id number] Name: JG CHAHAL Rep #: [id number] : 1940 82 From: Humberto Tierney MD [...] normal ECG Confirmed by HUMBERTO TIERNEY MD ([id number]), video tape editor DIANE ROGERS ([id number]) on 06/25/2023 1:27:06 PM Referred By: ALMA Confirmed By:HUMBERTO TIERNEY MD 06/25/23 1327 Date Humberto Tierney MD CC: Dr. Koffi Rome DO; Dr. Galindo Yuan MD Signed Normal [facility] Absolute lymphocyte countOrd ered By: Koffi Rome on 06-24-2023 Lymphocytes Auto (Unsp spec) [#/Vol] 1.59 10*3/uL 0.83-4.51 [facility] Basic Metabolic Profile (BMP )on 06-24-2023 BUN/CRE 14.3 RATIO Normal 10-20 [facility] Comment on above: Order Comment: 1Y Performed By: #### M 101.0111, L400.0001, #### [facility] [address] [place], [address] CA,Total 9.0 mg/dL Normal 8.5-10.1 [facility] Comment on above: Order Comment: 1Y Performed By: #### M 101.0111, L400.0001, M100.0 #### [facility] [address] [place], [address] Chloride [Moles/Vol] 108 mmol/L High 98-107 [facility] Comment on above: Order Comment: 1Y Performed By: #### M 101.0111, L400.0001, #### [facility] [address] [place], [address] CO2 [Moles/Vol] 27.0 mmol/L Normal 21.0-32.0 [facility] Comment on above: Order Comment: 1Y Performed By: #### M 101.0111, L400.0001, #### [facility] [address] [place], [address] Creatinine [Mass/Vol] 1.19 mg/dL Normal 0.70-1.30 [facility] Comment on above: Order Comment: 1Y Result Comment: The validity of the calculated GFR GFRAA in patients over 70 years has not been determined. Clinical correlation is essential. Performed By: #### M 101.0111, L400.0001, #### [facility] [address] [place], [address] ECRCL 44.75 ml/min Normal [facility] Comment on above: Order Comment: 1Y Performed By: #### M 101.0111, L400.0001, #### [facility] [address] [place], [address] EST GFR - AA 75 mL/min Normal >60 [facility] Comment on above: Order Comment: 1Y Result Comment: Afri can Cymraes GFR Calc Performed By: #### M 101.0111, L400.0001, #### [facility] [address] [place], [address] GAP 5 Normal 5-15 [facility] Comment on above: Order Comment: 1Y Performed By: #### M 101.0111, L400.0001, #### [facility] [address] [place], [address] GFR/1.73 sq M.predicted among non-blacks MDRD (S/P/Bld) [Vol rate/Area] 62 mL/min/{1.73_m2} Normal >60 [facility] Comment on above: Order Comment: 1Y Result Comment: Non- GFR Calc Performed By: #### M 101.0111, L400.0001, #### [facility] [address] [place], [address] Glucose [Mass/Vol] 129 mg/dL High 74-106 [facility] Comment on above: Order Comment: 1Y Result Comment: Fast ing Glucose result greater than or equal to 126 mg/dL suggests DIABETES MELLITUS per A.D.A. criteria. Performed By: #### M 101.0111, L400.0001, #### [facility] [address] [place], [address] Potassium [Moles/Vol] 3.9 mmol/L Normal 3.5-5.1 [facility] Comment on above: Order Comment: 1Y Performed By: #### M 101.0111, L400.0001, #### [facility] [address] [place], [address] Sodium [Moles/Vol] 140 mmol/L Normal 136-145 [facility] Comment on above: Order Comment: 1Y Performed By: #### M 101.0111, L400.0001, .0 #### [facility] [address] [place], [address] Urea nitrogen [Mass/Vol] 17 mg/dL Normal 7-18 [facility] Comment on above: Order Comment: 1Y Performed By: #### M 101.0111, L400.0001, .0 #### [facility] [address] [place], [address] Basophil percentageOrdered B y: Koffi Rome on 06-24-2023 Basophils/100 WBC (Bld) 0.9 % 0-1 [facility] [place] [facility] Chloride [Moles/Vol] 108 mmol/L 98-107 [facility] Eosinophils/100 WBC (Bld) 1.6 % 0-5 [facility] Glucose [Mass/Vol] 129 mg/dL 74-106 [facility] Comment on above: Fasting Glucose resu lt greater than or equal to 126 mg/dL suggests DIABETES MELLITUS per A.D.A. criteria. Neutrophils (Bld) [#/Vol] 5.2 10*3/uL 2.0-7.7 [facility] Neutrophils/100 WBC (Bld) 69.3 % 47-70 [facility] Potassium [Moles/Vol] 3.9 mmol/L 3.5-5.1 [facility] Sodium [Moles/Vol] 140 mmol/L 136-145 [facility] WBC (Bld) [#/Vol] 7.5 10*3/uL 4.4-11.0 [facility] Blood erythrocytes count (nu mber/volume)Ordered By: Koffi Rome on 06-24-2023 RBC (Bld) [#/Vol] 4.95 10*6/uL 4.6-6.2 [facility] Blood hemoglobin measurement (mass/volume)Ordered By: Koffi Rome on 06-24-2023 Hemoglobin (Bld) [Mass/Vol] 14.2 g/dL 13.0-16.5 [facility] Blood lymphocytes/100 leukoc ytesOrdered By: Koffi Rome on 06-24-2023 Lymphocytes/100 WBC (Bld) 21.2 % 19-41 [facility] Blood monocytes/100 leukocyt esOrdered By: Koffi Rome on 06-24-2023 Monocytes/100 WBC (Bld) 6.7 % 0-10 [facility] [place] [facility] Blood platelet mean volumeOr dered By: Koffi Rome on 06-24-2023 Platelet mean volume (Bld) [Entitic vol] 9.0 fL 6.2-12.0 [facility] CBC W/Diff, Automatedon Absolute Lymph 1.59 X10 3/uL Normal 0.83-4.51 [facility] Comment on above: Performed By: #### M 101.0111, L400.0001, #### [facility] [address] [place], [address] Absolute Neut 5.2 X10 3/uL Normal 2.0-7.7 [facility] Comment on above: Performed By: #### M 101.0111, L400.0001, #### [facility] [address] [place], [address] Basophils/100 WBC (Bld) 0.9 % Normal 0-1 [facility] [place] [facility] Comment on above: Performed By: #### M 101.0111, L400.0001, #### [facility] [address] [place], [address] Eosinophils/100 WBC (Bld) 1.6 % Normal 0-5 [facility] Comment on above: Performed By: #### M 101.0111, L400.0001, #### [facility] [address] [place], [address] Erythrocyte distribution width (RBC) [Ratio] 14.2 % Normal 11.6-14.6 [facility] Comment on above: Performed By: #### M 101.0111, L400.0001, #### [facility] [address] [place], [address] Hematocrit (Bld) [Volume fraction] 45.6 % Normal 40-54 [facility] Comment on above: Performed By: #### M 101.0111, L400.0001, #### [facility] [address] [place], [address] Hemoglobin (Bld) [Mass/Vol] 14.2 g/dL Normal 13.0-16.5 [facility] Comment on above: Performed By: #### M 101.0111, L400.0001, #### [facility] [address] [place], [address] IG% 0.300 Normal 0.0-0.9 [facility] Comment on above: Result Comment: IG% - Immature Granulocytes (promyelocytes, myelocytes and metamyelocytes) > 1% indicates that a LEFT SHIFT is Present. Performed By: #### M 101.0111, L400.0001, #### [facility] [address] [place], [address] Lymphocytes/100 WBC (Bld) 21.2 % Normal 19-41 [facility] Comment on above: Performed By: #### M 101.0111, L400.0001, #### [facility] [address] [place], [address] MCH (RBC) [Entitic mass] 28.7 pg Normal 27.0-32.0 [facility] Comment on above: Performed By: #### M 101.0111, L400.0001, #### [facility] [address] [place], [address] MCHC (RBC) [Mass/Vol] 31.1 g/dL Low 32-36 [facility] Comment on above: Performed By: #### M 101.0111, L400.0001, #### [facility] [address] [place], [address] MCV (RBC) [Entitic vol] 92.1 fL Normal 80-94 [facility] [place] [facility] Comment on above: Performed By: #### M 101.0111, L400.0001, #### [facility] [address] [place], [address] Monocytes/100 WBC (Bld) 6.7 % Normal 0-10 [facility] [place] [facility] Comment on above: Performed By: #### M 101.0111, L400.0001, #### [facility] [address] [place], [address] Neutrophils/100 WBC (Bld) 69.3 % Normal 47-70 [facility] Comment on above: Performed By: #### M 101.0111, L400.0001, #### [facility] [address] [place], [address] Nucleated RBC (Bld) [#/Vol] 0 10*3/uL Normal 0-5 [facility] Comment on above: Performed By: #### M 101.0111, L400.0001, #### [facility] [address] [place], [address] Platelet mean volume (Bld) [Entitic vol] 9.0 fL Normal 6.2-12.0 [facility] Comment on above: Performed By: #### M 101.0111, L400.0001, #### [facility] [address] [place], [address] Platelets (Bld) [#/Vol] 230 10*3/uL Normal 150-450 [facility] Comment on above: Performed By: #### M 101.0111, L400.0001, #### [facility] [address] [place], [address] RBC (Bld) [#/Vol] 4.95 10*6/uL Normal 4.6-6.2 [facility] Comment on above: Performed By: #### M 101.0111, L400.0001, #### [facility] [address] [place], [address] RDW SD 48.1 fl High 35.1-43.9 [facility] Comment on above: Performed By: #### M 101.0111, L400.0001, M100.2200 #### [facility] [address] [place], [address] WBC (Bld) [#/Vol] 7.5 10*3/uL Normal 4.4-11.0 [facility] Comment on above: Performed By: #### M 101.0111, L400.0001, M100.2200 #### [facility] [address] [place], [address] Chest 1 View (Portable)on Chest 1 View (Portable) [facility] Imaging Services [address] [place] [address] Chest 1 View (Portable) MR#: [id number] Acct: [id number] Name: CHAHALJG Marlee Rep #: [id number] : 1940 82 From: Jay Bedoya MD PCP: Dr. Galindo Yuan MD Status: REG ER Study: Chest 1 View (Portable) Date of Exam: 06/24/23 Exam# [id number] Ordering Dr: Koffi Rome DO STUDY: X-RAY [...] Koffi Rome DO; Dr. 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 Normal [facility] Determination of erythrocyte mean corpuscular volume (MCV)Ordered By: Koffi Rome on 06-24-2023 MCV (RBC) [Entitic vol] 92.1 fL 80-94 [facility] [place] [facility] Emergency Department Summary on 06-24-2023 Emergency Department Summary [facility] Medical Records Department [address] [place] [address] Emergency Department Summary 06/24/23 MR#: [id number] Acct: [id number] Name: JG CHAHAL Rep #: [id number] : 1940 82 From: Koffi Rome DO [...] he is no longer sweaty and nauseous [facility] Medical History Ambulates with cane Arthritis Back [...] housing: house Smoking Status: Never smoker ROS [facility] ED Constitutional Constitutional ED: Reports sweats; Denies [...] Ge (more content not included)... Normal [facility] Hematocrit Auto (Bld) [Volum e fraction]Ordered By: Koffi Rome on 06-24-2023 Hematocrit (Bld) [Volume fraction] 45.6 % 40-54 [facility] L501.4020on 06-24-2023 TROPONIN-I HS 7 pg/mL Normal 3.0-78.0 [facility] Comment on above: Result Comment: Plelarisa gale Note: New Test Units and Gender Specific Reference Ranges. For more information see Policy Stat Procedure [place] High Sensitivity Troponin (TNIH) and attachments. Performed By: #### L 501.4020 #### [facility] [address] [place], [place], [address] L501.5425on 06-24-2023 TROPONIN-I HS 7 pg/mL Normal 3.0-78.0 [facility] Comment on above: Order Comment: 1Y Result Comment: Son gale Note: New Test Units and Gender Specific Reference Ranges. For more information see Policy Stat Procedure [place] High Sensitivity Troponin (TNIH) and attachments. Performed By: #### M 101.0111, L400.0001, M100.2200 #### [facility] [address] [place], [place], [address] Laboratory - Chemistry and C hemistry - challengeOrdered By: Koffi Rome on 06-24-2023 CO2 [Moles/Vol] 27.0 mmol/L 21.0-32.0 [facility] Urea nitrogen/Creatinine [Mass ratio] 14.3 mg/mg 10-20 [facility] - Hematology and Cell countsOrdered By: Koffi Rome on 06-24-2023 Erythrocyte distribution width (RBC) [Entitic vol] 48.1 fL 35.1-43.9 [facility] Erythrocyte distribution width (RBC) [Ratio] 14.2 % 11.6-14.6 [facility] Immature granulocytes/100 WBC (Bld) 0.300 % 0.0-0.9 [facility] Comment on above: IG% - Immature Granu locytes (promyelocytes, myelocytes and metamyelocytes) > 1% indicates that a LEFT SHIFT is Present. MCH (RBC) [Entitic mass] 28.7 pg 27.0-32.0 [facility] Nucleated RBC/100 WBC (Bld) [Ratio] 0 % 0-5 [facility] MCHC Auto (RBC) [Mass/Vol]Or dered By: Koffi Rome on 06-24-2023 MCHC (RBC) [Mass/Vol] 31.1 g/dL 32-36 [facility] No Panel InformationOrdered By: Koffi Rome on 06-24-2023 Troponin I High Sensitivity 7 pg/mL 3.0-78.0 [facility] Comment on above: Please Note: New Serene t Units and Gender Specific Reference Ranges. For more information see Policy Stat Procedure [place] High Sensitivity Troponin (TNIH) and attachments. Estimated Creatinine Clearance Calc 44.75 ml/min [facility] Estimated GFR (MDRD) Amer 75 mL/min >60 [facility] Comment on above: GFR Calc Estimated GFR (MDRD) Non-Af Amer 62 mL/min >60 [facility] Comment on above: Non- GFR Calc Platelets bldOrdered By: Erik Rome on 06-24-2023 Platelets (Bld) [#/Vol] 230 10*3/uL 150-450 [facility] Serum or plasma calcium isabell urement (mass/volume)Ordered By: Koffi Rome on 06-24-2023 Calcium [Mass/Vol] 9.0 mg/dL 8.5-10.1 [facility] Serum or plasma creatinine m easurement (mass/volume)Ordered By: Koffi Rome on 06-24-2023 Creatinine [Mass/Vol] 1.19 mg/dL 0.70-1.30 [facility] Comment on above: The validity of the calculated GFR & GFRAA in patients over 70 years has not been determined. Clinical correlation is essential. Serum or plasma urea nitroge n measurement (mass/volume)Ordered By: Koffi Rome on 06-24-2023 Urea nitrogen [Mass/Vol] 17 mg/dL 7-18 [facility] Thin prep Papanicolaou smear with manual screeningOrdered By: Koffi Rome on 06-24-2023 Thin prep Papanicolaou smear with manual screening 5 5-15 [facility] Emergency Department Summary on 01-27-2023 Emergency Department Summary [facility] Medical Records Department [address] [place] [address] Emergency Department Summary 01/27/23 MR#: [id number] Acct: [id number] Name: JG CHAHAL Rep #: [id number] : 1940 82 From: Gwendolyn Lopes DO [...] since. No other complaints at this time. [facility] Medical History Ambulates with cane Arthritis Back [...] Denies c (more content not included)... Normal [facility] SCREENING FOR AAAon 12-22 [facility] Absolute lymphocyte counton 08-08-2022 Lymphocytes Auto (Unsp spec) [#/Vol] 1.07 10*3/uL 0.83-4.51 [facility] Work Phone: Basophil percentageon 2021 Basophil percentage 0-5 SEEN /hpf 0-5 [facility] Work Phone: Basophils/100 WBC (Bld) 0.8 % 0-1 [facility] [place] [facility] Work Phone: Bilirubin [Mass/Vol] 1.00 mg/dL 0.20-1.00 [facility] Work Phone: Comment on above: For patients on eltr ombopag therapy, use of Dimension [place] TBIL is not recommended. Chloride [Moles/Vol] 105 mmol/L 98-107 [facility] Work Phone: Eosinophils/100 WBC (Bld) 0.9 % 0-5 [facility] Work Phone: Glucose [Mass/Vol] 135 mg/dL 74-106 [facility] Work Phone: Comment on above: Fasting Glucose resu lt greater than or equal to 126 mg/dL suggests DIABETES MELLITUS per A.D.A. criteria. Neutrophils (Bld) [#/Vol] 4.9 10*3/uL 2.0-7.7 [facility] Work Phone: Neutrophils/100 WBC (Bld) 75.3 % 47-70 [facility] Work Phone: Potassium [Moles/Vol] 3.7 mmol/L 3.5-5.1 [facility] Work Phone: Protein [Mass/Vol] 6.8 g/dL 6.4-8.2 [facility] Work Phone: Sodium [Moles/Vol] 140 mmol/L 136-145 [facility] Work Phone: WBC (Bld) [#/Vol] 6.5 10*3/uL 4.4-11.0 [facility] Work Phone: Bilirubin Test strip Ql (U)o n 08-08-2022 Bilirubin Ql (U) Negative Negative [facility] Work Phone: Blood erythrocytes count (nu mber/volume)on 08-08-2022 RBC (Bld) [#/Vol] 4.80 10*6/uL 4.6-6.2 [facility] Work Phone: Blood hemoglobin measurement (mass/volume)on 08-08-2022 Hemoglobin (Bld) [Mass/Vol] 13.6 g/dL 13.0-16.5 [facility] Work Phone: Blood lymphocytes/100 leukoc yteson 08-08-2022 Lymphocytes/100 WBC (Bld) 16.4 % 19-41 [facility] Work Phone: Blood monocytes/100 leukocyt eson 08-08-2022 Monocytes/100 WBC (Bld) 6.3 % 0-10 [facility] [place] [facility] Work Phone: Blood platelet mean volumeon 08-08-2022 Platelet mean volume (Bld) [Entitic vol] 9.6 fL 6.2-12.0 [facility] Work Phone: Determination of erythrocyte mean corpuscular volume (MCV)on 08-08-2022 MCV (RBC) [Entitic vol] 87.7 fL 80-94 [facility] [place] [facility] Work Phone: Hematocrit Auto (Bld) [Volum e fraction]on 08-08-2022 Hematocrit (Bld) [Volume fraction] 42.1 % 40-54 [facility] Work Phone: INR in Blood by Coagulation assayon 08-08-2022 INR Coag (Bld) [Relative time] 1.3 {INR} [facility] Work Phone: Ketones Test strip Ql (U)on 08-08-2022 Ketones Ql (U) Negative Negative [facility] Work Phone: Laboratory - Chemistry and C hemistry - challengeon 08-08-2022 ALP [Catalytic activity/Vol] 131 U/L 45-117 [facility] Work Phone: ALT [Catalytic activity/Vol] 21 U/L 16-61 [facility] Work Phone: CO2 [Moles/Vol] 24.0 mmol/L 21.0-32.0 [facility] Work Phone: Globulin (S) [Mass/Vol] 3.5 g/dL 2.2-4.2 [facility] [place] [facility] Work Phone: Lipase [Catalytic activity/Vol] 91 U/L 73-393 [facility] Work Phone: Urea nitrogen/Creatinine [Mass ratio] 12.9 mg/mg 10-20 [facility] Work Phone: Laboratory - Coagulationon 0 08-08-2022 PT Coag (PPP) [Time] 15.9 s 11.7-14.9 [facility] Work Phone: Laboratory - Hematology and Cell countson 08-08-2022 Erythrocyte distribution width (RBC) [Entitic vol] 45.1 fL 35.1-43.9 [facility] Work Phone: Erythrocyte distribution width (RBC) [Ratio] 14.1 % 11.6-14.6 [facility] Work Phone: Immature granulocytes/100 WBC (Bld) 0.300 % 0.0-0.9 [facility] Work Phone: Comment on above: IG% - Immature Granu locytes (promyelocytes, myelocytes and metamyelocytes) > 1% indicates that a LEFT SHIFT is Present. MCH (RBC) [Entitic mass] 28.3 pg 27.0-32.0 [facility] Work Phone: Nucleated RBC/100 WBC (Bld) [Ratio] 0 % 0-5 [facility] Work Phone: MCHC Auto (RBC) [Mass/Vol]on 08-08-2022 MCHC (RBC) [Mass/Vol] 32.3 g/dL 32-36 [facility] Work Phone: Mucus LM Ql (Urine sed)on Mucus Ql (Urine sed) 0 SEEN /hpf [facility] Work Phone: Nitrite Test strip Ql (U)on 08-08-2022 Nitrite Ql (U) Negative Negative [facility] Work Phone: No Panel Informationon 08-08 Troponin I High Sensitivity 8 pg/mL 3.0-78.0 [facility] Work Phone: Comment on above: Please Note: New Serene t Units and Gender Specific Reference Ranges. For more information see Policy Stat Procedure [place] High Sensitivity Troponin (TNIH) and attachments. Estimated Creatinine Clearance Calc 40.34 ml/min [facility] Work Phone: Estimated GFR (MDRD) Amer 67 mL/min >60 [facility] Work Phone: Comment on above: GFR Calc Estimated GFR (MDRD) Non-Af Amer 55 mL/min >60 [facility] Work Phone: Comment on above: Non- GFR Calc Platelets bldon 08-08-2022 Platelets (Bld) [#/Vol] 210 10*3/uL 150-450 [facility] Work Phone: Protein Test strip Ql (U)on 08-08-2022 Protein Ql (U) Negative Negative [facility] Work Phone: Serum or plasma albumin isabell urement (mass/volume)on 08-08-2022 Albumin [Mass/Vol] 3.3 g/dL 3.2-5.0 [facility] Work Phone: Serum or plasma albumin/glob ulin mass ratioon 08-08-2022 Albumin/Globulin [Mass ratio] 0.9 {ratio} 0.9-2.4 [facility] Work Phone: Serum or plasma calcium isabell urement (mass/volume)on 08-08-2022 Calcium [Mass/Vol] 9.0 mg/dL 8.5-10.1 [facility] Work Phone: Serum or plasma creatinine m easurement (mass/volume)on 08-08-2022 Creatinine [Mass/Vol] 1.32 mg/dL 0.70-1.30 [facility] Work Phone: Comment on above: The validity of the calculated GFR & GFRAA in patients over 70 years has not been determined. Clinical correlation is essential. Serum or plasma urea nitroge n measurement (mass/volume)on 08-08-2022 Urea nitrogen [Mass/Vol] 17 mg/dL 7-18 [facility] Work Phone: Squamous epithelial cells de tection in urine sediment by light microscopyon 08-08-2022 Epithelial cells.squamous LM Ql (Urine sed) 0 SEEN /hpf 0-5 [facility] Work Phone: Thin prep Papanicolaou smear with manual screeningon 08-08-2022 Thin prep Papanicolaou smear with manual screening 15 U/L 15-37 [facility] Work Phone: Thin prep Papanicolaou smear with manual screening 11 5-15 [facility] Work Phone: Urine blood detectionon 07-21 RBC Ql (U) Negative Negative [facility] Work Phone: RBC Ql (U) 0 SEEN /hpf 0-5 [facility] Work Phone: Urine clarityon 08-08-2022 Clarity (U) Clear Clear [facility] Work Phone: Urine color determinationon 08-08-2022 Color (U) Yellow Yellow [facility] Work Phone: Urine glucose detectionon Glucose Ql (U) Normal mg/dl Normal [facility] Work Phone: Urine leukocyte esterase det ection by dipstickon 08-08-2022 Leukocyte esterase Test strip Ql (U) 25 /ul Negative [facility] Work Phone: Urine pHon 08-08-2022 pH (U) 7.0 [pH] 5.0 - 8.0 [facility] Work Phone: Urine sediment bacteria coun t by microscopy (number/high power field)on 08-08-2022 Bacteria LM.HPF (Urine sed) [#/Area] 0 /[HPF] None Seen [facility] Work Phone: Urine specific gravity measu rementon 08-08-2022 Specific gravity (U) [Rel density] 1.010 1.002-1.030 [facility] Work Phone: Urobilinogen Auto test strip Ql (U)on 08-08-2022 Urobilinogen Ql (U) Normal mg/dl Normal [facility] Work Phone: MRI CERVICAL SPINE WO IVCONo n 05-15-2022 [facility] Provider Note - ED v2on 10-2 Provider [...] SIGNS: T PRBP SpO2O2(LPM) %FiO2 Method 13-Sep-2021 11:40:[id number] /[id number] PHYSICAL EXAM CONSTITUTIONAL: Well appearing, [...] ill patient: no Electronic Signatures: Effie Douglas (TANKER DRIVER-[employer] ASSOCIATE) (Signed 13-Sep-2021 12:09) Authored: ED Notes, HPI, PMH, ROS, PE, Results/Vital Signs, Clinical Impression, Attestation, Chart Review, Scores Last Updated: 13-Sep-2021 12:09 by Effie Douglas (TANKER DRIVER-[employer]OCIATE) [facility] Clinical Summary: HMSPatient IDon [id number] OOP [facility] [place] [facility] Work Phone: Vital Signs Date Time Vital Sign Value Performing Clinician Facility 08-03-2025 08:45-0400 Body mass index (BMI) [Ratio] 31.95 kg/m2 Rashaun Manning Jr., MD Work Phone: [facility] 08-03-2025 08:45-0400 Body weight 95.62 kg Rashaun Manning Jr., MD Work Phone: [facility] 08-03-2025 08:45-0400 Diastolic blood pressure 71 mm[Hg] Rashaun Manning Jr., MD Work Phone: [facility] 08-03-2025 08:45-0400 Heart rate 73 /min Rashaun Manning Jr., MD Work Phone: [facility] 08-03-2025 08:45-0400 Respiratory rate 16 /min Rashaun Manning Jr., MD Work Phone: [facility] 08-03-2025 08:45-0400 SaO2% (BldA) [Mass fraction] 96 % Rashaun Manning Jr., MD Work Phone: [facility] 08-03-2025 08:45-0400 Systolic blood pressure 116 mm[Hg] Rashaun Manning Jr., MD Work Phone: [facility] 06-23-2025 07:41-0400 Body height 173 cm Galindo Yuan MD Work Phone: [facility] 06-23-2025 07:41-0400 Body mass index (BMI) [Ratio] 32.11 kg/m2 Galindo Yuan MD Work Phone: [facility] 06-23-2025 07:41-0400 Body weight 96.1 kg Galindo Yuan MD Work Phone: [facility] 06-23-2025 07:41-0400 Diastolic blood pressure 68 mm[Hg] Galindo Yuan MD Work Phone: [facility] 06-23-2025 07:41-0400 Heart rate 80 /min Galindo Yuan MD Work Phone: [facility] 06-23-2025 07:41-0400 SaO2% (BldA) [Mass fraction] 98 % Galindo Yuan MD Work Phone: [facility] 06-23-2025 07:41-0400 Systolic blood pressure 118 mm[Hg] Galindo Yuan MD Work Phone: [facility] 06-08-2025 09:00-0400 Diastolic blood pressure 72 mm[Hg] Ulisses Fox [facility] 06-08-2025 09:00-0400 Heart rate 83 /min Ulisses Fox [facility] 06-08-2025 09:00-0400 Systolic blood pressure 119 mm[Hg] Ulisses Fox [facility] 05-21-2025 11:31-0400 Body mass index (BMI) [Ratio] 32.6 kg/m2 Galindo Yuan MD Work Phone: [facility] 05-21-2025 11:31-0400 Body weight 94.4 kg Galindo Yuan MD Work Phone: [facility] 05-21-2025 11:31-0400 Diastolic blood pressure 70 mm[Hg] Galindo Yuan MD Work Phone: [facility] 05-21-2025 11:31-0400 Heart rate 76 /min Galindo Yuan MD Work Phone: [facility] 05-21-2025 11:31-0400 Respiratory rate 16 /min Galindo Yuan MD Work Phone: [facility] 05-21-2025 11:31-0400 Systolic blood pressure 124 mm[Hg] Galindo Yuan MD Work Phone: [facility] 03-23-2025 11:07-0400 Body height 170.2 cm Anurag Bah MD Work Phone: [facility] 03-23-2025 11:07-0400 Body mass index (BMI) [Ratio] 33.05 kg/m2 Anurag Bah MD Work Phone: [facility] 03-23-2025 11:07-0400 Body weight 95.71 kg Anurag Bah MD Work Phone: [facility] 03-23-2025 11:07-0400 Diastolic blood pressure 66 mm[Hg] Anurag Bah MD Work Phone: [facility] 03-23-2025 11:07-0400 Heart rate 77 /min Anurag Bah MD Work Phone: [facility] 03-23-2025 11:07-0400 Respiratory rate 12 /min Anurag Bah MD Work Phone: [facility] 03-23-2025 11:07-0400 SaO2% (BldA) [Mass fraction] 96 % Anurag Bah MD Work Phone: [facility] 03-23-2025 11:07-0400 Systolic blood pressure 114 mm[Hg] Anurag Bah MD Work Phone: [facility] 01-21-2025 10:30-0500 Body mass index (BMI) [Ratio] 33.46 kg/m2 Renan Bowling MD Work Phone: [facility] 01-21-2025 10:30-0500 Body weight 96.9 kg Renan Bowling MD Work Phone: [facility] 01-21-2025 10:30-0500 Heart rate 89 /min Renan Bowling MD Work Phone: [facility] 01-21-2025 10:30-0500 SaO2% (BldA) [Mass fraction] 98 % Renan Bowling MD Work Phone: [facility] 12-24-2024 08:58-0500 Body height 171.5 cm Pac 3 Work Phone: [facility] 12-24-2024 08:58-0500 Body mass index (BMI) [Ratio] 32.41 kg/m2 Pac 3 Work Phone: [facility] 12-24-2024 08:58-0500 Body weight 95.25 kg Pacc 3 Work Phone: [facility] 12-23-2024 08:25-0500 Body mass index (BMI) [Ratio] 33.56 kg/m2 Galindo Yuan MD Work Phone: [facility] 12-23-2024 08:25-0500 Body temperature 98.49 [degF] Galindo Yuan MD Work Phone: [facility] 12-23-2024 08:25-0500 Body weight 97.2 kg Galindo Yuan MD Work Phone: [facility] 12-23-2024 08:25-0500 Diastolic blood pressure 72 mm[Hg] Galindo Yuan MD Work Phone: [facility] 12-23-2024 08:25-0500 Heart rate 64 /min Galindo Yuan MD Work Phone: [facility] 12-23-2024 08:25-0500 Respiratory rate 16 /min Galindo Yuan MD Work Phone: [facility] 12-23-2024 08:25-0500 Systolic blood pressure 126 mm[Hg] Galindo Yuan MD Work Phone: [facility] 12-05-2024 11:40-0500 Body mass index (BMI) [Ratio] 33.25 kg/m2 Galindo Yuan MD Work Phone: [facility] 12-05-2024 11:40-0500 Body weight 96.3 kg Galindo Yuan MD Work Phone: [facility] 12-05-2024 11:40-0500 Diastolic blood pressure 70 mm[Hg] Galindo Yuan MD Work Phone: [facility] 12-05-2024 11:40-0500 Heart rate 56 /min Galindo Yuan MD Work Phone: [facility] 12-05-2024 11:40-0500 Respiratory rate 16 /min Galindo Yuan MD Work Phone: [facility] 12-05-2024 11:40-0500 SaO2% (BldA) [Mass fraction] 94 % Galindo Yuan MD Work Phone: [facility] 12-05-2024 11:40-0500 Systolic blood pressure 118 mm[Hg] Galindo Yuan MD Work Phone: [facility] 10-01-2024 09:28-0500 Body mass index (BMI) [Ratio] 33.39 kg/m2 Renan Bowling MD Work Phone: [facility] 10-01-2024 09:28-0500 Body weight 96.7 kg Renan Bowling MD Work Phone: [facility] 10-01-2024 09:28-0500 Heart rate 74 /min Renan Bowling MD Work Phone: [facility] 10-01-2024 09:28-0500 SaO2% (BldA) [Mass fraction] 97 % Renan Bowling MD Work Phone: [facility] 08-27-2024 09:47-0400 Diastolic blood pressure 74 mm[Hg] Blanco Hernandez MD Work Phone: [facility] 08-27-2024 09:47-0400 Heart rate 68 /min Blanco Hernandez MD Work Phone: [facility] 08-27-2024 09:47-0400 SaO2% (BldA) [Mass fraction] 98 % Blanco Hernandez MD Work Phone: [facility] 08-27-2024 09:47-0400 Systolic blood pressure 155 mm[Hg] Blanco Hernandez MD Work Phone: [facility] 08-04-2024 10:50-0400 Body height 170.2 cm Blanco Hernandez MD Work Phone: [facility] 08-04-2024 10:50-0400 Body mass index (BMI) [Ratio] 33.46 kg/m2 Blanco Hernandez MD Work Phone: [facility] 08-04-2024 10:50-0400 Body weight 96.9 kg Blanco Hernandez MD Work Phone: [facility] 08-04-2024 10:50-0400 Diastolic blood pressure 76 mm[Hg] Blanco Hernandez MD Work Phone: [facility] Comment on above: provider notified 08-04-2024 10:50-0400 Heart rate 81 /min Blanco Hernandez MD Work Phone: [facility] 08-04-2024 10:50-0400 SaO2% (BldA) [Mass fraction] 98 % Blanco Hernandez MD Work Phone: [facility] 08-04-2024 10:50-0400 Systolic blood pressure 159 mm[Hg] Blanco Hernandez MD Work Phone: [facility] Comment on above: provider notified 2024 08:53-0400 Body mass index (BMI) [Ratio] 32.2 kg/m2 Rashaun Manning Jr., MD Work Phone: [facility] 2024 08:53-0400 Body weight 93.26 kg Rashaun Manning Jr., MD Work Phone: [facility] 2024 08:53-0400 Diastolic blood pressure 81 mm[Hg] Rashaun Manning Jr., MD Work Phone: [facility] 2024 08:53-0400 Heart rate 71 /min Rashaun Manning Jr., MD Work Phone: [facility] 2024 08:53-0400 SaO2% (BldA) [Mass fraction] 99 % Rashaun Manning Jr., MD Work Phone: [facility] 2024 08:53-0400 Systolic blood pressure 118 mm[Hg] Rashaun Manning Jr., MD Work Phone: [facility] 07-24-2024 11:02-0400 Body mass index (BMI) [Ratio] 32.11 kg/m2 Diane Bruce PA-C Work Phone: [facility] 07-24-2024 11:02-0400 Body weight 93 kg Diane Bruce PA-C Work Phone: [facility] 07-24-2024 11:02-0400 Diastolic blood pressure 60 mm[Hg] Diane Bruce PA-C Work Phone: [facility] 07-24-2024 11:02-0400 Heart rate 69 /min Diane Bruce PA-C Work Phone: [facility] 07-24-2024 11:02-0400 Systolic blood pressure 128 mm[Hg] Diane Bruce PA-C Work Phone: [facility] 06-20-2024 07:24-0400 Diastolic blood pressure 76 mm[Hg] Ana Ean TANKER DRIVER.[employer] SAL[employer]IATE Work Phone: [facility] 06-20-2024 07:24-0400 Systolic blood pressure 140 mm[Hg] Ana Ean TANKER DRIVER.[employer] SALES ASSOCIATE Work Phone: [facility] 06-20-2024 07:06-0400 Body height 170.2 cm Ana Ean TANKER DRIVER.[employer] SALES ASSOCIATE Work Phone: [facility] 06-20-2024 07:06-0400 Body mass index (BMI) [Ratio] 33.25 kg/m2 Ana Ean TANKER DRIVER.[employer] SALES ASSOCIATE Work Phone: [facility] 06-20-2024 07:06-0400 Body weight 96.3 kg Ana Ean TANKER DRIVER.[employer] SALES ASSOCIATE Work Phone: [facility] 06-20-2024 07:06-0400 Heart rate 76 /min Ana Ean TANKER DRIVER.[employer] SALES ASSOCIATE Work Phone: [facility] 06-20-2024 07:06-0400 Respiratory rate 12 /min Ana Ean TANKER DRIVER.[employer] SALES ASSOCIATE Work Phone: [facility] 06-20-2024 07:06-0400 SaO2% (BldA) [Mass fraction] 97 % Ana Mckoy TANKER DRIVER.[employer] SALES ASSOCIATE Work Phone: [facility] 06-17-2024 09:32-0400 Body mass index (BMI) [Ratio] 33.6 kg/m2 Krystin Hernandez TANKER DRIVER.[employer] SALES ASSOCIATE Work Phone: [facility] 06-17-2024 09:32-0400 Body weight 97.3 kg Krystin Hernandez TANKER DRIVER.[employer] SALES ASSOCIATE Work Phone: [facility] 06-17-2024 09:32-0400 Heart rate 69 /min Krystin Hernandez TANKER DRIVER.[employer] SALES ASSOCIATE Work Phone: [facility] 06-17-2024 09:32-0400 SaO2% (BldA) [Mass fraction] 96 % Krystin Hernandez TANKER DRIVER.[employer] SALES ASSOCIATE Work Phone: [facility] 06-16-2024 11:36-0400 Body mass index (BMI) [Ratio] 33.52 kg/m2 Anurag Bah MD Work Phone: [facility] 06-16-2024 11:36-0400 Body weight 97.07 kg Anurag Bah MD Work Phone: [facility] 06-16-2024 11:36-0400 Diastolic blood pressure 76 mm[Hg] Anurag Bah MD Work Phone: [facility] 06-16-2024 11:36-0400 Heart rate 66 /min Anurag Bah MD Work Phone: [facility] 06-16-2024 11:36-0400 SaO2% (BldA) [Mass fraction] 96 % Anurag Bah MD Work Phone: [facility] 06-16-2024 11:36-0400 Systolic blood pressure 134 mm[Hg] Anurag Bah MD Work Phone: [facility] 03-26-2024 14:07-0400 Diastolic blood pressure 65 mm[Hg] Sakshi Rodriguez MD Work Phone: [facility] 03-26-2024 14:07-0400 Heart rate 68 /min Sakshi Rodriguez MD Work Phone: [facility] 03-26-2024 14:07-0400 Systolic blood pressure 141 mm[Hg] Sakshi Rodriguez MD Work Phone: [facility] 02-13-2024 09:53-0400 Body weight 94.9 kg Renan Bowling MD Work Phone: [facility] 02-13-2024 09:53-0400 Heart rate 74 /min Renan Bowling MD Work Phone: [facility] 02-13-2024 09:53-0400 SaO2% (BldA) [Mass fraction] 97 % Renan Bowling MD Work Phone: [facility] 01-18-2024 09:01-0500 Body weight 95.25 kg Rashaun Manning Jr., MD Work Phone: [facility] 01-18-2024 09:01-0500 Diastolic blood pressure 76 mm[Hg] Rashaun Manning Jr., MD Work Phone: [facility] 01-18-2024 09:01-0500 Heart rate 76 /min Rashaun Manning Jr., MD Work Phone: [facility] 01-18-2024 09:01-0500 Respiratory rate 18 /min Rashaun Manning Jr., MD Work Phone: [facility] 01-18-2024 09:01-0500 SaO2% (BldA) [Mass fraction] 97 % Rashaun Manning Jr., MD Work Phone: [facility] 01-18-2024 09:01-0500 Systolic blood pressure 127 mm[Hg] Rashaun Manning Jr., MD Work Phone: [facility] 10-12-2023 18:57-0500 Diastolic blood pressure 98 mm[Hg] [facility] 10-12-2023 18:57-0500 Heart rate 88 /min [facility] 10-12-2023 18:57-0500 Respiratory rate 18 /min [facility] 10-12-2023 18:57-0500 SaO2% (BldA) [Mass fraction] 93 % [facility] 10-12-2023 18:57-0500 Systolic blood pressure 110 mm[Hg] [facility] 10-12-2023 16:21-0500 Body temperature 97.1 [degF] [facility] 10-12-2023 16:00-0500 Body height 171.45 cm [facility] 10-12-2023 16:00-0500 Body mass index (BMI) [Ratio] 32.5 kg/m2 [facility] 10-12-2023 16:00-0500 Body weight 95.8 kg [facility] 10-12-2023 14:51-0500 Body temperature 103.21 [degF] Yossi Soham TANKER DRIVER.[employer] SAL[employer] ASSOCIATE Work Phone: [facility] 10-12-2023 14:51-0500 Body weight 92.08 kg Yossi Soham TANKER DRIVER.[employer] SALES ASSOCIATE Work Phone: [facility] 10-12-2023 14:51-0500 Diastolic blood pressure 85 mm[Hg] Yossi Soham TANKER DRIVER.[employer] SALES ASSOCIATE Work Phone: [facility] 10-12-2023 14:51-0500 Heart rate 101 /min Yossi Soham TANKER DRIVER.[employer] SALES ASSOCIATE Work Phone: [facility] 10-12-2023 14:51-0500 Respiratory rate 18 /min Yossi Soham TANKER DRIVER.[employer] SALES ASSOCIATE Work Phone: [facility] 10-12-2023 14:51-0500 SaO2% (BldA) [Mass fraction] 97 % Yossi Soham TANKER DRIVER.[employer] SALES ASSOCIATE Work Phone: [facility] 10-12-2023 14:51-0500 Systolic blood pressure 160 mm[Hg] Yossi Soham TANKER DRIVER.[employer] SALES ASSOCIATE Work Phone: [facility] 07-19-2023 11:33-0400 Body height 170.2 cm Sakshi Nunez MD Work Phone: [facility] 07-19-2023 11:33-0400 Body weight 96.16 kg Sakshi Nunez MD Work Phone: [facility] 07-19-2023 11:33-0400 Diastolic blood pressure 70 mm[Hg] Sakshi Nunez MD Work Phone: [facility] 07-19-2023 11:33-0400 Heart rate 66 /min Sakshi Nunez MD Work Phone: [facility] 07-19-2023 11:33-0400 Systolic blood pressure 116 mm[Hg] Sakshi Nunez MD Work Phone: [facility] 07-13-2023 08:50-0400 Body weight 94.8 kg Rashaun Manning Jr., MD Work Phone: [facility] 07-13-2023 08:50-0400 Diastolic blood pressure 74 mm[Hg] Rashaun Manning Jr., MD Work Phone: [facility] 07-13-2023 08:50-0400 Heart rate 72 /min Rashaun Manning Jr., MD Work Phone: [facility] 07-13-2023 08:50-0400 Respiratory rate 18 /min Rashaun Manning Jr., MD Work Phone: [facility] 07-13-2023 08:50-0400 SaO2% (BldA) [Mass fraction] 97 % Rashaun Manning Jr., MD Work Phone: [facility] 07-13-2023 08:50-0400 Systolic blood pressure 128 mm[Hg] Rashaun Manning Jr., MD Work Phone: [facility] 07-09-2023 08:13-0400 Body height 170.2 cm Ana Older TANKER DRIVER.[employer] SALES ASSOCIATE Work Phone: [facility] 07-09-2023 08:13-0400 Body weight 94.8 kg Ana Older TANKER DRIVER.[employer] SALES ASSOCIATE Work Phone: [facility] 07-09-2023 08:13-0400 Diastolic blood pressure 75 mm[Hg] Ana Older TANKER DRIVER.[employer]AR SALES ASSOCIATE Work Phone: [facility] 07-09-2023 08:13-0400 Heart rate 80 /min Ana Older TANKER DRIVER.[employer]AR SALES ASSOCIATE Work Phone: [facility] 07-09-2023 08:13-0400 Respiratory rate 16 /min Ana Older TANKER DRIVER.[employer]AR SALES ASSOCIATE Work Phone: [facility] 07-09-2023 08:13-0400 Systolic blood pressure 124 mm[Hg] Ana Older TANKER DRIVER.[employer] SALES ASSOCIATE Work Phone: [facility] 06-28-2023 13:53-0400 Body weight 94.35 kg Galindo Yuan MD Work Phone: [facility] 06-28-2023 13:53-0400 Diastolic blood pressure 68 mm[Hg] Galindo Yuan MD Work Phone: [facility] 06-28-2023 13:53-0400 Heart rate 76 /min Galindo Yuan MD Work Phone: [facility] 06-28-2023 13:53-0400 Respiratory rate 20 /min Galindo Yuan MD Work Phone: [facility] 06-28-2023 13:53-0400 Systolic blood pressure 120 mm[Hg] Galindo Yuan MD Work Phone: [facility] 06-24-2023 11:17-0400 Diastolic blood pressure 60 mm[Hg] [facility] 06-24-2023 11:17-0400 Heart rate 63 /min [facility] 06-24-2023 11:17-0400 Respiratory rate 17 /min [facility] 06-24-2023 11:17-0400 SaO2% (BldA) [Mass fraction] 97 % [facility] 06-24-2023 11:17-0400 Systolic blood pressure 112 mm[Hg] [facility] 06-24-2023 07:57-0400 Body height 170.18 cm [facility] 06-24-2023 07:57-0400 Body mass index (BMI) [Ratio] 33 kg/m2 [facility] 06-24-2023 07:57-0400 Body temperature 97.8 [degF] [facility] 06-24-2023 07:57-0400 Body weight 95.9 kg [facility] 04-11-2023 13:00-0400 Diastolic blood pressure 69 mm[Hg] Sakshi Rodriguez MD Work Phone: [facility] 04-11-2023 13:00-0400 Heart rate 77 /min Sakshi Rodriguez MD Work Phone: [facility] 04-11-2023 13:00-0400 Systolic blood pressure 130 mm[Hg] Sakshi Rodriguez MD Work Phone: [facility] 02-12-2023 09:08-0400 Body weight 96.62 kg Renan Bowling MD Work Phone: [facility] 02-12-2023 09:08-0400 Heart rate 76 /min Renan Bowling MD Work Phone: [facility] 02-12-2023 09:08-0400 SaO2% (BldA) [Mass fraction] 96 % Renan Bowling MD Work Phone: [facility] 01-27-2023 09:25-0500 Diastolic blood pressure 72 mm[Hg] [facility] 01-27-2023 09:25-0500 Heart rate 70 /min [facility] 01-27-2023 09:25-0500 Respiratory rate 18 /min [facility] 01-27-2023 09:25-0500 SaO2% (BldA) [Mass fraction] 96 % [facility] 01-27-2023 09:25-0500 Systolic blood pressure 124 mm[Hg] [facility] 01-27-2023 09:13-0500 Body height 170.18 cm [facility] 01-27-2023 09:13-0500 Body mass index (BMI) [Ratio] 34.4 kg/m2 [facility] 01-27-2023 09:13-0500 Body temperature 97.3 [degF] [facility] 01-27-2023 09:13-0500 Body weight 99.79 kg [facility] 01-05-2023 08:41-0500 Body weight 99.7 kg Rashaun Manning Jr., MD Work Phone: [facility] 01-05-2023 08:41-0500 Diastolic blood pressure 78 mm[Hg] Rashaun Manning Jr., MD Work Phone: [facility] 01-05-2023 08:41-0500 Heart rate 82 /min Rashaun Manning Jr., MD Work Phone: [facility] 01-05-2023 08:41-0500 Respiratory rate 16 /min Rashaun Manning Jr., MD Work Phone: [facility] 01-05-2023 08:41-0500 SaO2% (BldA) [Mass fraction] 97 % Rashaun Manning Jr., MD Work Phone: [facility] 01-05-2023 08:41-0500 Systolic blood pressure 132 mm[Hg] Rashaun Manning Jr., MD Work Phone: [facility] 12-20-2022 09:30-0500 Body temperature 98.2 [degF] Galindo Yuan MD Work Phone: [facility] 12-20-2022 09:30-0500 Body weight 99.34 kg Galindo Yuan MD Work Phone: [facility] 12-20-2022 09:30-0500 Diastolic blood pressure 64 mm[Hg] Galindo Yuan MD Work Phone: [facility] 12-20-2022 09:30-0500 Heart rate 76 /min Galindo Yuan MD Work Phone: [facility] 12-20-2022 09:30-0500 Respiratory rate 20 /min Galindo Yuan MD Work Phone: [facility] 12-20-2022 09:30-0500 Systolic blood pressure 138 mm[Hg] Galindo Yuan MD Work Phone: [facility] 09-04-2022 16:34-0400 Body weight 100.7 kg Rashaun Manning Jr., MD Work Phone: [facility] 09-04-2022 16:34-0400 Diastolic blood pressure 74 mm[Hg] Rashaun Manning Jr., MD Work Phone: [facility] 09-04-2022 16:34-0400 Heart rate 92 /min Rashaun Manning Jr., MD Work Phone: [facility] 09-04-2022 16:34-0400 SaO2% (BldA) [Mass fraction] 94 % Rashaun Manning Jr., MD Work Phone: [facility] 09-04-2022 16:34-0400 Systolic blood pressure 130 mm[Hg] Rashaun Manning Jr., MD Work Phone: [facility] 08-08-2022 13:22-0400 Diastolic blood pressure 80 mm[Hg] [facility] Work Phone: 08-08-2022 13:22-0400 Heart rate 71 /min [facility] Work Phone: 08-08-2022 13:22-0400 Systolic blood pressure 155 mm[Hg] [facility] Work Phone: 08-08-2022 12:00-0400 Respiratory rate 18 /min [facility] Work Phone: 08-08-2022 12:00-0400 SaO2% (BldA) [Mass fraction] 97 % [facility] Work Phone: 08-08-2022 08:08-0400 Body height 170.18 cm [facility] Work Phone: 08-08-2022 08:08-0400 Body mass index (BMI) [Ratio] 34.9 kg/m2 [facility] Work Phone: 08-08-2022 08:08-0400 Body temperature 98.1 [degF] [facility] Work Phone: 08-08-2022 08:08-0400 Body weight 101.1 kg [facility] Work Phone: 06-20-2022 11:37-0400 Body height 170.2 cm Faby Georges TANKER DRIVER.[employer] SALES ASSOCIATE Work Phone: [facility] 06-20-2022 11:37-0400 Body weight 97.52 kg Faby Georges TANKER DRIVER.[employer] SALES ASSOCIATE Work Phone: [facility] 06-20-2022 11:37-0400 Diastolic blood pressure 69 mm[Hg] Faby Georges TANKER DRIVER.[employer]AR SALES ASSOCIATE Work Phone: [facility] 06-20-2022 11:37-0400 Heart rate 72 /min Faby Georges TANKER DRIVER.[employer] SALES ASSOCIATE Work Phone: [facility] 06-20-2022 11:37-0400 SaO2% (BldA) [Mass fraction] 97 % Faby Georges TANKER DRIVER.[employer] SALES ASSOCIATE Work Phone: [facility] 06-20-2022 11:37-0400 Systolic blood pressure 126 mm[Hg] Faby Georges TANKER DRIVER.[employer] SALES ASSOCIATE Work Phone: [facility] 05-01-2022 09:04-0400 Body temperature 98.91 [degF] Rashaun Manning Jr., MD Work Phone: [facility] 05-01-2022 09:04-0400 Body weight 97.98 kg Rashaun Manning Jr., MD Work Phone: [facility] 05-01-2022 09:04-0400 Diastolic blood pressure 72 mm[Hg] Rashaun Manning Jr., MD Work Phone: [facility] 05-01-2022 09:04-0400 Heart rate 85 /min Rashaun Manning Jr., MD Work Phone: [facility] 05-01-2022 09:04-0400 Respiratory rate 18 /min Rashaun Manning Jr., MD Work Phone: [facility] 05-01-2022 09:04-0400 SaO2% (BldA) [Mass fraction] 97 % Rashaun Manning Jr., MD Work Phone: [facility] 05-01-2022 09:04-0400 Systolic blood pressure 110 mm[Hg] Rashaun Manning Jr., MD Work Phone: [facility] NEGATED: Highlighted [id number] 10:31-0400 BMI (Body Mass Index) 33.79 kg/m2 Mary Oro [facility] Work Phone: NEGATED: Highlighted [id number] 10:31-0400 Body weight 103.42 kg Mary Oro PROJECT PRODUCT MANAGER [facility] Work Phone: NEGATED: Highlighted [id number] 10:31-0400 Body weight 104 kg Mary Abreuer [facility] Work Phone: NEGATED: Highlighted [id number] 10:31-0400 BP Diastolic 75 mm[Hg] Mary Bradyer PROJECT PRODUCT MANAGER [facility] Work Phone: NEGATED: Highlighted [id number] 10:31-0400 BP Systolic 113 mm[Hg] Mary Bradyer PROJECT PRODUCT MANAGER [facility] Work Phone: NEGATED: Highlighted [id number] 10:31-0400 Height 175.26 cm Mary Bradyer [facility] Work Phone: NEGATED: Highlighted [id number] 10:31-0400 Height 175 cm Mary Bradyer PROJECT PRODUCT MANAGER [facility] Work Phone: NEGATED: Highlighted [id number] 10:31-0400 Pulse (Heart Rate) 86 /min Mary Oro LPN [facility] Work Phone: Encounters Encounter Date Encounter Type Care Provider Facility Start: 09-25-2025 End: 09-25-2025 ambulatory GALINDO Sam KWABENA Facility:[facility] Start: 09-21-2025 End: 09-21-2025 ambulatory KARON KWABENA Facility:[facility] Start: 09-09-2025 End: 09-09-2025 ambulatory KARON KWABENA Facility:[facility] Start: 08-03-2025 End: 08-03-2025 Patient encounter procedure Rashaun Manning MD Work Phone: Neurology Comment on above: ETHAN on CPAP (Primary Dx); Class 1 obesity with body mass index (BMI) of 31.0 to 31.9 in adult, unspecified obesity type, unspecified whether serious comorbidity present; Parasomnia, unspecified type Start: 08-03-2025 End: 08-03-2025 ambulatory GALINDO Sam KWABENA Facility:[facility] Start: 07-23-2025 End: 07-23-2025 Telephone encounter Ruth Jesús CHAPPELL Work Phone: [facility] [place] Start: 06-25-2025 ambulatory GALINDO Sam KWABENA Faci lity:[facility] Start: 06-23-2025 End: 06-23-2025 ambulatory KARON KWABENA Facility:[facility] Start: 06-23-2025 End: 06-23-2025 ambulatory KARON KWABENA Facility:[facility] Start: 06-23-2025 End: 06-23-2025 Patient encounter procedure Galindo Yuan MD Work Phone: Internal Medicine [place] Comment on above: Medicare annual well ness visit, subsequent (Primary Dx); Screening for depression; Encounter for screening examination for other mental health and behavioral disorders; 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); Coronary artery disease of [place] artery of [place] heart with stable angina pectoris; Primary hypertension; [...] Start: 06-16-2025 End: 06-16-2025 ambulatory GALINDO YUAN Facility:[facility] Start: 06-08-2025 End: 06-08-2025 ambulatory Ulisses Fox PT [facility] Comment on above: Weakness of both leg s (Primary Dx); Failed back syndrome; Lumbar radiculopathy Start: 05-21-2025 End: 05-21-2025 Office outpatient visit 15 minutes Galindo Yuan MD Work Phone: Internal Medicine [place] Comment on above: Weakness of both leg s (Primary Dx); Failed back syndrome; Lumbar radiculopathy; Status post insertion of spinal cord stimulator Start: 05-21-2025 End: 05-21-2025 ambulatory GALINDO YUAN Facility:[facility] Start: 04-22-2025 End: 04-22-2025 Postop follow up visit related to original px Odin Ochoa MD Work Phone: [facility] Comment on above: 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); S/P insertion of spinal cord stimulator Start: 04-10-2025 End: 04-10-2025 ambulatory ODIN OCHOA [facility] Start: 04-01-2025 End: 06-01-2025 Follow-up encounter Anurag Bah MD Work Phone: [facility] [place] Start: 04-01-2025 End: 04-01-2025 Telephone encounter Anurag Bah MD Work Phone: [facility] [place] Comment on above: Cardiac Clearance Start: 04-01-2025 End: 04-01-2025 ambulatory GALINDO MORENOASQUEZ [facility] Start: 04-01-2025 End: 04-01-2025 Encounter for other preprocedural examination GALINDO YUAN [facility] Start: 03-26-2025 End: 03-26-2025 ambulatory GALINDO Sam YUAN Facility:[facility] Start: 03-23-2025 Encounter for preprocedural cardiovascular examination ANURAG BAH [facility] Start: 03-23-2025 End: 03-23-2025 Patient encounter procedure Anurag Bah MD Work Phone: Cardiology Comment on above: Coronary artery dise ase of [place] artery of [place] heart with stable angina pectoris (Primary Dx); Paroxysmal atrial fibrillation (HCC); Hypercholesteremia; Primary hypertension; Pre-operative cardiovascular examination Start: 03-23-2025 End: 06-23-2025 Patient encounter status Anurag Bah MD Work Phone: [facility] Start: 03-23-2025 End: 03-23-2025 ambulatory GALINDO Sam KWABENA Facility:[facility] Start: 03-13-2025 End: 03-13-2025 ambulatory GALINDO Sam YUAN Facility:[facility] Start: 03-12-2025 End: 03-12-2025 ambulatory GALINDO Sam YUAN Facility:[facility] Start: 02-24-2025 End: 02-24-2025 Follow-up encounter Ruth Perla DO Work Phone: [facility] Comment on above: Derm Surgical Path R esults (Called pt to discuss biopsy results, no answer, v-mail left for pt to return call./) Start: 02-18-2025 End: 02-18-2025 ambulatory GALINDO Sam YUAN Facility:[facility] Start: 02-18-2025 End: 02-18-2025 Patient encounter procedure Ruth Perla DO Work Phone: [facility] Comment on above: Skin exam, screening for cancer (Primary Dx); Hx of nonmelanoma skin cancer; Neoplasm of skin; Multiple benign nevi; Lentigines; Rios angioma; Seborrheic keratosis Start: 02-04-2025 End: 02-04-2025 ambulatory ODIN OCHOA [facility] Start: 02-04-2025 End: 02-04-2025 Office outpatient new 30 minutes Odin Ochoa MD Work Phone: [facility] Comment on above: 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 Ochoa at (Records faxed to Dr. Ochoa's Office) Start: 01-23-2025 End: 01-23-2025 ambulatory RENAN BOWLING Facility:[facility] Start: 01-23-2025 End: 01-23-2025 Subsequent hospital visit by physician Mri Radio [facility] (I-Stat/1.5t) Work Phone: Radiology Comment on above: Chronic midline thor acic back pain [M54.6, G89.29] Start: 01-21-2025 End: 01-21-2025 ambulatory RENAN BOWLING Facility:[facility] Start: 01-21-2025 End: 01-21-2025 Patient encounter procedure Renan Bowling MD Work Phone: Pain Management Comment on above: Chronic midline thor acic back pain (Primary Dx); Lumbar radiculopathy; Failed back syndrome of lumbar spine Start: 01-14-2025 End: 01-14-2025 ambulatory RENAN BOWLING Facility:[facility] Start: 01-02-2025 End: 01-02-2025 Telephone encounter Renan Bowling MD Work Phone: Pain Management Comment on above: Insurance Authorizat ion (SCS Trial) Start: 12-24-2024 End: 12-24-2024 [facility] Work Phone: Pre Anest[facility] Start: 12-24-2024 End: 12-24-2024 ambulatory RENAN BOWLING Facility:[facility] Start: 12-24-2024 End: 12-24-2024 Anesthesia consultation Pac 3 Work Phone: Pre Anesthesia Comment on above: Pre-op evaluation (P rimary Dx); Coronary artery disease of [place] artery of [place] heart with stable angina pectoris (HCC); Hypercholesteremia; Paroxysmal atrial fibrillation (HCC); ETHAN on CPAP; 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 Start: 12-24-2024 End: 12-24-2024 Preprocedural examination done [facility] Work Phone: [facility] Work Phone: Start: 12-23-2024 End: 12-24-2024 Telephone encounter Galindo Yuan MD Work Phone: Internal Medicine [place] Comment on above: Medication Problem Start: 12-23-2024 End: 12-23-2024 Office outpatient visit 15 minutes Galindo Yuan MD Work Phone: Internal Medicine [place] Comment on above: Nocturnal leg cramps (Primary Dx); Essential hypertension; Paroxysmal atrial fibrillation (HCC); Coronary artery disease of [place] artery of [place] heart with stable angina pectoris (HCC); 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); Kidney insufficiency Start: 12-23-2024 End: 12-23-2024 ambulatory GALINDO YUAN Facility:[facility] Start: 12-15-2024 End: 12-15-2024 Orders Only Renan Bowling MD Work Phone: Pain Management Comment on above: 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); Failed back syndrome of lumbar spine; Lumbar radiculopathy; Lumbar spondylosis Start: 12-11-2024 End: 12-11-2024 ambulatory JUAN TORRES Facility:[facility] Start: 12-11-2024 End: 12-11-2024 Patient encounter [...] Galindo Yuan MD Work Phone: Internal Medicine [place] Comment on above: Epididymitis (Primar y Dx) Start: 12-05-2024 End: 12-05-2024 ambulatory KARON KWABENA Facility:[facility] Start: 12-03-2024 End: 12-03-2024 Telephone encounter Renan Bowling MD Work Phone: Pain Management Comment on above: Designer And Patternmaker - O ther (SCS Trial) Start: 12-03-2024 End: 12-03-2024 Patient encounter procedure Silvia Massey PhD Work Phone: Pain Management Comment on above: 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); Failed back syndrome of lumbar spine Start: 11-25-2024 End: 11-26-2024 Refill Galindo Yuan MD Work Phone: Internal Medicine [place] Comment on above: Refill Request Start: 11-24-2024 End: 11-24-2024 Telephone encounter Renan Bowling MD Work Phone: Pain Management Comment on above: Patient Update Start: 11-05-2024 End: 11-05-2024 Nursing evaluation of patient and report Mi Nurse Work Phone: Family Medicine [place] Comment on above: Encounter for immuni zation Start: 11-05-2024 End: 11-05-2024 ambulatory KARON KWABENA Facility:[facility] Start: 10-13-2024 End: 10-14-2024 Telephone encounter Renan Bowling MD Work Phone: Pain Management Comment on above: Results (Thoracic XR AY) Start: 10-02-2024 End: 10-02-2024 ambulatory RENAN BOWLING Facility:[facility] Start: 10-02-2024 End: 10-02-2024 Subsequent hospital visit by physician José Miguel [facility] [place] Work Phone: Radiology Comment on above: 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] Start: 10-01-2024 End: 10-01-2024 ambulatory RENAN BOWLING Facility:[facility] Start: 10-01-2024 End: 10-01-2024 Patient encounter procedure Renan Bowling MD Work Phone: Pain Management Comment on above: Failed back syndrome of lumbar spine (Primary Dx); Chronic midline thoracic back pain Refill Request Start: 09-22-2024 End: 09-22-2024 Patient encounter procedure Maryellen Mitchell MD Work Phone: Dermatology Comment on above: Sebaceous adenoma of face (Primary Dx) Start: 09-10-2024 End: 09-10-2024 Refill Galindo Yuan MD Work Phone: Internal Medicine [place] Comment on above: Refill Request Start: 09-09-2024 [...] encounter Ruth Perla DO Work Phone: Dermatology [facility] Comment on above: Results Start: 08-27-2024 End: 08-27-2024 Patient encounter procedure Blanco Hernandez MD Work Phone: Neurosurgery Comment on above: Spondylolisthesis of lumbar region (Primary Dx); Spinal stenosis, lumbar region with neurogenic claudication Start: 08-27-2024 End: 08-27-2024 ambulatory BLANCO HERNANDEZ Facility:[facility] Start: 08-20-2024 End: 08-20-2024 Patient encounter procedure Ruth Perla DO Work Phone: Dermatology [facility] Comment on above: Skin exam, screening for cancer (Primary Dx); Hx of nonmelanoma skin cancer; Neoplasm of uncertain behavior of skin; Actinic keratosis; Rios angioma; Lentigines; Multiple benign nevi; Seborrheic keratosis Start: 08-12-2024 End: 09-02-2024 Telephone encounter Blanco Hernandez MD Work Phone: [facility] [place] Start: 08-06-2024 End: 08-06-2024 Subsequent hospital visit by physician [facility] (I-Stat) Work Phone: Cat Scan Comment on above: Radiculopathy of lum bar region [M54.16] Start: 08-04-2024 End: 08-04-2024 Patient encounter procedure Blanco Hernandez MD Work Phone: [facility] [place] Comment on above: Radiculopathy of lum bar [...] Ana Mckoy APRN.CNP Work Phone: Internal Medicine [place] Comment on above: Medicare annual well ness [...] End: 06-17-2024 Patient encounter procedure Krystin Hernandez APRN.SOLAR SALES ASSOCIATE Work Phone: Pain Management Comment on above: Lumbar radiculopathy (Primary Dx); Lumbar spondylosis Start: 06-16-2024 End: 06-16-2024 Patient encounter procedure Anurag Bah MD Work Phone: Cardiology Comment on above: Coronary artery dise ase of [place] artery of [place] heart with stable angina pectoris (HCC) (Primary [...] above: Basal cell carcinoma (BCC) of left yazdanism region Start: 03-18-2024 End: 03-18-2024 ambulatory RENAN BOWLING Facility:[facility] Start: 03-11-2024 Telephone encounter Sakshi Nunez MD [...] fournier caregiver Renan Bowling MD Work Phone: [facility] Start: 02-21-2024 ambulatory Renan Bowling MD Work Phone: Pain Management Comment on above: Results and Recommen dations Start: 02-21-2024 E-mail encounter fro shantanu caregiver Renan Bowling MD Work Phone: [facility] Start: 02-21-2024 Telephone encounter Renan ch MD Work Phone: Pain Management Comment on above: Results (Lumbar MRI ) Start: 02-19-2024 Telephone encounter Ruth Stone josh DO Work Phone: Dermatology [place] Comment on above: Results Start: 02-19-2024 End: 02-19-2024 Subsequent hospital visit by physician [facility] (I-Stat/1.5t) Work Phone: Radiology Comment on [...] patient and report Mi Nurse Work Phone: [facility] Medicine [place] Comment on above: Paroxysmal atrial fi brillation [...] Galindo mccormick MD Work Phone: Internal Medicine [place] Comment on above: Results Refill Request Start: [...] Emergency department patient visit Galindo Yuan Facility:[facility] Start: 10-12-2023 End: 10-12-2023 Emergency department patient visit [facility] Work Phone: Start: 10-12-2023 End: 10-12-2023 Patient encounter procedure Yossi Rousseau APRN.SOLAR SALES ASSOCIATE Work Phone: [place] [facility] Comment on above: URI, acute (Primary Dx); Sore throat; Urinary frequency; Gross hematuria; Pre-syncope Start: 09-27-2023 Refill Ana ParishSOLAR SALES ASSOCIATE Work Phone: Internal Medicine [place] Comment on above: Refill Request Start: 09-14-2023 Refill Galindo albarran MD Work Phone: Internal Medicine [place] Comment on above: Refill Request Start: 07-19-2023 [...] Ana Edwards APRN.CNP Work Phone: Internal Medicine [place] Comment on above: Medicare annual well ness visit, subsequent (Primary Dx); Encounter for immunization Start: 06-29-2023 Telephone encounter Galindo mccormick MD Work Phone: Internal Medicine [place] Comment on above: Medication Problem Start: 06-28-2023 End: 06-28-2023 Patient encounter procedure Galindo Yuan MD Work Phone: Internal Medicine [place] Comment on above: Coronary artery dise ase of [place] artery of [place] heart with stable angina pectoris (HCC) (Primary Dx); 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); Paroxysmal atrial fibrillation (HCC); Right lower quadrant pain; Adjustment insomnia; Acute diastolic heart failure (HCC); Type 2 diabetes mellitus with stage 3a chronic kidney disease, without long-term current use of insulin (HCC) Start: 06-24-2023 End: 06-24-2023 Emergency department patient visit Galindo Yuan Facility:[facility] Start: 06-24-2023 End: 06-24-2023 Emergency department patient visit [facility] Work Phone: Start: 05-11-2023 End: [...] encounter Ruth moreno DO Work Phone: Dermatology [place] Comment on above: Results Start: 03-14-2023 End: 03-14-2023 Patient encounter procedure Ruth Perla DO Work Phone: Dermatology [place] Comment on above: Skin exam, screening for cancer (Primary Dx); Hx of nonmelanoma skin cancer; Neoplasm of skin; Actinic keratosis; Lentigines; Rios angioma; Seborrheic keratosis Start: 02-22-2023 End: 02-22-2023 ambulatory Ancelmo Madrigal PT Work Phone: [facility] Comment on above: Cervicalgia (Primary Dx) Start: 02-20-2023 End: 02-20-2023 ambulatory Sheryl Mancia SENIOR RESEARCH CONSULTANT Work Phone: [facility] Comment on above: Cervicalgia [...] Emergency department patient visit Galindo Yuan Facility:[facility] Start: 01-27-2023 End: 01-27-2023 Emergency department patient visit [facility] Start: 01-15-2023 Telephone encounter Krystin arrington APRN.CNP Work Phone: Pain Management Comment on above: Medication Problem Start: 01-05-2023 Telephone encounter Camilogan Renner APRN.SOLAR SALES ASSOCIATE Work Phone: [facility] Comment on above: Results Start: 01-05-2023 End: 01-05-2023 Patient encounter procedure Rashaun aMnning MD Work Phone: Neurology Comment on above: ETHAN on CPAP (Primary Dx); Parasomnia, unspecified type; Cervicalgia; Vertigo; Other insomnia Start: 12-28-2022 Telephone encounter Galindo mccormick MD Work Phone: Internal Medicine [place] Comment on above: Results Start: 12-26-2022 Orders Only Anurag lagunas MD Work Phone: [facility] Cardiology [place] Comment on above: Coronary artery dise ase of [place] artery of [place] heart with stable angina pectoris (HCC) (Primary Dx) Start: 12-22-2022 End: 12-22-2022 Subsequent hospital visit by physician [facility] Work Phone: Radiology Comment on above: Screening for AAA (a bdominal aortic aneurysm) [Z13.6] Start: 12-21-2022 Telephone encounter Sakshi Nunez MD Work Phone: [address] [place] [address] Comment on above: Orders Start: 12-20-2022 End: 12-20-2022 Patient encounter procedure Galindo Yuan MD Work Phone: Internal Medicine [place] Comment on above: Hypertensive 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 4 chronic kidney disease, or unspecified chronic kidney disease (Primary Dx); 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); Essential hypertension; Paroxysmal atrial fibrillation (HCC); Need for COVID-19 vaccine; Screening for AAA (abdominal aortic aneurysm) Start: 12-04-2022 Refill Galindo albarran MD Work Phone: Internal Medicine [place] Comment on above: Refill Request Start: 11-21-2022 Orders Only Renan Bowling MD Work Phone: Pain Management Comment on above: Cervicalgia (Primary Dx); Cervical spondylosis; Cervical facet syndrome; History of fusion of cervical spine Start: 11-16-2022 Refill Ana ParishSOLAR SALES ASSOCIATE Work Phone: Internal Medicine [place] Comment on above: Refill Request Start: 11-06-2022 Refill Galindo albarran MD Work Phone: Internal Medicine [place] Comment on above: Refill Request Start: 09-27-2022 Refill Galindo albarran MD Work Phone: [address] [place] [address] Comment on above: Refill Request Start: 09-25-2022 [...] 08-30-2022 ambulatory Mi Nurse Work Phone: Family [facility] Start: 08-21-2022 Telephone encounter Faby parisi APRN.SOLAR SALES ASSOCIATE Work Phone: Cardiology Comment on above: Results Start: 08-21-2022 End: 08-21-2022 Patient encounter procedure Juan Torres Work Phone: Podiatry Comment on above: 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) (Primary Dx); Onychomycosis; Pain in toe of right foot; Pain in toe of left foot; Hyperkeratosis; Hammer toes of both feet Start: 08-08-2022 End: 08-08-2022 [facility] Start: 07-12-2022 End: 07-12-2022 Patient encounter procedure Linden Iglesias PA-C Work Phone: Dermatology [facility] Comment on above: Actinic keratosis (P rimary Dx); History of nonmelanoma skin cancer; Seborrheic keratosis Start: 06-20-2022 End: 06-20-2022 Patient encounter procedure Faby Georgesisak WATTS Work Phone: Cardiology Comment on above: Coronary artery dise ase involving [place] coronary artery of [place] heart without angina pectoris (Primary Dx); Paroxysmal atrial fibrillation (HCC); Visit for monitoring Tikosyn therapy; 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 Start: 06-19-2022 Refill Galindo albarran MD Work Phone: Internal Medicine [place] Comment on above: Medication Problem Start: 06-06-2022 ambulatory Galindo albarran MD Work Phone: Internal Medicine [place] Start: 05-16-2022 Telephone encounter Rashaun Manning MD Work Phone: Neurology Comment on above: Results Start: 05-15-2022 End: 05-15-2022 Subsequent hospital visit by physician [facility] (I-Stat/1.5t) Work Phone: Radiology Comment on [...] End: 05-15-2019 Patient encounter procedure Kemi Todd TANKER DRIVER-SOLAR SALES ASSOCIATE Work Phone: [facility] Work Phone: Start: 09-09-2018 [facility] Facility :[facility] Start: 01-09-2018 End: 01-09-2018 [facility] Facility:[facility] Start: 09-21-2017 End: 09-21-2017 [facility] Facility:[facility] Procedures Date Procedure Procedure Detail Performing Clinician [...] 06-20-2024 Hemoglobin A1c/Hemoglobin.total in Blood Ana Mckoy TANKER DRIVER.SOLAR SALES ASSOCIATE Work Phone: Start: 06-20-2024 [place] COVID-19 VACCINE (2022- SEASON) AGE 12+ YR Ana Mckoy TANKER DRIVER.SOLAR SALES ASSOCIATE Work Phone: Start: 06-20-2024 Adult depression screening assessment Ana Mckoy TANKER DRIVER.SOLAR SALES ASSOCIATE Work Phone: Start: 02-19-2024 Mri spinal canal [...] BIVALENT VACCINE, AGE 12+ YR Ana Older TANKER DRIVER.SOLAR SALES ASSOCIATE Work Phone: Start: 06-24-2023 Plain chest X-ray [...] parameters - no follow-up required Kemi Todd APRN-SOLAR SALES ASSOCIATE Work Phone: Start: 05-15-2019 End: 05-15-2019 BMI outside of normal parameters - no follow-up plan/reason not given Kemi Todd APRN-[facility] Work Phone: Start: 05-15-2019 End: 05-15-2019 Documentation of current medications Kemi Todd APRN-SOLAR SALES ASSOCIATE Work Phone: Start: 05-15-2019 End: 05-15-2019 Pain assessment documented as positive - follow-up documented Kemi Todd APRN-SOLAR SALES ASSOCIATE Work Phone: Start: 05-15-2019 End: 05-15-2019 Tobacco non-user Kemi Todd APRN-SOLAR SALES ASSOCIATE Work Phone: History of placement of stent for coronary artery disease S/P coronary artery stent placement, multiple stent placements, 2008, 2011, 2012. Pacc 3 Work Phone: NEGATED: Highlighted rowStart: 05-15-2019 End: 05-15-2019 Documentation of current medications Mary Oro LPN Plan of Treatment Date Care Activity Detail Author Start: 08-06-2026 End: 08-06-2026 Patient encounter procedure 08/06/2026 9:00 AM EDT Office Visit Neurology [address] [place] [address] [id number] Rashaun Manning Jr., MD [address] [place], [place] [id number] 1 year follow up Neurology Comment on above: 1 year follow up Start: 06-23-2026 Anxiety Screening Anxiety Screening [facility] Start: 06-23-2026 Depression Screening Depression Screening [facility] Start: 06-23-2026 Hepatitis B screening Urine Albumin:Creatinine Ratio [facility] Start: 06-16-2026 Diabetic foot examination Diabetic Foot Exam [facility] Start: 05-11-2026 Glaucoma screening Dilated Retinal Exam [facility] Start: 04-01-2026 Creatinine measurement Creatinine Level [facility] Start: 04-01-2026 Potassium measurement Potassium Level [facility] Start: 03-26-2026 Hepatitis B surface antibody level LDL Cholesterol [facility] Start: 12-24-2025 Hemoglobin A1c measurement HbA1C [facility] Start: 12-24-2025 End: 12-24-2025 Patient encounter procedure 12/24/2025 9:40 AM EST Office Visit Internal Medicine [place] [address] [place] [address] Galindo Yuan MD [address] [place] [address] 6 month follow up Internal Medicine [place] Comment on above: 6 month follow up Start: 12-05-2025 Covid-19 Vaccine () Covid-19 Vaccine () [facility] Comment on above: Postponed from 08/15/2024 (Declined at t his time) Start: 11-02-2025 End: 11-02-2025 Patient encounter procedure 11/02/2025 1:20 PM EST Office Visit Cardiology [address] [place] [address] Anurag Bah MD [address] [facility] [address] [place] [address] 6-month follow up Cardiology Comment on above: 6-month follow up Start: 09-21-2025 End: 09-21-2025 Patient encounter procedure 09/21/2025 9:15 AM EST Office Visit Podiatry [address] [place] [address] Juan Torres [address] [place] [address] 2nd att to r/s -BETSY 07/30 Podiatry Comment on above: 2nd att to r/s -BETSY 07/30 Start: 09-17-2025 End: 09-17-2025 Patient encounter procedure 09/17/2025 8:15 AM EDT Office Visit Podiatry [address] [place] [address] Juan Torres [address] [place] [address] 3 month follow up nail care Podiatry Comment on above: 3 month follow up nail care Start: 09-09-2025 End: 09-09-2025 Patient encounter procedure 09/09/2025 1:40 PM EDT Office Visit Dermatology [facility] [address] [place] [address] Ruth Perla, DO [address] [place], [place] [phone] FBSE Dermatology [facility] Comment on above: FBSE Start: 08-26-2025 End: 08-26-2025 Patient encounter procedure Dermatology [place] Comment on above: FBSE 07/23 [facility] Start: 08-19-2025 End: 08-19-2025 Patient encounter procedure 08/19/2025 11:30 AM EDT Office Visit [place] [address] [place] [phone] Ruth Perla, DO [address] [place], [place] [phone] FBSE Dermatology [facility] [place] Comment on above: FBSE Start: 08-03-2025 End: 08-03-2025 Patient encounter procedure Neurology Comment on above: 1 year follow up Start: 07-20-2025 Influenza vaccination Influ[facility] Vaccine (#[facility]) [facility] Start: 07-07-2025 DTaP/Tdap/Td Vaccines (3 - Tdap) DTaP/Tdap/Td Vaccines (3 - Tdap) [facility] Start: 07-07-2025 Urine microalbumin profile [facility] Start: 07-03-2025 End: 07-03-2025 ambulatory 07/03/2025 8:15 AM EDT OT/PT/Speech Visit [place] [facility] Physical Therapy [address] [place] [address] Ulisses Fox, PT R29.898 (ICD-10-CM) - Weakness of both legs [facility] Comment on above: R29.898 (ICD-10-CM) - Weakness of both l egs Start: 06-25-2025 End: 06-25-2025 Patient encounter procedure 06/25/2025 9:30 AM EDT Appointment Radiology [address] [place] [address] XR CHEST 2V FRONTAL/LAT Radiology Comment on above: XR CHEST 2V FRONTAL/LAT Start: 06-23-2025 End: 09-22-2025 Microalbumin/Creatinine [Mass Ratio] in Urine [facility] Work Phone: Comment on above: Expected: 06/23/2025, Expires: Start: 06-23-2025 End: 06-23-2025 ambulatory 06/23/2025 9:30 AM EDT OT/PT/Speech Visit [facility] [address] [place] [address] Sheryl Mancia, SENIOR RESEARCH CONSULTANT [address] [place] [address] R29.898 (ICD-10-CM) - Weakness of both legs [facility] Comment on above: R29.898 (ICD-10-CM) - Weakness of both l egs Start: 06-23-2025 End: 06-23-2025 Patient encounter procedure 06/23/2025 8:00 AM EDT Office Visit Internal Medicine [place] [address] [facility] [place] [address] Galindo Yuan MD [address] [place] [address] Annual Medicare Wellness w/6 month follow-up Internal Medicine [place] Comment on above: Annual Medicare Wellness w/6 month follo w-up Start: 06-20-2025 Anxiety Screening Anxiety Screening [facility] Start: 06-20-2025 Depression Screening Depression Screening [facility] Start: 06-20-2025 Hemoglobin A1c measurement Diabetes: Hemoglobin A1C [facility] Start: 06-19-2025 End: 06-19-2025 ambulatory 06/19/2025 8:15 AM EDT OT/PT/Speech Visit [facility] [address] [place] [address] Ulisses Fox, PT R29.898 (ICD-10-CM) - Weakness of both legs [facility] Comment on above: R29.898 (ICD-10-CM) - Weakness of both l egs Start: 06-16-2025 End: 06-16-2025 Patient encounter procedure 06/16/2025 8:15 AM EDT Office Visit Podiatry [address] [place] [address] Juan Torres [address] [place] [address] 3 month follow up nail care Podiatry Comment on above: 3 month follow up nail care Start: 06-08-2025 End: 06-08-2025 ambulatory 06/08/2025 9:00 AM EDT OT/PT/Speech Visit [facility] [address] [place] [address] Ulisses Fox, PT Weakness of both legs [R29.898] [facility] Comment on above: Weakness of both legs [R29.898] Start: 06-03-2025 Diabetic foot examination Diabetic Foot Exam [facility] Start: 03-23-2025 End: 03-15-2026 Comprehensive metabolic 2000 panel - Serum or Plasma COMPREHENSIVE METABOLIC PANEL Lab Routine Coronary artery disease of [place] artery of [place] heart with stable angina pectoris Expected: 03/23/2025, Expires: 03/15/2026 [facility] Work Phone: Comment on above: Expected: 03/23/2025, Expires: Start: 03-23-2025 End: 03-15-2026 Lipid 1996 panel - Serum or Plasma LIPID PANEL, FASTING Lab Routine Coronary artery disease of [place] artery of [place] heart with stable angina pectoris Hypercholesteremia Expected: 03/23/2025, Expires: 03/15/2026 [facility] Comment on above: Expected: 03/23/2025, Expires: Start: 03-23-2025 End: 03-23-2025 Patient encounter procedure Cardiology Comment on above: 9-month follow up Start: 03-19-2025 Glaucoma screening Dilated Retinal Exam [facility] Start: 03-12-2025 End: 03-12-2025 Patient encounter procedure Podiatry Comment on above: 3 month follow up nail care Start: 02-18-2025 End: 02-18-2025 Patient encounter procedure 02/18/2025 9:40 AM EDT Office Visit Dermatology [facility] [address] [place] [address] Ruth Perla DO [address] [place] [address] FBSE Dermatology [facility] Comment on above: FBSE Start: 01-23-2025 End: 01-23-2025 Patient encounter procedure 01/23/2025 8:00 AM EST Appointment Radiology [address] [place] [address] 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 6, G89.29] Start: 01-21-2025 End: 07-24-2025 ECG COMPLETE ECG COMPLETE ECG Routine Encounter for monitoring dofetilide therapy Paroxysmal atrial fibrillation (HCC) Expected: 01/21/2025 (Approximate), Expires: 07/24/2025 [facility] Comment on above: Expected: 01/21/2025 (Approximate), Expi res: 07/24/2025 Start: 01-21-2025 End: 01-21-2025 Patient encounter procedure 01/21/2025 10:30 AM EST Office Visit Pain Management [address] [facility] [address] [place] [address] Renan Bowling MD [address] [facility] [id number] [place] [address] SCS Assessment/Removal (Nevro Rep) Pain Management Comment on above: SCS Assessment/Removal (Nevro Rep) Start: 01-14-2025 End: 01-14-2025 Admission to same day surgery center 01/14/2025 7:30 AM EST - 01/14/2025 8:49 AM EST Surgery [facility] [address] [place] [address] Renan Bowling MD [address] [facility] [place] [address] PERCUTANEOUS IMPLANT LEAD NEUROSTIM EPIDURAL TRIAL [facility] Comment on above: PERCUTANEOUS IMPLANT LEAD NEUROSTIM EPID URAL TRIAL Start: 01-14-2025 End: 01-14-2025 Prq impltj nstim electrode array epidural PERCUTANEOUS IMPLANT LEAD NEUROSTIM EPIDURAL TRIAL 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 Lumbar radiculopathy Lumbar spondylosis 01/14/2025 7:30 AM EST ME OR Start: 01-14-2025 Subsequent hospital visit by physician 01/14/2025 7:30 AM EST Hospital Encounter [facility] [address] [place] [address] Renan Bowling MD [address] [facility] [place] [address] 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], 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], Lumbar radiculopathy [M54.16], Lumbar spondylosis [M47.816] [facility] Comment on above: 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], 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], Lumbar radiculopathy [M54.16], Lumbar spondylosis [M47.816] Start: 01-01-2025 Diabetes mellitus screening Diabetes Screening [facility] Start: 01-01-2025 Hepatitis B screening Urine Albumin:Creatinine Ratio [facility] Start: 01-01-2025 Hepatitis B surface antibody level LDL Cholesterol [facility] Start: 01-01-2025 Urine screening for protein CKD: Urine Protein Screening [facility] Start: 12-24-2024 End: 12-24-2024 Anesthesia consultation 12/24/2024 9:00 AM EST PAT Pre Anesthesia [address] [facility] [address] [place] [address] DOS 01/14 Pre Anesthesia Comment on above: DOS 01/14 Start: 12-23-2024 End: 12-23-2024 Patient encounter procedure 12/23/2024 8:40 AM EST Office Visit Internal Medicine [place] [address] [place] [address] Galindo Yuan MD [address] [place] [address] 6 month follow up Internal Medicine [place] Comment on above: 6 month follow up Start: 12-21-2024 Hemoglobin A1c measurement HbA1C [facility] Start: 12-11-2024 End: 12-11-2024 Patient encounter procedure Podiatry Comment on above: 3 month follow up nail care Start: 12-05-2024 End: 12-05-2024 Patient encounter procedure 12/05/2024 11:40 AM EST Office Visit Internal Medicine [place] [address] [facility] [place] [address] Galindo Yuan MD [address] [facility] [place] [address] testicle pain x1 week Internal Medicine [place] Comment on above: testicle pain x1 week Start: 12-03-2024 End: 12-03-2024 Patient encounter procedure 12/03/2024 1:00 PM EST Office Visit Pain Management [address] [place] [address] Silvia Villanueva, PhD [address] [facility] [address] [place], [place] [phone] NPPS - Dr Bowling Referred Pain Management Comment on above: NPPS - Dr Bowling Referred Start: 11-19-2024 Advance Directive Discussion Advance Directive Discussion [facility] Start: 11-19-2024 Medicare Advantage Annual Wellness Visit Medicare Advantage Annual Wellness Visit [facility] Start: 10-02-2024 End: 10-02-2024 Patient encounter procedure 10/02/2024 9:30 AM EST Appointment Radiology [address] [place] [address] 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] Radiology Comment on above: Failed back syndrome of lumbar spine [M9 6.1] Start: 10-01-2024 End: 10-01-2024 Patient encounter procedure 10/01/2024 9:30 AM EST Office Visit Pain Management [address] [facility] [address] [place], [place] [phone] Renan Bowling MD [address] [facility] [id number] [place], [place] [id number] SCS Evaluation Pain Management Comment on above: SCS Evaluation Start: 09-22-2024 End: 09-22-2024 Patient encounter procedure 09/22/2024 1:30 PM EST Office Visit Dermatology [address] [place] [address] Maryellen Mitchell MD [address] [place], [place] [phone] Exc, left glabella, shave biopsy: Dermatology Comment on above: Exc, left glabella, shave biopsy: Start: 09-09-2024 End: 09-09-2024 Patient encounter procedure 09/09/2024 8:30 AM EDT Office Visit Podiatry [address] [place] [address] Juan Torres [address] [place] [address] 3MTH FOLLOW UP Podiatry Comment on above: 3MTH FOLLOW UP Start: 09-05-2024 End: 09-05-2024 Patient encounter procedure 09/05/2024 8:15 AM EDT Office Visit Podiatry [address] [place] [address] Juan Torres [address] [facility] [place], [place] [address] 3MTH FOLLOW UP Podiatry Comment on above: 3MTH FOLLOW UP Start: 08-20-2024 End: 08-20-2024 Patient encounter procedure 08/20/2024 1:20 PM EDT Office Visit Dermatology [place] [address] [place] [address] Jesús RuthDO [address] [place] [address] 6 month FBSE Dermatology [place] Comment on above: 6 month FBSE Start: 08-15-2024 COVID-19 Vaccine ( season) COVID-19 Vaccine () [facility] Start: 08-15-2024 Covid-19 Vaccine ( season) Covid-19 Vaccine () [facility] Start: 08-06-2024 End: 08-06-2024 Patient encounter procedure 08/06/2024 3:20 PM EDT Appointment Cat Scan [address] [place] [address] Radiculopathy of lumbar region [M54.16] Cat Scan Comment on above: Radiculopathy of lumbar region [M54.16] Start: 08-04-2024 End: 08-04-2024 Patient encounter procedure [facility] [place] Comment on above: Lumbar radiculopathy [M54.16] Start: 2024 End: 2024 Patient encounter procedure Neurology Comment on above: ETHAN 6 mth follow up ETHAN 6 mth follow up, on [facility] Start: 07-24-2024 End: 07-24-2024 Patient encounter procedure 07/24/2024 11:00 AM EDT Office Visit Cardiology [address] [place] [address] Diane Bruce PA-C [address] [place] [address] cardiology follow up afib Cardiology Comment on above: cardiology follow up afib Start: 07-20-2024 Influenza vaccination [facility] Start: 07-10-2024 Medicare Annual Wellness Visit Medicare Annual Wellness Visit (AWV) [facility] Start: 07-01-2024 Hemoglobin A1c measurement HbA1C [facility] Start: 06-20-2024 End: 06-20-2024 Patient encounter procedure 06/20/2024 7:00 AM EDT Office Visit Internal Medicine [place] [address] [place] [address] Ana Mckoy, TANKER DRIVER.SOLAR SALES ASSOCIATE [address] [place] [address] 6 month follow up/medicare wellness Internal Medicine [place] Comment on above: 6 month follow up/medicare wellness Start: 06-17-2024 End: 06-17-2024 Patient encounter procedure 06/17/2024 9:30 AM EDT Office Visit Pain Management [address] [address] Krystin Hernandez, TANKER DRIVER.SOLAR SALES ASSOCIATE [address] [place] [address] consult for inj Pain Management Comment on above: consult for inj Start: 06-16-2024 End: 06-16-2024 Patient encounter procedure 06/16/2024 11:40 AM EDT Office Visit Cardiology [address] [place] [phone] Anurag Bah MD [address] [facility] [address] [place] [address] 6 month follow up Cardiology Comment on above: 6 month follow up Start: 05-11-2024 3 comp foot exam completed DIABETIC FOOT EXAM [facility] Start: 05-11-2024 Diabetic foot examination Diabetic Foot Exam [facility] Start: 04-19-2024 Covid-19 Vaccine ( season) Covid-19 Vaccine () [facility] Start: 03-26-2024 End: 03-26-2024 Patient encounter procedure 03/26/2024 2:00 PM EDT Office Visit Dermatology [address] [place] [address] Sakshi Gibson MD [address] [place] [address] Mohs: BCC left yazdanism, 1 pt Dermatology Comment on above: Mohs: BCC left yazdanism, 1 pt Start: 03-18-2024 End: 03-18-2024 Admission to same day surgery center 03/18/2024 8:30 AM EDT - 03/18/2024 8:56 AM EDT Surgery [facility] [address] [place] [address] Renan Bowling MD [address] [facility] [place] [address] INJECTION(S) ANESTHETIC AGENT AND STEROID TRANSFORAMINAL EPIDURAL W/ IMAGING GUIDANCE LUMBAR [facility] Comment on above: INJECTION(S) ANESTHETIC AGENT [...] physician 03/18/2024 8:30 AM EDT Hospital Encounter [facility] [address] [place] [address] Renan Bowling MD [address] [facility] [place] [address] Low back pain with sciatica, sciatica laterality unspecified, unspecified back pain laterality, unspecified chronicity [M54.40] [facility] Comment on above: Low back pain with sciatica, sciatica la terality unspecified, unspecified back pain laterality, unspecified chronicity [M54.40] Start: 02-22-2024 Glaucoma screening Dilated Retinal Exam [facility] Start: 02-22-2024 Hepatitis C antibody, confirmatory test DILATED RETINAL EXAM [facility] Start: 12-21-2023 Hemoglobin A1c measurement HbA1C [facility] Start: 12-21-2023 Hemoglobin A1c/Hemoglobin.total in Blood HBA1C [facility] Start: 12-07-2023 Hepatitis B screening URINE ALBUMIN:CREATININE RATIO [facility] Start: 12-07-2023 Hepatitis B surface antibody level LDL CHOLESTEROL [facility] Start: 11-19-2023 Advance Directive Discussion Advance Directive Discussion [facility] Start: 11-19-2023 Behavioral Health Screening Behavioral Health Screening [facility] Start: 10-12-2023 [facility] Start: 10-12-2023 [facility] Start: 10-12-2023 End: 10-12-2023 Blood culture [facility] Start: 10-12-2023 Bacteria identified in Blood by Culture Blood Culture [facility] Start: 10-12-2023 Bacteria identified in Urine by Culture [facility] Start: 09-03-2023 Covid-19 Vaccine ( season) Covid-19 Vaccine () [facility] Start: 07-20-2023 Influenza vaccination [facility] Start: 07-19-2023 End: 09-18-2023 Basic metabolic 2000 panel - Serum or Plasma BASIC METABOLIC PNL Lab Routine Encounter for monitoring dofetilide therapy Expected: 07/19/2023, Expires: 09/18/2023 [facility] Work Phone: Comment on above: Expected: 07/19/2023, Expires: Start: 07-19-2023 End: 09-18-2023 Magnesium [Mass/volume] in Serum or Plasma MAGNESIUM BLD Lab Routine Paroxysmal atrial fibrillation (HCC) Encounter for monitoring dofetilide therapy Expected: 07/19/2023, Expires: 09/18/2023 [facility] Work Phone: Comment on above: Expected: 07/19/2023, Expires: Start: 06-28-2023 End: 08-28-2023 Urinalysis complete panel - Urine URINALYSIS, WITH MICROSCOPIC Lab Routine Right lower quadrant pain Expected: 06/28/2023, Expires: 08/28/2023 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 Work Phone: Comment on above: Expected: 06/19/2023, Expires: 3 Start: 06-06-2023 Hemoglobin A1c/Hemoglobin.total in Blood HBA1C [facility] Start: 05-02-2023 3 comp foot exam completed DIABETIC FOOT EXAM [facility] Start: 04-19-2023 COVID-19 VACCINE (6 - Pfizer series) COVID-19 VACCINE (6 - Pfizer series) [facility] Start: 02-17-2023 Hepatitis C antibody, confirmatory test DILATED RETINAL EXAM [facility] Start: 12-21-2022 End: 02-20-2023 CBC panel - Blood by Automated count CBC Lab Routine 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 Work Phone: Comment on above: Expected: 12/21/2022, Expires: 3 Start: 12-20-2022 Hemoglobin A1c/Hemoglobin.total in Blood HBA1C [facility] Start: 11-19-2022 ADVANCE DIRECTIVE DISCUSSION ADVANCE DIRECTIVE DISCUSSION [facility] Start: 11-19-2022 DEPRESSION ASSESSMENT DEPRESSION ASSESSMENT [facility] Start: 11-17-2022 Hepatitis B screening URINE ALBUMIN:CREATININE RATIO [facility] Start: 11-17-2022 Hepatitis B surface antibody level LDL CHOLESTEROL [facility] Start: 08-14-2022 COVID-19 VACCINE (5 - Booster for Pfizer series) COVID-19 VACCINE (5 - Booster for Pfizer series) [facility] Start: 07-20-2022 Influenza vaccination INFLUENZA (#1) [facility] Start: 06-06-2022 End: 08-06-2022 Hemoglobin A1c in Blood HGB A1C Lab Routine 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 Work Phone: Comment on above: Expected: 06/06/2022, Expires: 2 Start: 06-06-2022 End: 08-06-2022 SCHEDULE LAB TESTING SCHEDULE LAB TESTING Lab Routine Expected: 06/06/2022, Expires: 08/06/2022 [facility] Work Phone: Comment on above: Expected: 06/06/2022, Expires: 2 Start: 05-18-2022 Hemoglobin A1c/Hemoglobin.total in Blood HBA1C [facility] Start: 03-22-2022 COVID-19 VACCINE (4 - Booster for Pfizer series) COVID-19 VACCINE (4 - Booster for Pfizer series) [facility] Start: 02-14-2022 3 comp foot exam completed DIABETIC FOOT EXAM [facility] Start: 11-19-2021 ADVANCE DIRECTIVE DISCUSSION ADVANCE DIRECTIVE DISCUSSION [facility] Start: 11-19-2021 DEPRESSION ASSESSMENT DEPRESSION ASSESSMENT [facility] Start: 05-29-2019 End: 05-29-2019 Appointment Appointment [facility] Work Phone: Start: 05-15-2019 End: 05-15-2019 Appointment Appointment [facility] Work Phone: Start: 05-15-2019 End: 05-15-2019 Radex spine lumbosacral 2/3 views XR LUMBAR 2-3 VWS AP/LAT [facility] Work Phone: Start: 2000 RSV Vaccine (1 - 1-dose 60+ series) RSV Vaccine (1 - 1-dose 60+ series) [facility] Start: 1958 Anxiety Screening Anxiety Screening [facility] Start: 1958 Depression Screening Depression Screening [facility] Start: 1940 Echocardiography Echocardiogram [facility] Start: 1940 Lipid panel Lipid Panel [facility] Start: 1940 Medicare Annual Wellness Visit Medicare Annual Wellness Visit (AWV) [facility] ALERE STREP A TEST (AG) ALERE ST REP A TEST (AG) Lab Routine Sore throat Ordered: 10/12/2023 [facility] Work Phone: Comment on above: Ordered: 10/12/2023 End: 06-20-2023 Basic metabolic 2000 panel - Serum or Plasma BASIC METABOLIC PNL Lab Routine Paroxysmal atrial fibrillation (HCC) Visit for monitoring Tikosyn therapy Every 3 months for 4 Occurrences starting 06/20/2022 until 06/20/2023 [facility] Work Phone: Comment on above: Every 3 months for 4 Occurrences startin g 06/20/2022 until 06/20/2023 End: 07-24-2025 Basic metabolic 2000 panel - Serum or Plasma BASIC METABOLIC PANEL Lab Routine Encounter for monitoring dofetilide therapy Paroxysmal atrial fibrillation (HCC) Every 6 months for 2 Occurrences starting 07/24/2024 until 07/24/2025 [facility] Work Phone: Comment on above: Every 6 months for 2 Occurrences startin g 07/24/2024 until 07/24/2025 End: 09-03-2025 CT Lumbar spine WO contrast CT LUMBAR SPINE WO IVCON Radiology Routine Radiculopathy of lumbar region 1 Occurrences starting 08/04/2024 until 09/03/2025 [facility] Work Phone: Comment on above: 1 Occurrences starting 08/04/2024 until 09/03/2025 End: 06-20-2023 ECG COMPLETE ECG COMPLETE ECG Routine Coronary artery disease involving [place] coronary artery of [place] heart without angina pectoris 1 Occurrences starting 06/20/2022 until 06/20/2023 [facility] Work Phone: Comment on above: 1 Occurrences starting 06/20/2022 until 06/20/2023 ECG COMPLETE ECG COMPLETE ECG 06/20/2022 11:[address] [facility] End: 07-19-[address] [facility] Work Phone: Comment on above: 1 Occurrences starting 07/19/2023 until 07/19/2024 Every 3 months for 4 Occurrences starting 07/19/2023 until 07/19/2024 ECG COMPLETE ECG COMPLETE ECG 02/04/2024 9:[address] [facility] ECG COMPLETE ECG COMPLETE ECG Routine Encounter for monitoring dofetilide therapy Paroxysmal atrial fibrillation (HCC) Ordered: 07/24/2024 [facility] Comment on above: Ordered: 07/24/2024 End: 07-19-2024 Echocardiography ECHO Cardiology Routine Paroxysmal atrial fibrillation (HCC) 1 Occurrences starting 07/19/2023 until 07/19/2024 [facility] Work Phone: Comment on above: 1 Occurrences starting 07/19/2023 until 07/19/2024 End: 06-20-2023 Magnesium [Mass/volume] in Serum or Plasma MAGNESIUM BLD Lab Routine Paroxysmal atrial fibrillation (HCC) Visit for monitoring Tikosyn therapy Every 3 months for 4 Occurrences starting 06/20/2022 until 06/20/2023 [facility] Work Phone: Comment on above: Every 3 months for 4 Occurrences startin g 06/20/2022 until 06/20/2023 End: 07-24-2025 Magnesium [Mass/volume] in Serum or Plasma MAGNESIUM Lab Routine Encounter for monitoring dofetilide therapy Paroxysmal atrial fibrillation (HCC) Every 6 months for 2 Occurrences starting 07/24/2024 until 07/24/2025 [facility] Comment on above: Every 6 months for 2 Occurrences startin g 07/24/2024 until 07/24/2025 End: 03-14-2025 MR Lumbar spine WO contrast MRI LUMBAR SPINE WO IVCON Radiology Routine Low back pain with sciatica, sciatica laterality unspecified, unspecified back pain laterality, unspecified chronicity 1 Occurrences starting 02/13/2024 until 03/14/2025 [facility] Work Phone: Comment on above: 1 Occurrences starting 02/13/2024 until 03/14/2025 End: 02-20-2026 MR Thoracic spine WO contrast MRI THORACIC SPINE WO IVCON Radiology Routine Chronic midline thoracic back pain 1 Occurrences starting 01/21/2025 until 02/20/2026 [facility] Work Phone: Comment on above: 1 Occurrences starting 01/21/2025 until 02/20/2026 End: 10-05-2023 Mra head w/o contrst material MRA BRAIN WO IVCON Radiology Routine Vertebrobasilar artery syndrome 1 Occurrences starting 09/05/2022 until 10/05/2023 [facility] Work Phone: Comment on above: 1 Occurrences starting 09/05/2022 until 10/05/2023 End: 10-05-2023 Mra neck w/o contrst material MRA CAROTID WO IVCON Radiology Routine Vertebrobasilar artery syndrome 1 Occurrences starting 09/05/2022 until 10/05/2023 [facility] Work Phone: Comment on above: 1 Occurrences starting 09/05/2022 until 10/05/2023 End: 10-05-2023 Mri brain brain stem w/o contrast material MRI BRAIN WO IVCON Radiology Routine Vertebrobasilar artery syndrome 1 Occurrences starting 09/05/2022 until 10/05/2023 [facility] Work Phone: Comment on above: 1 Occurrences starting 09/05/2022 until 10/05/2023 End: 05-31-2023 Mri spinal canal cervical w/o contrast matrl MRI CERVICAL SPINE WO IVCON Radiology Routine Spinal stenosis of cervical region 1 Occurrences starting 05/01/2022 until 05/31/2023 [facility] Work Phone: Comment on above: 1 Occurrences starting 05/01/2022 until 05/31/2023 Njx anes&/strd w/img tfrml edrl lmbr/sac 1 lvl INJ TRANSFORAMINAL EPID ANES/STER LS SINGL Procedures Routine Low back pain with sciatica, sciatica laterality unspecified, unspecified back pain laterality, unspecified chronicity Lumbar radiculopathy Ordered: 02/21/2024 [facility] Work Phone: Comment on above: Ordered: 02/21/2024 Njx dx/ther agt pvrt facet jt crv/thrc 1 level NJX DX/THER AGT PVRT FACET JT CRV/THRC 1 LEVEL Procedures Routine Cervicalgia Cervical spondylosis 1 Occurrences starting 09/25/2022 [facility] Work Phone: Comment on above: 1 Occurrences starting 09/25/2022 Patient Education [facility] Work Phone: Patient referral [facility] Work Phone: Prq impltj nstim electrode array epidural SPINAL CORD STIM PERCT SCS ELCT Procedures Routine Failed back syndrome of lumbar spine 1 Occurrences starting 10/01/2024 [facility] Work Phone: Comment on above: 1 Occurrences starting 10/01/2024 SARS-CoV-2 (COVID-19 ) RNA [Presence] in Respiratory specimen by VAN with probe detection COVID NAAT, UPPER RESPIRATORY, ROUTINE Microbiology Routine URI, acute Ordered: 10/12/2023 [facility] Work Phone: Comment on above: Ordered: 10/12/2023 SURGICAL PATHOLOGY SURGICAL PATH OLOGY Lab Routine Neoplasm of skin 03/14/2023 3:[address] [facility] Work Phone: SURGICAL PATHOLOGY SURGICAL PATH OLOGY Lab Routine Neoplasm of uncertain behavior of skin Ordered: 08/20/2024 [facility] Work Phone: Comment on above: Ordered: 08/20/2024 Tissue Pathology bio psy report SURGICAL PATHOLOGY Lab Routine Neoplasm of skin Ordered: 02/18/2025 [facility] Work Phone: Comment on above: Ordered: 02/18/2025 Urinalysis complete panel - Urine URINALYSIS, WITH MICROSCOPIC Lab Routine Gross hematuria 10/12/2023 4:[address] [facility] Work Phone: End: 01-19-2024 Us abdominal aorta real time screen study aaa US SCREENING FOR AAA Radiology Routine Screening for AAA (abdominal aortic aneurysm) 1 Occurrences starting 12/20/2022 until 01/19/2024 [facility] Work Phone: Comment on above: 1 Occurrences starting 12/20/2022 until 01/19/2024 End: 07-23-2026 XR Chest PA and Lateral XR CHEST 2V FRONTAL/LAT Radiology Routine Wheezing 1 Occurrences starting 06/23/2025 until 07/23/2026 [facility] Comment on above: 1 Occurrences starting 06/23/2025 until 07/23/2026 End: 10-31-2025 XR Thoracic spine AP and Lateral XR THORACIC LIMITED 2V AP/LAT Radiology Routine 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 1 Occurrences starting 10/01/2024 until 10/31/2025 [facility] Comment on above: 1 Occurrences starting 10/01/2024 until 10/31/2025 XR Thoracic spine AP and Lateral XR THORACIC LIMITED 2V AP/LAT Radiology Routine 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 10/02/2024 9:[address] [facility] Work Phone: [facility] Immunizations Immunization Date Immunization Notes Care Provider Fa cili 11-05-2024 influenza, high dose seasonal, preservative-free Pr Nurse Work Phone: [facility] 11-05-2024 influenza virus vaccine, unspecified formulation Galindo Yuan MD Work Phone: [facility] 07-03-2024 respiratory syncytia l virus (RSV) vaccine, adjuvanted (AREXVY) Diane Bruce PA-C Work Phone: [facility] 06-20-2024 COVID-19 vaccine, ag e 12+ yr, season (PFIZER-BIONTECH) Ana Mckoy TANKER DRIVER.SOLAR SALES ASSOCIATE Work Phone: [facility] 12-20-2023 COVID-19 vaccine, ag e 12+ yr, season (PFIZER-BIONTECH) Juan Torres Work Phone: [facility] 09-05-2023 influenza (HD-IIV4) vaccine, age 65+ yr, high dose, quadrivalent, PF (FLUZONE HIGH-DOSE) Juantreva Degroot Work Phone: [facility] Work Phone: 09-05-2023 influenza virus vaccine, unspecified formulation Juan Torres Work Phone: [facility] 07-09-2023 COVID-19 vaccine, ag e 12+ yr, bivalent (PFIZER-BIONTECH) Ana Edwards TANKER DRIVER.SOLAR SALES ASSOCIATE Work Phone: [facility] 12-20-2022 COVID-19 booster vaccine, age 12+ yr, bivalent (PFIZER-BIONTECH) Galindo Yuan MD Work Phone: [facility] Work Phone: 08-30-2022 influenza, high-dose , quadrivalent vaccine (FLUZONE HIGH DOSE QUADRIVALENT) Pr Nurse Work Phone: [facility] Work Phone: 08-30-2022 influenza virus vaccine, unspecified formulation Galindo Yuan MD Work Phone: [facility] 06-19-2022 COVID-19 vaccine, ag e 12+ yr (PFIZER-BIONTECH - RAMIREZ TOP) Galindo Yuan MD Work Phone: [facility] Work Phone: 11-22-2021 COVID-19 vaccine, ag e 12+ yr (PFIZER-BIONTECH - PURPLE TOP) Rashaun Manning Jr., MD Work Phone: [facility] Work Phone: 10-17-2021 influenza, high dose seasonal, preservative-free Rashaun Manning Jr., MD Work Phone: [facility] Work Phone: 10-17-2021 influenza, high-dose , quadrivalent vaccine (FLUZONE HIGH DOSE QUADRIVALENT) Rashaun Manning Jr., MD Work Phone: [facility] 09-05-2021 influenza, injectabl e, quadrivalent, preservative free [facility] 09-05-2021 influenza, seasonal, injectable Rashaun Manning Jr., MD Work Phone: [facility] 02-02-2021 COVID-19 vaccine, ag e 12+ yr (PFIZER-BIONTECH - PURPLE TOP) Rashaun Manning Jr., MD Work Phone: [facility] Work Phone: 01-12-2021 COVID-19 vaccine, ag e 12+ yr (PFIZER-BIONTECH - PURPLE TOP) Rashaun Manning Jr., MD Work Phone: [facility] Work Phone: 08-18-2020 influenza (HD-IIV4) vaccine, age 65+ yr, high dose, quadrivalent, PF (FLUZONE HIGH-DOSE) Galindo Yuan MD Work Phone: [facility] 08-18-2020 influenza, high dose seasonal, preservative-free Rashaun Manning Jr., MD Work Phone: [facility] Work Phone: 04-06-2020 zoster vaccine recombinant Rashaun Manning Jr., MD Work Phone: [facility] Work Phone: 12-26-2019 zoster vaccine recombinant Rashaun Manning Jr., MD Work Phone: [facility] Work Phone: 09-08-2019 influenza, high dose seasonal, preservative-free Rashaun Manning Jr., MD Work Phone: [facility] Work Phone: 09-09-2018 influenza, high dose seasonal, preservative-free Rashaun Manning Jr., MD Work Phone: [facility] 09-15-2017 influenza, high dose seasonal, preservative-free Rashaun Manning Jr., MD Work Phone: [facility] 08-22-2016 influenza, injectabl e, quadrivalent, preservative free [facility] 08-22-2016 influenza, seasonal, injectable [facility] 08-21-2016 influenza, high dose seasonal, preservative-free Rashaun Manning Jr., MD Work Phone: [facility] 10-21-2015 pneumococcal conjuga te vaccine, 13 valent Rashaun Manning Jr., MD Work Phone: [facility] 08-11-2015 influenza, high dose seasonal, preservative-free Rashaun Manning Jr., MD Work Phone: [facility] 07-07-2015 tetanus and diphther ia toxoids, adsorbed, preservative free, for adult use (5 Lf of tetanus toxoid and 2 Lf of diphtheria toxoid) Rashaun Manning Jr., MD Work Phone: [facility] 11-02-2014 influenza, seasonal, injectable Rashaun Manning Jr., MD Work Phone: [facility] 10-14-2013 influenza virus vaccine, unspecified formulation Rashaun Manning Jr., MD Work Phone: [facility] 08-25-2012 influenza virus vaccine, unspecified formulation Rashaun Manning Jr., MD Work Phone: [facility] 08-28-2009 influenza virus vaccine, unspecified formulation Rashaun Manning Jr., MD Work Phone: [facility] 09-23-2008 influenza virus vaccine, unspecified formulation Rashaun Manning Jr., MD Work Phone: [facility] 09-24-2007 influenza virus vaccine, unspecified formulation Rashaun Manning Jr., MD Work Phone: [facility] 09-28-2006 influenza virus vaccine, unspecified formulation Rashaun Manning Jr., MD Work Phone: [facility] 09-26-2005 influenza virus vaccine, unspecified formulation Rashaun Manning Jr., MD Work Phone: [facility] Work Phone: 09-26-2005 pneumococcal polysaccharide vaccine, 23 valent Rashaun Manning Jr., MD Work Phone: [facility] Work Phone: 12-24-2003 diphtheria and tetan us toxoids, adsorbed for pediatric use Rashaun Manning Jr., MD Work Phone: [facility] Work Phone: 08-23-1993 hepatitis B vaccine, unspecified formulation Rashaun Manning Jr., MD Work Phone: [facility] Work Phone: 03-21-1993 hepatitis B vaccine, unspecified formulation Rashaun Manning Jr., MD Work Phone: [facility] Work Phone: 02-14-1993 hepatitis B vaccine, unspecified formulation Rashaun Manning Jr., MD Work Phone: [facility] Work Phone: Payers Date Payer Category Payer Self-pay [id number] 2021 Medicare AETNA MEDICARE A ETNA MEDICARE PPO [id number] 2021-Present [phone] [address] [place] [address] PPO [id number] 2021 Medicare AETNA MEDICARE A ETNA MEDICARE PPO [id number] 2021-Present [phone] [address] [place] [address] PPO [id number] 2021 Medicare (Managed Care) [id number]. [id number] 2015 Private Health Insurance [facility] [id number] 1940 Unknown [id number] [facility] 1940 Unknown [id number] [facility] 1940 Unknown [id number] Medicare [id number] Unknown [id number] Unknown [id number] Unknown [id number] Social History Date Type Detail Facility Start: 08-08-2022 End: 10-12-2023 Assertion Unknown if ever smoked [facility] Work Phone: Start: 09-28-2011 End: 04-01-2025 Tobacco smoking status NHIS Never smoked tobacco [facility] Work Phone: Start: 05-01-2022 End: 08-03-2025 Alcohol intake Current non-drinker of alcohol (finding) [facility] Start: 1940 Sex Assigned At Not on file [facility] Start: 04-21-2022 End: 04-10-2025 Exposure to SARS-CoV-2 (event) Not sure [facility] Start: 09-28-2011 End: 04-01-2025 Tobacco use and exposure Smokeless tobacco non-user [facility] Work Phone: Start: 04-29-2018 None [facility] Start: 06-24-2017 Spouse/ Signif icant Other [facility] Start: 11-09-2020 Non-smoker [facility] Start: 1940 Sex Assigned At Male [facility] Start: 06-28-2023 End: 08-20-2024 History of Social function [facility] Work Phone: Start: 06-28-2023 End: 08-20-2024 Tobacco use panel [facility] Work Phone: Start: 10-20-2012 Adult Depression Screening Assessment 0 [facility] Work Phone: How often to you hav e a drink containing alcohol? Never [facility] Start: 01-25-2025 End: 02-04-2025 Exposure to SARS-CoV-2 (event) Unable to assess [facility] Start: 04-10-2025 Alcoholic beverage intake Lifetime non-drinker (finding) [facility] Work Phone: Medical Equipment Procedure Code Equipment Code Equipment Origin al Text Equipment Identifier Dates Anchr Sut 5.5mm Bcmps Crkscr - [id number] Start: 12-28-2014 Comment on above: Description: Arthrex Suture [place] [employer] Corkscrew FT, Vented, 5.5 x 14.7mm Anchr Sut Svllok Bcs Rcuf - [id number] Start: 12-28-2014 Comment on above: Description: Arthrex Suture [place] [employer] SwiveLock SP Self Punching 4.75 x 24.5mm [id number] Start: 11-11-2020 End: 06-28-2023 Comment on above: Test blood sugar(s) 2 times daily. Dx: Type 2 DM - Controlled E11.42 Insulin: No Test blood sugar(s) 1 times daily. Dx: Type 2 DM - Controlled E11.42 Insulin: No ([id number]) Uncoated shoulde r humeral stem prosthesis [id number] FDA Start: 02-01-2022 ([id number]) Stem-fixed humer al head prosthesis ()[id number] FDA Start: 02-01-2022 ([id number]) Stem-fixed humer al head prosthesis ()[id number] FDA Start: 02-01-2022 ([id number]) Stem-fixed humer al head prosthesis ()[id number] FDA Start: 02-01-2022 ([id number]) Reverse shoulder prosthesis head ()[id number] FDA Start: 02-01-2022 ([id number]) Total shoulder prosthesis ()[id number] FDA Start: 02-01-2022 ([id number]) Reverse shoulder prosthesis base plate ()[id number] 1 FDA Start: 02-01-2022 ([id number]) Metallic reverse shoulder prosthesis cup ()[id number] FDA Start: 02-01-2022 Kt Nrv Stm Ld Pe rq 50x5 [id number] Start: 01-14-2025 Kt Nrv Stm Ld Pe rq 50x5 [id number] Start: 01-14-2025 Lead Kit, Blue, 70cm, W/ 5mm Spacing - Sna - [id number] ()[id number](21) NA, [id number] FDA Start: 04-10-2025 Lead Kit, Blue, 70cm, W/ 5mm Spacing - Sna - [id number] ()[id number](21) NA, [id number] FDA Start: 04-10-2025 [place] Kit, Neurostimulator, N300 Lead - Sna - [id number] ()[id number])N A, [id number] FDA Start: 04-10-2025 Ipg Kit ()[id number], [id number] FDA Start: 04-10-2025 Comment on above: Description: Per gucci l only jdr 04/14 Goals Date Patient Goal Desired Activity /State Personal health goal Personal health goal Functional Status Date Assessment Result Facility 06-23-2025 Total score [AUDIT-C] 0 06/23/20 7:42 AM EDT Leatha Doss MA [facility] 04-07-2017 Are you deaf, or do you have serious difficulty hearing No 04/07/2017 12:58 PM DANIELT Lisseth Bernabe RN No [facility] 04-07-2017 Are you blind, or do you have serious difficulty seeing, even when wearing glasses No 04/07/2017 12:58 PM EDT Lisseth Bernabe, VISH No [facility] 04-07-2017 Do you have serious difficulty walking or climbing stairs No 04/07/2017 12:58 PM EDT Lisseth Bernabe RN No [facility] 04-07-2017 Do you have difficul ty dressing or bathing No 04/07/2017 12:58 PM DANIELT Lisseth Bernabe, VISH No [facility] 04-07-2017 Because of a physica l, mental, or emotional condition, do you have difficulty doing errands alone such as visiting a physician's office or shopping No 04/07/2017 12:58 PM Lisseth Galvin, VISH No [facility] Clini c Mental Status Date Assessment Result Facility 10-12-2023 Cognitive function Level Of Cons ciousness Awake;Alert;Appropriate [facility] Work Phone: 06-24-2023 Cognitive function Awake;Alert;A ppropriate;Fol lows Commands [facility] Work Phone: 08-08-2022 Cognitive function Awake;Alert;A ppropriate;Fol lows Commands [facility] Work Phone: 04-07-2017 Because of a physica l, mental, or emotional condition, do you have serious difficulty concentrating, remembering, or making decisions No 04/07/2017 12:58 PM EDT Lisseth Bernabe RN No [facility] Clinical Notes 03-17-2020 to 09-21-2025 Patient InstructionsRashaun Manning Jr., MD - 08/03/2025 9:04 AM Galindo Alarcon MD - 06/23/2025 8:45 AM Galindo Alarcon MD - 06/23/2025 7:42 AM EDTPatient Instructions Note Date & Type Note Facility 09-21-2025 Note HNO ID: [id number] Author: JUAN TORRES, ? Service: ? Author [...] RTC in 3-4 months. Juan Torres DPM [facility] 09-21-2025 Note HNO ID: [id number] Author: DIANE SAUCEDO RN Service: ? Author [...] Last HA1c 5.9 on 06/23/25 CRISTIN 06/16/25 [facility] 09-09-2025 Note HNO ID: [id number] Author: RUTH PERLA DO Service: ? Author [...] BCC R superior forehead 03/13-Moh's, BCC left yazdanism s/p Mohs 03/26/2024, Left mid cheek s/p [...] Past Histories independently gathered by the clinical learning support assistant and the remaining scribed note accurately describes my personal service to the patient. Ruth Perla, DO [facility] 08-03-2025 Instructions Rashaun Manning Jr., MD - 08/03/2025 9:17 AM EDT Your most recent body mass index (BMI) that we have on record is 31.95 kg/m2. Obstructive sleep apnea (ETHAN) worsens with an increase in weight; reduction in weight may improve or resolve your ETHAN. If you are not already seeking treatment, there are resources available at the [facility] such as a nutrition consultation or referral to weight management programs at our [facility] [place]. Please let us know if we can assist with a referral. documented in this encounter [facility] 08-03-2025 Note HNO ID: [id number] Author: RASHAUN MANNING JR, MD Service: ? [...] and replace equipment regularly and avoid ozone glass mould cleaner. Advised pt not to drive or [...] cream Apply to (more content not included)... [facility] 08-03-2025 History of Present illness [...] and replace equipment regularly and avoid ozone glass mould cleaner. Advised pt not to drive or [...] Coronary atherosclerosis of unspecified type of vessel, [place] or graft 01/22/2006 moderate Diverticulosis of colon [...] Low HDL. Lumbago 08/26/2008 Dr. Odin Coon, [facility]. Rotator cuff tear, right 10/21/2012 Salmonella [...] which included preparing to see the patient, oaal-ld-elms patient care, completing clinical documentation, obtaining and/or reviewing separately obtained history, performing a medically appropriate examination, counseling and educating the patient/family/caregiver, independently interpreting results (not separately reported), and communicating results to the patient/family/caregiver. [1] Social History Tobacco Use Smoking status: Never Smokeless tobacco: Never Vaping Use Vaping status: Never Used Substance Use Topics Alcohol use: No Drug use: No documented in this encounter [facility] 06-25-2025 Note HNO ID: [id number] Author: JD ALONSO RT(R) Service: ? Author Type: System Technologist Type: Progress Notes Filed: 06/25/2025 09:29 Note [...] PATIENT PRESENTS WITH AN IMPLANTABLE OR ATTACHED ART HANDLER: No RADIOLOGY DEPARTMENT: General X-ray: Exam(s) Completed: Chest X-Ray PERIPHERAL IV DATA: Not applicable SIGNED BY: RT Abdoulaye(R) June 25, 2025 9:29 AM [facility] 06-23-2025 Note HNO ID: [id number] Author: GALINDO YUAN MD Service: ? Author [...] of Multiple Sites Coronary Artery Disease of [place] Artery of [place] Heart With Stable Angina Pectoris Personal history [...] MEDIALANDLAT COMPARTMENTS Left 10/01/2017 revision L TKA, [facility] CC ABLATION SVT 04/06/2017 EP study, ablation for A.fib. COLONOSCOPY FLX DX W/COLLJ SPEC WHEN PFRMD 12/24/2002 Colonoscopy COLONOSCOPY FLX DX W/COLLJ SPEC WHEN PFRMD 05/11/2011 Colonoscopy ESOPHAGOGASTRODUODENOSCOPY TRANSORAL DIAGNOSTIC 03/18/2007 EGD ESOPHAGOGASTRODUODENOSCOPY TRANSORAL DIAGNOSTIC 06/11/2007 EGD ESOPHAGOGASTRODUODENOSCOPY TRANSORAL DIAGNOSTIC 05/11/2011 EGD [id number] RENE VELEZ SPINAL CORD STIMULATOR 04/10/2025 Perc. [...] with Dream wisp (more content not included)... [facility] 06-23-2025 History of Present illness [...] of Multiple Sites Coronary Artery Disease of [place] Artery of [place] Heart With Stable Angina Pectoris Personal history [...] MEDIAL&LAT COMPARTMENTS Left 10/01/2017 revision L TKA, [facility] CC ABLATION SVT 04/06/2017 EP study, ablation for A.fib. COLONOSCOPY FLX DX W/COLLJ SPEC WHEN PFRMD 12/24/2002 Colonoscopy COLONOSCOPY FLX DX W/COLLJ SPEC WHEN PFRMD 05/11/2011 Colonoscopy ESOPHAGOGASTRODUODENOSCOPY TRANSORAL DIAGNOSTIC 03/18/2007 EGD ESOPHAGOGASTRODUODENOSCOPY TRANSORAL DIAGNOSTIC 06/11/2007 EGD ESOPHAGOGASTRODUODENOSCOPY TRANSORAL DIAGNOSTIC 05/11/2011 EGD [id number] RENE VELEZ SPINAL CORD STIMULATOR 04/10/2025 Perc. [...] RATIO, URINE 5. Coronary artery disease of [place] artery of [place] heart with stable angina pectoris - ICD9: [...] Sakshi Sanz MD (Cardiology, EPS) Ana Mckoy, TANKER DRIVER.SOLAR SALES ASSOCIATE as Receptionist/Telephone Operator (Internal Medicine) Renan Bah MD (Cardiology) Ruth Perla DO (Dermatology) Rashaun Manning MD (Neurology-Sleep Medicine) Renan Bowling MD (Pain management) Juan Torres DPM (Podiatry) Odin Ochoa MD ([facility], Neurosurgery) Uri Diggs MD (Ophthalmology, [facility]). Medical/Family history review Reviewed and updated problem [...] prevention plan provided documented in this encounter [facility] 06-23-2025 Note HNO ID: [id number] Author: GALINDO YUAN MD Service: ? Author [...] Sakshi Sanz MD (Cardiology, EPS) Ana Mckoy, DONNIE.SOLAR SALES ASSOCIATE as Receptionist/Telephone Operator (Internal Medicine) Renan Bah MD (Cardiology) Ruth Perla DO (Dermatology) Rashaun Manning MD (Neurology-Sleep Medicine) Renan Bowling MD (Pain management) Juan Torres DPM (Podiatry) Odin Ochoa MD ([facility], Neurosurgery) Uri Diggs MD (Ophthalmology, [facility]). Medical/Family history review Reviewed and updated problem [...] information provided - Personalized prevention plan provided [facility] 06-16-2025 Note HNO ID: [id number] Author: JUAN TORRES, ? Service: ? Author [...] RTC in 3-4 months. Juan Torres DPM [facility] 06-16-2025 History of Present illness [...] Holli Johnson LPN documented in this encounter [facility] 06-16-2025 Instructions Juan Torres - 06/16/2025 8:34 [...] (or decreased sensation in your feet) a slubber operator should always cut your toenails. Be Careful [...] Go to your health care provider or slubber operator to treat these conditions. documented in this encounter [facility] 06-16-2025 Note HNO ID: [id number] Author: HOLLI JOHNSON LPN Service: ? Author Type: LICENSED NURSE Type: Progress Notes Filed: 06/16/2025 09:40 Note Text: AMB ROOMING INTAKE FLOWSHEET DATA Patient presents with: Right Foot - Established Patient, Pain, Diabetic Foot Care Left Foot - Established Patient, Pain, Diabetic Foot Care Holli Johnson LPN [facility] 06-08-2025 Note HNO ID: [id number] Author: ULISSES FOX PT Service: ? Author [...] increase T-score by a minimum 5 points. [place] in home exercise program. Patient will demonstrate [...] Planned: 4 Planned Treatment Interventions: Therapeutic exercise (46102), Therapeutic activities (85253), Neuromuscular re-education (46820), Manual therapy (38994), Gait Training (58306), Self-halfway management (53060), Patient/Family/Caregiver Education, Body Mechanics Training PLAN FOR [...] to facilitate proper (more content not included)... [facility] 06-08-2025 History of Present illness [...] increase T-score by a minimum 5 points. [place] in home exercise program. Patient will demonstrate [...] Planned: 4 Planned Treatment Interventions: Therapeutic exercise (54512), Therapeutic activities (26507), Neuromuscular re-education (19946), Manual therapy (57124), Gait Training (41622), Self-halfway management (60366), Patient/Family/Caregiver Education, Body Mechanics Training PLAN FOR [...] Stop Time : 937 Ulisses Fox PT Program_ID:[id number] Access Code: [email or web address] URL: [email or web address] Date: 06-08-2025 Prepared By: Ulisses Fox [...] - 10 reps documented in this encounter [facility] 05-21-2025 Note HNO ID: [id number] Author: GALINDO YUAN MD Service: ? Author Type: Physician Type: Progress Notes Filed: 05/21/2025 12:29 Note Text: This note was created using LocalMedriter. Subjective Patient presents with: Discussion Jg Chahal is a 84 year old male. Recording using TwitJump software for draft documentation of the visit was discussed with the patient/authorized pharmaceutical sales representative; all questions welcomed and answered. Patient/authorized pharmaceutical sales representative agreed to proceed Lower Extremity [...] and generator placed on April 10 at [facility]. - Reports 50% pain relief in the [...] Z96.89 - with benefit. Galindo Yuan MD [facility] 05-21-2025 History of Present illness Narrative This note was created using Enigmediater. Subjective Patient presents with: Discussion Jg Chahal is a 84 year old male. Recording using TwitJump software for draft documentation of the visit was discussed with the patient/authorized pharmaceutical sales representative; all questions welcomed and answered. Patient/authorized pharmaceutical sales representative agreed to proceed Lower Extremity [...] and generator placed on April 10 at [facility]. - Reports 50% pain relief in the [...] Galindo Yuan MD documented in this encounter [facility] 04-22-2025 History of Present illness Narrative [facility] Neurosurgery Diagnosis Diagnoses and all orders for [...] and Palpitations documented in this encounter [facility] Work Phone: 04-01-2025 Telephone encounter Note Received fax from Perioperative Medicine. Blank form scanned to chart. Surgeon: Dr. Ochoa Surgery: Percutaneous thoracic spinal cord stimulator electrodes and generator placement Date: 04/10/25 Faxed/routed Dr. Bah's OV 03/23/25 addressing pre-operative recommendations to [phone]. Nicole Wolfe RN [facility] 04-01-2025 Miscellaneous Notes Received fax from Perioperative Medicine. Blank form scanned to chart. Surgeon: Dr. Ochoa Surgery: Percutaneous thoracic spinal cord stimulator electrodes and generator placement Date: 04/10/25 Faxed/routed Dr. aBh'scott OV 03/23/25 addressing pre-operative recommendations to [phone]. Nicole Wolfe RN documented in this encounter [facility] 03-23-2025 Anurag Vitale MD - 03/23/2025 11:38 AM EDT Repeat fasting blood work documented in this encounter [facility] 03-23-2025 History of Present illness Narrative Images from the original note were not included. [facility] SE[facility]IONAL CARDIOLOGY Cardiology ([facility]) [address] [facility] [id number] OUTPATIENT VISIT DATE 03/23/2025 PRIMARY CARE PHYSICIAN: Galindo Yuan [address] [place] [address] HISTORY OF PRESENT ILLNESS: Mr. Chahal is a 84 year old gentleman with known coronary artery disease and prior coronary intervention, paroxysmal atrial fibrillation currently maintained on Tikosyn, hypertension, dyslipidemia and diabetes [id number] who presents for routine follow-up. Patient continues [...] Coronary atherosclerosis of unspecified type of vessel, [place] or graft 01/22/2006 moderate Diverticulosis of colon [...] Low HDL. Lumbago 08/26/2008 Dr. Odin Coon, [facility]. Rotator cuff tear, right 10/21/2012 Salmonella [...] MEDIAL&LAT COMPARTMENTS Left 10/01/2017 revision L TKA, [facility] CC ABLATION SVT 04/06/2017 EP study, [...] Tikosyn. He has a history of diabetes (srn-cxqieaw-juvsdeovo) hypertension and dyslipidemia. He presents the office for routine follow-up. PLAN AND RECOMMENDATIONS: 1. Coronary artery disease of [place] artery of [place] heart with stable angina pectoris - ICD9: [...] Anurag Bah MD documented in this encounter [facility] 03-23-2025 Note HNO ID: [id number] Author: ANURAG BAH MD Service: ? Author Type: Physician Type: Progress Notes Filed: 03/23/2025 12:23 Note Text: [facility]AL CARDIOLOGY Cardiology ([address]) [address] [facility] [id number] OUTPATIENT VISIT DATE 03/23/2025 PRIMARY CARE PHYSICIAN: Galindo Yuan [address] [place] [address] HISTORY OF PRESENT ILLNESS: Mr. Chahal is a 84 year old gentleman with known coronary artery disease and prior coronary intervention, paroxysmal atrial fibrillation currently maintained on Tikosyn, hypertension, dyslipidemia and diabetes [id number]-ovhnuvemt who presents for routine follow-up. Patient continues [...] Coronary atherosclerosis of unspecified type of vessel, [place] or graft 01/22/2006 moderate Diverticulosis of colon [...] Low HDL. Lumbago 08/26/2008 Dr. Odin Coon, [facility]. Rotator cuff tear, right 10/21/2012 Salmonella [...] MEDIALANDLAT COMPARTMENTS Left 10/01/2017 revision L TKA, [facility] CC ABLATION SVT 04/06/2017 EP study, [...] other (CHF) M (more content not included)... [facility] 03-13-2025 Note HNO ID: [id number] Author: ATIF GRUBBS MD Service: ? Author Type: Physician Type: Progress Notes Filed: 03/13/2025 14:42 Note Text: MOHS MICROGRAPHIC OPERATIVE REPORT SERVICE DATE: 03/13/2025 SERVICE TIME: 11:00 AM LOCATION: { [place]:[facility],[id number] REFERRING PROVIDER: Miryam Henson [address] [facility] [address] PROCEDURE START TIME: 11:45 AM PROCEDURE END TIME: 12:30 PM SURGEON: Dr. Atif Grubbs RESIDENT: Dr. 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 The documentation for this note was comp (more content not included)... [facility] 03-12-2025 Note HNO ID: [id number] Author: JUAN TORRES, ? Service: ? Author [...] RTC in 3-4 months. Juan Torres DPM [facility] 03-12-2025 Note HNO ID: [id number] Author: HOLLI JOHNSON LPN Service: ? Author [...] Pain, Diabetic Foot Care Holli Johnson LPN [facility] 02-24-2025 Telephone encounter Note Called pt to discuss biopsy results, no answer, v-mail left for pt to return call. [facility] 02-24-2025 Miscellaneous Notes Called pt to discuss [...] Seborrheic keratosis- Benign documented in this encounter [facility] 02-24-2025 Telephone encounter Note ----- Message from Ruth Perla DO sent at 02/24/2025 11:05 AM EDT ----- A. Skin, right superior forehead, shave biopsy: - Basal cell carcinoma, superficial and nodular types- Mohs B. Skin, left jawline, shave biopsy: - Seborrheic keratosis- Benign C. Skin, right lateral elbow, shave biopsy: - Seborrheic keratosis- Benign [facility] 02-18-2025 Instructions Marry Tucker MA - 02/18/2025 9:46 AM EDT Images from the original note were not included. Department of Dermatology [address] [place] [address] CARE FOR YOUR SHAVE BIOPSY SITE Please [...] are healing, please send your provider a Sookbox message or call [phone] and ask for a dermatology nurse. documented in this encounter [facility] 02-18-2025 Note HNO ID: [id number] Author: RUTH PERLA DO Service: ? Author [...] Personal history of NMSC: Yes: BCC left yazdanism s/p Mohs 03/26/2024, Left mid cheek s/p [...] abnormality, including cancer. In accordance with the [facility] policy, pre-procedure time out was performed to [...] match the s (more content not included)... [facility] 02-18-2025 History of Present illness [...] Personal history of NMSC: Yes: BCC left yazdanism s/p Mohs 03/26/2024, Left mid cheek s/p [...] abnormality, including cancer. In accordance with the [facility] policy, pre-procedure time out was performed to [...] Past Histories independently gathered by the clinical learning support assistant and the remaining scribed note accurately describes my personal service to the patient. uRth Perla DO documented in this encounter [facility] 02-04-2025 History of Present illness Narrative [facility] Neurosurgery Diagnosis Diagnoses and all orders for [...] trial on 01/[address] Bowling at [facility] where he received 80% improvement of pain. [...] are identified. documented in this encounter [facility] Work Phone: 02-03-2025 Telephone encounter Note Received a secure email from [place] (Rene Koalah) that the patient has decided to have [...] been faxed to Dr. Ochoa's office at [phone] with confirmation received. Email has been forwarded to [facility] Imaging department to push over images to . Informed [place] (Rene Easley) via email that records have been faxed and images will be pushed to with confirmation received. [facility] 02-03-2025 Miscellaneous Notes Received a secure email [...] been faxed to Dr. Ochoa's office at [phone] with confirmation received. Email has been forwarded to [facility] Imaging department to push over images to . Informed [place] (Rene Easley) via email that records have been faxed and images will be pushed to with confirmation received. documented in this encounter [facility] 01-23-2025 History of Present illness Narrative Radiology [...] PATIENT PRESENTS WITH AN IMPLANTABLE OR ATTACHED ART HANDLER: No RADIOLOGY DEPARTMENT: MR; Exam(s) Completed: Spine: Thoracic spine PERIPHERAL IV DATA: Not applicable SIGNED BY: RT Lebron(Magali) January 23, 2025 8:04 AM documented in this encounter [facility] 01-23-2025 Note HNO ID: [id number] Author: KELLI BLACKMON RT(R) Service: ? Author [...] PATIENT PRESENTS WITH AN IMPLANTABLE OR ATTACHED ART HANDLER: No RADIOLOGY DEPARTMENT: MR; Exam(s) Completed: Spine: Thoracic spine PERIPHERAL IV DATA: Not applicable SIGNED BY: RT Lebron(R) January 23, 2025 8:04 AM [facility] 01-21-2025 Note HNO ID: [id number] Author: RENAN BOWLING MD Service: ? Author Type: Physician Type: Progress Notes Filed: 01/21/2025 11:31 Note Text: [facility] Date: January 21, 2025 - 10:24 AM Chief Complaint: Back and leg pain SUBJECTIVE: Mr. Chahal presents to the [facility] for a follow up appointment [...] Coronary atherosclerosis of unspecified type of vessel, [place] or graft 01/22/2006 moderate Diverticulosis of colon [...] 07/18/2005 Low HDL. Lumbago 08/26/2008 Dr. Odin Cono, [facility]. Rotator cuff tear, right 10/21/2012 Salmonella [...] TRANSORAL DIAGNOSTIC 0 (more content not included)... [facility] 01-21-2025 History of Present illness Narrative Images from the original note were not included. [facility] Date: January 21, 2025 - 10:24 AM Chief Complaint: Back and leg pain SUBJECTIVE: Mr. Chahal presents to the [facility] for a follow up appointment regarding chronic [...] Coronary atherosclerosis of unspecified type of vessel, [place] or graft 01/22/2006 moderate Diverticulosis of colon [...] Low HDL. Lumbago 08/26/2008 Dr. Odin Coon, [facility]. Rotator cuff tear, right 10/21/2012 Salmonella [...] MEDIAL&LAT COMPARTMENTS Left 10/01/2017 revision L TKA, [facility] CC ABLATION SVT 04/06/2017 EP study, [...] Panel: No results found for: UQCANN, UQBNZL, GNL2XUU, UQAMPH, UQMAMP, UQBUPRE, UQNORBUP, UQMTHD, UQEDDP, UQTRAM, [...] record for those providers who practice within [facility] or with access to Inventalator via MD Connect, or via letter. 1. [...] your PCP/referring physician. documented in this encounter [facility] 01-14-2025 Note HNO ID: [id number] Author: SONIA OCONNELL RN Service: Nursing Author Type: Registered Nurse Type: Nursing Progress Note Filed: 01/14/2025 06:45 Note Text: Other: pt ready for OR, call light in reach, family called to bedside [facility] 01-02-2025 Telephone encounter Note Images from the [...] professional (such as master's or licensed clinical psychiatric social worker supervisor) to receive this device, (d) tried other [...] score 21% or more Appeal faxed to [phone] (EXPEDITED). Secure email sent to PreAccess Denials Support Team notifying of faxed appeal. Awaiting determination. [facility] 01-02-2025 Miscellaneous Notes Images from the original [...] professional (such as master's or licensed clinical psychiatric social worker supervisor) to receive this device, (d) tried other [...] score 21% or more Appeal faxed to [phone] (EXPEDITED). Secure email sent to PreAccess Denials Support Team notifying of faxed appeal. Awaiting determination. documented in this encounter [facility] 12-24-2024 Telephone encounter Note The following approved medication requests have been transmitted electronically. Requested Prescriptions Signed Prescriptions Disp Refills baclofen 10 mg tablet 30 tablet 0 Sig: Take 1 tablet by mouth at bedtime as needed (leg cramps.). Authorizing Provider: GALINDO YUAN MD [facility] 12-24-2024 Miscellaneous Notes The following approved medication requests have been transmitted electronically. Requested Prescriptions Signed Prescriptions Disp Refills baclofen 10 mg tablet 30 tablet 0 Sig: Take 1 tablet by mouth at bedtime as needed (leg cramps.). Authorizing Provider: GALINDO YUAN MD Renetta smalls from [facility] calls and states that insurance will not cover methocarbamol. Insurance will cover Tizanidine. Faby Zapien RN documented in this encounter [facility] 12-24-2024 Instructions William Vann PA-C - 12/24/2024 9:15 AM EST Images from the original note were not included. [facility] PATIENT PREOPERATIVE INSTRUCTIONS Renan Bowling MD has scheduled you for your procedure at this surgery center: [facility]: [phone] -- [address] [facility] [address]. Please read below carefully for your personalized [...] office. If you are currently using a gcqw-hvw-wwxw injectable or oral medication for diabetes or [...] Procedures: - YOU MUST HAVE A RESPONSIBLE BAG SEALER TAKE YOU HOME. A LINING STUFFER OR HEAD TRIMMER CANNOT BE MADE A RESPONSIBLE BAG SEALER. - We recommend that a responsible person [...] Advance Directive, please fax a copy to [phone] or email to for it to be [...] William Vann PA-C documented in this encounter [facility] 12-24-2024 History and physical note Images from the original note were not included. [facility] HISTORY AND PHYSICAL EXAMINATION SERVICE DATE: 12/24/2024 SERVICE TIME: 8:50 AM PRIMARY CARE PHYSICIAN: Galindo Yuan MD Assessment Patient has the following medical conditions which may affect eileen-operative course: Coronary artery disease of [place] artery of [place] heart with stable angina pectoris (HCC) Assessment: Follows with Cardiology in [place], and EP at , last OV with Diane Reed PA-C 07/24/2024 History of [place] and stents. Denies any recent chest pain or SOB. No Nitro in months. Hypercholesteremia Assessment: taking statin, PCP following Paroxysmal atrial fibrillation (HCC) Assessment: taking tikosyn, metoprolol and Eliquis, history of ablation 03/2017 Follows with Cardiology in [place], and EP at , last OV with [...] STOP-Bang Score: (+ETHAN- uses CPAP nightly ) [id number] Score: Age: >=75 Sex: male CHF history: No Hypertension history: Yes Stroke/TIA/thromboembolism history: No Vascular disease history: No Diabetes history: Yes [id number] Score: 4 ANESTHESIA FINDINGS: Intubation History: No [...] encounter. This is a virtual visit using Kinetic video visit. It required patient-provider interaction for [...] virtual visit. The visit was conducted using Kinetic video visit. It required patient-provider interaction for the medical decision making as documented below. I have communicated my name and active licensure. The patient's identity and physical location were verified at the time of this visit. Either the patient or their legal pharmaceutical sales representative has been informed of the risks and benefits of and alternatives to treatment through a remote evaluation and consents to proceed with the evaluation remotely. REVIEW OF SYSTEMS: General: No weight loss, malaise or fevers. Neurological: No history of TIA's, stroke, WEDDING FLORIST tumor, impaired sensorium, hemiplegia, paraplegia or quadraplegia. [...] Coronary atherosclerosis of unspecified type of vessel, [place] or graft 01/22/2006 moderate Diverticulosis of colon [...] Low HDL. Lumbago 08/26/2008 Dr. Odin Coon, [facility]. Rotator cuff tear, right 10/21/2012 Salmonella [...] Prior to Admission medications as of 12/24/24 0971 Medication Sig Last Dose Taking losartan (COZAAR) [...] 406 QTC Calculation (Bazett) 435 Calculated P [place] 90 Calculated R [place] 59 Calculated T [place] 36 Impression SINUS RHYTHM WITH 1ST DEGREE AV BLOCK OTHERWISE NORMAL ECG Confirmed by NATALIE PETERSON MD ([id number]) on 08/11/2024 11:20:32 AM Recent Results (from the past 33578 hour(s)) ECHO Collection Time: 08/07/23 9:01 AM [...] 24, 2024 TIME: 10:00 AM PAGER/CONTACT #: [facility] 12-24-2024 History and physical note Images from the original note were not included. [facility] HISTORY AND PHYSICAL EXAMINATION SERVICE DATE: 12/24/2024 SERVICE TIME: 8:50 AM PRIMARY CARE PHYSICIAN: Galindo Yuan MD Assessment Patient has the following medical conditions which may affect eileen-operative course: Coronary artery disease of [place] artery of [place] heart with stable angina pectoris (HCC) Assessment: Follows with Cardiology in [place], and EP at , last OV with Diane Reed PA-C 07/24/2024 History of [place] and stents. Denies any recent chest pain or SOB. No Nitro in months. Hypercholesteremia Assessment: taking statin, PCP following Paroxysmal atrial fibrillation (HCC) Assessment: taking tikosyn, metoprolol and Eliquis, history of ablation 03/2017 Follows with Cardiology in [place], and EP at , last OV with [...] STOP-Bang Score: (+ETHAN- uses CPAP nightly ) [id number] Score: Age: >=75 Sex: male CHF history: No Hypertension history: Yes Stroke/TIA/thromboembolism history: No Vascular disease history: No Diabetes history: Yes [id number] Score: 4 ANESTHESIA FINDINGS: Intubation History: No [...] encounter. This is a virtual visit using Kinetic video visit. It required patient-provider interaction for [...] virtual visit. The visit was conducted using Kinetic video visit. It required patient-provider interaction for the medical decision making as documented below. I have communicated my name and active licensure. The patient's identity and physical location were verified at the time of this visit. Either the patient or their legal pharmaceutical sales representative has been informed of the risks and benefits of and alternatives to treatment through a remote evaluation and consents to proceed with the evaluation remotely. REVIEW OF SYSTEMS: General: No weight loss, malaise or fevers. Neurological: No history of TIA's, stroke, [place] FLORIST tumor, impaired sensorium, hemiplegia, paraplegia or quadraplegia. [...] Coronary atherosclerosis of unspecified type of vessel, [place] or graft 01/22/2006 moderate Diverticulosis of colon [...] Low HDL. Lumbago 08/26/2008 Dr. Odin Coon, [facility]. Rotator cuff tear, right 10/21/2012 Salmonella [...] MEDIAL&LAT COMPARTMENTS Left 10/01/2017 revision L TKA, [facility] CC ABLATION SVT 04/06/2017 EP study, [...] daily. Taking Yes TENS unit and electrodes [facility] as instructed. Taking Yes melatonin 3 [...] 406 QTC Calculation (Bazett) 435 Calculated P [place] 90 Calculated R [place] 59 Calculated T [place] 36 Impression SINUS RHYTHM WITH 1ST DEGREE AV BLOCK OTHERWISE NORMAL ECG Confirmed by NATALIE PETERSON MD ([id number]) on 08/11/2024 11:20:32 AM Recent Results (from the past 99150 hour(s)) ECHO Collection Time: 08/07/23 9:01 AM [...] AM PAGER/CONTACT #: documented in this encounter [facility] 12-23-2024 Telephone encounter Note Renetta smalls from [facility] and states that insurance will not cover methocarbamol. Insurance will cover Tizanidine. Faby Zapien RN [facility] 12-23-2024 Note HNO ID: [id number] Author: GALINDO YUAN MD Service: ? Author Type: Physician Type: Progress Notes Filed: 12/23/2024 09:19 Note Text: This note was created using LocalMedriter. Subjective Jg Chahal is a 84 year [...] of Multiple Sites Coronary Artery Disease of [place] Artery of [place] Heart With Stable Angina Pectoris (Hcc) Personal [...] 2. Essential hypertension (more content not included)... [facility] 12-23-2024 History of Present illness [...] of Multiple Sites Coronary Artery Disease of [place] Artery of [place] Heart With Stable Angina Pectoris (Hcc) Personal [...] MG TABLET 4. Coronary artery disease of [place] artery of [place] heart with stable angina pectoris (HCC) - ICD9: 414.01, 413.9, ICD10: I25.118 - Stable. 5. 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 Kidney insufficiency - ICD9: 593.9, ICD10: N28.9 - Hydration stressed. Galindo Yuan MD documented in this encounter [facility] 12-11-2024 Note HNO ID: [id number] Author: JUAN TORRES, ? Service: ? Author [...] RTC in 3-4 months. Juan Torres DPM [facility] 12-11-2024 History of Present illness [...] Objective: Patient presents to clinic ambulating in [facility] Vasc: DP and PT pulses [...] Holli Johnson LPN documented in this encounter [facility] 12-11-2024 Instructions Juan Torres - 12/11/2024 8:34 [...] (or decreased sensation in your feet) a slubber operator should always cut your toenails. Be Careful [...] Go to your health care provider or slubber operator to treat these conditions. documented in this encounter [facility] 12-11-2024 Note HNO ID: [id number] Author: HOLLI JOHNSON LPN Service: ? Author Type: LICENSED NURSE Type: Progress Notes Filed: 12/11/2024 08:58 Note Text: AMB ROOMING INTAKE FLOWSHEET DATA Pain Pain Level: 4 Pain Location: Toe Description: Sore Duration Units: Months Frequency: Intermittent Intervention/Comfort measure: Relaxation, Reposition Patient presents with: Right Foot - Established Patient, Pain, nail care Left Foot - Established Patient, Pain, nail care Holli Johnson LPN [facility] 12-10-2024 Telephone encounter Note Prescription [...] Maryellen Greenberg December 10, 2024 8:02 AM [facility] 12-10-2024 Miscellaneous Notes Prescription Refill Information The [...] 2024 8:02 AM documented in this encounter [facility] 12-05-2024 Note HNO ID: [id number] Author: GALINDO YUAN MD Service: ? Author Type: Physician Type: Progress Notes Filed: 12/05/2024 13:42 Note Text: This note was created using LocalMedriter. Subjective Jg Chahal is a 84 year [...] of Multiple Sites Coronary Artery Disease of [place] Artery of [place] Heart With Stable Angina Pectoris (Hcc) Personal [...] UA (POCT) Migue (more content not included)... [facility] 12-05-2024 History of Present illness Narrative This note was created using LocalMedriter. Subjective Jg Chahal is a 84 year [...] of Multiple Sites Coronary Artery Disease of [place] Artery of [place] Heart With Stable Angina Pectoris (Hcc) Personal [...] Galindo Yuan MD documented in this encounter [facility] 12-03-2024 Telephone encounter Note Procedure: SCS Trial [...] Dr. Bowling during next available office day. [facility] 12-03-2024 Miscellaneous Notes Procedure: SCS Trial Procedure [...] available office day. documented in this encounter [facility] 12-03-2024 History of Present illness Narrative [facility]IORAL MEDICINE EVALUATION REFERRING PHYSICIAN: Renan Bowling MD ATTENDING PHYSICIAN: Silvia Massey, PHD Jg Chahal PATIENT TYPE: [facility] : 1940 DATE OF SERVICE: December 03, 2024 IDENTIFYING INFORMATION Jg Chahal is a 84 year old male from [place], [place] who is referred for evaluation by Renan Bowling MD to determine if he would be an appropriate candidate for a spinal cord stimulator. He was accompanied to his appointment by his spouse, Kerri. It is his understanding that Dr. Bowling would do the trial, and if he moves to permanent implant, he would see someone at [facility] [place]. PRESENTING COMPLAINT He presents with failed back [...] Coronary atherosclerosis of unspecified type of vessel, [place] or graft 01/22/2006 moderate Diverticulosis of colon [...] Low HDL. Lumbago 08/26/2008 Dr. Odin Coon, [facility]. Rotator cuff tear, right 10/21/2012 Salmonella [...] MEDIAL&LAT COMPARTMENTS Left 10/01/2017 revision L TKA, [facility] CC ABLATION SVT 04/06/2017 EP study, [...] graduate, no background. 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 If he had some [...] Silvia Massey, PHD documented in this encounter [facility] 11-25-2024 Telephone encounter Note Next office appointment 12/23/24 Maryanne Colunga MA [facility] 11-25-2024 Miscellaneous Notes Next office appointment 12/23/24 [...] asking the name of the psychiatrist in [place]. Please return call to patient. Chelsey Casillas November 25, 2024 1:05 PM documented in this encounter [facility] 11-25-2024 Telephone encounter Note Prescription Refill Information [...] asking the name of the psychiatrist in [place]. Please return call to patient. Chelsey Casillas November 25, 2024 1:05 PM [facility] 11-24-2024 Telephone encounter Note Called and spoke [...] to our office. Patient's granddaughter verbalized understanding. [facility] 11-24-2024 Miscellaneous Notes Called and spoke with [...] Patient's granddaughter requesting return telephone call at [phone]. CRISTIN: 10/01/2024 w/Dr. Bowling PLAN: The patient [...] cord stimulation trial. documented in this encounter [facility] 11-24-2024 Telephone encounter Note Patient's granddaughter contacted Pain Management with voicemail on 11/24/2024 at 1238 inquiring if patient can schedule with a provider other than Dr. Pop for his psychological testing prior to his spinal cord stimulator (SCS) trial. Patient's granddaughter stating that patient has been unable to schedule an appointment with Dr. Pop. Patient's granddaughter requesting return telephone call at [phone]. CRISTIN: 10/01/2024 w/Dr. Bowling PLAN: The patient [...] week after the spinal cord stimulation trial. [facility] 11-05-2024 Note HNO ID: [id number] Author: SUSSY NG LPN Service: ? Author Type: LICENSED NURSE Type: Progress Notes Filed: 11/05/2024 11:05 Note Text: Patient presents for Flu vaccine. Denies any problems at this time. Tolerated injection well. Sussy Ng LPN [facility] 11-05-2024 History of Present illness Narrative Patient presents for Flu vaccine. Denies any problems at this time. Tolerated injection well. Sussy Ng LPN documented in this encounter [facility] 10-14-2024 Telephone encounter Note MyChart message read: Last read by Jr Marlee Chahal at 5:23 PM on 10/13/2024. [facility] 10-14-2024 Miscellaneous Notes MyChart message read: Last read by Jr Chahal at 5:23 PM on 10/13/2024. Thoracic XRAY obtained for potential spinal cord stimulator (SCS) trial. MyChart message sent. documented in this encounter [facility] 10-13-2024 Telephone encounter Note Thoracic XRAY obtained for potential spinal cord stimulator (SCS) trial. MyChart message sent. [facility] 10-02-2024 History of Present illness Narrative Radiology [...] PATIENT PRESENTS WITH AN IMPLANTABLE OR ATTACHED ART HANDLER: No RADIOLOGY DEPARTMENT: General X-ray: Exam(s) Completed: Spine X-Ray(s): Thoracic PERIPHERAL IV DATA: Not applicable SIGNED BY: RT Yareli(R) October 02, 2024 9:22 AM documented in this encounter [facility] 10-02-2024 Note HNO ID: [id number] Author: PRAVEEN ALFORD RT(R) Service: Radiology Author [...] PATIENT PRESENTS WITH AN IMPLANTABLE OR ATTACHED ART HANDLER: No RADIOLOGY DEPARTMENT: General X-ray: Exam(s) Completed: Spine X-Ray(s): Thoracic PERIPHERAL IV DATA: Not applicable SIGNED BY: RT Yareli(R) October 02, 2024 9:22 AM [facility] 10-01-2024 Telephone encounter Note Prescription [...] Alia Greenberg October 01, 2024 11:57 AM [facility] 10-01-2024 Miscellaneous Notes Prescription Refill Information The [...] 2024 11:57 AM documented in this encounter [facility] 10-01-2024 Note HNO ID: [id number] Author: RENAN BOWLING MD Service: ? Author Type: Physician Type: Progress Notes Filed: 10/01/2024 10:38 Note Text: [facility] Date: October 01, 2024 - 9:20 AM Chief Complaint: back and leg pain SUBJECTIVE: Mr. Chahal presents to the [facility] for a follow up appointment [...] is not currently receiving medications through the [facility]. REVIEW OF SYSTEMS: Constitutional: (-) Fever (-) [...] Coronary atherosclerosis of unspecified type of vessel, [place] or graft 01/22/2006 moderate Diverticulosis of colon [...] Low HDL. Lumbago 08/26/2008 Dr. Odin Coon, [facility]. Rotator cuff tear, right 10/21/2012 Salmonella [...] MEDIALANDLAT COMPARTMENTS Left 10/01/2017 revision L TKA, [facility] CC ABLATION SVT 04/06/2017 EP study, ablation for A.fib. COLONOSCOPY FLX DX W/COLLJ SPEC WHEN PFRMD 12/24/2002 Colonoscopy COLONOSCOPY FLX DX W/COLLJ SPEC WHEN PFRMD 05/11/2011 Colonoscopy (more content not included)... [facility] 10-01-2024 History of Present illness Narrative Images from the original note were not included. [facility] Date: October 01, 2024 - 9:20 AM Chief Complaint: back and leg pain SUBJECTIVE: Mr. Chahal presents to the [facility] for a follow up appointment regarding [...] is not currently receiving medications through the [facility]. REVIEW OF SYSTEMS: Constitutional: (-) Fever [...] Coronary atherosclerosis of unspecified type of vessel, [place] or graft 01/22/2006 moderate Diverticulosis of colon [...] Low HDL. Lumbago 08/26/2008 Dr. Odin Coon, [facility]. Rotator cuff tear, right 10/21/2012 Salmonella [...] MEDIAL&LAT COMPARTMENTS Left 10/01/2017 revision L TKA, [facility] CC ABLATION SVT 04/06/2017 EP study, [...] Panel: No results found for: UQCANN, UQBNZL, XGL4RAP, UQAMPH, UQMAMP, UQBUPRE, UQNORBUP, UQMTHD, UQEDDP, UQTRAM, [...] record for those providers who practice within [facility] or with access to Inventalator via MD Connect, or via letter. 1. [...] your PCP/referring physician. documented in this encounter [facility] 09-25-2024 Progress note Formatting of t his note might be different from the original. Patient informed of pathology results via [employer]. Maryellen Mitchell MD [facility] 09-25-2024 Miscellaneous Notes Patient informed of pathology results via [employer]. Maryellen Mitchell MD documented in this encounter [facility] 09-22-2024 Instructions Marie Rangel MA - 09/22/2024 [...] to manage their pain after surgery with Akls-bmu-Gdzjgdo (OTC) medications such as Tylenol (acetaminophen) and [...] How will I alternate my regular strength kepj-zwo-qmhtbpx pain medication? You will take a dose [...] We recommend that you follow this schedule rbkzpi-ttx-dmuey for at least 3 days after surgery, [...] 72 hours following surgery Return to referring mining teacher for skin checks every 6 months Wear sunscreen PHONE NUMBERS: [place] contact number: [phone], [phone], [phone], or [phone] (Sunday-Sunday, 8am-5pm) For emergencies only: On-call number: [phone] and ask for the automation tech dermatology surgery fellow documented in this encounter [facility] 09-22-2024 History of Present illness Narrative Patient is here for: Excision and Closure Site: left glabella Referral from Dr. Dr. Ruth Perla . PATIENT ID CONFIRMED: by Name and Birthdate YES PATIENT ID VERIFIED BY: Marie Rangel MA ANTIGOAGULANTS: Eliquis PACEMAKER: NO ANTIBIOTIC PROPHYLAXIS: Not required SURGERY ROOM:[facility] Dr. Maryellen Mitchell Pre photos taken [...] SUTURE REMOVAL: 7 DAYS PATIENT DISCHARGED TO BAG SEALER/NAME: family TOTAL OPERATIVE TIME: MINUTES: 30 min The documentation for this note was completed by Marie Rangel MA acting as scribe for Maryellen Mitchell MD. September 22, 2024 3:02 PM. I agree with the operative note independently gathered by the clinical learning support assistant and the remaining scribed note accurately describes my personal service to the patient. Maryellen Mitchell MD documented in this encounter [facility] 09-10-2024 Telephone encounter Note Prescription Refill Information [...] tablet by mouth once daily. Alia Baxter [facility] September 10, 2024 8:20 AM [facility] 09-10-2024 Miscellaneous Notes Prescription Refill Information The [...] 2024 8:20 AM documented in this encounter [facility] 09-09-2024 History of Present illness Narrative Last [...] for nail care. documented in this encounter [facility] 09-09-2024 Instructions Juan Torres - 09/09/2024 8:28 [...] (or decreased sensation in your feet) a slubber operator should always cut your toenails. Be Careful [...] Go to your health care provider or slubber operator to treat these conditions. documented in this encounter [facility] 09-01-2024 Telephone encounter Note Called and spoke with Patient. He accepted appt for 10/01/2024 at 9:30 AM Miryam Barker [facility] 09-01-2024 Miscellaneous Notes Called and spoke with [...] Why: SCS Evaluation documented in this encounter [facility] 09-01-2024 Telephone encounter Note Received secure staff [...] scheduling. Provider: Dr. Bowling Why: SCS Evaluation [facility] 08-27-2024 History of Present illness Narrative SPINE [...] trazodone hcl(DESYREL 150 MG TAB) as necessary [id number] TAB Take one(1) tablet daily. hyoscyamine sublingual [...] 9:56 AM PAGER: documented in this encounter [facility] 08-27-2024 Note HNO ID: [id number] Author: BLANCO HERNANDEZ MD Service: ? Author [...] trazodone hcl(DESYREL 150 MG TAB) as necessary [id number] TAB Take one(1) tablet daily. hyoscyamine sublingual [...] August 27, 2024 TIME: 9:56 AM PAGER: [facility] 08-27-2024 Telephone encounter Note LVM for pt to schedule. [facility] 08-27-2024 Miscellaneous Notes LVM for pt to schedule. PROCEDURE & TIME REQUIRED Excision: TIME REQUIRED: Other: A. Skin, left glabella, shave biopsy: - Sebaceous adenoma. Size: 0.4 cm 60 minutes for PGY2 45 minutes for PGY3 30 minutes for PGY4 or staff Approved by: Frantz Mosley RN Schedule with: Patient Preference Location: Patient Preference *Photos in Get Images documented in this encounter [facility] 08-27-2024 Telephone encounter Note PROCEDURE & TIME REQUIRED Excision: TIME REQUIRED: Other: A. Skin, left glabella, shave biopsy: - Sebaceous adenoma. Size: 0.4 cm 60 minutes for PGY2 45 minutes for PGY3 30 minutes for PGY4 or staff Approved by: Frantz Mosley RN Schedule with: Patient Preference Location: Patient Preference *Photos in Get Images [facility] 08-27-2024 Telephone encounter Note ----- Message from Ruth Prela DO sent at 08/26/2024 5:22 PM EDT ----- A. Skin, left glabella, shave biopsy: - Sebaceous adenoma- Excision with Derm Surg [facility] 08-27-2024 Miscellaneous Notes ----- Message from Ruth Perla DO sent at 08/26/2024 5:22 PM EDT ----- A. Skin, left glabella, shave biopsy: - Sebaceous adenoma- Excision with Derm Surg documented in this encounter [facility] 08-20-2024 Instructions Sussy Zepeda MA - 08/20/2024 1:49 PM EDT Images from the original note were not included. Department of Dermatology [address] [place] [address] CARE FOR YOUR SHAVE BIOPSY SITE Please [...] are healing, please send your provider a Sookbox message or call [phone] and ask for a dermatology nurse. SKIN [...] instructed by your physician, you may take skil-dgj-ikmaggg pain medications as needed for discomfort. 5. [...] office at . documented in this encounter [facility] 08-20-2024 History of Present illness Narrative Established Patient Visit Last Visit Date: 02/15/2024 CC: Skin check HPI: 84 year old male. Today's concerns are: 1) Skin check (upper body only per patient) Location: Forehead, right ear, arms Duration: Within the last 6 months Symptoms: Forehead-itchy, Right ear-benedr Current treatment: None Past treatment: None Past Derm History: Personal history of melanoma: No Family history of melanoma (1st degree relative): Yes: Father, brothers, maternal uncle History of atypical nevi: No Personal history of NMSC: Yes: BCC left yazdanism s/p Mohs 03/26/2024, Left mid cheek s/p [...] abnormality, including cancer. In accordance with the [facility] policy, pre-procedure time out was performed to [...] Past Histories independently gathered by the clinical learning support assistant and the remaining scribed note accurately describes my personal service to the patient. Ruth Perla DO documented in this encounter [facility] 08-18-2024 Telephone encounter Note Patient called back asking for Dr. Hernandez's review and recommendations after his review of recent CT. Advised we would call him back. [facility] 08-18-2024 Miscellaneous Notes Patient called back asking [...] review and recommendations documented in this encounter [facility] 08-12-2024 Telephone encounter Note Patient left message [...] Routing to provider for review and recommendations [facility] 08-06-2024 History of Present illness Narrative Radiology [...] PATIENT PRESENTS WITH AN IMPLANTABLE OR ATTACHED ART HANDLER: No RADIOLOGY DEPARTMENT: CT; Exam(s) Completed: Spine PERIPHERAL IV DATA: Not applicable SIGNED BY: RT Richar(R) August 06, 2024 3:46 PM documented in this encounter [facility] 08-04-2024 History of Present illness Narrative Images from the original note were not included. SPINE SURGERY NEW PATIENT This is an in-person visit. PCP: Galindo Yuan MD REFERRING PROVIDER: Krystin Hernandez APRN.[facility] SUBJECTIVE HISTORY OF PRESENT ILLNESS: Jg [...] of Multiple Sites Coronary Artery Disease of [place] Artery of [place] Heart With Stable Angina Pectoris (Hcc) Personal [...] Coronary atherosclerosis of unspecified type of vessel, [place] or graft 01/22/2006 moderate Diverticulosis of colon [...] Low HDL. Lumbago 08/26/2008 Dr. Odin Coon, [facility]. Rotator cuff tear, right 10/21/2012 Salmonella [...] MEDIAL&LAT COMPARTMENTS Left 10/01/2017 revision L TKA, [facility] CC ABLATION SVT 04/06/2017 EP study, [...] 11:00 AM PAGER: documented in this encounter [facility] 2024 Instructions Rashaun [facility] Jr., MD - 2024 9:30 AM EDT Your most recent body mass index (BMI) that we have on record is 32.2 kg/m2. Obstructive sleep apnea (ETHAN) worsens with an increase in weight; reduction in weight may improve or resolve your ETHAN. If you are not already seeking treatment, there are resources available at the [facility] such as a nutrition consultation or referral to weight management programs at our [facility] [place]. Please let us know if we can assist with a referral. documented in this encounter [facility] 2024 History of Present illness Narrative ESTABLISHED [...] Coronary atherosclerosis of unspecified type of vessel, [place] or graft Comment: moderate 07/18/2005: Diverticulosis of [...] HDL. 08/26/2008: Lumbago Comment: Dr. Odin Coon, [facility]. 10/21/2012: Rotator cuff tear, right 08/2010: [...] and replace equipment regularly and avoid ozone glass mould cleaner. Advised pt not to drive or [...] which included preparing to see the patient, ygtj-fz-vtiu patient care, completing clinical documentation, obtaining and/or reviewing separately obtained history, performing a medically appropriate examination, counseling and educating the patient/family/caregiver, independently interpreting results (not separately reported), and communicating results to the patient/family/caregiver (results include interp of PAP data download). documented in this encounter [facility] 07-24-2024 Instructions Diane Bruce PA-C - 07/24/2024 11:26 AM EDT - Continue tikosyn for rhythm control, continue Toprol - Continue eliquis for stroke protection - I placed orders for labs and EKG's for tikosyn monitoring --> you should get labs now for tikosyn (either here or in [place]) - In 6 months get an EKG and labs again - I will message Dr Bah but also call their office about the chest pain - We will continue to see you annually Diane Bruce PA-C documented in this encounter [facility] 07-24-2024 History of Present illness Narrative Images from the original note were not included. [facility] [place] Justin Gruber Department of Cardiovascular Medicine SECTION OF CARDIAC PACING and ELECTROPHYSIOLOGY OUTPATIENT VISIT DATE July 24, 2024 OUTPATIENT VISIT TYPE ESTABLISHED PRIMARY CARE PHYSICIAN: Galindo Yuan [address] [place] [address] CHIEF COMPLAINT: Cardiology follow up HISTORY OF [...] follow up Has seen Dr Bah in [place] for general cardiology. Says he has been [...] Coronary atherosclerosis of unspecified type of vessel, [place] or graft Comment: moderate 07/18/2005: Diverticulosis of [...] HDL. 08/26/2008: Lumbago Comment: Dr. Odin Coon, [facility]. 10/21/2012: Rotator cuff tear, right 08/2010: [...] MEDIAL&LAT COMPARTMENTS; Left Comment: revision L TKA, [facility] 04/06/2017: CC ABLATION SVT Comment: EP [...] months needs EKG and labs locally in [place] -In we will see him again in 1 year I personally interviewed, confirmed and edited the above information as obtained by others. CONTACT INFORMATION: Diane Bruce PA-C I spent 35 minutes in the visit, with more than 50% of the total bdrc-ad-jxkw time of the visit in counseling / coordination of care. documented in this encounter [facility] 06-20-2024 Instructions Ana Mckoy, TANKER DRIVER.SOLAR SALES ASSOCIATE - 06/20/2024 7:21 AM EDT Screening schedule [...] review all the medicines you take, even nuyq-zwu-adidzlb medicines. As you get older, the way [...] certain medical conditions. documented in this encounter [facility] 06-20-2024 History of Present illness Narrative Images [...] Dr. Bowling (pain management) Outside specialists seen: [facility] Medical/Family history review Reviewed and updated problem [...] immunization - ICD9: V03.89, ICD10: Z23 - PFIZER-[employer] COVID-19 VACCINE (2022- [place]) AGE 12+ YR - RSV PRINTED PHARMACY INSTRUCTIONS Ana Mckoy APRN.LOWELL documented in this encounter [facility] 06-17-2024 History of Present illness Narrative Images from the original note were not included. Subjective Jg Chahal presents to [facility] Pain Management Department for a follow up [...] has a history of spinal fusion from [facility] about 3 years ago. He has [...] which included preparing to see the patient, tfiw-ky-nydx patient care, completing clinical documentation, performing a [...] June 17, 2024 documented in this encounter [facility] 06-16-2024 History of Present illness Narrative Images from the original note were not included. [facility] SECTION OF REGIONAL CARDIOLOGY Cardiology ([facility]) [address] [facility] [id number] OUTPATIENT VISIT DATE 06/16/2023 PRIMARY CARE PHYSICIAN: Galindo Yuan [address] [place] [address] HISTORY OF PRESENT ILLNESS: Mr. Chahal is a 83 year old gentleman with known coronary artery disease and prior coronary intervention, paroxysmal atrial fibrillation currently maintained on Tikosyn, hypertension, dyslipidemia and diabetes vsj-ynzbqym-nymqnafof who presents for routine follow-up. Patient continues [...] Coronary atherosclerosis of unspecified type of vessel, [place] or graft 01/22/2006 moderate Diverticulosis of colon [...] Low HDL. Lumbago 08/26/2008 Dr. Odin Coon, [facility]. Rotator cuff tear, right 10/21/2012 Salmonella [...] MEDIAL&LAT COMPARTMENTS Left 10/01/2017 revision L TKA, [facility] CC ABLATION SVT 04/06/2017 EP study, [...] Tikosyn. He has a history of diabetes (fqt-hskhjxy-ehhwxakvr) hypertension and dyslipidemia. He presents the office for routine follow-up. PLAN AND RECOMMENDATIONS: 1. Coronary artery disease of [place] artery of [place] heart with stable angina pectoris (HCC) - [...] Anurag Bah MD documented in this encounter [facility] 06-03-2024 History of Present illness Narrative Last [...] to right toes. documented in this encounter [facility] 06-03-2024 Instructions Juan Torres - 06/03/2024 9:47 [...] (or decreased sensation in your feet) a slubber operator should always cut your toenails. Be Careful [...] Go to your health care provider or slubber operator to treat these conditions. documented in this encounter [facility] 04-21-2024 Telephone encounter Note Faxed signed Rx to [facility] with OV notation to [phone]. Dede Baxter LPN [facility] 04-21-2024 Miscellaneous Notes Faxed signed Rx to [facility] with OV notation to [phone]. Dede Baxter LPN documented in this encounter [facility] 03-26-2024 Instructions Sahrmila Douglas PROJECT PRODUCT MANAGER - 03/26/2024 4:36 PM EDT WOUND CARE [...] to manage their pain after surgery with Rmlp-yen-Ekqnumm (OTC) medications such as Tylenol (acetaminophen) and [...] How will I alternate my regular strength pnvw-psh-tkykvaq pain medication? You will take a dose [...] We recommend that you follow this schedule viivli-lqd-hgakl for at least 3 days after surgery, [...] 72 hours following surgery Return to referring mining teacher for skin checks every 6 months Wear sunscreen PHONE NUMBERS: Chary: [phone] and ask to be transferred to Dermatology (Sunday-Sunday, 8am-5pm) For emergencies only: On-call number: [phone] and ask for the automation tech dermatology surgery fellow documented in this encounter [facility] 03-26-2024 History of Present illness Narrative MOHS MICROGRAPHIC OPERATIVE REPORT SERVICE DATE: 03/26/2024 SERVICE TIME: 1400 LOCATION: [facility] [address] [place], [place] [address] REFERRING PROVIDER: Ruth Perla DO PROCEDURE START [...] BCC Nodular and Superficial of the left yazdanism Tumor Type: Primary Path Report Available at Bedside: Inside pathology report # [id number] Pre-op Size: 0.6 cm - 1 cm, (0.9 X 0.8 cm) Lymphadenopathy: None Indication for Mohs: Type of tumor, Rapid growth, and Age of patient Location: Area H: (Mask Areas of the Face - Includes Central Face, Eyelids, Inner/Outer [place], Eyebrows, Nose, Chin, Lips, Ears, Periauricular Skin and Baptist) Preparation: Povidone-iodine LAYER A The patient was [...] surgery on a Primary tumor type from [facility] yazdanism (location of tumor). Post-op Defect Size: 1.5 [...] WITH VERBAL UNDERSTANDING: Yes PATIENT DISCHARGED TO BAG SEALER/NAME: Grand Daughter FOLLOW UP:every 6 months for [...] by the Fellow. documented in this encounter [facility] 03-13-2024 Telephone encounter Note Patient aware. [facility] 03-13-2024 Miscellaneous Notes Patient aware. Patient is scheduled for left L4-5 lumbar trans foraminal epidural steroid injection on March 18, 2024. Patient takes Eliqus [address] Renan Bowling asking for consent to withhold their anticoagulant. Please advise. documented in this encounter [facility] 03-11-2024 Telephone encounter Note Patient is scheduled for left L4-5 lumbar trans foraminal epidural steroid injection on March 18, 2024. Patient takes Eliqus [address] Renan Bowling asking for consent to withhold their anticoagulant. Please advise. [facility] 02-28-2024 Miscellaneous Notes Procedure: Left L4-5 TFESI Procedure Date: 03/18/2024 Cardiac Clearance: Eliquis, ASA 81mg Per patient, Eliquis managed by his black top roller, Dr. Araiza. Cardiac Clearance letter generated and faxed to Dr. Argueta. Awaiting determination. documented in this encounter [facility] 02-25-2024 Miscellaneous Notes MyChart message unread. Additional [...] Routing to provider. documented in this encounter [facility] 02-21-2024 History of Present illness Narrative CC [...] home with instruction to follow up with black top roller and PCP. Pt identified by name and . Reason for Review: Payor request Patient Attributed To: QAE Payer: LEON Chart Review For: Utilization: ED Total Patient High CostTotal Patient High Cost {HIGH COST:191013) Quality measure review Payor request for assistance Action Taken: No action needed Karma Navarro RN February 21, 2024 10:58 AM documented in this encounter [facility] 02-19-2024 Miscellaneous Notes Patient contacted and agrees to MOHS procedure. ----- Message from Rtuh Perla DO sent at 02/19/2024 12:16 PM EDT ----- A. Skin, left yazdanism, shave biopsy: - Basal cell carcinoma, superficial and nodular types- Mohs documented in this encounter [facility] 02-19-2024 History of Present illness Narrative Radiology [...] PATIENT PRESENTS WITH AN IMPLANTABLE OR ATTACHED ART HANDLER: No RADIOLOGY DEPARTMENT: MR; Exam(s) Completed: Spine: Lumbar spine PERIPHERAL IV DATA: Not applicable SIGNED BY: RT Lebron(Magali) February 19, 2024 8:00 AM documented in this encounter [facility] 02-13-2024 History of Present illness Narrative [facility] Date: February 13, 2024 - 9:43 AM Chief Complaint: back and leg pain SUBJECTIVE: Mr. Chahal presents to the [facility] for a follow up appointment [...] Coronary atherosclerosis of unspecified type of vessel, [place] or graft 01/22/2006 moderate Diverticulosis of colon [...] Low HDL. Lumbago 08/26/2008 Dr. Odin Coon, [facility]. Rotator cuff tear, right 10/21/2012 Salmonella [...] MEDIAL&LAT COMPARTMENTS Left 10/01/2017 revision L TKA, [facility] CC ABLATION SVT 04/06/2017 EP study, [...] Panel: No results found for: UQCANN, UQBNZL, BZQ9PAP, UQAMPH, UQMAMP, UQBUPRE, UQNORBUP, UQMTHD, UQEDDP, UQTRAM, [...] record for those providers who practice within [facility] or with access to Inventalator via MD Connect, or via letter. 1. [...] your PCP/referring physician. documented in this encounter [facility] 02-07-2024 Instructions Juan Torres - 02/07/2024 8:24 AM EDT Your wounds appear to be healing nicely Continue with soaking and local wound care until the entire toe heals You have small scabs that may fall off. If they do, dress with topical antibiotic documented in this encounter [facility] 02-07-2024 History of Present illness Narrative FOLLOW [...] (H) 4.3 - 5.6 % Final Comment: [place] Diabetes [employer] guidelines indicate that patients with [...] Coronary atherosclerosis of unspecified type of vessel, [place] or graft 01/22/2006 moderate Diverticulosis of colon [...] Low HDL. Lumbago 08/26/2008 Dr. Odin Coon, [facility]. Rotator cuff tear, right 10/21/2012 Salmonella [...] MEDIAL&LAT COMPARTMENTS Left 10/01/2017 revision L TKA, [facility] CC ABLATION SVT 04/06/2017 EP study, [...] toe done 01/24/24 documented in this encounter [facility] 02-04-2024 Miscellaneous Notes Phone call placed to [facility] advised patient needs mask supplies. Domenico Ambrsoio will reach out to the patient. Dede Baxter LPN documented in this encounter [facility] 02-04-2024 History of Present illness Narrative Patient presents for EKG per Dr Sakshi Nunez. Denies any problems at this time. Tolerated procedure well. Sussy Ng LPN documented in this encounter [facility] 01-30-2024 History of Present illness Narrative ACM [...] Lety Seth RN documented in this encounter [facility] 01-18-2024 Miscellaneous Notes Per secure staff message: Wondering if he might benefit from lumbar spine injections as pain getting worse. You previously saw for cervical spine injections bu never worked on the lumbar spine. Thank you. Routing to clerical pool for appointment scheduling. Appointment: Lumbar Pain w/Dr. Bowling documented in this encounter [facility] 01-18-2024 Miscellaneous Notes Faxed Rx mask, tubing to [facility] 01/18/2024 to [phone]. Dede Baxter LPN documented in this encounter [facility] 01-18-2024 History of Present illness Narrative ESTABLISHED [...] Coronary atherosclerosis of unspecified type of vessel, [place] or graft 01/22/2006 moderate Diverticulosis of colon [...] Low HDL. Lumbago 08/26/2008 Dr. Odin Coon, [facility]. Rotator cuff tear, right 10/21/2012 Salmonella [...] which included preparing to see the patient, vagv-jp-mlti patient care, completing clinical documentation, obtaining and/or reviewing separately obtained history, performing a medically appropriate examination, counseling and educating the patient/family/caregiver, independently interpreting results (not separately reported), and communicating results to the patient/family/caregiver. documented in this encounter [facility] 01-03-2024 Miscellaneous Notes Patient notified, verbalized understanding. Griselda Stark LPN Attempted to reach pt by phone and line is busy. Try later. Georgina Baxter LPN ----- Message from Galindo Yuan MD sent at 01/02/2024 10:56 PM EST ----- Test results are okay. Diabetes, lipids controlled. Continue diet, and medications. documented in this encounter [facility] 01-03-2024 Miscellaneous Notes Patient has been identified [...] you. Candi Greenberg. documented in this encounter [facility] 12-25-2023 History of Present illness Narrative Last [...] Holli Johnson LPN documented in this encounter [facility] 12-25-2023 Instructions Juan Torres - 12/25/2023 9:11 [...] (or decreased sensation in your feet) a slubber operator should always cut your toenails. Be Careful [...] Go to your health care provider or slubber operator to treat these conditions. documented in this encounter [facility] 10-12-2023 Nurse Note Administered 3 L/Min of oxygen pre-EMS arrival by Cheo Rousseau CNP. Stephanie Arce MA documented in this encounter [facility] 10-12-2023 History of Present illness Narrative Subjective [...] Coronary atherosclerosis of unspecified type of vessel, [place] or graft 01/22/2006 moderate Diverticulosis of colon [...] Low HDL. Lumbago 08/26/2008 Dr. Odin Coon, [facility]. Rotator cuff tear, right 10/21/2012 Salmonella [...] MEDIAL&LAT COMPARTMENTS Left 10/01/2017 revision L TKA, [facility] CC ABLATION SVT 04/06/2017 EP study, [...] This occurred while in room. 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 Next appt with pcp 12/20/23. Patient has been identified by name and date of : Yes Requested Prescriptions Pending Prescriptions Disp Refills apixaban (ELIQUIS) 5 mg tab(s) 180 tablet 3 Sig: Take 1 tablet by mouth two times a day. RX INSTRUCTIONS: Patient aware RX will be sent to pharmacy. No need to notify patient. Lorna Greenberg documented in this encounter [facility] 09-14-2023 Miscellaneous Notes CRISTIN: 07/09/2023 Last refill: [...] Alia Baxter Pss documented in this encounter [facility] 07-19-2023 History of Present illness Narrative Images from the original note were not included. [facility] [place] Justin Gruber Department of Cardiovascular Medicine SECTION OF CARDIAC PACING and ELECTROPHYSIOLOGY OUTPATIENT VISIT DATE December 21, 2022 OUTPATIENT VISIT TYPE ESTABLISHED PRIMARY CARE PHYSICIAN: Galindo Yuan MD [address] [place] [address] CHIEF COMPLAINT: Previously persistent, drug refractory atrial [...] Coronary atherosclerosis of unspecified type of vessel, [place] or graft 01/22/2006 moderate Diverticulosis of colon [...] Low HDL. Lumbago 08/26/2008 Dr. Odin Coon, [facility]. Rotator cuff tear, right 10/21/2012 Salmonella [...] MEDIAL&LAT COMPARTMENTS Left 10/01/2017 revision L TKA, [facility] CC ABLATION SVT 04/06/2017 EP study, [...] with [facility] team documented in this encounter [facility] 07-19-2023 Instructions Sakshi Sanz MD - 07/19/2023 1:02 PM EDT Reduce amlodipine 2.5 mg daily IF BP >140/90 then resume 5 mg daily documented in this encounter [facility] 07-13-2023 History of Present illness Narrative ESTABLISHED [...] of cervicalgia (seeing Dr. Malena Bowling in [place]). Parasomnias stable. BP sittin/65; pulse 73 BP [...] right mid ear, shave biopsy. Dr. Tee Cleomns, Dermatology Basal cell carcinoma (BCC) of skin of face Mohs 04/2021 Coronary atherosclerosis of unspecified type of vessel, [place] or graft 01/22/2006 moderate Diverticulosis of colon [...] Low HDL. Lumbago 08/26/2008 Dr. Odin Coon, [facility]. Rotator cuff tear, right 10/21/2012 Salmonella [...] which included preparing to see the patient, pwso-xi-gefv patient care, completing clinical documentation, obtaining and/or reviewing separately obtained history, performing a medically appropriate examination, counseling and educating the patient/family/caregiver, communicating with other HCPs (not separately reported), independently interpreting results (not separately reported), and communicating results to the patient/family/caregiver. documented in this encounter [facility] 07-09-2023 Ana Mead APRN.SOLAR SALES ASSOCIATE - 07/09/2023 8:21 AM EDT Screening schedule [...] review all the medicines you take, even uxxp-nzf-ulunmct medicines. As you get older, the way [...] certain medical conditions. documented in this encounter [facility] 07-09-2023 History of Present illness Narrative Jg Chahal is a 82 year old male here for a Medicare wellness visit. Health Risk Assessment In general, health is: Good Concerns with balance:occasional due to positional lightheadedness Concerns with teeth or dentures:Not at all Concerns with sexual function:prefers not to answer [place] anxious, stressed, angry, irritable, lonely, isolated, or [...] Sakshi Sanz MD as Primary Staff Physician (Cardiology-baker bread) Podiatry- [place] [facility]- [facility] Outside specialists seen: [facility] Medical/Family history review Reviewed and updated problem [...] - Depression screening documented in this encounter [facility] 07-02-2023 Miscellaneous Notes Pt notified. Amberly Rosales [...] Please advise patient. documented in this encounter [facility] 06-28-2023 History of Present illness Narrative This note was created using Enigmediater. Subjective Jg Chahal is a 82 year old male. He was in the [facility] ED for chest pain and palpitations. His [...] of Multiple Sites Coronary Artery Disease of [place] Artery of [place] Heart With Stable Angina Pectoris (Hcc) Personal [...] and Plan 1. Coronary artery disease of [place] artery of [place] heart with stable angina pectoris (HCC) - [...] Galindo Yuan MD documented in this encounter [facility] 06-28-2023 History of Past i llness Narrative [...] a LHC showed stable CAD. Enzymes at [place] negative. Repeat enzymes pending. Plan - Cycle ECG/Enzymes-Negativef for [place] - Aspirin/Clopidogrel/BB/Statin/ARB -Stress echo negative for ischemia, [...] of this encounter (statuses as of 12/25/2023) [facility] History of Past illness Narrative* Problem Noted [...] cell carcinoma 02/23/2015 018 Overview: Dr. Macias, [facility] Dermatology Other seborrheic keratosis 02/17/2015 1 01/07/2018 [...] enzymes pending. Plan - Cycle ECG/Enzymes-Negativef for [place] - Aspirin/Clopidogrel/BB/Statin/ARB -Stress echo negative for ischemia, [...] of this encounter (statuses as of 01/03/2024) [facility] History of Past illness Narrative* Problem Noted [...] cell carcinoma 02/23/2015 018 Overview: Dr. Macias, [facility] Dermatology Other seborrheic keratosis 02/17/2015 1 01/07/2018 [...] enzymes pending. Plan - Cycle ECG/Enzymes-Negativef for [place] - Aspirin/Clopidogrel/BB/Statin/ARB -Stress echo negative for ischemia, [...] of this encounter (statuses as of 01/04/2024) [facility] History of Past illness Narrative* Problem Noted [...] cell carcinoma 02/23/2015 018 Overview: Dr. Macias, [facility] Dermatology Other seborrheic keratosis 02/17/2015 1 01/07/2018 [...] a LHC showed stable CAD. Enzymes at [place] negative. Repeat enzymes pending. Plan - Cycle ECG/Enzymes-Negativef for [place] - Aspirin/Clopidogrel/BB/Statin/ARB -Stress echo negative for ischemia, [...] of this encounter (statuses as of 01/18/2024) [facility] History of Past illness Narrative* Problem Noted [...] cell carcinoma 02/23/2015 018 Overview: Dr. Macias, [facility] Dermatology Other seborrheic keratosis 02/17/2015 1 01/07/2018 [...] enzymes pending. Plan - Cycle ECG/Enzymes-Negativef for [place] - Aspirin/Clopidogrel/BB/Statin/ARB -Stress echo negative for ischemia, [...] of this encounter (statuses as of 01/18/2024) [facility] History of Past illness Narrative* Problem Noted [...] cell carcinoma 02/23/2015 018 Overview: Dr. Macias, [facility] Dermatology Other seborrheic keratosis 02/17/2015 1 01/07/2018 [...] a LHC showed stable CAD. Enzymes at [place] negative. Repeat enzymes pending. Plan - Cycle ECG/Enzymes-Negativef for [place] - Aspirin/Clopidogrel/BB/Statin/ARB -Stress echo negative for ischemia, [...] of this encounter (statuses as of 01/18/2024) [facility] History of Past illness Narrative* Problem Noted [...] cell carcinoma 02/23/2015 018 Overview: Dr. Macias, [facility] Dermatology Other seborrheic keratosis 02/17/2015 1 01/07/2018 [...] a LHC showed stable CAD. Enzymes at [place] negative. Repeat enzymes pending. Plan - Cycle ECG/Enzymes-Negativef for [place] - Aspirin/Clopidogrel/BB/Statin/ARB -Stress echo negative for ischemia, [...] of this encounter (statuses as of 01/30/2024) [facility] [facility]08-10-2023 History of Past illness Narrative* Problem Noted [...] a LHC showed stable CAD. Enzymes at [place] negative. Repeat enzymes pending. Plan - Cycle ECG/Enzymes-Negativef for [place] - Aspirin/Clopidogrel/BB/Statin/ARB -Stress echo negative for ischemia, [...] of this encounter (statuses as of 02/04/2024) [facility]08-10-2023 History of Past illness Narrative* Problem Noted [...] cell carcinoma 02/23/2015 018 Overview: Dr. Macias, [facility] Dermatology Other seborrheic keratosis 02/17/2015 1 01/07/2018 [...] enzymes pending. Plan - Cycle ECG/Enzymes-Negativef for [place] - Aspirin/Clopidogrel/BB/Statin/ARB -Stress echo negative for ischemia, [...] of this encounter (statuses as of 02/04/2024) [facility]08-10-2023 History of Past illness Narrative* Problem Noted [...] cell carcinoma 02/23/2015 018 Overview: Dr. Macias, [facility] Dermatology Other seborrheic keratosis 02/17/2015 1 01/07/2018 [...] enzymes pending. Plan - Cycle ECG/Enzymes-Negativef for [place] - Aspirin/Clopidogrel/BB/Statin/ARB -Stress echo negative for ischemia, [...] of this encounter (statuses as of 02/07/2024) [facility]08-10-20[facility] History of Past illness Narrative* Problem Noted [...] cell carcinoma 02/23/2015 018 Overview: Dr. Macias, [facility] Dermatology Other seborrheic keratosis 02/17/2015 1 01/07/2018 [...] a LHC showed stable CAD. Enzymes at [place] negative. Repeat enzymes pending. Plan - Cycle ECG/Enzymes-Negativef for [place] - Aspirin/Clopidogrel/BB/Statin/ARB -Stress echo negative for ischemia, [...] of this encounter (statuses as of 02/14/2024) [facility]08-10-2023 History of Past illness Narrative* Problem Noted [...] cell carcinoma 02/23/2015 018 Overview: Dr. Macias, [facility] Dermatology Other seborrheic keratosis 02/17/2015 1 01/07/2018 [...] a LHC showed stable CAD. Enzymes at [place] negative. Repeat enzymes pending. Plan - Cycle ECG/Enzymes-Negativef for [place] - Aspirin/Clopidogrel/BB/Statin/ARB -Stress echo negative for ischemia, [...] of this encounter (statuses as of 02/20/2024) [facility]08-10-20[facility] History of Past illness Narrative* Problem Noted [...] cell carcinoma 02/23/2015 018 Overview: Dr. Macias, [facility] Dermatology Other seborrheic keratosis 02/17/2015 1 01/07/2018 [...] a LHC showed stable CAD. Enzymes at [place] negative. Repeat enzymes pending. Plan - Cycle ECG/Enzymes-Negativef for [place] - Aspirin/Clopidogrel/BB/Statin/ARB -Stress echo negative for ischemia, [...] of this encounter (statuses as of 02/20/2024) [facility]08-10-[facility] History of Past illness Narrative* Problem Noted [...] cell carcinoma 02/23/2015 018 Overview: Dr. Macias, [facility] Dermatology Other seborrheic keratosis 02/17/2015 1 01/07/2018 [...] a LHC showed stable CAD. Enzymes at [place] negative. Repeat enzymes pending. Plan - Cycle ECG/Enzymes-Negativef for [place] - Aspirin/Clopidogrel/BB/Statin/ARB -Stress echo negative for ischemia, [...] of this encounter (statuses as of 02/21/2024) [facility]08-10-20[facility] History of Past illness Narrative* Problem Noted [...] cell carcinoma 02/23/2015 018 Overview: Dr. Macias, [facility] Dermatology Other seborrheic keratosis 02/17/2015 1 01/07/2018 [...] a LHC showed stable CAD. Enzymes at [place] negative. Repeat enzymes pending. Plan - Cycle ECG/Enzymes-Negativef for [place] - Aspirin/Clopidogrel/BB/Statin/ARB -Stress echo negative for ischemia, [...] of this encounter (statuses as of 02/22/2024) [facility]08-10-2023 History of Past illness Narrative* Problem Noted [...] cell carcinoma 02/23/2015 018 Overview: Dr. Macias, [facility] Dermatology Other seborrheic keratosis 02/17/2015 1 01/07/2018 [...] enzymes pending. Plan - Cycle ECG/Enzymes-Negativef for [place] - Aspirin/Clopidogrel/BB/Statin/ARB -Stress echo negative for ischemia, [...] of this encounter (statuses as of 02/25/2024) [facility]08-10-2023 History of Past illness Narrative* Problem Noted [...] cell carcinoma 02/23/2015 018 Overview: Dr. Macias, [facility] Dermatology Other seborrheic keratosis 02/17/2015 1 01/07/2018 [...] enzymes pending. Plan - Cycle ECG/Enzymes-Negativef for [place] - Aspirin/Clopidogrel/BB/Statin/ARB -Stress echo negative for ischemia, [...] of this encounter (statuses as of 02/25/2024) [facility]08-10-[facility] History of Past illness Narrative* Problem Noted [...] cell carcinoma 02/23/2015 018 Overview: Dr. Macias, [facility] Dermatology Other seborrheic keratosis 02/17/2015 1 01/07/2018 [...] enzymes pending. Plan - Cycle ECG/Enzymes-Negativef for [place] - Aspirin/Clopidogrel/BB/Statin/ARB -Stress echo negative for ischemia, [...] of this encounter (statuses as of 02/28/2024) [facility]08-06-2023 Discharge summary Author Koffi Rome [facility] June 24, 2023 11:10am Note Date/Time June 24, 2023 9:0 9am [facility] Medical Records Department [address] [place] [address] Emergency Department Summary 06/24/23 MR#: [id number] Acct: [id number] Name: JG CHAHAL Rep #:[id number] : 1940 82 From: Koffi Rome [...] of stress recently because he found his ltbllhl-ud-oti and has been having nightmares and its been upsetting him and he is wondering if maybe has anxiety over this. I recommended that he follow-up with his black top roller initially due to his medications that he [...] % (Auto) 69.3 Lymph % (Auto) 21.2 Erath % (Auto) 6.7 Eos % (Auto) 1.6 [...] your Primary Care Provider. Call [facility] ([phone]) or report to the closest Emergency Room. Call 911 if necessary. 06/24/23 1110 <Electronically signed by Koffi Rome DO> Cosigner Signature (if applicable): CC: Dr. Galindo Yuan MD ~ Signed [facility] Work Phone: 1(604) 717-595406-23-2023 History of Present illness Narrative* Juan Torres - 05/11/2023 1:57 PM EDT Last saw [...] Objective: Patient presents to clinic ambulating in [facility] Vasc: DP and PT pulses [...] Pain Holli Johnson LPN documented in this encounterUniversity Hospitals [facility]06-23-2023 Instructions* Patient Instructions* Juan Torres - 05/11/2023 [...] (or decreased sensation in your feet) a slubber operator should always cut your toenails. Be Careful [...] Go to your health care provider or slubber operator to treat these conditions. documented in this encounterUniversity Hospitals [facility]05-24-2023 Instructions* Patient Instructions* Desirae Salas RN - [...] to manage their pain after surgery with Zcdg-hqp-Posbewy (OTC) medications such as Tylenol (acetaminophen) and [...] How will I alternate my regular strength jqzw-kjg-kquptvf pain medication? You will take a dose [...] We recommend that you follow this schedule qtjawc-urp-bppns for at least 3 days after surgery, [...] 72 hours following surgery Return to referring mining teacher for skin checks every 6 months Wear sunscreen PHONE NUMBERS: Chary contact number: [phone] and ask to be transferred to Dermatology (Sunday-Sunday, 8am-5pm) For emergencies only: On-call number: [phone] and ask for the automation tech dermatology surgery fellow documented in this encounterUniversity Hospitals [facility]05-24-2023 History of Present illness Narrative* Sakshi Rodriguez MD - 04/11/2023 10:44 AM EDT MOHS MICROGRAPHIC OPERATIVE REPORT SERVICE DATE: 04/11/2023 SERVICE TIME: 1300 LOCATION: [facility] [address] [place], [place] [address] REFERRING PROVIDER: Ruth Perla [address] [place] [id number] PROCEDURE START TIME: 1:21 PM PROCEDURE END TIME: 1601 SURGEON: Dr. Sakshi Rodriguez FELLOW: Dr. Jg Bangura PHYSICIAN SUPERVISOR BEEHIVE KILN: Kerri Dockery LICENSED PRACTICAL NURSE: Romulo Yoder [...] Available at Bedside: Inside pathology report # [id number] Pre-op Size: 0.6 cm - 1 cm, [...] WITH VERBAL UNDERSTANDING: Yes PATIENT DISCHARGED TO BAG SEALER/NAME: spouse Kerri. FOLLOW UP: Return for wound [...] operative note independently gathered by the clinical learning support assistant and the remaining scribed note accurately describes my personal service to the patient. I/primary surgeon/proceduralist reviewed the specimen(s) and worked as the pathologist. Sakshi Cheng MD April 18, 2023 documented in this encounterUniversity Hospitals [facility]04-28-2023 Miscellaneous Notes* Telephone Encounter - Swati Roberto [...] Roberto RN Schedule with: First Available Location: [place] *Photos in Get Images; no photos in [...] carcinoma, nodular type- Mohs documented in this encounterUniversity Hospitals [facility]04-26-2023 Instructions* Patient Instructions* Brenda London Ma - 03/14/2023 3:56 PM EDT Images from the original note were not included. Department of Dermatology [address] [place], [place] [id number] SKIN CARE AFTER CRYOSURGERY Post - Operative [...] within 3 to 4 weeks. Please call [phone] to speak to one of the dermatology nurses if you have any questions. Department of Dermatology [address] [place], [place] [id number] CARE FOR YOUR SHAVE BIOPSY SITE Please [...] are healing, please send your provider a Sookbox message or call [phone] and ask for a dermatology nurse. documented in this encounterUniversity Hospitals [facility]04-26-2023 History of Present illness Narrative* Ruth Perla DO - 03/14/2023 3:36 PM EDT Established Patient Visit Last Visit Date: 07/12/2022 with Linden Ilgesias PA-C CC: skin lesions HPI: 82 year [...] abnormality, including cancer. In accordance with the [facility] policy, pre-procedure time out was performed to [...] Past Histories independently gathered by the clinical learning support assistant and the remaining scribed note accurately describes my personal service to the patient. Ruth Perla DO documented in this encounterUniversity Hospitals [facility]04-06-2023 History of Present illness Narrative* Ancelmo Madrigal PT - 02/22/2023 10:41 AM EDT Episode Visit Count: 3 Therapist That Will Accept/Oversee The Plan Of Care: Ancelmo aMdrigal PT Start of Care Date: 02/14/23 Onset Date: 02/14/22 Plan of Care Certification Date: 02/14/23 Next Certification Due Date: 03/28/23 Patient Identified by Name and Date of : Yes RE[facility]ABIL[facility] SPORTS THERAPY PHYSICAL THERAPY TREATMENT NOTE ASSESSMENT: Jg Cahhal tolerated the session with no issues. He [...] 40 Ancelmo Madrigal PT documented in this encounterUniversity Hospitals [facility]04-04-2023 History of Present illness Narrative* Ancelmo Madrigal [...] Treatment Time Minutes (timed/untimed): 38 Sheryl Mancia, SENIOR RESEARCH CONSULTANT Ancelmo Madrigal PT documented in this encounterUniversity Hospitals [facility]03-30-2023 Miscellaneous Notes* Telephone Encounter - Mariella Kimball Ma - 02/15/2023 3:34 PM EDT Order for TENS unit, CMN form, demographics, and today's OV note has been faxed to [facility]. Fax confirmation received. documented in this encounterUniversity Hospitals [facility] Center03-27-2023 History of Present illness Narrative* Renan Bowling MD - 02/12/2023 9:02 AM EDT [facility] Date: February 12, 2023 - 9:02 AM Chief Complaint: Neck pain SUBJECTIVE: Mr. Chahal presents to the [facility] for a follow up appointment [...] He is currently receiving medications through the [facility]. He is having difficulty with [...] Coronary atherosclerosis of unspecified type of vessel, t[place]ks[place] or graft 01/22/2006 moderate Diverticulosis of colon [...] Low HDL. Lumbago 08/26/2008 Dr. Odin Coon, [facility]. Rotator cuff tear, right 10/21/2012 Salmonella [...] MEDIAL&LAT COMPARTMENTS Left 10/01/2017 revision L TKA, [facility] CC ABLATION SVT 04/06/2017 EP study, [...] Panel: No results found for: UQCANN, UQBNZL, GRW8AVU, UQAMPH, UQMAMP, UQBUPRE, UQNORBUP, UQMTHD, UQEDDP, UQTRAM, [...] record for those providers who practice within [facility] or with access to Inventalator via MD Connect, or via letter. 1. [...] of your PCP/referring physician. documented in this encounterUniversity Hospitals [facility] Center03-11-2023 Hospital Discharge instructions Additional Instructions Suspect you [...] worsening if you develop further symptoms/further concerns.[facility] Work Phone: [phone]) 416-834802-28-2023 Miscellaneous Notes* Telephone Encounter - Lacy Figueroa RN - 01/16/2023 2:08 PM EST Sookbox message sent at this time * Telephone Encounter - Lacy Figueroa RN - 01/16/2023 2:06 PM EST This RN attempted to contact patient X3 at this time Phone line was busy Will send update via [employer] message since unable to get through via [...] patient and advise. TY documented in this encounterUniversity Hospitals [facility] Center02-17-2023 Miscellaneous Notes* Telephone Encounter - Sonia Us LPN - 01/05/2023 2:32 PM EST I spoke to and informed him of Cami's response to lab results. Patient voiced understanding. Sonia Us LPN * Telephone Encounter - Sonia Us LPN - 01/05/2023 2:31 PM EST ----- Message from Cami Renner APRN.SOLAR SALES ASSOCIATE sent at 01/05/2023 2:19 PM EST ----- Please call the patient and report lab results revealed CBC normal and BMP stable. Thanks, Cami Renner APRN.SOLAR SALES ASSOCIATE documented in this encounterUniversity Hospitals [facility] Center02-17-2023 Instructions* Patient Instructions* Rasha[facility] Jr., MD - 01/05/2023 9:53 AM EST Your most recent body mass index (BMI) that we have on record is 34.43 kg/m2. Obstructive sleep apnea (ETHAN) worsens with an increase in weight; reduction in weight may improve or resolve your ETHAN. Ifyou are not already seeking treatment, there are resources available at the [facility] such as a nutrition consultation or referral to weight management programs at our [facility] [place]. Please let us know if we can assist with a referral. documented in this encounterUniversity Hospitals [facility] Center02-17-2023 History of Present illness Narrative* Rashaun [facility] [...] with known history of afib. Records from [facility] not available for review except for CT [...] Coronary atherosclerosis of unspecified type of vessel, t[place] or graft 01/22/2006 moderate Diverticulosis of colon [...] Low HDL. Lumbago 08/26/2008 Dr. Odin Coon, [facility]. Rotator cuff tear, right 10/21/2012 Salmonella [...] which included preparing to see the patient, vqtc-rv-khac patient care, completing clinical documentation, obtaining and/or reviewing separately obtained history, performing a medically appropriate examination, counseling and educating the pat ient/family/caregiver, independently interpreting results (not separately reported), and communicating results to the patient/family/caregiver. documented in this encounterUniversity Hospitals [facility]02-09-2023 Miscellaneous Notes* Telephone Encounter - Consuelo Barnes [...] for abdominal aortic aneurysm. documented in this encounterUniversity Hospitals [facility] Center02-07-2023 History of Present illness Narrative* Anurag Bah [...] proceed with the procedure. documented in this encounterUniversity Hospitals [facility] Center02-03-2023 History of Present illness Narrative* Sonia Carbajal [...] 22, 2022 10:06 AM documented in this encounterUniversity Hospitals [facility] Center02-03-2023 Miscellaneous Notes* Result Encounter Note - Galindo Yuan MD - 12/22/2022 10:00 AM EST Test results are okay and negative for abdominal aortic aneurysm. documented in this [facility]02-02-2023 Miscellaneous Notes* Telephone Encounter - Renetta [...] sets of directions. Needs clarification. Can call [phone]. Patient last appointment: 09/27/2022 The patients preferred pharmacy has been captured for this encounter? Keisha Melendez documented in this encounterUniversity Hospitals [facility] Center02-01-2023 Instructions* Patient Instructions* Galindo Yuan MD - 12/20/2022 9:55 AM EST AVOID GAS FORMING FOODS AND DRINK 1 DAY BEFORE YOUR ABDOMINAL ULTRASOUND. documented in this encounterUniversity Hospitals [facility] Center02-01-2023 History of Present illness Narrative* Galindo Yuan MD - 12/20/2022 9:33 AM EST This note was created using [employer]. Subjective Jg Chahal is a 82 year old male. He was mainly dealing with cervicalgia and just had injections yesterday. This may be accounting for his elevated blood pressure today. We reviewed his test results and diabetes mellitus and lipids were well controlled. He will see his black top roller tomorrow. He had an incomplete AAA screening [...] vaccine - ICD9: V04.89, ICD10: Z23 - [place] COVID-19 BIVALENT BOOSTER VACCINE, AGE 12+ YR 6. Screening for AAA (abdominal aortic aneurysm) - ICD9: V81.2, ICD10: Z13.6 See printed instructions or information. - SCREENING FOR AAA Galindo Yuan MD documented in this encounterUniversity Hospitals [facility] Center01-16-2023 Miscellaneous Notes* Telephone Encounter - Nelson Mitchell [...] notify patient. Chelsey Casillas documented in this encounterUniversity Hospitals [facility] Medical Center12-29-2022 Miscellaneous Notes* Telephone Encounter - Hope Guaman [...] Thank you. Hope Guaman documented in this encounterUniversity Hospitals [facility] Center12-19-2022 Miscellaneous Notes* Telephone Encounter - Griselda Stark [...] patient. Lorna Worrell Pss documented in this encounterUniversity Hospitals [facility] Center11-09-2022 Miscellaneous Notes* Addendum Note - Ana Edwards [...] and advise. May Greenberg documented in this encounterUniversity Hospitals [facility] Medical Center11-07-2022 History of Present illness Narrative* Renan Bowling MD - 09/25/2022 9:36 AM EST [facility] Date: September 25, 2022 - 9:37 AM Chief Complaint: neck pain SUBJECTIVE: Mr. Chahal presents to the [facility] for a follow up appointment regarding [...] is not currently receiving medications through the [facility]. REVIEW OF SYSTEMS: Constitutional: (-) Fever [...] Coronary atherosclerosis of unspecified type of vessel, t[place]ks[place] or graft 01/22/2006 moderate Diverticulosis of colon [...] Low HDL. Lumbago 08/26/2008 Dr. Odin Coon, [facility]. Rotator cuff tear, right 10/21/2012 Salmonella [...] MEDIAL&LAT COMPARTMENTS Left 10/01/2017 revision L TKA, [facility] CC ABLATION SVT 04/06/2017 EP study, [...] Panel: No results found for: UQCANN, UQBNZL, JKO4XYN, UQAMPH, UQMAMP, UQBUPRE, UQNORBUP, UQMTHD, UQEDDP, UQTRAM, [...] Dr. Galindo Yuan MD cc: Rashaun [facility] [address] [facility] [address] [facility] [id number] Results of consultation to be transmitted via electronic medical record for those providers who practice within [facility] or with access to Inventalator via MD Connect, or via letter. documented in this encounterUniversity Hospitals [facility] Medical Center10-18-2022 Miscellaneous Notes* Telephone Encounter - ELIE Giles - 09/05/2022 10:18 AM EDT Order for new PAP machine faxed to [facility] with required documentation. ELIE Giles documented in this encounterUniversity Hospitals [facility] Center10-18-2022 Miscellaneous Notes* Telephone Encounter - Shantanu Munoz RN - 09/05/2022 9:11 AM EDT Patient asking Dr. [facility] to please order MRI (shoulders, veins in neck, and head). Asking office tophone him to schedule once order is in place. documented in this encounterUniversity Hospitals [facility] Medical Center10-17-2022 History of Present illness Narrative* Rashaun [facility] [...] and told to follow up with his instructional systems specialist (scheduled). had great burning in his [...] per pt) and was referred to [facility]. Pt willing to see spine and pain in [place]. States CPAP has a lot of age [...] Coronary atherosclerosis of unspecified type of vessel, t[place]ks[place] or graft 01/22/2006 moderate Diverticulosis of colon [...] Low HDL. Lumbago 08/26/2008 Dr. Odin Coon, [facility]. Rotator cuff tear, right 10/21/2012 Salmonella [...] with known history of afib. Records from [facility] not available for review except for CT [...] which included preparing to see the patient, vkrx-al-rdba patient care, completing clinical documentation, obtaining and/or reviewing separately obtained history, performing a medically appropriate examination, counseling and educating the pat ient/family/caregiver, ordering medications, tests, or procedures, and communicating results to thepatient/family/caregiver. documented in this encounterUniversity Hospitals [facility] Center10-03-2022 History of Present illness Narrative* Juan Torres [...] Up Holli Johnson LPN documented in this encounterUniversity Hospitals [facility] Center10-03-2022 Instructions* Patient Instructions* Juan Torres - 08/21/2022 [...] (or decreased sensation in your feet) a slubber operator should always cut your toenails. Be Careful [...] Go to your health care provider or slubber operator to treat these conditions. documented in this encounterUniversity Hospitals [facility] Center08-24-2022 Instructions* Patient Instructions* Linden Iglesias PA-C - 07/12/2022 11:24 AM EDT [facility] Liquid Nitrogen Therapy Care Instructions [...] do not go away documented in this encounterUniversity Hospitals [facility] Center08-24-2022 History of Present illness Narrative* Linden Iglesias [...] upper extremities. Alexandra Skin Type: II IMPRESSION: [place] scaly papule right ear inferior helix x1, [...] Past Histories independently gathered by the clinical learning support assistant, Mima Couch RN, and the remaining scribed note accurately describes my personal service to the patient. July 12, 2022 12:19 PM This note was partially generated using Ridemakerz voice recognition system. Linden Iglesias PA-C documented in this encounterUniversity Hospitals [facility] Center08-02-2022 History of Present illness Narrative* Faby Georges APRN.SOLAR SALES ASSOCIATE - 06/20/2022 10:57 AM EDT Images from the original note were not included. [facility] [place] Justin Gruber Department of Cardiovascular Medicine SECTION OF CARDIAC PACING and ELECTROPHYSIOLOGY OUTPATIENT VISIT DATE June 20, 2022 OUTPATIENT VISIT TYPE ESTABLISHED PRIMARY CARE PHYSICIAN: Galindo Yuan [address] [place] [address] CHIEF COMPLAINT: follow up antiarrhythmic drug monitoring [...] visit he had left shoulder surgery (non [facility] ortho), just finished physical therapy, given instructions [...] Coronary atherosclerosis of unspecified type of vessel, t[place]ks[place] or graft 01/22/2006 moderate Diverticulosis of colon [...] Low HDL. Lumbago 08/26/2008 Dr. Odin Coon, [facility]. 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 normotensive, NSR QTc normal range, no [...] with more than 50% of the total vxrv-ye-zeuv time of the visit in counseling / coordination of care. CONTACT INFORMATION: Faby Georges APRN.LOWELL, 06/20/22 [facility] [place] [facility] [address] Floor [place], [place] [id number] documented in this encounterUniversity Hospitals Beachwood [facility] Center08-01-2022 Miscellaneous Notes* Telephone Encounter - Cleopatra Baez RN - 06/19/2022 1:32 PM EDT [facility] calling with request for new script for blood glucose meter that includestesting directions. Test blood sugar one time daily added to script and pended. Cleopatra Baez RN documented in this encounterUniversity Hospitals Beachwood [facility] Center06-28-2022 Miscellaneous Notes* Telephone Encounter - Stephanie Arce MA - 05/16/2022 1:40 PM EDT Patient active MyChart. Patient notified via Kinetic message. Stephanie Arce MA * Telephone Encounter - Stephanie Arce MA - 05/16/2022 1:39 PM EDT ----- Message from Rashaun [facility] Jr., MD sent at 05/16/2022 10:09 AM EDT ----- MRI C spine report reviewed. No significant canal stenosis. If still having neck pain recommend referral to Spine for other therapy options. Rashaun Manning MD documented in this encounterUniversity Hospitals Beach[facility] Center06-27-2022 History of Present illness Narrative* Kelli Blackmon [...] 15, 2022 10:56 AM documented in this encounterUniversity Hospitals Beachwood [facility] Center06-14-2022 Instructions* Patient Instructions* Juan Torres - 05/02/2022 [...] (or decreased sensation in your feet) a slubber operator should always cut your toenails. Be Careful [...] Go to your health care provider or slubber operator to treat these conditions. documented in this encounterUniversity Hospitals Beachwood [facility] Center06-14-2022 History of Present illness Narrative* Juan Torres [...] months. Juan Torres DPM documented in this encounterUniversity Hospitals Beachwood [facility] Center06-13-2022 Miscellaneous Notes* Telephone Encounter - ELIE Giles - 05/01/2022 3:47 PM EDT Patient is requesting to use [employer] as his new DME company. Order and required documents faxed [phone] as requested. ELIE Giles documented in this encounterUniversity Hospitals Beachwood Medical Center06-13-2022 History of Present illness Narrative* Rashaun Manning [...] from 2016 with studies being performed at [facility] and the offices of Dr. Carvalho (titration). [...] the R side. States had surgery at [facility]. Never followed up. Only is without [...] Followed in past with [facility] in [place]. NEUROLOGIC: See HPI. SKIN:Negative for lesions, rash, [...] Coronary atherosclerosis of unspecified type of vessel, [place] or graft 01/22/2006 moderate Diverticulosis of colon [...] Low HDL. Lumbago 08/26/2008 Dr. Odin Coon, [facility]. Rotator cuff tear, right 10/21/2012 Salmonella [...] which included preparing to see the patient, [id number] patient care, completing clinical documentation, obtaining and/or reviewing separately obtained history, performing a medically appropriate examination, counseling and educating the pat ient/family/caregiver, ordering medications, tests, or procedures, independently interpreting results (not separately reported) and communicating results to the patient/family/caregiver. documented in this encounterUniversity Hospitals Beachwood [facility] Center04-29-2020 History of Past illness Narrative* Problem Noted Date Resolved Date Spinal stenosis, lumbar region with neurogenic c laudication 03/17/2020 05/12/2021 Neck pain 02/09/2020 05/12/2021 History of fusion of lumbar spine 02/04/2020 05/12/2021 History of fusion of cervical spine 02/04/2020 05/12/2021 Other persistent atrial fibrillation 09/08/2019 11/09/2020 Insomnia 08/21/2016 11/06/2018 Basal cell carcinoma 02/23/2015 11/06/2018 Overview: Dr. Macias, [facility] Dermatology Other seborrheic keratosis 02/17/201511/06 Overview: Dr. [...] a LHC showed stable CAD. Enzymes at [place] negative. Repeat enzymes pending. Plan - Cycle ECG/Enzymes-Negativef for [place] - Aspirin/Clopidogrel/BB/Statin/ARB -Stress echo negative for ischemia, [...] of this encounter (statuses as of 05/01/2022) [facility]04-29-[facility] History of Past illness Narrative* Problem Noted Date Resolved Date Spinal stenosis, lumbar region with neurogenic c laudication 03/17/2020 05/12/2021 Neck pain 02/09/2020 05/12/2021 History of fusion of lumbar spine 02/04/2020 05/12/2021 History of fusion of cervical spine 02/04/2020 05/12/2021 Other persistent atrial fibrillation 09/08/2019 11/09/2020 Insomnia 08/21/2016 11/06/2018 Basal cell carcinoma 02/23/2015 11/06/2018 Overview: Dr. Macias, [facility] Dermatology Other seborrheic keratosis 02/17/201511/06 Overview: Dr. [...] enzymes pending. Plan - Cycle ECG/Enzymes-Negativef for [place] - Aspirin/Clopidogrel/BB/Statin/ARB -Stress echo negative for ischemia, [...] of this encounter (statuses as of 05/01/2022) [facility]04[facility]29-[facility] History of Past illness Narrative* Problem Noted Date Resolved Date Spinal stenosis, lumbar region with neurogenic c laudication 03/17/2020 05/12/2021 Neck pain 02/09/2020 05/12/2021 History of fusion of lumbar spine 02/04/2020 05/12/2021 History of fusion of cervical spine 02/04/2020 05/12/2021 Other persistent atrial fibrillation 09/08/2019 11/09/2020 Insomnia 08/21/2016 11/06/2018 Basal cell carcinoma 02/23/2015 11/06/2018 Overview: Dr. Macias, [facility] Dermatology Other seborrheic keratosis 02/17/201511/06 Overview: Dr. [...] a LHC showed stable CAD. Enzymes at [place] negative. Repeat enzymes pending. Plan - Cycle ECG/Enzymes-Negativef for [place] - Aspirin/Clopidogrel/BB/Statin/ARB -Stress echo negative for ischemia, [...] of this encounter (statuses as of 05/02/2022) [facility]04[facility] History of Past illness Narrative* Problem Noted Date Resolved Date Spinal stenosis, lumbar region with neurogenic c laudication 03/17/2020 05/12/2021 Neck pain 02/09/2020 05/12/2021 History of fusion of lumbar spine 02/04/2020 05/12/2021 History of fusion of cervical spine 02/04/2020 05/12/2021 Other persistent atrial fibrillation 09/08/2019 11/09/2020 Insomnia 08/21/2016 11/06/2018 Basal cell carcinoma 02/23/2015 11/06/2018 Overview: Dr. Macias, [facility] Dermatology Other seborrheic keratosis 02/17/201511/06 Overview: Dr. [...] enzymes pending. Plan - Cycle ECG/Enzymes-Negativef for [place] - Aspirin/Clopidogrel/BB/Statin/ARB -Stress echo negative for ischemia, [...] of this encounter (statuses as of 05/16/2022) [facility]04[facility] of Past illness Narrative* Problem Noted Date Resolved Date Spinal stenosis, lumbar region with neurogenic c laudication 03/17/2020 05/12/2021 Neck pain 02/09/2020 05/12/2021 History of fusion of lumbar spine 02/04/2020 05/12/2021 History of fusion of cervical spine 02/04/2020 05/12/2021 Other persistent atrial fibrillation 09/08/2019 11/09/2020 Insomnia 08/21/2016 11/06/2018 Basal cell carcinoma 02/23/2015 11/06/2018 Overview: Dr. Macias, [facility] Dermatology Other seborrheic keratosis 02/17/201511/06 Overview: Dr. [...] 2015 negative Zack negative Plan: - Consider [facility] if symptoms get worse Hyperlipidemia 04/07/2012 02/19/2017 [...] a LHC showed stable CAD. Enzymes at [place] negative. Repeat enzymes pending. Plan - Cycle ECG/Enzymes-Negativef for [place] - Aspirin/Clopidogrel/BB/Statin/ARB -Stress echo negative for ischemia, [...] of this encounter (statuses as of 05/16/2022) [facility]04[facility] History of Past illness Narrative* Problem Noted Date Resolved Date Spinal stenosis, lumbar region with neurogenic c laudication 03/17/2020 05/12/2021 Neck pain 02/09/2020 05/12/2021 History of fusion of lumbar spine 02/04/2020 05/12/2021 History of fusion of cervical spine 02/04/2020 05/12/2021 Other persistent atrial fibrillation 09/08/2019 11/09/2020 Insomnia 08/21/2016 11/06/2018 Basal cell carcinoma 02/23/2015 11/06/2018 Overview: Dr. Macias, [facility] Dermatology Other seborrheic keratosis 02/17/201511/06 Overview: Dr. [...] enzymes pending. Plan - Cycle ECG/Enzymes-Negativef for [place] - Aspirin/Clopidogrel/BB/Statin/ARB -Stress echo negative for ischemia, [...] of this encounter (statuses as of 06/09/2022) [facility]04[facility] of Past illness Narrative* Problem Noted Date Resolved Date Spinal stenosis, lumbar region with neurogenic c laudication 03/17/2020 05/12/2021 Neck pain 02/09/2020 05/12/2021 History of fusion of lumbar spine 02/04/2020 05/12/2021 History of fusion of cervical spine 02/04/2020 05/12/2021 Other persistent atrial fibrillation 09/08/2019 11/09/2020 Insomnia 08/21/2016 11/06/2018 Basal cell carcinoma 02/23/2015 11/06/2018 Overview: Dr. Macias, [facility] Dermatology Other seborrheic keratosis 02/17/201511/06 Overview: Dr. [...] enzymes pending. Plan - Cycle ECG/Enzymes-Negativef for [place] - Aspirin/Clopidogrel/BB/Statin/ARB -Stress echo negative for ischemia, [...] ACS and he has been transferred to [facility] for further evaluation and management. Started heparin,NTG [...] of this encounter (statuses as of 06/19/2022) [facility]04[facility] of Past illness Narrative* Problem Noted Date Resolved Date Spinal stenosis, lumbar region with neurogenic c laudication 03/17/2020 05/12/2021 Neck pain 02/09/2020 05/12/2021 History of fusion of lumbar spine 02/04/2020 05/12/2021 History of fusion of cervical spine 02/04/2020 05/12/2021 Other persistent atrial fibrillation 09/08/2019 11/09/2020 Insomnia 08/21/2016 11/06/2018 Basal cell carcinoma 02/23/2015 11/06/2018 Overview: Dr. Macias, [facility] Dermatology Other seborrheic keratosis 02/17/201511/06 Overview: Dr. [...] a LHC showed stable CAD. Enzymes at [place] negative. Repeat enzymes pending. Plan - Cycle ECG/Enzymes-Negativef for [place] - Aspirin/Clopidogrel/BB/Statin/ARB -Stress echo negative for ischemia, [...] of this encounter (statuses as of 06/20/2022) [facility]04[facility] of Past illness Narrative* Problem Noted Date Resolved Date Spinal stenosis, lumbar region with neurogenic c laudication 03/17/2020 05/12/2021 Neck pain 02/09/2020 05/12/2021 History of fusion of lumbar spine 02/04/2020 05/12/2021 History of fusion of cervical spine 02/04/2020 05/12/2021 Other persistent atrial fibrillation 09/08/2019 11/09/2020 Insomnia 08/21/2016 11/06/2018 Basal cell carcinoma 02/23/2015 11/06/2018 Overview: Dr. Macias, [facility] Dermatology Other seborrheic keratosis 02/17/201511/06 Overview: Dr. [...] enzymes pending. Plan - Cycle ECG/Enzymes-Negativef for [place] - Aspirin/Clopidogrel/BB/Statin/ARB -Stress echo negative for ischemia, [...] of this encounter (statuses as of 07/12/2022) [facility] of Past illness Narrative* Problem Noted [...] a LHC showed stable CAD. Enzymes at [place] negative. Repeat enzymes pending. Plan - Cycle ECG/Enzymes-Negativef for [place] - Aspirin/Clopidogrel/BB/Statin/ARB -Stress echo negative for ischemia, [...] of this encounter (statuses as of 08/21/2022) [facility] of [facility] illness Narrative* Problem Noted Date Resolved Date Spinal stenosis, lumbar region with neurogenic c laudication 03/17/2020 05/12/2021 Neck pain 02/09/2020 05/12/2021 History of fusion of lumbar spine 02/04/2020 05/12/2021 History of fusion of cervical spine 02/04/2020 05/12/2021 Other persistent atrial fibrillation 09/08/2019 11/09/2020 Insomnia 08/21/2016 11/06/2018 Basal cell carcinoma 02/23/2015 11/06/2018 Overview: Dr. Macias, [facility] Dermatology Other seborrheic keratosis 02/17/201511/06 Overview: Dr. [...] a LHC showed stable CAD. Enzymes at [place] negative. Repeat enzymes pending. Plan - Cycle ECG/Enzymes-Negativef for [place] - Aspirin/Clopidogrel/BB/Statin/ARB -Stress echo negative for ischemia, discharge 04/09 am. -04/09/2012 Stable DC home. Follow up with Dr Joens. DC home on same meds prior to [...] a 2.5 x 16 mm Promus Element DRACI H. pylori infection 05/30/2011 09/28/2011 Overview: Continue [...] of this encounter (statuses as of 08/21/2022) [facility] of [facility] illness Narrative* Problem Noted Date Resolved Date Spinal stenosis, lumbar region with neurogenic c laudication 03/17/2020 05/12/2021 Neck pain 02/09/2020 05/12/2021 History of fusion of lumbar spine 02/04/2020 05/12/2021 History of fusion of cervical spine 02/04/2020 05/12/2021 Other persistent atrial fibrillation 09/08/2019 11/09/2020 Insomnia 08/21/2016 11/06/2018 Basal cell carcinoma 02/23/2015 11/06/2018 Overview: Dr. Macias, [facility] Dermatology Other seborrheic keratosis 02/17/201511/06 Overview: Dr. [...] 2015 negative Zack negative Plan: - Consider [facility] if symptoms get worse Hyperlipidemia 04/07/2012 02/19/2017 [...] a LHC showed stable CAD. Enzymes at [place] negative. Repeat enzymes pending. Plan - Cycle ECG/Enzymes-Negativef for [place] - Aspirin/Clopidogrel/BB/Statin/ARB -Stress echo negative for ischemia, [...] of this encounter (statuses as of 08/30/2022) [facility] Narrative* Problem Noted Date Resolved Date Spinal stenosis, lumbar region with neurogenic c laudication 03/17/2020 05/12/2021 Neck pain 02/09/2020 05/12/2021 History of fusion of lumbar spine 02/04/2020 05/12/2021 History of fusion of cervical spine 02/04/2020 05/12/2021 Other persistent atrial fibrillation 09/08/2019 11/09/2020 Insomnia 08/21/2016 11/06/2018 Basal cell carcinoma 02/23/2015 11/06/2018 Overview: Dr. Macias, [facility] Dermatology Other seborrheic keratosis 02/17/201511/06 Overview: Dr. [...] 2015 negative Zack negative Plan: - Consider [facility] if symptoms get worse Hyperlipidemia 04/07/2012 02/19/2017 [...] a LHC showed stable CAD. Enzymes at [place] negative. Repeat enzymes pending. Plan - Cycle ECG/Enzymes-Negativef for [place] - Aspirin/Clopidogrel/BB/Statin/ARB -Stress echo negative for ischemia, [...] of this encounter (statuses as of 09/04/2022) [facility] Narrative* Problem Noted Date Resolved Date Spinal stenosis, lumbar region with neurogenic c laudication 03/17/2020 05/12/2021 Neck pain 02/09/2020 05/12/2021 History of fusion of lumbar spine 02/04/2020 05/12/2021 History of fusion of cervical spine 02/04/2020 05/12/2021 Other persistent atrial fibrillation 09/08/2019 11/09/2020 Insomnia 08/21/2016 11/06/2018 Basal cell carcinoma 02/23/2015 11/06/2018 Overview: Dr. Macias, [facility] Dermatology Other seborrheic keratosis 02/17/201511/06 Overview: Dr. [...] enzymes pending. Plan - Cycle ECG/Enzymes-Negativef for [place] - Aspirin/Clopidogrel/BB/Statin/ARB -Stress echo negative for ischemia, [...] of this encounter (statuses as of 09/05/2022) [facility] Narrative* Problem Noted Date Resolved Date Spinal stenosis, lumbar region with neurogenic c laudication 03/17/2020 05/12/2021 Neck pain 02/09/2020 05/12/2021 History of fusion of lumbar spine 02/04/2020 05/12/2021 History of fusion of cervical spine 02/04/2020 05/12/2021 Other persistent atrial fibrillation 09/08/2019 11/09/2020 Insomnia 08/21/2016 11/06/2018 Basal cell carcinoma 02/23/2015 11/06/2018 Overview: Dr. Macias, [facility] Dermatology Other seborrheic keratosis 02/17/201511/06 Overview: Dr. [...] enzymes pending. Plan - Cycle ECG/Enzymes-Negativef for [place] - Aspirin/Clopidogrel/BB/Statin/ARB -Stress echo negative for ischemia, [...] ACS and he has been transferred to [facility] for further evaluation and management. Started heparin,NTG [...] of this encounter (statuses as of 09/06/2022) [facility] Narrative* Problem Noted Date Resolved Date Spinal stenosis, lumbar region with neurogenic c laudication 03/17/2020 05/12/2021 Neck pain 02/09/2020 05/12/2021 History of fusion of lumbar spine 02/04/2020 05/12/2021 History of fusion of cervical spine 02/04/2020 05/12/2021 Other persistent atrial fibrillation 09/08/2019 11/09/2020 Insomnia 08/21/2016 11/06/2018 Basal cell carcinoma 02/23/2015 11/06/2018 Overview: Dr. Macias, [facility] Dermatology Other seborrheic keratosis 02/17/201511/06 Overview: Dr. [...] enzymes pending. Plan - Cycle ECG/Enzymes-Negativef for [place] - Aspirin/Clopidogrel/BB/Statin/ARB -Stress echo negative for ischemia, [...] of this encounter (statuses as of 09/25/2022) [facility] Narrative* Problem Noted [...] a LHC showed stable CAD. Enzymes at [place] negative. Repeat enzymes pending. Plan - Cycle ECG/Enzymes-Negativef for [place] - Aspirin/Clopidogrel/BB/Statin/ARB -Stress echo negative for ischemia, [...] of this encounter (statuses as of 09/25/2022) [facility] Narrative* Problem Noted Date Resolved Date Spinal stenosis, lumbar region with neurogenic c laudication 03/17/2020 05/12/2021 Neck pain 02/09/2020 05/12/2021 History of fusion of lumbar spine 02/04/2020 05/12/2021 History of fusion of cervical spine 02/04/2020 05/12/2021 Other persistent atrial fibrillation 09/08/2019 11/09/2020 Insomnia 08/21/2016 11/06/2018 Basal cell carcinoma 02/23/2015 11/06/2018 Overview: Dr. Macias, [facility] Dermatology Other seborrheic keratosis 02/17/201511/06 Overview: Dr. [...] enzymes pending. Plan - Cycle ECG/Enzymes-Negativef for [place] - Aspirin/Clopidogrel/BB/Statin/ARB -Stress echo negative for ischemia, [...] of this encounter (statuses as of 09/27/2022) [facility] Narrative* Problem Noted Date Resolved Date Spinal stenosis, lumbar region with neurogenic c laudication 03/17/2020 05/12/2021 Neck pain 02/09/2020 05/12/2021 History of fusion of lumbar spine 02/04/2020 05/12/2021 History of fusion of cervical spine 02/04/2020 05/12/2021 Other persistent atrial fibrillation 09/08/2019 11/09/2020 Insomnia 08/21/2016 11/06/2018 Basal cell carcinoma 02/23/2015 11/06/2018 Overview: Dr. Macias, [facility] Dermatology Other seborrheic keratosis 02/17/201511/06 Overview: Dr. [...] enzymes pending. Plan - Cycle ECG/Enzymes-Negativef for [place] - Aspirin/Clopidogrel/BB/Statin/ARB -Stress echo negative for ischemia, [...] of this encounter (statuses as of 11/06/2022) [facility] Narrative* Problem Noted Date Resolved Date Spinal stenosis, lumbar region with neurogenic c laudication 03/17/2020 05/12/2021 Neck pain 02/09/2020 05/12/2021 History of fusion of lumbar spine 02/04/2020 05/12/2021 History of fusion of cervical spine 02/04/2020 05/12/2021 Other persistent atrial fibrillation 09/08/2019 11/09/2020 Insomnia 08/21/2016 11/06/2018 Basal cell carcinoma 02/23/2015 11/06/2018 Overview: Dr. Macias, [facility] Dermatology Other seborrheic keratosis 02/17/201511/06 Overview: Dr. [...] a LHC showed stable CAD. Enzymes at [place] negative. Repeat enzymes pending. Plan - Cycle ECG/Enzymes-Negativef for [place] - Aspirin/Clopidogrel/BB/Statin/ARB -Stress echo negative for ischemia, [...] of this encounter (statuses as of 11/22/2022) [facility] Narrative* Problem Noted Date Resolved Date Spinal stenosis, lumbar region with neurogenic c laudication 03/17/2020 05/12/2021 Neck pain 02/09/2020 05/12/2021 History of fusion of lumbar spine 02/04/2020 05/12/2021 History of fusion of cervical spine 02/04/2020 05/12/2021 Other persistent atrial fibrillation 09/08/2019 11/09/2020 Insomnia 08/21/2016 11/06/2018 Basal cell carcinoma 02/23/2015 11/06/2018 Overview: Dr. Macias, [facility] Dermatology Other seborrheic keratosis 02/17/201511/06 Overview: Dr. [...] 2015 negative Zack negative Plan: - Consider [facility] if symptoms get worse Hyperlipidemia 04/07/2012 02/19/2017 [...] a LHC showed stable CAD. Enzymes at [place] negative. Repeat enzymes pending. Plan - Cycle ECG/Enzymes-Negativef for [place] - Aspirin/Clopidogrel/BB/Statin/ARB -Stress echo negative for ischemia, discharge 04/09 am. -04/09/2012 Stable DC home. Follow up with Dr Joens. DC home on same meds prior to [...] of this encounter (statuses as of 11/23/2022) [facility] Narrative* Problem Noted Date Resolved Date Spinal stenosis, lumbar region with neurogenic c laudication 03/17/2020 05/12/2021 Neck pain 02/09/2020 05/12/2021 History of fusion of lumbar spine 02/04/2020 05/12/2021 History of fusion of cervical spine 02/04/2020 05/12/2021 Other persistent atrial fibrillation 09/08/2019 11/09/2020 Insomnia 08/21/2016 11/06/2018 Basal cell carcinoma 02/23/2015 11/06/2018 Overview: Dr. Macias, [facility] Dermatology Other seborrheic keratosis 02/17/201511/06 Overview: Dr. [...] a LHC showed stable CAD. Enzymes at [place] negative. Repeat enzymes pending. Plan - Cycle ECG/Enzymes-Negativef for [place] - Aspirin/Clopidogrel/BB/Statin/ARB -Stress echo negative for ischemia, [...] of this encounter (statuses as of 12/04/2022) [facility] Narrative* Problem Noted Date Resolved Date Spinal stenosis, lumbar region with neurogenic c laudication 03/17/2020 05/12/2021 Neck pain 02/09/2020 05/12/2021 History of fusion of lumbar spine 02/04/2020 05/12/2021 History of fusion of cervical spine 02/04/2020 05/12/2021 Other persistent atrial fibrillation 09/08/2019 11/09/2020 Insomnia 08/21/2016 11/06/2018 Basal cell carcinoma 02/23/2015 11/06/2018 Overview: Dr. Macias, [facility] Dermatology Other seborrheic keratosis 02/17/201511/06 Overview: Dr. [...] angina Stress test in Sep 2015 negative [place] negative Plan: - Consider [facility] if symptoms [...] enzymes pending. Plan - Cycle ECG/Enzymes-Negativef for [place] - Aspirin/Clopidogrel/BB/Statin/ARB -Stress echo negative for ischemia, [...] of this encounter (statuses as of 12/20/2022) [facility] Narrative* Problem Noted Date Resolved Date Spinal stenosis, lumbar region with neurogenic c laudication 03/17/2020 05/12/2021 Neck pain 02/09/2020 05/12/2021 History of fusion of lumbar spine 02/04/2020 05/12/2021 History of fusion of cervical spine 02/04/2020 05/12/2021 Other persistent atrial fibrillation 09/08/2019 11/09/2020 Insomnia 08/21/2016 11/06/2018 Basal cell carcinoma 02/23/2015 11/06/2018 Overview: Dr. Macias, [facility] Dermatology Other seborrheic keratosis 02/17/201511/06 Overview: Dr. [...] enzymes pending. Plan - Cycle ECG/Enzymes-Negativef for [place] - Aspirin/Clopidogrel/BB/Statin/ARB -Stress echo negative for ischemia, [...] of this encounter (statuses as of 12/22/2022) [facility] Narrative* Problem Noted Date Resolved Date Spinal stenosis, lumbar region with neurogenic c laudication 03/17/2020 05/12/2021 Neck pain 02/09/2020 05/12/2021 History of fusion of lumbar spine 02/04/2020 05/12/2021 History of fusion of cervical spine 02/04/2020 05/12/2021 Other persistent atrial fibrillation 09/08/2019 11/09/2020 Insomnia 08/21/2016 11/06/2018 Basal cell carcinoma 02/23/2015 11/06/2018 Overview: Dr. Macias, [facility] Dermatology Other seborrheic keratosis 02/17/201511/06 Overview: Dr. [...] a LHC showed stable CAD. Enzymes at [place] negative. Repeat enzymes pending. Plan - Cycle ECG/Enzymes-Negativef for [place] - Aspirin/Clopidogrel/BB/Statin/ARB -Stress echo negative for ischemia, [...] of this encounter (statuses as of 12/27/2022) [facility]04[facility]2020 History of Past illness Narrative* Problem Noted Date Resolved Date Spinal stenosis, lumbar region with neurogenic c laudication 03/17/2020 05/12/2021 Neck pain 02/09/2020 05/12/2021 History of fusion of lumbar spine 02/04/2020 05/12/2021 History of fusion of cervical spine 02/04/2020 05/12/2021 Other persistent atrial fibrillation 09/08/2019 11/09/2020 Insomnia 08/21/2016 11/06/2018 Basal cell carcinoma 02/23/2015 11/06/2018 Overview: Dr. Macias, [facility] Dermatology Other seborrheic keratosis 02/17/201511/06 Overview: Dr. [...] enzymes pending. Plan - Cycle ECG/Enzymes-Negativef for [place] - Aspirin/Clopidogrel/BB/Statin/ARB -Stress echo negative for ischemia, discharge 04/09 am. -04/09/2012 Stable DC home. Follow up with Dr oJnes. DC home on same meds prior to [...] of this encounter (statuses as of 12/28/2022) [place] [id number] History of Past illness Narrative* Problem Noted Date Resolved Date Spinal stenosis, lumbar region with neurogenic c laudication 03/17/2020 05/12/2021 Neck pain 02/09/2020 05/12/2021 History of fusion of lumbar spine 02/04/2020 05/12/2021 History of fusion of cervical spine 02/04/2020 05/12/2021 Other persistent atrial fibrillation 09/08/2019 11/09/2020 Insomnia 08/21/2016 11/06/2018 Basal cell carcinoma 02/23/2015 11/06/2018 Overview: Dr. Macias, [facility] Dermatology Other seborrheic keratosis 02/17/201511/06 Overview: Dr. [...] a LHC showed stable CAD. Enzymes at [place] negative. Repeat enzymes pending. Plan - Cycle ECG/Enzymes-Negativef for [place] - Aspirin/Clopidogrel/BB/Statin/ARB -Stress echo negative for ischemia, [...] of this encounter (statuses as of 01/05/2023) [facility]04[facility]2020 History of Past illness Narrative* Problem Noted Date Resolved Date Spinal stenosis, lumbar region with neurogenic c laudication 03/17/2020 05/12/2021 Neck pain 02/09/2020 05/12/2021 History of fusion of lumbar spine 02/04/2020 05/12/2021 History of fusion of cervical spine 02/04/2020 05/12/2021 Other persistent atrial fibrillation 09/08/2019 11/09/2020 Insomnia 08/21/2016 11/06/2018 Basal cell carcinoma 02/23/2015 11/06/2018 Overview: Dr. Macias, [facility] Dermatology Other seborrheic keratosis 02/17/201511/06 Overview: Dr. [...] 2015 negative Zack negative Plan: - Consider [facility] if symptoms get worse Hyperlipidemia 04/07/2012 02/19/2017 [...] a LHC showed stable CAD. Enzymes at [place] negative. Repeat enzymes pending. Plan - Cycle ECG/Enzymes-Negativef for [place] - Aspirin/Clopidogrel/BB/Statin/ARB -Stress echo negative for ischemia, [...] of this encounter (statuses as of 01/05/2023) [facility]04[facility]2020 History of Past illness Narrative* Problem Noted Date Resolved Date Spinal stenosis, lumbar region with neurogenic c laudication 03/17/2020 05/12/2021 Neck pain 02/09/2020 05/12/2021 History of fusion of lumbar spine 02/04/2020 05/12/2021 History of fusion of cervical spine 02/04/2020 05/12/2021 Other persistent atrial fibrillation 09/08/2019 11/09/2020 Insomnia 08/21/2016 11/06/2018 Basal cell carcinoma 02/23/2015 11/06/2018 Overview: Dr. Macias, [facility] Dermatology Other seborrheic keratosis 02/17/201511/06 Overview: Dr. [...] enzymes pending. Plan - Cycle ECG/Enzymes-Negativef for [place] - Aspirin/Clopidogrel/BB/Statin/ARB -Stress echo negative for ischemia, [...] of this encounter (statuses as of 01/16/2023) [facility]04[facility]2020 History of Past illness Narrative* Problem Noted Date Resolved Date Spinal stenosis, lumbar region with neurogenic c laudication 03/17/2020 05/12/2021 Neck pain 02/09/2020 05/12/2021 History of fusion of lumbar spine 02/04/2020 05/12/2021 History of fusion of cervical spine 02/04/2020 05/12/2021 Other persistent atrial fibrillation 09/08/2019 11/09/2020 Insomnia 08/21/2016 11/06/2018 Basal cell carcinoma 02/23/2015 11/06/2018 Overview: Dr. Macias, [facility] Dermatology Other seborrheic keratosis 02/17/201511/06 Overview: Dr. [...] enzymes pending. Plan - Cycle ECG/Enzymes-Negativef for [place] - Aspirin/Clopidogrel/BB/Statin/ARB -Stress echo negative for ischemia, [...] of this encounter (statuses as of 02/12/2023) [facility]04-[facility]-2020 History of Past illness Narrative* Problem Noted Date Resolved Date Spinal stenosis, lumbar region with neurogenic c laudication 03/17/2020 05/12/2021 Neck pain 02/09/2020 05/12/2021 History of fusion of lumbar spine 02/04/2020 05/12/2021 History of fusion of cervical spine 02/04/2020 05/12/2021 Other persistent atrial fibrillation 09/08/2019 11/09/2020 Insomnia 08/21/2016 11/06/2018 Basal cell carcinoma 02/23/2015 11/06/2018 Overview: Dr. Macias, [facility] Dermatology Other seborrheic keratosis 02/17/201511/06 Overview: Dr. [...] a LHC showed stable CAD. Enzymes at [place] negative. Repeat enzymes pending. Plan - Cycle ECG/Enzymes-Negativef for [place] - Aspirin/Clopidogrel/BB/Statin/ARB -Stress echo negative for ischemia, [...] of this encounter (statuses as of 02/20/2023) [facility]04-[facility]-2020 History of Past illness Narrative* Problem Noted Date Resolved Date Spinal stenosis, lumbar region with neurogenic c laudication 03/17/2020 05/12/2021 Neck pain 02/09/2020 05/12/2021 History of fusion of lumbar spine 02/04/2020 05/12/2021 History of fusion of cervical spine 02/04/2020 05/12/2021 Other persistent atrial fibrillation 09/08/2019 11/09/2020 Insomnia 08/21/2016 11/06/2018 Basal cell carcinoma 02/23/2015 11/06/2018 Overview: Dr. Macias, [facility] Dermatology Other seborrheic keratosis 02/17/201511/06 Overview: Dr. [...] a LHC showed stable CAD. Enzymes at [place] negative. Repeat enzymes pending. Plan - Cycle ECG/Enzymes-Negativef for [place] - Aspirin/Clopidogrel/BB/Statin/ARB -Stress echo negative for ischemia, [...] of this encounter (statuses as of 02/21/2023) [facility]04-[facility]-2020 History of Past illness Narrative* Problem Noted [...] a LHC showed stable CAD. Enzymes at [place] negative. Repeat enzymes pending. Plan - Cycle ECG/Enzymes-Negativef for [place] - Aspirin/Clopidogrel/BB/Statin/ARB -Stress echo negative for ischemia, [...] of this encounter (statuses as of 02/22/2023) [facility]04-[facility]-2020 History of Past illness Narrative* Problem Noted Date Resolved Date Spinal stenosis, lumbar region with neurogenic c laudication 03/17/2020 05/12/2021 Neck pain 02/09/2020 05/12/2021 History of fusion of lumbar spine 02/04/2020 05/12/2021 History of fusion of cervical spine 02/04/2020 05/12/2021 Other persistent atrial fibrillation 09/08/2019 11/09/2020 Insomnia 08/21/2016 11/06/2018 Basal cell carcinoma 02/23/2015 11/06/2018 Overview: Dr. Macias, [facility] Dermatology Other seborrheic keratosis 02/17/201511/06 Overview: Dr. [...] enzymes pending. Plan - Cycle ECG/Enzymes-Negativef for [place] - Aspirin/Clopidogrel/BB/Statin/ARB -Stress echo negative for ischemia, [...] of this encounter (statuses as of 03/15/2023) [facility]04[facility]2020 History of Past illness Narrative* Problem Noted Date Resolved Date Spinal stenosis, lumbar region with neurogenic c laudication 03/17/2020 05/12/2021 Neck pain 02/09/2020 05/12/2021 History of fusion of lumbar spine 02/04/2020 05/12/2021 History of fusion of cervical spine 02/04/2020 05/12/2021 Other persistent atrial fibrillation 09/08/2019 11/09/2020 Insomnia 08/21/2016 11/06/2018 Basal cell carcinoma 02/23/2015 11/06/2018 Overview: Dr. Macias, [facility] Dermatology Other seborrheic keratosis 02/17/201511/06 Overview: Dr. [...] enzymes pending. Plan - Cycle ECG/Enzymes-Negativef for [place] - Aspirin/Clopidogrel/BB/Statin/ARB -Stress echo negative for ischemia, [...] of this encounter (statuses as of 03/16/2023) [facility]04[facility]2020 History of Past illness Narrative* Problem Noted Date Resolved Date Spinal stenosis, lumbar region with neurogenic c laudication 03/17/2020 05/12/2021 Neck pain 02/09/2020 05/12/2021 History of fusion of lumbar spine 02/04/2020 05/12/2021 History of fusion of cervical spine 02/04/2020 05/12/2021 Other persistent atrial fibrillation 09/08/2019 11/09/2020 Insomnia 08/21/2016 11/06/2018 Basal cell carcinoma 02/23/2015 11/06/2018 Overview: Dr. Macias, [facility] Dermatology Other seborrheic keratosis 02/17/201511/06 Overview: Dr. [...] 2015 negative Zack negative Plan: - Consider [facility] if symptoms get worse Hyperlipidemia 04/07/2012 02/19/2017 [...] a LHC showed stable CAD. Enzymes at [place] negative. Repeat enzymes pending. Plan - Cycle ECG/Enzymes-Negativef for [place] - Aspirin/Clopidogrel/BB/Statin/ARB -Stress echo negative for ischemia, [...] of this encounter (statuses as of 04/18/2023) [facility]04-29-2020 History of Past illness Narrative* Problem Noted Date Resolved Date Spinal stenosis, lumbar region with neurogenic c laudication 03/17/2020 05/12/2021 Neck pain 02/09/2020 05/12/2021 History of fusion of lumbar spine 02/04/2020 05/12/2021 History of fusion of cervical spine 02/04/2020 05/12/2021 Other persistent atrial fibrillation 09/08/2019 11/09/2020 Insomnia 08/21/2016 11/06/2018 Basal cell carcinoma 02/23/2015 11/06/2018 Overview: Dr. Macias, [facility] Dermatology Other seborrheic keratosis 02/17/201511/06 Overview: Dr. [...] enzymes pending. Plan - Cycle ECG/Enzymes-Negativef for [place] - Aspirin/Clopidogrel/BB/Statin/ARB -Stress echo negative for ischemia, [...] a 2.5 x 16 mm Promus Element DARIC H. pylori infection 05/30/2011 09/28/2011 Overview: Continue [...] of this encounter (statuses as of 05/11/2023) [facility]04[facility] History of Past illness Narrative* Problem Noted [...] cell carcinoma 02/23/2015 018 Overview: Dr. Macias, [facility] Dermatology Other seborrheic keratosis 02/17/2015 1 01/07/2018 [...] a LHC showed stable CAD. Enzymes at [place] negative. Repeat enzymes pending. Plan - Cycle ECG/Enzymes-Negativef for [place] - Aspirin/Clopidogrel/BB/Statin/ARB -Stress echo negative for ischemia, [...] of this encounter (statuses as of 06/28/2023) [facility]04[facility]2020 History of Past illness Narrative* Problem Noted [...] cell carcinoma 02/23/2015 018 Overview: Dr. Macias, [facility] Dermatology Other seborrheic keratosis 02/17/2015 1 01/07/2018 [...] a LHC showed stable CAD. Enzymes at [place] negative. Repeat enzymes pending. Plan - Cycle ECG/Enzymes-Negativef for [place] - Aspirin/Clopidogrel/BB/Statin/ARB -Stress echo negative for ischemia, [...] of this encounter (statuses as of 07/02/2023) [facility]04[facility] History of Past illness Narrative* Problem Noted [...] cell carcinoma 02/23/2015 018 Overview: Dr. Macias, [facility] Dermatology Other seborrheic keratosis 02/17/2015 1 01/07/2018 [...] enzymes pending. Plan - Cycle ECG/Enzymes-Negativef for [place] - Aspirin/Clopidogrel/BB/Statin/ARB -Stress echo negative for ischemia, [...] of this encounter (statuses as of 07/09/2023) [facility]04[facility] History of Past illness Narrative* Problem Noted [...] cell carcinoma 02/23/2015 018 Overview: Dr. Macias, [facility] Dermatology Other seborrheic keratosis 02/17/2015 1 01/07/2018 [...] 2015 negative Zack negative Plan: - Consider [facility] if symptoms get worse Hyperlipidemia 04/07/2012 02/19/2017 [...] enzymes pending. Plan - Cycle ECG/Enzymes-Negativef for [place] - Aspirin/Clopidogrel/BB/Statin/ARB -Stress echo negative for ischemia, [...] a 2.5 x 16 mm Promus Element ADRCI H. pylori infection 05/30/2011 09/28/20 11 Overview: [...] of this encounter (statuses as of 07/13/2023) [facility] History of Past illness Narrative* Problem Noted [...] cell carcinoma 02/23/2015 018 Overview: Dr. Macias, [facility] Dermatology Other seborrheic keratosis 02/17/2015 1 01/07/2018 [...] 2015 negative Zack negative Plan: - Consider [facility] if symptoms get worse Hyperlipidemia 04/07/2012 02/19/2017 [...] a LHC showed stable CAD. Enzymes at [place] negative. Repeat enzymes pending. Plan - Cycle ECG/Enzymes-Negativef for [place] - Aspirin/Clopidogrel/BB/Statin/ARB -Stress echo negative for ischemia, [...] of this encounter (statuses as of 07/22/2023) [facility]04[facility] History of Past illness Narrative* Problem Noted [...] cell carcinoma 02/23/2015 018 Overview: Dr. Macias, [facility] Dermatology Other seborrheic keratosis 02/17/2015 1 01/07/2018 [...] a LHC showed stable CAD. Enzymes at [place] negative. Repeat enzymes pending. Plan - Cycle ECG/Enzymes-Negativef for [place] - Aspirin/Clopidogrel/BB/Statin/ARB -Stress echo negative for ischemia, [...] of this encounter (statuses as of 09/15/2023) [facility] History of Past illness Narrative* Problem Noted [...] cell carcinoma 02/23/2015 018 Overview: Dr. Macias, [facility] Dermatology Other seborrheic keratosis 02/17/2015 1 01/07/2018 [...] enzymes pending. Plan - Cycle ECG/Enzymes-Negativef for [place] - Aspirin/Clopidogrel/BB/Statin/ARB -Stress echo negative for ischemia, [...] of this encounter (statuses as of 09/23/2023) [facility] History of Past illness Narrative* Problem Noted [...] cell carcinoma 02/23/2015 018 Overview: Dr. Macias, [facility] Dermatology Other seborrheic keratosis 02/17/2015 1 01/07/2018 [...] a LHC showed stable CAD. Enzymes at [place] negative. Repeat enzymes pending. Plan - Cycle ECG/Enzymes-Negativef for [place] - Aspirin/Clopidogrel/BB/Statin/ARB -Stress echo negative for ischemia, [...] of this encounter (statuses as of 09/28/2023) [facility] History of Past illness Narrative* Problem Noted [...] cell carcinoma 02/23/2015 018 Overview: Dr. Macias, [facility] Dermatology Other seborrheic keratosis 02/17/2015 1 01/07/2018 [...] enzymes pending. Plan - Cycle ECG/Enzymes-Negativef for [place] - Aspirin/Clopidogrel/BB/Statin/ARB -Stress echo negative for ischemia, [...] of this encounter (statuses as of 10/12/2023) [facility] ETHAN on CPAP- Primary Obstructive sleep apnea (adult) (pediatric) Parasomnia, unspecified type Cervicalgia Spinal stenosis of cervical region Spinal stenosis in cervical region History of fusion of cervical spine Arthrodesis status [facility] Diagnosis 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 Onychomycosis Dermatophytosis of nail Pain in toe of right foot Pain in limb Pain in toe of left foot Pain in limb Hyperkeratosis 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 [facility] Diagnosis Spinal stenosis of cervical region Spinal stenosis in cervical region [facility] this encounter [facility]* Diagnosis 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) Type II or unspecified type diabetes mellitus with renal manifestations, not stated as uncontrolled [facility] Diagnosis 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) Type II or unspecified type diabetes mellitus with neurological manifestations, not stated as uncontrolled [facility] Diagnosis Coronary artery disease involving [place] coronary artery of [place] heart without angina pectoris- Primary Paroxysmal atrial fibrillation (HCC) Atrial fibrillation Visit for monitoring Tikosyn therapy Encounter for therapeutic drug monitoring Current use of custodial anticoagulation Long-term (current) use of anticoagulants [facility]* Diagnosis Actinic keratosis- Primary History of nonmelanoma skin cancer Personal history of other malignant neoplasm of skin Seborrheic keratosis Other seborrheic keratosis [facility] noteNo assessment information availableWMarietta Osteopathic Clinic Work Phone: Evaluation note* Diagnosis 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 Onychomycosis Dermatophytosis of nail Pain in toe of right foot Pain in limb Pain in toe of left foot Pain in limb Hyperkeratosis 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 [facility] Diagnosis Encounter to discuss test results [Z71.2 (ICD-10-CM)]- Primary Other specified counseling [facility]* Diagnosis Vertigo- Primary Dizziness and giddiness [...] ClinicEvaluation note* Diagnosis Coronary artery disease of [place] artery of [place] heart with stable angina pectoris (HCC)- Primary [facility] ETHAN on CPAP- Primary Obstructive sleep apnea (adult) (pediatric) Parasomnia, unspecified type Cervicalgia Vertigo Dizziness and giddiness Other insomnia Stable angina (HCC) Other and unspecified angina pectoris [facility] Diagnosis Cervicalgia- Primary History of fusion of cervical spine Arthrodesis status Cervical myofascial pain syndrome Mylagia and myositis, unspecified documented in this encounter [facility]* Diagnosis Cervicalgia- Primary [facility] Diagnosis Skin exam, screening for cancer- Primary Screening for malignant neoplasm of the skin Hx of nonmelanoma skin cancer Personal history of other malignant neoplasm of skin Neoplasm of skin Neoplasm of unspecified nature of bone, soft tissue, and skin Actinic keratosis Lentigines Other dyschromia Rios angioma Nevus, non-neoplastic Seborrheic keratosis Other seborrheic keratosis documented in this encounter [facility]* Diagnosis Basal cell carcinoma (BCC) of left cheek documented in this encounter [facility]* Diagnosis 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 Onychomycosis Dermatophytosis of nail Pain in toe of right foot Pain in limb Pain in toe of left foot Pain in limb Hammer toes of both feet Hyperkeratosis Acquired keratoderma [facility] Coronary artery disease of [place] artery of [place] heart with stable angina pectoris (HCC)- Primary [...] of insulin (HCC) documented [facility] this encounter [facility]* Diagnosis Adjustment insomnia- Primary Transient disorder of initiating or maintaining sleep [facility] Diagnosis Medicare annual wellness visit, subsequent- Primary Routine general medical examination at a health care facility Encounter for immunization Need for other specified prophylactic vaccination against single bacterial disease [facility] Diagnosis ETHAN on CPAP- Primary Obstructive sleep apnea (adult) (pediatric) Parasomnia, unspecified type Cervicalgia Lightheadedness Dizziness and giddiness documented in this encounter [facility]* Diagnosis Paroxysmal atrial fibrillation (HCC)- Primary Atrial fibrillation Encounter for monitoring dofetilide therapy Encounter for therapeutic drug monitoring Essential hypertension Unspecified essential hypertension Acute diastolic heart failure (HCC) Acute diastolic heart failure [facility] this encounter [facility]* Diagnosis Screening for AAA (abdominal aortic aneurysm) Screening for other and unspecified cardiovascular conditions documented [facility] this encounter [facility]* Diagnosis Other persistent atrial fibrillation, status post ablation, 2016 documented [facility] this encounter [facility]* Diagnosis URI, acute- Primary Acute upper respiratory infections of unspecified site Sore throat Acute pharyngitis Urinary frequency Gross hematuria Pre-syncope Syncope and collapse [facility] Diagnosis 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 Onychomycosis Dermatophytosis of nail Pain in toe of right foot Pain in limb Pain in toe of left foot Pain in limb Hammer toes of both feet Hyperkeratosis Acquired keratoderma [facility] Diagnosis Paroxysmal atrial fibrillation (HCC) Atrial fibrillation Essential hypertension Unspecified essential hypertension [facility]* Diagnosis Obstructive sleep apnea (adult) (pediatric)- Primary ETHAN on CPAP Obstructive sleep apnea (adult) (pediatric) Parasomnia, unspecified type Cervicalgia Lumbar pain Lumbago Lightheadedness Dizziness and giddiness documented in this encounter [facility]* Diagnosis Paroxysmal atrial fibrillation (HCC)- Primary Atrial fibrillation Encounter for monitoring dofetilide therapy Encounter for therapeutic drug monitoring [facility] Diagnosis Open wound of toe, initial encounter- Primary [facility] Diagnosis Low back pain with sciatica, sciatica laterality unspecified, unspecified back pain laterality, unspecified chronicity- Primary [facility] Diagnosis Low back pain with sciatica, sciatica laterality unspecified, unspecified back pain laterality, unspecified chronicity [facility] Diagnosis Low back pain with sciatica, sciatica laterality unspecified, unspecified back pain laterality, unspecified chronicity- Primary Lumbar radiculopathy Thoracic or lumbosacral neuritis or radiculitis, unspecified [facility] [facility] Low back pain with sciatica, sciatica laterality unspecified, unspecified back pain laterality, unspecified chronicity- Primary Lumbar radiculopathy Thoracic or lumbosacral neuritis or radiculitis, unspecified Low back pain with sciatica, sciatica laterality unspecified, unspecified back pain laterality, unspecified chronicity Lumbar radiculopathy Thoracic or lumbosacral neuritis or radiculitis, unspecified [facility] Diagnosis Basal cell carcinoma (BCC) of left yazdanism region [facility] Diagnosis Coronary artery disease of [place] artery of [place] heart with stable angina pectoris (HCC)- Primary Paroxysmal atrial fibrillation (HCC) Atrial fibrillation Hypertensive 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 4 chronic kidney disease, or unspecified chronic kidney disease Hypercholesteremia Pure hypercholesterolemia [facility] Diagnosis Lumbar radiculopathy- Primary Thoracic or lumbosacral neuritis or radiculitis, unspecified Lumbar spondylosis Lumbosacral spondylosis without myelopathy [facility] Diagnosis Medicare annual wellness visit, [...] single bacterial disease [facility] Diagnosis Encounter for monitoring dofetilide therapy- Primary Encounter for therapeutic drug monitoring Paroxysmal atrial fibrillation (HCC) Atrial fibrillation On continuous oral anticoagulation Long-term (current) use of anticoagulants [facility] Diagnosis ETHAN on CPAP- Primary Obstructive sleep apnea (adult) (pediatric) Parasomnia, unspecified type Class 1 obesity with body mass index (BMI) of 32.0 to 32.9 in adult, unspecified obesity type, unspecified whether serious comorbidity present [facility] Diagnosis Radiculopathy of lumbar region- Primary Thoracic or lumbosacral neuritis or radiculitis, unspecified Lumbar radiculopathy Thoracic or lumbosacral neuritis or radiculitis, unspecified Lumbar spondylosis Lumbosacral spondylosis without myelopathy documented [facility] Diagnosis Radiculopathy of lumbar region Thoracic or lumbosacral neuritis or radiculitis, unspecified [facility]* Diagnosis Skin exam, screening for cancer- Primary Screening for malignant neoplasm of the skin Hx of nonmelanoma skin cancer Personal history of other malignant neoplasm of skin Neoplasm of uncertain behavior of skin Actinic keratosis Rios angioma Nevus, non-neoplastic Lentigines Other dyschromia Multiple benign nevi Benign neoplasm of skin, site unspecified Seborrheic keratosis Other seborrheic keratosis documented [facility]* Diagnosis Spondylolisthesis of lumbar region- Primary Acquired spondylolisthesis Spinal stenosis, lumbar region with neurogenic claudication [facility]* Diagnosis Onychomycosis- Primary Dermatophytosis of nail Pain in toe of right foot Pain in limb Pain in toe of left foot Pain in limb Other diabetic neurological complication associated with type 2 diabetes mellitus (HCC) documented [facility]* Diagnosis Onychomycosis- Primary Dermatophytosis of nail Pain in toe of right foot Pain in limb Pain in toe of left foot Pain in limb 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 documented [facility]* Diagnosis Sebaceous adenoma of face- Primary Benign neoplasm of skin of other and unspecified parts of face documented [facility] this [facility]* Diagnosis 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 Postlaminectomy syndrome, lumbar region Chronic midline thoracic back pain documented [facility]* Diagnosis Other persistent atrial fibrillation, status post ablation, 2016 [facility] Diagnosis Failed back syndrome of lumbar spine Postlaminectomy syndrome, lumbar region Chronic midline thoracic back pain documented [facility]* Diagnosis Encounter for immunization Need for other specified prophylactic vaccination against single bacterial disease [facility] Diagnosis Paroxysmal atrial fibrillation (HCC) Atrial fibrillation Gastroesophageal reflux disease without esophagitis Esophageal reflux documented [facility] Diagnosis 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 Postlaminectomy syndrome, lumbar region documented [facility]* Diagnosis Epididymitis- Primary Orchitis and epididymitis, unspecified [facility] Diagnosis Essential hypertension Unspecified essential hypertension [facility]* Diagnosis Onychomycosis- Primary Dermatophytosis of nail Pain in toe of right foot Pain in limb Pain in toe of left foot Pain in limb Other diabetic neurological complication associated with type 2 diabetes mellitus ([facility]) Hyperkeratosis 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 [facility] Diagnosis Pain disorder with related psychological [...] spondylosis without myelopathy [facility]* Diagnosis Nocturnal leg cramps- Primary Sleep related leg cramps Essential hypertension Unspecified essential hypertension Paroxysmal atrial fibrillation (HCC) Atrial fibrillation Coronary artery disease of [place] artery of [place] heart with stable angina pectoris (HCC) Well [...] spondylosis without myelopathy [facility] Diagnosis Pre-op evaluation- Primary Preoperative examination, unspecified Coronary artery disease of [place] artery of [place] heart with stable angina pectoris (HCC) Hypercholesteremia [...] of ablation 03/2017 Follows with Cardiology in [place], and EP at , last OV with KRISTY Raymond 07/24/2024 * Assessment & Plan Note - William Vann PA-C - 12/24/2024 9:03 AM EST Associated Problem(s): Hypercholesteremia Assessment: taking statin, PCP following * Assessment & Plan Note - William Vann PA-C - 12/24/2024 9:02 AM EST Associated Problem(s): Coronary artery disease of [place] artery of [place] heart with stable angina pectoris (HCC) Assessment: Follows with Cardiology in [place], and EP at , last OV with Diane Reed PA-C 07/24/2024 History of [place] and stents. Denies any recent chest pain or SOB. No Nitro in months. [facility] Diagnosis Nocturnal leg cramps- Primary Sleep related leg cramps Pre-op evaluation- Primary Preoperative examination, unspecified Coronary artery disease of [place] artery of [place] heart with stable angina pectoris (HCC) Hypercholesteremia [...] spondylosis without myelopathy [facility]* Diagnosis Pre-op evaluation- Primary Preoperative examination, unspecified Coronary artery disease of [place] artery of [place] heart with stable angina pectoris (HCC) Hypercholesteremia [...] syndrome, lumbar region documented [facility]* Diagnosis Pre-op evaluation- Primary Preoperative examination, unspecified Coronary artery disease of [place] artery of [place] heart with stable angina pectoris (HCC) Hypercholesteremia [...] thoracic back pain [facility] Diagnosis Postlaminectomy syndrome of lumbar region- Primary Postlaminectomy syndrome, lumbar region documented in this encounter [facility] Work Phone: Evaluation note* Diagnosis Pre-op evaluation- Primary Preoperative examination, unspecified Coronary artery disease of [place] artery of [place] heart with stable angina pectoris Hypercholesteremia Pure [...] Other seborrheic keratosis documented [facility] this [facility]* Diagnosis Pre-op evaluation- Primary Preoperative examination, unspecified Coronary artery disease of [place] artery of [place] heart with stable angina pectoris Hypercholesteremia Pure [...] coronary angioplasty status Coronary artery disease of [place] artery of [place] heart with stable angina pectoris- Primary Paroxysmal atrial fibrillation (HCC) Atrial fibrillation Hypercholesteremia Pure hypercholesterolemia Primary hypertension Unspecified essential hypertension Pre-operative cardiovascular examination documented [facility]* Diagnosis Postlaminectomy syndrome of lumbar region- Primary Postlaminectomy syndrome, lumbar region S/P insertion of spinal cord stimulator documented in this encounter [facility] Work Phone: Evaluation note* Diagnosis Pre-op evaluation- Primary Preoperative examination, unspecified Coronary artery disease of [place] artery of [place] heart with stable angina pectoris Hypercholesteremia Pure [...] spinal cord stimulator documented [facility]* Diagnosis Pre-op evaluation- Primary Preoperative examination, unspecified Coronary artery disease of [place] artery of [place] heart with stable angina pectoris Hypercholesteremia Pure [...] or radiculitis, unspecified documented [facility] Diagnosis Pre-op evaluation- Primary Preoperative examination, unspecified Coronary artery disease of [place] artery of [place] heart with stable angina pectoris Hypercholesteremia Pure [...] Dermatophytosis of foot [facility] Diagnosis Pre-op evaluation- Primary Preoperative examination, unspecified Coronary artery disease of [place] artery of [place] heart with stable angina pectoris Hypercholesteremia Pure [...] stated as uncontrolled Coronary artery disease of [place] artery of [place] heart with stable angina pectoris Primary hypertension Unspecified essential hypertension Failed back syndrome Other unspecified back disorder Weakness of both legs Other musculoskeletal symptoms referable to limbs Wheezing documented in this [facility]* Diagnosis Pre-op evaluation- Primary Preoperative examination, unspecified Coronary artery disease of [place] artery of [place] heart with stable angina pectoris Hypercholesteremia Pure [...] Parasomnia, unspecified type documented in this encounter [facility] Discharge instructions Additional Instructions The exact [...] causing your dizziness. Please follow-up with your black top roller as well as your primary care doctor. You are given a GI cocktail in the ER which did seem to improve some of the burning in your chest. Try to adhere to a low acid diet to see if that helps with your symptoms.[facility] Work Phone: Reason for referral (narrative)* Outpatient Procedure (Routine) - Pending Review Specialty Diagnoses / Procedures Referred By Greg mcgraw Ref[facility] Diagnoses Coronary artery disease involving [place] coronary artery of [place] heart without angina pectoris Procedures ECG COMPLETE ECG ROUTINE ECG W/LEAST 12 LDS W/I&R Faby Georges APRN.CNP [address] [place] [address] [facility] [place] [address] [place] [address] Referral ID Status Reason Start Date Expiration Date Visits Requested Visits Authorized [id number] Pending Review Auto-Generat ed Referral 06/20/2022 06/20/2023 1 1 [facility] for referral (narrative)* Diagnostic Procedure Only (Routine) - Authorized Specialty Diagnoses / Procedures Referred By Greg mcgraw Referred To Contact US IMAGING Diagnoses Screening for AAA (abdominal aortic aneurysm) Procedures US SCREENING FOR AAA (2017) US ABDOMINAL AORTA REAL TIME SCREEN STUDY AAA Galindo Yuan MD [address] [place] [address] [facility] Referral ID Status Reason Start Date Expiration Date Visits Requested Visits Authorized [id number] Authorized Auto-Generat ed Referral 12/20/2022 01/19/2024 1 1 [facility] for referral (narrative)* Outpatient Procedure (Routine) - Pending Review Specialty Diagnoses / Procedures Referred By Contac t Referred To Contact [facility] [place] Diagnoses Paroxysmal atrial fibrillation (HCC) Encounter for monitoring dofetilide therapy Procedures ECG COMPLETE ECG ROUTINE ECG W/LEAST 12 LDS W/I&R Sakshi Sanz [place] [id number] [place] [address] [address] Referral ID Status Reason Start Date Expiration Date Visits Requested Visits Authorized [id number] Pending Review Auto-Generat ed Referral 07/19/2023 07/18/2024 4 4 * Outpatient Procedure (Routine) - Pending Review Specialty Diagnoses / Procedures Referred By Contac t Referred To [facility] Diagnoses Paroxysmal atrial fibrillation (HCC) Procedures ECHO ECHO TTHRC R-T 2D W/WOM-MODE COMPL SPEC&COLR D Sakshi Sanz MD [id number] [place] [address] [address] Referral ID Status Reason Start Date Expiration Date Visits Requested Visits Authorized [id number] Pending Review Auto-Generat ed Referral 07/19/2023 07/18/2024 1 1 * Outpatient Procedure (Routine) - Pending Review Specialty Diagnoses / Procedures Referred By Contac t Referred To [facility] Diagnoses Paroxysmal atrial fibrillation (HCC) Procedures ECG COMPLETE ECG ROUTINE ECG W/LEAST 12 LDS W/I&R Sakshi Sanz MD [id number] [place] [address] [facility] [place] [facility] [place] [address] Referral ID Status Reason Start Date Expiration Date Visits Requested Visits Authorized [id number] Pending Review Auto-Generat ed Referral 07/19/2023 07/18/2024 1 1 [facility] for referral (narrative)* Diagnostic Procedure Only (Routine) - Closed Specialty Diagnoses / Procedures Referred By Contac t Referred To Contact US IMAGING Diagnoses Screening for AAA (abdominal aortic aneurysm) Procedures US SCREENING FOR AAA (2017) US ABDOMINAL AORTA REAL TIME SCREEN STUDY AAA Galindo Yuan MD [address] [place] [address] [place] [address] Referral ID Status Reason Start Date Expiration Date V isits Requested Visits Authorized [id number] Closed Auto-Generate d Referral 12/20/2022 01/19/2024 1 1 [facility] for referral (narrative)* Outpatient Procedure (Routine) - New Request Specialty Diagnoses / Procedures Referred By Contac t Referred To Contact [facility] [place] Diagnoses Encounter for monitoring dofetilide therapy Paroxysmal atrial fibrillation (HCC) Procedures ECG COMPLETE ECG ROUTINE ECG W/LEAST 12 LDS W/I&R Diane Bruce PA-C [address] [place] [address] [facility] [address] [address] Referral ID Status Reason Start Date Expiration Date Visits Requested Visits Authorized [id number] New Request Auto-Generat ed Referral 01/21/2025 07/24/2025 1 1 * Outpatient Procedure (Routine) - New Request Specialty Diagnoses / Procedures Referred By Contac t Referred To Contact [facility] [place] Diagnoses Encounter for monitoring dofetilide therapy Paroxysmal atrial fibrillation (HCC) Procedures ECG COMPLETE ECG ROUTINE ECG W/LEAST 12 LDS W/I&R Diane Bruce PA-C [address] [place] [address] [facility] [place] [address] [place] [address] Referral ID Status Reason Start Date Expiration Date Visits Requested Visits Authorized [id number] New Request Auto-Generat ed Referral 07/24/2024 07/24/2025 1 1 [facility] for referral (narrative)* Diagnostic Procedure Only (Routine) - Authorized Specialty Diagnoses / Procedures Referred By Contac t Referred To Contact XR IMAGING Diagnoses 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 Procedures XR THORACIC LIMITED 2V AP/LAT RADEX SPINE THORACIC 2 VIEWS Renan Bowling MD [address] [facility] [address] [place] [address] Referral ID Status Reason Start Date Expiration Date Visits Requested Visits Authorized [id number] Authorized Auto-Generat ed Referral 4 10/31/2025 1 1 * Consult, Test, Treat (Routine) - Pending Review Specialty Diagnoses / Procedures Referred By Contac t Referred To Contact Psychology Diagnoses Failed back syndrome of lumbar spine Procedures CONSULT TO PSYCHOLOGY OFFICE/OUTPATIENT [facility] 60 MINUTES Renan Bowling MD [address] [facility] [place] [address] Referral ID Status Reason Start Date Expiration Date Visits Requested Visits Authorized [id number] Pending Review PCP Requested Referral 4 10/01/2025 1 1 [facility] for visit Narrative* Diagnostic Procedure Only (Routine) - Closed Specialty Diagnoses / Procedures Referred By Contac t Referred To Contact XR IMAGING Diagnoses 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 Procedures XR THORACIC LIMITED 2V AP/LAT RADEX SPINE THORACIC 2 VIEWS Renan Bowling MD [address] [facility] [place] [address] [place] [address] Referral ID Status Reason Start Date Expiration Date V isits Requested Visits Authorized [id number] Closed Auto-Generate d Referral 10/01/2024 10/31/2025 1 1 [facility] for visit Narrative* Outpatient Procedure (Routine) - Closed Specialty Diagnoses / Procedures Referred By Contac t Referred To Contact PAIN MANAGEMENT Diagnoses Pain disorder with related psychological factors Procedures PSYCHIATRIC DIAGNOSTIC EVALUATION PSYCHOLOGICAL TST EVAL SVC PHYS/QHP FIRST HOUR PSYL/NRPSYCL TST PHYS/QHP 2+ TST 1ST 30 [place] [address] [place] [address] Silvia Villanueva, PhD [address] [address] Referral ID Status Reason Start Date Expiration Date Visits Re quested Visits Authorized [id number] Closed 11/19/2024 12/26/2024 1 1 [facility] for visit Narrative* MRI/CT (Routine) - Closed Specialty Diagnoses / Procedures Referred By Contac t Referred To Contact MR IMAGING Diagnoses Chronic midline thoracic back pain Procedures MRI THORACIC SPINE WO IVCON MRI SPINAL CANAL THORACIC W/O CONTRAST MATRL Renan Bowling MD [address] [facility] [place] [address] Phone: tel: fax: MR IMAGING [facility] Referral ID Status Reason Start Date Expiration Date V isits Requested Visits Authorized [id number] Closed Auto-Generate d Referral 01/21/2025 02/20/2026 1 1 [facility] Summary Purpose Family History No Family History [...] FoundDocuments on File Type Date Recorded Patient Weblogic Administrator Expl anation Advance Directive(s) 04/15/2020 9:06 AM Advance Directive(s) 04/05/2020 3:26 PM Documents on File Type Date Recorded Patient Weblogic Administrator Expl anation Advance Directive(s) 04/15/2020 9:06 AM Advance Directive(s) 04/05/2020 3:26 PM Advance Directive Response Recorded Date/ Time Advance Directives No November 22, 2016 4:35pm Living Will No August 08, 2022 8:12am Power of Dredge Lever Operator No July 8:12am Advance Directive Response Recorded Date/ Time Advance Directives No November 22, 2016 3:35pm Living Will No January 27, 2023 9:24am Power of Dredge Lever Operator No January 27 9:24am Advance Directive Response Recorded Date/ Time Advance Directives No November 22, 2016 4:35pm Living Will No June 24, 2023 7:57am Power of Dredge Lever Operator No June 24 7:57am Advance Directive Response Recorded Date/ Time Advance Directives No November 22, 2016 3:35pm Living Will No October 12, 2 023 4:05pm Power of Dredge Lever Operator No October 12, 2023 4:05pm Date Activated [...] CONTRAST MATRL Rashaun Manning Jr., MD [address] [facility] [address] [place] [address] Mr Imaging Referral ID Status Reason Start Date Expiration Date Visits Requested Visits Authorized [id number] Authorized Auto-Generat ed Referral 05/01/2022 05/31/2023 1 1 Referral ID Status Reason Start Date Expiration Date V isits Requested Visits Authorized [id number] Closed Auto-Generate d Referral 05/01/2022 05/31/2023 1 1 Specialty Diagnoses / Procedures Referred By Contac t Referred To Contact Pain Management Diagnoses Cervicalgia History of fusion of cervical spine Procedures CONSULT TO PAIN MGT OFFICE/OUTPATIENT NEW HIGH MDM 60-74 MINUTES Rashaun Manning Jr., MD [address] [facility] [address] [place] [address] Referral ID Status Reason Start Date Expiration Date Visits Requested Visits Authorized [id number] Pending Review PCP Requested Referral 2 09/04/2023 1 1 Specialty Diagnoses / Procedures Referred By Contac t Referred To Contact MR IMAGING Diagnoses Vertebrobasilar artery syndrome Procedures MRA CAROTID WO IVCON MRA, NECK; W/O CONTRAST Rashaun Manning Jr., MD [address] [facility] [address] [place] [address] Mr Imaging Referral ID Status Reason Start Date Expiration Date Visits Requested Visits Authorized [id number] Pending Review Auto-Generat ed Referral 2 10/05/2023 1 1 Specialty Diagnoses / Procedures Referred By Contac t Referred To Contact MR IMAGING Diagnoses Vertebrobasilar artery syndrome Procedures MRA BRAIN WO IVCON MRA, HEAD W/O CONTRAST Rashaun Manning Jr., MD [address] [facility] [address] [place] [address] Mr Imaging Referral ID Status Reason Start Date Expiration Date Visits Requested Visits Authorized [id number] Pending Review Auto-Generat ed Referral 2 10/05/2023 1 1 Specialty Diagnoses / Procedures Referred By Contac t Referred To Contact MR IMAGING Diagnoses Vertebrobasilar artery syndrome Procedures MRI BRAIN WO IVCON MRI BRAIN BRAIN STEM W/O CONTRAST MATERIAL Rashaun Manning Jr., MD [address] [address] Mr Imaging Referral ID Status Reason Start Date Expiration Date Visits Requested Visits Authorized [id number] Pending Review Auto-Generat ed Referral 2 10/05/2023 1 1 Specialty Diagnoses / Procedures Referred By Contac t Referred To Contact [facility] Diagnoses Cervicalgia Procedures CONSULT TO PHYSICAL THERAPY PHYSICAL THERAPY EVALUATION HIGH COMPLEX 45 MINS THERAPEUTIC EXERCISES RE, EA 15 MIN. Renan Bowling MD [address] [facility] [address] [facility] [address] [address] Referral ID Status Reason Start Date Expiration Date Visits Requested Visits Authorized [id number] Authorized Auto-Generat ed Referral 11/19/2022 11/18/2023 99 99 Specialty Diagnoses / Procedures Referred By Contac t Referred To Contact MR IMAGING Diagnoses Low back pain with sciatica, sciatica laterality unspecified, unspecified back pain laterality, unspecified chronicity Procedures MRI LUMBAR SPINE WO IVCON MRI SPINAL CANAL LUMBAR W/O CONTRAST MATERIAL Renan Bowling MD [address] [address] Mr Imaging [facility]95 Referral ID Status Reason Start Date Expiration Date Visits Requested Visits Authorized [id number] Authorized Auto-Generat ed Referral 02/13/2024 03/14/2025 1 1 Referral ID Status Reason Start Date Expiration Date V isits Requested Visits Authorized [id number] Closed Auto-Generate d Referral 02/13/2024 03/14/2025 1 1 Specialty Diagnoses / Procedures Referred By Contac t Referred To Contact SPINE SURGERY Diagnoses Lumbar radiculopathy Low back pain with sciatica, sciatica laterality unspecified, unspecified back pain laterality, unspecified chronicity Lumbar spondylosis Procedures CONSULT TO SPINE SURGERY Krystin Hernandez, TANKER DRIVER.[employer]AR SALES ASSOCIATE [address] [place] [address] Blanco Hernandez MD [address] [address] Referral ID Status Reason Start Date Expiration Date V isits Requested Visits Authorized [id number] New Request 06/17/2024 08/16/2024 1 1 Specialty Diagnoses / Procedures Referred By Contac t Referred To Contact CT IMAGING Diagnoses Radiculopathy of lumbar region Procedures CT LUMBAR SPINE WO IVCON CT LUMBAR SPINE W/O CONTRAST MATERIAL Blanco Hernandez MD [address] [place] [address] Ct Imaging [place] [address] Referral ID Status Reason Start Date Expiration Date Visits Requested Visits Authorized [id number] Authorized Auto-Generat ed Referral 08/04/2024 09/03/2025 1 1 Referral ID Status Reason Start Date Expiration Date V isits Requested Visits Authorized [id number] Closed Auto-Generate d Referral 08/04/2024 09/03/2025 1 [...] section and content) DATE CREATED AUTHOR 05/10/2018 [facility] DATE CREATED AUTHOR AUTHOR'S ORGANIZ ATION 09/16/2021 [facility] DATE CREATED AUTHOR AUTHOR'S ORGANIZ ATION 10/19/2023 [facility] DATE CREATED AUTHOR AUTHOR'S ORGANIZ ATION 08/29/2024 [facility] DATE CREATED AUTHOR AUTHOR'S ORGANIZ ATION 01/15/2025 [facility] DATE CREATED AUTHOR AUTHOR'S ORGANIZ ATION 04/16/2025 [facility] DATE CREATED AUTHOR AUTHOR'S ORGANIZ ATION 04/23/2025 [facility] DATE CREATED AUTHOR AUTHOR'S ORGANIZ ATION 09/27/2025 [facility] Reason for Visit (unrecogniz ed [...] VISIT LEVEL 5 Galindo Yuan MD [address] [place] [address] Referral ID Status Reason Start Date Expiration Date Visits Requested Visits Authorized [id number] Pending Review PCP Requested Referral 11/24/2021 11/24/2022 1 1 Reason Comments Orders New DME Reason Comments nail care Specialty Diagnoses / Procedures Referred By Contac t Referred To Contact MR IMAGING Diagnoses Spinal stenosis of cervical region Procedures MRI CERVICAL SPINE WO IVCON MRI SPINAL CANAL CERVICAL W/O CONTRAST MATRL Rashaun Manning Jr., MD [address] [facility] [address] [place] [address] Mr Imaging Referral ID Status Reason Start Date Expiration Date V isits Requested Visits Authorized [id number] Closed Auto-Generate d Referral 05/01/2022 05/31/2023 1 [...] MDM 60-74 MINUTES Rashaun Manning Jr., MD [address] [facility] [address] [place] [address] Referral ID Status Reason Start Date Expiration Date Visits Requested Visits Authorized [id number] Pending Review PCP Requested Referral 2 09/04/2023 [...] 15 MIN. Renan Bowling MD [address] [facility] [place] [address] [facility] [place] [address] [place] [address] Referral ID Status Reason Start Date Expiration Date Visits Requested Visits Authorized [id number] Authorized Auto-Generat ed Referral 11/19/2022 11/18/2023 99 99 Reason Comments Orders TENS unit Reason Comments LESION, SKIN Reason Comments Mohs Specialty Diagnoses / Procedures Referred By Contac t Referred To Contact Dermatology Diagnoses Basal cell carcinoma of face Procedures MOHS OFFICE/OUTPATIENT NEW HIGH MDM 60-74 MINUTES Ruth Perla DO [address] [place] [address] Referral ID Status Reason Start Date Expiration Date Visits Requested Visits Authorized [id number] Pending Review PCP Requested Referral 03/15/2023 03/14/2024 [...] SCREEN STUDY AAA Galindo Yuan MD [address] [place] [address] [place] [address] Referral ID Status Reason Start Date Expiration Date V isits Requested Visits Authorized [id number] Closed Auto-Generate d Referral 12/20/2022 01/19/2024 1 [...] CONTRAST MATERIAL Renan Bowling MD [address] [facility] [place] [address] [place] [address] Referral ID Status Reason Start Date Expiration Date V isits Requested Visits Authorized [id number] Closed Auto-Generate d Referral 02/13/2024 03/14/2025 1 1 Reason Comments Results Lumbar MRI Reason Comments Cardiac Clearance Anticoagulation Specialty Diagnoses / Procedures Referred By Contac t Referred To Contact Dermatology Diagnoses Basal cell carcinoma (BCC) of left yazdanism region Procedures MOHS OFFICE/OUTPATIENT [facility] 60 MINUTES Ruth Perla DO [address] [place] [address] Referral ID Status Reason Start Date Expiration Date V isits Requested Visits Authorized [id number] Closed PCP Requested Referral 02/19/2024 02/18/2025 1 [...] spondylosis Procedures CONSULT TO SPINE SURGERY OFFICE/OUTPATIENT [facility] MDM 60 MINUTES Krystin Hernandez, TANKER DRIVER.SOLAR SALES ASSOCIATE [address] [place] [address] Blanco Hernandez MD [address] [address] Referral ID Status Reason Start Date Expiration Date Visits Re quested Visits Authorized [id number] Closed 07/08/2024 11/18/2024 [address] Specialty Diagnoses / Procedures Referred By Contac t Referred To Contact CT IMAGING Diagnoses Radiculopathy of lumbar region Procedures CT LUMBAR SPINE WO IVCON CT LUMBAR SPINE W/O CONTRAST MATERIAL Blanco Hernandez MD [address] [place] [address] Ct Imaging [place] [address] Referral ID Status Reason Start Date Expiration Date V isits Requested Visits Authorized [id number] Closed Auto-Generate d Referral 08/04/2024 09/03/2025 1 [...] Date Comments Refill Request 11/25/2024 Reason Comments [employer] - Other [employer] Reason Comments Recheck [...] RE, EA 15 MIN. Galindo Yuan MD [address] [place] [address] Phone: tel: fax: [facility] [address] [place] [address] Referral ID Status Reason Start Date Expiration Date Visits Requested Visits Authorized [id number] Authorized Auto-Generat ed Referral 11/19/2024 11/18/2025 99 [...] or prosecute any alcohol or drug abuse patient.[facility] Center[facility] the event this information is protected by the Federal Confidentiality of Alcohol and Drug Abuse Patient Records regulations: The Federal rules restrict any use of the information to criminally investigate or prosecute any alcohol or drug abuse patient.[facility] CenterIn the event this information is protected by the Federal Confidentiality of Alcohol and Drug Abuse Patient Records regulations: The Federal rules restrict any use of the information to criminally investigate or prosecute any alcohol or drug abuse patient.[facility] CenterIn the event this information is protected by the Federal Confidentiality of Alcohol and Drug Abuse Patient Records regulations: The Federal rules restrict any use of the information to criminally investigate or prosecute any alcohol or drug abuse patient.[facility] CenterIn the event this information is protected by the Federal Confidentiality of Alcohol and Drug Abuse Patient Records regulations: The Federal rules restrict any use of the information to criminally investigate or prosecute any alcohol or drug abuse patient.[facility] CenterIn the event this information is protected by the Federal Confidentiality of Alcohol and Drug Abuse Patient Records regulations: The Federal rules restrict any use of the information to criminally investigate or prosecute any alcohol or drug abuse patient.[facility] CenterIn the event this information is protected by the Federal Confidentiality of Alcohol and Drug Abuse Patient Records regulations: The Federal rules restrict any use of the information to criminally investigate or prosecute any alcohol or drug abuse patient.[facility] CenterIn the event this information is protected by the Federal Confidentiality of Alcohol and Drug Abuse Patient Records regulations: The Federal rules restrict any use of the information to criminally investigate or prosecute any alcohol or drug abuse patient.[facility] CenterIn the event this information is protected by the Federal Confidentiality of Alcohol and Drug Abuse Patient Records regulations: The Federal rules restrict any use of the information to criminally investigate or prosecute any alcohol or drug abuse patient.[facility] CenterIn the event this information is protected by the Federal Confidentiality of Alcohol and Drug Abuse Patient Records regulations: The Federal rules restrict any use of the information to criminally investigate or prosecute any alcohol or drug abuse patient.[facility] CenterIn the event this information is protected by the Federal Confidentiality of Alcohol and Drug Abuse Patient Records regulations: The Federal rules restrict any use of the information to criminally investigate or prosecute any alcohol or drug abuse patient.[facility] CenterIn the event this information is protected by the Federal Confidentiality of Alcohol and Drug Abuse Patient Records regulations: The Federal rules restrict any use of the information to criminally investigate or prosecute any alcohol or drug abuse patient.[facility] CenterIn the event this information is protected by the Federal Confidentiality of Alcohol and Drug Abuse Patient Records regulations: The Federal rules restrict any use of the information to criminally investigate or prosecute any alcohol or drug abuse patient.[facility] CenterIn the event this information is protected by the Federal Confidentiality of Alcohol and Drug Abuse Patient Records regulations: The Federal rules restrict any use of the information to criminally investigate or prosecute any alcohol or drug abuse patient.[facility] CenterIn the event this information is protected by the Federal Confidentiality of Alcohol and Drug Abuse Patient Records regulations: The Federal rules restrict any use of the information to criminally investigate or prosecute any alcohol or drug abuse patient.[facility] CenterIn the event this information is protected by the Federal Confidentiality of Alcohol and Drug Abuse Patient Records regulations: The Federal rules restrict any use of the information to criminally investigate or prosecute any alcohol or drug abuse patient.[facility] CenterIn the event this information is protected by the Federal Confidentiality of Alcohol and Drug Abuse Patient Records regulations: The Federal rules restrict any use of the information to criminally investigate or prosecute any alcohol or drug abuse patient.[facility] CenterIn the event this information is protected by the Federal Confidentiality of Alcohol and Drug Abuse Patient Records regulations: The Federal rules restrict any use of the information to criminally investigate or prosecute any alcohol or drug abuse patient.[facility] CenterIn the event this information is protected by the Federal Confidentiality of Alcohol and Drug Abuse Patient Records regulations: The Federal rules restrict any use of the information to criminally investigate or prosecute any alcohol or drug abuse patient.[facility] CenterIn the event this information is protected by the Federal Confidentiality of Alcohol and Drug Abuse Patient Records regulations: The Federal rules restrict any use of the information to criminally investigate or prosecute any alcohol or drug abuse patient.[facility] CenterIn the event this information is protected by the Federal Confidentiality of Alcohol and Drug Abuse Patient Records regulations: The Federal rules restrict any use of the information to criminally investigate or prosecute any alcohol or drug abuse patient.[facility] CenterIn the event this information is protected by the Federal Confidentiality of Alcohol and Drug Abuse Patient Records regulations: The Federal rules restrict any use of the information to criminally investigate or prosecute any alcohol or drug abuse patient.[facility] CenterIn the event this information is protected by the Federal Confidentiality of Alcohol and Drug Abuse Patient Records regulations: The Federal rules restrict any use of the information to criminally investigate or prosecute any alcohol or drug abuse patient.[facility] CenterIn the event this information is protected by the Federal Confidentiality of Alcohol and Drug Abuse Patient Records regulations: The Federal rules restrict any use of the information to criminally investigate or prosecute any alcohol or drug abuse patient.[facility] CenterIn the event this information is protected by the Federal Confidentiality of Alcohol and Drug Abuse Patient Records regulations: The Federal rules restrict any use of the information to criminally investigate or prosecute any alcohol or drug abuse patient.[facility] CenterIn the event this information is protected by the Federal Confidentiality of Alcohol and Drug Abuse Patient Records regulations: The Federal rules restrict any use of the information to criminally investigate or prosecute any alcohol or drug abuse patient.[facility] CenterIn the event this information is protected by the Federal Confidentiality of Alcohol and Drug Abuse Patient Records regulations: The Federal rules restrict any use of the information to criminally investigate or prosecute any alcohol or drug abuse patient.[facility] CenterIn the event this information is protected by the Federal Confidentiality of Alcohol and Drug Abuse Patient Records regulations: The Federal rules restrict any use of the information to criminally investigate or prosecute any alcohol or drug abuse patient.[facility] CenterIn the event this information is protected by the Federal Confidentiality of Alcohol and Drug Abuse Patient Records regulations: The Federal rules restrict any use of the information to criminally investigate or prosecute any alcohol or drug abuse patient.[facility] CenterIn the event this information is protected by the Federal Confidentiality of Alcohol and Drug Abuse Patient Records regulations: The Federal rules restrict any use of the information to criminally investigate or prosecute any alcohol or drug abuse patient.[facility] CenterIn the event this information is protected by the Federal Confidentiality of Alcohol and Drug Abuse Patient Records regulations: The Federal rules restrict any use of the information to criminally investigate or prosecute any alcohol or drug abuse patient.[facility] CenterIn the event this information is protected by the Federal Confidentiality of Alcohol and Drug Abuse Patient Records regulations: The Federal rules restrict any use of the information to criminally investigate or prosecute any alcohol or drug abuse patient.[facility] CenterIn the event this information is protected by the Federal Confidentiality of Alcohol and Drug Abuse Patient Records regulations: The Federal rules restrict any use of the information to criminally investigate or prosecute any alcohol or drug abuse patient.[facility] CenterIn the event this information is protected by the Federal Confidentiality of Alcohol and Drug Abuse Patient Records regulations: The Federal rules restrict any use of the information to criminally investigate or prosecute any alcohol or drug abuse patient.[facility] CenterIn the event this information is protected by the Federal Confidentiality of Alcohol and Drug Abuse Patient Records regulations: The Federal rules restrict any use of the information to criminally investigate or prosecute any alcohol or drug abuse patient.[facility] CenterIn the event this information is protected by the Federal Confidentiality of Alcohol and Drug Abuse Patient Records regulations: The Federal rules restrict any use of the information to criminally investigate or prosecute any alcohol or drug abuse patient.[facility] CenterIn the event this information is protected by the Federal Confidentiality of Alcohol and Drug Abuse Patient Records regulations: The Federal rules restrict any use of the information to criminally investigate or prosecute any alcohol or drug abuse patient.[facility] CenterIn the event this information is protected by the Federal Confidentiality of Alcohol and Drug Abuse Patient Records regulations: The Federal rules restrict any use of the information to criminally investigate or prosecute any alcohol or drug abuse patient.[facility] CenterIn the event this information is protected by the Federal Confidentiality of Alcohol and Drug Abuse Patient Records regulations: The Federal rules restrict any use of the information to criminally investigate or prosecute any alcohol or drug abuse patient.[facility] CenterIn the event this information is protected by the Federal Confidentiality of Alcohol and Drug Abuse Patient Records regulations: The Federal rules restrict any use of the information to criminally investigate or prosecute any alcohol or drug abuse patient.[facility] CenterIn the event this information is protected by the Federal Confidentiality of Alcohol and Drug Abuse Patient Records regulations: The Federal rules restrict any use of the information to criminally investigate or prosecute any alcohol or drug abuse patient.[facility] CenterIn the event this information is protected by the Federal Confidentiality of Alcohol and Drug Abuse Patient Records regulations: The Federal rules restrict any use of the information to criminally investigate or prosecute any alcohol or drug abuse patient.[facility] CenterIn the event this information is protected by the Federal Confidentiality of Alcohol and Drug Abuse Patient Records regulations: The Federal rules restrict any use of the information to criminally investigate or prosecute any alcohol or drug abuse patient.[facility] CenterIn the event this information is protected by the Federal Confidentiality of Alcohol and Drug Abuse Patient Records regulations: The Federal rules restrict any use of the information to criminally investigate or prosecute any alcohol or drug abuse patient.[facility] CenterIn the event this information is protected by the Federal Confidentiality of Alcohol and Drug Abuse Patient Records regulations: The Federal rules restrict any use of the information to criminally investigate or prosecute any alcohol or drug abuse patient.[facility] CenterIn the event this information is protected by the Federal Confidentiality of Alcohol and Drug Abuse Patient Records regulations: The Federal rules restrict any use of the information to criminally investigate or prosecute any alcohol or drug abuse patient.[facility] CenterIn the event this information is protected by the Federal Confidentiality of Alcohol and Drug Abuse Patient Records regulations: The Federal rules restrict any use of the information to criminally investigate or prosecute any alcohol or drug abuse patient.[facility] CenterIn the event this information is protected by the Federal Confidentiality of Alcohol and Drug Abuse Patient Records regulations: The Federal rules restrict any use of the information to criminally investigate or prosecute any alcohol or drug abuse patient.[facility] CenterIn the event this information is protected by the Federal Confidentiality of Alcohol and Drug Abuse Patient Records regulations: The Federal rules restrict any use of the information to criminally investigate or prosecute any alcohol or drug abuse patient.[facility] CenterIn the event this information is protected by the Federal Confidentiality of Alcohol and Drug Abuse Patient Records regulations: The Federal rules restrict any use of the information to criminally investigate or prosecute any alcohol or drug abuse patient.[facility] CenterIn the event this information is protected by the Federal Confidentiality of Alcohol and Drug Abuse Patient Records regulations: The Federal rules restrict any use of the information to criminally investigate or prosecute any alcohol or drug abuse patient.[facility] CenterIn the event this information is protected by the Federal Confidentiality of Alcohol and Drug Abuse Patient Records regulations: The Federal rules restrict any use of the information to criminally investigate or prosecute any alcohol or drug abuse patient.[facility] CenterIn the event this information is protected by the Federal Confidentiality of Alcohol and Drug Abuse Patient Records regulations: The Federal rules restrict any use of the information to criminally investigate or prosecute any alcohol or drug abuse patient.[facility] CenterIn the event this information is protected by the Federal Confidentiality of Alcohol and Drug Abuse Patient Records regulations: The Federal rules restrict any use of the information to criminally investigate or prosecute any alcohol or drug abuse patient.[facility] CenterIn the event this information is protected by the Federal Confidentiality of Alcohol and Drug Abuse Patient Records regulations: The Federal rules restrict any use of the information to criminally investigate or prosecute any alcohol or drug abuse patient.[facility] CenterIn the event this information is protected by the Federal Confidentiality of Alcohol and Drug Abuse Patient Records regulations: The Federal rules restrict any use of the information to criminally investigate or prosecute any alcohol or drug abuse patient.[facility] CenterIn the event this information is protected by the Federal Confidentiality of Alcohol and Drug Abuse Patient Records regulations: The Federal rules restrict any use of the information to criminally investigate or prosecute any alcohol or drug abuse patient.[facility] CenterIn the event this information is protected by the Federal Confidentiality of Alcohol and Drug Abuse Patient Records regulations: The Federal rules restrict any use of the information to criminally investigate or prosecute any alcohol or drug abuse patient.[facility] CenterIn the event this information is protected by the Federal Confidentiality of Alcohol and Drug Abuse Patient Records regulations: The Federal rules restrict any use of the information to criminally investigate or prosecute any alcohol or drug abuse patient.[facility] CenterIn the event this information is protected by the Federal Confidentiality of Alcohol and Drug Abuse Patient Records regulations: The Federal rules restrict any use of the information to criminally investigate or prosecute any alcohol or drug abuse patient.[facility] CenterIn the event this information is protected by the Federal Confidentiality of Alcohol and Drug Abuse Patient Records regulations: The Federal rules restrict any use of the information to criminally investigate or prosecute any alcohol or drug abuse patient.[facility] CenterIn the event this information is protected by the Federal Confidentiality of Alcohol and Drug Abuse Patient Records regulations: The Federal rules restrict any use of the information to criminally investigate or prosecute any alcohol or drug abuse patient.[facility] CenterIn the event this information is protected by the Federal Confidentiality of Alcohol and Drug Abuse Patient Records regulations: The Federal rules restrict any use of the information to criminally investigate or prosecute any alcohol or drug abuse patient.[facility] CenterIn the event this information is protected by the Federal Confidentiality of Alcohol and Drug Abuse Patient Records regulations: The Federal rules restrict any use of the information to criminally investigate or prosecute any alcohol or drug abuse patient.[facility] CenterIn the event this information is protected by the Federal Confidentiality of Alcohol and Drug Abuse Patient Records regulations: The Federal rules restrict any use of the information to criminally investigate or prosecute any alcohol or drug abuse patient.[facility] CenterIn the event this information is protected by the Federal Confidentiality of Alcohol and Drug Abuse Patient Records regulations: The Federal rules restrict any use of the information to criminally investigate or prosecute any alcohol or drug abuse patient.[facility] CenterIn the event this information is protected by the Federal Confidentiality of Alcohol and Drug Abuse Patient Records regulations: The Federal rules restrict any use of the information to criminally investigate or prosecute any alcohol or drug abuse patient.[facility] CenterIn the event this information is protected by the Federal Confidentiality of Alcohol and Drug Abuse Patient Records regulations: The Federal rules restrict any use of the information to criminally investigate or prosecute any alcohol or drug abuse patient.[facility] CenterIn the event this information is protected by the Federal Confidentiality of Alcohol and Drug Abuse Patient Records regulations: The Federal rules restrict any use of the information to criminally investigate or prosecute any alcohol or drug abuse patient.[facility] CenterIn the event this information is protected by the Federal Confidentiality of Alcohol and Drug Abuse Patient Records regulations: The Federal rules restrict any use of the information to criminally investigate or prosecute any alcohol or drug abuse patient.[facility] CenterIn the event this information is protected by the Federal Confidentiality of Alcohol and Drug Abuse Patient Records regulations: The Federal rules restrict any use of the information to criminally investigate or prosecute any alcohol or drug abuse patient.[facility] CenterIn the event this information is protected by the Federal Confidentiality of Alcohol and Drug Abuse Patient Records regulations: The Federal rules restrict any use of the information to criminally investigate or prosecute any alcohol or drug abuse patient.[facility] CenterIn the event this information is protected by the Federal Confidentiality of Alcohol and Drug Abuse Patient Records regulations: The Federal rules restrict any use of the information to criminally investigate or prosecute any alcohol or drug abuse patient.[facility] CenterIn the event this information is protected by the Federal Confidentiality of Alcohol and Drug Abuse Patient Records regulations: The Federal rules restrict any use of the information to criminally investigate or prosecute any alcohol or drug abuse patient.[facility] CenterIn the event this information is protected by the Federal Confidentiality of Alcohol and Drug Abuse Patient Records regulations: The Federal rules restrict any use of the information to criminally investigate or prosecute any alcohol or drug abuse patient.[facility] CenterIn the event this information is protected by the Federal Confidentiality of Alcohol and Drug Abuse Patient Records regulations: The Federal rules restrict any use of the information to criminally investigate or prosecute any alcohol or drug abuse patient.[facility] CenterIn the event this information is protected by the Federal Confidentiality of Alcohol and Drug Abuse Patient Records regulations: The Federal rules restrict any use of the information to criminally investigate or prosecute any alcohol or drug abuse patient.[facility] CenterIn the event this information is protected by the Federal Confidentiality of Alcohol and Drug Abuse Patient Records regulations: The Federal rules restrict any use of the information to criminally investigate or prosecute any alcohol or drug abuse patient.[facility] CenterIn the event this information is protected by the Federal Confidentiality of Alcohol and Drug Abuse Patient Records regulations: The Federal rules restrict any use of the information to criminally investigate or prosecute any alcohol or drug abuse patient.[facility] CenterIn the event this information is protected by the Federal Confidentiality of Alcohol and Drug Abuse Patient Records regulations: The Federal rules restrict any use of the information to criminally investigate or prosecute any alcohol or drug abuse patient.[facility] CenterIn the event this information is protected by the Federal Confidentiality of Alcohol and Drug Abuse Patient Records regulations: The Federal rules restrict any use of the information to criminally investigate or prosecute any alcohol or drug abuse patient.[facility] CenterIn the event this information is protected by the Federal Confidentiality of Alcohol and Drug Abuse Patient Records regulations: The Federal rules restrict any use of the information to criminally investigate or prosecute any alcohol or drug abuse patient.[facility] CenterIn the event this information is protected by the Federal Confidentiality of Alcohol and Drug Abuse Patient Records regulations: The Federal rules restrict any use of the information to criminally investigate or prosecute any alcohol or drug abuse patient.[facility] CenterIn the event this information is protected by the Federal Confidentiality of Alcohol and Drug Abuse Patient Records regulations: The Federal rules restrict any use of the information to criminally investigate or prosecute any alcohol or drug abuse patient.[facility] CenterIn the event this information is protected by the Federal Confidentiality of Alcohol and Drug Abuse Patient Records regulations: The Federal rules restrict any use of the information to criminally investigate or prosecute any alcohol or drug abuse patient.[facility] CenterIn the event this information is protected by the Federal Confidentiality of Alcohol and Drug Abuse Patient Records regulations: The Federal rules restrict any use of the information to criminally investigate or prosecute any alcohol or drug abuse patient.[facility] CenterIn the event this information is protected by the Federal Confidentiality of Alcohol and Drug Abuse Patient Records regulations: The Federal rules restrict any use of the information to criminally investigate or prosecute any alcohol or drug abuse patient.[facility] CenterIn the event this information is protected by the Federal Confidentiality of Alcohol and Drug Abuse Patient Records regulations: The Federal rules restrict any use of the information to criminally investigate or prosecute any alcohol or drug abuse patient.[facility] CenterIn the event this information is protected by the Federal Confidentiality of Alcohol and Drug Abuse Patient Records regulations: The Federal rules restrict any use of the information to criminally investigate or prosecute any alcohol or drug abuse patient.[facility] CenterIn the event this information is protected by the Federal Confidentiality of Alcohol and Drug Abuse Patient Records regulations: The Federal rules restrict any use of the information to criminally investigate or prosecute any alcohol or drug abuse patient.[facility] CenterIn the event this information is protected by the Federal Confidentiality of Alcohol and Drug Abuse Patient Records regulations: The Federal rules restrict any use of the information to criminally investigate or prosecute any alcohol or drug abuse patient.[facility] CenterIn the event this information is protected by the Federal Confidentiality of Alcohol and Drug Abuse Patient Records regulations: The Federal rules restrict any use of the information to criminally investigate or prosecute any alcohol or drug abuse patient.[facility] CenterIn the event this information is protected by the Federal Confidentiality of Alcohol and Drug Abuse Patient Records regulations: The Federal rules restrict any use of the information to criminally investigate or prosecute any alcohol or drug abuse patient.[facility] CenterIn the event this information is protected by the Federal Confidentiality of Alcohol and Drug Abuse Patient Records regulations: The Federal rules restrict any use of the information to criminally investigate or prosecute any alcohol or drug abuse patient.[facility] CenterIn the event this information is protected by the Federal Confidentiality of Alcohol and Drug Abuse Patient Records regulations: The Federal rules restrict any use of the information to criminally investigate or prosecute any alcohol or drug abuse patient.[facility] CenterIn the event this information is protected by the Federal Confidentiality of Alcohol and Drug Abuse Patient Records regulations: The Federal rules restrict any use of the information to criminally investigate or prosecute any alcohol or drug abuse patient.[facility] CenterIn the event this information is protected by the Federal Confidentiality of Alcohol and Drug Abuse Patient Records regulations: The Federal rules restrict any use of the information to criminally investigate or prosecute any alcohol or drug abuse patient.[facility] CenterIn the event this information is protected by the Federal Confidentiality of Alcohol and Drug Abuse Patient Records regulations: The Federal rules restrict any use of the information to criminally investigate or prosecute any alcohol or drug abuse patient.[facility] CenterIn the event this information is protected by the Federal Confidentiality of Alcohol and Drug Abuse Patient Records regulations: The Federal rules restrict any use of the information to criminally investigate or prosecute any alcohol or drug abuse patient.[facility] CenterIn the event this information is protected by the Federal Confidentiality of Alcohol and Drug Abuse Patient Records regulations: The Federal rules restrict any use of the information to criminally investigate or prosecute any alcohol or drug abuse patient.[facility] CenterIn the event this information is protected by the Federal Confidentiality of Alcohol and Drug Abuse Patient Records regulations: The Federal rules restrict any use of the information to criminally investigate or prosecute any alcohol or drug abuse patient.[facility] CenterIn the event this information is protected by the Federal Confidentiality of Alcohol and Drug Abuse Patient Records regulations: The Federal rules restrict any use of the information to criminally investigate or prosecute any alcohol or drug abuse patient.[facility] CenterIn the event this information is protected by the Federal Confidentiality of Alcohol and Drug Abuse Patient Records regulations: The Federal rules restrict any use of the information to criminally investigate or prosecute any alcohol or drug abuse patient.[facility] CenterIn the event this information is protected by the Federal Confidentiality of Alcohol and Drug Abuse Patient Records regulations: The Federal rules restrict any use of the information to criminally investigate or prosecute any alcohol or drug abuse patient.[facility] CenterIn the event this information is protected by the Federal Confidentiality of Alcohol and Drug Abuse Patient Records regulations: The Federal rules restrict any use of the information to criminally investigate or prosecute any alcohol or drug abuse patient.[facility] CenterIn the event this information is protected by the Federal Confidentiality of Alcohol and Drug Abuse Patient Records regulations: The Federal rules restrict any use of the information to criminally investigate or prosecute any alcohol or drug abuse patient.[facility] CenterIn the event this information is protected by the Federal Confidentiality of Alcohol and Drug Abuse Patient Records regulations: The Federal rules restrict any use of the information to criminally investigate or prosecute any alcohol or drug abuse patient.[facility] CenterIn the event this information is protected by the Federal Confidentiality of Alcohol and Drug Abuse Patient Records regulations: The Federal rules restrict any use of the information to criminally investigate or prosecute any alcohol or drug abuse patient.[facility] CenterIn the event this information is protected by the Federal Confidentiality of Alcohol and Drug Abuse Patient Records regulations: The Federal rules restrict any use of the information to criminally investigate or prosecute any alcohol or drug abuse patient.[facility] CenterIn the event this information is protected by the Federal Confidentiality of Alcohol and Drug Abuse Patient Records regulations: The Federal rules restrict any use of the information to criminally investigate or prosecute any alcohol or drug abuse patient.[facility] CenterIn the event this information is protected by the Federal Confidentiality of Alcohol and Drug Abuse Patient Records regulations: The Federal rules restrict any use of the information to criminally investigate or prosecute any alcohol or drug abuse patient.[facility] CenterIn the event this information is protected by the Federal Confidentiality of Alcohol and Drug Abuse Patient Records regulations: The Federal rules restrict any use of the information to criminally investigate or prosecute any alcohol or drug abuse patient.[facility] CenterIn the event this information is protected by the Federal Confidentiality of Alcohol and Drug Abuse Patient Records regulations: The Federal rules restrict any use of the information to criminally investigate or prosecute any alcohol or drug abuse patient.[facility] CenterIn the event this information is protected by the Federal Confidentiality of Alcohol and Drug Abuse Patient Records regulations: The Federal rules restrict any use of the information to criminally investigate or prosecute any alcohol or drug abuse patient.[facility] CenterIn the event this information is protected by the Federal Confidentiality of Alcohol and Drug Abuse Patient Records regulations: The Federal rules restrict any use of the information to criminally investigate or prosecute any alcohol or drug abuse patient.[facility] CenterIn the event this information is protected by the Federal Confidentiality of Alcohol and Drug Abuse Patient Records regulations: The Federal rules restrict any use of the information to criminally investigate or prosecute any alcohol or drug abuse patient.[facility] Care Teams (unrecognized sec tion and content) [employer] Relationship Specialty Start Date End Date Galindo Yuan MD [address] [place], [place] [id number] PCP - General Internal Medicine 06/19/03 Sakshi Sanz MD [address] [place] [address] Primary Staff Physician Cardiology 02/04/19 [employer] Relationship Specialty Start Date End Date Galindo Yuan MD [address] [place], [place] [id number] PCP - General Internal Medicine 06/19/03 Sakshi Sanz MD [address] [place] [address] Primary Staff Physician Cardiology 02/04/19 Boat Camp Operator Relationship Specialty Start Date End Date Galindo Yuan MD [address] [place] [address] PCP - General Internal Medicine 06/19/03 Sakshi Sanz MD [address] [place] [address] Primary Staff Physician Cardiology 02/04/19 Boat Camp Operator Relationship Specialty Start Date End Date Galindo Yuan MD [address] [place] [address] PCP - General Internal Medicine 06/19/03 Sakshi Sanz MD [address] [place] [address] Primary Staff Physician Cardiology 02/04/19 Boat Camp Operator Relationship Specialty Start Date End Date Galindo Yuan MD [address] [place] [address] PCP - General Internal Medicine 06/19/03 Sakshi Sanz MD [address] [place] [address] Primary Staff Physician Cardiology 02/04/19 Boat Camp Operator Relationship Specialty Start Date End Date Galindo Yuan MD [address] [facility] [address] PCP - General Internal Medicine 06/19/03 Sakshi Sanz MD [address] [place] [address] Primary Staff Physician Cardiology 02/04/19 Boat Camp Operator Relationship Specialty Start Date End Date Galindo Yuan MD [address] [place] [address] PCP - General Internal Medicine 06/19/03 Sakshi Sanz MD [address] [place] [address] Primary Staff Physician Cardiology 02/04/19 Boat Camp Operator Relationship Specialty Start Date End Date Galindo Yuan MD [address] [place] [address] PCP - General Internal Medicine 06/19/03 Sakshi Sanz MD [address] [place] [address] Primary Staff Physician Cardiology 02/04/19 Boat Camp Operator Relationship Specialty Start Date End Date Galindo Yuan MD [address] [place] [address] PCP - General Internal Medicine 06/19/03 Sakshi Sanz MD [address] [place] [address] Primary Staff Physician Cardiology 02/04/19 Boat Camp Operator Relationship Specialty Start Date End Date Galindo Yuan MD [address] [place] [address] PCP - General Internal Medicine 06/19/03 Sakshi Sanz MD [address] [place] [address] Primary Staff Physician Cardiology 02/04/19 Boat Camp Operator Relationship Specialty Start Date End Date Galindo Yuan MD [address] [place] [address] PCP - General Internal Medicine 06/19/03 Sakshi Sanz MD [address] [place] [address] Primary Staff Physician Cardiology 02/04/19 Boat Camp Operator Relationship Specialty Start Date End Date Galindo Yuan MD [address] [place] [address] PCP - General Internal Medicine 06/19/03 Sakshi Sanz MD [address] [place] [address] Primary Staff Physician Cardiology 02/04/19 Boat Camp Operator Relationship Specialty Start Date End Date Galindo Yuan MD [address] [place] [address] PCP - General Internal Medicine 06/19/03 Sakshi Sanz MD [address] [place] [address] Primary Staff Physician Cardiology 02/04/19 Boat Camp Operator Relationship Specialty Start Date End Date Galindo Yuan MD [address] [place] [address] PCP - General Internal Medicine 06/19/03 Sakshi Sanz MD [address] [place] [address] Primary Staff Physician Cardiology 02/04/19 Boat Camp Operator Relationship Specialty Start Date End Date Galindo Yuan MD [address] [place] [address] PCP - General Internal Medicine 06/19/03 Sakshi Sanz MD [address] [place] [address] Primary Staff Physician Cardiology 02/04/19 Boat Camp Operator Relationship Specialty Start Date End Date Galindo Yuan MD [address] [place] [address] PCP - General Internal Medicine 06/19/03 Sakshi Sanz MD [address] [place] [address] Primary Staff Physician Cardiology 02/04/19 Boat Camp Operator Relationship Specialty Start Date End Date Galindo Yuan MD [address] [place] [address] PCP - General Internal Medicine 06/19/03 Sakshi Sanz MD [address] [place] [address] Primary Staff Physician Cardiology 02/04/19 Boat Camp Operator Relationship Specialty Start Date End Date Galindo Yuan MD [address] [place] [address] PCP - General Internal Medicine 06/19/03 Sakshi Sanz MD [address] [place] [address] Primary Staff Physician Cardiology 02/04/19 Boat Camp Operator Relationship Specialty Start Date End Date Galindo Yuan MD [address] [place] [address] PCP - General Internal Medicine 06/19/03 Sakshi Sanz MD [address] [place] [address] Primary Staff Physician Cardiology 02/04/19 Boat Camp Operator Relationship Specialty Start Date End Date Galindo Yuan MD [address] [place] [address] PCP - General Internal Medicine 06/19/03 Sakshi Sanz MD [address] [facility] [address] Primary Staff Physician Cardiology 02/04/19 Boat Camp Operator Relationship Specialty Start Date End Date Galindo Yuan MD [address] [place] [address] PCP - General Internal Medicine 06/19/03 Sakshi Sanz MD [address] [place] [address] Primary Staff Physician Cardiology 02/04/19 Team Status: Active Member Role Status Dates Dr. Galindo Yuan MD Family Provider Active Dr. Galindo Yuan MD Primary Care Provider Active Team Status: Inactive Member Role Status Dates Dr. Galindo Yuan MD Primary Care Provider Active Dr. Gwendolyn Lopes , Emergency Provider Active [employer] Relationship Specialty Start Date End Date Galindo Yuan MD [address] [place] [address] PCP - General Internal Medicine 06/19/03 Sakshi Sanz MD [address] [place] [address] Primary Staff Physician Cardiology 02/04/19 Boat Camp Operator Relationship Specialty Start Date End Date Galindo Yuan MD [address] [place] [address] PCP - General Internal Medicine 06/19/03 Sakshi Sanz MD [address] [place] [address] Primary Staff Physician Cardiology 02/04/19 Boat Camp Operator Relationship Specialty Start Date End Date Galindo Yuan MD [address] [place] [address] PCP - General Internal Medicine 06/19/03 Sakshi Sanz MD [address] [place] [address] Primary Staff Physician Cardiology 02/04/19 Boat Camp Operator Relationship Specialty Start Date End Date Galindo Yuan MD [address] [place] [address] PCP - General Internal Medicine 06/19/03 Sakshi Sanz MD [address] [place] [address] Primary Staff Physician Cardiology 02/04/19 Team Status: Inactive Member Role Status Dates Dr. Galindo Yuan MD Primary Care Provider Active Dr. Koffi Rome DO Emergency Provider Active Boat Camp Operator Relationship Specialty Start Date End Date Galindo Yuan MD [address] [place] [address] PCP - General Internal Medicine 06/19/03 Sakshi Sanz MD [address] [place] [address] Primary Staff Physician Cardiology 02/04/19 Boat Camp Operator Relationship Specialty Start Date End Date Galindo Yuan MD [address] [place] [address] PCP - General Internal Medicine 06/19/03 Sakshi Sanz MD [address] [place] [address] Primary Staff Physician Cardiology 02/04/19 Boat Camp Operator Relationship Specialty Start Date End Date Galindo Yuan MD [address] [place] [address] PCP - General Internal Medicine 06/19/03 Sakshi Sanz MD [address] [place] [address] Primary Staff Physician Cardiology 02/04/19 Boat Camp Operator Relationship Specialty Start Date End Date Galindo Yuan MD [address] [place] [address] PCP - General Internal Medicine 06/19/03 Sakshi Sanz MD [address] [place] [address] Primary Staff Physician Cardiology 02/04/19 Boat Camp Operator Relationship Specialty Start Date End Date Galindo Yuan MD [address] [place] [address] PCP - General Internal Medicine 06/19/03 Sakshi Sanz MD [address] [place] [address] Primary Staff Physician Cardiology 02/04/19 Boat Camp Operator Relationship Specialty Start Date End Date Galindo Yuan MD [address] [place] [address] PCP - General Internal Medicine 06/19/03 Sakshi Sanz MD [address] [place] [address] Primary Staff Physician Cardiology 02/04/19 Team Status: Inactive Member Role Status Dates Dr. Galindo Yuan MD Primary Care Provider Active Dr. Koffi Rome DO Attending Provider, Emergency Provider Active Team Status: Inactive Member Role Status Dates Dr. Galindo Yuan MD Primary Care Provider Active Dr. Vicente Davila DO Emergency Provider Active Boat Camp Operator Relationship Specialty Start Date End Date Galindo Yuan MD [address] [place] [address] PCP - General Internal Medicine 06/19/03 Sakshi Sanz MD [address] [place] [address] Primary Staff Physician Cardiology 02/04/19 Boat Camp Operator Relationship Specialty Start Date End Date Galindo Yuan MD [address] [place] [address] PCP - General Internal Medicine 06/19/03 Sakshi Sanz MD [address] [place] [address] Primary Staff Physician Cardiology 02/04/19 Boat Camp Operator Relationship Specialty Start Date End Date Galindo Yuan MD [address] [place] [address] PCP - General Internal Medicine 06/19/03 Sakshi Sanz MD [address] [place] [address] Primary Staff Physician Cardiology 02/04/19 Boat Camp Operator Relationship Specialty Start Date End Date Galindo Yuan MD [address] [place] [address] PCP - General Internal Medicine 06/19/03 Sakshi Sanz MD [address] [place] [address] Primary Staff Physician Cardiology 02/04/19 Boat Camp Operator Relationship Specialty Start Date End Date Galindo Yuan MD [address] [place] [address] PCP - General Internal Medicine 06/19/03 Sakshi Sanz MD [address] [place] [address] Primary Staff Physician Cardiology 02/04/19 Boat Camp Operator Relationship Specialty Start Date End Date Galindo Yuan MD [address] [place] [address] PCP - General Internal Medicine 06/19/03 Sakshi Sanz MD [address] [place] [address] Primary Staff Physician Cardiology 02/04/19 Boat Camp Operator Relationship Specialty Start Date End Date Galindo Yuan MD [address] [place] [address] PCP - General Internal Medicine 06/19/03 Sakshi Sanz MD [address] [place] [address] Primary Staff Physician Cardiology 02/04/19 Boat Camp Operator Relationship Specialty Start Date End Date Galindo Yuan MD [address] [place] [address] PCP - General Internal Medicine 06/19/03 Sakshi Sanz MD [address] [place] [address] Primary Staff Physician Cardiology 02/04/19 Boat Camp Operator Relationship Specialty Start Date End Date Galindo Yuan MD [address] [place] [address] PCP - General Internal Medicine 06/19/03 Sakshi Sanz MD [address] [place] [address] Primary Staff Physician Cardiology 02/04/19 Boat Camp Operator Relationship Specialty Start Date End Date Galindo Yuan MD [address] [place] [address] PCP - General Internal Medicine 06/19/03 Sakshi Sanz MD [address] [place] [address] Primary Staff Physician Cardiology 02/04/19 Boat Camp Operator Relationship Specialty Start Date End Date Galindo Yuan MD [address] [place] [address] PCP - General Internal Medicine 06/19/03 Sakshi Sanz MD [address] [place] [address] Primary Staff Physician Cardiology 02/04/19 Boat Camp Operator Relationship Specialty Start Date End Date Galindo Yuan MD [address] [place] [address] PCP - General Internal Medicine 06/19/03 Sakshi Sanz MD [address] [place] [address] Primary Staff Physician Cardiology 02/04/19 Boat Camp Operator Relationship Specialty Start Date End Date Galindo Yuan MD [address] [place] [address] PCP - General Internal Medicine 06/19/03 Sakshi Sanz MD [address] [place] [address] Primary Staff Physician Cardiology 02/04/19 Boat Camp Operator Relationship Specialty Start Date End Date Galindo Yuan MD [address] [place] [address] PCP - General Internal Medicine 06/19/03 Sakshi Sanz MD [address] [place] [address] Primary Staff Physician Cardiology 02/04/19 Boat Camp Operator Relationship Specialty Start Date End Date Galindo Yuan MD [address] [place] [address] PCP - General Internal Medicine 06/19/03 Sakshi Sanz MD [address] [place] [address] Primary Staff Physician Cardiology 02/04/19 Boat Camp Operator Relationship Specialty Start Date End Date Galindo Yuan MD [address] [place] [address] PCP - General Internal Medicine 06/19/03 Sakshi Sanz MD [address] [place] [address] Primary Staff Physician Cardiology 02/04/19 Boat Camp Operator Relationship Specialty Start Date End Date Galindo Yuan MD [address] [place] [address] PCP - General Internal Medicine 06/19/03 Sakshi Sanz MD [address] [place] [address] Primary Staff Physician Cardiology 02/04/19 Boat Camp Operator Relationship Specialty Start Date End Date Galindo Yuan MD [address] [place] [address] PCP - General Internal Medicine 06/19/03 Sakshi Sanz MD [address] [place] [address] Primary Staff Physician Cardiology 02/04/19 Boat Camp Operator Relationship Specialty Start Date End Date Galindo Yuan MD [address] [place] [address] PCP - General Internal Medicine 06/19/03 Sakshi Sanz MD [address] [place] [address] Primary Staff Physician Cardiology 02/04/19 Ana Mckoy, TANKER DRIVER.SOLAR SALES ASSOCIATE [address] [place] [address] Receptionist/Telephone Operator Internal Medicine 10/27/24 Boat Camp Operator Relationship Specialty Start Date End Date Galindo Yuan MD [address] [place] [address] PCP - General Internal Medicine 06/19/03 Sakshi Sanz MD [address] [place] [address] Primary Staff Physician Cardiology 02/04/19 Ana Mckoy, TANKER DRIVER.SOLAR SALES ASSOCIATE [address] [place] [address] Receptionist/Telephone Operator Internal Medicine 10/27/24 Boat Camp Operator Relationship Specialty Start Date End Date Galindo Yuan MD [address] [place] [address] PCP - General Internal Medicine 06/19/03 Sakshi Sanz MD [address] [place] [address] Primary Staff Physician Cardiology 02/04/19 Ana Mckoy, TANKER DRIVER.SOLAR SALES ASSOCIATE [address] [place] [address] Receptionist/Telephone Operator Internal Medicine 10/27/24 Boat Camp Operator Relationship Specialty Start Date End Date Galindo Yuan MD [address] [place] [address] PCP - General Internal Medicine 06/19/03 Sakshi Sanz MD [address] [place] [address] Primary Staff Physician Cardiology 02/04/19 Ana Mckoy, TANKER DRIVER.SOLAR SALES ASSOCIATE [address] [place] [address] Receptionist/Telephone Operator Internal Medicine 10/27/24 Boat Camp Operator Relationship Specialty Start Date End Date Galindo Yuan MD [address] [place] [address] PCP - General Internal Medicine 06/19/03 Sakshi Sanz MD [address] [place] [address] Primary Staff Physician Cardiology 02/04/19 Ana Mckoy, TANKER DRIVER.SOLAR SALES ASSOCIATE [address] [place] [address] Receptionist/Telephone Operator Internal Medicine 10/27/24 Boat Camp Operator Relationship Specialty Start Date End Date Galindo Yuan MD [address] [place] [address] PCP - General Internal Medicine 06/19/03 Sakshi Sanz MD [address] [place] [address] Primary Staff Physician Cardiology 02/04/19 Ana Mckoy, TANKER DRIVER.SOLAR SALES ASSOCIATE [address] [place] [address] Receptionist/Telephone Operator Internal Medicine 10/27/24 Boat Camp Operator Relationship Specialty Start Date End Date Galindo Yuan MD [address] [place] [address] PCP - General Internal Medicine 06/19/03 Sakshi Sanz MD [address] [place] [address] Primary Staff Physician Cardiology 02/04/19 Ana Mckoy, TANKER DRIVER.SOLAR SALES ASSOCIATE [address] [place] [address] Receptionist/Telephone Operator Internal Medicine 10/27/24 Boat Camp Operator Relationship Specialty Start Date End Date Galindo Yuan MD [address] [place] [address] PCP - General Internal Medicine 06/19/03 Sakshi Sanz MD [address] [place] [address] Primary Staff Physician Cardiology 02/04/19 Ana Mckoy, TANKER DRIVER.SOLAR SALES ASSOCIATE [address] [place] [address] Receptionist/Telephone Operator Internal Medicine 10/27/24 Boat Camp Operator Relationship Specialty Start Date End Date Galindo Yuan MD [address] [place] [address] PCP - General Internal Medicine 06/19/03 Sakshi Sanz MD [address] [place] [address] Primary Staff Physician Cardiology 02/04/19 Ana Mckoy, TANKER DRIVER.SOLAR SALES ASSOCIATE [address] [place] [address] Receptionist/Telephone Operator Internal Medicine 10/27/24 Boat Camp Operator Relationship Specialty Start Date End Date Galindo Yuan MD [address] [place] [address] PCP - General Internal Medicine 06/19/03 Sakshi Sanz MD [address] [place] [address] Primary Staff Physician Cardiology 02/04/19 Ana Mckoy, TANKER DRIVER.SOLAR SALES ASSOCIATE [address] [place] [address] Receptionist/Telephone Operator Internal Medicine 10/27/24 Boat Camp Operator Relationship Specialty Start Date End Date Galindo Yuan MD [address] [place] [address] PCP - General Internal Medicine 06/19/03 Sakshi Sanz MD [address] [place] [address] Primary Staff Physician Cardiology 02/04/19 Ana Mckoy, TANKER DRIVER.SOLAR SALES ASSOCIATE [address] [place] [address] Receptionist/Telephone Operator Internal Medicine 10/27/24 Boat Camp Operator Relationship Specialty Start Date End Date Galindo Yuan MD [address] [place] [address] PCP - General Internal Medicine 06/19/03 Sakshi Sanz MD [address] [place] [address] Primary Staff Physician Cardiology 02/04/19 Ana Mckoy, TANKER DRIVER.SOLAR SALES ASSOCIATE [address] [place] [address] Receptionist/Telephone Operator Internal Medicine 10/27/24 Boat Camp Operator Relationship Specialty Start Date End Date Galindo Yuan MD [address] [place] [address] PCP - General Internal Medicine 06/19/03 Sakshi Sanz MD [address] [place] [address] Primary Staff Physician Cardiology 02/04/19 Ana Mckoy, TANKER DRIVER.SOLAR SALES ASSOCIATE [address] [place] [address] Receptionist/Telephone Operator Internal Medicine 10/27/24 Boat Camp Operator Relationship Specialty Start Date End Date Galindo Yuan MD [address] [place] [address] PCP - General Internal Medicine 06/19/03 Sakshi Sanz MD [address] [place] [address] Primary Staff Physician Cardiology 02/04/19 Ana Mckoy, TANKER DRIVER.SOLAR SALES ASSOCIATE [address] [place] [address] Receptionist/Telephone Operator Internal Medicine 10/27/24 Boat Camp Operator Relationship Specialty Start Date End Date Galindo Yuan MD [address] [place] [address] PCP - General Internal Medicine 06/19/03 Sakshi Sanz MD [address] [place] [address] Primary Staff Physician Cardiology 02/04/19 Ana Mckoy, TANKER DRIVER.SOLAR SALES ASSOCIATE [address] [place] [address] Receptionist/Telephone Operator Internal Medicine 10/27/24 Boat Camp Operator Relationship Specialty Start Date End Date Galindo Yuan MD [address] [place] [address] PCP - General Internal Medicine 06/19/03 Sakshi Sanz MD [address] [place] [address] Primary Staff Physician Cardiology 02/04/19 Ana Mckoy, TANKER DRIVER.SOLAR SALES ASSOCIATE [address] [place] [address] Receptionist/Telephone Operator Internal Medicine 10/27/24 Boat Camp Operator Relationship Specialty Start Date End Date Galindo Yuan MD [address] [place] [address] PCP - General 08/16/10 Boat Camp Operator Relationship Specialty Start Date End Date Galindo Yuan MD [address] [place] [address] PCP - General Internal Medicine 06/19/03 Sakshi Sanz MD [address] [place] [address] Primary Staff Physician Cardiology 02/04/19 Ana Mckoy, TANKER DRIVER.SOLAR SALES ASSOCIATE [address] [place] [address] Receptionist/Telephone Operator Internal Medicine 10/27/24 Boat Camp Operator Relationship Specialty Start Date End Date Galindo Yuan MD [address] [place] [address] PCP - General Internal Medicine 06/19/03 Sakshi Sanz MD [address] [place] [address] Primary Staff Physician Cardiology 02/04/19 Ana Mckoy, TANKER DRIVER.SOLAR SALES ASSOCIATE [address] [place] [address] Receptionist/Telephone Operator Internal Medicine 10/27/24 Boat Camp Operator Relationship Specialty Start Date End Date Galindo Yuan MD [address] [place] [address] PCP - General Internal Medicine 06/19/03 Sakshi Sanz MD [address] [place] [address] Primary Staff Physician Cardiology 02/04/19 Ana Mckoy, TANKER DRIVER.SOLAR SALES ASSOCIATE [address] [place] [address] Receptionist/Telephone Operator Internal Medicine 10/27/24 Boat Camp Operator Relationship Specialty Start Date End Date Galindo Yuan MD [address] [place] [address] PCP - General Internal Medicine 06/19/03 Sakshi Sanz MD [address] [place] [address] Primary Staff Physician Cardiology 02/04/19 Ana Mckoy, TANKER DRIVER.SOLAR SALES ASSOCIATE [address] [place] [address] Receptionist/Telephone Operator Internal Medicine 10/27/24 Boat Camp Operator Relationship Specialty Start Date End Date Galindo Yuan MD [address] [place] [address] PCP - General 08/16/10 Boat Camp Operator Relationship Specialty Start Date End Date Galindo Yuan MD [address] [place] [address] PCP - General Internal Medicine 06/19/03 Sakshi Sanz MD [address] [place] [address] Primary Staff Physician Cardiology 02/04/19 Ana Mckoy, TANKER DRIVER.SOLAR SALES ASSOCIATE [address] [place] [address] Receptionist/Telephone Operator Internal Medicine 10/27/24 Boat Camp Operator Relationship Specialty Start Date End Date Galindo Yuan MD [address] [place] [address] PCP - General Internal Medicine 06/19/03 Sakshi Sanz MD [address] [place] [address] Primary Staff Physician Cardiology 02/04/19 Ana Mckoy, TANKER DRIVER.SOLAR SALES ASSOCIATE [address] [place] [address] Receptionist/Telephone Operator Internal Medicine 10/27/24 Boat Camp Operator Relationship Specialty Start Date End Date Galindo Yuan MD [address] [place] [address] PCP - General Internal Medicine 06/19/03 Sakshi Sanz MD [address] [place] [address] Primary Staff Physician Cardiology 02/04/19 Ana Mckoy, TANKER DRIVER.SOLAR SALES ASSOCIATE [address] [place] [address] Receptionist/Telephone Operator Internal Medicine 10/27/24 Boat Camp Operator Relationship Specialty Start Date End Date Galindo Yuan MD [address] [place] [address] PCP - General Internal Medicine 06/19/03 Sakshi Sanz MD [address] [place] [address] Primary Staff Physician Cardiology 02/04/19 Ana Mckoy, TANKER DRIVER.SOLAR SALES ASSOCIATE [address] [place] [address] Receptionist/Telephone Operator Internal Medicine 10/27/24 Boat Camp Operator Relationship Specialty Start Date End Date Galindo Yuan MD [address] [place] [address] PCP - General Internal Medicine 06/19/03 Sakshi Sanz MD [address] [place] [address] Primary Staff Physician Cardiology 02/04/19 Ana Mckoy, TANKER DRIVER.SOLAR SALES ASSOCIATE [address] [place] [address] Receptionist/Telephone Operator Internal Medicine 10/27/24 Boat Camp Operator Relationship Specialty Start Date End Date Galindo Yuan MD [address] [place] [address] PCP - General Internal Medicine 06/19/03 Sakshi Sanz MD [address] [place] [address] Primary Staff Physician Cardiology 02/04/19 Ana Mckoy, TANKER DRIVER.SOLAR SALES ASSOCIATE [address] [place] [address] [facility] Internal Medicine 10/27/24 Boat Camp Operator Relationship Specialty Start Date End Date Galindo Yuan MD [address] [place] [address] PCP - General Internal Medicine 06/19/03 Sakshi Sanz MD [address] [place] [address] Primary Staff Physician Cardiology 02/04/19 Ana Mckoy, TANKER DRIVER.SOLAR SALES ASSOCIATE [address] [place] [address] [facility] Internal Medicine 10/27/24 Goals (unrecognized section and [...] BE BASED ON THE PRIMARY CLINICAL RECORDS. [facility]. provides no warranty or guarantee of the accuracy or completeness of information in this document.
[2025-10-11 18:17] LABS: Troponin T High Sens 2 HR 37 ng/L (<=22)
--- NOTE | 2025-10-11 18:33 | ECHOCS_ITS ---
Reason For Study Reason For Study: CHEST PAIN Procedure This was a 2D Doppler, Color Flow transthoracic echocardiogram. The study was technically difficult. Contrast injection was performed. Exam performed portable in patient room. Left Ventricle Normal LV size. The left ventricular ejection fraction is 70 %. No regional wall motion abnormalities noted. Right Ventricle Normal RV size. Normal systolic function. Atria Normal left atrium. Normal right atrium. Mitral Valve Normal mitral valve. Tricuspid Valve Normal tricuspid valve. Mild (1+) tricuspid valve insufficiency. Pulmonary artery systolic pressure is 30 mmHg. Aortic Valve Trisinus/trileaflet aortic valve. Pulmonic Valve Normal pulmonic valve. Great Vessels Moderately calcified aortic root. The pulmonary artery is normal size. Inferior vena cava collapse with respiration. Pericardium/Pleural No pericardial effusion. Medication Diluted definity 2ml given slow IV push to enhance endocardial definition. MMode/2D Measurements & Calculations Ao root diam: 3.3 cm LAV(MOD-sp4): 49.1 ml LVAd ap4: 28.7 cm2 LVLd ap4: 8.1 cm EDV(MOD-sp4): 79.5 ml EDV(sp4-el): 85.9 ml LVAs ap4: 11.3 cm2 LVLs ap4: 5.2 cm ESV(MOD-sp4): 19.4 ml ESV(sp4-el): 20.9 ml EF(MOD-sp4): 75.5 % EF(sp4-el): 75.6 % SV(MOD-sp4): 60.1 ml SV(sp4-el): 65.0 ml LA A4 area: 17.0 cm2 SI(MOD-sp4): 28.6 ml/m2 LA dimension(2D): 3.9 cm RA A4 area: 11.0 cm2 Time Measurements MV dec time: 0.21 sec Doppler Measurements & Calculations MV E max sivakumar: 75.5 cm/sec Lat Peak E' Sivakumar: 10.8 cm/sec MV V2 max: 93.4 cm/sec MV A max sivakumar: 68.6 cm/sec E/E' lat: 7.0 MV max P.5 mmHg MV E/A: 1.1 MV V2 mean: 58.2 cm/sec MV mean P.5 mmHg MV V2 VTI: 27.7 cm MV dec slope: 360.6 cm/sec2 Ao V2 max: 107.7 cm/sec LV V1 max: 73.1 cm/sec Ao max P.6 mmHg LV V1 max P.1 mmHg Ao V2 mean: 70.9 cm/sec LV V1 mean P.1 mmHg Ao mean P.3 mmHg LV V1 mean: 48.3 cm/sec Ao V2 VTI: 24.3 cm LV V1 VTI: 16.3 cm AV (velocity ratio): 0.67 PA V2 max: 148.1 cm/sec TR max sivakumar: 248.8 cm/sec TR max P.8 mmHg ECHO/Echo Complete W/ Contrast Interpretation Summary Normal LV size. The left ventricular ejection fraction is 70 %. Pulmonary artery systolic pressure is 30 mmHg. Moderately calcified aortic root. Contrast injection was performed. Ordering Physician: Brigido Casas Referring Physician: Galindo Yuan M.D. Performed By: Elicia Tai RCS
--- NOTE | 2025-10-11 18:49 | EKG12_ITS ---
Test Reason : CHEST PAIN Blood Pressure : */* mmHG Vent. Rate : 58 BPM Atrial Rate : 58 BPM P-R Int : 286 ms QRS Dur : 86 ms QT Int : 438 ms P-R-T Axes : 87 27 14 degrees QTcB Int : 429 ms Sinus bradycardia with 1st degree A-V block Otherwise normal ECG When compared with ECG of 11-Oct-2025 14:46, MANUAL COMPARISON REQUIRED DATA IS UNCONFIRMED Confirmed by JENNA LORD, WALTER ([id number]), staff editor RAJENDRA ROGERS ([id number]) on 10/13/2025 10:26:45 AM Referred By: Confirmed By: WALTER WEST MD
[2025-10-11 19:10] LABS: Troponin T High Sens 4 HR 37 ng/L (<=22)
[2025-10-11 23:38] LABS: Partial Thromboplast Time 131.7 Seconds (24.1-36.2)
[2025-10-12] VITALS (28 sets, daily range): BP systolic 122–168; BP diastolic 52–86; PULSE 50–74; RESP 14–22; TEMP 36.6–36.7; O2SAT 95–100
[2025-10-12 07:32] LABS: Hematocrit 43.3 % (40-54); Hemoglobin 14.1 g/dL (13.0-16.5); Immature Granulocytes Count 0.010 X10^3/uL (0.0-0.0); Mean Corp Hgb Conc 32.6 g/dL (32-36); Mean Corpuscular Volume 88.0 fL (80-94); Mean Platelet Vol. 9.4 fl (6.2-12.0); NRBC Flagged by Analyzer 0 % (0-5); Platelet Count 210 K/mm3 (150-450); RBC Distribution Width CV 14.2 % (11.6-14.6); RBC Distribution Width SD 45.4 fl (35.1-43.9); Red Blood Count 4.92 M/mm3 (4.6-6.2); White Blood Count 6.6 K/mm3 (4.4-11.0)
[2025-10-12] MEDS: Metoprolol(XL)Succ 50 MG Tablet PO (07:44)
[2025-10-12 08:02] LABS: Partial Thromboplast Time 42.0 Seconds (24.1-36.2)
[2025-10-12 08:14] LABS: Anion Gap 11 (5-15); BUN 16 mg/dL (4-19); BUN/Creat Ratio 13.1 RATIO (10-20); Calcium,Total 9.4 mg/dL (7.6-11.0); Carbon Dioxide 25.3 mmol/L (21.0-32.0); Chloride 105 mmol/L (98-108); Estimated Creatinine Clearance 49.57 ml/min (50-250); Glucose 104 mg/dL (70-99); Potassium 4.5 mmol/L (3.3-5.1)
[2025-10-12] MEDS: 0.9% Saline Lock 10 ML Syringe IV (09:22)
[2025-10-12 09:23] LABS: Cholesterol 90 mg/dL (<=200); Low Density Lipoprotein Calc. 40 mg/dL; Triglycerides 75 mg/dL; Very Low Density Lipoprotein 15 mg/dL (5-40); cholesterol:hdl ratio screen 2.65
--- NOTE | 2025-10-12 09:27 | PCM.CONS.C ---
Assessment & Plan Assessment/Plan (1) NSTEMI, initial episode of care: PLAN: He presents with chest discomfort and is noted to have minimal elevation in his cardiac enzymes. However his story is concerning for progressive angina. At this time I would recommend that he continue with his aspirin, Continue high intensity statin Continue beta-kathy Scheduled for an urgent cardiac catheterization. There is benefits alternatives have been explained to him he understands and agrees to proceed. (2) HTN (hypertension): QUALIFIERS: Hypertension type: essential hypertension Qualified Code(s): I10 - Essential (primary) hypertension PLAN: He does have a history of hypertension which appears to be very well-controlled. Will try and optimize his blood pressure medication. (3) H/O cardiac radiofrequency ablation: PLAN: He does have a history of remote radiofrequency ablation. He appears to be in sinus rhythm at this time His anticoagulation is on hold pending testing. HPI Consult Data Date of Consult: 10/12/25 HPI Narrative HPI Narrative: JG CHAHAL, is a 85 M who presents to the emergency room with complaints of chest discomfort. He does have a history of coronary artery disease status post multiple stenting, paroxysmal atrial fibrillation status post pulmonary vein isolation remotely as well as hypertension hyperlipidemia and chronic kidney disease. He says that over the last 3 to 4 days he has experienced chest discomfort described as a pain and pressure radiating to his jaw and down his left arm. This was noted at rest he had some nitroglycerin which he took which helped with his chest discomfort. He presented to the emergency room and was started on intravenous nitroglycerin with improvement. He was noted to be rather hypertensive when he came into the emergency room. His last catheterization was in 2018 and at that time his stents were noted to be patent and medical therapy was recommended. Since being on the telemetry floor he has been having waxing and waning chest discomfort. At this particular time he appears to be comfortable and his blood pressure appears to be better controlled. [facility] Medical History Wears dentures Cancer Diabetes Ambulates with cane Arthritis History of renal disease Excessive bleeding Restless legs Back pain Gastric reflux Non-smoker CPAP (continuous positive airway pressure) dependence Sleep apnea Hypertension Cardiology follow-up encounter History of stress test History of echocardiogram Home Medications ?Medication ?Instructions ?Recorded ?Last Taken ?Type apixaban 5 mg tablet (Eliquis) 5 mg PO BID BLOOD THINNER 05/18/16 01/29/22 History atorvastatin 40 mg tablet 40 mg PO QHS CHOLESTEROL 05/18/16 01/31/22 History cholecalciferol (vitamin D3) 25 1,000 unit PO DAILY SUPPLEMENT 05/18/16 01/27/22 History mcg (1,000 unit) tablet (Vitamin D3) pantoprazole 40 mg tablet,delayed 40 mg PO DAILY GERD 05/18/16 01/31/22 History release nitroglycerin 0.4 mg sublingual 0.4 mg sublingual Q5M PRN Chest 05/23/16 01/31/22 Rx tablet Pain ##1 cyanocobalamin (vitamin B-12) 500 1,000 mcg PO DAILY@0800 SUPPLEMENT 11/23/16 01/27/22 History mcg tablet (B-12 DOTS) metoprolol succinate 25 mg 50 mg PO DAILY BP 06/24/17 01/31/22 History tablet,extended release 24 hr sennosides 8.6 mg-docusate sodium 2 tab PO DAILY STOOL SOFTENER 06/24/17 01/31/22 History 50 mg tablet (Stool Softener-Stimulant Laxative) losartan 50 mg tablet 50 mg PO DAILY BP 09/18/17 01/31/22 History amlodipine 5 mg tablet 2.5 mg PO DAILY BP 01/18/22 01/31/22 History dofetilide 250 mcg capsule 250 mcg PO Q12 HEART RATE 01/18/22 01/31/22 History magnesium oxide 400 mg (241.3 mg 400 mg PO DAILYCM SUPPLEMENT 01/18/22 01/27/22 History magnesium) tablet melatonin 3 mg tablet 3 mg PO QHS SLEEP 01/18/22 01/31/22 History meclizine 25 mg tablet 25 mg PO BID PRN dizziness #20 tabs 08/08/22 Unknown Rx Allergy/AdvReac Type Severity Reaction Status Date / Time adhesive tape Allergy Rash Verified 10/11/25 14:39 Latex, Natural Rubber Allergy Other Verified 10/11/25 14:39 codeine AdvReac Other Verified 10/11/25 14:39 hydrocodone bitartrate (From AdvReac Nausea Verified 10/11/25 14:39 Vicodin) meperidine HCl (From Demerol) AdvReac Other Verified 10/11/25 14:39 propoxyphene napsylate (From AdvReac Other Verified 10/11/25 14:39 Darvocet-N) Surgical History History of cardiac catheterization Hx of total hip arthroplasty History of back surgery Hx of prior ablation treatment History of coronary artery stent placement History of back surgery Hx of neck surgery History of shoulder surgery Hx of total knee replacement History of carpal tunnel release of both wrists Hx of total knee replacement Social History household members: spouse housing: house Smoking Status: Never smoker ROS Constitutional Constitutional: Denies fever(s) or weight loss Eyes Eyes: Reports systems reviewed and no addt'l complaints, except as documented ENT HEENT: Reports systems reviewed and no addt'l complaints, except as documented Cardiovascular Cardiovascular: Reports chest pain at rest, chest pain with activity, dyspnea at rest and dyspnea on exertion; Denies edema, palpitations or paroxysmal nocturnal dyspnea Respiratory/Chest Respiratory/Chest: Denies dyspnea on exertion, productive cough, shortness of breath at rest or shortness of breath with exertion Gastrointestinal Gastrointestinal: Denies change in bowel habits, nausea, vomiting or weight changes Genitourinary Genitourinary: Denies difficulty urinating Musculoskeletal Musculoskeletal: Denies joint stiffness or muscle weakness Integumentary Integumentary: Denies lesions Neurologic Neurologic: Denies dizziness or syncope Psychiatric Psychiatric: Denies anxiety Endocrine Endocrinology: Denies excessive sweating or fatigue Hematologic/Lymphatic Hematologic/Lymphatic: Denies anemia Allergic/Immunologic Allergic/Immunologic: Denies seasonal rhinorrhea Physical Exam Const alert and oriented x3 Orientation / Consciousness: awake HEENT normocephalic Eyes PERRL Neck Carotids: normal carotid upstroke Resp clear to auscultation bilaterally Cardio regular rate and regular rhythm GI normal to inspection, nondistended, normoactive bowel sounds Skin no rashes or lesions noted Psych mental status grossly normal Objective Data Vital Signs: Vital Signs Temp Pulse Resp BP Pulse Ox O2 Del Method FiO2 98.0 F 65 16 132/70 H 99 Room Air 21 10/12/25 08:11 10/12/25 09:16 10/12/25 09:16 10/12/25 09:16 10/12/25 09:16 10/12/25 09:16 10/11/25 22:35 Oxygen Delivery Method Room Air Weight: 207 lb 0.225 oz Body Mass Index (BMI) 32.4 Intake & Output: Intake and Output for Last 24 Hours 10/10/25 10/11/25 10/12/25 23:59 23:59 23:59 Intake Total 83.77 / 206.77 209.18 / 209.18 Balance 83.77 / 206.77 209.18 / 209.18 Lab / Micro Data 10/12/25 07:20 10/12/25 07:10 Labs: Laboratory Results - last 24 hr 10/11/25 14:59: WBC 6.6, RBC 4.93, Hgb 14.1, Hct 42.5, MCV 86.2, MCH 28.6, MCHC 33.2, RDW Std Deviation 44.5 H, RDW Coeff of Nicholas 14.1, Plt Count 222, MPV 9.6, Immature Gran % (Auto) 0.300, Neut % (Auto) 63.1, Lymph % (Auto) 25.3, [place] % (Auto) 8.5, Eos % (Auto) 1.7, Baso % (Auto) 1.1 H, Absolute Neuts (auto) 4.1, Absolute Lymphs (auto) 1.66, Nucleated RBC % 0, PT 16.2 H, INR 1.3, APTT 32.6, Sodium 139, Potassium 3.9, Chloride 103, Carbon Dioxide 23.0, Anion Gap 13, BUN 19, Creatinine 1.28 H, Estim Creat Clear Calc 47.57 L, Est GFR (MDRD) Non-Af 55 L, BUN/Creatinine Ratio 14.5, Glucose 112 H, Hemoglobin A1c 6.0 H, Calcium 9.3, Troponin T High Sens 40 H 10/11/25 17:20: Troponin T Hi Sens 2 Hr 37 H 10/11/25 18:46: Troponin T Hi Sens 4Hr 37 H 10/11/25 21:30: APTT 131.7 H* 10/12/25 07:10: APTT 42.0 H, Sodium 142, Potassium 4.5, Chloride 105, Carbon Dioxide 25.3, Anion Gap 11, BUN 16, Creatinine 1.19, Estim Creat Clear Calc 49.57 L, Est GFR (MDRD) Non-Af 60, BUN/Creatinine Ratio 13.1, Glucose 104 H, Calcium 9.4, Triglycerides 75, Cholesterol 90, LDL Cholesterol, Calc 40, VLDL Cholesterol 15, HDL Cholesterol 34 L, Cholesterol/HDL Ratio 2.65 10/12/25 07:20: WBC 6.6, RBC 4.92, Hgb 14.1, Hct 43.3, MCV 88.0, MCH 28.7, MCHC 32.6, RDW Std Deviation 45.4 H, RDW Coeff of Nicholas 14.2, Plt Count 210, MPV 9.4, Immature Gran % (Auto) 0.200, Neut % (Auto) 69.8, Lymph % (Auto) 20.3, [place] % (Auto) 7.9, Eos % (Auto) 1.2, Baso % (Auto) 0.6, Absolute Neuts (auto) 4.6, Absolute Lymphs (auto) 1.33, Nucleated RBC % 0 Cardiology Labs/Tests 10/11/25 14:59: WBC 6.6, RBC 4.93, Hgb 14.1, Hct 42.5, MCV 86.2, MCH 28.6, MCHC 33.2, Plt Count 222, MPV 9.6, Immature Gran % (Auto) 0.300, Neut % (Auto) 63.1, Lymph % (Auto) 25.3, [place] % (Auto) 8.5, Eos % (Auto) 1.7, Baso % (Auto) 1.1 H, Absolute Neuts (auto) 4.1, Nucleated RBC % 0, PT 16.2 H, INR 1.3, APTT 32.6, Sodium 139, Potassium 3.9, Chloride 103, Carbon Dioxide 23.0, Anion Gap 13, BUN 19, Creatinine 1.28 H, Est GFR (MDRD) Non-Af 55 L, BUN/Creatinine Ratio 14.5, Glucose 112 H, Hemoglobin A1c 6.0 H, Calcium 9.3 10/11/25 21:30: APTT 131.7 H* 10/12/25 07:10: APTT 42.0 H, Sodium 142, Potassium 4.5, Chloride 105, Carbon Dioxide 25.3, Anion Gap 11, BUN 16, Creatinine 1.19, Est GFR (MDRD) Non-Af 60, BUN/Creatinine Ratio 13.1, Glucose 104 H, Calcium 9.4, Triglycerides 75, Cholesterol 90, VLDL Cholesterol 15, HDL Cholesterol 34 L, Cholesterol/HDL Ratio 2.65 10/12/25 07:20: WBC 6.6, RBC 4.92, Hgb 14.1, Hct 43.3, MCV 88.0, MCH 28.7, MCHC 32.6, Plt Count 210, MPV 9.4, Immature Gran % (Auto) 0.200, Neut % (Auto) 69.8, Lymph % (Auto) 20.3, [place] % (Auto) 7.9, Eos % (Auto) 1.2, Baso % (Auto) 0.6, Absolute Neuts (auto) 4.6, Nucleated RBC % 0 Rhythm: EKG: ECHO: Stress Test: Cardiac Cath: PCI: CT Surgery: Holter monitor: EPS: PPM: CXR: Chest CT Scan: Radiography Diagnostic Testing: Radiology Impression Chest X-Ray 10/11/25 15:16 IMPRESSION: No focal consolidations. Reading Location: [facility] Risk Score for UA/STEMI Assesmment (YES = 1) Risk Stratification Applicable: Yes Age > or = 65: Yes > or = 3 CAD risk factors (HTN, Hypercholesterolemia, Diabetes, family hx, current smoker): Yes Known CAD (Stenosis > or = 50%): Yes ASA used in past 7 days: Yes Severe angina (> or = 2 episodes in 24 hrs): Yes EKG ST change > or = 0.5mm: No Positive cardiac markers: No Score [facility] Risk Score of mortality/ recurrent ischemic event over the next 14 days: 5 = 26.6% - HIGH RISK
--- NOTE | 2025-10-12 09:59 | PN_ITS ---
Subjective Subjective Patient seen and examined with his nurse by his bedside. He is still complaining of chest pain but is not severe as when he came in. Review of systems otherwise negative. He is for cardiac cath today. He has remained hemodynamically stable. Objective Data Objective Data Vital Signs: Vital Signs Temp Pulse Resp BP Pulse Ox O2 Del Method FiO2 98.0 F 65 16 132/70 H 99 Room Air 21 10/12/25 08:11 10/12/25 09:16 10/12/25 09:16 10/12/25 09:16 10/12/25 09:16 10/12/25 09:16 10/11/25 22:35 Oxygen Delivery Method Room Air Weight: 207 lb 0.225 oz Body Mass Index (BMI) 32.4 Intake & Output: Intake and Output for Last 24 Hours 10/10/25 10/11/25 10/12/25 23:59 23:59 23:59 Intake Total 83.77 / 206.77 209.18 / 209.18 Balance 83.77 / 206.77 209.18 / 209.18 Lab / Micro Data 10/12/25 07:20 10/12/25 07:10 Labs: Laboratory Results - last 24 hr 10/11/25 14:59: WBC 6.6, RBC 4.93, Hgb 14.1, Hct 42.5, MCV 86.2, MCH 28.6, MCHC 33.2, RDW Std Deviation 44.5 H, RDW Coeff of Nicholas 14.1, Plt Count 222, MPV 9.6, Immature Gran % (Auto) 0.300, Neut % (Auto) 63.1, Lymph % (Auto) 25.3, [place] % (Auto) 8.5, Eos % (Auto) 1.7, Baso % (Auto) 1.1 H, Absolute Neuts (auto) 4.1, Absolute Lymphs (auto) 1.66, Nucleated RBC % 0, PT 16.2 H, INR 1.3, APTT 32.6, Sodium 139, Potassium 3.9, Chloride 103, Carbon Dioxide 23.0, Anion Gap 13, BUN 19, Creatinine 1.28 H, Estim Creat Clear Calc 47.57 L, Est GFR (MDRD) Non-Af 55 L, BUN/Creatinine Ratio 14.5, Glucose 112 H, Hemoglobin A1c 6.0 H, Calcium 9.3, Troponin T High Sens 40 H 10/11/25 17:20: Troponin T Hi Sens 2 Hr 37 H 10/11/25 18:46: Troponin T Hi Sens 4Hr 37 H 10/11/25 21:30: APTT 131.7 H* 10/12/25 07:10: APTT 42.0 H, Sodium 142, Potassium 4.5, Chloride 105, Carbon Dioxide 25.3, Anion Gap 11, BUN 16, Creatinine 1.19, Estim Creat Clear Calc 49.57 L, Est GFR (MDRD) Non-Af 60, BUN/Creatinine Ratio 13.1, Glucose 104 H, Calcium 9.4, Triglycerides 75, Cholesterol 90, LDL Cholesterol, Calc 40, VLDL Cholesterol 15, HDL Cholesterol 34 L, Cholesterol/HDL Ratio 2.65 10/12/25 07:20: WBC 6.6, RBC 4.92, Hgb 14.1, Hct 43.3, MCV 88.0, MCH 28.7, MCHC 32.6, RDW Std Deviation 45.4 H, RDW Coeff of Nicholas 14.2, Plt Count 210, MPV 9.4, Immature Gran % (Auto) 0.200, Neut % (Auto) 69.8, Lymph % (Auto) 20.3, [place] % (Auto) 7.9, Eos % (Auto) 1.2, Baso % (Auto) 0.6, Absolute Neuts (auto) 4.6, Absolute Lymphs (auto) 1.33, Nucleated RBC % 0 Radiography Diagnostic Testing: Radiology Impression Chest X-Ray 10/11/25 15:16 IMPRESSION: No focal consolidations. Reading Location: [facility] Physical Exam Const alert, oriented x3, no apparent distress and well nourished HEENT normocephalic, head/scalp atraumatic, moist oral mucous membranes and oropharynx normal Eyes EOMs intact bilaterally Neck supple and no JVD Lymph Lymphatic: no lymphedema noted Resp normal respiratory effort, normal air movement and clear to auscultation bilaterally Cardio regular rate, regular rhythm, S1 normal heart sound, S2 normal heart sound and no murmurs GI normal to inspection, nondistended, normoactive bowel sounds, soft to palpation, non-tender and non-distended Extremity normal capillary refill, no clubbing, cyanosis or edema and no calf tenderness General Extremity: no tenderness to palpation of joints or extremities Skin General Skin Exam: no breakdown Neuro CN's II-XII intact bilaterally Motor Exam: strength 5/5 throughout and general weakness Psych thought process normal, cooperative and affect normal Appearance: appropriate Assessment & Plan Assessment/Plan (1) NSTEMI, initial episode of care: PLAN: Plan #Non-STEMI * Patient admitted with complaint of chest pain. He still complain of some mild pressure-like chest pain this morning. He is on nitro drip. * EKG showed no acute ST changes. Cardiology on board. He is also on heparin drip. * For cardiac cath today. 2D echo also ordered and pending. #History of CAD s/p stents: Says he had about 5 stents with the last one being about 10 to 15 years ago. On high intensity statin. #A-fib: On dofetilide and metoprolol. Currently on heparin drip though he is usually on Eliquis at home. To resume Eliquis after cardiac cath when okay with cardiology. #Hypertension: On amlodipine and losartan as well as metoprolol #Hyperlipidemia: Not on high intensity statin #GERD: On PPI #DVT prophylaxis: Not indicated as patient on heparin drip. Charges/Coding Visit Charges Inpatient E&M: 94975 Subs Hosp L2
--- NOTE | 2025-10-12 10:42 | CASEMGMT ---
Tertiary Insurance review for hospitals In-network with?[employer] insurance if transfer is recommended is as follows: [facility], [facility], [place], [facility], [facility], , [place], [facility], and [place]. Consuelo Macias, Discharge Planning Asst.
--- NOTE | 2025-10-12 12:20 | CASEMGMT ---
VISH CM to the pt's room at this time for assessment. Pt is currently off of the floor for a procedure. CM to follow.
--- NOTE | 2025-10-12 13:15 | CASEMGMT ---
RN CM Face to Face with patient for initial transition planning/care coordination assessment. RN CM introduced self and role at [facility]. Patient lying in bed, alert and oriented, family at bedside. Patient willing to participate in assessment and is able to answer all questions appropriately. Care providers, pharmacy, and demographics verified. Strata: 2 PCP: [facility] Specialists: Melissa, notch machine operator; Kb, board writer; Mateus, ortho/pain; Kacy, board writer, Chary; Myles, workforce management analyst; Preferred Pharmacy: [facility] Insurance: [employer] [facility] Prescription Benefit: yes Living Will/HPOA: yes, daughter Elvira MALCOLMOK: , daughers, granddaughter Living Arrangements: Patient lives in a 2 story home, with bed and bath on first floor. Patient states he is independent at home. Transportation: self, , daughters DME/HHC: Patient has shower chair, raised toilet, cane, grab bars, walker, cpap at home. No previous HHC or SNF. Patient wishes to discharge home, denies need for home health at this time. Patient states he has no further needs or concerns at this time. CM to follow for discharge planning needs that may arise. Disposition Plan: Patient to discharge home with family support and follow-up plans in place. Ruth CHRISTOPHER, RN, CM
[2025-10-12] MEDS: Cholecalciferol (VIT D3) 25 MCG TABLET (1,000 UNITS) PO (13:38)
--- NOTE | 2025-10-12 15:41 | DS.PCM_ITS ---
Providers Date of Admission: 10/11/25 Date of Discharge: 10/12/25 Primary Care Physician: Dr. Galindo Yuan MD Consultations 10/11/25 18:33 Consult: Cardiology Routine Consulting Provider: Humberto Tierney Reason for Consult: NSTEMI, h/o CAD w/ stenting EMERGENT Consult: No MD Notified: Yes Date Notified: 10/12/25 Time Notified: 07:00 Method of Notification: Text Reason For Visit: NSTEMI Diagnosis Discharge Diagnosis (1) NSTEMI, initial episode of care: Status: Acute Code(s): I21.4 - Non-ST elevation (NSTEMI) myocardial infarction Plan #Non-STEMI * Patient admitted with complaint of chest pain. He still complain of some mild pressure-like chest pain this morning. He is on nitro drip. * EKG showed no acute ST changes. Cardiology on board. He is also on heparin drip. * For cardiac cath today. 2D echo also ordered and pending. #History of CAD s/p stents: Says he had about 5 stents with the last one being about 10 to 15 years ago. On high intensity statin. #A-fib: On dofetilide and metoprolol. Currently on heparin drip though he is usually on Eliquis at home. To resume Eliquis after cardiac cath when okay with cardiology. #Hypertension: On amlodipine and losartan as well as metoprolol #Hyperlipidemia: Not on high intensity statin #GERD: On PPI #DVT prophylaxis: Not indicated as patient on heparin drip. Medications at Discharge Home Medications apixaban 5 mg tablet (Eliquis) 5 mg PO BID BLOOD THINNER 05/18/16 atorvastatin 40 mg tablet 40 mg PO QHS CHOLESTEROL 05/18/16 cholecalciferol (vitamin D3) 25 mcg (1,000 unit) tablet (Vitamin D3) 1,000 unit PO DAILY SUPPLEMENT 05/18/16 pantoprazole 40 mg tablet,delayed release 40 mg PO DAILY GERD 05/18/16 nitroglycerin 0.4 mg sublingual tablet 0.4 mg sublingual Q5M PRN Chest Pain ##1 05/23/16 cyanocobalamin (vitamin B-12) 500 mcg tablet (B-12 DOTS) 1,000 mcg PO DAILY@0800 SUPPLEMENT 11/23/16 sennosides 8.6 mg-docusate sodium 50 mg tablet (Stool Softener-Stimulant Laxative) 2 tab PO DAILY STOOL SOFTENER 06/24/17 losartan 50 mg tablet 50 mg PO DAILY BP 09/18/17 dofetilide 250 mcg capsule 250 mcg PO Q12 HEART RATE 01/18/22 magnesium oxide 400 mg (241.3 mg magnesium) tablet 400 mg PO DAILYCM SUPPLEMENT 01/18/22 melatonin 3 mg tablet 3 mg PO QHS SLEEP 01/18/22 meclizine 25 mg tablet 25 mg PO BID PRN dizziness #20 tabs 08/08/22 amlodipine 5 mg tablet 5 mg PO DAILY #30 tabs 10/12/25 isosorbide mononitrate 30 mg tablet,extended release 24 hr 30 mg PO DAILY@0600 #30 tabs 10/12/25 metoprolol succinate 50 mg tablet,extended release 24 hr 50 mg PO DAILY #30 tabs 10/12/25 Hospital Course Operations None Procedures 2-D Echocardiogram and Cardiac catheterization Summary of Care Provided Minutes Spent on Discharge: 45 Hospital Course: Patient is an 85-year-old male with a past medical history as outlined was admitted through the ED on 10/11/2025 with a complaint of chest pain. He had a history of CAD s/p multiple stents and said his chest pain had been going on for about 4 days prior to admission. Symptoms improved after he took a sublingual nitro. However the pain recurred the day before admission so he decided to come into the ED. EKG showed no acute ST changes initial troponin was 40. Given his history he was managed for non-STEMI and started on heparin drip. Cardiology was consulted. He was also started on nitro drip which helped improve his pain. Cardiology was consulted and he had cardiac cath which showed multivessel disease with plan for medical management. His amlodipine was increased to 5 mg daily and he was also placed on Imdur 30 mg daily. He was continued on his metoprolol 50 mg daily and high intensity statin as well as his Eliquis for A- fib. Cardiology reviewed him and recommended that he could be discharged home. He was therefore discharged home on 10/12/2025. He is follow-up with his primary care doctor and with cardiology within 1 to 2 weeks. Patient seen and examined prior to discharge. He had no active complaints and had an uneventful night. Review of systems otherwise negative. Labs and vitals reviewed. Home medication regimen reconciled. Physical Exam Const alert, oriented x3, no apparent distress and well nourished General Appearance: cooperative and comfortable HEENT normocephalic, head/scalp atraumatic, hearing grossly normal bilaterally, nasal mucous membranes and turbinates normal, moist oral mucous membranes and oropharynx normal Eyes PERRL, EOMs intact bilaterally and conjunctivae normal Neck full ROM, supple and no JVD Lymph Lymphatic: no lymphedema noted Chest inspection of chest normal Resp normal respiratory effort, normal air movement, no use of accessory muscles and clear to auscultation bilaterally Cardio regular rate, regular rhythm, S1 normal heart sound, S2 normal heart sound, no murmurs and peripheral pulses 2+ throughout GI normal to inspection, nondistended, normoactive bowel sounds, soft to palpation, non-tender and non-distended Back/Spine normal ROM Extremity normal to inspection, full ROM, normal capillary refill, no clubbing, cyanosis or edema, no calf tenderness and no pedal edema General Extremity: no tenderness to palpation of joints or extremities Skin no rashes or lesions noted General Skin Exam: no breakdown Neuro oriented x3 Sensorium / Orientation: awake and alert Motor Exam: strength 5/5 throughout Psych mental status grossly normal, thought process normal, cooperative and affect normal Appearance: appropriate Weight / BMI Weight Weight: 207 lb 0.225 oz Body Mass Index (BMI) 32.4 ABG / Lab / Microbiology Data 10/12/25 07:20 10/12/25 07:10 Laboratory: Laboratory Results - last 24 hr 10/11/25 14:59: PT 16.2 H, INR 1.3, APTT 32.6, Hemoglobin A1c 6.0 H 10/11/25 17:20: Troponin T Hi Sens 2 Hr 37 H 10/11/25 18:46: Troponin T Hi Sens 4Hr 37 H 10/11/25 21:30: APTT 131.7 H* 10/12/25 07:10: APTT 42.0 H, Sodium 142, Potassium 4.5, Chloride 105, Carbon Dioxide 25.3, Anion Gap 11, BUN 16, Creatinine 1.19, Estim Creat Clear Calc 49.57 L, Est GFR (MDRD) Non-Af 60, BUN/Creatinine Ratio 13.1, Glucose 104 H, Calcium 9.4, Triglycerides 75, Cholesterol 90, LDL Cholesterol, Calc 40, VLDL Cholesterol 15, HDL Cholesterol 34 L, Cholesterol/HDL Ratio 2.65 10/12/25 07:20: WBC 6.6, RBC 4.92, Hgb 14.1, Hct 43.3, MCV 88.0, MCH 28.7, MCHC 32.6, RDW Std Deviation 45.4 H, RDW Coeff of Nicholas 14.2, Plt Count 210, MPV 9.4, Immature Gran % (Auto) 0.200, Neut % (Auto) 69.8, Lymph % (Auto) 20.3, [place] % (Auto) 7.9, Eos % (Auto) 1.2, Baso % (Auto) 0.6, Absolute Neuts (auto) 4.6, Absolute Lymphs (auto) 1.33, Nucleated RBC % 0 Radiography Diagnostic Testing: Radiology Impression Chest X-Ray 10/11/25 15:16 IMPRESSION: No focal consolidations. Reading Location: [facility] D/C Instructions Discharge Activity: Return to Normal Activity Weight Bearing Status: Weight bearing as tolerated Call your doctor if you observe: Shortness of breath, Dizziness, Swelling in the ankles and Chest pain DC O2, CPAP, BIPAP Needs Home O2 Discharge instructions: No DC home with Oxygen: No Meaningful Use Info Meaningful Use Meaningful Use Diagnoses (Choose all that apply): None applicable Discharge Plan Admission Admit Date/Time: 10/11/25 17:30 Primary Reason for Your Visit: nonstemi Attending Provider: Dejah Zavala Primary Care Provider: Galindo Yuan Consulting Providers: Brigido Casas; Humberto Tierney Instructions Patient Instructions: Heart Attack Dc, Heart Attack Discharge Orders/Prescriptions Prescriptions: New metoprolol succinate 50 mg Tablet Extended Release 24 Hr 50 mg PO DAILY Qty: 30 2RF isosorbide mononitrate 30 mg Tablet Extended Release 24 Hr 30 mg PO DAILY@0600 Qty: 30 2RF amlodipine 5 mg Tablet 5 mg PO DAILY Qty: 30 2RF Continued atorvastatin 40 MG tablet 40 mg PO QHS Patient Comments: Cholesterol pantoprazole 40 MG tablet 40 mg PO DAILY Patient Comments: Acid Refulx/Stomach Acid cholecalciferol (vitamin D3) [Vitamin D3] 1,000 UNIT tablet 1,000 unit PO DAILY Patient Comments: Supplement Eliquis 5 MG tablet 5 mg PO BID Patient Comments: STOP 48 HR PRIOR nitroglycerin 0.4 MG tablet 0.4 mg sublingual Q5M PRN (Reason: Chest Pain) Qty: 1 0RF Patient Comments: Chest pain Rx Instructions: Place one tab under tongue every 5 minutes x 3 doses as needed cyanocobalamin (vitamin B-12) [B-12 DOTS] 500 MCG tablet 1,000 mcg PO DAILY@0800 sennosides-docusate sodium [Stool Softener-Stimulant Laxat] 1 TABLET tablet 2 tab PO DAILY Patient Comments: CONSTIPATION losartan 50 MG tablet 50 mg PO DAILY dofetilide 250 MCG capsule 250 mcg PO Q12 Patient Comments: Heart rate/rhythm melatonin 3 MG tablet 3 mg PO QHS Patient Comments: Sleep magnesium oxide 400 MG tablet 400 mg PO DAILYCM Patient Comments: Supplement meclizine 25 mg tablet 25 mg PO BID PRN (Reason: dizziness) Qty: 20 0RF Discontinued metoprolol succinate 25 MG tablet 50 mg PO DAILY Patient Comments: HEART,BP amlodipine 5 MG tablet 2.5 mg PO DAILY Referrals / Follow Up: Humberto Tierney MD [Med Staff - Active Staff, Cardiology] - Within 2 Weeks Galindo Yuan MD [Primary Care Provider, Internal Medicine] - Within 1 Week Disposition Disposition (needs filled in before D/C Order can be placed): Home, Self Care Charges/Coding Visit Charges Inpatient E&M: 58667 Disch Hosp >30min
--- NOTE | 2025-10-12 16:09 | PHA.DC_ITS ---
Pharmacy [facility] Counseling Pharmacy Service has performed discharge medication reconciliation and counseling for this patient. 1. IMDUR 30MG PO DAILY 2. AMLODIPINE CHANGE TO 5MG The patient's discharge medication list was reviewed for discrepancies and discrepancies were resolved. The patient was counseled on the following discharge medications and changes in medications for homegoing were reviewed. The Reason for Use, instructions for use, and potential side effects were reviewed for all new medications. The patient's questions regarding all of their medications were answered. The patient was able to verbally demonstrate an understanding of their discharge medications. Medications at Discharge Home Medications apixaban 5 mg tablet (Eliquis) 5 mg PO BID BLOOD THINNER 05/18/16 atorvastatin 40 mg tablet 40 mg PO QHS CHOLESTEROL 05/18/16 cholecalciferol (vitamin D3) 25 mcg (1,000 unit) tablet (Vitamin D3) 1,000 unit PO DAILY SUPPLEMENT 05/18/16 pantoprazole 40 mg tablet,delayed release 40 mg PO DAILY GERD 05/18/16 nitroglycerin 0.4 mg sublingual tablet 0.4 mg sublingual Q5M PRN Chest Pain ##1 05/23/16 cyanocobalamin (vitamin B-12) 500 mcg tablet (B-12 DOTS) 1,000 mcg PO DAILY@0800 SUPPLEMENT 11/23/16 sennosides 8.6 mg-docusate sodium 50 mg tablet (Stool Softener-Stimulant Laxative) 2 tab PO DAILY STOOL SOFTENER 06/24/17 losartan 50 mg tablet 50 mg PO DAILY BP 09/18/17 dofetilide 250 mcg capsule 250 mcg PO Q12 HEART RATE 01/18/22 magnesium oxide 400 mg (241.3 mg magnesium) tablet 400 mg PO DAILYCM SUPPLEMENT 01/18/22 melatonin 3 mg tablet 3 mg PO QHS SLEEP 01/18/22 meclizine 25 mg tablet 25 mg PO BID PRN dizziness #20 tabs 08/08/22 amlodipine 5 mg tablet 5 mg PO DAILY #30 tabs 10/12/25 isosorbide mononitrate 30 mg tablet,extended release 24 hr 30 mg PO DAILY@0600 #30 tabs 10/12/25 metoprolol succinate 50 mg tablet,extended release 24 hr 50 mg PO DAILY #30 tabs 10/12/25
--- NOTE | 2025-10-19 14:02 | CL.D_ITS ---
Patient Name: JG CHAHAL Study Date: 10/12/2025 Performing: Humberto Tierney MD Ht: 67 inches 170.18 cm : 1940 Wt: 207.3 lbs 93.9 kg Age: 85 Gender: male BSA: 2.05 PROCEDURE(S) PERFORMED [id number]-([id number])LHC/COR/LV CLINICAL PROFILE AND INDICATIONS Indications: Suspected CAD Heart Failure: None Stress/Imaging Stress/Image Study Performed: No CAD Presentations: Unstable angina. CONCLUSIONS Previously placed stents noted to be patent with no evidence of high-grade in-stent stenosis. Preserved ejection fraction. RECOMMENDATIONS Recommend aggressive optimization of medical therapy. DESCRIPTION OF PROCEDURE The patient arrived to the procedure lab. The risks and benefits of the procedure as well as a full description of our services here and current unavailability of surgical backup were fully explained to the patient and/or their significant other prior to the catheterization. The Timeout was completed, verifying the correct patient and procedure. The patient's procedural site was prepped and draped in the usual fashion. Local anesthetic was given subcutaneously to right radial region with Lidocaine 2%. Using a modified Seldinger technique, arterial access was obtained via the right radial artery, a 6Fr sheath was inserted. Left Coronary Artery selective angiography was performed in multiple views using a 5 Fr. 4.0 False Pass catheter. Right Coronary Artery selective angiography was then performed in multiple views using a 5 Fr. 4.0 False Pass catheter. Left Ventriculography was performed in VARELA projection using a 5 Fr. Pigtail catheter. LV to AO pullback pressures were then recorded.The arterial sheath was pulled and a TR Band was applied for hemostasis-10 cc CORONARY ANGIOGRAPHY DOMINANCE: Right Dominant LEFT HEART ASSESSMENT Left Ventricular Ejection Fraction: by LV Gram 60 % Normal LV wall motion Normal Left Ventricular systolic function LEFT MAIN: Mild calcification, Mild luminal irregularities LEFT ANTERIOR DESCENDING ARTERY: Previously stented vessel with moderate in-stent stenosis approximately 50% in the proximal to mid region. Mid to distally mild to moderate diffuse disease noted. 2 small diagonal branches with no high-grade stenosis present. CIRCUMFLEX ARTERY: Mild luminal irregularities less than 30% RAMUS: Previously placed stent is patent, Mild luminal irregularities less than 30% RIGHT CORONARY ARTERY: Moderately calcified with mild diffuse disease but no high-grade stenosis present. COMPLICATIONS No Complications PROCEDURE MEDICATIONS Fentanyl 50 mcg IV Versed 1 mg IV Versed 1 mg IV Oxygen: 2 L/min via nasal cannula Aspirin (325mg) 1 Tabs PO @ 10/12/2025 11:59:18 Heparin given IA 10/12/2025 12:05:30 Nitro glycerin 25mg / 250ml D5W @ discontinued 10/12/2025 12:01:36 Verapamil 2.5mg, Ntg 100mcgs, 3000 units of Heparin given IA 10/12/2025 12:05:30 SUMMARY OF HEMODYNAMIC DATA Time AIR REST ECG 11:40:10 AO 113/63 (87) SA 12:11:18 LV 141/2, 10 12:17:56 LV 137/2, 8 12:18:09 LV 131/3, 11 12:19:02 LVp 130/0, 10 12:19:06 AOp 136/62 (92) 12:19:13 AIR REST 12:34:03 Signed By Humberto Tierney MD On 10/19/2025 14:01:32 Humberto Tierney MD
== END 2025-10-12 16:22 | disposition home or self-care (01) | DRG 287 ==
LOC: ED 17:13 → PCU 17:46
PROVIDERS: Internal Medicine; Admitting Provider Hospitalist; Emergency Provider Emergency Medicine; PCP Internal Medicine; Visit Provider Student in an Organized Health Care Education/Training Program
DX: I25.110 Atherosclerotic heart disease of native coronary artery with unstable angina pectoris (principal); I48.19 Other persistent atrial fibrillation; E11.22 Type 2 diabetes mellitus with diabetic chronic kidney disease; N18.31 Chronic kidney disease, stage 3a; I12.9 Hypertensive 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 4 chronic kidney disease, or unspecified chronic kidney disease; E66.811 Obesity, class 1; E78.00 Pure hypercholesterolemia, unspecified; K21.9 Gastro-esophageal reflux disease without esophagitis; Z95.5 Presence of coronary angioplasty implant and graft; Z79.899 Other long term (current) drug therapy; Z79.01 Long term (current) use of anticoagulants; Z68.31 Body mass index [BMI] 31.0-31.9, adult
CPT/HCPCS: 36415; 71045; 80048; 80061; 83036; 84484; 85025; 85610; 85730; 93005; 93306; 93458; 94660; 97802; 99152; 99153; 99284; Q9957; Q9967; A4216; C1769; C1894; C8929